=== PATIENT | male | born 1945 | race Caucasian/White ===

== ENCOUNTER 2018-01-17 14:01 | Emergency (ER) | payer OTHER ==
--- OUTSIDE RECORDS SUMMARY | 2018-01-17 14:04 | XMS REPORT | Clinical Summary ---
:1945 Author Organization [facility] Address [address] [place] [address] Care Team Providers Name Role Phone Britney Maloney MD Primary Care Provider Allergies Active Allergy Reactions Severity Noted Date Comments No Known Drug Allergies 02/26/2016 Current Medications Prescription Sig. Disp. Refills Start End Date Status Date allopurinol Take 100 mg by Active (ZYLOPRIM) 100 MG mouth 2 (two) tablet times a day. ALPRAZolam (XANAX) Take 0.5 mg by Active 0.5 MG tablet mouth nightly as needed for anxiety. aspirin (ECOTRIN) Take 81 mg by Active 81 MG enteric mouth daily. coated tablet calcium Take 1 tablet by Active carbonate-vitamin mouth 2 (two) D3 500 mg-200 unit times a day with per tablet meals. esomeprazole Take 40 mg by Active (NexIUM) 40 MG mouth daily before capsule breakfast. montelukast Take 10 mg by Active (SINGULAIR) 10 mg mouth nightly. tablet multivitamin Take 1 tablet by Active (THERAGRAN) tablet mouth daily. omega-3 acid ethyl Take 1 g by mouth Active esters (LOVAZA) 1 2 (two) times a gram capsule day. tamsulosin Take 0.4 mg by Active (FLOMAX) 0.4 mg mouth nightly. capsule,extended release 24hr thiamine 100 MG Take 100 mg by Active tablet mouth daily. ferrous sulfate Take 325 mg by Active 325 (65 FE) MG mouth daily with tablet breakfast. amLODIPine Take 5 mg by mouth Active (NORVASC) 5 MG daily. tablet metolazone Take 1 tablet (2.5 30 tablet 3 11/09/19 Active (ZAROXOLYN) 2.5 MG mg total) by mouth 6 19 tablet daily. Titrate to effect ONETOUCH ULTRA TEST 4 TIMES A DAY 400 strip 2 Active TEST strip test 7 strips blood sugar Patient testing 1 400 strip 3 Active diagnostic strips strips 4 times a 7 strip test day stripsIndications: History of heart transplant, Uncontrolled type 2 diabetes mellitus without complication, with long-term current use of insulin lancets (ONETOUCH Inject 1 Device 400 each 3 Active DELICA LANCETS) 33 into the skin 4 7 gauge (four) times a miscIndications: day. Uncontrolled diabetes mellitus type 2 without complications, unspecified fpc insulin use status predniSONE TAKE 1 & 1/2 45 tablet 11 02/06/20 Active (DELTASONE) 5 mg TABS BY MOUTH ONCE 7 18 tablet A DAY acetaminophen-code Take 1 tablet by 30 tablet 2 Active ine (TYLENOL WITH mouth nightly for 7 CODEINE #3) 300-30 90 days. DVT left mg per tablet leg pain for sleep potassium chloride Take 2 tablets (20 60 tablet 11 07/09/20 Active (K-DUR,KLOR-CON) mEq total) by 7 18 10 MEQ CR tablet mouth daily. gabapentin TAKE 1 CAPSULE 270 capsule 3 Active (NEURONTIN) 300 mg THREE TIMES DAILY 7 capsule NOVOLIN 70/30 100 INJECT 20 UNITS 40 mL 2 Active unit/mL (70-30) SUBCUTANEOUSLY IN 7 injection THE MORNING, AND 24 UNITS AT DINNER isosorbide TAKE 1 TABLET 90 tablet 3 Active mononitrate EVERY DAY 7 (IMDUR) 30 MG 24 hr tablet pravastatin TAKE 1 TABLET (80 90 tablet 3 Active (PRAVACHOL) 80 MG MG TOTAL) BY MOUTH 8 tablet EVERY EVENING. magnesium oxide Take 1 tablet (400 180 tablet 3 10/30/19 Active (MAG-OX) 400 mg mg total) by mouth 8 19 tablet 2 (two) times a day. mycophenolate TAKE 1 TABLET BY 180 tablet 3 11/03/19 Active (CELLCEPT) 500 mg MOUTH TWICE A DAY 8 19 tablet torsemide Take 1 tablet (20 180 tablet 3 11/16/19 Active (DEMADEX) 20 MG mg total) by mouth 8 19 tablet 2 (two) times a day. folic acid Take 1 tablet (1 90 tablet 3 11/16/19 Active (FOLVITE) 1 MG mg total) by mouth 8 19 tablet daily. labetalol Take 1 tablet (100 180 tablet 2 12/07/19 Active (NORMODYNE) 100 MG mg total) by mouth 8 19 tablet 2 (two) times a day. BD INSULIN SYRINGE USE TO INJECT 180 each 6 Active ULT-FINE II 0.5 mL TWICE DAILY 8 31 gauge x 02/09 syringeIndications : Uncontrolled type 2 diabetes mellitus without complication, with long-term current use of insulin tacrolimus Take 1 capsule 60 capsule 11 12/21/19 Active (PROGRAF) 0.5 MG (0.5 mg total) by 8 19 capsule mouth 2 (two) times a day. Z94.1 heart transplant potassium chloride Take 20 mEq by 07/09/20 Discontinued (K-DUR,KLOR-CON) mouth daily. 17 10 MEQ CR tablet predniSONE Take 5 mg by mouth 02/05/20 Discontinued (DELTASONE) 5 MG daily. 17 tablet labetalol Take 1 tablet (300 180 tablet 3 05/12/20 Discontinued (NORMODYNE) 300 MG mg total) by mouth 6 17 tablet 2 (two) times a day. labetalol Take 200 mg by 11/09/19 Discontinued (NORMODYNE) 200 MG mouth 2 (two) 18 tablet times a day. Pt. Takes 500 mg ( 200 mg tab + 300 mg tab) twice a day. labetalol Take 300 mg by 12/07/19 Discontinued (NORMODYNE) 300 MG mouth 2 (two) 18 tablet times a day. Pt. Takes 500 mg ( 200 mg tab + 300 mg tab) twice a day. magnesium oxide Take 400 mg by 10/25/19 Discontinued (MAG-OX) 400 mg mouth 2 (two) 18 tablet times a day. gabapentin Take 300 mg by 01/19/20 Discontinued (NEURONTIN) 300 MG mouth 2 (two) 17 capsule times a day. isosorbide Take 1 tablet (30 30 tablet 11 05/22/20 mononitrate mg total) by mouth 6 17 (IMDUR) 30 MG 24 daily. hr tablet blood sugar Patient testing 1 400 strip 5 01/19/20 Discontinued diagnostic strips strips 4 times a 6 17 strip test day stripsIndications: History of heart transplant, Uncontrolled type 2 diabetes mellitus without complication, with long-term current use of insulin lancets (ONETOUCH Inject 1 Device 400 each 3 01/19/20 Discontinued DELICA LANCETS) 33 into the skin 4 6 17 gauge (four) times a miscIndications: day. Uncontrolled diabetes mellitus type 2 without complications, unspecified steward/stewardess smoke room insulin use status pravastatin Take 1 tablet (20 30 tablet 6 08/11/20 Discontinued (PRAVACHOL) 20 MG mg total) by mouth 7 17 tablet every evening. blood sugar Test 4 times daily 400 strip 3 11/10/19 Discontinued diagnostic strips 7 18 (ONETOUCH VERIO) strip test stripsIndications: Uncontrolled type 2 diabetes mellitus without complication, with long-term current use of insulin pravastatin Take 1 tablet (80 90 tablet 3 09/30/19 Discontinued (PRAVACHOL) 80 MG mg total) by mouth 7 18 tablet every evening. insulin NPH and Per DR. Maloney 20 40 mL 3 09/02/20 Discontinued regular human am / 24 pm 7 17 (HumuLIN 70/30) 100 unit/mL (70-30) injection insulin Twice daily 200 each 6 12/18/19 Discontinued syringe-needle 7 18 U-100 (BD INSULIN SYRINGE ULTRA-FINE) 0.5 mL 31 gauge x 5/16 syringeIndications : Uncontrolled type 2 diabetes mellitus without complication, with long-term current use of insulin mycophenolate Take 1 tablet (500 180 tablet 3 11/01/19 Discontinued (CELLCEPT) 500 mg mg total) by mouth 7 18 tablet 2 (two) times a day. Z94.1 Heart Transplant 10/26/06 tacrolimus Take 1 capsule 60 capsule 11 12/21/19 Discontinued (PROGRAF) 0.5 MG (0.5 mg total) by 7 18 capsule mouth 2 (two) times a day. Z94.1 heart transplant folic acid Take 1 tablet (1 90 tablet 3 11/16/19 Discontinued (FOLVITE) 1 MG mg total) by mouth 7 18 tablet daily. torsemide Take 1 tablet (20 180 tablet 3 11/16/19 Discontinued (DEMADEX) 20 MG mg total) by mouth 7 18 tablet 2 (two) times a day. gabapentin Take 1 capsule 180 capsule 3 07/23/20 Discontinued (NEURONTIN) 300 mg (300 mg total) by 7 17 capsule mouth 3 (three) times a day. traMADol (ULTRAM) Take 1 tablet (50 60 tablet 2 05/31/20 50 mg tablet mg total) by mouth 7 17 every 12 (twelve) hours as needed for moderate pain for up to 90 days. apixaban (ELIQUIS) Take 1 tablet (2.5 60 tablet 2 08/11/20 Discontinued 2.5 mg tablet mg total) by mouth 7 17 2 (two) times a day for 90 days. sucralfate Take 10 mL (1 g 1200 mL 0 08/27/20 (CARAFATE) 100 total) by mouth 4 7 17 mg/mL suspension (four) times a day for 30 days. oseltamivir Take 1 capsule (75 20 capsule 0 11/27/19 (TAMIFLU) 75 MG mg total) by mouth 8 18 capsule 2 (two) times a day for 10 days. azithromycin Take 2 tablets 6 tablet 0 11/21/19 (ZITHROMAX Z-CHARLA) (500 mg) on Day 8 18 250 MG tablet 1, followed by 1 tablet (250 mg) once daily on Days 2 through 5. labetalol Take 1 tablet (200 180 tablet 3 12/07/19 Discontinued (NORMODYNE) 200 MG mg total) by mouth 8 18 tablet 2 (two) times a day. 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 Rapamune intolerance. Failed prednisone wean due to adrenal insufficiency FK 1 mg BID ; MMF 500 mg BID ; Prednisone 5 Failed Rapamune attempt DSA recd Date Type I Type II 11/08/2017 Cw5 3684 DP11 4641 10/12/2016 Cw5 3100 DP11 3154 11/15/2015 Cw5 4887 DP11 2993 Diabetes mellitus 02/26/2016 Overview: Diabetic/hyperlipidemia/osteopenia Followed by Dr. Maloney Gabapentin 300 mg TID for neuropathy Novolog Diabetic neuropathy 02/26/2016 Disorder of heart transplantation 02/26/2016 High Lipase Level in Serum 02/26/2016 Kidney disorder 02/26/2016 Low back pain 02/26/2016 Obstructive sleep apnea syndrome 02/26/2016 Pain of lower extremity 02/26/2016 Abnormal thyroid stimulating hormone (TSH) level 02/26/2016 Chronic kidney disease, stage V 11/14/2013 Overview: Demadex 20 daily Metolazone 2.5 -5 prn Disorder of endocrine system 11/14/2013 History of heart transplant 11/14/2013 Overview: 09/29/2006 Heart Transplant FK 1 mg Q 12; MMF 500 mg Q12hr; Prednisone 5 Does not tolerate Rapamune. Failed prednisone wean. HLD (hyperlipidemia) 11/14/2013 Overview: Diabetic/hyperlipidemia/osteopenia Fish Oil - omega 3 2000 BID Pravastain 80 Obesity, diabetes, and hypertension syndrome 11/14/2013 Adiposity 11/14/2013 Testicular hypofunction 11/14/2013 Uncontrolled type 2 diabetes mellitus 11/14/2013 Candidiasis of mouth 09/02/2012 Esophagitis 09/02/2012 Ulcer of esophagus 09/02/2012 Abdominal pain 03/03/2012 Candidiasis of esophagus 03/03/2012 Gastroesophageal reflux disease 03/03/2012 Encounters Date Type Specialty Care Team Description 01/13/2018 Orders Only Transplant Chase Roman, RN 12/20/2017 Refill Transplant Sabino, Pancho Refill PEREZ Hickey 12/17/2017 Refill Endocrinology Britney Maloney Uncontrolled type 2 MD Hany diabetes mellitus without complication, with long-term current use of insulin 12/17/2017 Refill Cardiology Donald Epstein Med Refill MD Chris 12/06/2017 Documentation Transplant Chase Roman RN 11/28/2017 Refill Cardiology Donald Epstein Med Refill MD Chris 11/23/2017 Documentation Transplant Samuel Barajasth 11/18/2017 Abstract Transplant Chase Roman RN 11/16/2017 Refill Transplant Sabino, Med Refill PEREZ Hickey 11/16/2017 Orders Only Transplant Chase Roman RN 11/12/2017 Refill Cardiology Donald Epstein Med Refill MD Chris 11/09/2017 Hospital Encounter Transplant Donald Epstein History of heart transplant (Primary Dx); MD Chris Chronic kidney disease, stage V; Diabetes mellitus due to underlying condition with chronic kidney disease, without long-term current use of insulin, unspecified CKD stage; Mixed hyperlipidemia; Essential hypertension; Long-term use of immunosuppressant medication; Diabetic autonomic neuropathy associated with type 2 diabetes mellitus; Pain of lower extremity, unspecified laterality 11/08/2017 Hospital Encounter Procedural Cardiology Donald Epstein Heart replaced by MD Chris transplant 11/08/2017 Hospital Encounter Procedural Cardiology Lucian Donald Heart replaced by flora Perez MD Complication of transplanted organ; 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 Hospital Encounter Radiology Donald Epstein Heart replaced by MD Chris transplant 11/08/2017 Hospital Encounter Radiology Lucian Donald Heart replaced by flora Perez MD Complication of transplanted organ; Essential hypertension; Long-term use of immunosuppressant medication; Metabolic syndrome; Hyperlipidemia associated with type 2 diabetes mellitus; Chronic fatigue; Infection; Bone loss 11/08/2017 Hospital Encounter Radiology Lucian Donald Heart replaced by transplant; MD Chris Complication of transplanted organ; Essential hypertension; Long-term use of immunosuppressant medication; Metabolic syndrome; Hyperlipidemia associated with type 2 diabetes mellitus; Chronic fatigue; Infection; Bone loss 11/08/2017 Hospital Encounter Radiology Lucian Donald Heart replaced by transplant; MD Chris Complication of transplanted organ; Essential hypertension; Long-term use of immunosuppressant medication; Metabolic syndrome; Hyperlipidemia associated with type 2 diabetes mellitus; Chronic fatigue; Infection 11/08/2017 Hospital Encounter Transplant Lucian Donald Heart replaced by transplantKuldip Perez MD Complication of transplanted organ; Essential hypertension; Long-term use of immunosuppressant medication; Metabolic syndrome; Hyperlipidemia associated with type 2 diabetes mellitus; Chronic fatigue; Infection; Bone loss; Prostate cancer screening; Cytomegalovirus infection, unspecified cytomegaloviral infection type 11/08/2017 Ancillary Orders Transplant Donald Epstein Heart replaced by transplant; MD Chris Complication of transplanted organ; 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 Orders Only Transplant Chase Roman, Heart replaced by art editor (Primary Dx) 11/08/2017 Ancillary Orders Radiology Donald Epstein Heart replaced by MD Chris transplant 11/04/2017 Refill Transplant Pan, Med Refill Nikkita 11/03/2017 Telephone Transplant Tyree Anetaharry, Med Refill MA 11/01/2017 Refill Cardiology Donald Epstein Refill MD Chris 10/25/2017 Refill Cardiology Donald Epstein Med Refill MD Chris 10/21/2017 Orders Only Transplant Chase Roman, Heart replaced by transplant (Primary Dx); RN Complication of transplanted organ; Cardiac allograft vasculopathy 09/30/2017 Refill Endocrinology Britney Maloney MD 09/23/2017 Orders Only Transplant Chase Roman, Heart replaced by transplant (Primary Dx); RN Complication of transplanted organ; Essential hypertension; Long-term use of immunosuppressant medication; Metabolic syndrome; Hyperlipidemia associated with type 2 diabetes mellitus; Chronic fatigue; Infection; Prostate cancer screening; Cytomegalovirus infection, unspecified cytomegaloviral infection type; Bone loss 09/16/2017 Refill Cardiology Donald Epstein Refminerva Perez MD 09/15/2017 Office Visit Gastroenterology Jaleesa, Epigastric pain ( Primary Dx); Gallito Moses Gastroesophageal reflux disease without esophagitis 09/02/2017 Refill Endocrinology Britney Maloney MD 08/26/2017 Documentation Gastroenterology Gallito Lazcano MD 08/23/2017 Hospital Encounter Gastroenterology Greg Spicer MD 08/23/2017 Anesthesia Event Gastroenterology Mark Madsen MD 08/23/2017 Procedure Pass Gastroenterology 08/23/2017 Surgery Gastroenterology STORMY Spicer with Bx Greg Adames MD 08/13/2017 Telephone Gastroenterology Gallito Lazcano MD 08/11/2017 Documentation Transplant Chase Roman EGD Cardiac Clearance RN 08/11/2017 Documentation Transplant Chase Roman, Error MELINDA 08/10/2017 Telephone Gastroenterology Gallito Lazcano MD 08/05/2017 Emergency Emergency Medicine Ayala, Chest pain, unspecified type (Primary Dx); [facility] Pastor, Chronic kidney disease, stage V 08/05/2017 Hospital Encounter Gastroenterology Greg Spicer MD Trachtenberg, Barry, MD 08/05/2017 Anesthesia Event Gastroenterology Dustin Street MD 08/05/2017 Procedure Pass Gastroenterology 08/02/2017 Orders Only Gastroenterology Gallito Lazcano MD 08/02/2017 Telephone Gastroenterology Antonieta Dumont LVN 08/02/2017 Documentation Transplant Chase Roman RN 08/02/2017 Telephone Transplant Davina Espinosa, Chest Pain MA 07/30/2017 Hospital Encounter Radiology Aaron Desai, Pain of upper abdomen 07/28/2017 Office Visit Gastroenterology Jaleesa, Pain of upper abdomen Gallito Moses (Primary Dx) 07/23/2017 Refill Endocrinology Britney Maloney MD 07/22/2017 Documentation Transplant Chase Roman, GI Referral - RN Gastrology 07/20/2017 Office Visit Endocrinology Britney Maloney Uncontrolled type 2 diabetes mellitus without complication, with long-term current use of insulin ( Primary Dx); MD Hany Mixed hyperlipidemia; Chronic kidney disease, stage V; History of heart transplant; Abnormal thyroid stimulating hormone (TSH) level; Diabetic autonomic neuropathy associated with type 2 diabetes mellitus; Testicular hypofunction; Vitamin D deficiency 07/09/2017 Orders Only Chase Willard RN 07/05/2017 Refill Cardiology Donald Epstein MD 03/03/2017 Documentation Chase Willard RN 03/02/2017 Hospital Encounter Transplant Donald Epstein Heart replaced by transplant (Primary Dx); MD Chris Chronic fatigue; Long-term use of immunosuppressant medication; Essential hypertension; Acute deep vein thrombosis (DVT) of tibial vein of left lower extremity 03/02/2017 Hospital Encounter Transplant Donald Epstein Long-term use of immunosuppressant medication; MD Chris CRF (chronic renal failure), stage 3 (moderate); Essential hypertension; Heart replaced by transplant 03/02/2017 Hospital Encounter Procedural Cardiology Minal, Deep vein thrombosis MD Yash (DVT) of both lower extremities, unspecified chronicity, unspecified vein 03/02/2017 Orders Only Transplant Chase Roman, Heart replaced by transplant (Primary Dx); RN Essential hypertension; CRF (chronic renal failure), stage 3 (moderate); Long-term use of immunosuppressant medication 02/26/2017 Orders Only Transplant Chase Roman, Deep vein thrombosis RN (DVT) of both lower extremities, unspecified chronicity, unspecified vein (Primary Dx) 02/26/2017 Documentation Transplant Chase Roman, RN 02/26/2017 Telephone Transplant Davis, Left leg circulation PEREZ Diaz issues 02/04/2017 Refill Cardiology Donald Epstein Refminerva Perez MD 01/18/2017 Office Visit Endocrinology Britney Maloney Uncontrolled type 2 diabetes mellitus without complication, with long-term current use of insulin ( Primary Dx); MD Hany Mixed hyperlipidemia; Chronic kidney disease, stage V; History of heart transplant; Abnormal thyroid stimulating hormone (TSH) level; Diabetic autonomic neuropathy associated with type 2 diabetes mellitus; Testicular hypofunction 01/18/2017 Documentation Transplant Chase Roman, RN after 01/16/2017 Family History Medical History Relation Name Comments Heart disease Brother Heart disease Father Heart disease Mother Relation Name Status Comments Brother Father Mother Social History Tobacco Use Types Packs/Day Years Used Date Never Smoker Smokeless Tobacco: Former User Alcohol Use Drinks/Week oz/Week Comments Yes occ Sex Assigned at Date Recorded Not on file Last Filed Vital Signs Vital Sign Reading Time Taken Blood Pressure 124/70 11/09/2017 11:29 AM [employer] Pulse 85 11/09/2017 11:29 AM [employer] Temperature 36.5 C (97.7 F) 11/09/2017 11:29 AM [employer] Respiratory Rate 17 11/09/2017 11:29 AM [employer] Oxygen Saturation 96% 11/09/2017 11:29 AM [employer] Inhaled Oxygen Concentration - - Weight 89.9 kg (198 lb 3.2 oz) 11/09/2017 11:29 AM [employer] Height 175.3 cm (5' 9") 11/09/2017 11:29 AM [employer] Body Mass Index 29.27 11/09/2017 11:29 AM [employer] Plan of Treatment Date Type Specialty Care Team Description 04/20/2018 Office Visit Endocrinology Britney Maloney MD [address] [place] [address] [phone] Health Maintenance Due Date Last Done Comments COLONOSCOPY 1993 ZOSTER VACCINE 2003 PNEUMOCOCCAL POLYSACCHARIDE VACCINE 2008 AGE 65 AND OVER PNEUMOCOCCAL-13 2008 INFLUENZA VACCINE 04/27/2018 OPHTHALMOLOGY EXAM 07/06/2018 07/06/2017, 06/15/2016, 06/27/2015 FOOT EXAM 07/20/2018 07/20/2017, 07/20/2017, 10/12/2016, Additional history exists Procedures Procedure Name Priority Date/Time Associated Diagnosis Comments ECHOCARDIOGRAM 2D Routine 11/08/2017 3:44 Heart replaced by Results for this COMPLETE W MMODE PM [employer] transplant procedure are in SPECTRAL COLOR DOPPLER the results (48169) section. CV STRESS TEST NUCLEAR Routine 11/08/2017 12:19 Heart replaced by Results for this CARDIO PM [employer] transplant procedure are in Complication of the results transplanted organ section. Cardiac allograft vasculopathy EGD with Bx 08/23/2017 8:00 Chronic GERD AM [employer] after 01/16/2017 Results Echocardiogram complete w contrast and 3D if needed (11/08/2017 3:44 PM) Specimen Performing Laboratory [facility] [address] [place] [address] Narrative Echocardiography Report [address] [address], [place] [address] Pat.Name:TAQUERIA JENKINS [facility].ID:[id number] .Date: 11/08/2017 Refer.MD:DONALD EPSTEIN MD Exam Time: 3:44:00 PMStudy Type:Routine Echo Height:70inWeight:193lb BSA: 2.06 m2 DOBAge:1945,72Y Sex: MALEBP:179/87 HR:82 bpm Sonogrphr: Nadira Rodriguez RDCS, RVT Pat. Stat.:OutpatientRoom:Treatment 3 Study Status:Final Echo Event ID:[id number] Order ID:[id number] Reason for Study:VAD and Cardiac Transplantation - Monitoring for rejection in a cardiac transplant recipient; 11 years post heart transplant History / Clinical:Arrhythmias, COPD, Heart Transplant Procedures:2D Echo, Colorflow Doppler, Intravenous Optison Contrast Race:C SUMMARY: LV EF is normal. RV systolic function is normal. LV filling pressure is normal. LV respiratory variation is present - unknown etiology. RV respiratory variation is present - unknown etiology. Estimated PA systolic pressure is 51 mmHg, assuming a mean RAP of 10 mmHg. FINDINGS: LV: LV size is normal. LV EF is normal. Overall wall motion is normal.Estimated EF is 60-64%. RV: RV size is normal. RV systolic function is normal. RV wall motionis normal. LA: LA volume is enlarged. RA: RA volume is enlarged. AO: Aortic root diameter is normal. ROSLYN: No pericardial effusion. AV: No structural AV abnormalities noted. MV: No structural MV abnormalities noted. PV: No structural PV abnormalities noted. A trace of pulmonic regurgitation. TV: No structural TV abnormalities noted. Mild tricuspid regurgitation Mascorro: LV relaxation is reduced, appropriate for age. LV filling pressureis normal. LV respiratory variation is present - unknownetiology. RV respiratory variation is present - unknownetiology. Other:Estimated PA systolic pressure is 51 mmHg, assuming a mean RAPof 10 mmHg. MEASUREMENTS: 2D Parasternal Long [place] Ao An2 cmLVPWd0.9 cm LVOT 1.8 cmLA Ds4.8 cm LVIDd4.7 cmIndex 2.3 cm/m Ao Rtd 3 cm Index1.5 cm/m LVIDs3 cm LV Wskr293.4 g(122-174) LV%fs 36.5 % LVM Index 82.2 g/m2 IVSd 1.2 cmRWT0.4 LA Sng Plane LA Area 29.5 cm2(8.8-23.4) LA Vol 89 ml Index43.2 ml/m LA LngAx 7.9 cm Signed 11/09/2017 06:19 PM Meaghan Feliciano M.D. Procedure Note Interface, Radiology Results In - 11/09/2017 6:19 PM [employer] Echocardiography Report [address] [place] [address] Pat.Name: TAQUERIA JENKINS Pat.ID: [id number] .Date: 11/08/2017 Refer.MD: DONALD EPSTEIN MD Exam Time: 3:44:00 PM Study Type:Routine Echo Height: 70in Weight: 193lb BSA: 2.06 m2 Age: 2 1945,72Y Sex: MALE BP: 179/87 HR: 82 bpm Sonogrphr: Nadira Rodriguez RDCS, RVT Pat. Stat.:Outpatient Room: Treatment 3 Study Status:Final Echo Event ID:[id number] Order ID: [id number] Reason for Study:VAD and Cardiac Transplantation - Monitoring for rejection in a cardiac transplant recipient; 11 years post heart transplant History / Clinical:Arrhythmias, COPD, Heart Transplant Procedures:2D Echo, Colorflow Doppler, Intravenous Optison Contrast Race: C SUMMARY: LV EF is normal. RV systolic function is normal. LV filling pressure is normal. LV respiratory variation is present - unknown etiology. RV respiratory variation is present - unknown etiology. Estimated PA systolic pressure is 51 mmHg, assuming a mean RAP of 10 mmHg. FINDINGS: LV: LV size is normal. LV EF is normal. Overall wall motion is normal. Estimated EF is 60-64%. RV: RV size is normal. RV systolic function is normal. RV wall motion is normal. LA: LA volume is enlarged. RA: RA volume is enlarged. AO: Aortic root diameter is normal. ROSLYN: No pericardial effusion. AV: No structural AV abnormalities noted. MV: No structural MV abnormalities noted. PV: No structural PV abnormalities noted. A trace of pulmonic regurgitation. TV: No structural TV abnormalities noted. Mild tricuspid regurgitation Mascorro: LV relaxation is reduced, appropriate for age. LV filling pressure is normal. LV respiratory variation is present - unknown etiology. RV respiratory variation is present - unknown etiology. Other: Estimated PA systolic pressure is 51 mmHg, assuming a mean RAP of 10 mmHg. MEASUREMENTS: 2D Parasternal Long [place] Ao An 2 cm LVPWd 0.9 cm LVOT 1.8 cm LA Ds 4.8 cm LVIDd 4.7 cm Index 2.3 cm/m Ao Rtd 3 cm Index 1.5 cm/m LVIDs 3 cm LV Mass 169.4 g (122-174) LV%fs 36.5 % LVM Index 82.2 g/m2 IVSd 1.2 cm RWT 0.4 LA Sng Plane LA Area 29.5 cm2 (8.8-23.4) LA Vol 89 ml Index 43.2 ml/m LA LngAx 7.9 cm Signed 11/09/2017 06:19 PM Meaghan Feliciano M.D. Cv exercise treadmill stress (no imaging) (11/08/2017 12:19 PM) Component Value Ref Range Resting HR 76 Resting BP 179 Peak MET Achieved 1.0 Protocol Name REGADENO Time in Exercise Phase 00:01:00 Max Systolic BP 181 Max Diastolic BP 86 Max Heart Rate 114 Max Predicted Heart Rate 146 Target HR Formula (220 - Age)*100% Test Indication S/P HEART TRANSPLANT Arrhy During Ex ECG Interp Before EX ECG Interp During Ex Ex Summary Comment Overall HR Response to Exercise Overall BP Response To Exercise Reason for Termination Stress Test Impression -Waveform interpreted in report associated with image study. No interpretation is provided as part of this Stress ECG report.-Electronically Signed By Lola BLANK, Justen Matias ([id number]), science editor Key Scott ([id number]) on 11/08/2017 1:36:13 PM Specimen Performing Laboratory [facility] MUSE [address] [place] [id number] Stress test with myocardial perfusion (11/08/2017 12:19 PM) Specimen Performing Laboratory [facility] [address] [place] [address] Narrative Nuclear Cardiology and Cardiac CT [address] [place] [address] Myocardial Perfusion Imaging Report Stress ECG tracings are available in [employer], [employer] and [employer] All ECG interpretations are included in this report Pat.Name:TAQUERIA JENKINS TPat.ID:[id number] .Date: 11/08/2017 Refer.MD:DONALD EPSTEIN MD Exam Time: 11:16:00 AM Study Type:Myocardial Perfusion Imaging Height:69inWeight:193lb BSA: 2.04 m2 DOBAge:1945,72Y Sex: MALEBP:179/87 HR:74 bpm Nuclear Tech:NOVA StraussMT, ARRT(N), Giselle Jackson, ARRT, NMTCB Pat. Stat.:OutpatientNuclear Event ID:[id number] Order ID:[id number] Reason for Study:Annual Post Heart Transplant Evaluation History / Clinical:Heart Transplant, Congestive heart failure, Coronary artery disease, Diabetes, Family history CAD, Hypertension Procedures:Stress only Race: Risk Factors:Diabetes, Cardiovascular Disease, Hypertension, Family history of cardiovascular disease Clinical Symptoms:Regadenoson Physical Exam:S1, S2 Surgery: Outpatient Medications:Amlodipine, Aspirin, Zaroxyln, Imdur, Demadex, Folic acid, Model 3, Thiamine, Insulin, Labetolol SUMMARY: SCINTIGRAPHIC RESULTS Perfusion Defect Size (% LV) 0 % Total 0 % Ischemia 0 % Scar Left Ventricular Perfusion Results There is normal tracer distribution throughout the myocardium during stress. Gated SPECT Results The post-stress left ventricular ejection fraction is 73 % with normal regional wall motion and left ventricular thickening.Left ventricular end-diastolic volume is 75 ml; end-systolic volume is20 ml. The left ventricle is of normal size at stress.The right ventricle is of normal size with normal wall motion. Conclusion Normal regadenoson Tc-99m tetrofosmin myocardial perfusion study. The left ventricular ejection fraction is normal.Thre is evidence of right ventricular hypertrophy. Comments Patients with a normal stress myocardial perfusion study have a low (< 1%) annual risk of cardiac or nonfatal myocardial infarction. Study Quality/Artifacts The study quality is good. The mild reduction in mid and basal inferior wall counts during stress is probably due to diaphragmatic and other soft tissue attenuation artifacts rather than coronary artery disease. Comparison to Previous Study None available. STRESS: Baseline Vital Signs:Intervention: Regadenoson 0.4mg/5ml IV over 10 seconds followed by radiotracer injection and 5ml saline flush ECG: Normal Sinus Rhythm HR:74 BP:179/87 Stress Test Results: Target HR: 124 Symptoms and Complications: Arrhythmias: None Terminated: As per Regadenoson protocol Symptoms:Palpitations, Shortness of breath Complications: None Conclusions: Normal heart rate response to pharmacological stress, Normal blood pressure response to pharmacological stress Stress ECG Interp: No ischemic ST segment change occurred with stress. Signed 11/08/2017 05:50 PM Justen Davila MD Procedure Note Interface, Radiology Results In - 11/08/2017 5:50 PM [facility] Nuclear Cardiology and Cardiac CT [address] [address] Myocardial Perfusion Imaging Report Stress ECG tracings are available in [employer], [employer] and [employer] All ECG interpretations are included in this report Pat.Name: TAQUERIA JENKINS Pat.ID: [id number] .Date: 11/08/2017 Refer.MD: DONALD EPSTEIN MD Exam Time: 11:16:00 AM Study Type:Myocardial Perfusion Imaging Height: 69in Weight: 193lb BSA: 2.04 m2 Age: 2 1945,72Y Sex: MALE BP: 179/87 HR: 74 bpm Nuclear Tech:Grecia Urias, SWITCHBOARD CLERK, ARRT(N), Giselle Jackson, ARRT, NMTCB Pat. Stat.:Outpatient Nuclear Event ID:[id number] Order ID: [id number] Reason for Study:Annual Post Heart Transplant Evaluation History / Clinical:Heart Transplant, Congestive heart failure, Coronary artery disease, Diabetes, Family history CAD, Hypertension Procedures:Stress only Race: Risk Factors:Diabetes, Cardiovascular Disease, Hypertension, Family history of cardiovascular disease Clinical Symptoms:Regadenoson Physical Exam:S1, S2 Surgery: Outpatient Medications:Amlodipine, Aspirin, Zaroxyln, Imdur, Demadex, Folic acid, Model 3, Thiamine, Insulin, Labetolol SUMMARY: SCINTIGRAPHIC RESULTS Perfusion Defect Size (% LV) 0 % Total 0 % Ischemia 0 % Scar Left Ventricular Perfusion Results There is normal tracer distribution throughout the myocardium during stress. Gated SPECT Results The post-stress left ventricular ejection fraction is 73 % with normal regional wall motion and left ventricular thickening. Left ventricular end-diastolic volume is 75 ml; end-systolic volume is 20 ml. The left ventricle is of normal size at stress. The right ventricle is of normal size with normal wall motion. Conclusion Normal regadenoson Tc-99m tetrofosmin myocardial perfusion study. The left ventricular ejection fraction is normal. Thre is evidence of right ventricular hypertrophy. Comments Patients with a normal stress myocardial perfusion study have a low (< 1%) annual risk of cardiac or nonfatal myocardial infarction. Study Quality/Artifacts The study quality is good. The mild reduction in mid and basal inferior wall counts during stress is probably due to diaphragmatic and other soft tissue attenuation artifacts rather than coronary artery disease. Comparison to Previous Study None available. STRESS: Baseline Vital Signs: Intervention: Regadenoson 0.4mg/5ml IV over 10 seconds followed by radiotracer injection and 5ml saline flush ECG: Normal Sinus Rhythm HR: 74 BP: 179/87 Stress Test Results: Target HR: 124 Symptoms and Complications: Arrhythmias: None Terminated: As per Regadenoson protocol Symptoms: Palpitations, Shortness of breath Complications: None Conclusions: Normal heart rate response to pharmacological stress, Normal blood pressure response to pharmacological stress Stress ECG Interp: No ischemic ST segment change occurred with stress. Signed 11/08/2017 05:50 PM Justen Davila MD XR Chest 2 Vw (11/08/2017 9:58 AM)Only the most recent of2 resultswithin the time period is included. Specimen Performing Laboratory [facility] [address] [place] [address] Narrative Study:XR CHEST 2 VW History: Z94.1 Heart transplant status, T86.90 Unspecified complication of unspecified transplanted organ and tissue, Cough COMPARISON: August 05, 2017 IMPRESSION: 2 views of the chest.There is no focal consolidation, pleural effusion or pneumothorax.Cardiac silhouette is normal.Visualized osseous structures arestable. [id number] Procedure Note Interface, Radiology Results Incoming - 11/08/2017 10:14 AM STORAGE BATTERY TESTER Study:XR CHEST 2 VW History: Z94.1 Heart transplant status, T86.90 Unspecified complication of unspecified transplanted organ and tissue, Cough COMPARISON: August 05, 2017 IMPRESSION: 2 views of the chest. There is no focal consolidation, pleural effusion or pneumothorax. Cardiac silhouette is normal. Visualized osseous structures are stable. [id number] Bone Density Peripheral (11/08/2017 9:58 AM) Specimen Performing Laboratory [facility] [address] [place] [address] Narrative EXAMINATION:BONE DENSITY PERIPHERAL CLINICAL HISTORY:Z94.1 Heart transplant status COMPARISON:10/12/2016 Impression: 1.See accession #IM [id number]. [id number] Procedure Note Hm Interface, Radiology Results Incoming - 11/08/2017 10:29 AM STORAGE BATTERY TESTER EXAMINATION: BONE DENSITY PERIPHERAL CLINICAL HISTORY: Z94.1 Heart transplant status COMPARISON: 10/12/2016 Impression: 1. See accession #[id number]. [id number] Bone Density (11/08/2017 9:56 AM) Specimen Performing Laboratory [facility] [address] [place] [address] Narrative EXAMINATION:BONE DENSITY CLINICAL HISTORY: 72 years Male Z94.1 Heart transplant status, T86.90 Unspecified complication of unspecified transplanted organ and tissue, osteoporosis by previous imiaging COMPARISON:10/12/2016 The results of this study expressed as bone mineral density (BMD) were as follows: AP spine (L1-L4) BMD: 1.653 g/cm2 T-Score: 3.4 Z-Score: 3.6 Percent change: +1.6 Dual Femur (Total Mean): BMD: 1.036 g/cm2 T-Score: -0.4 Z-Score:0.2 Percent change: -2.3 Left Forearm (Radius 33%): BMD: 0.946 g/cm2 T-Score: -0.4 Z-Score: 0.5 Percent change: +1.7 Trabecular Bone Score (TBS): TBS L1-L4: 1.472,(>1.350 normal, 1.200-1.350 partially degraded microarchitecture, <1.200 degraded microarchitecture) The 10 year probability of fracture, adjusted for FRAX: Major Osteoporotic Fracture: 8.4% Hip Fracture:2.7% Femur FRAX: Risk factors: Chronic glucocorticoid 10 year probability of fracture: 1.Major osteoporotic: 10.1% 2.Hip: 3.1% 3.Based on femur left neck BMD Impression: 1.WHO classification normal based on T-scores above. Notes: *The world health organization (WHO) has classified the patient's T-score as follows: At or above (-1) as normal (-1) to (-2.5) as low (osteopenia) At or below (-2.5) as abnormally low (osteoporosis, increased fracture risk) For premenopausal women, men under the age 50 years, and children the WHO classification does not apply. In these individuals please assess bone mineral density with Z scores for each skeletal site examined. Z scores above -2.0: Within expected range for age. Z scores lower than -2.0:Low bone density for age. The TBS is derived from the texture of the DEXA image and has been shown to be related to bone microarchitecture and fracture risk. This data provides information independent of BMD value; is used as a complement to the data obtained from the DEXA analysis and the clinical examination. The TBS can assist the healthcare professional in assessment of fracture risk and in monitoring the effect of treatments on patient over time. [id number]-[id number] Procedure Note Hm Interface, Radiology Results Incoming - 11/08/2017 10:28 AM STORAGE BATTERY TESTER EXAMINATION: BONE DENSITY CLINICAL HISTORY: 72 years Male Z94.1 Heart transplant status, T86.90 Unspecified complication of unspecified transplanted organ and tissue, osteoporosis by previous imiaging COMPARISON: 10/12/2016 The results of this study expressed as bone mineral density (BMD) were as follows: AP spine (L1-L4) BMD: 1.653 g/cm2 T-Score: 3.4 Z-Score: 3.6 Percent change: +1.6 Dual Femur (Total Mean): BMD: 1.036 g/cm2 T-Score: -0.4 Z-Score: 0.2 Percent change: -2.3 Left Forearm (Radius 33%): BMD: 0.946 g/cm2 T-Score: -0.4 Z-Score: 0.5 Percent change: +1.7 Trabecular Bone Score (TBS): TBS L1-L4: 1.472, (>1.350 normal, 1.200-1.350 partially degraded microarchitecture, <1.200 degraded microarchitecture) The 10 year probability of fracture, adjusted for FRAX: Major Osteoporotic Fracture: 8.4% Hip Fracture: 2.7% Femur FRAX: Risk factors: Chronic glucocorticoid 10 year probability of fracture: 1. Major osteoporotic: 10.1% 2. Hip: 3.1% 3. Based on femur left neck BMD Impression: 1. WHO classification normal based on T-scores above. Notes: *The world health organization (WHO) has classified the patient's T-score as follows: At or above (-1) as normal (-1) to (-2.5) as low (osteopenia) At or below (-2.5) as abnormally low (osteoporosis, increased fracture risk) For premenopausal women, men under the age 50 years, and children the WHO classification does not apply. In these individuals please assess bone mineral density with Z scores for each skeletal site examined. Z scores above -2.0: Within expected range for age. Z scores lower than -2.0: Low bone density for age. The TBS is derived from the texture of the DEXA image and has been shown to be related to bone microarchitecture and fracture risk. This data provides information independent of BMD value; is used as a complement to the data obtained from the DEXA analysis and the clinical examination. The TBS can assist the healthcare professional in assessment of fracture risk and in monitoring the effect of treatments on patient over time. [id number] US Abdomen Complete (11/08/2017 9:00 AM) Specimen Performing Laboratory [address] [address] Narrative EXAM: US ABDOMEN COMPLETE CLINICAL DATA:Z94.1 Heart transplant status, T86.90 Unspecified complication of unspecified transplanted organ and tissue, ABDOMINAL PAIN COMPARISON: Abdominal ultrasound dated October 12, 2016 FINDINGS: PANCREAS:The visualized portions of the pancreas are within normal limits. LIVER:The liver demonstrates normal echogenicity without focal mass or intrahepatic biliary ductal dilatation. GALLBLADDER:has been surgically removed. CBD:6.5 mm, within normal limits. MPV:Doppler evaluation of the portal vein demonstrates normal hepatopedal flow. measuring 1.2 cm. SPLEEN: The spleen is homogeneous and not enlarged [id number] x 3.9 x 3.8 cm. RIGHT KIDNEY: There is increased echogenicity of renal cortices. There is no evidence of mass, calculi, or hydronephrosis.The right kidney measures 11.5 x 4.9 x 4.7 cm. There is a simple cyst measuring 12 mm largest diameter. LEFT KIDNEY:There is increased echogenicity of renal cortices. There is no evidence of mass, calculi, or hydronephrosis. The left kidney measures 13.1 x 5.3 x 4.8 cm. AORTA:Atherosclerotic changes. There is moderate dilatation of right common iliac artery measuring 3 cm. IVC:The visualized portions of the inferior vena cava are unremarkable. IMPRESSION: 1.Negative for acute intra-abdominal process. 2. There is a simple cyst seen within the right kidney measuring 12 mm. 3. There is a cyst seen within the right liver lobe measuring 3.5 cm. 4. Increased echogenicity of renal cortices suggestive for chronic medical kidney disease. Please correlate to renal function tests. 5. Atherosclerotic changes of the aorta. 6. Moderate dilatation of right common iliac artery measuring approximately 3 cm. [id number] Procedure Note Hm Interface, Radiology Results Incoming - 11/08/2017 11:48 AM STORAGE BATTERY TESTER EXAM: US ABDOMEN COMPLETE CLINICAL DATA: Z94.1 Heart transplant status, T86.90 Unspecified complication of unspecified transplanted organ and tissue, ABDOMINAL PAIN COMPARISON: Abdominal ultrasound dated October 12, 2016 FINDINGS: PANCREAS: The visualized portions of the pancreas are within normal limits. LIVER: The liver demonstrates normal echogenicity without focal mass or intrahepatic biliary ductal dilatation. GALLBLADDER: has been surgically removed. CBD: 6.5 mm, within normal limits. MPV: Doppler evaluation of the portal vein demonstrates normal hepatopedal flow. measuring 1.2 cm. SPLEEN: The spleen is homogeneous and not enlarged measuring 12.2 x 3.9 x 3.8 cm. RIGHT KIDNEY: There is increased echogenicity of renal cortices. There is no evidence of mass, calculi, or hydronephrosis. The right kidney measures 11.5 x 4.9 x 4.7 cm. There is a simple cyst measuring 12 mm largest diameter. LEFT KIDNEY: There is increased echogenicity of renal cortices. There is no evidence of mass, calculi, or hydronephrosis. The left kidney measures 13.1 x 5.3 x 4.8 cm. AORTA: Atherosclerotic changes. There is moderate dilatation of right common iliac artery measuring 3 cm. IVC: The visualized portions of the inferior vena cava are unremarkable. IMPRESSION: 1. Negative for acute intra-abdominal process. 2. There is a simple cyst seen within the right kidney measuring 12 mm. 3. There is a cyst seen within the right liver lobe measuring 3.5 cm. 4. Increased echogenicity of renal cortices suggestive for chronic medical kidney disease. Please correlate to renal function tests. 5. Atherosclerotic changes of the aorta. 6. Moderate dilatation of right common iliac artery measuring approximately 3 cm. [id number] Urinalysis screen and microscopy, with reflex to culture (11/08/2017 7:07 AM) Component Value Ref Range Specimen site Clean catch Color, UA Straw Appearance, UA Clear Specific gravity, UA 1.013 1.001 - 1.035 pH, UA 7.0 5.0 - 8.5 Protein, UA 2+ (A) Negative Glucose, UA Negative Negative Ketones, UA Negative Negative Bilirubin, UA Negative Negative Blood, UA Negative Negative Nitrite, UA Negative Negative Urobilinogen, UA <2.0 <2.0 Leukocyte esterase, UA Negative Negative WBC, UA <1 0 - 1 /HPF RBC, UA None seen 0 - 1 /HPF Bacteria, UA None seen None seen Yeast, UA None seen Yeast with pseudohyphae, UA None seen Hyaline casts, UA 10 /LPF Specimen Performing Laboratory Urine [facility] DEPARTMENT OF PATHOLOGY AND GENOMIC MEDICINE [address] [place] [address] Microalbumin, urine, random (11/08/2017 7:07 AM) Component Value Ref Range Total volume, urine No volume mL Urine creatinine concentration 96 mg/dL Urine microalbumin concentration 26.1 mg/dL Urine microalbumin/creatinine ratio 272 (H) 0 - 30 mg/g Specimen Performing Laboratory Urine [facility] DEPARTMENT OF PATHOLOGY AND GENOMIC MEDICINE [address] [place] [address] Cytomegalovirus by PCR (11/08/2017 7:07 AM) Component Value Ref Range Cytomegalovirus by PCR Not-Detected Not-Detected IU/mL Cytomegalovirus by PCR See link below for PDF Lab ReportComment: Specimen Performing Laboratory [facility] DEPARTMENT OF PATHOLOGY AND GENOMIC MEDICINE [address] [place] [address] Estimated GFR (11/08/2017 7:07 AM)Only the most recent of3 resultswithin the time period is included. Component Value Ref Range GFR Non Af Amer 33 (A) mL/min/1.73 m2 GFR Af Amer 40 (A) mL/min/1.73 m2 Comment: Chronic kidney disease: <60 mL/min/1.73m2 Kidney failure: <15 mL/min/1.73m2 The estimated GFR is calculated from the IDMS-traceable Modification of Diet in Renal Disease Equation. The accuracy of the calculation is poor when the creatinine is normal. Calculated values >90 mL/min/1.73m2 are not reported. This equation has not been validated in children (<18 years), women, the elderly (>70 years), or ethnic groups other than Caucasians and Americans. Specimen Performing Laboratory Plasma specimen [facility] DEPARTMENT OF PATHOLOGY AND [facility] MEDICINE [address] [place] [address] Donor specific antibody (11/08/2017 7:07 AM) Component Value Ref Range Donor specific antibody See link below for PDF Lab Report Specimen Performing Laboratory [facility] DEPARTMENT OF PATHOLOGY AND [address] [address] FK506 level (11/08/2017 7:07 AM)Only the most recent of2 resultswithin the time period is included. Component Value Ref Range FK506 level 5.9 ng/mL Comment: Therapeutic range 5-20 ng/mL for 12 hour trough. The range varies depending on the organ transplanted, time after transplantation and co-administered immunosuppressant therapies. Please use clinical judgment to interpret test result. Test performed using [employer] chemiluminescent microparticle immunoassay for Tacrolimus on the [employer] i System. Specimen Performing Laboratory Blood [facility] PATHOLOGY [address] [address] Troponin (11/08/2017 7:07 AM)Only the most recent of3 resultswithin the time period is included. Component Value Ref Range Troponin <0.30 0.00 - 0.30 ng/mL Comment: 0.30 - 1.49 ng/mlMay indicate increased risk of acute coronary syndrome. >=1.5 ng/mlConsistent with acute myocardial infarction. The diagnostic value of a single normal or non-diagnostic result is questionable.Serial samples at 2-6 hour intervals are required to rule out acute myocardial injury. Specimen Performing Laboratory Plasma specimen [facility] DEPARTMENT PATHOLOGY AND [address] [address] Hepatitis acute panel (11/08/2017 7:07 AM) Component Value Ref Range Hepatitis A IgM Non-reactive Non-reactive Hepatitis B core IgM Non-reactive Non-reactive Hepatitis B surface Ag Non-reactive Non-reactive Hepatitis C Ab Non-reactive Non-reactive Specimen Performing Laboratory Blood [facility] OF PATHOLOGY AND [facility] MEDICINE [address] [place] [address] Vitamin D 25 hydroxy level (11/08/2017 7:07 AM) Component Value Ref Range Vitamin D, 25-hydroxy 45.3 30.0 - 150.0 ng/mL Comment: This assay reports the sum of 25-hydroxy vitamin D3 and 25-hydroxy vitamin D2. Reference range: 0-17 years: Deficiency: less than 20ng/mL Optimum level: greater than or equal to 20 ng/mL. 18 years and older: Deficiency: less than 20ng/mL Insufficiency: 20-29 ng/mL Optimum Level: 30-80 ng/mL The assay reportable range is 3.4155.9 ng/mL. Levels higher than 150 ng/mL may be associated with toxicity. If toxicity is clinically suspected and the reported result is >155.9 ng/mL,contact lab for alternative methods to obtain a definitivelevel. If separate quantitation of 25-hydroxy vitamin D3 and 25-hydroxy vitamin D2 is needed, please contact lab for alternative methods. Specimen Performing Laboratory Blood [facility] DEPARTMENT OF PATHOLOGY AND GENOMIC MEDICINE [address] [place] [address] HIV 1, 2 antibody (11/08/2017 7:07 AM) Component Value Ref Range HIV 1, 2 antibody Non-reactive Non-reactive Comment: Starting from December 24 2015, 4th generation HIV screening and confirmation assays are in use at [facility] [facility], consistent with the CDC-recommended algorithm. The screening test detects antibodies to HIV-1, HIV-2 and the p24 antigen. Positive screening results will be automatically reflexed to a HIV-1/HIV-2 differentiation assay. Indeterminant HIV-1 results will be further automatically reflexed to a nucleic acid test for detection of acute infection. Western blot will no longer be performed as a confirmation test. For a quick reference guide on the testing algorithm, please refer to: http://stacks.cdc.gov/view/cdc/16685. Specimen Performing Laboratory Blood [facility] DEPARTMENT OF PATHOLOGY AND GENOMIC MEDICINE [address] [place] [address] Prothrombin time with INR (11/08/2017 7:07 AM)Only the most recent of2 resultswithin the time period is included. Component Value Ref Range Prothrombin time 14.4 12.0 - 15.0 sec INR 1.1 Comment: The International Normalized Ratio (INR) is a therapeutic monitoring tool for patients who are stable on oral anticoagulant therapy. An INR of 2.0-3.0 is suggested for deep vein thrombosis/pulmonary embolism. Specimen Performing Laboratory Blood [facility] DEPARTMENT OF PATHOLOGY AND [facility] MEDICINE [address] [place] [address] CBC with platelet and differential (11/08/2017 7:07 AM)Only the most recent of3 resultswithin the time period is included. Component Value Ref Range WBC 5.98 4.50 - 11.00 k/uL RBC 4.31 (L) 4.40 - 6.00 m/uL HGB 13.6 (L) 14.0 - 18.0 g/dL HCT 42.6 41.0 - 51.0 % MCV 98.8 82.0 - 100.0 fL MCH 31.6 27.0 - 34.0 pg MCHC 31.9 31.0 - 37.0 g/dL RDW - SD 46.9 37.0 - 55.0 fL MPV 11.1 8.8 - 13.2 fL Platelet count 137 (L) 150 - 400 k/uL Nucleated RBC 0.00 /100 WBC Neutrophils 64.8 39.0 - 69.0 % Lymphocytes 22.9 (L) 25.0 - 45.0 % Monocytes 10.9 (H) 0.0 - 10.0 % Eosinophils 0.8 0.0 - 5.0 % Basophils 0.3 0.0 - 1.0 % Immature granulocytes 0.3Comment: "Immature granulocytes" 0.0 - 1.0 % (promyelocytes, myelocytes, metamyelocytes) Specimen Performing Laboratory Blood [facility] DEPARTMENT OF PATHOLOGY AND [address] [address] Urine culture (11/08/2017 7:07 AM) Component Value Ref Range Urine culture SEE COMMENTComment: Bacteriuria screen negative. Specimen Performing Laboratory [facility] DEPARTMENT OF PATHOLOGY AND GENOMIC MEDICINE [address] [place] [address] Uric acid level (11/08/2017 7:07 AM) Component Value Ref Range Uric acid 5.1 3.4 - 7.0 mg/dL Specimen Performing Laboratory Plasma specimen [facility] DEPARTMENT OF PATHOLOGY AND GENOMIC MEDICINE [address] [place] [address] T3, free (11/08/2017 7:07 AM) Component Value Ref Range T3, free 3.3 2.4 - 4.2 pg/mL Comment: REFERENCE INTERVAL: Triiodothyronine, Free (Free T3) Access complete set of age- and/or gender-specific reference intervals for this test in the [facility] ([employer]). Performed by [employer], [address] [place] [address] www.[employer], Tommy Mckenzie MD - Lab. Director Specimen Performing Laboratory Serum [facility] [address] [place] [address] T3 (11/08/2017 7:07 AM) Component Value Ref Range T3 128 80 - 200 ng/dL Specimen Performing Laboratory Plasma specimen [facility] DEPARTMENT [facility]Y [facility] [address] [place] [address] Thyroid stimulating hormone (11/08/2017 7:07 AM) Component Value Ref Range TSH 3.37 0.27 - 4.20 uIU/mL Specimen Performing Laboratory Plasma specimen [facility] DEPARTMENT [facility]Y [facility] [address] [place] [address] T4 (11/08/2017 7:07 AM) Component Value Ref Range T4 6.4 4.5 - 11.7 ug/dL Specimen Performing Laboratory Plasma specimen [facility] DEPARTMENT [facility]Y [facility] [address] [place] [address] Testosterone (11/08/2017 7:07 AM) Component Value Ref Range Testosterone 195 193 - 740 ng/dL Specimen Performing Laboratory Plasma specimen [facility] DEPARTMENT OF PATHOLOGY AND [facility] MEDICINE [address] [place] [address] Prostate specific antigen (11/08/2017 7:07 AM) Component Value Ref Range PSA 1.2 0.0 - 4.0 ng/mL Comment: The KEESHA 8000 PSA immunoassay was used. Results obtained with different assay methods or kits should not be used interchangeably and may be different. Specimen Performing Laboratory Plasma specimen [facility] DEPARTMENT PATHOLOGY [facility] GENOMIC MEDICINE [address] [place] [address] Phosphorus level (11/08/2017 7:07 AM)Only the most recent of2 resultswithin the time period is included. Component Value Ref Range Phosphorus 3.2 2.4 - 4.5 mg/dL Specimen Performing Laboratory Plasma specimen [facility] DEPARTMENT OF PATHOLOGY [facility] GENOMIC MEDICINE [address] [place] [address] Parathyroid hormone (11/08/2017 7:07 AM) Component Value Ref Range PTH 99 (H) 15 - 65 pg/mL Specimen Performing Laboratory Blood [facility] DEPARTMENT PATHOLOGY AND [address] [address] B natriuretic peptide (11/08/2017 7:07 AM)Only the most recent of2 resultswithin the time period is included. Component Value Ref Range BNP 82 0 - 100 pg/mL Specimen Performing Laboratory Blood [facility] PATHOLOGY AND [address] [address] Magnesium level (11/08/2017 7:07 AM)Only the most recent of2 resultswithin the time period is included. Component Value Ref Range Magnesium 2.0 1.6 - 2.4 mg/dL Specimen Performing Laboratory Plasma specimen [facility] PATHOLOGY [address] [address] LDH (11/08/2017 7:07 AM)Only the most recent of2 resultswithin the time period is included. Component Value Ref Range LDH 179 87 - 225 U/L Specimen Performing Laboratory Plasma specimen [address] [address] Hemoglobin A1c (11/08/2017 7:07 AM) Component Value Ref Range Hemoglobin A1C 6.4 (H) 4.0 - 5.6 % Comment: HbA1c cutoffs for diagnosing diabetes: 4.0% - 5.6%=normal 5.7% - 6.4%=increased risk for diabetes (prediabetes) >=6.5%=diabetes Goals for glycemic control (ADA 2016) < 7.0%Target for non adults with diabetes. More or less stringent targets may be appropriate for individual patients. <7.5% Target for Children and adolescents with type 1 diabetes. Specimen Performing Laboratory Blood [facility] PATHOLOGY AND [address] [address] Ionized calcium (11/08/2017 7:07 AM) Component Value Ref Range pH 7.38 Ionized calcium 1.24 1.11 - 1.32 mmol/L Specimen Performing Laboratory Plasma specimen [address] [address] Hepatic function panel (11/08/2017 7:07 AM)Only the most recent of2 resultswithin the time period is included. Component Value Ref Range Albumin 3.9 3.5 - 5.0 g/dL Total bilirubin 0.5 0.0 - 1.2 mg/dL Bilirubin direct <0.2 0.0 - 0.3 mg/dL Alkaline phosphatase 60 40 - 129 U/L Protein 8.0 6.3 - 8.3 g/dL Comment: 4.6-7.0 g/dL 1 week 4.4-7.6 g/dL 7 months-1year5.1-7.3 g/dL 1-2 years5.6-7.5 g/dL >3 years6.0-8.0 g/dL 18-150 6.3-8.3 g/dL ALT 10 5 - 50 U/L AST 16 10 - 50 U/L Specimen Performing Laboratory Plasma specimen [facility] DEPARTMENT OF PATHOLOGY AND GENOMIC MEDICINE [address] [place] [address] Lipid panel (11/08/2017 7:07 AM) Component Value Ref Range Cholesterol 180 <200 mg/dL Triglycerides 208 (H) <150 mg/dL HDL cholesterol 47 >40 mg/dL LDL cholesterol 103 (H)Comment: Result obtained by direct <100 mg/dL LDL measurement Lipid panel interpretation SeeBelow Comment: Total Cholesterol (mg/dL) <200 Desirable [phone] >=240High Triglycerides (mg/dL) <150 Normal [id number]-[id number] 200-499High >=500Very high HDL Cholesterol (mg/dL) <40Low (male) <40Low (female) LDL Cholesterol (mg/dL) <100 Optimal 100-129Near or above optimal [id number]-nssa 160-189High >=190Very high Risk Catergories that modify LDL goals. Risk CatergoriesLDL goal (mg/dL) CHD and CHD risk equivalent<100 (10-year risk >20%) Multiple (2+) risk factors <130 (10-year risk=<20%) 0-1 risk factors <160 (<10-year risk) Defining levels of lipids in metabolic syndrome Triglycerides>=150 mg/dL HDL Cholesterol Men<40 mg/dL Women<40 mg/dL Non-HDL cholesterol is a second target for therapy in persons with high triglycerides (>=200 mg/dL) Specimen Performing Laboratory Plasma specimen [facility] DEPARTMENT OF PATHOLOGY AND GENOMIC MEDICINE [address] [place] [address] Basic metabolic panel (11/08/2017 7:07 AM)Only the most recent of2 resultswithin the time period is included. Component Value Ref Range Sodium 143 135 - 148 mEq/L Potassium 4.3 3.5 - 5.0 mEq/L Chloride 97 (L) 98 - 112 mEq/L CO2 33 (H) 24 - 31 mEq/L Anion gap 13 7 - 15 mEq/L Comment: Starting from December , anion gap calculation no longer incorporates potassium. Please note the change. BUN 39 (H) 8 - 23 mg/dL Creatinine 2.0 (H) 0.7 - 1.2 mg/dL Glucose 93 65 - 99 mg/dL Calcium 10.5 (H) 8.8 - 10.2 mg/dL Specimen Performing Laboratory Plasma specimen [facility] DEPARTMENT OF PATHOLOGY AND GENOMIC MEDICINE [address] [place] [address] Surgical pathology request (08/23/2017 10:50 AM) Component Value Ref Range Surgical pathology report See link below for PDF Lab Report Result status This is Final Report to [id number] Specimen Performing Laboratory [facility] DEPARTMENT OF PATHOLOGY AND GENOMIC MEDICINE [address] [place] [address] POC glucose (08/23/2017 7:49 AM)Only the most recent of3 resultswithin the time period is included. Component Value Ref Range POC glucose 104 (H) 65 - 99 mg/dL Comment: [facility] Notified RN TM Notified Meter ID: [id number] Automatic Mold Sander: Kerry Leos Specimen Performing Laboratory [facility] DEPARTMENT OF PATHOLOGY AND GENOMIC MEDICINE [address] [place] [address] ECG ED Preliminary Interpretation - NOT AN ORDER (08/19/2017 1:53 PM) MOSHE Sanabria 08/18/20173:14 PM ECG ED Preliminary Interpretation - Not an Order Performed by: JULIET GARCIAS Authorized by: TIMO AYALAH ECG reviewed by ED Physician in the absence of a supplier diversity director: yes Previous ECG: Previous ECG:Compared to current Similarity:No change Interpretation: Interpretation: normal Rate: ECG rate:73 ECG rate assessment: normal Rhythm: Rhythm: sinus rhythm Ectopy: Ectopy: none QRS: QRS axis:Normal QRS intervals:Normal Conduction: Conduction: normal ST segments: ST segments:Normal T waves: T waves: normal Lipase level (08/05/2017 2:00 PM) Component Value Ref Range Lipase 24 13 - 60 U/L Specimen Performing Laboratory Plasma specimen [facility] DEPARTMENT OF PATHOLOGY AND [address] [address] Amylase level (08/05/2017 2:00 PM) Component Value Ref Range Amylase 23 13 - 53 U/L Specimen Performing Laboratory Plasma specimen [facility] DEPARTMENT OF PATHOLOGY AND [facility] MEDICINE [address] [place] [address] Comprehensive metabolic panel (08/05/2017 2:00 PM) Component Value Ref Range Sodium 146 135 - 148 mEq/L Potassium 4.3 3.5 - 5.0 mEq/L Chloride 101 98 - 112 mEq/L CO2 30 24 - 31 mEq/L Anion gap 15 7 - 15 mEq/L Comment: Starting from December , anion gap calculation no longer incorporates potassium. Please note the change. BUN 38 (H) 8 - 23 mg/dL Creatinine 2.0 (H) 0.7 - 1.2 mg/dL Glucose 112 (H) 65 - 99 mg/dL Calcium 10.0 8.8 - 10.2 mg/dL Protein 7.8 6.3 - 8.3 g/dL Comment: [place] 4.6-7.0 g/dL 1 week 4.4-7.6 g/dL 7 months-1year5.1-7.3 g/dL 1-2 years5.6-7.5 g/dL >3 years6.0-8.0 g/dL 18-150 6.3-8.3 g/dL Albumin 4.1 3.5 - 5.0 g/dL A/G ratio 1.1 0.7 - 3.8 Alkaline phosphatase 92 40 - 129 U/L AST 31 10 - 50 U/L ALT 38 5 - 50 U/L Total bilirubin 0.8 0.0 - 1.2 mg/dL Specimen Performing Laboratory Plasma specimen [facility] DEPARTMENT OF PATHOLOGY AND [address] [address] ECG 12 lead (08/05/2017 11:15 AM) Component Value Ref Range Ventricular rate 73 Atrial rate 73 PA interval 154 QRSD interval 86 QT interval 384 QTC interval 423 P axis 1 34 QRS axis 1 70 T wave axis 81 EKG impression Normal sinus rhythm-Normal ECG-In automated comparison with ECG of 02-MAR-2017 08:40,-No significant change was found- Specimen Performing Laboratory [facility] MUSE [address] [place] [address] CT Abdomen Wo Contrast (07/30/2017 4:45 PM) Specimen Performing Laboratory [facility] [address] [place] [address] Narrative EXAMINATION:CT ABDOMEN WO CONTRAST CLINICAL HISTORY:R10.10 Upper abdominal painunspecified, Exclude presence of bowel loops in the ventral hernia (pt with intermittent epigastric pain and a large ventral hernia) TECHNIQUE:Multiple axial images of the abdomen were obtained without intravenous contrast. Sagittal and coronal computerized reformatted images were also obtained. The lack of intravenous contrast reduces the sensitivity of detecting solid organ disease.CT imaging was performed with iterative reconstruction technique and/or automated exposure control to reduce radiation dose. COMPARISON:11/26/2010 FINDINGS: Abdomen: Heart size is upper limits normal. There is mild left hemidiaphragmatic elevation. Lung bases are unremarkable. Hypodensity in the right hepatic lobe is probably a cyst. It measures 2.5 cm. The patient is status post cholecystectomy. Pancreas, spleen, adrenals, and kidneys are normal in appearance. Atherosclerotic calcifications of the aorta are present. There is an IVC filter. 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 The left common iliac artery is also ectatic to 1.9 cm. Bilateral atherosclerotic changes are present. Suspicious osseous lesion is not seen. No definite ventral hernia is seen. A small right lateral questionable muscular defect is seen without bulging of fat through it or evidence bowel within. Images are not carried through to the pelvis. IMPRESSION: No evidence ventral hernia seen on CT abdomen. Images are not carried through to the pelvis. Very tiny questionable area of muscular defect in the far right lateral abdomen at the level of the upper pelvis without evidence of herniated fat or bowel. [facility]-[id number] Procedure Note Interface, Radiology Results Incoming - 07/30/2017 5:40 PM CDT EXAMINATION: CT ABDOMEN WO CONTRAST CLINICAL HISTORY: R10.10 Upper abdominal pain unspecified, Exclude presence of bowel loops in the ventral hernia (pt with intermittent epigastric pain and a large ventral hernia) TECHNIQUE:Multiple axial images of the abdomen were obtained without intravenous contrast. Sagittal and coronal computerized reformatted images were also obtained. The lack of intravenous contrast reduces the sensitivity of detecting solid organ disease.CT imaging was performed with iterative reconstruction technique and/ or automated exposure control to reduce radiation dose. COMPARISON: 11/26/2010 FINDINGS: Abdomen: Heart size is upper limits normal. There is mild left hemidiaphragmatic elevation. Lung bases are unremarkable. Hypodensity in the right hepatic lobe is probably a cyst. It measures 2.5 cm. The patient is status post cholecystectomy. Pancreas, spleen, adrenals, and kidneys are normal in appearance. Atherosclerotic calcifications of the aorta are present. There is an IVC filter. 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 The left common iliac artery is also ectatic to 1.9 cm. Bilateral atherosclerotic changes are present. Suspicious osseous lesion is not seen. No definite ventral hernia is seen. A small right lateral questionable muscular defect is seen without bulging of fat through it or evidence bowel within. Images are not carried through to the pelvis. IMPRESSION: No evidence ventral hernia seen on CT abdomen. Images are not carried through to the pelvis. Very tiny questionable area of muscular defect in the far right lateral abdomen at the level of the upper pelvis without evidence of herniated fat or bowel. [facility]-[id number] POC glycosylated hemoglobin (Hb A1C) (07/20/2017 9:21 AM)Only the most recent of2 resultswithin the time period is included. Component Value Ref Range POC Hemoglobin A1C 6.0 % Specimen Performing Laboratory Blood Pv duplex venous lower extremity (03/02/2017 9:12 AM) Specimen Performing Laboratory [facility] [address] [place] [address] Narrative Vascular Ultrasound Laboratory Lower Extremity Venous Report [id number]Name:Nathan JENKINS.ID:[id number] .Date: 03/02/2017Refer.MD:YASH MILLER MD Exam Time: 8:07:00 AMStudy Type:LE Venous Height:69inWeight:194lb BSA: 2.04 m2 DOBAge:1945,71Y Sex: MALESonogrphr: Juan Garner RN, RVS Pat. Stat.:OutpatientRoom:[place] TapeVol: PM, CPT - 4: 30073 Echo Event ID:[id number] Order ID:[id number] Reason for Study:Left popliteal fossa pain for 2-3 months. Left hip and calf pain for 1 month. History of heart transplant in 2006 with IVC filter placement for DVT. Race:C SUMMARY: * Normal Reflux Criteria:< 0.5 seconds * Abnormal Reflux Criteria:> or equal to 0.5 seconds DUPLEX SCAN OBSERVATIONS Deep VeinsSuperficial Veins RightLeft RightLeft GSV (prox) Surgically RemovedSurgically Removed CFV Incompetent Incompetent (above knee) Femoral Normal Normal GSV (dist) Normal Normal Profunda Incompetent Normal (below knee) Popliteal Incompetent Normal PT (prox) Normal PartialSSV Normal Normal PT (dist) Normal Normal Peroneal Normal Normal RIGHT:There is normal compressibility with no evidence of echogenic material noted within the lumen of the visualized veins. Colorflow and Doppler signalsdemonstrate venous reflux of the common femoral vein, profunda femoris vein and the popliteal vein. LEFT:A focal segment of a posterior tibial vein in the proximal calf is partially compressible with echogenic material in the lumen. The remaining visualized veins are compressible with no evidence of echogenic material in the lumen. Colorflow and Doppler signalsdemonstrate venous reflux of the common femoral vein. PRELIMINARY FINDINGS 1. Thrombosis of a focal segment of a left posterior tibial vein in the proximal calf. 2. Venous incompetence of the common femoral vein, bilaterally. 3. Venous incompetence of the right profunda femoris vein and the popliteal vein. PHYSICIAN INTERPRETATION Venous examination of the both lower extremities demonstrated a venous thrombosis in the of a focal segment of a left posterior tibial vein.Venousrefkux seen inthe common femoral vein, bilaterally and in the right profunda femoris vein and the popliteal vein. Signed 03/02/2017 11:38 AM Terry Manjarrez MD, RPVI Procedure Note Interface, Radiology Results In - 03/02/2017 11:39 AM CDT Vascular Ultrasound Laboratory Lower Extremity Venous Report [id number] [address] Pat.Name: TAQUERIA JENKINS.ID: [id number] St.Date: 03/02/2017 Refer.MD: YASH MILLER MD Exam Time: 8:07:00 AM Study Type:LE Venous Height: 69in Weight: 194lb BSA: 2.04 m2 Age: 2 1945,71Y Sex: MALE Sonogrphr: Juan Garner RN, RVS Pat. Stat.:Outpatient Room: [facility] Vol: PM, CPT - 4: 55093 Echo Event ID:[id number] Order ID: [id number] Reason for Study:Left popliteal fossa pain for 2-3 months. Left hip and calf pain for 1 month. History of heart transplant in 2006 with IVC filter placement for DVT. Race: C SUMMARY: * Normal Reflux Criteria: < 0.5 seconds * Abnormal Reflux Criteria: > or equal to 0.5 seconds DUPLEX SCAN OBSERVATIONS Deep Veins Superficial Veins Right Left Right Left GSV (prox) Surgically Removed Surgically Removed CFV Incompetent Incompetent (above knee) Femoral Normal Normal GSV (dist) Normal Normal Profunda Incompetent Normal (below knee) Popliteal Incompetent Normal PT (prox) Normal Partial SSV Normal Normal PT (dist) Normal Normal Peroneal Normal Normal RIGHT: There is normal compressibility with no evidence of echogenic material noted within the lumen of the visualized veins. Colorflow and Doppler signals demonstrate venous reflux of the common femoral vein, profunda femoris vein and the popliteal vein. LEFT: A focal segment of a posterior tibial vein in the proximal calf is partially compressible with echogenic material in the lumen. The remaining visualized veins are compressible with no evidence of echogenic material in the lumen. Colorflow and Doppler signals demonstrate venous reflux of the common femoral vein. PRELIMINARY FINDINGS 1. Thrombosis of a focal segment of a left posterior tibial vein in the proximal calf. 2. Venous incompetence of the common femoral vein, bilaterally. 3. Venous incompetence of the right profunda femoris vein and the popliteal vein. PHYSICIAN INTERPRETATION Venous examination of the both lower extremities demonstrated a venous thrombosis in the of a focal segment of a left posterior tibial vein. Venous refkux seen in the common femoral vein, bilaterally and in the right profunda femoris vein and the popliteal vein. Signed 03/02/2017 11:38 AM Terry Manajrrez MD, RPVI after 01/16/2017 Insurance Payer Benefit Plan / Group Subscriber ID Type Phone Address MEDICARE MEDICARE PART A AND B xxxxxxxxxx [place], [place] [id number] MED SUPP xxxxxxxxxx [address] [phone] [place], [place] [phone]
[2018-01-17] MEDS ORDERED: NA CHLORIDE 0.9% 500 ML ONE (14:49)
[2018-01-17] MEDS ORDERED: ONDANSETRON 4 MG/2 ML VIAL ONE (14:49)
[2018-01-17] MEDS ORDERED: AMPICILLIN/SULBACTAM 3GM/VIAL ONE (14:50)
[2018-01-17] MEDS ORDERED: NA CHLORIDE 0.9% 100 ML IV ONE (14:50)
[2018-01-17] MEDS ORDERED: ACETAMINOPHEN 500 MG TAB ONE (14:50)
[2018-01-17 14:58] LABS: Absolute Lymphocytes (CBC) 1.1 K/uL (0.7-4.9); Absolute Monocytes 0.8 K/uL (0.1-1.3); Absolute Neutrophil 9.3 K/uL (1.8-8.0); Basophils % 0.5 % (0-1.3); Eosinophils % 0.1 % (0-4.4); Hematocrit 44.3 % (39.6-49.0); Lymphocytes % 9.9 % (15.3-44.8); MCH 31.7 pg (27.0-35.0); MCV 97.2 fL (80-100); MPV 9.3 fL (7.6-11.3); Monocytes % 7.1 % (3.3-12.3); RBC Red Blood Cell Count 4.56 M/uL (4.33-5.43)
[2018-01-17 15:04] LABS: Protime INR 1.1
[2018-01-17 15:15] LABS: Potassium 4.1 mEq/L (3.6-5.0)
[2018-01-17 15:21] LABS: Albumin 4.5 g/dL (3.2-5.5); Bilirubin Direct 0.2 mg/dL (0-0.2); Bilirubin Total 0.9 mg/dL (0.3-1.2); Magnesium 1.8 mg/dL (1.8-2.5); Uric Acid 5.5 mg/dL (4.8-8.7)
[2018-01-17] MEDS ORDERED: FENTANYL CITR 100 MCG/2 ML ONE (15:44)
--- NOTE | 2018-01-17 15:54 | RAD REPORT ---
EXAM DESCRIPTION: RAD - Chest Single View - 01/17/2018 2:52 pm CLINICAL HISTORY: Cough COMPARISON: July 2017 TECHNIQUE: AP portable chest image was obtained 1445 hours . FINDINGS: No peripheral mass or consolidation identifiable. Trachea is midline. Minimal stranding in the lower left lung field has not changed. Sternotomy wires are in place. Heart and vasculature are normal. No measurable pleural effusion and no pneumothorax. No gross bony abnormality seen. No acute aortic findings suspected. IMPRESSION: No acute cardiopulmonary process. No significant interval change.
--- NOTE | 2018-01-17 15:55 | EDPHYS ---
Physician Documentation [facility] Name: Octavio Bueno Age: 72 yrs Sex: Male : 1945 Arrival Date: 01/17/2018 Time: 14:04 Bed 30 Private MD: out of town, doctor ED Physician Steven Esquivel HPI: 01/17 15:48 This 72 yrs old Male presents to ER via Wheelchair with complaints of Hand rob Pain. 15:48 The patient or guardian reports decreased range of motion, pain, swelling, tenderness. rob The complaints affect the right hand diffusely. Context: The problem was sustained at home. Onset: The symptoms/episode began/occurred 1 day(s) ago. Modifying factors: The symptoms are alleviated by nothing, the symptoms are aggravated by movement, dependent position. Associated signs and symptoms: Pertinent positives: fever. Severity of symptoms: At their worst the symptoms were moderate, in the emergency department the symptoms are unchanged. The patient has not experienced similar symptoms in the past. Historical: - Allergies: 14:11 NKA; iw - Home Meds: 14:11 allopurinol 100 mg Oral tab 1 tab 2 times per day [Active]; alprazolam 0.5 mg Oral tab iw 1 tab daily [Active]; amlodipine 5 mg tab 1 tab once daily [Active]; aspirin 81 mg Oral TbEC 1 tab once daily [Active]; CellCept 500 mg Oral tab 1 tabs 2 times per day [Active]; ferrous sulfate 325 mg (65 mg iron) Oral tab daily [Active]; folic acid 1 mg Oral tab 1 tab once daily [Active]; gabapentin 300 mg Oral cap 1 cap 3 times per day [Active]; isosorbide mononitrate 30 mg Oral Tb24 1 tab once daily [Active]; labetalol 300 mg Oral tab 1 tab 2 times per day [Active]; magnesium oxide 400 mg Oral tab twice a day [Active]; metolazone 2.5 mg Oral tab 1 tab once daily [Active]; Nexium 40 mg Oral cpDR 1 cap once daily [Active]; Novolin 70/30 In[place]let Sub-Q 70-30 unit/mL twice a day [Active]; potassium chloride 10 mEq Oral cpER 1 cap once daily [Active]; pravastatin 40 mg Oral tab 1 tab once daily [Active]; prednisone 5 mg Oral tab once daily [Active]; Prograf 0.5 mg Oral cap every 12 hours [Active]; Singulair 10 mg Oral tab 1 tab once daily [Active]; tamsulosin 0.4 mg Oral cp24 1 cap once daily [Active]; torsemide 20 mg Oral tab 2 tabs once daily [Active]; - PMHx: 14:11 Diabetes - IDDM; Gout; Myocardial infarction; iw - PSHx: 14:11 heart transplant 2006; iw - Immunization history:: Adult Immunizations Last tetanus immunization: < 10 years ago. - Social history:: Smoking status: Patient/guardian denies using tobacco. - Family history:: not pertinent. ROS: 15:48 Constitutional: Negative for fever, chills, and weight loss, Eyes: Negative for injury, rob pain, redness, and discharge, ENT: Negative for injury, pain, and discharge, Neck: Negative for injury, pain, and swelling, Cardiovascular: Negative for chest pain, palpitations, and edema, Respiratory: Negative for shortness of breath, cough, wheezing, and pleuritic chest pain, Abdomen/GI: Negative for abdominal pain, nausea, vomiting, diarrhea, and constipation, Back: Negative for injury and pain, : Negative for injury, bleeding, discharge, and swelling, Neuro: Negative for headache, weakness, numbness, tingling, and seizure, Psych: Negative for depression, anxiety, suicide ideation, homicidal ideation, and hallucinations, Allergy/Immunology: Negative for hives, rash, and allergies, Endocrine: Negative for neck swelling, polydipsia, polyuria, polyphagia, and marked weight changes, Hematologic/Lymphatic: Negative for swollen nodes, abnormal bleeding, and unusual bruising. 15:48 MS/extremity: Positive for decreased range of motion, pain, swelling, tenderness, of the right hand. Exam: 15:48 Head/Face: Normocephalic, atraumatic. Eyes: Pupils equal round and reactive to light, rob extra-ocular motions intact. Lids and lashes normal. Conjunctiva and sclera are non-icteric and not injected. Cornea within normal limits. Periorbital areas with no swelling, redness, or edema. ENT: Nares patent. No nasal discharge, no septal abnormalities noted. Tympanic membranes are normal and external auditory canals are clear. Oropharynx with no redness, swelling, or masses, exudates, or evidence of obstruction, uvula midline. Mucous membranes moist. Neck: Trachea midline, no thyromegaly or masses palpated, and no cervical lymphadenopathy. Supple, full range of motion without nuchal rigidity, or vertebral point tenderness. No Meningismus. Chest/axilla: Normal chest wall appearance and motion. Nontender with no deformity. No lesions are appreciated. Respiratory: Lungs have equal breath sounds bilaterally, clear to auscultation and percussion. No rales, rhonchi or wheezes noted. No increased work of breathing, no retractions or nasal flaring. Abdomen/GI: Soft, non-tender, with normal bowel sounds. No distension or tympany. No guarding or rebound. No evidence of tenderness throughout. Back: No spinal tenderness. No costovertebral tenderness. Full range of motion. Male : Normal genitalia with no discharge or lesions. Skin: Warm, dry with normal turgor. Normal color with no rashes, no lesions, and no evidence of cellulitis. MS/ Extremity: Pulses equal, no cyanosis. Neurovascular intact. Full, normal range of motion. Neuro: Awake and alert, GCS 15, oriented to person, place, time, and situation. Cranial nerves II-XII grossly intact. Motor strength 5/5 in all extremities. Sensory grossly intact. Cerebellar exam normal. Normal gait. Psych: Awake, alert, with orientation to person, place and time. Behavior, mood, and affect are within normal limits. 15:48 Constitutional: The patient appears febrile, in obvious distress, mildly distressed. 15:48 Musculoskeletal/extremity: ROM: full passive range of motion, limited active range of motion, Circulation is intact in all extremities. Sensation intact. Compartment Syndrome exam of affected extremity: is normal. DVT Exam: negative Homans' sign noted on exam, no appreciated bluish discoloration, no increased warmth, pain, swelling, tenderness. Vital Signs: 14:09 BP 136 / 81; Pulse 110; Resp 20 S; Temp 99.5(TE); Pulse Ox 94% on R/A; Weight 86.18 kg; iw Height 5 ft. 9 in. (175.26 cm); Pain 10/10; 14:15 Temp 101.7(O); tl3 16:36 BP 130 / 71; Pulse 107; Resp 20; Temp 103.7(O); Pulse Ox 96% on 3 lpm NC; tl3 18:05 BP 99 / 51; Pulse 97; Resp 18; Temp 102.6(O); Pulse Ox 97% on 3 lpm NC; tl3 18:30 BP 99 / 51; Pulse 98; Resp 18; Pulse Ox 97% on 3 lpm NC; tl3 19:00 BP 112 / 87; Pulse 92; Resp 18; Pulse Ox 97% 3 lpm ; tl3 14:09 Body Mass Index 28.06 (86.18 kg, 175.26 cm) iw MDM: 14:15 Patient medically screened. [facility] 15:48 Data reviewed: vital signs, nurses notes, lab test result(s), EKG, radiologic studies, rob plain films. 01/17 14:17 Order name: Basic Metabolic Panel; Complete Time: 15:46 [facility] 01/17 14:17 Order name: BNP; Complete Time: 15:46 [facility] 01/17 14:17 Order name: CBC with Diff; Complete Time: 15:46 [facility] 01/17 14:17 Order name: Ckmb; Complete Time: 15:46 [facility] 01/17 14:17 Order name: CPK; Complete Time: 15:46 [facility] 01/17 14:17 Order name: LFT's; Complete Time: 15:46 [facility] 01/17 14:17 Order name: Magnesium; Complete Time: 15:46 [facility] 01/17 14:17 Order name: PT-INR; Complete Time: 15:46 [facility] 01/17 14:17 Order name: Ptt, Activated; Complete Time: 15:46 [facility] 01/17 14:17 Order name: Troponin (emerg Dept Use Only); Complete Time: 15:46 [facility] 01/17 14:17 Order name: XRAY Chest (1 view); Complete Time: 16:14 [facility] 01/17 14:17 Order name: Hand Left 3 View XRAY; Complete Time: 16:14 [facility] 01/17 14:17 Order name: Blood Culture Adult (2) 01/17 14:17 Order name: Uric Acid; Complete Time: 15:46 [facility] 01/17 14:17 Order name: EKG; Complete Time: 14:18 [facility] 01/17 14:17 Order name: Cardiac monitoring; Complete Time: 18:04 [facility] 01/17 14:17 Order name: EKG - Nurse/Tech; Complete Time: 18:04 [facility] 01/17 14:17 Order name: IV Saline Lock; Complete Time: 18:05 [facility] 01/17 14:17 Order name: Labs collected and sent; Complete Time: 18:05 [facility] 01/17 14:17 Order name: O2 Per Protocol; Complete Time: 18:05 [facility] 01/17 14:17 Order name: O2 Sat Monitoring; Complete Time: 18:05 [facility] 01/17 14:17 Order name: Urine Dipstick-Ancillary (obtain specimen); Complete Time: 18:05 [facility] Administered Medications: 14:50 Drug: NS 0.9% 500 ml Route: IV; Rate: bolus; Site: right antecubital; Delivery: Primary tl3 tubing; 15:50 Follow up: IV Status: Completed infusion; IV Intake: 500ml tl3 14:50 Drug: Unasyn 3 grams Route: IVPB; Infused Over: 30 mins; Site: right forearm; tl3 15:50 Follow up: IV Status: Completed infusion; IV Intake: 100ml tl3 14:50 Drug: Tylenol 1000 mg Route: PO; tl3 16:27 Follow up: Response: No adverse reaction tl3 15:00 Drug: Zofran 4 mg Route: IVP; Site: right forearm; tl3 19:03 Follow up: Response: No adverse reaction tl3 15:15 Drug: fentaNYL (PF) 25 mcg Route: IVP; Infused Over: 3 mins; Site: right forearm; tl3 15:50 Drug: NS 0.9% 1000 ml Route: IV; Rate: 125 ml/hr; Site: right antecubital; Delivery: tl3 Primary tubing; 19:44 Follow up: IV Status: Completed infusion; IV Intake: 500ml tl3 16:00 Drug: fentaNYL (PF) 25 mcg Route: IVP; Infused Over: 3 mins; Site: right forearm; tl3 16:33 Follow up: Response: No adverse reaction; Pain is decreased tl3 16:52 Drug: vancoMYCIN 1 grams Route: IVPB; Infused Over: 2 hrs; Site: right forearm; tl3 19:02 Follow up: IV Status: Completed infusion; IV Intake: 250ml tl3 19:02 Drug: fentaNYL (PF) 25 mcg Route: IVP; Site: right forearm; tl3 19:25 Follow up: Response: No adverse reaction; Marked relief of symptoms tl3 19:02 Drug: Tylenol 650 mg Route: PO; tl3 19:25 Follow up: Response: No adverse reaction tl3 Disposition: 01/17/18 15:55 Transfer ordered to [facility]. Diagnosis are Cellulitis and acute lymphangitis of other parts of limb - right , dorsum hand, right, Transplanted organ and tissue status, unspecified - cardiac transport, Fever, unspecified, Unspecified kidney failure. - Reason for transfer: Higher level of care. - Accepting physician is to dr glen gregorio [facility]. - Condition is Fair. - Problem is new. - Symptoms have improved. Signatures: Dispatcher [employer] EDSteven Bob MD MD cha Williams, Irene, RN RN Nuvia Self RN RN tl3
--- NOTE | 2018-01-17 15:55 | RAD REPORT ---
EXAM DESCRIPTION: RAD - Hand Left 3 View - 01/17/2018 2:55 pm CLINICAL HISTORY: Blunt force trauma left hand COMPARISON: None. FINDINGS: No fracture, dislocation or periosteal reaction noted. Soft tissue swelling is present ove r the dorsum of the hand. No foreign body in the soft tissues. IMPRESSION: Soft tissue swelling with no fracture confirmed.
--- NOTE | 2018-01-17 15:55 | ER ---
Nurse's Notes [facility] Name: Octavio Bueno Age: 72 yrs Sex: Male : 1945 Arrival Date: 01/17/2018 Time: 14:04 Bed 30 Private MD: out of town, doctor Diagnosis: Cellulitis and acute lymphangitis of other parts of limb-right , dorsum hand, right;Transplanted organ and tissue status, unspecified-cardiac transport;Fever, unspecified;Unspecified kidney failure Presentation: 01/17 14:06 Presenting complaint: Patient states: hit left hand on concrete culvert yesterday, this iw morning pain increased to hand and began to swell up, pt has severe pain to left hand now, 07/06, pt shaking uncontrollably in triage. Transition of care: patient was not received from another setting of care. Onset of symptoms was January 16, 2018. Initial Sepsis Screen: Does the patient meet any 2 criteria? No. Patient's initial sepsis screen is negative. Care prior to arrival: None. 14:06 Method Of Arrival: Wheelchair iw 14:06 Acuity: YAHIR 3 iw 19:46 Initial Sepsis Screen: Does the patient meet any 2 criteria? Temp <36.0*C (96.8*F)) or tl3 > 38.3*C (100.4*F). Does the patient have a suspected source of infection? No. Patient's initial sepsis screen is negative. Historical: - Allergies: 14:11 NKA; iw - Home Meds: 14:11 allopurinol 100 mg Oral tab 1 tab 2 times per day [Active]; alprazolam 0.5 mg Oral tab iw 1 tab daily [Active]; amlodipine 5 mg tab 1 tab once daily [Active]; aspirin 81 mg Oral TbEC 1 tab once daily [Active]; CellCept 500 mg Oral tab 1 tabs 2 times per day [Active]; ferrous sulfate 325 mg (65 mg iron) Oral tab daily [Active]; folic acid 1 mg Oral tab 1 tab once daily [Active]; gabapentin 300 mg Oral cap 1 cap 3 times per day [Active]; isosorbide mononitrate 30 mg Oral Tb24 1 tab once daily [Active]; labetalol 300 mg Oral tab 1 tab 2 times per day [Active]; magnesium oxide 400 mg Oral tab twice a day [Active]; metolazone 2.5 mg Oral tab 1 tab once daily [Active]; Nexium 40 mg Oral cpDR 1 cap once daily [Active]; Novolin 70/30 [place]let Sub-Q 70-30 unit/mL twice a day [Active]; potassium chloride 10 mEq Oral cpER 1 cap once daily [Active]; pravastatin 40 mg Oral tab 1 tab once daily [Active]; prednisone 5 mg Oral tab once daily [Active]; Prograf 0.5 mg Oral cap every 12 hours [Active]; Singulair 10 mg Oral tab 1 tab once daily [Active]; tamsulosin 0.4 mg Oral cp24 1 cap once daily [Active]; torsemide 20 mg Oral tab 2 tabs once daily [Active]; - PMHx: 14:11 Diabetes - IDDM; Gout; Myocardial infarction; iw - PSHx: 14:11 heart transplant 2006; iw - Immunization history:: Adult Immunizations Last tetanus immunization: < 10 years ago. - Social history:: Smoking status: Patient/guardian denies using tobacco. - Family history:: not pertinent. Screenin:15 Abuse screen: Denies threats or abuse. Nutritional screening: No deficits noted. tl3 Tuberculosis screening: No symptoms or risk factors identified. Fall Risk None identified. Assessment: 14:15 General: Appears distressed, uncomfortable, slender, well groomed, well developed, well tl3 nourished, Behavior is cooperative, appropriate for age, restless, pt shaking all over. Pain: Complains of pain in dorsum of left hand Pain currently is 10 out of 10 on a pain scale. Neuro: Level of Consciousness is awake, alert, obeys commands, Oriented to person, place, time, situation, Appropriate for age. Cardiovascular: Heart tones S1 S2 present Capillary refill < 3 seconds in bilateral fingers. Respiratory: Airway is patent Trachea midline Respiratory effort is even, labored, Respiratory pattern is regular, symmetrical, Breath sounds are clear bilaterally. GI: No signs and/or symptoms were reported involving the gastrointestinal system. : No signs and/or symptoms were reported regarding the genitourinary system. EENT: No signs and/or symptoms were reported regarding the EENT system. Derm: Skin is fragile, is thin, pt was trying to work on a culvert at home that had started to collapse, possibly has sewage that runs through it, hit top of left hand, area red, pt complains of pain 10 /10 to hand. Has extensive heart history, had transplant done 11 years ago. Musculoskeletal: No signs and/or symptoms reported regarding the musculoskeletal system. 15:35 General: Appears distressed. tl3 16:38 Reassessment: Patient appears in no apparent distress at this time. No changes from tl3 previously documented assessment. Patient and/or family updated on plan of care and expected duration. Pain level reassessed. Patient is alert, oriented x 3, equal unlabored respirations, skin warm/dry/pink. pt still with fever, at bedside. 18:30 Reassessment: Patient appears in no apparent distress at this time. No changes from tl3 previously documented assessment. Patient and/or family updated on plan of care and expected duration. Pain level reassessed. Patient is alert, oriented x 3, equal unlabored respirations, skin warm/dry/pink. report called to [facility] spoke with Klaudia Nur RN. 19:00 Reassessment: Patient appears in no apparent distress at this time. No changes from tl3 previously documented assessment. Patient and/or family updated on plan of care and expected duration. Pain level reassessed. Patient is alert, oriented x 3, equal unlabored respirations, skin warm/dry/pink. pt states that hand is hurting again, Dr Esquivel notified. Vital Signs: 14:09 BP 136 / 81; Pulse 110; Resp 20 S; Temp 99.5(TE); Pulse Ox 94% on R/A; Weight 86.18 kg; iw Height 5 ft. 9 in. (175.26 cm); Pain 10/10; 14:15 Temp 101.7(O); tl3 16:36 BP 130 / 71; Pulse 107; Resp 20; Temp 103.7(O); Pulse Ox 96% on 3 lpm NC; tl3 18:05 BP 99 / 51; Pulse 97; Resp 18; Temp 102.6(O); Pulse Ox 97% on 3 lpm NC; tl3 18:30 BP 99 / 51; Pulse 98; Resp 18; Pulse Ox 97% on 3 lpm NC; tl3 19:00 BP 112 / 87; Pulse 92; Resp 18; Pulse Ox 97% 3 lpm ; tl3 14:09 Body Mass Index 28.06 (86.18 kg, 175.26 cm) ED Course: 14:04 Patient arrived in ED. mr 14:04 out of town, doctor is Private Physician. mr 14:09 Triage completed. iw 14:09 Arm band placed on. iw 14:15 Steven Esquivel MD is Attending Physician. [facility] 14:15 Nuvia Martin, RN is Primary Nurse. tl3 14:15 Patient has correct armband on for positive identification. Bed in low position. Call tl3 light in reach. Side rails up X2. Adult w/ patient. Pulse ox on. NIBP on. Warm blanket given. 14:15 No provider procedures requiring assistance completed. Inserted saline lock: 20 gauge tl3 in right forearm, using aseptic technique. Blood collected. 14:49 Note: Pt was unable to hold still for . Note: Pt was unable to hold still for XRay as kw1 he was violently shaking and could not control his movements.. 14:50 Initial lab(s) drawn, by me, sent to lab. First set of blood cultures drawn. tl3 14:52 XRAY Chest (1 view) In Process Unspecified. EDMS 14:52 Hand Left 3 View XRAY In Process Unspecified. EDMS 15:52 EKG done, by hospital technician. reviewed by Steven Esquivel MD. at1 16:35 Second set of blood cultures drawn by dc. tl3 16:36 Oxygen administration via nasal cannula \T\ 2L/min Response to oxygen therapy: o2sats tl3 dropped to 88%, NC at 3L/M brought them up to 96%. 19:00 No apparent distress. Resting quietly. Awaiting transportation, Awaiting: to [address] 19:45 Patient transferred, IV remains in place. tl3 Administered Medications: 14:50 Drug: NS 0.9% 500 ml Route: IV; Rate: bolus; Site: right antecubital; Delivery: Primary tl3 tubing; 15:50 Follow up: IV Status: Completed infusion; IV Intake: 500ml tl3 14:50 Drug: Unasyn 3 grams Route: IVPB; Infused Over: 30 mins; Site: right forearm; tl3 15:50 Follow up: IV Status: Completed infusion; IV Intake: 100ml tl3 14:50 Drug: Tylenol 1000 mg Route: PO; tl3 16:27 Follow up: Response: No adverse reaction tl3 15:00 Drug: Zofran 4 mg Route: IVP; Site: right forearm; tl3 19:03 Follow up: Response: No adverse reaction tl3 15:15 Drug: fentaNYL (PF) 25 mcg Route: IVP; Infused Over: 3 mins; Site: right forearm; tl3 15:50 Drug: NS 0.9% 1000 ml Route: IV; Rate: 125 ml/hr; Site: right antecubital; Delivery: tl3 Primary tubing; 19:44 Follow up: IV Status: Completed infusion; IV Intake: 500ml tl3 16:00 Drug: fentaNYL (PF) 25 mcg Route: IVP; Infused Over: 3 mins; Site: right forearm; tl3 16:33 Follow up: Response: No adverse reaction; Pain is decreased tl3 16:52 Drug: vancoMYCIN 1 grams Route: IVPB; Infused Over: 2 hrs; Site: right forearm; tl3 19:02 Follow up: IV Status: Completed infusion; IV Intake: 250ml tl3 19:02 Drug: fentaNYL (PF) 25 mcg Route: IVP; Site: right forearm; tl3 19:25 Follow up: Response: No adverse reaction; Marked relief of symptoms tl3 19:02 Drug: Tylenol 650 mg Route: PO; tl3 19:25 Follow up: Response: No adverse reaction tl3 Intake: 15:50 IV: 100ml; Total: 100ml. tl3 15:50 IV: 500ml; Total: 600ml. tl3 19:02 IV: 250ml; Total: 850ml. tl3 19:44 IV: 500ml; Total: 1350ml. tl3 Outcome: 15:55 ER care complete, transfer ordered by MD. rivas 19:43 Patient left the ED. tl3 19:45 Transferred by ground EMS to [facility], Transfer form completed. tl3 19:45 Condition: stable 19:45 Instructed on the need for transfer. Signatures: Dispatcher [employer] Steven Izquierdo MD MD cha Rivera, Maria mr Williams, Irene, RN RN Mariluz rowe, scratch polisher EKG Tat1 Karla Kruger kw1 Nuvia Martin RN RN tl3
--- NOTE | 2018-01-17 16:33 | EKG ---
Test Date: 2018-01-17 Test Time: 15:45:20 Hose Suspender Cutter: BA MEASUREMENT RESULTS: Intervals: Rate: 113 IA: 142 QRSD: 76 QT: 330 QTc: 452 [place]: P: 28 IA: 142 QRS: 86 T: 79 INTERPRETIVE STATEMENTS: Sinus tachycardia Abnormal ECG Compared to ECG 08/01/2017 14:02:34 Sinus rhythm no longer present Electronically Signed On 01-17-18 16:33:03 CDT by Jeffery Longoria
[2018-01-17] MEDS ORDERED: NA CHLORIDE 0.9% 250 ML ONE (16:46)
[2018-01-17] MEDS ORDERED: VANCOMYCIN 1 GM/VIAL ONE (16:46)
[2018-01-17] MEDS ORDERED: ACETAMINOPHEN 325 MG TABLET ONE (18:53)
[2018-01-17 19:59] VITALS: TEMP 102.6; O2SAT 97
[2018-01-17 20:01] VITALS: BP 112/87
== END 2018-01-17 19:43 | disposition short-term general hospital (02) ==
LOC: ER 14:01
DX: L03.113 Cellulitis of right upper limb (principal); R50.9 Fever, unspecified; N19 Unspecified kidney failure; Z94.1 Heart transplant status; I25.2 Old myocardial infarction; E11.9 Type 2 diabetes mellitus without complications; Z79.82 Long term (current) use of aspirin; Z79.4 Long term (current) use of insulin
CPT/HCPCS: 36415; 71045; 73130; 80048; 80076; 82550; 82553; 83735; 83880; 84484; 84550; 85025; 85610; 85730; 87040 ×2; 87205 ×2; 93005; 96361; 96365; 96366; 96367; 96375; 99285; J0295; J2405; J3010

== ENCOUNTER 2018-02-24 12:08 | Emergency (ER) | payer OTHER ==
--- OUTSIDE RECORDS SUMMARY | 2018-02-24 12:12 | XMS REPORT | Clinical Summary ---
:1945 Author Organization [facility] Address [address] [place] [address] Care Team Providers Name Role Phone Britney [...] times a day with per tablet meals. multivitamin Take 1 tablet by Active (THERAGRAN) tablet mouth daily. omega-3 acid ethyl Take 2 g by mouth Active esters (LOVAZA) 1 2 (two) times a gram capsule day. tamsulosin Take 0.4 mg by Active (FLOMAX) 0.4 mg mouth nightly. capsule,extended release 24hr ferrous sulfate Take 325 mg by Active 325 (65 FE) MG mouth daily with tablet breakfast. amLODIPine Take 5 mg by mouth Active (NORVASC) 5 MG daily. tablet ONETOUCH ULTRA TEST 4 TIMES A DAY [...] diabetes mellitus type 2 without complications, unspecified jail insulin use status potassium chloride Take 2 tablets (20 60 tablet 11 07/09/20 Active (K-DUR,KLOR-CON) mEq total) by 7 18 10 MEQ CR tablet mouth daily. isosorbide TAKE 1 TABLET 90 tablet 3 Active mononitrate EVERY DAY 7 (IMDUR) 30 MG 24 hr tablet magnesium oxide Take 1 tablet (400 180 [...] mL TWICE DAILY 8 31 gauge x 5/16 syringeIndications : Uncontrolled type 2 diabetes mellitus without complication, with long-term current use of insulin tacrolimus Take 1 capsule 60 capsule 11 12/21/19 Active (PROGRAF) 0.5 MG (0.5 mg total) by 8 19 capsule mouth 2 (two) times a day. Z94.1 heart transplant gabapentin Take 1 capsule 90 capsule 0 Active (NEURONTIN) 300 mg (300 mg total) by 8 capsule mouth 3 (three) times a day. insulin 70/30 NPH Inject 20 units 40 mL 2 Active and regular human subcutaneously 8 (NovoLIN 70/30 with breakfast and U-100 Insulin) 100 24 units subq with unit/mL (70-30) evening meal injection pravastatin Take 1 tablet (80 90 tablet 3 Active (PRAVACHOL) 80 MG mg total) by mouth 8 tablet daily. predniSONE Take 1.5 tablets 45 tablet 11 01/23/20 Active (DELTASONE) 5 mg (7.5 mg total) by 8 22 tablet mouth daily. esomeprazole Take 40 mg by 30 capsule 0 Active (NexIUM) 20 MG mouth every 8 capsule morning and 20 mg by mouth every evening metOLazone Take 1 tablet (2.5 30 tablet 0 Active (ZAROXOLYN) 2.5 MG mg total) by mouth 8 tablet as needed (fluid). Titrate to effect montelukast Take 1 tablet (10 30 tablet 0 Active (SINGULAIR) 10 mg mg total) by mouth 8 tablet as needed (allergies). torsemide Take 2 tablets (40 60 tablet 0 Active (DEMADEX) 20 MG mg total) by mouth 8 tablet daily. mycophenolate Take 1 tablet (500 60 tablet 0 02/02/20 Active (CELLCEPT) 500 mg mg total) by mouth 8 19 tablet 2 (two) times a day. Z94.1 heart transplant esomeprazole Take 40 mg by 01/23/20 Discontinued (NexIUM) 40 MG mouth daily before 18 capsule breakfast. montelukast Take 10 mg by 01/23/20 Discontinued (SINGULAIR) 10 mg mouth nightly. 18 tablet potassium chloride Take 20 mEq by 07/09/20 Discontinued (K-DUR,KLOR-CON) mouth daily. 17 10 MEQ CR tablet thiamine 100 MG Take 100 mg by 01/18/20 Discontinued tablet mouth daily. 18 labetalol Take 1 tablet (300 180 tablet [...] 2 (two) 18 tablet times a day. isosorbide Take 1 tablet (30 30 tablet 11 05/22/20 mononitrate mg total) by mouth 6 17 (IMDUR) 30 MG 24 daily. hr tablet metolazone Take 1 tablet (2.5 30 tablet 3 01/23/20 Discontinued (ZAROXOLYN) 2.5 MG mg total) by mouth 6 18 tablet daily. Titrate to effect pravastatin Take 1 tablet (20 30 tablet 6 08/11/20 Discontinued (PRAVACHOL) 20 MG mg total) by mouth 7 17 tablet every evening. blood sugar Test 4 times daily 400 strip 3 11/10/19 Discontinued diagnostic strips 7 18 ([email or web address] VERIO) strip test stripsIndications: Uncontrolled type 2 diabetes mellitus without complication, with long-term current use of insulin pravastatin Take 1 tablet (80 90 tablet 3 09/30/19 Discontinued (PRAVACHOL) 80 MG mg total) by mouth 7 18 tablet every evening. insulin NPH and Per DR. Maloney 20 40 mL 09/02/20 Discontinued regular human am / 24 pm 7 17 (HumuLIN 70/30) 100 unit/mL (70-30) injection insulin Twice daily 200 each 12/18/19 Discontinued syringe-needle 7 18 U-100 (BD [...] 10/26/06 tacrolimus Take 1 capsule 60 capsule 12/21/19 Discontinued (PROGRAF) 0.5 MG (0.5 mg [...] capsule mouth 3 (three) times a day. predniSONE TAKE 1 & 1/2 TABS 45 tablet 11 01/23/20 Discontinued (DELTASONE) 5 mg BY MOUTH ONCE A 7 18 tablet DAY acetaminophen-code Take 1 tablet by 30 tablet 2 01/23/20 Discontinued ine (TYLENOL WITH mouth nightly for 7 18 CODEINE #3) 300-30 90 days. DVT left mg per tablet leg pain for sleep traMADol (ULTRAM) Take 1 tablet (50 60 tablet 2 05/31/20 50 mg tablet mg total) by mouth 7 17 every 12 (twelve) hours as needed for moderate pain for up to 90 days. apixaban (ELIQUIS) Take 1 tablet (2.5 60 tablet 2 08/11/20 Discontinued 2.5 mg tablet mg total) by mouth 7 17 2 (two) times a day for 90 days. gabapentin TAKE 1 CAPSULE 270 capsule 3 01/23/20 Discontinued (NEURONTIN) 300 mg THREE TIMES DAILY 7 18 capsule sucralfate Take 10 mL (1 g 1200 mL 0 08/27/20 (CARAFATE) 100 total) by mouth 4 7 17 mg/mL suspension (four) times a day for 30 days. NOVOLIN 70/30 100 INJECT 20 UNITS 40 mL 2 01/23/20 Discontinued unit/mL (70-30) SUBCUTANEOUSLY IN 7 18 injection THE MORNING, AND 24 UNITS AT DINNER pravastatin TAKE 1 TABLET (80 90 tablet 3 01/23/20 Discontinued (PRAVACHOL) 80 MG MG TOTAL) BY MOUTH 8 18 tablet EVERY EVENING. mycophenolate TAKE 1 TABLET BY 180 tablet 3 01/23/20 Discontinued (CELLCEPT) 500 mg MOUTH TWICE A DAY 8 18 tablet oseltamivir Take 1 capsule (75 20 capsule 0 11/27/19 (TAMIFLU) 75 MG mg total) by mouth 8 18 capsule 2 (two) times a day for 10 days. azithromycin Take 2 tablets 6 tablet 0 11/21/19 (ZITHROMAX Z-CHARLA) (500 mg) on Day 8 18 250 MG tablet 1, followed by 1 tablet (250 mg) once daily on Days 2 through 5. torsemide Take 1 tablet (20 180 tablet 3 01/23/20 Discontinued (DEMADEX) 20 MG mg total) by mouth 8 18 tablet 2 (two) times a day. labetalol Take 1 tablet (200 180 tablet 3 12/07/19 Discontinued (NORMODYNE) 200 MG mg total) by mouth 8 18 tablet 2 (two) times a day. amoxicillin-pot Take 1 tablet (500 14 tablet 0 01/30/20 clavulanate mg total) by mouth 8 18 (AUGMENTIN) 2 (two) times a 500-125 mg per day for 7 days. tablet doxycycline Take 1 capsule 14 capsule 0 01/30/20 (VIBRAMYCIN) 100 (100 mg total) by 8 18 MG capsule mouth 2 (two) times a day with meals for 7 days. mycophenolate Hold until clinic 60 tablet 0 02/02/20 Discontinued (CELLCEPT) 500 mg follow-up 8 18 tablet Active Problems Problem Noted Date Cellulitis 01/17/2018 Chest pain 08/05/2017 Type II or unspecified [...] Date Type I Type II 11/08/2017 Cw5 7064 DP11 4641 10/12/2016 Cw5 3100 DP11 1371 11/15/2015 Cw5 3112 DP11 1583 Diabetes mellitus 02/26/2016 Overview: Diabetic/hyperlipidemia/osteopenia Followed by Dr. Maloney Gabapentin 300 mg TID for neuropathy Novolog 70/30 Diabetic neuropathy 02/26/2016 Disorder of heart transplantation [...] Encounters Date Type Specialty Care Team Description 02/24/2018 Documentation Transplant Chase Roman, RN 02/01/2018 Hospital Encounter Transplant LucianDonald History of heart transplant (Primary Dx); MD Chris Chronic kidney disease, stage V; Diabetes mellitus due to underlying condition with chronic kidney disease, without long-term current use of insulin, unspecified CKD stage; Mixed hyperlipidemia; Essential hypertension; Long-term use of immunosuppressant medication; Heart replaced by transplant; Infection; 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; Therapeutic drug monitoring 02/01/2018 Hospital Encounter Transplant Minal, Heart replaced by transplant; MD Yash Infection; 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; Therapeutic drug monitoring; Metabolic syndrome; CRF (chronic renal failure), stage 3 (moderate); Cytomegalovirus infection, unspecified cytomegaloviral infection type; Essential hypertension; Hyperlipidemia associated with type 2 diabetes mellitus 01/28/2018 Hospital Encounter Transplant LucianDonald jerry Heart replaced by transplant; MD Chris Infection; 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; Therapeutic drug monitoring; Metabolic syndrome; CRF (chronic renal failure), stage 3 (moderate); Cytomegalovirus infection, unspecified cytomegaloviral infection type; Essential hypertension; Hyperlipidemia associated with type 2 diabetes mellitus 01/24/2018 Orders Only Transplant Chase Roman, Heart replaced by transplant (Primary Dx); RN Infection; halfway current use 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; Therapeutic drug monitoring; Metabolic syndrome; CRF (chronic renal failure), stage 3 (moderate); Cytomegalovirus infection, unspecified cytomegaloviral infection type; Essential hypertension; Hyperlipidemia associated with type 2 diabetes mellitus 01/24/2018 Documentation Transplant Jason Miranda, Nursing Inpatient to RN Outpatient HandOff 01/17/2018 Hospital Encounter Transplant Donald Epstein MD 01/22/2018 Gene Muniz MD 01/13/2018 Orders Only Transplant Chase Roman RN 12/20/2017 Refill Transplant Gallo, Med Refill Edelmira, PEREZ 12/17/2017 Refill Endocrinology Britney Maloney Uncontrolled type 2 MD Hany diabetes mellitus without complication, with long-term current use of insulin 12/17/2017 Refill Cardiology Donald Epstein Refill MD Chris 12/06/2017 Documentation Transplant Chase Roman RN 11/28/2017 Refill Cardiology Donald Epstein Refill MD Chris 11/23/2017 Documentation Transplant Karl Ester 11/18/2017 Abstract Transplant Chase Roman RN 11/16/2017 Refill Transplant Gallo, Med Refill [place], [place] 11/16/2017 Orders Only Transplant Chase Roman RN [...] Chris transplant 11/08/2017 Hospital Encounter Procedural Cardiology Donald Epstein Heart replaced by transplant; MD Chris Complication of transplanted organ; 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 Hospital Encounter Radiology LucianDonald jerry Heart replaced by MD Chris transplant 11/08/2017 Hospital Encounter Radiology Donald Epstein Heart replaced by transplant; MD Chris Complication of transplanted organ; Essential hypertension; Long-term use of immunosuppressant medication; Metabolic syndrome; Hyperlipidemia associated with type 2 diabetes mellitus; Chronic fatigue; Infection; Bone loss 11/08/2017 Hospital Encounter Radiology Donald Epstein Heart replaced by transplant; MD Chris Complication of transplanted organ; Essential hypertension; Long-term use of immunosuppressant medication; Metabolic syndrome; Hyperlipidemia associated with type 2 diabetes mellitus; Chronic fatigue; Infection; Bone loss 11/08/2017 Hospital Encounter Radiology Donald Epstein Heart replaced by transplant; MD Chris Complication of transplanted organ; Essential hypertension; Long-term use of immunosuppressant medication; Metabolic syndrome; Hyperlipidemia associated with type 2 diabetes mellitus; Chronic fatigue; Infection 11/08/2017 Hospital Encounter Transplant Donald Epstein Heart replaced by transplantKuldip Perez MD Complication of transplanted organ; Essential hypertension; Long-term use of immunosuppressant medication; Metabolic syndrome; Hyperlipidemia associated with type 2 diabetes mellitus; Chronic fatigue; Infection; Bone loss; Prostate cancer screening; Cytomegalovirus infection, unspecified cytomegaloviral infection type 11/08/2017 Ancillary Orders Transplant LucianDonald jerry Heart replaced by transplant; MD Chris Complication of transplanted organ; 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 Orders Only Transplant Chase Roman, Heart replaced by wool hanker (Primary Dx) 11/08/2017 Ancillary Orders Radiology LucianDonald jerry Heart replaced by MD Chris transplant 11/04/2017 Refill Transplant Pan, Med Refill Nikkita 11/03/2017 Telephone Transplant Dariusz Clements Med Refill PEREZ 11/01/2017 Refill Cardiology Donald Epstein Refminerva Perez MD 10/25/2017 Refill Cardiology Donald Epstein Med Refminerva Perez MD 10/21/2017 Orders Only Transplant Chase Roman, Heart [...] Bone loss 09/16/2017 Refill Cardiology Donald Epstein MD 09/15/2017 Office Visit Gastroenterology Jaleesa, Epigastric [...] RN 08/11/2017 Documentation Transplant Chase Roman, Error RN 08/10/2017 Telephone Gastroenterology Gallito Lazcano MD 08/05/2017 Emergency Emergency Medicine Ayala, Chest pain, unspecified type (Primary Dx); [facility] Pastor, Chronic kidney disease, stage [...] hypofunction; Vitamin D deficiency 07/09/2017 Orders Only Transplant Chase Roman RN 07/05/2017 Refill Cardiology Donald Epsteinill MD hCris 03/03/2017 Documentation Transplant Chase Roman RN 03/02/2017 Hospital Encounter Transplant Donald Epstein [...] vein (Primary Dx) 02/26/2017 Documentation Transplant Chase Roman RN 02/26/2017 Telephone Transplant Davis, Left leg circulation PEREZ Diaz issues after 02/23/2017 Family History Medical History Relation Name Comments [...] Vital Sign Reading Time Taken Blood Pressure 173/81 02/01/2018 9:10 AM CDT Pulse 77 02/01/2018 9:10 AM CDT Temperature 36.4 C (97.5 F) 02/01/2018 9:10 AM CDT Respiratory Rate 16 02/01/2018 9:10 AM CDT Oxygen Saturation 95% 02/01/2018 9:10 AM CDT Inhaled Oxygen Concentration - - Weight 90.2 kg (198 lb 12.8 oz) 02/01/2018 9:10 AM CDT Height 175.3 cm (5' 9") 02/01/2018 9:10 AM CDT Body Mass Index 29.36 02/01/2018 9:10 AM CDT Plan of Treatment Date Type Specialty Care Team Description 04/20/2018 Office Visit Endocrinology Britney Maloney MD [address] [facility] [address] [place] [address] Health Maintenance Due Date Last Done Comments COLON CANCER SCREENING 1993 SHINGRIX VACCINE (#1) 1993 ZOSTER VACCINE 2003 PNEUMOCOCCAL POLYSACCHARIDE VACCINE 2008 AGE 65 AND OVER PNEUMOCOCCAL-13 2008 INFLUENZA VACCINE 04/27/2018 DIABETIC FOOT EXAM 07/20/2018 07/20/2017, 07/20/2017, 10/12/2016, Additional history exists DIABETIC RETINAL EYE EXAM 07/06/2019 07/06/2017, 06/15/2016, 06/27/2015 Procedures Procedure Name Priority Date/Time Associated Diagnosis Comments ECHOCARDIOGRAM 2D STAT 01/18/2018 12:36 Results for this COMPLETE W MMODE PM CDT procedure are in SPECTRAL COLOR DOPPLER the results (46387) section. ECHOCARDIOGRAM 2D Routine 11/08/2017 3:44 Heart replaced by Results for this COMPLETE W MMODE PM [employer]AMP [employer]ADES SUPERVISOR transplant procedure are in SPECTRAL COLOR DOPPLER the results (28999) section. CV STRESS TEST NUCLEAR Routine 11/08/2017 12:19 Heart replaced by Results for this CARDIO PM [employer]AD[employer] SUPERVISOR transplant procedure are in Complication of the results transplanted organ section. 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 Component Value Ref Range Cytomegalovirus by PCR Not-Detected Not-Detected IU/mL Cytomegalovirus by PCR See link below for PDF Lab ReportComment: Specimen Performing Laboratory [facility] DEPARTMENT OF PATHOLOGY AND [facility] [address] [place] [address] Estimated GFR (01/28/2018 10:50 AM)Only the most recent of10 resultswithin the time period is included. Component Value Ref Range GFR Non Af Amer 40 (A) mL/min/1.73 m2 GFR Af Amer 48 (A) mL/min/1.73 m2 Comment: Chronic kidney disease: [...] and Americans. Specimen Performing Laboratory Plasma specimen [facility] DEPARTMENT OF PATHOLOGY AND [facility] [address] [place] [phone] FK506 level (01/28/2018 10:50 AM)Only the most recent of8 resultswithin the time period is included. Component Value Ref Range FK506 level 5.5 ng/mL Comment: Therapeutic range 5-20 ng/mL for 12 hour trough. The range varies depending on the organ transplanted, time after transplantation and co-administered immunosuppressant therapies. Please use clinical judgment to interpret test result. Test performed using [employer] Cover[employer]ch chemiluminescent microparticle immunoassay for Tacrolimus on the [employer] i System. Specimen Performing Laboratory Blood [facility] DEPARTMENT OF PATHOLOGY AND [facility] [address] [place] [phone] Troponin (01/28/2018 10:50 AM)Only the most recent of4 resultswithin the time period is included. Component [...] myocardial injury. Specimen Performing Laboratory Plasma specimen [facility] DEPARTMENT OF PATHOLOGY AND GENOMIC MEDICINE [address] [place] [address] Urinalysis, automated with microscopy (01/28/2018 10:50 AM) Component Value Ref Range Color, UA Straw Appearance, UA Clear Specific gravity, UA 1.014 1.001 - 1.035 pH, UA 6.0 5.0 - 8.5 Protein, UA 2+ (A) Negative Glucose, UA Negative Negative Ketones, UA Negative Negative Bilirubin, UA Negative Negative Blood, UA Negative Negative Nitrite, UA Negative Negative Urobilinogen, UA <2.0 <2.0 Leukocyte esterase, UA Negative Negative WBC, UA <1 0 - 1 /HPF RBC, UA None seen 0 - 5 /HPF Bacteria, UA Few None seen Hyaline casts, UA 14 /LPF Yeast, UA None seen Yeast with pseudohyphae, UA None seen Specimen Performing Laboratory Urine [facility] DEPARTMENT OF PATHOLOGY AND [address] [address] Prothrombin time with INR (01/28/2018 10:50 AM)Only the most recent of4 resultswithin the time period is included. Component Value Ref Range Prothrombin time 15.3 (H) 12.0 - 15.0 sec INR 1.2 Comment: The International Normalized Ratio (INR) is a therapeutic monitoring tool for patients who are stable on oral anticoagulant therapy. An INR of 2.0-3.0 is suggested for deep vein thrombosis/pulmonary embolism. Specimen Performing Laboratory Blood [facility] DEPARTMENT OF PATHOLOGY AND [facility] [address] [place] [phone] CBC with platelet and differential (01/28/2018 10:50 AM)Only the most recent of9 resultswithin the time period is included. Component Value Ref Range WBC 7.86 4.50 - 11.00 k/uL RBC 3.86 (L) 4.40 - 6.00 m/uL HGB 12.6 (L) 14.0 - 18.0 g/dL HCT 37.6 (L) 41.0 - 51.0 % MCV 97.4 82.0 - 100.0 fL MCH 32.6 27.0 - 34.0 pg MCHC 33.5 31.0 - 37.0 g/dL RDW - SD 46.3 37.0 - 55.0 fL MPV 10.1 8.8 - 13.2 fL Platelet count 171 150 - 400 k/uL Nucleated RBC 0.00 /100 WBC Neutrophils 73.6 (H) 39.0 - 69.0 % Lymphocytes 17.2 (L) 25.0 - 45.0 % Monocytes 7.3 0.0 - 10.0 % Eosinophils 0.6 0.0 - 5.0 % Basophils 0.5 0.0 - 1.0 % Immature granulocytes 0.8Comment: "Immature granulocytes" 0.0 - 1.0 % (promyelocytes, myelocytes, metamyelocytes) Specimen Performing Laboratory Blood [facility] DEPARTMENT OF PATHOLOGY AND [facility] [address] [place] [address] B natriuretic peptide (01/28/2018 10:50 AM)Only the most recent of3 resultswithin the time period is included. Component Value Ref Range BNP 149 (H) 0 - 100 pg/mL Specimen Performing Laboratory Blood [facility] [address] [address] Magnesium level (01/28/2018 10:50 AM)Only the most recent of5 resultswithin the time period is included. Component Value Ref Range Magnesium 2.0 1.6 - 2.4 mg/dL Specimen Performing Laboratory Plasma specimen [facility] DEPARTMENT PATHOLOGY [address] [address] LDH (01/28/2018 10:50 AM)Only the most recent of3 resultswithin the time period is included. Component Value Ref Range LDH 187 87 - 225 U/L Specimen Performing Laboratory Plasma specimen [facility] [address] [address] Comprehensive metabolic panel (01/28/2018 10:50 AM)Only the most recent of3 resultswithin the time period is included. Component Value Ref Range Sodium 143 135 - 148 mEq/L Potassium 4.3 3.5 - 5.0 mEq/L Chloride 103 98 - 112 mEq/L CO2 27 24 - 31 mEq/L Anion gap 13 7 - 15 mEq/L Comment: Starting from December , anion gap calculation no longer incorporates potassium. Please note the change. BUN 31 (H) 8 - 23 mg/dL Creatinine 1.7 (H) 0.7 - 1.2 mg/dL Glucose 126 (H) 65 - 99 mg/dL Calcium 9.3 8.8 - 10.2 mg/dL Protein 7.2 6.3 - 8.3 g/dL Comment: [place] 4.6-7.0 g/dL 1 week 4.4-7.6 g/dL 7 months-1year5.1-7.3 g/dL 1-2 years5.6-7.5 g/dL >3 years6.0-8.0 g/dL 18-150 6.3-8.3 g/dL Albumin 3.4 (L) 3.5 - 5.0 g/dL A/G ratio 0.9 0.7 - 3.8 Alkaline phosphatase 68 40 - 129 U/L AST 17 10 - 50 U/L ALT 23 5 - 50 U/L Total bilirubin 0.4 0.0 - 1.2 mg/dL Specimen Performing Laboratory Plasma specimen [facility] DEPARTMENT OF PATHOLOGY AND GENOMIC MEDICINE [address] [place] [address] POC glucose (01/22/2018 8:24 AM)Only the most recent of21 resultswithin the time period is included. Component Value Ref Range POC glucose 186 (H) 65 - 99 mg/dL Comment: [facility] Notified RN Meter ID: [id number] [employer] Instructor: Valentina Bishop Specimen Performing Laboratory [facility] DEPARTMENT OF PATHOLOGY AND [facility] [address] [place] [phone] Basic metabolic panel (01/22/2018 4:00 AM)Only the most recent of7 resultswithin the time period is included. Component Value Ref Range Sodium 140 135 - 148 mEq/L Potassium 4.5 3.5 - 5.0 mEq/L Chloride 100 98 - 112 mEq/L CO2 27 24 - 31 mEq/L Anion gap 13 7 - 15 mEq/L Comment: Starting from December , anion gap calculation no longer incorporates potassium. Please note the change. BUN 29 (H) 8 - 23 mg/dL Creatinine 1.7 (H) 0.7 - 1.2 mg/dL Glucose 117 (H) 65 - 99 mg/dL Calcium 9.5 8.8 - 10.2 mg/dL Specimen Performing Laboratory Plasma specimen [facility] DEPARTMENT OF PATHOLOGY AND GENOMIC MEDICINE [address] [place] [phone] Gastrointestinal panel (01/20/2018 3:50 PM) Component Value Ref Range Gastrointestinal panel Negative for all pathogens tested: Negative for Salmonella Negative for Campylobacter Negative for Diarrheagenic E coli/Shigella Negative for Shiga-like toxin-producing E coli Negative for Plesiomonas shigelloides Negative for Yersinia enterocolitica Negative for Vibrio species Negative for Clostridium difficile (Toxin A/B) Negative for Cryptosporidium Negative for Giardia lamblia Negative for Cyclospora cayeteanensis Negative for Entamoeba histolytica Negative for Adenovirus F 40/41 Negative for Astrovirus Negative for Norovirus GI/GII Negative for Rotavirus A Negative for Sapovirus Negative for Clostridium difficile toxin Negative for E coli 0157 This real-time PCR assay detects the presence of nucleic acids (RNA or DNA) for the gastrointestinal pathogens listed. A result of "Not-detected" does not exclude the possibility of the presence of one or more pathogens at concentrations less than the detectable limits of the assay. Comment: Specimen Information Specimen Source: Stool Specimen Site: Nonpreserved Specimen Performing Laboratory Stool - Nonpreserved [facility] [place] [address] Phosphorus level (01/20/2018 6:00 AM)Only the most recent of3 resultswithin the time period is included. Component Value Ref Range Phosphorus 2.1 (L) 2.4 - 4.5 mg/dL Specimen Performing Laboratory Plasma specimen [facility] [place] [address] Aerobic culture (01/19/2018 5:40 PM) Component Value Ref Range Aerobic culture isolate No growth after 3 days. Comment: Specimen Information Specimen Source: Wound Specimen Site: Hand Specimen Performing Laboratory Wound - Hand [facility] [place] [address] Gram stain (01/19/2018 5:40 PM) Component Value Ref Range Gram stain isolate Few WBC's No organisms seen Comment: Specimen Information Specimen Source: Wound Specimen Site: Hand Specimen Performing Laboratory Wound - Hand [facility] [place] [address] Echocardiogram complete w contrast and 3D if needed (01/18/2018 12:36 PM) Specimen Performing Laboratory [facility] [address] [place] [address] Narrative Echocardiography Report [address] [address] Pat.Name:TAQUERIA JENKINS [facility].ID:[id number] St.Date: 01/18/2018 Refer.MD:GENE MUNIZ M.D. Exam Time: 12:15:00 PM Study Type:Routine Echo Height:70inWeight: 192lb BSA: 2.05 m2 DOBAge:1945,72Y Sex: MALEBP:139/68 HR:85 bpmSonogrphr: Dian Witt [facility] Pat. Stat.:Inpatient Room:D 402 Study Status:Final Echo Event ID:[id number] Order ID:[id number] Reason for Study:Post OHT SOB History / Clinical:Arrhythmias, COPD, Heart Transplant Procedures:2D Echo, Colorflow Doppler Race:C SUMMARY: LV EF is normal. Estimated EF is 60-64%. RV systolic function is normal. LV filling pressure is elevated. Estimated PA systolic pressure is 40 mmHg, assuming a mean RAP of 10 mmHg. FINDINGS: LV: LV size is normal. LV EF is normal. Overall wall motion is normal.Estimated EF is 60-64%. RV: RV size is normal. RV systolic function is normal. LA: Left atrial chamber size: dilated (post-transplant). RA: Right atrial chamber size: dilated (post-transplant). AO: Aortic root diameter is normal. ROSLYN: No pericardial effusion. AV: No structural AV abnormalities noted. MV: No structural MV abnormalities noted. PV: No structural PV abnormalities noted. TV: No structural TV abnormalities noted. Mild tricuspid regurgitation Mascorro: LV relaxation is impaired. LV filling pressure is elevated. Other:Estimated PA systolic pressure is 40 mmHg, assuming a mean RAPof 10 mmHg. MEASUREMENTS: 2D Parasternal Long [place] LVOT 2 cmLA Ds4.3 cm LVIDd4.4 cmIndex 2.1 cm/m Ao An2.1 cm LVIDs2.5 cmAo Rtd 2.8 cm Index1.4 cm/m LV%fs 43.2 % LV Bjdb914.3 g(122-174) IVSd 1.3 cmLVM Index 93.3 g/m2 LVPWd1.1 cmRWT0.5 LA Sng Plane LA Area 22.3 cm2(8.8-23.4) LA Vol68.9 ml Index33.6 ml/m LA LngAx 6.1 cm RA Sng Plane RA Area 21.7 cm2(8.3-19.5) RA Vol53.9 ml Index26.3 ml/m RA LngAx 7.4 cm DOPPLER LVOT For Flow LVOT Area3.1 cm2 LVOT SV 59.8 ml LVOTpkVel 96.4 cm/sHR77.4 bpm LVOTpkPG 3.7 mmHgLVOT CO 4.6 l/min LVOTmnPG 1.9 mmHgLVOT CI 2.3 l/m/m2 LVOT TVI19 cm Signed 01/18/2018 04:51 PM Marlon Rizzo M.D. Procedure Note Interface, Radiology Results In - 01/18/2018 4:51 PM CDT Echocardiography Report [address] [place] [address] Pat.Name: TAQUERIA JENKINS Pat.ID: [id number] .Date: 01/18/2018 Refer.MD: GENE MUNIZ M.D. Exam Time: 12:15:00 PM Study Type:Routine Echo Height: 70in Weight: 192lb BSA: 2.05 m2 Age: 2 1945,72Y Sex: MALE BP: 139/68 HR: 85 bpm Sonogrphr: DMITRIY Enciso Pat. Stat.:Inpatient Room: [facility] Study Status:Final Echo Event ID:[id number] Order ID: [id number] Reason for Study:Post OHT SOB History / Clinical:Arrhythmias, COPD, Heart Transplant Procedures:2D Echo, Colorflow Doppler Race: C SUMMARY: LV EF is normal. Estimated EF is 60-64%. RV systolic function is normal. LV filling pressure is elevated. Estimated PA systolic pressure is 40 mmHg, assuming a mean RAP of 10 mmHg. FINDINGS: LV: LV size is normal. LV EF is normal. Overall wall motion is normal. Estimated EF is 60-64%. RV: RV size is normal. RV systolic function is normal. LA: Left atrial chamber size: dilated (post-transplant). RA: Right atrial chamber size: dilated (post-transplant). AO: Aortic root diameter is normal. ROSLYN: No pericardial effusion. AV: No structural AV abnormalities noted. MV: No structural MV abnormalities noted. PV: No structural PV abnormalities noted. TV: No structural TV abnormalities noted. Mild tricuspid regurgitation Mascorro: LV relaxation is impaired. LV filling pressure is elevated. Other: Estimated PA systolic pressure is 40 mmHg, assuming a mean RAP of 10 mmHg. MEASUREMENTS: 2D Parasternal Long [place] LVOT 2 cm LA Ds 4.3 cm LVIDd 4.4 cm Index 2.1 cm/m Ao An 2.1 cm LVIDs 2.5 cm Ao Rtd 2.8 cm Index 1.4 cm/m LV%fs 43.2 % LV Mass 191.3 g (122-174) IVSd 1.3 cm LVM Index 93.3 g/m2 LVPWd 1.1 cm RWT 0.5 LA Sng Plane LA Area 22.3 cm2 (8.8-23.4) LA Vol 68.9 ml Index 33.6 ml/m LA LngAx 6.1 cm RA Sng Plane RA Area 21.7 cm2 (8.3-19.5) RA Vol 53.9 ml Index 26.3 ml/m RA LngAx 7.4 cm DOPPLER LVOT For Flow LVOT Area 3.1 cm2 LVOT SV 59.8 ml LVOTpkVel 96.4 cm/s HR 77.4 bpm LVOTpkPG 3.7 mmHg LVOT CO 4.6 l/min LVOTmnPG 1.9 mmHg LVOT CI 2.3 l/m/m2 LVOT TVI 19 cm Signed 01/18/2018 04:51 PM Marlon Rizzo M.D. Pv duplex venous upper extremity (01/18/2018 12:00 PM) Specimen Performing Laboratory [facility] [address] Vascular Ultrasound Laboratory Upper Extremity Venous Report [address] [address] Pat.Name:TAQUERIA JENKINS [facility].ID:[id number] .Date: 01/18/2018 Refer.MD:GENE MUNIZ MD Exam Time: 11:32:00 AM Study Type:UE Venous Height:69inWeight: 192lb BSA: 2.03 m2 DOBAge:1945,72Y Sex: MALESonogrphr: Vianey Morgan RVT Pat. Stat.:Inpatient Room:[address] TapeVol: , CPT - 4: 60610 Echo Event ID:[id number] Order ID:[id number] Reason for Study:Left forearm pain and edema.History of cellulitis, abdominal pain CKDand DM. Race:C SUMMARY: DUPLEX SCAN OBSERVATIONS Right Left IJ ____ Normal SubclavianNormal Normal Axillary___ Normal Brachial___ Normal Basilic Normal Cephalic____ Normal RIGHT:There is normal compressibility and no evidence of echogenic material noted within the lumen of the subclavian vein. Colorflow and Doppler signals are normal. LEFT:There is normal compressibility and no evidence of echogenic material noted within the lumen of the visualized veins. Colorflow and Doppler signals are normal. PRELIMINARY FINDINGS 1. No evidence of deep venous thrombosis of the visualized veins. PHYSICIAN INTERPRETATION Venous examination of the left upper extremity and neck and right subclavian demonstrated no evidence of venous thrombosis. Signed 01/18/2018 02:41 PM Willi Olivarez MD Procedure Note Interface, Radiology Results In - 01/18/2018 2:42 PM CDT Vascular Ultrasound Laboratory Upper Extremity Venous Report [address] [place] [address] Pat.Name: TAQUERIA JENKINS [facility].ID: [id number] St.Date: 01/18/2018 Refer.MD: GENE MUNIZ MD Exam Time: 11:32:00 AM Study Type:UE Venous Height: 69in Weight: 192lb BSA: 2.03 m2 Age: 2 1945,72Y Sex: MALE Sonogrphr: Vianey Morgan RVT Pat. Stat.:Inpatient Room: [address] Tape Vol: YM, CPT - 4: 78447 Echo Event ID:[id number] Order ID: [id number] Reason for Study:Left forearm pain and edema. History of cellulitis, abdominal pain CKDand DM. Race: C SUMMARY: DUPLEX SCAN OBSERVATIONS Right Left IJ ____ Normal Subclavian Normal Normal Axillary ___ Normal Brachial ___ Normal Basilic Normal Cephalic ____ Normal RIGHT:There is normal compressibility and no evidence of echogenic material noted within the lumen of the subclavian vein. Colorflow and Doppler signals are normal. LEFT:There is normal compressibility and no evidence of echogenic material noted within the lumen of the visualized veins. Colorflow and Doppler signals are normal. PRELIMINARY FINDINGS 1. No evidence of deep venous thrombosis of the visualized veins. PHYSICIAN INTERPRETATION Venous examination of the left upper extremity and neck and right subclavian demonstrated no evidence of venous thrombosis. Signed 01/18/2018 02:41 PM Willi Olivarez MD Respiratory pathogen panel (01/18/2018 10:15 AM) Component Value Ref Range Respiratory pathogen panel Negative for all pathogens tested: Negative for Adenovirus Negative for Coronavirus HKU1 Negative for Coronavirus NL63 Negative for Coronavirus 229E Negative for Coronavirus OC43 Negative for Human Metapneumovirus Negative for Rhinovirus/Enterovirus Negative for Influenza A Negative for Influenza A/H1 Negative for Influenza A/H3 Negative for Influenza A/H1-2009 Negative for Influenza B Negative for Parainfluenza Virus 1 Negative for Parainfluenza Virus 2 Negative for Parainfluenza Virus 3 Negative for Parainfluenza Virus 4 Negative for Respiratory Syncytial Virus Negative for Bordetella pertussis Negative for Chlamydophila pneumoniae Negative for Mycoplasma pneumoniae This real-time PCR assay detects the presence of nucleic acids (RNA or DNA) for the respiratory pathogens listed. A result of "Not-detected" does not exclude the possibility of the presence of one or more pathogens at concentrations less than the detectable limits of the assay. Comment: Specimen Information Specimen Source: Nares Specimen Site: Right Specimen Performing Laboratory [facility] DEPARTMENT OF PATHOLOGY AND GENOMIC MEDICINE [address] [place] [address] CBC hemogram (01/18/2018 10:15 AM) Component Value Ref Range WBC 17.77 (H) 4.50 - 11.00 k/uL RBC 3.92 (L) 4.40 - 6.00 m/uL HGB 12.6 (L) 14.0 - 18.0 g/dL HCT 39.2 (L) 41.0 - 51.0 % MCV 100.0 82.0 - 100.0 fL MCH 32.1 27.0 - 34.0 pg MCHC 32.1 31.0 - 37.0 g/dL RDW - SD 50.5 37.0 - 55.0 fL MPV 11.1 8.8 - 13.2 fL Platelet count 123 (L) 150 - 400 k/uL Nucleated RBC 0.00 /100 WBC Specimen Performing Laboratory Blood [facility] DEPARTMENT OF PATHOLOGY AND [address] [address] Immunoglobulin G (01/18/2018 10:15 AM) Component Value Ref Range IgG 759 700 - 1,600 mg/dL Specimen Performing Laboratory Plasma specimen [facility] DEPARTMENT OF PATHOLOGY AND [address] [address] Vancomycin level, random (01/18/2018 10:15 AM) Component Value Ref Range Vancomycin, random 6.1 ug/mL Specimen Performing Laboratory Serum [facility] DEPARTMENT OF PATHOLOGY AND [address] [address] [address] Chest Wo Contrast (01/18/2018 9:47 AM) Specimen Performing Laboratory [facility] [address] [place] [address] Narrative EXAMINATION: CT CHEST WO CONTRAST CLINICAL HISTORY: SOB fever TECHNIQUE:Axial images of the chest were obtained without intravenous contrast. The lack of intravenous contrast reduces the sensitivity of the exam and evaluating vasculature. CT imaging was performed with iterative reconstruction technique and/or automated exposure control to reduce radiation dose. COMPARISON:Chest radiograph dated 11/08/2017. Chest CT dated 07/05/2014 FINDINGS: CHEST: 1. Aorta: The thoracic aorta is nonaneurysmal. Postsurgical changes are present from cardiac transplantation. Atherosclerosis of the great vessels. 2. Heart: Mild cardiomegaly. 3. Pericardial Fluid: No pericardial effusion. 4. Mediastinum: No significant adenopathy is seen at the base of the neck. There are no enlarged lymph nodes present in either axilla. No enlarged mediastinal or hilar lymph nodes by CT size criteria. The thoracic esophagus appears grossly unremarkable. 5. Airways: Central airways are patent. There is no evidence of a discrete endobronchial lesion. Mild peripheral airway wall thickening is seen. 6. Lungs: Upper lobe predominant paraseptal emphysema and mild centrilobular emphysema is seen. There are couple of tiny scattered calcified granulomata present. The left hemidiaphragm is elevated and there is associated volume loss in the base of the left upper lobe and base of the left lower lobe. No focal infiltrate is seen to suggest pneumonia. No suspicious lung nodules are present. There is a 3 mm nodule in the periphery of the right upper lobe on series 3, image 69 which is likely postinfectious or inflammatory. 7. Pleural Fluid: No pleural effusions. 8. Bones: Degenerative changes of the osseous structures. No suspicious lesions. 9. Upper Abdomen: No visible free air or fluid is seen in the upper abdomen. Limited assessment of the solid organs in the absence of intravenous contrast. Prior cholecystectomy. There is a cyst measuring up to 3.2 cm in segment 5 of the liver. Atrophy and fatty infiltration of the pancreas. Atherosclerosis of the abdominal aorta. 10. Other Findings: None IMPRESSION: Emphysema and chronic bronchitis without evidence of underlying pneumonia. [facility]-[id number] Procedure Note [facility], Radiology Results Incoming - 01/18/2018 10:17 AM CDT EXAMINATION: CT CHEST WO CONTRAST CLINICAL HISTORY: SOB fever TECHNIQUE: Axial images of the chest were obtained without intravenous contrast. The lack of intravenous contrast reduces the sensitivity of the exam and evaluating vasculature. CT imaging was performed with iterative reconstruction technique and/or automated exposure control to reduce radiation dose. COMPARISON: Chest radiograph dated 11/08/2017. Chest CT dated 07/05/2014 FINDINGS: CHEST: 1. Aorta: The thoracic aorta is nonaneurysmal. Postsurgical changes are present from cardiac transplantation. Atherosclerosis of the great vessels. 2. Heart: Mild cardiomegaly. 3. Pericardial Fluid: No pericardial effusion. 4. Mediastinum: No significant adenopathy is seen at the base of the neck. There are no enlarged lymph nodes present in either axilla. No enlarged mediastinal or hilar lymph nodes by CT size criteria. The thoracic esophagus appears grossly unremarkable. 5. Airways: Central airways are patent. There is no evidence of a discrete endobronchial lesion. Mild peripheral airway wall thickening is seen. 6. Lungs: Upper lobe predominant paraseptal emphysema and mild centrilobular emphysema is seen. There are couple of tiny scattered calcified granulomata present. The left hemidiaphragm is elevated and there is associated volume loss in the base of the left upper lobe and base of the left lower lobe. No focal infiltrate is seen to suggest pneumonia. No suspicious lung nodules are present. There is a 3 mm nodule in the periphery of the right upper lobe on series 3, image 69 which is likely postinfectious or inflammatory. 7. Pleural Fluid: No pleural effusions. 8. Bones: Degenerative changes of the osseous structures. No suspicious lesions. 9. Upper Abdomen: No visible free air or fluid is seen in the upper abdomen. Limited assessment of the solid organs in the absence of intravenous contrast. Prior cholecystectomy. There is a cyst measuring up to 3.2 cm in segment 5 of the liver. Atrophy and fatty infiltration of the pancreas. Atherosclerosis of the abdominal aorta. 10. Other Findings: None IMPRESSION: Emphysema and chronic bronchitis without evidence of underlying pneumonia. [facility]-[id number] CT Upper Extremity Wo Left (01/18/2018 9:47 AM) Specimen Per[facility] [address] [place] [address] Narrative EXAMINATION:CT UPPER EXTREMITY WO LEFT INDICATION:Dislocation. COMPARISON: None available. TECHNIQUE: Helical axial CT images of the left upper extremity were acquired without intravenous contrast. Sagittal and coronal plane reformats were reviewed. Automated dose control and/or iterative reconstruction was used to reduce patient dose. IMPRESSION: 1.No evidence of glenohumeral dislocation. 2.No visible acute fracture of the humerus is seen. Small focus of calcific tendinopathy involving the infraspinatus footprint. The acromion is intact. The coracoid process is intact. There is no evidence of a glenoid fracture. No evidence of a scapular body fracture. 3.Type II acromion process. Moderate acromioclavicular osteoarthrosis. Mild to moderate glenohumeral osteoarthrosis. 4.Other findings: There is no evidence of a subacute left rib fracture. Please see concurrently performed chest CT for additional findings and details. Procedure Note Interface, Radiology Results Incoming - 01/18/2018 10:11 AM CDT EXAMINATION: CT UPPER EXTREMITY WO LEFT INDICATION: Dislocation. COMPARISON: None available. TECHNIQUE: Helical axial CT images of the left upper extremity were acquired without intravenous contrast. Sagittal and coronal plane reformats were reviewed. Automated dose control and/or iterative reconstruction was used to reduce patient dose. IMPRESSION: 1. No evidence of glenohumeral dislocation. 2. No visible acute fracture of the humerus is seen. Small focus of calcific tendinopathy involving the infraspinatus footprint. The acromion is intact. The coracoid process is intact. There is no evidence of a glenoid fracture. No evidence of a scapular body fracture. 3. Type II acromion process. Moderate acromioclavicular osteoarthrosis. Mild to moderate glenohumeral osteoarthrosis. 4. Other findings: There is no evidence of a subacute left rib fracture. Please see concurrently performed chest CT for additional findings and details. Lactic acid level (01/18/2018 2:58 AM)Only the most recent of2 resultswithin the time period is included. Component Value Ref Range Lactic acid 1.8 0.5 - 2.2 mmol/L Specimen Performing Laboratory Blood [facility] DEPARTMENT OF PATHOLOGY AND GENOMIC MEDICINE [address] [place] [address] ECG 12 lead (01/18/2018 2:52 AM)Only the most recent of2 resultswithin the time period is included. Component Value Ref Range Ventricular rate 88 Atrial rate 88 PA interval 146 QRSD interval 84 QT interval 366 QTC interval 442 P axis 1 70 QRS axis 1 57 T wave axis 90 EKG impression Normal sinus rhythm-Possible Inferior infarct , age undetermined-Abnormal ECG-In automated comparison with ECG of 09-NOV-2017 11:44,-No significant change was found- Specimen Performing Laboratory [facility] MUSE [address] [place] [address] Blood culture, aerobic & anaerobic (01/17/2018 11:13 PM)Only the most recent of2 resultswithin the time period is included. Component Value Ref Range Blood culture isolate No growth after 5 days of incubation. Comment: Specimen Information Specimen Source: Blood Specimen Site: Wrist, right Specimen Performing Laboratory Blood - Wrist, right [facility] OF PATHOLOGY AND GENOMIC MEDICINE [address] [place] [address] Hemoglobin A1c (01/17/2018 11:00 PM)Only the most recent of2 resultswithin the time period is included. Component Value Ref Range Hemoglobin A1C 6.3 (H) 4.0 - 5.6 % Comment: HbA1c cutoffs for diagnosing diabetes: 4.0% - 5.6%=normal 5.7% - 6.4%=increased risk for diabetes (prediabetes) >=6.5%=diabetes Goals for glycemic control (ADA 2016) < 7.0%Target for non adults with diabetes. More or less stringent targets may be appropriate for individual patients. <7.5% Target for Children and adolescents with type 1 diabetes. Specimen Performing Laboratory Blood [facility] DEPARTMENT OF PATHOLOGY AND GENOMIC MEDICINE [address] [place] [address] Echocardiogram complete w contrast and 3D if needed (11/08/2017 3:44 PM) Specimen Performing Laboratory [facility] [address] [place] [id number] Narrative Echocardiography Report [address] [facility] [address], [place] [address] Pat.Name:TAQUERIA JENKINS.ID:[id number] .Date: 11/08/2017 Refer.MD:DONALD EPSTEIN MD Exam Time: 3:44:00 PMStudy Type:Routine Echo Height:70inWeight: 193lb BSA: 2.06 m2 DOBAge:1945,72Y Sex: MALEBP:179/87 HR:82 bpm Sonogrphr: Nadira Rodriguez RDCS, RVT Pat. Stat.:OutpatientRoom:Treatment 3 Study Status:Final Echo Event ID:[id number] Order ID:[id number] Reason for Study:VAD and Cardiac Transplantation - [...] RAPof 10 mmHg. MEASUREMENTS: 2D Parasternal Long [place] Ao An2 cmLVPWd0.9 cm LVOT 1.8 cmLA Ds4.8 cm LVIDd4.7 cmIndex 2.3 cm/m Ao Rtd 3 cm Index1.5 cm/m LVIDs3 cm LV Avxf130.4 g(122-174) LV%fs 36.5 % LVM Index 82.2 g/m2 IVSd 1.2 cmRWT0.4 LA Sng Plane LA Area 29.5 cm2(8.8-23.4) LA Vol 89 ml Index43.2 ml/m LA LngAx 7.9 cm Signed 11/09/2017 06:19 PM Meaghan Feliciano M.D. Procedure Note Interface, Radiology Results In - 11/09/2017 6:19 PM [facility] Echocardiography Report [address] [place] [address] Pat.Name: TAQUERIA JENKINS Pat.ID: [id number] .Date: 11/08/2017 Refer.MD: DONALD EPSTEIN MD Exam Time: 3:44:00 PM Study Type:Routine Echo Height: 70in Weight: 193lb BSA: 2.06 m2 Age: 2 1945,72Y Sex: MALE BP: 179/87 HR: 82 bpm Sonogrphr: Nadira Rodriguez RDCS, RVT Pat. Stat.:Outpatient Room: Treatment 3 Study Status:Final Echo Event ID:[id number] Order ID: [id number] Reason for Study:VAD and Cardiac Transplantation - [...] of 10 mmHg. MEASUREMENTS: 2D Parasternal Long [place] Ao An 2 cm LVPWd 0.9 cm [...] report.-Electronically Signed By Lola BLANK, Justen Matias ([id number]), commercial production editor Key Scott ([id number]) on 11/08/2017 1:36:13 PM Specimen Performing Laboratory [facility] MUSE [address] [place] [address] Stress test with myocardial perfusion (11/08/2017 12:19 PM) Specimen Performing Laboratory [facility] [address] [place] [address] Narrative Nuclear Cardiology and Cardiac CT [address] [place] [address] Myocardial Perfusion Imaging Report Stress ECG tracings are available in [employer], [facility] and [employer] All ECG interpretations are included in this report Pat.Name:TAQUERIA JENKINS TPat.ID:[id number] St.Date: 11/08/2017 Refer.MD:DONALD EPSTEIN MD Exam Time: 11:16:00 AM Study Type:Myocardial Perfusion Imaging Height:69inWeight: 193lb BSA: 2.04 m2 DOBAge:1945,72Y Sex: MALEBP:179/87 HR:74 bpm Nuclear Tech:Grecia Urias, [facility], ARRT(N), Giselle Jackson, [facility], [facility] Pat. Stat.:OutpatientNuclear Event ID:[id number] Order ID:[id number] Reason for Study:Annual Post Heart Transplant Evaluation History / Clinical:Heart Transplant, Congestive heart failure, Coronary artery disease, Diabetes, Family history CAD, Hypertension Procedures:Stress only Race: Risk Factors:Diabetes, Cardiovascular Disease, Hypertension, Family history of cardiovascular disease Clinical Symptoms:Regadenoson Physical Exam:S1, S2 Surgery: Outpatient Medications:Amlodipine, Aspirin, Zaroxyln, Imdur, Demadex, Folic acid, [place] 3, Thiamine, Insulin, Labetolol SUMMARY: SCINTIGRAPHIC RESULTS [...] Radiology Results In - 11/08/2017 5:50 PM LAMP SHADES SUPERVISOR Nuclear Cardiology and Cardiac CT [address] [place] [address] Myocardial Perfusion Imaging Report Stress ECG tracings are available in [employer], [facility] and [employer] [facility] All ECG interpretations are included in this report Pat.Name: TAQUERIA JENKINS Pat.ID: [id number] St.Date: 11/08/2017 Refer.MD: DONALD EPSTEIN MD Exam Time: 11:16:00 AM Study Type:Myocardial Perfusion Imaging Height: 69in Weight: 193lb BSA: 2.04 m2 Age: 2 1945,72Y Sex: MALE BP: 179/87 HR: 74 bpm Nuclear Tech:Grecia Urias, CH[employer] WORKER, ARRT(N), LISSETH PérezT, NMTCB Pat. Stat.:Outpatient Nuclear Event ID:[id number] Order ID: [id number] Reason for Study:Annual Post Heart Transplant Evaluation History / Clinical:Heart Transplant, Congestive heart failure, Coronary artery disease, Diabetes, Family history CAD, Hypertension Procedures:Stress only Race: Risk Factors:Diabetes, Cardiovascular Disease, Hypertension, Family history of cardiovascular disease Clinical Symptoms:Regadenoson Physical Exam:S1, S2 Surgery: Outpatient Medications:Amlodipine, Aspirin, Zaroxyln, Imdur, Demadex, Folic acid, [place] 3, Thiamine, Insulin, Labetolol SUMMARY: SCINTIGRAPHIC RESULTS [...] time period is included. Specimen Performing Laboratory [facility] [address] [place] [address] Narrative Study:XR CHEST 2 VW History: Z94.1 Heart transplant status, T86.90 Unspecified complication of unspecified transplanted organ and tissue, Cough COMPARISON: August 05, 2017 IMPRESSION: 2 views of the chest.There is no focal consolidation, pleural effusion or pneumothorax.Cardiac silhouette is normal.Visualized osseous structures arestable. [id number] Procedure Note Interface, Radiology Results Incoming - 11/08/2017 10:14 AM LAMP SHADES SUPERVISOR Study:XR CHEST 2 VW History: Z94.1 Heart transplant status, T86.90 Unspecified complication of unspecified transplanted organ and tissue, Cough COMPARISON: August 05, 2017 IMPRESSION: 2 views of the chest. There is no focal consolidation, pleural effusion or pneumothorax. Cardiac silhouette is normal. Visualized osseous structures are stable. [id number] Bone Density Peripheral (11/08/2017 9:58 AM) Specimen Performing Laboratory [facility] [address] [place] [address] Narrative EXAMINATION:BONE DENSITY PERIPHERAL CLINICAL HISTORY:Z94.1 Heart transplant status COMPARISON:10/12/2016 Impression: 1.See accession #IM [id number]. [id number] Procedure Note Interface, Radiology Results Incoming - 11/08/2017 10:29 AM LAMP SHADES SUPERVISOR EXAMINATION: BONE DENSITY PERIPHERAL CLINICAL HISTORY: Z94.1 Heart transplant status COMPARISON: 10/12/2016 Impression: 1. See accession #IM [id number]. [id number] Bone Density (11/08/2017 9:56 AM) Specimen [facility]forming Laboratory [facility] [address] [place] [address] Narrative EXAMINATION:BONE DENSITY CLINICAL HISTORY: 72 years [...] effect of treatments on patient over time. [facility]-[id number] Procedure Note Hm Interface, Radiology Results Incoming - 11/08/2017 10:28 AM LAMP SHADES SUPERVISOR EXAMINATION: BONE DENSITY CLINICAL HISTORY: 72 years [...] effect of treatments on patient over time. [id number] US Abdomen Complete (11/08/2017 9:00 AM) Specimen Performing Laboratory [address] [address] Narrative EXAM: US ABDOMEN COMPLETE CLINICAL DATA:Z94.1 [...] The spleen is homogeneous and not enlarged eoqxabyjs76.2 x 3.9 x 3.8 cm. RIGHT KIDNEY: [...] common iliac artery measuring approximately 3 cm. [facility] [id number] Procedure Note Interface, Radiology Results Incoming - 11/08/2017 11:48 AM LAMP SHADES SUPERVISOR EXAM: US ABDOMEN COMPLETE CLINICAL DATA: Z94.1 [...] common iliac artery measuring approximately 3 cm. [facility] [id number] Urinalysis screen and microscopy, with reflex to [...] UA 10 /LPF Specimen Performing Laboratory Urine [facility] DEPARTMENT OF PATHOLOGY AND GENOMIC MEDICINE [address] [facility] [place] [address] Microalbumin, urine, random (11/08/2017 7:07 AM) Component Value Ref Range Total volume, urine No volume mL Urine creatinine concentration 96 mg/dL Urine microalbumin concentration 26.1 mg/dL Urine microalbumin/creatinine ratio 272 (H) 0 - 30 mg/g Specimen Performing Laboratory Urine [facility] DEPARTMENT OF PATHOLOGY AND GENOMIC MEDICINE [address] [place] [address] Donor specific antibody (11/08/2017 7:07 AM) Component Value Ref Range Donor specific antibody See link below for PDF Lab Report Specimen Performing Laboratory [facility] DEPARTMENT OF PATHOLOGY AND GENOMIC MEDICINE [address] [place] [address] Hepatitis acute panel (11/08/2017 7:07 AM) Component Value Ref Range Hepatitis A IgM Non-reactive Non-reactive Hepatitis B core IgM Non-reactive Non-reactive Hepatitis B surface Ag Non-reactive Non-reactive Hepatitis C Ab Non-reactive Non-reactive Specimen Performing Laboratory Blood [facility] OF PATHOLOGY AND [address] [address] Vitamin D 25 hydroxy level (11/08/2017 7:07 [...] for alternative methods. Specimen Performing Laboratory Blood [facility] DEPARTMENT OF PATHOLOGY AND GENOMIC MEDICINE [address] [place] [address] HIV 1, 2 antibody (11/08/2017 7:07 AM) Component Value Ref Range HIV 1, 2 antibody Non-reactive Non-reactive Comment: Starting from December 24 2015, 4th generation HIV screening and confirmation assays are in use at [facility], consistent with the CDC-recommended algorithm. [...] on the testing algorithm, please refer to: http://stacks.cdc.gov/view/cdc/72360. Specimen Performing Laboratory Blood [facility] DEPARTMENT OF PATHOLOGY AND [address] [address] Urine culture (11/08/2017 7:07 AM) Component Value Ref Range Urine culture SEE COMMENTComment: Bacteriuria screen negative. Specimen Performing Laboratory [facility] DEPARTMENT OF PATHOLOGY AND [facility] MEDICINE [address] [place] [address] Uric acid level (11/08/2017 7:07 AM) Component Value Ref Range Uric acid 5.1 3.4 - 7.0 mg/dL Specimen Performing Laboratory Plasma specimen [facility] [address] [address] T3, free (11/08/2017 7:07 AM) Component Value Ref Range T3, free 3.3 2.4 - 4.2 pg/mL Comment: REFERENCE INTERVAL: Triiodothyronine, Free (Free T3) Access complete set of age- and/or gender-specific reference intervals for this test in the [facility] Test Directory ([email or web address]). Performed by [facility], [address] [place] [address] [email or web address], Tommy Mckenzie MD - Lab. Director Specimen Performing Laboratory [facility] [address] [place] [address] T3 (11/08/2017 7:07 AM) Component Value Ref Range T3 128 80 - 200 ng/dL Specimen Performing Laboratory Plasma specimen [facility] DEPARTMENT OF PATHOLOGY AND [facility] [address] [place] [address] Thyroid stimulating hormone (11/08/2017 7:07 AM) Component Value Ref Range TSH 3.37 0.27 - 4.20 uIU/mL Specimen Performing Laboratory Plasma specimen [facility] DEPARTMENT PATHOLOGY AND [address] [address] T4 (11/08/2017 7:07 AM) Component Value Ref Range T4 6.4 4.5 - 11.7 ug/dL Specimen Performing Laboratory Plasma specimen [facility] DEPARTMENT OF PATHOLOGY AND [facility] [address] [place] [address] Testosterone (11/08/2017 7:07 AM) Component Value Ref Range Testosterone 195 193 - 740 ng/dL Specimen Performing Laboratory Plasma specimen [facility] DEPARTMENT PATHOLOGY AND [facility] [address] [place] [address] Prostate specific antigen (11/08/2017 7:07 AM) Component Value Ref Range PSA 1.2 0.0 - 4.0 ng/mL Comment: The KEESHA 8000 PSA immunoassay was used. Results obtained with different assay methods or kits should not be used interchangeably and may be different. Specimen Performing Laboratory Plasma specimen [facility] DEPARTMENT OF PATHOLOGY AND [facility] [address] [place] [address] Parathyroid hormone (11/08/2017 7:07 AM) Component Value Ref Range PTH 99 (H) 15 - 65 pg/mL Specimen Performing Laboratory Blood [facility] [address] [address] Ionized calcium (11/08/2017 7:07 AM) Component Value Ref Range pH 7.38 Ionized calcium 1.24 1.11 - 1.32 mmol/L Specimen Performing Laboratory Plasma specimen [facility] [address] [address] Hepatic function panel (11/08/2017 7:07 AM)Only the [...] 50 U/L Specimen Performing Laboratory Plasma specimen [facility] DEPARTMENT OF PATHOLOGY AND [facility] [address] [place] [address] Lipid panel (11/08/2017 7:07 AM) Component Value Ref Range Cholesterol 180 <200 mg/dL Triglycerides 208 (H) <150 mg/dL HDL cholesterol 47 >40 mg/dL LDL cholesterol 103 (H)Comment: Result obtained by direct LDL <100 mg/dL measurement Lipid panel interpretation SeeBelow Comment: Total Cholesterol (mg/dL) <200 Desirable 421-460Scnihvfwqa-ekdh >=240High Triglycerides (mg/dL) <150 Normal 478-426Bxjrahjprp-sfgm 200-499High >=500Very high HDL Cholesterol (mg/dL) <40Low (male) <40Low (female) LDL Cholesterol (mg/dL) <100 Optimal 100-129Near or above optimal [id number]-leho 160-189High >=190Very high Risk Catergories that modify [...] (>=200 mg/dL) Specimen Performing Laboratory Plasma specimen [facility] DEPARTMENT OF PATHOLOGY AND GENOMIC MEDICINE [address] [place] [address] Surgical pathology request (08/23/2017 10:50 AM) Component Value Ref Range Surgical pathology report See link below for PDF Lab Report Result status This is Final Report to [id number] Specimen Performing Laboratory [facility] DEPARTMENT OF PATHOLOGY AND GENOMIC MEDICINE [address] [place] [address] ECG ED Preliminary Interpretation - NOT AN ORDER (08/19/2017 1:53 PM) Narrative MOSHE Finley 08/18/20173:14 PM ECG ED Preliminary Interpretation - Not an Order Performed by: JULIET GARCIAS Authorized by: TIMO AYALAH ECG reviewed by ED Physician in the absence of a supervisor packing: yes Previous ECG: Previous ECG:Compared to current Similarity:No change Interpretation: Interpretation: normal Rate: ECG rate:73 ECG rate assessment: normal Rhythm: Rhythm: sinus rhythm Ectopy: Ectopy: none QRS: QRS axis:Normal QRS intervals:Normal Conduction: Conduction: normal ST segments: ST segments:Normal T waves: T waves: normal Lipase level (08/05/2017 2:00 PM) Component Value Ref Range Lipase 24 13 - 60 U/L Specimen Performing Laboratory Plasma specimen [facility] DEPARTMENT OF PATHOLOGY AND GENOMIC MEDICINE [address] [place] [address] Amylase level (08/05/2017 2:00 PM) Component Value Ref Range Amylase 23 13 - 53 U/L Specimen Performing Laboratory Plasma specimen [facility] DEPARTMENT OF PATHOLOGY AND GENOMIC MEDICINE [address] [place] [address] Abdomen Wo Contrast (07/30/2017 4:45 PM) Specimen Performing Laboratory [facility] [address] [place] [address] Narrative EXAMINATION:CT ABDOMEN WO CONTRAST CLINICAL HISTORY:R10.10 [...] without evidence of herniated fat or bowel. [facility]-[id number] Procedure Note Interface, Radiology Results Incoming - [...] without evidence of herniated fat or bowel. [facility]-[id number] POC glycosylated hemoglobin (Hb A1C) (07/20/2017 9:21 AM) Component Value Ref Range POC Hemoglobin A1C 6.0 % Specimen Performing Laboratory Blood Pv duplex venous lower extremity (03/02/2017 9:12 AM) Specimen Performing Laboratory [facility] [address] [place] [address] Narrative Vascular Ultrasound Laboratory Lower Extremity Venous Report [address]Name:Nathan JENKINS.ID:[id number] .Date: 03/02/2017Refer.MD:YASH MILLER MD Exam Time: 8:07:00 AMStudy Type:LE Venous Height:69inWeight: 194lb BSA: 2.04 m2 DOBAge:1945,71Y Sex: MALESonogrphr: Juan Garner RN, RVS Pat. Stat.:OutpatientRoom:[place] TapeVol: [place], [facility] - 4: [id number] Echo Event ID:[id number] Order ID:[id number] Reason for Study:Left popliteal fossa pain for [...] Vascular Ultrasound Laboratory Lower Extremity Venous Report [address] [address] Pat.Name: TAQUERIA JENKINS Pat.ID: [id number] St.Date: 03/02/2017 Refer.MD: YASH MILLER MD Exam Time: 8:07:00 AM Study Type:LE Venous Height: 69in Weight: 194lb BSA: 2.04 m2 Age: 2 1945,71Y Sex: MALE Sonogrphr: Juan Garner RN, RVS Pat. Stat.:Outpatient Room: [facility] Vol: PM, CPT - 4: 66185 Echo Event ID:[id number] Order ID: [id number] Reason for Study:Left popliteal fossa pain for [...] 03/02/2017 11:38 AM Terry Manjarrez MD, RPVI after 02/23/2017 Insurance Payer Benefit Plan / Group Subscriber ID Type Phone Address MEDICARE MEDICARE PART A AND B xxxxxxxxxx Medicare [place], [place] [employer] x[address]x [address] [phone] [place], [place] [id number]
[2018-02-24] MEDS ORDERED: NA CHLORIDE 0.9% 1,000 ML ONE (12:38)
[2018-02-24] MEDS ORDERED: ACETAMINOPHEN 325 MG TABLET ONE (12:38)
--- NOTE | 2018-02-24 12:58 | RAD REPORT ---
EXAM DESCRIPTION: Bam Single View02/24/2018 12:44 pm CLINICAL HISTORY: fever COMPARISON: December 2017 FINDINGS: The lungs appear clear of acute infiltrate. The heart is normal size. Postsurgical changes involve the chest IMPRESSION: No acute abnormalities displayed
[2018-02-24 13:06] LABS: Absolute Lymphocytes (CBC) 0.7 K/uL (0.7-4.9); Absolute Monocytes 0.8 K/uL (0.1-1.3); Absolute Neutrophil 6.9 K/uL (1.8-8.0); Basophils % 0.4 % (0-1.3); Eosinophils % 0.1 % (0-4.4); Lymphocytes % 8.1 % (15.3-44.8); MCH 31.3 pg (27.0-35.0); MCV 96.9 fL (80-100); MPV 8.8 fL (7.6-11.3); Monocytes % 9.4 % (3.3-12.3); RBC Red Blood Cell Count 4.64 M/uL (4.33-5.43)
[2018-02-24 13:30] LABS: CKMB Creatine Kinase MB 0.9 ng/ml (0.3-4.0); Potassium 3.8 mEq/L (3.6-5.0)
[2018-02-24 13:36] LABS: Bilirubin Direct 0.2 mg/dL (0-0.2); Bilirubin Total 1.2 mg/dL (0.3-1.2); Magnesium 1.6 mg/dL (1.8-2.5); Protein, Total 7.6 g/dL (6.0-8.3); Protime INR 1.18
[2018-02-24] MEDS ORDERED: CEFTRIAXONE/SWI 1gm 1 GM/10 ML SYR ONE (14:45)
[2018-02-24] MEDS ORDERED: MAGNESIUM OXIDE 400 MG TAB ONE (14:45)
[2018-02-24 14:49] LABS: Urine Blood TRACE (NEG); Urine Glucose NEGATIVE (NEG); Urine Protein 2+ (NEG); Urine pH 6.5 (5.0-7.0)
--- NOTE | 2018-02-24 15:10 | ER ---
Nurse's Notes [facility] Name: Octavio Bueno Age: 72 yrs Sex: Male : 1945 Arrival Date: 02/24/2018 Time: 12:11 Bed 7 Private MD: Diagnosis: Chronic kidney disease, stage 3 (moderate);Hypomagnesemia;Dehydration;Urinary tract infection, site not specified Presentation: 02/24 12:22 Presenting complaint: Patient states: Diarrhea and fever for 3 days. Patient is a heart aj transplant patient. Transition of care: patient was not received from another setting of care. Onset of symptoms was February 21, 2018. Care prior to arrival: None. 12:22 Method Of Arrival: Ambulatory aj 12:22 Acuity: YAHIR 2 aj 13:00 Risk Assessment: Do you want to hurt yourself or someone else? Patient reports no sg desire to harm self or others. 15:00 Initial Sepsis Screen: Does the patient meet any 2 criteria? No. Patient's initial sg sepsis screen is negative. Does the patient have a suspected source of infection? No. Patient's initial sepsis screen is negative. Triage Assessment: 12:24 General: Appears in no apparent distress. uncomfortable, ill, Behavior is calm, aj cooperative, appropriate for age. Pain: Denies pain. Neuro: Level of Consciousness is awake, alert, obeys commands, Oriented to person, place, time, situation, Appropriate for age. Respiratory: Airway is patent Respiratory effort is even, unlabored, Respiratory pattern is regular, symmetrical. GI: Reports diarrhea. Derm: Skin is intact, is healthy with good turgor, Skin is pink, warm \\T\\ dry. normal. Historical: - Allergies: 12:24 NKA; aj - Home Meds: 12:24 allopurinol 100 mg Oral tab 1 tab 2 times per day [Active]; alprazolam 0.5 mg Oral tab aj 1 tab daily [Active]; amlodipine 5 mg tab 1 tab once daily [Active]; aspirin 81 mg Oral TbEC 1 tab once daily [Active]; CellCept 500 mg Oral tab 1 tabs 2 times per day [Active]; ferrous sulfate 325 mg (65 mg iron) Oral tab daily [Active]; folic acid 1 mg Oral tab 1 tab once daily [Active]; gabapentin 300 mg Oral cap 1 cap 3 times per day [Active]; isosorbide mononitrate 30 mg Oral Tb24 1 tab once daily [Active]; labetalol 300 mg Oral tab 1 tab 2 times per day [Active]; magnesium oxide 400 mg Oral tab twice a day [Active]; metolazone 2.5 mg Oral tab 1 tab once daily [Active]; Nexium 40 mg Oral cpDR 1 cap once daily [Active]; Novolin 70/30 [place] Sub-Q 70-30 unit/mL twice a day [Active]; potassium chloride 10 mEq Oral cpER 1 cap once daily [Active]; pravastatin 40 mg Oral tab 1 tab once daily [Active]; prednisone 5 mg Oral tab once daily [Active]; Prograf 0.5 mg Oral cap every 12 hours [Active]; Singulair 10 mg Oral tab 1 tab once daily [Active]; tamsulosin 0.4 mg Oral cp24 1 cap once daily [Active]; torsemide 20 mg Oral tab 2 tabs once daily [Active]; - PMHx: 12:24 Diabetes - IDDM; Gout; Myocardial infarction; aj - PSHx: 12:24 heart transplant 2006; aj - Immunization history:: Adult Immunizations up to date. - Social history:: Smoking status: Patient/guardian denies using tobacco. - Family history:: not pertinent. - Ebola Screening: : Patient negative for fever greater than or equal to 101.5 degrees Fahrenheit, and additional compatible Ebola Virus Disease symptoms Patient denies exposure to infectious person Patient denies travel to an Ebola-affected area in the 21 days before illness onset No symptoms or risks identified at this time. - Hospitalizations: : No recent hospitalization is reported. - History obtained from: . Screenin:39 Abuse screen: Denies threats or abuse. Denies injuries from another. Nutritional sg screening: No deficits noted. Tuberculosis screening: No symptoms or risk factors identified. Never had TB. Fall Risk None identified. Assessment: 12:39 Reassessment: xray at bedside. sg 13:01 Reassessment: EKG at bedside. sg 13:01 General: Appears in no apparent distress. comfortable, well groomed, well developed, sg well nourished, Behavior is calm, cooperative, appropriate for age. General: Reports fever for 12-24 hours. Pain: Denies pain. Neuro: No deficits noted. Cardiovascular: Heart tones S1 S2 present Capillary refill is brisk in bilateral fingers Patient's skin is warm and dry. Chest pain is denied. Respiratory: Airway is patent Respiratory effort is even, unlabored, Respiratory pattern is regular, symmetrical. GI: Abdomen is round non-distended, Bowel sounds present X 4 quads. Reports diarrhea. : No signs and/or symptoms were reported regarding the genitourinary system. EENT: No signs and/or symptoms were reported regarding the EENT system. Derm: Skin is pink, warm \\T\\ dry. Musculoskeletal: No signs and/or symptoms reported regarding the musculoskeletal system. 14:14 Reassessment: Patient appears in no apparent distress at this time. Patient and/or sg family updated on plan of care and expected duration. Pain level reassessed. Patient is alert, oriented x 3, equal unlabored respirations, skin warm/dry/pink. pt family reports " hes been napping for the last hour or so" Patient states feeling better. Vital Signs: 12:24 BP 140 / 83; Pulse 103; Resp 25; Temp 99.8; Pulse Ox 94% on R/A; Weight 86.18 kg; aj Height 5 ft. 9 in. (175.26 cm); 14:13 BP 142 / 70; Pulse 95; Resp 18; Temp 100.3; Pulse Ox 93% on R/A; Pain 0/10; sg 12:24 Body Mass Index 28.06 (86.18 kg, 175.26 cm) aj ED Course: 12:11 Patient arrived in ED. rg4 12:22 Triage completed. aj 12:24 Arm band placed on left wrist. Patient placed in an exam room. aj 12:25 Allison Mckeon FNP is PHCP. kav 12:25 Brad Sandoval MD is Attending Physician. kav 12:37 No provider procedures requiring assistance completed. sg 12:38 Edin Kilpatrick, RN is Primary Nurse. sg 12:41 X-ray completed. Portable x-ray completed in exam room. Patient tolerated procedure sw well. 12:42 XRAY Chest (1 view) In Process Unspecified. EDMS 13:00 Patient has correct armband on for positive identification. Bed in low position. Call sg light in reach. Side rails up X2. Pulse ox on. NIBP on. Warm blanket given. Head of bed elevated. 13:05 EKG done, by materials engineering technician. reviewed by Allison PHELPS. at1 15:00 IV discontinued, intact, bleeding controlled, No redness/swelling at site. Pressure sg dressing applied. Administered Medications: 12:38 Drug: Tylenol 650 mg Route: PO; sg 13:30 Follow up: Response: No adverse reaction sg 12:55 Drug: NS 0.9% 1000 ml Route: IV; Rate: 75 ml/hr; Site: right antecubital; sg 14:49 Drug: Magnesium 400 mg Route: PO; sg 15:10 Follow up: Response: No adverse reaction sg 14:49 Drug: Rocephin - (cefTRIAXone) 1 grams Route: IVPB; Infused Over: 30 mins; Site: right sg antecubital; Outcome: 15:09 Discharge ordered by . krystian 15:11 Discharged to home ambulatory, with family. sg 15:11 Condition: good 15:11 Discharge instructions given to patient, Instructed on discharge instructions, follow up and referral plans. medication usage, safety practices, Demonstrated understanding of instructions, follow-up care, medications, Prescriptions given X 2. 15:14 Patient left the ED. sg Addendum: 03/01/2018 08:52 Addendum: Culture Results: Positive blood culture. No further action required. Bacteria i w sensitive to prescribed antibiotic. Signatures: Dispatcher [employer] EDMS Edin Kilpatrick, Mariluz Waller RN, RN Allison Vargas FNP FNP kav Williams, Irene, RN RN iw gonzales, Amanda, counter intelligence technician EKG Tat1 Jonelle Diop Rubi rg4
--- NOTE | 2018-02-24 15:10 | EDPHYS ---
Physician Documentation [facility] Name: Octavio Bueno Age: 72 yrs Sex: Male : 1945 Arrival Date: 02/24/2018 Time: 12:11 Bed 7 Private MD: ED Physician Brad Sandoval HPI: 02/24 14:34 This 72 yrs old Male presents to ER via Ambulatory with complaints of Fever, kav Diarrhea. 14:34 The patient reports fever, with an emergency department temperature of 100.3 degrees kav Fahrenheit. Onset: The symptoms/episode began/occurred acutely, 2 day(s) ago. Modifying factors: there are no obvious modifying factors. Associated signs and symptoms: Pertinent positives: diarrhea, myalgias, Pertinent negatives: chest pain, headache, sinus congestion, sinus drainage, sore throat. Severity of symptoms: At their worst the symptoms were moderate just prior to arrival. The patient has not experienced similar symptoms in the past. 14:35 baseline creatinine is 2.0 on 01/17/18. creatinine today is 1.91. kav Historical: - Allergies: 12:24 NKA; aj - Home Meds: 12:24 allopurinol 100 mg Oral tab 1 tab 2 times per day [Active]; alprazolam 0.5 mg Oral tab aj 1 tab daily [Active]; amlodipine 5 mg tab 1 tab once daily [Active]; aspirin 81 mg Oral TbEC 1 tab once daily [Active]; CellCept 500 mg Oral tab 1 tabs 2 times per day [Active]; ferrous sulfate 325 mg (65 mg iron) Oral tab daily [Active]; folic acid 1 mg Oral tab 1 tab once daily [Active]; gabapentin 300 mg Oral cap 1 cap 3 times per day [Active]; isosorbide mononitrate 30 mg Oral Tb24 1 tab once daily [Active]; labetalol 300 mg Oral tab 1 tab 2 times per day [Active]; magnesium oxide 400 mg Oral tab twice a day [Active]; metolazone 2.5 mg Oral tab 1 tab once daily [Active]; Nexium 40 mg Oral cpDR 1 cap once daily [Active]; Novolin 70/30 [place] Sub-Q 70-30 unit/mL twice a day [Active]; potassium chloride 10 mEq Oral cpER 1 cap once daily [Active]; pravastatin 40 mg Oral tab 1 tab once daily [Active]; prednisone 5 mg Oral tab once daily [Active]; Prograf 0.5 mg Oral cap every 12 hours [Active]; Singulair 10 mg Oral tab 1 tab once daily [Active]; tamsulosin 0.4 mg Oral cp24 1 cap once daily [Active]; torsemide 20 mg Oral tab 2 tabs once daily [Active]; - PMHx: 12:24 Diabetes - IDDM; Gout; Myocardial infarction; aj - PSHx: 12:24 heart transplant 2006; aj - Immunization history:: Adult Immunizations up to date. - Social history:: Smoking status: Patient/guardian denies using tobacco. - Family history:: not pertinent. - Ebola Screening: : Patient negative for fever greater than or equal to 101.5 degrees Fahrenheit, and additional compatible Ebola Virus Disease symptoms Patient denies exposure to infectious person Patient denies travel to an Ebola-affected area in the 21 days before illness onset No symptoms or risks identified at this time. - Hospitalizations: : No recent hospitalization is reported. - History obtained from: . ROS: 14:35 Constitutional: Negative for fever, chills, and weight loss, Eyes: Negative for injury, kav pain, redness, and discharge, ENT: Negative for injury, pain, and discharge, Neck: Negative for injury, pain, and swelling, Cardiovascular: Negative for chest pain, palpitations, and edema, Respiratory: Negative for shortness of breath, cough, wheezing, and pleuritic chest pain, Back: Negative for injury and pain, : Negative for injury, bleeding, discharge, and swelling, Skin: Negative for injury, rash, and discoloration, Neuro: Negative for headache, weakness, numbness, tingling, and seizure, Psych: Negative for depression, anxiety, suicide ideation, homicidal ideation, and hallucinations, Allergy/Immunology: Negative for hives, rash, and allergies, Endocrine: Negative for neck swelling, polydipsia, polyuria, polyphagia, and marked weight changes, Hematologic/Lymphatic: Negative for swollen nodes, abnormal bleeding, and unusual bruising. 14:35 Abdomen/GI: Positive for diarrhea, Negative for nausea and vomiting. 14:35 MS/extremity: Exam: 14:35 Head/Face: Normocephalic, atraumatic. Eyes: Pupils equal round and reactive to light, kav extra-ocular motions intact. Lids and lashes normal. Conjunctiva and sclera are non-icteric and not injected. Cornea within normal limits. Periorbital areas with no swelling, redness, or edema. ENT: Nares patent. No nasal discharge, no septal abnormalities noted. Tympanic membranes are normal and external auditory canals are clear. Oropharynx with no redness, swelling, or masses, exudates, or evidence of obstruction, uvula midline. Mucous membranes moist. Neck: Trachea midline, no thyromegaly or masses palpated, and no cervical lymphadenopathy. Supple, full range of motion without nuchal rigidity, or vertebral point tenderness. No Meningismus. Chest/axilla: Normal chest wall appearance and motion. Nontender with no deformity. No lesions are appreciated. Cardiovascular: Regular rate and rhythm with a normal S1 and S2. No gallops, murmurs, or rubs. Normal PMI, no JVD. No pulse deficits. Respiratory: Lungs have equal breath sounds bilaterally, clear to auscultation and percussion. No rales, rhonchi or wheezes noted. No increased work of breathing, no retractions or nasal flaring. Back: No spinal tenderness. No costovertebral tenderness. Full range of motion. Neuro: Awake and alert, GCS 15, oriented to person, place, time, and situation. Cranial nerves II-XII grossly intact. Motor strength 5/5 in all extremities. Sensory grossly intact. Cerebellar exam normal. Normal gait. Psych: Awake, alert, with orientation to person, place and time. Behavior, mood, and affect are within normal limits. 14:35 Constitutional: The patient appears in no acute distress, alert, awake, comfortable, non-diaphoretic, non-toxic, well developed, well groomed, well nourished, febrile. 14:35 Abdomen/GI: Bowel sounds: normal, in all quadrants, active, all quadrants, Palpation: abdomen is soft and non-tender. 14:35 Skin: Turgor: is poor. Vital Signs: 12:24 BP 140 / 83; Pulse 103; Resp 25; Temp 99.8; Pulse Ox 94% on R/A; Weight 86.18 kg; aj Height 5 ft. 9 in. (175.26 cm); 14:13 BP 142 / 70; Pulse 95; Resp 18; Temp 100.3; Pulse Ox 93% on R/A; Pain 0/10; sg 12:24 Body Mass Index 28.06 (86.18 kg, 175.26 cm) aj MDM: 12:25 Medical screening is not applicable. [facility] 14:35 Data reviewed: vital signs, nurses notes. 02/24 12:28 Order name: Basic Metabolic Panel; Complete Time: 14:14 02/24 14:56 Interpretation: CL 93; GLUC 166; BUN 27; CRE 1.91; GFR 35; CO2 34. 02/24 12:28 Order name: BNP; Complete Time: 14:14 02/24 14:17 Interpretation: BNP 169. 02/24 12:28 Order name: CBC with Diff; Complete Time: 13:11 02/24 13:11 Interpretation: Normal except: PLT 145; WILIAN% 82.0; LYM% 8.1. 02/24 12:28 Order name: Ckmb; Complete Time: 14:14 02/24 14:19 Interpretation: Within normal limits. 02/24 12:28 Order name: CPK; Complete Time: 14:14 02/24 14:20 Interpretation: Within normal limits. 02/24 12:28 Order name: LFT's; Complete Time: 14:14 02/24 14:16 Interpretation: Normal except: GLOB 3.6. 02/24 12:28 Order name: Magnesium; Complete Time: 14:14 02/24 14:16 Interpretation: Abnormal: MG 1.6. 02/24 12:28 Order name: PT-INR; Complete Time: 14:14 02/24 14:18 Interpretation: PT 14.0. 02/24 12:28 Order name: Ptt, Activated; Complete Time: 14:14 02/24 12:28 Order name: Troponin (emerg Dept Use Only); Complete Time: 14:14 02/24 12:28 Order name: Amylase, Serum; Complete Time: 14:14 02/24 12:28 Order name: Creatinine for Radiology; Complete Time: 14:14 02/24 14:18 Interpretation: Normal except: CRE 1.92; GFR 34. 02/24 12:28 Order name: Lipase; Complete Time: 14:14 [facility] 02/24 12:28 Order name: Urine Microscopic Only 02/24 12:28 Order name: XRAY Chest (1 view); Complete Time: 13:11 [facility] 02/24 13:11 Interpretation: No acute disease. 02/24 12:28 Order name: EKG; Complete Time: 12:29 [facility] 02/24 12:28 Order name: Cardiac monitoring; Complete Time: 12:38 [facility] 02/24 12:28 Order name: EKG - Nurse/Tech; Complete Time: 13:01 [facility] 02/24 12:28 Order name: IV Saline Lock; Complete Time: 12:38 [facility] 02/24 12:28 Order name: Labs collected and sent; Complete Time: 12:38 [facility] 02/24 12:28 Order name: O2 Per Protocol; Complete Time: 12:38 [facility] 02/24 12:28 Order name: O2 Sat Monitoring; Complete Time: 12:38 [facility] 02/24 12:28 Order name: Urine Dipstick-Ancillary (obtain specimen); Complete Time: 15:11 [facility] 02/24 12:57 Order name: Lactate; Complete Time: 14:14 02/24 15:03 Interpretation: Within normal limits. [facility] 02/24 12:57 Order name: Blood Culture Adult (2) 02/24 14:42 Order name: Urine Dipstick--Ancillary (enter results); Complete Time: 14:55 02/24 14:55 Interpretation: UBLD TRACE; UPROT 2+; UESTR TRACE. [facility] Administered Medications: 12:38 Drug: Tylenol 650 mg Route: PO; sg 13:30 Follow up: Response: No adverse reaction sg 12:55 Drug: NS 0.9% 1000 ml Route: IV; Rate: 75 ml/hr; Site: right antecubital; sg 14:49 Drug: Magnesium 400 mg Route: PO; sg 15:10 Follow up: Response: No adverse reaction sg 14:49 Drug: Rocephin - (cefTRIAXone) 1 grams Route: IVPB; Infused Over: 30 mins; Site: right sg antecubital; Disposition: 22:10 Co-signature as Attending Physician, Brad Sandoval MD I agree with the assessment and kdr plan of care. Disposition: 02/24/18 15:09 Discharged to Home. Impression: Chronic kidney disease, stage 3 (moderate), Hypomagnesemia, Dehydration, Urinary tract infection, site not specified. - Condition is Stable. - Discharge Instructions: Hypomagnesemia, Gastritis, Adult, [id number], Urinary Tract Infection, [id number], Dehydration, Adult, [id number], Chronic Kidney Disease, Rehydration, Adult. - Prescriptions for Cipro 500 mg Oral Tablet - take 1 tablet by ORAL route every 12 hours for 7 days; 14 tablet. - Medication Reconciliation Form, Thank You Letter, Antibiotic Education, Prescription Opioid Use form. - Follow up: Private Physician; When: 2 - 3 days; Reason: Recheck today's complaints, Continuance of care, Re-evaluation by your physician. - Problem is new. - Symptoms have improved. - Notes: follow-up with nephrology Signatures: Dispatcher [employer] EDMS Edin Kilpatrick RN RN sg Myers, Amanda, RN RN aj Rittger, Kevin, MD MD kdr Vern, Katherine, MATTIE [employer] ENGINEER kav Corrections: (The following items were deleted from the chart) 14:15 14:15 Normal except: CL 93; GLUC 166; BUN 27; CRE 1.91. kav kav 14:16 14:15 BNP 169. kav kav 14:17 14:15 Abnormal: BNP 169. kav kav 14:56 14:15 Normal except: CL 93; GLUC 166; BUN 27; CRE 1.91; GFR 35. kav kav 15:14 15:09 02/24/2018 15:09 Discharged to Home. Impression: Chronic kidney disease, stage 3 sg (moderate); Hypomagnesemia; Dehydration; Urinary tract infection, site not specified. Condition is Stable. Discharge Instructions: Hypomagnesemia, Gastritis, Adult, Kzay-[id number], Urinary Tract Infection, Ymgg-[id number], Dehydration, Adult, [id number]-[id number], Chronic Kidney Disease, Rehydration, Adult. Prescriptions for Cipro 500 mg Oral Tablet - take 1 tablet by ORAL route every 12 hours for 7 days; 14 tablet. and Forms are Medication Reconciliation Form, Thank You Letter, Antibiotic Education, Prescription Opioid Use. Follow up: Private Physician; When: 2 - 3 days; Reason: Recheck today's complaints, Continuance of care, Re-evaluation by your physician. Problem is new. Symptoms have improved. krystian
[2018-02-24 15:19] VITALS: BP 142/70; TEMP 100.3; O2SAT 93
[2018-02-24 15:35] LABS: Urine Bacteria <20 /HPF (NONE SEEN); Urine Culture Reflex Order NOT NEEDED; Urine RBC <5 /HPF (NONE SEEN)
--- NOTE | 2018-02-25 06:53 | EKG ---
Test Date: 2018-02-24 Test Time: 13:02:07 [place]: OMAR MEASUREMENT RESULTS: Intervals: Rate: 99 IA: 140 QRSD: 78 QT: 332 QTc: 426 [place]: P: 73 IA: 140 QRS: 72 T: 75 INTERPRETIVE STATEMENTS: Normal sinus rhythm Normal ECG Compared to ECG 01/17/2018 15:45:20 Sinus tachycardia no longer present Electronically Signed On 02-25-18 06:52:44 CDT by Jeffery Longoria
== END 2018-02-24 15:14 | disposition home or self-care (01) ==
LOC: ER 12:08
DX: N39.0 Urinary tract infection, site not specified (principal); E83.42 Hypomagnesemia; E86.0 Dehydration; K29.70 Gastritis, unspecified, without bleeding; N18.3 Chronic kidney disease, stage 3 (moderate); E11.22 Type 2 diabetes mellitus with diabetic chronic kidney disease; Z79.4 Long term (current) use of insulin; I25.2 Old myocardial infarction; Z94.1 Heart transplant status
CPT/HCPCS: 36415; 71045; 80048; 80076; 82150; 82550; 82553; 82962; 83605; 83690; 83735; 83880; 84484; 85025; 85610; 85730; 87040; 87077; 87186; 87205; 93005; 96374; 99284; J0696; J7030; 80053; 81003; 81015; 96365; 96375; 99285; J1580; J3370

== ENCOUNTER 2018-02-24 20:06 | Emergency (ER) | payer OTHER ==
--- OUTSIDE RECORDS SUMMARY | 2018-02-24 20:09 | XMS REPORT | Clinical Summary ---
:1945 Author Organization [facility] Address [address] [place] [address] Care Team Providers Name Role Phone Britney [...] diabetes mellitus type 2 without complications, unspecified alf insulin use status potassium chloride Take 2 [...] 3 11/10/19 Discontinued diagnostic strips 7 18 ([email or web address] VERIO) strip test stripsIndications: Uncontrolled type 2 [...] Date Type I Type II 11/08/2017 Cw5 2694 DP11 4641 10/12/2016 Cw5 3100 DP11 3976 11/15/2015 Cw5 0478 DP11 7503 Diabetes mellitus 02/26/2016 Overview: Diabetic/hyperlipidemia/osteopenia Followed by [...] immunosuppressant medication; Heart replaced by transplant; 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; 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; Therapeutic drug monitoring 02/01/2018 Hospital Encounter Transplant Minal, Heart replaced by transplant; MD Yash 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; 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; Therapeutic drug monitoring; Metabolic syndrome; CRF (chronic renal failure), stage 3 (moderate); Cytomegalovirus infection, unspecified cytomegaloviral infection type; Essential hypertension; Hyperlipidemia associated with type 2 diabetes mellitus 01/28/2018 Hospital Encounter Transplant LucianDonald jerry Heart replaced by transplant; MD Chris 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; 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; Therapeutic drug monitoring; Metabolic syndrome; CRF (chronic renal failure), stage 3 (moderate); Cytomegalovirus infection, unspecified cytomegaloviral infection type; Essential hypertension; Hyperlipidemia associated with type 2 diabetes mellitus 01/24/2018 Orders Only Transplant Chase Roman, Heart replaced by transplant (Primary Dx); RN Infection; correction current use 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; Therapeutic drug [...] current use of insulin 12/17/2017 Refill Cardiology Doanld Epstein Refill MD Chris 12/06/2017 Documentation Transplant Chase Roman RN 11/28/2017 Refill Cardiology Donald Epstein Refill MD Chris 11/23/2017 Documentation Transplant Karl Ester 11/18/2017 Abstract Transplant Chase Roman RN 11/16/2017 Refill Transplant Gallo, Med Refill [place], [place] 11/16/2017 Orders Only Transplant Chase Roman RN 11/12/2017 Refill Cardiology Donald Epstien Med Refill MD Chris 11/09/2017 Hospital Encounter [...] Only Transplant Chase Roman, 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 ECHOCARDIOGRAM 2D Routine 11/08/2017 3:44 Heart replaced by Results for this COMPLETE W MMODE PM ROAD DESIGN DRAFTSPERSON transplant procedure are in SPECTRAL COLOR DOPPLER the results (43222) section. CV STRESS TEST NUCLEAR Routine 11/08/2017 12:19 Heart replaced by Results for this CARDIO PM ROAD DESIGN DRAFTSPERSON transplant procedure are in Complication of the results transplanted organ section. Cardiac allograft vasculopathy EGD with Bx 08/23/2017 8:[address] DESIGN DRAFTSPERSON after 02/23/2017 Results Cytomegalovirus by PCR (01/28/2018 10:50 AM)Only the most recent of3 resultswithin the time period is included. Component Value Ref Range Cytomegalovirus by PCR Not-Detected Not-Detected IU/mL Cytomegalovirus by PCR See link below for PDF Lab ReportComment: Specimen Performing Laboratory [facility] DEPARTMENT OF PATHOLOGY AND [facility] [address] [place] [address] Estimated GFR (01/28/2018 10:50 AM)Only the most [...] Specimen Performing Laboratory Plasma specimen [facility] DEPARTMENT OF PATHOLOGY AND [facility] [address] [place] [address] FK506 level (01/28/2018 10:50 AM)Only the most recent of8 resultswithin the time period is included. Component Value Ref Range FK506 level 5.5 ng/mL Comment: Therapeutic range 5-20 ng/mL for 12 hour trough. The range varies depending on the organ transplanted, time after transplantation and co-administered immunosuppressant therapies. Please use clinical judgment to interpret test result. Test performed using Carter Treater Helper chemiluminescent microparticle immunoassay for Tacrolimus on the PRODUCT BUILDER i System. Specimen Performing Laboratory Blood [facility] DEPARTMENT OF PATHOLOGY AND [facility] [address] [place] [address] Troponin (01/28/2018 10:50 AM)Only the most recent [...] Specimen Performing Laboratory Plasma specimen [facility] DEPARTMENT OF PATHOLOGY AND GENOMIC MEDICINE [address] [place] [address] Urinalysis, automated with microscopy (01/28/2018 10:50 AM) [...] UA None seen Specimen Performing Laboratory Urine [facility] DEPARTMENT OF PATHOLOGY AND [address] [address] Prothrombin time with INR (01/28/2018 10:50 AM)Only [...] embolism. Specimen Performing Laboratory Blood [facility] DEPARTMENT OF PATHOLOGY AND [facility] [address] [place] [address] CBC with platelet and differential (01/28/2018 10:50 [...] metamyelocytes) Specimen Performing Laboratory Blood [facility] DEPARTMENT OF PATHOLOGY AND [facility] [address] [place] [address] B natriuretic peptide (01/28/2018 10:50 AM)Only the most recent of3 resultswithin the time period is included. Component Value Ref Range BNP 149 (H) 0 - 100 pg/mL Specimen Performing Laboratory Blood [facility] [address] [address] Magnesium level (01/28/2018 10:50 AM)Only the most recent of5 resultswithin the time period is included. Component Value Ref Range Magnesium 2.0 1.6 - 2.4 mg/dL Specimen Performing Laboratory Plasma specimen [facility] DEPARTMENT PATHOLOGY [address] [address] LDH (01/28/2018 10:50 AM)Only the most recent of3 resultswithin the time period is included. Component Value Ref Range LDH 187 87 - 225 U/L Specimen Performing Laboratory Plasma specimen [facility] [address] [address] Comprehensive metabolic panel (01/28/2018 10:50 AM)Only the [...] Protein 7.2 6.3 - 8.3 g/dL Comment: [place] 4.6-7.0 g/dL 1 week 4.4-7.6 g/dL 7 [...] Specimen Performing Laboratory Plasma specimen [facility] DEPARTMENT OF PATHOLOGY AND GENOMIC MEDICINE [address] [place] [address] POC glucose (01/22/2018 8:24 AM)Only the most recent of21 resultswithin the time period is included. Component Value Ref Range POC glucose 186 (H) 65 - 99 mg/dL Comment: [facility] Notified RN Meter ID: [id number] Polygraph Operator: Valentina Bishop Specimen Performing Laboratory [facility] DEPARTMENT OF PATHOLOGY AND [facility] [address] [place] [address] Basic metabolic panel (01/22/2018 4:00 AM)Only the [...] Specimen Performing Laboratory Plasma specimen [facility] DEPARTMENT OF PATHOLOGY AND GENOMIC MEDICINE [address] [place] [address] Gastrointestinal panel (01/20/2018 3:50 PM) Component Value [...] Nonpreserved Specimen Performing Laboratory Stool - Nonpreserved [facility] [place] [address] Phosphorus level (01/20/2018 6:00 AM)Only the most recent of3 resultswithin the time period is included. Component Value Ref Range Phosphorus 2.1 (L) 2.4 - 4.5 mg/dL Specimen Performing Laboratory Plasma specimen [facility] [place] [address] Aerobic culture (01/19/2018 5:40 PM) Component Value Ref Range Aerobic culture isolate No growth after 3 days. Comment: Specimen Information Specimen Source: Wound Specimen Site: Hand Specimen Performing Laboratory Wound - Hand [facility] [place] [address] Gram stain (01/19/2018 5:40 PM) Component Value Ref Range Gram stain isolate Few WBC's No organisms seen Comment: Specimen Information Specimen Source: Wound Specimen Site: Hand Specimen Performing Laboratory Wound - Hand [facility] [place] [address] Echocardiogram complete w contrast and 3D if needed (01/18/2018 12:36 PM) Specimen Performing [facility] [address] [place] [address] Narrative Echocardiography Report [address] [place] [address] Pat.Name:TAQUERIA JENKINS [facility].ID:[id number] St.Date: 01/18/2018 Refer.MD:GENE MUNIZ M.D. Exam Time: 12:15:00 PM Study Type:Routine Echo Height:70inWeight: 192lb BSA: 2.05 m2 DOBAge:1945,72Y Sex: MALEBP:139/68 HR:85 bpmSonogrphr: Dian Witt [facility] Pat. Stat.:Inpatient Room:D 402 Study Status:Final Echo Event ID:[id number] Order ID:[id number] Reason for Study:Post OHT SOB History / [...] RAPof 10 mmHg. MEASUREMENTS: 2D Parasternal Long [place] LVOT 2 cmLA Ds4.3 cm LVIDd4.4 cmIndex 2.1 cm/m Ao An2.1 cm LVIDs2.5 cmAo Rtd 2.8 cm Index1.4 cm/m LV%fs 43.2 % LV Lnfj226.3 g(122-174) IVSd 1.3 cmLVM Index 93.3 g/m2 [...] 01/18/2018 4:51 PM CDT Echocardiography Report [address] [place] [address] Pat.Name: TAQUERIA JENKINS Pat.ID: [id number] .Date: 01/18/2018 Refer.MD: GENE MUNIZ M.D. Exam Time: 12:15:00 PM Study Type:Routine Echo Height: 70in Weight: 192lb BSA: 2.05 m2 Age: 2 1945,72Y Sex: MALE BP: 139/68 HR: 85 bpm Sonogrphr: DMITRIY Enciso Pat. Stat.:Inpatient Room: [facility] Study Status:Final Echo Event ID:[id number] Order ID: [id number] Reason for Study:Post OHT SOB History / [...] of 10 mmHg. MEASUREMENTS: 2D Parasternal Long [place] LVOT 2 cm LA Ds 4.3 cm [...] PM) Specimen Performing Laboratory [facility] [address] Vascular Ultrasound Laboratory Upper Extremity Venous Report [address] [place] [address] Pat.Name:TAQUERIA JENKINS [facility].ID:[id number] .Date: 01/18/2018 Refer.MD:GENE MUNIZ MD Exam Time: 11:32:00 AM Study Type:UE Venous Height:69inWeight: 192lb BSA: 2.03 m2 DOBAge:1945,72Y Sex: MALESonogrphr: Vianey Morgan RVT Pat. Stat.:Inpatient Room:[address] TapeVol: , CPT - 4: [address]207 Echo Event ID:[id number] Order ID:[id number] Reason for Study:Left forearm pain and edema.History [...] Ultrasound Laboratory Upper Extremity Venous Report [address] [place] [address] Pat.Name: TAQUERIA JENKINS [facility].ID: [id number] St.Date: 01/18/2018 Refer.MD: GENE MUNIZ MD Exam Time: 11:32:00 AM Study Type:UE Venous Height: 69in Weight: 192lb BSA: 2.03 m2 Age: 2 1945,72Y Sex: MALE Sonogrphr: Vianey Morgan RVT Pat. Stat.:Inpatient Room: [address] Tape Vol: YM, CPT - 4: 44965 Echo Event ID:[id number] Order ID: [id number] Reason for Study:Left forearm pain and edema. [...] Nares Specimen Site: Right Specimen Performing Laboratory [facility] DEPARTMENT OF PATHOLOGY AND GENOMIC MEDICINE [address] [place] [address] CBC hemogram (01/18/2018 10:15 AM) Component Value [...] 0.00 /100 WBC Specimen Performing Laboratory Blood [facility] DEPARTMENT OF PATHOLOGY AND [address] [address] Immunoglobulin G (01/18/2018 10:15 AM) Component Value Ref Range IgG 759 700 - 1,600 mg/dL Specimen Performing Laboratory Plasma specimen [facility] DEPARTMENT OF PATHOLOGY AND [address] [address] Vancomycin level, random (01/18/2018 10:15 AM) Component Value Ref Range Vancomycin, random 6.1 ug/mL Specimen Performing Laboratory Serum [facility] DEPARTMENT OF PATHOLOGY AND [address] [address] [address] Chest Wo Contrast (01/18/2018 9:47 AM) Specimen Performing Laboratory [facility] [address] [place] [address] Narrative EXAMINATION: CT CHEST WO CONTRAST CLINICAL [...] chronic bronchitis without evidence of underlying pneumonia. [facility]-[id number] Procedure Note [facility], Radiology Results Incoming - 01/18/2018 [...] chronic bronchitis without evidence of underlying pneumonia. [facility]-[id number] CT Upper Extremity Wo Left (01/18/2018 9:47 AM) Specimen [facility] [address] [place] [address] Narrative EXAMINATION:CT UPPER EXTREMITY WO LEFT INDICATION:Dislocation. [...] - 2.2 mmol/L Specimen Performing Laboratory Blood [facility] DEPARTMENT OF PATHOLOGY AND GENOMIC MEDICINE [address] [place] [address] ECG 12 lead (01/18/2018 2:52 AM)Only the most recent of2 resultswithin the time period is included. Component Value Ref Range Ventricular rate [address] interval 146 QRSD interval 84 QT interval 366 QTC interval 442 P axis 1 70 QRS axis 1 57 T wave axis 90 EKG impression Normal sinus rhythm-Possible Inferior infarct , age undetermined-Abnormal ECG-In automated comparison with ECG of 09-NOV-2017 11:44,-No significant change was found- Specimen Performing Laboratory [facility] MUSE [address] [place] [address] Blood culture, aerobic & anaerobic (01/17/2018 11:13 PM)Only the most recent of2 resultswithin the time period is included. Component Value Ref Range Blood culture isolate No growth after 5 days of incubation. Comment: Specimen Information Specimen Source: Blood Specimen Site: Wrist, right Specimen Performing Laboratory Blood - Wrist, right [facility] OF PATHOLOGY AND GENOMIC MEDICINE [address] [place] [address] Hemoglobin A1c (01/17/2018 11:00 PM)Only the most [...] type 1 diabetes. Specimen Performing Laboratory Blood [facility] DEPARTMENT OF PATHOLOGY AND GENOMIC MEDICINE [address] [place] [address] Echocardiogram complete w contrast and 3D if needed (11/08/2017 3:44 PM) Specimen Performing Laboratory [facility] [address] [place] [address] Narrative Echocardiography Report [address] [facility] [address], [place] [address] Pat.Name:TAQUERIA JENKINS.ID:[id number] .Date: 11/08/2017 Refer.MD:DONALD EPSTEIN MD Exam Time: 3:44:00 PMStudy Type:Routine Echo Height:70inWeight: 193lb BSA: 2.06 m2 DOBAge:1945,72Y Sex: MALEBP:179/87 HR:82 bpm Sonogrphr: Nadira Rodriguez RDCS, RVT Pat. Stat.:OutpatientRoom:Treatment 3 Study Status:Final Echo Event ID:[id number] Order ID:[id number] Reason for Study:VAD and Cardiac Transplantation - [...] RAPof 10 mmHg. MEASUREMENTS: 2D Parasternal Long [place] Ao An2 cmLVPWd0.9 cm LVOT 1.8 cmLA Ds4.8 cm LVIDd4.7 cmIndex 2.3 cm/m Ao Rtd 3 cm Index1.5 cm/m LVIDs3 cm LV Pjjy872.4 g(122-174) LV%fs 36.5 % LVM Index 82.2 g/m2 IVSd 1.2 cmRWT0.4 LA Sng Plane LA Area 29.5 cm2(8.8-23.4) LA Vol 89 ml Index43.2 ml/m LA LngAx 7.9 cm Signed 11/09/2017 06:19 PM Meaghan Feliciano M.D. Procedure Note Interface, Radiology Results In - 11/09/2017 6:19 PM [facility] Echocardiography Report [address] [place] [address] Pat.Name: TAQUERIA JENKINS Pat.ID: [id number] .Date: 11/08/2017 Refer.MD: DONALD EPSTEIN MD Exam Time: 3:44:00 PM Study Type:Routine Echo Height: 70in Weight: 193lb BSA: 2.06 m2 Age: 2 1945,72Y Sex: MALE BP: 179/87 HR: 82 bpm Sonogrphr: Nadira Rodriguez RDCS, RVT Pat. Stat.:Outpatient Room: Treatment 3 Study Status:Final Echo Event ID:[id number] Order ID: [id number] Reason for Study:VAD and Cardiac Transplantation - [...] of 10 mmHg. MEASUREMENTS: 2D Parasternal Long [place] Ao An 2 cm LVPWd 0.9 cm [...] report.-Electronically Signed By Lola BLANK, Justen Matias ([id number]), sound editor Key Scott ([id number]) on 11/08/2017 1:36:13 PM Specimen Performing Laboratory [facility] MUSE [address] [place] [address] Stress test with myocardial perfusion (11/08/2017 12:19 PM) Specimen Performing Laboratory [facility] [address] [place] [address] Narrative Nuclear Cardiology and Cardiac CT [address] [place] [address] Myocardial Perfusion Imaging Report Stress ECG tracings are available in [employer], [employer] and [employer] All ECG interpretations are included in this report Pat.Name:TAQUERIA JENKINS TPat.ID:[id number] St.Date: 11/08/2017 Refer.MD:DONALD EPSTEIN MD Exam Time: 11:16:00 AM Study Type:Myocardial Perfusion Imaging Height:69inWeight: 193lb BSA: 2.04 m2 DOBAge:1945,72Y Sex: MALEBP:179/87 HR:74 bpm Nuclear Tech:Grecia Urias, [facility], ARRT(N), Giselle Jackson, [facility], [facility] Pat. Stat.:OutpatientNuclear Event ID:[id number] Order ID:[id number] Reason for Study:Annual Post Heart Transplant Evaluation History / Clinical:Heart Transplant, Congestive heart failure, Coronary artery disease, Diabetes, Family history CAD, Hypertension Procedures:Stress only Race: Risk Factors:Diabetes, Cardiovascular Disease, Hypertension, Family history of cardiovascular disease Clinical Symptoms:Regadenoson Physical Exam:S1, S2 Surgery: Outpatient Medications:Amlodipine, Aspirin, Zaroxyln, Imdur, Demadex, Folic acid, Boynton 3, Thiamine, Insulin, Labetolol SUMMARY: SCINTIGRAPHIC RESULTS [...] Radiology Results In - 11/08/2017 5:[address] DRAFTSPERSON Nuclear Cardiology and Cardiac CT [address] [place] [address] Myocardial Perfusion Imaging Report Stress ECG tracings are available in [employer], [employer] and [employer] All ECG interpretations are included in this report Pat.Name: TAQUERIA JENKINS Pat.ID: [id number] St.Date: 11/08/2017 Refer.MD: DONALD EPSTEIN MD Exam Time: 11:16:00 AM Study Type:Myocardial Perfusion Imaging Height: 69in Weight: 193lb BSA: 2.04 m2 Age: 2 1945,72Y Sex: MALE BP: 179/87 HR: 74 bpm Nuclear Tech:Grecia Urias, PLACEMENT MANAGER, ARRT(N), LISSETH PérezT, NMTCB Pat. Stat.:Outpatient Nuclear Event ID:[id number] Order ID: [id number] Reason for Study:Annual Post Heart Transplant Evaluation History / Clinical:Heart Transplant, Congestive heart failure, Coronary artery disease, Diabetes, Family history CAD, Hypertension Procedures:Stress only Race: Risk Factors:Diabetes, Cardiovascular Disease, Hypertension, Family history of cardiovascular disease Clinical Symptoms:Regadenoson Physical Exam:S1, S2 Surgery: Outpatient Medications:Amlodipine, Aspirin, Zaroxyln, Imdur, Demadex, Folic acid, Boynton 3, Thiamine, Insulin, Labetolol SUMMARY: SCINTIGRAPHIC RESULTS [...] time period is included. Specimen Performing Laboratory [facility] [address] [place] [address] Narrative Study:XR CHEST 2 VW History: Z94.1 Heart transplant status, T86.90 Unspecified complication of unspecified transplanted organ and tissue, Cough COMPARISON: August 05, 2017 IMPRESSION: 2 views of the chest.There is no focal consolidation, pleural effusion or pneumothorax.Cardiac silhouette is normal.Visualized osseous structures arestable. [id number] Procedure Note Interface, Radiology Results Incoming - 11/08/2017 10:[address] DRAFTSPERSON Study:XR CHEST 2 VW History: Z94.1 Heart transplant status, T86.90 Unspecified complication of unspecified transplanted organ and tissue, Cough COMPARISON: August 05, 2017 IMPRESSION: 2 views of the chest. There is no focal consolidation, pleural effusion or pneumothorax. Cardiac silhouette is normal. Visualized osseous structures are stable. [id number] Bone Density Peripheral (11/08/2017 9:58 AM) Specimen Performing Laboratory [facility] [address] [place] [address] Narrative EXAMINATION:BONE DENSITY PERIPHERAL CLINICAL HISTORY:Z94.1 Heart transplant status COMPARISON:10/12/2016 Impression: 1.See accession #IM [id number]. [id number] Procedure Note Interface, Radiology Results Incoming - 11/08/2017 10:[address] DRAFTSPERSON EXAMINATION: BONE DENSITY PERIPHERAL CLINICAL HISTORY: Z94.1 Heart transplant status COMPARISON: 10/12/2016 Impression: 1. See accession #IM [id number]. [id number] Bone Density (11/08/2017 9:56 AM) Specimen Performing Laboratory [facility] [address] [place] [address] Narrative EXAMINATION:BONE DENSITY CLINICAL HISTORY: 72 years [...] effect of treatments on patient over time. [id number] Procedure Note Hm Interface, Radiology Results Incoming - 11/08/2017 10:[address] DRAFTSPERSON EXAMINATION: BONE DENSITY CLINICAL HISTORY: 72 years [...] effect of treatments on patient over time. [id number] US Abdomen Complete (11/08/2017 9:00 AM) Specimen Performing Laboratory [address] [address] Narrative EXAM: US ABDOMEN COMPLETE CLINICAL DATA:Z94.1 [...] The spleen is homogeneous and not enlarged ngbqwdarx62.2 x 3.9 x 3.8 cm. RIGHT KIDNEY: [...] common iliac artery measuring approximately 3 cm. [id number] Procedure Note Interface, Radiology Results Incoming - 11/08/2017 11:[address] DESIGN DRAFTSPERSON EXAM: US ABDOMEN COMPLETE CLINICAL DATA: Z94.1 [...] common iliac artery measuring approximately 3 cm. [id number] Urinalysis screen and microscopy, with reflex to [...] /LPF Specimen Performing Laboratory Urine [facility] DEPARTMENT OF PATHOLOGY AND GENOMIC MEDICINE [address] [facility] [place] [address] Microalbumin, urine, random (11/08/2017 7:07 AM) Component Value Ref Range Total volume, urine No volume mL Urine creatinine concentration 96 mg/dL Urine microalbumin concentration 26.1 mg/dL Urine microalbumin/creatinine ratio 272 (H) 0 - 30 mg/g Specimen Performing Laboratory Urine [facility] DEPARTMENT OF PATHOLOGY AND GENOMIC MEDICINE [address] [place] [address] Donor specific antibody (11/08/2017 7:07 AM) Component Value Ref Range Donor specific antibody See link below for PDF Lab Report Specimen Performing Laboratory [facility] DEPARTMENT OF PATHOLOGY AND GENOMIC MEDICINE [address] [place] [address] Hepatitis acute panel (11/08/2017 7:07 AM) Component Value Ref Range Hepatitis A IgM Non-reactive Non-reactive Hepatitis B core IgM Non-reactive Non-reactive Hepatitis B surface Ag Non-reactive Non-reactive Hepatitis C Ab Non-reactive Non-reactive Specimen Performing Laboratory Blood [facility] OF PATHOLOGY AND [address] [address] Vitamin D 25 hydroxy level (11/08/2017 7:07 [...] methods. Specimen Performing Laboratory Blood [facility] DEPARTMENT OF PATHOLOGY AND GENOMIC MEDICINE [address] [place] [address] HIV 1, 2 antibody (11/08/2017 7:07 AM) Component Value Ref Range HIV 1, 2 antibody Non-reactive Non-reactive Comment: Starting from December 24 2015, 4th generation HIV screening and confirmation assays are in use at [facility], consistent with the CDC-recommended [...] on the testing algorithm, please refer to: http://stacks.cdc.gov/view/cdc/14337. Specimen Performing Laboratory Blood [facility] DEPARTMENT OF PATHOLOGY AND [address] [address] Urine culture (11/08/2017 7:07 AM) Component Value Ref Range Urine culture SEE COMMENTComment: Bacteriuria screen negative. Specimen Performing Laboratory [facility] DEPARTMENT OF PATHOLOGY AND [facility] [address] [place] [address] Uric acid level (11/08/2017 7:07 AM) Component Value Ref Range Uric acid 5.1 3.4 - 7.0 mg/dL Specimen Performing Laboratory Plasma specimen [facility] [address] [address] T3, free (11/08/2017 7:07 AM) Component Value Ref Range T3, free 3.3 2.4 - 4.2 pg/mL Comment: REFERENCE INTERVAL: Triiodothyronine, Free (Free T3) Access complete set of age- and/or gender-specific reference intervals for this test in the [facility] Laboratory Test Directory ([email or web address]). Performed by [employer], [address] [place] [address] [email or web address], Tommy Mckenzie MD - Lab. Director Specimen Performing Laboratory Serum [facility] [address] [place], [place] [id number] T3 (11/08/2017 7:07 AM) Component Value Ref Range T3 128 80 - 200 ng/dL Specimen Performing Laboratory Plasma specimen [facility] DEPARTMENT OF PATHOLOGY AND [facility] [address] [place] [address] Thyroid stimulating hormone (11/08/2017 7:07 AM) Component Value Ref Range TSH 3.37 0.27 - 4.20 uIU/mL Specimen Performing Laboratory Plasma specimen [facility] DEPARTMENT PATHOLOGY AND [address] [address] T4 (11/08/2017 7:07 AM) Component Value Ref Range T4 6.4 4.5 - 11.7 ug/dL Specimen Performing Laboratory Plasma specimen [facility] DEPARTMENT OF PATHOLOGY AND [facility] [address] [place] [address] Testosterone (11/08/2017 7:07 AM) Component Value Ref Range Testosterone 195 193 - 740 ng/dL Specimen Performing Laboratory Plasma specimen [facility] DEPARTMENT PATHOLOGY AND [facility] [address] [place] [address] Prostate specific antigen (11/08/2017 7:07 AM) Component Value Ref Range PSA 1.2 0.0 - 4.0 ng/mL Comment: The KEESHA 8000 PSA immunoassay was used. Results obtained with different assay methods or kits should not be used interchangeably and may be different. Specimen Performing Laboratory Plasma specimen [facility] DEPARTMENT OF PATHOLOGY AND [facility] [address] [place] [address] Parathyroid hormone (11/08/2017 7:07 AM) Component Value Ref Range PTH 99 (H) 15 - 65 pg/mL Specimen Performing Laboratory Blood [facility] PATHOLOGY [address] [address] Ionized calcium (11/08/2017 7:07 AM) Component Value Ref Range pH 7.38 Ionized calcium 1.24 1.11 - 1.32 mmol/L Specimen Performing Laboratory Plasma specimen [facility] PATHOLOGY [address] [address] Hepatic function panel (11/08/2017 7:07 AM)Only the [...] Specimen Performing Laboratory Plasma specimen [facility] DEPARTMENT OF PATHOLOGY AND [facility] [address] [place] [address] Lipid panel (11/08/2017 7:07 AM) Component Value Ref Range Cholesterol 180 <200 mg/dL Triglycerides 208 (H) <150 mg/dL HDL cholesterol 47 >40 mg/dL LDL cholesterol 103 (H)Comment: Result obtained by direct LDL <100 mg/dL measurement Lipid panel interpretation SeeBelow Comment: Total Cholesterol (mg/dL) <200 Desirable 505-697Mzwnbllkfx-jwvk >=240High Triglycerides (mg/dL) <150 Normal [phone]-sjif 200-499High >=500Very high HDL Cholesterol (mg/dL) <40Low (male) <40Low (female) LDL Cholesterol (mg/dL) <100 Optimal 100-129Near or above optimal 548-347Rmlidcrwuw-nalc 160-189High >=190Very high Risk Catergories that modify [...] Specimen Performing Laboratory Plasma specimen [facility] DEPARTMENT OF PATHOLOGY AND GENOMIC MEDICINE [address] [place] [address] Surgical pathology request (08/23/2017 10:50 AM) Component Value Ref Range Surgical pathology report See link below for PDF Lab Report Result status This is Final Report to [id number] Specimen Performing Laboratory [facility] DEPARTMENT OF PATHOLOGY AND GENOMIC MEDICINE [address] [place] [address] ECG ED Preliminary Interpretation - NOT AN ORDER (08/19/2017 1:53 PM) Narrative MOSHE Finley 08/18/20173:14 PM ECG ED Preliminary Interpretation - Not an Order Performed by: JULIET GARCIAS Authorized by: TIMO AYALAH ECG reviewed by ED Physician in the absence of a maintenance fitter: yes Previous ECG: Previous ECG:Compared to current [...] Specimen Performing Laboratory Plasma specimen [facility] DEPARTMENT OF PATHOLOGY AND GENOMIC MEDICINE [address] [place] [address] Amylase level (08/05/2017 2:00 PM) Component Value Ref Range Amylase 23 13 - 53 U/L Specimen Performing Laboratory Plasma specimen [facility] DEPARTMENT OF PATHOLOGY AND GENOMIC MEDICINE [address] [place] [address] Abdomen Wo Contrast (07/30/2017 4:45 PM) Specimen Performing Laboratory [facility] [address] [place] [address] Narrative EXAMINATION:CT ABDOMEN WO CONTRAST CLINICAL HISTORY:R10.10 [...] of herniated fat or bowel. [facility]-[id number] Procedure Note Interface, Radiology Results Incoming - [...] of herniated fat or bowel. [facility]-[id number] POC glycosylated hemoglobin (Hb A1C) (07/20/2017 9:21 AM) Component Value Ref Range POC Hemoglobin A1C 6.0 % Specimen Performing Laboratory Blood Pv duplex venous lower extremity (03/02/2017 9:12 AM) Specimen Performing Laboratory [facility] [address] [place] [address] Narrative Vascular Ultrasound Laboratory Lower Extremity Venous Report [address]Name:Nathan JENKINS.ID:[id number] .Date: 03/02/2017Refer.MD:YASH MILLER MD Exam Time: 8:07:00 AMStudy Type:LE Venous Height:69inWeight: 194lb BSA: 2.04 m2 DOBAge:1945,71Y Sex: MALESonogrphr: Juan Garner RN, RVS Pat. Stat.:OutpatientRoom:[facility] TapeVol: [facility], [facility] - 4: 43166 Echo Event ID:[id number] Order ID:[id number] Reason for Study:Left popliteal fossa pain for [...] Vascular Ultrasound Laboratory Lower Extremity Venous Report [id number] [address] Pat.Name: TAQUERIA JENKINS Pat.ID: [id number] St.Date: 03/02/2017 Refer.MD: YASH MILLER MD Exam Time: 8:07:00 AM Study Type:LE Venous Height: 69in Weight: 194lb BSA: 2.04 m2 Age: 2 1945,71Y Sex: MALE Sonogrphr: Juan Garner RN, RVS Pat. Stat.:Outpatient Room: [facility] Vol: PM, CPT - 4: [id number] Echo Event ID:[id number] Order ID: [id number] Reason for Study:Left popliteal fossa pain for [...] MEDICARE PART A AND B xxxxxxxxxx Medicare [place], [place] [employer] SUPP xxxxxxxxxx [address] [phone] [place], [place] [phone]
--- NOTE | 2018-02-24 21:11 | EDPHYS ---
Physician Documentation [facility] Name: Octavio Bueno Age: 72 yrs Sex: Male : 1945 Arrival Date: 02/24/2018 Time: 20:13 Bed 2 Private MD: ED Physician Pawel Quesada HPI: 02/24 21:43 This 72 yrs old Male presents to ER via Ambulatory with complaints of fever tw4 weakness. 21:43 The patient reports fever, that was measured at 100.8 degrees Fahrenheit. Onset: The tw4 symptoms/episode began/occurred 3 day(s) ago. Modifying factors: there are no obvious modifying factors. Associated signs and symptoms: Pertinent positives: diarrhea, Pertinent negatives: abdominal pain, altered mental status, arthralgias, backache, chest pain, chills, cough, headache, myalgias, runny nose. Severity of symptoms: At their worst the symptoms were moderate in the emergency department the symptoms are unchanged. The patient has been recently seen at the [facility] Emergency Department, today, for similar complaints. Historical: - Allergies: 20:34 NKA; aa1 - Home Meds: 20:34 allopurinol 100 mg Oral tab 1 tab 2 times per day [Active]; alprazolam 0.5 mg Oral tab aa1 1 tab daily [Active]; amlodipine 5 mg tab 1 tab once daily [Active]; aspirin 81 mg Oral TbEC 1 tab once daily [Active]; CellCept 500 mg Oral tab 1 tabs 2 times per day [Active]; ferrous sulfate 325 mg (65 mg iron) Oral tab daily [Active]; folic acid 1 mg Oral tab 1 tab once daily [Active]; gabapentin 300 mg Oral cap 1 cap 3 times per day [Active]; isosorbide mononitrate 30 mg Oral Tb24 1 tab once daily [Active]; labetalol 300 mg Oral tab 1 tab 2 times per day [Active]; magnesium oxide 400 mg Oral tab twice a day [Active]; metolazone 2.5 mg Oral tab 1 tab once daily [Active]; Nexium 40 mg Oral cpDR 1 cap once daily [Active]; Novolin 70/30 Innolet Sub-Q 70-30 unit/mL twice a day [Active]; potassium chloride 10 mEq Oral cpER 1 cap once daily [Active]; pravastatin 40 mg Oral tab 1 tab once daily [Active]; prednisone 5 mg Oral tab once daily [Active]; Prograf 0.5 mg Oral cap every 12 hours [Active]; Singulair 10 mg Oral tab 1 tab once daily [Active]; tamsulosin 0.4 mg Oral cp24 1 cap once daily [Active]; torsemide 20 mg Oral tab 2 tabs once daily [Active]; - PMHx: 20:34 Diabetes - IDDM; Gout; Myocardial infarction; aa1 - PSHx: 20:34 heart transplant 2006; aa1 - Immunization history:: Flu vaccine is not up to date. - Social history:: Smoking status: Patient/guardian denies using tobacco. - Ebola Screening: : Patient denies exposure to infectious person Patient denies travel to an Ebola-affected area in the 21 days before illness onset. ROS: 21:43 Eyes: Negative for injury, pain, redness, and discharge, Cardiovascular: Negative for tw4 chest pain, palpitations, and edema, Respiratory: Negative for shortness of breath, cough, wheezing, and pleuritic chest pain. 21:43 Back: Negative for injury and pain, MS/Extremity: Negative for injury and deformity, Skin: Negative for injury, rash, and discoloration, Psych: Negative for depression, anxiety, suicide ideation, homicidal ideation, and hallucinations. 21:43 Constitutional: Positive for chills, fatigue, fever, malaise, poor PO intake, Negative for body aches. 21:43 Abdomen/GI: Positive for diarrhea, anorexia, Negative for abdominal pain, nausea and vomiting, nausea, vomiting, and diarrhea, nausea, vomiting, abdominal cramps, abdominal distension, dysphagia, hematemesis, black/tarry stool, rectal pain, rectal bleeding. Exam: 21:43 Head/Face: Normocephalic, atraumatic. Chest/axilla: Normal chest wall appearance and tw4 motion. Nontender with no deformity. No lesions are appreciated. Cardiovascular: Regular rate and rhythm with a normal S1 and S2. No gallops, murmurs, or rubs. Normal PMI, no JVD. No pulse deficits. Respiratory: Lungs have equal breath sounds bilaterally, clear to auscultation and percussion. No rales, rhonchi or wheezes noted. No increased work of breathing, no retractions or nasal flaring. Abdomen/GI: Soft, non-tender, with normal bowel sounds. No distension or tympany. No guarding or rebound. No evidence of tenderness throughout. Back: No spinal tenderness. No costovertebral tenderness. Full range of motion. MS/ Extremity: Pulses equal, no cyanosis. Neurovascular intact. Full, normal range of motion. Neuro: Awake and alert, GCS 15, oriented to person, place, time, and situation. Cranial nerves II-XII grossly intact. Motor strength 5/5 in all extremities. Sensory grossly intact. Cerebellar exam normal. Normal gait. 21:43 Constitutional: The patient appears alert, awake, obviously ill. Vital Signs: 20:34 BP 168 / 75; Pulse 107; Resp 18; Temp 98.8; Pulse Ox 99% on R/A; Weight 86.64 kg; aa1 Height 5 ft. 9 in. (175.26 cm); Pain 0/10; 21:52 BP 128 / 71; Pulse 87; Resp 18; Pulse Ox 95% on R/A; Pain 0/10; mg2 20:34 Body Mass Index 28.21 (86.64 kg, 175.26 cm) aa1 MDM: 20:37 Patient medically screened. tw4 21:43 Differential diagnosis: viral Infection, bacterial infection, URI. Data reviewed: vital tw4 signs, nurses notes. Data interpreted: cafeteria monitor: rhythm is normal sinus rhythm, Pulse oximetry: Interpretation: normal. Test interpretation: by ED physician or midlevel provider: plain radiologic studies. Counseling: I had a detailed discussion with the patient and/or guardian regarding: the historical points, exam findings, and any diagnostic results supporting the discharge/admit diagnosis, lab results, radiology results, the need to transfer to another facility. ED course: D/W Dr Faulkner from [facility] will accept for transfer for FUO and workup. Pt started on Vancomycin and Gentamicin. Pt has no new complaints in the ED.. 02/24 20:48 Order name: CBC with Diff tw4 02/24 20:48 Order name: CMP tw4 02/24 20:48 Order name: CBC with Automated Diff EDMS 02/24 21:43 Order name: Manual Differential EDMS Administered Medications: 21:19 Drug: Gentamicin 1 mg/kg Route: IVPB; Infused Over: 30 mins; Site: right antecubital; mg2 21:52 Follow up: Response: No adverse reaction; IV Status: Completed infusion mg2 21:51 Drug: vancoMYCIN 1 grams Route: IVPB; Infused Over: 2 hrs; Site: right antecubital; mg2 Disposition: 02/24/18 21:10 Transfer ordered to [facility]. Diagnosis is Fever of other and unknown origin. - Reason for transfer: Higher level of care. - Accepting physician is Dr Faulkner. - Condition is Stable. - Problem is an ongoing problem. - Symptoms are unchanged. Signatures: Dispatcher [employer] Kaylin Mendoza RN RN aa1 Pawel Quesada MD MD tw4 Cody Soto RN RN mg2 Corrections: (The following items were deleted from the chart) 23:00 21:10 02/24/2018 21:10 Transfer ordered to [facility]. Diagnosis is mg2 Fever of other and unknown origin. Reason for transfer: Higher level of care. Accepting physician is Dr Faulkner. Condition is Stable. Problem is an ongoing problem. Symptoms are unchanged. tw4
--- NOTE | 2018-02-24 21:11 | ER ---
Nurse's Notes [facility] Name: Octavio Bueno Age: 72 yrs Sex: Male : 1945 Arrival Date: 02/24/2018 Time: 20:13 Bed 2 Private MD: Diagnosis: Fever of other and unknown origin Presentation: 02/24 20:24 Presenting complaint: Patient states: he was seen here earlier today for diarrhea and aa1 fever and was discharged with a UTI but reports he has had 2 more episodes of diarrhea since then and is feeling worse. States, "I don't hurt I'm just uncomfortable.". Transition of care: patient was not received from another setting of care. Onset of symptoms was February 24, 2018. Risk Assessment: Do you want to hurt yourself or someone else? Patient reports no desire to harm self or others. Initial Sepsis Screen: Does the patient meet any 2 criteria? HR > 90 bpm. No. Patient's initial sepsis screen is negative. Does the patient have a suspected source of infection? Yes: Dysuria/Frequency/Urgency/UTI. Care prior to arrival: None. 20:24 Method Of Arrival: Ambulatory aa1 20:24 Acuity: YAHIR 3 aa1 Historical: - Allergies: 20:34 NKA; aa1 - Home Meds: 20:34 allopurinol 100 mg Oral tab 1 tab 2 times per day [Active]; alprazolam 0.5 mg Oral tab aa1 1 tab daily [Active]; amlodipine 5 mg tab 1 tab once daily [Active]; aspirin 81 mg Oral TbEC 1 tab once daily [Active]; CellCept 500 mg Oral tab 1 tabs 2 times per day [Active]; ferrous sulfate 325 mg (65 mg iron) Oral tab daily [Active]; folic acid 1 mg Oral tab 1 tab once daily [Active]; gabapentin 300 mg Oral cap 1 cap 3 times per day [Active]; isosorbide mononitrate 30 mg Oral Tb24 1 tab once daily [Active]; labetalol 300 mg Oral tab 1 tab 2 times per day [Active]; magnesium oxide 400 mg Oral tab twice a day [Active]; metolazone 2.5 mg Oral tab 1 tab once daily [Active]; Nexium 40 mg Oral cpDR 1 cap once daily [Active]; Novolin 70/30 Innolet Sub-Q 70-30 unit/mL twice a day [Active]; potassium chloride 10 mEq Oral cpER 1 cap once daily [Active]; pravastatin 40 mg Oral tab 1 tab once daily [Active]; prednisone 5 mg Oral tab once daily [Active]; Prograf 0.5 mg Oral cap every 12 hours [Active]; Singulair 10 mg Oral tab 1 tab once daily [Active]; tamsulosin 0.4 mg Oral cp24 1 cap once daily [Active]; torsemide 20 mg Oral tab 2 tabs once daily [Active]; - PMHx: 20:34 Diabetes - IDDM; Gout; Myocardial infarction; aa1 - PSHx: 20:34 heart transplant 2006; aa1 - Immunization history:: Flu vaccine is not up to date. - Social history:: Smoking status: Patient/guardian denies using tobacco. - Ebola Screening: : Patient denies exposure to infectious person Patient denies travel to an Ebola-affected area in the 21 days before illness onset. Screenin:30 Abuse screen: Denies threats or abuse. Denies injuries from another. Nutritional mg2 screening: No deficits noted. Tuberculosis screening: No symptoms or risk factors identified. Fall Risk. Assessment: 20:36 General: Appears in no apparent distress. comfortable, Behavior is calm, cooperative. mg2 Pain: Denies pain. Neuro: Level of Consciousness is awake, alert, obeys commands, Oriented to person, place, time. Cardiovascular: Capillary refill < 3 seconds Patient's skin is warm and dry. Respiratory: Airway is patent Respiratory effort is even, unlabored. GI: Reports diarrhea. : Reports burning with urination. EENT: No signs and/or symptoms were reported regarding the EENT system. Derm: Skin is intact, Skin is pink, warm \\T\\ dry. normal. Musculoskeletal: No signs and/or symptoms reported regarding the musculoskeletal system. 22:04 Reassessment: report given to nurse Davis of [facility]. mg2 22:16 Reassessment: Patient appears in no apparent distress at this time. Patient and/or mg2 family updated on plan of care and expected duration. Pain level reassessed. Patient is alert, oriented x 3, equal unlabored respirations, skin warm/dry/pink. Vital Signs: 20:34 BP 168 / 75; Pulse 107; Resp 18; Temp 98.8; Pulse Ox 99% on R/A; Weight 86.64 kg; aa1 Height 5 ft. 9 in. (175.26 cm); Pain 0/10; 21:52 BP 128 / 71; Pulse 87; Resp 18; Pulse Ox 95% on R/A; Pain 0/10; mg2 20:34 Body Mass Index 28.21 (86.64 kg, 175.26 cm) aa1 ED Course: 20:13 Patient arrived in ED. rg2 20:13 Pawel Quesada MD is Attending Physician. rg2 20:18 Cody Soto, RN is Primary Nurse. mg2 20:30 Triage completed. aa1 20:30 Patient has correct armband on for positive identification. Placed in gown. Bed in low mg2 position. Call light in reach. Side rails up X 1. Door closed. Warm blanket given. 20:34 Arm band placed on right wrist. Patient placed in an exam room, on a stretcher. aa1 21:18 Initial lab(s) drawn, by me, sent to lab. Inserted saline lock: 20 gauge in right cb2 antecubital area, using aseptic technique. Blood collected. 21:25 No provider procedures requiring assistance completed. mg2 22:59 Patient transferred, IV remains in place. mg2 Administered Medications: 21:19 Drug: Gentamicin 1 mg/kg Route: IVPB; Infused Over: 30 mins; Site: right antecubital; mg2 21:52 Follow up: Response: No adverse reaction; IV Status: Completed infusion mg2 21:51 Drug: vancoMYCIN 1 grams Route: IVPB; Infused Over: 2 hrs; Site: right antecubital; mg2 Outcome: 21:10 ER care complete, transfer ordered by . tw4 22:40 Instructed on the need for transfer, Demonstrated understanding of instructions. mg2 22:40 Transferred by ground EMS to [facility]. mg2 22:40 Condition: stable 23:00 Patient left the ED. mg2 Signatures: Kishore Freeman rg2 Kaylin Guzman RN RN aa1 Saul Kothari cb2 Pawel Quesada MD MD tw4 Cody Soto, MELINDA RN mg2 Corrections: (The following items were deleted from the chart) 23:00 22:58 Transferred by ground EMS to [facility], mg2 mg2 23:00 22:58 Condition: stable mg2 mg2
[2018-02-24] MEDS ORDERED: GENTAMICIN 80 MG/100 ML BAG 80 MG/100 ML BAG IV ONE (21:12)
[2018-02-24] MEDS ORDERED: VANCOMYCIN 1 GM/250 ML BAG ONE (21:12)
[2018-02-24 21:29] LABS: Absolute Lymphocytes (CBC) 0.4 K/uL (0.7-4.9); Absolute Monocytes 0.6 K/uL (0.1-1.3); Absolute Neutrophil 6.1 K/uL (1.8-8.0); Basophils % 0.2 % (0-1.3); Hematocrit 40.7 % (39.6-49.0); Lymphocytes % 5.1 % (15.3-44.8); MCH 32.3 pg (27.0-35.0); MPV 8.6 fL (7.6-11.3); Monocytes % 8.7 % (3.3-12.3); RBC Red Blood Cell Count 4.24 M/uL (4.33-5.43)
[2018-02-24 21:45] LABS: Potassium 3.6 mEq/L (3.6-5.0)
[2018-02-24 21:48] LABS: Albumin 3.7 g/dL (3.2-5.5); Protein, Total 6.9 g/dL (6.0-8.3)
[2018-02-24 22:59] LABS: Blood Morphology Comment NOT SEEN (NOT SEEN); Platelet Estimate ADEQ
[2018-02-24 23:12] VITALS: BP 128/71; TEMP 98.8; O2SAT 95
== END 2018-02-24 23:00 | disposition short-term general hospital (02) ==
LOC: ER 20:06
DX: K59.03 Drug induced constipation (principal); T43.625A Adverse effect of amphetamines, initial encounter; Y92.019 Unspecified place in single-family (private) house as the place of occurrence of the external cause; F17.210 Nicotine dependence, cigarettes, uncomplicated
CPT/HCPCS: 36415; 80053; 85025; 96365; 96375; 99285; J1580; J3370

== ENCOUNTER 2018-04-07 21:36 | Emergency (ER) | payer OTHER ==
--- OUTSIDE RECORDS SUMMARY | 2018-04-07 21:40 | XMS REPORT | Clinical Summary ---
:1945 Author Organization [facility] Address [address] [place] [address] Care Team Providers Name Role Phone Britney [...] by Active carbonate-vitamin mouth 2 (two) D3 600 mg(1,500mg) times a day with -200 unit per meals. tablet multivitamin Take 1 tablet by Active [...] 2 Active TEST strip test 7 strips potassium chloride Take 2 tablets (20 60 [...] mg total) by mouth 8 tablet daily. esomeprazole Take 40 mg by 30 [...] mg total) by mouth 8 tablet daily. ONETOUCH DELICA USE 4 TIMES A DAY 400 each 1 Active LANCETS 33 gauge 8 miscIndications: Uncontrolled diabetes mellitus type 2 without complications, unspecified chcf insulin use status ONETOUCH ULTRA TEST 4 TIMES A DAY 400 strip 2 Active BLUE TEST STRIP 8 strip test stripsIndications: History of heart transplant, Uncontrolled type 2 diabetes mellitus without complication, with long-term current use of insulin predniSONE TAKE 1 AND 09/28 45 tablet 9 12/10/19 Active (DELTASONE) 5 mg TABLET BY MOUTH 8 19 tablet EVERY DAY mupirocin Apply topically 3 Active (BACTROBAN) 2 % (three) times a ointment day. omega Take 2,000 mg by Active 1-wcb-adf-fish oil mouth 2 (two) (FISH OIL) 1,000 times a day. mg (120 mg-180 mg) capsule thiamine 100 MG Take 100 mg by Active tablet mouth daily. predniSONE Take 1.5 tablets 135 tablet 3 03/24/20 Active (DELTASONE) 5 mg (7.5 mg total) by 8 19 tablet mouth daily. Z94.1 Heart Transplant Status Post esomeprazole Take 40 mg by 01/23/20 Discontinued [...] 3 11/10/19 Discontinued diagnostic strips 7 18 (Evolve PartnersUCH VERIO) strip test stripsIndications: Uncontrolled type 2 [...] SYRINGE ULTRA-FINE) 0.5 mL 31 gauge x 16 syringeIndications : Uncontrolled type 2 diabetes mellitus [...] 18 tablet 2 (two) times a day. blood sugar Patient testing 1 400 strip 3 03/02/20 Discontinued diagnostic strips strips 4 times a 7 18 strip test day stripsIndications: History of heart transplant, Uncontrolled type 2 diabetes mellitus without complication, with long-term current use of insulin lancets (ONETOUCH Inject 1 Device 400 each 3 03/02/20 Discontinued DELICA LANCETS) 33 into the skin 4 18 gauge (four) times a miscIndications: day. Uncontrolled diabetes mellitus type 2 without complications, unspecified chcf insulin use status gabapentin Take 1 capsule 180 capsule 3 [...] (CELLCEPT) 500 mg follow-up 8 18 tablet predniSONE Take 1.5 tablets 45 tablet 11 03/24/20 Discontinued (DELTASONE) 5 mg (7.5 mg total) by 8 18 tablet mouth daily. mycophenolate Take 1 tablet (500 60 tablet 0 02/28/20 Discontinued (CELLCEPT) 500 mg mg total) by mouth 8 18 tablet 2 (two) times a day. Z94.1 heart transplant ciprofloxacin HCl Take 1 tablet (500 14 tablet 0 03/06/20 (CIPRO) 500 MG mg total) by mouth 8 18 tablet 2 (two) times a day for 7 days. Active Problems Problem Noted Date Diarrhea 02/25/2018 Cellulitis 01/17/2018 Chest pain 08/05/2017 Type II [...] Encounters Date Type Specialty Care Team Description 03/24/2018 Refill Transplant Pancho Gallo Refill PEREZ Hickey 03/08/2018 Hospital Encounter Transplant Minal, History of heart transplant (Primary Dx); MD Yash Chronic kidney disease, stage V; Diabetes mellitus due to underlying condition with chronic kidney disease, without long-term current use of insulin, unspecified CKD stage; Mixed hyperlipidemia; Essential hypertension; Long-term use of immunosuppressant medication; Heart replaced by transplant; Infection; custodial current use 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; Therapeutic drug monitoring 03/08/2018 Hospital Encounter Transplant Minal, Heart replaced by transplant; MD Yash Infection; custodial current use 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; Therapeutic drug monitoring; Metabolic syndrome; CRF (chronic renal failure), stage 3 (moderate); Cytomegalovirus infection, unspecified cytomegaloviral infection type; Essential hypertension; Hyperlipidemia associated with type 2 diabetes mellitus 03/07/2018 Refill Cardiology Donald Epstein MD 03/02/2018 Refill Endocrinology Britney Maloney Uncontrolled diabetes mellitus type 2 without complications, unspecified chcf insulin use status; MD Hany History of heart transplant; Uncontrolled type 2 diabetes mellitus without complication, with long- term current use of insulin 02/24/2018 Hospital Encounter Transplant Khalida Faulkner - MD 02/27/2018 02/24/2018 Documentation Transplant Chase Roman RN 02/01/2018 Hospital Encounter Transplant Donald Epstein History of heart transplant (Primary Dx); MD Chris Chronic kidney disease, stage V; Diabetes mellitus due to underlying condition with chronic kidney disease, without long-term current use of insulin, unspecified CKD stage; Mixed hyperlipidemia; Essential hypertension; Long-term use of immunosuppressant medication; Heart replaced by transplant; Infection; custodial current use 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; Therapeutic drug monitoring 02/01/2018 Hospital Encounter Transplant Minal, Heart replaced by transplant; MD Yash Infection; custodial current use 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; Therapeutic drug monitoring; Metabolic syndrome; CRF (chronic renal failure), stage 3 (moderate); Cytomegalovirus infection, unspecified cytomegaloviral infection type; Essential hypertension; Hyperlipidemia associated with type 2 diabetes mellitus 01/28/2018 Hospital Encounter Transplant Donald Epstein Heart replaced by transplant; MD Chris 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; 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; Therapeutic drug monitoring; Metabolic syndrome; CRF (chronic renal failure), stage 3 (moderate); Cytomegalovirus infection, unspecified cytomegaloviral infection type; Essential hypertension; Hyperlipidemia associated with type 2 diabetes mellitus 01/24/2018 Orders Only Transplant Chase Roman, Heart replaced by transplant (Primary Dx); RN Infection; custodial current use 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; Therapeutic drug monitoring; Metabolic syndrome; CRF (chronic renal failure), stage 3 (moderate); Cytomegalovirus infection, unspecified cytomegaloviral infection type; Essential hypertension; Hyperlipidemia associated with type 2 diabetes mellitus 01/24/2018 Documentation Transplant Miranda Gomez, Nursing Inpatient to RN Outpatient HandOff 01/17/2018 Hospital Encounter Transplant Donald Epstein MD 01/22/2018 Gene Muniz MD 01/13/2018 Orders Only Transplant Chase Roman RN 12/20/2017 Refill Transplant Gallo, Med Refill [place], [place] 12/17/2017 Refill Endocrinology Britney Maloney Uncontrolled type 2 MD Hany diabetes mellitus without complication, with long-term current use of insulin 12/17/2017 Refill Cardiology Donald Epstein Refill MD Chris 12/06/2017 Documentation Transplant Chase Roman RN 11/28/2017 Refill Cardiology Donald Epstein Refill MD Chris 11/23/2017 Documentation Transplant Ester Barajas 11/18/2017 Abstract Transplant Chase Roman RN 11/16/2017 Refill Transplant Gallo, Med Refill [place], [place] 11/16/2017 Orders Only Transplant Chase Roman RN 11/12/2017 Refill Cardiology Donald Epstein Refill MD Chris 11/09/2017 Hospital Encounter Transplant [...] unspecified laterality 11/08/2017 Hospital Encounter Procedural Cardiology LucianDonald Heart replaced by MD Chris transplant 11/08/2017 Hospital Encounter Procedural Cardiology LucianDonald jerry Heart replaced by transplant; MD [...] Infection; Bone loss 11/08/2017 Hospital Encounter Radiology LucianDonald jerry Heart replaced by transplantKuldip Perez MD Complication of transplanted organ; Essential hypertension; Long-term use of immunosuppressant medication; Metabolic syndrome; Hyperlipidemia associated with type 2 diabetes mellitus; Chronic fatigue; Infection; Bone loss 11/08/2017 Hospital Encounter Radiology LucianDonald Heart replaced by transplant; MD Chris Complication of transplanted organ; Essential hypertension; Long-term use of immunosuppressant medication; Metabolic syndrome; Hyperlipidemia associated with type 2 diabetes mellitus; Chronic fatigue; Infection 11/08/2017 Hospital Encounter Transplant LucianDonald jerry Heart replaced by transplantKuldip Perez MD Complication of transplanted organ; Essential hypertension; Long-term use of immunosuppressant medication; Metabolic syndrome; Hyperlipidemia associated with type 2 diabetes mellitus; Chronic fatigue; Infection; Bone loss; Prostate cancer screening; Cytomegalovirus infection, unspecified cytomegaloviral infection type 11/08/2017 Ancillary Orders Transplant LucianDonald Heart replaced by transplant; MD Chris Complication of transplanted organ; 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 Orders Only Transplant Chase Roman, Heart replaced by documentation nurse (Primary Dx) 11/08/2017 Ancillary Orders Radiology LucianDonald jerry Heart replaced by MD Chris transplant 11/04/2017 Refill Transplant Pan, Med Refill Nikkita 11/03/2017 Telephone Transplant Dariusz Clements, Med Refill [place] 11/01/2017 Refill Cardiology Donald Epstein Refill MD Chris 10/25/2017 Refill Cardiology Donald Epstein Refill MD Chris 10/21/2017 Orders Only Transplant [...] Bone loss 09/16/2017 Refill Cardiology Donald Epstein Refill MD Chris 09/15/2017 Office Visit Gastroenterology Jaleesa, Epigastric pain ( Primary Dx); Gallito Moses Gastroesophageal reflux disease without esophagitis 09/02/2017 Refill Endocrinology Britney Maloney MD 08/26/2017 Documentation Gastroenterology Gallito Lazcano MD 08/23/2017 Hospital Encounter Gastroenterology Greg Spicer MD 08/23/2017 Anesthesia Event Gastroenterology Mark Madsen MD 08/23/2017 Procedure Pass Gastroenterology 08/23/2017 Surgery Gastroenterology STORMY Spicer with Mike Adames MD 08/13/2017 Telephone GastroenterGallito Ly MD 08/11/2017 Documentation Transplant Jessie Chase, EGD Cardiac Clearance RN 08/11/2017 Documentation Transplant Chase Roman, Error RN 08/10/2017 Telephone GastroenterGallito Ly MD 08/05/2017 Emergency Emergency Medicine Ayala, Chest pain, unspecified type (Primary Dx); [facility] [place], Chronic kidney disease, stage V 08/05/2017 Hospital Encounter Gastroenterology Greg Spicer MD [place], Barry, MD 08/05/2017 Anesthesia Event Gastroenterology Dustin Street MD 08/05/2017 Procedure Pass Gastroenterology 08/02/2017 Orders Only Gastroenterology Gallito Lazcano MD 08/02/2017 Telephone Gastroenterology Tim AntonietaMICHELLE dasilva 08/02/2017 Documentation Transplant Chase Roman RN 08/02/2017 [...] Chase Roman RN 07/05/2017 Refill Cardiology Donald Epstein MD after 04/06/2017 Family History Medical History Relation Name Comments [...] Vital Sign Reading Time Taken Blood Pressure 146/73 03/08/2018 10:53 AM CDT Pulse 83 03/08/2018 9:30 AM CDT Temperature 36.9 C (98.4 F) 03/08/2018 9:30 AM CDT Respiratory Rate 18 03/08/2018 9:30 AM CDT Oxygen Saturation 93% 03/08/2018 9:30 AM CDT Inhaled Oxygen Concentration - - Weight 87.5 kg (193 lb) 03/08/2018 9:30 AM CDT Height 175.3 cm (5' 9") 03/08/2018 9:30 AM CDT Body Mass Index 28.5 03/08/2018 9:30 AM CDT Plan of Treatment Date Type Specialty Care Team Description 04/20/2018 Office Visit Endocrinology Britney Maloney MD [address] [place] [address] [phone] Health Maintenance Due Date Last Done Comments COLON CANCER SCREENING 1993 SHINGRIX VACCINE (#1) 1993 ZOSTER VACCINE 2003 PNEUMOCOCCAL POLYSACCHARIDE VACCINE 2008 AGE 65 AND OVER PNEUMOCOCCAL-13 2008 INFLUENZA VACCINE 04/27/2018 DIABETIC FOOT EXAM 07/20/2018 07/20/2017, 07/20/2017, 10/12/2016, Additional history exists DIABETIC RETINAL EYE EXAM 07/06/2019 07/06/2017, 06/15/2016, 06/27/2015 Procedures Procedure Name Priority Date/Time Associated Diagnosis Comments ECG 12-LEAD Routine 03/08/2018 Heart replaced by 9:36 AM CDT transplant Infection custodial current use 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 Therapeutic drug monitoring Metabolic syndrome CRF (chronic renal failure), stage 3 (moderate) Cytomegalovirus infection, unspecified cytomegaloviral infection type Essential hypertension Hyperlipidemia associated with type 2 diabetes mellitus ESTIMATED GFR STAT 03/08/2018 Results for 9:14 AM CDT this procedure are in the results section. 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 Therapeutic drug monitoring Metabolic syndrome CRF (chronic renal failure), stage 3 (moderate) Cytomegalovirus infection, unspecified cytomegaloviral infection type Essential hypertension Hyperlipidemia associated with type 2 diabetes mellitus FK506 LEVEL STAT 03/08/2018 Heart replaced by Results for 9:14 AM CDT transplant this Infection procedure custodial current use are in the of immunosuppressive results drug section. 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 Therapeutic drug monitoring Metabolic syndrome CRF (chronic renal failure), stage 3 (moderate) Cytomegalovirus infection, unspecified cytomegaloviral infection type Essential hypertension Hyperlipidemia associated with type 2 diabetes mellitus B NATRIURETIC PEPTIDE STAT 03/08/2018 Heart replaced by Results for 9:14 AM CDT transplant this Infection procedure custodial current use are in the of immunosuppressive results drug section. 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 Therapeutic drug monitoring Metabolic syndrome CRF (chronic renal failure), stage 3 (moderate) Cytomegalovirus infection, unspecified cytomegaloviral infection type Essential hypertension Hyperlipidemia associated with type 2 diabetes mellitus HC COMPLETE BLD COUNT W/AUTO STAT 03/08/2018 Heart replaced by Results for DIFF 9:14 AM CDT transplant this Infection procedure custodial current use are in the of immunosuppressive results drug section. Therapeutic drug monitoring Metabolic syndrome CRF (chronic renal failure), stage 3 (moderate) Cytomegalovirus infection, unspecified cytomegaloviral infection type Essential hypertension Hyperlipidemia associated with type 2 diabetes mellitus MAGNESIUM LEVEL STAT 03/08/2018 Heart replaced by Results for 9:14 AM CDT transplant this Infection procedure custodial current use are in the of immunosuppressive results drug section. Therapeutic drug monitoring Metabolic syndrome CRF (chronic renal failure), stage 3 (moderate) Cytomegalovirus infection, unspecified cytomegaloviral infection type Essential hypertension Hyperlipidemia associated with type 2 diabetes mellitus COMPREHENSIVE METABOLIC PANEL STAT 03/08/2018 Heart replaced by Results for 9:14 AM CDT transplant this Infection procedure custodial current use are in the of immunosuppressive results drug section. Therapeutic drug monitoring Metabolic syndrome CRF (chronic renal failure), stage 3 (moderate) Cytomegalovirus infection, unspecified cytomegaloviral infection type Essential hypertension Hyperlipidemia associated with type 2 diabetes mellitus POC GLUCOSE Routine 02/27/2018 Results for 7:18 AM CDT this procedure are in the results section. ESTIMATED GFR Routine 02/27/2018 Results for 4:50 AM CDT this procedure are in the results section. FK506 LEVEL Routine 02/27/2018 Results for 4:50 AM CDT this procedure are in the results section. BASIC METABOLIC PANEL Routine 02/27/2018 Results for 4:50 AM CDT this procedure are in the results section. HC COMPLETE BLD COUNT W/AUTO Routine 02/27/2018 Results for DIFF 4:50 AM CDT this procedure are in the results section. POC GLUCOSE Routine 02/26/2018 Results for 9:49 PM CDT this procedure are in the results section. POC GLUCOSE Routine 02/26/2018 Results for 5:34 PM CDT this procedure are in the results section. POC GLUCOSE Routine 02/26/2018 Results for 12:35 PM CDT this procedure are in the results section. POC GLUCOSE Routine 02/26/2018 Results for 7:58 AM CDT this procedure are in the results section. SALMONELLA/SHIGELLA CULTURE Routine 02/26/2018 Results for 7:52 AM CDT this procedure are in the results section. GASTROINTESTINAL PANEL Routine 02/26/2018 Results for 7:52 AM CDT this procedure are in the results section. PHOSPHORUS LEVEL Routine 02/26/2018 Results for 5:20 AM CDT this procedure are in the results section. MAGNESIUM LEVEL Routine 02/26/2018 Results for 5:20 AM CDT this procedure are in the results section. MANUAL DIFFERENTIAL Routine 02/26/2018 Results for 5:20 AM CDT this procedure are in the results section. ESTIMATED GFR Routine 02/26/2018 Results for 5:20 AM CDT this procedure are in the results section. CYTOMEGALOVIRUS BY PCR Routine 02/26/2018 Results for 5:20 AM CDT this procedure are in the results section. FK506 LEVEL Routine 02/26/2018 Results for 5:20 AM CDT this procedure are in the results section. BASIC METABOLIC PANEL Routine 02/26/2018 Results for 5:20 AM CDT this procedure are in the results section. CBC WITH PLATELET AND Routine 02/26/2018 Results for DIFFERENTIAL 5:20 AM CDT this procedure are in the results section. POC GLUCOSE Routine 02/25/2018 Results for 9:15 PM CDT this procedure are in the results section. POC GLUCOSE Routine 02/25/2018 Results for 5:52 PM CDT this procedure are in the results section. ECHOCARDIOGRAM 2D COMPLETE W Routine 02/25/2018 Results for MMODE SPECTRAL COLOR DOPPLER 3:00 PM CDT this ([id number]) procedure are in the results section. POC GLUCOSE Routine 02/25/2018 Results for 12:56 PM CDT this procedure are in the results section. LACTIC ACID LEVEL STAT 02/25/2018 Results for 8:15 AM CDT this procedure are in the results section. POC GLUCOSE Routine 02/25/2018 Results for 7:47 AM CDT this procedure are in the results section. ESTIMATED GFR Routine 02/25/2018 Results for 5:50 AM CDT this procedure are in the results section. BASIC METABOLIC PANEL Routine 02/25/2018 Results for 5:50 AM CDT this procedure are in the results section. HC COMPLETE BLD COUNT W/AUTO Routine 02/25/2018 Results for DIFF 5:50 AM CDT this procedure are in the results section. FK506 LEVEL Routine 02/25/2018 Results for 5:50 AM CDT this procedure are in the results section. ECG 12-LEAD STAT 02/25/2018 Results for 3:50 AM CDT this procedure are in the results section. XR CHEST 1 VW PORTABLE STAT 02/25/2018 Results for 2:35 AM CDT this procedure are in the results section. RESPIRATORY PATHOGEN PANEL Routine 02/25/2018 Results for 2:03 AM CDT this procedure are in the results section. ESTIMATED GFR STAT 02/25/2018 Results for 2:02 AM CDT this procedure are in the results section. MAGNESIUM LEVEL STAT 02/25/2018 Results for 2:02 AM CDT this procedure are in the results section. COMPREHENSIVE METABOLIC PANEL STAT 02/25/2018 Results for 2:02 AM CDT this procedure are in the results section. PARTIAL THROMBOPLASTIN TIME STAT 02/25/2018 Results for (PTT) 2:02 AM CDT this procedure are in the results section. PROTHROMBIN TIME WITH INR STAT 02/25/2018 Results for 2:02 AM CDT this procedure are in the results section. HC COMPLETE BLD COUNT W/AUTO STAT 02/25/2018 Results for DIFF 2:02 AM CDT this procedure are in the results section. URINALYSIS SCREEN AND STAT 02/25/2018 Results for MICROSCOPY, WITH REFLEX TO 2:02 AM CDT this CULTURE procedure are in the results section. BLOOD CULTURE, AEROBIC & Routine 02/25/2018 Results for ANAEROBIC 2:02 AM CDT this procedure are in the results section. BLOOD CULTURE, AEROBIC & Routine 02/25/2018 Results for ANAEROBIC 2:01 AM CDT this procedure are in the results section. URINE CULTURE STAT 02/25/2018 Results for 2:00 AM CDT this procedure are in the results section. POC GLUCOSE Routine 02/24/2018 Results for 11:55 PM CDT this procedure are in the results section. ECG 12-LEAD Routine 02/01/2018 Heart replaced by 9:24 AM CDT transplant Infection custodial current use 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 Therapeutic drug monitoring Metabolic syndrome CRF (chronic renal failure), stage 3 (moderate) Cytomegalovirus infection, unspecified cytomegaloviral infection type Essential hypertension Hyperlipidemia associated with type 2 diabetes mellitus ESTIMATED GFR STAT 01/28/2018 Results for 10:50 AM CDT this procedure are in the results section. URINALYSIS, AUTOMATED WITH STAT 01/28/2018 Heart replaced by Results for MICROSCOPY 10:50 AM CDT transplant this Infection procedure custodial current use are in the of immunosuppressive results drug section. 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 Therapeutic drug monitoring Metabolic syndrome CRF (chronic renal failure), stage 3 (moderate) Cytomegalovirus infection, unspecified cytomegaloviral infection type Essential hypertension Hyperlipidemia associated with type 2 diabetes mellitus TROPONIN STAT 01/28/2018 Heart replaced by Results for 10:50 AM CDT transplant this Infection procedure custodial current use are in the of immunosuppressive results drug section. Therapeutic drug monitoring Metabolic syndrome CRF (chronic renal failure), stage 3 (moderate) Cytomegalovirus infection, unspecified cytomegaloviral infection type Essential hypertension Hyperlipidemia associated with type 2 diabetes mellitus B NATRIURETIC PEPTIDE STAT 01/28/2018 Heart replaced by Results for 10:50 AM CDT transplant this Infection procedure custodial current use are in the of immunosuppressive results drug section. 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 Therapeutic drug monitoring Metabolic syndrome CRF (chronic renal failure), stage 3 (moderate) Cytomegalovirus infection, unspecified cytomegaloviral infection type Essential hypertension Hyperlipidemia associated with type 2 diabetes mellitus CYTOMEGALOVIRUS BY PCR STAT 01/28/2018 Heart replaced by Results for 10:50 AM CDT transplant this Infection procedure custodial current use are in the of immunosuppressive results drug section. Therapeutic drug monitoring Metabolic syndrome CRF (chronic renal failure), stage 3 (moderate) Cytomegalovirus infection, unspecified cytomegaloviral infection type Essential hypertension Hyperlipidemia associated with type 2 diabetes mellitus HC COMPLETE BLD COUNT W/AUTO STAT 01/28/2018 Heart replaced by Results for DIFF 10:50 AM CDT transplant this Infection procedure custodial current use are in the of immunosuppressive results drug section. 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 Therapeutic drug monitoring Metabolic syndrome CRF (chronic renal failure), stage 3 (moderate) Cytomegalovirus infection, unspecified cytomegaloviral infection type Essential hypertension Hyperlipidemia associated with type 2 diabetes mellitus POC GLUCOSE Routine 01/22/2018 Results for 8:24 AM CDT this procedure are in the results section. HC COMPLETE BLD COUNT W/AUTO Routine 01/22/2018 Results for DIFF 5:48 AM CDT this procedure are in the results section. FK506 LEVEL Routine 01/22/2018 Results for 5:48 AM CDT this procedure are in the results section. ESTIMATED GFR Routine 01/22/2018 Results for 4:00 AM CDT this procedure are in the results section. BASIC METABOLIC PANEL Routine 01/22/2018 Results for 4:00 AM CDT this procedure are in the results section. POC GLUCOSE Routine 01/21/2018 Results for 9:40 PM CDT this procedure are in the results section. POC GLUCOSE Routine 01/21/2018 Results for 5:15 PM CDT this procedure are in the results section. POC GLUCOSE Routine 01/21/2018 Results for 12:28 PM CDT this procedure are in the results section. POC GLUCOSE Routine 01/21/2018 Results for 7:18 AM CDT this procedure are in the results section. ESTIMATED GFR Routine 01/21/2018 Results for 5:58 AM CDT this procedure are in the results section. BASIC METABOLIC PANEL Routine 01/21/2018 Results for 5:58 AM CDT this procedure are in the results section. HC COMPLETE BLD COUNT W/AUTO Routine 01/21/2018 Results for DIFF 5:58 AM CDT this procedure are in the results section. FK506 LEVEL Routine 01/21/2018 Results for 5:58 AM CDT this procedure are in the results section. POC GLUCOSE Routine 01/20/2018 Results for 10:59 PM CDT this procedure are in the results section. POC GLUCOSE Routine 01/20/2018 Results for 5:35 PM CDT this procedure are in the results section. GASTROINTESTINAL PANEL Routine 01/20/2018 Results for 3:50 PM CDT this procedure are in the results section. POC GLUCOSE Routine 01/20/2018 Results for 12:19 PM CDT this procedure are in the results section. POC GLUCOSE Routine 01/20/2018 Results for 8:37 AM CDT this procedure are in the results section. ESTIMATED GFR Routine 01/20/2018 Results for 6:00 AM CDT this procedure are in the results section. FK506 LEVEL Routine 01/20/2018 Results for 6:00 AM CDT this procedure are in the results section. PHOSPHORUS LEVEL Routine 01/20/2018 Results for 6:00 AM CDT this procedure are in the results section. MAGNESIUM LEVEL Routine 01/20/2018 Results for 6:00 AM CDT this procedure are in the results section. BASIC METABOLIC PANEL Routine 01/20/2018 Results for 6:00 AM CDT this procedure are in the results section. HC COMPLETE BLD COUNT W/AUTO Routine 01/20/2018 Results for DIFF 6:00 AM CDT this procedure are in the results section. POC GLUCOSE Routine 01/19/2018 Results for 10:32 PM CDT this procedure are in the results section. GRAM STAIN Routine 01/19/2018 Results for 5:40 PM CDT this procedure are in the results section. AEROBIC CULTURE Routine 01/19/2018 Results for 5:40 PM CDT this procedure are in the results section. POC GLUCOSE Routine 01/19/2018 Results for 5:32 PM CDT this procedure are in the results section. POC GLUCOSE Routine 01/19/2018 Results for 1:03 PM CDT this procedure are in the results section. POC GLUCOSE Routine 01/19/2018 Results for 7:25 AM CDT this procedure are in the results section. ESTIMATED GFR Routine 01/19/2018 Results for 5:00 AM CDT this procedure are in the results section. FK506 LEVEL Routine 01/19/2018 Results for 5:00 AM CDT this procedure are in the results section. BASIC METABOLIC PANEL Routine 01/19/2018 Results for 5:00 AM CDT this procedure are in the results section. HC COMPLETE BLD COUNT W/AUTO Routine 01/19/2018 Results for DIFF 5:00 AM CDT this procedure are in the results section. POC GLUCOSE Routine 01/18/2018 Results for 10:52 PM CDT this procedure are in the results section. POC GLUCOSE Routine 01/18/2018 Results for 7:28 PM CDT this procedure are in the results section. POC GLUCOSE Routine 01/18/2018 Results for 1:05 PM CDT this procedure are in the results section. ECHOCARDIOGRAM 2D COMPLETE W STAT 01/18/2018 Results for MMODE SPECTRAL COLOR DOPPLER 12:36 PM CDT this ([id number]) procedure are in the results section. US DUPLEX VENOUS UPPER STAT 01/18/2018 Results for EXTREMITY LEFT 12:00 PM CDT this procedure are in the results section. VANCOMYCIN LEVEL, RANDOM STAT 01/18/2018 Results for 10:15 AM CDT this procedure are in the results section. IMMUNOGLOBULIN G STAT 01/18/2018 Results for 10:15 AM CDT this procedure are in the results section. CYTOMEGALOVIRUS BY PCR Routine 01/18/2018 Results for 10:15 AM CDT this procedure are in the results section. ESTIMATED GFR Routine 01/18/2018 Results for 10:15 AM CDT this procedure are in the results section. BASIC METABOLIC PANEL Routine 01/18/2018 Results for 10:15 AM CDT this procedure are in the results section. CBC HEMOGRAM Routine 01/18/2018 Results for 10:15 AM CDT this procedure are in the results section. RESPIRATORY PATHOGEN PANEL Routine 01/18/2018 Results for 10:15 AM CDT this procedure are in the results section. CT CHEST WO CONTRAST STAT 01/18/2018 Results for 9:47 AM CDT this procedure are in the results section. CT UPPER EXTREMITY WO LEFT STAT 01/18/2018 Results for 9:47 AM CDT this procedure are in the results section. POC GLUCOSE Routine 01/18/2018 Results for 8:59 AM CDT this procedure are in the results section. FK506 LEVEL Routine 01/18/2018 Results for 5:30 AM CDT this procedure are in the results section. LACTIC ACID LEVEL Routine 01/18/2018 Results for 2:58 AM CDT this procedure are in the results section. ECG 12-LEAD Routine 01/18/2018 Results for 2:52 AM CDT this procedure are in the results section. POC GLUCOSE Routine 01/18/2018 Results for 1:15 AM CDT this procedure are in the results section. BLOOD CULTURE, AEROBIC & Routine 01/17/2018 Results for ANAEROBIC 11:13 PM CDT this procedure are in the results section. HEMOGLOBIN A1C Routine 01/17/2018 Results for 11:00 PM CDT this procedure are in the results section. ESTIMATED GFR Routine 01/17/2018 Results for 11:00 PM CDT this procedure are in the results section. LACTIC ACID LEVEL Routine 01/17/2018 Results for 11:00 PM CDT this procedure are in the results section. MAGNESIUM LEVEL Routine 01/17/2018 Results for 11:00 PM CDT this procedure are in the results section. COMPREHENSIVE METABOLIC PANEL Routine 01/17/2018 Results for 11:00 PM CDT this procedure are in the results section. PROTHROMBIN TIME WITH INR Routine 01/17/2018 Results for 11:00 PM CDT this procedure are in the results section. HC COMPLETE BLD COUNT W/AUTO Routine 01/17/2018 Results for DIFF 11:00 PM CDT this procedure are in the results section. BLOOD CULTURE, AEROBIC & Routine 01/17/2018 Results for ANAEROBIC 11:00 PM CDT this procedure are in the results section. POC GLUCOSE Routine 01/17/2018 Results for 8:49 PM CDT this procedure are in the results section. ECG 12-LEAD Routine 11/09/2017 Heart replaced by 11:44 AM [employer] transplant Complication of transplanted organ Essential hypertension Long-term use of immunosuppressant medication Metabolic syndrome Hyperlipidemia associated with type 2 diabetes mellitus Chronic fatigue Infection ECHOCARDIOGRAM 2D COMPLETE W Routine 11/08/2017 Heart replaced by Results for MMODE SPECTRAL COLOR DOPPLER 3:44 PM [employer]AND[employer] PEDDLER transplant this ([id number]) procedure are in the results section. NM MYOCARDIAL PERFUSION STRESS Routine 11/08/2017 Heart replaced by Results for REST 1 DAY 12:19 PM [employer] transplant this Complication of procedure transplanted organ are in the Cardiac allograft results vasculopathy section. CV STRESS TEST NUCLEAR CARDIO Routine 11/08/2017 Heart replaced by Results for 12:19 PM [employer] transplant this Complication of procedure transplanted organ are in the Cardiac allograft results vasculopathy section. XR CHEST 2 VW Routine 11/08/2017 Heart replaced by Results for 9:58 AM [employer] transplant this Complication of procedure transplanted organ are in the Essential results hypertension section. Long-term use of immunosuppressant medication Metabolic syndrome Hyperlipidemia associated with type 2 diabetes mellitus Chronic fatigue Infection Bone loss BONE DENSITY PERIPHERAL Routine 11/08/2017 Heart replaced by Results for 9:58 AM [employer] transplant this procedure are in the results section. BONE DENSITY Routine 11/08/2017 Heart replaced by Results for 9:56 AM [employer] transplant this Complication of procedure transplanted organ are in the Essential results hypertension section. Long-term use of immunosuppressant medication Metabolic syndrome Hyperlipidemia associated with type 2 diabetes mellitus Chronic fatigue Infection Bone loss US ABDOMEN COMPLETE Routine 11/08/2017 Heart replaced by Results for 9:00 AM [employer] transplant this Complication of procedure transplanted organ are in the Essential results hypertension section. Long-term use of immunosuppressant medication Metabolic syndrome Hyperlipidemia associated with type 2 diabetes mellitus Chronic fatigue Infection DONOR SPECIFIC ANTIBODY Routine 11/08/2017 Results for 7:07 AM [employer] this procedure are in the results section. ESTIMATED GFR Routine 11/08/2017 Results for 7:07 AM [employer] this procedure are in the results section. HEPATITIS ACUTE PANEL Routine 11/08/2017 Heart replaced by Results for 7:07 AM [employer] transplant this Complication of procedure transplanted organ are in the Chronic fatigue results Infection section. Cytomegalovirus infection, unspecified cytomegaloviral infection type PROTHROMBIN TIME WITH INR Routine 11/08/2017 Heart replaced by Results for 7:07 AM [employer] transplant this Complication of procedure transplanted organ are in the Essential results hypertension section. Long-term use of immunosuppressant medication Metabolic syndrome Hyperlipidemia associated with type 2 diabetes mellitus Chronic fatigue Infection MICROALBUMIN, URINE, RANDOM Routine 11/08/2017 Heart replaced by Results for 7:07 AM [employer] transplant this Complication of procedure transplanted organ are in the Essential results hypertension section. Long-term use of immunosuppressant medication Metabolic syndrome Hyperlipidemia associated with type 2 diabetes mellitus Chronic fatigue Infection CYTOMEGALOVIRUS BY PCR Routine 11/08/2017 Heart replaced by Results for 7:07 AM [employer] transplant this Complication of procedure transplanted organ are in the Essential results hypertension section. Long-term use of immunosuppressant medication Metabolic syndrome Hyperlipidemia associated with type 2 diabetes mellitus Chronic fatigue Infection Cytomegalovirus infection, unspecified cytomegaloviral infection type HIV 1, 2 ANTIBODY Routine 11/08/2017 Heart replaced by Results for 7:07 AM [employer] transplant this Complication of procedure transplanted organ are in the Essential results hypertension section. Long-term use of immunosuppressant medication Metabolic syndrome Hyperlipidemia associated with type 2 diabetes mellitus Chronic fatigue Infection Cytomegalovirus infection, unspecified cytomegaloviral infection type TESTOSTERONE Routine 11/08/2017 Heart replaced by Results for 7:07 AM [employer] transplant this Complication of procedure transplanted organ are in the Essential results hypertension section. Long-term use of immunosuppressant medication Metabolic syndrome Hyperlipidemia associated with type 2 diabetes mellitus Chronic fatigue Infection PROSTATE SPECIFIC ANTIGEN Routine 11/08/2017 Heart replaced by Results for 7:07 AM [employer] transplant this Complication of procedure transplanted organ are in the Essential results hypertension section. Long-term use of immunosuppressant medication Metabolic syndrome Hyperlipidemia associated with type 2 diabetes mellitus Chronic fatigue Infection Prostate cancer screening VITAMIN D 25 HYDROXY LEVEL Routine 11/08/2017 Heart replaced by Results for 7:07 AM [employer] transplant this Complication of procedure transplanted organ are in the Essential results hypertension section. Long-term use of immunosuppressant medication Metabolic syndrome Hyperlipidemia associated with type 2 diabetes mellitus Chronic fatigue Infection Bone loss TROPONIN Routine 11/08/2017 Heart replaced by Results for 7:07 AM [employer] transplant this Complication of procedure transplanted organ are in the Essential results hypertension section. Long-term use of immunosuppressant medication Metabolic syndrome Hyperlipidemia associated with type 2 diabetes mellitus Chronic fatigue Infection FK506 LEVEL Routine 11/08/2017 Heart replaced by Results for 7:07 AM [employer] transplant this Complication of procedure transplanted organ are in the Essential results hypertension section. Long-term use of immunosuppressant medication Metabolic syndrome Hyperlipidemia associated with type 2 diabetes mellitus Chronic fatigue Infection T3, FREE Routine 11/08/2017 Heart replaced by Results for 7:07 AM [employer] transplant this Complication of procedure transplanted organ are in the Essential results hypertension section. Long-term use of immunosuppressant medication Metabolic syndrome Hyperlipidemia associated with type 2 diabetes mellitus Chronic fatigue Infection B NATRIURETIC PEPTIDE Routine 11/08/2017 Heart replaced by Results for 7:07 AM [employer] transplant this Complication of procedure transplanted organ are in the Essential results hypertension section. Long-term use of immunosuppressant medication Metabolic syndrome Hyperlipidemia associated with type 2 diabetes mellitus Chronic fatigue Infection URINALYSIS SCREEN AND Routine 11/08/2017 Heart replaced by Results for MICROSCOPY, WITH REFLEX TO 7:07 AM [employer] transplant this CULTURE Complication of procedure transplanted organ are in the Essential results hypertension section. Long-term use of immunosuppressant medication Metabolic syndrome Hyperlipidemia associated with type 2 diabetes mellitus Chronic fatigue Infection LDH Routine 11/08/2017 Heart replaced by Results for 7:07 AM [employer] transplant this Complication of procedure transplanted organ are in the Essential results hypertension section. Long-term use of immunosuppressant medication Metabolic syndrome Hyperlipidemia associated with type 2 diabetes mellitus Chronic fatigue Infection URIC ACID LEVEL Routine 11/08/2017 Heart replaced by Results for 7:07 AM [employer] transplant this Complication of procedure transplanted organ are in the Essential results hypertension section. Long-term use of immunosuppressant medication Metabolic syndrome Hyperlipidemia associated with type 2 diabetes mellitus Chronic fatigue Infection Bone loss THYROID STIMULATING HORMONE Routine 11/08/2017 Heart replaced by Results for 7:07 AM [employer] transplant this Complication of procedure transplanted organ are in the Essential results hypertension section. Long-term use of immunosuppressant medication Metabolic syndrome Hyperlipidemia associated with type 2 diabetes mellitus Chronic fatigue Infection Bone loss T4 Routine 11/08/2017 Heart replaced by Results for 7:07 AM [employer] transplant this Complication of procedure transplanted organ are in the Essential results hypertension section. Long-term use of immunosuppressant medication Metabolic syndrome Hyperlipidemia associated with type 2 diabetes mellitus Chronic fatigue Infection T3 Routine 11/08/2017 Heart replaced by Results for 7:07 AM [employer] transplant this Complication of procedure transplanted organ are in the Essential results hypertension section. Long-term use of immunosuppressant medication Metabolic syndrome Hyperlipidemia associated with type 2 diabetes mellitus Chronic fatigue Infection PARATHYROID HORMONE Routine 11/08/2017 Heart replaced by Results for 7:07 AM [employer] transplant this Complication of procedure transplanted organ are in the Essential results hypertension section. Long-term use of immunosuppressant medication Metabolic syndrome Hyperlipidemia associated with type 2 diabetes mellitus Chronic fatigue Infection Bone loss IONIZED CALCIUM Routine 11/08/2017 Heart replaced by Results for 7:07 AM [employer] transplant this Complication of procedure transplanted organ are in the Essential results hypertension section. Long-term use of immunosuppressant medication Metabolic syndrome Hyperlipidemia associated with type 2 diabetes mellitus Chronic fatigue Infection Bone loss HEMOGLOBIN A1C Routine 11/08/2017 Heart replaced by Results for 7:07 AM [employer] transplant this Complication of procedure transplanted organ are in the Essential results hypertension section. Long-term use of immunosuppressant medication Metabolic syndrome Hyperlipidemia associated with type 2 diabetes mellitus Chronic fatigue Infection LIPID PANEL Routine 11/08/2017 Heart replaced by Results for 7:07 AM [employer] transplant this Complication of procedure transplanted organ are in the Essential results hypertension section. Long-term use of immunosuppressant medication Metabolic syndrome Hyperlipidemia associated with type 2 diabetes mellitus Chronic fatigue Infection HEPATIC FUNCTION PANEL Routine 11/08/2017 Heart replaced by Results for 7:07 AM [employer] transplant this Complication of procedure transplanted organ are in the Essential results hypertension section. Long-term use of immunosuppressant medication Metabolic syndrome Hyperlipidemia associated with type 2 diabetes mellitus Chronic fatigue Infection MAGNESIUM LEVEL Routine 11/08/2017 Heart replaced by Results for 7:07 AM [employer] transplant this Complication of procedure transplanted organ are in the Essential results hypertension section. Long-term use of immunosuppressant medication Metabolic syndrome Hyperlipidemia associated with type 2 diabetes mellitus Chronic fatigue Infection Bone loss PHOSPHORUS LEVEL Routine 11/08/2017 Heart replaced by Results for 7:07 AM [employer] transplant this Complication of procedure transplanted organ are in the Essential results hypertension section. Long-term use of immunosuppressant medication Metabolic syndrome Hyperlipidemia associated with type 2 diabetes mellitus Chronic fatigue Infection Bone loss HC COMPLETE BLD COUNT W/AUTO Routine 11/08/2017 Heart replaced by Results for DIFF 7:07 AM [employer] transplant this Complication of procedure transplanted organ are in the Essential results hypertension section. Long-term use of immunosuppressant medication Metabolic syndrome Hyperlipidemia associated with type 2 diabetes mellitus Chronic fatigue Infection Bone loss BASIC METABOLIC PANEL Routine 11/08/2017 Heart replaced by Results for 7:07 AM [employer] transplant this Complication of procedure transplanted organ are in the Essential results hypertension section. Long-term use of immunosuppressant medication Metabolic syndrome Hyperlipidemia associated with type 2 diabetes mellitus Chronic fatigue Infection Bone loss URINE CULTURE Routine 11/08/2017 Results for 7:07 AM [employer] this procedure are in the results section. SURGICAL PATHOLOGY REQUEST Routine 08/23/2017 Results for 10:50 AM [employer] this procedure are in the results section. ESOPHAGOGASTRODUODENOSCOPY 08/23/2017 Chronic GERD (EGD) 8:00 AM [employer] POC GLUCOSE Routine 08/23/2017 Results for 7:49 AM [employer] this procedure are in the results section. ECG ED PRELIMINARY Routine 08/19/2017 Results for INTERPRETATION 1:53 PM [employer] this procedure are in the results section. LIPASE LEVEL STAT 08/05/2017 Results for 2:00 PM [employer] this procedure are in the results section. AMYLASE LEVEL STAT 08/05/2017 Results for 2:00 PM [employer] this procedure are in the results section. ESTIMATED GFR STAT 08/05/2017 Results for 2:00 PM [employer] this procedure are in the results section. HC COMPLETE BLD COUNT W/AUTO STAT 08/05/2017 Results for DIFF 2:00 PM [employer] this procedure are in the results section. TROPONIN STAT 08/05/2017 Results for 2:00 PM [employer] this procedure are in the results section. COMPREHENSIVE METABOLIC PANEL STAT 08/05/2017 Results for 2:00 PM [employer] this procedure are in the results section. XR CHEST 2 VW STAT 08/05/2017 Results for 12:39 PM [employer] this procedure are in the results section. ECG 12-LEAD STAT 08/05/2017 Results for 11:15 AM [employer] this procedure are in the results section. CT ABDOMEN WO CONTRAST Routine 07/30/2017 Pain of upper abdomen Results for 4:45 PM CDT this procedure are in the results section. POC GLYCOSYLATED HEMOGLOBIN Routine 07/20/2017 Uncontrolled type 2 Results for (HGB A1C) 9:21 AM CDT diabetes mellitus this without complication, procedure with long-term are in the current use of results insulin section. POC GLUCOSE Routine 07/20/2017 Uncontrolled type 2 Results for 9:09 AM CDT diabetes mellitus this without complication, procedure with long-term are in the current use of results insulin section. after 04/06/2017 Results Estimated GFR (03/08/2018 9:14 AM)Only the most recent of14 resultswithin the time period is included. GFR Non Af Amer 31 (A) mL/min/1.73 m2 [facility] OF PATHOLOGY AND [facility] MEDICINE GFR Af Amer 38 (A) mL/min/1.73 m2 [facility] DEPARTMENT OF Comment: PATHOLOGY AND GENOMIC Chronic kidney disease: <60 mL/min/1.73m2 MEDICINE Kidney failure: <15 mL/min/1.73m2 The estimated GFR is calculated from the IDMS-traceable Modification of Diet in Renal Disease Equation. The accuracy of the calculation is poor when the creatinine is normal. Calculated values >90 mL/min/1.73m2 are not reported. This equation has not been validated in children (<18 years), women, the elderly (>70 years), or ethnic groups other than Caucasians and Americans. Specimen Plasma specimen Performing Organization Address City/State/Zipcode Phone Number [facility]PART[facility] OF PATHOLOGY AND [address] [place] [address] [email or web address] FK506 level (03/08/2018 9:14 AM)Only the most recent of11 resultswithin the time period is included. FK506 level 7.2 ng/mL [facility] OF PATHOLOGY Comment: AND [facility] MEDICINE Therapeutic range 5-20 ng/mL for 12 hour trough. The range varies depending on the organ transplanted, time after transplantation and co-administered immunosuppressant therapies. Please use clinical judgment to interpret test result. Test performed using [employer] chemiluminescent microparticle immunoassay for Tacrolimus on the [employer] System. Specimen Blood Performing Organization Address City/[facility]/Zipcode Phone Number [facility]PART[facility] OF PATHOLOGY AND [address] [place] [address] Troponin (03/08/2018 9:14 AM)Only the most recent of4 resultswithin the time period is included. Troponin <0.30 0.00 - 0.30 ng/mL [facility] OF PATHOLOGY Comment: AND GENOMIC MEDICINE 0.30 - 1.49 ng/mlMay indicate increased risk of acute coronary syndrome. >=1.5 ng/mlConsistent with acute myocardial infarction. The diagnostic value of a single normal or non-diagnostic result is questionable.Serial samples at 2-6 hour intervals are required to rule out acute myocardial injury. Specimen Plasma specimen Performing Organization Address [facility] Phone Number [facility] DEPARTMENT OF PATHOLOGY AND [address] [place] [address] Urinalysis, automated with microscopy (03/08/2018 9:14 AM)Only the most recent of2 resultswithin the time period is included. Color, UA Straw [facility] DEPARTMENT OF PATHOLOGY AND GENOMIC MEDICINE Appearance, UA Clear [facility] DEPARTMENT OF PATHOLOGY AND GENOMIC MEDICINE Specific gravity, UA 1.010 1.001 - 1.035 [facility] DEPARTMENT OF PATHOLOGY AND GENOMIC MEDICINE pH, UA 6.0 5.0 - 8.5 [facility] DEPARTMENT OF PATHOLOGY AND GENOMIC MEDICINE Protein, UA 1+ (A) Negative [facility] DEPARTMENT OF PATHOLOGY AND GENOMIC MEDICINE Glucose, UA Negative Negative [facility] DEPARTMENT OF PATHOLOGY AND GENOMIC MEDICINE Ketones, UA Negative Negative [facility] DEPARTMENT OF PATHOLOGY AND GENOMIC MEDICINE Bilirubin, UA Negative Negative [facility] DEPARTMENT OF PATHOLOGY AND GENOMIC MEDICINE Blood, UA Negative Negative [facility] DEPARTMENT OF PATHOLOGY AND GENOMIC MEDICINE Nitrite, UA Negative Negative [facility] DEPARTMENT OF PATHOLOGY AND GENOMIC MEDICINE Urobilinogen, UA <2.0 <2.0 [facility] DEPARTMENT OF PATHOLOGY AND GENOMIC MEDICINE Leukocyte esterase, UA Negative Negative [facility] DEPARTMENT OF PATHOLOGY AND GENOMIC MEDICINE Epithelial cells, UA <1 /HPF [facility] DEPARTMENT OF PATHOLOGY AND GENOMIC MEDICINE WBC, UA 1 0 - 1 /HPF [facility] DEPARTMENT OF PATHOLOGY AND GENOMIC MEDICINE RBC, UA <1 0 - 5 /HPF [facility] DEPARTMENT OF PATHOLOGY AND GENOMIC MEDICINE Bacteria, UA Few None seen [facility] DEPARTMENT OF PATHOLOGY AND GENOMIC MEDICINE Hyaline casts, UA 5 /LPF [facility] DEPARTMENT OF PATHOLOGY AND GENOMIC MEDICINE Yeast, UA None seen [facility] DEPARTMENT OF PATHOLOGY AND GENOMIC MEDICINE Yeast with pseudohyphae, UA None seen [facility] DEPARTMENT OF PATHOLOGY AND GENOMIC MEDICINE Specimen Urine Performing Organization Address City/State/[facility] Phone Number [facility] DEPARTMENT OF PATHOLOGY AND [address] [place] [address] GENOMIC MEDICINE CBC with platelet and differential (03/08/2018 9:14 AM)Only the most recent of13 resultswithin the time period is included. WBC 7.36 4.50 - 11.00 k/uL [facility] DEPARTMENT OF PATHOLOGY AND GENOMIC MEDICINE RBC 4.15 (L) 4.40 - 6.00 m/uL [facility] DEPARTMENT OF PATHOLOGY AND GENOMIC MEDICINE HGB 13.3 (L) 14.0 - 18.0 g/dL [facility] DEPARTMENT OF PATHOLOGY AND GENOMIC MEDICINE HCT 41.0 41.0 - 51.0 % [facility] DEPARTMENT OF PATHOLOGY AND GENOMIC MEDICINE MCV 98.8 82.0 - 100.0 fL [facility] DEPARTMENT OF PATHOLOGY AND GENOMIC MEDICINE MCH 32.0 27.0 - 34.0 pg [facility] DEPARTMENT OF PATHOLOGY AND GENOMIC MEDICINE MCHC 32.4 31.0 - 37.0 g/dL [facility] DEPARTMENT OF PATHOLOGY AND GENOMIC MEDICINE RDW - SD 50.3 37.0 - 55.0 fL [facility] DEPARTMENT OF PATHOLOGY AND GENOMIC MEDICINE MPV 10.6 8.8 - 13.2 fL [facility] DEPARTMENT OF PATHOLOGY AND GENOMIC MEDICINE Platelet count 224 150 - 400 k/uL [facility] DEPARTMENT OF PATHOLOGY AND GENOMIC MEDICINE Nucleated RBC 0.00 /100 WBC [facility] DEPARTMENT OF PATHOLOGY AND GENOMIC MEDICINE Neutrophils 66.8 39.0 - 69.0 % [facility] DEPARTMENT OF PATHOLOGY AND GENOMIC MEDICINE Lymphocytes 21.5 (L) 25.0 - 45.0 % [facility] DEPARTMENT OF PATHOLOGY AND GENOMIC MEDICINE Monocytes 10.3 (H) 0.0 - 10.0 % [facility] DEPARTMENT OF PATHOLOGY AND GENOMIC MEDICINE Eosinophils 0.5 0.0 - 5.0 % [facility] DEPARTMENT OF PATHOLOGY AND GENOMIC MEDICINE Basophils 0.5 0.0 - 1.0 % [facility] DEPARTMENT OF PATHOLOGY AND GENOMIC MEDICINE Immature granulocytes 0.4Comment: 0.0 - 1.0 % [facility] DEPARTMENT OF "Immature PATHOLOGY AND GENOMIC granulocytes" MEDICINE (promyelocytes, myelocytes, metamyelocytes) Specimen Blood Performing Organization Address City/State/[facility] Phone Number [facility] DEPARTMENT OF PATHOLOGY AND [address] [place] [address] B natriuretic peptide (03/08/2018 9:14 AM)Only the most recent of3 resultswithin the time period is included. BNP 183 (H) 0 - 100 pg/mL [facility] DEPARTMENT OF PATHOLOGY AND GENOMIC MEDICINE Specimen Blood Performing Organization Address [facility] Phone Number [facility] DEPARTMENT OF PATHOLOGY AND [address] [place] [address] Magnesium level (03/08/2018 9:14 AM)Only the most recent of7 resultswithin the time period is included. Magnesium 2.1 1.6 - 2.4 mg/dL [facility] DEPARTMENT OF PATHOLOGY AND GENOMIC MEDICINE Specimen Plasma specimen Performing Organization Address [facility] Phone Number [facility] DEPARTMENT OF PATHOLOGY AND [address] [place] [address] LDH (03/08/2018 9:14 AM)Only the most recent of3 resultswithin the time period is included. LDH 219 87 - 225 U/L [facility] DEPARTMENT OF PATHOLOGY AND GENOMIC MEDICINE Specimen Plasma specimen Performing Organization Address [facility] Phone Number [facility] DEPARTMENT OF PATHOLOGY AND [address] [place] [address] Comprehensive metabolic panel (03/08/2018 9:14 AM)Only the most recent of5 resultswithin the time period is included. Sodium 144 135 - 148 mEq/L [facility] DEPARTMENT OF PATHOLOGY AND GENOMIC MEDICINE Potassium 3.8 3.5 - 5.0 mEq/L [facility] DEPARTMENT OF PATHOLOGY AND GENOMIC MEDICINE Chloride 97 (L) 98 - 112 mEq/L [facility] DEPARTMENT OF PATHOLOGY AND GENOMIC MEDICINE CO2 32 (H) 24 - 31 mEq/L [facility] DEPARTMENT OF PATHOLOGY AND GENOMIC MEDICINE Anion gap 15@ANIO 7 - 15 mEq/L [facility] DEPARTMENT OF PATHOLOGY AND GENOMIC MEDICINE BUN 41 (H) 8 - 23 mg/dL [facility] DEPARTMENT OF PATHOLOGY AND GENOMIC MEDICINE Creatinine 2.1 (H) 0.7 - 1.2 mg/dL [facility] DEPARTMENT OF PATHOLOGY AND GENOMIC MEDICINE Glucose 119 (H) 65 - 99 mg/dL [facility] DEPARTMENT OF PATHOLOGY AND GENOMIC MEDICINE Calcium 9.8 8.8 - 10.2 mg/dL [facility] DEPARTMENT OF PATHOLOGY AND GENOMIC MEDICINE Protein 7.7 6.3 - 8.3 g/dL [facility] DEPARTMENT OF Comment: PATHOLOGY AND GENOMIC 4.6-7.0 g/dL MEDICINE 1 week 4.4-7.6 g/dL 7 months-1year5.1-7.3 g/dL 1-2 years5.6-7.5 g/dL >3 years6.0-8.0 g/dL 18-150 6.3-8.3 g/dL Albumin 3.7 3.5 - 5.0 g/dL [facility] DEPARTMENT OF PATHOLOGY AND GENOMIC MEDICINE A/G ratio 0.9 0.7 - 3.8 [facility] DEPARTMENT OF PATHOLOGY AND GENOMIC MEDICINE Alkaline phosphatase 78 40 - 129 U/L [facility] DEPARTMENT OF PATHOLOGY AND GENOMIC MEDICINE AST 19 10 - 50 U/L [facility] DEPARTMENT OF PATHOLOGY AND GENOMIC MEDICINE ALT 24 5 - 50 U/L [facility] DEPARTMENT OF PATHOLOGY AND GENOMIC MEDICINE Total bilirubin 0.5 0.0 - 1.2 mg/dL [facility] DEPARTMENT OF PATHOLOGY AND GENOMIC MEDICINE Specimen Plasma specimen Performing Organization Address City/[facility] Phone Number [facility] DEPARTMENT OF PATHOLOGY [address] [address] [facility] POC glucose (02/27/2018 7:18 AM)Only the most recent of31 resultswithin the time period is included. POC glucose 161 (H) 65 - 99 mg/dL [facility] DEPARTMENT OF PATHOLOGY AND Comment: [facility] Notified RN Meter ID: [id number] Building Operator: Elder Alas Performing Organization Address City/[facility] Phone Number [facility] DEPARTMENT OF PATHOLOGY AND [address] [place], [place] [phone] [facility] Basic metabolic panel (02/27/2018 4:50 AM)Only the most recent of9 resultswithin the time period is included. Sodium 136 135 - 148 mEq/L [facility] DEPARTMENT OF PATHOLOGY AND GENOMIC MEDICINE Potassium 4.2 3.5 - 5.0 mEq/L [facility] DEPARTMENT OF PATHOLOGY AND GENOMIC MEDICINE Chloride 99 98 - 112 mEq/L [facility] DEPARTMENT OF PATHOLOGY AND GENOMIC MEDICINE CO2 25 24 - 31 mEq/L [facility] DEPARTMENT OF PATHOLOGY AND GENOMIC MEDICINE Anion gap 12@ANIO 7 - 15 mEq/L [facility] DEPARTMENT OF PATHOLOGY AND GENOMIC MEDICINE BUN 17 8 - 23 mg/dL [facility] DEPARTMENT OF PATHOLOGY AND GENOMIC MEDICINE Creatinine 1.2 0.7 - 1.2 mg/dL [facility] DEPARTMENT OF PATHOLOGY AND GENOMIC MEDICINE Glucose 172 (H) 65 - 99 mg/dL [facility] DEPARTMENT OF PATHOLOGY AND GENOMIC MEDICINE Calcium 9.0 8.8 - 10.2 mg/dL [facility] DEPARTMENT OF PATHOLOGY AND GENOMIC MEDICINE Specimen Plasma specimen Performing Organization Address City/[facility] Phone Number [facility] DEPARTMENT OF PATHOLOGY AND [address] [place] [address] [facility] MEDICINE Salmonella/shigella culture (02/26/2018 7:52 AM) Salmonella/shigella Salmonella give [facility] DEPARTMENT OF culture isolate Serotyping performed by the [facility], [facility] [place] [address] MEDICINE This organism has been reported to the [facility] as required, [address] [place] [address]. The performance characteristics of this assay on this isolate were validated by the Microbiology Laboratory at [facility].This source has not been approved by the U.S. Food and Drug Administration.The results are not intended to be used as the sole means for clinical diagnosis or patient management.The Microbiology Laboratory is authorized under the clinical Laboratory Improvement Amendments of 1988 (CLIA-88) to perform high complexity testing. This organism has been reported to the [facility] as required, [address] [place] [address]. (A) Comment: Specimen Information Specimen Source: Stool Specimen Site: Nonpreserved Specimen Stool - Nonpreserved Organism Antibiotic Method Susceptibility Salmonella give Ampicillin LESIA <=2 mcg/mL: Susceptible Salmonella give Amoxicillin/Clavulanate LESIA <=2/1 mcg/mL: Susceptible Salmonella give Ceftriaxone LESIA <=0.5 mcg/mL: Susceptible Salmonella give Levofloxacin LESIA <=1 mcg/mL: Susceptible Salmonella give Meropenem LESIA <=0.125 mcg/mL: Susceptible Salmonella give Trimethoprim/Sulfamethoxazole LESIA <=0.5/9.5 mcg/mL: Susceptible Salmonella give Tigecycline LESIA 1 mcg/mL: Susceptible Performing Organization Address City/[facility] Phone Number [facility] DEPARTMENT OF PATHOLOGY AND [address] [place] [address] [employer] Gastrointestinal panel (02/26/2018 7:52 AM)Only the most recent of2 resultswithin the time period is included. Gastrointestinal panel Positive for Salmonella species [facility] DEPARTMENT OF PATHOLOGY AND GENOMIC Negative for all other pathogens tested: MEDICINE Negative for Campylobacter Negative for Diarrheagenic E [...] Rotavirus A Negative for Sapovirus Negative for E coli 0157 This real-time PCR assay detects the presence of nucleic acids (RNA or DNA) for the gastrointestinal pathogens listed. A result of "Not-detected" does not exclude the possibility of the presence of one or more pathogens at concentrations less than the detectable limits of the assay. (A) Comment: Specimen Information Specimen Source: Stool Specimen Site: Nonpreserved Specimen Stool - Nonpreserved Performing Organization Address City/[facility] Phone Number [facility] [place] [address] [facility] Cytomegalovirus by PCR (02/26/2018 5:20 AM)Only the most recent of4 resultswithin the time period is included. Cytomegalovirus by PCR Not-Detected Not-Detected IU/mL [facility] DEPARTMENT OF PATHOLOGY AND GENOMIC MEDICINE Cytomegalovirus by PCR See link below for [facility] DEPARTMENT OF [facility] Lab PATHOLOGY AND GENOMIC ReportComment: Case MEDICINE Number: [id number] Performing Organization Address City/State/Zipcode Phone Number [facility] DEPARTMENT OF PATHOLOGY [address] [address] GENOMIC MEDICINE Manual differential (02/26/2018 5:20 AM) Manual differential PERFORMED [facility] DEPARTMENT OF PATHOLOGY AND GENOMIC MEDICINE Neutrophils 82.0 (H) 39.0 - 69.0 % [facility] DEPARTMENT OF PATHOLOGY AND GENOMIC MEDICINE Lymphocytes 12.0 (L) 25.0 - 45.0 % [facility] DEPARTMENT OF PATHOLOGY AND GENOMIC MEDICINE Monocytes 6.0 0.0 - 10.0 % [facility] DEPARTMENT OF PATHOLOGY AND GENOMIC MEDICINE Eosinophils 0.0 0.0 - 5.0 % [facility] DEPARTMENT OF PATHOLOGY AND GENOMIC MEDICINE Basophils 0.0 0.0 - 1.0 % [facility] DEPARTMENT OF PATHOLOGY AND GENOMIC MEDICINE Metamyelocytes 0 % [facility] DEPARTMENT OF PATHOLOGY AND GENOMIC MEDICINE Promyelocytes 0 % [facility] DEPARTMENT OF PATHOLOGY AND GENOMIC MEDICINE Platelet slide review Decreased (A) [facility] DEPARTMENT OF PATHOLOGY AND GENOMIC MEDICINE Anisocytosis Moderate [facility] DEPARTMENT OF PATHOLOGY AND GENOMIC MEDICINE Ovalocytes Moderate [facility] DEPARTMENT OF PATHOLOGY AND GENOMIC MEDICINE Enlarged platelets Moderate (A) [facility] DEPARTMENT OF PATHOLOGY AND GENOMIC MEDICINE Performing Organization Address [facility] Phone Number [facility] DEPARTMENT OF PATHOLOGY AND [address] [place] [address] Phosphorus level (02/26/2018 5:20 AM)Only the most recent of3 resultswithin the time period is included. Phosphorus 2.3 (L) 2.4 - 4.5 mg/dL [facility] DEPARTMENT OF PATHOLOGY AND GENOMIC MEDICINE Specimen Plasma specimen Performing Organization Address [facility] Phone Number [facility] DEPARTMENT OF PATHOLOGY AND [address] [place] [address] Echocardiogram complete w contrast and 3D if needed (02/25/2018 3:00 PM) Narrative [facility]formed At [facility] E[facility] Report [address] [place] [address] Pat.Name:[facility]IA JENKINS [facility][id number] .Date: 02/25/2018Refer.MD:EBENEZER ESPOSITO MD Exam Time: 2:24:00 PMStudy Type:Routine Echo Height:69inWeight: 198lb BSA: 2.06 m2 DOBAge:1945,72Y Sex: MALEBP:132/68 HR:80 bpmSonogrphr: Tevin Ayala RDCS Pat. Stat.:Inpatient Room:[address] Study Status:Final Echo Event ID:[id number] Order ID:[id number] Reason for Study:Fever in post tx patient, assess for possible IE History / Clinical:Arrhythmias, COPD, Heart Transplant Procedures:2D Echo, Colorflow Doppler, Portable, Intravenous Definity Contrast Race:C SUMMARY: LV size is normal. LV EF is normal. Estimated EF is 60-64%. RV systolic function is normal. FINDINGS: LV: LV size is normal. LV EF is normal. Overall wall motion is normal.Estimated EF is 60-64%. RV: RV size is normal. RV systolic function is normal. LA: LA volume is enlarged. RA: RA volume is enlarged. AO: Aortic root diameter is normal. ROSLYN: No pericardial effusion. AV: No structural AV abnormalities noted. MV: No structural MV abnormalities noted. PV: No structural PV abnormalities noted. A trace of pulmonic regurgitation. TV: No structural TV abnormalities noted. Mild tricuspid regurgitation Mascorro: LV filling pressure is normal. Other:Estimated PA systolic pressure is 35 mmHg, assuming a mean RAPof 5 mmHg. MEASUREMENTS: 2D Parasternal [place] Ds4.2 cmLVPWd1.1 cm LVIDd3.9 cmIndex1.9 cm/m Ao Rtd 2.6 cm Index1.3 cm/m LVIDs2 cm LV Wljj301.5 g(122-174) LV%fs 49 % LVM Index 85.7 g/m2 IVSd 1.4 cmRWT0.6 DOPPLER LVOT Stroke Vol LVOT 2 cmLVOT CO6 l/min LVOT TVI23.2 cmLVOT CI2.9 l/m/m2 LVOT Tm273 sxgfRP00 bpm LVOT SV 72.9 ml Signed 02/25/2018 09:29 PM Candido F. Nagueh, M.D. Procedure Note Interface, Radiology Results In - 02/25/2018 9:29 PM CDT Echocardiography Report [address] [address], [place] [address] Pat.Name: TAQUERIA JENKINS.ID: [id number] .Date: 02/25/2018 Refer.MD: EBENEZER ESPOSITO MD Exam Time: 2:24:00 PM Study Type:Routine Echo Height: 69in Weight: 198lb BSA: 2.06 m2 Age: 2 1945,72Y Sex: MALE BP: 132/68 HR: 80 bpm Sonogrphr: Tevin Ayala RDCS Pat. Stat.:Inpatient Room: [address] Study Status:Final Echo Event ID:[id number] Order ID: [id number] Reason for Study:Fever in post tx patient, assess for possible IE History / Clinical:Arrhythmias, COPD, Heart Transplant Procedures:2D Echo, Colorflow Doppler, Portable, Intravenous Definity Contrast Race: C SUMMARY: LV size is normal. LV EF is normal. Estimated EF is 60-64%. RV systolic function is normal. FINDINGS: LV: LV size is normal. LV EF is normal. Overall wall motion is normal. Estimated EF is 60-64%. RV: RV size is normal. RV systolic function is normal. LA: LA volume is enlarged. RA: RA volume is enlarged. AO: Aortic root diameter is normal. ROSLYN: No pericardial effusion. AV: No structural AV abnormalities noted. MV: No structural MV abnormalities noted. PV: No structural PV abnormalities noted. A trace of pulmonic regurgitation. TV: No structural TV abnormalities noted. Mild tricuspid regurgitation Mascorro: LV filling pressure is normal. Other: Estimated PA systolic pressure is 35 mmHg, assuming a mean RAP of 5 mmHg. MEASUREMENTS: 2D Parasternal [place] LA Ds 4.2 cm LVPWd 1.1 cm LVIDd 3.9 cm Index 1.9 cm/m Ao Rtd 2.6 cm Index 1.3 cm/m LVIDs 2 cm LV Mass 176.5 g (122-174) LV%fs 49 % LVM Index 85.7 g/m2 IVSd 1.4 cm RWT 0.6 DOPPLER LVOT Stroke Vol LVOT 2 cm LVOT CO 6 l/min LVOT TVI 23.2 cm LVOT CI 2.9 l/m/m2 LVOT Tm 273 msec HR 82 bpm LVOT SV 72.9 ml Signed 02/25/2018 09:29 PM Candido Raymond M.D. Performing Organization Address [facility] Phone Number [facility] [address] [place] [address] Lactic acid level (02/25/2018 8:15 AM)Only the most recent of3 resultswithin the time period is included. Lactic acid 1.0 0.5 - 2.2 mmol/L [facility] DEPARTMENT OF PATHOLOGY AND GENOMIC MEDICINE Specimen Blood Performing Organization Address [facility] Phone Number [facility] DEPARTMENT OF PATHOLOGY AND [address] [place] [address] [facility] MEDICINE ECG 12 lead (02/25/2018 3:50 AM)Only the most recent of3 resultswithin the time period is included. Ventricular rate 100 [facility] Atrial rate 100 [facility] GA interval 150 [facility] QRSD interval 86 [facility] QT interval 334 [facility] QTC interval 430 [facility] P axis 1 68 [facility] QRS axis 1 79 [facility] T wave axis 79 [facility] EKG impression Normal sinus rhythm-Possible Inferior infarct [facility] MUSE , age undetermined-Poor R wave progression- Performing Organization Address [facility] Phone Number [facility] [address] [place] [address] XR Chest 1 Vw Portable (02/25/2018 2:35 AM) Narrative Performed At Examination:XR CHEST 1 VW PORTABLE RADIANT Clinical History:Cough Comparison: None. Technique: Single frontal view of the chest is obtained. Findings: Cardiomegaly with vascular crowding or congestion are noted. Sternotomy wires are noted. Mild right base atelectasis is seen. No pleural effusion is seen. No pneumothorax is seen. Impression: Cardiomegaly with vascular crowding or congestion and mild right base atelectasis. [facility]-[id number] Procedure Note [facility], Radiology Results Incoming - 02/25/2018 2:40 AM CDT Examination: XR CHEST 1 VW PORTABLE Clinical History: Cough Comparison: None. Technique: Single frontal view of the chest is obtained. Findings: Cardiomegaly with vascular crowding or congestion are noted. Sternotomy wires are noted. Mild right base atelectasis is seen. No pleural effusion is seen. No pneumothorax is seen. Impression: Cardiomegaly with vascular crowding or congestion and mild right base atelectasis. [facility]-[id number] Performing Organization Address [facility] Phone Number [facility] [address] [place] [address] Respiratory pathogen panel (02/25/2018 2:03 AM)Only the most recent of2 resultswithin the time period is included. Respiratory pathogen Negative for all pathogens tested: [facility] DEPARTMENT OF panel Negative for Adenovirus PATHOLOGY AND GENOMIC Negative for Coronavirus HKU1 MEDICINE Negative for Coronavirus NL63 Negative for Coronavirus [...] Specimen Source: Nares Specimen Site: Right Specimen Nares - Right Performing Organization Address City/[facility] Phone Number [facility] DEPARTMENT OF PATHOLOGY AND [address] [place], [place] [phone] [facility] Urinalysis screen and microscopy, with reflex to culture (02/25/2018 2:02 AM) Only the most recent of2 resultswithin the time period is included. Specimen site Clean catch [facility] DEPARTMENT OF PATHOLOGY AND GENOMIC MEDICINE Color, UA Straw [facility] DEPARTMENT OF PATHOLOGY AND GENOMIC MEDICINE Appearance, UA Clear [facility] DEPARTMENT OF PATHOLOGY AND GENOMIC MEDICINE Specific gravity, UA 1.014 1.001 - 1.035 [facility] DEPARTMENT OF PATHOLOGY AND GENOMIC MEDICINE pH, UA 7.0 5.0 - 8.5 [facility] DEPARTMENT OF PATHOLOGY AND GENOMIC MEDICINE Protein, UA 2+ (A) Negative [facility] DEPARTMENT OF PATHOLOGY AND GENOMIC MEDICINE Glucose, UA Negative Negative [facility] DEPARTMENT OF PATHOLOGY AND GENOMIC MEDICINE Ketones, UA Negative Negative [facility] DEPARTMENT OF PATHOLOGY AND GENOMIC MEDICINE Bilirubin, UA Negative Negative [facility] DEPARTMENT OF PATHOLOGY AND GENOMIC MEDICINE Blood, UA Negative Negative [facility] DEPARTMENT OF PATHOLOGY AND GENOMIC MEDICINE Nitrite, UA Negative Negative [facility] DEPARTMENT OF PATHOLOGY AND GENOMIC MEDICINE Urobilinogen, UA <2.0 <2.0 [facility] DEPARTMENT OF PATHOLOGY AND GENOMIC MEDICINE Leukocyte esterase, UA Negative Negative [facility] DEPARTMENT OF PATHOLOGY AND GENOMIC MEDICINE WBC, UA <1 0 - 1 /HPF [facility] DEPARTMENT OF PATHOLOGY AND GENOMIC MEDICINE RBC, UA 1 0 - 5 /HPF [facility] DEPARTMENT OF PATHOLOGY AND GENOMIC MEDICINE Bacteria, UA None seen None seen [facility] DEPARTMENT OF PATHOLOGY AND GENOMIC MEDICINE Yeast, UA None seen [facility] DEPARTMENT OF PATHOLOGY AND GENOMIC MEDICINE Yeast with pseudohyphae, UA None seen [facility] DEPARTMENT OF PATHOLOGY [facility] GENOMIC MEDICINE Specimen Urine Performing Organization Address City/[facility]/Zipcode Phone Number [facility] DEPARTMENT OF PATHOLOGY AND [address] [place] [phone] [facility] Blood culture, aerobic & anaerobic (02/25/2018 2:02 AM)Only the most recent of4 resultswithin the time period is included. Blood culture isolate No growth after 5 days of incubation. [facility] DEPARTMENT OF Comment: PATHOLOGY AND GENOMIC Specimen Information MEDICINE Specimen Source: Blood Specimen Site: Hand, left Specimen Blood - Hand, left Performing Organization Address [facility] Phone Number [facility] DEPARTMENT OF PATHOLOGY AND [address] [place] [address] Partial thromboplastin time, activated (02/25/2018 2:02 AM) PTT 36.0 23.0 - 36.0 sec [facility] DEPARTMENT OF PATHOLOGY Comment: AND [facility] PTT therapeutic range for unfractionated heparin is 61.0-112.0 seconds which corresponds to Anti-Xa 0.3-0.7 U/ml. Specimen Blood Performing Organization Address [facility]/Zipcode Phone Number [facility] DEPARTMENT OF PATHOLOGY AND [address] [place] [address] Prothrombin time with INR (02/25/2018 2:02 AM)Only the most recent of4 resultswithin the time period is included. Prothrombin time 15.5 (H) 12.0 - 15.0 sec [facility] DEPARTMENT OF PATHOLOGY AND GENOMIC MEDICINE INR 1.2 [facility] DEPARTMENT OF Comment: PATHOLOGY AND GENOMIC The International Normalized Ratio (INR) is a therapeutic MEDICINE monitoring tool for patients who are stable on oral anticoagulant therapy. An INR of 2.0-3.0 is suggested for deep vein thrombosis/pulmonary embolism. Specimen Blood Performing Organization Address [facility] Phone Number [facility] DEPARTMENT OF PATHOLOGY AND [address] [place] [phone] [facility] Urine culture (02/25/2018 2:00 AM)Only the most recent of2 resultswithin the time period is included. Urine culture SEE COMMENTComment: Bacteriuria [facility] DEPARTMENT OF PATHOLOGY screen negative. AND GENOMIC MEDICINE Performing Organization Address [facility]/Zipcode Phone Number [facility] DEPARTMENT OF PATHOLOGY AND [address] [place] [phone] GENOMIC MEDICINE Aerobic culture (01/19/2018 5:40 PM) Aerobic culture isolate No growth after 3 days. [facility] DEPARTMENT OF PATHOLOGY Comment: AND [facility] Specimen Information Specimen Source: Wound Specimen Site: Hand Specimen Wound - Hand Performing Organization Address City/[facility]/Zipcode Phone Number [facility] DEPARTMENT OF PATHOLOGY AND [address] [place] [address] [facility] Gram stain (01/19/2018 5:40 PM) Gram stain isolate Few WBC's [facility] DEPARTMENT OF PATHOLOGY AND No organisms seen GENOMIC MEDICINE Comment: Specimen Information Specimen Source: Wound Specimen Site: Hand Specimen Wound - Hand Performing Organization Address City/State/Zipcode Phone Number [facility] DEPARTMENT OF PATHOLOGY AND [address] MEDICINE Echocardiogram complete w contrast and 3D if needed (01/18/2018 12:36 PM) Narrative Performed At [facility] Echocardiography Report [address] [facility], [facility] [address], [place] [address] Pat.Name:TAQUERIA JENKINS TPat.ID:[id number] .Date: 01/18/2018 Refer.MD:GENE MUNIZ M.D. Exam Time: 12:15:00 PM Study Type:Routine Echo Height:70inWeight: 192lb BSA: 2.05 m2 DOBAge:1945,72Y Sex: MALEBP:139/68 HR:85 bpmSonogrphr: DMITRIY Enciso Pat. Stat.:Inpatient Room:[facility] Study Status:Final Echo Event ID:[id number] Order ID:[id number] Reason for Study:Post OHT SOB History / [...] RAPof 10 mmHg. MEASUREMENTS: 2D Parasternal [place] LVOT 2 cmLA Ds4.3 cm LVIDd4.4 cmIndex2.1 cm/m Ao An2.1 cm LVIDs2.5 cmAo Rtd 2.8 cm Index1.4 cm/m LV%fs 43.2 % LV Zlyz235.3 g(122-174) IVSd 1.3 cmLVM Index 93.3 g/m2 LVPWd1.1 cmRWT0.5 LA Sng Plane LA Area 22.3 cm2(8.8-23.4) LA Vol68.9 ml Index33.6 ml/m LA LngAx 6.1 cm RA Sng Plane RA Area 21.7 cm2(8.3-19.5) RA Vol53.9 ml Index26.3 ml/m RA LngAx 7.4 cm DOPPLER LVOT For Flow LVOT Area3.1 cm2 LVOT SV 59.8 ml LVOTpkVel 96.4 cm/sHR77.4 bpm LVOTpkPG 3.7 mmHgLVOT CO4.6 l/min LVOTmnPG 1.9 mmHgLVOT CI2.3 l/m/m2 LVOT TVI19 cm Signed 01/18/2018 04:51 PM Marlon Rizzo M.D. Procedure Note Interface, Radiology Results In - 01/18/2018 4:51 PM CDT Echocardiography Report [address] [address] Pat.Name: TAQUERIA JENKINS Pat.ID: [id number] .Date: 01/18/2018 Refer.MD: GENE MUNIZ M.D. Exam Time: 12:15:00 PM Study Type:Routine Echo Height: 70in Weight: 192lb BSA: 2.05 m2 Age: 2 1945,72Y Sex: MALE BP: 139/68 HR: 85 bpm Sonogrphr: DMITRIY Enciso Pat. Stat.:Inpatient Room: D 402 Study Status:Final Echo Event ID:[id number] Order ID: [id number] Reason for Study:Post OHT SOB History / [...] of 10 mmHg. MEASUREMENTS: 2D Parasternal [place] LVOT 2 cm LA Ds 4.3 cm [...] Signed 01/18/2018 04:51 PM Marlon Rizzo M.D. Performing Organization Address [facility]/State/Zipcode Phone Number [facility] [address] [place] [address] Pv duplex venous upper extremity (01/18/2018 12:00 PM) Narrative Performed At [facility] Vascular Ultrasound Laboratory Upper Extremity Venous Report [address]Name:TAQUERIA JENKINS TPat.ID:[id number] .Date: 01/18/2018 Refer.MD:GENE MUNIZ MD Exam Time: 11:32:00 AM Study Type:UE Venous Height:69inWeight: 192lb BSA: 2.03 m2 DOBAge:1945,72Y Sex: MALESonogrphr: Vianey Morgan RVT Pat. Stat.:Inpatient Room:[address] TapeVol: ZHANNA, CPT - 4: 58863 Echo Event ID:[id number] Order ID:[id number] Reason for Study:Left forearm pain and edema.History [...] Vascular Ultrasound Laboratory Upper Extremity Venous Report [address] [place] [address] Pat.Name: TAQUERIA JENKINS Pat.ID: [id number] .Date: 01/18/2018 Refer.MD: GENE MUNIZ MD Exam Time: 11:32:00 AM Study Type:UE Venous Height: 69in Weight: 192lb BSA: 2.03 m2 Age: 2 1945,72Y Sex: MALE Sonogrphr: Vianey Morgan RVT Pat. Stat.:Inpatient Room: [address] Tape Vol: ZHANNA, CPT - 4: [address] Echo Event ID:[id number] Order ID: [id number] Reason for Study:Left forearm pain and edema. [...] Signed 01/18/2018 02:41 PM Willi Olivarez MD Performing Organization Address [facility]/State/Zipcode Phone Number [facility] [address] [place] [address] CBC hemogram (01/18/2018 10:15 AM) WBC 17.77 (H) 4.50 - 11.00 k/uL [facility] DEPARTMENT OF PATHOLOGY AND GENOMIC MEDICINE RBC 3.92 (L) 4.40 - 6.00 m/uL [facility] DEPARTMENT OF PATHOLOGY AND GENOMIC MEDICINE HGB 12.6 (L) 14.0 - 18.0 g/dL [facility] DEPARTMENT OF PATHOLOGY AND GENOMIC MEDICINE HCT 39.2 (L) 41.0 - 51.0 % [facility] DEPARTMENT OF PATHOLOGY AND GENOMIC MEDICINE MCV 100.0 82.0 - 100.0 fL [facility] DEPARTMENT OF PATHOLOGY AND GENOMIC MEDICINE MCH 32.1 27.0 - 34.0 pg [facility] DEPARTMENT OF PATHOLOGY AND GENOMIC MEDICINE MCHC 32.1 31.0 - 37.0 g/dL [facility] DEPARTMENT OF PATHOLOGY AND GENOMIC MEDICINE RDW - SD 50.5 37.0 - 55.0 fL [facility] DEPARTMENT OF PATHOLOGY AND GENOMIC MEDICINE MPV 11.1 8.8 - 13.2 fL [facility] DEPARTMENT OF PATHOLOGY AND GENOMIC MEDICINE Platelet count 123 (L) 150 - 400 k/uL [facility] DEPARTMENT OF PATHOLOGY AND GENOMIC MEDICINE Nucleated RBC 0.00 /100 WBC [facility] DEPARTMENT OF PATHOLOGY AND GENOMIC MEDICINE Specimen Blood Performing Organization Address City/[facility] Cent[facility]ode Phone Number [facility] DEPARTMENT OF PATHOLOGY AND [address] [place] [address] Immunoglobulin G (01/18/2018 10:15 AM) IgG 759 700 - 1,600 mg/dL [facility] DEPARTMENT OF PATHOLOGY AND GENOMIC MEDICINE Specimen Plasma specimen Performing Organization Address [facility] Phone Number [facility] DEPARTMENT OF PATHOLOGY AND [address] [place] [address] Vancomycin level, random (01/18/2018 10:15 AM) Vancomycin, random 6.1 ug/mL [facility] DEPARTMENT OF PATHOLOGY AND GENOMIC MEDICINE Specimen Serum Performing Organization Address [facility] Phone Number [facility] DEPARTMENT OF PATHOLOGY AND [address] [place] [address] CT Chest Wo Contrast (01/18/2018 9:47 AM) Narrative Performed At EXAMINATION: CT CHEST WO CONTRAST [facility] CLINICAL HISTORY: SOB fever TECHNIQUE:Axial images of [...] chronic bronchitis without evidence of underlying pneumonia. [facility]-[id number] Procedure Note [facility], Radiology Results Incoming - 01/18/2018 10:17 [...] chronic bronchitis without evidence of underlying pneumonia. [facility]-[id number] Performing Organization Address City/State/Zipcode Phone Number [facility] [address] [place] [address] CT Upper Extremity Wo Left (01/18/2018 9:47 AM) Narrative Performed At EXAMINATION:CT UPPER EXTREMITY WO LEFT [facility] INDICATION:Dislocation. COMPARISON: None available. TECHNIQUE: Helical axial [...] chest CT for additional findings and details. Performing Organization Address [facility] Phone Number [facility] [address] [place] [address] Hemoglobin A1c (01/17/2018 11:00 PM)Only the most recent of2 resultswithin the time period is included. Hemoglobin A1C 6.3 (H) 4.0 - 5.6 % [facility] DEPARTMENT OF PATHOLOGY Comment: AND GENOMIC MEDICINE HbA1c cutoffs for diagnosing diabetes: 4.0% - 5.6%=normal 5.7% - 6.4%=increased risk for diabetes (prediabetes) >=6.5%=diabetes Goals for glycemic control (ADA 2016) < 7.0%Target for non adults with diabetes. More or less stringent targets may be appropriate for individual patients. <7.5% Target for Children and adolescents with type 1 diabetes. Specimen Blood Performing Organization Address [facility] Phone Number [facility] DEPARTMENT OF PATHOLOGY AND [address] [phone] [facility] Echocardiogram complete w contrast and 3D if needed (11/08/2017 3:44 PM) Narrative Performed At [facility] Echocardiography Report [address] [place] [address] Pat.Name:TAQUERIA JENKINS TPat.ID:[id number] .Date: 11/08/2017 Refer.MD:DONALD EPSTEIN MD Exam Time: 3:44:00 PMStudy Type:Routine Echo Height:70inWeight: 193lb BSA: 2.06 m2 DOBAge:1945,72Y Sex: MALEBP:179/87 HR:82 bpm Sonogrphr: Nadira Rodriguez RDCS, BRENDON Pat. Stat.:OutpatientRoom:Treatment 3 Study Status:Final Echo Event ID:[id number] Order ID:[id number] Reason for Study:VAD and Cardiac Transplantation - [...] RAPof 10 mmHg. MEASUREMENTS: 2D Parasternal [place] Ao An2 cmLVPWd0.9 cm LVOT 1.8 cmLA Ds4.8 cm LVIDd4.7 cmIndex2.3 cm/m Ao Rtd 3 cm Index1.5 cm/m LVIDs3 cm LV Fixq280.4 g(122-174) LV%fs 36.5 % LVM Index 82.2 g/m2 IVSd 1.2 cmRWT0.4 LA Sng Plane LA Area 29.5 cm2(8.8-23.4) LA Vol89 ml Index43.2 ml/m LA LngAx 7.9 cm Signed 11/09/2017 06:19 PM Meaghan Feliciano M.D. Procedure Note Interface, Radiology Results In - 11/09/2017 6:19 PM [facility] Echocardiography Report [address] [place] [address] Pat.Name: TAQUERIA JENKINS Pat.ID: [id number] St.Date: 11/08/2017 Refer.MD: DONALD EPSTEIN MD Exam Time: 3:44:00 PM Study Type:Routine Echo Height: 70in Weight: 193lb BSA: 2.06 m2 Age: 2 1945,72Y Sex: MALE BP: 179/87 HR: 82 bpm Sonogrphr: Nadira Rodriguez RDCS, RVT Pat. Stat.:Outpatient Room: Treatment 3 Study Status:Final Echo Event ID:[id number] Order ID: [id number] Reason for Study:VAD and Cardiac Transplantation - [...] of 10 mmHg. MEASUREMENTS: 2D Parasternal [place] Ao An 2 cm LVPWd 0.9 cm [...] Signed 11/09/2017 06:19 PM Meaghan Feliciano M.D. Performing Organization Address City/State/Zipcode Phone Number [facility] [address] [place] [address] Cv exercise treadmill stress (no imaging) (11/08/2017 12:19 PM) Resting HR 76 [facility] Resting BP 179 [facility] Peak MET Achieved 1.0 [facility] Protocol Name GERBER [facility] Time in Exercise Phase 00:01:00 [facility] Max Systolic BP 181 H [facility] Max Diastolic BP 86 H [facility]USE Max Heart Rate 114 H [facility] Max Predicted Heart Rate 146 [facility] Target HR Formula (220 - Age)*100% [facility] Test Indication S/P HEART TRANSPLANT [facility]USE Arrhy During Ex H MUSE ECG Interp Before EX [facility] MUSE ECG Interp During Ex H MUSE Ex Summary Comment [facility] Overall HR Response to [facility] Exercise Overall BP Response To [facility] Exercise Reason for Termination [facility] Stress Test Impression -Waveform interpreted in report [facility] associated with image study. No interpretation is provided as part of this Stress ECG report.- Performing Organization Address City/State/Zipcode Phone Number [facility] [address] [place] [address] Stress test with myocardial perfusion (11/08/2017 12:19 PM) Narrative Performed At [facility] Nuclear Cardiology and Cardiac CT [address] [place] [address] Myocardial Perfusion Imaging Report Stress ECG tracings are available in MUSE, EPIC and CV Web All ECG interpretations are included in this report Pat.Name:TAQUERIA JENKINS TPat.ID:[id number] .Date: 11/08/2017 Refer.MD:DONALD EPSTEIN MD Exam Time: 11:16:00 AM Study Type:Myocardial Perfusion Imaging Height:69inWeight: 193lb BSA: 2.04 m2 DOBAge:1945,72Y Sex: MALEBP:179/87 HR:74 bpm Nuclear Tech:CYNDY Strauss, ARRT(N), ANANT Pérez, NMTCB Pat. Stat.:OutpatientNuclear Event ID:[id number] Order ID:[id number] Reason for Study:Annual Post Heart Transplant Evaluation History / Clinical:Heart Transplant, Congestive heart failure, Coronary artery disease, Diabetes, Family history CAD, Hypertension Procedures:Stress only Race: Risk Factors:Diabetes, Cardiovascular Disease, Hypertension, Family history of cardiovascular disease Clinical Symptoms:Regadenoson Physical Exam:S1, S2 Surgery: Outpatient Medications:Amlodipine, Aspirin, Zaroxyln, Imdur, Demadex, Folic acid, Milan 3, Thiamine, Insulin, Labetolol SUMMARY: SCINTIGRAPHIC RESULTS [...] Radiology Results In - 11/08/2017 5:50 PM [facility] Nuclear Cardiology and Cardiac CT [address] [place] [address] Myocardial Perfusion Imaging Report Stress ECG tracings are available in [employer] and [employer] All ECG interpretations are included in this report Pat.Name: TAQUERIA JENKINS Pat.ID: [id number] .Date: 11/08/2017 Refer.MD: DONALD EPSTIEN MD Exam Time: 11:16:00 AM Study Type:Myocardial Perfusion Imaging Height: 69in Weight: 193lb BSA: 2.04 m2 Age: 2 1945,72Y Sex: MALE BP: 179/87 HR: 74 bpm Nuclear Tech:Grecia Urias, TREAD BUILDER, ARRT(N), Giselle Jackson ARRT, NMTCB Pat. Stat.:Outpatient Nuclear Event ID:[id number] Order ID: [id number] Reason for Study:Annual Post Heart Transplant Evaluation History / Clinical:Heart Transplant, Congestive heart failure, Coronary artery disease, Diabetes, Family history CAD, Hypertension Procedures:Stress only Race: Risk Factors:Diabetes, Cardiovascular Disease, Hypertension, Family history of cardiovascular disease Clinical Symptoms:Regadenoson Physical Exam:S1, S2 Surgery: Outpatient Medications:Amlodipine, Aspirin, Zaroxyln, Imdur, Demadex, Folic acid, Milan 3, Thiamine, Insulin, Labetolol SUMMARY: SCINTIGRAPHIC RESULTS [...] Signed 11/08/2017 05:50 PM Justen Davila MD Performing Organization Address City/State/Zipcode Phone Number [facility] [address] [place] [address] XR Chest 2 Vw (11/08/2017 9:58 AM)Only the most recent of2 resultswithin the time period is included. Narrative Performed At Study:XR CHEST 2 VW [facility] History: Z94.1 Heart transplant status, T86.90 Unspecified complication of unspecified transplanted organ and tissue, Cough COMPARISON: August 05, 2017 IMPRESSION: 2 views of the chest.There is no focal consolidation, pleural effusion or pneumothorax.Cardiac silhouette is normal.Visualized osseous structures arestable. [id number] Procedure Note Hm Interface, Radiology Results Incoming - 11/08/2017 10:14 AM [facility] Study:XR CHEST 2 VW History: Z94.1 Heart transplant status, T86.90 Unspecified complication of unspecified transplanted organ and tissue, Cough COMPARISON: August 05, 2017 IMPRESSION: 2 views of the chest. There is no focal consolidation, pleural effusion or pneumothorax. Cardiac silhouette is normal. Visualized osseous structures are stable. [id number] Performing Organization Address [facility] Phone Number [facility] [address] [place] [address] Bone Density Peripheral (11/08/2017 9:58 AM) Narrative Performed At EXAMINATION:BONE DENSITY PERIPHERAL HM [facility] CLINICAL HISTORY:Z94.1 Heart transplant status COMPARISON:10/12/2016 Impression: 1.See accession #IM [id number]. [id number] Procedure Note Hm Interface, Radiology Results Incoming - 11/08/2017 10:29 AM [facility] EXAMINATION: BONE DENSITY PERIPHERAL CLINICAL HISTORY: Z94.1 Heart transplant status COMPARISON: 10/12/2016 Impression: 1. See accession #IM [id number]. [id number] Performing Organization Address [facility] Phone Number [facility] [address] [place] [address] Bone Density (11/08/2017 9:56 AM) Narrative Performed At EXAMINATION:BONE DENSITY HM [facility] CLINICAL HISTORY: 72 years Male Z94.1 Heart [...] effect of treatments on patient over time. [facility]-[id number] Procedure Note Hm Interface, Radiology Results Incoming - 11/08/2017 10:28 AM [facility] EXAMINATION: BONE DENSITY CLINICAL HISTORY: 72 years [...] effect of treatments on patient over time. [id number] Performing Organization Address City/State/Zipcode Phone Number [employer] [address] [place] [address] US Abdomen Complete (11/08/2017 9:00 AM) Narrative Performed At EXAM: [facility]INICAL DATA:Z94.1 Heart transplant status, T86.90 Unspecified [...] The spleen is homogeneous and not enlarged chenroouu36.2 x 3.9 x 3.8 cm. RIGHT KIDNEY: [...] common iliac artery measuring approximately 3 cm. [id number] Procedure Note Hm Interface, Radiology Results Incoming - 11/08/2017 11:48 AM [facility] EXAM: US ABDOMEN COMPLETE CLINICAL DATA: Z94.1 [...] common iliac artery measuring approximately 3 cm. [id number] Performing Organization Address City/[facility] Cent[facility] Phone Number [address] [address] Microalbumin, urine, random (11/08/2017 7:07 AM) Total volume, urine No volume mL [facility] DEPARTMENT OF PATHOLOGY AND GENOMIC MEDICINE Urine creatinine concentration 96 mg/dL [facility] DEPARTMENT OF PATHOLOGY AND GENOMIC MEDICINE Urine microalbumin concentration 26.1 mg/dL [facility] DEPARTMENT OF PATHOLOGY AND GENOMIC MEDICINE Urine microalbumin/creatinine 272 (H) 0 - 30 mg/g [facility] DEPARTMENT OF PATHOLOGY ratio AND GENOMIC MEDICINE Specimen Urine Performing Organization Address [facility] Phone Number [facility] DEPARTMENT OF PATHOLOGY AND [address] [place] [address] [facility] MEDICINE Donor specific antibody (11/08/2017 7:07 AM) [facility] DEPARTMENT OF PATHOLOGY AND GENOMIC MEDICINE Donor specific antibody See link below for PDF [facility] DEPARTMENT OF PATHOLOGY Lab Report AND GENOMIC MEDICINE Performing Organization Address City/[facility] Cent[facility]ode Phone Number [facility] DEPARTMENT OF PATHOLOGY AND [address] [place] [address] [facility] Hepatitis acute panel (11/08/2017 7:07 AM) Hepatitis A IgM Non-reactive Non-reactive [facility] DEPARTMENT OF PATHOLOGY AND GENOMIC MEDICINE Hepatitis B core IgM Non-reactive Non-reactive [facility] DEPARTMENT OF PATHOLOGY AND GENOMIC MEDICINE Hepatitis B surface Ag Non-reactive Non-reactive [facility] DEPARTMENT OF PATHOLOGY AND GENOMIC [facility] Hepatitis C Ab Non-reactive Non-reactive [facility] DEPARTMENT OF PATHOLOGY AND [facility] Specimen Blood Performing Organization Address City/[facility]/Zipcode Phone Number [facility] DEPARTMENT OF PATHOLOGY AND [address] [place] [address] [facility] Vitamin D 25 hydroxy level (11/08/2017 7:07 AM) Vitamin D, 25-hydroxy 45.3 30.0 - 150.0 [facility] DEPARTMENT OF Comment: ng/mL PATHOLOGY AND [facility] This assay reports the sum of 25-hydroxy vitamin D3 and 25-hydroxy vitamin MEDICINE D2. Reference range: 0-17 years: Deficiency: less [...] please contact lab for alternative methods. Specimen Blood Performing Organization Address City/[facility]/Zipcode Phone Number [facility] DEPARTMENT OF PATHOLOGY AND [address] [place] [phone] [facility] HIV 1, 2 antibody (11/08/2017 7:07 AM) HIV 1, 2 antibody Non-reactive Non-reactive [facility] DEPARTMENT OF Comment: PATHOLOGY AND GENOMIC Starting from December 24 2015, 4th generation HIV screening MEDICINE and confirmation assays are in use at [facility] Core Lab, consistent with the CDC-recommended [...] on the testing algorithm, please refer to: http://stacks.cdc.gov/view/cdc/53954. Specimen Blood Performing Organization Address City/State/[facility] Centercode Phone Number [facility] DEPARTMENT OF PATHOLOGY AND [address] [place] [phone] [facility] Uric acid level (11/08/2017 7:07 AM) Uric acid 5.1 3.4 - 7.0 mg/dL [facility] DEPARTMENT OF PATHOLOGY AND GENOMIC MEDICINE Specimen Plasma specimen Performing Organization Address City/[facility] Centercode Phone Number [facility] DEPARTMENT OF PATHOLOGY AND [address] [place] [address] [facility] T3, free (11/08/2017 7:07 AM) T3, free 3.3 2.4 - 4.2 pg/mL [facility] Comment: REFERENCE INTERVAL: Triiodothyronine, Free (Free T3) Access complete set of age- and/or gender-specific reference intervals for this test in the [facility] Test Directory ([email or web address]). Performed by [employer], [address] [place] [address] [email or web address], Tommy Mckenzie MD - Lab. Director Specimen Serum Performing Organization Address [facility] Centercode Phone Number [facility] [address] [place] [address] T3 (11/08/2017 7:07 AM) T3 128 80 - 200 ng/dL [facility] DEPARTMENT OF PATHOLOGY AND [facility] MEDICINE Specimen Plasma specimen Performing Organization Address [facility] Centercode Phone Number [facility] DEPARTMENT OF PATHOLOGY AND [address] [place] [phone] [facility] Thyroid stimulating hormone (11/08/2017 7:07 AM) TSH 3.37 0.27 - 4.20 uIU/mL [facility] DEPARTMENT OF PATHOLOGY AND GENOMIC MEDICINE Specimen Plasma specimen Performing Organization Address City/[facility]/Zipcode Phone Number [facility] DEPARTMENT OF PATHOLOGY AND [address] [place] [phone] [facility] T4 (11/08/2017 7:07 AM) T4 6.4 4.5 - 11.7 ug/dL [facility] DEPARTMENT OF PATHOLOGY AND GENOMIC MEDICINE Specimen Plasma specimen Performing Organization Address City/[facility]/Zipcode Phone Number [facility] DEPARTMENT OF PATHOLOGY AND [address] [place] [address] [facility] Testosterone (11/08/2017 7:07 AM) Testosterone 195 193 - 740 ng/dL [facility] DEPARTMENT OF PATHOLOGY AND GENOMIC MEDICINE Specimen Plasma specimen Performing Organization Address [facility] Centercode Phone Number [facility] DEPARTMENT OF PATHOLOGY AND [address] [place] [address] Prostate specific antigen (11/08/2017 7:07 AM) PSA 1.2 0.0 - 4.0 ng/mL [facility] DEPARTMENT OF PATHOLOGY Comment: AND [facility] The KEESHA 8000 PSA immunoassay was used. Results obtained with different assay methods or kits should not be used interchangeably and may be different. Specimen Plasma specimen Performing Organization Address City/[facility] Centercode Phone Number [facility] DEPARTMENT OF PATHOLOGY AND [address] [place] [address] Parathyroid hormone (11/08/2017 7:07 AM) PTH 99 (H) 15 - 65 pg/mL [facility] OF PATHOLOGY AND GENOMIC [facility] Specimen Blood Performing Organization Address [facility] Phone Number [facility] OF PATHOLOGY AND [address] [place] [address] Ionized calcium (11/08/2017 7:07 AM) pH 7.38 [facility] OF PATHOLOGY AND GENOMIC MEDICINE Ionized calcium 1.24 1.11 - 1.32 mmol/L [facility] OF PATHOLOGY AND GENOMIC MEDICINE Specimen Plasma specimen Performing Organization Address [facility] Phone Number [facility] OF PATHOLOGY AND [address] [place] [address] Hepatic function panel (11/08/2017 7:07 AM) Albumin 3.9 3.5 - 5.0 g/dL [facility] OF PATHOLOGY AND GENOMIC MEDICINE Total bilirubin 0.5 0.0 - 1.2 mg/dL [facility] OF PATHOLOGY AND GENOMIC MEDICINE Bilirubin direct <0.2 0.0 - 0.3 mg/dL [facility] OF PATHOLOGY AND GENOMIC MEDICINE Alkaline phosphatase 60 40 - 129 U/L [facility]MENT OF PATHOLOGY AND GENOMIC MEDICINE Protein 8.0 6.3 - 8.3 g/dL [facility] DE[facility] OF Comment: PATHOLOGY AND GENOMIC [place] 4.6-7.0 g/dL MEDICINE 1 week 4.4-7.6 g/dL 7 months-1year5.1-7.3 g/dL 1-2 years5.6-7.5 g/dL >3 years6.0-8.0 g/dL 18-150 6.3-8.3 g/dL ALT 10 5 - 50 U/L [facility] OF PATHOLOGY AND GENOMIC MEDICINE AST 16 10 - 50 U/L [facility] OF PATHOLOGY AND GENOMIC MEDICINE Specimen Plasma specimen Performing Organization Address [facility] Phone [facility] OF PATHOLOGY AND [address] [place] [phone] GENOMIC MEDICINE Lipid panel (11/08/2017 7:07 AM) Cholesterol 180 <200 mg/dL [facility] OF PATHOLOGY AND GENOMIC MEDICINE Triglycerides 208 (H) <150 mg/dL [facility] OF PATHOLOGY AND GENOMIC MEDICINE HDL cholesterol 47 >40 mg/dL [facility] OF PATHOLOGY AND GENOMIC MEDICINE LDL cholesterol 103 (H)Comment: Result <100 mg/dL [facility] obtained by direct LDL PATHOLOGY AND GENOMIC measurement MEDICINE Lipid panel interpretation SeeBelow [facility] DE[facility] OF Comment: PATHOLOGY AND GENOMIC Total Cholesterol (mg/dL) MEDICINE <200 Desirable [id number]-oyox >=240High Triglycerides (mg/dL) <150 Normal 096-123Meofnujahq-mipi 200-499High >=500Very high HDL Cholesterol (mg/dL) <40Low (male) <40Low (female) LDL Cholesterol (mg/dL) <100 Optimal 100-129Near or above optimal 285-393Adxhcselcs-oymo 160-189High >=190Very high Risk Catergories that modify [...] persons with high triglycerides (>=200 mg/dL) Specimen Plasma specimen Performing Organization Address City/[facility] Phone Number [facility] OF PATHOLOGY AND [address] [place] [phone] [facility] Surgical pathology request (08/23/2017 10:50 AM) [facility] OF PATHOLOGY AND GENOMIC MEDICINE Surgical pathology report See link below for PDF [facility] OF Lab Report PATHOLOGY AND GENOMIC MEDICINE Result status This is Final Report to [facility] OF [id number] PATHOLOGY AND GENOMIC MEDICINE Performing Organization Address [facility] Phone Number [facility] DE[facility]MENT OF PATHOLOGY AND [address] [place] [address] GENOMIC MEDICINE ECG ED Preliminary Interpretation - NOT AN ORDER (08/19/2017 1:53 PM) Narrative Performed At [facility] 08/18/20173:14 PM ECG ED Preliminary Interpretation - Not an Order Performed by: JULIET GARCIAS Authorized by: RAJNITH AYALA ECG reviewed by ED Physician 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 Previous ECG: Previous ECG:Compared to current Similarity:No change Interpretation: Interpretation: normal Rate: ECG rate:73 ECG rate assessment: normal Rhythm: Rhythm: sinus rhythm Ectopy: Ectopy: none QRS: QRS axis:Normal QRS intervals:Normal Conduction: Conduction: normal ST segments: ST segments:Normal T waves: T waves: normal Lipase level (08/05/2017 2:00 PM) Lipase 24 13 - 60 U/L [facility] DEPARTMENT OF PATHOLOGY AND GENOMIC MEDICINE Specimen Plasma specimen Performing Organization Address [facility] Phone Number [facility]MENT OF PATHOLOGY AND [address] [place] [address] Amylase level (08/05/2017 2:00 PM) Amylase 23 13 - 53 U/L [facility] DEPARTMENT OF PATHOLOGY AND GENOMIC MEDICINE Specimen Plasma specimen Performing Organization Address [facility] Phone Number [facility] DEPARTMENT OF PATHOLOGY AND [address] [place] [address] CT Abdomen Wo Contrast (07/30/2017 4:45 PM) Narrative Performed At EXAMINATION:CT ABDOMEN WO CONTRAST RADIANT CLINICAL HISTORY:R10.10 Upper abdominal painunspecified, Exclude presence [...] without evidence of herniated fat or bowel. [facility]-[id number] Procedure Note [facility], Radiology Results Incoming - 07/30/2017 5:40 PM [...] without evidence of herniated fat or bowel. [facility]-[id number] Performing Organization Address City/State/Zipcode Phone Number [facility] [address] [place] [address] POC glycosylated hemoglobin (Hb A1C) (07/20/2017 9:21 AM) POC Hemoglobin A1C 6.0 % Specimen Blood after 04/06/2017 Insurance Payer Benefit Plan / Group Subscriber ID Type Phone Address MEDICARE MEDICARE PART A AND B xxxxxxxxxx Medicare [place], [place] [employer]PP xxxxxxxxxx Commercial [phone] [place] [phone]
[2018-04-07] MEDS ORDERED: FENTANYL CITR 100 MCG/2 ML ONE (21:44)
[2018-04-07] MEDS ORDERED: ONDANSETRON 4 MG/2 ML VIAL ONE (21:44)
[2018-04-07 21:54] LABS: Absolute Lymphocytes (CBC) 1.3 K/uL (0.7-4.9); Absolute Monocytes 0.5 K/uL (0.1-1.3); Absolute Neutrophil 4.3 K/uL (1.8-8.0); Basophils % 0.4 % (0-1.3); Eosinophils % 0.6 % (0-4.4); Lymphocytes % 20.7 % (15.3-44.8); MCH 32.6 pg (27.0-35.0); MCV 97.5 fL (80-100); MPV 9.3 fL (7.6-11.3); Monocytes % 8.1 % (3.3-12.3)
--- NOTE | 2018-04-07 21:57 | EDPHYS ---
Physician Documentation [facility] Name: Octavio Bueno Age: 72 yrs Sex: Male : 1945 Arrival Date: 04/07/2018 Time: 21:37 Bed 3 Private MD: ED Physician Steven Esquivel HPI: 04/07 21:43 This 72 yrs old Male presents to ER via EMS with complaints of Fall Injury. rob 21:43 Details of fall: The patient fell from a height, from a ladder, approximately 6 feet. rob Onset: The symptoms/episode began/occurred just prior to arrival. Associated injuries: The patient sustained injury to the chest, injury to the abdomen. Severity of symptoms: At their worst the symptoms were moderate, in the emergency department the symptoms are unchanged. The patient has not experienced similar symptoms in the past. Historical: - Allergies: 21:54 NKA; tl2 - Home Meds: 21:54 allopurinol 100 mg Oral tab 1 tab 2 times per day [Active]; alprazolam 0.5 mg Oral tab tl2 1 tab daily [Active]; amlodipine 5 mg tab 1 tab once daily [Active]; aspirin 81 mg Oral TbEC 1 tab once daily [Active]; CellCept 500 mg Oral tab 1 tabs 2 times per day [Active]; ferrous sulfate 325 mg (65 mg iron) Oral tab daily [Active]; folic acid 1 mg Oral tab 1 tab once daily [Active]; gabapentin 300 mg Oral cap 1 cap 3 times per day [Active]; isosorbide mononitrate 30 mg Oral Tb24 1 tab once daily [Active]; labetalol 300 mg Oral tab 1 tab 2 times per day [Active]; magnesium oxide 400 mg Oral tab twice a day [Active]; metolazone 2.5 mg Oral tab 1 tab once daily [Active]; Nexium 40 mg Oral cpDR 1 cap once daily [Active]; Novolin 70/30 [place] Sub-Q 70-30 unit/mL twice a day [Active]; potassium chloride 10 mEq Oral cpER 1 cap once daily [Active]; pravastatin 40 mg Oral tab 1 tab once daily [Active]; prednisone 5 mg Oral tab once daily [Active]; Prograf 0.5 mg Oral cap every 12 hours [Active]; Singulair 10 mg Oral tab 1 tab once daily [Active]; tamsulosin 0.4 mg Oral cp24 1 cap once daily [Active]; torsemide 20 mg Oral tab 2 tabs once daily [Active]; - PMHx: 21:54 Diabetes - IDDM; Gout; Myocardial infarction; Hypertension; Hyperlipidemia; tl2 - Immunization history:: Adult Immunizations up to date. - Immunization history: Last tetanus immunization: unknown. - Social history:: Smoking status: unknown. - Ebola Screening: : No symptoms or risks identified at this time. ROS: 21:43 Eyes: Negative for injury, pain, redness, and discharge, ENT: Negative for injury, rob pain, and discharge, Neck: Negative for injury, pain, and swelling, Back: Negative for injury and pain, : Negative for injury, bleeding, discharge, and swelling, MS/Extremity: Negative for injury and deformity, Skin: Negative for injury, rash, and discoloration, Neuro: Negative for headache, weakness, numbness, tingling, and seizure. 21:43 Constitutional: Negative for body aches, chills, fatigue, fever. 21:43 Respiratory: Positive for pleurisy, shortness of breath, at rest. 21:43 Abdomen/GI: Positive for abdominal pain, of the right upper quadrant and right lower quadrant. Exam: 21:43 Head/Face: Normocephalic, atraumatic. Eyes: Pupils equal round and reactive to light, rob extra-ocular motions intact. Lids and lashes normal. Conjunctiva and sclera are non-icteric and not injected. Cornea within normal limits. Periorbital areas with no swelling, redness, or edema. ENT: Nares patent. No nasal discharge, no septal abnormalities noted. Tympanic membranes are normal and external auditory canals are clear. Oropharynx with no redness, swelling, or masses, exudates, or evidence of obstruction, uvula midline. Mucous membranes moist. Neck: Trachea midline, no thyromegaly or masses palpated, and no cervical lymphadenopathy. Supple, full range of motion without nuchal rigidity, or vertebral point tenderness. No Meningismus. Back: No spinal tenderness. No costovertebral tenderness. Full range of motion. MS/ Extremity: Pulses equal, no cyanosis. Neurovascular intact. Full, normal range of motion. Neuro: Awake and alert, GCS 15, oriented to person, place, time, and situation. Cranial nerves II-XII grossly intact. Motor strength 5/5 in all extremities. Sensory grossly intact. Cerebellar exam normal. Normal gait. Psych: Awake, alert, with orientation to person, place and time. Behavior, mood, and affect are within normal limits. 21:43 Chest/axilla: Inspection: no acute changes, Palpation: tenderness, that is moderate, of the anterior aspect of right upper chest, right lateral anterior chest, right lateral posterior chest and right breast. 21:43 Cardiovascular: Rate: tachycardic, Rhythm: regular, Pulses: no pulse deficits are appreciated, Pulses are 4+ in bilateral radial, brachial, femoral, popliteal, posterior tibial and and dorsalis pedis arteries.. Heart sounds: normal, Edema: 1+ edema to level of left midcalf and right midcalf, JVD: is not appreciated. 21:43 Respiratory: mild respiratory distress is noted, Respirations: labored breathing, that is mild, Breath sounds: decreased breath sounds, that are mild, that are moderate, are heard in the right upper lobe, right middle lobe, right posterior upper lobe, right posterior middle lobe and right posterior lower lobe. 21:43 Abdomen/GI: Inspection: distension, Bowel sounds: diminished, Palpation: moderate abdominal tenderness, in the anterior aspect of right lateral abdomen, posterior aspect of right lateral abdomen, right upper quadrant and right lower quadrant. Vital Signs: 21:39 BP 152 / 94; Pulse 90; Resp 24; Pulse Ox 100% on 100% Non-rebreather mask; Weight 77.11 tl2 kg; Height 5 ft. 9 in. (175.26 cm); Pain 10/10; 22:19 BP 136 / 80; Pulse 92; Resp 20; Pulse Ox 100% on Non-rebreather mask; tl2 21:39 Body Mass Index 25.10 (77.11 kg, 175.26 cm) tl2 Debra Coma Score: 21:39 Eye Response: spontaneous(4). Verbal Response: oriented(5). Motor Response: obeys tl2 commands(6). Total: 15. 22:20 Eye Response: spontaneous(4). Verbal Response: oriented(5). Motor Response: obeys tl2 commands(6). Total: 15. Trauma Score (Adult): 21:39 Eye Response: spontaneous(1); Verbal Response: oriented(1); Motor Response: obeys tl2 commands(2); Systolic BP: > 89 mm Hg(4); Respiratory Rate: 10 to 29 per min(4); [place] Score: 15; Trauma Score: 12 22:20 Eye Response: spontaneous(1); Verbal Response: oriented(1); Motor Response: obeys tl2 commands(2); Systolic BP: > 89 mm Hg(4); Respiratory Rate: 10 to 29 per min(4); Debra Score: 15; Trauma Score: 12 MDM: 21:40 Patient medically screened. [facility] 22:15 Data reviewed: vital signs, nurses notes, lab test result(s), EKG, radiologic studies, [facility] CT scan, plain films. 04/07 21:38 Order name: Basic Metabolic Panel; Complete Time: 22:15 [facility] 04/07 21:38 Order name: CBC with Diff; Complete Time: 22:09 [facility] 04/07 21:38 Order name: Ckmb; Complete Time: 22:15 [facility] 04/07 21:38 Order name: CPK; Complete Time: 22:15 [facility] 04/07 21:38 Order name: LFT's; Complete Time: 22:15 [facility] 04/07 21:38 Order name: Magnesium; Complete Time: 22:15 [facility] 04/07 21:38 Order name: NT PRO-BNP; Complete Time: 22:15 [facility] 04/07 21:38 Order name: Troponin (emerg Dept Use Only); Complete Time: 22:15 [facility] 04/07 21:38 Order name: Creatinine for Radiology; Complete Time: 22:09 [facility] 04/07 21:38 Order name: Type And Screen [facility] 04/07 21:58 Order name: Urine Dipstick--Ancillary (enter results) [facility] 04/07 22:24 Order name: ABO/RH no charge; Complete Time: 22:33 EDMS 04/07 21:38 Order name: XRAY Chest (1 view); Complete Time: 22:34 [facility] 04/07 21:38 Order name: EKG; Complete Time: 21:39 [facility] 04/07 21:38 Order name: Cardiac monitoring; Complete Time: 21:57 [facility] 04/07 21:38 Order name: EKG - Nurse/Tech; Complete Time: 21:57 [facility] 04/07 21:38 Order name: IV Saline Lock; Complete Time: 21:57 [facility] 04/07 21:38 Order name: Labs collected and sent; Complete Time: 21:57 [facility] 04/07 21:38 Order name: O2 Per Protocol; Complete Time: 21:57 [facility] 04/07 21:38 Order name: O2 Sat Monitoring; Complete Time: 21:57 [facility] 04/07 21:42 Order name: Pelvis XRAY [facility] 04/07 21:49 Order name: CT Traumagram (Head C Spine CAP wo con); Complete Time: 22:34 [facility] 04/07 22:33 Order name: Pelvis XRAY [facility] 04/07 21:38 Order name: Urine Dipstick-Ancillary (obtain specimen); Complete Time: 21:57 [facility] 04/07 21:42 Order name: Villa: viscus lido; Complete Time: 21:57 [facility] 04/07 22:08 Order name: Cervical Collar; Complete Time: 22:30 [facility] 04/07 22:08 Order name: Back Board; Complete Time: 22:48 [facility] Administered Medications: 21:57 Drug: fentaNYL (PF) 25 mcg Route: IVP; Site: right antecubital; tl2 22:49 Follow up: Response: No adverse reaction; Pain is unchanged, physician notified tl2 21:58 Drug: fentaNYL (PF) 25 mcg Route: IVP; Site: right antecubital; tl2 22:49 Follow up: Response: Pain is unchanged, physician notified tl2 21:58 Drug: Zofran 4 mg Route: IVP; Site: right antecubital; tl2 22:49 Follow up: Response: No adverse reaction tl2 22:13 Drug: fentaNYL (PF) 25 mcg Route: IVP; Infused Over: 2 mins; Site: right antecubital; tl1 22:50 Follow up: Response: No adverse reaction; Pain is unchanged, physician notified tl2 Disposition: 04/07/18 21:56 Transfer ordered to [facility]. Diagnosis are Fall (on) (from) unspecified stairs and steps - 6 foot, Abdominal tenderness, Dyspnea, Multiple fractures of ribs, right side, Type 1 diabetes mellitus. - Reason for transfer: Higher level of care. - Accepting physician is to trauma. - Condition is Fair. - Problem is new. - Symptoms are unchanged. Signatures: Dispatcher [employer] Kishore Carver rg2 Steven Esquivel MD MD cha Lasagna, Tonya, RN RN tl1 Mallika Crespo, RN RN tl2 Corrections: (The following items were deleted from the chart) 21:59 21:39 Head C Spine CAP W Con+CT.RAD.BRZ ordered. [facility] 22:56 21:56 04/07/2018 21:56 Transfer ordered to [facility]. tl2 Diagnosis is Fall (on) (from) unspecified stairs and steps - 6 foot; Abdominal tenderness; Dyspnea; Multiple fractures of ribs, right side; Type 1 diabetes mellitus. Reason for transfer: Higher level of care. Accepting physician is to [facility] trauma. Condition is Fair. Problem is new. Symptoms are unchanged. rob
--- NOTE | 2018-04-07 21:57 | ER ---
Nurse's Notes [facility] Name: Octavio Bueno Age: 72 yrs Sex: Male : 1945 Arrival Date: 04/07/2018 Time: 21:37 Bed 3 Private MD: Diagnosis: Fall (on) (from) unspecified stairs and steps-6 foot;Abdominal tenderness;Dyspnea;Multiple fractures of ribs, right side;Type 1 diabetes mellitus Presentation: 04/07 21:39 Presenting complaint: EMS states: Pt fell 6 ft off of a ladder on his right side. Pt tl2 states he hit his head but denies LOC. Bruising noted on R anterior chest, skin tear on L elbow. Clear breath sounds heard. Pt AOx3. Care prior to arrival: None. Mechanism of Injury: Fall from ladder approximately 6 feet. Trauma event details: Injury occurred in the [facility]. 21:39 Acuity: YAHIR 2 tl2 21:39 Method Of Arrival: EMS: [facility] 21:48 Transition of care: patient was not received from another setting of care. Onset of tl2 symptoms was April 07, 2018 at 21:00. Risk Assessment: Do you want to hurt yourself or someone else? Patient reports no desire to harm self or others. Initial Sepsis Screen: Does the patient meet any 2 criteria?. Initial Sepsis Screen: Does the patient have a suspected source of infection? No. Patient's initial sepsis screen is negative. Triage Assessment: 21:54 General: see general triage assessment. tl2 Trauma Activation: Physician: ED Physician; Name: Alvin; Notified At: 21:37; Arrived At: 21:37 Physician: General Surgeon; Name: ; Notified At: 21:37; Arrived At: Physician: Radiology; Name: Judith Sam Dillon; Notified At: 21:37; Arrived At: Physician: Respiratory; Name: ; Notified At: 21:37; Arrived At: Physician: Lab; Name: ; Notified At: 21:37; Arrived At: Historical: - Allergies: 21:54 NKA; tl2 - Home Meds: 21:54 allopurinol 100 mg Oral tab 1 tab 2 times per day [Active]; alprazolam 0.5 mg Oral tab tl2 1 tab daily [Active]; amlodipine 5 mg tab 1 tab once daily [Active]; aspirin 81 mg Oral TbEC 1 tab once daily [Active]; CellCept 500 mg Oral tab 1 tabs 2 times per day [Active]; ferrous sulfate 325 mg (65 mg iron) Oral tab daily [Active]; folic acid 1 mg Oral tab 1 tab once daily [Active]; gabapentin 300 mg Oral cap 1 cap 3 times per day [Active]; isosorbide mononitrate 30 mg Oral Tb24 1 tab once daily [Active]; labetalol 300 mg Oral tab 1 tab 2 times per day [Active]; magnesium oxide 400 mg Oral tab twice a day [Active]; metolazone 2.5 mg Oral tab 1 tab once daily [Active]; Nexium 40 mg Oral cpDR 1 cap once daily [Active]; Novolin 70/30 [place] Sub-Q 70-30 unit/mL twice a day [Active]; potassium chloride 10 mEq Oral cpER 1 cap once daily [Active]; pravastatin 40 mg Oral tab 1 tab once daily [Active]; prednisone 5 mg Oral tab once daily [Active]; Prograf 0.5 mg Oral cap every 12 hours [Active]; Singulair 10 mg Oral tab 1 tab once daily [Active]; tamsulosin 0.4 mg Oral cp24 1 cap once daily [Active]; torsemide 20 mg Oral tab 2 tabs once daily [Active]; - PMHx: 21:54 Diabetes - IDDM; Gout; Myocardial infarction; Hypertension; Hyperlipidemia; tl2 - Immunization history:: Adult Immunizations up to date. - Immunization history: Last tetanus immunization: unknown. - Social history:: Smoking status: unknown. - Ebola Screening: : No symptoms or risks identified at this time. Screenin:39 Abuse screen: Denies threats or abuse. Nutritional screening: No deficits noted. tl2 Tuberculosis screening: No symptoms or risk factors identified. Fall risk At risk due to injury, prior history of falls. 21:58 Fall Risk Fall in past 12 months (25 points). IV access (20 points). tl2 Primary Survey: 21:39 A: Airway: patent, Oxygen via non-rebreather at 15 liters per minute. Breathing/Chest: tl2 Respiratory pattern: regular, Respiratory effort: shallow, Breath sounds: clear, bilaterally. Chest inspection: symmetrical rise and fall of the chest. Circulation: Heart tones present. Pulses: palpable . Disability Alert. 22:30 Reassessment Airway Airway Patent Breathing/Chest Respiratory pattern Regular tl2 Respiratory effort Spontaneous Shallow Breath sounds Clear Chest inspection Symmetrical Circulation Heart rhythm Sinus rhythm Disability Alert. Secondary Survey: 21:39 HEENT: No deficits noted. Gastrointestinal: Abdomen is soft, distended. : No signs tl2 and/or symptoms were reported regarding the genitourinary system. Musculoskeletal: Circulation, motion, and sensation intact. Range of motion: intact in all extremities. Injury Description: contusion, right lateral anterior chest. Assessment: 21:39 General: Appears distressed, uncomfortable, Behavior is agitated, anxious. Pain: tl2 Complains of pain in right lateral anterior chest Pain does not radiate. Pain currently is 10 out of 10 on a pain scale. Neuro: Level of Consciousness is awake, alert, obeys commands, Oriented to person, place, time. Cardiovascular: Heart tones S1 S2 present Capillary refill < 3 seconds Patient's skin is warm and dry. Respiratory: Airway is patent Respiratory effort is shallow, Respiratory pattern is symmetrical, hyperventilation Breath sounds are clear bilaterally. GI: No signs and/or symptoms were reported involving the gastrointestinal system. : No signs and/or symptoms were reported regarding the genitourinary system. Derm: Bruising that is dark purple, on right lateral anterior chest. Musculoskeletal: Circulation, motion, and sensation intact. Range of motion: intact in all extremities. Vital Signs: 21:39 BP 152 / 94; Pulse 90; Resp 24; Pulse Ox 100% on 100% Non-rebreather mask; Weight 77.11 tl2 kg; Height 5 ft. 9 in. (175.26 cm); Pain 10/10; 22:19 BP 136 / 80; Pulse 92; Resp 20; Pulse Ox 100% on Non-rebreather mask; tl2 21:39 Body Mass Index 25.10 (77.11 kg, 175.26 cm) tl2 Debra Coma Score: 21:39 Eye Response: spontaneous(4). Verbal Response: oriented(5). Motor Response: obeys tl2 commands(6). Total: 15. 22:20 Eye Response: spontaneous(4). Verbal Response: oriented(5). Motor Response: obeys tl2 commands(6). Total: 15. Trauma Score (Adult): 21:39 Eye Response: spontaneous(1); Verbal Response: oriented(1); Motor Response: obeys tl2 commands(2); Systolic BP: > 89 mm Hg(4); Respiratory Rate: 10 to 29 per min(4); Range Score: 15; Trauma Score: 12 22:20 Eye Response: spontaneous(1); Verbal Response: oriented(1); Motor Response: obeys tl2 commands(2); Systolic BP: > 89 mm Hg(4); Respiratory Rate: 10 to 29 per min(4); Range Score: 15; Trauma Score: 12 ED Course: 21:37 Patient arrived in ED. rg2 21:39 Patient has correct armband on for positive identification. Placed in gown. Bed in low tl2 position. Call light in reach. Side rails up X2. Oxygen administration via non-rebreather mask \T\ 15L/min. 21:39 Inserted saline lock: 18 gauge in right antecubital area, using aseptic technique. tl2 Blood collected. Oxygen administration via non-rebreather mask \T\ 15L/min. 21:40 Steven Esquivel MD is Attending Physician. rob 21:42 Triage completed. tl2 21:47 XRAY Chest (1 view) In Process Unspecified. EDMS 21:54 Arm band placed on right wrist. tl2 21:[address] via stretcher. nj 21:58 Villa cath inserted, using sterile technique, 16 Fr., by ED staff, balloon inflated, to tl2 gravity drainage, urine specimen collected. Inserted saline lock: 18 gauge in left forearm, using aseptic technique. 22:09 CT Traumagram (Head C Spine CAP wo con) In Process Unspecified. EDMS 22:20 Thermoregulation: warm blanket given to patient. tl2 22:20 No provider procedures requiring assistance completed. Patient transferred, IV remains tl2 in place. 22:35 Pelvis XRAY In Process Unspecified. EDMS 22:36 Pelvis XRAY In Process Unspecified. EDMS Administered Medications: 21:57 Drug: fentaNYL (PF) 25 mcg Route: IVP; Site: right antecubital; tl2 22:49 Follow up: Response: No adverse reaction; Pain is unchanged, physician notified tl2 21:58 Drug: fentaNYL (PF) 25 mcg Route: IVP; Site: right antecubital; tl2 22:49 Follow up: Response: Pain is unchanged, physician notified tl2 21:58 Drug: Zofran 4 mg Route: IVP; Site: right antecubital; tl2 22:49 Follow up: Response: No adverse reaction tl2 22:13 Drug: fentaNYL (PF) 25 mcg Route: IVP; Infused Over: 2 mins; Site: right antecubital; tl1 22:50 Follow up: Response: No adverse reaction; Pain is unchanged, physician notified tl2 Output: 22:54 Urine: 100ml (Villa); Total: 100ml. tl2 Outcome: 21:56 ER care complete, transfer ordered by . rob 22:20 Transferred by helicopter to [facility], Transfer form completed. tl2 22:20 Condition: stable 22:20 Discharge instructions given to family, Instructed on the need for transfer. 22:54 Patient's length of stay was not longer than 2 hours. tl2 22:56 Patient left the ED. tl2 Signatures: Dispatcher [employer] EDMS Kishore Freeman rg2 Steven Esquivel MD MD cha Lasagna, Tonya RN RN tl1 Mallika Crespo RN RN tl2 Marcello Moreno
[2018-04-07 22:13] LABS: Albumin 3.8 g/dL (3.4-5.0); Bilirubin Direct 0.2 mg/dL (0-0.2); Bilirubin Total 0.7 mg/dL (0.2-1.0); CKMB Creatine Kinase MB 3.7 ng/mL (0.3-3.6); Potassium 4.8 mmol/L (3.5-5.1); Protein, Total 7.5 g/dL (6.4-8.2)
[2018-04-07 22:14] LABS: Magnesium 2.5 mg/dL (1.8-2.4)
--- NOTE | 2018-04-07 22:32 | RAD REPORT ---
EXAM DESCRIPTION: CT - Head C Spine Cap Wo Con - 04/07/2018 10:09 pm CLINICAL HISTORY: Trauma, head and neck injury. Chest, abdomen and pelvis pain. PAIN COMPARISON: Chest Single View dated 04/07/2018; Chest Single View dated 02/24/2018 TECHNIQUE: CT head without contrast. CT cervical spine without contrast with coronal and sagittal reformatted images. CT chest, abdomen and pelvis without contrast with coronal and sagittal reformatted images of the spi ne. All CT scans are performed using dose optimization technique as appropriate and may include automated exposure control or mA/KV adjustment according to patient size. FINDINGS: CT HEAD WITHOUT CONTRAST: No intracranial hemorrhage, hydrocephalus or extra-axial fluid collection. No areas of brain edema o r midline shift. The paranasal sinuses and mastoids are clear. The calvarium is intact. CT CERVICAL SPINE WITHOUT CONTRAST: No fracture or subluxation. The prevertebral soft tissues are normal in thickness. CT CHEST, ABDOMEN, PELVIS WITHOUT CONTRAST: NOTE: Lack of contrast is a significant limitation in the assessment of trauma related findings. Spec ifically, solid organ, vascular and bowel evaluation is significantly limited. Multiple right-sided rib fractures are seen.The right seventh rib demonstrates posterolateral nondisp laced fracture. The right eighth rib demonstrates compound fracture at the costovertebral junction an d right posterolateral aspect of the rib. The right ninth rib also demonstrates compound fracture wit h a posterolateral and costovertebral component. The posterolateral component of this fracture is ove rriding. The right tenth rib demonstrates a similar compound pattern with an overriding posterolatera l component and nondisplaced costovertebral component. The right transverse process of T10 is also fr actured. Right posterolateral eleventh rib nondisplaced fracture with compound component at the costo vertebral junction also seen. Pleural fluid is present on the right with increased density suggesting hemothorax. Airspace opacity in the right lower lobe posteriorly adjacent to the fractures probably represents pulmonary hemorrhag e or pulmonary contusion. No measurable pneumothorax. No evidence of intra-abdominal visceral injury, free fluid or free air is seen within the above detai led limitations. A prominent hepatic cyst is noted. Cholecystectomy clips. IVC filter is in place. Mo derate aortic atherosclerosis. 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 Fat containing bilateral inguinal hernias are seen. IMPRESSION: Multiple right-sided rib fractures are noted, several of which are compound as detailed. Small right-sided hemothorax is seen with probable pulmonary contusion/intraparenchymal pulmonary he morrhage in the right lower lobe.
--- NOTE | 2018-04-07 22:33 | RAD REPORT ---
EXAM DESCRIPTION: RAD - Chest Single View - 04/07/2018 9:47 pm CLINICAL HISTORY: Fall, trauma Chest pain. COMPARISON: Chest Single View dated 02/24/2018; Chest Single View dated 01/17/2018; Chest Single View dated 08/01/2017; Chest Pa And Lat (2 Views) dated 06/12/2017 FINDINGS: Portable technique limits examination quality. Vague opacity is present in the right lower lobe. Mildly elevated left hemidiaphragm is seen. The hea rt is mildly prominent size with sternotomy wires noted. Several right-sided rib fractures are seen p osteriorly.
--- NOTE | 2018-04-07 22:42 | RAD REPORT ---
EXAM DESCRIPTION: RAD - Pelvis - 04/07/2018 10:35 pm CLINICAL HISTORY: Abd pain;Trauma Pelvic pain after fall. COMPARISON: No comparisons FINDINGS: No fracture, dislocation or radiographic evidence of AVN. IMPRESSION: Negative study.
[2018-04-07 23:00] VITALS: O2SAT 100
[2018-04-07 23:01] VITALS: BP 136/80
[2018-04-07 23:26] LABS: Urine Blood 2+ (NEG); Urine Glucose NEGATIVE (NEG); Urine Protein 2+ (NEG); Urine Specific Gravity 1.015 (1.005-1.030)
--- NOTE | 2018-04-09 10:32 | EKG ---
Test Date: 2018-04-07 Test Time: 21:39:19 Business Control Manager: SORAIDA MEASUREMENT RESULTS: Intervals: Rate: 90 WY: 140 QRSD: 76 QT: 360 QTc: 440 [place]: P: 82 WY: 140 QRS: 68 T: 81 INTERPRETIVE STATEMENTS: Normal sinus rhythm Cannot rule out Inferior infarct, age undetermined Abnormal ECG Compared to ECG 02/24/2018 13:02:07 Myocardial infarct finding now present Electronically Signed On 04-09-18 10:27:45 CDT by Goyo Lugo
== END 2018-04-07 22:56 | disposition short-term general hospital (02) ==
LOC: ER 21:36
DX: S22.41XA Multiple fractures of ribs, right side, initial encounter for closed fracture (principal); R06.00 Dyspnea, unspecified; E10.9 Type 1 diabetes mellitus without complications; I10 Essential (primary) hypertension; I25.2 Old myocardial infarction; E78.5 Hyperlipidemia, unspecified; W11.XXXA Fall on and from ladder, initial encounter; Y93.9 Activity, unspecified; Y92.9 Unspecified place or not applicable; Z79.82 Long term (current) use of aspirin; Z79.4 Long term (current) use of insulin
CPT/HCPCS: 51702; 70450; 71045; 71250; 72125; 72170 ×2; 80048; 80076; 81003; 82550; 82553; 83735; 83880; 84484; 85025; 86850; 86900; 86901; 93005; 96374; 96375; 99285; J2405; J3010

== ENCOUNTER 2018-07-26 09:59 | Emergency (ER) | payer OTHER ==
--- OUTSIDE RECORDS SUMMARY | 2018-07-26 10:04 | XMS REPORT | Continuity of Care Document ---
:1945 Author Organization Interface Problems Problem Status Onset Classification Date Comments Source Date Reported MULTIPLE Active [facility] RIGHT SIDED 8 Medical RIB FX Center GO Active [facility] BILLING/ LFLT 8 Medical #[id number] Center MULTIPLE Active [facility] FRACTURES OF Medical RIBS, UNSP Center SIDE, I Medications Medication Details Route Status Patient Ordering Order Source Instructions Provider Date gabapentin 300 MG 300 mg=1 cap, Active [facility] Oral Capsule PO, BID, # 28 2018 Medical cap, 0 Center Refill(s) methocarbamol 500 1,000 mg=2 tab, Active 04/18[facility] [place] mg oral tablet PO, Q8H, X 14 2018 Medical day, # 84 tab, Center 0 Refill(s) Lidocaine 0.05 1 patch, TOP, Active 04/18[facility] MG/MG Transdermal Q24H, # 14 2018 Medical Patch patch, 0 Center Refill(s) Docusate Sodium 100 mg=1 cap, Active 04/18[facility] [place] 100 MG Oral PO, BID, # 28 2018 Medical Capsule [Colace] cap, 0 Center Refill(s) tramadol 50 mg=1 tab, Active 04/18[facility] hydrochloride 50 PO, Q6H, X 7 2018 Medical MG Oral Tablet day, # 28 tab, Center 0 Refill(s) polyethylene 17 gm, PO, BID, Active 04/18[facility] glycol 3350 oral X 14 day, # 12 2018 Medical powder for ea, 0 Refill(s) Center reconstitution Tacrolimus 0.5 mg, 1 cap, No Longer [facility] Route: PO, Drug Active 2018 Medical form: CAP, Center Bedtime, Dosing Weight 87.273, kg, Priority: NOW, Start date: 04/17/18 23:07:00 CDT, Stop date: 05/17/18 20:00:00 CDTNotes: Avoid grapefruit and grapefruit juice. (Same As: Prograf) Methadone 5 mg, 1 tab, No Longer [facility] Route: PO, Drug Active 2018 Medical form: TAB, Q8H, Center Dosing Weight 87.273, kg, Start date: 04/17/18 16:00:00 CDT, Duration: 30 day, Stop date: 05/17/18 8:00:00 CDTNotes: (Same as: Dolophine) Prograf 0.5 mg, 1 cap, No Longer [facility] Route: PO, Drug Active 2017 Medical form: CAP, QAM, Center Start date: 04/17/18 8:00:00 CDT, Duration: 30 day, Stop date: 05/16/18 8:00:00 CDTNotes: (Same As: Prograf) remove patch 1 patch, Route: No Longer [facility] TOP, Q24H, Drug Active 2017 Medical form: ERFILM, Center Start date: 04/17/18 6:00:00 CDT, Duration: 30 day, Stop date: 05/16/18 6:00:00 CDTNotes: Remove patch 12 hours after application each day. Prograf 1 mg, 1 cap, No Longer [facility] Route: PO, Drug Active 2017 Medical form: CAP, QPM, Center Start date: 04/16/18 20:00:00 CDT, Duration: 30 day, Stop date: 05/15/18 20:00:00 CDTNotes: (Same As: Prograf) Lidocaine 0.05 1 patch, Route: No Longer [facility] MG/MG Transdermal TOP, Q24H, Drug Active 2017 Medical Patch form: FILM, Center Start date: 04/16/18 18:00:00 CDT, Duration: 30 day, Stop date: 05/15/18 18:00:00 CDT tramadol 50 mg, 1 tab, No Longer [place] hydrochloride 50 Route: PO, Drug Active 2018 Medical MG Oral Tablet form: TAB, Q6H, Center Dosing Weight 87.273, kg, Start date: 04/16/18 18:00:00 CDT, Duration: 30 day, Stop date: 05/16/18 12:00:00 CDTNotes: Not to exceed 400mg/day. (Same As: Ultram) gabapentin 100 MG 300 mg, 1 cap, No Longer [facility] Oral Capsule Route: PO, Drug Active 2017 Medical form: CAP, BID, Center Dosing Weight 87.273, kg, Start date: 04/16/18 17:00:00 CDT, Duration: 30 day, Stop date: 05/16/18 9:00:00 CDTNotes: (Same as: Neurontin) Fosfomycin 3 gm, 1 pkt, Inactive [place] Route: PO, Drug 2017 Medical form: PDR/REC, Center ONCE, Dosing Weight 87.273, kg, Start date: 04/15/18 12:00:00 CDT, Stop date: 04/15/18 12:00:00 CDT, ABX Indication: Urinary Tract InfectionNotes: (Same as: Monural) mix w/ 90 to 120 ml (3 to 4 ounces) of water and stir to dissolve. Do not use hot water. Take immediately after dissolving in water. Methadone 5 mg, 1 tab, No Longer [facility] Route: PO, Drug Active 2017 Medical form: TAB, Q6H, Center Dosing Weight 87.273, kg, Start date: 04/15/18 12:00:00 CDT, Duration: 30 day, Stop date: 05/15/18 6:00:00 CDTNotes: (Same as: Dolophine) Protonix 40 mg, 1 tab, No Longer [facility] Route: PO, Drug Active 2017 Medical form: ECTAB, Center Before Dinner, Dosing Weight 87.273, kg, Start date: 04/14/18 16:30:00 CDT, Duration: 30 day, Stop date: 05/13/18 16:30:00 CDTNotes: Tablet should not be chewed or crushed. (Same as: Protonix) Methadone 5 mg, 1 tab, No Longer [facility] Route: PO, Drug Active 2017 Medical form: TAB, [place] Q8H-05, Dosing Weight 87.273, kg, Start date: 04/14/18 13:00:00 CDT, Duration: 30 day, Stop date: 05/14/18 5:00:00 CDTNotes: (Same as: Dolophine) Simethicone 80 mg, 1 tab, No Longer [facility] Route: CHEW, Active 2017 Medical Drug form: [place] CHEWTAB, TID, Dosing Weight 87.273, kg, PRN Gas, Start date: 04/13/18 20:35:00 CDT, Duration: 30 day, Stop date: 05/13/18 20:34:00 CDTNotes: (Same as: Mylicon) Isolyte S PH-7.4 500 mL, 125 Inactive [facility] (Bolus) IV ml/hr, Route: 2018 Medical IV, Drug Form: [place] LISA, Dosing Weight 87.273, kg, ONCE, Start date: 04/13/18 10:44:00 CDT, Stop date: 04/13/18 10:44:00 CDTNotes: (Same as: Isolyte S PH7.4) multivitamin 1 tab, PO, No Longer [facility] Daily Active 2017 [facility] Isolyte S PH-7.4 500 mL, 0 Inactive [facility] (Bolus) IV ml/hr, Route: 2018 Medical IV, Drug Form: [place] LISA, Dosing Weight 87.273, kg, ONCE, Start date: 04/13/18 5:06:00 CDT, Stop date: 04/13/18 5:06:00 CDTNotes: (Same as: Isolyte S PH 7.4) magnesium citrate 300 ml, Route: Inactive [facility] 58.2 MG/ML Oral PO, Drug Form: 2018 Medical Solution LIQ, Dosing Center Weight 87.273, kg, ONCE, Start date: 04/12/18 21:31:00 CDT, Stop date: 04/12/18 21:31:00 CDTNotes: (Same as: Citrate of Magnesia) Concentration: 1.745 gm / 30 mL molasses 240 mL, Route: Inactive [facility] [place], Drug Form: 2018 Medical SYRP, Dosing Center Weight 87.273, kg, ONCE, Milk of Molasses Enema, Start date: 04/12/18 17:21:00 CDT, Stop date: 04/12/18 17:21:00 CDTNotes: (Same as:Molasses) Flomax 0.4 mg, 1 cap, No Longer [facility] Route: PO, Drug Active 2017 Medical form: CAP, Center After Dinner, Dosing Weight 87.273, kg, Start date: 04/12/18 17:00:00 CDT, Duration: 30 day, Stop date: 05/11/18 17:00:00 CDTNotes: (Same As: Flomax) "Do Not Crush" Dulcolax Laxative 10 mg, 1 supp, No Longer [facility] Route: [place], Drug Active 2018 Medical form: SUPP, Center Daily, Dosing Weight 87.273, kg, PRN Constipation, Start date: 04/12/18 16:27:00 CDT, Duration: 30 day, Stop date: 05/12/18 16:26:00 CDTNotes: (Same As: Dulcolax, Bisco-Lax) remove patch 2 patch, Route: Inactive [facility] TOP, ONCE, Drug 2017 Medical form: ERFILM, Center Start date: 04/12/18 14:05:00 CDT, Stop date: 04/12/18 14:05:00 CDTNotes: Remove patch 12 hours after application each day. Fosfomycin 3 gm, 1 pkt, Inactive [place] Route: PO, Drug 2017 Medical form: PDR/REC, Center ONCE, Dosing Weight 87.273, kg, Start date: 04/12/18 12:00:00 CDT, Stop date: 04/12/18 12:00:00 CDT, ABX Indication: Urinary Tract InfectionNotes: (Same as: Monural) mix w/ 90 to 120 ml (3 to 4 ounces) of water and stir to dissolve. Do not use hot water. Take immediately after dissolving in water. Lidocaine 2 patch, Route: Inactive [facility] Hydrochloride 0.05 TOP, Daily, 2018 Medical MG/MG Transdermal Drug form: Center Patch [Lidoderm] FILM, Start date: 04/12/18 12:00:00 CDT, Duration: 30 day, Stop date: 05/11/18 12:00:00 CDT, Remove after 12 hoursNotes: Apply only once for up to 12 hours in a 24-hour period (12 hours on and 12 hours off). (Same as: Lidoderm) "Remove old patch before application of new patch" Oxycodone 10 mg, 2 tab, Inactive [facility] Hydrochloride 5 MG Route: PO, Drug 2018 Medical Oral Tablet form: TAB, Q4H, Center Dosing Weight 87.273, kg, PRN Pain Score 7-10, Start date: 04/12/18 10:29:00 CDT, Duration: 30 day, Stop date: 05/12/18 10:28:00 CDTNotes: (Same as: Roxicodone) gabapentin 100 MG 100 mg, 1 cap, No Longer [facility] Oral Capsule Route: PO, Drug Active 2017 Medical form: CAP, Q8H, Center Dosing Weight 87.273, kg, Start date: 04/11/18 16:00:00 CDT, Duration: 30 day, Stop date: 05/11/18 8:00:00 CDTNotes: (Same as: Neurontin) Flomax 0.4 mg, 1 cap, No Longer [facility] Route: PO, Drug Active 2017 Medical form: CAP, Center After Breakfast, Dosing Weight 87.273, kg, Start date: 04/11/18 8:30:00 CDT, Duration: 30 day, Stop date: 05/10/18 8:30:00 CDTNotes: (Same As: Flomax) "Do Not Crush" sennosides, FDC 17.2 mg, 2 tab, No Longer [facility] Route: PO, Drug Active 2017 Medical Form: TAB, Center Dosing Weight 87.273, kg, BID, Start date: 04/10/18 17:00:00 CDT, Duration: 30 day, Stop date: 05/10/18 9:00:00 CDTNotes: (Same as: Senokot) Miralax 17 gm, 1 pkt, No Longer [facility] Route: PO, Drug Active 2017 Medical form: PWDR, Center BID, Dosing Weight 87.273, kg, Start date: 04/10/18 17:00:00 CDT, Duration: 30 day, Stop date: 05/10/18 9:00:00 CDTNotes: Dissolve in 8 oz of water or juice. (Same as: Miralax) Oxycodone 5 mg, 1 tab, No Longer [place] Hydrochloride 5 MG Route: PO, Drug Active 2017 Medical Oral Tablet form: TAB, Q6H, Center Dosing Weight 87.273, kg, Start date: 04/10/18 12:00:00 CDT, Duration: 30 day, Stop date: 05/10/18 6:00:00 CDTNotes: (Same as: Roxicodone) Bupivacaine 20 mL, Route: Inactive [facility] liposome InFILtration(lo 2018 Medical jacquelyn), Drug Center Form: INJ, Dosing Weight 87.273, kg, ONCALL, For Hemorrhoidectom y, Start date: 04/10/18 12:00:00 CDT, Duration: 30 day, Stop date: 05/10/18 11:59:00 CDTNotes: (Same as: Exparel) NOT FOR IV use Postoperative analgesia: Infiltration (local): Dose is based on surgical site and volume required to cover the area (in general, the maximum total dose is 266 mg). Bunionectomy: 7 mL into the tissues surrounding the osteotomy and 1 mL into the subcutaneous tissue of the surgical site (total dose=8 mL [106 mg]) Hemorrhoidectom y: 30 mL (20 mL vial diluted with 10 mL NS) divided and administered as 6 injections of 5 mL each (total dose=30 mL [266 mg]) Dulcolax Laxative 10 mg, 1 supp, Inactive [facility] Route: [place], Drug 2017 Medical form: SUPP, [place] ONCE, Dosing Weight 87.273, kg, Priority: NOW, Start date: 04/10/18 11:54:00 CDT, Stop date: 04/10/18 11:54:00 CDTNotes: (Same As: Dulcolax, Bisco-Lax) Alprazolam 0.5 MG 0.5 mg, 1 tab, No Longer [facility] Oral Tablet Route: PO, Drug Active 2018 Medical [Xanax] form: TAB, TID, Center Dosing Weight 87.273, kg, PRN Anxiety, Start date: 04/10/18 11:37:00 CDT, Duration: 30 day, Stop date: 05/10/18 11:36:00 CDTNotes: With food or milk (Same as: Xanax) Aspirin 81 MG 81 mg, 1 tab, No Longer [facility] Enteric Coated Route: PO, Drug Active 2017 Medical Tablet form: ECTAB, [place] Daily, Dosing Weight 87.273, kg, Start date: 04/10/18 9:00:00 CDT, Duration: 30 day, Stop date: 05/09/18 9:00:00 CDTNotes: Do not crush or chew. (Same As: Ecotrin) sennosides, FDC 17.2 mg, 2 tab, Inactive [place] Route: PO, Drug 2017 Medical Form: TAB, Center Dosing Weight 87.273, kg, Daily, Start date: 04/10/18 9:00:00 CDT, Duration: 30 day, Stop date: 05/09/18 9:00:00 CDTNotes: (Same as: Senokot) Miralax 17 gm, 1 pkt, Inactive [place] Route: PO, Drug 2017 Medical form: PWDR, Center Daily, Dosing Weight 87.273, kg, Start date: 04/10/18 9:00:00 CDT, Duration: 30 day, Stop date: 05/09/18 9:00:00 CDTNotes: Dissolve in 8 oz of water or juice. (Same as: Miralax) Imdur 30 mg, 1 tab, No Longer [place] Route: PO, Drug Active 2017 Medical form: ERTAB, Center QAM, Dosing Weight 87.273, kg, Start date: 04/10/18 9:00:00 CDT, Duration: 30 day, Stop date: 05/09/18 9:00:00 CDTNotes: (Same as:Imdur) "Do Not Crush" Take on empty stomach/ full glass of water. Do not crush torsemide 20 mg, 1 tab, No Longer [place] Route: PO, Drug Active 2017 Medical form: TAB, Center Daily, Dosing Weight 87.273, kg, Start date: 04/10/18 9:00:00 CDT, Duration: 30 day, Stop date: 05/09/18 9:00:00 CDTNotes: (Same As: Demadex) Alprazolam 0.5 MG 0.5 mg, 1 tab, No Longer [place] Oral Tablet Route: PO, Drug Active 2017 Medical [Xanax] form: TAB, Center Bedtime, Dosing Weight 87.273, kg, PRN Sleep, Start date: 04/09/18 22:31:00 CDT, Duration: 30 day, Stop date: 05/09/18 22:30:00 CDTNotes: With food or milk (Same as: Xanax) Pravastatin 80 mg, 4 tab, No Longer [facility] Route: PO, Drug Active 2018 Medical form: TAB, Center Bedtime, Dosing Weight 87.273, kg, Start date: 04/09/18 21:00:00 CDT, Duration: 30 day, Stop date: 05/08/18 21:00:00 CDTNotes: (Same as: Pravachol) Sulfamethoxazole 1 tab, Route: No Longer [place] 800 MG / PO, Drug Form: Active 2018 Medical Trimethoprim 160 TAB, Dosing Center MG Oral Tablet Weight 87.273, [Bactrim] kg, [id number], NOW, Start date: 04/09/18 17:28:00 CDT, Duration: 5 day, Stop date: 04/14/18 5:28:00 CDTNotes: One DS tablet=trimetho prim 160mg + sulfamethoxazol e 800 mg Dose based on trimethoprim component On empty stomach with a glass of water. (Same As: Bactrim DS, Septra DS) Docusate Sodium 100 mg, 1 cap, No Longer [place] 100 MG Oral Route: PO, Drug Active 2017 Medical Capsule [Colace] form: CAP, BID, Center Dosing Weight 87.273, kg, Start date: 04/09/18 17:00:00 CDT, Duration: 30 day, Stop date: 05/09/18 9:00:00 CDTNotes: (Same as: Colace) (Do Not Crush) Oxycodone 10 mg, 2 tab, No Longer [place] Hydrochloride 5 MG Route: PO, Drug Active 2018 Medical Oral Tablet form: TAB, Q4H, Center Dosing Weight 87.273, kg, Start date: 04/09/18 16:00:00 CDT, Duration: 30 day, Stop date: 05/09/18 12:00:00 CDTNotes: (Same as: Roxicodone) Lasix 20 mg, 2 mL, Inactive [facility] Route: IV, Drug 2018 Medical form: INJ, Center ONCE, Start date: 04/09/18 12:05:00 CDT, Stop date: 04/09/18 12:05:00 CDTNotes: (Same as: Lasix) Oxycodone 5 mg, 1 tab, No Longer [facility] Hydrochloride 5 MG Route: PO, Drug Active 2017 Medical Oral Tablet form: TAB, Q4H, Center kg, PRN Pain Score 4-6, Start date: 04/09/18 12:02:00 CDT, Stop date: 05/09/18 12:01:00 CDTNotes: (Same as: Roxicodone) torsemide 20 mg, Route: Inactive [facility] IVPB, ONCE, 2018 Medical Dosing Weight Center 87.273, kg, Priority: NOW, Start date: 04/09/18 12:00:00 CDT, Stop date: 04/09/18 12:00:00 CDT Dulcolax Laxative 10 mg, 1 supp, No Longer [place] Route: [place], Drug Active 2017 Medical form: SUPP, Center Daily, Dosing Weight 87.273, kg, PRN Constipation, Start date: 04/09/18 10:36:00 CDT, Duration: 30 day, Stop date: 05/09/18 10:35:00 CDTNotes: (Same As: Dulcolax, Bisco-Lax) Labetalol 100 mg, 1 tab, No Longer [facility] Route: PO, Drug Active 2017 Medical form: TAB, Center Q12H, Dosing Weight 87.273, kg, Priority: NOW, Start date: 04/09/18 10:29:00 CDT, Duration: 30 day, Stop date: 05/09/18 9:00:00 CDTNotes: With food. (Same as:Trandate, Normodyne) Insulin regular 5 unit, 0.05 No Longer [facility] mL, Route: Active 2018 Medical SUB-Q, Drug Center form: SOLN, TID-Before Meals, Dosing Weight 87.273, kg, PRN Blood Glucose Results, Start date: 04/09/18 10:22:00 CDT, Duration: 30 day, Stop date: 05/09/18 10:21:00 CDTNotes: (Same as: Humulin R) Roll in palms of hands gently; Do not shake vigorously. "single patient use only" (Restricted to patients requiring a dose > 60 units) WASTE: F/P - Black; E - Municipal Trash Bin Stable for 28 days at room temperature Expires in days from D ate Glucagon 1 mg, Route: No Longer [place] IM, Drug form: Active 2018 Medical PDR/INJ, PRN, Center Dosing Weight 87.273, kg, PRN Blood Glucose Results, Start date: 04/09/18 10:22:00 CDT, Duration: 30 day, Stop date: 05/09/18 10:21:00 CDT Dextrose 50% 25 gm, 50 mL, No Longer [place] Syringe Route: IVP, Active 2018 Medical Drug Form: INJ, Center Dosing Weight 87.273, kg, PRN, PRN Blood Glucose Results, Start date: 04/09/18 10:22:00 CDT, Duration: 30 day, Stop date: 05/09/18 10:21:00 CDT Oxycodone 5 mg, 1 tab, Inactive [place] Hydrochloride 5 MG Route: PO, Drug 2018 Medical Oral Tablet form: TAB, Q4H, Center Dosing Weight 87.273, kg, Priority: NOW, Start date: 04/09/18 9:31:00 CDT, Duration: 30 day, Stop date: 05/09/18 8:00:00 CDTNotes: (Same as: Roxicodone) gabapentin 300 MG 300 mg, 1 cap, Inactive [facility] Oral Capsule Route: PO, 2018 Medical ONCE, Dosing Center Weight 87.273, kg, Start date: 04/09/18 8:42:00 CDT, Stop date: 04/09/18 8:42:00 CDT Robaxin 1,000 mg, 2 No Longer [place] tab, Route: PO, Active 2018 Medical Drug form: TAB, Center Q8H, Dosing Weight 87.273, kg, Start date: 04/09/18 8:00:00 CDT, Stop date: 05/09/18 0:00:00 CDTNotes: (Same as:Robaxin) Tramadol 50 mg, 1 tab, Inactive [place] Route: PO, Drug 2018 Medical form: TAB, Q6H, Center Dosing Weight 87.273, kg, Start date: 04/09/18 4:00:00 CDT, Duration: 30 day, Stop date: 05/09/18 0:00:00 CDTNotes: Not to exceed 400mg/day. (Same As: Ultra) Streptococcus 0.5 mL, Route: No Longer [place] pneumoniae IM, Drug Form: Active 2018 Medical serotype 1 INJ, ONCALL, [place] capsular antigen Start date: diphtheria [id number] 04/08/18 protein conjugate 22:20:12 CDT, vaccine / Stop date: Streptococcus 05/08/18 pneumoniae 22:15:12 serotype 14 CDTNotes: Shake capsular antigen well prior to diphtheria [id number] use (Same as: protein conjugate Prevnar 13) vaccine / Streptococcus pneumoniae serotype 18C capsular antigen d remove patch 1 patch, Route: No Longer [place] TOP, Daily, Active 2017 Medical Drug form: [place] ERFILM, Start date: 04/08/18 16:00:00 CDT, Duration: 30 day, Stop date: 05/07/18 16:00:00 CDTNotes: Remove patch 12 hours after application each day. Esomeprazole 20 MG 20 mg=1 cap, No Longer [place] Enteric Coated PO, Daily, 0 2017 Medical Capsule [Nexium] Refill(s) [facility] montelukast 10 MG 10 mg=1 tab, No Longer [place] Oral Tablet PO, PRN, 0 2017 Medical [Singulair] Refill(s) Center Alprazolam 0.5 MG 0.5 mg=1 tab, No Longer [place] Oral Tablet PO, Daily, 0 2017 Medical Refill(s) Center Ferrousal 325 mg 325 mg=1 tab, No Longer [place] oral tablet PO, Daily, 0 2017 Medical Refill(s) Center tamsulosin 0.4 mg 0.4 mg=1 cap, No Longer [place] oral capsule PO, Daily, 0 2017 Medical Refill(s) Center isosorbide 30 mg=1 tab, No Longer [place] mononitrate 30 mg PO, QAM, 0 2017 Medical oral tablet, Refill(s) Center extended release potassium chloride 10 mEq=1 tab, No Longer [place] 10 mEq oral PO, Daily, 0 Active 2017 Medical tablet, extended Refill(s) Center release torsemide 20 mg 20 mg=1 tab, No Longer [place] oral tablet PO, BID, 0 Active 2017 Medical Refill(s) Center gabapentin 300 MG 300 mg=1 cap, No Longer [place] Oral Capsule PO, TID, 0 Active 2017 Medical Refill(s) Center Metolazone 2.5 MG 2.5 mg=1 tab, No Longer [place] Oral Tablet PO, Daily, 0 Active 2017 Medical Refill(s) Center amLODIPine 5 mg 5 mg=1 tab, PO, No Longer [place] oral tablet Daily, 0 Active 2017 Medical Refill(s) Center labetalol 100 mg 100 mg=1 tab, No Longer [place] oral tablet PO, BID, 0 Active 2017 Medical Refill(s) Center pravastatin 80 mg 80 mg=1 tab, No Longer [place] oral tablet PO, Daily, 0 Active 2017 Medical Refill(s) Center allopurinol 100 mg 100 mg=1 tab, No Longer [place] oral tablet PO, BID, 0 Active 2017 Medical Refill(s) Center magnesium oxide 400 mg=1 tab, No Longer [place] 400 mg oral tablet PO, BID, 0 Active 2017 Medical Refill(s) Center Folic Acid 1 MG 1 mg=1 tab, PO, No Longer [place] Oral Tablet Daily, 0 Active 2017 Medical Refill(s) Center Fish Oil 1000 mg 1,000 mg=1 cap, No Longer [facility] oral capsule PO, BID, 0 Active 2017 Medical Refill(s) Center thiamine 100 mg 100 mg=1 tab, No Longer [place] oral tablet PO, Daily, 0 Active 2017 Medical Refill(s) Center multivitamin Daily, 0 No Longer [facility] Refill(s) Active 2018 Medical Center Calcium Carbonate 1 tab, PO, BID, No Longer [place] 1500 MG / 0 Refill(s) Active 2018 Medical Cholecalciferol Center 400 UNT Oral Tablet Aspirin 81 MG 81 mg=1 tab, No Longer [facility] Chewable Tablet CHEW, Daily, 0 Active 2017 Medical Refill(s) Center NovoLIN 70/30 24 unit, SUB-Q, No Longer [facility] QPM, 0 Active 2017 Medical Refill(s) Center NovoLIN 70/30 18 unit, SUB-Q, No Longer [facility] QAM, 0 Active 2017 Medical Refill(s) Center predniSONE 5 mg 5 mg=1 tab, PO, No Longer [facility] oral tablet Daily, 0 Active 2017 Medical Refill(s) Center tacrolimus 0.5 mg 0.5 mg=1 cap, No Longer [facility] oral capsule PO, Q12H, 0 Active 2017 Medical Refill(s) Center Prednisone 5 mg, 1 tab, No Longer [facility] Route: PO, Drug Active 2017 Medical form: TAB, Center Daily, kg, Start date: 04/08/18 9:00:00 CDT, Duration: 30 day, Stop date: 05/07/18 9:00:00 CDTNotes: Take with food. Tacrolimus 0.5 mg, 1 cap, No Longer [facility] Route: PO, Drug Active 2017 Medical form: CAP, Center [id number], kg, Start date: 04/08/18 8:00:00 CDT, Duration: 30 day, Stop date: 05/07/18 20:00:00 CDTNotes: Avoid grapefruit and grapefruit juice. (Same As: Prograf) heparin sodium, 5,000 unit, 1 No Longer [facility] porcine 2500 mL, Route: Active 2018 Medical UNT/ML Injectable SUB-Q, Drug Center Solution form: INJ, Q8H, kg, Start date: 04/08/18 8:00:00 CDT, Duration: 30 day, Stop date: 05/08/18 0:00:00 CDTNotes: porcine heparin acetaminophen 1 gm, 2 tab, No Longer [facility] Route: PO, Drug Active 2017 Medical form: TAB, Q6H, Center kg, Priority: NOW, Start date: 04/08/18 7:23:00 CDT, Duration: 30 day, Stop date: 05/08/18 0:00:00 CDTNotes: Max acetaminophen 4000 mg/day (4 gm/day). (Same as: Tylenol Extra Strength) iodixanol 100 mL, Route: Inactive [facility] IVP, Drug Form: 2018 Medical SOLN, kg, [place] ONCALL, STAT, Start date: 04/08/18 3:59:00 CDT, Duration: 1 doses or times, Dose=2.2ml/kg, Max [id number] -- "To be infused by Radiology Staff ONLY" Lidocaine 2 patch, Route: No Longer [facility] Hydrochloride 0.05 TOP, Q24H, Drug Active 2017 Medical MG/MG Transdermal form: FILM, [place] Patch [Lidoderm] Start date: 04/08/18 2:00:00 CDT, Stop date: 05/07/18 2:00:00 CDTNotes: (Same as: Lidoderm) "Remove old patch before application of new patch" Oxycodone 10 mg, 2 tab, No Longer [facility] Hydrochloride 5 MG Route: PO, Drug Active 2017 Medical Oral Tablet form: TAB, Q4H, [facility], PRN Pain Score 7-10, Start date: 04/08/18 1:48:00 CDT, Duration: 30 day, Stop date: 05/08/18 1:47:00 CDTNotes: (Same as: Roxicodone) Tramadol 50 mg, 1 tab, No Longer [facility] Route: PO, Drug Active 2017 Medical form: TAB, Q8H, [place] kg, PRN Pain Score 4-6, Do NOT use for patients with a past medical history of seizures, Start date: 04/08/18 1:48:00 CDT, Duration: 30 day, Stop date: 05/08/18 1:47:00 CDTNotes: Not to exceed 400mg/day. (Same As: Ultram) gabapentin 300 mg, 1 cap, No Longer [facility] Route: PO, Drug Active 2017 Medical form: CAP, Q8H, [place] kg, Priority: NOW, Start date: 04/08/18 1:46:00 CDT, Stop date: 05/08/18 0:00:00 CDTNotes: (Same as: Neurontin) Acetaminophen 1 gm, 2 tab, Inactive [facility] Route: PO, Drug 2017 Medical form: TAB, Center Q6H-02, kg, Priority: NOW, Start date: 04/08/18 1:46:00 CDT, Duration: 30 day, Stop date: 05/07/18 20:00:00 CDTNotes: Max acetaminophen 4000 mg/day (4 gm/day). (Same as: Tylenol Extra Strength) Fentanyl 100 microgram, No Longer [facility] 2 mL, Route: Active 2018 Medical IVP, Drug form: Center INJ, ONCE, kg, Priority: STAT, Start date: 04/07/18 23:37:00 CDT, Stop date: 04/07/18 23:37:00 CDTNotes: (Same as: Sublimaze) Preservative free. Saline Flush 0.9% 10 mL, Route: No Longer [facility] IVP, Drug Form: Active 2018 Medical INJ, kg, PRN, [place] PRN Line Flush, Start date: 04/07/18 23:37:00 CDT, Duration: 30 day, Stop date: 05/07/18 23:36:00 CDTNotes: (Same as: BD Posiflush) Allergies, Adverse Reactions, Alerts Substance Category Reaction Severity Reaction Status Date Comments Source type Reported Immunizations Immunization Date Given Site Status Last Updated Comments Source Results Order Name Results Value Reference Date Interpretation Comments Source Range CHEM PANEL Creatinine 1.61 mg/dL 0.50 - 04/17 [facility] Lvl 1.40 /2017 [facility] CHEM PANEL eGFR 42 04/17 Result Comment: The eGFR is calculated using the CKD-EPI formula. In most young, healthy individuals the eGFR will be >90 mL/ min/1.73m2. The eGFR declines with age. An eGFR of 60-89 may be normal in [facility] mL/min/1.7 /2017 some populations, particularly the elderly, for whom the CKD-EPI formula has not been extensively validated. Use of the eGFR is not recommended in the following populations: [address] Individuals with unstable creatinine concentrations, including patients and those with serious co-morbid conditions. Patients with extremes in muscle mass or diet. The data above are obtained from the National Kidney Disease Education Program (NKDEP) which additionally recommends that when the eGFR is used in patients with extremes of body mass index for purposes of drug dosing, the eGFR should be multiplied by the estimated BMI. CHEM PANEL BUN 53 mg/dL 04/[address] CHEM PANEL Glucose Lvl 146 mg/dL 70 - 99 04/[address] CHEM PANEL Sodium Lvl 134 meq/L 135 - 145 04/[address] CHEM PANEL Potassium Lvl 4.9 meq/L 3.5 - 5.1 04/[address] CHEM PANEL Chloride Lvl 99 meq/L 95 - 109 04/[address] CHEM PANEL CO2 25 meq/L 04/[address] CHEM PANEL Calcium Lvl 8.6 mg/dL 8.5 - 10.5 04/[address] CHEM PANEL AGAP 14.9 meq/L 10.0 - 04/17 [facility] 20. [facility] CHEM PANEL Glucose Lvl 125 mg/dL 70 - 99 04/[address] CHEM PANEL Creatinine 1.65 mg/dL 0.50 - 04/16 [facility] Lvl 1.40 [facility] CHEM PANEL BUN 51 mg/dL 04/[address] CHEM PANEL Chloride Lvl 100 meq/L 95 - 109 04/[address] CHEM PANEL Sodium Lvl 136 meq/L 135 - 145 04/[address] CHEM PANEL CO2 27 meq/L 04/[address] CHEM PANEL Potassium Lvl 5.2 meq/L 3.5 - 5.1 04/[address] CHEM PANEL eGFR 40 04/16 Result Comment: The eGFR is calculated using the CKD-EPI formula. In most young, healthy individuals the eGFR will be >90 mL/ min/1.73m2. The eGFR declines with age. An eGFR of 60-89 may be normal in [facility] mL/min/1. some populations, particularly the elderly, for whom the CKD-EPI formula has not been extensively validated. Use of the eGFR is not recommended in the following populations: [address] Individuals with unstable creatinine concentrations, including patients and those with serious co-morbid conditions. Patients with extremes in muscle mass or diet. The data above are obtained from the National Kidney Disease Education Program (NKDEP) which additionally recommends that when the eGFR is used in patients with extremes of body mass index for purposes of drug dosing, the eGFR should be multiplied by the estimated BMI. CHEM PANEL AGAP 14.2 meq/L 10.0 - 04/16 [facility] . [facility] CHEM PANEL Calcium Lvl 8.4 mg/dL 8.5 - 10.5 04/[address] CHEM PANEL eGFR 37 04/15 Result Comment: The eGFR is calculated using the CKD-EPI formula. In most young, healthy individuals the eGFR will be >90 mL/ min/1.73m2. The eGFR declines with age. An eGFR of 60-89 may be normal in [facility] mL/min/1.7 some populations, particularly the elderly, for whom the CKD-EPI formula has not been extensively validated. Use of the eGFR is not recommended in the following populations: [address] Individuals with unstable creatinine concentrations, including patients and those with serious co-morbid conditions. Patients with extremes in muscle mass or diet. The data above are obtained from the National Kidney Disease Education Program (NKDEP) which additionally recommends that when the eGFR is used in patients with extremes of body mass index for purposes of drug dosing, the eGFR should be multiplied by the estimated BMI. CHEM PANEL Potassium Lvl 5.6 meq/L 3.5 - 5.1 04/[address] CHEM PANEL Chloride Lvl 99 meq/L 95 - 109 04/[address] CHEM PANEL CO2 29 meq/L 24 - 32 04/[address] CHEM PANEL Calcium Lvl 8.9 mg/dL 8.5 - 10.5 04/[address] CHEM PANEL AGAP 14.6 meq/L 10.0 - 04/15 [facility] . [facility] CHEM PANEL BUN 56 mg/dL 7 - 22 04/[address] CHEM PANEL Glucose Lvl 153 mg/dL 70 - 99 04/[address] CHEM PANEL Sodium Lvl 137 meq/L 135 - 145 04/[address] CHEM PANEL Creatinine 1.77 mg/dL 0.50 - 04/15 [facility] Lvl 1.40 [facility] CHEM PANEL Phosphorus 4.1 mg/dL 2.5 - 4.5 04/[address] CHEM PANEL Magnesium Lvl 2.8 mg/dL 1.8 - 2.4 04/13 [facility] HEMATOLOGY Segs 87.0 % 45.0 - 04/13 [facility] 75.0 /2017 [facility] HEMATOLOGY Segs-Bands # 6.6 K/CMM 1.5 - 8.1 04/[address] HEMATOLOGY Lymphocytes 7.0 % 20.0 - 04/13 [place] 40.0 [facility] HEMATOLOGY Monocytes 6.0 % 2.0 - 12.0 04/[address] HEMATOLOGY Lymphocytes # 0.6 K/CMM 1.0 - 5.5 04/[address] HEMATOLOGY Monocytes # 0.4 K/CMM 0.0 - 0.8 04/[address] HEMATOLOGY MCH 32.6 pg 27.0 - 04/13 [facility] 31.0 [facility] HEMATOLOGY MCHC 33.9 g/dL 32.0 - 04/13 [facility] 36.0 [facility] HEMATOLOGY RDW 15.3 % 11.5 - 04/13 [facility] 14.5 [facility] HEMATOLOGY Platelet 136 K/CMM 133 - 450 04/[address] HEMATOLOGY MPV 9.6 fL 7.4 - 10.4 04/[address] HEMATOLOGY WBC X 10x3 7.6 K/CMM 3.7 - 10.4 04/[address] HEMATOLOGY Hct 31.0 % 42.0 - 04/13 [facility] 54.0 [facility] HEMATOLOGY MCV 96.1 fL 80.0 - 04/13 [facility] 94.0 [facility] HEMATOLOGY RBC X 10x6 3.22 M/CMM 4.70 - 04/13 [facility] 6.10 [facility] HEMATOLOGY Hgb 10.5 g/dL 14.0 - 04/13 [facility] 18.0 [facility] Chest 1view Chest 1view EXAM: XR CHEST 1 VIEW 04/13 - [facility] DX DX [facility] DATE: 04/13/2018 Read by: Debra Bell MD Dictated Date/time: 04/13/18 08:19 Electronically Signed by: Debra Bell MD 04/13/18 08:21 FINAL REPORT INDICATION: Trauma - multiple R rib fxs . Comparison is made with yesterday FINDINGS: Cardiomediastinal silhouette and sternal wires are unchanged. Bilateral pleural effusions are unchanged. Lung volumes are low. Is platelike atelectasis at both lung bases. Otherwise, the lungs are clear IMPRESSION: No significant interval change when compared to prior radiograph. CHEM PANEL Phosphorus 3.6 mg/dL 2.5 - 4.5 04/[address] [place] [address] CHEM PANEL Magnesium Lvl 2.4 mg/dL 1.8 - 2.4 04/12 2017 [facility] HEMATOLOGY Segs 84.1 % 45.0 - 04/12 [place] 75.0 [facility] HEMATOLOGY Lymphocytes # 0.9 K/CMM 1.0 - 5.5 04/12 [facility]2017 [facility] HEMATOLOGY Basophils 0.2 % 0.0 - 1.0 04/12 2017 [facility] HEMATOLOGY Eosinophils 0.4 % 0.0 - 4.0 04/[address] HEMATOLOGY Segs-Bands # 9.2 K/CMM 1.5 - 8.1 04/[address] HEMATOLOGY Monocytes 6.7 % 2.0 - 12.0 04/[address] HEMATOLOGY Lymphocytes 8.6 % 20.0 - 04/12 [place] 40.0 [facility] HEMATOLOGY Monocytes # 0.7 K/CMM 0.0 - 0.8 04/[address] HEMATOLOGY Platelet 116 K/CMM 133 - 450 04/[address] HEMATOLOGY RDW 15.3 % 11.5 - 04/12 [place] 14.5 [facility] HEMATOLOGY MCV 96.8 fL 80.0 - 04/12 [place] 94.0 [facility] HEMATOLOGY MCH 31.8 pg 27.0 - 04/12 [place] 31.0 [facility] HEMATOLOGY Hgb 10.6 g/dL 14.0 - 04/12 [place] 18.0 [facility] HEMATOLOGY RBC 3.32 M/CMM 4.70 - 04/12 [place] 6.10 [facility] HEMATOLOGY MCHC 32.8 g/dL 32.0 - 04/12 [place] 36.0 [facility] HEMATOLOGY Hct 32.2 % 42.0 - 04/12 [place] 54.0 [facility] HEMATOLOGY MPV 9.7 fL 7.4 - 10.4 04/[address] HEMATOLOGY WBC 10.9 K/CMM 3.7 - 10.4 04/[address] Chest 1view Chest 1view EXAM: XR CHEST 1 VIEW 04/12 - [facility] DX DX - [facility] DATE: 04/12/2018 3:00 AM CDT Read by: Morena Quinn MD Dictated Date/time: 04/12/18 08:40 Electronically Signed by: Morena Quinn MD 04/12/18 08:42 FINAL REPORT INDICATION: effusion - effusion COMPARISON: Chest radiograph April 11, 2018 at 1:12 AM. TECHNIQUE: AP chest. FINDINGS: Redemonstration of postsurgical changes. Stable enlarged cardiac mediastinal silhouette. Stable small bilateral pleural effusions. The lung volumes are low. Bilateral basilar opacities are likely subsegmental atelectasis, although superimposed infection cannot be excluded. IMPRESSION: 1. No significant change from prior chest radiograph. HEMATOLOGY Lymphocytes 7.8 % 20.0 - 04/11 [facility] 40.0 [facility] HEMATOLOGY Monocytes 7.6 % 2.0 - 12.0 04/[address] HEMATOLOGY Eosinophils 0.6 % 0.0 - 4.0 04/[address] HEMATOLOGY Segs-Bands # 9.1 K/CMM 1.5 - 8.1 04/[address] HEMATOLOGY Basophils 0.2 % 0.0 - 1.0 04/[address] HEMATOLOGY Lymphocytes # 0.8 K/CMM 1.0 - 5.5 04/[address] HEMATOLOGY Monocytes # 0.8 K/CMM 0.0 - 0.8 04/[address] HEMATOLOGY Eosinophils # 0.1 K/CMM 0.0 - 0.5 04/[address] HEMATOLOGY Segs 83.8 % 45.0 - 04/11 [facility] 75.0 [facility] HEMATOLOGY RBC 3.33 M/CMM 4.70 - 04/11 [facility] 6.10 [facility] HEMATOLOGY WBC 10.8 K/CMM 3.7 - 10.4 04/[address] HEMATOLOGY RDW 15.2 % 11.5 - 04/11 [facility] 14. [facility] HEMATOLOGY Platelet 118 K/CMM 133 - 450 04/11 [facility] HEMATOLOGY MPV 9.6 fL 7.4 - 10.4 04/11 [facility] HEMATOLOGY MCHC 33.5 g/dL 32.0 - 04/11 36.0 [facility] HEMATOLOGY MCH 32.3 pg 27.0 - 04/11 31.0 [facility] HEMATOLOGY Hct 32.1 % 42.0 - 04/11 54.0 [facility] HEMATOLOGY MCV 96.2 fL 80.0 - 04/11 [facility] 94.0 [facility] HEMATOLOGY Hgb 10.8 g/dL 14.0 - 04/11 [facility] 18.0 [facility] Abdomen AP Abdomen AP DX EXAM: XR ABDOMEN 1 VIEW 04/11 [facility] DATE: 04/11/2018 3:00 AM CDT Read by: Edin Rebolledo MD Dictated Date/time: 04/11/18 10:49 Electronically Signed by: Edin Rebolledo MD 04/11/18 10:51 FINAL REPORT INDICATION: dilated bowel - dilated bowel ADDITIONAL INFORMATION: None. COMPARISON: KUB 04/10/2018 at 1055 hours TECHNIQUE: Frontal images of the abdomen=3. FINDINGS: Lines and tubes: Redemonstrated median sternotomy wires, overlying EKG leads. Surgical clips project over the left upper quadrant. Partially seen IVC filter projecting to the right of the lumbar spine. Surgical clips project over the right issue pubic ramus. Lower thorax: Bibasilar atelectasis. Bowel: Persistent moderate gaseous distention of the stomach. Gaseous distention of the nondilated small and large bowel loops. Moderate stool within the transverse colon and splenic flexure. Solid organs: No abnormal mass or organomegaly seen. Calcifications: Vascular calcifications. Bones: Degenerative changes of the thoracolumbar spine. IMPRESSION: 1. Persistent moderate gaseous distention of the stomach. Patient may benefit from NG tube decompression. 2. Nonobstructive bowel gas pattern. Moderate stool. Chest 1view Chest 1view EXAM: XR CHEST 1 VIEW 04/11 [facility] DATE: 04/11/2018 3:00 AM CDT Read by: Joyce Olsen MD Dictated Date/time: 04/11/18 11:54 Electronically Signed by: Joyce Olsen MD 04/11/18 11:55 FINAL REPORT INDICATION: pleural effusion - pleural effusion. FINDINGS: Comparison is made to April 10. Cardiomediastinal silhouette and postoperative changes are unchanged. Small bilateral pleural effusions. Bilateral lower lobe subsegmental atelectasis. IMPRESSION: No significant change. Abdomen AP Abdomen AP DX EXAM: XR ABDOMEN 1 VIEW 04/10 - [facility] DATE: 04/10/2018 7:52 AM CDT Read by: Gauri Ryan MD Dictated Date/time: 04/11/18 09:46 Electronically Signed by: Gauri Ryan MD 04/11/18 09:47 FINAL REPORT INDICATION: dilated bowel - dilated bowel COMPARISON: None. TECHNIQUE: AP view of the abdomen. FINDINGS: The stomach is moderately gas distended. Bowel: No dilated small bowel loops. Moderate volume ascending colonic stool. Solid organs: No organomegaly. No abnormal calcifications found. Bones: Unremarkable. IMPRESSION: Moderately gas-distended stomach. Chest 1view Chest 1view EXAM: XR CHEST 1 VIEW 04/10 - [facility] DATE: 04/10/2018 3:00 AM CDT Read by: Ariel Moreno MD Dictated Date/time: 04/10/18 10:58 Electronically Signed by: Ariel Moreno MD 04/10/18 10:59 FINAL REPORT INDICATION: L pleural effusion - L pleural effusion COMPARISON: 04/09/2018 TECHNIQUE: AP chest IMPRESSION: 1. Prominent lung reticulations again seen bilaterally with patchy airspace opacities suggestive of infectious process or pulmonary edema, findings are stable compared to previous study. 2. Again seen is elevation of the left hemidiaphragm with left basilar atelectatic changes. 3. Small bilateral pleural effusions. 4. Cardiomediastinal silhouette is enlarged, unchanged. Aortic atherosclerotic disease. 5. Osseous structures are stable. DRUG SCREEN U Amph Scr Negative Negative 04/09 [facility] *NA* Center (04/09/18 1:42 PM) DR[facility] SCREEN [facility]04[facility]09[facility]18 1:42 PM[facility] DRUG SCREEN U Phencyc [facility]r Negative Negative [facility] [place] (04/09/18 1:42 PM) DRUG SCREEN U Opiate Scr Positive Negative 04/09 [facility]* [place] (04/09/18 1:42 PM) DRUG SCREEN UDS Note See Note 04/09 [facility] (04/09/18 1:42 PM) [place] DRUG SCREEN U Maureen Scr Negative Negative 04/09 [facility] [place] (04/09/18 1:42 PM) DRUG SCREEN U Cocaine Scr Negative Negative 04/09 [facility] [place] (04/09/18 1:42 PM) DRUG SCREEN U Benzodia Negative Negative 04/09 [facility] [place] (04/09/18 1:42 PM) URINE AND UA <=1.0 0.1 - 1.0 04/09 [facility] Urobilinogen mg/dL [facility] URINE AND UA Sq Epi None Seen 04/09 [facility] URINE AND UA Blood Large Negative 04/09 [facility]* [place] (04/09/18 1:42 PM) URINE AND UA Nitrite Negative Negative 04/09 [facility] (04/09/18 1:42 PM) [place] URINE AND UA Leuk Est Large Negative 04/09 [facility]* [place] (04/09/18 1:42 PM) URINE AND UA WBC null 0 - 5 04/09 [facility] URINE AND UA RBC 125 /HPF 0 - 2 04/09 [facility] [address] [place] [address] URINE AND UA Glucose Negative Negative 04/09 [facility] mg/dL mg/dL /2017 [facility] URINE AND UA Ketones Negative Negative 04/09 [facility] mg/dL mg/dL /2017 [facility] URINE AND UA Bili Negative Negative 04/09 [facility] [place] (04/09/18 1:42 PM) URINE AND UA Bacteria Occasional None Seen 04/09 [facility] STOOL /HPF /HPF /2017 [facility] URINE AND UA Color Yellow Yellow 04/09 [facility]* [place] (04/09/18 1:42 PM) URINE AND UA Turbidity Marked Clear 04/09 [facility] /[address] [place] [address]* Center (04/09/18 1:42 PM) URINE AND UA Spec Grav 1.013 <=1.030 04/[address] URINE AND UA pH 5.5 5.0 - 8.0 04/[address] URINE AND UA Protein 100 mg/dL Negative 04/09 [facility] mg/dL /[address] [place] [address] Chest 1view Chest 1view EXAM: XR CHEST 1 VIEW 04/09 - [facility] Center DATE: 04/09/2018 10:39 AM CDT Read by: Ariel Moreno MD Dictated Date/time: 04/09/18 11:59 Electronically Signed by: Ariel Moreno MD 04/09/18 12:00 FINAL REPORT INDICATION: hypoxia - hypoxia COMPARISON: April 08, 2018 TECHNIQUE: AP chest IMPRESSION: 1. Interval improvement in the previously seen pulmonary edema/infection. 2. Again seen is elevation of the left hemidiaphragm with left basilar atelectatic changes. Gastric distention is noted. 3. Costophrenic sulci are sharp. 4. Cardiomediastinal silhouette is enlarged, unchanged. Aortic atherosclerotic disease. 5. Osseous structures are stable. HEMATOLOGY Basophils 0.2 % 0.0 - 1.0 04/[address] HEMATOLOGY Eosinophils 0.8 % 0.0 - 4.0 04/[address] HEMATOLOGY Eosinophils # 0.1 K/CMM 0.0 - 0.5 04/[address] Chest 1view Chest 1view EXAM: XR CHEST 1 VIEW 04/08 - [facility] This report was dictated by a Apparel Sales Leader/Fellow. I have personally reviewed the images as Center well as the Resident's interpretation and agree with the findings. DATE: 04/08/2018 6:00 AM CDT Read by: Christiano Cervantes MD Resident: Christiano Cervantes MD Dictated Date/time: 04/08/18 06:24 Electronically Signed by: Ervin Rodas 04/08/18 07:19 FINAL REPORT INDICATION: - right rib fractures COMPARISON: CT chest, abdomen, and pelvis on 04/08/2018. [place] SECTION: ER TECHNIQUE: AP chest. FINDINGS: Lines, tubes and hardware: Median sternotomy wires are present. A linear metallic density projects over the left lower chest. Lungs and pleura: Left hemidiaphragm is elevated, unchanged. Right lower lobe airspace opacity is again seen and represents since the pulmonary contusion. Small pneumothorax seen on the CT is not identified on this supine study. Heart and mediastinum: The heart size is enlarged. Vascular calcifications are present at the tortuous descending thoracic aorta. Bones: Multilevel right-sided rib fractures are better depicted on the same day CT. IMPRESSION: 1. Right lower lung pulmonary contusion. 2. Elevated left hemidiaphragm with left basilar subsegmental atelectasis. 3. Multilevel right rib fractures are better depicted on same day CT. 4. Unchanged cardiomegaly. URINE AND UA Hyal Cast 6-10 0 - 2 04/08 [facility]2017 [facility] (04/08/18 12:20 AM) [place] URINE AND UA Coarse 6-10 /LPF None Seen 04/08 [facility] Gran /LPF /[address] [place] [address] URINE AND UA Color Yellow Yellow 04/08 [facility] [address] [place] [address] *NA* [place] (04/08/18 12:20 AM) URINE AND UA Glucose Negative Negative 04/[address] (04/08/18 12:20 AM) [place] URINE AND UA Protein 30 mg/dL Negative 04/08 [facility] mg/dL /[address] [place] [address] URINE AND UA pH 5.5 5.0 - 8.0 04/[address] URINE AND UA Spec Grav 1.025 <=1.030 04/[address] URINE AND UA Turbidity Slight Cloudy Clear 04/[address] (04/08/18 12:20 AM) [place] URINE AND UA Nitrite Negative Negative 04/[address] (04/08/18 12:20 AM) [place] URINE AND UA 0.2 EU/dL 0.1 - 1.0 04/08 [facility] Urobilinogen /[address] [place] [address] URINE AND UA Blood Large Negative 04/[address] *ABN* [place] (04/08/18 12:20 AM) URINE AND UA Bili Negative Negative 04/08 [facility] [address] [place] [address] *NA* [place] (04/08/18 12:20 AM) URINE AND UA Ketones Negative Negative 04/08 [facility] /2017 [facility] *NA* Center (04/08/18 12:20 AM) URINE AND UA Bacteria Few /HPF None Seen 04/08 [facility] STOOL /HPF /2018 [facility] URINE AND UA RBC 21-50 /HPF 0 - 2 04/08 [facility] /[address] [place] [address] URINE AND UA WBC 1-3 04/08 [facility] /[address] [place] [address] URINE AND UA Sq Epi Occasional Few /LPF 04/08 [facility] STOOL /LPF /2018 [facility] URINE AND UA Leuk Est Negative Negative 04/08 [facility] /2018 [facility] (04/08/18 12:20 AM) Center BLOOD BANK Antibody Scrn Negative 04/08 [facility] RESULTS /2017 [facility] (04/07/18 11:50 PM) [place] BLOOD BANK ABO/Rh A POS 04/08 [facility] /[address] [place] [address] CHEM PANEL Lactic Acid 0.8 mMol/L 0.5 - 2.2 04/08 [facility] /[address] [place] [address] CHEM PANEL Total Protein 7.0 g/dL 6.4 - 8.4 04/[address] CHEM PANEL Albumin Lvl 3.7 g/dL 3.5 - 5.0 04/[address] CHEM PANEL ALT 46 unit/L 0 - 65 04/[address] CHEM PANEL AST 60 unit/L 0 - 37 04/[address] CHEM PANEL Alk Phos 65 unit/L 39 - 136 04/[address] CHEM PANEL Bili Total 0.7 mg/dL 0.2 - 1.3 04/[address] CHEM PANEL Bili Indirect 0.6 mg/dL 0.0 - 1.0 04/[address] CHEM PANEL Bili Direct 0.1 mg/dL 0.0 - 0.3 04/[address] CHEM PANEL A/G Ratio 1.1 0.7 - 1.6 04/[address] CHEM PANEL Globulin 3.3 g/dL 2.7 - 4.2 04/[address] HEMATOLOGY PTT 29.3 s 22.9 - 04/08 [place] 35.8 /2017 [facility] HEMATOLOGY INR 1.19 0.85 - 04/08 [facility] 1. [facility] HEMATOLOGY PT 15.2 s 12.0 - 04/08 [facility] 14.7 [facility] HEMATOLOGY Estimated % 1.1 % 0.0 - 7.5 04/08 [facility] Lysis [facility] HEMATOLOGY ACT (TEG) 97 s 86 - 118 04/08 [facility] HEMATOLOGY G-value Rapid 8.1 K d/sc 5.0 - 11.6 04/08 2017 [facility] HEMATOLOGY [place] 0.4 min 04/08 [facility] HEMATOLOGY R-time Rapid 0.5 min 0.4 - 0.7 04/08 [facility] HEMATOLOGY Angle Rapid 76 degrees 64 - 80 04/08 [facility] HEMATOLOGY Max Amplitude 62 mm 52 - 71 04/08 [facility] HEMATOLOGY K-time Rapid 1.2 min 0.6 - 2.3 04/08 [facility]2017 [facility] Spine Spine EXAM: CT CERVICAL SPINE WITHOUT CONTRAST 04/08 - [facility] cervical wo cervical - Medical contrast CT contrast CT This report was dictated by a Apparel Sales Leader/Fellow. I have personally reviewed the images as Center (ER) (ER) well as the Resident's interpretation and agree with the findings. DATE: 04/08/2018 2:38 AM CDT Read by: Christiano Cervantes MD Resident: Christiano Cervantes MD Dictated Date/time: 04/08/18 03:59 Electronically Signed by: Ervin Rodas 04/08/18 04:59 FINAL REPORT INDICATION: - s/p fall COMPARISON: CT head on 04/08/2018 TECHNIQUE: Volumetric CT of the cervical spine is acquired without contrast. Axial, coronal and sagittal images are provided. IV contrast: None. [place] SECTION: ER FINDINGS: The spine is imaged from the skull base to the level of C7-T1. No acute fracture or malalignment is identified. Multilevel degenerative changes are noted. Calcific atherosclerosis noted. IMPRESSION: No acute fracture or malalignment of the cervical spine. Chest/Abdom Chest/Abdomen EXAM: CT CHEST WITH CONTRAST 04/08 - [facility] en/Pelvis w /Pelvis w IV /2017 - Medical IV contrast contrast CT EXAM: CT ABDOMEN AND PELVIS WITH CONTRAST This report was dictated by a Apparel Sales Leader/Fellow. I have personally reviewed the images as Center CT well as the Resident's interpretation and agree with the findings. Read by: Christiano Cervantes MD Resident: Christiano Cervantes MD Dictated Date/time: 04/08/18 04:04 DATE: 04/08/2018 2:38 AM CDT Electronically Signed by: Ervin Rodas 04/08/18 04:47 FINAL REPORT INDICATION: - s/p fall COMPARISON: Chest radiograph and pelvic radiographs on 04/07/2018. TECHNIQUE: Volumetric CT of the chest, abdomen and pelvis is acquired following intravenous administration of contrast. Axial, coronal and sagittal images are provided. Oral contrast: None. DLP: 3495 mGy-cm UT SECTION: ER FINDINGS: Chest: No mediastinal hematoma or thoracic aortic injury. The heart is mildly enlarged. Postoperative appearance associated with CABG. There is mild ectasia of the ascending thoracic aorta. Severe atherosclero sis of the aortic arch, including at the origin of the great vessels. Small right pneumothorax, predominantly located in the lower anterior pleural space. Small volume right pleural fluid is present. There is dependent subsegmental atelectasis. In the right lung base ther e is a dense opacity, likely representing a contusion with probable small lacerations. Paraseptal emphysematous changes are noted in the upper lobes. Abdomen: No acute traumatic abnormality is seen in the liver, pancreas, spleen, adrenal glands, both kidneys, and bowel. There is a 2.9 x 3.2 cm hypodensity near the hepatic hilum with attenuation of about 36 Hounsfield units. There is mild intrahepatic biliary ductal dilation, predominantly in the right hepatic lobe. The common bile duct is within normal limits for a postcholecystectomy patient. Mild nonspecific fat stranding is seen in the right suprarenal region. The pancreas is atrophic with fatty replacement. The kidneys are atrophic. Small subcentimeter hypodensities in both kidneys are not fully characterized on this exam. Urinary bladder is decompressed with a Villa catheter in place. No acute vascular injury. 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 Severe atherosclerosis of the aorta and its main branches. An infrarenal IVC filter is visualized. Spine/ Bones: * Mildly displaced right posterior 6th-9th rib fractures. Nondisplaced right posterior 10th rib fracture, posteromedial right seventh and eighth rib fractures, and anterior right 3-5 rib fractures. * Minimally displaced fracture of the right T9 transverse process. Possible right T10 transverse process fracture. * No acute fracture or malalignment in the lumbar spine and bony pelvis. Soft tissues: Soft tissue contusion and subcutaneous emphysema and the right lower lateral flank. Mild left hip soft tissue contusion. Moderate bilateral fat-containing inguinal hernias. IMPRESSION: 1. Right lower lobe pulmonary contusion with probable small lacerations. 2. Small right anterior pneumothorax and small right hemothorax. 3. Mildly displaced right posterior 6th-9th rib fractures. Nondisplaced right posterior 10th rib fracture, posteromedial right seventh and eighth rib fractures, and anterior right 3-5 rib fractures. 4. Right T9 transverse process minimally displaced fracture. Possible right T10 transverse process fracture. 5. Soft tissue contusion and subcutaneous emphysema in the right lower lateral flank. Mild soft tissue contusion in the left hip. 6. Hepatic hilar 3.1 cm mildly hyperattenuating cystic lesion could represent a complex cyst. Mild bilobar intrahepatic biliary dilation, which could at least be partly related to postcholecystectomy status. MRI/MRCP would better evaluate. 7. 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 Ectasia of the ascending aorta. 8. Severe calcific atherosclerosis. 9. Cardiomegaly. Brain wo Brain wo EXAM: CT BRAIN WITHOUT CONTRAST 04/[address] [facility] [address] CT contrast CT /2018 - [facility] This report was dictated by a Apparel Sales Leader/Fellow. I have personally reviewed the images as Center well as the Resident's interpretation and agree with the findings. DATE: 04/08/2018 2:38 AM CDT Read by: Christiano Cervantes MD Resident: Christiano Cervanets MD Dictated Date/time: 04/08/18 03:56 Electronically Signed by: Leslie Serra MD 04/08/18 09:47 FINAL REPORT INDICATION: - s/p fall COMPARISON: None. TECHNIQUE: Axial noncontrast CT images of the brain were obtained. 5 mm axial, sagittal, and coronal coronal reformats were reviewed. IV contrast: None. DLP: 1026.8 mGy-cm FINDINGS: There is no intracranial hemorrhage or extra-axial collection. Encephalomalacia and gliosis from remote prior infarctions resides within the left occipital lobe, the left frontal lobe middle frontal gyrus, and the left superior parietal lobule. Hypoattenuation within the lingual gyrus of the right occipital lobe ( series 2 image 10) projects within a region that has diffuse streak artifact on the sagittal imaging (series 7 image 16) and thus is favored to represent artifact. No mass or mass effect. Mild ex vacuo ventricular dilatation from mild central volume loss. The density of the larger intracranial sinuses is normal. The skull base and calvarium are normal. The paranasal sinuses and mastoid air cells are predominantly clear. IMPRESSION: 1. No intracranial hemorrhage. 2. 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 The final report agrees with the preliminary report by the overnight resident. Chest 1view Chest 1view EXAM: XR CHEST 1 VIEW 04/07 - [facility] DX DX /2018 - [facility] This report was dictated by a Apparel Sales Leader/Fellow. I have personally reviewed the images as Center well as the Resident's interpretation and agree with the findings. DATE: 04/07/2018 11:36 PM CDT Read by: Christiano Cervantes MD Resident: Christiano Cervantes MD Dictated Date/time: 04/08/18 01:06 Electronically Signed by: Ervin Rodas 04/08/18 02:53 FINAL REPORT INDICATION: - right rib fractures COMPARISON: Chest x-ray in 04/07/2018 [place] SECTION: ER TECHNIQUE: AP chest. FINDINGS: Lines, tubes and hardware: Median sternotomy wires are present. A linear metallic fragment projects over the left lower thorax. Lungs and pleura: Left basilar opacity noted with blunting of the left costophrenic sulcus. Airspace opacity in the right lower lung could represent a pulmonary contusion. No pneumothorax is identified within the limits of the semiupright study. Heart and mediastinum: The heart size is enlarged. Aortic arch calcifications noted. Bones: Right posterior sixth-ninth rib fractures. IMPRESSION: 1. Right lower lung airspace opacity could represent pulmonary contusion. 2. Right posterior sixth-ninth rib fractures. 3. Blunting of the left costophrenic sulcus may be related to pleural fluid/thickening. 4. Subsegmental atelectasis and/or scarring in the left lung base. 5. Mild cardiomegaly. Vital Signs Vital Sign Value Date Comments Source Respitory Rate 16 04/18/2018 [facility] Heart Rate 80 04/18/2018 [facility] Systolic (mm Hg) 143 04/18/2018 [facility] Diastolic (mm Hg) 75 04/18/2018 [facility] Temperature Oral (F) 97.5 F 04/18/2018 [facility] Heart Rate 76 04/18/2018 [facility] Respitory Rate 16 04/18/2018 [facility] Temperature Oral (F) 97.8 F 04/18/2018 [facility] Systolic (mm Hg) 130 04/18/2018 [facility] Diastolic (mm Hg) 73 04/18/2018 [facility] Systolic (mm Hg) 142 04/18/2018 [facility] Diastolic (mm Hg) 86 04/18/2018 [facility] Temperature Oral (F) 97.5 F 04/18/2018 [facility] Heart Rate 78 04/18/2018 [facility] Respitory Rate 16 04/18/2018 [facility] Weight 87.273 04/09/2018 [facility] BMI Calculated 28.41 04/09/2018 [facility] Height 175.26 cm 04/09/2018 [facility] Encounters Location Location Encounter Encounter Reason Attending ADM DC Status Source Details Type Number For Provider Date Date [facility] [id number] Viri 04/08 04/19 [facility] Procedures Procedure Code Date Perfomer Comments Source
[2018-07-26] MEDS ORDERED: NITROFURAN MACRO 100 MG CAP PO ONE (11:08)
[2018-07-26] MEDS ORDERED: CEFTRIAXONE/SWI 1gm 1 GM/10 ML SYR ONE (11:08)
[2018-07-26 11:30] LABS: Absolute Lymphocytes (CBC) 1.1 K/uL (0.7-4.9); Absolute Monocytes 0.6 K/uL (0.1-1.3); Absolute Neutrophil 5.5 K/uL (1.8-8.0); Basophils % 0.2 % (0-1.3); Eosinophils % 0.5 % (0-4.4); Hematocrit 42.5 % (39.6-49.0); Lymphocytes % 15.1 % (15.3-44.8); MCH 31.8 pg (27.0-35.0); MCV 96.4 fL (80-100); MPV 8.8 fL (7.6-11.3); Monocytes % 8.2 % (3.3-12.3); RBC Red Blood Cell Count 4.41 M/uL (4.33-5.43)
[2018-07-26 11:44] LABS: Albumin 3.8 g/dL (3.4-5.0); Bilirubin Total 0.6 mg/dL (0.2-1.0); Potassium 4.1 mmol/L (3.5-5.1); Protein, Total 7.6 g/dL (6.4-8.2)
[2018-07-26 12:04] LABS: Urine Blood NEGATIVE (NEG); Urine Glucose NEGATIVE (NEG); Urine Protein 1+ (NEG); Urine pH 5.5 (5.0-7.0)
--- NOTE | 2018-07-26 12:41 | ER ---
Nurse's Notes [facility] Name: Octavio Bueno Age: 72 yrs Sex: Male : 1945 Arrival Date: 07/26/2018 Time: 10:01 Bed 16 Private MD: Diagnosis: Dysuria;Unspecified kidney failure Presentation: 07/26 10:06 Presenting complaint: Patient states: Dr. Mancia want's me to have IV Antibiotics for a jl7 UTI, positive urine culture for E.Coli. Transition of care: patient was not received from another setting of care. Onset of symptoms was July 26, 2018. Risk Assessment: Do you want to hurt yourself or someone else? Patient reports no desire to harm self or others. Initial Sepsis Screen: Does the patient meet any 2 criteria? No. Patient's initial sepsis screen is negative. Does the patient have a suspected source of infection? No. Patient's initial sepsis screen is negative. Care prior to arrival: None. 10:06 Method Of Arrival: Ambulatory jl7 10:06 Acuity: YAHIR 3 jl7 Historical: - Allergies: 10:13 NKA; jl7 - Home Meds: 10:13 allopurinol 100 mg Oral tab 1 tab 2 times per day [Active]; alprazolam 0.5 mg Oral tab jl7 1 tab daily [Active]; amlodipine 5 mg tab 1 tab once daily [Active]; aspirin 81 mg Oral TbEC 1 tab once daily [Active]; ferrous sulfate 325 mg (65 mg iron) Oral tab daily [Active]; folic acid 1 mg Oral tab 1 tab once daily [Active]; gabapentin 300 mg Oral cap 1 cap 3 times per day [Active]; isosorbide mononitrate 30 mg Oral Tb24 1 tab once daily [Active]; magnesium oxide 400 mg Oral tab twice a day [Active]; labetalol 300 mg Oral tab 1 tab 2 times per day [Active]; metolazone 2.5 mg Oral tab 1 tab once daily [Active]; Nexium 40 mg Oral cpDR 1 cap once daily [Active]; Novolin 70/30 Innolet Sub-Q 70-30 unit/mL twice a day [Active]; potassium chloride 10 mEq Oral TbER 1 cap once daily [Active]; pravastatin 40 mg Oral tab 1 tab once daily [Active]; prednisone 5 mg Oral tab once daily [Active]; Prograf 0.5 mg Oral cap every 12 hours [Active]; Singulair 10 mg Oral tab 1 tab once daily [Active]; tamsulosin 0.4 mg Oral cp24 1 cap once daily [Active]; torsemide 20 mg Oral tab 2 tabs once daily [Active]; - PMHx: 10:13 Diabetes - IDDM; Gout; Hyperlipidemia; Hypertension; Myocardial infarction; jl7 - PSHx: 10:13 Heart transplant 2006; Cholecystectomy; Hernia repair; Cataract surgery; jl7 - Immunization history:: Adult Immunizations not up to date. - Social history:: Smoking status: Patient/guardian denies using tobacco. - Ebola Screening: : No symptoms or risks identified at this time. Screenin:16 Abuse screen: Denies threats or abuse. Denies injuries from another. Nutritional ss screening: No deficits noted. Tuberculosis screening: Never had TB. Fall Risk Fall in past 12 months (25 points). Secondary diagnosis (15 points) tremors. IV access (20 points). Ambulatory Aid- None/Bed Rest/Nurse Assist (0 pts). Gait- Normal/Bed Rest/Wheelchair (0 pts) Mental Status- Oriented to own ability (0 pts). Assessment: 11:16 General: Appears in no apparent distress. comfortable, Behavior is calm, cooperative, ss Denies fever, feeling ill, fatigue, chills. Pain: Denies pain. Neuro: Level of Consciousness is awake, alert, obeys commands, Oriented to person, place, time, situation. Cardiovascular: Capillary refill < 3 seconds is brisk in bilateral fingers. Respiratory: Airway is patent Respiratory effort is even, unlabored, Respiratory pattern is regular, symmetrical. GI: Patient currently denies abdominal pain, diarrhea, nausea, vomiting. : Reports episodic irritation with urination that began a few days ago. Pt was sent by PCP for IV antibiotics for positive urine culture. EENT: Nares are clear. Derm: Skin is intact, is healthy with good turgor, Skin is dry, Skin is pink, warm \T\ dry. normal. Musculoskeletal: Circulation, motion, and sensation intact. Range of motion: intact in all extremities, Swelling absent. 12:05 Reassessment: Patient appears in no apparent distress at this time. Patient and/or hb family updated on plan of care and expected duration. Pain level reassessed. Patient is alert, oriented x 3, equal unlabored respirations, skin warm/dry/pink. 13:10 Reassessment: Patient appears in no apparent distress at this time. Patient and/or tw2 family updated on plan of care and expected duration. Pain level reassessed. Patient is alert, oriented x 3, equal unlabored respirations, skin warm/dry/pink. Vital Signs: 10:13 BP 134 / 90; Pulse 79; Resp 16 S; Temp 98(O); Pulse Ox 97% on R/A; Weight 83.46 kg (R); jl7 Height 5 ft. 9 in. (175.26 cm) (R); Pain 0/10; 13:09 BP 144 / 90; Pulse 75; Resp 17; Pulse Ox 100% on R/A; Pain 0/10; tw2 10:13 Body Mass Index 27.17 (83.46 kg, 175.26 cm) jl7 ED Course: 10:01 Patient arrived in ED. as 10:10 Triage completed. jl7 10:13 Arm band placed on right wrist. Patient placed in an exam room, on a stretcher. jl7 10:18 Steven Esquivel MD is Attending Physician. [facility] 11:15 No provider procedures requiring assistance completed. Inserted saline lock: 22 gauge ss in left antecubital area, using aseptic technique. Blood collected. Patient maintains SpO2 saturation greater than 95% on room air. 11:16 Patient has correct armband on for positive identification. Bed in low position. Call ss light in reach. Side rails up X 1. 12:27 Elvira iHckey, RN is Primary Nurse. tw2 13:10 IV discontinued, intact, bleeding controlled, No redness/swelling at site. Pressure tw2 dressing applied. Administered Medications: 11:10 Drug: Macrobid 100 mg Route: PO; ss 12:00 Follow up: Response: No adverse reaction tw2 11:13 Not Given (changed per pharmacy protocol): Rocephin - (cefTRIAXone) 1 grams IVPB once ss over 30 mins; (mix in 50 mL NS) 11:14 Drug: Rocephin 1 grams Route: IV; Rate: calculated rate; Site: left antecubital; ss 11:20 Follow up: Response: No adverse reaction; IV Status: Completed infusion tw2 Outcome: 12:40 Discharge ordered by . rob 13:10 Discharged to home ambulatory, with significant other. tw2 13:10 Condition: stable 13:10 Discharge instructions given to patient, significant other, Instructed on discharge instructions, follow up and referral plans. medication usage, Demonstrated understanding of instructions, follow-up care, medications, Prescriptions given X 1. 13:11 Patient left the ED. tw2 Signatures: Steven Esquivel MD MD cha Martinez, Amelia as Smirch, Shelby, MELINDA RN ss Gaby Del Castillo RN RN Elvira Hickey RN RN tw2 Ismael Hicks RN RN jl7
--- NOTE | 2018-07-26 12:42 | EDPHYS ---
Physician Documentation [facility] Name: Octavio Bueno Age: 72 yrs Sex: Male : 1945 Arrival Date: 07/26/2018 Time: 10:01 Bed 16 Private MD: Steven Young HPI: 07/26 10:55 This 72 yrs old Male presents to ER via Ambulatory with complaints of rob Abnormal Lab Results. 10:55 The patient presents with urinary symptoms, dysuria. Onset: The symptoms/episode rob began/occurred 3 day(s) ago. Modifying factors: The symptoms are alleviated by nothing. Severity of symptoms: At their worst the symptoms were mild, in the emergency department the symptoms are unchanged. The patient has not experienced similar symptoms in the past. Historical: - Allergies: 10:13 NKA; jl7 - Home Meds: :13 allopurinol 100 mg Oral tab 1 tab 2 times per day [Active]; alprazolam 0.5 mg Oral tab jl7 1 tab daily [Active]; amlodipine 5 mg tab 1 tab once daily [Active]; aspirin 81 mg Oral TbEC 1 tab once daily [Active]; ferrous sulfate 325 mg (65 mg iron) Oral tab daily [Active]; folic acid 1 mg Oral tab 1 tab once daily [Active]; gabapentin 300 mg Oral cap 1 cap 3 times per day [Active]; isosorbide mononitrate 30 mg Oral Tb24 1 tab once daily [Active]; magnesium oxide 400 mg Oral tab twice a day [Active]; labetalol 300 mg Oral tab 1 tab 2 times per day [Active]; metolazone 2.5 mg Oral tab 1 tab once daily [Active]; Nexium 40 mg Oral cpDR 1 cap once daily [Active]; Novolin 70/30 Innolet Sub-Q 70-30 unit/mL twice a day [Active]; potassium chloride 10 mEq Oral TbER 1 cap once daily [Active]; pravastatin 40 mg Oral tab 1 tab once daily [Active]; prednisone 5 mg Oral tab once daily [Active]; Prograf 0.5 mg Oral cap every 12 hours [Active]; Singulair 10 mg Oral tab 1 tab once daily [Active]; tamsulosin 0.4 mg Oral cp24 1 cap once daily [Active]; torsemide 20 mg Oral tab 2 tabs once daily [Active]; - PMHx: 10:13 Diabetes - IDDM; Gout; Hyperlipidemia; Hypertension; Myocardial infarction; jl7 - PSHx: 10:13 Heart transplant 2006; Cholecystectomy; Hernia repair; Cataract surgery; jl7 - Immunization history:: Adult Immunizations not up to date. - Social history:: Smoking status: Patient/guardian denies using tobacco. - Ebola Screening: : No symptoms or risks identified at this time. ROS: 10:56 Constitutional: Negative for fever, chills, and weight loss, Eyes: Negative for injury, rob pain, redness, and discharge, ENT: Negative for injury, pain, and discharge, Neck: Negative for injury, pain, and swelling, Cardiovascular: Negative for chest pain, palpitations, and edema, Respiratory: Negative for shortness of breath, cough, wheezing, and pleuritic chest pain, Abdomen/GI: Negative for abdominal pain, nausea, vomiting, diarrhea, and constipation, Back: Negative for injury and pain, : Negative for injury, bleeding, discharge, and swelling, MS/Extremity: Negative for injury and deformity, Skin: Negative for injury, rash, and discoloration, Neuro: Negative for headache, weakness, numbness, tingling, and seizure, Psych: Negative for depression, anxiety, suicide ideation, homicidal ideation, and hallucinations, Allergy/Immunology: Negative for hives, rash, and allergies, Endocrine: Negative for neck swelling, polydipsia, polyuria, polyphagia, and marked weight changes, Hematologic/Lymphatic: Negative for swollen nodes, abnormal bleeding, and unusual bruising. Exam: 10:56 Constitutional: This is a well developed, well nourished patient who is awake, alert, rob and in no acute distress. Head/Face: Normocephalic, atraumatic. Eyes: Pupils equal round and reactive to light, extra-ocular motions intact. Lids and lashes normal. Conjunctiva and sclera are non-icteric and not injected. Cornea within normal limits. Periorbital areas with no swelling, redness, or edema. ENT: Nares patent. No nasal discharge, no septal abnormalities noted. Tympanic membranes are normal and external auditory canals are clear. Oropharynx with no redness, swelling, or masses, exudates, or evidence of obstruction, uvula midline. Mucous membranes moist. Neck: Trachea midline, no thyromegaly or masses palpated, and no cervical lymphadenopathy. Supple, full range of motion without nuchal rigidity, or vertebral point tenderness. No Meningismus. Chest/axilla: Normal chest wall appearance and motion. Nontender with no deformity. No lesions are appreciated. Cardiovascular: Regular rate and rhythm with a normal S1 and S2. No gallops, murmurs, or rubs. Normal PMI, no JVD. No pulse deficits. Respiratory: Lungs have equal breath sounds bilaterally, clear to auscultation and percussion. No rales, rhonchi or wheezes noted. No increased work of breathing, no retractions or nasal flaring. Abdomen/GI: Soft, non-tender, with normal bowel sounds. No distension or tympany. No guarding or rebound. No evidence of tenderness throughout. Back: No spinal tenderness. No costovertebral tenderness. Full range of motion. Male : Normal genitalia with no discharge or lesions. Skin: Warm, dry with normal turgor. Normal color with no rashes, no lesions, and no evidence of cellulitis. MS/ Extremity: Pulses equal, no cyanosis. Neurovascular intact. Full, normal range of motion. Neuro: Awake and alert, GCS 15, oriented to person, place, time, and situation. Cranial nerves II-XII grossly intact. Motor strength 5/5 in all extremities. Sensory grossly intact. Cerebellar exam normal. Normal gait. Psych: Awake, alert, with orientation to person, place and time. Behavior, mood, and affect are within normal limits. Vital Signs: 10:13 BP 134 / 90; Pulse 79; Resp 16 S; Temp 98(O); Pulse Ox 97% on R/A; Weight 83.46 kg (R); 7 Height 5 ft. 9 in. (175.26 cm) (R); Pain 0/10; 13:09 BP 144 / 90; Pulse 75; Resp 17; Pulse Ox 100% on R/A; Pain 0/10; tw2 10:13 Body Mass Index 27.17 (83.46 kg, 175.26 cm) 7 MDM: 10:18 Patient medically screened. [facility] 10:57 Data reviewed: vital signs, nurses notes, lab test result(s). [facility] 07/26 10:53 Order name: CBC with Diff; Complete Time: 12:39 [facility] 07/26 10:53 Order name: Comprehensive Metabolic Panel; Complete Time: 12:39 rob 07/26 10:53 Order name: Urine Culture [facility] 07/26 11:59 Order name: Urine Dipstick--Ancillary (enter results); Complete Time: 12:39 bd 07/26 10:53 Order name: Urine Dipstick-Ancillary (obtain specimen); Complete Time: 11:13 rob 07/26 10:53 Order name: IV Saline Lock; Complete Time: 11:14 [facility] Administered Medications: 11:10 Drug: Macrobid 100 mg Route: PO; ss 12:00 Follow up: Response: No adverse reaction tw2 11:13 Not Given (changed per pharmacy protocol): Rocephin - (cefTRIAXone) 1 grams IVPB once ss over 30 mins; (mix in 50 mL NS) 11:14 Drug: Rocephin 1 grams Route: IV; Rate: calculated rate; Site: left antecubital; ss 11:20 Follow up: Response: No adverse reaction; IV Status: Completed infusion tw2 Disposition: 07/26/18 12:40 Discharged to Home. Impression: Dysuria, Unspecified kidney failure. - Condition is Stable. - Discharge Instructions: Dysuria, Urinary Tract Infection, Adult, Urinary Tract Infection, Adult, [id number], Chronic Kidney Disease, Adult, Prta-[id number]. - Prescriptions for Macrobid 100 mg Oral Capsule - take 1 capsule by ORAL route every 12 hours for 7 days; 14 capsule. - Medication Reconciliation Form, Thank You Letter, Antibiotic Education, Prescription Opioid Use form. - Follow up: Private Physician; When: 2 - 3 days; Reason: Recheck today's complaints, Continuance of care, Re-evaluation by your physician. - Problem is new. - Symptoms have improved. Signatures: Dispatcher [employer] EDMO Steven Esquivel MD MD cha Smirch, Shelby, RN RN ss Elvira Hickey RN RN tw2 Ismael Hicks RN RN jl7 Corrections: (The following items were deleted from the chart) 13:11 12:40 07/26/2018 12:40 Discharged to Home. Impression: Dysuria; Unspecified kidney tw2 failure. Condition is Stable. Discharge Instructions: Dysuria. Prescriptions for Macrobid 100 mg Oral Capsule - take 1 capsule by ORAL route every 12 hours for 7 days; 14 capsule. and Forms are Medication Reconciliation Form, Thank You Letter, Antibiotic Education, Prescription Opioid Use. Follow up: Private Physician; When: 2 - 3 days; Reason: Recheck today's complaints, Continuance of care, Re-evaluation by your physician. Problem is new. Symptoms have improved. rob
[2018-07-26 13:15] VITALS: TEMP 98
[2018-07-26 13:16] VITALS: BP 144/90; O2SAT 100
== END 2018-07-26 13:11 | disposition home or self-care (01) ==
LOC: ER 09:59
DX: N19 Unspecified kidney failure (principal); E11.9 Type 2 diabetes mellitus without complications; E78.5 Hyperlipidemia, unspecified; I10 Essential (primary) hypertension; I25.2 Old myocardial infarction
CPT/HCPCS: 36415; 80053; 81003; 85025; 87088; 96374; 99284; J0696; 87086

== ENCOUNTER 2018-12-26 17:44 | Inpatient (IN) | payer OTHER ==
--- OUTSIDE RECORDS SUMMARY | 2018-12-26 17:52 | XMS REPORT | Clinical Summary ---
:1945 Author Organization [facility] Address [address] [place] [address] Care Team Providers Name Role Phone Britney Maloney MD Primary Care Provider Allergies Active Allergy Reactions Severity Noted Date Comments No Known Drug Allergies 02/26/2016 Medications Medication Sig Dispensed Refills Start End Date Status Date allopurinol Take 100 mg by 0 Active (ZYLOPRIM) 100 MG mouth 2 (two) tablet times a day. ALPRAZolam Take 0.5 mg by 0 Active (XANAX) 0.5 MG mouth nightly as tablet needed for anxiety. aspirin (ECOTRIN) Take 81 mg by 0 Active 81 MG enteric mouth daily. coated tablet calcium Take 1 tablet by 0 Active carbonate-vitamin mouth 2 (two) D3 600 times a day with mg(1,500mg) -200 meals. unit per tablet multivitamin Take 1 tablet by 0 Active (THERAGRAN) mouth daily. tablet omega-3 acid Take 2 g by mouth 0 Active ethyl esters 2 (two) times a (LOVAZA) 1 gram day. capsule tamsulosin Take 0.4 mg by 0 Active (FLOMAX) 0.4 mg mouth nightly. capsule,extended release 24hr ferrous sulfate Take 325 mg by 0 Active 325 (65 FE) MG mouth daily with tablet breakfast. amLODIPine Take 5 mg by mouth 0 Active (NORVASC) 5 MG daily. tablet magnesium oxide Take 1 tablet (400 180 tablet 3 11/20/19 Active (MAG-OX) 400 mg mg total) by mouth 8 20 tablet 2 (two) times a day. BD INSULIN USE TO INJECT 180 each 6 Active SYRINGE ULT-FINE TWICE DAILY 8 II 0.5 mL 31 gauge x 16 syringeIndication s: Uncontrolled type 2 diabetes mellitus without complication, with long-term current use of insulin (HCC) tacrolimus Take 1 capsule 60 capsule 11 Active (PROGRAF) 0.5 MG (0.5 mg total) by 8 capsule mouth 2 (two) times a day. Z94.1 heart transplant esomeprazole Take 40 mg by 30 capsule 0 Active (NexIUM) 20 MG mouth every 8 capsule morning and 20 mg by mouth every evening metOLazone Take 1 tablet (2.5 30 tablet 0 Active (ZAROXOLYN) 2.5 mg total) by mouth 8 MG tablet as needed (fluid). Titrate to effect montelukast Take 1 tablet (10 30 tablet 0 Active (SINGULAIR) 10 mg mg total) by mouth 8 tablet as needed (allergies). omega Take 2,000 mg by 0 Active [id number] mouth 2 (two) oil (FISH OIL) times a day. 1,000 mg (120 mg-180 mg) capsule thiamine 100 MG Take 100 mg by 0 Active tablet mouth daily. predniSONE Take 1.5 tablets 135 tablet 3 03/24/20 Active (DELTASONE) 5 mg (7.5 mg total) by 8 19 tablet mouth daily. Z94.1 Heart Transplant Status Post labetalol Take 1 tablet (100 60 tablet 11 09/08/20 Active (NORMODYNE) 100 mg total) by mouth 8 19 MG tablet 2 (two) times a day. gabapentin TAKE 1 CAPSULE 270 capsule 3 Active (NEURONTIN) 300 THREE TIMES DAILY 8 mg capsule potassium Take 2 tablets (20 180 tablet 3 10/06/19 Active chloride mEq total) by 9 20 (K-DUR,KLOR-CON) mouth daily. 10 MEQ CR tablet isosorbide Take 1 tablet (30 90 tablet 3 10/17/19 Active mononitrate mg total) by mouth 9 20 (IMDUR) 30 MG 24 daily. hr tablet insulin 70/30 NPH Inject 12 Units 0 Active and regular human under the skin (HumuLIN 70/30) daily before 100 unit/mL breakfast. (70-30) injection predniSONE Take 5 mg by mouth 0 Active (DELTASONE) 5 mg daily. tablet finasteride Take 5 mg by mouth 0 Active (PROSCAR) 5 mg nightly. tablet torsemide Take 2 tablets (40 180 tablet 3 11/24/19 Active (DEMADEX) 20 MG mg total) by mouth 9 20 tablet daily. folic acid Take 1 tablet (1 90 tablet 3 11/24/19 Active (FOLVITE) 1 MG mg total) by mouth 9 20 tablet daily. pravastatin Take 1 tablet (80 90 tablet 3 Active (PRAVACHOL) 80 MG mg total) by mouth 9 tablet daily. insulin 70/30 NPH Inject 20 Units 30 mL 3 Active and regular human under the skin 9 (HumuLIN 70/30) daily before 100 unit/mL dinner. Inject 12 (70-30) injection units am, inject 20 units in the pm ONETOUCH VERIO Test 3 times daily 300 strip 3 Active strip test strips 9 esomeprazole Take 40 mg by 0 01/23/20 Discontinued (NexIUM) 40 MG mouth daily before 18 capsule breakfast. montelukast Take 10 mg by 0 01/23/20 Discontinued (SINGULAIR) 10 mg mouth nightly. 18 tablet thiamine 100 MG Take 100 mg by 0 01/18/20 Discontinued tablet mouth daily. 18 metolazone Take 1 tablet (2.5 30 tablet 3 01/23/20 Discontinued (ZAROXOLYN) 2.5 mg total) by mouth 6 18 MG tablet daily. Titrate to effect ONETOUCH ULTRA TEST 4 TIMES A DAY 400 strip 2 07/18/20 Discontinued TEST strip test 7 18 strips blood sugar Patient testing 1 400 strip 3 03/02/20 Discontinued diagnostic strips strips 4 times a 7 18 strip test day stripsIndications : History of heart transplant (HCC), Uncontrolled type 2 diabetes mellitus without complication, with long-term current use of insulin (HCC) lancets (KiwilogicTOUCH Inject 1 Device 400 each 3 03/02/20 Discontinued DELICA LANCETS) into the skin 4 7 18 33 gauge (four) times a miscIndications: day. Uncontrolled diabetes mellitus type 2 without complications, unspecified residential insulin use status predniSONE TAKE 1 & 1/2 TABS 45 tablet 11 01/23/20 Discontinued (DELTASONE) 5 mg BY MOUTH ONCE A 7 18 tablet DAY acetaminophen-cod Take 1 tablet by 30 tablet 2 01/23/20 Discontinued eine (TYLENOL mouth nightly for 7 18 WITH CODEINE #3) 90 days. DVT left 300-30 mg per leg pain for sleep tablet potassium Take 2 tablets (20 60 tablet 11 10/06/19 Discontinued chloride mEq total) by 7 19 (K-DUR,KLOR-CON) mouth daily. 10 MEQ CR tablet gabapentin TAKE 1 CAPSULE 270 capsule 3 01/23/20 Discontinued (NEURONTIN) 300 THREE TIMES DAILY 7 18 mg capsule NOVOLIN 70/30 100 INJECT 20 UNITS 40 mL 2 01/23/20 Discontinued unit/mL (70-30) SUBCUTANEOUSLY IN 7 18 injection THE MORNING, AND 24 UNITS AT DINNER isosorbide TAKE 1 TABLET 90 tablet 3 10/17/19 Discontinued mononitrate EVERY DAY 7 19 (IMDUR) 30 MG 24 hr tablet pravastatin TAKE 1 TABLET (80 90 tablet 3 01/23/20 Discontinued (PRAVACHOL) 80 MG MG TOTAL) BY MOUTH 8 18 tablet EVERY EVENING. mycophenolate TAKE 1 TABLET BY 180 tablet 3 01/23/20 Discontinued (CELLCEPT) 500 mg MOUTH TWICE A DAY 8 18 tablet torsemide Take 1 tablet (20 180 tablet 3 01/23/20 Discontinued (DEMADEX) 20 MG mg total) by mouth 8 18 tablet 2 (two) times a day. folic acid Take 1 tablet (1 90 tablet 3 11/24/19 Discontinued (FOLVITE) 1 MG mg total) by mouth 8 19 tablet daily. labetalol Take 1 tablet (100 180 tablet 2 09/08/20 Discontinued (NORMODYNE) 100 mg total) by mouth 8 18 MG tablet 2 (two) times a day. amoxicillin-pot [...] a day with meals for 7 days. gabapentin Take 1 capsule 90 capsule 0 06/22/20 Discontinued (NEURONTIN) 300 (300 mg total) by 8 18 mg capsule mouth 3 (three) times a day. mycophenolate Hold until clinic 60 tablet 0 02/02/20 Discontinued (CELLCEPT) 500 mg follow-up 8 18 tablet insulin 70/30 NPH Inject 20 units 40 mL 2 08/01/20 Discontinued and regular human subcutaneously 8 18 (NovoLIN 70/30 with breakfast and U-100 Insulin) 24 units subq with 100 unit/mL evening meal (70-30) injection pravastatin Take 1 tablet (80 90 tablet 3 12/08/19 Discontinued (PRAVACHOL) 80 MG mg total) by mouth 8 19 tablet daily. predniSONE Take 1.5 tablets 45 tablet 11 03/24/20 Discontinued (DELTASONE) 5 mg (7.5 mg total) by 8 18 tablet mouth daily. torsemide Take 2 tablets (40 60 tablet 0 11/24/19 Discontinued (DEMADEX) 20 MG mg total) by mouth 8 19 tablet daily. mycophenolate Take 1 tablet (500 60 tablet 0 02/28/20 Discontinued (CELLCEPT) 500 mg mg total) by mouth 8 18 tablet 2 (two) times a day. Z94.1 heart transplant ciprofloxacin HCl Take 1 tablet (500 14 tablet 0 03/06/20 (CIPRO) 500 MG mg total) by mouth 8 18 tablet 2 (two) times a day for 7 days. 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 traMADol (ULTRAM) Take 1 tablet (50 36 tablet 1 06/02/20 50 mg tablet mg total) by mouth 8 18 every 6 (six) hours as needed for moderate pain for up to 30 days. acetaminophen-cod Take 1 tablet by 24 tablet 1 06/02/20 eine (TYLENOL mouth every 4 8 18 WITH CODEINE #3) (four) hours as 300-30 mg per needed for tablet moderate pain (severe pain) for up to 30 days. ONETOUCH VERIO TEST 4 TIMES DAILY 400 strip 3 07/18/20 Discontinued strip test 8 18 stripsIndications : Diabetes mellitus due to underlying condition with chronic kidney disease, without long-term current use of insulin, unspecified CKD stage ([facility]) gabapentin Take 1 capsule 270 capsule 3 09/22/20 Discontinued (NEURONTIN) 300 (300 mg total) by 8 18 mg capsule mouth 3 (three) times a day. ONETOUCH VERIO TEST 4 TIMES DAILY 400 strip 5 11/17/19 Discontinued strip test 8 19 stripsIndications : Diabetes mellitus due to underlying condition with chronic kidney disease, without long-term current use of insulin, unspecified CKD stage ([facility]) NOVOLIN 70/30 INJECT 20 UNITS 40 mL 2 11/17/19 Discontinued U-100 INSULIN 100 SUBCUTANEOUSLY IN 8 19 unit/mL (70-30) THE MORNING, AND injection 24 UNITS AT DINNER insulin 70/30 NPH Inject 20 Units 0 12/08/19 Discontinued and regular human under the skin 19 (HumuLIN 70/30) daily before 100 unit/mL dinner. 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 Failed prednisone wean due to adrenal insufficiency FK 1 mg BID ; MMF 500 mg BID ; Prednisone 5 Failed Rapamune attempt twice DSA recd Date Type I Type II [...] -5 prn Disorder of endocrine system 11/14/2013 Heart transplanted 11/14/2013 Overview: 09/29/2006 Heart Transplant FK 1 mg Q 12; Prednisone 5 Does not tolerate Rapamune. Failed [...] Encounters Date Type Specialty Care Team Description 12/07/2018 Office Visit Endocrinology Haider, Diabetes mellitus due to underlying condition with chronic kidney disease, without long-term current use of insulin, unspecified CKD stage ([facility]) (Primary Dx); Britney Mixed hyperlipidemia; MD Hany Chronic kidney disease, stage V ([facility]); History of heart transplant ([facility]); Subclinical hypothyroidism; Diabetic autonomic neuropathy associated with type 2 diabetes mellitus ([facility]); Vitamin D deficiency 12/05/2018 Telephone Transplant Sarmad, Nuerology Referral Lois, PEREZ 11/25/2018 Telephone Endocrinology Thu Dolan MA 11/24/2018 Refill Transplant Sabino, Med Refill PEREZ Hickey 11/24/2018 Telephone Transplant Donell, Med Refill Usha Phan MA 11/21/2018 Hospital Encounter Transplant Tyesha Ferguson Heart transplanted ( [facility]) (Primary Dx); Jigar BRYAN, Chronic kidney disease, stage V ([facility]); Diabetes mellitus due to underlying condition with chronic kidney disease, without long-term current use of insulin, unspecified CKD stage ([facility]); Essential hypertension; Mixed hyperlipidemia; Long-term use of immunosuppressant medication; Diabetic autonomic neuropathy associated with type 2 diabetes mellitus ([facility]); Heart replaced by transplant ([facility]) 11/21/2018 Office Visit Infectious Diseases Geremias Waite Acute cystitis mikel Irene MD hematuria (Primary Dx) 11/19/2018 Refill Cardiology Donald Epstein MD 11/17/2018 Surgery Procedural Kati, Left heart cath w lv Cardiology MD Trevon gram cors [[id number] (CPT)] 11/17/2018 Hospital Encounter Procedural Bhimaraj, Heart replaced by transplant ([facility]); Cardiology MD Yash Cardiac allograft vasculopathy ([facility]) 11/17/2018 Hospital Encounter Procedural Bhimaraj, Heart replaced by Cardiology MD Yash transplant ([facility]) 11/17/2018 Hospital Encounter Radiology Bhimaraj, Heart replaced by transplant ([facility]); MD Yash Cardiac allograft vasculopathy ([facility]); Therapeutic drug monitoring; Long-term use of immunosuppressant medication; CRF (chronic renal failure), stage 3 (moderate) ([facility]); Infection; Cytomegalovirus infection, unspecified cytomegaloviral infection type ( HCC); Chronic fatigue; Cough on exercise; SOB (shortness of breath); Pain of upper abdomen; Osteopenia of lumbar spine; Cancer screening; Screening PSA (prostate specific antigen); Hyperlipidemia associated with type 2 diabetes mellitus (HCC); Urinary tract infection without hematuria, site unspecified 11/17/2018 Hospital Encounter Radiology [facility], Heart replaced by transplant ([facility]); MD Yash Cardiac allograft vasculopathy ([facility]); Therapeutic drug monitoring; Long-term use of immunosuppressant medication; CRF (chronic renal failure), stage 3 (moderate) ([facility]); Infection; Cytomegalovirus infection, unspecified cytomegaloviral infection type ( [facility]); Chronic fatigue; Cough on exercise; SOB (shortness of breath); Pain of upper abdomen; Osteopenia of lumbar spine; Cancer screening; Screening PSA (prostate specific antigen); Hyperlipidemia associated with type 2 diabetes mellitus (HCC); Urinary tract infection without hematuria, site unspecified 11/17/2018 Hospital Encounter [facility] replaced by transplant ([facility]); MD Yash Cardiac allograft vasculopathy ([facility]); Therapeutic drug monitoring; Long-term use of immunosuppressant medication; CRF (chronic renal failure), stage 3 (moderate) ([facility]); Infection; Cytomegalovirus infection, unspecified cytomegaloviral infection type ( [facility]); Chronic fatigue; Cough on exercise; SOB (shortness of breath); Pain of upper abdomen; Osteopenia of lumbar spine; Cancer screening; Screening PSA (prostate specific antigen); Hyperlipidemia associated with type 2 diabetes mellitus (HCC); Urinary tract infection without hematuria, site unspecified 11/17/2018 [facility] ([facility]); MD Yash Cardiac allograft vasculopathy ([facility]); Therapeutic drug monitoring; Long-term use of immunosuppressant medication; CRF (chronic renal failure), stage 3 (moderate) ([facility]); Infection; Cytomegalovirus infection, unspecified cytomegaloviral infection type ( [facility]); Chronic fatigue; Cough on exercise; SOB (shortness of breath); Pain of upper abdomen; Osteopenia of lumbar spine; Cancer screening; Screening PSA (prostate specific antigen); Hyperlipidemia associated with type 2 diabetes mellitus ([facility]); Urinary tract infection without hematuria, site unspecified 11/17/2018 Hospital Encounter Transplant Physician, Heart replaced by transplant ([facility]); MD Malcolm Cardiac allograft vasculopathy ([facility]); Therapeutic drug monitoring; Long-term use of immunosuppressant medication; CRF (chronic renal failure), stage 3 (moderate) ([facility]); Infection; Cytomegalovirus infection, unspecified cytomegaloviral infection type ( [facility]); Chronic fatigue; Cough on exercise; SOB (shortness of breath); Pain of upper abdomen; Osteopenia of lumbar spine; Cancer screening; Screening PSA (prostate specific antigen); Hyperlipidemia associated with type 2 diabetes mellitus ([facility]); Urinary tract infection without hematuria, site unspecified 11/10/2018 Refill Cardiology Donald Epstein MD 11/01/2018 Orders Only Infectious Diseases ProviderJennifer MD 10/31/2018 Orders Only Transplant Jessie, Essential hypertension (Primary Dx); MELINDA Stone Heart replaced by transplant ([facility]) 10/31/2018 Telephone Transplant Sabino [facility] / Annual # 12 PEREZ Hickey / 11-17-18 10/31/2018 Orders Only Transplant Jessie, 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 ([facility]) (Primary Dx) 10/27/2018 Documentation Transplant [facility], 11/17/18 ; cath ord sum: MELINDA Stone lft cath 10/17/2018 Refill Transplant Sabino, Med Refill PEREZ Hickey 10/13/2018 Refill Cardiology Donald Epstien MD 10/06/2018 Refill Transplant Sabino, Med Refill PEREZ Hickey 09/23/2018 Refill Endocrinology Thu Dolan MA 09/22/2018 Refill Endocrinology Britney Maloney MD 09/22/2018 Refill Cardiology Donald Epstein MD 09/15/2018 Documentation Transplant Chase Roman RN 09/08/2018 Refill Transplant Sabino, Med Refill PEREZ Hickey 09/01/2018 Refill Endocrinology Britney Maloney MD 08/26/2018 Refill Cardiology Pancho Fontaine MD 08/01/2018 Refill Endocrinology Britney Maloney MD 07/18/2018 Orders Only Endocrinology Haider, Diabetes mellitus due Britney to underlying condition MD Hany with chronic kidney disease, without long-term current use of insulin, unspecified CKD stage ([facility]) 06/22/2018 Refill Endocrinology Thu Dolan MA 06/20/2018 Office Visit Endocrinology Haider, Diabetes mellitus due to underlying condition with chronic kidney disease, without long-term current use of insulin, unspecified CKD stage (Primary Dx); Britney Mixed hyperlipidemia; MD Hany Chronic kidney disease, stage V; History of heart transplant; Subclinical hypothyroidism; Diabetic autonomic neuropathy associated with type 2 diabetes mellitus; Vitamin D deficiency 05/26/2018 Documentation Transplant Chase Roman RN 05/03/2018 [facility], [facility] of [facility] (Primary Dx); MD Yash Chronic kidney disease, stage V; Diabetes mellitus due to underlying condition with chronic kidney disease, without long-term current use of insulin, unspecified CKD stage; Essential hypertension; Mixed hyperlipidemia; Long-term use of immunosuppressant medication; Closed fracture of multiple ribs of right side, initial encounter; Heart replaced by transplant; Infection; 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; Therapeutic drug monitoring; Metabolic syndrome; CRF (chronic renal failure), stage 3 (moderate); Cytomegalovirus infection, unspecified cytomegaloviral infection type; Hyperlipidemia associated with type 2 diabetes mellitus 05/03/2018 [facility], [facility]; MD Yash Infection; 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; Therapeutic drug monitoring; Metabolic syndrome; CRF (chronic renal failure), stage 3 (moderate); Cytomegalovirus infection, unspecified cytomegaloviral infection type; Essential hypertension; Hyperlipidemia associated with type 2 diabetes mellitus 04/29/2018 Hospital Encounter Procedural Jeanine Bernal, History of heart transplant; Cardiology Fall with injury, subsequent encounter; Pain of right lower extremity 04/29/2018 Hospital Encounter Radiology Jeanine Bernal, History of heart transplant; Fall with injury, subsequent encounter; SOB (shortness of breath) 04/29/2018 Hospital Encounter Radiology Jeanine Bernal, History of heart transplant; Fall with injury, subsequent encounter; Pain of right lower extremity 04/29/2018 Hospital Encounter Radiology Jeanine Bernal, History of heart transplant; Fall with injury, subsequent encounter; Pain of right lower extremity 04/29/2018 Hospital Encounter Radiology Jeanine Bernal, History of heart transplant; Fall with injury, subsequent encounter; Pain of right lower extremity 04/29/2018 [facility] MD Yash Chronic kidney disease, stage V; Diabetes mellitus due to underlying condition with chronic kidney disease, without long-term current use of insulin, unspecified CKD stage; Essential hypertension; Mixed hyperlipidemia; Long-term use of immunosuppressant medication; Diabetic autonomic neuropathy associated with type 2 diabetes mellitus; Fall with injury, subsequent encounter; SOB (shortness of breath); Pain of right lower extremity 04/08/2018 Documentation Transplant Alcon Sutton RN 04/08/2018 Telephone Transplant Sarmad, Joey Coordinator PEREZ Abreu 03/24/2018 Refill Transplant Pancho Gallo Refill PEREZ Hickey 03/08/2018 Hospital Encounter Transplant [place], History of heart transplant (Primary Dx); MD Yash Chronic kidney disease, stage V; Diabetes mellitus due to underlying condition with chronic kidney disease, without long-term current use of insulin, unspecified CKD stage; Mixed hyperlipidemia; Essential hypertension; Long-term use of immunosuppressant medication; Heart replaced by transplant; Infection; 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; Therapeutic drug monitoring; Metabolic syndrome; CRF (chronic renal failure), stage 3 (moderate); Cytomegalovirus infection, unspecified cytomegaloviral infection type; Hyperlipidemia associated with type 2 diabetes mellitus 03/08/2018 Hospital Encounter Transplant [place], Heart replaced by transplant; MD Yash Infection; 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; Therapeutic drug monitoring; Metabolic syndrome; CRF (chronic renal failure), stage 3 (moderate); Cytomegalovirus infection, unspecified cytomegaloviral infection type; Essential hypertension; Hyperlipidemia associated with type 2 diabetes mellitus 03/07/2018 Refill Cardiology Donald Epstein Refminerva Perez MD 03/02/2018 Refill Endocrinology Radha, Uncontrolled diabetes mellitus type 2 without complications, 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; Britney History of heart transplant; MD Hany Uncontrolled type 2 diabetes mellitus without complication, with long-term current use of insulin 02/24/2018 Hospital Encounter Transplant Anel Faulkner MD 02/27/2018 02/24/2018 Documentation Transplant Chase Roman, MELINDA 02/01/2018 Hospital Encounter Transplant Donald Epstein History of heart transplant (Primary Dx); MD Chris Chronic kidney disease, stage V; Diabetes mellitus due to underlying condition with chronic kidney disease, without long-term current use of insulin, unspecified CKD stage; Mixed hyperlipidemia; Essential hypertension; Long-term use of immunosuppressant medication; Heart replaced by transplant; Infection; 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; Therapeutic drug monitoring; Metabolic syndrome; CRF (chronic renal failure), stage 3 (moderate); Cytomegalovirus infection, unspecified cytomegaloviral infection type; Hyperlipidemia associated with type 2 diabetes mellitus; Cellulitis of left upper extremity 02/01/2018 Hospital Encounter Transplant Miriamcelia, Heart replaced by transplant; MD Yash Infection; 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; Therapeutic drug monitoring; Metabolic syndrome; CRF (chronic renal failure), stage 3 (moderate); Cytomegalovirus infection, unspecified cytomegaloviral infection type; Essential hypertension; Hyperlipidemia associated with type 2 diabetes mellitus 01/28/2018 Hospital Encounter Transplant Donald Epstein Heart replaced by transplant; MD Chris Infection; 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; Therapeutic drug monitoring; Metabolic syndrome; CRF (chronic renal failure), stage 3 (moderate); Cytomegalovirus infection, unspecified cytomegaloviral infection type; Essential hypertension; Hyperlipidemia associated with type 2 diabetes mellitus 01/24/2018 Orders Only Transplant Jessie, Heart replaced by transplant ( Primary Dx); MELINDA Stone Infection; [facility] current use 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; Therapeutic drug monitoring; Metabolic syndrome; CRF (chronic renal failure), stage 3 (moderate); Cytomegalovirus infection, unspecified cytomegaloviral infection type; Essential hypertension; Hyperlipidemia associated with type 2 diabetes mellitus 01/24/2018 Documentation Transplant [facility], Nursing Inpatient to MELINDA Jean Outpatient HandOff 01/17/2018 Hospital Encounter Transplant Donald Epstein MD 01/22/2018 Gene Mnuiz MD 01/13/2018 Orders Only Transplant Chase Roman RN after 12/25/2017 Family History Medical History Relation Name Comments Heart disease Brother Heart disease Father Heart disease Mother Relation Name Status Comments Brother Father Mother Social History Tobacco Use Types Packs/Day Years Used Date Never Smoker Smokeless Tobacco: Former User Alcohol Use Drinks/Week oz/Week Comments Yes occ Sex Assigned at Date Recorded Not on file Job Start Date Occupation Industry Not on file Not on file Not on file Travel History Travel Start Travel End No recent travel history available. Last Filed Vital Signs Vital Sign Reading Time Taken Blood Pressure 142/73 12/07/2018 10:47 AM CDT Pulse 79 12/07/2018 10:47 AM CDT Temperature 36.5 C (97.7 F) 12/07/2018 10:47 AM CDT Respiratory Rate 16 11/21/2018 12:20 PM [employer] Oxygen Saturation 97% 12/07/2018 10:47 AM CDT Inhaled Oxygen Concentration - - Weight 87.5 kg (193 lb) 12/07/2018 10:47 AM CDT Height 179.8 cm (5' 10.8") 12/07/2018 10:47 AM CDT Body Mass Index 27.07 12/07/2018 10:47 AM CDT Plan of Treatment Date Type Specialty Care Team Description 06/13/2019 Office Visit Endocrinology Britney Maloney MD [address] [place] [address] Health Maintenance Due Date Last Done Comments COLON CANCER SCREENING 1993 SHINGLES VACCINES (#1) 1993 65+ PNEUMOCOCCAL VACCINE (1 of 2 - 2008 PCV13) PNEUMOCOCCAL POLYSACCHARIDE VACCINE 2008 AGE 65 AND OVER INFLUENZA VACCINE 04/27/2019 DIABETIC FOOT EXAM 12/08/2019 12/07/2018, 12/07/2018, 06/20/2018, Additional history exists DIABETIC RETINAL EYE EXAM 06/13/2020 06/13/2018, 07/06/2017, 06/15/2016, Additional history exists Procedures Procedure Name Priority Date/Time Associated Diagnosis Comments POC GLUCOSE Routine 12/07/2018 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 of insulin, unspecified CKD stage ([facility]) ECG 12-LEAD Routine 11/21/2018 Essential hypertension 12:52 PM [employer] Heart replaced by transplant ([facility]) POC GLUCOSE Routine 11/17/2018 Results for 12:28 PM [employer] this procedure are in the results section. 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 POC GLUCOSE Routine 11/17/2018 Results for 11:06 AM [employer] REPAIR[employer] this procedure are in the results section. ECHOCARDIOGRAM 2D Routine 11/17/2018 Heart replaced by Results for COMPLETE W MMODE 11:00 AM [employer] REPAIR[employer] transplant ([facility]) this procedure SPECTRAL COLOR DOPPLER are in the (89331) results section. 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 monitoring Long-term use of immunosuppressant medication CRF (chronic renal failure), stage 3 (moderate) (HCC) Infection Cytomegalovirus infection, unspecified cytomegaloviral infection type (HCC) Chronic fatigue Cough on exercise SOB (shortness of breath) Pain of upper abdomen Osteopenia of lumbar spine Cancer screening Screening PSA (prostate specific antigen) Hyperlipidemia associated with type 2 diabetes mellitus (HCC) Urinary tract infection without hematuria, site unspecified BONE DENSITY PERIPHERAL Routine 11/17/2018 Heart replaced by Results for 9:42 AM [employer] RE[employer] transplant ([facility]) this procedure 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 monitoring Long-term use of immunosuppressant medication CRF (chronic renal failure), stage 3 (moderate) (HCC) Infection Cytomegalovirus infection, unspecified cytomegaloviral infection type (HCC) Chronic fatigue Cough on exercise SOB (shortness of breath) Pain of upper abdomen Osteopenia of lumbar spine Cancer screening Screening PSA (prostate specific antigen) Hyperlipidemia associated with type 2 diabetes mellitus (HCC) Urinary tract infection without hematuria, site unspecified BONE DENSITY Routine 11/17/2018 Heart replaced by Results for 9:42 AM [employer] REPAIR[employer] transplant ([facility]) this procedure 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 monitoring Long-term use of immunosuppressant medication CRF (chronic renal failure), stage 3 (moderate) (HCC) Infection Cytomegalovirus infection, unspecified cytomegaloviral infection type (HCC) Chronic fatigue Cough on exercise SOB (shortness of breath) Pain of upper abdomen Osteopenia of lumbar spine Cancer screening Screening PSA (prostate specific antigen) Hyperlipidemia associated with type 2 diabetes mellitus (HCC) Urinary tract infection without hematuria, site unspecified XR CHEST 2 VW Routine 11/17/2018 Heart replaced by Results for 9:12 AM [employer] REPAIR[employer] transplant ([facility]) this procedure 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 monitoring Long-term use of immunosuppressant medication CRF (chronic renal failure), stage 3 (moderate) (HCC) Infection Cytomegalovirus infection, unspecified cytomegaloviral infection type (HCC) Chronic fatigue Cough on exercise SOB (shortness of breath) Pain of upper abdomen Osteopenia of lumbar spine Cancer screening Screening PSA (prostate specific antigen) Hyperlipidemia associated with type 2 diabetes mellitus (HCC) Urinary tract infection without hematuria, site unspecified GRAM STAIN Routine 11/17/2018 Results for 8:32 AM [employer]OT[employer] REPAIRER this procedure are in the results section. URINE CULTURE Routine 11/17/2018 Results for 8:32 AM DYNAMOTOR REPAIRER this procedure are in the results section. DONOR SPECIFIC ANTIBODY Routine 11/17/2018 Results for 6:20 AM D[employer]OT[employer] REPAIRER this procedure are in the results section. ESTIMATED GFR Routine 11/17/2018 Results for 6:20 AM DY[employer]OT[employer] REPAIRER this procedure are in the results section. 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 monitoring Long-term use of immunosuppressant medication CRF (chronic renal failure), stage 3 (moderate) (HCC) Infection Cytomegalovirus infection, unspecified cytomegaloviral infection type (HCC) Chronic fatigue Cough on exercise SOB (shortness of breath) Pain of upper abdomen Osteopenia of lumbar spine Cancer screening Screening PSA (prostate specific antigen) Hyperlipidemia associated with type 2 diabetes mellitus (HCC) Urinary tract infection without hematuria, site unspecified PROSTATE SPECIFIC Routine 11/17/2018 Heart replaced by Results for ANTIGEN 6:20 AM [employer] REPAIRER transplant (HCC) this procedure 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 monitoring Long-term use of immunosuppressant medication CRF (chronic renal failure), stage 3 (moderate) (HCC) Infection Cytomegalovirus infection, unspecified cytomegaloviral infection type (HCC) Chronic fatigue Cough on exercise SOB (shortness of breath) Pain of upper abdomen Osteopenia of lumbar spine Cancer screening Screening PSA (prostate specific antigen) Hyperlipidemia associated with type 2 diabetes mellitus (HCC) Urinary tract infection without hematuria, site unspecified VITAMIN D 25 HYDROXY Routine 11/17/2018 Heart replaced by Results for LEVEL 6:20 AM [employer] REPAIRER transplant (HCC) this procedure 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 monitoring Long-term use of immunosuppressant medication CRF (chronic renal failure), stage 3 (moderate) (HCC) Infection Cytomegalovirus infection, unspecified cytomegaloviral infection type (HCC) Chronic fatigue Cough on exercise SOB (shortness of breath) Pain of upper abdomen Osteopenia of lumbar spine Cancer screening Screening PSA (prostate specific antigen) Hyperlipidemia associated with type 2 diabetes mellitus (HCC) Urinary tract infection without hematuria, site unspecified TROPONIN Routine 11/17/2018 Heart replaced by Results for 6:20 AM [employer] REPAIRER transplant (HCC) this procedure 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 monitoring Long-term use of immunosuppressant medication CRF (chronic renal failure), stage 3 (moderate) (HCC) Infection Cytomegalovirus infection, unspecified cytomegaloviral infection type (HCC) Chronic fatigue Cough on exercise SOB (shortness of breath) Pain of upper abdomen Osteopenia of lumbar spine Cancer screening Screening PSA (prostate specific antigen) Hyperlipidemia associated with type 2 diabetes mellitus (HCC) Urinary tract infection without hematuria, site unspecified [id number] TACROLIMUS LEVEL, Routine 11/17/2018 Heart replaced by Results for RANDOM 6:20 AM [employer] REPAIRER transplant ([facility]) this procedure 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 monitoring Long-term use of immunosuppressant medication CRF (chronic renal failure), stage 3 (moderate) (HCC) Infection Cytomegalovirus infection, unspecified cytomegaloviral infection type (HCC) Chronic fatigue Cough on exercise SOB (shortness of breath) Pain of upper abdomen Osteopenia of lumbar spine Cancer screening Screening PSA (prostate specific antigen) Hyperlipidemia associated with type 2 diabetes mellitus (HCC) Urinary tract infection without hematuria, site unspecified B NATRIURETIC PEPTIDE Routine 11/17/2018 Heart replaced by Results for 6:20 AM DYNAMOT[employer] REPAIRER transplant ([facility]) this procedure 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 monitoring Long-term use of immunosuppressant medication CRF (chronic renal failure), stage 3 (moderate) (HCC) Infection Cytomegalovirus infection, unspecified cytomegaloviral infection type (HCC) Chronic fatigue Cough on exercise SOB (shortness of breath) Pain of upper abdomen Osteopenia of lumbar spine Cancer screening Screening PSA (prostate specific antigen) Hyperlipidemia associated with type 2 diabetes mellitus (HCC) Urinary tract infection without hematuria, site unspecified URINALYSIS SCREEN AND Routine 11/17/2018 Heart replaced by Results for MICROSCOPY, WITH REFLEX 6:20 AM [employer] REPAIRER transplant ([facility]) this procedure TO CULTURE 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 monitoring Long-term use of immunosuppressant medication CRF (chronic renal failure), stage 3 (moderate) (HCC) Infection Cytomegalovirus infection, unspecified cytomegaloviral infection type (HCC) Chronic fatigue Cough on exercise SOB (shortness of breath) Pain of upper abdomen Osteopenia of lumbar spine Cancer screening Screening PSA (prostate specific antigen) Hyperlipidemia associated with type 2 diabetes mellitus (HCC) Urinary tract infection without hematuria, site unspecified LDH Routine 11/17/2018 Heart replaced by Results for 6:20 AM DYNAMOT[employer] REPAIRER transplant ([facility]) this procedure 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 monitoring Long-term use of immunosuppressant medication CRF (chronic renal failure), stage 3 (moderate) (HCC) Infection Cytomegalovirus infection, unspecified cytomegaloviral infection type (HCC) Chronic fatigue Cough on exercise SOB (shortness of breath) Pain of upper abdomen Osteopenia of lumbar spine Cancer screening Screening PSA (prostate specific antigen) Hyperlipidemia associated with type 2 diabetes mellitus (HCC) Urinary tract infection without hematuria, site unspecified URIC ACID LEVEL Routine 11/17/2018 Heart replaced by Results for 6:20 AM DYNAMOT[employer] REPAIRER transplant ([facility]) this procedure 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 monitoring Long-term use of immunosuppressant medication CRF (chronic renal failure), stage 3 (moderate) (HCC) Infection Cytomegalovirus infection, unspecified cytomegaloviral infection type (HCC) Chronic fatigue Cough on exercise SOB (shortness of breath) Pain of upper abdomen Osteopenia of lumbar spine Cancer screening Screening PSA (prostate specific antigen) Hyperlipidemia associated with type 2 diabetes mellitus (HCC) Urinary tract infection without hematuria, site unspecified THYROID STIMULATING Routine 11/17/2018 Heart replaced by Results for HORMONE 6:20 AM DY[employer]OT[employer] REPAIRER transplant ([facility]) this procedure 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 monitoring Long-term use of immunosuppressant medication CRF (chronic renal failure), stage 3 (moderate) (HCC) Infection Cytomegalovirus infection, unspecified cytomegaloviral infection type (HCC) Chronic fatigue Cough on exercise SOB (shortness of breath) Pain of upper abdomen Osteopenia of lumbar spine Cancer screening Screening PSA (prostate specific antigen) Hyperlipidemia associated with type 2 diabetes mellitus (HCC) Urinary tract infection without hematuria, site unspecified T4 Routine 11/17/2018 Heart replaced by Results for 6:20 AM DYNAMOT[employer] REPAIRER transplant ([facility]) this procedure 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 monitoring Long-term use of immunosuppressant medication CRF (chronic renal failure), stage 3 (moderate) (HCC) Infection Cytomegalovirus infection, unspecified cytomegaloviral infection type (HCC) Chronic fatigue Cough on exercise SOB (shortness of breath) Pain of upper abdomen Osteopenia of lumbar spine Cancer screening Screening PSA (prostate specific antigen) Hyperlipidemia associated with type 2 diabetes mellitus (HCC) Urinary tract infection without hematuria, site unspecified T3 Routine 11/17/2018 Heart replaced by Results for 6:20 AM DYNAMOT[employer] REPAIRER transplant ([facility]) this procedure 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 monitoring Long-term use of immunosuppressant medication CRF (chronic renal failure), stage 3 (moderate) (HCC) Infection Cytomegalovirus infection, unspecified cytomegaloviral infection type (HCC) Chronic fatigue Cough on exercise SOB (shortness of breath) Pain of upper abdomen Osteopenia of lumbar spine Cancer screening Screening PSA (prostate specific antigen) Hyperlipidemia associated with type 2 diabetes mellitus (HCC) Urinary tract infection without hematuria, site unspecified PARATHYROID HORMONE Routine 11/17/2018 Heart replaced by Results for 6:20 AM DYNAMOT[employer] REPAIRER transplant ([facility]) this procedure 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 monitoring Long-term use of immunosuppressant medication CRF (chronic renal failure), stage 3 (moderate) (HCC) Infection Cytomegalovirus infection, unspecified cytomegaloviral infection type (HCC) Chronic fatigue Cough on exercise SOB (shortness of breath) Pain of upper abdomen Osteopenia of lumbar spine Cancer screening Screening PSA (prostate specific antigen) Hyperlipidemia associated with type 2 diabetes mellitus (HCC) Urinary tract infection without hematuria, site unspecified IONIZED CALCIUM Routine 11/17/2018 Heart replaced by Results for 6:20 AM DYNAMOT[employer] REPAIRER transplant ([facility]) this procedure 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 monitoring Long-term use of immunosuppressant medication CRF (chronic renal failure), stage 3 (moderate) (HCC) Infection Cytomegalovirus infection, unspecified cytomegaloviral infection type (HCC) Chronic fatigue Cough on exercise SOB (shortness of breath) Pain of upper abdomen Osteopenia of lumbar spine Cancer screening Screening PSA (prostate specific antigen) Hyperlipidemia associated with type 2 diabetes mellitus (HCC) Urinary tract infection without hematuria, site unspecified HEMOGLOBIN A1C Routine 11/17/2018 Heart replaced by Results for 6:20 AM DYNAMOT[employer] REPAIRER transplant ([facility]) this procedure 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 monitoring Long-term use of immunosuppressant medication CRF (chronic renal failure), stage 3 (moderate) (HCC) Infection Cytomegalovirus infection, unspecified cytomegaloviral infection type (HCC) Chronic fatigue Cough on exercise SOB (shortness of breath) Pain of upper abdomen Osteopenia of lumbar spine Cancer screening Screening PSA (prostate specific antigen) Hyperlipidemia associated with type 2 diabetes mellitus (HCC) Urinary tract infection without hematuria, site unspecified LIPID PANEL Routine 11/17/2018 Heart replaced by Results for 6:20 AM DY[employer]OT[employer] REPAIRER transplant ([facility]) this procedure 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 monitoring Long-term use of immunosuppressant medication CRF (chronic renal failure), stage 3 (moderate) (HCC) Infection Cytomegalovirus infection, unspecified cytomegaloviral infection type (HCC) Chronic fatigue Cough on exercise SOB (shortness of breath) Pain of upper abdomen Osteopenia of lumbar spine Cancer screening Screening PSA (prostate specific antigen) Hyperlipidemia associated with type 2 diabetes mellitus (HCC) Urinary tract infection without hematuria, site unspecified HEPATIC FUNCTION PANEL Routine 11/17/2018 Heart replaced by Results for 6:20 AM DYNAMOT[employer] REPAIRER transplant ([facility]) this procedure 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 monitoring Long-term use of immunosuppressant medication CRF (chronic renal failure), stage 3 (moderate) (HCC) Infection Cytomegalovirus infection, unspecified cytomegaloviral infection type (HCC) Chronic fatigue Cough on exercise SOB (shortness of breath) Pain of upper abdomen Osteopenia of lumbar spine Cancer screening Screening PSA (prostate specific antigen) Hyperlipidemia associated with type 2 diabetes mellitus (HCC) Urinary tract infection without hematuria, site unspecified MAGNESIUM LEVEL Routine 11/17/2018 Heart replaced by Results for 6:20 AM DYNAMOTOR REPAIRER transplant ([facility]) this procedure 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 monitoring Long-term use of immunosuppressant medication CRF (chronic renal failure), stage 3 (moderate) (HCC) Infection Cytomegalovirus infection, unspecified cytomegaloviral infection type (HCC) Chronic fatigue Cough on exercise SOB (shortness of breath) Pain of upper abdomen Osteopenia of lumbar spine Cancer screening Screening PSA (prostate specific antigen) Hyperlipidemia associated with type 2 diabetes mellitus (HCC) Urinary tract infection without hematuria, site unspecified PHOSPHORUS LEVEL Routine 11/17/2018 Heart replaced by Results for 6:20 AM DYNAMOTOR REPAIRER transplant ([facility]) this procedure 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 monitoring Long-term use of immunosuppressant medication CRF (chronic renal failure), stage 3 (moderate) (HCC) Infection Cytomegalovirus infection, unspecified cytomegaloviral infection type (HCC) Chronic fatigue Cough on exercise SOB (shortness of breath) Pain of upper abdomen Osteopenia of lumbar spine Cancer screening Screening PSA (prostate specific antigen) Hyperlipidemia associated with type 2 diabetes mellitus (HCC) Urinary tract infection without hematuria, site unspecified HC COMPLETE BLD COUNT Routine 11/17/2018 Heart replaced by Results for W/AUTO DIFF 6:20 AM DYNAMOTOR REPAIRER transplant ([facility]) this procedure 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 monitoring Long-term use of immunosuppressant medication CRF (chronic renal failure), stage 3 (moderate) (HCC) Infection Cytomegalovirus infection, unspecified cytomegaloviral infection type (HCC) Chronic fatigue Cough on exercise SOB (shortness of breath) Pain of upper abdomen Osteopenia of lumbar spine Cancer screening Screening PSA (prostate specific antigen) Hyperlipidemia associated with type 2 diabetes mellitus (HCC) Urinary tract infection without hematuria, site unspecified BASIC METABOLIC PANEL Routine 11/17/2018 Heart replaced by Results for 6:20 AM DYNAMOTOR REPAIRER transplant ([facility]) this procedure 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 monitoring Long-term use of immunosuppressant medication CRF (chronic renal failure), stage 3 (moderate) (HCC) Infection Cytomegalovirus infection, unspecified cytomegaloviral infection type (HCC) Chronic fatigue Cough on exercise SOB (shortness of breath) Pain of upper abdomen Osteopenia of lumbar spine Cancer screening Screening PSA (prostate specific antigen) Hyperlipidemia associated with type 2 diabetes mellitus (HCC) Urinary tract infection without hematuria, site unspecified URINALYSIS, COMPLETE, Routine 10/27/2018 WITH REFLEX TO CULTURE URINALYSIS, COMPLETE, Routine 10/03/2018 WITH REFLEX TO CULTURE CBC WITH PLATELET AND Routine 10/03/2018 DIFFERENTIAL URINE Routine 10/03/2018 PROTEIN/CREATININE RATIO, RANDOM URIC ACID LEVEL Routine 10/03/2018 COMPREHENSIVE METABOLIC Routine 10/03/2018 PANEL POC GLYCOSYLATED Routine 06/20/2018 Diabetes mellitus due Results for HEMOGLOBIN (HGB A1C) 11:53 AM CDT to underlying condition this procedure with chronic kidney are in the disease, without results long-term current use section. 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 of insulin, unspecified CKD stage COMPREHENSIVE METABOLIC Routine 06/18/2018 Uncontrolled type 2 Results for PANEL 9:32 AM CDT diabetes mellitus this procedure without complication, are in the with long-term current results use of insulin section. CBC WITH PLATELET AND Routine 06/18/2018 Uncontrolled type 2 Results for DIFFERENTIAL 9:32 AM CDT diabetes mellitus this procedure without complication, are in the with long-term current results use of insulin section. ZZESTIMATED GFR STAT 05/03/2018 Results for 7:50 AM CDT this procedure are in the results section. FK506 TACROLIMUS LEVEL, STAT 05/03/2018 Heart replaced by Results for RANDOM 7:50 AM CDT transplant this procedure Infection are in the [facility] current use results of immunosuppressive section. drug Therapeutic drug monitoring Metabolic syndrome CRF (chronic renal failure), stage 3 (moderate) Cytomegalovirus infection, unspecified cytomegaloviral infection type Essential hypertension Hyperlipidemia associated with type 2 diabetes mellitus PROTHROMBIN TIME WITH STAT 05/03/2018 Heart replaced by Results for INR 7:50 AM CDT transplant this procedure Infection are in the 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 use results of immunosuppressive section. drug Therapeutic drug monitoring Metabolic syndrome CRF (chronic renal failure), stage 3 (moderate) Cytomegalovirus infection, unspecified cytomegaloviral infection type Essential hypertension Hyperlipidemia associated with type 2 diabetes mellitus TROPONIN STAT 05/03/2018 Heart replaced by Results for 7:50 AM CDT transplant this procedure Infection are in the [facility] current use results of immunosuppressive section. drug Therapeutic drug monitoring Metabolic syndrome CRF (chronic renal failure), stage 3 (moderate) Cytomegalovirus infection, unspecified cytomegaloviral infection type Essential hypertension Hyperlipidemia associated with type 2 diabetes mellitus B NATRIURETIC PEPTIDE STAT 05/03/2018 Heart replaced by Results for 7:50 AM CDT transplant this procedure Infection are in the 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 use results of immunosuppressive section. 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 drug Therapeutic drug monitoring Metabolic syndrome CRF (chronic renal failure), stage 3 (moderate) Cytomegalovirus infection, unspecified cytomegaloviral infection type Essential hypertension Hyperlipidemia associated with type 2 diabetes mellitus CYTOMEGALOVIRUS BY PCR STAT 05/03/2018 Heart replaced by Results for 7:50 AM CDT transplant this procedure Infection are in the [facility] current use results of immunosuppressive section. drug Therapeutic drug monitoring Metabolic syndrome CRF (chronic renal failure), stage 3 (moderate) Cytomegalovirus infection, unspecified cytomegaloviral infection type Essential hypertension Hyperlipidemia associated with type 2 diabetes mellitus HC COMPLETE BLD COUNT STAT 05/03/2018 Heart replaced by Results for W/AUTO DIFF 7:50 AM CDT transplant this procedure Infection are in the [facility] current use results of immunosuppressive section. 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 drug Therapeutic drug monitoring Metabolic syndrome CRF (chronic renal failure), stage 3 (moderate) Cytomegalovirus infection, unspecified cytomegaloviral infection type Essential hypertension Hyperlipidemia associated with type 2 diabetes mellitus US DUPLEX VENOUS LOWER Routine 04/29/2018 History of heart Results for EXTREMITY RIGHT 1:45 PM CDT transplant this procedure Fall with injury, are in the subsequent encounter results Pain of right lower section. extremity XR CHEST 2 VW Routine 04/29/2018 History of heart Results for 1:17 PM CDT transplant this procedure Fall with injury, are in the subsequent encounter results SOB (shortness of section. breath) XR FOOT 3+ VW RIGHT Routine 04/29/2018 History of heart Results for 1:13 PM CDT transplant this procedure Fall with injury, are in the subsequent encounter results Pain of right lower section. extremity XR TIBIA FIBULA 2 VW Routine 04/29/2018 History of heart Results for RIGHT 1:12 PM CDT transplant this procedure Fall with injury, are in the subsequent encounter results Pain of right lower section. extremity XR ANKLE 3+ VW RIGHT Routine 04/29/2018 History of heart Results for 1:12 PM CDT transplant this procedure Fall with injury, are in the subsequent encounter results Pain of right lower section. extremity ZZESTIMATED GFR STAT 03/08/2018 Results for 9:14 AM CDT this procedure are in the results section. URINALYSIS, AUTOMATED STAT 03/08/2018 Heart replaced by Results for WITH MICROSCOPY 9:14 AM CDT transplant this procedure Infection are in the [facility] current use results of immunosuppressive section. drug Therapeutic drug monitoring Metabolic syndrome CRF (chronic renal failure), stage 3 (moderate) Cytomegalovirus infection, unspecified cytomegaloviral infection type Essential hypertension Hyperlipidemia associated with type 2 diabetes mellitus FK506 TACROLIMUS LEVEL, STAT 03/08/2018 Heart replaced by Results for RANDOM 9:14 AM CDT transplant this procedure Infection are in the [facility] current use results of immunosuppressive section. drug Therapeutic drug monitoring Metabolic syndrome CRF (chronic renal failure), stage 3 (moderate) Cytomegalovirus infection, unspecified cytomegaloviral infection type Essential hypertension Hyperlipidemia associated with type 2 diabetes mellitus TROPONIN STAT 03/08/2018 Heart replaced by Results for 9:14 AM CDT transplant this procedure Infection are in the [facility] current use results of immunosuppressive section. 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 drug Therapeutic drug monitoring Metabolic syndrome CRF (chronic renal failure), stage 3 (moderate) Cytomegalovirus infection, unspecified cytomegaloviral infection type Essential hypertension Hyperlipidemia associated with type 2 diabetes mellitus COMPREHENSIVE METABOLIC STAT 03/08/2018 Heart replaced by Results for PANEL 9:14 AM CDT transplant this procedure Infection are in the [facility] current use results of immunosuppressive section. drug Therapeutic drug monitoring Metabolic syndrome CRF (chronic renal failure), stage 3 (moderate) Cytomegalovirus infection, unspecified cytomegaloviral infection type Essential hypertension Hyperlipidemia associated with type 2 diabetes mellitus POC GLUCOSE Routine 02/27/2018 Results for 7:18 AM CDT this procedure are in the results section. ZZESTIMATED GFR Routine 02/27/2018 Results for 4:50 AM CDT this procedure are in the results section. FK506 TACROLIMUS LEVEL, Routine 02/27/2018 Results for RANDOM 4:50 AM CDT this procedure are in the results section. BASIC METABOLIC PANEL Routine 02/27/2018 Results for 4:50 AM CDT this procedure are in the results section. HC COMPLETE BLD COUNT Routine 02/27/2018 Results for W/AUTO DIFF 4:50 AM CDT this procedure are [...] procedure are in the results section. SALMONELLA/SHIGELLA Routine 02/26/2018 Results for CULTURE 7:52 AM CDT this procedure are in [...] this procedure are in the results section. ZZESTIMATED GFR Routine 02/26/2018 Results for 5:20 AM CDT this procedure are in the results section. CYTOMEGALOVIRUS BY PCR Routine 02/26/2018 Results for 5:20 AM CDT this procedure are in the results section. FK506 TACROLIMUS LEVEL, Routine 02/26/2018 Results for RANDOM 5:20 AM CDT this procedure are in [...] are in the results section. ECHOCARDIOGRAM 2D Routine 02/25/2018 Results for COMPLETE W MMODE 3:00 PM CDT this procedure SPECTRAL COLOR DOPPLER are in the (43352) results section. POC GLUCOSE Routine 02/25/2018 Results for 12:56 PM CDT this procedure are in the results section. LACTIC ACID LEVEL STAT 02/25/2018 Results for 8:15 AM CDT this procedure are in the results section. POC GLUCOSE Routine 02/25/2018 Results for 7:47 AM CDT this procedure are in the results section. ZZESTIMATED GFR Routine 02/25/2018 Results for 5:50 AM CDT this procedure are in the results section. BASIC METABOLIC PANEL Routine 02/25/2018 Results for 5:50 AM CDT this procedure are in the results section. HC COMPLETE BLD COUNT Routine 02/25/2018 Results for W/AUTO DIFF 5:50 AM CDT this procedure are in the results section. FK506 TACROLIMUS LEVEL, Routine 02/25/2018 Results for RANDOM 5:50 AM CDT this procedure are in the results section. ECG 12-LEAD STAT 02/25/2018 Results for 3:50 AM CDT this procedure are in the results section. XR CHEST 1 VW PORTABLE STAT 02/25/2018 Results for 2:35 AM CDT this procedure are in the results section. RESPIRATORY PATHOGEN Routine 02/25/2018 Results for PANEL 2:03 AM CDT this procedure are in the results section. ZZESTIMATED GFR STAT 02/25/2018 Results for 2:02 AM CDT this procedure are in the results section. MAGNESIUM LEVEL STAT 02/25/2018 Results for 2:02 AM CDT this procedure are in the results section. COMPREHENSIVE METABOLIC STAT 02/25/2018 Results for PANEL 2:02 AM CDT this procedure are in the results section. PARTIAL THROMBOPLASTIN STAT 02/25/2018 Results for TIME (PTT) 2:02 AM CDT this procedure are in the results section. PROTHROMBIN TIME WITH STAT 02/25/2018 Results for INR 2:02 AM CDT this procedure are in the results section. HC COMPLETE BLD COUNT STAT 02/25/2018 Results for W/AUTO DIFF 2:02 AM CDT this procedure are in the results section. URINALYSIS SCREEN AND STAT 02/25/2018 Results for MICROSCOPY, WITH REFLEX 2:02 AM CDT this procedure TO CULTURE are in the results section. BLOOD CULTURE, AEROBIC Routine 02/25/2018 Results for & ANAEROBIC 2:02 AM CDT this procedure are in the results section. BLOOD CULTURE, AEROBIC Routine 02/25/2018 Results for & ANAEROBIC 2:01 AM CDT this procedure are in the results section. URINE CULTURE STAT 02/25/2018 Results for 2:00 AM CDT this procedure are in the results section. POC GLUCOSE Routine 02/24/2018 Results for 11:55 PM CDT this procedure are in the results section. ZZESTIMATED GFR STAT 01/28/2018 Results for 10:50 AM CDT this procedure are in the results section. URINALYSIS, AUTOMATED STAT 01/28/2018 Heart replaced by Results for WITH MICROSCOPY 10:50 AM CDT transplant this procedure Infection are in the [facility] current use results of immunosuppressive section. 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 drug Therapeutic drug monitoring Metabolic syndrome CRF (chronic renal failure), stage 3 (moderate) Cytomegalovirus infection, unspecified cytomegaloviral infection type Essential hypertension Hyperlipidemia associated with type 2 diabetes mellitus B NATRIURETIC PEPTIDE STAT 01/28/2018 Heart replaced by Results for 10:50 AM CDT transplant this procedure Infection are in the [facility] current use results of immunosuppressive section. 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 drug Therapeutic drug monitoring Metabolic syndrome CRF (chronic renal failure), stage 3 (moderate) Cytomegalovirus infection, unspecified cytomegaloviral infection type Essential hypertension Hyperlipidemia associated with type 2 diabetes mellitus CYTOMEGALOVIRUS BY PCR STAT 01/28/2018 Heart replaced by Results for 10:50 AM CDT transplant this procedure Infection are in the [facility] current use results of immunosuppressive section. drug Therapeutic drug monitoring Metabolic syndrome CRF (chronic renal failure), stage 3 (moderate) Cytomegalovirus infection, unspecified cytomegaloviral infection type Essential hypertension Hyperlipidemia associated with type 2 diabetes mellitus HC COMPLETE BLD COUNT STAT 01/28/2018 Heart replaced by Results for W/AUTO DIFF 10:50 AM CDT transplant this procedure Infection are in the [facility] current use results of immunosuppressive section. 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 drug Therapeutic drug monitoring Metabolic syndrome CRF (chronic renal failure), stage 3 (moderate) Cytomegalovirus infection, unspecified cytomegaloviral infection type Essential hypertension Hyperlipidemia associated with type 2 diabetes mellitus COMPREHENSIVE METABOLIC STAT 01/28/2018 Heart replaced by Results for PANEL 10:50 AM CDT transplant this procedure Infection are in the [facility] current use results of immunosuppressive section. drug Therapeutic drug monitoring Metabolic syndrome CRF (chronic renal failure), stage 3 (moderate) Cytomegalovirus infection, unspecified cytomegaloviral infection type Essential hypertension Hyperlipidemia associated with type 2 diabetes mellitus POC GLUCOSE Routine 01/22/2018 Results for 8:24 AM CDT this procedure are in the results section. HC COMPLETE BLD COUNT Routine 01/22/2018 Results for W/AUTO DIFF 5:48 AM CDT this procedure are in the results section. FK506 TACROLIMUS LEVEL, Routine 01/22/2018 Results for RANDOM 5:48 AM CDT this procedure are in the results section. ZZESTIMATED GFR Routine 01/22/2018 Results for 4:00 AM [...] this procedure are in the results section. ZZESTIMATED GFR Routine 01/21/2018 Results for 5:58 AM CDT this procedure are in the results section. BASIC METABOLIC PANEL Routine 01/21/2018 Results for 5:58 AM CDT this procedure are in the results section. HC COMPLETE BLD COUNT Routine 01/21/2018 Results for W/AUTO DIFF 5:58 AM CDT this procedure are in the results section. FK506 TACROLIMUS LEVEL, Routine 01/21/2018 Results for RANDOM 5:58 AM CDT this procedure are in [...] this procedure are in the results section. ZZESTIMATED GFR Routine 01/20/2018 Results for 6:00 AM CDT this procedure are in the results section. FK506 TACROLIMUS LEVEL, Routine 01/20/2018 Results for RANDOM 6:00 AM CDT this procedure are in the results section. PHOSPHORUS LEVEL Routine 01/20/2018 Results for 6:00 AM CDT this procedure are in the results section. MAGNESIUM LEVEL Routine 01/20/2018 Results for 6:00 AM CDT this procedure are in the results section. BASIC METABOLIC PANEL Routine 01/20/2018 Results for 6:00 AM CDT this procedure are in the results section. HC COMPLETE BLD COUNT Routine 01/20/2018 Results for W/AUTO DIFF 6:00 AM CDT this procedure are [...] this procedure are in the results section. ZZESTIMATED GFR Routine 01/19/2018 Results for 5:00 AM CDT this procedure are in the results section. FK506 TACROLIMUS LEVEL, Routine 01/19/2018 Results for RANDOM 5:00 AM CDT this procedure are in the results section. BASIC METABOLIC PANEL Routine 01/19/2018 Results for 5:00 AM CDT this procedure are in the results section. HC COMPLETE BLD COUNT Routine 01/19/2018 Results for W/AUTO DIFF 5:00 AM CDT this procedure are in the results section. POC GLUCOSE Routine 01/18/2018 Results for 10:52 PM CDT this procedure are in the results section. POC GLUCOSE Routine 01/18/2018 Results for 7:28 PM CDT this procedure are in the results section. POC GLUCOSE Routine 01/18/2018 Results for 1:05 PM CDT this procedure are in the results section. ECHOCARDIOGRAM 2D STAT 01/18/2018 Results for COMPLETE W MMODE 12:36 PM CDT this procedure SPECTRAL COLOR DOPPLER are in the (84885) results section. US DUPLEX VENOUS UPPER STAT 01/18/2018 Results for EXTREMITY LEFT 12:00 PM CDT this procedure are in the results section. VANCOMYCIN LEVEL, STAT 01/18/2018 Results for RANDOM 10:15 AM CDT this procedure are in the results section. IMMUNOGLOBULIN G STAT 01/18/2018 Results for 10:15 AM CDT this procedure are in the results section. CYTOMEGALOVIRUS BY PCR Routine 01/18/2018 Results for 10:15 AM CDT this procedure are in the results section. ZZESTIMATED GFR Routine 01/18/2018 Results for 10:15 AM CDT this procedure are in the results section. BASIC METABOLIC PANEL Routine 01/18/2018 Results for 10:15 AM CDT this procedure are in the results section. CBC HEMOGRAM Routine 01/18/2018 Results for 10:15 AM CDT this procedure are in the results section. RESPIRATORY PATHOGEN Routine 01/18/2018 Results for PANEL 10:15 AM CDT this procedure are in the results section. CT CHEST WO CONTRAST STAT 01/18/2018 Results for 9:47 AM CDT this procedure are in the results section. CT UPPER EXTREMITY WO STAT 01/18/2018 Results for LEFT 9:47 AM CDT this procedure are in the results section. POC GLUCOSE Routine 01/18/2018 Results for 8:59 AM CDT this procedure are in the results section. FK506 TACROLIMUS LEVEL, Routine 01/18/2018 Results for RANDOM 5:30 AM CDT this procedure are in the results section. LACTIC ACID LEVEL Routine 01/18/2018 Results for 2:58 AM CDT this procedure are in the results section. ECG 12-LEAD Routine 01/18/2018 Results for 2:52 AM CDT this procedure are in the results section. POC GLUCOSE Routine 01/18/2018 Results for 1:15 AM CDT this procedure are in the results section. BLOOD CULTURE, AEROBIC Routine 01/17/2018 Results for & ANAEROBIC 11:13 PM CDT this procedure are in the results section. HEMOGLOBIN A1C Routine 01/17/2018 Results for 11:00 PM CDT this procedure are in the results section. ZZESTIMATED GFR Routine 01/17/2018 Results for 11:00 PM CDT this procedure are in the results section. LACTIC ACID LEVEL Routine 01/17/2018 Results for 11:00 PM CDT this procedure are in the results section. MAGNESIUM LEVEL Routine 01/17/2018 Results for 11:00 PM CDT this procedure are in the results section. COMPREHENSIVE METABOLIC Routine 01/17/2018 Results for PANEL 11:00 PM CDT this procedure are in the results section. PROTHROMBIN TIME WITH Routine 01/17/2018 Results for INR 11:00 PM CDT this procedure are in the results section. HC COMPLETE BLD COUNT Routine 01/17/2018 Results for W/AUTO DIFF 11:00 PM CDT this procedure are in the results section. BLOOD CULTURE, AEROBIC Routine 01/17/2018 Results for & ANAEROBIC 11:00 PM CDT this procedure are in the results section. POC GLUCOSE Routine 01/17/2018 Results for 8:49 PM CDT this procedure are in the results section. after 12/25/2017 Results POC glucose (12/07/2018 10:50 AM CDT)Only the most recent of33 resultswithin the time period is included. 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 procedure (11/17/2018 12:05 PM DYNAMOTOR REPAIRER) Narrative Performed At Mild allograft vasculopathy idio Performing Organization Address City/State/Zipcode Phone Number [facility] [address] [place] [address] Echocardiogram complete w contrast and 3D if needed (11/17/2018 11:00 AM DYNAMOTOR REPAIRER) Narrative Performed At [facility] Report [address] [place] [address] Pat.Name:TAQUERIA JENKINS TPat.ID:[id number] .Date: 11/17/2018 Refer.MD:YASH FONTAINE MD Exam Time: 9:53:00 AMStudy Type:Routine Echo Height:69inWeight: 188lb BSA: 2.01 m2 DOBAge:1945,73Y Sex: MALEBP:153/79 HR:88 bpm Sonogrphr: Nadira Rodriguez RDCS, RVT Pat. Stat.:OutpatientRoom:[facility] Study Status:Final Echo Event ID:[id number] Order ID:[id number] Reason for Study:VAD and Cardiac Transplantation - Monitoring for rejection in a cardiac transplant recipient History / Clinical:Arrhythmias, COPD, Heart Transplant Procedures:2D Echo, Colorflow Doppler, Strain Race:C FINDINGS: LV: LV size is normal. LV [...] noted. TV: No structural TV abnormalities noted. Moderate tricuspid regurgitation Mascorro: LV relaxation is impaired. Other:Estimated PA systolic pressure is 59-64mmHg, assuming a mean RAPof 5-10 mmHg. MEASUREMENTS: 2D Parasternal Long [place] LVOT 1.9 cmLA Ds5.3 cm LVIDd4 cmIndex2 cm/m Ao An1.9 cm LVIDs2.8 cmAo Rtd 2.9 cm Index1.4 cm/m LV%fs 30.2 % LV Bgtq402.8 g(122-174) IVSd 1.1 cmLVM Index 72.5 g/m2 LVPWd1.1 cmRWT0.6 [address] S[address] Plane LA Area 30.6 cm2(8.8-23.4) LA Vol94.6 ml Index47.1 ml/m LA LngAx 8.2 cm DOPPLER LVOT Stroke Vol LVOT 1.9 cmLVOT CO5.1 l/min LVOT TVI22 cmLVOT CI2.5 l/m/m2 LVOT [id number] bpm LVOT SV 62.3 ml Signed 11/18/2018 01:32 PM Sunil Desai M.D. Procedure Note Interface, Radiology Results In - 11/18/2018 1:32 PM [facility] Echocardiography Report [address] [place] [address] Pat.Name: TAQUERIA EJNKINS Pat.ID: [id number] .Date: 11/17/2018 Refer.MD: YASH FONTAINE MD Exam Time: 9:53:00 AM Study Type:Routine Echo Height: 69in Weight: 188lb BSA: 2.01 m2 Age: 2 1945,73Y Sex: MALE BP: 153/79 HR: 88 bpm Sonogrphr: Nadira Rodriguez RDCS, RVT Pat. Stat.:Outpatient Room: OPC 26 Study Status:Final Echo Event ID:[id number] Order ID: [id number] Reason for Study:VAD and Cardiac Transplantation - Monitoring for rejection in a cardiac transplant recipient History / Clinical:Arrhythmias, COPD, Heart Transplant Procedures:2D Echo, Colorflow Doppler, Strain Race: C FINDINGS: LV: LV size is normal. LV [...] noted. TV: No structural TV abnormalities noted. Moderate tricuspid regurgitation Mascorro: LV relaxation is impaired. Other: Estimated PA systolic pressure is 59-64mmHg, assuming a mean RAP of 5-10 mmHg. MEASUREMENTS: 2D Parasternal Long [place] LVOT 1.9 cm LA Ds 5.3 cm LVIDd 4 cm Index 2 cm/m Ao An 1.9 cm LVIDs 2.8 cm Ao Rtd 2.9 cm Index 1.4 cm/m LV%fs 30.2 % LV Mass 145.8 g (122-174) IVSd 1.1 cm LVM Index 72.5 g/m2 LVPWd 1.1 cm RWT 0.6 LA Sng Plane LA Area 30.6 cm2 (8.8-23.4) LA Vol 94.6 ml Index 47.1 ml/m LA LngAx 8.2 cm DOPPLER LVOT Stroke Vol LVOT 1.9 cm LVOT CO 5.1 l/min LVOT TVI 22 cm LVOT CI 2.5 l/m/m2 LVOT Tm 318 msec HR 82 bpm LVOT SV 62.3 ml Signed 11/18/2018 01:32 PM Sunil Desai M.D. 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 COMPARISON: NONE. IMPRESSION: 1.Hepatic echogenicity is normal. The liver is normal size. 3.2 cm simple appearing cyst in the liver. There is no evidence of intrahepatic biliary ductal dilation The common bile duct has normal caliber. The portal vein is patent with normal hepatopetal flow. 2.Cholecystectomy. 3.Limited views of the pancreas are unremarkable. 4.The kidneys are normal size. The kidneys have increased echogenicity, suggestive of medical renal disease. Vascular flow is unremarkable. There is no evidence of hydronephrosis, perinephric fluid, or calculus. Few simple appearing cysts in the right kidney measure up to 1.4 cm. 5.The spleen has normal echogenicity. The spleen is normal size. 6.No evidence of ascites. 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 Atherosclerotic calcifications in the abdominal aorta. Visualized IVC is unremarkable. 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 COMPARISON: NONE. IMPRESSION: 1. Hepatic echogenicity is normal. The liver is normal size. 3.2 cm simple appearing cyst in the liver. There is no evidence of intrahepatic biliary ductal dilation The common bile duct has normal caliber. The portal vein is patent with normal hepatopetal flow. 2. Cholecystectomy. 3. Limited views of the pancreas are unremarkable. 4. The kidneys are normal size. The kidneys have increased echogenicity, suggestive of medical renal disease. Vascular flow is unremarkable. There is no evidence of hydronephrosis, perinephric fluid, or calculus. Few simple appearing cysts in the right kidney measure up to 1.4 cm. 5. The spleen has normal echogenicity. The spleen is normal size. 6. No evidence of ascites. 7. 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 Atherosclerotic calcifications in the abdominal aorta. Visualized IVC is unremarkable. 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 See accession #[id number] [id number] Performing Organization Address [facility] Cent[facility]oco Phone Number 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, Osteopenia COMPARISON:11/08/2017 The results of this study expressed as bone mineral density (BMD) were as follows: AP spine (L1-L4) BMD: 1.624 g/cm2 T-Score: 3.4 Z-Score: 3.7 Percent change: -1.8 Dual Femur (Total Mean): BMD: 1.036 g/cm2 T-Score: -0.5 Z-Score:0.2 Percent change: +0.0 Left femoral neck: BMD: 0.866 g/cm2 T-Score: -1.6 Z score: -0.4 Right femoral neck: BMD: 0.965 g/cm2 T-Score: -0.8 Z score: 0.4 Left Forearm (Radius 33%): BMD: 0.931 g/cm2 T-Score: -0.6 Z-Score: 0.4 Percent change: -1.6 Trabecular Bone Score (TBS): TBS L1-L4: 1.287,(>1.350 normal, 1.200-1.350 partially degraded microarchitecture, <1.200 degraded microarchitecture) Femur FRAX: Risk factors: Chronic glucocorticoids 10 year probability of fracture: 1.Major osteoporotic: 10.3% 2.Hip: 3.3% 3.Based on femur left neck BMD Impression: 1.WHO classification consistent with osteopenia Notes: *The world health organization (WHO) has [...] effect of treatments on patient over time. 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, Osteopenia COMPARISON: 11/08/2017 The results of this study expressed as bone mineral density (BMD) were as follows: AP spine (L1-L4) BMD: 1.624 g/cm2 T-Score: 3.4 Z-Score: 3.7 Percent change: -1.8 Dual Femur (Total Mean): BMD: 1.036 g/cm2 T-Score: -0.5 Z-Score: 0.2 Percent change: +0.0 Left femoral neck: BMD: 0.866 g/cm2 T-Score: -1.6 Z score: -0.4 Right femoral neck: BMD: 0.965 g/cm2 T-Score: -0.8 Z score: 0.4 Left Forearm (Radius 33%): BMD: 0.931 g/cm2 T-Score: -0.6 Z-Score: 0.4 Percent change: -1.6 Trabecular Bone Score (TBS): TBS L1-L4: 1.287, (>1.350 normal, 1.200-1.350 partially degraded microarchitecture, <1.200 degraded microarchitecture) Femur FRAX: Risk factors: Chronic glucocorticoids 10 year probability of fracture: 1. Major osteoporotic: 10.3% 2. Hip: 3.3% 3. Based on femur left neck BMD Impression: 1. WHO classification consistent with osteopenia Notes: *The world health organization (WHO) has [...] effect of treatments on patient over time. [facility]-[id number] [facility] Organization Address City/State/Zipcode Phone Number [facility] [address] [place] [address] XR Chest 2 Vw (11/17/2018 9:12 AM DYNAMOTOR REPAIRER)Only the most recent of2 resultswithin the time period is included. 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 Findings: Lungs and pleural surfaces are clear. Cardiomediastinal silhouette and pulmonary vascularity are within normal limits. There are multiple old right posterior rib fracture deformities. Stable mild left hemidiaphragm elevation. Median sternotomy wires and small portal near the cardiac apex are again noted. Impression: No active cardiopulmonary disease identified. 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 Findings: Lungs and pleural surfaces are clear. Cardiomediastinal silhouette and pulmonary vascularity are within normal limits. There are multiple old right posterior rib fracture deformities. Stable mild left hemidiaphragm elevation. Median sternotomy wires and small portal near the cardiac apex are again noted. Impression: No active cardiopulmonary disease identified. [facility]-[id number] Performing Organization Address City/[facility]/Zipcode Phone Number [facility] [address] [place] [address] Gram stain (11/17/2018 8:32 AM DYNAMOTOR REPAIRER)Only the most recent of2 resultswithin the time period is included. Gram stain result Rare WBC's [facility] Rare Gram negative rods Comment: Specimen Information Specimen Source: Urine Specimen Site: Clean catch Specimen Urine Performing Organization Address City/State/Zipcode Phone Number [facility] DEPARTMENT OF PATHOLOGY AND [address] [place] [address] [facility] [place] [id number] [place] [address] Urine culture (11/17/2018 8:32 AM DYNAMOTOR REPAIRER)Only the most recent of2 resultswithin the time period is included. Urine culture isolate Escherichia coli [facility] 10-5 cfu/ml (A) Comment: Specimen Information Specimen Source: Urine Specimen Site: Clean catch Specimen Urine Organism Antibiotic Method Susceptibility Escherichia coli Ampicillin LESIA >16 mcg/mL: Resistant Escherichia coli Amoxicillin/Clavulanate LESIA 16/8 mcg/mL: Resistant Escherichia coli Amikacin LESIA <=4 mcg/mL: Susceptible Escherichia coli Aztreonam LESIA <=1 mcg/mL: Susceptible Escherichia coli Ceftazidime LESIA <=0.5 mcg/mL: Susceptible Escherichia coli Ciprofloxacin LESIA >2 mcg/mL: Resistant Escherichia coli Ceftriaxone LESIA <=0.5 mcg/mL: Susceptible Escherichia coli Cefuroxime Sodium LESIA 16 mcg/mL: Resistant Escherichia coli Cefazolin LESIA 16 mcg/mL: Resistant Escherichia coli Cefepime LESIA 1 mcg/mL: Susceptible Escherichia coli Nitrofurantoin LESIA <=16 mcg/mL: Susceptible Escherichia coli Cefoxitin LESIA 16 mcg/mL: Resistant Escherichia coli Gentamicin LESIA >8 mcg/mL: Resistant Escherichia coli Imipenem LESIA <=0.25 mcg/mL: Susceptible Escherichia coli Levofloxacin LESIA >4 mcg/mL: Resistant Escherichia coli Meropenem LESIA <=0.125 mcg/mL: Susceptible Escherichia coli Tobramycin LESIA >8 mcg/mL: Resistant Escherichia coli Ampicillin/Sulbactam LESIA >16/8 mcg/mL: Resistant Escherichia coli Trimethoprim/Sulfamethoxazole LESIA >2/38 mcg/mL: Resistant Escherichia coli Tetracycline LESIA >8 mcg/mL: Resistant Escherichia coli Piperacillin/Tazobactam LESIA 32/4 mcg/mL: Resistant Escherichia coli Ertapenem LESIA <=0.125 mcg/mL: Susceptible Escherichia coli Tigecycline LESIA <=0.5 mcg/mL: Susceptible Performing Organization Address City/State/Zipcode Phone Number [facility] DEPARTMENT OF PATHOLOGY AND [address] [place] [address] [facility]IC[facility] [address] [address] Urinalysis screen and microscopy, with reflex to culture (11/17/2018 6:20 AM DYNAMOTOR REPAIRER)Only the most recent of2 resultswithin the time period is included. Specimen site Clean catch [facility] Color, UA Straw [facility] Appearance, UA Clear [facility] Specific gravity, UA 1.011 1.001 - 1.035 [facility] pH, UA 8.0 5.0 - 8.5 [facility] Protein, UA 2+ (A) Negative [facility] Glucose, UA Negative Negative [facility] Ketones, UA Negative Negative [facility] Bilirubin, UA Negative Negative [facility] Blood, UA Negative Negative [facility] Nitrite, UA Negative Negative [facility] Urobilinogen, UA <2.0 <2.0 [facility] Leukocyte esterase, UA Negative Negative [facility] WBC, UA 5 (H) 0 - 1 /HPF [facility] RBC, UA 1 0 - 5 /HPF [facility] Bacteria, UA None seen None seen [facility] Yeast, UA None seen [facility] Yeast with pseudohyphae, UA None seen [facility] Hyaline casts, UA 1 /LPF [facility] Specimen Urine Performing Organization Address City/[facility] Centercode Phone Number [facility] DEPARTMENT OF PATHOLOGY AND [address] [place] [phone] [place] [phone] Estimated GFR (11/17/2018 6:20 AM DYNAMOTOR REPAIRER) Estimated GFR 34 (A) mL/min/1.73 m2 [facility] Comment: HOSPITAL CatergoryUnitsInterpretation G1 >=90 Normal or high G2 60-89Mildly decreased [id number] to moderately decreased E3o77-93Dvfobcoale to severely decreased G4 15-29Severely decreased G5 <15Kidney failure The eGFR was calculated using the Chronic Kidney Disease Epidemiology Collaboration (CKD-EPI) equation. Interpretation is based on recommendations of the National Kidney Foundation-Kidney Disease Outcomes Quality Initiative (NKF-KDOQI) published in 2014. Specimen Plasma specimen Performing Organization Address City/State/Zipcode Phone Number [facility] DEPARTMENT OF PATHOLOGY AND [address] [place] [phone] [place] [phone] Donor specific antibody (11/17/2018 6:20 AM DYNAMOTOR REPAIRER) [facility] Donor specific antibody See link below for PDF [facility] Lab Report Specimen Blood Performing Organization Address City/[facility]/Zipcode Phone Number [facility] DEPARTMENT OF PATHOLOGY AND [address] [address] Tacrolimus level, random (11/17/2018 6:20 AM DYNAMOTOR REPAIRER)Only the most recent of12 resultswithin the time period is included. FK506 level 5.8 ng/mL [facility] Comment: Therapeutic range 5-20 ng/mL for 12 hour trough. The range varies depending on the organ transplanted, time after transplantation and co-administered immunosuppressant therapies. Please use clinical judgment to interpret test result. Test performed using Carter Pin Feather Machine Operator chemiluminescent microparticle immunoassay for Tacrolimus on the MANAGEMENT ARCHITECT i System. Specimen Blood Performing Organization Address City/State/[facility] Centercode Phone Number [facility] DEPARTMENT OF PATHOLOGY AND [address] [place] [address] Troponin (11/17/2018 6:20 AM DYNAMOTOR REPAIRER)Only the most recent of4 resultswithin the time period is included. Troponin <0.30 0.00 - 0.30 ng/mL [facility] Comment: 0.30 - 1.49 ng/mlMay indicate increased risk of acute coronary syndrome. >=1.5 ng/mlConsistent with acute myocardial infarction. The diagnostic value of a single normal or non-diagnostic result is questionable.Serial samples at 2-6 hour intervals are required to rule out acute myocardial injury. Specimen Plasma specimen Performing Organization Address City/[facility] Centercode Phone Number [facility] DEPARTMENT OF PATHOLOGY AND [address] [place] [address] Vitamin D 25 hydroxy level (11/17/2018 6:20 AM DYNAMOTOR REPAIRER) Vitamin D, 25-hydroxy 38.9 30.0 - 150.0 [facility] Comment: ng/mL HOSPITAL This assay reports the sum of [...] alternative methods. Specimen Blood Performing Organization Address City/State/Zipcode Phone Number [facility] DEPARTMENT OF PATHOLOGY AND [address] [place], [place] [phone] [place] [address] Prothrombin time with INR (11/17/2018 6:20 AM DYNAMOTOR REPAIRER)Only the most recent of5 resultswithin the time period is included. Prothrombin time 14.3 11.5 - 14.5 sec [facility] INR 1.1 [facility] Comment: HOSPITAL The International Normalized Ratio (INR) is a therapeutic monitoring tool for patients who are stable on oral anticoagulant therapy. An INR of 2.0-3.0 is suggested for deep vein thrombosis/pulmonary embolism. Specimen Blood Performing Organization Address City/State/Zipcode Phone Number [facility] DEPARTMENT OF PATHOLOGY AND [address] [address] CBC with platelet and differential (11/17/2018 6:20 AM DYNAMOTOR REPAIRER)Only the most recent of15 resultswithin the time period is included. WBC 6.24 4.50 - 11.00 k/uL [facility] RBC 4.11 (L) 4.40 - 6.00 m/uL [facility] HGB 13.5 (L) 14.0 - 18.0 g/dL [facility] HCT 43.1 41.0 - 51.0 % [facility] MCV 104.9 (H) 82.0 - 100.0 fL [facility] MCH 32.8 27.0 - 34.0 pg [facility] MCHC 31.3 31.0 - 37.0 g/dL [facility] RDW - SD 52.8 37.0 - 55.0 fL [facility] MPV 10.7 8.8 - 13.2 fL [facility] Platelet count 143 (L) 150 - 400 k/uL [facility] Nucleated RBC 0.00 /100 WBC [facility] Neutrophils 64.6 39.0 - 69.0 % [facility] Lymphocytes 22.3 (L) 25.0 - 45.0 % [facility] Monocytes 11.5 (H) 0.0 - 10.0 % [facility] Eosinophils 1.0 0.0 - 5.0 % [facility] Basophils 0.3 0.0 - 1.0 % [facility] Immature granulocytes 0.3Comment: "Immature 0.0 - 1.0 % [facility] granulocytes" HOSPITAL (promyelocytes, myelocytes, metamyelocytes) Specimen Blood Performing Organization Address City/[facility] Centercode Phone Number [facility] DEPARTMENT OF PATHOLOGY AND [address] [place] [phone] [place] [address] Uric acid level (11/17/2018 6:20 AM DYNAMOTOR REPAIRER)Only the most recent of2 resultswithin the time period is included. Uric acid 3.7 3.4 - 7.0 mg/dL [facility] Specimen Plasma specimen Performing Organization Address City/[facility] Phone Number [facility] DEPARTMENT OF PATHOLOGY AND [address] [place] [phone] [address] T3 (11/17/2018 6:20 AM DYNAMOTOR REPAIRER) T3 131 80 - 200 ng/dL [facility] Specimen Plasma specimen Performing Organization Address [facility] Phone Number [facility] DEPARTMENT OF PATHOLOGY AND [address] [place] [address] [address] Thyroid stimulating hormone (11/17/2018 6:20 AM DYNAMOTOR REPAIRER) TSH 2.97 0.27 - 4.20 uIU/mL [facility] Specimen Plasma specimen Performing Organization Address City/[facility] Centercode Phone Number [facility] DEPARTMENT OF PATHOLOGY AND [address] [place] [address] [address] T4 (11/17/2018 6:20 AM DYNAMOTOR REPAIRER) T4 6.7 4.5 - 11.7 ug/dL [facility] Specimen Plasma specimen Performing Organization Address City/[facility] Centercode Phone Number [facility] DEPARTMENT OF PATHOLOGY AND [address] [place] [address] Prostate specific antigen (11/17/2018 6:20 AM DYNAMOTOR REPAIRER) PSA 0.8 0.0 - 4.0 ng/mL [facility] Comment: The KEESHA 8000 PSA immunoassay was used. Results obtained with different assay methods or kits should not be used interchangeably and may be different. Specimen Plasma specimen Performing Organization Address City/[facility] Centercode Phone Number [facility] DEPARTMENT OF PATHOLOGY AND [address] [place] [address] Phosphorus level (11/17/2018 6:20 AM DYNAMOTOR REPAIRER)Only the most recent of3 resultswithin the time period is included. Phosphorus 2.9 2.4 - 4.5 mg/dL [facility] Specimen Plasma specimen Performing Organization Address [facility] Phone Number [facility] DEPARTMENT OF PATHOLOGY AND [address] [place], [place] [phone] Parathyroid hormone (11/17/2018 6:20 AM DYNAMOTOR REPAIRER) PTH 137 (H) 15 - 65 pg/mL [facility] Specimen Blood Performing Organization Address [facility] Phone Number [facility] DEPARTMENT OF PATHOLOGY AND [address] [place] [address] B natriuretic peptide (11/17/2018 6:20 AM DYNAMOTOR REPAIRER)Only the most recent of4 resultswithin the time period is included. BNP 155 (H) 0 - 100 pg/mL [facility] Specimen Blood Performing Organization Address [facility] Phone Number [facility] DEPARTMENT OF PATHOLOGY AND [address] [place], [place] [phone] Magnesium level (11/17/2018 6:20 AM DYNAMOTOR REPAIRER)Only the most recent of8 resultswithin the time period is included. Magnesium 2.3 1.6 - 2.4 mg/dL [facility] Specimen Plasma specimen Performing Organization Address [facility] Centercode Phone Number [facility] DEPARTMENT OF PATHOLOGY AND [address] [place] [phone] [address] LDH (11/17/2018 6:20 AM DYNAMOTOR REPAIRER)Only the most recent of4 resultswithin the time period is included. LDH 210 87 - 225 U/L [facility] Specimen Plasma specimen Performing Organization Address City/[facility] Centercode Phone Number [facility] DEPARTMENT OF PATHOLOGY AND [address] [place] [phone] [place] [address] Hemoglobin A1c (11/17/2018 6:20 AM DYNAMOTOR REPAIRER)Only the most recent of2 resultswithin the time period is included. Hemoglobin A1C 6.6 (H) 4.0 - 5.6 % [facility] Comment: HbA1c cutoffs for diagnosing diabetes: 4.0% - 5.6%=normal 5.7% - 6.4%=increased risk for diabetes (prediabetes) >=6.5%=diabetes Goals for glycemic control (ADA 2016) < 7.0%Target for non adults with diabetes. More or less stringent targets may be appropriate for individual patients. <7.5% Target for Children and adolescents with type 1 diabetes. Specimen Blood Performing Organization Address [facility] Cent[facility]ode Phone Number [facility] DEPARTMENT OF PATHOLOGY AND [address] [place] [address] Ionized calcium (11/17/2018 6:20 AM DYNAMOTOR REPAIRER) pH 7.38 [facility] Ionized calcium 1.18 1.11 - 1.32 mmol/L [facility] Specimen Plasma specimen Performing Organization Address City/State/Zipcode Phone Number [facility] DEPARTMENT OF PATHOLOGY AND [address] [place] [phone] [place] [address] Hepatic function panel (11/17/2018 6:20 AM DYNAMOTOR REPAIRER) Albumin 3.9 3.5 - 5.0 g/dL [facility] Total bilirubin 0.4 0.0 - 1.2 mg/dL [facility] Bilirubin direct <0.2 0.0 - 0.3 mg/dL [facility] Alkaline phosphatase 80 40 - 129 U/L [facility] Protein 7.5 6.3 - 8.3 g/dL [facility] Comment: [place] 4.6-7.0 g/dL 1 week 4.4-7.6 g/dL 7 months-1year5.1-7.3 g/dL 1-2 years5.6-7.5 g/dL >3 years6.0-8.0 g/dL 18-150 6.3-8.3 g/dL ALT 34 5 - 50 U/L [facility] AST 27 10 - 50 U/L [facility] Specimen Plasma specimen Performing Organization Address City/State/Zipcode Phone Number [facility] DEPARTMENT OF PATHOLOGY AND [address] [place] [address] GENOMIC MEDICINE [facility] [address] [place] [address] Lipid panel (11/17/2018 6:20 AM DYNAMOTOR REPAIRER) Cholesterol 141 <200 mg/dL [facility] Triglycerides 151 (H) <150 mg/dL [facility] HDL cholesterol 54 >40 mg/dL [facility] LDL cholesterol 76Comment: Result obtained <100 mg/dL [facility] by direct LDL measurement [facility] Lipid panel interpretation SeeBelow [facility] Comment: HOSPITAL Total Cholesterol (mg/dL) <200 Desirable 350-842Rycakbcvei-tegv >=240High Triglycerides (mg/dL) <150 Normal [phone]-pjja 200-499High >=500Very high HDL Cholesterol (mg/dL) <40Low (male) <40Low (female) LDL Cholesterol (mg/dL) <100 Optimal 100-129Near or above optimal [phone]-hhpw 160-189High >=190Very high Risk Catergories that modify [...] mg/dL) Specimen Plasma specimen Performing Organization Address City/[facility] Centercode Phone Number [facility] DEPARTMENT OF PATHOLOGY AND [address] [place] [phone] [place] [address] Basic metabolic panel (11/17/2018 6:20 AM DYNAMOTOR REPAIRER)Only the most recent of9 resultswithin the time period is included. Sodium 148 135 - 148 mEq/L [facility] Potassium 4.7 3.5 - 5.0 mEq/L [facility] Chloride 104 98 - 112 mEq/L [facility] CO2 32 (H) 24 - 31 mEq/L [facility] Anion gap 12@ANIO 7 - 15 mEq/L [facility] BUN 37 (H) 8 - 23 mg/dL [facility] Creatinine 1.87 (H) 0.70 - 1.20 mg/dL [facility] Glucose 92 65 - 99 mg/dL [facility] Calcium 9.6 8.8 - 10.2 mg/dL [facility] Specimen Plasma specimen Performing Organization Address City/[facility] Centercode Phone Number [facility] DEPARTMENT OF PATHOLOGY AND [address] [place] [phone] [place] [address] URINALYSIS, COMPLETE, WITH REFLEX TO CULTURE (10/27/2018)Only the most recent of2 resultswithin the time period is included. Narrative Performed At Urine protein/creatinine ratio, random (10/03/2018) Specimen Urine Narrative Performed At Comprehensive metabolic panel (10/03/2018)Only the most recent of7 resultswithin the time period is included. Specimen Blood Narrative Performed At POC glycosylated hemoglobin (Hb A1C) (06/20/2018 11:53 AM CDT) POC Hemoglobin A1C 6.0 % Specimen Blood Cytomegalovirus by PCR (05/03/2018 7:50 AM CDT)Only the most recent of4 resultswithin the time period is included. Cytomegalovirus by PCR Not-Detected Not-Detected IU/mL [facility] DEPARTMENT OF PATHOLOGY AND GENOMIC MEDICINE Cytomegalovirus by PCR See link below for [facility] DEPARTMENT OF PDF Lab PATHOLOGY AND GENOMIC ReportComment: Case MEDICINE Number: [id number] Performing Organization Address [facility] Centercoco Phone Number [facility] DEPARTMENT OF PATHOLOGY AND [address] [place] [address] GENOMIC MEDICINE Estimated GFR (05/03/2018 7:50 AM CDT)Only the most recent of13 resultswithin the time period is included. GFR Non Af Amer 42 (A) mL/min/1.73 m2 [facility] DEPARTMENT OF PATHOLOGY AND GENOMIC MEDICINE GFR Af Amer 51 (A) mL/min/1.73 m2 [facility] DEPARTMENT OF Comment: PATHOLOGY AND GENOMIC Chronic [...] Americans. Specimen Plasma specimen Performing Organization Address [facility] Centercode Phone Number [facility] DEPARTMENT OF PATHOLOGY AND [address] [place] [address] Pv duplex venous lower extremity (04/29/2018 1:45 PM CDT) Narrative Performed At [facility] Vascular Ultrasound Laboratory Lower Extremity Venous Report [address] [place] [address] Pat.Name:[facility]ERIA JENKINS [facility]t.[facility][id number] .Date: 04/29/2018Refer.MD:JEANINE BERNAL MD Exam Time: 1:27:00 PMStudy Type:LE Venous Height:69inDOBAge:4,72Y Sex: MALESonogrphr: Tawnya Clifford RVT Pat. Stat.:OutpatientTapeVol: [place], CPT - 4: 54983 Echo Event ID:[id number] Order ID:[id number] Reason for Study:Right leg swelling and pain status post fall about 3 weeks ago. Procedures:Colorflow, Grayscale/2D, Pulsed wave Doppler Race:C SUMMARY: DUPLEX SCAN OBSERVATIONS Deep VeinsSuperficial Veins RightLeft RightLeft EIV GSV (prox) Small CFV Normal Normal (above knee) Femoral NormalGSV (dist) Normal Profunda Normal(below knee) Popliteal Normal PT (prox) Normal SSV Normal PT (dist) Normal Peroneal Normal RIGHT:There is normal compressibility with no evidence of echogenic material noted within the lumen of the visualized veins. Colorflow and Doppler signals are normal. LEFT: There is normal compressibility with no evidence of echogenic material noted within the lumen of the common femoral vein. Colorflow and Doppler signals are normal. PRELIMINARY FINDINGS 1. No evidence of venous thrombosis of the visualized veins in the right lower extremity. PHYSICIAN INTERPRETATION Venous examination of the right lower extremity and leftgroin demonstrated no evidence of venous thrombosis in the visualized veins. Normal compressibility and augmentation of all veins visualized. Signed 04/29/2018 03:23 PM Terry Manjarrez MD, RPVI Procedure Note Interface, Radiology Results In - 04/29/2018 3:24 PM CDT Vascular Ultrasound Laboratory Lower Extremity Venous Report [address] [place] [address] Pat.Name: TAQUERIA JENKINS Pat.ID: [id number] .Date: 04/29/2018 Refer.MD: JEANINE BERNAL MD Exam Time: 1:27:00 PM Study Type:LE Venous Height: 69in Age: 2 1945,72Y Sex: MALE Sonogrphr: Tawnya Clifford RVT Pat. Stat.:Outpatient Tape Vol: [place], CPT - 4: 22015 Echo Event ID:[id number] Order ID: [id number] Reason for Study:Right leg swelling and pain status post fall about 3 weeks ago. Procedures:Colorflow, Grayscale/2D, Pulsed wave Doppler Race: C SUMMARY: DUPLEX SCAN OBSERVATIONS Deep Veins Superficial Veins Right Left Right Left EIV GSV (prox) Small CFV Normal Normal (above knee) Femoral Normal GSV (dist) Normal Profunda Normal (below knee) Popliteal Normal PT (prox) Normal SSV Normal PT (dist) Normal Peroneal Normal RIGHT: There is normal compressibility with no evidence of echogenic material noted within the lumen of the visualized veins. Colorflow and Doppler signals are normal. LEFT: There is normal compressibility with no evidence of echogenic material noted within the lumen of the common femoral vein. Colorflow and Doppler signals are normal. PRELIMINARY FINDINGS 1. No evidence of venous thrombosis of the visualized veins in the right lower extremity. PHYSICIAN INTERPRETATION Venous examination of the right lower extremity and left groin demonstrated no evidence of venous thrombosis in the visualized veins. Normal compressibility and augmentation of all veins visualized. Signed 04/29/2018 03:23 PM Terry Manjarrez MD, RPVI Performing Organization Address City/State/Zipcode Phone Number [facility] [address] [place] [address] XR Foot 3+ Vw Right (04/29/2018 1:13 PM CDT) Narrative Performed At EXAMINATION:XR FOOT 3VW RIGHT [facility] CLINICAL HISTORY:Z94.1 Heart transplant status, W19.XXXD Unspecified fallsubsequent encounter, Foot traumaplantar plate injury suspectedinitial exam, post fall from ladder COMPARISON:None. IMPRESSION: There is deformity of the fifth metatarsal as a result of healed previous fracture. There is slight persistent medial displacement of the distal metatarsal causing persistent deformity of this healed bone. Vascular calcifications are seen. No focal osseous lesion is identified. [facility]-[id number] Procedure Note Interface, Radiology Results Incoming - 04/29/2018 2:11 PM CDT EXAMINATION: XR FOOT 3 VW RIGHT CLINICAL HISTORY: Z94.1 Heart transplant status, W19.XXXD Unspecified fall subsequent encounter, Foot trauma plantar plate injury suspected initial exam , post fall from ladder COMPARISON: None. IMPRESSION: There is deformity of the fifth metatarsal as a result of healed previous fracture. There is slight persistent medial displacement of the distal metatarsal causing persistent deformity of this healed bone. Vascular calcifications are seen. No focal osseous lesion is identified. [facility]-[id number] Performing Organization Address [facility] Centercoco Phone Number [facility] [address] [place] [address] XR Tibia Fibula 2 Vw Right (04/29/2018 1:12 PM CDT) Narrative Performed At EXAMINATION:XR TIBIA FIBULA 2 VW RIGHT [facility] CLINICAL HISTORY:Z94.1 Heart transplant status, W19.XXXD Unspecified fallsubsequent encounter, Fracturetib fib, Post fall several week ago . Multiple rib fx. COMPARISON:None. IMPRESSION: Soft tissue clips are noted posterior medial to the knee. There is no evidence of fracture or destructive lesion. There are no soft tissue changes such as gas to suggest infection. Procedure Note Interface, Radiology Results Incoming - 04/29/2018 2:00 PM CDT EXAMINATION: XR TIBIA FIBULA 2 VW RIGHT CLINICAL HISTORY: Z94.1 Heart transplant status, W19.XXXD Unspecified fall subsequent encounter, Fracture tib fib, Post fall several week ago . Multiple rib fx. COMPARISON: None. IMPRESSION: Soft tissue clips are noted posterior medial to the knee. There is no evidence of fracture or destructive lesion. There are no soft tissue changes such as gas to suggest infection. Performing Organization Address [facility]ercoco Phone Number [facility] [address] [place] [address] XR Ankle 3+ Vw Right (04/29/2018 1:12 PM CDT) Narrative Performed At EXAMINATION:XR ANKLE 3VW RIGHT [facility] CLINICAL HISTORY:Z94.1 Heart transplant status, W19.XXXD Unspecified fallsubsequent encounter, Fractureankle, post fall COMPARISON:None. IMPRESSION: 1.The bones are osteopenic. Degenerative changes are seen along the medial malleolus with osteophytosis present. Soft tissue swelling about the medial malleolus is present. Vascular calcifications are seen. Slight lucency in the medial malleolus is seen for which acute fracture cannot be entirely excluded. [facility]-[id number] Procedure Note Interface, Radiology Results Incoming - 04/29/2018 1:35 PM CDT EXAMINATION: XR ANKLE 3 VW RIGHT CLINICAL HISTORY: Z94.1 Heart transplant status, W19.XXXD Unspecified fall subsequent encounter, Fracture ankle, post fall COMPARISON: None. IMPRESSION: 1. The bones are osteopenic. Degenerative changes are seen along the medial malleolus with osteophytosis present. Soft tissue swelling about the medial malleolus is present. Vascular calcifications are seen. Slight lucency in the medial malleolus is seen for which acute fracture cannot be entirely excluded. [facility]-[id number] Performing Organization Address [facility] Centercode Phone Number [facility] [address] [place] [address] Urinalysis, automated with microscopy (03/08/2018 9:14 AM CDT)Only the most recent of2 resultswithin the time period is included. Color, UA Straw [facility] DEPARTMENT OF PATHOLOGY AND GENOMIC MEDICINE Appearance, UA Clear [facility] DEPARTMENT OF PATHOLOGY AND GENOMIC MEDICINE Specific gravity, UA 1.010 1.001 - 1.035 [facility] DEPARTMENT OF PATHOLOGY AND GENOMIC MEDICINE pH, UA 6.0 5.0 - 8.5 [facility] DEPARTMENT OF PATHOLOGY AND GENOMIC MEDICINE Protein, UA 1+ (A) Negative [facility] DEPARTMENT OF PATHOLOGY AND GENOMIC MEDICINE Glucose, UA Negative Negative [facility] DEPARTMENT OF PATHOLOGY AND GENOMIC MEDICINE Ketones, UA Negative Negative [facility] DEPARTMENT OF PATHOLOGY AND GENOMIC MEDICINE Bilirubin, UA Negative Negative [facility] DEPARTMENT OF PATHOLOGY AND GENOMIC MEDICINE Blood, UA Negative Negative [facility] DEPARTMENT OF PATHOLOGY AND GENOMIC MEDICINE Nitrite, UA Negative Negative [facility] DEPARTMENT OF PATHOLOGY AND GENOMIC MEDICINE Urobilinogen, UA <2.0 <2.0 [facility] DEPARTMENT OF PATHOLOGY AND GENOMIC MEDICINE Leukocyte esterase, UA Negative Negative [facility] DEPARTMENT OF PATHOLOGY AND GENOMIC MEDICINE Epithelial cells, UA <1 /HPF [facility] DEPARTMENT OF PATHOLOGY AND GENOMIC MEDICINE WBC, UA 1 0 - 1 /HPF [facility] DEPARTMENT OF PATHOLOGY AND GENOMIC MEDICINE RBC, UA <1 0 - 5 /HPF [facility] DEPARTMENT OF PATHOLOGY AND GENOMIC MEDICINE Bacteria, UA Few None seen [facility] DEPARTMENT OF PATHOLOGY AND GENOMIC MEDICINE Hyaline casts, UA 5 /LPF [facility] DEPARTMENT OF PATHOLOGY AND GENOMIC MEDICINE Yeast, UA None seen [facility] DEPARTMENT OF PATHOLOGY AND GENOMIC MEDICINE Yeast with pseudohyphae, UA None seen [facility] DEPARTMENT OF PATHOLOGY AND GENOMIC MEDICINE Specimen Urine Performing Organization Address City/[facility]/Zipcode Phone Number [facility] DEPARTMENT OF PATHOLOGY AND [address] [place] [address] Ztory MEDICINE Salmonella/shigella culture (02/26/2018 7:52 AM CDT) Salmonella/shigella Salmonella give [facility] DEPARTMENT OF culture isolate Serotyping performed by the [facility], [address] [place] [address] MEDICINE This organism has been reported to the [facility] as required, [address] [facility], [place] [address]. The performance characteristics of this assay on this isolate were validated by the Microbiology Laboratory at [facility].This source has not been approved by the U.S. Food and Drug Administration.The results are not intended to be used as the sole means for clinical diagnosis or patient management.The Microbiology Laboratory is authorized under the clinical Laboratory Improvement Amendments of 1988 (CLIA-88) to perform high complexity testing. This organism has been reported to the [facility] as required, [address] [facility], [place] [address]. (A) Comment: Specimen Information Specimen Source: Stool [...] LESIA 1 mcg/mL: Susceptible Performing Organization Address City/State/[facility]oco Phone Number [facility] DEPARTMENT OF PATHOLOGY AND [address] [place] [address] GENOMIC MEDICINE Gastrointestinal panel (02/26/2018 7:52 AM CDT)Only the most recent of2 resultswithin the time period is included. Gastrointestinal panel Positive for Salmonella species [facility] DEPARTMENT OF PATHOLOGY AND GENOMIC Negative for [...] Specimen Stool - Nonpreserved Performing Organization Address [facility]ercoco Phone Number [facility] DEPARTMENT OF PATHOLOGY AND [address] [place] [address] MEDICINE Manual differential (02/26/2018 5:20 AM CDT) Manual differential PERFORMED [facility] DEPARTMENT OF PATHOLOGY AND GENOMIC MEDICINE Neutrophils 82.0 (H) 39.0 - 69.0 % [facility] DEPARTMENT OF PATHOLOGY AND GENOMIC MEDICINE Lymphocytes 12.0 (L) 25.0 - 45.0 % [facility] DEPARTMENT OF PATHOLOGY AND GENOMIC MEDICINE Monocytes 6.0 0.0 - 10.0 % [facility] DEPARTMENT OF PATHOLOGY AND GENOMIC MEDICINE Eosinophils 0.0 0.0 - 5.0 % [facility] DEPARTMENT OF PATHOLOGY AND GENOMIC MEDICINE Basophils 0.0 0.0 - 1.0 % [facility] DEPARTMENT OF PATHOLOGY AND GENOMIC MEDICINE Metamyelocytes 0 % [facility] DEPARTMENT OF PATHOLOGY AND GENOMIC MEDICINE Promyelocytes 0 % [facility] DEPARTMENT OF PATHOLOGY AND GENOMIC MEDICINE Platelet slide review Decreased (A) [facility] DEPARTMENT OF PATHOLOGY AND GENOMIC MEDICINE Anisocytosis Moderate [facility] DEPARTMENT OF PATHOLOGY AND GENOMIC MEDICINE Ovalocytes Moderate [facility] DEPARTMENT OF PATHOLOGY AND GENOMIC MEDICINE Enlarged platelets Moderate (A) [facility] DEPARTMENT OF PATHOLOGY AND GENOMIC MEDICINE Performing Organization Address City/[facility]ercoco Phone Number [facility] DEPARTMENT OF PATHOLOGY AND [address] [place] [address] MEDICINE Echocardiogram complete w contrast and 3D if needed (02/25/2018 3:00 PM CDT) Narrative Performed At [facility] Echocardiography Report [address] [place] [address].Name:[facility] JENKINS [facility] Hospitalt.ID:[id number] St.Date: 02/25/2018Refer.MD:EBENEZER ESPOSITO MD Exam Time: 2:24:00 PMStudy Type:Routine Echo Height:69inWeight: 198lb BSA: 2.06 m2 DOBAge:1945,72Y Sex: MALEBP:132/68 HR:80 bpmSonogrphr: Tevin Clifford RDCS Pat. Stat.:Inpatient Room:[address] Study Status:Final Echo Event ID:[id number] Order ID:[id number] Reason for Study:Fever in post tx patient, [...] RAPof 5 mmHg. MEASUREMENTS: 2D Parasternal [place] Ds4.2 cmLVPWd1.1 cm LVIDd3.9 cmIndex1.9 cm/m Ao Rtd 2.6 cm Index1.3 cm/m LVIDs2 cm LV Nfsx075.5 g(122-174) LV%fs 49 % LVM Index 85.7 g/m2 IVSd 1.4 cmRWT0.6 DOPPLER LVOT Stroke Vol LVOT 2 cmLVOT CO6 l/min LVOT TVI23.2 cmLVOT CI2.9 l/m/m2 LVOT Tm273 ggzeWE35 bpm LVOT SV 72.9 ml Signed 02/25/2018 09:29 PM Candido Raymond M.D. Procedure Note Interface, Radiology Results In - 02/25/2018 9:29 PM CDT Echocardiography Report [address] [place] [address] Pat.Name: TAQUERIA JENKINS Pat.ID: [id number] .Date: 02/25/2018 Refer.MD: EBENEZER ESPOSITO MD Exam Time: 2:24:00 PM Study Type:Routine Echo Height: 69in Weight: 198lb BSA: 2.06 m2 Age: 2 1945,72Y Sex: MALE BP: 132/68 HR: 80 bpm Sonogrphr: Tevin Clifford RDCS Pat. Stat.:Inpatient Room: [address] Study Status:Final Echo Event ID:[id number] Order ID: [id number] Reason for Study:Fever in post tx patient, [...] of 5 mmHg. MEASUREMENTS: 2D Parasternal [place] Ds 4.2 cm LVPWd 1.1 cm [...] PM Candido Raymond M.D. Performing Organization Address City/State/Zipcode Phone Number [facility] [address] [place] [address] Lactic acid level (02/25/2018 8:15 AM CDT)Only the most recent of3 resultswithin the time period is included. Lactic acid 1.0 0.5 - 2.2 mmol/L [facility] DEPARTMENT OF PATHOLOGY AND GENOMIC MEDICINE Specimen Blood Performing Organization Address [facility]ercoco Phone Number [facility] DEPARTMENT OF PATHOLOGY AND [address] [place] [address] GENOMIC MEDICINE ECG 12 lead (02/25/2018 3:50 AM CDT)Only the most recent of2 resultswithin the time period is included. Ventricular rate 100 [facility] Atrial rate 100 [facility] ND interval 150 [facility] QRSD interval 86 [facility] QT interval 334 [facility] QTC interval 430 [facility] P axis 1 68 [facility] QRS axis 1 79 [facility]USE T wave axis 79 [facility] MUSE EKG impression Normal sinus rhythm-Possible Inferior infarct [facility] MUSE , age undetermined-Poor R wave progression- Performing Organization Address [facility] Phone Number [facility] MUSE [address] [place] [address] XR Chest 1 Vw Portable (02/25/2018 2:35 AM CDT) Narrative Performed At Examination:XR CHEST 1 VW PORTABLE [facility] Clinical History:Cough Comparison: None. Technique: Single frontal view of the chest is obtained. Findings: Cardiomegaly with vascular crowding or congestion are noted. Sternotomy wires are noted. Mild right base atelectasis is seen. No pleural effusion is seen. No pneumothorax is seen. Impression: Cardiomegaly with vascular crowding or congestion and mild right base atelectasis. [facility]-[id number] Procedure Note Interface, Radiology Results Incoming - 02/25/2018 2:40 AM [...] or congestion and mild right base atelectasis. [facility]-[id number] Performing Organization Address [facility] Centercode Phone Number [facility] [address] [place] [address] Respiratory pathogen panel (02/25/2018 2:03 AM CDT)Only the most recent of2 resultswithin the time period is included. Respiratory pathogen Negative for all pathogens tested: [facility] DEPARTMENT OF panel Negative for Adenovirus PATHOLOGY [...] Specimen Nares - Right Performing Organization Address [facility] Phone Number [facility] DEPARTMENT OF PATHOLOGY AND [address] [place] [address] [employer] Blood culture, aerobic & anaerobic (02/25/2018 2:02 AM CDT)Only the most recent of4 resultswithin the time period is included. Blood culture isolate No growth after 5 days of incubation. [facility] DEPARTMENT OF Comment: PATHOLOGY AND GENOMIC Specimen Information MEDICINE Specimen Source: Blood Specimen Site: Hand, left Specimen Blood - Hand, left Performing Organization Address [facility] Phone Number [facility] DEPARTMENT OF PATHOLOGY AND [address] [place] [address] [employer] [facility] Partial thromboplastin time, activated (02/25/2018 2:02 AM CDT) PTT 36.0 23.0 - 36.0 sec [facility] DEPARTMENT OF PATHOLOGY Comment: AND Ztory MEDICINE PTT therapeutic range for unfractionated heparin is 61.0-112.0 seconds which corresponds to Anti-Xa 0.3-0.7 U/ml. Specimen Blood Performing Organization Address [facility] Phone Number [facility] DEPARTMENT OF PATHOLOGY AND [address] [place] [address] Ztory [facility] Aerobic culture (01/19/2018 5:40 PM CDT) Aerobic culture isolate No growth after 3 days. [facility] DEPARTMENT OF PATHOLOGY Comment: AND GENOMIC MEDICINE Specimen Information Specimen Source: Wound Specimen Site: Hand Specimen Wound - Hand Performing Organization Address City/State/Zipcode Phone Number [facility] DEPARTMENT OF PATHOLOGY AND [address] [place] [address] GENOMIC MEDICINE Echocardiogram complete w contrast and 3D if needed (01/18/2018 12:36 PM CDT) Narrative Performed At [facility] Echocardiography Report [address] [facility], [facility] [address], [place] [address] Pat.Name:TAQUERIA JENKINS TPat.ID:[id number] .Date: 01/18/2018 Refer.MD:GENE MUNIZ M.D. Exam Time: 12:15:00 PM Study Type:Routine Echo Height:70inWeight: 192lb BSA: 2.05 m2 DOBAge:1945,72Y Sex: MALEBP:139/68 HR:85 bpmSonogrphr: DMITRIY Enciso Pat. Stat.:Inpatient Room:[facility] Study Status:Final Echo Event ID:[id number] Order ID:[id number] Reason for Study:Post OHT SOB History / [...] RAPof 10 mmHg. MEASUREMENTS: 2D Parasternal Long [place] LVOT 2 cmLA Ds4.3 cm LVIDd4.4 cmIndex2.1 cm/m Ao An2.1 cm LVIDs2.5 cmAo Rtd 2.8 cm Index1.4 cm/m LV%fs 43.2 % LV Cwnd270.3 g(122-174) IVSd 1.3 cmLVM Index 93.3 g/m2 [...] - 01/18/2018 4:51 PM CDT Echocardiography Report [address] [address] Pat.Name: TAQUERIA JENKINS Pat.ID: [id number] .Date: 01/18/2018 Refer.MD: GENE MUNIZ M.D. Exam Time: 12:15:00 PM Study Type:Routine Echo Height: 70in Weight: 192lb BSA: 2.05 m2 Age: 2 1945,72Y Sex: MALE BP: 139/68 HR: 85 bpm Sonogrphr: DMITRIY Enciso Pat. Stat.:Inpatient Room: D 402 Study Status:Final Echo Event ID:[id number] Order ID: [id number] Reason for Study:Post OHT SOB History / [...] of 10 mmHg. MEASUREMENTS: 2D Parasternal Long [place] LVOT 2 cm LA Ds 4.3 cm [...] PM Marlon Rizzo M.D. Performing Organization Address [facility]/State/Zipcode Phone Number [facility] [address] [place] [address] Pv duplex venous upper extremity (01/18/2018 12:00 PM CDT) Narrative Performed At [facility] Vascular Ultrasound Laboratory Upper Extremity Venous Report [address]Name:TAQUERIA JENKINS TPat.ID:[id number] .Date: 01/18/2018 Refer.MD:GENE MUNIZ MD Exam Time: 11:32:00 AM Study Type:UE Venous Height:69inWeight: 192lb BSA: 2.03 m2 DOBAge:1945,72Y Sex: MALESonogrphr: Vianey Morgan RVT Pat. Stat.:Inpatient Room:[address] TapeVol: ZHANNA, CPT - 4: [address] Echo Event ID:[id number] Order ID:[id number] Reason for Study:Left forearm pain and edema.History [...] Vascular Ultrasound Laboratory Upper Extremity Venous Report [address] [place] [address] Pat.Name: TAQUERIA JENKINS Pat.ID: [id number] .Date: 01/18/2018 Refer.MD: GENE MUNIZ MD Exam Time: 11:32:00 AM Study Type:UE Venous Height: 69in Weight: 192lb BSA: 2.03 m2 Age: 2 1945,72Y Sex: MALE Sonogrphr: Vianey Morgan RVT Pat. Stat.:Inpatient Room: [address] Tape Vol: ZHANNA, CPT - 4: [address]004 Echo Event ID:[id number] Order ID: [id number] Reason for Study:Left forearm pain and edema. [...] PM Willi Olivarez MD Performing Organization Address City/State/Zipcode Phone Number [facility] [address] [place] [address] CBC hemogram (01/18/2018 10:15 AM CDT) WBC 17.77 (H) 4.50 - 11.00 k/uL [facility] DEPARTMENT OF PATHOLOGY AND GENOMIC MEDICINE RBC 3.92 (L) 4.40 - 6.00 m/uL [facility] DEPARTMENT OF PATHOLOGY AND GENOMIC MEDICINE HGB 12.6 (L) 14.0 - 18.0 g/dL [facility] DEPARTMENT OF PATHOLOGY AND GENOMIC MEDICINE HCT 39.2 (L) 41.0 - 51.0 % [facility] DEPARTMENT OF PATHOLOGY AND GENOMIC MEDICINE MCV 100.0 82.0 - 100.0 fL [facility] DEPARTMENT OF PATHOLOGY AND GENOMIC MEDICINE MCH 32.1 27.0 - 34.0 pg [facility] DEPARTMENT OF PATHOLOGY AND GENOMIC MEDICINE MCHC 32.1 31.0 - 37.0 g/dL [facility] DEPARTMENT OF PATHOLOGY AND GENOMIC MEDICINE RDW - SD 50.5 37.0 - 55.0 fL [facility] DEPARTMENT OF PATHOLOGY AND GENOMIC MEDICINE MPV 11.1 8.8 - 13.2 fL [facility] DEPARTMENT OF PATHOLOGY AND Ztory MEDICINE Platelet count 123 (L) 150 - 400 k/uL [facility] DEPARTMENT OF PATHOLOGY AND GENOMIC MEDICINE Nucleated RBC 0.00 /100 WBC [facility] DEPARTMENT OF PATHOLOGY AND GENOMIC MEDICINE Specimen Blood Performing Organization Address [facility] Phone Number [facility] DEPARTMENT OF PATHOLOGY AND [address] [place] [address] Immunoglobulin G (01/18/2018 10:15 AM CDT) IgG 759 700 - 1,600 mg/dL [facility] DEPARTMENT OF PATHOLOGY AND GENOMIC MEDICINE Specimen Plasma specimen Performing Organization Address [facility] Phone Number [facility] DEPARTMENT OF PATHOLOGY AND [address] [place] [address] Vancomycin level, random (01/18/2018 10:15 AM CDT) Vancomycin, random 6.1 ug/mL [facility] DEPARTMENT OF PATHOLOGY AND GENOMIC MEDICINE Specimen Serum Performing Organization Address [facility] Phone Number [facility] DEPARTMENT OF PATHOLOGY AND [address] [place] [address] CT Chest Wo Contrast (01/18/2018 9:47 AM CDT) Narrative Performed At EXAMINATION: CT CHEST WO [...] chronic bronchitis without evidence of underlying pneumonia. [facility]-[id number] Procedure Note [facility], Radiology Results Incoming - [...] chronic bronchitis without evidence of underlying pneumonia. [facility]-[id number] Performing Organization Address City/State/Zipcode Phone Number [facility] [address] [place] [address] CT Upper Extremity Wo Left (01/18/2018 9:47 AM CDT) Narrative Performed At EXAMINATION:CT UPPER EXTREMITY WO LEFT [facility] INDICATION:Dislocation. COMPARISON: None available. TECHNIQUE: Helical axial [...] additional findings and details. Performing Organization Address City/State/Zipcode Phone Number [facility] [address] [place] [address] after 12/25/2017 Insurance Payer Benefit Plan / Group Subscriber ID Type Phone Address MEDICARE MEDICARE PART A AND B xxxxxxxxxxx Medicare [place], [place] Plug.dj MED SUPP xxxxxxxxxx Commercial Advance Directives Patient has advance care planning documents on file. For more information, please contact:David Ramirez[address] [place] [address]
--- OUTSIDE RECORDS SUMMARY | 2018-12-26 17:53 | XMS REPORT | Clinical Summary ---
:1945 Author Organization [facility] Address [address] [place] [address] Care Team Providers Name Role Phone Agent, Berenice Bautista Primary Care Provider Allergies Active Allergy Reactions Severity Noted Date Comments Adhesive Tape Other (See Comments) Low 09/14/2018 TEARS SKIN. OK WITH PAPER Medications Medication Sig Dispensed Refills Start Date End Date Status tacrolimus Take 0.5 mg by mouth 0 Active (PROGRAF) 0.5 MG 2 (two) times daily. capsule predniSONE Take 5 mg by mouth 0 Active (DELTASONE) 5 MG daily. tablet amLODIPine Take 5 mg by mouth 0 Active (NORVASC) 5 MG daily. tablet torsemide (DEMADEX) Take 40 mg by mouth 0 Active 20 MG tablet daily. folic acid Take 1 mg by mouth 0 Active (FOLVITE) 1 MG daily. tablet MULTIVITAMIN ORAL Take by mouth. 0 Active aspirin 81 MG EC Take 81 mg by mouth 0 Active tablet daily. labetalol Take 100 mg by mouth 0 Active (NORMODYNE) 100 MG 2 (two) times daily. tablet esomeprazole Take 20 mg by mouth 2 0 Active (NEXIUM) 20 MG (two) times daily. capsule potassium chloride Take 10 mEq by mouth 0 Active SA (K-DUR,KLOR-CON) daily. 10 MEQ tablet allopurinol Take 100 mg by mouth 0 Active (ZYLOPRIM) 100 MG 2 (two) times daily. tablet ALPRAZolam (XANAX) Take 0.5 mg by mouth 0 Active 0.5 MG tablet every night as needed for Anxiety. ferrous sulfate 325 Take 325 mg by mouth 0 Active (65 FE) MG tablet daily with breakfast. gabapentin Take 300 mg by mouth 0 Active (NEURONTIN) 300 MG 3 (three) times capsule daily. isosorbide Take 30 mg by mouth 0 Active dinitrate (ISORDIL) daily. 30 MG tablet magnesium oxide Take 400 mg by mouth 0 Active (MAG-OX) 400 mg 2 (two) times daily. (241.3 mg magnesium) tablet metOLazone Take 2.5 mg by mouth 0 Active (ZAROXOLYN) 2.5 MG as needed. tablet pravastatin Take 80 mg by mouth 0 Active (PRAVACHOL) 80 MG nightly. tablet montelukast Take 10 mg by mouth 0 Active (SINGULAIR) 10 mg as needed. tablet tamsulosin (FLOMAX) Take 0.4 mg by mouth 0 Active 0.4 mg Cap 24 hr daily. capsule insulin aspart Inject subcutaneously 0 Active protamine-insulin 2 (two) times daily aspart (NOVOLOG MIX with breakfast and 70/30) 100 unit/mL dinner. (70-30) injection traMADol (ULTRAM) Take 50 mg by mouth 0 Active 50 mg tablet every 6 (six) hours as needed for Pain. HYDROcodone-acetami Take 1 tablet by 0 Active nophen (NORCO mouth every 6 (six) 5-325) 5-325 mg per hours as needed for tablet Pain. finasteride Take 5 mg by mouth 0 Active (PROSCAR) 5 mg daily. tablet fesoterodine Take by mouth daily. 0 Active (TOVIAZ) 4 mg 24 hr tablet Active Problems No known active problems Encounters Date Type Specialty Care Team Description 10/21/2018 Surgery Shakir Taylor, ABLATION,RADIOFREQU ENCY CERVICAL FACET 10/21/2018 Anesthesia Event Cristóbal Fierro MD 10/21/2018 Hospital Encounter Shakir Taylor MD 10/17/2018 Hospital Encounter Pre-Admission Shakir Taylor Testing MD Resource, Oqmt Preadmit Phone 09/16/2018 Surgery Shakir Taylor, NERVE BLOCK,CERVICAL FACET 09/16/2018 Anesthesia Event Ester Butterfield NP 09/16/2018 Hospital Encounter Shakir Taylor MD 09/15/2018 Hospital Encounter Pre-Admission Resource, Oqmt Testing Preadmit Phone after 12/25/2017 Social History Tobacco Use Types Packs/Day Years Used Date Former Smoker Quit: 1987 Smokeless Tobacco: Never Used Alcohol Use Drinks/Week oz/Week Comments Yes "VERY SELDOM" Sex Assigned at Date Recorded Not on file Job Start Date Occupation Industry Not on file Not on file Not on file Travel History Travel Start Travel End No recent travel history available. Last Filed Vital Signs Vital Sign Reading Time Taken Blood Pressure 128/74 10/21/2018 2:10 PM [employer] TECHNICIAN Pulse 75 10/21/2018 2:10 PM [employer] ENGINEERING TECHNICIAN Temperature 37 C (98.6 F) 10/21/2018 2:10 PM [employer] ENGINEERING TECHNICIAN Respiratory Rate 18 10/21/2018 2:10 PM [employer] ENGINEERING TECHNICIAN Oxygen Saturation 95% 10/21/2018 2:10 PM [employer] ENGINEERING TECHNICIAN Inhaled Oxygen Concentration - - Weight 87.8 kg (193 lb 9.6 oz) 10/21/2018 11:00 AM [employer]AGE ENGINEERING TECHNICIAN Height 175.3 cm (5' 9") 10/21/2018 11:00 AM [employer]AGE ENGINEERING TECHNICIAN Body Mass Index 28.59 10/21/2018 11:00 AM [employer] ENGINEERING TECHNICIAN Plan of Treatment Not on file Procedures Procedure Name Priority Date/Time Associated Diagnosis Comments POCT-GLUCOSE METER Routine 10/21/2018 1:58 Results for this PM [employer] TECHNICIAN procedure are in the results section. FL RED LEAD BURNER IN OR Routine 10/21/2018 1:53 Results for this 30 MINUTE PM [employer] ENGINE[employer]ING TECHNICIAN procedure are in INCREMENTS the results section. ABLATION,RADIOFREQU 10/21/2018 1:30 Spondylosis of ENCY CERVICAL FACET PM [employer] ENGINE[employer] TECHNICIAN cervical region without myelopathy or radiculopathy Case Notes 30 MINS Special Needs (C-ARM) PROCEDURE W/ C-ARM 10/21/2018 1:30 PM SAL[employer]AGE ENGINEERING TECHNICIAN Spondylosis of cervical region without myelopathy or radiculopathy Case Notes 30 MINS Special Needs (C-ARM) POCT-GLUCOSE METER Routine 10/21/2018 12:18 Results for this PM [employer]AGE ENGINEERING TECHNICIAN procedure are in the results section. FL RED LEAD BURNER IN OR 30 Routine 09/16/2018 12:51 Results for this MINUTE INCREMENTS PM [employer]AGE ENGINEERING TECHNICIAN procedure are in the results section. NERVE BLOCK,CERVICAL 09/16/2018 12:46 Spondylosis of FACET PM [employer] ENGINEERING TECHNICIAN cervical region without myelopathy or radiculopathy Case Notes 30 MINS PER FAXOKAYED BY NEENA/JOSE 08/25 @ 12:14 Special Needs (C-ARM/TECH) PROCEDURE W/ C-ARM 09/16/2018 12:46 PM [employer]AGE ENGINEERING TECHNICIAN Spondylosis of cervical region without myelopathy or radiculopathy Case Notes 30 MINS PER FAXOKAYED BY NEENA/JOSE 08/25 @ 12:14 Special Needs (C-ARM/TECH) POCT-GLUCOSE METER Routine 09/16/2018 12:13 PM SALVAGE ENGINEERING TECHNICIAN after 12/25/2017 Results POC-Glucose meter (10/21/2018 1:58 PM SALVAGE ENGINEERING TECHNICIAN)Only the most recent of3 resultswithin the time period is included. POC-Glucose Meter 160 (H)Comment: TESTED AT 70 - 110 mg/dL [facility] [address] [facility] [address] Specimen Blood Performing Organization Address City/State/Zipcode Phone Number [address] [address] CENTER FL radial drill press operator for plastic in or 30 minute increments (10/21/2018 1:53 PM SALVAGE ENGINEERING TECHNICIAN)Only the most recent of2 resultswithin the time period is included. Narrative Performed At FINAL REPORT RIS Fluoroscopy 3 views intraoperative 10/21/2018 1:28 PM CLINICAL HISTORY: Instrument localization COMPARISON: None available IMPRESSION: Please correlate imaging report findings with the procedure note prepared by Dr. Taylor, as an intra-procedure imaging consultation was not requested. Reported fluoroscopy time: 44.5 seconds. Signed: Alexi Castillo MD Report Verified Date/Time:10/21/2018 14:21:41 Reading Location: [facility] Radiology Reading Room Procedure Note Interface, External Ris In - 10/21/2018 2:23 PM SALVAGE ENGINEERING TECHNICIAN FINAL REPORT Fluoroscopy 3 views intraoperative 10/21/2018 1:28 PM CLINICAL HISTORY: Instrument localization COMPARISON: None available IMPRESSION: Please correlate imaging report findings with the procedure note prepared by Dr. Taylor, as an intra-procedure imaging consultation was not requested. Reported fluoroscopy time: 44.5 seconds. Signed: Alexi Castillo MD Report Verified Date/Time: 10/21/2018 14:21:41 Reading Location: [facility] Radiology Reading Room Performing Organization Address City/State/Zipcode Phone Number [facility] after 12/25/2017 Insurance Payer Benefit Plan / Group Subscriber ID Type Phone Address MEDICARE MEDICARE A B xxxxxxxxxxx Medicare MCR GENERIC MEDICARE xxxxxxxxxx [employer] SUPPLEMENT/INDIVIDUAL SUPPLEMENT GEORGE LÓPEZ (Home) [place] [address]
--- OUTSIDE RECORDS SUMMARY | 2018-12-26 17:55 | XMS REPORT | Continuity of Care Document ---
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 [facility] 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 stage 4 chronic kidney disease, or unspecified chronic kidney disease Chronic kidney 11/05/2018 [facility] disease, stage 4 Medical Center Contusion of lung, 11/05/2018 [facility] unilateral, initial Medical encounter Center Acidosis 11/05/2018 [facility] Unspecified 11/05/2018 [facility] fracture of T9-T10 Medical vertebra, initial Center encounter for closed fracture Acute kidney 11/05/2018 [facility] failure, Medical unspecified Center Acute 11/05/2018 [facility] posthemorrhagic Medical anemia Center Heart transplant 11/05/2018 [facility] status [facility] Urinary tract 11/05/2018 [facility] infection, site not Medical specified Center Atelectasis 11/05/2018 [facility] Fall on and from 11/05/2018 [facility] ladder, initial Medical encounter Center Type 2 diabetes 11/05/2018 [facility] mellitus with Medical diabetic chronic Center kidney disease Abrasion of left 11/05/2018 [facility] upper arm, initial Medical encounter Center Hyperlipidemia, 11/05/2018 [facility] unspecified Medical Center Traumatic 11/05/2018 [facility] subcutaneous Medical emphysema, initial Center encounter Acute pain due to 11/05/2018 [facility] trauma [facility]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 Medical [place] Gastro-esophageal 11/05/2018 [facility] reflux disease Medical without esophagitis Center Hyperkalemia 11/05/2018 [facility] Diarrhea, 11/05/2018 [facility] unspecified Medical Center Contusion of 11/05/2018 [facility] abdominal wall, Medical initial encounter Center MULTIPLE FRACTURES Active [facility] OF RIBS, UNSP SIDE, Medical I Center Medications Medication Details Route Status Patient Ordering Order Source Instructions Provider Date gabapentin 300 MG 300 mg=1 cap, Active [place] Oral Capsule PO, BID, # 28 2018 Medical cap, 0 Center Refill(s) methocarbamol 500 1,000 mg=2 tab, No Longer [place] mg oral tablet PO, Q8H, X 14 Active 2018 Medical day, # 84 tab, Center 0 Refill(s) Lidocaine 0.05 1 patch, TOP, Active [facility] MG/MG Transdermal Q24H, # 14 2018 Medical Patch patch, 0 Center Refill(s) Docusate Sodium 100 mg=1 cap, Active [place] 100 MG Oral PO, BID, # 28 2018 Medical Capsule [Colace] cap, 0 Center Refill(s) tramadol 50 mg=1 tab, No Longer [facility] hydrochloride 50 PO, Q6H, X 7 Active 2018 Medical MG Oral Tablet day, # 28 tab, Center 0 Refill(s) polyethylene 17 gm, PO, BID, No Longer [facility] glycol 3350 oral X 14 day, # 12 Active 2018 Medical powder for ea, 0 Refill(s) Center reconstitution Tacrolimus 0.5 mg, 1 cap, No Longer [facility] Route: PO, Drug Active 2017 Medical form: CAP, Center Bedtime, Dosing Weight 87.273, kg, Priority: NOW, Start date: 04/17/18 23:07:00 CDT, Stop date: 05/17/18 20:00:00 CDTNotes: Avoid grapefruit and grapefruit juice. (Same As: Prograf) Methadone 5 mg, 1 tab, No Longer [facility] Route: PO, Drug Active 2017 Medical form: TAB, Q8H, Center Dosing Weight 87.273, kg, Start date: 04/17/18 16:00:00 CDT, Duration: 30 day, Stop date: 05/17/18 8:00:00 CDTNotes: (Same as: Dolophine) Prograf 0.5 mg, 1 cap, No Longer [place] Route: PO, Drug Active 2017 Medical form: CAP, QAM, Center Start date: 04/17/18 8:00:00 CDT, Duration: 30 day, Stop date: 05/16/18 8:00:00 CDTNotes: (Same As: Prograf) remove patch 1 patch, Route: No Longer [place] TOP, Q24H, Drug Active 2017 Medical form: ERFILM, Center Start date: 04/17/18 6:00:00 CDT, Duration: 30 day, Stop date: 05/16/18 6:00:00 CDTNotes: Remove patch 12 hours after application each day. Prograf 1 mg, 1 cap, No Longer [place] Route: PO, Drug Active 2017 Medical form: CAP, QPM, Center Start date: 04/16/18 20:00:00 CDT, Duration: 30 day, Stop date: 05/15/18 20:00:00 CDTNotes: (Same As: Prograf) Lidocaine 0.05 1 patch, Route: No Longer [place] MG/MG Transdermal TOP, Q24H, Drug Active 2017 [...] MG 300 mg, 1 cap, No Longer [place] Oral Capsule Route: PO, Drug Active 2017 Medical form: CAP, BID, Center Dosing Weight 87.273, kg, Start date: 04/16/18 17:00:00 CDT, Duration: 30 day, Stop date: 05/16/18 9:00:00 CDTNotes: (Same as: Neurontin) Fosfomycin 3 gm, 1 pkt, Inactive [place] Route: PO, Drug 2017 Medical form: PDR/REC, [...] Methadone 5 mg, 1 tab, No Longer [place] Route: PO, Drug Active 2017 Medical form: TAB, Q6H, Center Dosing Weight 87.273, kg, Start date: 04/15/18 12:00:00 CDT, Duration: 30 day, Stop date: 05/15/18 6:00:00 CDTNotes: (Same as: Dolophine) Protonix 40 mg, 1 tab, No Longer [place] Route: PO, Drug Active 2017 Medical form: ECTAB, [place] Before Dinner, Dosing Weight 87.273, kg, Start date: 04/14/18 16:30:00 CDT, Duration: 30 day, Stop date: 05/13/18 16:30:00 CDTNotes: Tablet should not be chewed or crushed. (Same as: Protonix) Methadone 5 mg, 1 tab, No Longer [place] Route: PO, Drug Active 2017 Medical form: TAB, [place] Q8H-05, Dosing Weight 87.273, kg, Start date: 04/14/18 13:00:00 CDT, Duration: 30 day, Stop date: 05/14/18 5:00:00 CDTNotes: (Same as: Dolophine) Simethicone 80 mg, 1 tab, No Longer [place] Route: CHEW, Active 2017 Medical Drug form: [place] CHEWTAB, TID, Dosing Weight 87.273, kg, PRN Gas, Start date: 04/13/18 20:35:00 CDT, Duration: 30 day, Stop date: 05/13/18 20:34:00 CDTNotes: (Same as: Mylicon) Isolyte S PH-7.4 500 mL, 125 Inactive [place] (Bolus) IV ml/hr, Route: 2018 Medical IV, Drug Form: [place] TITO, Dosing Weight 87.273, kg, ONCE, Start date: 04/13/18 10:44:00 CDT, Stop date: 04/13/18 10:44:00 CDTNotes: (Same as: Isolyte S PH7.4) multivitamin 1 tab, PO, No Longer [place] Daily Active 2017 [facility] Isolyte S PH-7.4 500 mL, 0 Inactive [facility] (Bolus) IV ml/hr, Route: 2017 Medical IV, Drug Form: [place] TITO, Dosing Weight 87.273, kg, ONCE, Start date: 04/13/18 5:06:00 CDT, Stop date: 04/13/18 5:06:00 CDTNotes: (Same as: Isolyte S PH 7.4) magnesium citrate 300 ml, Route: Inactive [place] 58.2 MG/ML Oral PO, Drug Form: 2017 Medical Solution LIQ, Dosing Center Weight 87.273, kg, ONCE, Start date: 04/12/18 21:31:00 CDT, Stop date: 04/12/18 21:31:00 CDTNotes: (Same as: Citrate of Magnesia) Concentration: 1.745 gm / 30 mL molasses 240 mL, Route: Inactive [place] MN, Drug Form: 2017 Medical SYRP, Dosing Center Weight 87.273, kg, ONCE, Milk of Molasses Enema, Start date: 04/12/18 17:21:00 CDT, Stop date: 04/12/18 17:21:00 CDTNotes: (Same as:Molasses) Flomax 0.4 mg, 1 cap, No Longer [place] Route: PO, Drug Active 2017 Medical form: CAP, Center After Dinner, Dosing Weight 87.273, kg, Start date: 04/12/18 17:00:00 CDT, Duration: 30 day, Stop date: 05/11/18 17:00:00 CDTNotes: (Same As: Flomax) "Do Not Crush" Dulcolax Laxative 10 mg, 1 supp, No Longer [place] Route: MN, Drug Active 2018 Medical form: SUPP, Center Daily, Dosing Weight 87.273, kg, PRN Constipation, Start date: 04/12/18 16:27:00 CDT, Duration: 30 day, Stop date: 05/12/18 16:26:00 CDTNotes: (Same As: Dulcolax, Bisco-Lax) remove patch 2 patch, Route: Inactive [place] TOP, ONCE, Drug 2018 Medical form: ERFILM, Center Start date: 04/12/18 [...] MG 100 mg, 1 cap, No Longer [place] Oral Capsule Route: PO, Drug Active 2017 [...] (Same As: Flomax) "Do Not Crush" sennosides, LONG-TERM 17.2 mg, 2 tab, No Longer [place] [...] as: Roxicodone) Bupivacaine 20 mL, Route: Inactive [place] liposome InFILtration(lo 2018 Medical jacquelyn), Drug Center [...] Dulcolax Laxative 10 mg, 1 supp, Inactive [facility] Route: MN, Drug 2017 Medical form: SUPP, [place] ONCE, Dosing Weight 87.273, kg, Priority: NOW, Start date: 04/10/18 11:54:00 CDT, Stop date: 04/10/18 11:54:00 CDTNotes: (Same As: Dulcolax, Bisco-Lax) Alprazolam 0.5 MG 0.5 mg, 1 tab, No Longer [facility] Oral Tablet Route: PO, Drug Active 2018 Medical [Xanax] form: TAB, TID, Center Dosing Weight 87.273, kg, PRN Anxiety, Start date: 04/10/18 11:37:00 CDT, Duration: 30 day, Stop date: 05/10/18 11:36:00 CDTNotes: With food or milk (Same as: Xanax) Aspirin 81 MG 81 mg, 1 tab, No Longer [facility] Enteric Coated Route: PO, Drug Active 2018 Medical Tablet form: ECTAB, Center Daily, Dosing Weight 87.273, kg, Start date: 04/10/18 9:00:00 CDT, Duration: 30 day, Stop date: 05/09/18 9:00:00 CDTNotes: Do not crush or chew. (Same As: Ecotrin) sennosides, LONG-TERM 17.2 mg, 2 tab, Inactive [place] Route: PO, Drug 2017 Medical Form: TAB, Center Dosing Weight 87.273, kg, Daily, Start date: 04/10/18 9:00:00 CDT, Duration: 30 day, Stop date: 05/09/18 9:00:00 CDTNotes: (Same as: Senokot) Miralax 17 gm, 1 pkt, Inactive [place] Route: PO, Drug 2017 Medical form: PWDR, Center Daily, Dosing Weight 87.273, kg, Start date: 04/10/18 9:00:00 CDT, Duration: 30 day, Stop date: 05/09/18 9:00:00 CDTNotes: Dissolve in 8 oz of water or juice. (Same as: Miralax) Imdur 30 mg, 1 tab, No Longer [place] Route: PO, Drug Active 2017 Medical form: ERTAB, [place] QAM, Dosing Weight 87.273, kg, Start date: 04/10/18 9:00:00 CDT, Duration: 30 day, Stop date: 05/09/18 9:00:00 CDTNotes: (Same as:Imdur) "Do Not Crush" Take on empty stomach/ full glass of water. Do not crush torsemide 20 mg, 1 tab, No Longer [place] Route: PO, Drug Active 2017 Medical form: TAB, Center Daily, Dosing Weight 87.273, kg, Start date: 04/10/18 9:00:00 CDT, Duration: 30 day, Stop date: 05/09/18 9:00:00 CDTNotes: (Same As: Demadex) Alprazolam 0.5 MG 0.5 mg, 1 tab, No Longer [place] Oral Tablet Route: PO, Drug Active 2017 Medical [Xanax] form: TAB, Center Bedtime, Dosing Weight 87.273, kg, PRN Sleep, Start date: 04/09/18 22:31:00 CDT, Duration: 30 day, Stop date: 05/09/18 22:30:00 CDTNotes: With food or milk (Same as: Xanax) Pravastatin 80 mg, 4 tab, No Longer [place] Route: PO, Drug Active 2018 Medical form: TAB, Center Bedtime, Dosing Weight 87.273, kg, Start date: 04/09/18 21:00:00 CDT, Duration: 30 day, Stop date: 05/08/18 21:00:00 CDTNotes: (Same as: Pravachol) Sulfamethoxazole 1 tab, Route: No Longer [place] 800 MG / PO, Drug Form: Active 2018 Medical Trimethoprim 160 TAB, Dosing Center MG Oral Tablet Weight 87.273, [Bactrim] kg, [id number], NOW, Start date: 04/09/18 17:28:00 CDT, Duration: [...] Roxicodone) Lasix 20 mg, 2 mL, Inactive [place] Route: IV, Drug 2018 Medical form: INJ, Center ONCE, Start date: 04/09/18 12:05:00 CDT, Stop date: 04/09/18 12:05:00 CDTNotes: (Same as: Lasix) Oxycodone 5 mg, 1 tab, No Longer [place] Hydrochloride 5 MG Route: PO, Drug Active [...] Laxative 10 mg, 1 supp, No Longer [place] Route: MN, Drug Active 2017 Medical form: SUPP, Center Daily, Dosing Weight 87.273, kg, PRN Constipation, Start date: 04/09/18 10:36:00 CDT, Duration: 30 day, Stop date: 05/09/18 10:35:00 CDTNotes: (Same As: Dulcolax, Bisco-Lax) Labetalol 100 mg, 1 tab, No Longer [place] Route: PO, Drug Active 2017 Medical form: [...] ate Glucagon 1 mg, Route: No Longer [place] IM, Drug form: Active 2018 Medical PDR/INJ, PRN, Center Dosing Weight 87.273, kg, PRN Blood Glucose Results, Start date: 04/09/18 10:22:00 CDT, Duration: 30 day, Stop date: 05/09/18 10:21:00 CDT Dextrose 50% 25 gm, 50 mL, No Longer [place] Syringe Route: IVP, Active 2018 Medical Drug [...] 300 MG 300 mg, 1 cap, Inactive [place] Oral Capsule Route: PO, 2018 Medical ONCE, Dosing Center Weight 87.273, kg, Start date: 04/09/18 8:42:00 CDT, Stop date: 04/09/18 8:42:00 CDT Robaxin 1,000 mg, 2 No Longer [facility] tab, Route: PO, Active 2018 Medical Drug form: TAB, Center Q8H, Dosing Weight 87.273, kg, Start date: 04/09/18 8:00:00 CDT, Stop date: 05/09/18 0:00:00 CDTNotes: (Same as:Robaxin) Tramadol 50 mg, 1 tab, Inactive [facility] Route: PO, Drug 2018 Medical form: TAB, Q6H, Center Dosing Weight 87.273, kg, Start date: 04/09/18 4:00:00 CDT, Duration: 30 day, Stop date: 05/09/18 0:00:00 CDTNotes: Not to exceed 400mg/day. (Same As: Ultra) Streptococcus 0.5 mL, Route: No Longer [place] pneumoniae IM, Drug Form: Active 2018 Medical serotype 1 INJ, ONCALL, [place] capsular antigen Start date: diphtheria [id number] 04/08/18 protein conjugate 22:20:12 CDT, vaccine / Stop date: Streptococcus 05/08/18 pneumoniae 22:15:12 serotype 14 CDTNotes: Shake capsular antigen well prior to diphtheria [id number] use (Same as: protein conjugate Prevnar 13) vaccine / Streptococcus pneumoniae serotype 18C capsular antigen d remove patch 1 patch, Route: No Longer [place] TOP, Daily, Active 2017 Medical Drug form: [place] ERFILM, Start date: 04/08/18 16:00:00 CDT, Duration: 30 day, Stop date: 05/07/18 16:00:00 CDTNotes: Remove patch 12 hours after application each day. Esomeprazole 20 MG 20 mg=1 cap, No Longer [place] Enteric Coated PO, Daily, 0 2017 Medical Capsule [Nexium] Refill(s) Center montelukast 10 MG 10 mg=1 tab, No Longer [place] Oral Tablet PO, PRN, 0 2017 Medical [Singulair] Refill(s) Center Alprazolam 0.5 MG 0.5 mg=1 tab, No Longer [place] Oral Tablet PO, Daily, 0 2017 Medical Refill(s) Center Ferrousal 325 mg 325 mg=1 tab, No Longer [place] oral tablet PO, Daily, 0 2017 Medical Refill(s) Center tamsulosin 0.4 mg 0.4 mg=1 cap, No Longer [place] oral capsule PO, Daily, 0 2017 Medical Refill(s) Center isosorbide 30 mg=1 tab, No Longer [place] mononitrate 30 mg PO, QAM, 0 2017 Medical oral tablet, Refill(s) Center extended release potassium chloride 10 mEq=1 tab, No Longer [place] 10 mEq oral PO, Daily, 0 Active 2017 Medical tablet, extended Refill(s) Center release torsemide 20 mg 20 mg=1 tab, No Longer [facility] oral tablet PO, BID, 0 Active 2017 Medical Refill(s) Center gabapentin 300 MG 300 mg=1 cap, No Longer [facility] Oral Capsule PO, TID, 0 Active 2017 Medical Refill(s) Center Metolazone 2.5 MG 2.5 mg=1 tab, No Longer [facility] Oral Tablet PO, Daily, 0 Active 2017 Medical Refill(s) Center amLODIPine 5 mg 5 mg=1 tab, PO, No Longer [facility] oral tablet Daily, 0 Active 2017 Medical Refill(s) Center labetalol 100 mg 100 mg=1 tab, No Longer [facility] oral tablet PO, BID, 0 Active 2017 Medical Refill(s) Center pravastatin 80 mg 80 mg=1 tab, No Longer [facility] oral tablet PO, Daily, 0 Active 2017 Medical Refill(s) Center allopurinol 100 mg 100 mg=1 tab, No Longer [facility] oral tablet PO, BID, 0 Active 2017 Medical Refill(s) Center magnesium oxide 400 mg=1 tab, No Longer [facility] 400 mg oral tablet PO, BID, 0 Active 2017 Medical Refill(s) Center Folic Acid 1 MG 1 mg=1 tab, PO, No Longer [facility] Oral Tablet Daily, 0 Active 2017 Medical Refill(s) Center Fish Oil 1000 mg 1,000 mg=1 cap, No Longer [facility] oral capsule PO, BID, 0 Active 2017 Medical Refill(s) Center thiamine 100 mg 100 mg=1 tab, No Longer [facility] oral tablet PO, Daily, 0 Active 2017 Medical Refill(s) Center multivitamin Daily, 0 No Longer [facility] Refill(s) Active 2018 Medical Center Calcium Carbonate 1 tab, PO, BID, No Longer [facility] 1500 MG / 0 Refill(s) Active 2018 Medical Cholecalciferol Center 400 UNT Oral Tablet Aspirin 81 MG 81 mg=1 tab, No Longer [facility] Chewable Tablet CHEW, Daily, 0 Active 2017 Medical Refill(s) Center NovoLIN 70/30 24 unit, SUB-Q, No Longer [place] QPM, 0 Active 2017 Medical Refill(s) Center NovoLIN 70/30 18 unit, SUB-Q, No Longer [place] QAM, 0 Active 2017 Medical Refill(s) Center predniSONE 5 mg 5 mg=1 tab, PO, No Longer [place] oral tablet Daily, 0 Active 2017 Medical Refill(s) Center tacrolimus 0.5 mg 0.5 mg=1 cap, No Longer [facility] oral capsule PO, Q12H, 0 Active 2017 Medical Refill(s) Center Prednisone 5 mg, 1 tab, No Longer [place] Route: PO, Drug Active 2017 Medical form: TAB, Center Daily, kg, Start date: 04/08/18 9:00:00 CDT, Duration: 30 day, Stop date: 05/07/18 9:00:00 CDTNotes: Take with food. Tacrolimus 0.5 mg, 1 cap, No Longer [facility] Route: PO, Drug Active 2017 Medical form: CAP, Center G65A-31, kg, Start date: 04/08/18 8:00:00 CDT, Duration: 30 day, Stop date: 05/07/18 20:00:00 CDTNotes: Avoid grapefruit and grapefruit juice. (Same As: Prograf) heparin sodium, 5,000 unit, 1 No Longer [place] porcine 2500 mL, Route: Active 2017 Medical UNT/ML Injectable SUB-Q, Drug Center Solution form: INJ, Q8H, kg, Start date: 04/08/18 8:00:00 CDT, Duration: 30 day, Stop date: 05/08/18 0:00:00 CDTNotes: porcine heparin acetaminophen 1 gm, 2 tab, No Longer [facility] Route: PO, Drug Active 2017 Medical form: TAB, Q6H, Center kg, Priority: NOW, Start date: 04/08/18 7:23:00 CDT, Duration: 30 day, Stop date: 05/08/18 0:00:00 CDTNotes: Max acetaminophen 4000 mg/day (4 gm/day). (Same as: Tylenol Extra Strength) iodixanol 100 mL, Route: Inactive [place] IVP, Drug Form: 2018 Medical SOLN, kg, Center ONCALL, STAT, Start date: 04/08/18 3:59:00 CDT, Duration: 1 doses or times, Dose=2.2ml/kg, Max [id number] -- "To be infused by Radiology Staff ONLY" Lidocaine 2 patch, Route: No Longer [place] Hydrochloride 0.05 TOP, Q24H, Drug Active 2017 Medical MG/MG Transdermal form: FILM, Center Patch [Lidoderm] Start date: 04/08/18 2:00:00 CDT, Stop date: 05/07/18 2:00:00 CDTNotes: (Same as: Lidoderm) "Remove old patch before application of new patch" Oxycodone 10 mg, 2 tab, No Longer [place] Hydrochloride 5 MG Route: PO, Drug Active 2017 Medical Oral Tablet form: TAB, Q4H, Center kg, PRN Pain Score 7-10, Start date: 04/08/18 1:48:00 CDT, Duration: 30 day, Stop date: 05/08/18 1:47:00 CDTNotes: (Same as: Roxicodone) Tramadol 50 mg, 1 tab, No Longer [place] Route: PO, Drug Active 2017 Medical form: TAB, Q8H, Center kg, PRN Pain Score 4-6, Do NOT use for patients with a past medical history of seizures, Start date: 04/08/18 1:48:00 CDT, Duration: 30 day, Stop date: 05/08/18 1:47:00 CDTNotes: Not to exceed 400mg/day. (Same As: Ultram) gabapentin 300 mg, 1 cap, No Longer [place] Route: PO, Drug Active 2017 Medical form: CAP, Q8H, Center kg, Priority: NOW, Start date: 04/08/18 1:46:00 CDT, Stop date: 05/08/18 0:00:00 CDTNotes: (Same as: Neurontin) Acetaminophen 1 gm, 2 tab, Inactive [place] Route: PO, Drug 2017 Medical form: TAB, Center Q6H-02, kg, Priority: NOW, Start date: 04/08/18 1:46:00 CDT, Duration: 30 day, Stop date: 05/07/18 20:00:00 CDTNotes: Max acetaminophen 4000 mg/day (4 gm/day). (Same as: Tylenol Extra Strength) Fentanyl 100 microgram, No Longer [facility] 2 mL, Route: Active 2017 Medical IVP, Drug form: Center INJ, ONCE, kg, Priority: STAT, Start date: 04/07/18 23:37:00 CDT, Stop date: 04/07/18 23:37:00 CDTNotes: (Same as: Sublimaze) Preservative free. Saline Flush 0.9% 10 mL, Route: No Longer [facility] IVP, Drug Form: Active 2017 Medical INJ, kg, PRN, [place] PRN Line Flush, Start date: 04/07/18 23:37:00 CDT, Duration: 30 day, Stop date: 05/07/18 23:36:00 CDTNotes: (Same as: BD Posiflush) Allergies, Adverse Reactions, Alerts Substance Category Reaction Severity Reaction Status Date Comments Source type Reported Immunizations Immunization Date Given Site Status Last Updated Comments Source Results Order Name Results Value Reference Date Interpretation Comments Source Range TOXICOLOGY Tacrolimus 3.3 ng/mL 5.0 - 15.0 04/18 [facility] /2017 [facility] CHEM PANEL Creatinine 1.61 mg/dL 0.50 - 04/17 [facility] [place] 1.40 [facility] CHEM PANEL eGFR 42 04/17 Result Comment: The eGFR is calculated using the CKD-EPI formula. In most young, healthy individuals the eGFR will be >90 mL/ min/1.73m2. The eGFR declines with age. An eGFR of 60-89 may be normal in [facility] mL/min/1.7 some populations, particularly the elderly, for whom the CKD-EPI formula has not been extensively validated. Use of the eGFR is not recommended in the following populations: [address] Individuals with unstable creatinine concentrations, including [...] BMI. CHEM PANEL BUN 53 mg/dL 04/17 [facility] /[address] [place] [address] CHEM PANEL Glucose Lvl 146 mg/dL 70 - 99 04/[address] CHEM PANEL Sodium Lvl 134 meq/L 135 - 145 04/[address] CHEM PANEL Potassium Lvl 4.9 meq/L 3.5 - 5.1 04/[address] CHEM PANEL Chloride Lvl 99 meq/L 95 - 109 04/[address] CHEM PANEL CO2 25 meq/L 04/[address] CHEM PANEL Calcium Lvl 8.6 mg/dL 8.5 - 10.5 04/[address] CHEM PANEL AGAP 14.9 meq/L 10.0 - 04/17 .0 [facility] TOXICOLOGY Tacrolimus null 5.0 - 15.0 04/16 [facility] CHEM PANEL Glucose Lvl 125 mg/dL 70 - 99 04/[address] CHEM PANEL Creatinine 1.65 mg/dL 0.50 - 04/16 [facility] 1. [facility] CHEM PANEL BUN 51 mg/dL 04/[address] CHEM PANEL Chloride Lvl 100 meq/L 95 - 109 04/[address] CHEM PANEL Sodium Lvl 136 meq/L 135 - 145 04/[address] CHEM PANEL CO2 27 meq/L 04/[address] CHEM PANEL Potassium Lvl 5.2 meq/L 3.5 - 5.1 04/[address] CHEM PANEL eGFR 40 04/16 Result Comment: The eGFR is calculated using the CKD-EPI formula. In most young, healthy individuals the eGFR will be >90 mL/ min/1.73m2. The eGFR declines with age. An eGFR of 60-89 may be normal in [facility] mL/min/1. some populations, particularly the elderly, for whom the CKD-EPI formula has not been extensively validated. Use of the eGFR is not recommended in the following populations: [address] Individuals with unstable creatinine concentrations, including [...] PANEL AGAP 14.2 meq/L 10.0 - 04/16 [facility] CHEM PANEL Calcium Lvl 8.4 mg/dL 8.5 - 10.5 04/[address] CHEM PANEL eGFR 37 04/15 Result Comment: The eGFR is calculated using the CKD-EPI formula. In most young, healthy individuals the eGFR will be >90 mL/ min/1.73m2. The eGFR declines with age. An eGFR of 60-89 may be normal in [facility] mL/min/1. some populations, particularly the elderly, for whom the CKD-EPI formula has not been extensively validated. Use of the eGFR is not recommended in the following populations: [address] Individuals with unstable creatinine concentrations, including [...] Lvl 5.6 meq/L 3.5 - 5.1 04/[address] CHEM PANEL Chloride Lvl 99 meq/L 95 - 109 04/15 [address] [address] CHEM PANEL CO2 29 meq/L 24 - 32 04/[address] CHEM PANEL Calcium Lvl 8.9 mg/dL 8.5 - 10.5 04/[address] CHEM PANEL AGAP 14.6 meq/L 10.0 - 04/15 [facility] CHEM PANEL BUN 56 mg/dL 7 - 22 04/[address] CHEM PANEL Glucose Lvl 153 mg/dL 70 - 99 04/[address] CHEM PANEL Sodium Lvl 137 meq/L 135 - 145 04/[address] CHEM PANEL Creatinine 1.77 mg/dL 0.50 - 04/15 [facility] Lvl 1.40 [facility] CHEM PANEL Phosphorus 4.1 mg/dL 2.5 - 4.5 04/[address] CHEM PANEL Magnesium Lvl 2.8 mg/dL 1.8 - 2.4 04/13 [facility] HEMATOLOGY Segs 87.0 % 45.0 - 04/13 [place] 75.0 /2017 [facility] HEMATOLOGY Neutrophils # 6.6 K/CMM 1.5 - 8.1 04/[address] HEMATOLOGY Lymphocytes 7.0 % 20.0 - 04/13 [place] 40.0 [facility] HEMATOLOGY Monocytes 6.0 % 2.0 - 12.0 04/[address] HEMATOLOGY Lymphocytes # 0.6 K/CMM 1.0 - 5.5 04/[address] [place] [address] HEMATOLOGY Monocytes # 0.4 K/CMM 0.0 - 0.8 04/[address] HEMATOLOGY MCH 32.6 pg 27.0 - 04/13 [facility] 31.0 [facility] HEMATOLOGY MCHC 33.9 g/dL 32.0 - 04/13 [facility] 36.0 [facility] HEMATOLOGY RDW 15.3 % 11.5 - 04/13 [facility] 14.5 [facility] HEMATOLOGY Platelet 136 K/CMM 133 - 450 04/[address] HEMATOLOGY MPV 9.6 fL 7.4 - 10.4 04/[address] HEMATOLOGY WBC X 10x3 7.6 K/CMM 3.7 - 10.4 04/[address] HEMATOLOGY Hct 31.0 % 42.0 - 04/13 [facility] 54.0 [facility] HEMATOLOGY MCV 96.1 fL 80.0 - 04/13 [facility] 94.0 [facility] HEMATOLOGY RBC X 10x6 3.22 M/CMM 4.70 - 04/13 [facility] 6.10 [facility] HEMATOLOGY Hgb 10.5 g/dL 14.0 - 04/13 [facility] 18.0 [facility] Chest 1view Chest 1view EXAM: XR CHEST 1 VIEW 04/13 - [facility] DX DX [facility] DATE: 04/13/2018 Read by: Debra Bell MD [...] Phosphorus 3.6 mg/dL 2.5 - 4.5 04/[address] [place] [address] CHEM PANEL Magnesium Lvl 2.4 mg/dL 1.8 - 2.4 04/[address] HEMATOLOGY Segs 84.1 % 45.0 - 04/12 [place] 75.0 [facility] HEMATOLOGY Lymphocytes # 0.9 K/CMM 1.0 - 5.5 04/[address] HEMATOLOGY Basophils 0.2 % 0.0 - 1.0 04/[address] HEMATOLOGY Eosinophils 0.4 % 0.0 - 4.0 04/[address] HEMATOLOGY Neutrophils # 9.2 K/CMM 1.5 - 8.1 04/[address] HEMATOLOGY Monocytes 6.7 % 2.0 - 12.0 04/[address] HEMATOLOGY Lymphocytes 8.6 % 20.0 - 04/12 [place] 40.0 [facility] HEMATOLOGY Monocytes # 0.7 K/CMM 0.0 - 0.8 04/[address] HEMATOLOGY Platelet 116 K/CMM 133 - 450 04/[address] HEMATOLOGY RDW 15.3 % 11.5 - 04/12 [place] 14.5 [facility] HEMATOLOGY MCV 96.8 fL 80.0 - 04/12 [place] 94.0 [facility] HEMATOLOGY MCH 31.8 pg 27.0 - 04/12 [place] 31.0 [facility] HEMATOLOGY Hgb 10.6 g/dL 14.0 - 04/12 [place] 18.0 [facility] HEMATOLOGY RBC 3.32 M/CMM 4.70 - 04/12 [place] 6.10 [facility] HEMATOLOGY MCHC 32.8 g/dL 32.0 - 04/12 [place] 36.0 [facility] HEMATOLOGY Hct 32.2 % 42.0 - 04/12 [place] 54.0 [facility] HEMATOLOGY MPV 9.7 fL 7.4 - 10.4 04/[address] HEMATOLOGY WBC 10.9 K/CMM 3.7 - 10.4 04/[address] Chest 1view Chest 1view EXAM: XR CHEST 1 VIEW 04/12 - [facility] DX DX - [facility] DATE: 04/12/2018 3:00 AM CDT [...] No significant change from prior chest radiograph. TOXICOLOGY Tacrolimus 4.3 ng/mL 5.0 - 15.0 04/11 [facility] Lvl [facility] HEMATOLOGY Lymphocytes 7.8 % 20.0 - 04/11 [facility] 40.0 [facility] HEMATOLOGY Monocytes 7.6 % 2.0 - 12.0 04/[address] HEMATOLOGY Eosinophils 0.6 % 0.0 - 4.0 04/[address] HEMATOLOGY Neutrophils # 9.1 K/CMM 1.5 - 8.1 04/[address] HEMATOLOGY Basophils 0.2 % 0.0 - 1.0 04/[address] HEMATOLOGY Lymphocytes # 0.8 K/CMM 1.0 - 5.5 04/[address] HEMATOLOGY Monocytes # 0.8 K/CMM 0.0 - 0.8 04/[address] HEMATOLOGY Eosinophils # 0.1 K/CMM 0.0 - 0.5 04/[address] HEMATOLOGY Segs 83.8 % 45.0 - 04/11 [facility] 75.0 [facility] HEMATOLOGY RBC 3.33 M/CMM 4.70 - 04/11 [place] 6.10 [facility] HEMATOLOGY WBC 10.8 K/CMM 3.7 - 10.4 04/[address] HEMATOLOGY RDW 15.2 % 11.5 - 04/11 [place] 14.5 [facility] HEMATOLOGY Platelet 118 K/CMM 133 - 450 04/11 [facility] HEMATOLOGY MPV 9.6 fL 7.4 - 10.4 04/11 [facility] HEMATOLOGY MCHC 33.5 g/dL 32.0 - 04/11 36.0 /2017 [facility] HEMATOLOGY MCH 32.3 pg 27.0 - 04/11 31.0 [facility] HEMATOLOGY Hct 32.1 % 42.0 - 04/11 [place] 54.0 /2017 [facility] HEMATOLOGY MCV 96.2 fL 80.0 - 04/11 [facility] 94.0 /2017 [facility] HEMATOLOGY Hgb 10.8 g/dL 14.0 - 04/11 [facility] 18.0 [facility] Abdomen AP Abdomen AP DX EXAM: XR ABDOMEN 1 VIEW 04/11 [facility] DATE: 04/11/2018 3:00 AM CDT Read by: [...] 1view EXAM: XR CHEST 1 VIEW 04/11 - [facility] [address] [place] [address] DATE: 04/11/2018 3:00 AM CDT Read by: [...] EXAM: XR ABDOMEN 1 VIEW 04/10 - [facility] /2017 [facility] DATE: 04/10/2018 7:52 AM CDT Read by: [...] EXAM: XR CHEST 1 VIEW 04/10 - [facility] DATE: 04/10/2018 3:00 AM CDT [...] atherosclerotic disease. 5. Osseous structures are stable. 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 Multi [facility] Resistant [facility]ism Center LESIA . Corrected Report Is: >100,000 CFU/mL Escherichia coli . Upon Supplemental Testing, This Organism Was Not Found To Produce An Extended Spectrum Beta Lactamase (ESBL). Phone Report Made To: Ivania Guzman at [facility] 8JNP At: 04/13/2018 08:13 Called By: HP Read Back Ok GENTAMICIN: Escherichia Escherichi 04/09 [facility] SUSC:PT:ISO coli a coli /2017 Medical LATE:ORDQN: Center LESIA DRUG SCREEN U Amph Scr Negative Negative 04/09 [facility] *NA* [place] (04/09/18 1:42 PM) DRUG SCREEN U Cannab [facility] [place] [facility]04/09/18 1:42 PM) DRUG SCREEN U Negative Negative 04/09 [facility] Phencyclidine /2017 [facility] *NA* [place] (04/09/18 1:42 PM) DRUG SCREEN U Opiate Scr Positive Negative [facility] [place] (04/09/18 1:42 PM) DRUG SCREEN UDS Note See Note 04/09 [facility] (04/09/18 1:42 PM) [place] DRUG SCREEN U Maureen Scr Negative Negative 04/09 [facility] *NA* [place] (04/09/18 1:42 PM) DRUG SCREEN U Cocaine Scr Negative Negative [facility] [place] (04/09/18 1:42 PM) DRUG SCREEN U Benzodiaz Negative Negative 04/09 [facility] [place] (04/09/18 1:42 PM) URINE AND UA <=1.0 0.1 - 1.0 04/09 [facility] Urobilinogen mg/dL /2017 [facility] URINE AND UA Sq Epi None Seen 04/09 [facility] STOOL [facility] URINE AND UA Blood Large Negative 04/09 [facility] [place] (04/09/18 1:42 PM) URINE AND UA Nitrite Negative Negative 04/09 [facility] (04/09/18 1:42 PM) [place] URINE AND UA Leuk Est Large Negative 04/09 [facility] *ABN* [place] (04/09/18 1:42 PM) URINE AND UA WBC null 0 - 5 04/[address] URINE AND UA RBC 125 /HPF 0 - 2 04/[address] URINE AND UA Glucose Negative Negative 04/09 [facility] mg/dL mg/dL [address] [place] [address] URINE AND UA Ketones Negative Negative 04/09 [facility] mg/dL mg/dL [address] [place] [address] URINE AND UA Bili Negative Negative 04/[address] *NA* Center (04/09/18 1:42 PM) URINE AND UA Bacteria Occasional None Seen 04/09 [facility] STOOL /HPF /HPF /2017 [facility] URINE AND UA Color Yellow Yellow 04/09 [address] [place] (04/09/18 1:42 PM) URINE AND UA Turbidity Marked Clear 04/09 [facility] [address] [place], [place] [address]ABN* [place] (04/09/18 1:42 PM) URINE AND UA Spec Grav 1.013 <=1.030 04/[address] URINE AND UA pH 5.5 5.0 - 8.0 04/[address] URINE AND UA Protein 100 mg/dL Negative 04/09 [facility] mg/dL /[address] [place] [address] Chest 1view Chest 1view EXAM: XR CHEST 1 VIEW 04/09 - [facility] DX DX - [facility] DATE: 04/09/2018 10:39 AM CDT Read [...] Basophils 0.2 % 0.0 - 1.0 04/[address] HEMATOLOGY Eosinophils 0.8 % 0.0 - 4.0 04/[address] HEMATOLOGY Eosinophils # 0.1 K/CMM 0.0 - 0.5 04/[address] Chest 1view Chest 1view EXAM: XR CHEST 1 VIEW 04/08 - [facility] DX DX - [facility] This report was dictated by a Television And Radio Repairer/Fellow. I have personally reviewed the images as [...] Hyal Cast 6-10 0 - 2 04/08 [facility] /2017 [facility] (04/08/18 12:20 AM) [place] URINE AND UA Coarse 6-10 /LPF None Seen 04/08 [facility] STOOL Gran /LPF /[address] [place] [address] URINE AND UA Color Yellow Yellow 04/08 [facility]2017 [facility] *NA* [place] (04/08/18 12:20 AM) URINE AND UA Glucose Negative Negative 04/08 [facility] /2017 [facility] (04/08/18 12:20 AM) [place] URINE AND UA Protein 30 mg/dL Negative 04/08 [facility] STOOL mg/dL /2017 [facility] URINE AND UA pH 5.5 5.0 - 8.0 04/08 [facility] STOOL /2018 [facility] URINE AND UA Spec Grav 1.025 <=1.030 04/08 [facility] STOOL /2018 [facility] URINE AND UA Turbidity Slight Cloudy Clear 04/08 [facility] STOOL /2017 [facility] (04/08/18 12:20 AM) Center URINE AND UA Nitrite Negative Negative 04/08 [facility] /2017 [facility] (04/08/18 12:20 AM) [place] URINE AND UA 0.2 EU/dL 0.1 - 1.0 04/08 [facility] Urobilinogen /2017 [facility] URINE AND UA Blood Large Negative 04/08 [facility] /2017 [facility] *ABN* Center (04/08/18 12:20 AM) URINE AND UA Bili Negative Negative 04/08 [facility] *NA* [place] (04/08/18 12:20 AM) URINE AND UA Ketones Negative Negative 04/08 [facility] [place] (04/08/18 12:20 AM) URINE AND UA Bacteria Few /HPF None Seen 04/08 [facility] /[facility] /2018 [facility] URINE AND UA RBC 21-50 /HPF 0 - 2 04/08 [facility] /2018 [facility] URINE AND UA WBC 1-3 04/08 [facility] /[address] [place] [address] URINE AND UA Sq Epi Occasional Few /LPF 04/08 [facility] STOOL /LPF /[address] [place] [address] URINE AND UA Leuk Est Negative Negative 04/08 [facility] /2017 [facility] (04/08/18 12:20 AM) Center BLOOD BANK Antibody Scrn Negative 04/08 [facility] RESULTS /2017 [facility] (04/07/18 11:50 PM) Center BLOOD BANK ABO/Rh A POS 04/08 [facility] RESULTS /2017 [facility] CHEM PANEL Lactic Acid 0.8 mMol/L 0.5 - 2.2 04/08 [facility] Lvl /2017 [facility] CHEM PANEL Total Protein 7.0 g/dL 6.4 - 8.4 04/[address] CHEM PANEL Albumin Lvl 3.7 g/dL 3.5 - 5.0 04/[address] CHEM PANEL ALT 46 unit/L 0 - 65 04/[address] CHEM PANEL AST 60 unit/L 0 - 37 04/[address] CHEM PANEL Alk Phos 65 unit/L 39 - 136 04/[address] CHEM PANEL Bili Total 0.7 mg/dL 0.2 - 1.3 04/[address] CHEM PANEL Bili Indirect 0.6 mg/dL 0.0 - 1.0 04/[address] CHEM PANEL Bili Direct 0.1 mg/dL 0.0 - 0.3 04/[address] CHEM PANEL A/G Ratio 1.1 0.7 - 1.6 04/[address] CHEM PANEL Globulin 3.3 g/dL 2.7 - 4.2 04/[address] HEMATOLOGY PTT 29.3 s 22.9 - 04/08 [facility] 35.8 [facility] HEMATOLOGY INR 1.19 0.85 - 04/08 [facility] 1.17 [facility] HEMATOLOGY PT 15.2 s 12.0 - 04/08 [facility] 14.7 [facility] HEMATOLOGY Estimated % 1.1 % 0.0 - 7.5 04/08 [facility] Lysis [facility] HEMATOLOGY ACT (TEG) 97 s 86 - 118 04/[address] HEMATOLOGY G-value Rapid 8.1 K d/sc 5.0 - 11.6 04/[address] HEMATOLOGY [place] 0.4 min 04/[address] HEMATOLOGY R-time Rapid 0.5 min 0.4 - 0.7 04/[address] HEMATOLOGY Angle Rapid 76 degrees 64 - 80 04/[address] HEMATOLOGY Max Amplitude 62 mm 52 - 71 04/[address] HEMATOLOGY K-time Rapid 1.2 min 0.6 - 2.3 04/[address] TOXICOLOGY Etoh (%) null 04/[address] TOXICOLOGY Ethanol Lvl null 04/[address] Spine Spine EXAM: CT CERVICAL SPINE WITHOUT CONTRAST 04/08 - [facility] cervical wo cervical - Medical contrast CT contrast CT This report was dictated by a Television And Radio Repairer/Fellow. I have personally reviewed the images as [...] fracture or malalignment of the cervical spine. Brain wo Brain wo EXAM: CT BRAIN WITHOUT CONTRAST 04/08 [facility] contrast CT contrast CT /2017 - [facility] This report was dictated by a Television And Radio Repairer/Fellow. I have personally reviewed the images as Center well as the Resident's interpretation and agree with the findings. DATE: 04/08/2018 2:38 AM CDT Read by: Christiano Cervantes MD Resident: Christiano Cervantes MD Dictated Date/time: 04/08/18 03:56 Electronically Signed [...] the preliminary report by the overnight resident. Chest/Abdom Chest/Abdomen EXAM: CT CHEST WITH CONTRAST 04/08 - [facility] en/Pelvis w /Pelvis w IV /2017 - Medical IV contrast contrast CT EXAM: CT ABDOMEN AND PELVIS WITH CONTRAST This report was dictated by a Television And Radio Repairer/Fellow. I have personally reviewed the images as [...] aorta. 8. Severe calcific atherosclerosis. 9. Cardiomegaly. Chest 1view Chest 1view EXAM: XR CHEST 1 VIEW 04/07 - [facility] DX DX /2018 - Medical This report was dictated by a Television And Radio Repairer/Fellow. I have personally reviewed the images as [...] Date Comments Source Respitory Rate 16 04/18/2018 [facility] Heart Rate 80 04/18/2018 [facility] Systolic (mm Hg) 143 04/18/2018 [facility] Diastolic (mm Hg) 75 04/18/2018 [facility] Temperature Oral (F) 97.5 F 04/18/2018 [facility] Heart Rate 76 04/18/2018 [facility] Respitory Rate 16 04/18/2018 [facility] Temperature Oral (F) 97.8 F 04/18/2018 [facility] Systolic (mm Hg) 130 04/18/2018 [facility] Diastolic (mm Hg) 73 04/18/2018 [facility] Systolic (mm Hg) 142 04/18/2018 [facility] Diastolic (mm Hg) 86 04/18/2018 [facility] Temperature Oral (F) 97.5 F 04/18/2018 [facility] Heart Rate 78 04/18/2018 [facility] Respitory Rate 16 04/18/2018 [facility] Weight 87.273 04/09/2018 [facility] BMI Calculated 28.41 04/09/2018 [facility] Height 175.26 cm 04/09/2018 [facility] Encounters Location Location Encounter Encounter Reason Attending ADM DC Status Source Details Type Number For Provider Date Date Visit [facility]patient [id number] [facility] 04/19 JAIDEN Lo /2017 [facility] Procedures Procedure Code Date Perfomer Comments Source
--- OUTSIDE RECORDS SUMMARY | 2018-12-26 17:57 | XMS REPORT ---
:1945 [facility] Address [address] [place] [address] [address] [place] [address] Care Team Providers Name Role Phone AICHA TAYLORGLEN GASCA Unavailable Unavailable Problems This patient has no known problems. Allergies, Adverse Reactions, Alerts This patient has no known allergies or adverse reactions. Medications This patient has no known medications. Results Test Description Test Time Test Comments Text Results Atomic Results Result Comments [place] [employer] IN 2018-10-21 Reason for FINAL REPORT PATIENT OR/30 MINUTE 14:21:00 exam:->bilateral ID: [id number] INCREMENTS C3,C4,C5 medical branch Fluoroscopy 3 views raiofrequency ablation intraoperative 10/21/2018 1:28 PM CLINICAL HISTORY: Instrument localization COMPARISON: None available IMPRESSION: Please correlate imaging report findings with the procedure note prepared by Dr. Taylor, as an intra-procedure imaging consultation was not requested. Reported fluoroscopy time: 44.5 seconds. Signed: Alexi Castillo Verified Date/Time: 10/21/2018 14:21:41 Reading Location: [facility] Radiology Reading Room -GLUCOSE METER 2018-10-21 14:02:00 Test Item Value Reference Range Comments POC-GLUCOSE METER (BEAKER) (test 160 mg/dL 70-[address] [facility] [address] [facility] smcy=[id number]) [facility] [id number] POCT-GLUCOSE [id number] 12:28:00 Test Item Value Reference Range Comments POC-GLUCOSE METER (BEAKER) 158 mg/dL 70-110 TESTED AT [place] [id number] [facility] (test pqiw=1980) [facility] [address] [place], SUPER[employer] IN OR/30 MINUTE [id number] 13:42:00Reason for exam:-> bilateral C3-C5 Medial Branch BlockFINAL REPORT Fluoroscopy 4 views intraoperative 09/16/2018 1:37 PM CLINICAL HISTORY: Instrument localization COMPARISON: None available IMPRESSION: Please correlate imaging report findings with the procedure note prepared by Dr. Taylor, as an intra-procedure imaging consultation was not requested. Reported fluoroscopy time: 35.8 seconds. Signed: Alexi Castillo Verified Date/Time: 2017 13:42:50 Reading Location: [facility] Radiology Reading Room POCT- GLUCOSE [id number] 12:18:00 Test Item Value Reference Range Comments POC-GLUCOSE METER (JESSENIA) 154 mg/dL 70-110 TESTED AT [address] (test [id number]=[id number]) [facility] [id number]
[2018-12-26 19:17] LABS: Absolute Lymphocytes (CBC) 0.9 K/uL (0.7-4.9); Absolute Neutrophil 7.1 K/uL (1.8-8.0); Basophils % 0.3 % (0-1.3); Eosinophils % 1.3 % (0-4.4); Hematocrit 35.8 % (39.6-49.0); Lymphocytes % 9.7 % (15.3-44.8); MPV 9.8 fL (7.6-11.3); Monocytes % 10.7 % (3.3-12.3); RBC Red Blood Cell Count 3.65 M/uL (4.33-5.43)
--- NOTE | 2018-12-26 19:19 | ER ---
Nurse's Notes [facility] Name: Octavio Bueno Age: 73 yrs Sex: Male : 1945 Arrival Date: 12/26/2018 Time: 17:48 Bed 16 Private MD: Diagnosis: Hypoxemia;Pneumonia due to other specified bacteria-RIGHT UPPER LOBE;Transplanted organ and tissue status, unspecified-CARDIAC/2012;Type 1 diabetes mellitus;Influenza due to certain identified influenza viruses-Flu B;Urinary tract infection, site not specified;Unspecified kidney failure Presentation: 12/26 17:48 Transition of care: patient was not received from another setting of care. sv 17:48 Method Of Arrival: Wheelchair sv 17:53 Presenting complaint: Patient states: SOB, fever, cough since . Was seen by PCP sv and given Tamiflu but has gotten worse over the weekend. Onset of symptoms was December 22, 2018. Care prior to arrival: None. 17:53 Acuity: YAHIR 2 sv Historical: - Allergies: 17:49 NKA; sv - PMHx: 17:49 Diabetes - IDDM; Gout; Hyperlipidemia; Hypertension; Myocardial infarction; sv - PSHx: 17:49 Heart transplant 2006; Cholecystectomy; Hernia repair; Cataract surgery; sv - Family history:: not pertinent. Screenin:00 Abuse screen: Denies threats or abuse. Denies injuries from another. Nutritional bp screening: No deficits noted. Tuberculosis screening: No symptoms or risk factors identified. Fall Risk None identified. Assessment: 18:00 General: Appears in no apparent distress. comfortable, ill, Behavior is cooperative, bp appropriate for age, listless. Pain: Denies pain. Neuro: Level of Consciousness is awake, alert, obeys commands, Oriented to person, place, time, situation, Appropriate for age. Cardiovascular: Rhythm is sinus tachycardia. Respiratory: Reports cough that is Airway is patent Respiratory effort is even, unlabored. GI: No signs and/or symptoms were reported involving the gastrointestinal system. : No signs and/or symptoms were reported regarding the genitourinary system. EENT: No deficits noted. Derm: No deficits noted. Musculoskeletal: Circulation, motion, and sensation intact. Range of motion: intact in all extremities. 19:10 Reassessment: Patient appears in no apparent distress at this time. Patient and/or aa1 family updated on plan of care and expected duration. Pain level reassessed. Patient is alert, oriented x 3, equal unlabored respirations, skin warm/dry/pink. Awaiting lab \T\ x-ray results. 20:15 Reassessment: Patient appears in no apparent distress at this time. Patient and/or aa1 family updated on plan of care and expected duration. Pain level reassessed. Patient is alert, oriented x 3, equal unlabored respirations, skin warm/dry/pink. Pt to be admitted; awaiting bed assignment. 21:40 Reassessment: Patient appears in no apparent distress at this time. Patient and/or aa1 family updated on plan of care and expected duration. Pain level reassessed. Patient is alert, oriented x 3, equal unlabored respirations, skin warm/dry/pink. Attempted to call report to 4th floor but nurse did not answer; will call back. 21:54 Reassessment: Report given to Fransico on 4th floor. aa1 Vital Signs: 17:54 Pulse 107; Resp 24; Temp 102.2; Pulse Ox 91% on R/A; Weight 85.28 kg; Height 5 ft. 9 sv in. (175.26 cm); 20:10 BP 134 / 69; Pulse 101; Resp 22; Temp 100.8; Pulse Ox 97% on 2 lpm NC; aa1 21:44 BP 123 / 62; Pulse 81; Resp 18; Temp 98.6; Pulse Ox 98% on 2 lpm NC; Pain 2/10; aa1 22:11 BP 116 / 65; Pulse 82; Resp 20; Pulse Ox 98% on 2 lpm NC; Pain 2/10; aa1 17:54 Body Mass Index 27.76 (85.28 kg, 175.26 cm) sv 17:54 Placed on O 2\T\ 2L per NC. sv ED Course: 17:48 Patient arrived in ED. sv 17:49 Arm band placed on. sv 17:54 Triage completed. sv 18:00 Steven Esquivel MD is Attending Physician. rob 18:00 Patient has correct armband on for positive identification. Bed in low position. Call bp light in reach. Side rails up X2. Adult w/ patient. 18:06 Suman Coko, MELINDA is Primary Nurse. bp 18:56 Initial lab(s) drawn, by me, sent to lab. First set of blood cultures drawn by me. 3 Inserted saline lock: 20 gauge in left forearm, using aseptic technique. Blood collected. 18:56 Flu and/or RSV swab sent to lab. dh3 19:11 Second set of blood cultures drawn by nd. 3 19:15 Catracho Swann MD is Hospitalizing Provider. [facility] 19:16 XRAY Chest (1 view) In Process Unspecified. EDMS 19:16 X-ray completed. Portable x-ray completed in exam room. Patient tolerated procedure az well. 21:41 No provider procedures requiring assistance completed. Patient admitted, IV remains in aa1 place. Administered Medications: 19:10 Drug: NS 0.9% 1000 ml Route: IV; Rate: 125 ml/hr; Site: left forearm; aa1 21:42 Follow up: IV Status: Infusion continued upon admission aa1 19:10 Drug: Xopenex 2.5 mg Route: Inhalation; aa1 19:10 Drug: AtroVENT Aerosol 0.5 mg Route: Inhalation; aa1 19:10 Drug: Tylenol 650 mg Route: PO; aa1 20:10 Follow up: Response: Temperature is decreased aa1 19:11 Drug: NS 0.9% 500 ml Route: IV; Rate: bolus; Site: left forearm; aa1 20:00 Follow up: IV Status: Completed infusion; IV Intake: 500ml aa1 19:11 Drug: Rocephin 2 grams Route: IV; Rate: calculated rate; Site: left forearm; aa1 19:16 Follow up: IV Status: Completed infusion aa1 19:15 Drug: Zithromax 500 mg Route: IVPB; Infused Over: 1 hrs; Site: left forearm; aa1 20:15 Follow up: IV Status: Completed infusion aa1 19:55 CANCELLED (Duplicate Order): Rocephin - (cefTRIAXone) 1 grams IVPB once over 30 mins; aa1 (mix in 50 mL NS) 19:55 CANCELLED (Duplicate Order): Rocephin - (cefTRIAXone) 1 grams IVPB once over 30 mins; aa1 (mix in 50 mL NS) 20:22 Drug: Tamiflu 75 mg Route: PO; aa1 21:42 Follow up: Response: No adverse reaction aa1 Intake: 20:00 IV: 500ml; Total: 500ml. aa1 Outcome: 19:18 Decision to Hospitalize by Provider. rob 22:14 Admitted to Med/surg accompanied by tech, family with patient, via wheelchair, room aa1 408, with oxygen, with chart, Report called to MELINDA Bateman 22:14 Condition: stable 22:14 Discharge instructions given to patient, significant other, Instructed on the need for admit, Demonstrated understanding of instructions. 22:15 Patient left the ED. aa1 Signatures: Dispatcher [employer] EDRebecca Pacheco RN RN Kaylin Rodriguez RN RN aa1 Steven Esquivel MD MD cha Herrera, Deanna [facility] Suman Cook RN RN Beth Boswell
--- NOTE | 2018-12-26 19:19 | EDPHYS ---
Physician Documentation [facility] Name: Octavio Bueno Age: 73 yrs Sex: Male : 1945 Arrival Date: 12/26/2018 Time: 17:48 Bed 16 Private MD: ED Physician Steven Esquivel HPI: 12/26 18:24 This 73 yrs old Male presents to ER via Wheelchair with complaints of Fever, rob Cough, Low O2. 18:24 The patient reports fever, that was measured at 102 degrees Fahrenheit. Onset: The rob symptoms/episode began/occurred 5 day(s) ago. Modifying factors: there are no obvious modifying factors. Associated signs and symptoms: Pertinent positives: chills, decreased appetite, runny nose. Severity of symptoms: At their worst the symptoms were moderate. Historical: - Allergies: 17:49 NKA; sv - PMHx: 17:49 Diabetes - IDDM; Gout; Hyperlipidemia; Hypertension; Myocardial infarction; sv - PSHx: 17:49 Heart transplant 2006; Cholecystectomy; Hernia repair; Cataract surgery; sv - Family history:: not pertinent. ROS: 18:24 Eyes: Negative for injury, pain, redness, and discharge, ENT: Negative for injury, rob pain, and discharge, Neck: Negative for injury, pain, and swelling, Cardiovascular: Negative for chest pain, palpitations, and edema, Abdomen/GI: Negative for abdominal pain, nausea, vomiting, diarrhea, and constipation, Back: Negative for injury and pain, : Negative for injury, bleeding, discharge, and swelling, MS/Extremity: Negative for injury and deformity, Skin: Negative for injury, rash, and discoloration, Neuro: Negative for headache, weakness, numbness, tingling, and seizure, Psych: Negative for depression, anxiety, suicide ideation, homicidal ideation, and hallucinations, Allergy/Immunology: Negative for hives, rash, and allergies, Endocrine: Negative for neck swelling, polydipsia, polyuria, polyphagia, and marked weight changes, Hematologic/Lymphatic: Negative for swollen nodes, abnormal bleeding, and unusual bruising. 18:24 Respiratory: Positive for cough, shortness of breath, at rest. Exam: 18:24 Head/Face: Normocephalic, atraumatic. Eyes: Pupils equal round and reactive to light, rob extra-ocular motions intact. Lids and lashes normal. Conjunctiva and sclera are non-icteric and not injected. Cornea within normal limits. Periorbital areas with no swelling, redness, or edema. ENT: Nares patent. No nasal discharge, no septal abnormalities noted. Tympanic membranes are normal and external auditory canals are clear. Oropharynx with no redness, swelling, or masses, exudates, or evidence of obstruction, uvula midline. Mucous membranes moist. Neck: Trachea midline, no thyromegaly or masses palpated, and no cervical lymphadenopathy. Supple, full range of motion without nuchal rigidity, or vertebral point tenderness. No Meningismus. Chest/axilla: Normal chest wall appearance and motion. Nontender with no deformity. No lesions are appreciated. Cardiovascular: Regular rate and rhythm with a normal S1 and S2. No gallops, murmurs, or rubs. Normal PMI, no JVD. No pulse deficits. Abdomen/GI: Soft, non-tender, with normal bowel sounds. No distension or tympany. No guarding or rebound. No evidence of tenderness throughout. Back: No spinal tenderness. No costovertebral tenderness. Full range of motion. Male : Normal genitalia with no discharge or lesions. Skin: Warm, dry with normal turgor. Normal color with no rashes, no lesions, and no evidence of cellulitis. MS/ Extremity: Pulses equal, no cyanosis. Neurovascular intact. Full, normal range of motion. Neuro: Awake and alert, GCS 15, oriented to person, place, time, and situation. Cranial nerves II-XII grossly intact. Motor strength 5/5 in all extremities. Sensory grossly intact. Cerebellar exam normal. Normal gait. Psych: Awake, alert, with orientation to person, place and time. Behavior, mood, and affect are within normal limits. 18:24 Constitutional: The patient appears febrile. 18:24 Respiratory: the patient does not display signs of respiratory distress, Respirations: normal, Breath sounds: rhonchi, that are mild, are scattered. Vital Signs: 17:54 Pulse 107; Resp 24; Temp 102.2; Pulse Ox 91% on R/A; Weight 85.28 kg; Height 5 ft. 9 sv in. (175.26 cm); 20:10 BP 134 / 69; Pulse 101; Resp 22; Temp 100.8; Pulse Ox 97% on 2 lpm NC; aa1 21:44 BP 123 / 62; Pulse 81; Resp 18; Temp 98.6; Pulse Ox 98% on 2 lpm NC; Pain 2/10; aa1 22:11 BP 116 / 65; Pulse 82; Resp 20; Pulse Ox 98% on 2 lpm NC; Pain 2/10; aa1 17:54 Body Mass Index 27.76 (85.28 kg, 175.26 cm) sv 17:54 Placed on O 2\T\ 2L per NC. sv MDM: 18:00 Patient medically screened. rob 18:28 Data reviewed: vital signs, nurses notes, lab test result(s), EKG, radiologic studies, rob plain films. 12/26 18:22 Order name: Basic Metabolic Panel; Complete Time: 19:49 [facility] 12/26 18:22 Order name: CBC with Diff; Complete Time: 19:33 [facility] 12/26 18:22 Order name: LFT's; Complete Time: 19:49 [facility] 12/26 18:22 Order name: Magnesium; Complete Time: 19:49 [facility] 12/26 18:22 Order name: NT PRO-BNP; Complete Time: 19:49 [facility] 12/26 18:22 Order name: PT-INR; Complete Time: 19:33 [facility] 12/26 18:22 Order name: Troponin (emerg Dept Use Only); Complete Time: 19:49 [facility] 12/26 18:22 Order name: XRAY Chest (1 view); Complete Time: 19:33 [facility] 12/26 18:22 Order name: Influenza Screen (a \T\ B); Complete Time: 19:33 [facility] 12/26 18:22 Order name: Blood Culture Adult (2) [facility] 12/26 18:22 Order name: Procalcitonin [facility] 12/26 18:22 Order name: Lactate; Complete Time: 19:33 [facility] 12/26 18:22 Order name: Urine Culture [facility] 12/26 19:38 Order name: Urine Dipstick--Ancillary (enter results) [facility] 12/26 18:22 Order name: EKG; Complete Time: 18:24 [facility] 12/26 18:22 Order name: Cardiac monitoring; Complete Time: 19:06 [facility] 12/26 18:22 Order name: EKG - Nurse/Tech; Complete Time: 19:05 [facility] 12/26 18:22 Order name: IV Saline Lock; Complete Time: 19:05 [facility] 12/26 18:22 Order name: Labs collected and sent; Complete Time: 19:05 [facility] 12/26 19:50 Order name: INCENTIVE SPIROMETRY [facility] 12/26 18:22 Order name: O2 Per Protocol; Complete Time: 19:05 [facility] 12/26 18:22 Order name: O2 Sat Monitoring; Complete Time: 19:05 [facility] 12/26 18:22 Order name: Urine Dipstick-Ancillary (obtain specimen); Complete Time: 19:51 [facility] Administered Medications: 19:10 Drug: NS 0.9% 1000 ml Route: IV; Rate: 125 ml/hr; Site: left forearm; aa1 21:42 Follow up: IV Status: Infusion continued upon admission aa1 19:10 Drug: Xopenex 2.5 mg Route: Inhalation; aa1 19:10 Drug: AtroVENT Aerosol 0.5 mg Route: Inhalation; aa1 19:10 Drug: Tylenol 650 mg Route: PO; aa1 20:10 Follow up: Response: Temperature is decreased aa1 19:11 Drug: NS 0.9% 500 ml Route: IV; Rate: bolus; Site: left forearm; aa1 20:00 Follow up: IV Status: Completed infusion; IV Intake: 500ml aa1 19:11 Drug: Rocephin 2 grams Route: IV; Rate: calculated rate; Site: left forearm; aa1 19:16 Follow up: IV Status: Completed infusion aa1 19:15 Drug: Zithromax 500 mg Route: IVPB; Infused Over: 1 hrs; Site: left forearm; aa1 20:15 Follow up: IV Status: Completed infusion aa1 19:55 CANCELLED (Duplicate Order): Rocephin - (cefTRIAXone) 1 grams IVPB once over 30 mins; aa1 (mix in 50 mL NS) 19:55 CANCELLED (Duplicate Order): Rocephin - (cefTRIAXone) 1 grams IVPB once over 30 mins; aa1 (mix in 50 mL NS) 20:22 Drug: Tamiflu 75 mg Route: PO; aa1 21:42 Follow up: Response: No adverse reaction aa1 Disposition: 12/26/18 19:18 Hospitalization ordered by Catracho Swann for Inpatient Admission. Preliminary diagnosis are Hypoxemia, Pneumonia due to other specified bacteria - RIGHT UPPER LOBE, Transplanted organ and tissue status, unspecified - CARDIAC/2012, Type 1 diabetes mellitus, Influenza due to certain identified influenza viruses - Flu B, Urinary tract infection, site not specified, Unspecified kidney failure. - Bed requested for Telemetry/MedSurg (Inpatient). - Status is Inpatient Admission. aa1 - Condition is Fair. - Problem is new. - Symptoms have improved. UTI on Admission? Yes Signatures: Dispatcher [employer] Rebecca Tay RN RN Delilah Hines RN RN Kaylin Rodriguez RN RN aa1 Steven Esquivel MD MD [facility] Corrections: (The following items were deleted from the chart) 19:35 19:18 Hospitalization Ordered by Catracho Swann MD for Inpatient Admission. Preliminary [facility] diagnosis is Hypoxemia; Pneumonia due to other specified bacteria - RIGHT UPPER LOBE; Transplanted organ and tissue status, unspecified - CARDIAC/2011; Type 1 diabetes mellitus. Bed requested for Telemetry/MedSurg (Inpatient). Status is Inpatient Admission. Condition is Fair. Problem is new. Symptoms have improved. UTI on Admission? No. [facility] 19:36 19:35 12/26/2018 19:18 Hospitalization Ordered by Catracho Swann MD for Inpatient rob Admission. Preliminary diagnosis is Hypoxemia; Pneumonia due to other specified bacteria - RIGHT UPPER LOBE; Transplanted organ and tissue status, unspecified - CARDIAC/2011; Type 1 diabetes mellitus; Influenza due to certain identified influenza viruses - Flu B. Bed requested for Telemetry/MedSurg (Inpatient). Status is Inpatient Admission. Condition is Fair. Problem is new. Symptoms have improved. UTI on Admission? No. [facility] 19:50 19:36 12/26/2018 19:18 Hospitalization Ordered by Catracho Swann MD for Inpatient rob Admission. Preliminary diagnosis is Hypoxemia; Pneumonia due to other specified bacteria - RIGHT UPPER LOBE; Transplanted organ and tissue status, unspecified - CARDIAC/2011; Type 1 diabetes mellitus; Influenza due to certain identified influenza viruses - Flu B; Urinary tract infection, site not specified. Bed requested for Telemetry/MedSurg (Inpatient). Status is Inpatient Admission. Condition is Fair. Problem is new. Symptoms have improved. UTI on Admission? Yes. [facility] 19:55 18:22 Rocephin - (cefTRIAXone) 1 grams IVPB once over 30 mins; (mix in 50 mL NS) aa1 ordered. [facility] 19:55 19:01 Rocephin - (cefTRIAXone) 1 grams IVPB once over 30 mins; (mix in 50 mL NS) aa1 ordered. [facility] 21:19 19:50 12/26/2018 19:18 Hospitalization Ordered by Catracho Swann MD for Inpatient Admission. Preliminary diagnosis is Hypoxemia; Pneumonia due to other specified bacteria - RIGHT UPPER LOBE; Transplanted organ and tissue status, unspecified - CARDIAC/2011; Type 1 diabetes mellitus; Influenza due to certain identified influenza viruses - Flu B; Urinary tract infection, site not specified; Unspecified kidney failure. Bed requested for Telemetry/MedSurg (Inpatient). Status is Inpatient Admission. Condition is Fair. Problem is new. Symptoms have improved. UTI on Admission? Yes. [facility] 22:15 21:19 12/26/2018 19:18 Hospitalization Ordered by Catracho Swann MD for Inpatient aa1 Admission. Preliminary diagnosis is Hypoxemia; Pneumonia due to other specified bacteria - RIGHT UPPER LOBE; Transplanted organ and tissue status, unspecified - CARDIAC/2011; Type 1 diabetes mellitus; Influenza due to certain identified influenza viruses - Flu B; Urinary tract infection, site not specified; Unspecified kidney failure. Bed requested for Telemetry/MedSurg (Inpatient). Status is Inpatient Admission. Condition is Fair. Problem is new. Symptoms have improved. UTI on Admission? Yes.
--- NOTE | 2018-12-26 19:20 | RAD REPORT ---
EXAM DESCRIPTION: RAD - Chest Single View - 12/26/2018 7:16 pm CLINICAL HISTORY: Cough;Congestion Chest pain. COMPARISON: Chest Single View dated 04/07/2018; Chest Single View dated 02/24/2018; Chest Single View dated 01/17/2018; Chest Single View dated 08/01/2017 FINDINGS: Portable technique limits examination quality. Moderate airspace consolidation is present in the right mid lung compatible with pneumonia. The heart is mildly enlarged in size with sternotomy wires present. No displaced fractures. IMPRESSION: Right mid lung pneumonia.
[2018-12-26] MEDS ORDERED: NA CHLORIDE 0.9% 1,000 ML ONE (19:22)
[2018-12-26] MEDS ORDERED: IPRATROPIUM BROM 0.5MG/2.5ML ONE (19:22)
[2018-12-26] MEDS ORDERED: NA CHLORIDE 0.9% 250 ML ONE (19:22)
[2018-12-26] MEDS ORDERED: LEVALBUTEROL 1.25 MG/3 ML NEB ONE (19:22)
[2018-12-26] MEDS ORDERED: NA CHLORIDE 0.9% 500 ML ONE (19:22)
[2018-12-26] MEDS ORDERED: ACETAMINOPHEN 325 MG TABLET ONE (19:22)
[2018-12-26] MEDS ORDERED: AZITHROMYCIN 500 MG INJ IVPB ONE (19:22)
[2018-12-26 19:23] LABS: Protime INR 1.26
[2018-12-26] MEDS ORDERED: CEFTRIAXONE/SWI 1gm 2 GM/20 ML SYR ONE (19:23)
[2018-12-26 19:42] LABS: ALT/SGPT 19 U/L (12-78); AST/SGOT 23 U/L (15-37); Albumin 2.9 g/dL (3.4-5.0); Alkaline Phosphatase 83 U/L (45-117); BUN Blood Urea Nitrogen 43 mg/dL (7-18); Bicarbonate 32 mmol/L (21-32); Bilirubin Direct 0.3 mg/dL (0-0.2); Bilirubin Total 0.7 mg/dL (0.2-1.0); Glucose Level 222 mg/dL (74-106); Magnesium 2.3 mg/dL (1.8-2.4); NT PRO-BNP 1347 pg/mL (<450); Potassium 4.3 mmol/L (3.5-5.1); Protein, Total 7.1 g/dL (6.4-8.2); Sodium Level 137 mmol/L (136-145); Troponin (Emerg Dept Use Only) < 0.02 ng/mL (0.0-0.045)
[2018-12-26] MEDS ORDERED: OSELTAMIVIR 75 MG CAP PO ONE (19:55)
[2018-12-26 20:17] LABS: Urine Blood 1+ (NEG); Urine Glucose NEGATIVE (NEG); Urine Protein 2+ (NEG)
[2018-12-26] MEDS ORDERED: OSELTAMIVIR 75 MG CAP ONE (20:26)
--- NOTE | 2018-12-26 21:36 | P.HP ---
Certification for Inpatient Patient admitted to: Inpatient With expected LOS: >2 Midnights Practitioner: I am a practitioner with admitting privileges, knowledge of patient current condition, hospital course, and medical plan of care. Services: Services provided to patient in accordance with Admission requirements found in Title 42 Section 412.3 of the Code of Federal Regulations Patient History Date of Service: 12/26/18 Reason for admission: influenza pneumonia History of Present Illness: Mr Bueno is a 73 years old male with history of IDDM, HTN, dyslipidemia, heart transplant in 2006 followed up at [facility] in [place], who start about 5 days ago with progressive SOB and dry cough. He then developed fever and went to see his PCP. He was prescribed Tamiflu due to Flu like symptom , however, his symptoms got worse and was still spiking fever, for that reason he came to ED for further evaluation. At arrival he was febrile, 102.2 F, O2 sat 91% on RA, tachycardic, BP 116/80. WBC 9.1K, Lactate and procalcitonin within normal limits. CXR remarkable for a consolidation at mid right lung. Influenza screening positive. Allergies No Known Drug Allergies Allergy (Verified 05/01/15 22:32) Unknown NKA Allergy (Uncoded 02/24/18 15:18) Unknown No Known Allergies Allergy (Uncoded 08/01/17 14:49) Unknown Home medications list reviewed: Yes Home Medications: ALPRAZolam [Xanax*] 0.25 mg PO BEDTIME 05/01/15 Allopurinol 100 mg PO DAILY 05/01/15 Aspirin [Aspirin EC 81 MG] 81 mg PO 30 MIN BEFORE HS 05/01/15 Calcium Carb/Vitamin D3/Vit K1 [Calcium + D Soft Chewable Tab] 1 each PO BID 02/08 Docosahexanoic AC/Epa [Fish Oil 1,000 MG*] 1,000 mg PO BID 05/01/15 Esomeprazole Mag Trihydrate [Nexium] 20 mg PO DAILY 05/01/15 Esomeprazole Mag Trihydrate [Nexium] 40 mg PO 30 MIN BEFORE HS 05/01/15 Folic Acid 1 mg PO DAILY 05/01/15 Gabapentin Enacarbil [Horizant] 300 mg PO BID 05/01/15 Insulin 70/30 NPH/Reg Human [Novolin 70/30*] 32 unit SQ BID 05/01/15 Isosorbide Dinitrate 30 mg PO DAILY 05/01/15 Labetalol HCl [Trandate] 300 mg PO BID 05/01/15 Magnesium Oxide [Mag 0X*] 400 mg PO DAILY 05/01/15 Multivitamin [Multivitamins] 1 each PO DAILY 05/01/15 Mycophenolate Mofetil [Cellcept] 500 mg PO BID 05/01/15 Potassium Chloride [Micro-K] 10 meq PO DAILY 05/01/15 Pravastatin [Pravachol*] 80 mg PO 30 MIN BEFORE HS 05/01/15 Prednisolone [Millipred] 5 mg PO DAILY 05/01/15 Tacrolimus [Prograf] 0.5 mg PO BID 05/01/15 Tamsulosin [Flomax*] 0.4 mg PO 30 MIN BEFORE HS 05/01/15 Thiamine HCl 100 mg PO DAILY 05/01/15 Torsemide [Demadex*] 20 mg PO DAILY 05/01/15 - Past Medical/Surgical History Diabetic: Yes -: Urinary retention -: High cholesteral -: IDDM -: Gout -: GERD -: Neuropathy -: HTN -: Seasonal Allergies -: Heart transplant -: Sqamous carcinoma removal -: Angelika -: Cataracts -: Hernia repair - Family History Family History: Reviewed- Non-Contributory - Social History Alcohol use: Yes CD- Drugs: No Caffeine use: Yes Place of Residence: Home Review of Systems 10-point ROS is otherwise unremarkable Physical Examination - Physical Exam General: Alert, Mild distress (due to fever.) HEENT: Atraumatic, PERRLA, Mucous membr. moist/pink, EOMI, Sclerae nonicteric Neck: Supple, 2+ carotid pulse no bruit, No LAD, Without JVD or thyroid abnormality Respiratory: Normal air movement, Crackles/rales (right base crackles) Cardiovascular: Regular rate/rhythm, Normal S1 S2 Gastrointestinal: Normal bowel sounds, No tenderness Musculoskeletal: No tenderness Integumentary: No rashes Neurological: Normal speech, Normal strength at 5/5 x4 extr, Normal tone, Normal affect Lymphatics: No axilla or inguinal lymphadenopathy - Studies Laboratory Data (last 24 hrs) 12/26/18 18:56: PT 14.7 H, INR 1.26 12/26/18 18:56: WBC 9.1, Hgb 11.9 L, Hct 35.8 L, Plt Count 164 12/26/18 18:56: Sodium 137, Potassium 4.3, BUN 43 H, Creatinine 2.21 H, Glucose 222 H, Magnesium 2.3, Total Bilirubin 0.7, AST 23, ALT 19, Alkaline Phosphatase 83 Microbiology Data (last 24 hrs): 12/26/18 18:56 Nasopharnyx Influenza Type A Antigen Screen - Final 12/26/18 18:56 Nasopharnyx Influenza Type B Antigen Screen - Final Assessment and Plan - Problems (Diagnosis) (1) Influenza, pneumonia Current Visit: Yes Status: Acute (2) Hx of heart transplant Current Visit: Yes Status: Acute (3) Diabetes mellitus Current Visit: Yes Status: Acute Qualifiers: Diabetes mellitus type: type 2 Diabetes mellitus shelter insulin use: with humanities instructor use Diabetes mellitus complication status: with unspecified complications Qualified Code(s): E11.8 - Type 2 diabetes mellitus with unspecified complications; Z79.4 - [facility] (current) use of insulin (4) HTN (hypertension) Current Visit: Yes Status: Acute Qualifiers: Hypertension type: essential hypertension Qualified Code(s): I10 - Essential (primary) hypertension (5) CKD (chronic kidney disease), stage III Onset Date: 05/02/15 Current Visit: No Status: Acute - Plan The patient will be admitted to the hospital due to Influenza pneumonia. Will order Tamiflu, empiric antibiotic treatmet, IV fluids, DVT prophylaxis SQ heparin. Attempt to transfer the patient to [facility] was made from ER , however, due to unavailability of bed, the transfer is on hold. The transplant team is aware that the patient is here, and they will check in AM the status of the patient in order to expedite his transfer. - Advance Directives Does patient have a Living Will: No Does patient have a Durable POA for Healthcare: No - Code Status/Comfort Care Code Status Assessed: Yes Code Status: Full Code
[2018-12-26] MEDS ORDERED: ONDANSETRON 4 MG/2 ML VIAL IV PRN (23:16)
[2018-12-26] MEDS ORDERED: IPRATROPIUM BROM 0.5MG/2.5ML NEB PRN (23:16)
[2018-12-26] MEDS ORDERED: ALBUTEROL 2.5 MG/3 ML NEB SOL NEB PRN (23:16)
[2018-12-26] MEDS ORDERED: NA CHLORIDE 0.9% 1,000 ML IV SCH (23:16)
[2018-12-27 00:39] VITALS: BMI 28.1
[2018-12-27] MEDS: ACETAMINOPHEN 500 MG TAB PO PRN ×2 (02:20→10:03)
[2018-12-27 06:11] LABS: Potassium 3.8 mmol/L (3.5-5.1)
[2018-12-27 06:16] LABS: Absolute Lymphocytes (CBC) 0.8 K/uL (0.7-4.9); Absolute Neutrophil 6.1 K/uL (1.8-8.0); Basophils % 0.2 % (0-1.3); Eosinophils % 1.4 % (0-4.4); Hematocrit 35.6 % (39.6-49.0); Lymphocytes % 10.2 % (15.3-44.8); MPV 9.8 fL (7.6-11.3); Monocytes % 12.2 % (3.3-12.3); RBC Red Blood Cell Count 3.55 M/uL (4.33-5.43)
[2018-12-27] MEDS ORDERED: POTASSIUM CL SA 10 MEQ TAB PO ONE (07:26)
[2018-12-27] MEDS: INSULIN -REGULAR HUMAN 50 UNIT/0.5 ML ML SQ SCH ×4 (07:30→21:00)
--- NOTE | 2018-12-27 08:23 | P.CNS ---
Date of Consult: 12/27/18 Chief Complaint: influenza pneumonia History of Present Illness: Patient is 73 years of age admitted with a 5 day history of progressive short developed some was prescribed Tamiflu became worse and appeared in the emergency room patient was febrile and was found to have a right lung pneumonia Very poor historian is slightly confused Is a heart transplant Allergies No Known Drug Allergies Allergy (Verified 05/01/15 22:32) Unknown NKA Allergy (Uncoded 02/24/18 15:18) Unknown No Known Allergies Allergy (Uncoded 08/01/17 14:49) Unknown Home Medications: ALPRAZolam [Xanax*] 0.25 mg PO BEDTIME 05/01/15 Allopurinol 100 mg PO DAILY 05/01/15 Aspirin [Aspirin EC 81 MG] 81 mg PO 30 MIN BEFORE HS 05/01/15 Calcium Carb/Vitamin D3/Vit K1 [Calcium + D Soft Chewable Tab] 1 each PO BID 02/08 Docosahexanoic AC/Epa [Fish Oil 1,000 MG*] 1,000 mg PO BID 05/01/15 Esomeprazole Mag Trihydrate [Nexium] 20 mg PO DAILY 05/01/15 Esomeprazole Mag Trihydrate [Nexium] 40 mg PO 30 MIN BEFORE HS 05/01/15 Folic Acid 1 mg PO DAILY 05/01/15 Gabapentin Enacarbil [Horizant] 300 mg PO BID 05/01/15 Insulin 70/30 NPH/Reg Human [Novolin 70/30*] 32 unit SQ BID 05/01/15 Isosorbide Dinitrate 30 mg PO DAILY 05/01/15 Labetalol HCl [Trandate] 300 mg PO BID 05/01/15 Magnesium Oxide [Mag 0X*] 400 mg PO DAILY 05/01/15 Multivitamin [Multivitamins] 1 each PO DAILY 05/01/15 Mycophenolate Mofetil [Cellcept] 500 mg PO BID 05/01/15 Potassium Chloride [Micro-K] 10 meq PO DAILY 05/01/15 Pravastatin [Pravachol*] 80 mg PO 30 MIN BEFORE HS 05/01/15 Prednisolone [Millipred] 5 mg PO DAILY 05/01/15 Tacrolimus [Prograf] 0.5 mg PO BID 05/01/15 Tamsulosin [Flomax*] 0.4 mg PO 30 MIN BEFORE HS 05/01/15 Thiamine HCl 100 mg PO DAILY 05/01/15 Torsemide [Demadex*] 20 mg PO DAILY 05/01/15 - Past Medical/Surgical History Diabetic: Yes -: Urinary retention -: High cholesteral -: IDDM -: Gout -: GERD -: Neuropathy -: HTN -: Seasonal Allergies -: Heart transplant -: Sqamous carcinoma removal -: Angelika -: Cataracts -: Hernia repair - Social History Smoking Status: Former smoker Alcohol use: Yes CD- Drugs: No Caffeine use: Yes Place of Residence: Home Review of Systems General: Weakness Respiratory: Cough, Shortness of Breath Physical Examination Temp Pulse Resp BP Pulse Ox 99.7 F 64 20 129/64 92 12/27/18 04:00 12/27/18 04:00 12/27/18 04:00 12/27/18 04:00 12/27/18 04:00 General: Alert, Oriented x3 HEENT: Atraumatic Neck: Supple Respiratory: Clear to auscultation bilaterally Cardiovascular: No edema, Regular rate/rhythm Gastrointestinal: Normal bowel sounds, Soft and benign Musculoskeletal: No clubbing, No swelling Integumentary: No rashes, No breakdown Laboratory Data (last 24 hrs) 12/26/18 18:56: PT 14.7 H, INR 1.26 12/26/18 18:56: WBC 9.1, Hgb 11.9 L, Hct 35.8 L, Plt Count 164 12/26/18 18:56: Sodium 137, Potassium 4.3, BUN 43 H, Creatinine 2.21 H, Glucose 222 H, Magnesium 2.3, Total Bilirubin 0.7, AST 23, ALT 19, Alkaline Phosphatase 83 - Problems (1) Pneumonia Current Visit: Yes Status: Acute Plan: Patient is 73 years of age admitted with right lung pneumonia normal white count chronic renal failure patient had fever on admission vital signs stable monitor pulse ox possible discharge tomorrow on a p.o. antibiotics Dc IV fluids Qualifiers: Pneumonia type: due to unspecified organism
[2018-12-27] MEDS: HEPARIN 5000 UNIT/ML 1 ML VIAL SQ SCH ×2 (08:54→22:16)
[2018-12-27] MEDS ORDERED: CEFTRIAXONE 1 GM/NS 50 ML 1 GM/50 ML BAG IV SCH (09:00)
[2018-12-27] MEDS ORDERED: OSELTAMIVIR 75 MG CAP PO SCH (09:00)
[2018-12-27] MEDS ORDERED: AZITHROMYCIN IV 500 MG in NA CHLORIDE 0.9% 250 ML IVPB SCH ×2 (09:00→17:00)
[2018-12-27] MEDS: DOXYCYCLINE 100 MG CAP PO SCH ×2 (09:06→22:16)
[2018-12-27] MEDS: CEFUROXIME 250 MG TAB PO SCH ×2 (10:03→22:16)
[2018-12-27 11:19] LABS: Potassium 4.4 mmol/L (3.5-5.1)
[2018-12-27] MEDS: CODEINE 30MG/APAP 300MG TAB PO PRN ×2 (12:50→19:41)
[2018-12-27] MEDS ORDERED: GLUCAGON 1 MG/VIAL IM PRN (14:48)
[2018-12-27] MEDS ORDERED: D50W 25 GM/50 ML SYRINGE IV PRN (14:48)
[2018-12-27] MEDS ORDERED: TRAMADOL 37.5mg/APAP 325mg PER TAB PO PRN (16:39)
--- NOTE | 2018-12-27 16:46 | P.PN ---
Subjective Date of Service: 12/27/18 Chief Complaint: influenza pneumonia pt seen and examined pt denied cough or sob ,was complaining of neck pain labs reviewed Review of Systems 10-point ROS is otherwise unremarkable Physical Examination - Vital Signs Temperature: 98.5 F Blood Pressure: 131/65 Pulse: 95 Respirations: 16 Pulse Ox (%): 88 - Physical Exam General: Alert, Oriented x3 HEENT: Atraumatic, Normocephalic, PERRLA Neck: JVD not distended Respiratory: Clear to auscultation bilaterally, Normal air movement Cardiovascular: Regular rate/rhythm, Normal S1 S2 Gastrointestinal: Normal bowel sounds, Soft and benign, Non-distended Musculoskeletal: No clubbing, No swelling, No erythema Integumentary: No rashes Neurological: Normal speech - Studies Laboratory Data (last 24 hrs) 12/26/18 18:56: PT 14.7 H, INR 1.26 12/26/18 18:56: WBC 9.1, Hgb 11.9 L, Hct 35.8 L, Plt Count 164 12/26/18 18:56: Sodium 137, Potassium 4.3, BUN 43 H, Creatinine 2.21 H, Glucose 222 H, Magnesium 2.3, Total Bilirubin 0.7, AST 23, ALT 19, Alkaline Phosphatase 83 Microbiology Data (last 24 hrs): 12/26/18 18:56 Nasopharnyx Influenza Type A Antigen Screen - Final 12/26/18 18:56 Nasopharnyx Influenza Type B Antigen Screen - Final Assessment And Plan - Current Problems (Diagnosis) (1) Diabetes mellitus Current Visit: Yes Status: Acute Qualifiers: Diabetes mellitus type: type 2 Diabetes mellitus 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 insulin use: with usp use Diabetes mellitus complication status: with unspecified complications Qualified Code(s): E11.8 - Type 2 diabetes mellitus with unspecified complications; Z79.4 - moth exterminator (current) use of insulin (2) HTN (hypertension) Current Visit: No Status: Chronic Qualifiers: Hypertension type: essential hypertension Qualified Code(s): I10 - Essential (primary) hypertension (3) Hx of heart transplant Current Visit: No Status: Chronic (4) Influenza, pneumonia Current Visit: Yes Status: Acute (5) Pneumonia Current Visit: Yes Status: Acute Qualifiers: Pneumonia type: due to unspecified organism (6) CKD (chronic kidney disease), stage III Onset Date: 05/02/15 Current Visit: No Status: Chronic - Plan influenzaa PNA (CXR showed right mid lung consolidation) continue tamiflu continue IV abx nebulizers tylenol for fevers pulmonary consulted continue other home meds for other medical problems dvt ppx Discharge Plan: Home Plan to discharge in: 24 Hours
[2018-12-27] MEDS ORDERED: CEFTRIAXONE/SWI 1gm 1 GM/10 ML SYR IV SCH (18:00)
[2018-12-27] MEDS: OSELTAMIVIR PHOSPHATE 30 MG/5 ML SUSPENSION UD PO SCH (22:16)
[2018-12-28] MEDS: ACETAMINOPHEN 500 MG TAB PO PRN (02:32)
[2018-12-28] MEDS: GABAPENTIN 300 MG CAP PO SCH ×4 (02:32→22:15)
[2018-12-28] MEDS: INSULIN -REGULAR HUMAN 50 UNIT/0.5 ML ML SQ SCH ×4 (07:30→21:00)
[2018-12-28] MEDS ORDERED: BENZONATATE 100 MG CAP PO PRN (08:55)
[2018-12-28] MEDS: TACROLIMUS 0.5 MG PO SCH ×2 (09:00→21:00)
[2018-12-28] MEDS: PREDNISOLONE 5 MG PO SCH (09:00)
[2018-12-28] MEDS ORDERED: Meropenem 500 MG VIAL IV SCH (09:00)
[2018-12-28] MEDS: TROSPIUM CHLORIDE PO SCH (09:00)
[2018-12-28] MEDS: FERROUS SULFATE 325 MG TAB PO SCH (09:48)
[2018-12-28] MEDS: DOXYCYCLINE 100 MG CAP PO SCH ×2 (09:48→22:14)
[2018-12-28] MEDS: AMLODIPINE 5 MG TAB PO SCH (09:48)
[2018-12-28] MEDS: LABETALOL HCL 100 MG TAB PO SCH ×2 (09:48→22:14)
[2018-12-28] MEDS: DOCOSAHEXANOIC AC/EPA 1000 MG PO SCH ×2 (09:48→22:15)
[2018-12-28] MEDS: THIAMINE HCL 100 MG TABLET PO SCH (09:48)
[2018-12-28] MEDS: FINASTERIDE 5 MG TAB PO SCH (09:49)
[2018-12-28] MEDS: FOLIC ACID 1 MG TABLET PO SCH (09:49)
[2018-12-28] MEDS: ALLOPURINOL 100 MG TAB PO SCH ×2 (09:49→22:14)
[2018-12-28] MEDS: OSELTAMIVIR PHOSPHATE 30 MG/5 ML SUSPENSION UD PO SCH ×2 (09:49→22:13)
[2018-12-28] MEDS: Meropenem 500 MG in NA CHLORIDE 0.9% 100 ML IV SCH ×2 (09:50→16:30)
[2018-12-28] MEDS: GUAIFENESIN 600 MG SA TAB PO SCH ×2 (09:50→22:14)
[2018-12-28] MEDS: DOCUSATE NA 100 MG CAP PO SCH ×2 (09:50→22:15)
[2018-12-28 09:56] LABS: Absolute Lymphocytes (CBC) 0.9 K/uL (0.7-4.9); Absolute Neutrophil 5.9 K/uL (1.8-8.0); Basophils % 0.2 % (0-1.3); Eosinophils % 1.3 % (0-4.4); Hematocrit 35.7 % (39.6-49.0); Lymphocytes % 11.2 % (15.3-44.8); MPV 9.2 fL (7.6-11.3); Monocytes % 12.8 % (3.3-12.3); RBC Red Blood Cell Count 3.65 M/uL (4.33-5.43)
[2018-12-28] MEDS: HEPARIN 5000 UNIT/ML 1 ML VIAL SQ SCH ×2 (09:57→22:15)
[2018-12-28] MEDS: CALCIUM CARB 500MG/VIT D 200 IU TAB PO SCH ×2 (10:04→22:15)
[2018-12-28] MEDS: ISOSORBIDE MONO SR 30 MG TAB PO SCH (10:04)
[2018-12-28 10:14] LABS: Magnesium 2.4 mg/dL (1.8-2.4); Potassium 4.3 mmol/L (3.5-5.1)
--- NOTE | 2018-12-28 10:15 | RAD REPORT ---
EXAM DESCRIPTION: RAD - Chest Pa And Lat (2 Views) - 12/28/2018 9:30 am CLINICAL HISTORY: follow up pneumonia Chest pain. COMPARISON: Chest Single View dated 12/26/2018; Chest Single View dated 04/07/2018; Chest Single View d ated 02/24/2018; Chest Single View dated 01/17/2018 FINDINGS: Right mid lung airspace opacity is again noted appearing mildly improved since the compara tive study. Small opacity is present in the left lung base laterally, probably an area of atelectasis . The heart is normal in size. Sternotomy wires present. IMPRESSION: Mild improvement in right mid lung pneumonia since comparative study.
[2018-12-28] MEDS: CODEINE 30MG/APAP 300MG TAB PO PRN (10:26)
--- NOTE | 2018-12-28 11:13 | RAD REPORT ---
EXAM DESCRIPTION: CT - Thorax Wo Con CLINICAL HISTORY: Chest pain Possible right middle lobe pneumonia COMPARISON: No comparisons FINDINGS: Moderate airspace opacification is seen in the posterior right upper lobe the extending to involve the anterior aspect of the right upper lobe compatible with pneumonia. A small right pleural effusion is seen. Minimal linear atelectasis suspected the left lung base. Motion degradation is pre sent however no hilar obstructing lesion is seen. No pericardial fluid or left pleural effusion. No p neumothorax. No axillary, mediastinal or hilar adenopathy. No acute fracture seen. Sternotomy wires are present. Cyst is present in the liver. All CT scans are performed using dose optimization technique as appropriate and may include automated exposure control or mA/KV adjustment according to patient size. IMPRESSION: Moderate right upper lobe pneumonia is seen with a small right pleural effusion.
--- NOTE | 2018-12-28 12:33 | P.PN ---
Subjective Date of Service: 12/28/18 Chief Complaint: influenza pneumonia Patient's condition is stable as per was sleeping this morning little disoriented Review of Systems is unable to be obtained Physical Examination - Vital Signs Temperature: 98.4 F Blood Pressure: 132/63 Pulse: 81 Respirations: 18 Pulse Ox (%): 93 - Physical Exam General: Confused Neck: Supple Respiratory: Clear to auscultation bilaterally Cardiovascular: No edema, Normal pulses - Studies Microbiology Data (last 24 hrs): 12/26/18 19:25 Clean Catch Urine [place] Count - Final >100,000 CFU/ML. 12/26/18 19:25 Clean Catch Urine - Final Escherichia Coli Assessment & Plan - Problems (Diagnosis) (1) Pneumonia Current Visit: Yes Status: Acute Plan: Patient appears to have a right mid-zone pneumonia I have ordered a CT scan of the chest which shows a right mid lobe pneumonia small pleural effusion patient Qualifiers: Pneumonia type: due to unspecified organism (2) Cystitis Current Visit: Yes Status: Acute Plan: Patient has ESBL in the urine I have started him on meropenem poly need PIC line. Sputum cultures pending labs reviewed his chronic renal insufficiency
--- NOTE | 2018-12-28 17:41 | P.PN ---
Subjective Date of Service: 12/28/18 Chief Complaint: influenza pneumonia Subjective: Other (Still with cough and congestion) Physical Examination - Vital Signs Temperature: 98.4 F Blood Pressure: 132/63 Pulse: 81 Respirations: 18 Pulse Ox (%): 93 - Physical Exam General: Alert, In no apparent distress, Oriented x3, Cooperative HEENT: Atraumatic Neck: Supple Respiratory: Crackles/rales, Expiratory wheezes, Inspiratory wheezes Cardiovascular: Normal pulses, Regular rate/rhythm Gastrointestinal: Normal bowel sounds, Soft and benign, Non-distended Neurological: Normal speech, Normal strength at 5/5 x4 extr, Normal tone, Normal affect - Studies Microbiology Data (last 24 hrs): 12/26/18 19:25 Clean Catch Urine [place] Count - Final >100,000 CFU/ML. 12/26/18 19:25 Clean Catch Urine - Final Escherichia Coli Medications List Reviewed: Yes Assessment & Plan Discharge Plan: Other (Skilled placement) Plan to discharge in: Greater than 2 days Physician Review Additional Text: Impression: Right upper lobe pneumonia with small pleural effusion complicated with influenza B UTI, urine culture positive for E coli Hypertension CAD BPH Acute on chronic renal disease, stage III Plan: Continue antibiotic therapy and treatment for influenza B. Case discussed with pulmonology. Will consult infectious disease for further recommendation. So far were urine culture positive for E coli. We need to verify if this is ESBL. If so patient oral likely require IV antibiotic therapy-meropenem for 7 days. Continue with blood pressure medication. Restart home medication for CAD and BPH. Renal function stable. Continue monitor closely. Case discussed at length with patient and . If the patient requires IV antibiotic therapy- meropenem then the patient will require a PICC line. Await results to finalized tomorrow. If negative for ESBL medication can be likely switched over to oral medication. Medications reviewed and restarted. Will monitor lab closely. Will maintain sats above 90%. Will have physical therapy and occupational therapy assess as the patient will likely require skilled placement. Will reassess tomorrow. Time Spent Managing Pts Care (In Minutes): 55
--- NOTE | 2018-12-28 17:58 | CON ---
History Of Present Illness: This is a 73-year-old male. I was consulted for multiple infections. T he patient has a past history of insulin-dependent diabetes mellitus, hypertension, dyslipidemia, hea rt transplant about 12 years ago at [facility]. The patient is coming in with 5 days of worsening shortness of breath and dry cough, also had fevers. He was seen by primary care doctor and was given Tamiflu for flu-like symptoms. The patient came to the emergency room with fever spik e of 102.2 and decreasing oxygen saturations. The patient is feeling better today. Denies any other problems. Awaiting transfer to [facility]. Past Medical History: As per HPI. Social History: Nonsmoker nondrinker. Family History: Noncontributory. Medication: Doxycycline, meropenem. Review of Systems: A 10-point review was performed. Physical Examination: General: This is a 73-year-old male, lying in bed, not in any acute cardiopulmonary distress. Vital Signs: Temperature 98.4, pulse 81, respirations 18, blood pressure 132/63. HEENT: Unremarkable. Neck: Supple. Lungs: Basal crackles. Heart: S1, S2. Regular. Abdomen: Soft, nontender. Bowel sounds present. Extremities: No edema. Laboratory Data: Shows WBC 7.9, hemoglobin 12, platelets are 189. Chemistry shows sodium 141, potas sium 4.3, chloride 104, bicarb 32, BUN 27, and creatinine 1.5, glucose is 155. Micro data: E. coli in the urine. Blood cultures negative for [address] chest showing moderate right upper lobe pneu monia and small right pleural effusion. Assessment: Right lower lobe pneumonia in a 73-year-old male with history of heart transplant, curre ntly being treated with doxycycline and meropenem. The patient is feeling slightly better, but appet ite has decreased. As per family, the patient is not eating much. Urine is also growing Escherichia coli only sensitive to nitrofurantoin, cefazolin, Zosyn, meropenem, and amikacin. Plan: Right lobe pneumonia with urinary tract infection with E. coli in a 73-year-old male with hear t transplant and multiple medical conditions, and a recent fall with multiple fracture of ribs on the right side. Continue antibiotic and supportive care. I agree with transferring the patient to the [facility] for further management. Antibiotic course should be about 2 weeks. SANTOS/FCO Voice ID: [id number] Report ID: [id number]
[2018-12-28] MEDS: [UNRECOGNIZED DRUG - OTHER] PO SCH (21:00)
[2018-12-28] MEDS ORDERED: ALPRAZOLAM 0.25 MG TABLET PO SCH (21:00)
[2018-12-28] MEDS: TAMSULOSIN 0.4 MG SR CAP PO SCH (22:14)
[2018-12-28] MEDS: ASPIRIN EC 81 MG TAB PO SCH (22:15)
[2018-12-29] MEDS: Meropenem 500 MG in NA CHLORIDE 0.9% 100 ML IV SCH ×2 (01:07→09:00)
[2018-12-29 06:30] LABS: Absolute Monocytes 0.8 K/uL (0.1-1.3); Absolute Neutrophil 5.7 K/uL (1.8-8.0); Basophils % 0.5 % (0-1.3); Lymphocytes % 13.4 % (15.3-44.8); MPV 9.2 fL (7.6-11.3); Monocytes % 10.9 % (3.3-12.3); RBC Red Blood Cell Count 3.27 M/uL (4.33-5.43)
[2018-12-29 06:43] LABS: Magnesium 2.4 mg/dL (1.8-2.4); Potassium 4.3 mmol/L (3.5-5.1)
[2018-12-29] MEDS: INSULIN -REGULAR HUMAN 50 UNIT/0.5 ML ML SQ SCH ×4 (07:30→21:00)
[2018-12-29] MEDS ORDERED: ALPRAZOLAM 0.5 MG TABLET PO PRN (08:06)
[2018-12-29] MEDS: TACROLIMUS 0.5 MG PO SCH ×2 (09:00→21:00)
[2018-12-29] MEDS: TROSPIUM CHLORIDE PO SCH (09:00)
[2018-12-29] MEDS: PREDNISOLONE 5 MG PO SCH (09:00)
[2018-12-29] MEDS: DOCOSAHEXANOIC AC/EPA 1000 MG PO SCH ×2 (09:08→22:04)
[2018-12-29] MEDS: DOXYCYCLINE 100 MG CAP PO SCH ×2 (09:08→22:09)
[2018-12-29] MEDS: CALCIUM CARB 500MG/VIT D 200 IU TAB PO SCH ×2 (09:08→22:11)
[2018-12-29] MEDS: FERROUS SULFATE 325 MG TAB PO SCH (09:09)
[2018-12-29] MEDS: LABETALOL HCL 100 MG TAB PO SCH ×2 (09:09→22:09)
[2018-12-29] MEDS: THIAMINE HCL 100 MG TABLET PO SCH (09:09)
[2018-12-29] MEDS: DOCUSATE NA 100 MG CAP PO SCH ×2 (09:09→22:07)
[2018-12-29] MEDS: ISOSORBIDE MONO SR 30 MG TAB PO SCH (09:10)
[2018-12-29] MEDS: GUAIFENESIN 600 MG SA TAB PO SCH ×2 (09:10→22:08)
[2018-12-29] MEDS: ALLOPURINOL 100 MG TAB PO SCH ×2 (09:10→22:08)
[2018-12-29] MEDS: FOLIC ACID 1 MG TABLET PO SCH (09:10)
[2018-12-29] MEDS: GABAPENTIN 300 MG CAP PO SCH ×3 (09:11→22:08)
[2018-12-29] MEDS: AMLODIPINE 5 MG TAB PO SCH (09:11)
[2018-12-29] MEDS: HEPARIN 5000 UNIT/ML 1 ML VIAL SQ SCH ×2 (09:21→22:18)
[2018-12-29] MEDS ORDERED: POTASSIUM CL SA 10 MEQ TAB PO ONE (09:25)
[2018-12-29] MEDS: FINASTERIDE 5 MG TAB PO SCH (10:15)
--- NOTE | 2018-12-29 13:07 | P.PN ---
Subjective Date of Service: 12/29/18 Primary Care Provider: unknown Chief Complaint: influenza pneumonia Subjective: Improving (He is doing better today.) Physical Examination - Vital Signs Temperature: 99.2 F Blood Pressure: 120/63 Pulse: 80 Respirations: 20 Pulse Ox (%): 95 - Physical Exam General: Alert, In no apparent distress, Oriented x3, Cooperative HEENT: Atraumatic Neck: Supple Respiratory: Clear to auscultation bilaterally, Normal air movement Cardiovascular: Normal pulses, Regular rate/rhythm Gastrointestinal: Normal bowel sounds, Soft and benign, Non-distended, No masses , No rebound, No guarding Musculoskeletal: No erythema, No tenderness, No warmth Integumentary: No tenderness/swelling, No erythema, No warmth, No cyanosis Neurological: Normal speech, Normal strength at 5/5 x4 extr, Normal tone - Studies Medications List Reviewed: Yes Assessment & Plan Discharge Plan: Home Plan to discharge in: 24 Hours Physician Review Additional Text: Impression: Right upper lobe pneumonia with small pleural effusion complicated with influenza B UTI, urine culture positive for E coli Hypertension CAD History of heart transplant on immunosuppressive therapy and chronic steroids BPH Acute on chronic renal disease, stage III Anemia of chronic disease Plan: Right upper lobe pneumonia with small pleural effusion complicated with influenza B: Spoke with pulmonology today. Patient will continue with antibiotics-doxycycline and Ceftin. Patient has finished course of influenza medication-Tamiflu. Continue monitor closely. Patient is doing extremely well. Anticipate discharge in the next 24 hr. Will wean off oxygen. Will maintain sats above 90%. Continue with DVT prophylaxis. Possible discharge later today if significantly improved. UTI, urine culture positive for E coli: Urine culture reviewed. E coli identified. No ESBL. Will switch antibiotic to Macrobid. Discontinue IV meropenem. Hypertension: Continue medication. Overall stable. CAD: Continue medication. History of heart transplant on immunosuppressive therapy and chronic steroids: Continue medication. BPH: Continue medication. Acute on chronic renal disease, stage III: This has improved. Will continue monitor closely. Anemia of chronic disease: Continue to monitor closely. Overall stable. Continue with medication. Time Spent Managing Pts Care (In Minutes): 55
[2018-12-29] MEDS ORDERED: CETIRIZINE HCL 5 MG TABLET PO PRN (14:16)
[2018-12-29] MEDS: FLUTICASONE 50MCG NASAL SPRAY NAS SCH (15:44)
[2018-12-29] MEDS: [UNRECOGNIZED DRUG - OTHER] PO SCH (21:00)
[2018-12-29] MEDS: NITROFURAN MACRO 50 MG CAP PO SCH (21:00)
[2018-12-29] MEDS: TAMSULOSIN 0.4 MG SR CAP PO SCH (22:00)
[2018-12-29] MEDS: CEFUROXIME 250 MG TAB PO SCH (22:06)
[2018-12-29] MEDS: ASPIRIN EC 81 MG TAB PO SCH (22:07)
[2018-12-29] MEDS: ACETAMINOPHEN 500 MG TAB PO PRN (22:17)
[2018-12-30] MEDS: ACETAMINOPHEN 500 MG TAB PO PRN (04:43)
[2018-12-30 06:01] LABS: Absolute Monocytes 0.9 K/uL (0.1-1.3); Absolute Neutrophil 4.9 K/uL (1.8-8.0); Basophils % 0.5 % (0-1.3); Eosinophils % 1.9 % (0-4.4); Hematocrit 31.4 % (39.6-49.0); Lymphocytes % 14.4 % (15.3-44.8); MPV 9.3 fL (7.6-11.3); Monocytes % 12.8 % (3.3-12.3); RBC Red Blood Cell Count 3.23 M/uL (4.33-5.43)
[2018-12-30 06:04] LABS: Magnesium 2.5 mg/dL (1.8-2.4); Potassium 4.3 mmol/L (3.5-5.1)
[2018-12-30] MEDS: INSULIN -REGULAR HUMAN 50 UNIT/0.5 ML ML SQ SCH ×2 (07:30→11:30)
[2018-12-30] MEDS: FINASTERIDE 5 MG TAB PO SCH (08:46)
[2018-12-30] MEDS: FOLIC ACID 1 MG TABLET PO SCH (08:47)
[2018-12-30] MEDS: DOXYCYCLINE 100 MG CAP PO SCH (08:47)
[2018-12-30] MEDS: LABETALOL HCL 100 MG TAB PO SCH (08:49)
[2018-12-30] MEDS: AMLODIPINE 5 MG TAB PO SCH (08:50)
[2018-12-30] MEDS: THIAMINE HCL 100 MG TABLET PO SCH (08:51)
[2018-12-30] MEDS: ISOSORBIDE MONO SR 30 MG TAB PO SCH (08:51)
[2018-12-30] MEDS: FERROUS SULFATE 325 MG TAB PO SCH (08:51)
[2018-12-30] MEDS: CALCIUM CARB 500MG/VIT D 200 IU TAB PO SCH (08:51)
[2018-12-30] MEDS: DOCOSAHEXANOIC AC/EPA 1000 MG PO SCH (08:51)
[2018-12-30] MEDS: CEFUROXIME 250 MG TAB PO SCH (08:51)
[2018-12-30] MEDS: GUAIFENESIN 600 MG SA TAB PO SCH (08:51)
[2018-12-30] MEDS: DOCUSATE NA 100 MG CAP PO SCH (08:51)
[2018-12-30] MEDS: TACROLIMUS 0.5 MG PO SCH (09:00)
[2018-12-30] MEDS: TROSPIUM CHLORIDE PO SCH (09:00)
[2018-12-30] MEDS: NITROFURAN MACRO 50 MG CAP PO SCH (09:00)
[2018-12-30] MEDS: PREDNISOLONE 5 MG PO SCH (09:00)
[2018-12-30] MEDS: HEPARIN 5000 UNIT/ML 1 ML VIAL SQ SCH (09:03)
[2018-12-30] MEDS: GABAPENTIN 300 MG CAP PO SCH (09:13)
[2018-12-30] MEDS: ALLOPURINOL 100 MG TAB PO SCH (09:13)
[2018-12-30] MEDS: FLUTICASONE 50MCG NASAL SPRAY NAS SCH (09:14)
[2018-12-30 11:11] VITALS: O2SAT 90
--- NOTE | 2018-12-30 11:19 | P.DS ---
Admission Date: 12/26/18 Discharge Date: 12/30/18 Primary Care Provider: unknown Reason for Admission: influenza pneumonia Consultations: Pulmonary-Dr. Palma Procedures: CT scan: FINDINGS: Moderate airspace opacification is seen in the posterior right upper lobe the extending to involve the anterior aspect of the right upper lobe compatible with pneumonia. A small right pleural effusion is seen. Minimal linear atelectasis suspected the left lung base. Motion degradation is present however no hilar obstructing lesion is seen. No pericardial fluid or left pleural effusion. No pneumothorax. No axillary, mediastinal or hilar adenopathy. No acute fracture seen. Sternotomy wires are present. Cyst is present in the liver. All CT scans are performed using dose optimization technique as appropriate and may include automated exposure control or mA/KV adjustment according to patient size. IMPRESSION: Moderate right upper lobe pneumonia is seen with a small right pleural effusion. 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 Patient was positive recently for influenza. He had been given medication for this. In the ER patient found to have pneumonia. Patient was admitted for treatment. Hospital Course: Patient presented with shortness of breath secondary to right upper lobe pneumonia. Patient was admitted for further treatment. Patient had been recently treated for influenza B. Patient finished course of Tamiflu. Patient seen and evaluated by pulmonology. Patient continue with antibiotic therapy. CT scan revealed right upper lobe with small pleural effusion. Patient was transitioned from IV antibiotic therapy to oral. At discharge oxygen saturations within normal range. No significant cough or congestion noted. At discharge he will continue with doxycycline 100 mg 1 pill twice daily and Ceftin 500 mg 1 pill twice daily for 5 more days. Patient will also be given Tessalon Perles 100 mg 1 pill 3 times a day as needed for cough. Recommend to follow up with pulmonology in 1-2 weeks. Recommend to recheck chest x-ray in 2- 4 weeks to monitor resolution. Patient also found to have a UTI. Urine culture positive for E coli. Patient with history of UTIs in the past. He is seen by urology as an outpatient. At discharge patient will continue with Macrobid 50 mg 1 pill twice daily for 5 days. Recommend to recheck urine culture after that time to monitor resolution. Patient has follow up with his urologist in the next 1-2 weeks. Patient has hypertension. Patient will continue with his medications-Norvasc 5 mg daily and labetalol 100 mg 1 pill twice daily. Recommend to maintain blood pressures less 150/80. Further adjustment can be done by his PCP. Patient has CAD. Patient will continue with medication-aspirin 81 mg daily, magnesium 400 mg twice daily, and Imdur 30 mg daily. Patient with history of heart transplant in the past. Patient on immunosuppressive therapy and chronic steroids. At discharge he will continue with his current medications-prednisolone 5 mg daily, folic acid 1 mg daily, and Prograf 0.5 mg 1 pill twice daily and follow up with the transplant team. Patient with BPH with urinary incontinence. Patient will continue with his medications-Flomax 0.4 mg daily, Proscar 5 mg daily, and Sanctura 20 mg daily. Patient has follow up with urology soon. Patient with acute on chronic renal disease, stage III. This improved with treatment. Recommend no further use of nonsteroidal anti-inflammatories. Future medications may need to be renally dosed. Patient on diuretic therapy. This should be monitored closely as medications may need to be adjusted. Recommend to follow up with nephrology as an outpatient to further monitor. Recommend to recheck lab-BMP in 1-2 weeks to monitor stability. Patient with anemia of chronic disease. This has remained stable. Patient may continue with his iron supplementation. Recommend to recheck lab-CBC in 1-2 weeks to monitor his progress. Patient with diabetes mellitus type 2. Patient insulin-dependent. Patient may continue with insulin 70/30 12 units subcu twice daily. Recommend to maintain blood sugars less 140 fasting and less than 200 after meals. Further adjustment can be done by his PCP. Patient with GERD. Patient continue with his medication-Nexium. Patient with hyperlipidemia. Patient will continue with pravastatin 80 mg daily. Patient likely with underlying chronic CHF. This has remained stable. Patient will continue with his diuretic therapy including torsemide 40 mg daily. Patient also takes metalazone as needed. Diuretic therapy should be monitored closely due to his chronic renal disease. Medications may need to be adjusted in the future. This can be further addressed by his nanotechnology engineering technologist or PCP. Patient also takes potassium supplementation. Vital Signs/Physical Exam: Temp Pulse Resp BP Pulse Ox 97.8 F 110 H 20 129/67 90 L 12/30/18 08:00 12/30/18 08:50 12/30/18 08:00 12/30/18 08:50 12/30/18 08:00 General: Alert, In no apparent distress, Oriented x3, Cooperative HEENT: Atraumatic, Mucous membr. moist/pink Neck: Supple Respiratory: Clear to auscultation bilaterally, Normal air movement Cardiovascular: Normal pulses, Regular rate/rhythm Gastrointestinal: Normal bowel sounds, Soft and benign, Non-distended, No tenderness, No masses, No rebound, No guarding Musculoskeletal: No erythema, No tenderness, No warmth Integumentary: No tenderness/swelling, No erythema, No warmth, No cyanosis Neurological: Normal speech, Normal strength at 5/5 x4 extr, Normal tone, Normal affect Lymphatics: No axilla or inguinal lymphadenopathy Laboratory Data at Discharge: WBC 6.9 K/uL (4.3-10.9) 12/30/18 05:20 Hgb 10.5 g/dL (13.6-17.9) L 12/30/18 05:20 Hct 31.4 % (39.6-49.0) L 12/30/18 05:20 Plt Count 208 K/uL (152-406) 12/30/18 05:20 PT 14.7 SECONDS (9.5-12.5) H 12/26/18 18:56 INR 1.26 12/26/18 18:56 Sodium 140 mmol/L (136-145) 12/30/18 05:20 Potassium 4.3 mmol/L (3.5-5.1) 12/30/18 05:20 BUN 28 mg/dL (7-18) H 12/30/18 05:20 Creatinine 1.36 mg/dL (0.55-1.3) H 12/30/18 05:20 Glucose 94 mg/dL (74-106) 12/30/18 05:20 Magnesium 2.5 mg/dL (1.8-2.4) H 12/30/18 05:20 Total Bilirubin 0.7 mg/dL (0.2-1.0) 12/26/18 18:56 AST 23 U/L (15-37) 12/26/18 18:56 ALT 19 U/L (12-78) 12/26/18 18:56 Alkaline Phosphatase 83 U/L (45-117) 12/26/18 18:56 Home Medications: ALPRAZolam [Xanax*] 0.5 mg PO BEDTIME 05/01/15 Allopurinol 100 mg PO BID 05/01/15 Aspirin [Aspirin EC 81 MG] 81 mg PO 30 MIN BEFORE HS 05/01/15 Calcium Carb/Vitamin D3/Vit K1 [Calcium + D Soft Chewable Tab] 600 mg PO BID 02/08 Docosahexanoic AC/Epa [Fish Oil 1,000 MG*] 1,000 mg PO BID 05/01/15 Esomeprazole Mag Trihydrate [Nexium] 20 mg PO BEDTIME 05/01/15 Esomeprazole Mag Trihydrate [Nexium] 40 mg PO QPRCO2HB 05/01/15 Folic Acid 1 mg PO DAILY 05/01/15 Gabapentin Enacarbil [Horizant] 300 mg PO TID 05/01/15 Insulin 70/30 NPH/Reg Human [Novolin 70/30*] 12 unit SQ BID 05/01/15 Magnesium Oxide [Mag 0X*] 400 mg PO BID 05/01/15 Potassium Chloride [Micro-K] 10 meq PO DAILY 05/01/15 Pravastatin [Pravachol*] 80 mg PO 30 MIN BEFORE HS 05/01/15 Prednisolone [Millipred] 5 mg PO DAILY 05/01/15 Tacrolimus [Prograf] 0.5 mg PO BID 05/01/15 Tamsulosin [Flomax*] 0.4 mg PO 30 MIN BEFORE HS 05/01/15 Thiamine HCl 100 mg PO DAILY 05/01/15 Torsemide [Demadex*] 40 mg PO DAILY 05/01/15 Amlodipine [Norvasc*] 1 tab PO DAILY 12/27/18 Cranberry Conc/C/Bacill Coag [Cranberry Tablet] 4,200 mg PO BEDTIME 12/27/18 Docusate Sodium 1 cap PO BID 12/27/18 Ferrous Sulfate [Ferrous Sulfate*] 1 tab PO DAILY 12/27/18 Finasteride [Proscar*] 1 tab PO DAILY 12/27/18 Isosorbide Mononitrate [Isosorbide Mononitrate ER] 1 tab PO DAILY 12/27/18 Labetalol HCl [Trandate*] 100 mg PO BID 12/27/18 Trospium Chloride [Sanctura] 1 tab PO DAILY 12/27/18 metOLazone [Metolazone] 2.5 mg PO PRN PRN 12/27/18 Benzonatate [Tessalon Perle*] 100 mg PO Q6H PRN #30 cap 12/30/18 Cefuroxime [Ceftin*] 500 mg PO BID #20 tab 12/30/18 Doxycycline Hyclate 100 mg PO BID #10 tablet 12/30/18 Nitrofuran Macro [Macrodantin*] 50 mg PO BID #10 cap 12/30/18 New Medications: Benzonatate [Tessalon Perle*] 100 mg PO Q6H PRN #30 cap PRN Reason: Cough Cefuroxime [Ceftin*] 500 mg PO BID #20 tab Doxycycline Hyclate 100 mg PO BID #10 tablet Nitrofuran Macro [Macrodantin*] 50 mg PO BID #10 cap Patient Discharge Instructions: 1. Patient will follow up his PCP in 1 week to follow up this hospitalization. 2. Patient presented with shortness of breath secondary to right upper lobe pneumonia. Patient was admitted for further treatment. Patient had been recently treated for influenza B. Patient finished course of Tamiflu. Patient seen and evaluated by pulmonology. Patient continue with antibiotic therapy. CT scan revealed right upper lobe with small pleural effusion. Patient was transitioned from IV antibiotic therapy to oral. At discharge oxygen saturations within normal range. No significant cough or congestion noted. At discharge he will continue with doxycycline 100 mg 1 pill twice daily and Ceftin 500 mg 1 pill twice daily for 5 more days. Patient will also be given Tessalon Perles 100 mg 1 pill 3 times a day as needed for cough. Recommend to follow up with pulmonology in 1-2 weeks. Recommend to recheck chest x-ray in 2-4 weeks to monitor resolution. 3. Patient also found to have a UTI. Urine culture positive for E coli. Patient with history of UTIs in the past. He is seen by urology as an outpatient. At discharge patient will continue with Macrobid 50 mg 1 pill twice daily for 5 days. Recommend to recheck urine culture after that time to monitor resolution. Patient has follow up with his urologist in the next 1-2 weeks. 4. Patient has hypertension. Patient will continue with his medications-Norvasc 5 mg daily and labetalol 100 mg 1 pill twice daily. Recommend to maintain blood pressures less 150/80. Further adjustment can be done by his PCP. 5. Patient has CAD. Patient will continue with medication-aspirin 81 mg daily, magnesium 400 mg twice daily, and Imdur 30 mg daily. 6. Patient with history of heart transplant in the past. Patient on immunosuppressive therapy and chronic steroids. At discharge he will continue with his current medications- prednisolone 5 mg daily, folic acid 1 mg daily, and Prograf 0.5 mg 1 pill twice daily and follow up with the transplant team. 7. Patient with BPH with urinary incontinence. Patient will continue with his medications-Flomax 0.4 mg daily, Proscar 5 mg daily, and Sanctura 20 mg daily. Patient has follow up with urology soon. 8. Patient with acute on chronic renal disease, stage III. This improved with treatment. Recommend no further use of nonsteroidal anti- inflammatories. Future medications may need to be renally dosed. Patient on diuretic therapy. This should be monitored closely as medications may need to be adjusted. Recommend to follow up with nephrology as an outpatient to further monitor. Recommend to recheck lab-BMP in 1-2 weeks to monitor stability. 9. Patient with anemia of chronic disease. This has remained stable. Patient may continue with his iron supplementation. Recommend to recheck lab-CBC in 1-2 weeks to monitor his progress. 10. Patient with diabetes mellitus type 2. Patient insulin-dependent. Patient may continue with insulin 70/30 12 units subcu twice daily. Recommend to maintain blood sugars less 140 fasting and less than 200 after meals. Further adjustment can be done by his PCP. 11. Patient with GERD. Patient continue with his medication- Nexium. 12. Patient with hyperlipidemia. Patient will continue with pravastatin 80 mg daily. 13. Patient likely with underlying chronic CHF. This has remained stable. Patient will continue with his diuretic therapy including torsemide 40 mg daily. Patient also takes metalazone as needed. Diuretic therapy should be monitored closely due to his chronic renal disease. Medications may need to be adjusted in the future. This can be further addressed by his nanotechnology engineering technologist or PCP. Patient also takes potassium supplementation. Diet: ADA Activity: Fall precautions Time spent managing pt's care (in minutes): 55
[2018-12-30 12:15] VITALS: BP 133/60; TEMP 99
== END 2018-12-30 12:03 | disposition home or self-care (01) | DRG 194 ==
LOC: ER 17:44 → ERHOLD 21:21 → 4TH 21:55
PROVIDERS: ADMIT Internal Medicine; ATTEND Internal Medicine
DX: J11.00 Influenza due to unidentified influenza virus with unspecified type of pneumonia (principal); Z94.1 Heart transplant status; N30.00 Acute cystitis without hematuria; I13.0 Hypertensive heart and chronic kidney disease with heart failure and stage 1 through stage 4 chronic kidney disease, or unspecified chronic kidney disease; I50.32 Chronic diastolic (congestive) heart failure; N17.9 Acute kidney failure, unspecified; M10.9 Gout, unspecified; K21.9 Gastro-esophageal reflux disease without esophagitis; E78.5 Hyperlipidemia, unspecified; B96.20 Unspecified Escherichia coli [E. coli] as the cause of diseases classified elsewhere; I25.10 Atherosclerotic heart disease of native coronary artery without angina pectoris; D63.1 Anemia in chronic kidney disease; N40.1 Benign prostatic hyperplasia with lower urinary tract symptoms; N39.498 Other specified urinary incontinence; Z79.4 Long term (current) use of insulin; Z79.82 Long term (current) use of aspirin; Z79.52 Long term (current) use of systemic steroids; E11.22 Type 2 diabetes mellitus with diabetic chronic kidney disease; N18.3 Chronic kidney disease, stage 3 (moderate)
CPT/HCPCS: 36415; 71045; 71046; 71250; 80048; 80076; 81003; 82962; 83605; 83735; 83880; 84145; 84484; 85025; 85610; 87040; 87077; 87086; 87088; 87186; 87804; 94640; 94760; 96361; 96365; 96375; 99285; G9035; J0456; J0696; J1644; J2405; J7030

== ENCOUNTER 2020-07-10 09:38 | Emergency (ER) | payer OTHER ==
--- OUTSIDE RECORDS SUMMARY | 2020-07-10 09:52 | XMS REPORT | Clinical Summary ---
:1945 Author Organization [facility] Address [address] [place] [address] Care Team Providers Name Role Phone Lily Mancia Primary Care Provider Allergies Active Allergy Reactions [...] tablet Active Problems No known active problems Social History Tobacco Use Types Packs/Day Years Used Date Former Smoker Quit: 1987 Smokeless Tobacco: Never Used Alcohol Use Drinks/Week oz/Week Comments Yes "VERY SELDOM" Sex Assigned at Date Recorded Not on file Last Filed Vital Signs Not on file Plan of Treatment Not on file Results Not on fileafter 07/10/2019 Insurance Payer Benefit Plan / Subscriber ID Effective Dates Phone Addre ss Type Group MEDICARE MEDICARE A B [id number] 1997-Present Medicare [facility] GENERIC MEDICARE [id number] 2008-Present [employer] SUPPLEMENT/JADEN SUPPLEMENT VIDUAL
--- OUTSIDE RECORDS SUMMARY | 2020-07-10 09:52 | XMS REPORT | Clinical Summary ---
:1945 Author Organization [facility] Address [address] [place] [address] Care Team Providers Name Role Phone Hany Maloney MD Primary Care Provider Allergies Active Allergy Reactions Severity Noted Date Comments Sirolimus Anaphylaxis, Swelling High 08/06/2016 Medications Medication Sig Dispensed Refills Start Date End Date Status allopurinol (ZYLOPRIM) Take 100 mg by 0 Active 100 MG tablet mouth 2 (two) times a day. ALPRAZolam (XANAX) 0.5 Take 0.5 mg by 0 Active MG tablet mouth nightly as needed for anxiety. aspirin (ECOTRIN) 81 Take 81 mg by 0 Active MG enteric coated mouth daily. tablet calcium Take 1 tablet by 0 Act tricia carbonate-vitamin D3 mouth 2 (two) 600 mg(1,500mg) -200 times a day with unit per tablet meals. tamsulosin (FLOMAX) Take 0.4 mg by 0 Active 0.4 mg mouth nightly. capsule,extended release 24hr ferrous sulfate 325 Take 325 mg by 0 Active (65 FE) MG tablet mouth daily with breakfast. amLODIPine (NORVASC) 5 Take 5 mg by 0 Active MG tablet mouth daily. esomeprazole (NexIUM) Take 40 mg by 30 capsule 0 01/22/2018 Active 20 MG capsule mouth every morning and 20 mg by mouth every evening montelukast Take 1 tablet (10 30 tablet 0 01/22/2018 Active (SINGULAIR) 10 mg mg total) by tablet mouth as needed (allergies). Additional Information Patient taking differently: 10 mg oral daily PRN, allergies, Informant: Spouse/Significant Other, Reported on 02/08/2020 omega 7-[id number]-fish oil Take 2,000 mg by 0 Active (FISH OIL) 1,000 mg (120 mouth 2 (two) times mg-180 mg) capsule a day. thiamine 100 MG tablet Take 100 mg by mouth 0 Active daily. labetalol (NORMODYNE) Take 1 tablet (100 60 tablet 11 8 Active 100 MG tablet mg total) by mouth 2 1 (two) times a day. finasteride (PROSCAR) 5 Take 5 mg by mouth 0 Active mg tablet nightly. traMADol (ULTRAM) 50 mg Take 50 mg by mouth 1 2018 Active tablet as needed. magnesium oxide (MAG-OX) TAKE 1 TABLET (400 180 tablet 3 09/11 Active 400 mg (241.3 mg MG TOTAL) BY MOUTH 2 0 magnesium) tablet (TWO) TIMES A DAY. isosorbide mononitrate TAKE 1 TABLET BY 90 tablet 3 10/11/2019 Active (IMDUR) 30 MG 24 hr MOUTH EVERY DAY tablet torsemide (DEMADEX) 20 TAKE 2 TABLETS BY 180 tablet 3 10/11/19 20 Active MG tablet MOUTH EVERY DAY tacrolimus (PROGRAF) 0.5 Take 1 capsule (0.5 180 capsule 3 Active MG capsule mg total) by mouth 2 1 (two) times a day. Z94.1 heart transplant gabapentin (NEURONTIN) TAKE 1 CAPSULE THREE 270 capsule 3 09/27 Active 300 mg capsule TIMES DAILY Additional Information Patient taking differently: 300 mg oral 3 times daily, TAKE 1 CAPSULE THREE TIMES DAILY, Informant: Spouse/Significant Other, Reported on 02/08/2020 pravastatin (PRAVACHOL) TAKE 1 TABLET BY 90 tablet 3 0 Active 80 MG tablet MOUTH EVERY DAY potassium chloride TAKE 2 TABLETS BY 180 tablet 3 12/27/2019 Active (K-DUR) 10 MEQ CR tablet MOUTH EVERY DAY metOLazone (Zaroxolyn) Take 1 tablet (2.5 36 tablet 3 01/19/20 20 01/18/2021 Active 2.5 MG tablet mg total) by mouth 3 (three) times a week. Titrate to effect using 2-3 tablets per week as needed. Additional Information Patient taking differently: 2.5 mg oral PRN, Titrate to effect using 2-3 tablets per week as needed., Informant: Spouse/Significant Other, Reported on 02/08/2020 NovoLIN 70/30 U-100 Insulin INJECT UNDER THE SKIN 12 30 mL 3 02/12/2020 Active 100 unit/mL (70-30) injection UNITS EVERY MORNING AND 20 UNITS EVERY EVENING HYDROcodone-acetaminophen Take 1 tablet by mouth every 0 Active (NORCO) 5-325 mg per 6 (six) hours as needed for tabletIndications: acute pain moderate pain .acute pain. insulin ASPART protamine and 12 units in the morning 20 21 mL 5 02/15/2020 Active insulin ASPART (NovoLOG units at night 70/30) 100 unit/mL (70-30) insulin pen Additional Information Patient taking differently: 8 units in the morning 20 units at night, Reported on 02/23/2020 baclofen (LIORESAL) 10 Take 1 tablet 270 tablet 0 02/27/2020 Active MG tabletIndications: (10 mg total) Musculoskeletal neck by mouth 3 pain (three) times a day as needed for muscle spasms. blood sugar diagnostic DX E11.65 300 strip 3 03/04/2020 Active strips (glucose blood) Patient is strip test strips testing TID. Please match to machine. lancets 33 gauge misc DX E11.65 300 each 5 03/06/2020 Active Patient is testing TID. One Touch Verio folic acid (FOLVITE) 1 TAKE 1 TABLET 90 tablet 3 03/12/2020 Active MG tablet BY MOUTH EVERY DAY insulin syringe-needle USE TO INJECT 100 each 6 03/25/2020 Active U-100 (BD Insulin TWICE DAILY Syringe Ultra-Fine) 0.5 mL 31 gauge x 5/16" syringeIndications: Uncontrolled type 2 diabetes mellitus without complication, with long-term current use of insulin sertraline (ZOLOFT) 50 Take 1 tablet 90 tablet 1 04/18/2020 Active MG tabletIndications: (50 mg total) Depression, unspecified by mouth daily. depression type predniSONE (DELTASONE) TAKE 1 AND /2 135 tablet 3 05/17/202005/17 Active 5 mg tablet TABLETS DAILY /2020 BY MOUTH sodium,potassium,mag USE DIRECTED 354 mL 0 05/19/2020 Active sulfates (Suprep Bowel Prep Kit) 17.5-3.13-1.6 gram recon soln cephalexin (Keflex) 500 Take 1 capsule 10 capsule 0 07/09/202007/14 Active MG capsule (500 mg total) /2019 by mouth 2 (two) times a day for 5 days. Rt lower leg laceration multivitamin Take 1 tablet 0 12/05 Dis continued (THERAGRAN) tablet by mouth daily. (Patient Reported) metOLazone (ZAROXOLYN) Take 1 tablet 30 tablet 0 01/22/2018 Discontinued 2.5 MG tablet (2.5 mg total) ( Reorder) by mouth as needed (fluid). Titrate to effect gabapentin (NEURONTIN) TAKE 1 CAPSULE 270 capsule 3 09/23/201810/13 Discontinued 300 mg capsule THREE TIMES /2019 (Re order) DAILY potassium chloride Take 2 tablets 180 tablet 3 10/06/2018 1 Discontinued (K-DUR,KLOR-CON) 10 MEQ (20 mEq total) / 2019 CR tablet by mouth daily. isosorbide mononitrate Take 1 tablet 90 tablet 3 10/17/2018 Discontinued (IMDUR) 30 MG 24 hr (30 mg total) /2019 tablet by mouth daily. torsemide (DEMADEX) 20 Take 2 tablets 180 tablet 3 11/24/201810/11 Discontinued MG tablet (40 mg total) /2019 by mouth daily. pravastatin (PRAVACHOL) Take 1 tablet 90 tablet 3 12/07/2018 0 11/13 Discontinued 80 MG tablet (80 mg total) /2019 by mouth daily. tacrolimus (PROGRAF) Take 1 capsule 60 capsule 11 01/09/2019 Discontinued 0.5 MG capsule (0.5 mg total) (Reorder) by mouth 2 (two) times a day. Z94.1 heart transplant insulin syringe-needle USE TO INJECT 180 each 6 02/03/2019 0 03/25 Discontinued U-100 (BD INSULIN TWICE DAILY /2019 SYRINGE ULT-FINE II) 0.5 mL 31 gauge x 5/16" syringeIndications: Uncontrolled type 2 diabetes mellitus without complication, with long-term current use of insulin magnesium oxide Take 1 tablet 60 tablet 11 02/06/201912/05 Discontinued (MAG-OX) 400 mg (241.3 (400 mg total) /2 020 (Patient mg magnesium) tablet by mouth 2 Reported) (two) times a day. folic acid (FOLVITE) 1 TAKE 1 TABLET 90 tablet 3 02/17/2019 Discontinued MG tablet BY MOUTH EVERY DAY docusate sodium 100 mg Twice a day 0 04/18/201810/28 1 Discontinued capsule insulin ASPART Inject under 0 02/14 Di scontinued protamine and insulin the skin (Reorder) ASPART (NovoLOG 70/30) (two) times a 100 unit/mL (70-30) day. 8 units in insulin pen the morning 16 units at night trospium (SANCTURA) 20 Take 20 mg by 3 03/10/2019 Discontinued mg tablet mouth 2 (two) (Thera py times a day. complet ed) sertraline (ZOLOFT) 50 Take 1 tablet 90 tablet 0 05/04/2019 Discontinued MG tabletIndications: (50 mg total) / 9 (Reorder) Depression, unspecified by mouth daily. depression type predniSONE (DELTASONE) Take 1.5 135 tablet 3 05/08/201905/17 Discontinued 5 mg tablet tablets (7.5 mg /2019 total) by mouth daily. Z94.1 Heart Txp S/P ONETOUCH DELICA LANCETS DX E11.65 Test 300 each 5 05/22/201902/06 Discontinued 33 gauge misc glucose 3 times (Discontinued by daily another clinician) ONETOUCH VERIO strip 3 (three) times 3 04/20/2019 Discontinued test strips a day. Testing TID DX: E11.65 sertraline (ZOLOFT) 50 Take 1 tablet 90 tablet 2 07/24/2019 Discontinued MG tabletIndications: (50 mg total) / 0 (Reorder) Depression, unspecified by mouth daily. depression type ONETOUCH DELICA LANCETS TEST 4 TIMES A 400 each 1 09/06/201912/05 Discontinued 33 gauge DAY (Patient miscIndications: Rep orted) Uncontrolled diabetes mellitus type 2 without complications labetalol (NORMODYNE) TAKE 1 TABLET 180 tablet 2 09/11/2019 Discontinued 100 MG tablet BY MOUTH TWICE /2019 A DAY docusate sodium 100 mg Take 100 mg by 60 tablet 1 11/07/2019 0 02/07 Discontinued capsule mouth 2 (two) (Disco ntinued by times a day as anoth er needed for clinician ) constipation. Twice a day sodium,potassium,mag Use as directed 354 mL 0 12/06/2019 Discontinued sulfates (SUPREP BOWEL by physician / 0 (Reorder) PREP KIT) 17.5-3.13-1.6 gram recon soln OneTouch Verio strip TEST 3 TIMES 300 strip 3 01/08/202002/06 Discontinued test stripsIndications: DAILY (Discontinued by Type 2 diabetes anot her mellitus without cli nician) complication, without long-term current use of insulin ([facility]) baclofen (LIORESAL) 10 Take 1 tablet 90 tablet 5 02/26/2020 Discontinued MG tabletIndications: (10 mg total) 0 (Reorder) Musculoskeletal neck by mouth 3 pain (three) times a day as needed for muscle spasms. nubrklfjgK-caryvodfou-w Take 1 capsule 90 capsule 0 05/30/202006/05 Discontinued af-cod [id number] mg by mouth (Reorder) capsuleIndications: (three) times a chronic pain day as needed (Headache) for up to 30 days .chronic pain. dahwtveirB-rwsjrzjhbc-j Take 1 capsule 90 capsule 0 06/05/202007/05 af-cod [id number] mg by mouth capsuleIndications: (three) times a chronic pain day as needed (Headache) for up to 30 days .chronic pain. Active Problems Problem Noted Date Osteopenia of multiple sites 05/07/2020 Vitamin D deficiency 05/07/2020 Headaches due to old head injury 04/10/2019 Overview: Followed by Neurology Post 2017 fall with concussion and subse quent memory losses. 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 Overview: Added automatically from request for abilio zavala [id number] Subclinical hypothyroidism 06/20/2018 Closed fracture of multiple ribs of right side 018 Overview: Multiple Rib Fx from fall from ladder hosp 5 plus days at local hospital Diarrhea 02/25/2018 Cellulitis 01/17/2018 Chest pain 08/05/2017 Type II or unspecified type diabetes mellitus without mention of 05/12/2016 complication, uncontrolled 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 Failed prednisone wean. Visit Date biopsy C4D Treatment Echo CMV Level Annual Year 12 11/21/18 [facility] clear BNP 155 , SCr 1.87, GFR 34, Chol 141,osteopenia, clear coronaries on cath 60-64 neg 6.6 Clinic 01/09/19 Post local HOSP (5 days ) Influenza & pneumonia [id number]; SCr 1.89 3.8 Clinic 02/06/19 C/O memory loss SCr 2. 03 4.4 Clinic 03/28/19 AlloMap BX waved 36 C/O Chest pain-possible pinc hed nerve or muscle strain suspected per assessment. BNP 250,Trop <0.006, Scr 2.09, Neuro fol lowup; if cont .. 65-69 neg 6.7 Annual Y-13 11/08/19 PET 35% LM No iscemia BNP 184, SCr 1.8/GFR 3 6 , HA1c 7.1, Chol 147 Cath canceled- >PET; Dex Ostepeia, Renal 7 liver cyst; follow up with Chrissy Maloney Ho, & dermatology EF 70% Pos Cw5 neg 4.7 12/27/19 Patient treated as out pt. Fo r fluid over-load. Zaroxolyn 5mg x2 days and pt doing better GI Notes 02/08/20 EGD & Bruin Performed; multiple polyps but no carcinoma Delayed stomach emptying noted. Addition al testing for gastroparesis ordered. 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 Uncontrolled type 2 diabetes mellitus 11/14/2013 Candidiasis of mouth 09/02/2012 Esophagitis 09/02/2012 Ulcer of esophagus 09/02/2012 Abdominal pain 03/03/2012 Candidiasis of esophagus 03/03/2012 Gastroesophageal reflux disease 03/03/2012 Encounters Date Type Specialty Care Team Description Office Visit Transplant Minal, Heart transplan karla ([facility]) (Primary Dx); 0 MD Yash Chronic kidney disease, stage V ([facility]); Khalida Faulkner, Essential hyp ertension; Long-term use o f immunosuppressant medication; Mixed hyperlipi demia; Diabetes mellit us due to underlying condition with stage 3a chronic kidney disease, unspecified whether custodial insulin use ([facility]); Pain of lower e xtremity, unspecified laterality; Headaches due t o old head injury; Diabetes mellit us due to underlying condition with diabetic nephropathy, with long-term current use of insulin ([facility]); Complication of heart transplant, unspecified complication ([facility]); Transplant reje ction; Therapeutic renata g monitoring; Chronic fatigue ; Osteopenia dete rmined by x-ray; Metabolic syndr ome; Enlarged prosta te; Cytomegalovirus infection, unspecified cytomegaloviral infection type ([facility]); 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; CRF (chronic re nal failure), stage 3 (moderate); Infection; Hyperlipidemia associated with type 2 diabetes mellitus ([facility]); Hyperthyroidism Travel [facility], Chronic nonintr actable 0 MELINDA Joseph headache, unspe cified headache type Orders Only Neurology [facility], Chronic nonintr actable 0 Caseyammad headache, unspe cified MD Jeniffer headache type ( Primary Dx) Refill Neurology Harpreet, 0 MELINDA Joseph Travel 0 Orders Only [facility], Acute nonintrac table 0 MELINDA Joseph headache, unspe cified headache type ( Primary Dx) Telephone Neurology Harpreet, 0 MELINDA Joseph Refill Gastroenterology Jem Mcnair 0 MD Niles Documentation Transplant Chase Roman, 0 RN Travel 0 Refill Cardiology Bhimaraj, Med Refill 0 MD Yash Telephone Endocrinology Kerrie Bosch, 0 RT Brigid Telemedicine Endocrinology Britney Maloeny Uncontrolled type 2 diabetes mellitus with hyperglycemia (HCC) (Primary Dx); 0 MD Hayn Mixed hyperlipi demia; Chronic kidney disease, stage V ([facility]); Disorder of hea rt transplantation ([facility]); Subclinical hyp othyroidism; Diabetic monone uropathy associated with diabetes mellitus due to underlying condition ([facility]); Osteopenia of m ultiple sites; Vitamin D defic iency Orders Only Endocrinology Britney Maloney 0 MD Hany [facility], Depression, 0 MELINDA Joseph unspecified dep ression type Refill Endocrinology Britney Maloney Uncontrolled type 2 0 MD Hany diabetes mellit us without complic ation, with long-term current use of insulin (HCC) Refill Cardiology Bhimaraj, Med Refill 0 MD Yash Orders Only Endocrinology Whaley, 0 PEREZ Leary Orders Only Endocrinology Whaley, 0 PEREZ Leary Telephone Gastroenterology Urbano, 0 PEREZ Shafer Telephone Gastroenterology Jem Mcnair 0 MD [facility] Encounter Radiology Nayan Early sat iety 0 Greg Adames MD Travel 0 Refill Neurology Harpreet, Musculoskeletal neck 0 MELINDA Joseph pain Telephone Consult Neurology Nakawaloyd, Musculoske letal neck pain (Primary Dx); 0 Bob Bilateral occip ital neuralgia; MD Jeniffer 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); Cerebral amyloi d angiopathy (CODE); History of isch emic left MCA stroke; Mixed anxiety a nd depressive disorder; Tremor of both hands Hospital Encounter Radiology Sixto Spicer sat iety 0 Greg Adames MD Orders Only Gastroenterology Jem Mcnair Early sa tiety (Primary 0 MD Niles Dx) Travel 0 Documentation Transplant Chsae Roman, 0 RN Orders Only Endocrinology Whaley, 0 PEREZ Leary Travel 0 Telephone Gastroenterology Jem Mcnair sa tiety (Primary 0 MD Niles Dx) Surgery Gastroenterology Nayan, EGD with bi opsy 0 Greg Adames MD Anesthesia Event Gastroenterology Dhother, 0 MD Leeanne Roberts Teri, NP Hospital Encounter Gastroenterology Nayan, 0 Greg Adames MD Orders Only Endocrinology Navi, [address] Travel 0 Refill Endocrinology Charles Maloneyana 0 MD Hany Orders Only Gastroenterology Clement, 0 PEREZ Shafer Travel 0 Telephone Gastroenterology Jem Mcnair 0 MD Niles Orders Only Transplant Chase Roman, 0 RN Refill Endocrinology Britney Maloney Type 2 diabe adamaris 0 MD Hany mellitus withou t complication, w ithout long-term curre nt use of insulin ([facility] ) Telephone Transplant Davina Espinosa MA Critical Lab Results 0 Telephone Transplant Brown, Urgent Results 0 Blaire Alas MA Orders Only Cardiology [facility], 0 MD Yash Documentation Transplant Erickrhonda Chase, 0 RN Refill Transplant [facility], Med Refill 0 MD Yash Telephone Gastroenterology Jem Mcnair 0 MD [place] Office Visit Gastroenterology Jem Mcnair Melena ( Primary Dx); 0 MD Niles Adenomatous bob yp of descending colon; Gastropathy Orders Only Gastroenterology [place]ano, 0 PEREZ Shafer Travel 0 Telephone Gastroenterology [place], 0 PEREZ Contreras Refill Endocrinology Britney Maloney 0 MD Hany Office Visit Neurology Raúl, Bilateral occip ital neuralgia (Primary Dx); 0 Bob Musculoskeletal neck pain; MD Jeniffer 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, 0 MELINDA Joseph Office Visit Transplant Bhimaraj, Heart transplan karla (HCC) (Primary Dx); 0 MD Yash Chronic kidney disease, stage V ([facility]); Xavi, Diabetes melli tus due to underlying condition with diabetic nephropathy, with long-term current use of insulin ([facility]); MD Elias Mixed hyperlipi demia; Long-term use o f immunosuppressant medication; Pain of lower e xtremity, unspecified laterality; Headaches due t o old head injury; Essential hyper tension; Complication of heart transplant, unspecified complication ([facility]); Transplant reje ction; Therapeutic renata g monitoring; Chronic obstruc tive pulmonary disease, unspecified COPD type (HCC); Chronic fatigue ; Osteopenia dete rmined by x-ray; Metabolic syndr ome; Enlarged prosta te; Prostate cancer screening; Cytomegalovirus infection, unspecified cytomegaloviral infection type (HCC); Chest pain, uns pecified type; Subclinical hyp othyroidism; History of rece nt pneumonia Hospital Encounter Radiology Khalida Faulkner Heart t ransplanted (HCC); 0 MD Chronic kidney disease, stage V (HCC); Essential hyper tension; Mixed hyperlipi demia; Long-term use o f immunosuppressant medication; Complication of heart transplant, unspecified complication (HCC); Transplant reje ction; Therapeutic renata g monitoring; Chronic obstruc tive pulmonary disease, unspecified COPD type (HCC); Chronic fatigue ; Osteopenia dete rmined by x-ray; Metabolic syndr ome; Enlarged prosta te; Prostate cancer screening; Cytomegalovirus infection, unspecified cytomegaloviral infection type (HCC); Chest pain, uns pecified type; Subclinical hyp othyroidism; History of rece nt pneumonia Hospital Encounter Radiology Khalida Fualkner Heart t ransplanted (HCC); 0 MD Chronic kidney disease, stage V (HCC); Essential hyper tension; Mixed hyperlipi demia; Long-term use o f immunosuppressant medication; Complication of heart transplant, unspecified complication (HCC); Transplant reje ction; Therapeutic renata g monitoring; Chronic obstruc tive pulmonary disease, unspecified COPD type (HCC); Chronic fatigue ; Osteopenia dete rmined by x-ray; Metabolic syndr ome; Enlarged prosta te; Prostate cancer screening; Cytomegalovirus infection, unspecified cytomegaloviral infection type (HCC); Chest pain, uns pecified type; Subclinical hyp othyroidism; History of rece nt pneumonia Hospital Encounter Procedural Cardiology Khalida Faulkner , Heart transplanted (HCC); 0 MD Chronic kidney disease, stage V (HCC); Essential hyper tension; Mixed hyperlipi demia; Long-term use o f immunosuppressant medication; Complication of heart transplant, unspecified complication (HCC); Transplant reje ction; Therapeutic renata g monitoring; Chronic obstruc tive pulmonary disease, unspecified COPD type (HCC); Chronic fatigue ; Osteopenia dete rmined by x-ray; Metabolic syndr ome; Enlarged prosta te; Prostate cancer screening; Cytomegalovirus infection, unspecified cytomegaloviral infection type (HCC); Chest pain, uns pecified type; Subclinical hyp othyroidism; History of rece nt pneumonia Hospital Encounter Procedural Cardiology Khalida Faulkner Heart transplanted (HCC); 0 MD Chronic kidney disease, stage V (HCC); Essential hyper tension; Mixed hyperlipi demia; Long-term use o f immunosuppressant medication; Complication of heart transplant, unspecified complication (HCC); Transplant reje ction; Therapeutic renata g monitoring; Chronic obstruc tive pulmonary disease, unspecified COPD type (HCC); Chronic fatigue ; Osteopenia dete rmined by x-ray; Metabolic syndr ome; Enlarged prosta te; Prostate cancer screening; Cytomegalovirus infection, unspecified cytomegaloviral infection type (HCC); Chest pain, uns pecified type; Subclinical hyp othyroidism; History of rece nt pneumonia Hospital Encounter Radiology Khalida Faulkner Heart t ransplanted ([facility]); 0 MD Chronic kidney disease, stage V (HCC); Essential hyper tension; Mixed hyperlipi demia; Long-term use o f immunosuppressant medication; Complication of heart transplant, unspecified complication (HCC); Transplant reje ction; Therapeutic renata g monitoring; Chronic obstruc tive pulmonary disease, unspecified COPD type (HCC); Chronic fatigue ; Osteopenia dete rmined by x-ray; Metabolic syndr ome; Enlarged prosta te; Prostate cancer screening; Cytomegalovirus infection, unspecified cytomegaloviral infection type (HCC); Chest pain, uns pecified type; Subclinical hyp othyroidism; History of rece nt pneumonia Hospital Encounter Radiology Khalida Faulkner Heart t ransplanted (HCC); 0 MD Chronic kidney disease, stage V (HCC); Essential hyper tension; Mixed hyperlipi demia; Long-term use o f immunosuppressant medication; Complication of heart transplant, unspecified complication (HCC); Transplant reje ction; Therapeutic renata g monitoring; Chronic obstruc tive pulmonary disease, unspecified COPD type (HCC); Chronic fatigue ; Osteopenia dete rmined by x-ray; Metabolic syndr ome; Enlarged prosta te; Prostate cancer screening; Cytomegalovirus infection, unspecified cytomegaloviral infection type (HCC); Chest pain, uns pecified type; Subclinical hyp othyroidism; History of rece nt pneumonia Refill Endocrinology Kelsi, 0 Thu, [place] Refill Transplant Gallo, Med Refill 0 Edelmira, PEREZ Documentation Transplant Chase Roman, 0 RN Refill Transplant Bhimaraj, Med Refill 0 MD Yash Refill Transplant Bhimaraj, Med Refill 0 MD Yash Refill Cardiology Donald Epstein Med Refill 9 D.MD Refill Endocrinology Britney Maloney Uncontrolled diabetes 9 MD Hany mellitus type 2 without complic ations (HCC) Refill Transplant Bhimaraj, Med Refill 9 MD Yash Office Visit Neurology Raúl, Bilateral occip ital neuralgia (Primary Dx); Ariana Rojas Musculoskeletal neck pain; MD Jeniffer 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); Cerebral amyloi d angiopathy (CODE); History of isch emic left MCA stroke; Depression, uns pecified depression type; Anxiety; HAZEL (obstructiv e sleep apnea) Telephone Neurology Pablo, Ariana Swift MD Office Visit Neurology Pablo, 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) (Primary Dx); Ariana Rojas Cerebral amyloi d angiopathy (CODE); MD Jeniffer History of isch emic left MCA stroke; Depression, uns pecified depression type; Anxiety; HAZEL (obstructiv e sleep apnea); Multifactorial gait disorder; Diabetic polyne uropathy associated with type 2 diabetes mellitus (HCC); Physical decond itioning; Bilateral occip ital neuralgia; Musculoskeletal neck pain after 07/10/2019 Surgical History Surgery Date Site/Laterality Comments HEART TRANSPLANT 09/27/2006 - 10/27/2006 CHOLECYSTECTOMY 09/27/2012 - 09/26/2013 ESOPHAGOGASTRODUODENOSCOPY (EGD) 08/23/2017 N/A Procedure: EGD with Bx; Surgeon: Tang Spicer MD; Location: [facility]; Serv ice: Gastroenterology ; Laterality: N/A; CARDIAC CATHETERIZATION 11/17/2018 N/A Procedur e: Left heart cath w lv gram cors; Surgeon: Trevon Parikh MD; Location: [facility] Professor 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 Invasive Location; Service: Cardiology; Laterality: N/A; Year 12 Annual Left heart cath and poss ible PCI CORONARY ARTERY BYPASS GRAFT 1979, 1987 ABDOMINAL HERNIA REPAIR x 3 CATARACT EXTRACTION, BILATERAL COLONOSCOPY UPPER GASTROINTESTINAL ENDOSCOPY ESOPHAGOGASTRODUODENOSCOPY (EGD) 02/08/2020 N/A Procedure: EGD with biopsy ; Surgeo n: Greg Spicer MD; Location: [facility]; Serv ice: Gastroenterology ; Laterality: N/A; COLONOSCOPY 02/08/2020 N/A Procedure: COLONOSCOPY with polypectomy; Surgeon: Greg Spicer MD; Location: [facility]; Serv ice: Gastroenterology ; Laterality: N/A; Medical History Medical History Date Comments Hypertension HAZEL (obstructive sleep apnea) COPD (chronic obstructive pulmonary disease) 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 Type 2 diabetes mellitus Diabetic neuropathy Diabetic nephropathy (CKD stage 4) Ischemic cardiomyopathy status post heart transplant on 10/26 BPH (benign prostatic hyperplasia) Hyperlipidemia Ischemic stroke during heart transplantation 09/2006 Iron deficiency anemia TIA (transient ischemic attack) DVT (deep venous thrombosis) left leg Family History Medical History Relation Name Comments Heart disease Brother Heart disease Brother No Known Problems Brother 72 Hypertension Daughter 48 Colon cancer Daughter metastatic 42 Heart attack Father Heart disease Father 50 Diabetes Mother Heart disease Mother 62 Hypertension Sister 64 No Known Problems Son 37 Relation Name Status Comments Brother Brother Brother Alive Daughter Alive Daughter Alive Father Mother Sister Alive Son Alive Social History Tobacco Use Types Packs/Day Years Used Date Former Smoker 1 25 Quit: 1987 Smokeless Tobacco: Never Used Comments: used to smoke 1 ppd not since 1987 Alcohol Use Drinks/Week oz/Week Comments Yes 1 Standard drinks or equivalent 1.0 Alcohol Habits Answer Date Recorded How often do you have a drink containing alcohol? Not asked How many drinks containing alcohol do you have on a typical 1 or 2 04/11/2019 day when you are drinking? How often do you have six or more drinks on one occasion? No t asked Sex Assigned at Date Recorded Male 07/16/2019 10:46 AM CDT COVID-19 Exposure Response Date Recorded In the last month, have you been in contact with No / Unsure 07/09/2020 7:30 AM CDT someone who was confirmed or suspected to have Coronavirus / COVID-19? Last Filed Vital Signs Vital Sign Reading Time Taken Comments Blood Pressure 148/67 07/09/2020 7:55 Pt stated bp me ds AM CDT were taking Pulse 78 07/09/2020 7:55 AM CDT Temperature 36.4 C (97.6 F) 07/09/2020 7:55 AM CDT Respiratory Rate 17 07/09/2020 7:55 AM CDT Oxygen Saturation 97% 07/09/2020 7:55 AM CDT Inhaled Oxygen - - Concentration Weight 87.2 kg (192 lb 4.8 07/09/2020 7:55 oz) AM CDT Height 175.3 cm (5' 9") 07/09/2020 7:55 AM CDT Body Mass Index 28.4 07/09/2020 7:55 AM CDT Plan of Treatment Date Type Specialty Care Team Description 08/07/2020 Office Visit Neurology [facility], Porsha Swift MD [address] [place], [place] [address] [phone] Health Maintenance Due Date Last Done Comments COLONOSCOPY SCREENING 1993 SHINGLES VACCINES (#1) 1993 65+ PNEUMOCOCCAL VACCINE (1 of 1 - 2008 PPSV23) DIABETIC FOOT EXAM 12/08/2019 12/07/2018, 06/20/2018, 07/20/2017, Additional history exists INFLUENZA VACCINE 04/27/2020 DIABETIC RETINAL EYE EXAM 06/26/2021 06/26/2019, 06/13/2018 , 07/06/2017, Additional history exists Procedures Procedure Name Priority Date/Time Associated Diagnosis Comme nts ECG 12-LEAD Routine 07/09/2020 10:05 Heart transplanted AM CDT (HCC) Chronic kidney disease, stage V (HCC) Diabetes mellitus due to underlying condition with diabetic nephropathy, with long-term current use of insulin (HCC) Mixed hyperlipid emia Long-term use of immunosuppressant medication Essential hypert ension Complication of heart transplant, unspecified complication (HC C) Transplant rejec tion Therapeutic drug monitoring Chronic fatigue Osteopenia determined by x-ray Metabolic syndro me Enlarged prostat e Cytomegalovirus infection, 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 PROTEIN, URINE, RANDOM STAT 07/09/2020 8:09 Heart transpla nted Results for AM CDT ([facility]) this procedure Chronic kidney disease, are in the stage V (HCC) 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 CT HEAD WO CONTRAST Routine 05/30/2020 4:36 Acute nonintracta ble Results for PM CDT headache, unspecified this p rocedure headache type are in the results section. TROPONIN Routine 05/13/2020 11:11 Results for AM CDT this procedure are in the results section. ESTIMATED GFR STAT 05/13/2020 11:11 Results fo r AM CDT this procedure are in the results section. CREATININE LEVEL, STAT 05/13/2020 11:11 Heart transplanted Results for URINE, RANDOM AM CDT ([facility]) this procedure Chronic kidney disease, are in the stage V ([facility]) 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, with long-term current use of insulin (HCC) Mixed hyperlipid emia Long-term use of immunosuppressant medication Essential hypert ension Complication of heart transplant, unspecified complication (HC C) Transplant rejec tion Therapeutic drug monitoring Chronic fatigue Osteopenia determined by x-ray Metabolic syndro me Enlarged prostat e Cytomegalovirus infection, unspecified cytomegaloviral infection type ( HCC) Immunodeficiency due to termite inspector drug t herapy CRF (chronic renal failure), stage 3 (moderate) (HCC) Infection Hyperlipidemia associated with type 2 diabetes mellitu s (HCC) Hyperthyroidism THYROID STIMULATING STAT 05/13/2020 11:11 Heart transplante d Results for HORMONE AM CDT (HCC) this procedure Chronic kidney disease, are in the stage V (HCC) 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, with long-term current use of insulin (HCC) Mixed hyperlipid emia Long-term use of immunosuppressant medication Essential hypert ension Complication of heart transplant, unspecified complication (HC C) Transplant rejec tion Therapeutic drug monitoring Chronic fatigue Osteopenia determined by x-ray Metabolic syndro me Enlarged prostat e Cytomegalovirus infection, unspecified cytomegaloviral infection type ( HCC) Immunodeficiency due to custodial drug t herapy CRF (chronic renal failure), stage 3 (moderate) (HCC) Infection Hyperlipidemia associated with type 2 diabetes mellitu s (HCC) Hyperthyroidism CYTOMEGALOVIRUS BY PCR STAT 05/13/2020 11:11 Heart transpla nted Results for AM CDT ([facility]) this procedure Chronic kidney disease, are in the stage V (HCC) 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 PLATELET ESTIMATION Routine 05/02/2020 8:14 Resu lts for (NOT ORDERABLE) AM CDT this procedu re are in the results section. HEMOGLOBIN A1C Routine 05/02/2020 8:14 Results f or AM CDT this procedure are in the results section. THYROID STIMULATING Routine 05/02/2020 8:14 Resu lts for HORMONE AM CDT this procedure are in the results section. T4, FREE Routine 05/02/2020 8:14 Results for AM CDT this procedure are in the results section. ABN TEST REFUSAL Routine 05/02/2020 8:14 Results for AM CDT this procedure are in the results section. CBC WITH PLATELET AND Routine 05/02/2020 8:14 Re sults for DIFFERENTIAL AM CDT this procedure are in the results section. FRUCTOSAMINE Routine 05/02/2020 8:14 Results for AM CDT this procedure are in the results section. COMPREHENSIVE Routine 05/02/2020 8:14 Results fo r METABOLIC PANEL AM CDT this procedu re are in the results section. MICROALBUMIN / Routine 05/02/2020 8:14 Results f or CREATININE URINE RATIO AM CDT this procedure are in the results section. LIPID PANEL Routine 05/02/2020 8:14 Results for AM CDT this procedure are in the results section. NM GASTRIC EMPTYING Routine 02/28/2020 2:51 Early satiety Res ults for PM CDT this procedure are in the results section. NM GASTRIC EMPTYING Routine 02/21/2020 11:48 Early satiety Res ults for AM CDT this procedure are in the results section. SURGICAL PATHOLOGY Routine 02/08/2020 12:07 Resul ts for REQUEST PM CDT this procedure are in the results section. SURGICAL PATHOLOGY Routine 02/08/2020 12:07 Resul ts for REQUEST PM CDT this procedure are in the results section. POC GLUCOSE Routine 02/08/2020 11:35 Results for AM CDT this procedure are in the results section. 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 FK506 TACROLIMUS Routine 12/29/2019 8:49 Results for LEVEL, RANDOM AM CDT this procedure are in the results section. PLATELET ESTIMATION Routine 12/29/2019 8:49 Resu lts for (NOT ORDERABLE) AM CDT this procedu re are in the results section. CBC WITH PLATELET AND Routine 12/29/2019 8:49 Re sults for DIFFERENTIAL AM CDT this procedure are in the results section. COMPREHENSIVE Routine 12/29/2019 8:49 Results fo r METABOLIC PANEL AM CDT this procedu re are in the results section. MAGNESIUM LEVEL Routine 12/29/2019 8:49 Results for AM CDT this procedure are in the results section. ECG 12-LEAD Routine 11/07/2019 10:45 Heart transplanted Resul ts for AM 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 Mixed hyperlipid emia Long-term use of immunosuppressant medication Complication of heart transplant, unspecified complication (HC C) Transplant rejec tion Therapeutic drug monitoring Chronic obstructive pulmonary disease, unspecified COPD type (HCC) Chronic fatigue Osteopenia determined by x-ray Metabolic syndro me Enlarged prostat e Prostate cancer screening Cytomegalovirus infection, unspecified cytomegaloviral infection type ( HCC) Chest pain, unspecified type Subclinical hypothyroidism History of recent pneumonia BONE DENSITY Routine 11/07/2019 10:18 Heart transplanted Resul ts for AM 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 Mixed hyperlipid emia Long-term use of immunosuppressant medication Complication of heart transplant, unspecified complication (HC C) Transplant rejec tion Therapeutic drug monitoring Chronic obstructive pulmonary disease, unspecified COPD type (HCC) Chronic fatigue Osteopenia determined by x-ray Metabolic syndro me Enlarged prostat e Prostate cancer screening Cytomegalovirus infection, unspecified cytomegaloviral infection type ( HCC) Chest pain, unspecified type Subclinical hypothyroidism History of recent pneumonia BONE DENSITY Routine 11/07/2019 10:17 Heart transplanted Resul ts for PERIPHERAL AM 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 Mixed hyperlipid emia Long-term use of immunosuppressant medication Complication of heart transplant, unspecified complication (HC C) Transplant rejec tion Therapeutic drug monitoring Chronic obstructive pulmonary disease, unspecified COPD type (HCC) Chronic fatigue Osteopenia determined by x-ray Metabolic syndro me Enlarged prostat e Prostate cancer screening Cytomegalovirus infection, unspecified cytomegaloviral infection type ( HCC) Chest pain, unspecified type Subclinical hypothyroidism History of recent pneumonia TTE COMPLETE, WO Routine 11/02/2019 1:26 Heart transplanted R esults for CONTRAST, W DOPPLER PM RESIDENTIAL REMODELING SUBCONTRACTOR ([facility]) this procedure ([id number]) Chronic kidney disease, are in the stage V (HCC) results Essential hypert ension section. Mixed hyperlipid emia Long-term use of immunosuppressant medication Complication of heart transplant, unspecified complication (HC C) Transplant rejec tion Therapeutic drug monitoring Chronic obstructive pulmonary disease, unspecified COPD type (HCC) Chronic fatigue Osteopenia determined by x-ray Metabolic syndro me Enlarged prostat e Prostate cancer screening Cytomegalovirus infection, unspecified cytomegaloviral infection type ( HCC) Chest pain, unspecified type Subclinical hypothyroidism History of recent pneumonia CARDIAC PET MYOCARDIAL Routine 11/02/2019 12:33 Heart transpla nted PERFUSION IMAGING PM RESIDENTIAL REMODELING SUBCONTRACTOR ([facility]) Chronic kidney disease, stage V (HCC) Essential hypert ension Mixed hyperlipid emia Long-term use of immunosuppressant medication Complication of heart transplant, unspecified complication (HC C) Transplant rejec tion Therapeutic drug monitoring Chronic obstructive pulmonary disease, unspecified COPD type (HCC) Chronic fatigue Osteopenia determined by x-ray Metabolic syndro me Enlarged prostat e Prostate cancer screening Cytomegalovirus infection, unspecified cytomegaloviral infection type ( HCC) Chest pain, unspecified type Subclinical hypothyroidism History of recent pneumonia CV CARDIAC PET STRESS Routine 11/02/2019 12:33 Heart transplan karla Results for TEST PM RESIDENTIAL REMODELING SUBCONTRACTOR ([facility]) this procedure Chronic kidney disease, are in the stage V (HCC) results Essential hypert ension section. Mixed hyperlipid emia Long-term use of immunosuppressant medication Complication of heart transplant, unspecified complication (HC C) Transplant rejec tion Therapeutic drug monitoring Chronic obstructive pulmonary disease, unspecified COPD type (HCC) Chronic fatigue Osteopenia determined by x-ray Metabolic syndro me Enlarged prostat e Prostate cancer screening Cytomegalovirus infection, unspecified cytomegaloviral infection type ( HCC) Chest pain, unspecified type Subclinical hypothyroidism History of recent pneumonia US ABDOMEN COMPLETE Routine 11/02/2019 10:00 Heart transplante d Results for AM RESIDENTIAL REMODELING SUBCONTRACTOR ([facility]) this procedure Chronic kidney disease, are in the stage V (HCC) results Essential hypert ension section. Mixed hyperlipid emia Long-term use of immunosuppressant medication Complication of heart transplant, unspecified complication (HC C) Transplant rejec tion Therapeutic drug monitoring Chronic obstructive pulmonary disease, unspecified COPD type (HCC) Chronic fatigue Osteopenia determined by x-ray Metabolic syndro me Enlarged prostat e Prostate cancer screening Cytomegalovirus infection, unspecified cytomegaloviral infection type ( HCC) Chest pain, unspecified type Subclinical hypothyroidism History of recent pneumonia XR CHEST 2 VW Routine 11/02/2019 8:05 Heart transplanted Resu lts for AM 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 Mixed hyperlipid emia Long-term use of immunosuppressant medication Complication of heart transplant, unspecified complication (HC C) Transplant rejec tion Therapeutic drug monitoring Chronic obstructive pulmonary disease, unspecified COPD type (HCC) Chronic fatigue Osteopenia determined by x-ray Metabolic syndro me Enlarged prostat e Prostate cancer screening Cytomegalovirus infection, unspecified cytomegaloviral infection type ( HCC) Chest pain, unspecified type Subclinical hypothyroidism History of recent pneumonia DONOR SPECIFIC Routine 11/02/2019 7:00 Results f or ANTIBODY AM RESIDENTIAL REMODELING SUBCONTRACTOR this procedure are in the results section. ESTIMATED GFR Routine 11/02/2019 7:00 Results fo r AM RESIDENTIAL REMODELING SUBCONTRACTOR this procedure are in the results section. IGAM Routine 11/02/2019 7:00 Heart transplanted Resul ts for AM 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 Mixed hyperlipid emia Long-term use of immunosuppressant medication Complication of heart transplant, unspecified complication (HC C) Transplant rejec tion Therapeutic drug monitoring Chronic obstructive pulmonary disease, unspecified COPD type (HCC) Chronic fatigue Osteopenia determined by x-ray Metabolic syndro me Enlarged prostat e Prostate cancer screening Cytomegalovirus infection, unspecified cytomegaloviral infection type ( HCC) Chest pain, unspecified type Subclinical hypothyroidism History of recent pneumonia CYTOMEGALOVIRUS BY PCR Routine 11/02/2019 7:00 Heart transpla nted Results for AM 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 Mixed hyperlipid emia Long-term use of immunosuppressant medication Complication of heart transplant, unspecified complication (HC C) Transplant rejec tion Therapeutic drug monitoring Chronic obstructive pulmonary disease, unspecified COPD type (HCC) Chronic fatigue Osteopenia determined by x-ray Metabolic syndro me Enlarged prostat e Prostate cancer screening Cytomegalovirus infection, unspecified cytomegaloviral infection type ( HCC) Chest pain, unspecified type Subclinical hypothyroidism History of recent pneumonia TESTOSTERONE Routine 11/02/2019 7:00 Heart transplanted Resul ts for AM 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 Mixed hyperlipid emia Long-term use of immunosuppressant medication Complication of heart transplant, unspecified complication (HC C) Transplant rejec tion Therapeutic drug monitoring Chronic obstructive pulmonary disease, unspecified COPD type (HCC) Chronic fatigue Osteopenia determined by x-ray Metabolic syndro me Enlarged prostat e Prostate cancer screening Cytomegalovirus infection, unspecified cytomegaloviral infection type ( HCC) Chest pain, unspecified type Subclinical hypothyroidism History of recent pneumonia PROSTATE SPECIFIC Routine 11/02/2019 7:00 Heart transplanted Results for ANTIGEN AM 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 Mixed hyperlipid emia Long-term use of immunosuppressant medication Complication of heart transplant, unspecified complication (HC C) Transplant rejec tion Therapeutic drug monitoring Chronic obstructive pulmonary disease, unspecified COPD type (HCC) Chronic fatigue Osteopenia determined by x-ray Metabolic syndro me Enlarged prostat e Prostate cancer screening Cytomegalovirus infection, unspecified cytomegaloviral infection type ( HCC) Chest pain, unspecified type Subclinical hypothyroidism History of recent pneumonia TROPONIN Routine 11/02/2019 7:00 Heart transplanted Resul ts for AM 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 Mixed hyperlipid emia Long-term use of immunosuppressant medication Complication of heart transplant, unspecified complication (HC C) Transplant rejec tion Therapeutic drug monitoring Chronic obstructive pulmonary disease, unspecified COPD type (HCC) Chronic fatigue Osteopenia determined by x-ray Metabolic syndro me Enlarged prostat e Prostate cancer screening Cytomegalovirus infection, unspecified cytomegaloviral infection type ( HCC) Chest pain, unspecified type Subclinical hypothyroidism History of recent pneumonia FK506 TACROLIMUS Routine 11/02/2019 7:00 Heart transplanted R esults for LEVEL, RANDOM AM 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 Mixed hyperlipid emia Long-term use of immunosuppressant medication Complication of heart transplant, unspecified complication (HC C) Transplant rejec tion Therapeutic drug monitoring Chronic obstructive pulmonary disease, unspecified COPD type (HCC) Chronic fatigue Osteopenia determined by x-ray Metabolic syndro me Enlarged prostat e Prostate cancer screening Cytomegalovirus infection, unspecified cytomegaloviral infection type ( HCC) Chest pain, unspecified type Subclinical hypothyroidism History of recent pneumonia B NATRIURETIC PEPTIDE Routine 11/02/2019 7:00 Heart transplan karla Results for AM 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 Mixed hyperlipid emia Long-term use of immunosuppressant medication Complication of heart transplant, unspecified complication (HC C) Transplant rejec tion Therapeutic drug monitoring Chronic obstructive pulmonary disease, unspecified COPD type (HCC) Chronic fatigue Osteopenia determined by x-ray Metabolic syndro me Enlarged prostat e Prostate cancer screening Cytomegalovirus infection, unspecified cytomegaloviral infection type ( HCC) Chest pain, unspecified type Subclinical hypothyroidism History of recent pneumonia URINALYSIS SCREEN AND Routine 11/02/2019 7:00 Heart transplan karla Results for MICROSCOPY, WITH AM RESIDENTIAL REMODELING SUBCONTRACTOR (HCC) this procedure REFLEX TO CULTURE Chronic kidney disease, are in the stage V (HCC) results Essential hypert ension section. Mixed hyperlipid emia Long-term use of immunosuppressant medication Complication of heart transplant, unspecified complication (HC C) Transplant rejec tion Therapeutic drug monitoring Chronic obstructive pulmonary disease, unspecified COPD type (HCC) Chronic fatigue Osteopenia determined by x-ray Metabolic syndro me Enlarged prostat e Prostate cancer screening Cytomegalovirus infection, unspecified cytomegaloviral infection type ( HCC) Chest pain, unspecified type Subclinical hypothyroidism History of recent pneumonia LDH Routine 11/02/2019 7:00 Heart transplanted Resul ts for AM 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 Mixed hyperlipid emia Long-term use of immunosuppressant medication Complication of heart transplant, unspecified complication (HC C) Transplant rejec tion Therapeutic drug monitoring Chronic obstructive pulmonary disease, unspecified COPD type (HCC) Chronic fatigue Osteopenia determined by x-ray Metabolic syndro me Enlarged prostat e Prostate cancer screening Cytomegalovirus infection, unspecified cytomegaloviral infection type ( HCC) Chest pain, unspecified type Subclinical hypothyroidism History of recent pneumonia URIC ACID LEVEL Routine 11/02/2019 7:00 Heart transplanted Re sults for AM 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 Mixed hyperlipid emia Long-term use of immunosuppressant medication Complication of heart transplant, unspecified complication (HC C) Transplant rejec tion Therapeutic drug monitoring Chronic obstructive pulmonary disease, unspecified COPD type (HCC) Chronic fatigue Osteopenia determined by x-ray Metabolic syndro me Enlarged prostat e Prostate cancer screening Cytomegalovirus infection, unspecified cytomegaloviral infection type ( HCC) Chest pain, unspecified type Subclinical hypothyroidism History of recent pneumonia THYROID STIMULATING Routine 11/02/2019 7:00 Heart transplante d Results for HORMONE AM 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 Mixed hyperlipid emia Long-term use of immunosuppressant medication Complication of heart transplant, unspecified complication (HC C) Transplant rejec tion Therapeutic drug monitoring Chronic obstructive pulmonary disease, unspecified COPD type (HCC) Chronic fatigue Osteopenia determined by x-ray Metabolic syndro me Enlarged prostat e Prostate cancer screening Cytomegalovirus infection, unspecified cytomegaloviral infection type ( HCC) Chest pain, unspecified type Subclinical hypothyroidism History of recent pneumonia T4 Routine 11/02/2019 7:00 Heart transplanted Resul ts for AM 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 Mixed hyperlipid emia Long-term use of immunosuppressant medication Complication of heart transplant, unspecified complication (HC C) Transplant rejec tion Therapeutic drug monitoring Chronic obstructive pulmonary disease, unspecified COPD type (HCC) Chronic fatigue Osteopenia determined by x-ray Metabolic syndro me Enlarged prostat e Prostate cancer screening Cytomegalovirus infection, unspecified cytomegaloviral infection type ( HCC) Chest pain, unspecified type Subclinical hypothyroidism History of recent pneumonia T3 Routine 11/02/2019 7:00 Heart transplanted Resul ts for AM 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 Mixed hyperlipid emia Long-term use of immunosuppressant medication Complication of heart transplant, unspecified complication (HC C) Transplant rejec tion Therapeutic drug monitoring Chronic obstructive pulmonary disease, unspecified COPD type (HCC) Chronic fatigue Osteopenia determined by x-ray Metabolic syndro me Enlarged prostat e Prostate cancer screening Cytomegalovirus infection, unspecified cytomegaloviral infection type ( HCC) Chest pain, unspecified type Subclinical hypothyroidism History of recent pneumonia PARATHYROID HORMONE Routine 11/02/2019 7:00 Heart transplante d Results for AM 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 Mixed hyperlipid emia Long-term use of immunosuppressant medication Complication of heart transplant, unspecified complication (HC C) Transplant rejec tion Therapeutic drug monitoring Chronic obstructive pulmonary disease, unspecified COPD type (HCC) Chronic fatigue Osteopenia determined by x-ray Metabolic syndro me Enlarged prostat e Prostate cancer screening Cytomegalovirus infection, unspecified cytomegaloviral infection type ( HCC) Chest pain, unspecified type Subclinical hypothyroidism History of recent pneumonia IONIZED CALCIUM Routine 11/02/2019 7:00 Heart transplanted Re sults for AM 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 Mixed hyperlipid emia Long-term use of immunosuppressant medication Complication of heart transplant, unspecified complication (HC C) Transplant rejec tion Therapeutic drug monitoring Chronic obstructive pulmonary disease, unspecified COPD type (HCC) Chronic fatigue Osteopenia determined by x-ray Metabolic syndro me Enlarged prostat e Prostate cancer screening Cytomegalovirus infection, unspecified cytomegaloviral infection type ( HCC) Chest pain, unspecified type Subclinical hypothyroidism History of recent pneumonia HEMOGLOBIN A1C Routine 11/02/2019 7:00 Heart transplanted Res ults for AM 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 Mixed hyperlipid emia Long-term use of immunosuppressant medication Complication of heart transplant, unspecified complication (HC C) Transplant rejec tion Therapeutic drug monitoring Chronic obstructive pulmonary disease, unspecified COPD type (HCC) Chronic fatigue Osteopenia determined by x-ray Metabolic syndro me Enlarged prostat e Prostate cancer screening Cytomegalovirus infection, unspecified cytomegaloviral infection type ( HCC) Chest pain, unspecified type Subclinical hypothyroidism History of recent pneumonia LIPID PANEL Routine 11/02/2019 7:00 Heart transplanted Resul ts for AM 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 Mixed hyperlipid emia Long-term use of immunosuppressant medication Complication of heart transplant, unspecified complication (HC C) Transplant rejec tion Therapeutic drug monitoring Chronic obstructive pulmonary disease, unspecified COPD type (HCC) Chronic fatigue Osteopenia determined by x-ray Metabolic syndro me Enlarged prostat e Prostate cancer screening Cytomegalovirus infection, unspecified cytomegaloviral infection type ( HCC) Chest pain, unspecified type Subclinical hypothyroidism History of recent pneumonia HEPATIC FUNCTION PANEL Routine 11/02/2019 7:00 Heart transpla nted Results for AM 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 Mixed hyperlipid emia Long-term use of immunosuppressant medication Complication of heart transplant, unspecified complication (HC C) Transplant rejec tion Therapeutic drug monitoring Chronic obstructive pulmonary disease, unspecified COPD type (HCC) Chronic fatigue Osteopenia determined by x-ray Metabolic syndro me Enlarged prostat e Prostate cancer screening Cytomegalovirus infection, unspecified cytomegaloviral infection type ( HCC) Chest pain, unspecified type Subclinical hypothyroidism History of recent pneumonia MAGNESIUM LEVEL Routine 11/02/2019 7:00 Heart transplanted Re sults for AM 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 Mixed hyperlipid emia Long-term use of immunosuppressant medication Complication of heart transplant, unspecified complication (HC C) Transplant rejec tion Therapeutic drug monitoring Chronic obstructive pulmonary disease, unspecified COPD type (HCC) Chronic fatigue Osteopenia determined by x-ray Metabolic syndro me Enlarged prostat e Prostate cancer screening Cytomegalovirus infection, unspecified cytomegaloviral infection type ( HCC) Chest pain, unspecified type Subclinical hypothyroidism History of recent pneumonia PHOSPHORUS LEVEL Routine 11/02/2019 7:00 Heart transplanted R esults for AM 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 Mixed hyperlipid emia Long-term use of immunosuppressant medication Complication of heart transplant, unspecified complication (HC C) Transplant rejec tion Therapeutic drug monitoring Chronic obstructive pulmonary disease, unspecified COPD type (HCC) Chronic fatigue Osteopenia determined by x-ray Metabolic syndro me Enlarged prostat e Prostate cancer screening Cytomegalovirus infection, unspecified cytomegaloviral infection type ( HCC) Chest pain, unspecified type Subclinical hypothyroidism History of recent pneumonia HC COMPLETE BLD COUNT Routine 11/02/2019 7:00 Heart transplan karla Results for W/AUTO DIFF AM 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 Mixed hyperlipid emia Long-term use of immunosuppressant medication Complication of heart transplant, unspecified complication (HC C) Transplant rejec tion Therapeutic drug monitoring Chronic obstructive pulmonary disease, unspecified COPD type (HCC) Chronic fatigue Osteopenia determined by x-ray Metabolic syndro me Enlarged prostat e Prostate cancer screening Cytomegalovirus infection, unspecified cytomegaloviral infection type ( HCC) Chest pain, unspecified type Subclinical hypothyroidism History of recent pneumonia BASIC METABOLIC PANEL Routine 11/02/2019 7:00 Heart transplan karla Results for AM 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 Mixed hyperlipid emia Long-term use of immunosuppressant medication Complication of heart transplant, unspecified complication (HC C) Transplant rejec tion Therapeutic drug monitoring Chronic obstructive pulmonary disease, unspecified COPD type (HCC) Chronic fatigue Osteopenia determined by x-ray Metabolic syndro me Enlarged prostat e Prostate cancer screening Cytomegalovirus infection, unspecified cytomegaloviral infection type ( HCC) Chest pain, unspecified type Subclinical hypothyroidism History of recent pneumonia URINE CULTURE Routine 11/02/2019 7:00 Results fo r AM RESIDENTIAL REMODELING SUBCONTRACTOR this procedure are in the results section. after 07/10/2019 Results Urinalysis screen and microscopy, with reflex to culture (07/09/2020 8:09 AM CDT)Only the most recent of3 resultswithin the time period is included. Specimen site Clean catch [facility] Color, UA Straw [facility] Appearance, UA Clear [facility] Specific gravity, UA 1.015 1.001 - 1.035 [facility] pH, UA 7.0 5.0 - 8.5 [facility] Protein, UA 2+ (A) Negative [facility] Glucose, UA Negative Negative [facility] Ketones, UA Negative Negative [facility] Bilirubin, UA Negative Negative [facility] Blood, UA Negative Negative [facility] Nitrite, UA Negative Negative [facility] Urobilinogen, UA <2.0 <2.0 [facility] Leukocyte esterase, Negative Negative [facility] Epithelial cells, UA 1 /HPF [facility] WBC, UA <1 0 - 1 /HPF [facility] RBC, UA 1 0 - 5 /HPF [facility] Bacteria, UA None seen None seen [facility] Yeast, UA None seen [facility] Yeast with None seen [facility] pseudohyphae, [facility] Hyaline casts, UA 1 /LPF [facility] Specimen Urine Performing Organization Address City/State/ZIP Code Phon e Number [facility] DEPARTMENT OF PATHOLOGY AND [address] [place], [place] [address] [facility]INE [address] [address] Estimated GFR (07/09/2020 8:09 AM CDT)Only the most recent of3 resultswithin the time period is included. Estimated GFR 36 (A) mL/min/1.73 [facility] Comment: HOSPITAL Catergory Units Interpretation G1 >=90 Normal or high G2 60-89 Mildly decreased G3a 45-59 Mildly to moderately decreas ed G3b 30-44 Moderately to severely decre ased G4 15-29 Severely decreased G5 <15 Kidney failure The eGFR was calculated using the Chronic Kidney Disea se Epidemiology Collaboration (CKD-EPI) equation. Interpretation is based on recommendations of the National Kidney Foundation-Kidney Disease Outcomes Pool lity Initiative (NKF-KDOQI) published in 2014. Specimen Performing Organization Address [facility] Phon e Number [facility] DEPARTMENT OF PATHOLOGY AND [address] [place] [phone] IGAM (07/09/2020 8:09 AM CDT)Only the most recent of3 resultswithin the time period is included. Pathologist Sig nature IgG 882 700 - 1,600 mg/dL [facility] KIM IgA 110 70 - 400 mg/dL [facility] IgM 191 33 - 255 mg/dL [facility] Specimen Blood Performing Organization Address [facility] Phon e Number [facility] DEPARTMENT OF PATHOLOGY AND [address] [place] [id number] Tacrolimus level, random (07/09/2020 8:09 AM CDT)Only the most recent of4 resultswithin the time period is included. FK506 level <2.0 ng/mL [facility] Comment: HOSPITAL Therapeutic range 5-20 ng/mL for 12 hour trough. The r renu varies depending on the organ transplanted, time after transplantation and co-administered immunosuppressant therapies. Please use clinical judgment to interpret test result. Test performed using Carter Model Technician chemiluminescent microparticle immunoassay for Tacrolimus on the Signifyd i System. Specimen Blood Performing Organization Address City/[facility]/ZIP [facility] Phon e Number [facility] DEPARTMENT OF PATHOLOGY AND [address] [place], [place] [id number] [place] [address] Troponin (07/09/2020 8:09 AM CDT)Only the most recent of3 resultswithin the time period is included. Troponin <0.006 0.000 - 0.040 [facility] Comment: ng/mL HOSPITAL In patients suspected of having a myocardial infarctio n, along with all other appropriate clinical measures and actions includ ing ECG and other diagnostics as appropriate, measure Ultra TnI at 0 hrs and at 3 hrs. Myocardial infarction VERY LIKELY The 0 hr TnI level is > 0.10 ng/mL Myocardial infarction LIKELY The 0 hr TnI level is > 0.04 ng/mL and 3 hr level is i ncreased or decreased by at least 0.020 ng/mL Myocardial infarction VERY UNLIKELY Both the 0 hr and 3 hr TnI levels <= 0.04 ng/mL(within normal limits) OR 0 hr is > 0.04 ng/mL and 3 hr is increased OR decreased by less than 0.020 ng/mL Specimen Blood Performing Organization Address City/State/[facility] Phon e Number [facility] DEPARTMENT OF PATHOLOGY AND [address] [place] [address] [phone] [address] Protein, urine, random (07/09/2020 8:09 AM CDT)Only the most recent of2 results within the time period is included. Pathologist Sig nature Protein, urine random 54 mg/dL [facility] Specimen Urine Performing Organization Address City/[facility] Phon e Number [facility] DEPARTMENT OF PATHOLOGY AND [address] [place], [place] [phone] 0 [facility] [address] [place] [address] Prothrombin time with INR (07/09/2020 8:09 AM CDT)Only the most recent of2 resultswithin the time period is included. [facility] Prothrombin time 15.0 (H) 11.5 - 14.5 [facility] INR 1.2 [facility] Comment: [facility] International Normalized Ratio (INR) is a [facility] HOSPITAL monitoring tool for patients who are stable on oral anticoagulant therapy. An INR of 2.0-3.0 is suggested for deep vein thrombosis/pulmonary embolism. Specimen Blood Performing Organization Address City/State/ZIP Code Phon e Number [facility] DEPARTMENT OF PATHOLOGY AND [address] [place] [phone] 0 [facility] [address] [place] [address] CBC with platelet and differential (07/09/2020 8:09 AM CDT)Only the most recent of5 resultswithin the time period is included. [facility] WBC 5.31 4.50 - 11.00 [facility] k/uL [facility] RBC 3.89 (L) 4.40 - 6.00 [facility] HGB 12.3 (L) 14.0 - 18.0 [facility] g/dL [facility] HCT 38.8 (L) 41.0 - 51.0 % [facility] MCV 99.7 82.0 - 100.0 [facility] MCH 31.6 27.0 - 34.0 pg [facility] MCHC 31.7 31.0 - 37.0 [facility] RDW - SD 52.3 37.0 - 55.0 fL [facility] MPV 10.9 8.8 - 13.2 [facility] Platelet count 138 (L) 150 - 400 k/uL [facility] Nucleated RBC 0.00 /100 WBC [facility] Neutrophils 61.2 39.0 - 69.0 % [facility] Lymphocytes 25.0 25.0 - 45.0 % [facility] Monocytes 11.7 (H) 0.0 - 10.0 % [facility] Eosinophils 1.3 0.0 - 5.0 % [facility] Basophils 0.4 0.0 - 1.0 % [facility] Immature granulocytes 0.4Comment: 0.0 - 1.0 % [facility] "Immature HOSPITAL granulocytes" (promyelocytes , myelocytes, metamyelocytes ) Specimen Blood Performing Organization Address City/[facility] Phon e Number [facility] DEPARTMENT OF PATHOLOGY AND [address] [place] [address] [phone] [address] Urine culture (07/09/2020 8:09 AM CDT)Only the most recent of3 resultswithin the time period is included. Pathologist Sig nature Urine culture SEE COMMENTComment: [facility] Bacteriuria screen HOSPITAL negative. Specimen Performing Organization Address [facility] Phon e Number [facility] DEPARTMENT OF PATHOLOGY AND [address] [place] [phone] Uric acid level (07/09/2020 8:09 AM CDT)Only the most recent of3 resultswithin the time period is included. Pathologist Sig nature Uric acid 5.7 3.4 - 7.0 mg/dL [facility] Specimen Blood Performing Organization Address [facility] Phon e Number [facility] DEPARTMENT OF PATHOLOGY AND [address] [place] [phone] B natriuretic peptide (07/09/2020 8:09 AM CDT)Only the most recent of3 results within the time period is included. Pathologist Sig nature BNP 206 (H) 0 - 100 pg/mL [facility] Specimen Blood Performing Organization Address City/[facility] Phon e Number [facility] DEPARTMENT OF PATHOLOGY AND [address] [place] [address] [phone] [address] Magnesium level (07/09/2020 8:09 AM CDT)Only the most recent of4 resultswithin the time period is included. Pathologist Sig nature Magnesium 2.0 1.6 - 2.4 mg/dL [facility] Specimen Blood Performing Organization Address City/[facility] Phon e Number [facility] DEPARTMENT OF PATHOLOGY AND [address] [place] [phone] [facility] [address] [place] [address] LDH (07/09/2020 8:09 AM CDT)Only the most recent of2 resultswithin the time period is included. Pathologist Sig nature LDH 195 87 - 225 U/L [facility] Specimen Blood Performing Organization Address [facility] Phon e Number [facility] DEPARTMENT OF PATHOLOGY AND [address] [place] [phone] [facility] [address] [place] [address] Lipid panel (07/09/2020 8:09 AM CDT)Only the most recent of4 resultswithin the time period is included. Cholesterol 154 <200 mg/dL [facility] Triglycerides 87 <150 mg/dL [facility] HDL cholesterol 49 >40 mg/dL [facility] LDL cholesterol 100 (H)Comment: <100 mg/dL [facility] Result obtained by [facility] measurement Lipid panel [facility] interpretation Comment: [facility] Total Cholesterol (mg/dL) HOSPIT AL <200 Desirable 200-239 Borderline-high >=240 High Triglycerides (mg/dL) <150 Normal 150-199 Borderline-high 200-499 High >=500 Very high HDL Cholesterol (mg/dL) <40 Low (male) <40 Low (female) LDL Cholesterol (mg/dL) <100 Optimal 100-129 Near or above optimal 130-159 Borderline-high 160-189 High >=190 Very high Risk Catergories that modify LDL goals. Risk Catergories LDL goal (mg/d L) CHD and CHD risk equivalent <100 (10-year risk >20%) Multiple (2+) risk factors <130 (10-year risk =<20%) 0-1 risk factors <160 (<10-year risk) Defining levels of lipids in metabolic syndrome Triglycerides >=150 mg/dL HDL Cholesterol Men <40 mg /dL Women <40 mg/ dL Non-HDL cholesterol is a second target for therapy in persons with high triglycerides (>=200 mg/dL) Specimen Blood Performing Organization Address [facility] Phon e Number [facility] DEPARTMENT OF PATHOLOGY AND [address] [place] [phone] [facility] [address] [place] [address] Comprehensive metabolic panel (07/09/2020 8:09 AM CDT)Only the most recent of4 resultswithin the time period is included. Sodium 146 135 - 148 [facility] mEq/L [facility] Potassium 4.5 3.5 - 5.0 [facility] mEq/L [facility] Chloride 102 98 - 112 [facility] mEq/L [facility] CO2 29 24 - 31 mEq/L [facility] Anion gap 15@ANIO 7 - 15 mEq/L [facility] BUN 30 (H) 8 - 23 mg/dL [facility] Creatinine 1.78 (H) 0.70 - 1.20 [facility] mg/dL [facility] Glucose 132 (H) 65 - 99 mg/dL [facility] Calcium 9.8 8.8 - 10.2 [facility] mg/dL [facility] Protein 6.9 6.3 - 8.3 [facility] Comment: g/dL HOSPITAL - 4.6-7.0 g/dL 1 week 4.4-7.6 g/dL 7 months-1year 5.1-7.3 g/dL 1-2 years 5.6-7.5 g/dL >3 years 6.0-8.0 g/dL 18-150 6.3-8.3 g/dL Albumin 3.4 (L) 3.5 - 5.0 [facility] g/dL [facility] A/G ratio 1.0 0.7 - 3.8 [facility] Alkaline phosphatase 66 40 - 129 U/L [facility] AST 21 10 - 50 U/L [facility] ALT 17 5 - 50 U/L [facility] Total bilirubin 0.3 0.0 - 1.2 [facility] mg/dL HOSPITAL Specimen Blood Performing Organization Address City/State/ZIP Code Phon e Number [facility] DEPARTMENT OF PATHOLOGY AND [address] [place], [place] [address] GENOMIC MEDICINE [address] [address] [address] Head Wo Contrast (05/30/2020 4:36 PM CDT) Specimen Narrative Performed At EXAMINATION: CT HEAD WO CONTRAST [facility] CLINICAL HISTORY: R51 Headache, Headac he status post fall COMPARISON: Head CT January 16, 2019. TECHNIQUE: Noncontrast head CT performed using radiati on dose reduction techniques. Technical factors are evaluated and adju sted to ensure appropriate moderation of exposure. Automated dose m anagement technology is applied to adjust radiatio n exposure while achieving a diagnostic quality vitaliy ge. FINDINGS: No evidence of acute intracranial hemorrhage, mass, ma ss effect, midline shift, or acute infarct. Chronic focus of encephalomalacia within the left fron kim perirolandic region, left parietal lobe, and left occipital lobe ab out the temporal occipital gyrus.. Global cortical involutional changes are present. Vent ricles and sulci are normal in appearance for patient's age. Bilateral periventricular and supraventricular white matter hypodensities that a re nonspecific however likely related to microvascular ischemia. Basal cisterns are clear. Calv arium is intact. Orbits are normal in appearance. No significant parana minerva sinus mucosal thickening. Mastoid air cells are clear. IMPRESSION: 1. No CT evidence of acute intracranial abnormality. 2. Mildly advanced global cortical involutional and wh ite matter microvascular ischemic changes. 3. 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 [id number] Procedure Note Hm Interface, Radiology Results Incoming - 05/30/2020 4:46 PM CDT EXAMINATION: CT HEAD WO CONTRAST CLINICAL HISTORY: R51 Headache, Headach e status post fall COMPARISON: Head CT January 16, 2019. TECHNIQUE: Noncontrast head CT performed using radiation dose reduction techniques. Technical factors are evaluated and adjusted to ensure appropriate moderation of exposure. Automated dose management technology is applied to adjust radiation exposure while achieving a diagnostic quality vitaliy ge. FINDINGS: No evidence of acute intracranial hemorr manuel, mass, mass effect, midline shift, or acute infarct. Chronic focus of encephalomalacia within the left frontal perirolandic region, left parietal lobe, and left occipital lobe about the temporal occipital gyrus.. Global cortical involutional changes are present. Ventricles and sulci are normal in appearance for patient's age. Bilateral periventricular and supraventricular white matter hypodensities that are nonspecific however likely related to microvascular ischemia. Basal cisterns are clear. Calv arium is intact. Orbits are normal in appearance. No sign ificant paranasal sinus mucosal thickening. Mastoid air cells are clear. IMPRESSION: 1. No CT evidence of acute intracranial abnormality. 2. Mildly advanced global cortical invol utional and white matter microvascular ischemic changes. 3. 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 [id number] Performing Organization Address City/[facility] Phon e Number [facility] [address] [place] [phone] Cytomegalovirus by PCR (05/13/2020 11:11 AM CDT)Only the most recent of2 results within the time period is included. Cytomegalovirus by PCR Not-Detected Not-Detected [facility] IU/mL HOSPITAL Cytomegalovirus by PCR See link [facility] below for [facility] Lab ReportComment : Specimen Performing Organization Address [facility] Phon e Number [facility] DEPARTMENT OF PATHOLOGY AND [address] [place] [address] Creatinine level, urine, random (05/13/2020 11:11 AM CDT) Pathologist Sig [facility] Creatinine, urine, 61 mg/dL [facility] Specimen Urine Performing Organization Address [facility] Phon e Number [facility] DEPARTMENT OF PATHOLOGY AND [address] [place] [address] Thyroid stimulating hormone (05/13/2020 11:11 AM CDT)Only the most recent of3 resultswithin the time period is included. Pathologist Sig [facility] TSH 3.15 0.27 - 4.20 uIU/mL [facility] Specimen Blood Performing Organization Address [facility] Phon e Number [facility] DEPARTMENT OF PATHOLOGY AND [address] [place] [address] [address] Parathyroid hormone (05/13/2020 11:11 AM CDT)Only the most recent of2 results within the time period is included. Pathologist Sig nature PTH 124 (H) 15 - 65 pg/mL [facility] Specimen Blood Performing Organization Address [facility] Phon e Number [facility] DEPARTMENT OF PATHOLOGY AND [address] [place], [place] [address] [address] [place] [phone] Platelet estimation (05/02/2020 8:14 AM CDT)Only the most recent of2 results within the time period is included. Pathologist Sig nature Platelet estimate DECREASED (A) [facility] [place] Specimen Narrative Performed At FASTING:YES NADYA PATIENT REFUSED SOME TESTING; PATIENT EN COURAGED TO RETURN. FASTING: YES Resulting Agency Comment Performing Organization Information: Site ID: CHIOMA Name: [employer] [facility] Address: [address] [place] [phone] Director: Matthew Aguirre Performing Organization Address [facility] Phon e Number NADYA [facility] [place] [address] [place] [address] ABN TEST REFUSAL (05/02/2020 8:14 AM CDT) [facility] Comment: [place] Be advised that your patient has indicated on the advance beneficiary notice their decision not to receive the following laboratory tests. As a result, the tests will not be performed. ABN test refused [phone] NADYA TEJEDA [place] Specimen Narrative Performed At FASTING:YES NADYA PATIENT REFUSED SOME TESTING; PATIENT EN COURAGED TO RETURN. FASTING: YES Resulting Agency Comment Performing Organization Information: Site ID: CHIOMA Name: [employer] [facility] Address: [address] [place] [phone] Director: Matthew Aguirre Performing Organization Address [facility] Phon e Number NADYA [place] [address] Microalbumin / creatinine urine ratio (05/02/2020 8:14 AM CDT) Creatinine, 82 20 - 320 [facility] urine, random mg/dL [place] Microalbumin, 22.1 See Note: [facility] urine Comment: mg/dL [place] Reference Range: Reference Range Not established Microalbumin/cre 270 (H) <30 mcg/mg [facility] atinine ratio Comment: creat HERNANDEZ The ADA defines abnormalities in albumin excretion as follows: Category Result (mcg/mg creatinine) Normal <30 Microalbuminuria 30-299 Clinical albuminuria > OR = 300 The ADA recommends that at least two of three specimens collected within a 3-6 month period be abnormal before considering a patient to be within a diagnostic category. Specimen Narrative Performed At FASTING:YES NADYA PATIENT REFUSED SOME TESTING; PATIENT EN COURAGED TO RETURN. FASTING: YES Resulting Agency Comment Performing Organization Information: Site ID: CHIOMA Name: [facility] Address: [address] [place] [phone] Director: Matthew Aguirre Performing Organization Address [facility] Phon e Number [facility] [place] [address] Fructosamine (05/02/2020 8:14 AM CDT) Pathologist Sig nature Fructosamine 290 (H) 205 - 285 umol/L [facility] Specimen Narrative Performed At FASTING:YES [facility] PATIENT REFUSED SOME TESTING; PATIENT EN COURAGED TO RETURN. FASTING: YES Resulting Agency Comment Performing Organization Information: Site ID: EZ Name: [facility], Address: [address] [place] [phone] Director: Vianey Barnard MD,PhD,MB A Performing Organization Address [facility] Phon e Number [facility] [address] [place] [address] [facility] [address] T4, free (05/02/2020 8:14 AM CDT) Pathologist Sig nature T4, free 0.9 0.8 - 1.8 ng/dL [facility] [place] Specimen Narrative Performed At FASTING:YES [facility] PATIENT REFUSED SOME TESTING; PATIENT EN COURAGED TO RETURN. FASTING: YES Resulting Agency Comment Performing Organization Information: Site ID: RGA Name: [employer] [facility] Address: [address] [place] [phone] Director: Matthew Aguirre Performing Organization Address [facility] Phon e Number [facility] [place] [address] Hemoglobin A1c (05/02/2020 8:14 AM CDT)Only the most recent of2 resultswithin the time period is included. Hemoglobin A1C 7.3 (H) <5.7 % of [facility] Comment: total Hgb [place] For someone without known diabetes, a hemoglobin A1c value of 6.5% or greater indicates that they may have diabetes and this should be confirmed with a follow-up test. For someone with known diabetes, a value <7% indicates that their diabetes is well controlled and a value greater than or equal to 7% indicates suboptimal control. A1c targets should be individualized based on duration of diabetes, age, comorbid conditions, and other considerations. Currently, no consensus exists regarding use of hemoglobin A1c for diagnosis of diabetes for children. Specimen Narrative Performed At FASTING:YES [facility] PATIENT REFUSED SOME TESTING; PATIENT EN COURAGED TO RETURN. FASTING: YES Resulting Agency Comment Performing Organization Information: Site ID: RGA Name: [facility] Address: [address] [place] [phone] Director: Matthew Aguirre Performing Organization Address City/State/ZIP Code Phon e Number [facility] [place] [address] [place] [address] [place] Gastric Emptying (02/28/2020 2:51 PM CDT)Only the most recent of2 results within the time period is included. Specimen Narrative Performed At PROCEDURE: NM GASTRIC EMPTYING [facility] INDICATION: R68.81 Early satiety, Please perform 4 quin r study only-do not perform 90 mins study. Comparison: Very recent gastric emptying study of 02/21/2020 TECHNIQUE: 1 millicurie of [id number] colloid were mixed with an egg and cooked. The egg was fed to the patient and dynamic imaging of the abdomen in the anterior and posterior projections was performed for 90 minutes. Quantification of gastric emptying was performed using the geometric mean of the anterior and posterior projections. FINDINGS: The half-time of emptying is calculated to b e 106 minutes. Normal is <100 minutes. 4 hour delayed imaging: Gastric retent ion = <5% (normal is <10%) IMPRESSION: No definite evidence of gastroparesis today. The 4-quin r delayed images are clearly normal and these are generally considered more accurate than early imaging in the diagnosis of gastroparesis, altho ugh this is unproven. [id number] Dictated and approved by radiology resid ent/fellow: Dez Tena M.D. I, Mandeep Hemphill, personally reviewed the images and r esident's/fellow's findings and agree with the final report. Procedure Note [facility], Radiology Results Incoming - 02/28/2020 4:15 PM CDT PROCEDURE: NM GASTRIC EMPTYING INDICATION: R68.81 Early satiety, Please perform 4 hour study only-do not perform 90 mins study. Comparison: Very recent gastric emptying study of 02/21/2020 TECHNIQUE: 1 millicurie of [id number] colloid were mixed with an egg and cooked. The egg was fed to the patient and dynamic imaging of the abdomen in the anterior and posterior projections was performed for 90 minutes. Quantification of gastric emptying was performed using the geometr ic mean of the anterior and posterior projections. FINDINGS: The half-time of emptying is c alculated to be 106 minutes. Normal is <100 minutes. 4 hour delayed imaging: Gastric retenti on = <5% (normal is <10%) IMPRESSION: No definite evidence of gastroparesis to day. The 4-hour delayed images are clearly normal and these are generally considered more accurate than early imaging in the diagnosis of gastroparesis, although this is unproven. [id number] Dictated and approved by radiology resid ent/fellow: Dez Tena M.D. I, Mandeep Hemphill, personally reviewed [facility] images and resident's/fellow's findings and agree with the final report. Performing Organization Address [facility] Phon e Number [facility] [address] [place] [address] Surgical pathology request (02/08/2020 12:07 PM CDT)Only the most recent of2 resultswithin the time period is included. [facility] DEPARTMENT OF PATHOLOGY AND GENOMIC MEDICINE Surgical pathology See link below for [facility] DEPARTMENT O F report PDF Lab Report PATHOLOGY AND GENOMIC MEDICINE Result status This is Supplemental [facility] DEPARTMENT OF Report for PATHOLOGY AND [id number] GENOMIC MEDICINE Specimen Performing Organization Address City/[facility] Phon e Number [facility] DEPARTMENT OF PATHOLOGY AND [address] [place] [phone] GENOMIC MEDICINE POC glucose (02/08/2020 11:35 AM CDT)Only the most recent of2 resultswithin the time period is included. 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 Gear Name: Waldemar Willingham Zev Device ID: [id number] Chartable: [facility] Notified RN Specimen Blood Performing Organization Address City/[facility]/ZIP Code Phon e Number [facility] DEPARTMENT OF PATHOLOGY AND [address] [place] [phone] GENOMIC MEDICINE [facility] [address] [place] [address] ECG 12 lead (11/07/2019 10:45 AM RESIDENTIAL REMODELING SUBCONTRACTOR) Pathologist Sig nature Ventricular rate 76 [facility] Atrial rate 76 [facility] [place] interval 152 [facility] QRSD interval 86 [facility] QT interval 394 [facility] QTC interval 443 [facility] P axis 1 73 [facility] QRS axis 1 58 [facility] T wave axis 82 [facility] EKG impression Normal sinus [facility] M[facility] rhythm- Specimen Narrative Performed At This result has an attachment that is no t available. Performing Organization Address City/State/ZIP Code Phon e Number [facility] M[facility] [address] [place] [address] Bone Density (11/07/2019 10:18 AM RESIDENTIAL REMODELING SUBCONTRACTOR) Specimen Narrative Performed At EXAMINATION: BONE DENSITY, BONE DENSIT Y PERIPHERAL [facility] CLINICAL HISTORY: Z94.1 Heart transplant status, N18 .5 Chronic kidney disease stage 5, osteopenia, HX of osteopenia by pre vious annual X-rays COMPARISON: 11/17/2018. The results of this study expressed as bone mineral de nsity (BMD) were as follows: AP spine (L1-L4) BMD: 1.652 g/cm2 T-Score: 3.6 Z score:4.0 Change compared to prior exam: 1.7% Dual Femur (Total Mean): BMD: 1.060 g/cm2 T-Score: -0.3 Z score:0.5 Change compared to prior exam: 2.3% Left femoral neck: BMD: 0.902 g/cm2 T-Score: -1.3 Z score:0.0 Right femoral neck: BMD: 0.970 g/cm2 T-Score: -0.8 Z score:0.5 Forearm (Radius 33%): BMD: 0.916 g/cm2 T-Score: -0.7 Z score: 0.3 Change compared to prior exam: -1.6% Dual femur FRAX: Risk factors: Chronic glucocorticoid use 10 year probability of fracture: 1. Major osteoporotic: 9.5% 2. Hip:3.0% 3. Based on dual femur left neck BMD Trabecular Bone Score (TBS): TBS L1-L4: 1.320, (>1.350 normal, 1.200-1.350 partia lly degraded microarchitecture, <1.200 degraded micro architecture) The 10 year probability of fracture, adj usted for FRAX: Major Osteoporotic Fracture: 9.4% Hip Fracture: 3.1% Impression: Bone mineral density values as above. [id number] A copy of this scans including a report detailing thes e results will follow. Note: The world health organization (WHO) has classifi ed the patient's T-score as follows: Above (-1) as normal (-1) to (-2.5) as low (osteopenia) Below (-2.5) as abnormally low (osteopor osis, increased fracture risk) Procedure Note Hm Interface, Radiology Results Incoming - 11/07/2019 10:25 AM RESIDENTIAL REMODELING SUBCONTRACTOR EXAMINATION: BONE DENSITY, BONE DENSITY PERIPHERAL CLINICAL HISTORY: Z94.1 Heart transplan t status, N18.5 Chronic kidney disease stage 5, osteopenia, HX of osteopenia by previous annual X-rays COMPARISON: 11/17/2018. The results of this study expressed as b one mineral density (BMD) were as follows: AP spine (L1-L4) BMD: 1.652 g/cm2 T-Score: 3.6 Z score:4.0 Change compared to prior exam: 1.7% Dual Femur (Total Mean): BMD: 1.060 g/cm2 T-Score: -0.3 Z score:0.5 Change compared to prior exam: 2.3% Left femoral neck: BMD: 0.902 g/cm2 T-Score: -1.3 Z score:0.0 Right femoral neck: BMD: 0.970 g/cm2 T-Score: -0.8 Z score:0.5 Forearm (Radius 33%): BMD: 0.916 g/cm2 T-Score: -0.7 Z score: 0.3 Change compared to prior exam: -1.6% Dual femur FRAX: Risk factors: Chronic glucocorticoid use 10 year probability of fracture: 1. Major osteoporotic: 9.5% 2. Hip:3.0% 3. Based on dual femur left neck BMD Trabecular Bone Score (TBS): TBS L1-L4: 1.320, (>1.350 normal, 1.200 -1.350 partially degraded microarchitecture, <1.200 degraded microarchitecture) The 10 year probability of fracture, adj usted for FRAX: Major Osteoporotic Fracture: 9.4% Hip Fracture: 3.1% Impression: Bone mineral density values as above. [id number] A copy of this scans including a report detailing these results will follow. Note: The world health organization (WHO ) has classified the patient's T-score as follows: Above (-1) as normal (-1) to (-2.5) as low (osteopenia) Below (-2.5) as abnormally low (osteopor osis, increased fracture risk) Performing Organization Address City/State/ZIP Code Phon e Number [facility] [address] [place] [address] Bone Density Peripheral (11/07/2019 10:17 AM RESIDENTIAL REMODELING SUBCONTRACTOR) Specimen Narrative Performed At EXAMINATION: BONE DENSITY, BONE DENSIT Y PERIPHERAL [facility] CLINICAL HISTORY: Z94.1 Heart transplant status, N18 .5 Chronic kidney disease stage 5, osteopenia, HX of osteopenia by pre vious annual X-rays COMPARISON: 11/17/2018. The results of this study expressed as bone mineral de nsity (BMD) were as follows: AP spine (L1-L4) BMD: 1.652 g/cm2 T-Score: 3.6 Z score:4.0 Change compared to prior exam: 1.7% Dual Femur (Total Mean): BMD: 1.060 g/cm2 T-Score: -0.3 Z score:0.5 Change compared to prior exam: 2.3% Left femoral neck: BMD: 0.902 g/cm2 T-Score: -1.3 Z score:0.0 Right femoral neck: BMD: 0.970 g/cm2 T-Score: -0.8 Z score:0.5 Forearm (Radius 33%): BMD: 0.916 g/cm2 T-Score: -0.7 Z score: 0.3 Change compared to prior exam: -1.6% Dual femur FRAX: Risk factors: Chronic glucocorticoid use 10 year probability of fracture: 1. Major osteoporotic: 9.5% 2. Hip:3.0% 3. Based on dual femur left neck BMD Trabecular Bone Score (TBS): TBS L1-L4: 1.320, (>1.350 normal, 1.200-1.350 partia lly degraded microarchitecture, <1.200 degraded micro architecture) The 10 year probability of fracture, adj usted for FRAX: Major Osteoporotic Fracture: 9.4% Hip Fracture: 3.1% Impression: Bone mineral density values as above. [id number] A copy of this scans including a report detailing thes e results will follow. Note: The world health organization (WHO) has classifi ed the patient's T-score as follows: Above (-1) as normal (-1) to (-2.5) as low (osteopenia) Below (-2.5) as abnormally low (osteopor osis, increased fracture risk) Procedure Note Hm Interface, Radiology Results Incoming - 11/07/2019 10:25 AM RESIDENTIAL REMODELING SUBCONTRACTOR EXAMINATION: BONE DENSITY, BONE DENSITY PERIPHERAL CLINICAL HISTORY: Z94.1 Heart transplan t status, N18.5 Chronic kidney disease stage 5, osteopenia, HX of osteopenia by previous annual X-rays COMPARISON: 11/17/2018. The results of this study expressed as b one mineral density (BMD) were as follows: AP spine (L1-L4) BMD: 1.652 g/cm2 T-Score: 3.6 Z score:4.0 Change compared to prior exam: 1.7% Dual Femur (Total Mean): BMD: 1.060 g/cm2 T-Score: -0.3 Z score:0.5 Change compared to prior exam: 2.3% Left femoral neck: BMD: 0.902 g/cm2 T-Score: -1.3 Z score:0.0 Right femoral neck: BMD: 0.970 g/cm2 T-Score: -0.8 Z score:0.5 Forearm (Radius 33%): BMD: 0.916 g/cm2 T-Score: -0.7 Z score: 0.3 Change compared to prior exam: -1.6% Dual femur FRAX: Risk factors: Chronic glucocorticoid use 10 year probability of fracture: 1. Major osteoporotic: 9.5% 2. Hip:3.0% 3. Based on dual femur left neck BMD Trabecular Bone Score (TBS): TBS L1-L4: 1.320, (>1.350 normal, 1.200 -1.350 partially degraded microarchitecture, <1.200 degraded microarchitecture) The 10 year probability of fracture, adj usted for FRAX: Major Osteoporotic Fracture: 9.4% Hip Fracture: 3.1% Impression: Bone mineral density values as above. [id number] A copy of this scans including a report detailing these results will follow. Note: The world health organization (WHO ) has classified the patient's T-score as follows: Above (-1) as normal (-1) to (-2.5) as low (osteopenia) Below (-2.5) as abnormally low (osteopor osis, increased fracture risk) Performing Organization Address City/State/ZIP Code Phon e Number [facility] [address] [place] [address] Echocardiogram complete w contrast and 3D if needed (11/02/2019 1:26 PM RESIDENTIAL REMODELING SUBCONTRACTOR) Specimen Narrative Performed At This result has an attachment that is no t available. [facility] [address] [place] [address] Pat.Name: OCTAVIO JENKINS Charlene Sharp at.ID: [id number] .Date: 11/02/2019 Refer.MD: EBENEZER ESPOSITO MD Exam Time: 12:53:00 PM Study Type:Routine Echo Height: 69in Weight: 185lb BSA: 2 m2 Age: 2 1945,74Y Sex: MALE BP: 163/77 HR: 87 bpm Sonogrphr: CHRISTOPHER Thakkar, RDCS; Los Summers MD Pat. Stat.:Outpatient Room: [address] Study Status:Final Echo Event ID:[id number] Order ID: [id number] Reason for Study:Cardiac transplant, monitoring for re jection; 12 years post heart transplant screen for rejection History / Clinical:Arrhythmias, COPD, Heart Transplant Procedures: 2D Echo, Colorflow Doppler Race: C FINDINGS: LV: LV size is normal. LV EF is hyperdynamic. Overall wall motion is hyperdynamic. Estimated EF is >70%. RV: RV size is normal. RV systolic function i s normal. LA: LA volume is enlarged. RA: RA volume is severely enlarged. AO: Aortic root diameter is normal. ROSLYN: No pericardial effusion. AV: Trileaflet aortic valve. MV: No structural MV abnormalities noted. PV: No structural PV abnormalities noted. A t race of pulmonic regurgitation. TV: No structural TV abnormalities noted. Mod erate tricuspid regurgitation Mascorro: Normal diastolic function and LV filling p ressures. Other: Estimated PA systolic pressure is 51 mmHg, assuming a mean RAP of 10 mmHg. MEASUREMENTS: 2D Parasternal [place] Ao An 1.9 cm LVPWd 0.9 cm Ao Rtd 3.3 cm Index 1.7 cm/m2 LA Ds 5.1 cm IVSd 1.5 cm RWT 0.42 LVIDd 4.3 cm Index 2.1 cm/m2 LV Mass 183 g (122-174) LVIDs 2.6 cm LVM In dex 92 g/m LV%fs 39 % LVOT 1.9 cm LA Sng Plane LA Area 30 cm (8.8-23.4) LA Vol 100 ml Index 50 ml/m2 LA LngAx 7.3 cm RA Sng Plane RA Vol 135 ml Index 68 ml/m2 RA LngAx 8.6 cm RA Area 37 cm (8.3-19.5) LVOT LVOT Area 2.8 cm DOPPLE R LVOT Stroke Vol LVOT TVI 23 cm HR 79 bpm LVOT LVOT SV 65 ml LVOT CO 5.1 l/min SVi 32 ml/m LVOT CI 2.6 l/m/m Signed 11/03/2019 12:14 PM Sunil Desai M.D. Procedure Note Interface, Radiology Results In - 2019 12:14 PM RESIDENTIAL REMODELING SUBCONTRACTOR Echocardiography Report [id number] [facility], [place] [address] , [place] [address] Pat.Name: OCTAVIO JENKINS Pat.I D: [id number] .Date: 11/02/2019 Refer .MD: EBENEZER ESPOSITO MD Exam Time: 12:53:00 PM Study Type:Routine Echo Height: 69in Weigh t: 185lb BSA: 2 m2 Age: 2 1945,74Y Sex: MALE BP: 163/77 HR: 87 bpm Sonogrphr: CHRISTOPHER Thakkar, RDCS; Los Summers MD Pat. Stat.:Outpatient Room: [facility] Study Status:Final Echo Event ID:[id number] Order ID: [id number] Reason for Study:Cardiac transplant, mon itoring for rejection; 12 years post heart transplant screen for r ejection History / Clinical:Arrhythmias, COPD, He art Transplant Procedures: 2D Echo, Colorflow Doppler Race: C FINDINGS: LV: LV size is normal. LV EF is hy perdynamic. Overall wall motion is hyperdynamic. Estim ated EF is >70%. RV: RV size is normal. RV systolic function is normal. LA: LA volume is enlarged. RA: RA volume is severely enlarged . AO: Aortic root diameter is normal . ROSLYN: No pericardial effusion. AV: Trileaflet aortic valve. MV: No structural MV abnormalities noted. PV: No structural PV abnormalities noted. A trace of pulmonic regurgitation. TV: No structural TV abnormalities noted. Moderate tricuspid regurgitation Mascorro: Normal diastolic function and LV filling pressures. Other: Estimated PA systolic pressure is 51 mmHg, assuming a mean RAP of 10 mmHg. MEASUREMENTS: 2D Parasternal [place] Ao An 1.9 cm LVPW d 0.9 cm Ao Rtd 3.3 cm Inde x 1.7 cm/m2 LA Ds 5.1 cm IVSd 1.5 cm RWT 0.42 LVIDd 4.3 cm Inde x 2.1 cm/m2 LV Mass 183 g (122-174) LVIDs 2.6 cm LVM Index 92 g/m LV%fs 39 % LVOT 1.9 cm LA Sng Plane LA Area 30 cm (8.8-23.4) L A Vol 100 ml Index 50 ml/m2 LA LngAx 7.3 cm RA Sng Plane RA Vol 135 ml Inde x 68 ml/m2 RA LngAx 8.6 cm RA Area 37 cm (8.3-19.5) LVOT LVOT Area 2.8 cm DOPPLER LVOT Stroke Vol LVOT TVI 23 cm HR 79 bpm LVOT LVOT SV 65 ml LVOT CO 5.1 l/min SVi 32 ml/m LVO T CI 2.6 l/m/m Signed 11/03/2019 12:14 PM Sunil Desai M.D. Performing Organization Address City/[facility] Code Phon e Number [facility] [address] [place] [address] CV Cardiac PET Myocardial Perfusion Imaging (11/02/2019 12:33 PM RESIDENTIAL REMODELING SUBCONTRACTOR) Specimen Narrative Performed At This result has an attachment that is no t available. Performing Organization Address [facility] Phon e Number [facility] [address] [place] [address] Cv stress test (11/02/2019 12:33 PM RESIDENTIAL REMODELING SUBCONTRACTOR) Resting HR 79 [facility] Peak MET Achieved 1.0 [facility] Protocol Name Dayana [facility] Time in Exercise 00:01:00 [facility] Phase Max Systolic BP 155 H MUSE Max Diastolic BP 64 [facility] Max Heart Rate 85 H MUSE Max Predicted Heart 144 [facility] Rate Target HR Formula (220 - Age)*100% [facility] Test Indication S/P Heart Transplant [facility] Reason for Protocol Complete [facility] Termination Stress Test Waveform interpreted in [facility] Impression report associated with image study. No interpretation is provided as part of this Stress ECG report.-Electronically Signed By Willard Justice MD ([id number]), proposal editor Allison Prasad ([id number]) on 11/02/2019 12:12:47 PM Target HR 144.00 bpm [facility] Specimen Narrative Performed At This result has an attachment that is no t available. Performing Organization Address City/State/ZIP Code Phon e Number [facility] MUSE [address] [place] [address] US Abdomen Complete (11/02/2019 10:00 AM RESIDENTIAL REMODELING SUBCONTRACTOR) Specimen Narrative Performed At EXAM: US ABDOMEN COMPLETE RADIANT CLINICAL DATA: Z94.1 Heart transplant status, N18.5 Chronic kidney disease stage 5, Abd pain unspecified, [address] transplant- routine screening for complications ma ss Ca renal impairment COMPARISON: 11/17/2018 FINDINGS: LIVER: The liver demonstrates normal echogenicity wi thout focal mass or intrahepatic biliary ductal dilatation. There is a 3.6 cm right hepatic cyst. MPV: Doppler evaluation of the portal vein demonstra adamaris normal hepatopedal flow.. The portal vein heather sures 1.1 cm in diameter. GALLBLADDER: The gallbladder has been surgically removed. CBD: 5 mm, within normal limits. PANCREAS: The visualized portions of the pancreas ar e within normal limits. SPLEEN: The spleen is homogeneous and not enlarged m easuring 12.0 x 5.2 x 5.2 cm. RIGHT KIDNEY: The right kidney demonstrates increase d echogenicity. It is normal in size. There is no evidence of mass, calcu li, or hydronephrosis. The right kidney measures 11.6 x 6.0 x 5.8 cm. There are 2 simple renal cysts measuring up to 1.7 cm. LEFT KIDNEY: The left kidney demonstrates increased echogenicity. It is normal in size. There is no evidence of mass, calcu li, or hydronephrosis. The left kidney measures 13.0 x 6.0 x 5.2 cm. There is a 1.0 cm simple cyst. AORTA: The visualized upper abdominal aorta demonstr ates no evidence of ectasia or aneurysm. The aorta is atherosclerotic. There is a right common iliac artery aneurysm that measur es 3.0 cm, stable since 2017. IVC: An infrarenal IVC filter is prese nt. ASCITES: No abnormal abdominal fluid collections are v isualized. There is no evidence of ascites. PLEURAL EFFUSION: There are no pleural effusions. IMPRESSION: 3.6 cm right hepatic cyst. Echogenic kidneys compatible with medical renal diseas e. Bilateral simple renal cysts. 3.0 cm right common iliac artery aneurys m, stable since 2017. Infrarenal IVC filter. [id number] Dictated and approved by radiology resid ent/fellow: Magi Cardenas M.D. I, Chase Dooley MD, personally reviewed the images an d resident's/fellow's findings and agree with the final report. Procedure Note [facility], Radiology Results Incoming - 11/02/2019 3:08 PM RESIDENTIAL REMODELING SUBCONTRACTOR EXAM: US ABDOMEN COMPLETE CLINICAL DATA: Z94.1 Heart transplant s tatus, N18.5 Chronic kidney disease stage 5, Abd pain unspecified, 12 years post transplant- routine screening for complications mass Ca renal impairment COMPARISON: 11/17/2018 FINDINGS: LIVER: The liver demonstrates normal ec hogenicity without focal mass or intrahepatic biliary ductal dilatation. There is a 3.6 cm right hepatic cyst. MPV: Doppler evaluation of the portal v ein demonstrates normal hepatopedal flow.. The portal vein measures 1.1 cm in diameter. GALLBLADDER: The gallbladder has been s urgically removed. CBD: 5 mm, within normal limits. PANCREAS: The visualized portions of th e pancreas are within normal limits. SPLEEN: The spleen is homogeneous and n ot enlarged measuring 12.0 x 5.2 x 5.2 cm. RIGHT KIDNEY: The right kidney demonstr ates increased echogenicity. It is normal in size. There is no evidence of mass, calculi, or hydronephrosis. The right kidney measures 11.6 x 6.0 x 5.8 cm. There are 2 simple renal cysts measuring up to 1.7 cm. LEFT KIDNEY: The left kidney demonstrat es increased echogenicity. It is normal in size. There is no evidence of mass, calculi, or hydronephrosis. The left kidney measures 13.0 x 6.0 x 5.2 cm. There is a 1.0 cm simple cyst. AORTA: The visualized upper abdominal a ojrge demonstrates no evidence of ectasia or aneurysm. The aorta is atherosclerotic. 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 IVC: An infrarenal IVC filter is presen t. ASCITES: No abnormal abdominal fluid col lections are visualized. There is no evidence of ascites. PLEURAL EFFUSION: There are no pleural effusions. IMPRESSION: 3.6 cm right hepatic cyst. Echogenic kidneys compatible with medica l renal disease. Bilateral simple renal cysts. 3.0 cm right common iliac artery aneurys m, stable since 2017. Infrarenal IVC filter. [id number] Dictated and approved by radiology resid ent/fellow: Magi Cardenas M.D. I, Chase Dooley MD, personally reviewed the images and resident's/fellow's findings and agree with the final report. Performing Organization Address [facility]/ZIP Code Phon e Number [facility] [address] [place] [address] XR Chest 2 Vw (11/02/2019 8:05 AM RESIDENTIAL REMODELING SUBCONTRACTOR) Specimen Narrative Performed At EXAMINATION: XR CHEST 2 VW RADIANT CLINICAL HISTORY: 74 years Male Z94.1 Heart transpla nt status, N18.5 Chronic kidney disease stage 5, Routine CXR outpatie nt unstable chronic cardiopulmonary disease suspected, Post heart transplant 12 years- Annual screening for CA myopath y etc. COMPARISON: January 09, 2019 IMPRESSION: Cardiomediastinal silhouette is unchange d. Scarring in the left lower lobe Age related changes in the osseous structures. The pat ient has undergone median sternotomy, old healed right rib fractures. 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 COMPARISON: January 09, 2019 IMPRESSION: Cardiomediastinal silhouette is unchange d. Scarring in the left lower lobe Age related changes in the osseous struc tures. The patient has undergone median sternotomy, old healed right rib fractures. A metallic lead projects over the cardiac silhouette [id number] Performing Organization Address [facility]/ZIP Code [facility] Number [facility] [address] [place] [address] Donor specific antibody (11/02/2019 7:00 AM RESIDENTIAL REMODELING SUBCONTRACTOR) DSA serum ID [id number] [facility] DSA serum collection 11/02/2019 07:00 [facility] D&T [facility] DSA class I antibody Cw5 [facility] [place] [place] DSA antibody I Cannot rule out [facility] Cw5 as DSA HOSPITAL DSA cPRA class I 16 [facility] DSA class II Negative [facility] antibody [facility] DSA antibody II None [facility] DSA cPRA class II 0 [facility] Donor specific See link below [facility] antibody for PDF Lab HOSPITAL Report Specimen Blood Performing Organization Address City/[facility] Phon e Number [facility] DEPARTMENT OF PATHOLOGY AND [address] [place] [address] [address] [facility] T3 (11/02/2019 7:00 AM RESIDENTIAL REMODELING SUBCONTRACTOR) Pathologist Sig nature T3 115 80 - 200 ng/dL [facility] Specimen Plasma specimen Performing Organization Address [facility] Phon e Number [facility] DEPARTMENT OF PATHOLOGY AND [address] [place] [address] [phone] [address] T4 (11/02/2019 7:00 AM RESIDENTIAL REMODELING SUBCONTRACTOR) Pathologist Sig nature T4 6.4 4.5 - 11.7 ug/dL [facility] Specimen Plasma specimen Performing Organization Address [facility] Phon e Number [facility] DEPARTMENT OF PATHOLOGY AND [address] [place] [address] [address] Testosterone (11/02/2019 7:00 AM RESIDENTIAL REMODELING SUBCONTRACTOR) Pathologist Sig nature Testosterone 155 (L) 193 - 740 ng/dL [facility] L Specimen Plasma specimen Performing Organization Address [facility] Phon e Number [facility] DEPARTMENT OF PATHOLOGY AND [address] [place] [address] [phone] [address] Prostate specific antigen (11/02/2019 7:00 AM RESIDENTIAL REMODELING SUBCONTRACTOR) PSA 0.2 0.0 - 4.0 [facility] Comment: ng/mL HOSPITAL The KEESHA 8000 PSA immunoassay was used. Results obtained with different assay methods or kits should not be used interchangeably and may be differen t. Specimen Plasma specimen Performing Organization Address [facility] Phon e Number [facility] DEPARTMENT OF PATHOLOGY AND [address] [place] [address] [phone] [address] Phosphorus level (11/02/2019 7:00 AM RESIDENTIAL REMODELING SUBCONTRACTOR) Pathologist Sig nature Phosphorus 3.5 2.4 - 4.5 mg/dL [facility] L Specimen Plasma specimen Performing Organization Address City/[facility] Phon e Number [facility] DEPARTMENT OF PATHOLOGY AND [address] [place] [address] [phone] [address] Ionized calcium (11/02/2019 7:00 AM RESIDENTIAL REMODELING SUBCONTRACTOR) Pathologist Sig nature pH 7.36 [facility] Ionized calcium 1.18 1.11 - 1.32 mmol/L [facility] Specimen Plasma specimen Performing Organization Address [facility] Phon e Number [facility] DEPARTMENT OF PATHOLOGY AND [address] [place] [address] [phone] [address] Hepatic function panel (11/02/2019 7:00 AM RESIDENTIAL REMODELING SUBCONTRACTOR) Albumin 3.8 3.5 - 5.0 g/dL [facility] Total bilirubin 0.4 0.0 - 1.2 [facility] mg/dL [facility] Bilirubin direct <0.2 0.0 - 0.3 [facility] mg/dL [facility] Alkaline phosphatase 72 40 - 129 U/L [facility] Protein 7.3 6.3 - 8.3 g/dL [facility] Comment: HOSPITAL Iitwbsz6538.6-7.0 g/dL 1 tfdx1107.4-7.6 g/dL 7 months-9tjwz435.1-7.3 g/dL 1-2 gdwbu319.6-7.5 g/dL >3 .0-8.0 g/dL 18-6755872.3-8.3 g/dL ALT 33 5 - 50 U/L [facility] AST 30 10 - 50 U/L [facility] Specimen Plasma specimen Performing Organization Address [facility] Phon e Number [facility] DEPARTMENT OF PATHOLOGY AND [address] [place] [address] [phone] [address] Basic metabolic panel (11/02/2019 7:00 AM RESIDENTIAL REMODELING SUBCONTRACTOR) Pathologist Sig nature Sodium 148 135 - 148 mEq/L [facility] Potassium 4.0 3.5 - 5.0 mEq/L [facility] Chloride 103 98 - 112 mEq/L [facility] CO2 32 (H) 24 - 31 mEq/L [facility] Anion gap 13@ANIO 7 - 15 mEq/L [facility] BUN 25 (H) 8 - 23 mg/dL [facility] Creatinine 1.80 (H) 0.70 - 1.20 mg/dL [facility] Glucose 112 (H) 65 - 99 mg/dL [facility] Calcium 9.7 8.8 - 10.2 mg/dL [facility] Specimen Plasma specimen Performing Organization Address City/State/ZIP Code Phon e Number [facility] DEPARTMENT OF PATHOLOGY AND [address] [place] [phone] [facility] [address] [address] after 07/10/2019 Insurance Payer Benefit Plan / Subscriber ID Effective Phone Address T ype Group Dates MEDICARE MEDICARE PART [id number] 1997-[place], [place] Medicare A AND B nt SECURE SECURE [id number] 2008-[facility] Comm ercial [facility] MED nt SUPP Advance Directives For more information, please contact: [phone] Type Date Recorded Patient Director Of Public Health Explanati on Advance Directives, Living Will 11/01/2008 9:14 AM and Medical Power of Culinary Art Teacher
--- OUTSIDE RECORDS SUMMARY | 2020-07-10 09:55 | XMS REPORT | Continuity of Care Document ---
:1945 Author Organization [facility] Care Team Providers Name Role Phone [facility] Unavailable Un available Problems Problem Status Onset Classification Date Comments Sourc e Date Reported Traumatic 04/29/20 11/05/2018 [facility] hemopneumothorax, 18 [place] initial encounter Ce nter MULTIPLE RIGHT [place] SID[place] RIB FX [address] [place] [address] Center GO BILLING/ Active 04/07/20 [facility] LFLT #[id number] 18 [facility] Multiple fractures 11/05/2018 [facility] of ribs, right Medic al side, initial Center encounter for closed fracture Hypertensive heart 11/05/2018 [facility] and chronic kidney edical disease with heart C enter failure and stage 1 through stage 4 chronic kidney disease, or unspecified chronic kidney disease Chronic kidney 11/05/2018 [facility] [place] disease, stage 4 Med ical (severe) Center Contusion of lung, 11/05/2018 [facility] unilateral, initial Medical encounter Center Acidosis 11/05/2018 [facility] Center Unspecified 11/05/2018 [facility] fracture of T9-T10 edical vertebra, initial Ce nter encounter for closed fracture Acute kidney 11/05/2018 [facility] as failure, Medical unspecified Center Acute 11/05/2018 [facility] posthemorrhagic [facility] anemia Center Heart transplant 11/05/2018 [facility] status Medical Center Urinary tract 11/05/2018 [place] infection, site not Medical specified Center Atelectasis 11/05/2018 [facility] Medical Center Fall on and from 11/05/2018 [facility] ladder, initial [facility] encounter Center Type 2 diabetes 11/05/2018 [facility] mellitus with Medica l diabetic chronic Raul ter kidney disease Abrasion of left 11/05/2018 [facility] upper arm, initial edical encounter Center Hyperlipidemia, 11/05/2018 [facility] unspecified Medical Center Traumatic 11/05/2018 [facility] subcutaneous Medical emphysema, initial C enter encounter Acute pain due to 11/05/2018 [facility] trauma Medical Center USP (current) 11/05/2018 [facility] use of insulin Medic al Center Hypoxemia 11/05/2018 [facility] Medical [place] Unspecified [place] Escherichia coli Med ical [E. 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 [facility] Gastro-esophageal 11/05/2018 [facility] reflux disease Medic al without esophagitis Center Hyperkalemia 11/05/2018 [place] [facility] Center Diarrhea, 11/05/2018 [facility] unspecified [facility] Center Contusion of 11/05/2018 [place] abdominal wall, Medi jacquelyn initial encounter Ce nter MULTIPLE FRACTURES Active [facility] OF RIBS, UNSP SIDE, Medical I Center Medications Medication Details Route Status Patient Ordering Order Source Instructions Provider Date gabapentin 300 MG 300 mg = 1 cap, Active [place] Oral Capsule PO, BID, # 28 2018 Medic al cap, 0 Refill(s) [place] methocarbamol 500 1,000 mg = 2 tab, No Longer [place] mg oral tablet PO, Q8H, X 14 Active 2018 Med ical day, # 84 tab, 0 Center Refill(s) Lidocaine 0.05 1 patch, TOP, Active [place] MG/MG Transdermal Q24H, # 14 patch, 2018 Medical Patch 0 Refill(s) [place] Docusate Sodium 100 mg = 1 cap, Active [place] 100 MG Oral PO, BID, # 28 2018 Medica l Capsule [Colace] cap, 0 Refill(s) [place] tramadol 50 mg = 1 tab, No Longer [place] hydrochloride 50 PO, Q6H, X 7 day, Active 2018 Medical MG Oral Tablet # 28 tab, 0 Cente r Refill(s) polyethylene 17 gm, PO, BID, X No Longer [facility] glycol 3350 oral 14 day, # 12 ea, Active 2018 Medical powder for 0 Refill(s) Center reconstitution Tacrolimus Notes: Avoid No Longer [place] grapefruit and Active 2018 Medical grapefruit juice. Center (Same As: Prograf) Methadone Notes: (Same as: No Longer [facility] Dolophine) Active 2018 [facility] Center Prograf Notes: (Same As: [place] Prograf) Active [address] [place] [address] remove patch Notes: Remove No Longer [place] patch 12 hours Active [facility] Medical after application Center each day. Prograf Notes: (Same As: [place] Prograf[place] [address] Lidocaine 0.05 1 patch, Route: No Longer [place] MG/MG Transdermal TOP, Q24H, Drug Active [facility] Medical Patch form: FILM, Start Center date: 04/16/18 18:00:00 CDT, Duration: 30 day, Stop date: 05/15/18 18:00:00 CDT tramadol Notes: Not to [place] hydrochloride 50 exceed 400mg/day. Active [facility] Medical MG Oral Tablet (Same As: Ultram) Center gabapentin 100 MG Notes: (Same as: No Longer [facility] Oral Capsule Neurontin) Active [address] [place] [address] Fosfomycin Notes: (Same as: Inactive [facility] Monural) mix w/ 2017 Medical 90 to 120 ml (3 Center to 4 ounces) of water and stir to dissolve. Do not use hot water. Take immediately after dissolving in water. Methadone Notes: (Same as: No Longer [facility] Dolophine) Active [address] [place] [address] Protonix Notes: Tablet [place] should not be Active [address] [place] [address] chewed or Center crushed. (Same as: Protonix) Methadone Notes: (Same as: No Longer [facility] Dolophine) Active [address] [place] [address] Simethicone Notes: (Same as: No Longer [facility] Mylicon) Active [address] [place] [address] Isolyte S PH-7.4 Notes: (Same as: Inactive 04/13 [facility] (Bolus) IV Isolyte S PH7.4) 2018 [facility] jacquelyn [place] multivitamin 1 tab, PO, Daily No Longer [facility] Active [address] [place] [address] Isolyte S PH-7.4 Notes: (Same as: Inactive 04/13 [facility] (Bolus) IV Isolyte S PH 7.4) [facility] Med ical [place] magnesium citrate Notes: (Same as: Inactive 03/27 [facility] 58.2 MG/ML Oral Citrate of 2018 Medic al Solution Magnesia) Center Concentration: 1.745 gm / 30 mL molasses Notes: (Same Inactive [facility] as:Molasses) 2018 Medical Center Flomax Notes: (Same As: No Longer [facility] [place] Flomax) "Do Not Active 2018 Medical Crush" [place] Dulcolax Laxative Notes: (Same As: No Longer [facility] Dulcolax, Active 2018 [facility] Bisco-Lax) Center remove patch Notes: Remove Inactive [place] patch 12 hours 2018 Medical after application Center each day. Fosfomycin Notes: (Same as: Inactive [facility] Monural) mix 2017 Medical 90 to 120 ml (3 Center to 4 ounces) of water and stir to dissolve. Do not use hot water. Take immediately after dissolving in water. Lidocaine Notes: Apply only Inactive [place] Hydrochloride once for up to 2017 Medical 0.05 MG/MG hours in a Center Transdermal Patch 24-hour period [Lidoderm] (12 hours on and 12 hours off). (Same as: Lidoderm) "Remove old patch before application of new patch" Oxycodone Notes: (Same as: Inactive [facility] [place] Hydrochloride 5 Roxicodone) 2018 Medi [place]ac[place] MG Oral Tablet Center gabapentin 100 MG Notes: (Same as: No Longer [facility] Oral Capsule Neurontin) Active 2018 [facility] Center Flomax Notes: (Same As: No Longer [facility] [place] Flomax) "Do Not Active 2018 Medical Crush" [place] sennosides, SNF Notes: (Same as: No Longer 04/10 [facility] Senokot) Active 2018 Medical Center Miralax Notes: Dissolve No Longer [facility] as in 8 oz of water Active 2018 Medical or juice. (Same Center as: Miralax) Oxycodone Notes: (Same as: No Longer [facility] Hydrochloride 5 Roxicodone) Active 2018 Medi [place]acqu[place] MG Oral Tablet Center Bupivacaine Notes: (Same as: Inactive [facility] liposome Exparel) NOT 2018 Medic al FOR IV use Center Postoperative analgesia: Infiltration (local): Dose is based on surgical site and volume required to cover the area (in general, the maximum total dose is 266 mg). Bunionectomy: 7 mL into the tissues surrounding the osteotomy and 1 mL into the subcutaneous tissue of the surgical site (total dose = 8 mL [106 mg]) Hemorrhoidectomy: 30 mL (20 mL vial diluted with 10 mL NS) divided and administered as 6 injections of 5 mL each (total dose = 30 mL [266 mg]) Dulcolax Laxative Notes: (Same As: Inactive 03/27 [facility] Dulcolax, 2018 [facility] Bisco-Lax) [place] Alprazolam 0.5 MG Notes: With food No Longer [facility] Oral Tablet or milk (Same as: Active 2018 [place] dical [Xanax] Xanax) [place] Aspirin 81 MG Notes: Do not No Longer [facility] Enteric Coated crush or chew. Active 2018 [place] dical Tablet (Same As: [place] Ecotrin) sennosides, SNF Notes: (Same as: Inactive [place] Senokot) 2018 [facility] Miralax Notes: Dissolve [place] in 8 oz of water 2018 Medical or juice. (Same Center as: Miralax) Imdur Notes: (Same No Longer [facility] as:Imdur) "Do Not Active 2018 Medica l Crush" Take on Center empty stomach/ full glass of water. Do not crush torsemide Notes: (Same As: No Longer [facility] Demadex) Active [address] [place] [address] Alprazolam 0.5 MG Notes: With food No Longer [facility] Oral Tablet or milk (Same as: Active 2018 [place] dical [Xanax] Xanax) [place] Pravastatin Notes: (Same as: No Longer [facility] Pravachol) Active 2018 [facility] Sulfamethoxazole Notes: One DS No Longer [facility] 800 MG / tablet = Active 2018 Medical Trimethoprim 160 trimethoprim Ce nter MG Oral Tablet 160mg + [Bactrim] sulfamethoxazole 800 mg Dose based on trimethoprim component On empty stomach with a glass of water. (Same As: Bactrim DS, Septra DS) Docusate Sodium Notes: (Same as: No Longer 04/09 [facility] 100 MG Oral Colace) (Do Not Active 2018 [facility] jacquelyn Capsule [Colace] Crush) [place] Oxycodone Notes: (Same as: No Longer [place] Hydrochloride 5 Roxicodone) Active 2018 Medi [place]acquelyn MG Oral Tablet Center Lasix Notes: (Same as: Inactive [place] Lasix) 2018 [facility] Oxycodone Notes: (Same as: No Longer [place] Hydrochloride 5 Roxicodone) Active 2018 Medi [place]acquelyn MG Oral Tablet Center torsemide 20 mg, Route: [place] IVPB, ONCE, 2018 Medical Dosing Weight Center 87.273, kg, Priority: NOW, Start date: 04/09/18 12:00:00 CDT, Stop date: 04/09/18 12:00:00 CDT Dulcolax Laxative Notes: (Same As: No Longer [place] Dulcolax, Active 2017 [facility] Bisco-Lax) Center Labetalol Notes: With food. No Longer [place] (Same Active 2018 Medical as:Trandate, Center Normodyne) Insulin regular 60 units) No Longer [place] WASTE: F/P - Active 2018 Medical Black; E - Center Municipal Trash Bin Stable for 28 days at room temperature Expires in days from Dat e Glucagon 1 mg, Route: IM, No Longer [place] Drug form: Active 2018 Medical PDR/INJ, PRN, Center Dosing Weight 87.273, kg, PRN Blood Glucose Results, Start date: 04/09/18 10:22:00 CDT, Duration: 30 day, Stop date: 05/09/18 10:21:00 CDT Dextrose 50% 25 gm, 50 mL, No Longer [place] Syringe Route: IVP, Drug Active 2017 Medical Form: INJ, Dosing Center Weight 87.273, kg, PRN, PRN Blood Glucose Results, Start date: 04/09/18 10:22:00 CDT, Duration: 30 day, Stop date: 05/09/18 10:21:00 CDT Oxycodone Notes: (Same as: Inactive [place] Hydrochloride 5 Roxicodone) 2018 Medi [place]acquelyn MG Oral Tablet Center gabapentin 300 MG 300 mg, 1 cap, Inactive [place] Oral Capsule Route: PO, ONCE, 2018 Ny dical Dosing Weight Center 87.273, kg, Start date: 04/09/18 8:42:00 CDT, Stop date: 04/09/18 8:42:00 CDT Robaxin Notes: (Same No Longer [place] as:Robaxin) Active 2018 Medical Center Tramadol Notes: Not to Inactive [place] exceed 400mg/day. 2018 Medica l (Same As: Ultram) Center Streptococcus Notes: Shake well No Longer [place] pneumoniae prior to use Active 2018 Medical serotype 1 (Same as: Prevnar Raul ter capsular antigen 13) diphtheria [id number] protein conjugate vaccine / Streptococcus pneumoniae serotype 14 capsular antigen diphtheria [id number] protein conjugate vaccine / Streptococcus pneumoniae serotype 18C capsular antigen d remove patch Notes: Remove No Longer [place] patch 12 hours Active 2017 Medical after application Center each day. Esomeprazole 20 20 mg = 1 cap, No Longer [place] MG Enteric Coated PO, Daily, 0 Active 2017 edical Capsule [Nexium] Refill(s) Cente r montelukast 10 MG 10 mg = 1 tab, No Longer 04/08 [place] Oral Tablet PO, PRN, 0 Active 2017 Medical [Singulair] Refill(s) Center Alprazolam 0.5 MG 0.5 mg = 1 tab, No Longer 03/27 [facility] Oral Tablet PO, Daily, 0 Active 2017 Medical Refill(s) Center Ferrousal 325 mg 325 mg = 1 tab, No Longer 04/08 [place] oral tablet PO, Daily, 0 Active 2017 Medical Refill(s) Center tamsulosin 0.4 mg 0.4 mg = 1 cap, No Longer 03/27 [facility] oral capsule PO, Daily, 0 Active 2017 Medica l Refill(s) Center isosorbide 30 mg = 1 tab, [place] Long[place] mononitrate 30 mg PO, QAM, 0 Active 2017 Med ical oral tablet, Refill(s) Center extended release potassium 10 mEq = 1 tab, [place] Longer [place] chloride 10 mEq PO, Daily, 0 Active 2017 Med ical oral tablet, Refill(s) Center extended release torsemide 20 mg 20 mg = 1 tab, No Longer [place] oral tablet PO, BID, 0 Active 2017 Medical Refill(s) Center gabapentin 300 MG 300 mg = 1 cap, No Longer 03/27 [facility] Oral Capsule PO, TID, 0 Active 2017 Medical Refill(s) Center Metolazone 2.5 MG 2.5 mg = 1 tab, No Longer 03/27 [facility] Oral Tablet PO, Daily, 0 Active 2017 Medical Refill(s) Center amLODIPine 5 mg 5 mg = 1 tab, PO, No Longer 03/27 [facility] oral tablet Daily, 0 Active 2017 Medical Refill(s) Center labetalol 100 mg 100 mg = 1 tab, No Longer 04/08 [facility] oral tablet PO, BID, 0 Active 2017 Medical Refill(s) Center pravastatin 80 mg 80 mg = 1 tab, No Longer 04/08 [facility] oral tablet PO, Daily, 0 Active 2017 Medical Refill(s) Center allopurinol 100 100 mg = 1 tab, No Longer [place] mg oral tablet PO, BID, 0 Active 2018 Medica l Refill(s) Center magnesium oxide 400 mg = 1 tab, No Longer [place] 400 mg oral PO, BID, 0 Active 2017 Medical tablet Refill(s) Center Folic Acid 1 MG 1 mg = 1 tab, PO, No Longer 03/27 [facility] Oral Tablet Daily, 0 Active 2017 Medical Refill(s) Center Fish Oil 1000 mg 1,000 mg = 1 cap, No Longer [facility] oral capsule PO, BID, 0 Active 2017 Medical Refill(s) Center thiamine 100 mg 100 mg = 1 tab, No Longer [facility] oral tablet PO, Daily, 0 Active 2017 Medical Refill(s) Center multivitamin Daily, 0 No Longer [facility] Refill(s) Active 2018 Medical [place] Calcium Carbonate 1 tab, PO, BID, 0 No Longer [facility] 1500 MG / Refill(s) Active 2018 [facility] Cholecalciferol [place] 400 UNT Oral Tablet Aspirin 81 MG 81 mg = 1 tab, No Longer H [place] Chewable Tablet CHEW, Daily, 0 Active 2017 edical Refill(s) Center NovoLIN 70/30 24 unit, SUB-Q, No Longer [facility] QPM, 0 Refill(s) Active 2018 Medical Center NovoLIN 70/30 18 unit, SUB-Q, No Longer [place] QAM, 0 Refill(s) Active 2018 Medical [place] predniSONE 5 mg 5 mg = 1 tab, PO, No Longer 03/27 [facility] oral tablet Daily, 0 Active 2018 Medical Refill(s) Center tacrolimus 0.5 mg 0.5 mg = 1 cap, No Longer 03/27 [facility] oral capsule PO, Q12H, 0 Active 2017 Medical Refill(s) Center Prednisone Notes: Take with No Longer [facility] food. Active 2018 Medical [place] Tacrolimus Notes: Avoid No Longer [place] grapefruit and Active 2018 Medical grapefruit juice. Center (Same As: Prograf) heparin sodium, Notes: porcine No Longer [facility] porcine 2500 heparin Active 2018 Medical UNT/ML Injectable Center Solution acetaminophen Notes: [place] acetaminophen Active 2018 Medical 4000 mg/day (4 Center gm/day). (Same as: Tylenol Extra Strength) iodixanol 100 mL, Route: Inactive [place] IVP, Drug Form: 2018 Medical SOLN, kg, ONCALL, Center STAT, Start date: 04/08/18 3:59:00 CDT, Duration: 1 doses or times, Dose = 2.2ml/kg, Max dose = 100ml -- "To be infused by Radiology Staff ONLY" Lidocaine Notes: (Same as: No Longer [place] Hydrochloride Lidoderm) "Remove Active 2018 Medical 0.05 MG/MG old patch before Cent er Transdermal Patch application of [Lidoderm] new patch" Oxycodone Notes: (Same as: No Longer [place] Hydrochloride 5 Roxicodone) Active 2018 [place]i [place] MG Oral Tablet Center Tramadol Notes: Not to [place] exceed 400mg/day. Active 2018 Medica l (Same As: Ultram) Center gabapentin Notes: (Same as: No Longer [place] Neurontin) Active 2018 [facility] Acetaminophen Notes: Max Inactive [place] acetaminophen 2018 Medical 4000 mg/day (4 Center gm/day). (Same as: Tylenol Extra Strength) Fentanyl Notes: (Same as: [place] Long[place] Sublimaze) Active 2018 Medical Preservative Center free. Saline Flush 0.9% Notes: (Same as: No Longer [facility] BD Posiflush) Active [address] [place] [address] Allergies, Adverse Reactions, Alerts No Known Medication Allergies Immunizations No Data Provided for This Section Results Order Name Results Value Reference Date Interpretation Comments Mckenna rce Range TOXICOLOGY Tacrolimus 3.3 5.0 - 15.0 04/18 [facility] s Lvl /2017 [facility] CHEM PANEL Creatinine 1.61 0.50 - 04/17 [facility] Lvl 1.40 [facility] CHEM PANEL eGFR 42 04/17 Result Comment: The [facility] eGFR is Center calculated using the CKD-EPI formula. In most young, healthy individuals the eGFR will be >90 mL/min/1.73m2 . The eGFR declines with age. An eGFR of 60-89 may be normal in some populations, particularly the elderly, for whom the CKD-EPI formula has not been extensively validated. Use of the eGFR is not recommended in the following populations:< br/>
Yohana viduals with unstable creatinine concentration s, including patients and those with serious co-morbid conditions.<b r/>
Patie nts with extremes in muscle mass or diet.

The data above are obtained from the National Kidney Disease Education Program (NKDEP) which additionally recommends that when the eGFR is used in patients with extremes of body mass index for purposes of drug dosing, the eGFR should be multiplied by the estimated BMI. CHEM PANEL BUN 53 7 - 22 04/17 [facility] CHEM PANEL Glucose Lvl 146 70 - 99 04/17 [facility] CHEM PANEL Sodium Lvl 134 135 - 145 04/[address] CHEM PANEL Potassium Lvl 4.9 3.5 - 5.1 04/17 [place] [facility] CHEM PANEL Chloride Lvl 99 95 - 109 04/17 [facility] s [facility] CHEM PANEL CO2 25 24 - 32 04/17 [facility]2017 [facility] CHEM PANEL Calcium Lvl 8.6 8.5 - 10.5 04/17 [facility] CHEM PANEL AGAP 14.9 10.0 - 04/17 [place] 20.0 [facility] TOXICOLOGY Tacrolimus <2.0 5.0 - 15.0 04/16 [facility] [place] L[place] [facility] CHEM PANEL Glucose Lvl 125 70 - 99 04/16 [facility] CHEM PANEL Creatinine 1.65 0.50 - 04/16 [facility] Lvl 1.40 [facility] CHEM PANEL BUN 51 7 - 22 04/16 [facility] CHEM PANEL Chloride Lvl 100 95 - 109 04/16 s [facility] CHEM PANEL Sodium Lvl 136 135 - 145 04/16 [facility] CHEM PANEL CO2 27 24 - 32 04/16 [facility] CHEM PANEL Potassium Lvl 5.2 3.5 - 5.1 04/16 [place] [facility] CHEM PANEL eGFR 40 04/16 Result Comment: The Medical eGFR is Center calculated using the CKD-EPI formula. In most young, healthy individuals the eGFR will be >90 mL/min/1.73m2 . The eGFR declines with age. An eGFR of 60-89 may be normal in some populations, particularly the elderly, for whom the CKD-EPI formula has not been extensively validated. Use of the eGFR is not recommended in the following populations:< br/>
Yohana viduals with unstable creatinine concentration s, including patients and those with serious co-morbid conditions.<b r/>
Patie nts with extremes in muscle mass or diet.

The data above are obtained from the National Kidney Disease Education Program (NKDEP) which additionally recommends that when the eGFR is used in patients with extremes of body mass index for purposes of drug dosing, the eGFR should be multiplied by the estimated BMI. CHEM PANEL AGAP 14.2 10.0 - 04/16 20.0 [facility] CHEM PANEL Calcium Lvl 8.4 8.5 - 10.5 04/16 [facility] CHEM PANEL eGFR 37 04/15 Result Comment: The Medical eGFR is Center calculated using the CKD-EPI formula. In most young, healthy individuals the eGFR will be >90 mL/min/1.73m2 . The eGFR declines with age. An eGFR of 60-89 may be normal in some populations, particularly the elderly, for whom the CKD-EPI formula has not been extensively validated. Use of the eGFR is not recommended in the following populations:< br/>
Yohana viduals with unstable creatinine concentration s, including patients and those with serious co-morbid conditions.<b r/>
Patie nts with extremes in muscle mass or diet.

The data above are obtained from the National Kidney Disease Education Program (NKDEP) which additionally recommends that when the eGFR is used in patients with extremes of body mass index for purposes of drug dosing, the eGFR should be multiplied by the estimated BMI. CHEM PANEL Potassium Lvl 5.6 3.5 - 5.1 04/15 [facility] CHEM PANEL Chloride Lvl 99 95 - 109 04/15 [facility] CHEM PANEL CO2 29 24 - 32 04/15 [facility]2017 [facility] CHEM PANEL Calcium Lvl 8.9 8.5 - 10.5 04/15 [facility] CHEM PANEL AGAP 14.6 10.0 - 04/15 [facility] 20.0 [facility] CHEM PANEL BUN 56 7 - 22 04/15 [facility]2017 [facility] CHEM PANEL Glucose Lvl 153 70 - 99 04/[address] CHEM PANEL Sodium Lvl 137 135 - 145 04/[address] CHEM PANEL Creatinine 1.77 0.50 - 04/15 [facility] Lvl 1.40 [facility] CHEM PANEL Phosphorus 4.1 2.5 - 4.5 04/[address] CHEM PANEL Magnesium Lvl 2.8 1.8 - 2.4 04/13 [facility] HEMATOLOGY Segs 87.0 45.0 - 04/13 [facility] 75.0 [facility] HEMATOLOGY Neutrophils # 6.6 1.5 - 8.1 04/13 [facility] HEMATOLOGY Lymphocytes 7.0 20.0 - 04/13 [facility] 40.0 [facility] HEMATOLOGY Monocytes 6.0 2.0 - 12.0 04/[address] HEMATOLOGY Lymphocytes # 0.6 1.0 - 5.5 04/13 [facility] HEMATOLOGY Monocytes # 0.4 0.0 - 0.8 04/13 [facility] HEMATOLOGY MCH 32.6 27.0 - 04/13 [facility] 31.0 [facility] HEMATOLOGY MCHC 33.9 32.0 - 04/13 [place] 36.0 [facility] HEMATOLOGY RDW 15.3 11.5 - 04/13 14. [facility] HEMATOLOGY Platelet 136 133 - 450 04/13 [facility] HEMATOLOGY MPV 9.6 7.4 - 10.4 04/13 [facility] HEMATOLOGY WBC X 10x3 7.6 3.7 - 10.4 04/13 [facility] HEMATOLOGY Hct 31.0 42.0 - 04/13 [place] 54.0 [facility] HEMATOLOGY MCV 96.1 80.0 - 04/13 [place] 94.0 [facility] HEMATOLOGY RBC X 10x6 3.22 4.70 - 04/13 [place] 6.10 [facility] HEMATOLOGY Hgb 10.5 14.0 - 04/13 [place] 18.0 [facility] CHEM PANEL Phosphorus 3.6 2.5 - 4.5 04/12 [facility] CHEM PANEL Magnesium Lvl 2.4 1.8 - 2.4 04/12 [facility] HEMATOLOGY Segs 84.1 45.0 - 04/12 [place] 75.0 [facility] HEMATOLOGY Lymphocytes # 0.9 1.0 - 5.5 04/12 [facility] HEMATOLOGY Basophils 0.2 0.0 - 1.0 04/12 [facility] HEMATOLOGY Eosinophils 0.4 0.0 - 4.0 04/12 [facility] HEMATOLOGY Neutrophils # 9.2 1.5 - 8.1 04/12 [facility] HEMATOLOGY Monocytes 6.7 2.0 - 12.0 04/12 [facility] HEMATOLOGY Lymphocytes 8.6 20.0 - 04/12 [place] 40.0 [facility] HEMATOLOGY Monocytes # 0.7 0.0 - 0.8 04/12 [facility] HEMATOLOGY Platelet 116 133 - 450 04/12 [facility] HEMATOLOGY RDW 15.3 11.5 - 04/12 14.5 [facility] HEMATOLOGY MCV 96.8 80.0 - 04/12 94.0 [facility] HEMATOLOGY MCH 31.8 27.0 - 04/12 [place] 31.0 [facility] HEMATOLOGY Hgb 10.6 14.0 - 04/12 [place] 18.0 [facility] HEMATOLOGY RBC 3.32 4.70 - 04/12 6.10 [facility] HEMATOLOGY MCHC 32.8 32.0 - 04/12 [place] 36.0 [facility] HEMATOLOGY Hct 32.2 42.0 - 04/12 [place] 54.0 [facility] HEMATOLOGY MPV 9.7 7.4 - 10.4 04/12 [facility] HEMATOLOGY WBC 10.9 3.7 - 10.4 04/12 [facility] TOXICOLOGY Tacrolimus 4.3 5.0 - 15.0 04/11 s Lvl [facility] HEMATOLOGY Lymphocytes 7.8 20.0 - 04/11 [place] 40.0 [facility] HEMATOLOGY Monocytes 7.6 2.0 - 12.0 04/11 [facility] HEMATOLOGY Eosinophils 0.6 0.0 - 4.0 04/11 [facility] HEMATOLOGY Neutrophils # 9.1 1.5 - 8.1 04[place]11 [place] [facility] HEMATOLOGY Basophils 0.2 0.0 - 1.0 04/11 [facility] HEMATOLOGY Lymphocytes # 0.8 1.0 - 5.5 04/11 [facility] [place] [facility] HEMATOLOGY Monocytes # 0.8 0.0 - 0.8 04[place] [facility] HEMATOLOGY Eosinophils # 0.1 0.0 - 0.5 04/11 [facility] [place] [facility] HEMATOLOGY Segs 83.8 45.0 - 04/11 [place] 75.0 [facility] HEMATOLOGY RBC 3.33 4.70 - 04/11 [place] 6.10 [facility] HEMATOLOGY WBC 10.8 3.7 - 10.4 04/11 [facility] HEMATOLOGY RDW 15.2 11.5 - 04/11 [place] 14.5 [facility] HEMATOLOGY Platelet 118 133 - 450 04/11 [facility] HEMATOLOGY MPV 9.6 7.4 - 10.4 04/11 [facility] HEMATOLOGY MCHC 33.5 32.0 - 04/11 [place] 36.0 [facility] HEMATOLOGY MCH 32.3 27.0 - 04/11 [place] 31.0 /2017 [facility] HEMATOLOGY Hct 32.1 42.0 - 04/11 [facility] 54.0 /2017 [facility] HEMATOLOGY MCV 96.2 80.0 - 04/11 [facility] 94.0 /2017 [facility] HEMATOLOGY Hgb 10.8 14.0 - 04/11 [facility] 18.0 /2017 [facility] GENTAMICIN: Culture: This Report Contains A Correction [facility] SUSC:PT:ISO Urine Disregard Previous R eport Of: >100,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 Center LESIA Corrected Report Is: >100,000 CFU/mL Esch erichia coli . Upon Supplemental Testing, This Organism Was Not Found To Produce An Extended Spectrum Beta Lactamase (ESBL). Phone Report Made To: Ivania Guzman at [facility] 8JNP At: 04/13/2018 08:13 Called By: HP Read Back Ok GENTAMICIN: Escherichia [place] 04[place] SUSC:PT:ISO coli a coli /2017 [facility] LATE:ORDQN: Center LESIA DRUG SCREEN U Amph Scr Negative Negative 04[place] *NA* /2017 [facility] (04/09/18 1:42 PM) Center DRUG SCREEN U Cannab Scr Negative Negative [place]/09 [place] *NA* /2017 [facility] (04/09/18 1:42 PM) Center DRUG SCREEN U Negative Negative 04/09 [facility] Phencyclidine *NA* /2017 Medical Scr (04/09/18 1:42 PM) Center DRUG SCREEN U Opiate Scr Positive Negative 04[place] *ABN* Medical (04/09/18 1:42 PM) Center DRUG SCREEN UDS Note See Note 04/09 [facility] (04/09/18 1:42 PM) /2017 [facility] l Center DRUG SCREEN U Maureen Scr Negative Negative [place] *NA* [facility] (04/09/18 1:42 PM) Center DRUG SCREEN U Cocaine Scr Negative Negative 04/09 [place] *NA* Medical (04/09/18 1:42 PM) Center DRUG SCREEN U Benzodiaz Negative Negative 04/09 [place] *NA* Medical (04/09/18 1:42 PM) Center URINE AND UA <=1.0 0.1 - 1.0 04/09 [facility] [facility] Urobilinogen mg/dL /2017 [facility] URINE AND UA Sq Epi None Seen 04/09 [facility] [facility] /2017 [facility] URINE AND UA Blood Large Negative 04/09 [facility] [facility] *ABN* /2017 [facility] (04/09/18 1:42 PM) [place] URINE AND UA Nitrite Negative Negative 04/09 [facility] [facility] (04/09/18 1:42 PM) /2017 [facility] [place] URINE AND UA Leuk Est Large Negative 04/09 [facility] [facility] *ABN* /2017 [facility] (04/09/18 1:42 PM) [place] URINE AND UA WBC >182 0 - 5 04/09 [facility] [facility] /2017 [facility] URINE AND UA RBC 125 0 - 2 04/09 [facility] [facility] /2017 [facility] URINE AND UA Glucose Negative Negative 04/09 [facility] [facility] mg/dL mg/dL /2017 [facility] URINE AND UA Ketones Negative Negative 04/09 [facility] [facility] mg/dL mg/dL /2017 [facility] URINE AND UA Bili Negative Negative 04/09 [facility] [facility] *NA* /2017 [facility] (04/09/18 1:42 PM) [place] URINE AND UA Bacteria Occasional None Seen 04/09 [facility] [place] STOOL /HPF /HPF /2017 [facility] URINE AND UA Color Yellow Yellow 04/09 [facility] [facility] *NA* /2017 [facility] (04/09/18 1:42 PM) [place] URINE AND UA Turbidity Marked Clear 04/09 [facility] [facility] *ABN* /2017 [facility] (04/09/18 1:42 PM) [place] URINE AND UA Spec Grav 1.013 <=1.030 04/09 [facility] [facility] /[address] [place] [address] URINE AND UA pH 5.5 5.0 - 8.0 04/09 [facility] [facility] /[address] [place] [address] URINE AND UA Protein 100 mg/dL Negative 04/09 [facility] [facility] mg/dL /[address] [place] [address] HEMATOLOGY Basophils 0.2 0.0 - 1.0 04/[address] HEMATOLOGY Eosinophils 0.8 0.0 - 4.0 04/09 [place] /[address] [place] [address] HEMATOLOGY Eosinophils # 0.1 0.0 - 0.5 04/09 [place] /[address] [place] [address] URINE AND UA Hyal Cast 6-10 0 - 2 04/08 [facility] [facility] (04/08/18 12:20 AM) /2017 [facility] URINE AND UA Coarse 6-10 /LPF None Seen 04/08 [facility] STOOL Gran /LPF /2017 [facility] URINE AND UA Color Yellow Yellow 04/08 [facility] STOOL *NA* /2017 Medical (04/08/18 12:20 AM) Cente r URINE AND UA Glucose Negative Negative 04/08 [facility] [facility] (04/08/18 12:20 AM) [facility] URINE AND UA Protein 30 mg/dL Negative 04/08 [facility] STOOL mg/dL /2017 [facility] URINE AND UA pH 5.5 5.0 - 8.0 04/08 [facility] STOOL /2017 [facility] URINE AND UA Spec Grav 1.025 <=1.030 04/08 [facility] [facility] URINE AND UA Turbidity Slight Cloudy Clear 04/08 [facility] [facility] (04/08/18 12:20 AM) [facility] URINE AND UA Nitrite Negative Negative 04/08 [facility] [facility] (04/08/18 12:20 AM) [facility] URINE AND UA 0.2 0.1 - 1.0 04/08 [facility] [facility] Urobilinogen /2017 [facility] URINE AND UA Blood Large Negative 04/08 [facility] STOOL *ABN* /2017 Medical (04/08/18 12:20 AM) Cente r URINE AND UA Bili Negative Negative 04/08 [facility] [facility] *NA* /2017 Medical (04/08/18 12:20 AM) Cente r URINE AND UA Ketones Negative Negative 04/08 [facility] [facility] *NA* /2017 Medical (04/08/18 12:20 AM) Cente r URINE AND UA Bacteria Few /HPF None [place]en 04[place] ST[place]OL /HPF /2017 [facility] URINE AND UA RBC 21-50 /HPF 0 - 2 04/08 [facility] STOOL /2017 [facility] URINE AND UA WBC 1-3 04/08 [facility] STOOL /2017 [facility] URINE AND UA Sq Epi Occasional Few /LPF 04/08 [facility] STOOL /LPF /2017 [facility] URINE AND UA Leuk Est Negative Negative 04/08 [facility] [facility] (04/08/18 12:20 AM) /[address] [facility] BLOOD BANK Antibody Scrn Negative 04/08 [facility] as RESULTS (04/07/18 11:50 PM) [facility] BLOOD BANK ABO/Rh A POS 04/08 [facility] RESULTS /2017 [facility] CHEM PANEL Lactic Acid 0.8 0.5 - 2.2 04/08 [place] [facility] CHEM PANEL Total Protein 7.0 6.4 - 8.4 04/08 [place] [facility] CHEM PANEL Albumin Lvl 3.7 3.5 - 5.0 04/08 [place] [facility] CHEM PANEL ALT 46 0 - 65 04/08 2017 [facility] CHEM PANEL AST 60 0 - 37 04/08 [facility] CHEM PANEL Alk Phos 65 39 - 136 04/08 [facility] CHEM PANEL Bili Total 0.7 0.2 - 1.3 04/08 [facility] CHEM PANEL Bili Indirect 0.6 0.0 - 1.0 04/08 [place] [facility] CHEM PANEL Bili Direct 0.1 0.0 - 0.3 04/08 [place] [facility] CHEM PANEL A/G Ratio 1.1 0.7 - 1.6 04/08 [facility] CHEM PANEL Globulin 3.3 2.7 - 4.2 04/08 [facility] HEMATOLOGY PTT 29.3 22.9 - 04/08 [place] 35.8 [facility] HEMATOLOGY INR 1.19 0.85 - 04/08 [place] 1.17 [facility] HEMATOLOGY PT 15.2 12.0 - 04/08 [facility] 14.7 [facility] HEMATOLOGY Estimated % 1.1 0.0 - 7.5 04/08 [place] [facility] HEMATOLOGY ACT (TEG) 97 86 - 118 04/08 [facility] HEMATOLOGY G-value Rapid 8.1 5.0 - 11.6 04/08 [place] [facility] HEMATOLOGY [place] 0.4 04/08 [facility] Rapid [facility] HEMATOLOGY R-time Rapid 0.5 0.4 - 0.7 04/08 [place] [facility] HEMATOLOGY Angle Rapid 76 64 - 80 04/08 [facility] HEMATOLOGY Max Amplitude 62 52 - 71 04/08 [place] [facility] HEMATOLOGY K-time Rapid 1.2 0.6 - 2.3 04/08 [place] [facility] TOXICOLOGY Etoh (%) <0.003 04/08 [facility] /[address] [place] [address] TOXICOLOGY Ethanol Lvl <3 07/[address] Pathology Reports No Data Provided for This Section Diagnostic Reports Report Value Date Source Chest 1view DX EXAM: XR CHEST 1 VIEW 04/13/2018 [facility] [place] edical DATE: 04/13/2018 Center INDICATION: Trauma - multiple R rib fxs . Sachin rison is made with yesterday FINDINGS: Cardiomediastinal silhouette and sternal wires are unchanged. Bilateral pleural effusions are unchanged. Lung volumes are low. Is platelike atelectasis at both lung bases. Otherwise, the lungs are clear IMPRESSION: No significant interval change when compared to prior radiograph. Chest 1view DX EXAM: XR CHEST 1 VIEW 04/12/2018 [facility] [place] edical DATE: 04/12/2018 3:00 AM CDT Cent er INDICATION: effusion - effusion COMPARISON: Chest radiograph April 11, 2018 at 1: 12 AM. TECHNIQUE: AP chest. FINDINGS: Redemonstration of postsurgical changes. Stable enlarged cardiac mediastinal silhouette. Stable small bilateral pleur al effusions. The lung volumes are low. Bilateral basilar opacities are likely subsegmental atelectasis, although superimposed infection cannot be excluded. IMPRESSION: 1. No significant change from prior chest radio graph. Abdomen AP DX EXAM: XR ABDOMEN 1 VIEW 04/11/2018 [facility] DATE: 04/11/2018 3:00 AM CDT Cent er INDICATION: dilated bowel - dilated bowel ADDITIONAL INFORMATION: None. COMPARISON: KUB 04/10/2018 at 1055 hours TECHNIQUE: Frontal images of the abdomen = 3. FINDINGS: Lines and tubes: Redemonstrated median sternotom y wires, overlying EKG leads. Surgical clips project over the left upper quadr ant. Partially seen IVC filter projecting to the righ t of the lumbar spine. Surgical clips project over the right issue pubi c ramus. Lower thorax: Bibasilar atelectasis. Bowel: Persistent moderate g aseous distention of the stomach. Gaseous distention of the nondilated small and large bowel loops. Moderate stool within the transverse colon and splenic flexure. Solid organs: No abnormal mass or organomegaly s een. Calcifications: Vascular calcifications. Bones: Degenerative changes of the thoracolumbar spine. IMPRESSION: 1. Persistent moderate gase ous distention of the stomach. Patient may benefit from NG tube decompression. 2. Nonobstructive bowel gas pattern. Moderate s tool. Chest 1view DX EXAM: XR CHEST 1 VIEW 04/11/2018 [facility] [place] edical DATE: 04/11/2018 3:00 AM CDT [facility] er INDICATION: pleural effusion - pleural effusion. FINDINGS: Comparison is made to April 10. Cardiomediastinal silhouette and postoperative changes are unchanged. Small bilateral pleural effusions. Bilateral lower lobe subsegmental atelectasis. IMPRESSION: No significant change. Abdomen AP DX EXAM: XR ABDOMEN 1 VIEW 04/10/2018 [facility] DATE: 04/10/2018 7:52 AM CDT [facility] er INDICATION: dilated bowel - dilated bowel COMPARISON: None. TECHNIQUE: AP view of the abdomen. FINDINGS: The stomach is moderately gas distended. Bowel: No dilated small bowel loops. Moderate vo lume ascending colonic stool. Solid organs: No organomegaly. No abnormal jacquelyn cifications found. Bones: Unremarkable. IMPRESSION: Moderately gas-distended stomach. Chest 1view DX EXAM: XR CHEST 1 VIEW 04/10/2018 [facility] [place] edical DATE: 04/10/2018 3:00 AM T [facility] er INDICATION: L pleural effusion - L pleural effus ion COMPARISON: 04/09/2018 TECHNIQUE: AP chest IMPRESSION: 1. Prominent lung reticulat ions again seen bilaterally with patchy airspace opacities suggestive of infectious process or pulmonary edema, findings are stable compared to previous study. 2. Again seen is elevation of the left hemidiaphragm with left basilar atelectatic changes. 3. Small bilateral pleural effusions. 4. Cardiomediastinal silhou ette is enlarged, unchanged. Aortic atherosclerotic disease. 5. Osseous structures are stable. Chest 1view DX EXAM: XR CHEST 1 VIEW 04/09/2018 [facility] [place] edical DATE: 04/09/2018 10:39 AM CDT [facility] ter INDICATION: hypoxia - hypoxia COMPARISON: April 08, 2018 TECHNIQUE: AP chest IMPRESSION: 1. Interval improvement in the previously seen pulmonary edema/infection. 2. Again seen is elevation of the left hemidiaphragm with left basilar atelectatic changes. Gastric distention is noted. 3. Costophrenic sulci are sharp. 4. Cardiomediastinal silhou ette is enlarged, unchanged. Aortic atherosclerotic disease. 5. Osseous structures are stable. Chest 1view DX EXAM: XR CHEST 1 VIEW 04/08/2018 [facility] [place] edical DATE: 04/08/2018 6:00 AM CDT Cent er INDICATION: - right rib fractures COMPARISON: CT chest, abdomen, and pelvis on 03/27. [place] SECTION: ER TECHNIQUE: AP chest. FINDINGS: Lines, tubes and hardware: M edian sternotomy wires are present. A linear metallic density projects over the left lower chest. Lungs and pleura: Left hemid iaphragm is elevated, unchanged. Right lower lobe airspace opacity is again seen and represents since the pulmonary contusion. Small pneumothorax seen on the CT is not identified on this supine study. Heart and mediastinum: The h eart size is enlarged. Vascular calcifications are present at the tortuous descending thoracic aorta. Bones: Multilevel right-side d rib fractures are better depicted on the same day CT. IMPRESSION: 1. Right lower lung pulmonary contusion. 2. Elevated left hemidiaphragm with left basila r subsegmental atelectasis. 3. Multilevel right rib fractures are better de picted on same day CT. 4. Unchanged cardiomegaly. Chest/Abdomen/Pelvis EXAM: CT CHEST WITH CONTRAST 04/08/2018 [facility] IV contrast CT EXAM: CT ABDOMEN AND PELVIS WITH CONTRAST Center DATE: 04/08/2018 2:38 AM CDT INDICATION: - s/p fall COMPARISON: Chest radiograph and pelvic radiogra phs on 04/07/2018. TECHNIQUE: Volumetric CT of the chest, abdomen and pelvis is acquired following intravenous administration of contrast. Axial, coronal and sagittal images are provided. Oral contrast: None. DLP: 3495 mGy-cm [place] SECTION: ER FINDINGS: Chest: No mediastinal hematoma or t horacic aortic injury. The heart is mildly enlarged. Postoperative appearance associated with CABG. There is mild ectasia of the ascending thoracic aorta. Severe atherosclero sis of the aortic arch, including at the origin of the great vessels. Small right pneumothorax, pr edominantly located in the lower anterior pleural space. Small volume right pleural fluid is present. There is dependent subsegmental atelectasis. In the right lung base ther e is a dense opacity, likely representing a contusion with probable small lacerations. Paraseptal emphysematous changes are noted in the upper lobes. Abdomen: No acute traumatic abnormali ty is seen in the liver, pancreas, spleen, adrenal glands, both kidneys, and bowel. There is a 2.9 x 3.2 cm hypo density near the hepatic hilum with attenuation of about 36 Hounsfield units. There is mild intrahepatic biliary ductal dilation, predominantly in the right hepatic lobe. The common bile duct is within normal limits for a postcholecystectomy patient. Mild nonspecific fat strandi ng is seen in the right suprarenal region. The pancreas is atrophic with fatty replacement. The kidneys are atrophic. Small subcentimeter hypodensities in both kidneys are not fully characterized on this exam. Urinary bladder is decompressed with a [place] cat heter in place. No acute vascular injury. Th ere is aneurysmal dilation of the proximal right common iliac artery up to 2.9 cm. Severe atherosclerosis of the aorta and its main branches. An infrarenal IVC filter is visualized. Spine/ Bones: * Mildly displaced right po sterior 6th-9th rib fractures. Nondisplaced right posterior 10th rib fracture, posteromedial right seventh and eighth rib fractures, and anterior right 3-5 rib fractures. * Minimally displaced fract ure of the right T9 transverse process. Possible right T10 transverse process fracture. * No acute fracture or malalignment in the lumb ar spine and bony pelvis. Soft tissues: Soft tissue co ntusion and subcutaneous emphysema and the right lower lateral flank. Mild left hip soft tissue contusion. Moderate bilateral fat-containing inguinal hernias. IMPRESSION: 1. Right lower lobe pulmonary contusion with pr obable small lacerations. 2. Small right anterior pneumothorax and small right hemothorax. 3. Mildly displaced right p osterior 6th-9th rib fractures. Nondisplaced right posterior 10th rib fracture, posteromedial right seventh and eighth rib fractures, and anterior right 3-5 rib fractures. 4. Right T9 transverse proc ess minimally displaced fracture. Possible right T10 transverse process fracture. 5. Soft tissue contusion an d subcutaneous emphysema in the right lower lateral flank. Mild soft tissue contusion in the left hip. 6. Hepatic hilar 3.1 cm mil dly hyperattenuating cystic lesion could represent a complex cyst. Mild bilobar intrahepatic biliary dilation, which could at least be partly related to postcholecystectomy status. MRI/MRCP would better evaluate. 7. 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 Ectasia of the ascending aorta. 8. Severe calcific atherosclerosis. 9. Cardiomegaly. Spine cervical wo EXAM: CT CERVICAL SPINE WITHOUT CONTRAST 04/08 [facility] contrast CT (ER) DATE: 04/08/2018 2:[address] INDICATION: - s/p fall COMPARISON: CT head on 04/08/2018 TECHNIQUE: Volumetric CT of the cervical spine is acquired without contrast. Axial, coronal and sagittal images are provided. IV contrast: None. [place] SECTION: ER FINDINGS: The spine is imaged from the skull bas e to the level of C7-T1. No acute fracture or malalig nment is identified. Multilevel degenerative changes are noted. Calcific atherosclerosis noted. IMPRESSION: No acute fracture or malalignment o f the cervical spine. Brain wo contrast CT EXAM: CT BRAIN WITHOUT CONTRAST 04/08/2018 [facility] DATE: 04/08/2018 2:38 AM CDT Cent er INDICATION: - s/p fall COMPARISON: None. TECHNIQUE: Axial noncontrast CT images of the brain were obtained. 5 mm axial, sagittal, and coronal coronal reformats were reviewed. IV contrast: None. DLP: 1026.8 mGy-cm FINDINGS: There is no intracranial hemorrhage or extra-axi al collection. Encephalomalacia and gliosis from remote prior infarctions resides within the left occipital lobe, the left frontal lobe middle frontal gyrus, and the left superior parietal lobule. Hypoattenuation within the l ingual gyrus of the right occipital lobe (series 2 image 10) projects within a region that has diffuse streak artifact on the sagittal imaging (series 7 image 16) and thus is favored to represent artifact. No mass or mass effect. Mild ex vacuo ventricular dilatation from mild c entral volume loss. The density of the larger intracranial sinuses i s normal. The skull base and calvarium are normal. The paranasal sinuses and mastoid air cells are predominantly clear. IMPRESSION: 1. No intracranial hemorrhage. 2. 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 The final report agrees with the prelimi nary report by the overnight resident. Chest 1view DX EXAM: XR CHEST 1 VIEW 04[facility]07/2018 [facility] DATE: 04/07/2018 11:[address] INDICATION: - right rib fractures COMPARISON: Chest x-ray in 04/07/2018 [place] SECTION: ER TECHNIQUE: AP chest. FINDINGS: Lines, tubes and hardware: M edian sternotomy wires are present. A linear metallic fragment projects over the left lower thorax. Lungs and pleura: Left basil ar opacity noted with blunting of the left costophrenic sulcus. Airspace opacity in the right lower lung could represent a pulmonary contusion. No pneumothorax is identified within the limits of the semiupright study. Heart and mediastinum: The h eart size is enlarged. Aortic arch calcifications noted. Bones: Right posterior sixth-ninth rib fractures . IMPRESSION: 1. Right lower lung airspace opacity could repr esent pulmonary contusion. 2. Right posterior sixth-ninth rib fractures. 3. Blunting of the left cos tophrenic sulcus may be related to pleural fluid/thickening. 4. Subsegmental atelectasis and/or scarring in the left lung base. 5. Mild cardiomegaly. Consultation Notes No Data Provided for This Section Discharge Summaries No Data Provided for This Section History and Physicals No Data Provided for This Section Vital Signs Vital Sign Value Date Comments Source Respitory Rate 16 04/18/2018 [facility] Heart Rate 80 04/18/2018 [facility] Systolic (mm Hg) 143 04/18/2018 [facility] Diastolic (mm Hg) 75 04/18/2018 [facility] Temperature Oral (F) 97.5 F 04/18/2018 [facility] Heart Rate 76 04/18/2018 [facility] Respitory Rate 16 04/18/2018 [facility] Temperature Oral (F) 97.8 F 04/18/2018 [facility] Systolic (mm Hg) 130 04/18/2018 [facility] Diastolic (mm Hg) 73 04/18/2018 [facility] Systolic (mm Hg) 142 04/18/2018 [facility] Diastolic (mm Hg) 86 04/18/2018 [facility] Temperature Oral (F) 97.5 F 04/18/2018 [facility] Heart Rate 78 04/18/2018 [facility] Respitory Rate 16 04/18/2018 [facility] Weight 87.273 04/09/2018 [facility] BMI Calculated 28.41 04/09/2018 [facility] Height 175.26 cm 04/09/2018 [facility] Encounters Location Location Encounter Encounter Reason Attending ADM DC Stat us Source Details Type Number For Provider Date Date Visit [facility] [id number] [place] 04/08 04/19 [facility] Procedures No Data Provided for This Section Assessment and Plan Assessment and Plan Date Source Extracted from:Title: Trauma Progress Note 04/19/2018 [facility] Author: Familia Clark MD Date: 04/17/18 [facility] [place] [facility] IMU/Floor Progress Note: Today's Date: 04/17/2018 08:46 Chief Complaint: "I want to go home" Overnight Events: No acute events overnight Physical Examination/Findings: Vital Signs: Vitals Tmp(F) Pulse BP RR SpO2 FIO2 04/17 04:42 98 77 115/67 18 92 --- 04/17 00:11 97.9 73 129/74 18 91 --- 04/16 20:56 ---- --- ----- -- 93 21% 04/16 20:07 97.5 95 148/81 18 94 --- 04/16 16:23 98.2 85 129/69 20 90 --- 24 Hr Tmax: 98.2F (36.78c) at 04/16 16:2 3 Vital Signs are the last 5 in the past 48 hours. Constitutional/Neuro/Psych: GCS: Eye: 4 Verbal: 5 Motor: 6 Total: 15 Alert and oriented x 4 Cranial nerve exam grossly intact No obvious motor or sensory deficits Improved pain with methadone HEENT: Normocephalic, atraumatic Cardiovascular: Hemodynamically stable Pulmonary: Unlabored breathing GI/Nutrition: No nausea or vomiting, patient has had a bowel movement Abdomen soft, non-distended, non-tender to palpation Type of Diet: Diet Heart Healthy -- 04/08/18 9:58:00 CDT Oral Supplements -- 04/10/18 9:04:00 CDT , LoCarb HiPro (Boost Glucose), 2 cans/units per 24 hours, Chocolate IVF: NA 24 Hour Urine Output: 520 mL Input/Output Record In Out Bal 04/16 24hr Tot 2445 520 1925 04/15 24hr Tot 7013 200 2257 Lines, Tubes, and Drains: 04/10/2018 02:00 Peripheral Lines: Forea rm Left 20 gauge Over the needle catheter 04/09/2018 05:30 Peripheral Lines: Antec ubital Left 18 gauge Over the needle catheter [place] necessary for: NA Infectious Disease/Hematology: Afebrile Central venous access: NA DVT prophylaxis: heparin Endocrine: Glucose range: within normal limits 24 Hour Insulin requirements: on insulin Musculoskeletal/Skin: Activity: unrestricted Weightbearing status: WBAT Skin/wound examination: unremarkable Extremity examination: no signs of erythema or edema Disposition: TBD-likey home with /HH PT/OT Plan: Following CM Plan: Following SW Plan: Following Labs (Last four charted values) WBC 7.6 (APR 13) H 10.9 (APR 12) H 10.8 (APR 11) 8.2 (APR 09) Hgb L 10.5 (MAR 27) L 10.6 (APR 12) L 10.8 (APR 11) L 12.3 (APR 09) Hct L 31.0 (MAR 27) L 32.2 (APR 12) L 32.1 (APR 11) L 37.3 (APR 09) Plt 136 (APR 13) L 116 (APR 12) L 118 (APR 11) L 114 (APR 09) Na L 134 (APR 17 ) 136 (APR 16) 137 (APR 15) 139 (APR 14) K 4.9 (APR 17) H 5.2 (APR 16) H 5.6 (APR 15) H 5.3 (APR 14) CO2 25 (APR 17) 27 (APR 16) 29 (APR 15) 31 (APR 14) Cl 99 (APR 17) 100 (APR 16) 99 (APR 15) 98 (APR 14) Cr H 1.61 (MAR 28 2) H 1.65 (APR 16) H 1.77 (APR 15) H 2.03 (APR 14) BUN H 53 (APR 17) H 51 (APR 16) H 56 (APR 15) H 57 (APR 14) Glucose Random H 146 (APR 17 ) H 125 (APR 16) H 153 (APR 15) H 159 (APR 14) Mg H 2.8 (APR 13) 2.4 (APR 12) Phos 4.1 (APR 13) 3.6 (APR 12) Ca 8.6 (APR 17) L 8.4 (APR 16) 8.9 (APR 15) 9.1 (APR 14) PT H 15.2 (APR 07) INR H 1.19 (APR 07) PTT 29.3 (APR 07) Scheduled Meds (20): 04/08/18 acetaminophen 1 gm PO Q6H 04/10/18 aspirin (aspirin 81 mg tablet, enteric coated) 81 m g PO Daily 04/09/18 docusate (Colace 100 mg oral capsule) 100 mg PO BID 04/16/18 gabapentin (gabapentin 300 mg oral capsule) 300 mg PO BID 04/08/18 heparin (heparin 5000 units/mL injectable solution) 5,000 unit SUB-Q Q8H 04/10/18 isosorbide mononitrate (Imdur) 30 mg PO QAM 04/09/18 labetalol 100 mg PO Q12H 04/16/18 lidocaine topical (lidocaine topical patch (5 % film)) 1 patch TOP Q24H 04/15/18 methadone 5 mg PO Q6H 04/09/18 methocarbamol (Robaxin) 1,000 mg PO Q8H 04/14/18 pantoprazole (Protonix) 40 mg PO Before Dinner 04/10/18 polyethylene glycol 3350 (MiraLax) 17 gm PO BID 04/09/18 pravastatin 80 mg PO Bedtime 04/08/18 predniSONE 5 mg PO Daily 04/17/18 remove patch 1 patch TOP Q24H 04/17/18 tacrolimus (Prograf) 0.5 mg PO QAM 04/16/18 tacrolimus (Prograf) 1 mg PO QPM 04/12/18 tamsulosin (Flomax) 0.4 mg PO After Dinner 04/10/18 torsemide 20 mg PO Daily 04/16/18 tramadol (tramadol 50 mg oral tablet) 50 mg PO Q6H PRN Meds (16): 04/09/18 ALPRAZOLam (Xanax 0.5 mg oral tablet) 0.5 mg PO Bed time 04/09/18 Dextrose 50% in Water IV (Dextrose 50% Syringe) 12. 5 gm IVP PRN 04/09/18 Dextrose 50% in Water IV (Dextrose 50% Syringe) 25 gm IVP PRN 04/09/18 Insulin regular 1 unit SUB-Q TID-Before Meals 04/09/18 Insulin regular 2 unit SUB-Q TID-Before Meals 04/09/18 Insulin regular 3 unit SUB-Q TID-Before Meals 04/09/18 Insulin regular 4 unit SUB-Q TID-Before Meals 04/09/18 Insulin regular 5 unit SUB-Q TID-Before Meals 04/09/18 Insulin regular 1 unit SUB-Q Bedtime 04/09/18 Insulin regular 2 unit SUB-Q Bedtime 04/09/18 Insulin regular 3 unit SUB-Q Bedtime 04/09/18 Insulin regular 4 unit SUB-Q Bedtime 04/09/18 glucagon 1 mg IM PRN 04/09/18 oxyCODONE (oxyCODONE 5 mg immediate release) 5 mg P O Q4H 04/13/18 simethicone 80 mg CHEW TID 04/07/18 sodium chloride (Saline Flush 0.9%) 10 mL IVP PRN Assessment and Plan: 72 year old M status post Fall. Injuries and plan as follows : Traumatic Injuries: Consults/Plan: 1. Right 3-10 rib fx (6-9 displaced) 1. VEP/IS. MMP, wean O2 as tolerated 2. Right small anterior PTX 2. CXR stable. VEP/IS 3. Right pulmoary contusion 3. VEP/IS 4. Right T9-T10 TP fx 4. NTD 5. Right flank SQ emphysema and ecchymos is. 5. VEP/IS, CXR 6. Left pleural effusion, moderate 6. VEP/IS. will continue home diuretic Tertiary findings for outpatient follow-up: 7. Hepatic hilar 3.1 cm mildly hyperatt enuating cystic lesion could represent a complex cyst. Mild bilobar intrahepatic biliary dilation, which could at least be partly related to postcholecystectomy status. MRI/MRCP would better evaluate. 8. 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 Ectasia of the ascending aorta. 9. Severe calcific atherosclerosis. 10. Cardiomegaly. Additionally, - acute trauma pain: improved; APMS- R s erratus block x2; continue robaxin, renal dose gabapentin, increasing to 300 mg BID (04/16); methadone; adding tramadol 50 mg q6h and lidocaine patch (04/16) - hx heart transplant (2006), CAD, CHF, DM, CKD IV, HTN, HLD: home meds resumed: ASA, statin, labetalol, imdur, torsemide, prograf, prednisone. will introduce other meds when applicable. placed on ISS given minimal oral intake. if FSBS incre ase, will start home insulin. Prograf level 4.3 today (level goal is 4-6, two years post transplant). pharm monitoring, rechecking prograf levels (04/18). - acute on chronic kidney disease, stage IV: baseline 1.8. avoid nephrotoxic meds. Creat decreased to 2.03 after gentle IV hydration 04/13. Today, Cr 1.65 (04/16). - E. coli complicated UTI - resolved - f osfomicin due to especiation, last dose 04/15 - decreased functional mobility: daily P T-ambulation is dependent on pain control - acute hypoxia: wean O2 for sats > 92%, VEP/IS-improving - Nocturnal polyuria: PVR 139, continue flomax - Hyperkalemia: 4.9 today (04/17), AM BMP - Diarrhea: d/c laxatives, improving Plan: wean methadone to 5 mg q8h 04/17. Patient will be able to be d/michelle to home with when pain is controlled. Follow UP: 1. PCP: 1 week for f/u on tertiary findings. Familia Clark MD General Surgery PGY-1 [id number] Addendum by Rudy Mariscal MD on 04/18/2018 12:42 ATTENDING ATTESTATION: I HAVE SEEN AND EXAMINED THE PATIENT WITH ON 04/17/18 . I HAVE REVIEWED THE PATIENT'S FILMS, LABORATORY VALUES, AND VITAL SIGN TRENDS. I AGREE WITH THE ABOVE ASSESSMENT AND PLAN. Extracted from:Title: APMS Consult Note Author: Rebecca Taylor DO Date: 04/10/18 Patient: TAQUERIA JENKINS Age: 72 years Sex: Male : 1945 Associated Diagnoses: None Author: Rebecca Taylor DO Basic Information Referral source Reason for consultation: Complex Acute Pain Chief Complaint Acute pain in ribs History of Present Illness 72 year old male with PMH of CAD, CHF, D M, CKD IV, HTN presents s/p fall from a ladder about 8 feet. He sustained multiple right sided rib fractures, and small right pneumothorax, and multiple TP fract ures. APMS is consulted for management of rib pain. Histories Past Medical History: No active or resolved past medical histo ry items have been selected or recorded. Family History: No family history items have been selected or recorded. Procedure history: No active procedure history items have been selected or yeyo rded. Social History Social and Psychosocial Habits Tobacco 04/07/2018 Use: Never smoker Exposure to Tobacco Smoke None Cigarette Smoking Last 365 Days No Reg Smoking Cessation Counseling No . Health Status Allergies: Allergic Reactions (Selected) Severity Not Documented NKDA- No reactions were documented., Allergies (1) Active Reaction NKDA None Documented Current medications: (Selected) Inpatient Medications Ordered Bactrim DS 800 mg- 160 mg oral tablet: 1 tab, PO, [id number] Colace 100 mg oral capsule: 100 mg, 1 cap, PO, BID Dextrose 50% Syringe: 12.5 gm, 25 mL, IVP, PRN, PRN: Blood G lucose Results Dextrose 50% Syringe: 25 gm, 50 mL, IVP, PRN, PRN: Blood Glu cose Results Dulcolax Laxative: 10 mg, 1 supp, HI, Daily, PRN: Constipati on Imdur: 30 mg, 1 tab, PO, QAM Insulin regular: 1 unit, 0.01 mL, SUB-Q, Bedtime, PRN: Blood Glucose Results Insulin regular: 1 unit, 0.01 mL, SUB-Q, TID-Before Meals, PRN: Blood Glucose Results Insulin regular: 2 unit, 0.02 mL, SUB-Q, Bedtime, PRN: Blood Glucose Results Insulin regular: 2 unit, 0.02 mL, SUB-Q, TID-Before Meals, PRN: Blood Glucose Results Insulin regular: 3 unit, 0.03 mL, SUB-Q, Bedtime, PRN: Blood Glucose Results Insulin regular: 3 unit, 0.03 mL, SUB-Q, TID-Before Meals, PRN: Blood Glucose Results Insulin regular: 4 unit, 0.04 mL, SUB-Q, Bedtime, PRN: Blood Glucose Results Insulin regular: 4 unit, 0.04 mL, SUB-Q, TID-Before Meals, PRN: Blood Glucose Results Insulin regular: 5 unit, 0.05 mL, SUB-Q, TID-Before Meals, PRN: Blood Glucose Results MiraLax: 17 gm, 1 pkt, PO, BID Robaxin: 500 mg, 1 tab, PO, Q8H Saline Flush 0.9%: 10 mL, IVP, PRN, PRN: Line Flush Xanax 0.5 mg oral tablet: 0.5 mg, 1 tab, PO, Bedtime, PRN: S leep Xanax 0.5 mg oral tablet: 0.5 mg, 1 tab, PO, TID, PRN: Anxie ty acetaminophen: 1 gm, 2 tab, PO, Q6H-02 aspirin 81 mg tablet, enteric coated: 81 mg, 1 tab, PO, Sima y gabapentin: 300 mg, 1 cap, PO, Q8H glucagon: 1 mg, IM, PRN, PRN: Blood Glucose Results heparin 5000 units/mL injectable solution: 5,000 unit, 1 mL, SUB-Q, Q8H labetalol: 100 mg, 1 tab, PO, Q12H oxyCODONE 5 mg immediate release: 5 mg, 1 tab, PO, Q4H, PRN: Pain Score 7-10 oxyCODONE 5 mg oral tablet: 5 mg, 1 tab, PO, Q6H pneumococcal 13-valent vaccine: 0.5 mL, IM, ONCALL pravastatin: 80 mg, 4 tab, PO, Bedtime predniSONE: 5 mg, 1 tab, PO, Daily senna: 17.2 mg, 2 tab, PO, BID tacrolimus: 0.5 mg, 1 cap, PO, [id number] torsemide: 20 mg, 1 tab, PO, Daily Documented Medications Suspended ALPRAZOLam 0.5 mg oral tablet: 0.5 mg, 1 tab, PO, Daily, 0 R efill(s) Ferrousal 325 mg oral tablet: 325 mg, 1 tab, PO, Daily, 0 Re fill(s) Fish Oil 1000 mg oral capsule: 1,000 mg, 1 cap, PO, BID, 0 R efill(s) NexIUM 20 mg oral delayed release capsule: 20 mg, 1 ca p, PO, Daily, 0 Refill(s) NovoLIN 70/30: 18 unit, SUB-Q, QAM, 0 Refill(s) NovoLIN 70/30: 24 unit, SUB-Q, QPM, 0 Refill(s) Singulair 10 mg oral tablet: 10 mg, 1 tab, PO, PRN, 0 Refill (s) allopurinol 100 mg oral tablet: 100 mg, 1 tab, PO, BID, 0 Re fill(s) amLODIPine 5 mg oral tablet: 5 mg, 1 tab, PO, Daily, 0 Refil l(s) aspirin 81 mg tablet, chewable: 81 mg, 1 tab, CHEW, Daily, 0 Refill(s) calcium-vitamin D 600 mg-400 intl units oral tablet: 1 tab, PO, BID, 0 Refill(s) folic acid 1 mg oral tablet: 1 mg, 1 tab, PO, Daily, 0 Refil l(s) gabapentin 300 mg oral capsule: 300 mg, 1 cap, PO, TID, 0 Re fill(s) isosorbide mononitrate 30 mg oral tablet , extended release: 30 mg, 1 tab, PO, QAM, 0 Refill(s) labetalol 100 mg oral tablet: 100 mg, 1 tab, PO, BID, 0 Refi ll(s) magnesium oxide 400 mg oral tablet: 400 mg, 1 tab, PO, BID, 0 Refill(s) metolazone 2.5 mg oral tablet: 2.5 mg, 1 tab, PO, Daily, 0 R efill(s) multivitamin: Daily, 0 Refill(s) potassium chloride 10 mEq oral tablet, e xtended release: 10 mEq, 1 tab, PO, Daily, 0 Refill(s) pravastatin 80 mg oral tablet: 80 mg, 1 tab, PO, Daily, 0 Re fill(s) predniSONE 5 mg oral tablet: 5 mg, 1 tab, PO, Daily, 0 Refil l(s) tacrolimus 0.5 mg oral capsule: 0.5 mg, 1 cap, PO, Q12H, 0 R efill(s) tamsulosin 0.4 mg oral capsule: 0.4 mg, 1 cap, PO, Daily, 0 Refill(s) thiamine 100 mg oral tablet: 100 mg, 1 tab, PO, Daily, 0 Ref ill(s) torsemide 20 mg oral tablet: 20 mg, 1 tab, PO, BID, 0 Refill (s), Medications (34) Active Scheduled: (17) acetaminophen 500 mg TAB 1 gm 2 tab, PO, Q6H-02 aspirin 81 mg ECT 81 mg 1 tab, PO, Daily docusate sodium 100 mg CAP 100 mg 1 cap, PO, BID gabapentin 300 mg CAP 300 mg 1 cap, PO, Q8H heparin 5000 unit/1 ml INJ VL 5,000 unit 1 mL, SUB-Q, Q8H isosorbide mononitrate 30 mg ERT 30 mg 1 tab, PO, QAM labetalol hcl 100 mg TAB 100 mg 1 tab, PO, Q12H methocarbamol 500 mg TAB 500 mg 1 tab, PO, Q8H oxyCODONE IR 5 mg TAB 5 mg 1 tab, PO, Q6H pneumococcal 13-valent conjugate vaccine SUSP 0.5 mL, IM, O NCALL polyethylene glycol 17 gm packet 17 gm 1 pkt, PO, BID pravastatin 20 mg TAB 80 mg 4 tab, PO, Bedtime predniSONE 5 mg TAB 5 mg 1 tab, PO, Daily senna 8.6 mg TAB 17.2 mg 2 tab, PO, BID tacrolimus 0.5 mg CAP 0.5 mg 1 cap, PO, [id number] torsemide 20 mg TAB 20 mg 1 tab, PO, Daily trimethoprim-sulfamethoxazole DS TAB 160-800mg 1 tab, PO, A BXQ12H Continuous: (0) PRN: (17) ALPRAZolam 0.5 mg TAB 0.5 mg 1 tab, PO, Bedtime ALPRAZolam 0.5 mg TAB 0.5 mg 1 tab, PO, TID bisacodyl 10 mg rect SUPP 10 mg 1 supp, HI, Daily Dextrose 50% 50 ml INJ syringe 12.5 gm 25 mL, IVP, PRN Dextrose 50% 50 ml INJ syringe 25 gm 50 mL, IVP, PRN glucagon recombinant 1 mg PDR 1 mg, IM, PRN insulin reg human rec 100 unit/ml INJ 3 ml Vial 1 unit 0.01 mL, SUB-Q, TID- Before Meals insulin reg human rec 100 unit/ml INJ 3 ml Vial 2 unit 0.02 mL, SUB-Q, TID- Before Meals insulin reg human rec 100 unit/ml INJ 3 ml Vial 3 unit 0.03 mL, SUB-Q, TID- Before Meals insulin reg human rec 100 unit/ml INJ 3 ml Vial 4 unit 0.04 mL, SUB-Q, TID- Before Meals insulin reg human rec 100 unit/ml INJ 3 ml Vial 5 unit 0.05 mL, SUB-Q, TID- Before Meals insulin reg human rec 100 unit/ml INJ 3 ml Vial 1 uni t 0.01 mL, SUB-Q, Bedtime insulin reg human rec 100 unit/ml INJ 3 ml Vial 2 uni t 0.02 mL, SUB-Q, Bedtime insulin reg human rec 100 unit/ml INJ 3 ml Vial 3 uni t 0.03 mL, SUB-Q, Bedtime insulin reg human rec 100 unit/ml INJ 3 ml Vial 4 uni t 0.04 mL, SUB-Q, Bedtime oxyCODONE IR 5 mg TAB 5 mg 1 tab, PO, Q4H sodium chloride 0.9% 10 ml flush syr BD 10 mL, IVP, PRN Problem list: No qualifying data available Review of Systems Constitutional: No fever, No chills. Cardiovascular: Chest pain: right sided. Ear/Nose/Mouth/Throat: Negative. Respiratory: No shortness of breath, No cough. Gastrointestinal: No nausea, No vomiting. Genitourinary: No dysuria, No hematuria. Musculoskeletal: Negative. Neurologic: Alert and oriented X4. Psychiatric: No anxiety, No depression. Endocrine: Negative. Hematology/Lymphatics: Negative. Physical Examination VS/Measurements Vital Signs (last 24 hrs) Last Charted _ Temp Oral 98.1 DegF (APR 10 16:00) Heart Rate Apical 89 bpm (APR 10 18:) Resp Rate 14 BRMIN (APR 10:) SBP 130 mmHg (APR 10:) DBP 69 mmHg (APR 10:) SpO2 97 % (APR 10:) General: Alert and oriented. Eye: Pupils are equal, round and reactive to light. Neck: Supple, Non-tender. Respiratory: decresed breath sounds on the right. Cardiovascular: Normal rate. Gastrointestinal: Soft, Non-tender. Genitourinary: No costovertebral angle tenderness. Integumentary: Warm, Dry. Neurologic: Alert, Oriented. Review / Management Results review: Labs (Last four charted values) WBC 8.2 (APR 09) H 12.2 (APR 07 ) Hgb L 12.3 (APR 09) L 12.2 (APR 07) Hct L 37.3 (APR 09) L 36.9 (APR 07) Plt L 114 (APR 09) 150 (APR 07) Na 142 (APR 10) 144 (APR 09) 144 (APR 07) K 4.5 (APR 10) 4.6 (APR 09) 4.8 (APR 07) CO2 31 (APR 10) 31 (APR 09) 32 (APR 07) Cl 103 (APR 10) 104 (APR 09) 107 (APR 07) Cr 1.40 (APR 10) H 1.51 (APR 09) H 2.22 (APR 07) BUN 21 (APR 10) H 23 (APR 09) H 33 (APR 07) Glucose Random H 115 (APR 10 ) H 141 (APR 09) H 120 (APR 07) Ca L 8.2 (APR 10) 8.9 (J 14) 8.9 (APR 07) PT H 15.2 (APR 07) INR H 1.19 (APR 07) PTT 29.3 (APR 07) . Chest x-ray results ECG interpretation Impression and Plan Diagnosis Rib pain on right side ([id number] R07.81, Working, Medical). Course: Worsening. Orders Diagnosis Rib pain on right side ([id number] R07.81, Working, Medical). Course: Worsening. Education and Follow-up: Counseled : Regarding treatment, Regarding medications. 72 year old male with PMH of CAD, CHF, D M, CKD IV, HTN presents s/p fall from a ladder about 8 feet. He sustained multiple right sided rib fractures, and small right pneumothorax, and multiple TP fract ures. APMS is consulted for management of rib pain. -Right serratus block with exparel performed on -APMS will continue to follow. Call [phone] with questions Addendum by Jackelyn Barajas MD on 04/15/2018 15:27 Teaching Addendum: I saw and personally examined the patien t and discussed the plan of care with the resident. I was physically present for the johns portions of the procedure. Extracted from:Title: Trauma Surgery History and Physical Author: Abbie Estrada MD Date: 04/08/18 [facility] Trauma Surgery History and Pysical Date of Admission:04/07/2018 Admitting Trauma Surgeon: Dr. Lo Time of Initial Patient Assessment: 0203 Chief Complaint: "I fell off a ladder" History of Present Illness: 72 year old male who presents as a traum a consult s/p fall. Patient states he was cutting a board on a ladder and fell 6-8 feet. -LOC. On initial evaluation, primary survey is intact, GCS 15. VS BP 13 4/70, HR 93, RR 26, SpO2 94%. Secondary survey revealed abrasions to left upper extremity, bilateral upper extremity ecchymosis and back ecchymosis. Labs were significant WBC 12.2, Cr 2.2, lactic acid 0.8, TEG normal. Past Medical History: 1. CAD 2. CHF 3. DM 4. CKD IV 5. HTN 6. HLD Past Surgical History: 1. OHT 2006 2. CAD 3. Cholecystectomy 4. Cataracts Home Medications: 1. Tacrolimus 0.5mg BID 2. Prednisone 5mg daily 3. Novolin 70/30m 18/24units BID 4. ASA 81 daily 5. Allopurinol 6. Prevastatin 7. Nexium 8. Labetalol 9. Amlodipine 10. Gabapentin 11. Torsemide 12. Metolazone 13. Isosorbide 14. Tamsulosin 15. Folic acidd 16. Mag-Oxide 17. Calcium/Vitamin D 18. Thiamine 19. Fish oil 20. Potassium Allergies: NKDA Social History: Alcohol Denies Tobacco Denies Drug use Denies Family History: Non contributory Review of Systems: Constitutional: Negative for fevers, chils, weight loss Eyes: Negative for change in vision, blurry vision, double v ision Ears/Nose/Throat: Negative for changes in hearing CV: Negative for chest pain, palpitations, lower extremity e letty Resp: Positive for shortness of breath. Negative for cough, hemoptysis GI: Negative for abdominal pain, nausea, vomiting, diarrhea, constipation, blood in stool : Negative for hematuria, dysuria MSK: Right chest wall and back pain Skin: Negative for rashes, lesions, itching Neuro: Negative for headache, numbness, tingling, weakness Physical Examination Vitals Tmp(F) Pulse BP RR SpO2 FIO2 04/08 00:02 ---- 92 139/65 20 99 --- 04/07 23:45 ---- 93 138/71 20 99 --- 04/07 23:34 ---- 92 148/67 20 99 --- 04/07 23:19 ---- 92 133/79 22 99 --- 04/07 23:10 97.6 94 128/75 18 95 --- 24 Hr Tmax: 97.6F (36.44c) at 04/07 23:1 0 Vital Signs are the last 5 in the past 48 hours. Neuro: Awake, alert and oriented x3, GCS 15 Head: No abrasions, laceration, hematoma or deformity Eyes: Pupils 3mm, PERRLA, EOM intact TMs: No blood in external auditory canal, periauricular ecch ymosis Nose/throat: No abrasions, lacerations Neck: Soft, trachea midline. No abrasions, lacerations Chest: No abrasions, lacerations or crepitus. Equal chest ri se. IS 500ml Abdomen: Soft, non tender, non distended. Pelvis: Stable, non tender Genital: Normal external genitalia Back: No stepoffs or point tenderness. Back ecchymosis Extremities: LUE abrasions, BUE ecchymosis Vascular: 2+ radial, femoral, DP/PT bilaterally 24hr Labs 04/08 0427 Temp Phil 37.0 pH Phil 7.34 pCO2 Phil 60 H pO2 Phil 50 H HCO3 Phil 32 H BE Phil 5 H O2 Sat Phil 82.5 H 04/08 0020 UA Color Yellow UA Turbidity Slight Cloudy UA Spec Grav 1.025 UA pH 5.5 UA Protein 30 UA Glucose Negative UA Ketones Negative UA Bili Negative UA Blood Large UA Urobilinogen 0.2 UA Nitrite Negative UA Leuk Est Negative UA RBC 21-50 UA WBC 1-3 UA Bacteria Few UA Sq Epi Occasional UA Coarse Gran 6-10 UA Hyal Cast 6-10 04/07 2350 ABO/Rh A POS Antibody Scrn Negative 04/07 2341 Temp Phil 37.0 pH Phil 7.25 L pCO2 Phil 78 H pO2 Phil 37 HCO3 Phil 34 H BE Phil 4 H O2 Sat Phil 60.1 Glucose Lvl 120 H BUN 33 H Creatinine Lvl 2.22 H Sodium Lvl 144 Potassium Lvl 4.8 Chloride Lvl 107 CO2 32 AGAP 9.8 L Calcium Lvl 8.9 eGFR 28 Lactic Acid Lvl 0.8 Total Protein 7.0 Albumin Lvl 3.7 Bili Total 0.7 Bili Direct 0.1 Bili Indirect 0.6 Alk Phos 65 AST 60 H ALT 46 Globulin 3.3 A/G Ratio 1.1 Ethanol Lvl <3 Etoh (%) <.003 WBC 12.2 H RBC 3.79 L Hgb 12.2 L Hct 36.9 L MCV 97.2 H MCH 32.2 H MCHC 33.1 RDW 15.0 H Platelet 150 MPV 9.4 Segs 80.4 H Monocytes 7.8 Lymphocytes 11.3 L Eosinophils 0.2 Basophils 0.3 Segs-Bands # 9.8 H Lymphocytes # 1.4 Monocytes # 0.9 H PTT 29.3 PT 15.2 H INR 1.19 H ACT (TEG) Rapid 97 [place] Rapid 0.4 R-time Rapid 0.5 K-time Rapid 1.2 Angle Rapid 76 Max Amplitude Rapid 62 G-value Rapid 8.1 Estimated % Lysis Rapi 1.1 Radiology: Imaging Studies (last 36 hours) Chest/Abdomen/Pelvis w IV contrast CT 04/08/2018 04:04 Impression: 1. Right lower lobe pulmonary contusion with probable small lacerations. 2. Small right anterior pneumothorax and small right hemoth orax. 3. Mildly displaced right posterior 6th -9th rib fractures. Nondisplaced right posterior 10th rib fracture, posteromedial right seventh and eighth rib fractures, and anterior right 3-5 rib fractures. 4. Right T9 transverse process minimall y displaced fracture. Possible right T10 transverse process fracture. 5. Soft tissue contusion and subcutaneo us emphysema in the right lower lateral flank. Mild soft tissue contusion in the left hip. 6. Hepatic hilar 3.1 cm mildly hyperatt enuating cystic lesion could represent a complex cyst. Mild bilobar intrahepatic biliary dilation, which could at least be partly related to postcholecystectomy status. MRI/MRCP would better evaluate. 7. 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 Ectasia of the ascending aorta. 8. Severe calcific atherosclerosis. 9. Cardiomegaly. Spine cervical wo contrast CT (ER) 04/08/2018 03:59 Impression: No acute fracture or malalignment of the cervical spine. Chest 1view DX 04/08/2018 01:06 Impression: 1. Right lower lung airspace opacity could represent pulmon sonja contusion. 2. Right posterior sixth-ninth rib fractures. 3. Blunting of the left costophrenic nguyen lcus may be related to pleural fluid/thickening. 4. Subsegmental atelectasis and/or scarring in the left vignesh g base. 5. Mild cardiomegaly. Assessment and Plan: 72 year old male who presents as a traum a consult s/p fall. Patient states he was cutting a board on a ladder and fell 6-8 feet. -LOC. On initial evaluation, primary survey is intact, GCS 15. VS BP 13 4/70, HR 93, RR 26, SpO2 94%. Secondary survey revealed abrasions to left upper extremity, bilateral upper extremity ecchymosis and back ecchymosis. Labs were significant WBC 12.2, Cr 2.2, lactic acid 0.8, TEG normal. Injuries and plan as follows: Injuries: 1. Right 3-10 rib fx 2. Right PTX 3. Right pulmoary contusion 4. Right T9-T10 TP fx 5. Right fland SQ emphysema Consults/Plan: 1-3. f/u AM CXR. IS, VEP, MMPC 4. MMPC 5. Continue to monitor. AM CXR Additionally, - Admit to SIMU - h/o OHT, resumed immunosuppresion (Prednisone and Prograf) - AM CXR - AM Tertiary - Randomized to MAST 2 Abbie Estrada MD MSO [id number] TRAUMA ATTENDING ATTESTATION: I saw and examined the patient with Dr Felipe clayton, reviewed all available labs and imaging, and agree with the assessment and plan as written above, with the following additions/comments: Acute traumatic pain - will initiate MMP and evaluate for resolution, adjusting medications as indicated Multiple acute traumatic rib fractures - MMP and VEP Right pulmonary contusion - VEP, monitor IS - 200 in Trauma [place] Resume home medications Viri Lo MD [id number] DOS: 04/08/18 Plan of Care No Data Provided for This Section Social History Social History Date Source Social History TypeResponse 04/08/2018 [facility] Smoking Status Never smoker; Exposure to Tobacco Smoke None; Cigarette Smoking Last 365 Days No; Reg Smoking Cessation Counseling No entered on: 04/07/18 Family History No Data Provided for This Section Advance Directives No Data Provided for This Section Functional Status No Data Provided for This Section
--- OUTSIDE RECORDS SUMMARY | 2020-07-10 09:59 | XMS REPORT | Continuity of Care Document ---
:1945 Author Organization [facility] t Address [address] [place] [address] Care Team Providers Name Role Phone Blanche, Lily Primary Care Physician Minal BLANK Attending Clinician Kaushik BLANK Attending Clinician Matthieu LAWRENCE Attending Clinician Unavailable PABLO Attending Clinician Unavailable Niles Mcnair MD Attending Clinician Jessie LAWRENCE Attending Clinician Unavailable Kerrie BLANKENSHIP Attending Clinician Unavailable Hany Maloney MD Attending Clinician Judd TODD Attending Clinician Unavailable Urbano TODD Attending Clinician Unavailable Zacarias Spicer MD Attending Clinician Aquiles Hernandez MD Attending Clinician Leeanne HUNTER Attending Clinician Navi TODD Attending Clinician Unavailable Francisca TODD Attending Clinician Unavailable Bishop Yeboah MA Attending Clinician Unavailable Urbano TODD Attending Clinician Unavailable Xavi BLANK Attending Clinician Kelsi TODD Attending Clinician Unavailable Sabino TODD Attending Clinician Unavailable Chris Epstein MD Attending Clinician ELO TAYLOR Attending Clinician Unavailable Leti Lo Attending Clinician NAYAN Admitting Clinician Unavailable ELO TAYLOR Admitting Clinician Unavailable Leti Lo Admitting Clinician Payers Payer Name Policy Type Policy Effective Date Expiration Date Sour ce Number MEDICAREMEDICARE PART [id number] 1997 Dajuan winter A AND 00:00:00 Evangelical [place]cvrnsEX912[place] HORIZONSSECURE [id number] 2008 [place] HORIZONS MED 00:00:00 Evangelical [id number]-PresentCommercial Problems Condition Condition Condition Status Onset Resolution Last Treating Co mments Source Name Details Category Date Date Treatment Clinician Date Osteopenia Osteopenia Disease Active [place] of of 8 Methodi multiple multiple 00:00: st sites sites 00 Vitamin D Vitamin D Disease Active [place] deficiency deficiency 05-07 Me thodi 00:00: st 00 Headaches Headaches Disease Active Overview: [place] due to old due to old 04-10 Followed Methodi head head 00:00: by st injury injury 00 Neurology Post 2017 fall with concussio n and subsequen t memory losses. 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 10-27 Added Meth susan vasculopat vasculopat 00:00: automatic st hy hy 00 ally from request for surgery [id number] Subclinica Subclinica Disease Active H librado l l 9 Methodi hypothyroi hypothyroi 00:00: st dism dism 00 Closed Closed Disease Active Overview: Masha n fracture fracture 8-06 Multiple Meth susan of of 00:00: Rib Fx st multiple multiple 00 from fall ribs of ribs of from right side right side ladderhos p 5 plus days at local hospital MULTIPLE Diagnosis Active 2018-04-27 Bishop granado RIGHT 04-07 22:11:00 l SIDED RIB MULTIPLE 00:00: Her aguirre FX RIGHT 00 SIDED RIB FX Active 8 [facility] GO Diagnosis Active 2018-04-07 Billie BILLING/ 04-07 23:03:00 l LFLT #3435 00:00: Brent STILES 00 BILLING/ LFLT #3435 Active 04/07/2018 [facility] Diarrhea Diarrhea Disease Active [place] 02-25 Methodi 00:00: st 00 Cellulitis Cellulitis Disease Active [place] - Methodi 00:00: st 00 Chest pain Chest pain Disease Active 2016-09 [place] 10-05 Methodi 00:00: st 00 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 [place] unspecifie unspecifie 8-16 Me thodi d type d type 00:00: st diabetes diabetes 00 mellitus mellitus without without mention of mention of complicati complicati on, on, uncontroll uncontroll ed ed Malignant Malignant Disease Active Jagu[place] bedolla hypertensi hypertensi 8-16 Me thodi ve heart ve heart 00:00: st and kidney and kidney 00 disease disease 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 Rapamune intoleran ce. 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 FK 1 mg BID ; MMF 500 mg BID ; Prednison e 5Failed Rapamune attempt twiceDSA recdDate Type I Type II 11/08/2017 Cw5 3684 DP11 4641 10/12/2016 Cw5 3100 DP11 3154 11/15/2015 Cw5 4887 DP11 2993 Diabetes Diabetes Disease Active Overview: Dajuan winter mellitus mellitus 02-25 Diabetic/ Met hodi 00:00: hyperlipi st demia/ost eopenia Followed by Dr. Mas pentin 300 mg TID for neuropath yNovolog 70/30 Diabetic Diabetic Disease Active [place] neuropathy neuropathy 02-25 Me thodi 00:00: st 00 Disorder Disorder Disease Active [place] of heart of heart 02-25 Method i transplant transplant 00:00: st ation ation 00 High High Disease Active [place] Lipase Lipase 02-25 Methodi Level in Level in 00:00: st Serum Serum 00 Kidney Kidney Disease Active Hernandez disorder disorder 02-25 Method i 00:00: st 00 Low back Low back Disease Active [place] pain pain 02-25 Methodi 00:00: st 00 Obstructiv Obstructiv Disease Active [place] e sleep e sleep 02-25 Methodi apnea apnea 00:00: st syndrome syndrome 00 Pain of Pain of Disease Active Overview: [place] lower lower 02-25 Chronic Methodi extremity extremity 00:00: in st natureNeu ropathic and associate d with chronic back & hip & siatica Abnormal Abnormal Disease Active [place] thyroid thyroid 02-25 Methodi stimulatin stimulatin 00:00: st g hormone g hormone 00 (TSH) (TSH) level level Chronic Chronic Disease Active Overview: [place] kidney kidney 11-14 Demadex Methodi disease, disease, 00:00: 20 st stage V stage V 00 dailyMeto lazone 2.5 -5 prn Disorder Disorder Disease Active [place] of of 11-14 Methodi endocrine endocrine 00:00: st system system 00 Heart Heart Disease Active Overview: Masha n transplant transplant 11-14 Formattin Methodi ed ed 00:00: g of this note might be different from the original. 09/29/2006 Heart Transplan tFK 1 mg Q 12; Prednison e 5Does not tolerate Rapamune. Failed prednison e wean.Visi t Date biopsy C4D Treatment Echo CMV Level Annual Year 11/21/18 LHC clear BNP 155, SCr 1.87, GFR 34, Chol 141,osteo penia, clear coronarie s on cath 60-64 neg 6.6 Clinic 01/09/19 Post local HOSP (5 days) Influenza & pneumonia [id number]; SCr 1.89 3.8 Clinic 02/06/19 C/O memory loss SCr 2.03 4.4 Clinic 03/28/19 AlloMapBX waved 36 C/O Chest pain-poss ible pinched nerve or muscle strain suspected per assessmen t.BNP 250,Trop <0.006, Scr 2.09, Neuro followup; if cont .. 65-69 neg 6.7 Annual Y-13 11/08/19 PET35% LM No iscemia BNP 184, SCr 1.8/GFR 36 , HA1c 7.1, Chol 147 Cath canceled- >PET; Dex Ostepeia, Renal 7 liver cyst; follow up with Chrissy Maloney Ho, & man gy EF 70%Pos Cw5 neg 4.7 12/27/19 Patient treated as out pt. For fluid over-load . Zaroxolyn 5mg x2 days and pt doing better GI Notes 02/08/20 EGD & [place] Performed ; multiple polyps but no carcinoma Delayed stomach emptying noted. Additiona l testing for gastropar esis ordered. 05/20/20 Clinic HLD HLD Disease Active Overview: [place] (hyperlipi (hyperlipi 2-18 Diabetic/ Methodi demia) demia) 00:00: hyperlipi st 00 demia/ost eopeniaFi sh Oil - omega 3 1999 BIDPravas tain 80 Obesity, Obesity, Disease Active [place] diabetes, diabetes, 2-18 Meth suasn and and 00:00: st hypertensi hypertensi 00 on on syndrome syndrome Adiposity Adiposity Disease Active [place] 2-18 Methodi 00:00: st 00 Testicular Testicular Disease [facility] hyp[facility]unct[facility] hypofuncti 2-18 Me thodi on on 00:00: st 00 Uncontroll Uncontroll Disease Active [facility] ed type 2 ed type 2 2-18 Meth susan diabetes diabetes 00:00: st mellitus mellitus 00 Candidiasi Candidiasi Disease Active 2011-09 H librado s of mouth s of mouth 2-07 Me thodi 00:00: st 00 Esophagiti Esophagiti Disease Active 2011-09 [place] s s 2-07 Methodi 00:00: st 00 Ulcer of Ulcer of Disease Active 2011-09 [place] esophagus esophagus 11-03 Meth susan 00:00: st 00 Abdominal Abdominal Disease Active [place] pain pain 03-03 Methodi 00:00: st Candidiasi Candidiasi Disease Active [place] s of s of 03-03 Methodi esophagus esophagus 00:00: st Gastroesop Gastroesop Disease Active [place] hageal hageal 03-03 Methodi reflux reflux 00:00: st disease disease 00 Multiple Problem 2018-11-05 Mem oria fractures 13:12:34 l of ribs, Multiple Herm kris right fractures side, of ribs, initial right encounter side, for closed initial fracture encounter for closed fracture 11/05/2018 [facility] Hypertensi Problem 2018-11-05 M emoria ve heart 13:12:34 l and [place] chronic Hypertensi kidney ve heart disease and with heart chronic failure kidney and stage disease 1 through with heart stage 4 failure chronic and stage kidney 1 through disease, stage 4 or chronic unspecifie kidney d chronic disease, kidney or disease unspecifie d chronic kidney disease 11/05/2018 [facility] Chronic Problem 2018-11-05 Shine sarah kidney 13:12:34 l disease, Chronic Mallorie nn stage 4 kidney (severe) disease, stage 4 (severe) 11/05/2018 [facility] Contusion Problem 2018-11-05 Me moria of lung, 13:12:34 l unilateral Brent n , initial Contusion encounter of lung, unilateral , initial encounter 11/05/2018 [facility] Acidosis Problem 2018-11-05 Mem oria 13:12:34 l Acidosis Brent n 11/05/2018 [facility] Unspecifie Problem 2018-11-05 M emoria d fracture 13:12:34 l of T9-T10 Sae vertebra, Unspecifie initial d fracture encounter of T9-T10 for closed vertebra, fracture initial encounter for closed fracture 11/05/2018 [facility] Acute Problem 2018-11-05 Memor ia kidney 13:12:34 l failure, Acute Sae unspecifie kidney d failure, unspecifie d 11/05/2018 [facility] Acute Problem 2018-11-05 Memor ia posthemorr 13:12:34 l hagic Acute [place] anemia posthemorr hagic anemia 11/05/2018 [facility] Heart Problem 2018-11-05 Memor ia transplant 13:12:34 l status Heart Sae transplant status 11/05/2018 [facility] Urinary Problem 2018-11-05 Shine sarah tract 13:12:34 l infection, Urinary Her aguirre site not tract specified infection, site not specified 11/05/2018 [facility] Atelectasi Problem 2018-11-05 M emoria s 13:12:34 l Sae Atelectasi s 11/05/2018 [facility] Fall on Problem 2018-11-05 Shine sarah and from 13:12:34 l ladder, Fall on Brent n initial and from encounter ladder, initial encounter 11/05/2018 [facility] 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 11/05/2018 [facility] Abrasion Problem 2018-11-05 Mem oria of left 13:12:34 l upper arm, Abrasion He rmann initial of left encounter upper arm, initial encounter 11/05/2018 [facility] Hyperlipid Problem 2018-11-05 M emoria emia, 13:12:34 l unspecifie Brent n d Hyperlipid emia, unspecifie d 11/05/2018 [facility] Traumatic Problem 2018-11-05 Me moria subcutaneo 13:12:34 l us Sae emphysema, Traumatic initial subcutaneo encounter us emphysema, initial encounter 11/05/2018 [facility] Acute pain Problem 2018-11-05 M emoria due to 13:12:34 l trauma Acute Sae pain due to trauma 11/05/2018 [facility] group home Problem 2018-11-05 Me moria (current) 13:12:34 l use of Long Sae insulin term (current) use of insulin 11/05/2018 [facility] Hypoxemia Problem 2018-11-05 Me moria 13:12:34 l [place] Hypoxemia 11/05/2018 [facility] Unspecifie Problem 2018-11-05 M emoria d 13:12:34 l [place] Brent n a coli [E. Unspecifie coli] as d the cause [place] of a coli [E. 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 11/05/2018 [facility] Gastro-eso Problem 2018-11-05 M emoria phageal 13:12:34 l reflux [place] disease Gastro-eso without phageal esophagiti reflux s disease without esophagiti s 11/05/2018 [facility] Hyperkalem Problem 2018-11-05 M emoria ia 13:12:34 l [place] Hyperkalem ia 11/05/2018 [facility] Diarrhea, Problem 2018-11-05 Me moria unspecifie 13:12:34 l d Sae Diarrhea, unspecifie d 11/05/2018 [facility] Contusion Problem 2018-11-05 Or moria of 13:12:34 l abdominal [place] wall, Contusion initial of encounter abdominal wall, initial encounter 11/05/2018 [facility] MULTIPLE Diagnosis Active 2018-04-27 M emoria FRACTURES 22:11:00 l OF RIBS, MULTIPLE Herm kris UNSP SIDE, FRACTURES I OF RIBS, UNSP SIDE, I Active [facility] Traumatic Problem 2018-0 2018-11-05 2018-11-05 Memoria hemopneumo 8-03 13:12:34 13:12:34 l thorax, 03:07: [place] initial Traumatic 22 encounter hemopneumo thorax, initial encounter 04/29/2018 11/05/2018 [facility] Allergies, Adverse Reactions, Alerts Allergy Allergy Status Severity Reaction(s) Onset Inactive Treating Comm ents Source Name Type Date Date Clinician Adhesive Drug Active Other (See 2017-[address] [facility] Allergy Comments) 2-19 SKIN. [place] Luke s - 00:00: WITH Medical 00 P[facility] Brunilda Felix Active Anaphylaxis, 2015- [place] s ty to Swelling 1-10 Methodi adverse 00:00: st reaction 00 s to drug Family History Family Member Diagnosis Comments Start Date Stop Date Source Natural brother Heart disease [place] Natural brother No Known Problems [place] Natural daughter Hypertension [place] Natural daughter Colon cancer [place] Natural father Heart attack [place] [facility] Natural father Heart disease [place] [facility] Natural mother Diabetes [place] Me thodist Natural mother Heart disease [place] [facility] Natural sister Hypertension [place] [facility] Natural son No Known Problems [place] Social History Social Habit Start Date Stop Date Quantity Comments Source History of tobacco Current smoker [place] [facility] use History [facility] B[facility] ethodist Exposure to Not sure [place] Metho dist SARS-CoV-2 (event) Cigarettes smoked 2020-02-26 2020-02-26 [place] Evangelical current (pack per 00:00:00 00:00:00 day) - Reported Cigarette 2020-02-26 2020-02-26 Hernandez Method ist pack-years 00:00:00 00:00:00 Tobacco use and 2020-02-26 2020-02-26 Never used [facility] ethodist exposure 00:00:00 00:00:00 Alcohol intake 2020-02-26 2020-02-26 Current drinker [place] [facility]ical 00:00:00 00:00:00 of alcohol (finding) History SDOH 2019-04-11 2019-04-11 1 [place] Meth odist Alcohol Std Drinks 00:00:00 00:00:00 Tobacco Comment 2019-04-10 2019-04-10 used to smoke 1 [place] [facility] 00:00:00 00:00:00 ppd not since 1987 Alcohol Comment 2018-09-15 2018-09-15 "VERY SELDOM" [facility] 00[facility] Smoking Status Start Date Stop Date Source Former smoker 2020-02-26 00:00:00 2020-02-26 00:00:00 [place] Evangelical Social History [facility] Medications Ordered Filled Start Stop Current Ordering Indication Dosage Frequency Signature Comments Components Source Medication Medication Date Date Medication? Clinician (SIG) Name Name cephalexin 2019-09 2020- Yes 500mg Q.5D Take 1 [place] (Keflex) 0-13 10-18 capsule Methodi 500 MG 00:00: 23:59 ([address] capsule 00 :00 total) by mouth 2 (two) times a day for 5 days. Rt lower leg laceration HYDROcodone 2019-09 Yes acute pain 1{tbl} Q6H Take 1 Hernandez -acetaminop 0-12 tablet by Met autumn hen (NORCO) 14:50: mouth st 5-325 mg 53 every 6 per tablet (six) hours as needed for moderate pain .acute pain. allopurinol 2019-09 Yes 100mg Q.5D Take 100 [place] (ZYLOPRIM) 0-12 mg by Methodi 100 MG 14:50: mouth 2 st tablet 52 (two) times a day. ALPRAZolam 2019-09 Yes .5mg QD Take 0.5 [place] (XANAX) 0.5 0-12 mg by Methodi MG tablet 14:50: mouth st 52 nightly as needed for anxiety. aspirin 2019-09 Yes 81mg QD Take 81 mg [place] (ECOTRIN) 0-12 by mouth Method i 81 MG 14:50: daily. st enteric 52 coated tablet calcium 2019-09 Yes 1{tbl} Q.5D Take 1 [place] carbonate-v 0-12 tablet by Met autumn itamin D3 14:50: mouth 2 st 600 52 (two) mg(1,500mg) times a -200 unit day with per tablet meals. tamsulosin 2019-09 Yes .4mg QD Take 0.4 [place] (FLOMAX) 0-12 mg by Methodi 0.4 mg 14:50: mouth st capsule,ext 52 nightly. ended release 24hr ferrous 2019-09 Yes 325mg QD Take 325 [place] sulfate 325 0-12 mg by Methodi (65 FE) MG 14:50: mouth st tablet 52 daily with breakfast. amLODIPine 2019-09 Yes 5mg QD Take 5 mg [place] (NORVASC) 5 0-12 by mouth Meth susan MG tablet 14:50: daily. st 52 omega 2019-09 Yes 2000mg Q.5D Take 2,000 [place] 3-dha-epa-f 0-12 mg by Methodi juancarlos oil 14:50: mouth 2 st (FISH OIL) 52 (two) 1,000 mg times a (120 mg-180 day. mg) capsule thiamine 2019-09 Yes 100mg QD Take 100 [place] 100 MG 0-12 mg by Methodi tablet 14:50: mouth st 52 daily. finasteride 2019-09 Yes 5mg QD Take 5 mg [place] (PROSCAR) 5 0-12 by mouth Meth susan mg tablet 14:50: nightly. st 52 butalbitaL- 0 2020- No chronic 1{capsu Q.80046130 Take 1 [place] acetaminop- 06-05 10-09 pain le} [id number] capsule by Methodi caf-cod 00:00: 23:[address] 50-300-40-3 00 :00 (three) 0 mg times a capsule day as needed (Headache) for up to 30 days .chronic pain. butalbitaL- 2020- No chronic 1{capsu Q.20473562 Take 1 [place] acetaminop- 9-03 09-09 pain le} [id number] capsule by Methodi caf-cod 00:00: 00:[address] 50-300-40-3 00 :00 (three) 0 mg times a capsule day as needed (Headache) for up to 30 days .chronic pain. sodium,pota Yes USE [place] ssium,mag 05-19 DIRECTED Method i sulfates 00:00: st (Suprep 00 Bowel Prep Kit) 17.5-3.13-1 .6 gram recon soln predniSONE 2020- Yes TAKE 1 AND [place] (DELTASONE) 05-17 08- 1/2 Methodi 5 mg tablet 00:00: 23:[address] 00 :00 DAILY BY MOUTH sertraline 2020- Yes Depression, 50mg QD Take 1 [place] (ZOLOFT) 50 04-18 07-23 unspecified tablet (50 Methodi MG tablet 00:00: 23:59 depression mg total) st 00 :00 type by mouth daily. insulin Yes Uncontrolle USE TO H ougraeme syringe-nee 6-29 d type 2 INJECT Me thodi dle U-100 00:00: diabetes TWICE st (BD Insulin 00 mellitus DAILY Syringe without Ultra-Fine) complicatio 0.5 mL 31 n, with gauge x long-term 02/09" current use syringe of insulin folic acid 2020- No TAKE 1 [place] (FOLVITE) 1 6-16 06-16 TABLET BY Me thodi MG tablet 00:00: 23:[address] 00 :00 EVERY DAY lancets 33 2020-0 Yes DX E11.65 [place] gauge misc 6-10 Patient is Met hodi 00:00: testing st 00 TID. One Touch Verio blood sugar 2020-0 Yes DX E11.65 [place] diagnostic 6-08 Patient is Met hodi strips 00:00: testing st (glucose 00 TID. blood) Please strip test match to strips machine. baclofen 2020-0 Yes Musculoskel 10mg Q.52568640 Take 1 [place] (LIORESAL) 6-02 etal neck [id number] tablet (10 Methodi 10 MG 00:00: pain 3D mg total) st tablet 00 by mouth 3 (three) times a day as needed for muscle spasms. baclofen 2020-0 2020- No Musculoskel 10mg Q.17484917 Take 1 [place] (LIORESAL) 6 06-02 etal neck [id number] tablet (10 Methodi 10 MG 00:00: 00:00 pain 3D mg total) st tablet 00 :00 by mouth 3 (three) times a day as needed for muscle spasms. insulin 2019- 2020- No Q.5D Inject [place] ASPART 5-21 05-21 under the Methodi protamine 12:23: 00:[address] and insulin 04 :00 (two) ASPART times a (NovoLOG day. 8 70/30) 100 units in unit/mL the (70-30) morning 16 insulin pen units at night insulin 2019-0 Yes 12 units [facility] ASPART 5-21 in the Methodi protamine 00:00: morning 20 st and insulin 00 units at ASPART night (NovoLOG 70/30) 100 unit/mL (70-30) insulin pen NovoLIN 2019- Yes INJECT Hernandez 70/30 U-100 5-18 UNDER THE Met hodi Insulin 100 00:00: SKIN 12 st unit/mL 00 UNITS (70-30) EVERY injection MORNING AND 20 UNITS EVERY EVENING metOLazone 2019-2020- No 2.5mg Q.70857515 Take 1 [place] (Zaroxolyn) 4-24 04-24 [id number] tablet Methodi 2.5 MG 00:00: 23:59 3W (2.[address] tablet 00 :00 total) by mouth 3 (three) times a week. Titrate to effect using 2-3 tablets per week as needed. OneTouch 2020-0 2020- No Type 2 TEST 3 [place] Verio strip 4-13 05-13 diabetes TIMES Me thodi test strips 00:00: 00:[address] 00 :00 without complicatio n, without long-term current use of insulin (HCC) potassium Yes TAKE 2 [place] chloride 4-01 TABLETS BY Metho di (K-DUR) 10 00:00: MOUTH st MEQ CR 00 EVERY DAY tablet multivitami 2019- No 1{tbl} QD Take 1 [place] n 3-11 03-11 tablet by Methodi (THERAGRAN) 14:04: 00:[address] tablet 31 :00 daily. sodium,pota 2019- No Use as [place] ston ssium,mag 305-19 directed Metho di sulfates 00:00: 18:[address] (SUPREP 00 :30 physician BOWEL PREP KIT) 17.5-3.13-1 .6 gram recon soln pravastatin Yes TAKE 1 [place] (PRAVACHOL) 2-17 TABLET BY Met hodi 80 MG 00:00: MOUTH st tablet 00 EVERY DAY docusate 2019- No 100mg Q.5D Take 100 [place] sodium 100 2-11 05-14 mg by Methodi mg capsule 00:00: 00:[address] 00 :00 (two) times a day as needed for constipati on. Twice a day gabapentin Yes TAKE 1 [place] (NEURONTIN) 1-17 CAPSULE Metho di 300 mg 00:00: THREE st capsule 00 TIMES DAILY isosorbide Yes TAKE 1 [place] mononitrate 1-15 TABLET BY Met hodi (IMDUR) 30 00:00: MOUTH st MG 24 hr 00 EVERY DAY tablet torsemide Yes TAKE 2 [place] (DEMADEX) 1-15 TABLETS BY Meth susan 20 MG 00:00: MOUTH st tablet 00 EVERY DAY tacrolimus 2020- No .5mg Q.5D Take 1 [place] (PROGRAF) 1-15 01-14 capsule Method i 0.5 MG 00:00: 23:59 (0.[address] capsule 00 :00 total) by mouth 2 (two) times a day. Z94.1 heart transplant magnesium 2018-09- No 400mg Q.5D TAKE 1 [place] oxide 216 12-15 TABLET Methodi (MAG-OX) 00:00: 23:59 ([address] 400 mg 00 :00 TOTAL) BY (241.3 mg MOUTH 2 magnesium) (TWO) tablet TIMES A DAY. labetalol 2018-09- TAKE 1 [place] (NORMODYNE) 16 -14 TABLET BY Me thodi 100 MG 00:00: 00:[address] tablet 00 :00 TWICE A DAY ONETOUCH 2018-09- No Uncontrolle TEST 4 Hernandez DELICA 2-11 03-11 d diabetes TIMES A Met hodi LANCETS 33 00:00: 00:[address] gauge misc 00 :00 type 2 without complicatio ns sertraline 2018-09- No Depression, 50mg QD Take 1 [place] (ZOLOFT) 50 0 07-23 unspecified tablet (50 Methodi MG tablet 00:00: 00:00 depression mg total) st 00 :00 type by mouth daily. ONETOUCH 2019- No DX E11.65 Jaguar PALMER 05-22 05-13 Test Methodi LANCETS 33 00:00: 00:00 glucose 3 s t gauge misc 00 :00 times daily predniSONE 2019- No 7.5mg QD Take 1.5 [place] (DELTASONE) 05-08 08-21 tablets Meth susan 5 mg tablet 00:00: 00:00 (7.[address] 00 :00 total) by mouth daily. Z94.1 Heart Txp S/P sertraline Depression, 50mg QD Take 1 [place] (ZOLOFT) 50 05-04- unspecified tablet (50 Methodi MG tablet 00:00: 00:00 depression mg total) st 00 :00 type by mouth daily. ONETOUCH 2019- No Q.89859244 3 (three) Hernandez VERIO strip 04-20 [id number] times a Methodi test strips 00:00: 00:00 [address]D [address] 00 :00 Testing TID DX: E11.65 trospium 2018-2018- No 20mg Q.5D Take 20 mg [facility] maggy (SANCTURA) 03-10- by mouth 2 Me thodi 20 mg 00:00: 00:00 (two) st tablet 00 :00 times a day. folic acid 2019- No TAKE 1 [place] (FOLVITE) 1 -24 06-16 TABLET BY Me thodi MG tablet 00:00: 00:[address] 00 :00 EVERY DAY magnesium 2019- No 400mg Q.5D Take 1 [place] oxide 5-13 03-11 tablet [facility] (MAG-OX) 00:00: 00:00 ([address] 400 mg 00 :00 total) by (241.3 mg mouth 2 magnesium) (two) tablet times a day. insulin 2019- No Uncontrolle USE TO [place] syringe-nee 5 06-29 d type 2 INJECT M ethodi dle U-100 00:00: 00:[address] (BD INSULIN 00 :00 mellitus DAILY SYRINGE without ULT-FINE complicatio II) 0.5 mL n, with 31 gauge x long-term 02/09" current use syringe of insulin traMADol Yes 50mg Take 50 mg [facility] (ULTRAM) 50 4-17 by mouth Meth susan mg tablet 00:00: as needed. st 00 tacrolimus 2020- No .5mg Q.5D Take 1 [place] (PROGRAF) 4-15 -15 capsule Method i 0.5 MG 00:00: 00:00 (0.[address] capsule 00 :00 total) by mouth 2 (two) times a day. Z94.1 heart transplant pravastatin 2019- No 80mg QD Take 1 [facility] (PRAVACHOL) 3-13 02-17 tablet (80 M ethodi 80 MG 00:00: 00:00 mg total) st tablet 00 :00 by mouth daily. torsemide 2019- No 40mg QD Take 2 [place] (DEMADEX) 2-28 01-15 tablets Method i 20 MG 00:00: 00:00 ([address] tablet 00 :00 total) by mouth daily. tacrolimus 2018- Yes .5mg Q.5D Take 0.[address] [facility] (PROGRAF) 1-25 mg by [facility] - 0.5 MG 14:56: mouth 2 Medical capsule 08 (two) Center times daily. predniSONE Yes 5mg QD Take [address] [facility] [address] [facility] (DELTASONE) 1-25 by mouth Luke [facility] - 5 MG tablet 14:56: daily. Medi jacquelyn 08 [place] torsemide 2019-0 Yes 40mg QD Take [address] [facility] [address] [facility] (DEMADEX) 1-25 by mouth [facility] - 20 MG 14:56: daily. Medical tablet 08 [place] MULTIVITAMI 0 Yes Take by [facility] N ORAL 1-25 mouth. [facility] - 14:56: Medical 08 [place] labetalol 20190 Yes 100mg Q.5D Take [address] [facility] (NORMODYNE) 1-25 mg by [facility] - 100 MG 14:56: mouth 2 Medical tablet 08 (two) Center times daily. potassium 2019 Yes 10meq QD Take [address] [facility] chloride SA 1-25 mEq by [facility] - (K-DUR,KLOR 14:56: mouth Medic al -CON) 10 08 daily. [place] MEQ tablet magnesium Yes 400mg Q.5D Take [address] [facility] oxide 1-25 mg by [facility] - (MAG-OX) 14:56: mouth 2 Medica l 400 mg 08 (two) Center (241.3 mg times magnesium) daily. tablet metOLazone Yes 2.5mg Take 2.[address] (ZAROXOLYN) 1-25 mg by [facility] - 2.5 MG 14:56: mouth as Medical tablet 08 needed. [place] pravastatin Yes 80mg QD Take [address] [facility] (PRAVACHOL) 1-25 by mouth Luke [facility] - 80 MG 14:56: nightly. Medical tablet 08 [place] montelukast Yes 10mg Take [address] [facility] (SINGULAIR) 1-25 by mouth Luke [facility] - 10 mg 14:56: as needed. Medica l tablet 08 [place] tamsulosin Yes .4mg QD Take 0.[address] [facility] (FLOMAX) 1-25 mg by [facility] - 0.4 mg Cap 14:56: mouth Medica l 24 hr 08 daily. [place] capsule traMADol 0 Yes 50mg Take [address] [facility] (ULTRAM) 50 1-25 by mouth Luke s - mg tablet 14:56: every 6 Medic al 08 (six) Center hours as needed for Pain. fesoterodin 20190 Yes QD Take by [facility] (TOVIAZ) 1-25 mouth [facility] - 4 mg 24 hr 14:56: daily. Medic al tablet 08 Center amLODIPine 20190 Yes 5mg QD Take [address] [facility] [address] [facility] (NORVASC) 5 1-25 by mouth Luke s - MG tablet 14:56: daily. Medica l Center folic acid 2018-0 Yes 1mg QD Take [address] [facility] [address] [facility] (FOLVITE) 1 1-25 by mouth Luke s - MG tablet 14:56: daily. Medica l [address] [place] [address] aspirin 81 2019-0 Yes 81mg QD Take [address] MG EC 1-25 by mouth [facility] - tablet 14:56: daily. Medical 07 Center esomeprazol 0 Yes 20mg Q.5D Take [address] (NEXIUM) 1-25 by mouth 2 [place] - 20 MG 14:56: (two) Medical capsule 07 times Center daily. allopurinol 0 Yes 100mg Q.5D Take [address] (ZYLOPRIM) 1-25 mg by [facility] - 100 MG 14:56: mouth 2 Medical tablet 07 (two) Center times daily. ALPRAZolam Yes .5mg Take 0.[address] [facility] (XANAX) 0.5 1-25 mg by [facility] - MG tablet 14:56: mouth Medical 07 every Center night as needed for Anxiety. ferrous 20190 Yes 325mg Take 325 [facility] sulfate 325 1-25 mg by [facility] - (65 FE) MG 14:56: mouth Medica l tablet 07 daily with Center breakfast. gabapentin 0 Yes 300mg [id number] Take [address] [address] (NEURONTIN) 1-25 [id number] mg by L ukes - 300 MG 14:56: 3D mouth 3 Medical capsule 07 (three) Center times daily. isosorbide 2019 Yes 30mg QD Take [address] dinitrate 1-25 by mouth [facility] - (ISORDIL) 14:56: daily. Medica l 30 MG 07 Center tablet insulin [address] [facility] aspart 1-25 subcutaneo [facility] - protamine-i 14:56: usly 2 Medi jacquelyn nsulin 07 (two) Center aspart times (NOVOLOG daily with MIX 70/30) breakfast 100 unit/mL and (70-30) dinner. injection HYDROcodone 2019-0 Yes 1{tbl} Take [address] -acetaminop 1-25 tablet by [place] (NORCO 14:56: mouth Medica l 5-325) 07 every 6 Center 5-325 mg (six) per tablet hours as needed for Pain. finasteride Yes 5mg QD Take [address] (PROSCAR) 5 1-25 by mouth Luke s - mg tablet 14:56: daily. Medica l 07 Center isosorbide 2019- No 30mg QD Take 1 [place] mononitrate 10-17-15 tablet (30 M ethodi (IMDUR) 30 00:00: 00:00 mg total) s t MG 24 hr 00 :00 by mouth tablet daily. potassium 2019- No 20meq QD Take 2 [place] chloride 10-06- tablets [facility] (K-DUR,KLOR 00:00: 00:00 ([address] -CON) 10 00 :00 total) by MEQ CR mouth tablet daily. gabapentin 2017-09- No TAKE 1 [place] (NEURONTIN) 11-2417 CAPSULE Meth ussan 300 mg 00:00: 00:[address] capsule 00 :00 TIMES DAILY labetalol 2017-09- No 100mg Q.5D Take 1 [place] (NORMODYNE) 11-09 02-10 tablet Metho di 100 MG 00:00: 23:59 ([address] tablet 00 :00 total) by mouth 2 (two) times a day. gabapentin Yes 300 mg = 1 M emoria 300 MG Oral 7-23 cap, PO, l Capsule 22:48: BID, # 28 Mallorie nn 00 cap, 0 Refill(s) methocarbam No 1,000 mg = Memoria ol 500 mg 7-23 2 tab, PO, l oral tablet 22:44: Q8H, X 14 H ermann 00 day, # 84 tab, 0 Refill(s) Lidocaine Yes 1 patch, Shine sarah 0.05 MG/MG 7-23 TOP, Q24H, l Transdermal 22:44: # 14 Brent n Patch 00 patch, 0 Refill(s) Docusate Yes 100 mg = 1 Mem oria Sodium 100 7-23 cap, PO, l MG Oral 22:44: BID, # 28 Mallorie nn Capsule 00 cap, 0 [Colace] Refill(s) tramadol No 50 mg = 1 Shine sarah hydrochlori 04-18 tab, PO, l de 50 MG 22:44: Q6H, X 7 Mallorie nn Oral Tablet 00 day, # 28 tab, 0 Refill(s) polyethylen No 17 gm, PO, Memoria e glycol 04-18 BID, X 14 l 3350 oral 22:44: day, # 12 Her aguirre powder for 00 ea, 0 reconstitut Refill(s) ion Tacrolimus No Notes: Memor ia 04-18 Avoid l 04:07: grapefruit Sae and grapefruit juice. (Same As: Prograf) docusate 2019- No Twice a [place] sodium 100 04-18 02-11 day [facility] mg capsule 00:00: 00:00 st 00 :00 Methadone No Notes: Memori a 04-17 (Same as: l 21:00: Dolophine) [place] Prograf No Notes: Memoria - (Same As: l 13:00: Prograf) [place] remove No Notes: Memoria patch 04-17 Remove l 11:00: patch 12 Sae 00 hours after applicatio n each day. Prograf No Notes: Memoria - (Same As: l 01:00: Prograf) Sae Lidocaine No 1 patch, Shine sarah 0.05 MG/MG 04-16 Route: l Transdermal 23:00: TOP, Q24H, [place] Patch 00 Drug form: FILM, Start date: 04/16/18 18:00:00 CDT, Duration: 30 day, Stop date: 05/15/18 18:00:00 CDT tramadol No Notes: Not Mem oria hydrochlori 04-16 to exceed l de 50 MG 23:00: 400mg/day. Her aguirre Oral Tablet 00 (Same As: Ultram) gabapentin No Notes: Memor ia 100 MG Oral 04-16 (Same as: l Capsule 22:00: Neurontin) Herm kris Fosfomycin No Notes: Memor ia 7-20 (Same as: l 17:00: Monural) [place] mix w/ 90 to 120 ml (3 to 4 ounces) of water and stir to dissolve. Do not use hot water. Take immediatel y after dissolving in water. Methadone No Notes: Memori a 7-20 (Same as: l 17:00: Dolophine) Sae 00 Protonix No Notes: Memoria 7-19 Tablet l 21:30: should not be chewed or crushed. (Same as: Protonix) Methadone No Notes: Memori a 7-19 (Same as: l 18:00: Dolophine) Simethicone No Notes: Shine sarah 7-19 (Same as: l 01:35: Mylicon) Isolyte S No Notes: Memori a PH-7.4 7-18 (Same as: l (Bolus) IV 15:44: Isolyte S He rmann 00 PH7.4) multivitami No 1 tab, PO, Memoria n 7-18 Daily l 14:26: Sae 00 Isolyte S No Notes: Memori a PH-7.4 -18 (Same as: l (Bolus) IV 10:06: Isolyte S He rmann 00 PH 7.4) magnesium No Notes: Memori a citrate 18 (Same as: l 58.2 MG/ML 02:31: Citrate of H ermann Oral Magnesia) Solution Concentrat ion: 1.745 gm / 30 mL molasses No Notes: Memoria 7-17 (Same l 22:21: as:Molasse [place] 00 s) Flomax No Notes: Memoria 7-17 (Same As: l 22:00: Flomax) "Do Not Crush" Dulcolax No Notes: Memoria Laxative 7-17 (Same As: l 21:27: Dulcolax, Sae 00 Bisco-Lax) remove No Notes: Memoria patch 7-17 Remove l 19:05: patch 12 [place] 00 hours after applicatio n each day. Fosfomycin No Notes: Memor ia 7-17 (Same as: l 17:00: Monural) mix w/ 90 to 120 ml (3 to 4 ounces) of water and stir to dissolve. Do not use hot water. Take immediatel y after dissolving in water. Lidocaine No Notes: Memori a Hydrochlori 7-17 Apply only l de 0.05 17:00: once for Brent n MG/MG 00 up to 12 Transdermal hours in a Patch 24-hour [Lidoderm] period (12 hours on and 12 hours off). (Same as: Lidoderm) "Remove old patch before applicatio n of new patch" Oxycodone No Notes: Memori a Hydrochlori 7-17 (Same as: l de 5 MG 15:29: Roxicodone Herm kris Oral Tablet 00 ) gabapentin No Notes: Memor ia 100 MG Oral 7-16 (Same as: l Capsule 21:00: Neurontin) Flomax No Notes: Memoria 7-16 (Same As: l 13:30: Flomax) "Do Not Crush" sennosides, No Notes: Shine sarah [facility] 7-15 (Same as: l 22:00: Senokot) Miralax No Notes: Memoria 7-15 Dissolve l 22:00: in 8 oz of water or juice. (Same as: Miralax) Oxycodone No Notes: Memori a Hydrochlori 7-15 (Same as: l de 5 MG 17:00: Roxicodone Herm kris Oral Tablet 00 ) Bupivacaine No Notes: Shine sarah liposome 7-15 (Same as: l 17:00: Exparel) NOT FOR IV use Postoperat tricia analgesia: Infiltrati on (local): Dose is based on surgical site and volume required to cover the area (in general, the maximum total dose is 266 mg). Bunionecto my: 7 mL into the tissues surroundin g the osteotomy and 1 mL into the subcutaneo us tissue of the surgical site (total dose = 8 mL [106 mg]) Hemorrhoid ectomy: 30 mL (20 mL vial diluted with 10 mL NS) divided and administer ed as 6 injections of 5 mL each (total dose = 30 mL [266 mg]) Dulcolax No Notes: Memoria Laxative 7-15 (Same As: l 16:54: Dulcolax, [place] 00 Bisco-Lax) Alprazolam No Notes: Memor ia 0.5 MG Oral 7-15 With food l Tablet 16:37: or milk [place] [Xanax] 00 (Same as: Xanax) Aspirin 81 No Notes: Do Me moria MG Enteric 7-15 not crush l Coated 14:00: or chew. [place] Tablet 00 (Same As: Ecotrin) sennosides, No Notes: Shine sarah [facility] 7-15 (Same as: l 14:00: Senokot) [place] 00 Miralax No Notes: Memoria 7-15 Dissolve l 14:00: in 8 oz of [place] 00 water or juice. (Same as: Miralax) Imdur No Notes: Memoria 7-15 (Same l 14:00: as:Imdur) [place] 00 "Do Not Crush" Take on empty stomach/ full glass of water. Do not crush torsemide No Notes: Memori a 7-15 (Same As: l 14:00: Demadex) [place] Alprazolam No Notes: Memor ia 0.5 MG Oral 7-15 With food l Tablet 03:31: or milk [place] [Xanax] 00 (Same as: Xanax) Pravastatin No Notes: Shine sarah 7-15 (Same as: l 02:00: Pravachol) Sae 00 Sulfamethox No Notes: One Memoria azole 800 7-14 DS tablet l MG / 22:28: = Sae Trimethopri 00 trimethopr m 160 MG im 160mg + Oral Tablet sulfametho [Bactrim] xazole 800 mg Dose based on trimethopr im component On empty stomach with a glass of water. (Same As: Bactrim DS, Septra DS) Docusate No Notes: Memoria Sodium 100 7-14 (Same as: l MG Oral 22:00: Colace) Sae Capsule 00 (Do Not [Colace] Crush) Oxycodone No Notes: Memori a Hydrochlori 7-14 (Same as: l de 5 MG 21:00: Roxicodone Herm kris Oral Tablet 00 ) Lasix No Notes: Memoria 7-14 (Same as: l 17:05: Lasix) Sae 00 Oxycodone No Notes: Memori a Hydrochlori 7-14 (Same as: l de 5 MG 17:02: Roxicodone Herm kris Oral Tablet 00 ) torsemide No 20 mg, Memori a 7-14 Route: l 17:00: IVPB, [place] ONCE, Dosing Weight 87.273, kg, Priority: NOW, Start date: 04/09/18 12:00:00 CDT, Stop date: 04/09/18 12:00:00 CDT Dulcolax No Notes: Memoria Laxative 7-14 (Same As: l 15:36: Dulcolax, Sae Bisco-Lax) Labetalol No Notes: Memori a 7-14 With food. l 15:29: (Same as:Trandat e, Normodyne) Insulin No 60 Memoria regular 7-14 units) l 15:22: WASTE: F/P Sae 00 - Black; E - Municipal Trash Bin Stable for 28 days at room temperatur e Expires in days from ____Date Glucagon 2018-0 No 1 mg, Memoria 7-14 Route: IM, l 15:22: Drug form: PDR/INJ, PRN, Dosing Weight 87.273, kg, PRN Blood Glucose Results, Start date: 04/09/18 10:22:00 CDT, Duration: 30 day, Stop date: 05/09/18 10:21:00 CDT Dextrose No 25 gm, 50 Shine sarah 50% Syringe 7-14 mL, Route: l 15:22: IVP, Drug Form: INJ, Dosing Weight 87.273, kg, PRN, PRN Blood Glucose Results, Start date: 04/09/18 10:22:00 CDT, Duration: 30 day, Stop date: 05/09/18 10:21:00 CDT Oxycodone No Notes: Memori a Hydrochlori -14 (Same as: l de 5 MG 14:31: Roxicodone Herm kris Oral Tablet 00 ) gabapentin No 300 mg, 1 Me moria 300 MG Oral 7-14 cap, l Capsule 13:42: Route: PO, Herm kris 00 ONCE, Dosing Weight 87.273, kg, Start date: 04/09/18 8:42:00 CDT, Stop date: 04/09/18 8:42:00 CDT Robaxin No Notes: Memoria 7-14 (Same l 13:00: as:Robaxin Sae 00 ) Tramadol No Notes: Not Mem oria -14 to exceed l 09:00: 400mg/day. [place] 00 (Same As: Ultram) Streptococc No Notes: Shine sarah us -14 Shake well l pneumoniae 03:20: prior to Her aguirre serotype 1 12 use (Same capsular as: antigen Prevnar diphtheria 13) [id number] protein conjugate vaccine / Streptococc us pneumoniae serotype 14 capsular antigen diphtheria [id number] protein conjugate vaccine / Streptococc us pneumoniae serotype 18C capsular antigen d remove No Notes: Memoria patch 7-13 Remove l 21:00: patch 12 [place] 00 hours after applicatio n each day. Esomeprazol No 20 mg = 1 M emoria e 20 MG 7-13 cap, PO, l Enteric 17:54: Daily, 0 Brent n Coated 00 Refill(s) Capsule [Nexium] montelukast No 10 mg = 1 M emoria 10 MG Oral 7-13 tab, PO, l Tablet 17:51: PRN, 0 Sae [Singulair] 00 Refill(s) Alprazolam No 0.5 mg = 1 M emoria 0.5 MG Oral 7-13 tab, PO, l Tablet 17:51: Daily, 0 [place] 00 Refill(s) Ferrousal No 325 mg = 1 Me moria 325 mg oral 7-13 tab, PO, l tablet 17:51: Daily, 0 [place] 00 Refill(s) tamsulosin No 0.4 mg = 1 M emoria 0.4 mg oral 7-13 cap, PO, l capsule 17:49: Daily, 0 Brent n 00 Refill(s) isosorbide No 30 mg = 1 Me moria mononitrate 7-13 tab, PO, l 30 mg oral 17:49: QAM, 0 Mallorie nn tablet, 00 Refill(s) extended release potassium No 10 mEq = 1 Me moria chloride 10 7-13 tab, PO, l mEq oral 17:48: Daily, 0 Mallorie nn tablet, 00 Refill(s) extended release torsemide No 20 mg = 1 Mem oria 20 mg oral 7-13 tab, PO, l tablet 17:45: BID, 0 [place] 00 Refill(s) gabapentin No 300 mg = 1 M emoria 300 MG Oral 7-13 cap, PO, l Capsule 17:45: TID, 0 [place] 00 Refill(s) Metolazone No 2.5 mg = 1 M emoria 2.5 MG Oral 7-13 tab, PO, l Tablet 17:45: Daily, 0 Sae 00 Refill(s) amLODIPine No 5 mg = 1 Mem oria 5 mg oral 7-13 tab, PO, l tablet 17:44: Daily, 0 Sae 00 Refill(s) labetalol No 100 mg = 1 Me moria 100 mg oral 7-13 tab, PO, l tablet 17:44: BID, 0 [place] 00 Refill(s) pravastatin No 80 mg = 1 M emoria 80 mg oral 7-13 tab, PO, l tablet 17:19: Daily, 0 Sae 00 Refill(s) allopurinol No 100 mg = 1 Memoria 100 mg oral 7-13 tab, PO, l tablet 17:19: BID, 0 Sae 00 Refill(s) magnesium No 400 mg = 1 Me moria oxide 400 7-13 tab, PO, l mg oral 17:18: BID, 0 Sae tablet 00 Refill(s) Folic Acid No 1 mg = 1 Mem oria 1 MG Oral 7-13 tab, PO, l Tablet 17:17: Daily, 0 Sae 00 Refill(s) Fish Oil No 1,000 mg = Mem oria 1000 mg 7-13 1 cap, PO, l oral 17:14: BID, 0 [place] capsule 00 Refill(s) thiamine No 100 mg = 1 Mem oria 100 mg oral 7-13 tab, PO, l tablet 17:13: Daily, 0 [place] 00 Refill(s) multivitami No Daily, 0 Me moria n 7-13 Refill(s) l 17:13: Sae 00 Calcium No 1 tab, PO, Shine sarah Carbonate 7-13 BID, 0 l 1500 MG / 17:13: Refill(s) Her aguirre Cholecalcif 00 kang 400 UNT Oral Tablet Aspirin 81 No 81 mg = 1 Me moria MG Chewable 7-13 tab, CHEW, l Tablet 17:12: Daily, 0 Sae 00 Refill(s) NovoLIN No 24 unit, Memori a 70/30 7-13 SUB-Q, l 17:11: QPM, 0 Sae 00 Refill(s) NovoLIN No 18 unit, Memori a 70/30 7-13 SUB-Q, l 17:09: QAM, 0 Sae 00 Refill(s) predniSONE No 5 mg = 1 Mem oria 5 mg oral 7-13 tab, PO, l tablet 17:09: Daily, 0 Sae 00 Refill(s) tacrolimus No 0.5 mg = 1 M emoria 0.5 mg oral 713 cap, PO, l capsule 17:09: Q12H, 0 [place] 00 Refill(s) Prednisone No Notes: Memor ia 04-08 Take with l 14:00: food. Sae 00 Tacrolimus No Notes: Memor ia - Avoid l 13:00: grapefruit [place] 00 and grapefruit juice. (Same As: Prograf) heparin No Notes: Memoria sodium, 04-08 porcine l porcine 13:00: heparin [place] 2500 UNT/ML 00 Injectable Solution acetaminoph No Notes: Max Memoria en 04-08 acetaminop l 12:23: hen 4000 Sae 00 mg/day (4 gm/day). (Same as: Tylenol Extra Strength) iodixanol No 100 mL, Memor ia 04-08 Route: l 08:59: IVP, Drug Sae Form: SOLN, kg, ONCALL, STAT, Start date: 04/08/18 3:59:00 CDT, Duration: 1 doses or times, Dose = 2.2ml/kg, Max dose = 100ml -- "To be infused by Radiology Staff ONLY" Lidocaine No Notes: Memori a Hydrochlori 04-08 (Same as: l de 0.05 07:00: Lidoderm) Mallorie nn MG/MG 00 "Remove Transdermal old patch Patch before [Lidoderm] applicatio n of new patch" Oxycodone No Notes: Memori a Hydrochlori 04-08 (Same as: l de 5 MG 06:48: Roxicodone Herm kris Oral Tablet ) Tramadol No Notes: Not Mem oria 04-08 to exceed l 06:48: 400mg/day. Sae (Same As: Ultram) gabapentin No Notes: Memor ia 04-08 (Same as: l 06:46: Neurontin) [place] 00 Acetaminoph No Notes: Max Memoria en 04-08 acetaminop l 06:46: hen 4000 [place] 00 mg/day (4 gm/day). (Same as: Tylenol Extra Strength) Fentanyl No Notes: Memoria 04-08 (Same as: l 04:37: Sublimaze) Preservat tricia free. Saline No Notes: Memoria Flush 0.9% 04-08 (Same as: l 04:37: BD Sae Posiflush) esomeprazol Yes Take 40 mg Hernandez e (NexIUM) 01-22 by mouth Metho di 20 MG 00:00: every st capsule 00 morning and 20 mg by mouth every evening montelukast Yes 10mg Take 1 [place] (SINGULAIR) 01-22 tablet (10 Me thodi 10 mg 00:00: mg total) st tablet 00 by mouth as needed (allergies ). metOLazone 2020- No 2.5mg Take [address] [facility] (ZAROXOLYN) 01-22 04-24 tablet Metho di 2.5 MG 00:00: 00:00 (2.[address] tablet 00 :00 total) by mouth as needed (fluid). Titrate to effect Vital Signs Vital Name Observation Time Observation Value Comments Source Systolic blood 2020-07-09 148 mm[Hg] Pt stated bp [place] pressure 07:55:00 meds were [facility] taking Diastolic blood 2020-07-09 67 mm[Hg] Pt stated bp [place] pressure 07:55:00 meds were [facility] taking Heart rate 2020-07-09 78 /min [place] 07:55:00 [facility] Body temperature 2020-07-09 36.44 Genevieve [place] 07:55:00 [facility] Respiratory rate 2020-07-09 17 /min [place] 07:55:00 [facility] Body height 2020-07-09 175.3 cm [place] 07:55:00 [facility] Body weight 2020-07-09 87.227 kg [place] 07:55:00 [facility] BMI 2020-07-09 28.40 kg/m2 [place] 07:55:00 [facility] Oxygen saturation 2020-07-09 97 /min [place] in Arterial blood 07:55:00 [facility] by Pulse oximetry Respitory Rate 2018-04-18 [facility] kris 23:44:00 Heart [facility] Systolic (mm Hg) 2018-04-18 [facility] rmann 23:44:00 Diastolic (mm Hg) 2018-04-18 [facility] ermann 23:44:00 Temperature Oral 2018-04-18 97.5 F [facility] rmann (F) 23:44:00 Heart Rate 2018-04-18 Bob Chuan n 17:46:00 Respitory Rate 2018-04-18 [facility] 17:46:00 Temperature Oral 2018-04-18 97.8 F [facility] rmann (F) 17:46:00 Systolic (mm Hg) 2018-04-18 [facility] rmann 17:46:00 Diastolic (mm Hg) 2018-04-18 [facility] ermann 17:46:00 Systolic (mm Hg) 2018-04-18 [facility] rmann 14:34:00 Diastolic (mm Hg) 2018-04-18 [facility] ermann 14:34:00 Temperature Oral 2018-04-18 97.5 F [facility] rmann (F) 14:34:00 Heart Rate 2018[facility]04[facility] 14:[facility]00 Respitory Rate 2018-04-18 [facility] Herm kris 14:34:00 Weight 2018-04-09 Bob Kennedy n 02:59:00 BMI Calculated 2018-04-09 Bob Chu kris 02:59:00 Height 2018-04-09 175.26 cm Bob Kennedy n 02:59:00 Procedures Procedure Date / Time Performing Source Performed Clinician ECG 12-LEAD 2020-07-09 [facility] 10:05:21 [facility] URINE CULTURE 2020-07-09 [facility] 08:09:00 [facility] COMPREHENSIVE METABOLIC PANEL 2020-07-09 [facility] 08:09:00 [facility] MAGNESIUM LEVEL 2020-07-09 [facility] 08:09:00 [facility] HC COMPLETE BLD COUNT W/AUTO DIFF 2020-07-09 [facility] 08:09:00 [facility] LDH 2020-07-09 [facility] 08:09:00 [facility] B NATRIURETIC PEPTIDE 2020-07-09 [facility] 08:09:00 [facility] TROPONIN 2020-07-09 [facility] 08:09:00 [facility] PROTHROMBIN [facility] [id number] TACROLIMUS LEVEL, RANDOM 2020-07-09 [facility] 08:09:00 [facility] LIPID PANEL 2020-07-09 [facility] 08:09:00 [facility] URIC ACID LEVEL 2020-07-09 [facility] 08:09:00 [facility] URINALYSIS SCREEN AND MICROSCOPY, 2020-07-09 [facility] WITH REFLEX TO CULTURE 08:09:00 [facility] IGAM 2020-07-09 [facility] 08:09:00 [facility] PROTEIN, URINE, RANDOM 2020-07-09 [facility] 08:09:00 [facility] ESTIMATED GFR 2020-07-09 [facility] 08:09:[address] HEAD WO CONTRAST 2020-05-30 [facility] [place] 16:36:36 Obadah [facility] URINE CULTURE 2020-05-13 [facility] 11:11:00 [facility] COMPREHENSIVE METABOLIC PANEL 2020-05-13 [facility] 11:11:00 [facility] MAGNESIUM LEVEL 2020-05-13 [facility] 11:11:00 [facility] HC COMPLETE BLD COUNT W/AUTO DIFF 2020-05-13 [facility] 11:11:00 [facility] CYTOMEGALOVIRUS BY PCR 2020-05-13 [facility] 11:11:00 [facility] B NATRIURETIC PEPTIDE 2020-05-13 [facility] 11:11:00 [facility] PROTHROMBIN TIME WITH INR 2020-05[facility]13 [facility] FK506 TACROLIMUS LEVEL, RANDOM [facility] LIPID PANEL 2020-05-13 [facility] 11:11:00 [facility] THYROID STIMULATING HORMONE 2020-05-13 [facility] 11:11:00 [facility] PARATHYROID HORMONE 2020-05-13 [facility] 11:11:00 [facility] URIC ACID LEVEL 2020-05-13 [facility] 11:11:00 [facility] URINALYSIS SCREEN AND MICROSCOPY, 2020-05-13 [facility] WITH REFLEX TO CULTURE 11:11:00 [facility] IGAM 2020-05-13 [facility] 11:11:00 [facility] PROTEIN, URINE, RANDOM 2020-05-13 [facility] 11:11:00 [facility] CREATININE LEVEL, URINE, RANDOM 2020-05-13 [facility] 11:11:00 [facility] ESTIMATED GFR 2020-05-13 [facility] 11:11:00 [facility] TROPONIN 2020-05-13 Yash Fontaine [place] 11:11:00 [facility] LIPID PANEL 2020-05-02 , [facility] 08:14:00 [facility] MICROALBUMIN / CREATININE URINE 2020-05-02 , [facility] RATIO 08:14:00 [facility] COMPREHENSIVE METABOLIC PANEL 2020-05-02 [facility] [place] 08:14:00 [facility] FRUCTOSAMINE 2020-05-02 , [facility] 08:14:00 [facility] CBC WITH PLATELET AND DIFFERENTIAL 2020-05-02 [facility] [place] 08:14:00 [facility] ABN TEST REFUSAL 2020-05-02 [facility] 08:14:00 [facility] T4, FREE 2020-05-02 , [facility] 08:14:00 [facility] THYROID STIMULATING HORMONE 2020-05-02 [facility] ton 08:14:00 [facility] HEMOGLOBIN A1C 2020-05-02 , [facility] 08:14:00 [facility] PLATELET ESTIMATION (NOT 2020-05-02 [facility] ORDERABLE) 08:14:00 [facility] NM GASTRIC EMPTYING 2020-02-28 [facility] 14:51:48 Imran [facility] NM GASTRIC EMPTYING 2020-02-21 [facility] 11:48:38 [facility]ran [facility] SURGICAL PATHOLOGY REQUEST 2020-02-08 [facility] 12:07:00 O. [facility] POC GLUCOSE 2020-02-08 [facility] 11:35:00 [facility]. [facility] ESOPHAGOGASTRODUODENOSCOPY (EGD) 2020-02-08 [facility] 09:57:00 O. [facility] COLONOSCOPY 2020-02-08 [facility] 09:57:00 [facility]. [facility] POC GLUCOSE 2020-02-08 [facility] 09:13:00 [facility]. [facility] MAGNESIUM LEVEL 2019-12-29 [facility] 08:49:00 [facility] COMPREHENSIVE METABOLIC PANEL 2019-12-29 [facility] 08:49:00 [facility] CBC WITH PLATELET AND DIFFERENTIAL 2019-12-29 [facility] 08:49:00 [facility] PLATELET ESTIMATION (NOT 2019-12-29 [facility]) 08:49:00 [facility] FK506 TACROLIMUS LEVEL, RANDOM 2019-12-29 [facility] 08:49:00 [facility] ECG 12-LEAD 2019-11-07 [facility] 10:45:46 [facility] BONE DENSITY 2019-11-07 [facility] 10:18:33 [facility] BONE DENSITY PERIPHERAL 2019-11-07 [facility] 10:17:39 [facility] TTE COMPLETE, WO CONTRAST, W 2019-11-02 [facility] D[facility] ([id number]) 13:26:49 [facility] CV CARDIAC PET STRESS TEST 2019-11-02 [facility] on 12:33:10 [facility] CARDIAC PET MYOCARDIAL PERFUSION 2019-11-02 [facility] IMAGING 12:33:10 [facility] US ABDOMEN COMPLETE 2019-11-02 [facility] 10:00:00 [facility] XR CHEST 2 VW 2019-11-02 [facility] 08:05:56 [facility] URINE CULTURE 2019-11-02 [facility] 07:00:00 [facility] BASIC METABOLIC PANEL 2019-11-02 [facility] 07:00:00 [facility] HC COMPLETE BLD COUNT W/AUTO DIFF 2019-11-02 [facility] 07:00:00 [facility] PHOSPHORUS LEVEL 2019-11-02 [facility] 07:00:00 [facility] MAGNESIUM LEVEL 2019-11-02 [facility] 07:00:00 [facility] HEPATIC FUNCTION PANEL 2019-11-02 [facility] 07:00:00 [facility] LIPID PANEL 2019-11-02 [facility] 07:00:00 [facility] HEMOGLOBIN A1C 2019-11-02 [facility] 07:00:00 [facility] IONIZED CALCIUM 2019-11-02 [facility] 07:00:00 [facility] PARATHYROID HORMONE 2019-11-02 [facility] 07:00:00 [facility] T3 2019-11-02 [facility] 07:00:00 [facility] T4 2019-11-02 [facility] 07:00:00 [facility] THYROID STIMULATING HORMONE 2019-11-02 [facility] ton 07:00:00 Evangelical URIC ACID LEVEL 2019-11-02 [facility] 07:00:00 Evangelical LDH 2019-11-02 [facility] 07:00:00 [facility] URINALYSIS SCREEN AND MICROSCOPY, 2019-11-02 [facility] WITH REFLEX TO CULTURE 07:00:00 [facility] B NATRIURETIC PEPTIDE 2019-11-02 [facility] 07:00:00 Evangelical FK506 TACROLIMUS LEVEL, RANDOM 2019-11-02 [facility] 07:00:00 [facility] TROPONIN 2019-11-02 [facility] 07:00:00 [facility] PROSTATE SPECIFIC ANTIGEN 2019-11-02 [facility] 07:00:00 [facility] TESTOSTERONE 2019-11-02 [facility] 07:00:00 [facility] CYTOMEGALOVIRUS BY PCR 2019-11-02 [facility] 07:00:00 Evangelical IGAM 2019-11-02 [facility] 07:00:00 [facility] ESTIMATED GFR 2019-11-02 [facility] 07:00:00 [facility] DONOR SPECIFIC ANTIBODY 2019-11-02 [facility] 07:00:00 Evangel[facility] Plan of Care Planned Activity Planned Date Details Comments Source Future Scheduled 2021-06-26 DIABETIC RETINAL EYE [place] [facility] Test 00:00:00 EXAM [code = DIABETIC RETINAL EYE EXAM] Future Scheduled 2020-04-27 INFLUENZA VACCINE [place] [facility] Test 00:00:00 [code = INFLUENZA VACCINE] Future Scheduled 2019-12-08 DIABETIC FOOT EXAM [place] [facility] Test 00:00:00 [code = DIABETIC FOOT EXAM] Future Scheduled 2008 65+ PNEUMOCOCCAL [place] [facility] Test 00:00:00 VACCINE (1 of 1 - PPSV23) [code = 65+ PNEUMOCOCCAL VACCINE (1 of 1 - PPSV23)] Future Scheduled 1993 COLONOSCOPY SCREENING [facility] Test 00:00:00 [code = COLONOSCOPY SCREENING] Future Scheduled 1993 SHINGLES VACCINES (#1) [facility] Test 00:00:00 [code = SHINGLES VACCINES (#1)] Encounters Start End Encounter Admission Attending Care Care Encounter Source Date/Time Date/Time Type Type Clinicians Facility Department ID 2020-07-09 2020-07-09 Outpatient [facility] [id number] [place] 00:00:00 00:00:00 YASH [address] 2020-07-09 2020-07-09 Outpatient [facility] [id number] [place] 00:00:00 00:00:00 YASH [address] 2020-05-30 2020-05-30 Outpatient [facility] [id number] [place] 00:00:00 00:00:00 MOHAMMAD [address] 2020-05-13 2020-05-13 Outpatient BHIMARAJ, [facility] [id number] [place] 00:00:00 00:00:00 YASH [address] 2020-05-07 2020-05-07 Outpatient SADHU, [facility] [id number] [place] 00:00:00 00:00:00 SANTI [address] 2020-02-28 2020-02-28 Outpatient NAYAN, [facility] [id number] [place] 00:00:00 00:00:00 GREG [address] 2020-02-26 2020-02-26 Outpatient NAKAWAH, [facility] [id number] [place] 00:00:00 00:00:00 MOHAMMAD [address] 2020-02-21 2020-02-21 Outpatient NAYAN, [facility] [id number] [place] 00:00:00 00:00:00 GREG [address] 2020-02-08 2020-02-08 Outpatient NAYAN, [facility] [id number] [place] 00:00:00 00:00:00 GREG [address] 2019-12-06 2019-12-06 Outpatient AHMAD, [facility] [id number] 969 [place] 00:00:00 00:00:00 PARISH [address] 2019-11-07 2019-11-07 Outpatient KAUSHIK, [facility] [id number] [place] 00:00:00 00:00:00 ASHRITH [address] 2019-11-07 2019-11-07 Outpatient AKUSHIK, [facility] [id number] [place] 00:00:00 00:00:00 ASHRITH [address] 2019-11-02 2019-11-02 Outpatient KAUSHIK, [facility] [id number] [place] 00:00:00 00:00:00 ASHRITH [address] 2019-11-02 2019-11-02 Outpatient KAUSHIK, [facility] [id number] [place] 00:00:00 00:00:00 ASHRITH [address] 2019-11-02 2019-11-02 Outpatient KAUSHIK, [facility] [id number] 827 [place] 00:00:00 00:00:00 ASHRITH [address] 2019-11-02 2019-11-02 Outpatient KAUSHIK, [facility] [id number] [place] 00:00:00 00:00:00 ASHRITH [address] 2018-04-07 2018-04-18 Outpatient Wally [facility] [id number] 23:09:00 19:45:00 Virihimanshu Landeros 2018-04-07 2018-04-18 Outpatient Wally [facility] [id number] 23:09:00 19:45:00 Viri 67 Leti Results Test Description Test Time Test Comments Results Result Comments Source Hemoglobin A1c 2020-05-04 21:42:00 Test Item Value Reference Range Interpretation Comme nts Hemoglobin A1C (test 7.3 <5.7 % of H For noel eone without code = 4548-4) total Hgb known diabete s, a hemoglobin A1cv alue of 6.5% or greater indicates that they may have diabetes a nd this should be confi rmed with a follow-up adamaris t. For someone with kn own diabetes, a aashish ue <7% indicates that their diabetes is wel l controlled and a value greater than or equal to 7% indicates nguyen boptimal control. A1c ta rgets should be indiv idualized based on durati on of diabetes, age, comorbid conditions, and other considerations. Currently, no c onsensus exists regardin g use ofhemoglobin A1 c for diagnosis of di abetes for children. HOWARD (test code = HOWARD) FASTING:YESPATIENT REFUSED SOME TESTING; PATIENT ENCOURAGED TO RETURN.FASTING: YES RAC (test code = RAC) Performing Organization Information: Site ID: RGA Name: [facility] Address: [address] [place] [phone] Director: Matthew Aguirre Lab Interpretation (test Abnormal code = 90474-7) demetria Pierce2020-08-08 21:42:00 Test Item Value Reference Range Interpretation Comments T4, free (test code 0.9 ng/dL 0.8-1.8 = 3024-7) HOWARD (test code = FASTING:YESPATIENT REFUSED HOWARD) SOME TESTING; PATIENT ENCOURAGED TO RETURN.FASTING: YES RAC (test code = Performing Organization RAC) Information: Site ID: RGA Name: [facility] Address: [address] [place] [phone] Director: Matthew Aguirre [place] RrvumdbfdHwfoakhuwhyb0516-20-49 21:42:00 Test Item Value Reference Range Interpretation Comments Fructosamine (test code 290 umol/L 205-285 H = 07444-6) HOWARD (test code = HOWARD) FASTING:YESPATIENT REFUSED SOME TESTING; PATIENT ENCOURAGED TO RETURN.FASTING: YES RAC (test code = RAC) Performing Organization Information: Site ID: EZ Name: [facility], Address: [address] [place] [phone] Director: Vianey Barnard MD,PhD,LACIE Lab Interpretation (test Abnormal code = 26586-9) [place] [facility] / creatinine urine [id number] 21:42:00 Test Item Value Reference Interpretation Comments Range Creatinine, urine, 82 mg/dL 20-320 random (test code = 2161-8) Microalbumin, urine 22.1 mg/dL See Note: Referenc e (test code = Range:Reference 21918-6) RangeNot establ ished Microalbumin/creati 270 <30 mcg/mg H The ADA defines nine ratio (test creat abnormaliti es in code = 9318-7) albuminexcret ion as follows: Catego ry Result (mc g/mg creatinine) Nor mal <30Microalbumin uria 30-299 Clinical albumi anthony > OR = 300 Th e ADA recommends that at least two of threespecimens collected withi n a 3-6 month perio d beabnormal befo re considering a patient to bewi thin a diagnostic category. HOWARD (test code = FASTING:YESPATIEN HOWARD) T REFUSED SOME TESTING; PATIENT ENCOURAGED TO RETURN.FASTING: YES RAC (test code = Performing RAC) Organization Information: Site ID: ARJUNA Name: [facility] Address: [address] [place] [phone] Director: Matthew Aguirre Lab Interpretation Abnormal (test code = 37053-3) [place] MethodistABN TEST [id number] 21:42:00 Test Item Value Reference Range Interpretation Comments ABN test 88917 Be advised cinthia t refused (test your patient h as code = 8251-1) indicated ont he advance benefic iary notice their decisionnot to receive the following laboratory test s.As a result, the t ests will not be performed. HOWARD (test code FASTING:YESPATIENT = HOWARD) REFUSED SOME TESTING; PATIENT ENCOURAGED TO RETURN.FASTING: YES RAC (test code Performing = RAC) Organization Information: Site ID: [facility] Name: [facility] Address: [address] [place] [phone] Director: Matthew Aguirre [place] MethodistPlatelet [id number] 21:42:00 Test Item Value Reference Range Interpretation Comments Platelet estimate (test DECREASED ADEQUATE A code = 9317-9) HOWARD (test code = HOWARD) FASTING:YESPATIENT REFUSED SOME TESTING; PATIENT ENCOURAGED TO RETURN.FASTING: YES RAC (test code = RAC) Performing Organization Information: Site ID: [facility] Name: [facility] Address: [address] [place] [phone] Director: Matthew Aguirre Lab Interpretation (test Abnormal code = 86917-8) [facility] Gastric [id number] 16:12:11Hm Interface, Radiology Results Incoming - 02/28/2020 4:15 PM CDTPROCEDURE: [place] GASTRIC EMPTYINGINDI CATION: R68.81 Early satiety, Please perform 4 hour study only-do not perform 90 mins study.Comparison: Very recent gastric emptying study of 02/21/2020 TECHNIQUE: 1 millicurie of Bv-63j-ykkcmf colloid were mixed with an egg and cooked. The egg was fed to the patient and dynamic imaging of the abdomen in the anterior and posterior projections was performed for 90 minutes. Quantification of gastric emptying was performed using the geometric mean of the anterior and posterior projections. FINDINGS: The half-time of emptying is calculated to be 106 minutes. Normal is <100 minutes. 4 hour delayed imaging: Gastric retention = <5% (normal is <10%) IMPRESSION: No definite evidence of gastroparesis today. The 4-hour delayed images are clearly normal and these are generally considered more accurate than early imaging in the diagnosis of gastroparesis, although this is unproven.[facility]-[id number] and approved by president educational institution/fellow: Dez Tena M.D.I, Mandeep Hemphill, personally reviewed the images and resident's/fellow's findings and agree with the final report.[facility] [id number] 15:03:10 Test Item Value Reference Range Interpretation Comments Case number (test [id number] code = 6193422) Surgical pathology See link below for PDF report (test code = Lab Report 2255) Result status (test This is Supplemental code = 8247696) Report for [id number] [facility] nbkvews9067-77-39 11:36:57 Test Item Value Reference Range Interpretation Comments POC glucose (test code = 121 mg/dL 65-99 H Ope rator Name: 29083-2) Waldemar Willingham RDevice ID: [id number] able : [facility] Notified rail loader Interpretation (test Abnormal code = 02745-0) [facility] 12 [id number] 09:10:26 Test Item Value Reference Range Interpretation Comments Ventricular rate (test 76 code = 253) Atrial rate (test code = 76 255) NE interval (test code = 152 266) QRSD interval (test code 86 = 260) QT interval (test code = 394 264) QTC interval (test code = 443 265) P axis 1 (test code = 73 267) QRS axis 1 (test code = 58 268) T wave axis (test code = 82 270) EKG impression (test code Normal sinus = 273) rhythm-Electronicall y Signed By Aquilino Garcia MD ([id number]) on 11/08/2019 9:10:22 AM [facility] [id number] 10:22:45Hm Interface, Radiology Results Incoming - 11/07/2019 10:25 AM CSTEXAMINATION: BONE DENSITY, BONE DENSITY PERIPHERALCLINICAL HISTORY: Z94.1 Heart transplant status, N18.5 Chronic kidney disease stage 5, osteopenia, HX of osteopenia by previous annual X- raysCOMPARISON: 11/17/2018.The results of thisstudy expressed as bone mineral density (BMD) were as follows:AP spine (L1-L4)BMD: 1.652 g/in7W-Zhyse: 3.6Z score:4.0Change compared to prior exam: 1.7% Dual Femur (Total Mean):BMD: 1.060 g/ef3L-Pjlnq:-0.3Z score:0.5Change compared to prior exam: 2.3%Left femoral neck:BMD: 0.902 g/vv0S-Sskbk: -1.3Z score:0.0Right femoral neck:BMD: 0.970 g/up9R-Zzbzk: -0.8Z score:0.5Forearm (Radius 33%):BMD: 0.916 g/xr5C-Ongcg: -0.7Z score: 0.3Change compared to prior exam: -1.6%Dual femur FRAX:Risk factors: Chronicglucocorticoid use10 year probability of fracture:1. Major osteoporotic: 9.5%2. Hip:3.0%3. Based on dual femur left neck BMDTrabecular Bone Score (TBS):TBS L1-L4: 1.320, (>1.350 normal, 1.200-1.350 partially degraded microarchitecture, <1.200 degraded microarchitecture)The 10 year probability of fracture, adjusted for FRAX:Major Osteoporotic Fracture: 9.4%Hip Fracture: 3.1%Impression: Bone mineral density values as above.[id number] copy of this scans including a report detailing these results will follow.Note: The world health organization (WHO) has classified the patient's T-scoreas follows:Above (-1) as normal(-1) to (-2.5) as low (osteopenia)Below (-2.5) as abnormally low (osteoporosis, increased fracture risk)[place] MethodistBone Density Qkqdaskmuq5923-59-25 10:22:45Hm Interface, Radiology Results 11/07/2019 10:25 AM CSTEXAMINATION: BONE DENSITY, BONE DENSITY PERIPHERALCLINICAL HISTORY: Z94.1 Heart transplant status, N18.5 Chronic kidney disease stage 5, osteopenia, HX of osteopenia by previous annual X- raysCOMPARISON: 11/17/2018.The results of thisstudy expressed as bone mineral density (BMD) were as follows:AP spine (L1-L4)BMD: 1.652 g/yb4U-Rjiam: 3.6Z score:4.0Change compared to prior exam: 1.7% Dual Femur (Total Mean):BMD: 1.060 g/yc8H-Kwqzq:-0.3Z score:0.5Change compared to prior exam: 2.3%Left femoral neck:BMD: 0.902 g/js4G-Bgooc: -1.3Z score:0.0Right femoral neck:BMD: 0.970 g/lm6M-Acnad: -0.8Z score:0.5Forearm (Radius 33%):BMD: 0.916 g/ic7Q-Ffgrd: -0.7Z score: 0.3Change compared to prior exam: -1.6%Dual femur FRAX:Risk factors: Chronicglucocorticoid use10 year probability of fracture:1. Major osteoporotic: 9.5%2. Hip:3.0%3. Based on dual femur left neck BMDTrabecular Bone Score (TBS):TBS L1-L4: 1.320, (>1.350 normal, 1.200-1.350 partially degraded microarchitecture, <1.200 degraded microarchitecture)The 10 year probability of fracture, adjusted for FRAX:Major Osteoporotic Fracture: 9.4%Hip Fracture: 3.1%Impression: Bone mineral density values as above.[id number] copy of this scans including a report detailing these results will follow.Note: The world health organization (WHO) has classified the patient's T-scoreas follows:Above (-1) as normal(-1) to (-2.5) as low (osteopenia)Below (-2.5) as abnormally low (osteoporosis, increased fracture risk)[facility] Echocardiogram complete w contrast and 3D if [id number] 12:14:00Interface, Radiology Results In - 11/03/2019 12:[address] [facility] Echocardiography Report [address] [address], [place], [place] [address].Name: TAQUERIA JENKINS Iveth.ID: [id number].Date: 11/02/2019 Refer.MD: KAUSHIK ESPOSITO MD Exam Time: 12:53:00 PM Study Type:Routine Echo Height: 69in Weight: 185lb BSA: 2 m2 Age: 2 1945,74Y Sex: MALE BP: 163/77 HR: 87 bpm Sonogrphr: Sadaf Jackson, BS, RDCS; Yana Coates. Stat.:Outpatient Room: [facility] Study Status:Final Echo Event ID:[id number] Order ID: [id number] Reason for Study:Cardiac transplant, monitoring for rejection; 12years post heart transplant screen for rejection History / Clinical:Arrhythmias, COPD, Heart TransplantProcedures: 2D Echo, Colorflow DopplerRace: C FINDINGS: LV: LV size is normal. LV EF is hyperdynamic. Overall wall motion is hyperdynamic. Estimated EF is >70%.RV: RV size is normal. RV systolic function is normal.LA: LA volume is enlarged.RA: RA volume is severely enlarged.AO: Aortic rootdiameter is normal.ROSLYN: No pericardial effusion.AV: Trileaflet aortic valve.MV: No structural MV abnormalities noted.PV: No structural PV abnormalities noted. A trace of pulmonic regurgitation. TV: No structural TV abnormalities noted. Moderate tricuspid regurgitation Mascorro: Normal diastolic function and LV filling pressures.Other: Estimated PA systolic pressure is 51 mmHg, assuming a mean RAP of 10 mmHg. --MEASUREMENTS: 2DParasternal Long [place] Ao An 1.9 cm LVPWd 0.9 cm Ao Rtd 3.3 cm Index 1.7 cm/m2 LA Ds 5.1 cm IVSd 1.5 cm RWT 0.42 LVIDd 4.3 cm Index 2.1 cm/m2 LV Mass 183 g (122-174) LVIDs 2.6 cm LVM Index 92 g/m2 LV%fs 39 % LVOT 1.9 cm LA Sng Plane LA Area 30 cm2 (8.8-23.4) LA Vol 100 ml Index 50 ml/m2 LA LngAx 7.3 cm RA Sng Plane RA Vol 135 ml Index 68 ml/m2 RA LngAx 8.6 cm RA Area 37 cm2 (8.3-19.5)LVOT LVOT Area 2.8 cm2 DOPPLERLVOT Stroke Vol LVOT TVI 23 cm HR 79 bpm LVOT LVOT SV 65 ml LVOT CO 5.1 l/min SVi 32 ml/m2 LVOT CI 2.6 l/m/m2 Signed 11/03/2019 12:14 PMSunil Desai M.D.[place] Methodist[facility] Abdomen [id number] 15:05:12Hm Interface, Radiology Results - 11/02/2019 3:08 PM CSTEXAM: US ABDOMEN COMPLETECLINICAL DATA: Z94.1 Heart transplant status, N18.5 Chronic kidney disease stage 5, Abd pain unspecified, 12 years post transplant- routine screening for complications mass Ca renal impairmentCOMPARISON: FINDINGS:LIVER: The liver demonstrates normal echogenicity without focal mass or intrahepatic biliary ductal dilatation. There is a 3.6 cm right hepatic cyst.MPV: Doppler evaluation of the portal vein demonstrates normal hepatopedal flow.. The portal vein measures 1.1 cm in diameter.GALLBLADDER: The gallbladder has been surgically removed.CBD: 5 mm, within normal limits.PANCREAS: The visualized portions of the pancreas are within normal limits.SPLEEN: The spleen is homogeneous and not enlarged measuring 12.0 x 5.2 x 5.2 cm.RIGHT KIDNEY: The right kidney demonstrates increased echogenicity. It is normal in size. There is no evidence of mass, calculi, or hydronephrosis. The right kidney measures 11.6 x 6.0 x 5.8 cm. There are 2 simple renal cysts measuring up to 1.7 cm.LEFT KIDNEY: The left kidney demonstrates increased echogenicity. It is normal in size. There is no evidence of mass, calculi, or hydronephrosis. The left kidney measures 13.0 x 6.0 x 5.2 cm. There is a 1.0 cm simplecyst.AORTA: The visualized upper abdominal aorta demonstrates no evidence of ectasia or aneurysm. The aorta is atherosclerotic. 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 IVC: An infrarenal IVC filter is present.ASCITES: No abnormal abdominal fluid collecti ons are visualized. There is no evidence of ascites.PLEURAL EFFUSION: There are no pleural effusions.IMPRESSION:3.6 cm right hepatic cyst.Echogenic kidneys compatible with medical renal disease. 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, stable since 2017.Infrarenal IVC filter.[facility]- [id number] and approved by president educational institution/fellow: Magi Cardenas M.D.I, Chase Dooley MD, personally reviewed the images and resident's/fellow's findings and agree with the final report.David TripathiistCv stress test 2019-11-02 12:12:54 Test Item Value Reference Range Interpretation Comments Resting HR (test code 79 = 7983733770) Peak MET Achieved 1.0 (test code = 9958387895) Protocol Name (test Lexiscan code = 0228980747) Time in Exercise 00:01:00 Phase (test code = 5906756107) Max Systolic BP (test 155 code = 8379770778) Max Diastolic BP 64 (test code = 6547929457) Max Heart Rate (test 85 code = 1417260278) Max Predicted Heart 144 Rate (test code = 0941640208) Target HR Formula (220 - Age)*100% (test code = 9684517169) Test Indication (test S/P Heart Transplant code = 4416252004) Reason for Protocol Complete Termination (test code = 7623498247) Stress Test Waveform interpreted in Impression (test code report associated with = 6363212821) image study. No interpretation is provided as part of this Stress ECG report.-Electronically Signed By Willard Justice MD ([id number]), makeup editor Allison Prasad ([id number]) on 11/02/2019 12:12:47 PM Target HR (test code 144.00 bpm = 5803830758) [facility] Chest 2 [id number] 08:11:11Hm Interface, Radiology Results 11/02/2019 8:14 AM CSTEXAMINATION: XR CHEST 2 VWCLINICAL HISTORY: 74 years Male Z94.1 Heart transplant status, N18.5 Chronic kidney disease stage 5, Routine CXR outpatient unstable chronic cardiopulmonary disease suspected, Post heart transplant 12 years- Annual screening for CA myopathy etc.COMPARISON: January 09, 2019IMPRESSION:Cardiomediastinal silhouette is unchanged. Scarring in the left lower lobe Age related changes in the osseous structures. The patient has undergone median sternotomy, old healed right rib fractures. A metallic lead projects over the cardiac silhouette [id number] [facility] TECHNOLOGY APPLICATIONS CONSULTANT IN OR/30 MINUTE [id number] 14:21:00 Reason for exam:->bilateral C3,C4,C5 medical branch raiofrequency ablation FINAL REPORT Fluoroscopy 3 views intraoperative 10/21/2018 1:28 PM CLINICAL HISTORY: Instrument localization COMPARISON: None available IMPRESSION: Please correlate imaging reportfindings with the procedure note prepared by Dr. Taylor, as an intra-procedure imaging consultation was not requested. Reported fluoroscopy time: 44.5 seconds. Signed: Munir Grady Verified Date/Time: 10/21/2018 14:21:41 Reading Location: [facility] Radiology Reading Room POCT-GLUCOSE [id number] 14:02:00 Test Item Value Reference Range Interpretation Comments POC-GLUCOSE METER 160 mg/dL 70-110 H TESTED AT [address]) (test code = [facility] 1538) [address] POCT-GLUCOSE [id number] 12:28:00 Test Item Value Reference Range Interpretation Comments POC-GLUCOSE METER 158 mg/dL 70-110 H TESTED AT [place] [address] ([facility]) (test code = [facility] 1538) [address] [place], TECHNOLOGY APPLICATIONS CONSULTANT IN OR/30 MINUTE [id number] 13:42:00Reason for exam:- >bilateral C3-C5 Medial Branch BlockFINAL REPORT Fluoroscopy 4 views intraoperative 09/16/2018 1:37 PM CLINICAL HISTORY: Instrument localization COMPARISON: None available IMPRESSION: Please correlate imaging report findings with the procedure note prepared by Dr. Taylor, as an intra-procedure imaging consultation was not requested. Reported fluoroscopy time: 35.8 seconds. Signed: Munir Grady Verified Date/Time: 09/16/2018 13:42:50 Reading Location: [facility] Radiology Reading Room POCT- GLUCOSE [id number] 12:18:00 Test Item Value Reference Range Interpretation Comments POC-GLUCOSE METER 154 mg/dL 70-110 H TESTED AT [place] [address] ([facility]) (test code = [facility] [place] 1538) [address] RZTDJUUJXC3768-70-47 10:58:003.3[facility] [id number] 05:30:00 1.61[facility]ann[facility] ZOEQI8807-44-84 05:30:0042[facility]annCHE[facility] PANEL 2018-04-17 05:30:0053[facility]ann[facility] UCUAJ5967-67-17 05:30:26472Soarqwin HermannCHEM OCYPW8505-00-77 05:30:66104Gczvrraz HermannCHEM PDJME0693-25-25 05:30:004.9[facility]annCHE[facility] EGZHC6465-97-97 05:30:0099[facility]annCHE[facility] UHEQO7251-50-06 05:30:0025[facility]annCHE[facility] KOKMW4538-35-15 05:30:008.6 [facility] JLFHN7988-45-27 05:30:0014.9[facility] HermannTOXICOLOGY 2018-04-16 13:46:00<2.0[facility]annCHEM IFKYV5183-41-04 05:38:64809 [facility] AIRVB0746-40-30 05:38:001.65[facility]annCHEM PANEL 2018-04-16 05:38:0051[facility]annCHE[facility] SYLEX5778-28-62 05:38:40075Nzcawnip HermannCHEM MZYWW6217-88-28 05:38:24627Eetcutmk HermannCHEM YZMPV7232-35-23 05:38:0027[facility]annCHE[facility] YBMRQ0553-64-38 05:38:005.2[facility]annCHE[facility] VFZQC5444-97-23 05:38:0040[facility]annCHE[facility] AYDQH3651-95-88 05:38:0014.2 [facility] NRWPY6699-69-66 05:38:008.4[facility]annCHEM PANEL 2018-04-15 05:13:0037[facility]annCHE[facility] YMLDV0966-88-55 05:13:005.6[facility]annCHE[facility] GZXGW8266-69-35 05:13:0099[facility]annCHE[facility] TVDGU9491-75-88 05:13:0029[facility]annCHE[facility] CMSWT3000-82-02 05:13:008.9[facility]ann[facility] PZJIW9158-14-90 05:13:0014.6[facility]annCHE[facility] GGNJH9625-68-19 05:13:0056 [facility] GXIGU2927-97-62 05:13:64497Oxkcembk HermannCHEM PANEL 2018-04-15 05:13:60988Wseovwum HermannCHEM MWHGL2557-28-08 05:13:001.77[facility]annCHE[facility] TIQZZ1615-49-27 05:43:004.1[facility]annCHE[facility] NUVIS2453-19-04 05:43:002.8[facility] UwfntthSLJMPOPBKZ3352-77-85 05:43:0087.0[facility] GPLRWRDQBB0123-59-91 05:43:006.6[facility] XwacvhgUNMHIKYYQR9336-45-17 05:43:007.0 [facility] QarajnwNTOVLGSIIK5138-19-06 05:43:006.0[facility] HermannHEMATOLOGY 2018-04-13 05:43:000.6[facility] FysuxjvHKWNUTAKKH6238-61-67 05:43:000.4[facility] RknubcaLLODGZHEGI3708-60-41 05:43:00 Test Item Value Reference Range Interpretation Comments MCH (test code = MCH) 32.6 pg 27.0-31.0 [facility] TrjtvusZRFMJOJPZL8632-14-63 05:43:0033.9[facility] HermannHEMATOLOGY 2018-04-13 05:43:0015.3[facility] LwqiyqtTKQJPXTDVH4588-26-90 05:43:88028[place] WmpdqofUSFDLEXPCL4443-82-06 05:43:009.6[facility] QcleocrUOYXFFOECX9524-01-59 05:43:007.6[facility] HzypnwhXIXOZROGXF5245-92-03 05:43:0031.0[facility] NOHIDBHLQN3259-07-17 05:43:0096.1[facility] BufagwtTFFWDTUYUS9639-24-20 05:43:00 3.22[facility] EoqxryeCJQSROFCVS3762-28-02 05:43:0010.5[facility]annCHEM PANEL 2018-04-12 05:57:003.6[facility]annCHE[facility] TKNSI5003-48-31 05:57:002.4[facility] FshwwtsEWOOQHRNQX3632-46-44 05:57:0084.1[facility] NtaxjjqANIRFFXMBU0123-38-39 05:57:000.9[facility] MxjjznsUKOCFDLYBM5035-10-42 05:57:000.2[facility] Sae VZCEZULKVM2923-78-19 05:57:000.4[facility] XtfymcfXRWJAOJSFY5794-86-89 05:57:009.2 [facility] WahsdrpMEZRRGBFPH6901-57-49 05:57:006.7[facility]annHEMATOLOGY 2018-04-12 05:57:008.6[facility] XjwkapyIBFMKGMOQI5892-51-09 05:57:000.7[facility] XarehxpEOFVDMSCOJ3455-90-82 05:57:71917Pluaklmi HcddwyvPSFNHFJAIV9464-44-03 05:57:0015.3[facility] HwevuzyWIYTGNKEDN5009-35-42 05:57:0096.8[facility] VVXDESTHWD0631-73-28 05:57:00 Test Item Value Reference Range Interpretation Comments MCH (test code = MCH) 31.8 pg 27.0-31.0 [facility] VfelkfpCUWCQETVTA6616-61-73 05:57:0010.6[facility] HermannHEMATOLOGY 2018-04-12 05:57:003.32[facility] OgxxapvVBQWTUEKWX6885-75-69 05:57:0032.8[facility] KdnchkyMMKRHWXHEZ5276-43-32 05:57:0032.2[facility] EgawhxoUWRDFNDCTI5058-67-80 05:57:009.7[facility] SwlqvmeMURUBTLNYZ8575-31-39 05:57:0010.9[facility] XYLZTUXUTM7008-89-99 12:36:004.3[facility] HlllhirXHTAFLPPSX1810-66-99 05:53:007.8 [facility] FbdcfuyFDIKSAVKLS3893-28-00 05:53:007.6[facility]annHEMATOLOGY 2018-04-11 05:53:000.6[facility] BzepivzQJJUGOYKGI6311-22-83 05:53:009.1[facility] NmnbseoYEPIAAPNLB3186-81-67 05:53:000.2[facility] HvlnpnjIIRMXCRPKN6656-58-48 05:53:000.8[facility] OkjilhjWLMGIWJMZN3357-76-82 05:53:000.8[facility] DSKJJKRWFP5323-91-37 05:53:000.1[facility] NebdxamCTVFKOJHRO2203-95-93 05:53:00 83.8[facility] NndksijAKHCYIXQCN2666-84-28 05:53:003.33[facility]annHEMATOLOGY 2018-04-11 05:53:0010.8[facility] GszvncqBMCTKKMJCU7325-24-75 05:53:0015.2[facility] CrclubvWPQOLPIZTR3847-13-81 05:53:62342Scdkuqpc VrupldlMBWWFRRNWW6974-26-10 05:53:009.6[facility] GynhvwdHZKDZGMFYJ0295-47-11 05:53:0033.5[facility] XPOBEAYFVE0648-77-53 05:53:00 Test Item Value Reference Range Interpretation Comments MCH (test code = MCH) 32.3 pg 27.0-31.0 [facility] FyjbibnNWKZMXGKKK4763-90-02 05:53:0032.1[facility] HermannHEMATOLOGY 2018-04-11 05:53:0096.2[facility] SipzupgXUFAYKLWPP1825-04-09 05:53:0010.8[facility] HermannGENTAMICIN:SUSC:PT:ISOLATE:ORDQN:XGM8565-44-24 19:19:00Escherichia coli [facility]annDR[facility] ANYOHP2856-35-59 18:42:00Negative *NA*(04/09/18 1:42 PM) [facility] AEJRKM4295-70-32 18:42:00Negative *NA*(04/09/18 1:42 PM) [facility] EGHWAQ5082-20-31 18:42:00Negative *NA*(04/09/18 1:42 PM) [facility] DPYRKE0828-55-02 18:42:00Positive *ABN*(04/09/18 1:42 PM) [facility] XVDGLK3930-33-70 18:42:00See Note (04/09/18 1:42 PM)[facility]annDR[facility] IFOICK4710-70-91 18:42:00Negative *NA*(04/09/18 1:42 PM)[facility] YLFAFU2404-54-99 18:42:00Negative *NA*(04/09/18 1:42 PM)[facility]DR[facility] RPNJCC1605-25-49 18:42:00Negative *NA*(04/09/18 1:42 PM)[facility] AND GGEMT7205-28-31 18:42:00Large *ABN*(04/09/18 1:42 PM)[facility] ZFWRL1704-43-79 18:42:00Negative (04/09/18 1:42 PM)[facility] XARTF7793-04-93 18:42:00Large *ABN*(04/09/18 1:42 PM)[facility] XYSDO7676-34-79 18:42:00>182[facility] AND STOOL 2018-04-09 18:42:05320Wefrhchd HermannURINE AND OCKJB7897-81-75 18:42:00Negative *NA*(04/09/18 1:42 PM)[facility] GIRFH4044-05-48 18:42:00Yellow *NA*(04/09/18 1:42 PM)[facility] BOJLR7068-99-21 18:42:00Marked *ABN*(04/09/18 1:42 PM)[facility] XOUMG8348-58-08 18:42:00 Test Item Value Reference Range Interpretation Comments UA Spec Grav (test code = UA Spec 1.013 1 Grav) [facility] CLGVS1746-58-56 18:42:00 Test Item Value Reference Range Interpretation Comments UA pH (test code = UA pH) 5.5 1 5.0-8.0 [facility] DlqwinnJHDUETXSNW5889-54-16 10:37:000.2[facility]annHEMATOLOGY 2018-04-09 10:37:000.8[facility] VbqnpbjUDZWZBCCZK5666-26-31 10:37:000.1[facility] AND HCZWZ1412-61-97 05:20:006-10 (04/08/18 12:20 AM)[facility] URINE AND VIKAO4729-51-67 05:20:00Yellow *NA*(04/08/18 12:20 AM)[facility]INE AND PBRNW0832-57-11 05:20:00Negative (04/08/18 12:20 AM)[facility] URINE AND OVDLG5424-17-44 05:20:00 Test Item Value Reference Range Interpretation Comments UA pH (test code = UA pH) 5.5 1 5.0-8.0 [facility] NJTER0653-57-80 05:20:00 Test Item Value Reference Range Interpretation Comments UA Spec Grav (test code = UA Spec 1.025 1 Grav) [facility] DDMCK8212-25-05 05:20:00Slight Cloudy (04/08/18 12:20 AM)[facility] PQZGO3622-32-79 05:20:00Negative (04/08/18 12:20 AM) [facility] MDUIE2937-71-22 05:20:000.2[facility] AND TKPOZ4036-71-27 05:20:00Large *ABN*(04/08/18 12:20 AM)[facility] VBUHO9771-81-07 05:20:00Negative *NA*(04/08/18 12:20 AM)[facility] YXKEG4289-58-47 05:20:00Negative *NA*(04/08/18 12:20 AM)[facility] NGLZO3192-81-80 05:20:00Negative (04/08/18 12:20 AM)[facility]annBLOOD BANK SOQIEYU6070-96-95 04:50:00Negative (04/07/18 11:50 PM)[facility] HermannCHEM PANEL 2018-04-08 04:41:480.8[facility]annCHEM RDWSM3615-47-58 04:41:487.0[facility]annCHEM EUWUB4481-76-24 04:41:483.7[facility]annCHEM FZWJL6003-66-70 04:41:4846[facility]annCHE[facility] NKPIO6864-32-08 04:41:4860[facility]annCHE[facility] WPKLW6354-51-35 04:41:4865[facility]annCHE[facility] DZQWI7297-82-60 04:41:480.7 [facility]CHE[facility] HZNFY7288-43-04 04:41:480.6[facility]annCHEM PANEL 2018-04-08 04:41:480.1[facility]annCHEM BBNDA9871-77-85 04:41:48 Test Item Value Reference Range Interpretation Comments A/G Ratio (test code = A/G Ratio) 1.1 1 0.7-1.6 [facility] ZCAQE4159-89-61 04:41:483.3[facility]HE[facility] 2018-04-08 04:41:48 Test Item Value Reference Range Interpretation Comments PTT (test code = PTT) 29.3 s 22.9-35.8 [facility] HospitalWosergkOMWATSPNIG5683-27-78 04:41:48 Test Item Value Reference Range Interpretation Comments INR (test code = INR) 1.19 1 0.85-1.17 [facility]VkrwgwwFPYKNSPUWU6640-04-00 04:41:48 Test Item Value Reference Range Interpretation Comments PT (test code = PT) 15.2 s 12.0-14.7 [facility] HospitalBfqpityQXPGHZFWQH5074-16-05 04:41:[address] [place], [place] [address]ATOLOGY 2018-04-08 04:41:48 Test Item Value Reference Range Interpretation Comments ACT (TEG) Rapid (test code = ACT (TEG) 97 s 86-118 Rapid) [facility] HospitalWcnxgcsEOAYMRUTFE7536-78-60 04:41:488.1[facility]annHEMATOLOGY 2018-04-08 04:41:48 Test Item Value Reference Range Interpretation Comments Split Point Rapid (test code = Split 0.4 min Point Rapid) [facility] CenterKldjigoARAOIFHSMJ5075-91-05 04:41:48 Test Item Value Reference Range Interpretation Comments R-time Rapid (test code = R-time 0.5 min 0.4-0.7 Rapid) [facility] HospitalHvjoxjvJIYSGCMXDG1508-92-38 04:41:48 Test Item Value Reference Range Interpretation Comments Angle Rapid (test code = Angle 76 degrees 64-80 Rapid) [facility] HospitalLnrcwmuWMFSFJHGZK5050-71-35 04:41:48 Test Item Value Reference Range Interpretation Comments Max Amplitude Rapid (test code = Max 62 mm 52-71 Amplitude Rapid) [facility] CenterNfpfhfcUYFMSXTQLY3734-65-47 04:41:48 Test Item Value Reference Range Interpretation Comments K-time Rapid (test code = K-time 1.2 min 0.6-2.3 Rapid) [facility] CenterMysucojYSBURMAIPD8538-29-87 04:41:48<0.003[facility] HermannTOXICOLOGY 2018-04-08 04:41:48<3[facility]
[2020-07-10] MEDS ORDERED: METOPROLOL TAR 50 MG TAB ONE (10:40)
[2020-07-10] MEDS ORDERED: KETOROLAC 30 MG/ML INJ ONE (10:40)
--- NOTE | 2020-07-10 10:44 | RAD REPORT ---
EXAM DESCRIPTION: CT - CTHCSPWOC - 07/10/2020 10:27 am CLINICAL HISTORY: PAIN, right-sided headache, neck pain COMPARISON: No comparisons TECHNIQUE: Axial 5 mm thick images of the head were obtained. Axial 2 mm thick images of the cervic al spine were obtained with sagittal and coronal reconstruction images generated and reviewed. All CT scans are performed using dose optimization technique as appropriate and may include automated exposure control or mA/KV adjustment according to patient size. FINDINGS: No intracranial hemorrhage, mass, edema or acute intracranial finding. No suspicion for ac [place] infarction. No cortical edema or sulcal effacement. Mild to moderate atrophy changes are present. Ventricles are in proportion to the volume loss. There are chronic ischemic changes in the cerebral white matter including a small area of encephalomalacia in the left frontal lobe and a slightly large r area in the left parietal lobe, both old CVAs. Arterial calcifications are present. Mastoid air arabella ls are clear. Mucosal thickening seen in a partially imaged right maxillary sinus. No globe or orbit abnormality seen. Cervical body height and alignment are normal. C5-6 and C6-7 disc space narrowing with endplate spurr ing. No central canal stenosis. Minimal bony foraminal encroachment at C5-6 probably not clinically s ignificant. No fracture or acute bony abnormality. Central canal detail is inherently limited. Patient has prominent degenerative change at the dens anterior arch C1 level. Two degenerative cysts approximately 8-10 mm are present in the dens. There is thinning of the cortex but no dens fracture. No paraspinal mass or hematoma. IMPRESSION: No hemorrhage, mass or acute infarction on CT head imaging. 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 No fracture or acute cervical spine finding. Patient has advanced degenerative change at C5-6 and C6- 7. Patient has advanced degenerative change in the dens of C2. There is thinning of the cortex related t o two 8-10 mm degenerative cysts. No dens fracture. Negative CT cervical spine examination for acute or significant finding.
--- NOTE | 2020-07-10 12:38 | EDPHYS ---
Physician Documentation [facility] Name: Octavio Bueno Age: 74 yrs Sex: Male : 1945 Arrival Date: 07/10/2020 Time: 09:42 Bed 7 Private MD: ED Physician Brad Sandoval HPI: 07/10 14:39 This 74 yrs old Male presents to ER via Wheelchair with complaints of kdr Headache. 14:39 The patient complains of pain to the right frontal area, right side of the back of kdr head, right temporal area and right occipital area. The patient describes the headache as aching, constant, a pressure, throbbing, unrelenting. Onset: The symptoms/episode began/occurred gradually, 2 day(s) ago. Associated signs and symptoms: Pertinent positives: nausea. Severity of symptoms: At its worst the pain was moderate, Several days. Headache History: The patient has had previous headaches and this one is similar to previous episodes. The symptoms are alleviated by nothing. the symptoms are aggravated by nothing. The patient has experienced similar episodes in the past, multiple times, chronically, today's symptoms are similar. The patient has not recently seen a physician. Historical: - Allergies: 10:17 NKA; ph - Home Meds: 10:17 allopurinol 100 mg Oral tab 1 tab 2 times per day [Active]; amlodipine 5 mg tab 1 tab ph once daily [Active]; aspirin 81 mg Oral TbEC 1 tab once daily [Active]; baclofen 10 mg Oral tab 1 tab 3 times per day [Active]; calcium carbonate 600 mg (1,500 mg) Oral tab [Active]; Nexium 40 mg Oral cpDR 1 cap once daily [Active]; ferrous sulfate 325 mg (65 mg iron) Oral tab daily [Active]; finasteride 5 mg oral tab 1 tab once daily [Active]; folic acid 1 mg Oral tab 1 tab once daily [Active]; gabapentin 300 mg Oral cap 1 cap 3 times per day [Active]; hydrocodone-acetaminophen 5-325 mg Oral tab [Active]; insulin aspart protamine-insulin aspart subcutaneous subcutaneous 12 units in morning and 20 units at night [Active]; isosorbide mononitrate 30 mg Oral Tb24 1 tab once daily [Active]; labetalol 100 mg oral tab 1 tab 2 times per day [Active]; magnesium oxide 400 mg Oral tab twice a day [Active]; metolazone 2.5 mg Oral tab 1 tab 3 times a week [Active]; Singulair 10 mg Oral tab 1 tab once daily [Active]; Novolin 70/30 [place] Sub-Q 70-30 unit/mL twice a day [Active]; potassium chloride 10 mEq Oral TbER 1 cap once daily [Active]; pravastatin 80 mg oral tab 1 tab once daily [Active]; prednisone 5 mg Oral tab 1.5 tabs once daily [Active]; sertraline 50 mg oral tab 1 tab once daily [Active]; Prograf 0.5 mg Oral cap every 12 hours [Active]; tamsulosin 0.4 mg Oral cp24 1 cap once daily [Active]; torsemide 20 mg Oral tab 2 tabs once daily [Active]; tramadol 50 mg Oral tab [Active]; - PMHx: 10:17 Diabetes - IDDM; Gout; Hyperlipidemia; Hypertension; Myocardial infarction; Chronic ph kidney disease stage V; Migraines r/t head injury; - Immunization history:: Pneumococcal vaccine is up to date. - Social history:: Smoking status: Patient denies any tobacco usage or history of. ROS: 14:39 Constitutional: Negative for fever, chills, and weight loss, Eyes: Negative for injury, kdr pain, redness, and discharge, Neck: Negative for injury, pain, and swelling, Cardiovascular: Negative for chest pain, palpitations, and edema, Respiratory: Negative for shortness of breath, cough, wheezing, and pleuritic chest pain, Abdomen/GI: Negative for abdominal pain, nausea, vomiting, diarrhea, and constipation, Back: Negative for injury and pain, : Negative for injury, bleeding, discharge, and swelling, MS/Extremity: Negative for injury and deformity, Skin: Negative for injury, rash, and discoloration, Psych: Negative for depression, anxiety, suicide ideation, homicidal ideation, and hallucinations, Allergy/Immunology: Negative for hives, rash, and allergies, Endocrine: Negative for neck swelling, polydipsia, polyuria, polyphagia, and marked weight changes, Hematologic/Lymphatic: Negative for swollen nodes, abnormal bleeding, and unusual bruising. 14:39 Neuro: Positive for headache, Negative for altered mental status, dizziness, gait disturbance, hearing loss, loss of consciousness, numbness, seizure activity, speech changes, syncope, near syncope, tremor, visual changes. Exam: 14:39 Constitutional: This is a well developed, well nourished patient who is awake, alert, kdr and in no acute distress. Head/Face: Normocephalic, atraumatic. Eyes: Pupils equal round and reactive to light, extra-ocular motions intact. Lids and lashes normal. Conjunctiva and sclera are non-icteric and not injected. Cornea within normal limits. Periorbital areas with no swelling, redness, or edema. Neck: Trachea midline, no thyromegaly or masses palpated, and no cervical lymphadenopathy. Supple, full range of motion without nuchal rigidity, or vertebral point tenderness. No Meningismus. Chest/axilla: Normal chest wall appearance and motion. Nontender with no deformity. No lesions are appreciated. Cardiovascular: Regular rate and rhythm with a normal S1 and S2. No gallops, murmurs, or rubs. Normal PMI, no JVD. No pulse deficits. Respiratory: Lungs have equal breath sounds bilaterally, clear to auscultation and percussion. No rales, rhonchi or wheezes noted. No increased work of breathing, no retractions or nasal flaring. Abdomen/GI: Soft, non-tender, with normal bowel sounds. No distension or tympany. No guarding or rebound. No evidence of tenderness throughout. Back: No spinal tenderness. No costovertebral tenderness. Full range of motion. Skin: Warm, dry with normal turgor. Normal color with no rashes, no lesions, and no evidence of cellulitis. MS/ Extremity: Pulses equal, no cyanosis. Neurovascular intact. Full, normal range of motion. Neuro: Awake and alert, GCS 15, oriented to person, place, time, and situation. Cranial nerves II-XII grossly intact. Motor strength 5/5 in all extremities. Sensory grossly intact. Cerebellar exam normal. Normal gait. Psych: Awake, alert, with orientation to person, place and time. Behavior, mood, and affect are within normal limits. Vital Signs: 10:00 BP 174 / 93; Pulse 71; Resp 18; Temp 97.0; Pulse Ox 97% on R/A; Weight 82.55 kg; Height ph 5 ft. 9 in. (175.26 cm); Pain 8/10; 10:45 BP 172 / 92; Pulse 68; Resp 18; Pulse Ox 98% on R/A; ph 11:23 BP 174 / 82; Pulse 67; Resp 18; Pulse Ox 96% on R/A; ph 12:35 BP 169 / 82; Pulse 63; Resp 18; Temp 97.4; Pulse Ox 99% on R/A; ph 13:03 BP 152 / 78; Pulse 64; Resp 18; Temp 97.8; Pulse Ox 99% on R/A; ph 10:00 Body Mass Index 26.88 (82.55 kg, 175.26 cm) ph MDM: 12:37 Data reviewed: vital signs, nurses notes, lab test result(s), radiologic studies, CT jr8 scan. Data interpreted: Pulse oximetry: on room air is 99 %. Interpretation: normal. Counseling: I had a detailed discussion with the patient and/or guardian regarding: the historical points, exam findings, and any diagnostic results supporting the discharge/admit diagnosis, lab results, radiology results, the need for outpatient follow up, a family practitioner, a neurologist, to return to the emergency department if symptoms worsen or persist or if there are any questions or concerns that arise at home. Response to treatment: the patient's symptoms have markedly improved after treatment. 12:37 Patient medically screened. jr8 07/10 11:28 Order name: Glucose, Ancillary Testing; Complete Time: 12:36 EDMS 07/10 10:15 Order name: CT Head C Spine; Complete Time: 12:36 kdr 07/10 11:17 Order name: Glucose Level; Complete Time: 11:17 mt Administered Medications: 10:38 Drug: Lopressor 100 mg Route: PO; ph 12:35 Follow up: Response: No adverse reaction; Blood pressure is lowered ph 10:40 Drug: TORadol - Ketorolac 15 mg Route: IVP; Site: right antecubital; ph 12:35 Follow up: Response: No adverse reaction; Pain is decreased ph Disposition: 14:44 Co-signature as Attending Physician, Brad Sandoval MD I agree with the assessment and kdr plan of care. Disposition: 07/10/20 12:37 Discharged to Home. Impression: Migraine. - Condition is Stable. - Discharge Instructions: Migraine Headache. - Medication Reconciliation Form, Thank You Letter, Antibiotic Education, Prescription Opioid Use form. - Follow up: Private Physician; When: 2 - 3 days; Reason: Recheck today's complaints, Continuance of care, Re-evaluation by your physician. - Problem is new. - Symptoms have improved. Signatures: Dispatcher [employer] EDMS Brad Sandoval MD MD kdr Roszak, Josh, PA PA jr8 Kalee Be RN RN ph Ramos, Mary ia Corrections: (The following items were deleted from the chart) 13:04 12:37 07/10/2020 12:37 Discharged to Home. Impression: Migraine. Condition is Stable. ph Forms are Medication Reconciliation Form, Thank You Letter, Antibiotic Education, Prescription Opioid Use. Follow up: Private Physician; When: 2 - 3 days; Reason: Recheck today's complaints, Continuance of care, Re-evaluation by your physician. Problem is new. Symptoms have improved. jr8
--- NOTE | 2020-07-10 12:38 | ER ---
Nurse's Notes [facility] Name: Octavio Bueno Age: 74 yrs Sex: Male : 1945 Arrival Date: 07/10/2020 Time: 09:42 Bed 7 Private MD: Diagnosis: Migraine Presentation: 07/10 10:00 Chief complaint: Patient states: R sided headache that began yesterday, hx of headaches ph x 2 years since a fall, sees neurologist in [place], took home medications at 0830, reports some relief, denies N/V or fever. Coronavirus screen: Client denies travel out of the [place] in the last 14 days. At this time, the client does not indicate any symptoms associated with coronavirus-19. Ebola Screen: No symptoms or risks identified at this time. Initial Sepsis Screen: Does the patient meet any 2 criteria? No. Patient's initial sepsis screen is negative. Does the patient have a suspected source of infection? No. Patient's initial sepsis screen is negative. Risk Assessment: Do you want to hurt yourself or someone else? Patient reports no desire to harm self or others. Onset of symptoms was July 10, 2020. 10:00 Method Of Arrival: Wheelchair ph 10:00 Acuity: YAHIR 3 ph Triage Assessment: 10:30 Headache History: The patient has had previous headaches and this one is similar to ph previous episodes. Historical: - Allergies: 10:17 NKA; ph - Home Meds: 10:17 allopurinol 100 mg Oral tab 1 tab 2 times per day [Active]; amlodipine 5 mg tab 1 tab ph once daily [Active]; aspirin 81 mg Oral TbEC 1 tab once daily [Active]; baclofen 10 mg Oral tab 1 tab 3 times per day [Active]; calcium carbonate 600 mg (1,500 mg) Oral tab [Active]; Nexium 40 mg Oral cpDR 1 cap once daily [Active]; ferrous sulfate 325 mg (65 mg iron) Oral tab daily [Active]; finasteride 5 mg oral tab 1 tab once daily [Active]; folic acid 1 mg Oral tab 1 tab once daily [Active]; gabapentin 300 mg Oral cap 1 cap 3 times per day [Active]; hydrocodone-acetaminophen 5-325 mg Oral tab [Active]; insulin aspart protamine-insulin aspart subcutaneous subcutaneous 12 units in morning and 20 units at night [Active]; isosorbide mononitrate 30 mg Oral Tb24 1 tab once daily [Active]; labetalol 100 mg oral tab 1 tab 2 times per day [Active]; magnesium oxide 400 mg Oral tab twice a day [Active]; metolazone 2.5 mg Oral tab 1 tab 3 times a week [Active]; Singulair 10 mg Oral tab 1 tab once daily [Active]; Novolin 70/30 [place] Sub-Q 70-30 unit/mL twice a day [Active]; potassium chloride 10 mEq Oral TbER 1 cap once daily [Active]; pravastatin 80 mg oral tab 1 tab once daily [Active]; prednisone 5 mg Oral tab 1.5 tabs once daily [Active]; sertraline 50 mg oral tab 1 tab once daily [Active]; Prograf 0.5 mg Oral cap every 12 hours [Active]; tamsulosin 0.4 mg Oral cp24 1 cap once daily [Active]; torsemide 20 mg Oral tab 2 tabs once daily [Active]; tramadol 50 mg Oral tab [Active]; - PMHx: 10:17 Diabetes - IDDM; Gout; Hyperlipidemia; Hypertension; Myocardial infarction; Chronic ph kidney disease stage V; Migraines r/t head injury; - Immunization history:: Pneumococcal vaccine is up to date. - Social history:: Smoking status: Patient denies any tobacco usage or history of. Screenin:30 Abuse screen: Denies threats or abuse. Denies injuries from another. Nutritional ph screening: No deficits noted. Tuberculosis screening: No symptoms or risk factors identified. Fall Risk None identified. Assessment: 10:27 General: Appears in no apparent distress. uncomfortable, slender, well groomed, ph Behavior is calm, cooperative, appropriate for age, Denies fever, feeling ill. Pain: Complains of pain in right frontal area, right temporal area, right side of forehead, right ear and right nondenominational Pain currently is 8 out of 10 on a pain scale. Neuro: Level of Consciousness is awake, alert, obeys commands, Oriented to person, place, time, situation, Pickle Cutter are equal bilaterally Moves all extremities. Full function Speech is normal, Facial symmetry appears normal, Facial symmetry: tongue is midline, Reports headache in right frontal area, Denies blurred vision dizziness, photophobia. Cardiovascular: Capillary refill < 3 seconds in bilateral fingers Patient's skin is warm and dry. Respiratory: Airway is patent Respiratory effort is even, unlabored, Respiratory pattern is regular, symmetrical. GI: No signs and/or symptoms were reported involving the gastrointestinal system. Patient currently denies nausea, vomiting. Derm: Skin is intact, is healthy with good turgor, Skin is pink, warm \T\ dry. Musculoskeletal: Circulation, motion, and sensation intact. Range of motion: intact in all extremities. 11:30 Reassessment: Patient appears in no apparent distress at this time. Patient and/or ph family updated on plan of care and expected duration. Pain level reassessed. Patient is alert, oriented x 3, equal unlabored respirations, skin warm/dry/pink. 12:34 Reassessment: Patient appears in no apparent distress at this time. Patient and/or ph family updated on plan of care and expected duration. Pain level reassessed. Patient is alert, oriented x 3, equal unlabored respirations, skin warm/dry/pink. Patient states feeling better. Patient states symptoms have improved. 13:03 Reassessment: Patient appears in no apparent distress at this time. Patient and/or ph family updated on plan of care and expected duration. Pain level reassessed. Patient is alert, oriented x 3, equal unlabored respirations, skin warm/dry/pink. Pt d/c home w/ SO. Vital Signs: 10:00 BP 174 / 93; Pulse 71; Resp 18; Temp 97.0; Pulse Ox 97% on R/A; Weight 82.55 kg; Height ph 5 ft. 9 in. (175.26 cm); Pain 8/10; 10:45 BP 172 / 92; Pulse 68; Resp 18; Pulse Ox 98% on R/A; ph 11:23 BP 174 / 82; Pulse 67; Resp 18; Pulse Ox 96% on R/A; ph 12:35 BP 169 / 82; Pulse 63; Resp 18; Temp 97.4; Pulse Ox 99% on R/A; ph 13:03 BP 152 / 78; Pulse 64; Resp 18; Temp 97.8; Pulse Ox 99% on R/A; ph 10:00 Body Mass Index 26.88 (82.55 kg, 175.26 cm) ph ED Course: 09:42 Patient arrived in ED. mr 09:49 Brad Sandoval MD is Attending Physician. kdr 09:59 Kalee Be, RN is Primary Nurse. ph 10:02 Triage completed. ph 10:27 CT Head C Spine In Process Unspecified. EDMS 10:30 Patient has correct armband on for positive identification. Bed in low position. Call ph light in reach. Side rails up X 1. Pulse ox on. NIBP on. Door closed. Noise minimized. Warm blanket given. 10:30 Arm band placed on. ph 10:40 Inserted saline lock: 22 gauge in right antecubital area, using aseptic technique. ph 13:04 No provider procedures requiring assistance completed. IV discontinued, intact, ph bleeding controlled, No redness/swelling at site. Pressure dressing applied. Administered Medications: 10:38 Drug: Lopressor 100 mg Route: PO; ph 12:35 Follow up: Response: No adverse reaction; Blood pressure is lowered ph 10:40 Drug: TORadol - Ketorolac 15 mg Route: IVP; Site: right antecubital; ph 12:35 Follow up: Response: No adverse reaction; Pain is decreased ph Outcome: 12:37 Discharge ordered by MD. berg 13:04 Discharged to home ambulatory, with significant other. ph 13:04 Condition: improved 13:04 Discharge instructions given to patient, significant other, Instructed on discharge instructions, follow up and referral plans. Demonstrated understanding of instructions, follow-up care. 13:04 Patient left the ED. ph Signatures: Dispatcher [employer] EDPA Brad Sandoval MD MD [facility] SouthAma galindo mr EmilyTyrone camarena, PA PA [id number] Kalee Be, RN RN ph
[2020-07-10 14:25] VITALS: O2SAT 99
[2020-07-10 14:28] VITALS: BP 152/78; TEMP 97.8
== END 2020-07-10 13:04 | disposition home or self-care (01) ==
LOC: ER 09:38
DX: G43.909 Migraine, unspecified, not intractable, without status migrainosus (principal); I10 Essential (primary) hypertension; I12.0 Hypertensive chronic kidney disease with stage 5 chronic kidney disease or end stage renal disease; E11.22 Type 2 diabetes mellitus with diabetic chronic kidney disease; N18.5 Chronic kidney disease, stage 5; E78.5 Hyperlipidemia, unspecified; Z79.4 Long term (current) use of insulin; Z79.82 Long term (current) use of aspirin
CPT/HCPCS: 70450; 72125; 82947; 96374; 99284

== ENCOUNTER 2020-12-31 19:37 | Emergency (ER) | payer OTHER ==
--- OUTSIDE RECORDS SUMMARY | 2020-12-31 19:44 | XMS REPORT | Continuity of Care Document ---
:1945 Author Organization [facility] t Address [address] [place] [address] Care Team Providers Name Role Phone Lily Mancia Primary Care Physician LACEY Attending Clinician Unavailable TWIN Attending Clinician Unavailable TAMANNA Attending Clinician Unavailable Doctor Unassigned, Name Attending Clinician Unavailable PAUL Attending Clinician Unavailable JARED Attending Clinician Unavailable GEOVANNI Attending Clinician Unavailable RIYA Attending Clinician Unavailable EBENEZER Attending Clinician Unavailable Radiology Attending Clinician Unavailable ELO TAYLOR Attending Clinician Unavailable Leti Lo Attending Clinician GEOVANNI Admitting Clinician Unavailable ELO TAYLOR Admitting Clinician Unavailable Leti Lo Admitting Clinician Problems Condition Condition Condition Status Onset Resolution Last Treating Co mments Source Name Details Category Date Date Treatment Clinician Date MULTIPLE Diagnosis Active 2018-04-27 M emoria RIGHT - 22:11:00 l SIDED RIB MULTIPLE 00:00: Her aguirre FX RIGHT 00 SIDED RIB FX Active 8 [facility] GO Diagnosis Active 2018-04-07 Billie BILLING/ 04-07 23:03:00 l LFLT #3435 00:00: Brent STILES 00 BILLING/ LFLT #3435 Active 04/07/2018 [facility] Unspecifie Problem 2018-11-05 M emoria d fracture 13:12:34 l of T9-T10 Sae vertebra, Unspecifie initial d fracture encounter of T9-T10 for closed vertebra, fracture initial encounter for closed fracture 11/05/2018 [facility] Acute Problem 2018-11-05 Memor ia kidney 13:12:34 l failure, Acute Sae unspecifie kidney d failure, unspecifie d 11/05/2018 [facility] Acute Problem 2018-11-05 Memor ia posthemorr 13:12:34 l hagic Acute Sae anemia posthemorr hagic anemia 11/05/2018 [facility] Heart Problem 2018-11-05 Memor ia transplant 13:12:34 l status Heart Sae transplant status 11/05/2018 [facility] Urinary Problem 2018-11-05 Shine sarah tract 13:12:34 l infection, Urinary Her aguirre site not tract specified infection, site not specified 11/05/2018 [facility] Atelectasi Problem 2018-11-05 M emoria s 13:12:34 l Sae Atelectasi s 11/05/2018 [facility] Fall on Problem 2018-11-05 Shine sarah and from 13:12:34 l ladder, Fall on Brent n initial and from encounter ladder, initial encounter 11/05/2018 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 Abrasion Problem 2018-11-05 Mem oria of left 13:12:34 l upper arm, Abrasion He rmann initial of left encounter upper arm, initial encounter 11/05/2018 [facility] Hyperlipid Problem 2018-11-05 M emoria emia, 13:12:34 l unspecifie Brent n d Hyperlipid emia, unspecifie d 11/05/2018 [facility] Traumatic Problem 2018-11-05 Me moria subcutaneo 13:12:34 l us Unity emphysema, Traumatic initial subcutaneo encounter us emphysema, initial encounter 11/05/2018 [facility] Acute pain Problem 2018-11-05 M emoria due to 13:12:34 l trauma Acute Sae pain due to trauma 11/05/2018 [facility] penitentiary Problem 2018-11-05 Me moria (current) 13:12:34 l use of Long Sae insulin term (current) use of insulin 11/05/2018 [facility] Hypoxemia Problem 2018-11-05 Me moria 13:12:34 l Unity Hypoxemia 11/05/2018 [facility] Unspecifie Problem 2018-11-05 M emoria d 13:12:34 l [place] Brent n a coli [E. Unspecifie coli] as d the cause [place] of a coli [E. diseases coli] as classified the cause elsewhere of diseases classified elsewhere 11/05/2018 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 Gastro-eso Problem 2018-11-05 M emoria phageal 13:12:34 l reflux Sae disease Gastro-eso without phageal esophagiti reflux s disease without esophagiti s 11/05/2018 [facility] Hyperkalem Problem 2018-11-05 M emoria ia 13:12:34 l Unity Hyperkalem ia 11/05/2018 [facility] Diarrhea, Problem 2018-11-05 Wy moria unspecifie 13:12:34 l d Sae Diarrhea, unspecifie d 11/05/2018 [facility] Contusion Problem 2018-11-05 Wy moria of 13:12:34 l abdominal Unity wall, Contusion initial of encounter abdominal wall, initial encounter 11/05/2018 [facility] MULTIPLE Diagnosis Active 2018-04-27 M emoria FRACTURES 22:11:00 l OF RIBS, MULTIPLE Herm kris UNSP SIDE, FRACTURES I OF RIBS, UNSP SIDE, I Active [facility] Multiple Problem 2018-11-05 Mem oria fractures 13:12:34 l of ribs, Multiple Herm kris right fractures side, of ribs, initial right encounter side, for closed initial fracture encounter for closed fracture 11/05/2018 [facility] Hypertensi Problem 2018-11-05 M emoria ve heart 13:12:34 l and Sae chronic Hypertensi kidney ve heart disease and with heart chronic failure kidney and stage disease 1 through with heart stage 4 failure chronic and stage kidney 1 through disease, stage 4 or chronic unspecifie kidney d chronic disease, kidney or disease unspecifie d chronic kidney disease 11/05/2018 [facility] Chronic Problem 2018-11-05 Shine sarah kidney 13:12:34 l disease, Chronic Mallorie nn stage 4 kidney (severe) disease, stage 4 (severe) 11/05/2018 [facility] Contusion Problem 2018-11-05 Me moria of lung, 13:12:34 l unilateral Brent n , initial Contusion encounter of lung, unilateral , initial encounter 11/05/2018 [facility] Acidosis Problem 2018-11-05 Mem oria 13:12:34 l Acidosis Brent n 11/05/2018 [facility] History of Past Illness Condition Condition Condition Status Onset Resolution Last Treating Co mments Source Name Details Category Date Date Treatment Clinician Date Traumatic Problem 2017-2018-11-05 2018-11-05 Memoria hemopneumo 8-03 13:12:34 13:12:34 l thorax, 03:07: Sae initial Traumatic 22 encounter hemopneumo thorax, initial encounter 04/29/2018 11/05/2018 [facility] Allergies, Adverse Reactions, Alerts Allergy Allergy Status Severity Reaction(s) Onset Inactive Treating Comm ents Source Name Type Date Date Clinician Adhesive Drug Active Other (See 2017-[address] [facility] Allergy Comments) 2- SKIN. [place] [facility] - 00:00: WITH [address] Social History Social Habit Start Date Stop Date Quantity Comments Source History of Current smoker SHAHZAD Matos es [facility] Tobacco use and 2018-10-24 2018-10-24 Never used [facility] Gilma kes - exposure 00:00:00 00:00:00 [facility] Alcohol intake 2018-10-24 2018-10-24 Current drinker SHAHZAD S [facility]ena [facility] - 00:[facility]:00 00:00:00 of alcohol [facility] (finding) Alcohol Comment 2018-09-15 2018-09-15 "VERY SELDOM" [facility] - 00[facility]:00 00:00:00 [facility] Smoking Status Start Date Stop Date Source Former smoker 2018-10-24 00:00:00 2018-10-24 00:00:[address] [facility] Social History [facility] Medications Ordered Filled Start Stop Current Ordering Indication Dosage Frequency Signature Comments Components Source Medication Medication Date Date Medication? Clinician (SIG) Name Name tacrolimus 2019-0 Yes .5mg Q.5D Take 0.[address] (PROGRAF) 1-25 mg by [facility] - 0.5 MG 14:56: mouth 2 Medical capsule 08 (two) Center times daily. predniSONE 2019-0 Yes 5mg QD Take [address] (DELTASONE) 1-25 by mouth Luke [facility] - 5 MG tablet 14:56: daily. Medi jacquelyn 08 [place] torsemide 2019-0 Yes 40mg QD Take [address] (DEMADEX) 1-25 by mouth [facility] - 20 MG 14:56: daily. Medical tablet 08 [place] MULTIVITAMI 2019-0 Yes Take by [facility] N ORAL 1-25 mouth. [facility] - 14:56: Medical 08 Center labetalol 2019-0 Yes 100mg Q.5D Take [address] (NORMODYNE) 1-25 mg by [facility] - 100 MG 14:56: mouth 2 Medical tablet 08 (two) Center times daily. potassium 2019-0 Yes 10meq QD Take [address] chloride SA 1-25 mEq by [facility] - (K-DUR,KLOR 14:56: mouth Medic al -CON) 10 08 daily. Center MEQ tablet magnesium 2019-0 Yes 400mg Q.5D Take [address] oxide 1-25 mg by [facility] - (MAG-OX) 14:56: mouth 2 Medica l 400 mg 08 (two) Center (241.3 mg times magnesium) daily. tablet metOLazone 20190 Yes 2.5mg Take 2.[address] (ZAROXOLYN) 1-25 mg by [facility] - 2.5 MG 14:56: mouth as Medical tablet 08 needed. [place] pravastatin 2019-0 Yes 80mg QD Take [address] (PRAVACHOL) 1-25 by mouth Luke [facility] - 80 MG 14:56: nightly. Medical tablet 08 [place] montelukast 2019-0 Yes 10mg Take [address] (SINGULAIR) 1-25 by mouth Luke [facility] - 10 mg 14:56: as needed. Medica l tablet 08 [place] tamsulosin 2019-0 Yes .4mg QD Take 0.[address] (FLOMAX) 1-25 mg by [facility] - 0.4 mg Cap 14:56: mouth Medica l 24 hr 08 daily. Center capsule traMADol 2019-0 Yes 50mg Take [address] (ULTRAM) 50 1-25 by mouth Luke s - mg tablet 14:56: every 6 Medic al 08 (six) Center hours as needed for Pain. fesoterodin 2019-0 Yes QD Take by [facility] (TOVIAZ) 1-25 mouth [facility] - 4 mg 24 hr 14:56: daily. Medic al tablet 08 Center amLODIPine 2019-0 Yes 5mg QD Take [address] (NORVASC) 5 1-25 by mouth Luke s - MG tablet 14:56: daily. Medica [address] folic acid 2018-0 Yes 1mg QD Take [address] (FOLVITE) 1 1-25 by mouth Luke s - MG tablet 14:56: daily. Medica l [address] [place] [address] aspirin 81 2019-0 Yes 81mg QD Take [address] MG EC 1-25 by mouth [facility] - tablet 14:56: daily. Medical [address] [place] [address] esomeprazol 0 Yes 20mg Q.5D Take [address] [facility] (NEXIUM) 1-25 by mouth 2 [place] - 20 MG 14:56: (two) Medical capsule 07 times Center daily. allopurinol 2019-0 Yes 100mg Q.5D Take [address] (ZYLOPRIM) 1-25 mg by [facility] - 100 MG 14:56: mouth 2 Medical tablet 07 (two) Center times daily. ALPRAZolam 2019-0 Yes .5mg Take 0.[address] (XANAX) 0.5 1-25 mg by [facility]ukes - MG tablet 14:56: mouth Medical 07 every Center night as needed for Anxiety. ferrous 2019-0 Yes 325mg Take 325 [facility] sulfate 325 1-25 mg by [facility] - (65 FE) MG 14:56: mouth Medica l tablet 07 daily with Center breakfast. gabapentin 2019-0 Yes 300mg [id number] Take [address] (NEURONTIN) 1-25 [id number] mg by L ukes - 300 MG 14:56: 3D mouth 3 Medical capsule 07 (three) Center times daily. isosorbide 2019-0 Yes 30mg QD Take [address] dinitrate 1-25 by mouth [facility] - (ISORDIL) 14:56: daily. Medica l 30 MG 07 Center tablet insulin 2019-[address] [facility] aspart 1-25 subcutaneo Lukes - protamine-i 14:56: usly 2 Medi jacquelyn nsulin 07 (two) Center aspart times (NOVOLOG daily with MIX 70/30) breakfast 100 unit/mL and (70-30) dinner. injection HYDROcodone Yes 1{tbl} Take [address] -acetaminop 1-25 tablet by [place] hunter - mini (NORCO 14:56: mouth Medica l 5-325) 07 every 6 Center 5-325 mg (six) per tablet hours as needed for Pain. finasteride Yes 5mg QD Take [address] (PROSCAR) 5 1-25 by mouth Luke s - mg tablet 14:56: daily. Medica l 07 Center gabapentin Yes 300 mg = 1 M emoria 300 MG Oral 7-23 cap, PO, l Capsule 22:48: BID, # 28 Mallorie nn 00 cap, 0 Refill(s) methocarbam No 1,000 mg = Memoria ol 500 mg 7-23 2 tab, PO, l oral tablet 22:44: Q8H, X 14 H ermann 00 day, # 84 tab, 0 Refill(s) Lidocaine Yes 1 patch, Shine sarah 0.05 MG/MG 7- TOP, Q24H, l Transdermal 22:44: # 14 Brent n Patch 00 patch, 0 Refill(s) Docusate Yes 100 mg = 1 Mem oria Sodium 100 7-23 cap, PO, l MG Oral 22:44: BID, # 28 Mallorie nn Capsule 00 cap, 0 [Colace] Refill(s) tramadol No 50 mg = 1 Shine sarah hydrochlori 7-23 tab, PO, l de 50 MG 22:44: Q6H, X 7 Mallorie nn Oral Tablet 00 day, # 28 tab, 0 Refill(s) polyethylen No 17 gm, PO, Memoria e glycol 7-23 BID, X 14 l 3350 oral 22:44: day, # 12 Her aguirre powder for 00 ea, 0 reconstitut Refill(s) ion Tacrolimus No Notes: Memor ia 7-23 Avoid l 04:07: grapefruit Sae 00 and grapefruit juice. (Same As: Prograf) Methadone No Notes: Memori a 7-22 (Same as: l 21:00: Dolophine) Prograf No Notes: Memoria 7-22 (Same As: l 13:00: Prograf) Sae 00 remove No Notes: Memoria patch 04-17 Remove l 11:00: patch 12 Sae 00 hours after applicatio n each day. Prograf No Notes: Memoria 7-22 (Same As: l 01:00: Prograf) Lidocaine No 1 patch, Shine sarah 0.05 MG/MG 04-16 Route: l Transdermal 23:00: TOP, Q24H, Unity Patch 00 Drug form: FILM, Start date: 04/16/18 18:00:00 CDT, Duration: 30 day, Stop date: 05/15/18 18:00:00 CDT tramadol No Notes: Not Mem oria hydrochlori 04-16 to exceed l de 50 MG 23:00: 400mg/day. Her aguirre Oral Tablet 00 (Same As: Ultram) gabapentin No Notes: Memor ia 100 MG Oral 04-16 (Same as: l Capsule 22:00: Neurontin) Fosfomycin No Notes: Memor ia 7-20 (Same as: l 17:00: Monural) mix w/ 90 to 120 ml (3 to 4 ounces) of water and stir to dissolve. Do not use hot water. Take immediatel y after dissolving in water. Methadone No Notes: Memori a 7-20 (Same as: l 17:00: Dolophine) Protonix No Notes: Memoria 7-19 Tablet l 21:30: should not be chewed or crushed. (Same as: Protonix) Methadone No Notes: Memori a 7-19 (Same as: l 18:00: Dolophine) Simethicone No Notes: Shine sarah 7- (Same as: l 01:35: Mylicon) Isolyte S No Notes: Memori a PH-7.4 7-18 (Same as: l (Bolus) IV 15:44: Isolyte S He rmann 00 PH7.4) multivitami No 1 tab, PO, Memoria n 7-18 Daily l 14:26: Sae 00 Isolyte S No Notes: Memori a PH-7.4 7-18 (Same as: l (Bolus) IV 10:06: Isolyte S He rmann 00 PH 7.4) magnesium No Notes: Memori a citrate 18 (Same as: l 58.2 MG/ML 02:31: Citrate of H ermann Oral 00 Magnesia) Solution Concentrat ion: 1.745 gm / 30 mL molasses No Notes: Memoria 7-17 (Same l 22:21: as:Molasse Unity 00 s) Flomax No Notes: Memoria 7-17 (Same As: l 22:00: Flomax) Unity 00 "Do Not Crush" Dulcolax No Notes: Memoria Laxative -17 (Same As: l 21:27: Dulcolax, Sae 00 Bisco-Lax) remove No Notes: Memoria patch 04-12 Remove l 19:05: patch 12 Sae 00 hours after applicatio n each day. Fosfomycin No Notes: Memor ia -17 (Same as: l 17:00: Monural) Sae 00 mix w/ 90 to 120 ml (3 to 4 ounces) of water and stir to dissolve. Do not use hot water. Take immediatel y after dissolving in water. Lidocaine No Notes: Memori a Hydrochlori -17 Apply only l de 0.05 17:00: once for Brent n MG/MG 00 up to 12 Transdermal hours in a Patch 24-hour [Lidoderm] period (12 hours on and 12 hours off). (Same as: Lidoderm) "Remove old patch before applicatio n of new patch" Oxycodone No Notes: Memori a Hydrochlori -17 (Same as: l de 5 MG 15:29: Roxicodone Herm kris Oral Tablet 00 ) gabapentin No Notes: Memor ia 100 MG Oral 16 (Same as: l Capsule 21:00: Neurontin) Herm kris 00 Flomax No Notes: Memoria 7-16 (Same As: l 13:30: Flomax) Sae "Do Not Crush" sennosides, No Notes: Shine sarah RESIDENTIAL 7-15 (Same as: l 22:00: Senokot) Sae 00 Miralax No Notes: Memoria 7-15 Dissolve l 22:00: in 8 oz of Sae 00 water or juice. (Same as: Miralax) Oxycodone No Notes: Memori a Hydrochlori 7-15 (Same as: l de 5 MG 17:00: Roxicodone Herm kris Oral Tablet ) Bupivacaine No Notes: Shine sarah liposome 7-15 (Same as: l 17:00: Exparel) Sae 00 NOT FOR IV use Postoperat tricia analgesia: [...] Laxative 7-15 (Same As: l 16:54: Dulcolax, Bisco-Lax) Alprazolam No Notes: Memor ia 0.5 MG Oral 7-15 With food l Tablet 16:37: or milk Sae [Xanax] 00 (Same as: Xanax) Aspirin 81 No Notes: Do Me moria MG Enteric 7-15 not crush l Coated 14:00: or chew. Unity Tablet 00 (Same As: Ecotrin) sennosides, No Notes: Shine sarah RESIDENTIAL 7-15 (Same as: l 14:00: Senokot) Sae Miralax No Notes: Memoria 7-15 Dissolve l 14:00: in 8 oz of Sae 00 water or juice. (Same as: Miralax) Imdur No Notes: Memoria 7-15 (Same l 14:00: as:Imdur) Unity 00 "Do Not Crush" Take on empty stomach/ full glass of water. Do not crush torsemide No Notes: Memori a 7-15 (Same As: l 14:00: Demadex) Unity Alprazolam No Notes: Memor ia 0.5 MG Oral 7-15 With food l Tablet 03:31: or milk Unity [Xanax] 00 (Same as: Xanax) Pravastatin No Notes: Shine sarah 7-15 (Same as: l 02:00: Pravachol) Unity 00 Sulfamethox No Notes: One Memoria azole 800 7-14 DS tablet l MG / 22:28: = Unity Trimethopri 00 trimethopr m 160 MG im [...] Memoria 7-14 (Same as: l 17:05: Lasix) Unity 00 Oxycodone No Notes: Memori a Hydrochlori 7-14 (Same as: l de 5 MG 17:02: Roxicodone Herm kris Oral Tablet 00 ) torsemide No 20 mg, Memori a 7-14 Route: l 17:00: IVPB, Unity 00 ONCE, Dosing Weight 87.273, kg, Priority: NOW, Start date: 04/09/18 12:00:00 CDT, Stop date: 04/09/18 12:00:00 CDT Dulcolax No Notes: Memoria Laxative 7-14 (Same As: l 15:36: Dulcolax, Sae Bisco-Lax) Labetalol No Notes: Memori a 7-14 With food. l 15:29: (Same Sae 00 as:Trandat e, Normodyne) Insulin No 60 Memoria regular 7-14 units) l 15:22: WASTE: F/P Sae - Black; E - Municipal Trash Bin Stable for 28 days at room temperatur e Expires in days from ____Date Glucagon No 1 mg, Memoria 7-14 Route: IM, l 15:22: Drug form: Unity 00 PDR/INJ, PRN, Dosing Weight 87.273, kg, PRN [...] CDT Oxycodone No Notes: Memori a Hydrochlori 7-14 (Same as: l de 5 MG 14:31: Roxicodone Herm kris Oral Tablet 00 ) gabapentin No 300 mg, 1 Me moria 300 MG Oral 7-14 cap, l Capsule 13:42: Route: PO, Herm kris 00 ONCE, Dosing Weight 87.273, kg, Start date: 04/09/18 8:42:00 CDT, Stop date: 04/09/18 8:42:00 CDT Robaxin No Notes: Memoria 7-14 (Same l 13:00: as:Robaxin Sae ) Tramadol No Notes: Not Mem oria 7-14 to exceed l 09:00: 400mg/day. Sae 00 (Same As: Ultram) Streptococc No Notes: Shine sarah us 7-14 Shake well l pneumoniae 03:20: prior to Her aguirre serotype 1 12 use (Same capsular as: antigen Prevnar diphtheria 13) [id number] protein conjugate vaccine / Streptococc us pneumoniae serotype 14 capsular antigen diphtheria [id number] protein conjugate vaccine / Streptococc us pneumoniae serotype 18C capsular antigen d remove No Notes: Memoria patch 7-13 Remove l 21:00: patch 12 Sae 00 hours after applicatio n each day. Esomeprazol No 20 mg = 1 M emoria e 20 MG 7-13 cap, PO, l Enteric 17:54: Daily, 0 Brent n Coated 00 Refill(s) Capsule [Nexium] montelukast No 10 mg = 1 M emoria 10 MG Oral 7-13 tab, PO, l Tablet 17:51: PRN, 0 Unity [Singulair] 00 Refill(s) Alprazolam No 0.5 mg = 1 M emoria 0.5 MG Oral 7-13 tab, PO, l Tablet 17:51: Daily, 0 Sae 00 Refill(s) Ferrousal No 325 mg = 1 Me moria 325 mg oral 7-13 tab, PO, l tablet 17:51: Daily, 0 Unity 00 Refill(s) tamsulosin No 0.4 mg = [...] tab, PO, l tablet 17:45: BID, 0 Unity 00 Refill(s) gabapentin No 300 mg = 1 M emoria 300 MG Oral 7-13 cap, PO, l Capsule 17:45: TID, 0 Sae 00 Refill(s) Metolazone No 2.5 mg = [...] tab, PO, l tablet 17:44: BID, 0 Sae 00 Refill(s) pravastatin No 80 mg = 1 M emoria 80 mg oral 7-13 tab, PO, l tablet 17:19: Daily, 0 Unity 00 Refill(s) allopurinol No 100 mg = 1 Memoria 100 mg oral 7-13 tab, PO, l tablet 17:19: BID, 0 Unity 00 Refill(s) magnesium No 400 mg = 1 Me moria oxide 400 7-13 tab, PO, l mg oral 17:18: BID, 0 Sae tablet 00 Refill(s) Folic Acid No 1 mg = 1 Mem oria 1 MG Oral 7-13 tab, PO, l Tablet 17:17: Daily, 0 Unity 00 Refill(s) Fish Oil No 1,000 mg = Mem oria 1000 mg 7-13 1 cap, PO, l oral 17:14: BID, 0 Unity capsule 00 Refill(s) thiamine No 100 mg = 1 Mem oria 100 mg oral 7-13 tab, PO, l tablet 17:13: Daily, 0 Sae 00 Refill(s) multivitami No Daily, 0 Me moria n 7-13 Refill(s) l 17:13: Unity 00 Calcium No 1 tab, PO, Shine sarah Carbonate 7-13 BID, 0 l 1500 MG / 17:13: Refill(s) Her aguirre Cholecalcif 00 kang 400 UNT Oral Tablet Aspirin 81 No 81 mg = 1 Me moria MG Chewable 7-13 tab, CHEW, l Tablet 17:12: Daily, 0 Unity 00 Refill(s) NovoLIN No 24 unit, Memori a 70/30 7-13 SUB-Q, l 17:11: QPM, 0 Sae 00 Refill(s) NovoLIN 2018 No 18 unit, Memori a 70/30 7-13 SUB-Q, l 17:09: QAM, 0 Unity 00 Refill(s) predniSONE No 5 mg = 1 Mem oria 5 mg oral 7-13 tab, PO, l tablet 17:09: Daily, 0 Sae Refill(s) tacrolimus No 0.5 mg = 1 M emoria 0.5 mg oral 7-13 cap, PO, l capsule 17:09: Q12H, 0 Unity 00 Refill(s) Prednisone No Notes: Memor ia 7-13 Take with l 14:00: food. Unity 00 Tacrolimus No Notes: Memor ia 7-13 Avoid l 13:00: grapefruit Unity 00 and grapefruit juice. (Same As: Prograf) heparin No Notes: Memoria sodium, 7- porcine l porcine 13:00: heparin Sae 2500 UNT/ML 00 Injectable Solution acetaminoph No Notes: Max Memoria en - acetaminop l 12:23: hen 4000 Sae 00 mg/day (4 gm/day). (Same as: Tylenol Extra Strength) iodixanol No 100 mL, Memor ia 04-08 Route: l 08:59: IVP, Drug Unity 00 Form: SOLN, kg, ONCALL, STAT, Start date: 04/08/18 3:59:00 CDT, Duration: 1 doses or times, Dose = 2.2ml/kg, Max dose = 100ml -- "To be infused by Radiology Staff ONLY" Lidocaine No Notes: Memori a Hydrochlori -13 (Same as: l de 0.05 07:00: Lidoderm) Mallorie nn MG/MG 00 "Remove Transdermal old patch Patch before [Lidoderm] applicatio n of new patch" Oxycodone No Notes: Memori a Hydrochlori - (Same as: l de 5 MG 06:48: Roxicodone Herm kris Oral Tablet 00 ) Tramadol No Notes: Not Mem oria 7-13 to exceed l 06:48: 400mg/day. Sae 00 (Same As: Ultram) gabapentin No Notes: Memor ia 04-08 (Same as: l 06:46: Neurontin) Sae 00 Acetaminoph No Notes: Max Memoria en 04-08 acetaminop l 06:46: hen 4000 Unity 00 mg/day (4 gm/day). (Same as: Tylenol Extra Strength) Fentanyl No Notes: Memoria 04-08 (Same as: l 04:37: Sublimaze) Sae Preservat tricia free. Saline No Notes: Memoria Flush 0.9% 04-08 (Same as: l 04:37: BD Unity 00 Posiflush) Vital Signs Vital Name Observation Time Observation Value Comments Source Respitory Rate 2018-04-18 23:44:00 Memori al Sae Heart Rate 2018-04-18 23:44:00 [facility] Systolic (mm Hg) 2018-04-18 23:44:00 Shine rial Sae Diastolic (mm Hg) 2018-04-18 23:44:00 Mem orial Unity Temperature Oral (F) 2018-04-18 23:44:00 97.5 F [facility] Heart Rate 2018-04-18 17:46:00 [facility] Sae Respitory Rate 2018-04-18 17:46:00 Memori al Sae Temperature Oral (F) 2018-04-18 17:46:00 97.8 F [facility] Sae Systolic (mm Hg) 2018-04-18 17:46:00 Shine rial Unity Diastolic (mm Hg) 2018-04-18 17:46:00 Mem orial Sae Systolic (mm Hg) 2018-04-18 14:34:00 Shine rial Sae Diastolic (mm Hg) 2018-04-18 14:34:00 Mem orial Sae Temperature Oral (F) 2018-04-18 14:34:00 97.5 F Memorial Sae Heart Rate 2018-04-18 14:34:00 [facility] Sae Respitory Rate 2018-04-18 14:34:00 Memori al Sae Weight 2018-04-09 02:59:00 [facility] BMI Calculated 2018-04-09 02:59:00 Memori al Unity Height 2018-04-09 02:59:00 175.26 cm [facility] Procedures This patient has no known procedures. Plan of Care Planned Activity Planned Date Details Comments Source Future Scheduled 2020-05-28 INFLUENZA VACCINE (#1) [facility] 00:[facility]:00 [code = INFLUENZA Medical Ce nter VACCINE (#1)] Future Scheduled 2008 PNEUMOCOCCAL 65+ [facility] - Test 00:00:00 (1 of 1 - Medical Center [id number]) [code = PNEUMOCOCCAL 65+ YRS (1 of 1 - [id number] PCV13)] Future Scheduled 1998-12-[address] [facility] - Test 00:00:00 WELLNESS (YEAR 2 or Medical Center FIRST YEAR if no IPPE) [code = MEDICARE ANNUAL WELLNESS (YEAR 2 or FIRST YEAR if no IPPE)] Encounters Start End Encounter Admission Attending Care Care Encounter Source Date/Time Date/Time Type Type Clinicians Facility Department ID 2020-10-31 2020-10-31 Outpatient [facility] [id number] 00:00:00 00:00:[address] 2020-10-03 2020-10-03 Outpatient [facility] [id number] 00:00:00 00:00:[address] 2020-10-03 2020-10-03 Outpatient [facility] [facility] [id number] 00:00:00 00:00:00 RAKAN [address] 2020-09-06 2020-09-06 [facility] [id number] [address] 00:00:00 00:00:00 FAMILIA [address] 2020-08-07 2020-08-07 Orders Doctor TITI [id number] 00:00:00 00:00:00 Only Unassigned, ZEESHAN 350.1.13.10 [place] [facility] [id number] [id number] 2020-07-18 2020-07-18 Outpatient [facility] [id number] 00:00:00 00:00:00 MOHAMMAD [address] 2020-07-18 2020-07-18 Outpatient [facility] [id number] [address] 00:00:00 00:00:[address] 2020-07-18 2020-07-18 Outpatient NAKAWAH, [facility] [id number] [address] 00:00:00 00:00:00 MOHAMMAD [address] 2020-07-09 2020-07-09 Outpatient BHIMARAJ, [facility] [id number] 00:00:00 00:00:00 [place] [address] 2020-07-09 2020-07-09 Outpatient BHIMARAJ, [facility] [id number] [address] 00:00:00 00:00:00 [place] [address] 2020-05-30 2020-05-30 Outpatient NAKAWAH, [facility] [id number] [address] 00:00:00 00:00:00 MOHAMMAD [address] 2020-05-13 2020-05-13 Outpatient BHDANNYRAJ, [facility] [id number] 00:00:00 00:00:00 [place] [address] 2020-05-07 2020-05-07 [facility] [id number] [address] 00:00:00 00:00:00 SANTI [address] 2020-02-28 2020-02-28 Outpatient GEOVANNI, [facility] [id number] 00:00:00 00:00:00 YAZ [address] 2020-02-26 2020-02-26 Outpatient NAKAWAH, [facility] [id number] 00:00:00 00:00:00 MOHAMMAD [address] 2020-02-21 2020-02-21 Outpatient GEOVANNI, [facility] [id number] [address] 00:00:00 00:00:00 YAZ [address] 2020-02-08 2020-02-08 Outpatient GEOVANNI, [facility] 021 [id number] [address] 00:00:00 00:00:00 YAZ [address] 2019-12-06 2019-12-06 Outpatient AHMAD, [facility] [id number] [address] 00:00:00 00:00:00 PORTILLO [address] 2019-11-07 2019-11-07 Outpatient EBENEZER, [facility] [id number] [address] 00:00:00 00:00:00 ASHRITH 730 [address] i 2019-11-07 2019-11-07 Outpatient [facility], [facility] [id number] [address] 00:00:00 00:00:00 ASHRITH 056 Method i 2019-11-02 2019-11-02 Outpatient [facility] [id number] 00:00:00 00:00:00 ASHRITH 744 [address] i 2019-11-02 2019-11-02 Outpatient [facility] [id number] 00:00:00 00:00:00 ASHRITH 621 Method i 2019-11-02 2019-11-02 Outpatient [facility] [id number] 00:00:00 00:00:00 ASHRITH 598 Method i 2019-11-02 2019-11-02 Outpatient [facility] [id number] 00:00:00 00:00:00 ASHRITH 830 Method i 2019-10-24 2019-10-24 [facility] Radiology [facility] 1.2.840.114 [id number] 11:09:00 23:59:00 Encounter [place] [id number] [place] 4.2.7.2.686 [place] [id number] 2019-10-24 2019-10-24 Orders Doctor TITI 1.2.840.114 [id number] 00:00:00 00:00:00 Only Unassigned, ZEESHAN 350.1.13.10 [place] [facility] 4.2.7.2.686 [id number] 2018-04-07 2018-04-18 Outpatient [facility] [id number] 23:09:00 19:45:00 Viri Landeros 2018-04-07 2018-04-18 Outpatient [facility]ally [facility] [id number] 23:09:00 19:45:00 Viri Landeros Results Test Description Test Time Test Comments Results Result Sour e Comments [place], 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 Taylor, as an intra-procedure imaging consultation was not requested. Reported fluoroscopy time: 44.5 seconds. Signed: Alexi Castillo Verified Date/Time: 10/21/2018 14:21:41 Reading Location: [facility] Radiology Reading Room -GLUCOSE METER 2018-10-21 14:02:00 Test Item Value Reference Range Interpretation Comme nts POC-GLUCOSE METER (Nutshell) (test 160 mg/dL 70-110 H TESTED AT [facility] [address] [place], [place] [address]NER code = 1538) [facility] 7703 0 POCT-GLUCOSE [id number] 12:28:00 Test Item Value Reference Range Interpretation Comments POC-GLUCOSE METER 158 mg/dL 70-110 H TESTED AT [place] [address] ([facility]) (test code = MIGDALIA [employer] [facility] 1538) [address] [place], [employer] IN OR/30 MINUTE [id number] 13:42:00Reason for exam:- >bilateral C3-C5 Medial Branch BlockFINAL REPORT Fluoroscopy 4 views intraoperative 09/16/2018 1:37 PM CLINICAL HISTORY: Instrument localization COMPARISON: None available IMPRESSION: Please correlate imaging report findings with the procedure note prepared by Dr. Taylor, as an intra-procedure imaging consultation was not requested. Reported fluoroscopy time: 35.8 seconds. Signed: Alexi Castillo Verified Date/Time: 09/16/2018 13:42:50 Reading Location: [facility] Radiology Reading Room POCT- GLUCOSE [id number] 12:18:00 Test Item Value Reference Range Interpretation Comments POC-GLUCOSE METER 154 mg/dL 70-110 H TESTED AT [place] [address] ([facility]) (test code = MIGD[facility]IA [employer] [facility] 1538) [id number] TCOQZXVXZO7728-82-19 10:58:003.3[facility] YSFTR2847-24-70 05:30:00 1.61[facility] QVWFJ5733-16-21 05:30:0042[facility]annCHE[facility] PANEL 2018-04-17 05:30:0053[facility] DZYBQ2785-17-48 05:30:24468Ypdndkwj HermannCHEM NXGXA3761-41-59 05:30:98512Rmoyxaef HermannCHEM UKLPB3552-86-26 05:30:004.9[facility] HLKLA0850-42-56 05:30:0099[facility] GCLJC4914-31-05 05:30:0025[facility] SRNQF4479-18-86 05:30:008.6 [facility] EDOJA3667-43-34 05:30:0014.9[facility]annTOXICOLOGY 2018-04-16 13:46:00<2.0[facility] EUCUW0397-78-14 05:38:59094 [facility] LXAYT1725-05-72 05:38:001.65[facility]annCHE[facility] PANEL 2018-04-16 05:38:0051[facility]annCHE[facility] RETPZ7434-15-43 05:38:55574Ztzukofq HermannCHEM PGHYW0178-82-50 05:38:23037Ovejvoma HermannCHEM QEMYC3924-70-18 05:38:0027[facility] WZJMN0796-41-22 05:38:005.2[facility] SZTNS1264-36-33 05:38:0040[facility] UITJB7578-04-48 05:38:0014.2 [facility] DWNOU7274-92-25 05:38:008.4[facility]annCHE[facility] PANEL 2018-04-15 05:13:0037[facility]annCHE[facility] GOQIO0127-75-34 05:13:005.6[facility] FALFN6049-59-69 05:13:0099[facility] PNJHB6593-91-02 05:13:0029[facility] JIAKH4204-42-07 05:13:008.9[facility] MIMDJ5445-38-15 05:13:0014.6[facility] XUCCW1624-51-85 05:13:0056 [facility] OTBUN4417-02-19 05:13:87137Rugymfjs HermannCHEM PANEL 2018-04-15 05:13:31296Apfrzdns HermannCHEM AUAFP9891-88-32 05:13:001.77[facility] EXHKW7616-31-61 05:43:004.1[facility] TNKRN1867-64-84 05:43:002.8[facility] LdmstnrDOFNLCEWQB6951-11-33 05:43:0087.0[facility] QGEZZOYSWK8320-30-63 05:43:006.6[facility] LlimuqfHBIKYWZTLN2832-27-07 05:43:007.0 [facility] WxmydlsRROMPMOHUK4840-32-54 05:43:006.0[facility]annHEMATOLOGY 2018-04-13 05:43:000.6[facility] IxhegbrORVZXPCVZH5961-25-50 05:43:000.4[facility] KrneaiuNIGNNUNJBP6386-01-41 05:43:00 Test Item Value Reference Range Interpretation Comments MCH (test code = MCH) 32.6 pg 27.0-31.0 [facility] XgbagqbDMTFFZDMYW6549-61-24 05:43:0033.9[facility]annHEMATOLOGY 2018-04-13 05:43:0015.3[facility] RkevlggVBYXVTKVGG2707-61-12 05:43:96259Buwchtox MwlkhvkHLPPLSNDWG5444-43-41 05:43:009.6[facility] GcllhyaOJDHWZNYON4074-15-01 05:43:007.6[facility] KrdzfcnIVMVNUUSED7821-87-88 05:43:0031.0[facility] FYPZWFAFBI8603-17-00 05:43:0096.1[facility] DvgfmrdUDCBTMGSWS1296-54-65 05:43:00 3.22[facility] MicwzgdRNHLDZJNEC2957-36-52 05:43:0010.5[facility]annCHEM PANEL 2018-04-12 05:57:003.6[facility]annCHE[facility] BOKHW8668-44-09 05:57:002.4[facility] WdajhoxULNEVMUQYR4873-15-81 05:57:0084.1[facility] FhqxqtaCISCABKSLT9825-22-83 05:57:000.9[facility] CjwvpfcXDXJPHVBOS6933-12-37 05:57:000.2[facility] Sae EBNJGVYDHV2486-13-03 05:57:000.4[facility] VwymdbvYAKMPMHTTE7068-12-59 05:57:009.2 [facility] JxqflmpDLDZTBWDKJ8866-10-87 05:57:006.7[facility]annHEMATOLOGY 2018-04-12 05:57:008.6[facility] NvywrncEFAAKYQVWO6519-47-31 05:57:000.7[facility] PzvhxccBUGWXPLTBM3371-22-34 05:57:90678Wksfsqsd ZkavqxnWOMDIJNQCC7001-20-54 05:57:0015.3[facility] IvfetvwLJJTIUNPPW8557-66-79 05:57:0096.8[facility] GWQISSUJAI0290-71-42 05:57:00 Test Item Value Reference Range Interpretation Comments MCH (test code = MCH) 31.8 pg 27.0-31.0 [facility] BmzutquILLYXBEWGD9822-54-67 05:57:0010.6[facility]annHEMATOLOGY 2018-04-12 05:57:003.32[facility] PwzvpfcOEEZAZRCVB7641-48-18 05:57:0032.8[facility] IgggdjtXCURJZZKDN5898-30-54 05:57:0032.2[facility] MadlbasUVZDAEWFVT7461-79-54 05:57:009.7[facility] WswpawpIZPCZLIILC5151-67-30 05:57:0010.9[facility] VZZDXWAGOW0175-67-57 12:36:004.3[facility] GaesflpRIDAKAEOTC9999-13-27 05:53:007.8 [facility] FhmxpsoEEZAVCBEMV6223-46-78 05:53:007.6[facility]annHEMATOLOGY 2018-04-11 05:53:000.6[facility] TimckobCJXTJJGENF0612-40-87 05:53:009.1[facility] RfeceduBIWLJSVOVO9515-58-86 05:53:000.2[facility] WkztqgbDNLTRROXTB2097-68-52 05:53:000.8[facility] GmrzydhEJNMMJNTTB8638-65-21 05:53:000.8[facility] RIPMIAFODI7293-53-89 05:53:000.1[facility] XvidmatZMNZBQOYDV6885-24-22 05:53:00 83.8[facility] ObcsztzSCQRBSAZAE4044-01-18 05:53:003.33[facility]annHEMATOLOGY 2018-04-11 05:53:0010.8[facility] XfzrogjIDMFLGXJXK5985-50-60 05:53:0015.2[facility] VbvzpfrGBMFNHIQFN3944-83-30 05:53:82647Jmltpghq JhbmdsqKJSIXYMLRW2819-90-88 05:53:009.6[facility] NavxssrASPITBEQVQ7349-96-14 05:53:0033.5[facility] FVMEOGLAOC6588-01-82 05:53:00 Test Item Value Reference Range Interpretation Comments MCH (test code = MCH) 32.3 pg 27.0-31.0 [facility] GugxgsyPIMKNPFQNQ0387-53-96 05:53:0032.1[facility]annHEMATOLOGY 2018-04-11 05:53:0096.2[facility] UuxrzqgDFUYGEKMJA3058-19-12 05:53:0010.8[facility] HermannGENTAMICIN:SUSC:PT:ISOLATE:ORDQN:LOD8950-16-05 19:19:00Escherichia coli [facility]DR[facility] ZERZJX7393-64-28 18:42:00Negative *NA*(04/09/18 1:42 PM) [facility] HZEKDL1515-55-53 18:42:00Negative *NA*(04/09/18 1:42 PM) [facility] PUAPXF6036-12-08 18:42:00Negative *NA*(04/09/18 1:42 PM) [facility] RTRJDA4907-15-87 18:42:00Positive *ABN*(04/09/18 1:42 PM) [facility] QZRTUB2696-45-91 18:42:00See Note (04/09/18 1:42 PM)[facility] GROOHK9160-92-25 18:42:00Negative *NA*(04/09/18 1:42 PM)[facility] IZHKTG3710-52-02 18:42:00Negative *NA*(04/09/18 1:42 PM)[facility] SYLEYY4028-34-94 18:42:00Negative *NA*(04/09/18 1:42 PM)[facility] AND RSQLK1163-31-72 18:42:00Large *ABN*(04/09/18 1:42 PM)[facility] YRGGV8358-59-99 18:42:00Negative (04/09/18 1:42 PM)[facility] WZPMC2732-97-80 18:42:00Large *ABN*(04/09/18 1:42 PM)[facility] NNUMB9238-20-85 18:42:00>182[facility] STOOL 2018-04-09 18:42:09361Pslgrpfz HermannURINE AND KRMIY7115-01-36 18:42:00Negative *NA*(04/09/18 1:42 PM)[facility] BYBGP5414-27-63 18:42:00Yellow *NA*(04/09/18 1:42 PM)[facility] NVDGD3703-01-20 18:42:00Marked *ABN*(04/09/18 1:42 PM)[facility] MGARQ8031-93-45 18:42:00 Test Item Value Reference Range Interpretation Comments UA Spec Grav (test code = UA Spec 1.013 1 Grav) [facility] WONLQ8443-60-70 18:42:00 Test Item Value Reference Range Interpretation Comments UA pH (test code = UA pH) 5.5 1 5.0-8.0 [facility] ZlqlwtoHMUNCXTKYR6817-55-60 10:37:000.2[facility]annHEMATOLOGY 2018-04-09 10:37:000.8[facility] YrgviirPQKEOLAUEW3161-73-73 10:37:000.1[facility] AND BCUJK2237-88-67 05:20:006-10 (04/08/18 12:20 AM)[facility] URINE AND WFLWX7633-52-50 05:20:00Yellow *NA*(04/08/18 12:20 AM)[facility] URINE AND XFDSF2441-18-06 05:20:00Negative (04/08/18 12:20 AM)[facility] URINE AND YNRYK8680-99-86 05:20:00 Test Item Value Reference Range Interpretation Comments UA pH (test code = UA pH) 5.5 1 5.0-8.0 [facility] KQULM8024-09-90 05:20:00 Test Item Value Reference Range Interpretation Comments UA Spec Grav (test code = UA Spec 1.025 1 Grav) [facility] NGKHK9573-86-58 05:20:00Slight Cloudy (04/08/18 12:20 AM)[facility] ZXXJY9735-54-93 05:20:00Negative (04/08/18 12:20 AM) [facility] FWIRM2736-71-56 05:20:000.2[facility] GPRAN9527-98-87 05:20:00Large *ABN*(04/08/18 12:20 AM)[facility] AWLLH4993-35-50 05:20:00Negative *NA*(04/08/18 12:20 AM)[facility] SVVPJ2555-84-25 05:20:00Negative *NA*(04/08/18 12:20 AM)[facility] VVJPO8325-61-19 05:20:00Negative (04/08/18 12:20 AM)[facility]annBLOOD BANK JHXEFGM0690-06-30 04:50:00Negative (04/07/18 11:50 PM)[facility]annCHEM PANEL 2018-04-08 04:41:480.8[facility]annCHEM PGURK9500-69-59 04:41:487.0[facility]annCHEM VXKXU4219-95-71 04:41:483.7[facility]annCHEM IWVIK8809-68-60 04:41:4846[facility] IUZCK9967-28-11 04:41:4860[facility]annCHEM HNVXT8345-47-79 04:41:4865[facility]epariAlameda HospitalannCHEM XHUOO0879-19-68 04:41:480.7 [facility] VMVJH5100-86-46 04:41:480.6MG[facility] HospitalannCHEM [facility] 2018-04-08 04:41:480.1[facility]-13 04:41:48 Test Item Value Reference Range Interpretation Comments A/G Ratio (test code = A/G Ratio) 1.1 1 0.7-1.6 [facility]2018-07-13 [facility] 2018-04-08 04:41:48 Test Item Value Reference Range Interpretation Comments PTT (test code = PTT) 29.3 s 22.9-35.8 [facility]EiwmtwgFSOGVMLVPV9804-53-05 04:41:48 Test Item Value Reference Range Interpretation Comments INR (test code = INR) 1.19 1 0.85-1.17 [facility] CenterHhczpioHGUNHONXSA7442-71-29 04:41:48 Test Item Value Reference Range Interpretation Comments PT (test code = PT) 15.2 s 12.0-14.7 [facility] CenterPqazbgiJKTFIGHRDQ2607-24-44 04:41:[address] [place] [address] 2018-04-08 04:41:48 Test Item Value Reference Range Interpretation Comments ACT (TEG) Rapid (test code = ACT (TEG) 97 s 86-118 Rapid) [facility] CenterUzplyykAVTDNEZCHQ3392-72-32 04:41:488.1[facility] 2018-04-08 04:41:48 Test Item Value Reference Range Interpretation Comments Split Point Rapid (test code = Split 0.4 min Point Rapid) [facility] CenterFfmrkqoWFIGEHKOAC5705-61-47 04:41:48 Test Item Value Reference Range Interpretation Comments R-time Rapid (test code = R-time 0.5 min 0.4-0.7 Rapid) [facility] CenterSvewzpeNACOPUBPLD8516-26-94 04:41:48 Test Item Value Reference Range Interpretation Comments Angle Rapid (test code = Angle 76 degrees 64-80 Rapid) [facility] CenterScmyzpdEFGGZSLENI7170-44-19 04:41:48 Test Item Value Reference Range Interpretation Comments Max Amplitude Rapid (test code = Max 62 mm 52-71 Amplitude Rapid) [facility] HospitalOqdgiuwMFYMYFFLAG8992-67-69 04:41:48 Test Item Value Reference Range Interpretation Comments K-time Rapid (test code = K-time 1.2 min 0.6-2.3 Rapid) [facility] CenterRqhanlwUFUAVAJAPR6342-32-32 04:41:48<0.003[facility] HospitalannTOXICOLOGY 2018-04-08 04:41:48<3[facility]
[2020-12-31] MEDS ORDERED: LIDOCAINE 1% W/EPI 1:100,000 MDV 20 ML VIAL ONE (21:00)
--- NOTE | 2020-12-31 21:03 | EDPHYS ---
Physician Documentation [facility] Name: Octavio Bueno Age: 75 yrs Sex: Male : 1945 Arrival Date: 12/31/2020 Time: 19:42 Bed 13 Private MD: MILDAY Physician Steven Esquivel HPI: 12/31 20:56 This 75 yrs old Male presents to ER via Wheelchair with complaints of rob Laceration To Leg. 20:56 The patient has a laceration related to: walking. The laceration(s) is(are) located on rob the medial aspect of left calf. Onset: The symptoms/episode began/occurred just prior to arrival. Associated signs and symptoms: The patient has no apparent associated signs or symptoms. The patient has not experienced similar symptoms in the past. Historical: - Allergies: 19:53 NKA; ll1 - PMHx: 19:53 Chronic kidney disease stage V; Diabetes - IDDM; Gout; Hyperlipidemia; Hypertension; ll1 Migraines r/t head injury; Myocardial infarction; - PSHx: 19:53 CABG; heart transplant 2006; ll1 - Immunization history:: Flu vaccine is not up to date. - Social history:: Smoking status: Patient denies any tobacco usage or history of. ROS: 20:58 Constitutional: Negative for fever, chills, and weight loss, Eyes: Negative for injury, rob pain, redness, and discharge, ENT: Negative for injury, pain, and discharge, Neck: Negative for injury, pain, and swelling, Cardiovascular: Negative for chest pain, palpitations, and edema, Respiratory: Negative for shortness of breath, cough, wheezing, and pleuritic chest pain, Abdomen/GI: Negative for abdominal pain, nausea, vomiting, diarrhea, and constipation, Back: Negative for injury and pain, : Negative for injury, bleeding, discharge, and swelling, Skin: Negative for injury, rash, and discoloration, Neuro: Negative for headache, weakness, numbness, tingling, and seizure, Psych: Negative for depression, anxiety, suicide ideation, homicidal ideation, and hallucinations, Allergy/Immunology: Negative for hives, rash, and allergies, Endocrine: Negative for neck swelling, polydipsia, polyuria, polyphagia, and marked weight changes, Hematologic/Lymphatic: Negative for swollen nodes, abnormal bleeding, and unusual bruising. 20:58 MS/extremity: Positive for laceration, pain, of the medial aspect of left calf. Exam: 20:58 Constitutional: This is a well developed, well nourished patient who is awake, alert, rob and in no acute distress. Head/Face: Normocephalic, atraumatic. Eyes: Pupils equal round and reactive to light, extra-ocular motions intact. Lids and lashes normal. Conjunctiva and sclera are non-icteric and not injected. Cornea within normal limits. Periorbital areas with no swelling, redness, or edema. ENT: Nares patent. No nasal discharge, no septal abnormalities noted. Tympanic membranes are normal and external auditory canals are clear. Oropharynx with no redness, swelling, or masses, exudates, or evidence of obstruction, uvula midline. Mucous membranes moist. Neck: Trachea midline, no thyromegaly or masses palpated, and no cervical lymphadenopathy. Supple, full range of motion without nuchal rigidity, or vertebral point tenderness. No Meningismus. Chest/axilla: Normal chest wall appearance and motion. Nontender with no deformity. No lesions are appreciated. Cardiovascular: Regular rate and rhythm with a normal S1 and S2. No gallops, murmurs, or rubs. Normal PMI, no JVD. No pulse deficits. Respiratory: Lungs have equal breath sounds bilaterally, clear to auscultation and percussion. No rales, rhonchi or wheezes noted. No increased work of breathing, no retractions or nasal flaring. Abdomen/GI: Soft, non-tender, with normal bowel sounds. No distension or tympany. No guarding or rebound. No evidence of tenderness throughout. Back: No spinal tenderness. No costovertebral tenderness. Full range of motion. Male : Normal genitalia with no discharge or lesions. Skin: Warm, dry with normal turgor. Normal color with no rashes, no lesions, and no evidence of cellulitis. Neuro: Awake and alert, GCS 15, oriented to person, place, time, and situation. Cranial nerves II-XII grossly intact. Motor strength 5/5 in all extremities. Sensory grossly intact. Cerebellar exam normal. Normal gait. Psych: Awake, alert, with orientation to person, place and time. Behavior, mood, and affect are within normal limits. 20:58 Musculoskeletal/extremity: ROM: no acute changes, intact in all extremities, full active range of motion, full passive range of motion, Circulation is intact in all extremities. Sensation intact. Compartment Syndrome exam of affected extremity: is normal. Vital Signs: 19:50 BP 153 / 73; Pulse 80; Resp 17; Temp 97.6; Pulse Ox 95% ; Weight 84.82 kg; Height 5 ft. ll1 9 in. (175.26 cm); Pain 8/10; 21:26 BP 159 / 88; Pulse 80; Resp 16 S; Pulse Ox 98% on R/A; bb 19:50 Body Mass Index 27.61 (84.82 kg, 175.26 cm) ll1 Laceration: 20:58 Wound Repair of 2.5cm ( 1.0in ) subcutaneous laceration to medial aspect of left calf. rob Minimal bleeding noted.. Distal neuro/vascular/tendon intact. Anesthesia: Local anesthetic administered with 5 mls of 1% lidocaine w/ Epi. Wound prep: Moderate cleansing by me. Skin closed with 4 5-0 Prolene using interrupted sutures and sterile technique. Dressed with Neosporin, pressure dressing. Patient tolerated well. MDM: 20:34 Patient medically screened. rob 20:58 Differential diagnosis: superficial laceration, vascular injury. Data reviewed: vital rob signs, nurses notes. Data interpreted: library monitor: not applicable for this patient encounter. rate is 80 beats/min, rhythm is regular, Pulse oximetry: on room air is 95 %. Test interpretation: by ED physician or midlevel provider:. Counseling: I had a detailed discussion with the patient and/or guardian regarding: the historical points, exam findings, and any diagnostic results supporting the discharge/admit diagnosis. 12/31 20:56 Order name: Dressing - Wound; Complete Time: 21:03 rob 12/31 20:56 Order name: Gloves, Sterile; Complete Time: 21:03 rob 12/31 20:56 Order name: Setup Suture Tray; Complete Time: 21:03 rob Administered Medications: 21:10 Drug: Bactroban Ointment 2 % 1 application Route: Topical; Site: affected area; bb 21:22 Follow up: Response: No adverse reaction bb 21:12 Drug: KeFLEX (cephalexin) 500 mg Route: PO; bb 21:21 Follow up: Response: No adverse reaction bb Disposition: 12/31/20 21:02 Discharged to Home. Impression: Laceration without foreign body, left lower leg. - Condition is Stable. - Discharge Instructions: Laceration Care, Adult, Laceration Care, Adult, [id number]. - Prescriptions for Keflex 500 mg Oral Capsule - take 1 capsule by ORAL route every 6 hours for 10 days; 40 capsule. Bactroban 2 % Topical Ointment - Apply to affected area 1 application by TOPICAL route every 12 hours; 15 gram. - Medication Reconciliation Form, Thank You Letter, Antibiotic Education, Prescription Opioid Use form. - Follow up: Private Physician; When: 5 - 6 days; Reason: Recheck today's complaints, Continuance of care, Re-evaluation by your physician. Follow up: Benjamín Torres MD; When: 5 - 6 days; Reason: Recheck today's complaints, Re-evaluation by your physician. - Problem is new. - Symptoms have improved. Signatures: Steven Esquivel MD MD cha Ballard, Brenda, RN RN Nelsy Jones RN RN ll1 Corrections: (The following items were deleted from the chart) 21:02 21:02 12/31/2020 21:02 Discharged to Home. Impression: Laceration without foreign body, rob left lower leg. Condition is Stable. Forms are Medication Reconciliation Form, Thank You Letter, Antibiotic Education, Prescription Opioid Use. Follow up: Private Physician; When: 5 - 6 days; Reason: Recheck today's complaints, Continuance of care, Re-evaluation by your physician. Problem is new. Symptoms have improved. rob 21:26 21:02 12/31/2020 21:02 Discharged to Home. Impression: Laceration without foreign body, bb left lower leg. Condition is Stable. Discharge Instructions: Laceration Care, Adult, Laceration Care, Adult, [id number]. Prescriptions for Keflex 500 mg Oral Capsule - take 1 capsule by ORAL route every 6 hours for 10 days; 40 capsule. and Forms are Medication Reconciliation Form, Thank You Letter, Antibiotic Education, Prescription Opioid Use. Follow up: Private Physician; When: 5 - 6 days; Reason: Recheck today's complaints, Continuance of care, Re-evaluation by your physician. Follow up: Benjamín Torres; When: 5 - 6 days; Reason: Recheck today's complaints, Re-evaluation by your physician. Problem is new. Symptoms have improved. rob
--- NOTE | 2020-12-31 21:03 | ER ---
Nurse's Notes [facility] Name: Octavio Bueno Age: 75 yrs Sex: Male : 1945 Arrival Date: 12/31/2020 Time: 19:42 Bed 13 Private MD: Diagnosis: Laceration without foreign body, left lower leg Presentation: 12/31 19:50 Chief complaint: Patient states: 1. <3 cm laceration to Left leg . Hit on a sharp piece ll1 of metal sticking out of the ground around 1800 today. Bleeding controlled after a pressure dressing. 2. Scraped R leg two weeks ago. Site is painful and red. States his R foot started swelling for 2 days. Coronavirus screen: Client denies travel out of the [place] in the last 14 days. At this time, the client does not indicate any symptoms associated with coronavirus-19. Ebola Screen: Patient denies travel to an Ebola-affected area in the 21 days before illness onset. Complicating Factors: There are no complicating factors for this patient. Initial Sepsis Screen: Does the patient meet any 2 criteria? No. Patient's initial sepsis screen is negative. Does the patient have a suspected source of infection? Yes: Skin breakdown/wound. Risk Assessment: Do you want to hurt yourself or someone else? Patient reports no desire to harm self or others. Onset of symptoms was December 31, 2020. 19:50 Method Of Arrival: Wheelchair ll1 19:50 Acuity: YAHIR 4 ll1 Historical: - Allergies: 19:53 NKA; ll1 - PMHx: 19:53 Chronic kidney disease stage V; Diabetes - IDDM; Gout; Hyperlipidemia; Hypertension; ll1 Migraines r/t head injury; Myocardial infarction; - PSHx: 19:53 CABG; heart transplant 2006; ll1 - Immunization history:: Flu vaccine is not up to date. - Social history:: Smoking status: Patient denies any tobacco usage or history of. Screenin:00 Abuse screen: Denies threats or abuse. Nutritional screening: No deficits noted. bb Tuberculosis screening: No symptoms or risk factors identified. Fall Risk None identified. Assessment: 21:00 General: Appears in no apparent distress. Behavior is calm, cooperative. Pain: bb Complains of pain in medial aspect of left calf. Neuro: Level of Consciousness is awake, alert, obeys commands, Oriented to person, place, time, situation. Cardiovascular: No deficits noted. Respiratory: Respiratory effort is even, unlabored, Respiratory pattern is regular. GI: No signs and/or symptoms were reported involving the gastrointestinal system. Derm: Wound noted medial aspect of left calf Wound is small superficial laceration not bleeding less than 2.5 cms. Derm: Skin is fragile, is thin. Musculoskeletal: Circulation, motion, and sensation intact. Injury Description: Laceration sustained to medial aspect of left calf is clean, superficial, 0.5 to 2.5 cm long, is bleeding no active bleeding noted. 21:25 Reassessment: Patient is alert, oriented x 3, equal unlabored respirations, skin bb warm/dry/pink. sutures intact, pt and family verbalized understanding of and agrees to plan of care discharge instructions given pt assisted to exit via wheelchair by this RN accompanied by family. Vital Signs: 19:50 BP 153 / 73; Pulse 80; Resp 17; Temp 97.6; Pulse Ox 95% ; Weight 84.82 kg; Height 5 ft. ll1 9 in. (175.26 cm); Pain 8/10; 21:26 BP 159 / 88; Pulse 80; Resp 16 S; Pulse Ox 98% on R/A; bb 19:50 Body Mass Index 27.61 (84.82 kg, 175.26 cm) ll1 ED Course: 19:42 Patient arrived in ED. am4 19:52 Triage completed. ll1 19:53 Arm band placed on Patient notified of wait time. ll1 20:33 Steven Esquivel MD is Attending Physician. rob 21:00 Patient has correct armband on for positive identification. Call light in reach. Adult bb w/ patient. 21:00 Assist provider with laceration repair on medial aspect of left calf that was 2.5 cm. bb or less using sutures. Set up tray. Performed by Steven Esquivel MD Dressed with band aid, bactroban applied Patient tolerated well. Patient did not have IV access during this emergency room visit. 21:02 Judith Palomino, MELINDA is Primary Nurse. vg1 21:02 Benjamín Torres MD is Referral Physician. rob Administered Medications: 21:10 Drug: Bactroban Ointment 2 % 1 application Route: Topical; Site: affected area; bb 21:22 Follow up: Response: No adverse reaction bb 21:12 Drug: KeFLEX (cephalexin) 500 mg Route: PO; bb 21:21 Follow up: Response: No adverse reaction bb Outcome: 21:02 Discharge ordered by MD. rivas 21:26 Discharged to home via wheelchair, with family. bb 21: Condition: stable 21:26 Discharge instructions given to patient, family, Instructed on discharge instructions, follow up and referral plans. medication usage, wound care, Demonstrated understanding of instructions, follow-up care, medications, wound care, Prescriptions given X 2. 21:26 Patient left the ED. bb Signatures: Steven Esquivel MD MD cha Ballard, Brenda, RN RN bb Judith Palomino RN RN vg1 Nelsy Tolentino RN RN ll1 Edelmira Thomson am4 Corrections: (The following items were deleted from the chart) 19:55 19:50 Chief complaint: Patient states: <3 cm laceration to Left leg . Hit on a sharp ll1 piece of metal sticking out of the ground around 1800 today. Bleeding controlled after a pressure dressing. ll1
[2020-12-31] MEDS ORDERED: MUPIROCIN 2% OINT 22GM TUBE TOP ONE (21:23)
[2020-12-31] MEDS ORDERED: CEPHALEXIN 250 MG CAP ONE (21:23)
[2020-12-31 21:34] VITALS: TEMP 97.6
[2020-12-31 21:36] VITALS: BP 159/88; O2SAT 98
== END 2020-12-31 21:26 | disposition home or self-care (01) ==
LOC: ER 19:37
PROC: 0JQP0ZZ Repair Left Lower Leg Subcutaneous Tissue and Fascia, Open Approach (ICD-10-PCS; principal; 2020-12-31)
DX: S81.812A Laceration without foreign body, left lower leg, initial encounter (principal); E11.22 Type 2 diabetes mellitus with diabetic chronic kidney disease; I12.0 Hypertensive chronic kidney disease with stage 5 chronic kidney disease or end stage renal disease; N18.5 Chronic kidney disease, stage 5; W22.8XXA Striking against or struck by other objects, initial encounter; Y93.01 Activity, walking, marching and hiking; Y92.89 Other specified places as the place of occurrence of the external cause; Z99.2 Dependence on renal dialysis; Z94.1 Heart transplant status; Z95.1 Presence of aortocoronary bypass graft
CPT/HCPCS: 99283

== ENCOUNTER 2021-01-10 15:29 | Emergency (ER) | payer OTHER ==
--- OUTSIDE RECORDS SUMMARY | 2021-01-10 15:33 | XMS REPORT | Continuity of Care Document ---
:1945 Author Organization [facility] t Address [address] [place] [address] Dr. Zelaya[address] [place] [address] Care Team Providers Name Role Phone Agent, Lily Primary Care Physician Hany Maloney MD Attending Clinician Sabino TODD Attending Clinician Unavailable Minal BLANK Attending Clinician Jeniffer Shah MD Attending Clinician Marielena Page MD Attending Clinician TAMANNA Attending Clinician Unavailable Jessie RN Attending Clinician Unavailable Clarisa Attending Clinician Matthieu LAWRENCE Attending Clinician Unavailable Doctor Unassigned, Name Attending Clinician Unavailable Kaushik BLANK Attending Clinician Niles Mcnair MD Attending Clinician Kerrie BLANKENSHIP Attending Clinician Unavailable Judd TODD Attending Clinician Unavailable Urbano TODD Attending Clinician Unavailable Zacarias Spicer MD Attending Clinician Aquiles Hernandez MD Attending Clinician Leeanne HUNTER Attending Clinician Navi TODD Attending Clinician Unavailable Radiology Attending Clinician Unavailable ELO TAYLOR Attending Clinician Unavailable Leti Lo Attending Clinician NAYAN Admitting Clinician Unavailable ELO TAYLOR Admitting Clinician Unavailable Leti Lo Admitting Clinician Payers Payer Name Policy Type Policy Effective Date Expiration Date Sour ce Number MEDICAREMEDICARE PART [id number] Ho maggy A AND 00:00:00 Mandaeism [id number] 1997- PresentCOOLSPRING, RIMedicare SECURE HORIZONSSECURE [id number] 2008 [place] HORIZONS MED 00:00:00 Mandaeism [id number]-PresentCommercial Problems Condition Condition Condition Status Onset Resolution Last Treating Co mments Source Name Details Category Date Date Treatment Clinician Date Osteopenia Osteopenia Disease Active [place] of of 8 Methodi multiple multiple 00:00: st sites sites 00 Vitamin D Vitamin D Disease Active [place] [facility] deficiency deficiency 05-07 Me thodi 00:00: st 00 Headaches Headaches Disease Active Overview: [facility] due to old due to old 04-10 [place] Methodi head head 00:00: g of this st injury injury 00 note might be different from the original. Followed by Neurology Post 2017 fall with concussio n and subsequen t memory losses. Head Head Disease Active Overview: [place] n injury injury 15 [facility] Methodi 00:00: g of this st 00 note might be different from the original. April 07, 2018 was on an 8 inch ladder and the ladder slipped sideways and pt fell with it.Hit his head on theconcre te, broke 8 ribs and punctured R lung Heart Heart Disease Active Overview: [place] replaced replaced 10-27 [place] Met hodi by by 00:00: g of this st transplant transplant 00 note might be different from the original. 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 Added automatic ally from request for surgery [id number] Subclinica Subclinica Disease Active [place] l l 06-20 Methodi hypothyroi hypothyroi 00:00: st dism dism 00 Closed Closed Disease Active Overview: [place] n fracture fracture 05-02 [facility] Met hodi of of 00:00: g of this st multiple multiple 00 note ribs of ribs of might be right side right side different from the original. 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 Labetlol 200 / 200 / 300Amlodi pine 5 mg Isosorbid e mono 30 mg dailyAspi rin 81Pravast atin 80 Long-term Long-term Disease Active Overview: [place] use of use of 8-15 [facility] [facility]i immunosupp immunosupp 00:00: g of this st ressant ressant 00 note is medication medication different from the original. Rapamune intoleran ce. 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 Diabetic/ hyperlipi demia/ost eopenia Followed by Dr. Mas pentin 300 mg TID for neuropath yNovolog 70/30 Diabetic Diabetic Disease Active [place] neuropathy neuropathy 02-25 Me thodi 00:00: st 00 Disorder Disorder Disease Active [place] of heart of heart 02-25 Method i transplant transplant 00:00: st ation ation 00 High High Disease Active [place] Lipase Lipase 02-25 Methodi Level in Level [...] Active Overview: [place] lower lower 02-25 [place] Methodi extremity extremity 00:00: g of this s note might be different from the original. Chronic in natureNeu ropathic and associate d with chronic back & hip & siatica Abnormal Abnormal Disease Active [place] thyroid thyroid 02-25 Methodi stimulatin stimulatin 00:00: st g hormone g hormone 00 (TSH) (TSH) level level Chronic Chronic Disease Active Overview: [place] kidney kidney 11-14 [facility] Methodi disease, disease, 00:00: g of this st stage V stage V 00 note might be different from the original. Demadex 20 dailyMeto lazone 2.5 -5 prn Disorder Disorder Disease Active [place] of of 11-14 Methodi endocrine endocrine 00:00: st system system 00 Heart Heart Disease Active Overview: [place] transplant transplant 11-14 [place] Methodi ed ed 00:00: g of this note is different from the original. 09/29/2006 Heart Transplan tFK 1 mg Q 12; Prednison e 5Does not tolerate Rapamune. Failed prednison e wean.Visi t Date biopsy C4D Treatment Echo CMV Level Annual Year 12 11/21/18 LHC clear BNP 155, SCr 1.87, GFR 34, Chol 141,osteo penia, clear coronarie s on cath 60-64 neg 6.6 Clinic 01/09/19 Post local HOSP (5 days) Influenza & pneumonia PVD745; SCr 1.89 3.8 Clinic 02/06/19 C/O memory [...] follow up with Chrissy Maloney Ho, & viktoriaolo gy EF 70%Pos Cw5 neg 4.7 12/27/19 Patient treated as out pt. For fluid over-load . Zaroxolyn 5mg x2 days and pt doing better GI Notes 02/08/20 EGD & [place] Performed ; multiple polyps but no carcinoma Delayed stomach emptying noted. Additiona l testing for gastropar esis ordered. 05/20/20 Clinic Clinic 07/09/20 BNP 206, Scr 1.78/GFR 36 Torsemide increased ; Keflex 500 BID 10 day for rt. Leg laceratio n; Refer Podiatris t B. Selbst <2.0 HLD HLD Disease Active Overview: [place] n (hyperlipi (hyperlipi 2-18 [place] Methodi demia) demia) 00:00: g of this note might be different from the original. 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 2-18 Meth susan diabetes diabetes 00:00: st mellitus mellitus 00 Candidiasi Candidiasi Disease Active 2011-09 [place] s of mouth s of mouth 11-03 Me thodi 00:00: st 00 Esophagiti Esophagiti Disease Active 2011-09 [place] s s 11-03 Methodi 00:00: st 00 Ulcer of Ulcer of Disease Active 2011-09 [place] esophagus esophagus 11-03 Meth susan 00:00: st 00 Abdominal Abdominal Disease Active [place] pain pain 03-03 Methodi 00:00: st 00 Candidiasi Candidiasi Disease Active [place] s of s of 03-03 Methodi esophagus esophagus 00:00: st Gastroesop Gastroesop Disease Active [place] hageal hageal 03-03 Methodi reflux reflux 00:00: st disease disease 00 Allergies, Adverse Reactions, Alerts Allergy Allergy Status Severity Reaction(s) Onset Inactive Treating Comm ents Source Name Type Date Date Clinician Adhesive Drug Active Other (See 2017-09 TEARS [facility] St Tape Allergy Comments) 2-19 SKIN. [place] Luke s - 00:00: WITH Medical 00 PAPER Center Adhesive Propensi Active Other (See 2017-09 TEARS [place] Tape-Nai ty to Comments) 2-19 SKIN. [place] Met hodi icones adverse 00:00: WITH st reaction 00 PAPER s to drug Sirolimu Propensi Active Anaphylaxis, 2015-09 [place] s ty to Swelling 1-10 Methodi adverse 00:00: st reaction 00 s to drug Family History Family Member Diagnosis Comments Start Date Stop Date Source Natural brother Heart disease [place] Mandaeism Natural brother No Known Problems [place] Mandaeism Natural daughter Hypertension [place] Mandaeism Natural daughter Colon cancer [place] Mandaeism Natural father Heart attack [place] Mandaeism Natural father Heart disease [place] Mandaeism Natural mother Diabetes [facility] Me thodist Natural mother Heart disease [place] Mandaeism Natural sister Hypertension [place] Mandaeism Natural son No Known Problems [place] Mandaeism Social History Social Habit Start Date Stop Date Quantity Comments Source Sex Assigned At [facility] History MSOH [facility] Alcohol Binge History of tobacco Current smoker [place] Mandaeism use Alcohol intake 2020-10-03 2020-10-03 .14 /d [facility] Me thodist 00:00:00 00:00:00 Cigarettes smoked 2020-10-03 2020-10-03 David Tripathiist current (pack per 00:00:00 00:00:00 day) - Reported Cigarette 2020-10-03 2020-10-03 David Tripathi ist pack-years 00:00:00 00:00:00 Tobacco use and 2020-10-03 2020-10-03 Never used David Alas ethodist exposure 00:00:00 00:00:00 History SDOH 2019-04-11 2019-04-11 1 David Meth odist Alcohol Std Drinks 00:00:00 00:00:00 Tobacco Comment 2019-04-10 2019-04-10 used to smoke 1 [place] Mandaeism 00:00:00 00:00:00 ppd not since 1987 Alcohol Comment 2018-09-15 2018-09-15 "VERY SELDOM" [facility] Smoking Status Start Date Stop Date Source Former smoker 2020-10-03 00:00:00 2020-10-03 00:00:00 David Tripathiist Medications Ordered Filled Start Stop Current Ordering Indication Dosage Frequency Signature Comments Components Source Medication Medication Date Date Medication? Clinician (SIG) Name Name insulin Yes Type 2 USE TO [place] syringe-nee 01-03 diabetes INJECT Me thodi dle U-100 00:00: mellitus TWICE st (BD Insulin 00 with DAILY Syringe hyperglycem Ultra-Fine) ia (HCC) 0.5 mL 31 gauge x 5/16" syringe amLODIPine 2020- No 5mg QD Take 5 mg [place] (NORVASC) 5 11-25 by mouth Met hodi MG tablet 10:33: 00:[address] 06 :00 amLODIPine 2021- Yes 5mg QD Take 1 [place] (NORVASC) 5 11-25 tablet (5 Me thodi mg tablet 00:00: 23:59 mg total) st 00 :00 by mouth daily. isosorbide 2021- Yes 30mg QD Take 1 [place] mononitrate 11-25 tablet (30 M ethodi (IMDUR) 30 00:00: 23:59 mg total) s t MG 24 hr 00 :00 by mouth tablet daily. magnesium Yes TAKE 1 [place] oxide 2-15 TABLET BY Methodi (MAG-OX) 00:00: MOUTH st 400 mg 00 TWICE A (241.3 mg DAY magnesium) tablet isosorbide 2020- No TAKE 1 [place] mononitrate 2-15 03-01 TABLET BY Me loya (IMDUR) 30 00:00: 00:[address] MG 24 hr 00 :00 EVERY DAY tablet labetaloL 2021- Yes 100mg Q.5D Take 1 [place] (NORMODYNE) 2-05 02-05 tablet Metho di 100 MG 00:00: 23:59 ([address] tablet 00 :00 total) by mouth 2 (two) times a day. pravastatin Yes TAKE 1 [place] (PRAVACHOL) 2-02 TABLET BY Met autumn 80 MG 00:00: MOUTH st tablet 00 EVERY DAY sertraline Yes Depression, TAKE 1 Hernandez (ZOLOFT) 50 1-25 unspecified TABLET BY Methodi MG tablet 00:00: depression MOUTH s t 00 type EVERY DAY tacrolimus 2021- Yes .5mg Q.5D Take 1 [place] (PROGRAF) 1-19 10-15 capsule Method i 0.5 MG 00:00: 23:59 (0.[address] capsule 00 :00 total) by mouth 2 (two) times a day. Z94.1 Heart Txp S/P gabapentin Yes TAKE 1 [place] (NEURONTIN) 1-14 CAPSULE BY Me loya 300 mg 00:00: MOUTH st capsule 00 THREE TIMES A DAY tacrolimus 2020- No TAKE 1 [place] (PROGRAF) 1-14 - CAPSULE BY Met hodi 0.5 MG 00:00: 00:[address] capsule 00 :00 TWICE A DAY ALPRAZolam Yes .5mg QD Take 0.5 [place] (XANAX) 0.5 1-07 mg by Methodi MG tablet 10:54: mouth st 27 nightly as needed for anxiety. aspirin Yes 81mg QD Take 81 mg [place] (ECOTRIN) 1-07 by mouth Method i 81 MG 10:54: daily. st enteric 27 coated tablet calcium Yes 1{tbl} Q.5D Take 1 [place] carbonate-v 1-07 tablet by Met autumn itamin D3 10:54: mouth 2 st 600 27 (two) mg(1,500mg) times a -200 unit day with per tablet meals. tamsulosin Yes .4mg QD Take 0.4 [place] (FLOMAX) 1-07 mg by Methodi 0.4 mg 10:54: mouth st capsule,ext 27 nightly. ended release 24hr ferrous Yes 325mg QD Take 325 [place] sulfate 325 1-07 mg by Methodi (65 FE) MG 10:54: mouth st tablet 27 daily with breakfast. omega Yes 2000mg Q.5D Take 2,000 [place] 3-dha-epa-f 1-07 mg by Methodi juancarlos oil 10:54: mouth 2 st (FISH OIL) 27 (two) 1,000 mg times a (120 mg-180 day. mg) capsule thiamine Yes 100mg QD Take 100 [place] 100 MG 1-07 mg by Methodi tablet 10:54: mouth st 27 daily. finasteride Yes 5mg QD Take 5 mg [place] (PROSCAR) 5 1-07 by mouth Meth susan mg tablet 10:54: nightly. st 27 HYDROcodone Yes acute pain 1{tbl} Q6H Take 1 Hernandez -acetaminop 1-07 tablet by Met autumn hen (NORCO) 10:54: mouth st 5-325 mg 27 every 6 per tablet (six) hours as needed for moderate pain .acute pain. torsemide 2019-09 Yes Take 40 mg [place] (DEMADEX) 2-11 on T, Th, Metho di 20 MG 00:00: Sat, Sun & st tablet 00 60 mg on ,W, F (total 17 tab per week ) allopurinol 2019-09- No 100mg Q.5D Take 100 Hernandez (ZYLOPRIM) 2-04 12-04 mg by Methodi 100 MG 09:50: 00:[address] tablet 33 :00 (two) times a day. allopurinoL 2019-09 No 100mg Q.5D Take 1 [place] (ZYLOPRIM) 2-04 12-04 tablet Method i 100 MG 00:00: 23:59 ([address] tablet 00 :00 total) by mouth 2 (two) times a day. predniSONE 2019-09 7.5mg QD Take 1.5 [place] (DELTASONE) 1 11-13 tablets Meth susan 5 mg tablet 00:00: 23:59 (7.[address] 00 :00 total) by mouth daily. Z94.1 Heart Transplant ed 10/26/2006 butalbitaL- 2019-09 No 1{tbl} Q.04140291 Take 1 Hernandez acetaminoph -12 11-12 [id number] tablet by Kem en (BUPAP) 22:15: 00:[address] 50-325 mg 16 :00 (three) tablet times a day. butalbitaL- 2019-09 chronic 1{capsu Q.5D Take 1 Hernandez acetaminop- 12 02-10 pain le} capsule by Bishop alexodi caf-cod 00:00: 23:[address] (FIORICET 00 :00 (two) WITH times a CODEINE) day as 50-325-40-3 needed for 0 mg per headaches capsule for up to 90 days .chronic pain. labetaloL 2019-09 TAKE 1 [place] (NORMODYNE) 1-10 02-05 TABLET BY thodi 100 MG 00:00: 00:[address] tablet 00 :00 TWICE A DAY labetaloL 2019-09 100mg Q.5D Take 1 [place] (NORMODYNE) 1-05 01-07 tablet Metho di 100 MG 00:00: 00:00 ([address] tablet 00 :00 total) by mouth 2 (two) times a day. cephalexin 2019-09 500mg Q.5D Take 1 [place] (Keflex) 0-13 -18 capsule Methodi 500 MG 00:00: 23:59 ([address] capsule 00 :00 total) by mouth 2 (two) times a day for 5 days. Rt lower leg laceration butalbitaL- 2019- No chronic 1{capsu Q.02071585 Take 1 Hernandez acetaminop- 9- 10-09 pain le} [id number] capsule by Methodi caf-cod 00:00: 23:[address] 50-300-40-3 00 :00 (three) 0 mg times a capsule day as needed (Headache) for up to 30 days .chronic pain. butalbitaL- 2020- No chronic 1{capsu Q.92025058 Take 1 Hernandez acetaminop- 9-03 09-09 pain le} [id number] capsule by Methodi caf-cod 00:00: 00:[address] 50-300-40-3 00 :00 (three) 0 mg times a capsule day as needed (Headache) for up to 30 days .chronic pain. sodium,pota 2019- No USE [place] ssium,mag 05-19 DIRECTED Metho di sulfates 00:00: 00:00 st (Suprep 00 :00 Bowel Prep Kit) 17.5-3.13-1 .6 gram recon soln predniSONE 2019- No TAKE 1 AND [place] (DELTASONE) 05-17/2 Methodi 5 mg tablet 00:00: 00:[address] 00 :00 DAILY BY MOUTH sertraline 2020- No Depression, 50mg QD Take 1 [place] (ZOLOFT) 50 04-18 01- unspecified tablet (50 Methodi MG tablet 00:00: 00:00 depression mg total) st 00 :00 type by mouth daily. insulin 2020- No Uncontrolle USE TO [place] syringe-nee 03-25 04-09 d type 2 INJECT M ethodi dle U-100 00:00: 00:[address] (BD Insulin 00 :00 mellitus DAILY Syringe without Ultra-Fine) complicatio 0.5 mL 31 n, with gauge x long-term 02/09" current use syringe of insulin folic acid 2020- No TAKE 1 [place] (FOLVITE) 1 03-1216 TABLET BY Ak thodi MG tablet 00:00: 23:[address] 00 :00 EVERY DAY lancets 33 2019-0 Yes DX E11.65 [place] gauge misc 6-10 Patient is Met hodi 00:00: testing st 00 TID. One Touch Verio blood sugar 2019- Yes DX E11.65 [place] diagnostic 6-08 Patient is Met hodi strips 00:00: testing st (glucose 00 TID. blood) Please strip test match to strips machine. baclofen 2019- Yes Musculoskel 10mg Q.85742927 Take 1 [facility] (LIORESAL) 6-02 etal neck [id number] tablet (10 Methodi 10 MG 00:00: pain 3D mg total) st tablet 00 by mouth 3 (three) times a day as needed for muscle spasms. baclofen 2019- No Musculoskel 10mg Q.67743477 Take 1 [facility] (LIORESAL) 6 06- etal neck [id number] tablet (10 Methodi 10 MG 00:00: 00:00 pain 3D mg total) st tablet 00 :00 by mouth 3 (three) times a day as needed for muscle spasms. insulin 2019- No Q.5D Inject Hernandez ASPART 02-14 under the Methodi protamine 12:23: 00:[address] and insulin 04 :00 (two) ASPART times a (NovoLOG day. 8 70/30) 100 units in unit/mL the (70-30) morning 16 insulin pen units at night insulin No 12 units [place] ASPART 02-14 in the Methodi protamine 00:00: 00:00 morning 20 s t and insulin 00 :00 units at ASPART night (NovoLOG 70/30) 100 unit/mL (70-30) insulin pen NovoLIN Yes INJECT Hernandez 70/30 U-100 5-18 UNDER THE Met hodi Insulin 100 00:00: SKIN 12 st unit/mL 00 UNITS (70-30) EVERY injection MORNING AND 20 UNITS EVERY EVENING metOLazone 2020- No 2.5mg Q.66486641 Take 1 Hernandez (Zaroxolyn) 01-18 04-24 [id number] tablet Methodi 2.5 MG 00:00: 23:59 3W (2.[address] tablet 00 :00 total) by mouth 3 (three) times a week. Titrate to effect using 2-3 tablets per week as needed. OneTouch 2019- No Type 2 TEST 3 [place] Verio strip 01-07 05-13 diabetes TIMES Me thodi test strips 00:00: 00:[address] 00 :00 without complicatio n, without long-term current use of insulin (HCC) potassium 2019- Yes TAKE 2 [place] chloride 4-01 TABLETS BY Metho di (K-DUR) 10 00:00: MOUTH st MEQ CR 00 EVERY DAY tablet sodium,pota 2019- No Use as [place] ssium,mag 3-11 08-23 directed Metho di sulfates 00:00: 18:[address] (SUPREP 00 :30 physician BOWEL PREP KIT) 17.5-3.13-1 .6 gram recon soln pravastatin 2020- No TAKE 1 [place] (PRAVACHOL) 2-17 02- TABLET BY Me loya 80 MG 00:00: 00:[address] tablet 00 :00 EVERY DAY docusate 2019- No 100mg Q.5D Take 100 [place] sodium 100 2-11 05-14 mg by Methodi mg capsule 00:00: 00:[address] 00 :00 (two) times a day as needed for constipati on. Twice a day gabapentin 2020- No TAKE 1 [place] (NEURONTIN) 1-17 -14 CAPSULE Meth susan 300 mg 00:00: 00:[address] capsule 00 :00 TIMES DAILY isosorbide 2020- No TAKE 1 [place] mononitrate 1-15 -15 TABLET BY Me loya (IMDUR) 30 00:00: 00:[address] MG 24 hr 00 :00 EVERY DAY tablet tacrolimus No .5mg Q.5D Take 1 [place] (PROGRAF) 115 14 capsule Method i 0.5 MG 00:00: 00:00 (0.[address] capsule 00 :00 total) by mouth 2 (two) times a day. Z94.1 heart transplant torsemide 2019- No TAKE 2 [place] (DEMADEX) 1-15 12-11 TABLETS BY Met hodi 20 MG 00:00: 00:[address] tablet 00 :00 EVERY DAY magnesium 2018-09 No 400mg Q.5D TAKE 1 [place] oxide 2-16 02-15 TABLET Methodi (MAG-OX) 00:00: 00:00 ([address] 400 mg 00 :00 TOTAL) BY (241.3 mg MOUTH 2 magnesium) (TWO) tablet TIMES A DAY. sertraline 2018-09- No Depression, 50mg QD Take 1 [facility] (ZOLOFT) 50 0-28 07-23 unspecified tablet (50 Methodi MG tablet 00:00: 00:00 depression mg total) st 00 :00 type by mouth daily. ONETOUCH 2019- No DX E11.65 [place] DELICA 05-22 05-13 Test Methodi LANCETS 33 00:00: 00:00 glucose 3 s t gauge misc 00 :00 times daily predniSONE 2020- No 7.5mg QD Take 1.5 [place] (DELTASONE) 8 08-21 tablets Meth susan 5 mg tablet 00:00: 00:00 (7.[address] 00 :00 total) by mouth daily. Z94.1 Heart Txp S/P folic acid 2019- No TAKE 1 [place] (FOLVITE) 1 02-17 06-16 TABLET BY Ak thodi MG tablet 00:00: 00:[address] 00 :00 EVERY DAY insulin 2019- No Uncontrolle USE TO [facility] syringe-nee 02-03 06-29 d type 2 INJECT M ethodi dle U-100 00:00: 00:[address] (BD INSULIN 00 :00 mellitus DAILY SYRINGE without ULT-FINE complicatio II) 0.5 mL n, with 31 gauge x long-term 02/09" current use syringe of insulin traMADol Yes 50mg Take 50 mg [place] (ULTRAM) 50 4-17 by mouth Meth susan mg tablet 00:00: as needed. st 00 tacrolimus Yes .5mg Q.5D Take 0.[address] [facility] (PROGRAF) 1-25 mg by [facility] - 0.5 MG 14:56: mouth 2 Medical capsule 08 (two) Center times daily. predniSONE Yes 5mg QD Take [address] (DELTASONE) 1-25 by mouth Luke s - 5 MG tablet 14:56: daily. Medi jacquelyn 08 [place] torsemide Yes 40mg QD Take [address] (DEMADEX) 1-25 by mouth [facility] - 20 MG 14:56: daily. Medical tablet [address] [place] [address] MULTIVITAMI Yes Take by [facility] N ORAL [...] (241.3 mg times magnesium) daily. tablet metOLazone 2019-0 Yes 2.5mg Take 2.[address] (ZAROXOLYN) 1-25 mg by [facility] - 2.5 MG 14:56: mouth as Medical tablet 08 needed. [place] pravastatin 0 Yes 80mg QD Take [address] (PRAVACHOL) 1-25 by mouth Luke s - 80 MG 14:56: nightly. Medical tablet 08 [place] montelukast 20190 Yes 10mg Take [address] (SINGULAIR) 1-25 by mouth Luke s - 10 mg 14:56: as needed. Medica l tablet 08 [place] tamsulosin 2019-0 Yes .4mg QD Take 0.[address] (FLOMAX) 1-25 mg by [facility] - 0.4 mg Cap 14:56: mouth Medica l 24 hr 08 daily. [place] capsule traMADol 2019-0 Yes 50mg Take [address] (ULTRAM) 50 1-25 by mouth Luke s - mg tablet 14:56: every 6 Medic al 08 (six) Center hours as needed for Pain. fesoterodin 2019-0 Yes QD Take by [facility] (TOVIAZ) 1-25 mouth [facility] - 4 mg 24 hr 14:56: daily. Medic al tablet 08 [place] amLODIPine 2019-0 Yes 5mg QD Take [address] (NORVASC) 5 1-25 by mouth Luke s - MG tablet 14:56: daily. Medica l 07 [place] folic acid 2019-0 Yes 1mg QD Take [address] (FOLVITE) 1 1-25 by mouth Luke s - MG tablet 14:56: daily. Medica l 07 Center aspirin 81 2019-0 Yes 81mg QD Take [address] MG EC 1-25 by mouth [facility] - tablet 14:56: daily. Medical 07 Center esomeprazol 2019-0 Yes 20mg Q.5D Take [address] [facility] (NEXIUM) 1-25 by mouth 2 [place] es - 20 MG 14:56: (two) Medical capsule 07 times Center daily. allopurinol 20190 Yes 100mg Q.5D Take [address] (ZYLOPRIM) 1-25 mg by [facility] - 100 MG 14:56: mouth 2 Medical tablet 07 (two) Center times daily. ALPRAZolam 20190 Yes .5mg Take 0.[address] (XANAX) 0.5 1-25 mg by [facility] - MG tablet 14:56: mouth Medical 07 every Center night as needed for Anxiety. ferrous 0 Yes 325mg Take 325 [facility] sulfate 325 1-25 mg by [facility] - (65 FE) MG 14:56: mouth Medica l tablet 07 daily with Center breakfast. gabapentin 0 Yes 300mg Q.13031032 Take [address] (NEURONTIN) 1-25 [id number] mg by L ukes - 300 MG 14:56: 3D mouth 3 Medical capsule 07 (three) Center times daily. isosorbide 0 Yes 30mg QD Take [address] dinitrate 1-25 by mouth [facility] - (ISORDIL) 14:56: daily. Medica l 30 MG 07 Center tablet insulin Yes Inject [facility] aspart 1-25 subcutaneo [facility] - protamine-i 14:56: usly 2 Medi jacquelyn nsulin 07 (two) Center aspart times (NOVOLOG daily with MIX 70/30) breakfast 100 unit/mL and (70-30) dinner. injection HYDROcodone 2018-0 Yes 1{tbl} Take [address] -acetaminop 1-25 tablet by [place] - hen (NORCO 14:56: mouth Medica l 5-325) 07 every 6 Center 5-325 mg (six) per tablet hours as needed for Pain. finasteride 0 Yes 5mg QD Take [address] (PROSCAR) 5 1-25 by mouth Luke s - mg tablet 14:56: daily. Medica l Center labetalol 2017-09- No 100mg Q.5D Take 1 [place] (NORMODYNE) 2-13 11-05 tablet Metho di 100 MG 00:00: 00:00 ([address] tablet 00 :00 total) by mouth 2 (two) times a day. gabapentin- 2019- No 300 mg = 1 [place] lidocaine 7-23 10-22 cap, PO, Metho di 300 mg- 5 % 00:00: 00:00 BID, # 28 st kit 00 :00 cap, 0 Refill(s) esomeprazol Yes Take 40 mg Hernandez e (NexIUM) 4-28 by mouth Metho di 20 MG 00:00: every st capsule 00 morning and 20 mg by mouth every evening montelukast Yes 10mg Take 1 [place] (SINGULAIR) - tablet (10 Me thodi 10 mg 00:00: mg total) st tablet 00 by mouth as needed (allergies ). metOLazone 2019- No 2.5mg Take 1 [place] (ZAROXOLYN) 01-22 04-24 tablet Metho di 2.5 MG 00:00: 00:00 (2.[address] tablet 00 :00 total) by mouth as needed (fluid). Titrate to effect Immunizations Ordered Immunization Filled Immunization Date Status Commen ts Source Name Name PAO COVID-19 2020-10-31 Completed [facility] LOBOA COVID-19 2020-10-03 Completed [facility] 00:00:00 [facility] Vital Signs Vital Name Observation Time Observation Value Comments Source Systolic blood 2020-10-03 10:52:00 152 mm[Hg] Masha n [facility] pressure Diastolic blood 2020-10-03 10:52:00 76 mm[Hg] Mariah on [facility] pressure Heart rate 2020-10-03 10:52:00 76 /min David Ramirez Body temperature 2020-10-03 10:52:00 36.06 Genevieve [place] [facility] Body height 2020-10-03 10:52:00 174 cm David Ramirez Body weight 2020-10-03 10:52:00 86.32 kg David Ramirez BMI 2020-10-03 10:52:00 28.51 kg/m2 [facility] Respiratory rate 2020-07-09 07:55:00 17 /min [facility] Oxygen saturation in 2020-07-09 07:55:00 97 /min [facility] Arterial blood by Pulse oximetry Procedures Procedure Date / Time Performing Source Performed Clinician EMG 2020-09-06 Jeanie Davis [facility] 09:28:[address] HEAD EXTERNAL STUDY 2020-07-10 [facility] 10:24:00 Obadah [facility]ism ECG 12-LEAD 2020-07-09 [facility] 10:05:21 [facility]ism URINE CULTURE 2020-07-09 [facility] 08:09:00 Mandaeism COMPREHENSIVE METABOLIC PANEL 2020-07-09 [facility] 08:09:00 Mandaeism MAGNESIUM LEVEL 2020-07-09 [facility] 08:09:00 Mand[facility]ism HC COMPLETE BLD COUNT W/AUTO DIFF 2020-07-09 [facility] 08:09:00 Mandaeism LDH 2020-07-09 [facility] 08:09:00 Mandaeism B NATRIURETIC PEPTIDE 2020-07-09 [facility] 08:09:00 Mandaeism TROPONIN 2020-07-09 [facility] 08:09:00 Mand[facility]ism PROTHROMBIN TIME WITH [facility] [id number] TACROLIMUS LEVEL, RANDOM 2020-07-09 [facility] 08:09:00 [facility]ism LIPID PANEL 2020-07-09 [facility] 08:09:00 [facility]ism URIC ACID LEVEL 2020-07-09 [facility] 08:09:00 [facility]ism URINALYSIS SCREEN AND MICROSCOPY, 2020-07-09 [facility] WITH REFLEX TO CULTURE 08:09:00 Mandaeism IGAM 2020-07-09 [facility] 08:09:00 [facility]ism PROTEIN, URINE, RANDOM 2020-07-09 [facility] 08:09:00 [facility]aeism ESTIMATED GFR 2020-07-09 [facility] 08:09:[address] HEAD WO CONTRAST 2020-05-30 Bob Shah [facility] 16:36:36 Obadah [facility] URINE CULTURE 2020-05-13 [facility] 11:11:00 [facility]ism COMPREHENSIVE METABOLIC PANEL 2020-05-13 [facility] 11:11:00 Mandaeism MAGNESIUM LEVEL 2020-05-13 [facility] 11:11:00 Mandaeism HC COMPLETE BLD COUNT W/AUTO DIFF 2020-05-13 [facility] 11:11:00 [facility]ism CYTOMEGALOVIRUS BY PCR 2020-05-13 [facility] 11:11:00 Mandaeism B NATRIURETIC PEPTIDE 2020-05-13 [facility] 11:11:00 [facility]ism PROTHROMBIN TIME WITH INR 2020-05-13 [facility] [id number] TACROLIMUS LEVEL, RANDOM 2020-05-13 [facility] 11:11:00 [facility]ism LIPID PANEL 2020-05-13 [facility] 11:11:00 [facility]ism THYROID STIMULATING HORMONE 2020-05-13 [facility] ton 11:11:00 [facility]aeism PARATHYROID HORMONE 2020-05-13 [facility] 11:11:00 [facility]ism URIC ACID LEVEL 2020-05-13 [facility] 11:11:00 [facility]ism URINALYSIS SCREEN AND MICROSCOPY, 2020-05-13 [facility] WITH REFLEX TO CULTURE 11:11:00 Mandaeism IGAM 2020-05-13 [facility] 11:11:00 [facility]ism PROTEIN, URINE, RANDOM 2020-05-13 [facility] 11:11:00 [facility]ism CREATININE LEVEL, URINE, RANDOM 2020-05-13 [facility] 11:11:00 [facility]ism ESTIMATED GFR 2020-05-13 [facility] 11:11:00 Mand[facility]ism TROPONIN 2020-05-13 Yash Fontaine [facility] 11:11:00 [facility] LIPID PANEL 2020-05-02 [facility] 08:14:00 Leach [facility] MICROALBUMIN / CREATININE URINE 2020-05-02 [facility] RATIO 08:14:00 Le[place] [facility] COMPREHENSIVE METABOLIC PANEL 2020-05-02 [facility] 08:14:00 [place] [facility] FRUCTOSAMINE 2020-05-02 [facility] 08:14:00 [place] [facility] CBC WITH PLATELET AND DIFFERENTIAL 2020-05-02 [facility] 08:14:00 [place] [facility] ABN TEST REFUSAL 2020-05-02 [facility] 08:14:00 [place] [facility] T4, FREE 2020-05-02 [facility] 08:14:00 Leach [facility] THYROID STIMULATING HORMONE 2020-05-02 [facility] ton 08:14:00 [place] [facility] HEMOGLOBIN A1C 2020-05-02 [facility] 08:14:00 [place] [facility] PLATELET ESTIMATION (NOT 2020-05-02 [facility] ORDERABLE) 08:14:00 [place] [facility] NM GASTRIC EMPTYING 2020-02-28 [facility] 14:51:48 Imrosvaldo [facility] NM GASTRIC EMPTYING 2020[facility]21 [facility] 11:48:38 Imrosvaldo Ramirez SURGICAL PATHOLOGY REQUEST 2020-02-08 NayanGreg [facility] ton 12:07:00 O. [facility]ism POC GLUCOSE 2020-02-08 Nayan [facility] 11:35:00 O. [facility] ESOPHAGOGASTRODUODENOSCOPY (EGD) 2020-02-08 NayanVadim [facility] 09:57:00 O. [facility] COLONOSCOPY 2020-02-08 Nayan [facility] 09:57:00 O. [facility]ism POC GLUCOSE 2020-02-08 Nayan [facility] 09:13:00 O. [facility] Plan of Care Planned Activity Planned Date Details Comments Source Future Scheduled 2021-06-26 DIABETES: RETINAL EYE [place] [facility] 00:00:00 EXAM [code = DIABETES: RETINAL EYE EXAM] Future Scheduled 2021-04-27 [place]FL[place]ENZA VACCINE [place] [facility] 00:00:00 [code = INFLUENZA VACCINE] Future Scheduled 2020-05-28 INFLUENZA VACCINE (#1) [facility] 00:00:00 [code = INFLUENZA Medical Ce nter VACCINE (#1)] Future Scheduled 2019-12-08 DIABETIC FOOT EXAM [place] [facility] 00:00:00 [code = DIABETIC FOOT EXAM] Future Scheduled 2008 PNEUMOCOCCAL 65+ YRS [facility] - Test 00:00:00 (1 of 1 - Medical Center [id number] PCV13) [code = PNEUMOCOCCAL 65+ YRS (1 of 1 - [id number] PCV13)] Future Scheduled 1998-12-[address] [address] [facility] - Test 00:00:00 WELLNESS (YEAR 2 or Medical Center FIRST YEAR if no IPPE) [code = MEDICARE ANNUAL WELLNESS (YEAR 2 or FIRST YEAR if no IPPE)] Future Scheduled 1993 SHINGLES VACCINES (#1) [place] [facility] 00:00:00 [code = SHINGLES VACCINES (#1)] Future Scheduled 1949 65+ PNEUMOCOCCAL [facility] 00:00:00 VACCINE (1 of 4 - PCV13) [code = 65+ PNEUMOCOCCAL VACCINE (1 of 4 - PCV13)] Encounters Start End Encounter Admission Attending Care Care Encounter Source Date/Time Date/Time Type Type Clinicians Facility Department ID 2020-10-31 2020-10-31 Outpatient [facility] [id number] [facility] 00:[facility]:00 00:00:[address] 2020-10-03 2020-10-03 Outpatient [facility] [id number] [facility] 00:00:00 00:00:00 MOHAMMAD [address] 2020-10-03 2020-10-03 [facility] [id number] [facility]:00 00:00:00 RAKAN [address] 2020-09-06 2020-09-06 [facility] [id number] [facility] 00:00:00 00:00:00 JEANIE [address] 2020-08-07 2020-08-07 Orders Doctor TITI [id number] 00:00:00 00:00:00 Only Unassigned, ZEESHAN [id number] [place] [facility] [id number] [id number] 2020-07-18 2020-07-18 Outpatient [facility] [id number] [facility] 00:00:00 00:00:00 MOHAMMAD [address] 2020-07-18 2020-07-18 Outpatient [facility] [id number] [facility] 00:00:00 00:00:[address] 2020-07-18 2020-07-18 Outpatient NAKESTELAH, [facility] [id number] [facility] 00:00:00 00:00:00 MOHAMMAD [address] 2020-07-09 2020-07-09 Outpatient BHIMARAJ, [facility] [id number] [facility] 00:00:00 00:00:00 YASH [address] 2020-07-09 2020-07-09 Outpatient BHDANNYRAJ, [facility] [id number] [facility] 00:00:00 00:00:00 YASH [address] 2020-05-30 2020-05-30 Outpatient LACEY, [facility] [id number] [facility] 00:00:00 00:00:00 MOHAMMAD [address] 2020-05-13 2020-05-13 Outpatient BHDANNYRAPolly, [facility] [id number] [facility] 00:00:00 00:00:00 YASH [address] 2020-05-07 2020-05-07 Outpatient [facility], [facility] [id number] [facility] 00:00:00 00:00:00 SANTI [address] 2020-02-28 2020-02-28 Outpatient NAYAN, [facility] [id number] [facility] 00:00:00 00:00:00 GREG [address] 2020-02-26 2020-02-26 Outpatient NOEMIH, [facility] [id number] [facility] 00:00:00 00:00:00 MOHAMMAD [address] 2020-02-21 2020-02-21 Outpatient NAYAN, [facility] [id number] [facility] 00:00:00 00:00:00 GREG [address] 2020-02-08 2020-02-08 Outpatient NAYAN, [facility] [id number] [facility] 00:00:00 00:00:00 GREG [address] 2019-12-06 2019-12-06 Outpatient AHMAD, [facility] [id number] [facility] 00:00:00 00:00:00 PARISH [address] 2019-11-07 2019-11-07 Outpatient KAUSHIK, [facility] [id number] [facility] 00:00:00 00:00:00 ASHRITH 730 Method i 2019-11-07 2019-11-07 Outpatient [facility], [facility] [id number] [facility] 00:00:00 00:00:00 ASHRITH 056 Method i 2019-11-02 2019-11-02 Outpatient [facility] [id number] [facility] 00:00:00 00:00:00 ASHRITH 744 Method i 2019-11-02 2019-11-02 Outpatient [facility] [id number] [facility] 00:00:00 00:00:00 ASHRITH 621 Method i 2019-11-02 2019-11-02 Outpatient [facility] [id number] [facility] 00:00:00 00:00:00 ASHRITH 598 Method i 2019-11-02 2019-11-02 Outpatient [facility] [id number] [facility] 00:00:00 00:00:00 ASHRITH 830 Method i 2019-10-24 2019-10-24 [facility] Radiology [facility] [id number] 11:09:00 23:59:00 Encounter [place] [id number] [place] 4.2.7.2.686 [place] [id number] 2019-10-24 2019-10-24 Orders Doctor TITI [id number] 00:00:00 00:00:00 Only Unassigned, ZEESHAN 350.1.13.10 [place] [facility] [id number] [id number] 2018-04-07 2018-04-18 Outpatient Wally [facility] [id number] 23:09:00 19:45:00 Viri Landeros 2018-04-07 2018-04-18 Outpatient Wally [facility] [id number] 23:09:00 19:45:00 Viri Landeros Results Test Description Test Time Test Comments Results Result [facility] e Comments CT Head External 2020-07-18 This exam was not [place] Study 16:55:39 acquired at a [facility] facility and has not been interpreted by a [facility] Provider. The exam was imported into our imaging system. ECG 12 lead 2020-07-10 18:19:52 Test Item Value Reference Range Interpretation Comme nts Ventricular rate (test code = 253) 75 Atrial rate (test code = 255) 75 DE interval (test code = 266) 150 QRSD interval (test code = 260) 82 QT interval (test code = 264) 390 QTC interval (test code = 265) 435 P axis 1 (test code = 267) 70 QRS axis 1 (test code = 268) 90 T wave axis (test code = 270) 83 EKG impression (test code = 273) Normal sinus rhythm-Rightward axis -Cannot rule out Inferior infarct , age undetermined-Possible Anterior infarct (cited on or before 09-JUL-2020)-Abnormal ECG-In automated comparison with ECG of 07-NOV-2019 10:45,-No significant change was found- [facility] MethodistHemoglobin [id number] 21:42:00 Test Item Value Reference Interpretation Comments Range Hemoglobin A1C (test 7.3 See_Comment H For noel eone without code = 4548-4) known diabete s, a hemoglobin A1cv alue of 6.5% or grea ter indicates that they may have diabet es and this should be confirmed with a follow-up test. For someone with kn own diabetes, a aashish ue <7% indicates t hat their diabetes is well controlled and a value greater than or equal t o 7% indicates suboptimal cont rol. A1c targets rosanna uld be individualiz ed based on durati on of diabetes, ag e, comorbid conditions, and other considerations. Currently, no consensus exist s regarding use ofhemoglobin A1 c for diagnosis o f diabetes for children. [Automated mess age] The system whic h generated this result transmit karla reference range : <5.7 % of total Hgb. The refere nce range was not u sed to interpret th is result as normal/abnormal . HOWARD (test code = FASTING:YESPATIEN HOWARD) T REFUSED SOME TESTING; PATIENT ENCOURAGED TO RETURN.FASTING: YES RAC (test code = Performing RAC) Organization Information: Site ID: RGA Name: [facility] Address: [address] [place] [id number] Director: Rakan Aguirre Lab Interpretation Abnormal (test code = 05202-8) [facility] MethodistT4, [id number] 21:42:00 Test Item Value Reference Range Interpretation Comments T4, free (test code 0.9 ng/dL 0.8-1.8 = 3024-7) HOWARD (test code = FASTING:YESPATIENT REFUSED HOWARD) SOME TESTING; PATIENT ENCOURAGED TO RETURN.FASTING: YES RAC (test code = Performing Organization RAC) Information: Site ID: RGA [facility]: [facility] Address: [address] [place] [id number] Director: Rakan Aguirre [facility] [id number] 21:42:00 Test Item Value Reference Range Interpretation Comments Fructosamine (test code 290 umol/L 205-285 H = 71469-4) HOWARD (test code = HOWARD) FASTING:YESPATIENT REFUSED SOME TESTING; PATIENT ENCOURAGED TO RETURN.FASTING: YES RAC (test code = RAC) Performing Organization Information: Site ID: EZ Name: [facility], Address: [address] [place] [id number] Director: Vianey Barnard MD,PhD,LACIE Lab Interpretation (test Abnormal code = 85241-8) [facility] MethodistMicroalbumin / creatinine urine [id number] 21:42:00 Test Item Value Reference Interpretation Comments Range Creatinine, urine, 82 mg/dL 20-320 random (test code = 2161-8) Microalbumin, urine 22.1 mg/dL See Note: Referenc e (test code = Range:Reference 74349-6) RangeNot establ ished Microalbumin/creati 270 See_Comment H The ADA defines nine ratio (test abnormaliti es in code = 9318-7) albuminexcret ion as follows: Catego ry Result (mc g/mg creatinine) Nor mal <30Microalbumin uria 30-299 Clinical albumi anthony > OR = 300 Th e ADA recommends that at least two of threespecimens collected withi n a 3-6 month perio d beabnormal befo re considering a patient to bewi thin a diagnostic category. [Automated mess age] The system whic h generated this result transmit karla reference range : <30 mcg/mg creat. T he reference range was not used to interpret this result as normal/abnormal . HOWARD (test code = FASTING:YESPATIEN HOWARD) T REFUSED SOME TESTING; PATIENT ENCOURAGED TO RETURN.FASTING: YES RAC (test code = Performing RAC) Organization Information: Site ID: CHIOMA Name: [facility] Address: [address] [place] [address] Director: Rakan Aguirre Lab Interpretation Abnormal (test code = 51333-3) [facility] [id number] 21:42:00 Test Item Value Reference Range Interpretation Comments ABN test 53846 Be advised cinthia t refused (test your patient h as code = 8251-1) indicated ont he advance benefic iary notice their decisionnot to receive the following laboratory test s.As a result, the t ests will not be performed. HOWARD (test code FASTING:YESPATIENT = HOWARD) REFUSED SOME TESTING; PATIENT ENCOURAGED TO RETURN.FASTING: YES RAC (test code Performing = RAC) Organization Information: Site ID: [facility] Name: [facility] Address: [address] [place] [address] Director: Rakan Aguirre [facility] MethodistPlatelet [id number] 21:42:00 Test Item Value Reference Range Interpretation Comments Platelet estimate (test DECREASED ADEQUATE A code = 9317-9) HOWARD (test code = HOWARD) FASTING:YESPATIENT REFUSED SOME TESTING; PATIENT ENCOURAGED TO RETURN.FASTING: YES RAC (test code = RAC) Performing Organization Information: Site ID: [facility] Name: [facility] Address: [address] [place] [address] Director: Rakan Aguirre Lab Interpretation (test Abnormal code = 54872-9) [facility] Gastric [id number] 16:12:11Hm Interface, Radiology Results Incoming - 02/28/2020 4:15 PM CDTFormatting of this note might be di fferent from the original.PROCEDURE: NM GASTRIC EMPTYINGINDICATION: R68.81 Early satiety, Please perform 4 hour study only-do not perform 90 mins study.Comparison: Very recent gastric emptying study of 02/21/2020 TECHNIQUE: 1 millicurie of Ci-10t-dahmfs colloid were mixed with an egg and [...] evidence of gastroparesis today. The 4-hour delayed imagesare clearly normal and these are generally considered more accurate than early imaging in the diagnosis of gastroparesis, although this is unproven.[facility]-[id number] and approved by radiology resid ent/fellow: Dez Tena M.D.I, Mandeep Hemphill, personally reviewed the images and resident's/fellow's findings and agree with the final report.[facility] [id number] 15:03:10 Test Item Value Reference Range Interpretation Comments Case number (test [id number] code = [id number]) Surgical pathology See link below for PDF report (test code = Lab Report 2255) Result status (test This is Supplemental code = 8221883) [id number] [facility]UTE [id number] 14:21:00 Reason for exam:->bilateral C3,C4,C5 medical branch raiofrequency ablation FINAL REPORT Fluoroscopy 3 views intraoperative 10/21/2018 1:28 PM CLINICAL HISTORY: Instrument localization COMPARISON: None available IMPRESSION: Please correlate imaging reportfindings with the procedure note prepared by Dr. Taylor, as an intra-procedure imaging consultation was not requested. Reported fluoroscopy time: 44.5 seconds. Signed: Munir Grady Verified Date/Time: 10/21/2018 14:21:41 Reading Location: [facility] Radiology Reading Room POCT-GLUCOSE [id number] 14:02:00 Test Item Value Reference Range Interpretation Comments POC-GLUCOSE METER 160 mg/dL 70-110 H TESTED AT [facility] 67[address] ([facility]) (test code = M[place]DALIA [place]DE[place] 1538) [address] POCT-GLUCOSE [id number] 12:28:00 Test Item Value Reference Range Interpretation Comments POC-GLUCOSE METER 158 mg/dL 70-110 H TESTED AT [place] [address] ([facility]) (test code = [facility]IGDALIA [facility] [address] [place], ATTENDING PSYCHIATRIST IN OR/30 MINUTE [id number] 13:42:00Reason for exam:- >bilateral C3-C5 Medial Branch BlockFINAL REPORT Fluoroscopy 4 views intraoperative 09/16/2018 1:37 PM CLINICAL HISTORY: Instrument localization COMPARISON: None available IMPRESSION: Please correlate imaging report findings with the procedure note prepared by Dr. Taylor, as an intra-procedure imaging consultation was not requested. Reported fluoroscopy time: 35.8 seconds. Signed: Munir Grady Verified Date/Time: 09/16/2018 13:42:50 Reading Location: [facility] Radiology Reading Room POCT- GLUCOSE [id number] 12:18:00 Test Item Value Reference Range Interpretation Comments POC-GLUCOSE METER 154 mg/dL 70-110 H TESTED AT [facility] [address] ([facility]) (test code = MIGDALIA Brothers [place] 1538) [address]
--- NOTE | 2021-01-10 16:01 | EDPHYS ---
Physician Documentation [facility] Name: Octavio Bueno Age: 75 yrs Sex: Male : 1945 Arrival Date: 01/10/2021 Time: 15:31 Bed 12 Private MD: ED Physician Pawel Quesada HPI: 01/10 15:58 This 75 yrs old Male presents to ER via Ambulatory with complaints of Suture jmm Removal. 15:58 The patient has sutures on the left leg. Sutures/magdy progress: The patient has no jmm c/o's. The wound is well-healing with no redness, swelling, discharge, or dehiscence reported. It is unknown whether or not the patient has had similar symptoms in the past. Sutures placed on 12/31. Historical: - Allergies: 15:40 NKA; ca1 - PMHx: 15:40 Chronic kidney disease stage V; Diabetes - IDDM; Gout; Hyperlipidemia; Hypertension; ca1 Migraines r/t head injury; Myocardial infarction; - PSHx: 15:40 CABG; heart transplant 2006; ca1 - Immunization history:: Client reports receiving the 2nd dose of the Covid vaccine, Client reports receiving the 1st dose of the Covid vaccine, Pneumococcal vaccine is up to date, Flu vaccine is up to date. - Social history:: Smoking status: Patient denies any tobacco usage or history of. ROS: 15:58 Constitutional: Negative for fever, chills, and weight loss, Cardiovascular: Negative jmm for chest pain, palpitations, and edema, Respiratory: Negative for shortness of breath, cough, wheezing, and pleuritic chest pain. 15:58 All other systems are negative. Exam: 15:58 Constitutional: This is a well developed, well nourished patient who is awake, alert, jmm and in no acute distress. Head/Face: atraumatic. Eyes: EOMI, no conjunctival erythema appreciated ENT: Moist Mucus Membranes Neck: Trachea midline, Supple Chest/axilla: Normal chest wall appearance and motion. Cardiovascular: Regular rate and rhythm. No edema appreciated Respiratory: Normal respirations, no respiratory distress appreciated Abdomen/GI: Non distended, soft Back: Normal ROM 15:58 Skin: healing laceration noted to the left lower leg. 15:58 Neuro: Orientation: is normal, Mentation: is normal, Memory: is normal. 15:58 Psych: Behavior/mood is pleasant, cooperative. Vital Signs: 15:38 BP 128 / 79; Pulse 83; Resp 16 S; Temp 97.2(TE); Pulse Ox 98% on R/A; Weight 83.01 kg ca1 (R); Height 5 ft. 9 in. (175.26 cm) (R); Pain 0/10; 15:38 Body Mass Index 27.02 (83.01 kg, 175.26 cm) ca1 MDM: 15:48 Patient medically screened. [facility] 15:59 Data reviewed: vital signs, nurses notes. Counseling: I had a detailed discussion with hilary the patient and/or guardian regarding: the historical points, exam findings, and any diagnostic results supporting the discharge/admit diagnosis, the need for outpatient follow up, to return to the emergency department if symptoms worsen or persist or if there are any questions or concerns that arise at home. ED course: Sutures removed in the ED. Patient is given strict return precautions. Patient understood and agrees with the plan of care. . Administered Medications: No medications were administered Disposition: 18:47 Co-signature as Attending Physician, Pawel Quesada MD I agree with the assessment and 4 plan of care. Disposition: 01/10/21 16:00 Discharged to Home. Impression: Encounter for removal of sutures. - Condition is Stable. - Discharge Instructions: Suture Removal, Care After. - Medication Reconciliation Form, Thank You Letter, Antibiotic Education, Prescription Opioid Use form. - Follow up: Private Physician; When: As needed; Reason: Recheck today's complaints, Continuance of care, Re-evaluation by your physician. Signatures: Flo Barrios PA PA jmm Wadley, Terrence, MD MD tw4 [place] Cheryl RN RN ca1 Corrections: (The following items were deleted from the chart) 16:18 16:00 01/10/2021 16:00 Discharged to Home. Impression: Encounter for removal of eb sutures. Condition is Stable. Forms are Medication Reconciliation Form, Thank You Letter, Antibiotic Education, Prescription Opioid Use. Follow up: Private Physician; When: As needed; Reason: Recheck today's complaints, Continuance of care, Re-evaluation by your physician. hilary
--- NOTE | 2021-01-10 16:01 | ER ---
Nurse's Notes [facility] Name: Octavio Bueno Age: 75 yrs Sex: Male : 1945 Arrival Date: 01/10/2021 Time: 15:31 Bed 12 Private MD: Diagnosis: Encounter for removal of sutures Presentation: 01/10 15:38 Chief complaint: Patient states: Lac repair done on 12/31/2020. here for suture removal. ca1 Coronavirus screen: Client denies travel out of the [place] in the last 14 days. At this time, the client does not indicate any symptoms associated with coronavirus-19. Ebola Screen: Patient negative for fever greater than or equal to 101.5 degrees Fahrenheit, and additional compatible Ebola Virus Disease symptoms Patient denies exposure to infectious person. Patient denies travel to an Ebola-affected area in the 21 days before illness onset. No symptoms or risks identified at this time. Initial Sepsis Screen: Does the patient meet any 2 criteria? No. Patient's initial sepsis screen is negative. Does the patient have a suspected source of infection? No. Patient's initial sepsis screen is negative. Risk Assessment: Do you want to hurt yourself or someone else? Patient reports no desire to harm self or others. Onset of symptoms was January 10, 2021. 15:38 Acuity: YAHIR 5 ca1 15:38 Method Of Arrival: Ambulatory ca1 Historical: - Allergies: 15:40 NKA; ca1 - PMHx: 15:40 Chronic kidney disease stage V; Diabetes - IDDM; Gout; Hyperlipidemia; Hypertension; ca1 Migraines r/t head injury; Myocardial infarction; - PSHx: 15:40 CABG; heart transplant 2006; ca1 - Immunization history:: Client reports receiving the 2nd dose of the Covid vaccine, Client reports receiving the 1st dose of the Covid vaccine, Pneumococcal vaccine is up to date, Flu vaccine is up to date. - Social history:: Smoking status: Patient denies any tobacco usage or history of. Screenin:42 Abuse screen: Denies threats or abuse. Denies injuries from another. Nutritional ca1 screening: No deficits noted. Tuberculosis screening: No symptoms or risk factors identified. Fall Risk None identified. Assessment: 15:42 General: Appears in no apparent distress. comfortable, Behavior is calm, cooperative, ca1 appropriate for age. Pain: Denies pain. Neuro: Level of Consciousness is awake, alert, obeys commands, Oriented to person, place, time, situation. Derm: Skin is intact, is healthy with good turgor, Skin is pink, warm \T\ dry. Musculoskeletal: Circulation, motion, and sensation intact. Capillary refill < 3 seconds. Vital Signs: 15:38 BP 128 / 79; Pulse 83; Resp 16 S; Temp 97.2(TE); Pulse Ox 98% on R/A; Weight 83.01 kg ca1 (R); Height 5 ft. 9 in. (175.26 cm) (R); Pain 0/10; 15:38 Body Mass Index 27.02 (83.01 kg, 175.26 cm) ca1 ED Course: 15:31 Patient arrived in ED. am2 15:39 Triage completed. ca1 15:40 Arm band placed on right wrist. ca1 15:42 Rupali Bañuelos, RN is Primary Nurse. ca1 15:42 Patient has correct armband on for positive identification. Bed in low position. Call [facility] light in reach. Side rails up X 1. Pulse ox on. NIBP on. 15:42 Patient did not have IV access during this emergency room visit. ca1 15:45 Flo Barrios PA is PHCP. [facility] 15:45 Pawel Quesada MD is Attending Physician. [facility] 16:00 No provider procedures requiring assistance completed. Removal of Removed sutures from ca1 left leg Suture site is well healed Patient tolerated well. Administered Medications: No medications were administered Outcome: 16:00 Discharge ordered by . [facility] 16:15 Discharged to home ambulatory, with significant other. ca1 16:15 Condition: stable 16:15 Discharge instructions given to patient, Instructed on discharge instructions, follow up and referral plans. Demonstrated understanding of instructions, follow-up care. 16:18 Patient left the ED. eb Signatures: Flo Barrios PA PA jmm Moreno, Amanda am2 [place] Rupali Bañuelos, RN RN ca1
[2021-01-10 16:24] VITALS: BP 128/79; TEMP 97.2; O2SAT 98
== END 2021-01-10 16:18 | disposition home or self-care (01) ==
LOC: ER 15:29
DX: Z48.02 Encounter for removal of sutures (principal)
CPT/HCPCS: 99283

== ENCOUNTER 2021-09-05 00:31 | Emergency (ER) | payer OTHER ==
--- OUTSIDE RECORDS SUMMARY | 2021-09-05 00:34 | XMS REPORT | Clinical Summary ---
:1945 Author Organization [facility] MD [facility] Address [address] [place] [address] Care Team Providers Name Role Phone MD Jose Luis Primary Care Provider Terrell Saxena MD Unavailable Terrell Saxena MD Unavailable MD Lucian Unavailable MD Jose Luis Unavailable Allergies Active Allergy Reactions Severity Noted Date Comments Sirolimus 08/06/2016 Medications Medication Sig Dispensed Refills Start Date End Date Status tacrolimus (PROGRAF) Take 0.5 mg by 0 Active 0.5 mg capsule mouth. mycophenolate Take by mouth. 0 A ctive (CELLCEPT) 500 mg tablet predniSONE (DELTASONE) Take 5 mg by 0 Active 5 mg tablet mouth. NOVOLIN 70/30 100 0 08/01/2016 A ctive unit/mL (70-30) injection aspirin 81 mg EC tablet Take 81 mg by 0 Active mouth. calcium Take 1 tablet by 0 Act tricia carbonate-vitamin D3 mouth. 1,250 mg (500 mg as elemental)-200 units tablet multivitamin Take 1 tablet by 0 Active (THERAGRAN) tab tablet mouth. thiamine (VITAMIN B-1) Take 100 mg by 0 Active 100 mg tablet mouth. omega-3 acid ethyl Take 1 g by 0 Active esters (LOVAZA) 1 g mouth. capsule folic acid (FOLVITE) 1 TAKE ONE TABLET 3 06/18/2016 Active mg tablet BY MOUTH DAILY magnesium oxide (MAOX) Take 400 mg by 0 Active 400 mg tablet mouth. allopurinol (ZYLOPRIM) Take 100 mg by 0 Active 100 mg tablet mouth. pravastatin (PRAVACHOL) TAKE ONE TABLET 2 05/06/2016 Active 40 mg tablet BY MOUTH IN THE LATE EVENING DAILY. amLODIPine (NORVASC) 5 Take 5 mg by 0 Active mg tablet mouth. labetalol (TRANDATE) TAKE 1 TABLET BY 3 06/25/2016 Active 300 mg tablet MOUTH EVERY 12 HOURS labetalol (TRANDATE) TAKE 2 TABLETS BY 3 04/30/2016 Active 200 mg tablet MOUTH TWICE A DAY esomeprazole (NexIUM) Take 40 mg by 0 Active 40 MG capsule mouth. gabapentin (NEURONTIN) Take 300 mg by 0 Active 300 mg capsule mouth. torsemide (DEMADEX) 20 TAKE 2 TABLETS BY 3 6 Active mg tablet MOUTH ONCE DAILY potassium chloride TAKE ONE TABLET 3 06/25/2016 Active (K-DUR,KLOR-CON M) 10 BY MOUTH TWICE mEq tablet DAILY metOLazone (ZAROXOLYN) Take 2.5 mg by 0 Active 2.5 mg tablet mouth. isosorbide mononitrate Take 30 mg by 0 Active (IMDUR) 30 mg 24 hr mouth. tablet tamsulosin (FLOMAX) 0.4 TAKE ONE CAPSULE 3 6 Active mg 24 hr capsule EVERY EVENING ALPRAZolam (XANAX) 0.25 TAKE 1 TABLET BY 1 6 Active mg tablet MOUTH 4 TIMES A DAY FOR 30 DAYS SINGULAIR 10 mg tablet TAKE 1 TABLET BY 0 07/28/2016 Active MOUTH EVERY DAY Active Problems Not on file Social History Tobacco Use Types Packs/Day Years Used Date Never Assessed Sex Assigned at Date Recorded Not on file Last Filed Vital Signs Not on file Plan of Treatment Health Maintenance Due Date Last Done Comments COVID-19 Vaccination (1) 1957 Results Not on fileafter 09/05/2020 Insurance Payer Benefit Plan / Subscriber ID Effective Dates Phone Addre ss Type Group MEDICARE MEDICARE PART [id number] 1997-[place] [phone] [employer] Medicare A AND B t 2 [employer]UT[employer] [address] [place] [phone] Octavio Bueno Personal/Family Self 1945 [address] (Home) [place] [id number] Octavio Bueno Personal/Family Self 1945 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
--- OUTSIDE RECORDS SUMMARY | 2021-09-05 00:38 | XMS REPORT | Continuity of Care Document ---
:1945 Author Organization [facility] t Address [address] [place] [address] Care Team Providers Name Role Phone [phone] Primary Care Physician Unavailable JOSE LUIS Attending Clinician Unavailable EBENEZER Attending Clinician Unavailable PAUL Attending Clinician Unavailable JACOB QUINTANILLA Attending Clinician Unavailable Nurse, Pob Immunization Attending Clinician Unavailable Jacob Quintanilla DO Attending Clinician SPEEDY Attending Clinician Unavailable LACEY Attending Clinician Unavailable SPARKLE Attending Clinician Unavailable ROCK Attending Clinician Unavailable TWIN Attending Clinician Unavailable TAMANNA Attending Clinician Unavailable Doctor Unassigned, Name Attending Clinician Unavailable JARED Attending Clinician Unavailable GEOVANNI Attending Clinician Unavailable RIYA Attending Clinician Unavailable Radiology Attending Clinician Unavailable ELO TAYLOR Attending Clinician Unavailable JOSE LUIS Attending Clinician Unavailable GEOVANNI Admitting Clinician Unavailable ELO TAYLOR Admitting Clinician Unavailable Payers Payer Name Policy Type Policy Number Effective Date Expiration Date S peterson MEDICARE PART A AND [id number] 1997 B 00:00:00 MEDICARE PART A \\T\\ [id number] 1997 B 00:00:00 COMMERCIAL [id number] 2008 NON-CONTRACT 00:00:00 GENERIC MEDICARE PART A AND [id number] 1997 B 00:00:00 Problems Condition Condition Condition Status Onset Resolution Last Treating Co mments Source Name Details Category Date Date Treatment Clinician Date MULTIPLE Diagnosis Active 2018-04-27 Bishop monroerijosie RIGHT 04-07 22:11:00 l SIDED RIB MULTIPLE 00:00: Her aguirre FX RIGHT 00 SIDED RIB FX Active 8 [facility] GO Diagnosis Active 2018-04-07 Memoria BILLING/ 04-07 23:03:00 l LFLT #3435 00:00: Brent STILES 00 BILLING/ LFLT #3435 Active 04/07/2018 [facility] No known No known Disease [place] active active Health problems problems Acute Problem 2018-11-05 Memor ia kidney 13:12:34 l failure, Acute [place] unspecifie kidney d failure, unspecifie d 11/05/2018 [facility] Acute Problem 2018-11-05 Memor ia posthemorr 13:12:34 l hagic Acute Sae anemia posthemorr hagic anemia 11/05/2018 [facility] Heart Problem 2018-11-05 Memor ia transplant 13:12:34 l status Heart Sae transplant status 11/05/2018 [facility] Urinary Problem 2018-11-05 Shine sarah tract 13:12:34 l infection, Urinary Her aguirre site not tract specified infection, site not specified 11/05/2018 [facility] Atelectasi Problem 2018-11-05 M emoria s 13:12:34 l [place] Atelectasi s 11/05/2018 [facility] Fall on Problem 2018-11-05 Shine sarah and from 13:12:34 l ladder, Fall on Brent n initial and from encounter ladder, initial encounter 11/05/2018 [facility] 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 11/05/2018 [facility] Abrasion Problem 2018-11-05 Mem oria of left 13:12:34 l upper arm, Abrasion He rmann initial of left encounter upper arm, initial encounter 11/05/2018 [facility] Hyperlipid Problem 2018-11-05 M emoria emia, 13:12:34 l unspecifie Brent n d Hyperlipid emia, unspecifie d 11/05/2018 [facility] Traumatic Problem 2018-11-05 Me moria subcutaneo 13:12:34 l us [place] emphysema, Traumatic initial subcutaneo encounter us emphysema, initial encounter 11/05/2018 [facility] Acute pain Problem 2018-11-05 M emoria due to 13:12:34 l trauma Acute [place] pain due to trauma 11/05/2018 [facility] senior living Problem 2018-11-05 Me moria (current) 13:12:34 l use of Long Sae insulin term (current) use of insulin 11/05/2018 [facility] Hypoxemia Problem 2018-11-05 Sd moria 13:12:34 l Sae Hypoxemia 11/05/2018 [facility] Unspecifie Problem 2018-11-05 M emoria d 13:12:34 l [place] Brent n a coli [E. Unspecifie coli] as d the cause [place] of a coli [E. 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 Thoracic Mallorie nn aortic ectasia 11/05/2018 [facility] Gastro-eso Problem 2018-11-05 M emoria phageal 13:12:34 l reflux [place] disease Gastro-eso without phageal esophagiti reflux s disease without esophagiti s 11/05/2018 [facility] Hyperkalem Problem 2018-11-05 M emoria ia 13:12:34 l [place] Hyperkalem ia 11/05/2018 [facility] Diarrhea, Problem 2018-11-05 Sd moria unspecifie 13:12:34 l d Sae Diarrhea, unspecifie d 11/05/2018 [facility] Contusion Problem 2018-11-05 Sd moria of 13:12:34 l abdominal Sae wall, Contusion initial of encounter abdominal wall, initial encounter 11/05/2018 [facility] MULTIPLE Diagnosis Active 2018-04-27 M emoria FRACTURES 22:11:00 l OF RIBS, MULTIPLE Herm kris UNSP SIDE, FRACTURES I OF RIBS, UNSP SIDE, I Active [facility] Multiple Problem 2018-11-05 Mem oria fractures 13:12:34 l of ribs, Multiple Herm kris right fractures side, of ribs, initial right encounter side, for closed initial fracture encounter for closed fracture 11/05/2018 [facility] Hypertensi Problem 2018-11-05 M emoria ve heart 13:12:34 l and [place] chronic Hypertensi kidney ve heart disease and with heart chronic failure kidney and stage disease 1 through with heart stage 4 failure chronic and stage kidney 1 through disease, stage 4 or chronic unspecifie kidney d chronic disease, kidney or disease unspecifie d chronic kidney disease 11/05/2018 [facility] Chronic Problem 2018-11-05 Shine sarah kidney 13:12:34 l disease, Chronic Mallorie nn stage 4 kidney (severe) disease, stage 4 (severe) 11/05/2018 [facility] Contusion Problem 2018-11-05 Me moria of lung, 13:12:34 l unilateral Brent n , initial Contusion encounter of lung, unilateral , initial encounter 11/05/2018 [facility] Acidosis Problem 2018-11-05 Mem oria 13:12:34 l Acidosis Brent n 11/05/2018 [facility] Unspecifie Problem 2018-11-05 M emoria d fracture 13:12:34 l of T9-T10 Sae vertebra, Unspecifie initial d fracture encounter of T9-T10 for closed vertebra, fracture initial encounter for closed fracture 11/05/2018 [facility] History of Past Illness Condition Condition Condition Status Onset Resolution Last Treating Co mments Source Name Details Category Date Date Treatment Clinician Date Traumatic Problem 2018-2018-11-05 2018-11-05 Memoria hemopneumo 8-03 13:12:34 13:12:34 l thorax, 03:07: [place] initial Traumatic 22 encounter hemopneumo thorax, initial encounter 04/29/2018 11/05/2018 [facility] Allergies, Adverse Reactions, Alerts Allergy Allergy Status Severity Reaction(s) Onset Inactive Treating Comm ents Source Name Type Date Date Clinician Wound Drug Active Unknown 2017-09 TEARS [place] Dressing Allergy 2-19 SKIN. [place] Healt h Adhesive 00:00: WITH 00 PAPER Sirolimu Propensi Active Swelling 2015-09 [place] s ty to 1-10 Health adverse 00:00: reaction 00 s NO KNOWN Drug Active Univers ALLERGIE Class ity of S [facility] Social History Social Habit Start Date Stop Date Quantity Comments Source Exposure to Not sure MD Verosee SARS-CoV-2 (event) Alcohol intake 2021-07-04 2021-07-04 .29 /d MD Health 00:00:00 00:00:00 Sex [birth year] MD Esquivel 00:00:00 00:00:00 Smoking Status Start Date Stop Date Source Unknown if ever smoked [facility] Never smoked tobacco MD Health Medications Ordered Filled Start Stop Current Ordering Indication Dosage Frequency Signature Comments Components Source Medication Medication Date Date Medication? Clinician (SIG) Name Name aspirin Yes 81mg 81 mg. [place] (ASPIRIN) 03-07 Health 81 MG 14:42: chewable 24 tablet aspirin Yes 81mg 81 mg. [place] (ASPIRIN) 03-07 Health 81 MG 09:42: chewable 24 tablet gabapentin Yes 300 mg = 1 M emoria 300 MG Oral 04-18 cap, PO, l Capsule 22:48: BID, # 28 Mallorie nn 00 cap, 0 Refill(s) methocarbam No 1,000 mg = Memoria ol 500 mg 04-18 2 tab, PO, l oral tablet 22:44: Q8H, X 14 H ermann 00 day, # 84 tab, 0 Refill(s) Lidocaine Yes 1 patch, Shine sarah 0.05 MG/MG 04-18 TOP, Q24H, l Transdermal 22:44: # 14 Brent n Patch 00 patch, 0 Refill(s) Docusate Yes 100 mg = 1 Mem oria Sodium 100 - cap, PO, l MG Oral 22:44: BID, # 28 Mallorie nn Capsule 00 cap, 0 [Colace] Refill(s) tramadol No 50 mg = 1 Shine sarah hydrochlori - tab, PO, l de 50 MG 22:44: Q6H, X 7 Mallorie nn Oral Tablet 00 day, # 28 tab, 0 Refill(s) polyethylen No 17 gm, PO, Memoria e glycol 04-18 BID, X 14 l 3350 oral 22:44: day, # 12 Her aguirre powder for 00 ea, 0 reconstitut Refill(s) ion Tacrolimus No Notes: Memor ia 04-18 Avoid l 04:07: grapefruit [place] 00 and grapefruit juice. (Same As: Prograf) Methadone No Notes: Memori a 04-17 (Same as: l 21:00: Dolophine) [place] Prograf No Notes: Memoria 7-22 (Same As: l 13:00: Prograf) Sae 00 remove No Notes: Memoria patch - Remove l 11:00: patch 12 [place] 00 hours after applicatio n each day. Prograf No Notes: Memoria 7-22 (Same As: l 01:00: Prograf) Lidocaine No 1 patch, Shine sarah 0.05 MG/MG 04-16 Route: l Transdermal 23:00: TOP, Q24H, Sae Patch 00 Drug form: FILM, Start date: [...] Memoria 7-19 Tablet l 21:30: should not Sae 00 be chewed or crushed. (Same as: Protonix) Methadone No Notes: Memori a 7-19 (Same as: l 18:00: Dolophine) Simethicone No Notes: Shine sarah 7-19 (Same as: l 01:35: Mylicon) Isolyte S No Notes: Memori a PH-7.4 04-13 (Same as: l (Bolus) IV 15:44: Isolyte [...] Notes: Memoria 7-17 (Same l 22:21: as:Molasse Sae 00 s) Flomax No Notes: Memoria 7-17 (Same As: l 22:00: Flomax) Sae "Do Not Crush" Dulcolax No Notes: Memoria Laxative -17 (Same As: l 21:27: Dulcolax, [place] 00 Bisco-Lax) remove No Notes: Memoria patch 04-12 Remove l 19:05: patch 12 Sae 00 hours after applicatio n each day. Fosfomycin No Notes: Memor ia 04-12 (Same as: l 17:00: Monural) Sae mix w/ 90 to 120 ml (3 to 4 ounces) of water and stir to dissolve. Do not use hot water. Take immediatel y after dissolving in water. Lidocaine No Notes: Memori a Hydrochlori 17 Apply only l de 0.05 17:00: once for Brent n MG/MG 00 up to 12 Transdermal hours in a Patch 24-hour [Lidoderm] period (12 hours on and 12 hours off). (Same as: Lidoderm) "Remove old patch before applicatio n of new patch" Oxycodone No Notes: Memori a Hydrochlori 17 (Same as: l de 5 MG 15:29: Roxicodone Herm kris Oral Tablet 00 ) gabapentin No Notes: Memor ia 100 MG Oral 16 (Same as: l Capsule 21:00: Neurontin) Herm kris 00 Flomax No Notes: Memoria 7-16 (Same As: l 13:30: Flomax) [place] 00 "Do Not Crush" sennosides, No Notes: Shine sarah LONG-TERM 7-15 (Same as: l 22:00: Senokot) Sae Miralax No Notes: Memoria 7-15 Dissolve l 22:00: in 8 oz of [place] 00 water or juice. (Same as: Miralax) Oxycodone No Notes: Memori a Hydrochlori 7-15 (Same as: l de 5 MG 17:00: Roxicodone Herm kris Oral Tablet ) Bupivacaine No Notes: Shine sarah liposome 7-15 (Same as: l 17:00: Exparel) [place] NOT FOR IV use Postoperat tricia analgesia: [...] Laxative 7-15 (Same As: l 16:54: Dulcolax, Sae Bisco-Lax) Alprazolam No Notes: Memor ia 0.5 MG Oral 7-15 With food l Tablet 16:37: or milk Sae [Xanax] (Same as: Xanax) Aspirin 81 No Notes: Do Me moria MG Enteric 7-15 not crush l Coated 14:00: or chew. [place] Tablet (Same As: Ecotrin) sennosides, No Notes: Shine sarah LONG-TERM 7-15 (Same as: l 14:00: Senokot) Sae 00 Miralax No Notes: Memoria 7-15 Dissolve l 14:00: in 8 oz of [place] 00 water or juice. (Same as: Miralax) Imdur No Notes: Memoria 7-15 (Same l 14:00: as:Imdur) Sae 00 "Do Not Crush" Take on empty stomach/ full glass of water. Do not crush torsemide No Notes: Memori a 7-15 (Same As: l 14:00: Demadex) Sae 00 Alprazolam No Notes: Memor ia 0.5 MG Oral 7-15 With food l Tablet 03:31: or milk [place] [Xanax] 00 (Same as: Xanax) Pravastatin No Notes: Shine sarah 7-15 (Same as: l 02:00: Pravachol) [place] Sulfamethox No Notes: One Memoria azole 800 7-14 DS tablet l MG / 22:28: = [place] Trimethopri 00 trimethopr m 160 MG im [...] Memori a 7-14 Route: l 17:00: IVPB, [place] 00 ONCE, Dosing Weight 87.273, kg, Priority: NOW, Start date: 04/09/18 12:00:00 CDT, Stop date: 04/09/18 12:00:00 CDT Dulcolax No Notes: Memoria Laxative 7-14 (Same As: l 15:36: Dulcolax, Sae 00 Bisco-Lax) Labetalol 2018-0 No Notes: Memori a 7-14 With food. l 15:29: (Same as:Trandat e, Normodyne) Insulin No 60 Memoria regular 7-14 units) l 15:22: WASTE: F/P Sae - Black; E - Municipal Trash Bin Stable for 28 days at room temperatur e Expires in days from ____Date Glucagon No 1 mg, Memoria 7-14 Route: IM, l 15:22: Drug form: [place] 00 PDR/INJ, PRN, Dosing Weight 87.273, kg, [...] Notes: Memoria 7-14 (Same l 13:00: as:Robaxin [place] ) Tramadol No Notes: Not Mem oria 7-14 to exceed l 09:00: 400mg/day. Sae (Same As: Ultram) Streptococc No Notes: Shine sarah us 7-14 Shake well l pneumoniae 03:20: prior to Her aguirre serotype 1 12 use (Same capsular as: antigen Prevnar diphtheria 13) [id number] protein conjugate vaccine / Streptococc us pneumoniae serotype 14 capsular antigen diphtheria [id number] protein conjugate vaccine / Streptococc us pneumoniae [...] tab, PO, l Tablet 17:51: Daily, 0 [place] 00 Refill(s) Ferrousal No 325 mg = 1 Me moria 325 mg oral 7-13 tab, PO, l tablet 17:51: Daily, 0 [place] 00 Refill(s) isosorbide No 30 mg = 1 Me moria mononitrate 7-13 tab, PO, l 30 mg oral 17:49: QAM, 0 Mallorie nn tablet, 00 Refill(s) extended release tamsulosin No 0.4 mg = 1 M emoria 0.4 mg oral 7-13 cap, PO, l capsule 17:49: Daily, 0 Brent n 00 Refill(s) potassium No 10 mEq = 1 Me moria chloride 10 7-13 tab, PO, l mEq oral 17:48: Daily, 0 Mallorie nn tablet, 00 Refill(s) extended release torsemide No 20 mg = 1 Mem oria 20 mg oral 7-13 tab, PO, l tablet 17:45: BID, 0 [place] 00 Refill(s) gabapentin No 300 mg = [...] tab, PO, l tablet 17:19: BID, 0 [place] 00 Refill(s) magnesium No 400 mg = 1 Me moria oxide 400 7-13 tab, PO, l mg oral 17:18: BID, 0 Sae tablet 00 Refill(s) Folic Acid No 1 mg = 1 Mem oria 1 MG Oral 7-13 tab, PO, l Tablet 17:17: Daily, 0 [place] 00 Refill(s) Fish Oil No 1,000 mg = Mem oria 1000 mg 7-13 1 cap, PO, l oral 17:14: BID, 0 Sae capsule 00 Refill(s) thiamine No 100 mg [...] tab, CHEW, l Tablet 17:12: Daily, 0 [place] 00 Refill(s) NovoLIN No 24 unit, Memori a 70/30 7-13 SUB-Q, l 17:11: QPM, 0 Sae 00 Refill(s) NovoLIN No 18 unit, Memori a 70/30 - SUB-Q, l 17:09: QAM, 0 Sae Refill(s) predniSONE No 5 mg = 1 Mem oria 5 mg oral 04-08 tab, PO, l tablet 17:09: Daily, 0 [place] Refill(s) tacrolimus No 0.5 mg = 1 M emoria 0.5 mg oral 04-08 cap, PO, l capsule 17:09: Q12H, 0 Sae 00 Refill(s) Prednisone No Notes: Memor ia 04-08 Take with l 14:00: food. Sae 00 Tacrolimus No Notes: Memor ia 04-08 Avoid l 13:00: grapefruit [place] 00 and grapefruit juice. (Same As: Prograf) heparin No Notes: Memoria sodium, 04-08 porcine l porcine 13:00: heparin [place] 2500 UNT/ML 00 Injectable Solution acetaminoph No Notes: Max Memoria en 04-08 acetaminop l 12:23: hen 4000 [place] 00 mg/day (4 gm/day). (Same as: Tylenol Extra Strength) iodixanol No 100 mL, Memor ia 04-08 Route: l 08:59: IVP, Drug Sae 00 Form: SOLN, kg, ONCALL, STAT, Start [...] oria 04-08 to exceed l 06:48: 400mg/day. [place] 00 (Same As: Ultram) gabapentin No Notes: Memor ia 04-08 (Same as: l 06:46: Neurontin) Sae 00 Acetaminoph No Notes: Max Memoria en 04-08 acetaminop l 06:46: hen 4000 Sae 00 mg/day (4 gm/day). (Same as: Tylenol Extra Strength) Fentanyl No Notes: Memoria 04-08 (Same as: l 04:37: Sublimaze) Preservat tricia free. Saline No Notes: Memoria Flush 0.9% 04-08 (Same as: l 04:37: BD [place] 00 Posiflush) amLODIPine 2015-09 Yes 5mg Take 5 mg MD (NORVASC) 5 1-10 by mouth. And erso mg tablet 09:20: n 20 esomeprazol 2015-09 Yes 40mg Take 40 mg MD e (NexIUM) 1-10 by mouth. Lavelle rso 40 MG 09:20: n capsule 20 gabapentin 2015-09 Yes 300mg Take 300 MD (NEURONTIN) 1-10 mg by Anderso 300 mg 09:20: mouth. n capsule 20 metOLazone 2015-09 Yes 2.5mg Take 2.5 MD (ZAROXOLYN) 1-10 mg by Anderso 2.5 mg 09:20: mouth. n tablet 20 isosorbide 2015-09 Yes 30mg Take 30 mg M D mononitrate 1-10 by mouth. And erso (IMDUR) 30 09:20: n mg 24 hr 20 tablet thiamine 2015-09 Yes 100mg Take 100 MD (VITAMIN 1-10 mg by Anderso B-1) 100 mg 09:20: mouth. n tablet 19 omega-3 2015-09 Yes 1g Take 1 g MD acid ethyl 1-10 by mouth. Lavelle rso esters 09:20: n (LOVAZA) 1 19 g capsule magnesium 2015-09 Yes 400mg Take 400 MD oxide 1-10 mg by Anderso (MAOX) 400 09:20: mouth. n mg tablet 19 allopurinol 2015-09 Yes 100mg Take 100 M D (ZYLOPRIM) 1-10 mg by Anderso 100 mg 09:20: mouth. n tablet 19 predniSONE 2015-09 Yes 5mg Take 5 mg MD (DELTASONE) 1-10 by mouth. And erso 5 mg tablet 09:20: n 19 aspirin 81 2015-09 Yes 81mg Take 81 mg M D mg EC 1-10 by mouth. Anderso tablet 09:20: n 19 calcium 2015-09 Yes 1{tbl} Take 1 MD carbonate-v 1-10 tablet by And erso itamin D3 09:20: mouth. n 1,250 mg 19 (500 mg as elemental)- 200 units tablet multivitami 2015-09 Yes 1{tbl} Take 1 MD n 1-10 tablet by Anderso (THERAGRAN) 09:20: mouth. n tab tablet 19 tacrolimus 2015-09 Yes .5mg Take 0.5 MD (PROGRAF) 1-10 mg by Anderso 0.5 mg 09:20: mouth. n capsule 18 mycophenola 2015-09 Yes Take by te 1-10 mouth. Anderso (CELLCEPT) 09:20: n 500 mg 18 tablet NOVOLIN 2015-09 Yes MD 70/30 100 1-05 Anderso unit/mL 00:00: n (70-30) 00 injection SINGULAIR 2015-09 Yes TAKE 1 MD 10 mg 1-01 TABLET BY Anderso tablet 00:00: MOUTH n 00 EVERY DAY labetalol Yes TAKE 1 MD (TRANDATE) 9-29 TABLET BY Lavelle rso 300 mg 00:00: MOUTH n tablet 00 EVERY 12 HOURS potassium Yes TAKE ONE MD chloride 9-29 TABLET BY Fidencio bermeo (K-DUR,KLOR 00:00: MOUTH n -CON M) 10 00 TWICE mEq tablet DAILY folic acid Yes TAKE ONE MD (FOLVITE) 1 9-22 TABLET BY And erso mg tablet 00:00: MOUTH n 00 DAILY torsemide Yes TAKE 2 MD (DEMADEX) 9-22 TABLETS BY Lavelle rso 20 mg 00:00: MOUTH ONCE n tablet 00 DAILY ALPRAZolam Yes TAKE 1 MD (XANAX) 9-03 TABLET BY Anderso 0.25 mg 00:00: MOUTH 4 n tablet 00 TIMES A DAY FOR 30 DAYS tamsulosin Yes TAKE ONE MD (FLOMAX) 8-25 CAPSULE Anderso 0.4 mg 24 00:00: EVERY n hr capsule 00 EVENING pravastatin Yes TAKE ONE MD (PRAVACHOL) 8-10 TABLET BY And erso 40 mg 00:00: MOUTH IN n tablet 00 THE LATE EVENING DAILY. labetalol 2016-0 Yes TAKE 2 MD (TRANDATE) 8-04 TABLETS BY And erso 200 mg 00:00: MOUTH n tablet 00 TWICE A DAY Immunizations Ordered Filled Immunization Date Status Comments Sour e Immunization Name Name SARS-COV-2 COVID-19 2021-06-23 Completed [facility] Vital Signs Vital Name Observation Time Observation Value Comments Source Respitory Rate 2018-04-18 23:44:00 Memori al Sae Heart Rate 2018-04-18 23:44:00 Memorial Sae Systolic (mm Hg) 2018-04-18 23:44:00 Shine rial Sae Diastolic (mm Hg) 2018-04-18 23:44:00 Mem orial [place] Temperature Oral (F) 2018-04-18 23:44:00 97.5 F Memorial Sae Heart Rate 2018-04-18 17:46:00 Memorial Sae Respitory Rate 2018-04-18 17:46:00 Memori al Sae Temperature Oral (F) 2018-04-18 17:46:00 97.8 F Memorial Sae Systolic (mm Hg) 2018-04-18 17:46:00 Shine rial [place] Diastolic (mm Hg) 2018-04-18 17:46:00 Mem orial [place] Systolic (mm Hg) 2018-04-18 14:34:00 Shine rial Sae Diastolic (mm Hg) 2018-04-18 14:34:00 Mem orial Sae Temperature Oral (F) 2018-04-18 14:34:00 97.5 F Memorial Sae Heart Rate 2018-04-18 14:34:00 Memorial [place] Respitory Rate 2018-04-18 14:34:00 Memori al Sae Weight 2018-04-09 02:59:00 Memorial Sae BMI Calculated 2018-04-09 02:59:00 Memori al Sae Height 2018-04-09 02:59:00 175.26 cm [facility] [place] Procedures Procedure Date / Time Performed Performing Clinician [facility] e SARS-COV-2 COVID-19 2021-06-23 15:25:49 Doctor Unassigned, No [facility] [place] VACCINE,0.5ML,IM Name [facility] ([facility] Plan of Care Planned Activity Planned Date Details Comments Source Future Scheduled Test 1955 00:00:00 COVID-19 Vaccination MD Esquivel (1) [code = COVID-19 Vaccination (1)] Encounters Start End Encounter Admission Attending Care Care Encounter Source Date/Time Date/Time Type Type Clinicians Facility Department ID 2021-07-04 Outpatient JOSE LUIS [facility] [id number] MD 10:47:11 [facility] 2021-08-25 2021-08-25 Outpatient EBENEZER [facility] [id number] 00:00:00 00:00:00 ASHRITH 959 [address] 2021-08-25 2021-08-25 Outpatient PAUL [facility] [id number] [place] 00:00:00 00:00:00 [place] [address] 2021-07-04 2021-07-04 Office Jose Luis [facility] 4 [id number] MD 09:08:43 10:47:19 Visit Benjamin [id number] [facility] [id number] 2021-06-23 2021-06-23 Outpatient Zev QUINTANILLA [facility] [id number] Univers 10:40:00 10:40:00 RIGOBERTO garner [facility] 2021-06-23 2021-06-23 Imm/Inj Nurse, Adc Pob Immunization [facility] [id number] Univers 10:23:00 10:23:14 Visit Rigoberto Quintanilla [id number] pascual [facility] [id number] [facility] suzanne Short [id number] Sd dical [address] 2021-05-13 2021-05-13 Outpatient MAGNUS RUFF [facility] [id number] [place] 00:00:00 00:00:[address] 2021-04-03 2021-04-03 Outpatient NOEMIFORMERLY [facility] [id number] [place] 00:00:00 00:00:00 MOHJH 798 Meth[address] chas 2021-03-27 2021-03-27 Outpatient NOEMIFORMERLY [facility] [id number] [place] 00:00:00 00:00:00 MOHAMMAD 820 [address] 2021-03-07 2021-03-07 Office ALDO Amaya [facility] 4 [id number] MD 09:32:28 10:24:45 Visit Benjamin [id number] He alth [id number] 2021-03-07 2021-03-07 Office ALDO Amaya [facility] 4 [id number] 09:32:28 10:24:45 Visit Benjamin [id number] 2021-03-04 2021-03-04 Outpatient EBENEZER, [facility] [id number] [place] 00:00:00 00:00:00 VAIBHAV 858 Method i 2021-02-28 2021-02-28 Outpatient JUANZAI, [facility] [id number] [place] 00:00:00 00:00:00 RAYAN [address] i 2021-02-20 2021-02-20 Outpatient ROCK, [facility] [id number] [place] 00:00:00 00:00:00 MAHWAAPRIL 319 Method i 2021-02-20 2021-02-20 Outpatient NAKAWAH, [facility] [id number] [place] 00:00:00 00:00:00 MOHAMMAD 779 Metho di 2021-02-20 2021-02-20 Outpatient ROCK, [facility] [id number] [place] 00:00:00 00:00:00 DEDRA 916 Method i 2021-02-20 2021-02-20 Outpatient ROCK, [facility] [id number] [place] 00:00:00 00:00:00 MAHTJ 700 [address] i 2021-02-20 2021-02-20 Outpatient BHIMARAJ, [facility] [id number] [place] 00:00:00 00:00:00 [place] 274 Method i 2021-02-20 2021-02-20 Outpatient ROCK, [facility] [id number] [place] 00:00:00 00:00:00 MAHWASH [address] 2021-02-20 2021-02-20 Outpatient ROCK, [facility] [id number] [place] 00:00:00 00:00:00 MAHWASH [address] 2021-02-19 2021-02-19 Outpatient NAKESTELA, [facility] [id number] [place] 00:00:00 00:00:00 MOHAM[address]AD [address] 2020-10-31 2020-10-31 Outpatient [facility] [id number] [address] [place] 00:00:00 00:00:[address] 2020-10-03 2020-10-03 Outpatient NOEMI, [facility] [id number] [place] 00:00:00 00:00:00 MOHAMMAD [address] 2020-10-03 2020-10-03 Outpatient TWIN, [facility] [id number] [place] 00:00:00 00:00:00 RAKAN [address] 2020-09-06 2020-09-06 Outpatient TAMANNA, [facility] [id number] [place] 00:00:00 00:00:00 FAMILIA [address] 2020-08-07 2020-08-07 Orders Doctor TITI [id number] 00:00:00 00:00:00 Only Unassigned, ZEESHAN 350.1.13.10 [place] [facility] [id number] [id number] [id number] 2020-07-18 2020-07-18 [facility] [id number] [place] 00:00:00 00:00:00 MOHAMMAD [address] 2020-07-18 2020-07-18 Outpatient [facility] [id number] 145 [place] 00:00:00 00:00:[address] 2020-07-18 2020-07-18 [facility] [id number] [place] 00:00:00 00:00:00 MOHAMMAD [address] 2020-07-09 2020-07-09 Outpatient [facility] [id number] [place] 00:00:00 00:00:00 [place] [address] 2020-07-09 2020-07-09 Outpatient BHIMARAJ, [facility] [id number] [place] 00:00:00 00:00:00 [place] [address] 2020-05-30 2020-05-30 Outpatient NAKAWAH, [facility] [id number] [place] 00:00:00 00:00:00 MOHAMMAD [address] 2020-05-13 2020-05-13 Outpatient BHDANNYRAJ, [facility] [id number] [place] 00:00:00 00:00:00 [place] [address] 2020-05-07 2020-05-07 Outpatient SADHU, [facility] [id number] 819 [place] 00:00:00 00:00:00 SANTI [address] 2020-02-28 2020-02-28 Outpatient GEOVANNI, [facility] [id number] [place] 00:00:00 00:00:00 YAZ [address] 2020-02-26 2020-02-26 Outpatient LACEY, [facility] [id number] [place] 00:00:00 00:00:00 MOHAMMAD [address] 2020-02-21 2020-02-21 Outpatient GEOVANNI, [facility] [id number] [place] 00:00:00 00:00:00 YAZ [address] 2020-02-08 2020-02-08 Outpatient GEOVANNI, [facility] [id number] [place] 00:00:00 00:00:00 YAZ [address] 2019-12-06 2019-12-06 Outpatient AHMAD, [facility] [id number] [place] 00:00:00 00:00:00 PORTILLO [address] 2019-11-07 2019-11-07 Outpatient EBENEZER, [facility] [id number] 900 [place] 00:00:00 00:00:00 ASHRITH [address] 2019-11-07 2019-11-07 Outpatient EBENEZER, [facility] [id number] [place] 00:00:00 00:00:00 ASHRITH [address] 2019-11-02 2019-11-02 Outpatient EBENEZER, [facility] [id number] [place] 00:00:00 00:00:00 ASHRITH [address] 2019-11-02 2019-11-02 Outpatient EBENEZER, [facility] [id number] [place] 00:00:00 00:00:00 ASHRITH 621 [address] 2019-11-02 2019-11-02 Outpatient [facility] [id number] [place] 00:00:00 00:00:00 ASHRITH 598 [facility] 2019-11-02 2019-11-02 Outpatient [facility] [id number] [place] 00:00:00 00:00:00 ASHRITH 830 [address] i 2019-10-24 2019-10-24 [facility] Radiology [facility] 1.2.840.114 [id number] 11:09:00 23:59:00 Encounter Anderson 350.1.13.10 [place] 4.2.7.2.686 [place] [id number] 2019-10-24 2019-10-24 Orders Doctor TITI 1.2.840.114 [id number] 00:00:00 00:00:00 Only Unassigned, ZEESHAN 350.1.13.10 [place] [facility] 4.2.7.2.686 [id number] 2018-04-08 2018-04-19 Inpatient [facility] [id number] [facility] 04:09:00 00:45:00 [facility] 67 l [facility] 2016-08-06 2016-08-11 Outpatient YOSSI AMAYA DANIELLA [facility] [id number] 08:47:07 15:20:31 BENJAMIN huggins Results Test Description Test Time Test Comments Results Result Sour e Comments [place], BLENDING COORDINATOR IN 2018-10-21 Reason for FINAL REPORT OR/30 MINUTE 14:21:00 exam:->bilateral PATIENT ID: INCREMENTS C3,C4,C5 medical [id number] branch Fluoroscopy 3 views raiofrequency intraoperative ablation 10/21/2018 1:28 PM CLINICAL HISTORY: Instrument localization COMPARISON: None available IMPRESSION: Please correlate imaging report findings with the procedure note prepared by Dr. Taylor, as an intra-procedure imaging consultation was not requested. Reported fluoroscopy time: 44.5 seconds. Signed: Alexi Grady Verified Date/Time: 10/21/2018 14:21:41 Reading Location: [facility] Radiology Reading Room -GLUCOSE METER 2018-10-21 14:02:00 Test Item Value Reference Range Interpretation Comme nts POC-GLUCOSE METER (JESSENIA) (test 160 mg/dL 70-110 H TESTED AT [facility] [address] code = 1538) [facility] 7703 0 POCT-GLUCOSE [id number] 12:28:00 Test Item Value Reference Range Interpretation Comments POC-GLUCOSE METER 158 mg/dL 70-110 H TESTED AT [place] [address] ([facility]) (test code = MIGDALIA [employer] [facility] 1538) [address] [place], BLENDING COORDINATOR IN OR/30 MINUTE JPELDMYBXK8403-01-45 13:42:00Reason for exam:- >bilateral C3-C5 Medial Branch BlockFINAL REPORT Fluoroscopy 4 views intraoperative 09/16/2018 1:37 PM CLINICAL HISTORY: Instrument localization COMPARISON: None available IMPRESSION: Please correlate imaging report findings with the procedure note prepared by Dr. Taylor, as an intra-procedure imaging consultation was not requested. Reported fluoroscopy time: 35.8 seconds. Signed: Alexi Grady Verified Date/Time: 09/16/2018 13:42:50 Reading Location: [facility] Radiology Reading Room POCT- GLUCOSE [id number] 12:18:00 Test Item Value Reference Range Interpretation Comments POC-GLUCOSE METER 154 mg/dL 70-110 H TESTED AT [place] [address] ([facility]) (test code = MIGDALIA Brothers [facility] 1538) [address] DMRZEKXHSL5890-33-26 10:58:003.3[facility]ann[facility] MTIDU3032-12-97 05:30:00 1.61[facility]annCHEM TKTWS1353-40-31 05:30:0042[facility]annCHEM PANEL 2018-04-17 05:30:0053[facility]annCHEM LWECS3188-66-07 05:30:37838Uwghhfxu HermannCHEM VZTZA5722-96-94 05:30:70827Ayqtbpcl HermannCHEM JIQFE6710-13-84 05:30:004.9[facility]annCHEM HXDPG2962-24-01 05:30:0099[facility]annCHE[facility] LEEEV9658-19-78 05:30:0025[facility]annCHE[facility] BDBKN2033-50-13 05:30:008.6 [facility] OYGHT7034-69-16 05:30:0014.9[facility] HermannTOXICOLOGY 2018-04-16 13:46:00<2.0[facility]annCHEM WCIHV2149-45-54 05:38:10923 [facility] VKGAY1867-28-03 05:38:001.65[facility]annCHEM PANEL 2018-04-16 05:38:0051[facility]annCHEM LTMKP3935-29-91 05:38:86117Tvscaptf HermannCHEM MJFEK8311-26-77 05:38:42561Qunsziwa HermannCHEM OCQAX4198-04-84 05:38:0027[facility]annCHEM VCPEF9513-95-37 05:38:005.2[facility]annCHE[facility] YQZIK2516-32-98 05:38:0040[facility]annCHEM JJSOP6086-66-37 05:38:0014.2 [facility]annCHE[facility] TZGCR5226-89-29 05:38:008.4[facility]annCHEM PANEL 2018-04-15 05:13:0037[facility]annCHEM MMEUX2442-73-94 05:13:005.6[facility]annCHE[facility] CGRNY8136-30-26 05:13:0099[facility]annCHEM DLDUK2789-82-26 05:13:0029[facility]annCHE[facility] VTFKB0735-24-76 05:13:008.9[facility]annCHEM WMXWA9554-11-37 05:13:0014.6[facility]annCHEM HAALO1999-12-27 05:13:0056 [facility]annCHE[facility] HFIIS1933-29-45 05:13:21552Ejmteaxj HermannCHEM PANEL 2018-04-15 05:13:55227Vtvzufug HermannCHEM YMKMS2978-53-14 05:13:001.77[facility] HehquetGYWGKIVLBK3637-11-72 05:43:003.22[facility] KvuahtqMTBPQBDAPW0579-48-68 05:43:0010.5[facility]annCHEM PHAMM6670-83-17 05:43:004.1[facility]annCHEM QTBUQ4684-64-09 05:43:002.8[facility] MpfxynwHOELNVYSAP0776-34-59 05:43:0087.0 [facility] AnmzvagABCPRBKEPO8362-63-35 05:43:006.6[facility] HermannHEMATOLOGY 2018-04-13 05:43:007.0[facility] FcrejprIHLNYXRTSU4948-89-13 05:43:006.0[facility] ZgikfebTDFVYDIYIB4627-44-50 05:43:000.6[facility] DofftwlAVJFCHAXNH8522-50-17 05:43:000.4[facility] LikdkssOAPVSFHLEO1628-64-99 05:43:00 Test Item Value Reference Range Interpretation Comments MCH (test code = MCH) 32.6 pg 27.0-31.0 [facility] IbooqhlSVJKJAGVSE8773-92-89 05:43:0033.9[facility] HermannHEMATOLOGY 2018-04-13 05:43:0015.3[facility] BkmzbsaVPYPKMTZSP7741-08-14 05:43:44430Manvktpv PnzsaehUOJHULNKOQ0629-39-96 05:43:009.emorial CddyqwlDLERYYVFSI5460-50-89 05:43:007.6[facility] DptaagbYKHMXPDJVE1868-48-29 05:43:0031.0[facility] Sae EFMISVCEWH0904-04-93 05:43:0096.1[facility] HermannCHEM RWMWH8324-99-82 05:57:00 3.6[facility]annCHEM TMNOR8370-20-23 05:57:002.4[facility] HermannHEMATOLOGY 2018-04-12 05:57:0084.1[facility] BifhlvgGCMLPZDWLW0023-79-73 05:57:000.9[facility] MftjztnWBYDDZXLKF9052-65-02 05:57:000.2[facility] AakmbmkCUDGGWPLWT3815-85-00 05:57:000.4[facility] XrxvormCDAUAJAURX6046-07-14 05:57:009.2[facility]ae VEMGYQTTKL5666-68-02 05:57:006.7[facility] WsasdjpRULAUYGKOP5068-71-01 05:57:008.6 [facility] ZujkpqaSYOLKQOKYB4843-74-56 05:57:000.7[facility] HermannHEMATOLOGY 2018-04-12 05:57:48255Jeuuwhax JpzawmlRQRICONPMR3032-66-14 05:57:0015.3[facility] MwddimgJYLOOORSYB9556-79-17 05:57:0096.8[facility] ZktuhbeIEFWSWBRUV5694-51-60 05:57:00 Test Item Value Reference Range Interpretation Comments MCH (test code = MCH) 31.8 pg 27.0-31.0 [facility] HmakmzyVAHWTQZBIC9021-91-41 05:57:0010.6[facility] HermannHEMATOLOGY 2018-04-12 05:57:003.32[facility] XfxobwuGQCOIRBRYS7632-33-39 05:57:0032.8[facility] HfqzwfwKBMNCHDVQF7522-14-50 05:57:0032.2[facility] ByexspuBWSQGOGZDO2193-57-95 05:57:009.7[facility] LndrbapVQWUNEDGSU3913-68-44 05:57:0010.9[facility] RUOYNSTHVV8849-26-34 12:36:004.3[facility] WduhdsyFYSEWQFUTG3255-18-26 05:53:007.8 [facility] YmbtypfMACMAHRYOO9843-05-54 05:53:007.6[facility] HermannHEMATOLOGY 2018-04-11 05:53:000.6[facility] FdnjjawDDGNQPRTEN3053-65-71 05:53:009.1[facility] KzhyijmZQBCNERUWK2787-85-40 05:53:000.2[facility] AqelgodPHKGMUQCAE8537-93-28 05:53:000.8[facility] QbchxdxSJUEFKMNZO4223-77-26 05:53:000.8[facility] HEUVXNXNCJ6175-65-36 05:53:000.1[facility] NkfivyuCWSOSWDGHI6842-97-32 05:53:00 83.8[facility] KcrcmvnTGAEXCBHES2909-96-03 05:53:003.33[facility] HermannHEMATOLOGY 2018-04-11 05:53:0010.8[facility] XxmncjbYZCGQPELON0898-64-95 05:53:0015.2[facility] HnzmkkzUYXZZKSFNN4981-58-60 05:53:60885Lkvskltd XcoldutVUQCGMMQOJ5463-60-92 05:53:009.6[facility] BjsovhqAKIAKHVBSP9729-01-67 05:53:0033.5[facility] XTZSLTAWBU8834-44-50 05:53:00 Test Item Value Reference Range Interpretation Comments MCH (test code = MCH) 32.3 pg 27.0-31.0 [facility] BbgyhktPWLWIGQDFA5055-97-74 05:53:0032.1[facility] HermannHEMATOLOGY 2018-04-11 05:53:0096.2[facility] PnwgploHVSRPGXEBR4909-83-12 05:53:0010.8[facility] HermannGENTAMICIN:SUSC:PT:ISOLATE:ORDQN:TAK2725-15-17 19:19:00Escherichia coli [facility]DR[facility] PSFXCB7637-83-17 18:42:00Negative *NA*(04/09/18 1:42 PM) [facility] ZGMZEK0607-25-34 18:42:00Negative *NA*(04/09/18 1:42 PM) [facility] HSZTCA8457-12-61 18:42:00Negative *NA*(04/09/18 1:42 PM) [facility] NFAISA0768-47-16 18:42:00Positive *ABN*(04/09/18 1:42 PM) [facility] GGQUAU4678-04-94 18:42:00See Note (04/09/18 1:42 PM)[facility] OXUUTH0549-72-55 18:42:00Negative *NA*(04/09/18 1:42 PM)[facility] MEYLGZ2478-19-44 18:42:00Negative *NA*(04/09/18 1:42 PM)[facility] AEFFBR1941-48-34 18:42:00Negative *NA*(04/09/18 1:42 PM)[facility] PEHTD4698-84-78 18:42:00Large *ABN*(04/09/18 1:42 PM)[facility] WFRID7844-40-96 18:42:00Negative (04/09/18 1:42 PM)[facility] IDDBC5749-22-67 18:42:00Large *ABN*(04/09/18 1:42 PM)[facility] TSVHY1553-96-75 18:42:00>182[facility] STOOL 2018-04-09 18:42:04266Uakpupcl HermannURINE AND KAOOM9291-78-82 18:42:00Negative *NA*(04/09/18 1:42 PM)[facility] TOIRE0632-31-63 18:42:00Yellow *NA*(04/09/18 1:42 PM)[facility] ZIYPE2887-35-74 18:42:00Marked *ABN*(04/09/18 1:42 PM)[facility] EPPHT8649-54-91 18:42:00 Test Item Value Reference Range Interpretation Comments UA Spec Grav (test code = UA Spec 1.013 1 Grav) [facility] FZEAH5000-05-79 18:42:00 Test Item Value Reference Range Interpretation Comments UA pH (test code = UA pH) 5.5 1 5.0-8.0 [facility] TozgpzxBHCBIXYEMI1324-40-81 10:37:000.2[facility] HermannHEMATOLOGY 2018-04-09 10:37:000.8[facility] RmecadnEDIFOZZECZ6350-04-83 10:37:000.1[facility] AND TEWBI4181-42-37 05:20:006-10 (04/08/18 12:20 AM)[facility] URINE AND UXLDH3001-16-35 05:20:00Yellow *NA*(04/08/18 12:20 AM)[facility]INE AND HJVBE4554-24-99 05:20:00Negative (04/08/18 12:20 AM)[facility] URINE AND HRQDN4741-64-36 05:20:00 Test Item Value Reference Range Interpretation Comments UA pH (test code = UA pH) 5.5 1 5.0-8.0 [facility] OOMHU7419-62-07 05:20:00 Test Item Value Reference Range Interpretation Comments UA Spec Grav (test code = UA Spec 1.025 1 Grav) [facility] JVXCP2151-55-61 05:20:00Slight Cloudy (04/08/18 12:20 AM)[facility] SFDCN8600-02-18 05:20:00Negative (04/08/18 12:20 AM) [facility] QVGLS1470-66-74 05:20:000.2[facility] TONZT4005-29-94 05:20:00Large *ABN*(04/08/18 12:20 AM)[facility] DRBPW1478-29-09 05:20:00Negative *NA*(04/08/18 12:20 AM)[facility] TWVDW9751-37-34 05:20:00Negative *NA*(04/08/18 12:20 AM)[facility] TQLAS8162-55-71 05:20:00Negative (04/08/18 12:20 AM)[facility]annBLOOD BANK HJEEDUX4671-09-80 04:50:00Negative (04/07/18 11:50 PM)[facility]annCHEM PANEL 2018-04-08 04:41:480.8[facility]annCHEM BLNUG4824-80-24 04:41:487.0[facility]annCHEM EGFLG3580-80-76 04:41:483.7[facility]annCHE[facility] IGFVL9284-42-24 04:41:4846[facility]annCHEM JRVGK0141-37-07 04:41:4860[facility]annCHEM OUFAJ6967-61-04 04:41:4865[facility]CHE[facility] ERFBU6030-74-17 04:41:480.7 [facility]CHE[facility] DTBDW7031-58-15 04:41:480.6[facility]annCHEM PANEL 2018-04-08 04:41:480.1[facility]CHE[facility] YJSTD1506-17-79 04:41:48 Test Item Value Reference Range Interpretation Comments A/G Ratio (test code = A/G Ratio) 1.1 1 0.7-1.6 [facility]2018-07-13 04:[facility] 04:41:48 Test Item Value Reference Range Interpretation Comments PTT (test code = PTT) 29.3 s 22.9-35.8 [facility]RtbktijXFPOACXIYT4817-33-64 04:41:48 Test Item Value Reference Range Interpretation Comments INR (test code = INR) 1.19 1 0.85-1.17 [facility] HospitalVcsxefkKOHVMGEVNK0052-92-33 04:41:48 Test Item Value Reference Range Interpretation Comments PT (test code = PT) 15.2 s 12.0-14.7 [facility] HospitalRsjocrzRFJAFHBJBJ4070-23-40 04:41:481.1[facility] 2018-04-08 04:41:48 Test Item Value Reference Range Interpretation Comments ACT (TEG) Rapid (test code = ACT (TEG) 97 s 86-118 Rapid) [facility] HospitalDrclzxrFVZPXEMYIR2613-43-29 04:41:488.1[facility] 2018-04-08 04:41:48 Test Item Value Reference Range Interpretation Comments Split Point Rapid (test code = Split 0.4 min Point Rapid) [facility] HospitalLogrhmsXOEUJMYBZR2937-28-56 04:41:48 Test Item Value Reference Range Interpretation Comments R-time Rapid (test code = R-time 0.5 min 0.4-0.7 Rapid) [facility] HospitalGeidsjjLGSXBOGHWZ5433-06-08 04:41:48 Test Item Value Reference Range Interpretation Comments Angle Rapid (test code = Angle 76 degrees 64-80 Rapid) [facility] HospitalHrpulhnOPMWQUDKSL6824-12-18 04:41:48 Test Item Value Reference Range Interpretation Comments Max Amplitude Rapid (test code = Max 62 mm 52-71 Amplitude Rapid) [facility] HospitalPuzxhavXHZUSCXWPL1593-31-29 04:41:48 Test Item Value Reference Range Interpretation Comments K-time Rapid (test code = K-time 1.2 min 0.6-2.3 Rapid) [facility]nVKNWCNZDQL7064-52-49 04:41:48<0.003[facility] HermannTOXICOLOGY 2018-04-08 04:41:48<3[facility]
[2021-09-05] MEDS ORDERED: NA CHLORIDE 0.9% 0 ML ONE ×2 (00:58)
[2021-09-05] MEDS ORDERED: ALBUTEROL 2.5 MG/3 ML NEB SOL ONE (01:16)
[2021-09-05] MEDS ORDERED: IPRATROPIUM BROM 0.5MG/2.5ML ONE (01:16)
[2021-09-05 01:28] LABS: Absolute Lymphocytes (CBC) 0.8 K/uL (0.7-4.9); Basophils % 0.4 % (0-1.3); Hematocrit 37.7 % (39.6-49.0); Lymphocytes % 6.6 % (15.3-44.8); MPV 9.2 fL (7.6-11.3); RBC Red Blood Cell Count 3.86 M/uL (4.33-5.43)
[2021-09-05] MEDS ORDERED: CEFTRIAXONE 1000 MG/VIAL ONE (01:37)
[2021-09-05] MEDS ORDERED: AZITHROMYCIN 500 MG INJ IVPB ONE (01:37)
[2021-09-05] MEDS ORDERED: NA CHLORIDE 0.9% 250 ML ONE (01:37)
[2021-09-05] MEDS ORDERED: NA CHLORIDE 0.9% 100 ML ONE (01:37)
[2021-09-05 01:38] LABS: Protime INR 1.22
[2021-09-05 01:48] LABS: ALT/SGPT 14 U/L (12-78); AST/SGOT 9 U/L (15-37); Albumin 2.8 g/dL (3.4-5.0); Alkaline Phosphatase 80 U/L (45-117); Amylase 31 U/L (25-115); BUN Blood Urea Nitrogen 34 mg/dL (7-18); Bicarbonate 28 mmol/L (21-32); Bilirubin Direct 0.3 mg/dL (0-0.2); Bilirubin Total 0.9 mg/dL (0.2-1.0); CKMB Creatine Kinase MB < 1.0 ng/mL (1.0-3.6); Creatine Phosphokinase 83 U/L (39-308); Glucose Level 209 mg/dL (74-106); Lipase 67 U/L (73-393); Potassium 4.4 mmol/L (3.5-5.1); Protein, Total 6.9 g/dL (6.4-8.2); Sodium Level 139 mmol/L (136-145); Troponin (Emerg Dept Use Only) < 0.02 ng/mL (0.0-0.045)
[2021-09-05 02:03] LABS: SARS-COV-2 RT PCR NEGATIVE (NEGATIVE)
--- NOTE | 2021-09-05 02:21 | EDPHYS ---
Physician Documentation [facility] Name: Octavio Bueno Age: 75 yrs Sex: Male : 1945 Arrival Date: 09/05/2021 Time: 00:36 Bed 4 Private MD: ED Physician Mathew Melvin HPI: 09/05 01:00 This 75 yrs old Male presents to ER via Ambulatory with complaints of Fever, Cough, Low cp O2. 01:00 The patient reports fever, that was measured at 103.4 degrees Fahrenheit. Onset: The cp symptoms/episode began/occurred yesterday. Associated signs and symptoms: Pertinent positives: chills, cough, shortness of breath, Pertinent negatives: abdominal pain, chest pain, diarrhea, headache, swelling, vomiting. Severity of symptoms: in the emergency department the symptoms are unchanged despite home interventions. Historical: - Allergies: 00:57 Rapamune; as6 - Home Meds: 00:57 allopurinol 100 mg Oral tab 1 tab 2 times per day [Active]; alprazolam 0.5 mg Oral tab as6 1 tab daily [Active]; amlodipine 5 mg tab 1 tab once daily [Active]; aspirin 81 mg Oral TbEC 1 tab once daily [Active]; ferrous sulfate 325 mg (65 mg iron) Oral tab daily [Active]; finasteride 5 mg Oral tab 1 tab twice a day [Active]; folic acid 1 mg Oral tab 1 tab once daily [Active]; gabapentin 300 mg Oral cap 1 cap 3 times per day [Active]; isosorbide mononitrate 30 mg Oral Tb24 1 tab once daily [Active]; labetalol 100 mg Oral tab 1 tab 2 times per day [Active]; magnesium oxide 400 mg Oral tab twice a day [Active]; metolazone 2.5 mg Oral tab 1 tab as needed [Active]; Nexium 20 mg oral cpDR 1 cap once daily [Active]; potassium chloride 10 mEq Oral TbER 1 cap once daily [Active]; pravastatin 80 mg Oral tab 1 tab once daily [Active]; sertraline 50 mg Oral tab 1 tab once daily [Active]; Singulair 10 mg Oral tab 1 tab as needed [Active]; tamsulosin 0.4 mg Oral cp24 1 cap once daily [Active]; torsemide 40 mg Oral tab 1 tab once daily [Active]; Novolin 70/30 [place] Sub-Q 70-30 unit/mL twice a day [Active]; prednisone 5 mg Oral tab 1 tab once daily [Active]; - PMHx: 00:57 Chronic kidney disease stage V; Diabetes - IDDM; Gout; Hyperlipidemia; Hypertension; as6 Migraines r/t head injury; Myocardial infarction; - PSHx: 00:57 hernia; Cholecystectomy; heart transplant; as6 - Immunization history:: Client reports receiving the 2nd dose of the Covid vaccine, Last tetanus immunization: < 5 years ago Pneumococcal vaccine status is unknown, Flu vaccine is not up to date. - Social history:: Smoking status: Patient/guardian denies using tobacco, but has a distant history of tobacco abuse. ROS: 01:02 Constitutional: Positive for chills, Negative for fever. cp 01:02 Eyes: Negative for injury, pain, redness, and discharge. cp 01:02 Cardiovascular: Negative for chest pain, edema, palpitations. 01:02 Respiratory: Positive for cough, shortness of breath, at rest. 01:02 Abdomen/GI: Negative for abdominal pain, nausea, vomiting, and diarrhea. 01:02 Neuro: Negative for altered mental status, dizziness, headache, weakness. cp 01:02 All other systems are negative. cp Exam: 01:02 ECG was reviewed by the Attending Physician. cp 01:05 Constitutional: The patient appears in no acute distress, alert, awake, cp non-diaphoretic, non-toxic, well developed, well nourished. 01:05 Head/Face: Normocephalic, atraumatic. cp 01:05 Eyes: Periorbital structures: appear normal, Conjunctiva: normal, no exudate, no injection, Sclera: no appreciated abnormality, Lids and lashes: appear normal, bilaterally. 01:05 ENT: External ear(s): are unremarkable, Nose: is normal, Mouth: Lips: moist, Oral mucosa: pink and intact, moist, Posterior pharynx: Airway: no evidence of obstruction, patent. 01:05 Neck: ROM/movement: is normal, is supple, without pain, no range of motions limitations, no meningismus. 01:05 Chest/axilla: Inspection: normal. 01:05 Cardiovascular: Rate: normal, Rhythm: regular, Edema: is not appreciated, JVD: is not appreciated. 01:05 Respiratory: the patient does not display signs of respiratory distress, Respirations: labored breathing, that is mild, shallow respirations, that is mild, Breath sounds: decreased breath sounds, that are moderate, throughout, stridor, is not appreciated, wheezing: is not appreciated. 01:05 Abdomen/GI: Inspection: abdomen appears normal, Bowel sounds: active, all quadrants, Palpation: abdomen is soft and non-tender, in all quadrants, involuntary guarding, is not appreciated. 01:05 Back: pain, is absent, ROM is normal. 01:05 Skin: cellulitis, is not appreciated, no rash present. 01:05 Neuro: Orientation: to person, place \\T\\ time. Mentation: is normal, Motor: moves all fours, strength is normal, Sensation: is normal. Vital Signs: 00:51 BP 120 / 75; Pulse 96; Resp 22 S; Temp 98.9(O); Pulse Ox 88% on R/A; Weight 82.55 kg as6 (R); Height 5 ft. 9 in. (175.26 cm) (R); Pain 0/10; 01:45 BP 109 / 65; Pulse 77; Resp 14; Pulse Ox 98% on R/A; Pain 0/10; tw5 00:51 Body Mass Index 26.88 (82.55 kg, 175.26 cm) as6 MDM: 01:00 Differential diagnosis: pneumonia respiratory failure, sepsis. cp 01:12 Patient medically screened. cp 02:15 Data reviewed: vital signs, nurses notes, lab test result(s), EKG, radiologic studies, cp plain films. 02:15 Test interpretation: by ED physician or midlevel provider: ECG, plain radiologic cp studies. Counseling: I had a detailed discussion with the patient and/or guardian regarding: the historical points, exam findings, and any diagnostic results supporting the discharge/admit diagnosis, lab results, radiology results. 02:35 ED course: VSS. Patient accepted to [facility] by DR Braun without cp consultation. 09/05 00:54 Order name: Amylase, Serum bb 09/05 00:54 Order name: Basic Metabolic Panel bb 09/05 00:54 Order name: Blood Culture Adult (2) bb 09/05 00:54 Order name: CBC with Diff bb 09/05 00:54 Order name: CPK; Complete Time: 02:09 09/05 00:54 Order name: Ckmb; Complete Time: 02: 09/05 00:54 Order name: LFT's; Complete Time: 02: 09/05 02:10 Interpretation: Normal except: BILID 0.3; ALB 2.8; GLOB 4.1; A/G 0.7; AST 9. 09/05 00:54 Order name: Lactate; Complete Time: 02: 09/05 00:54 Order name: Lipase; Complete Time: 02: 09/05 00:54 Order name: Procalcitonin; Complete Time: 02: 09/05 02:12 Interpretation: Abnormal: Procalcitonin 0.47. 09/05 00:54 Order name: Protime (+inr); Complete Time: 02: 09/05 00:54 Order name: Ptt, Activated; Complete Time: 02: 09/05 00:54 Order name: Troponin (emerg Dept Use Only); Complete Time: 02: 09/05 00:54 Order name: Chest Single View XRAY 09/05 00:54 Order name: Cardiac monitoring; Complete Time: 01: 09/05 00:54 Order name: EKG - Nurse/Tech; Complete Time: 01: 09/05 00:55 Order name: Amylase; Complete Time: 02:09 [facility] 09/05 00:55 Order name: Basic Metabolic Panel; Complete Time: 02:09 EDOK 09/05 02:11 Interpretation: Normal except: GLUC 209; BUN 34; CRE 2.25; GFR 28. 09/05 00:55 Order name: Blood Culture EDOK 09/05 00:55 Order name: CBC with Automated Diff; Complete Time: 01:34 EDOK 09/05 01:34 Interpretation: Normal except: WBC 11.60; RBC 3.86; HGB 12.2; HCT 37.7; PLT 121; WILIAN% cp 85.1; LYM% 6.6; NEUT A 9.9. 09/05 00:55 Order name: COVID-19/FLU A+B (Document "Date of Onset" if Symptomatic); Complete Time: bb 09/05 02:12 Interpretation: Reviewed. cp 09/05 01:00 Order name: Strep; Complete Time: 02:42 cp 12 02:43 Order name: Throat Culture EDMS 09/05 00:54 Order name: IV Saline Lock - Large Bore; Complete Time: 01:08 bb 09/05 00:54 Order name: Labs collected and sent; Complete Time: 01:13 bb 12 00:54 Order name: O2 Per Protocol; Complete Time: 01:08 bb 12 00:54 Order name: O2 Sat Monitoring; Complete Time: : bb EC:02 Rate is 85 beats/min. Rhythm is regular. AR interval is normal. QRS interval is normal. cp QT interval is normal. T waves are Inverted in leads aVL, aVR. Interpreted by me. Reviewed by me. Administered Medications: 01:00 Not Given (Physician Discretion): NS 0.9% (30 ml/kg) 30 ml/kg IV at bolus once; Sepsis cp Protocol 01:20 Drug: Albuterol - atroVENT (ipratropium) (3:1) (2.5 mg - 0.5 mg) 3 ml Route: Nebulizer; tw5 01:46 Follow up: Response: No adverse reaction tw5 02:23 Follow up: Response: No adverse reaction as6 01:46 Drug: Rocephin - (cefTRIAXone) 2 grams Route: IVPB; Infused Over: 30 mins; Site: right tw5 wrist; 02:23 Follow up: Response: No adverse reaction; IV Status: Completed infusion; IV Intake: [id number] 02:23 Drug: Zithromax (azithromycin) 500 mg Route: IVPB; Infused Over: 1 hrs; Site: right as6 wrist; 03:39 Follow up: Response: No adverse reaction; IV Status: Completed infusion tw5 Disposition: 05:39 Co-signature as Attending Physician, Mathew Melvin MD I agree with the assessment and rn plan of care. Attestation: The patient's history, exam findings, diagnostics, and a summary of any interventions or procedures was reviewed in detail with Steven MOORE. Disposition Summary: 09/05/21 02:19 Transfer Ordered Transfer Location: [facility] cp Reason: Higher level of care cp Condition: Stable cp Problem: new cp Symptoms: have improved cp Accepting Physician: DR Geraldine Braun(09/05/21 04:12) as6 Diagnosis - Pneumonia due to other specified infectious organisms cp - Hypoxemia cp Forms: - Medication Reconciliation Form cp - SBAR form cp Signatures: Dispatcher [employer] EDMS Antonieta Mcgovern RN RN bb Nieto, Roman, MD MD rn Attema, Lee, SR. MEDIA MANAGER-C SR. MEDIA MANAGER-Cla1 Steven Hernandez PA PA cp Wood, Tiffany tw5 Santiago Sanchez RN RN as6 Corrections: (The following items were deleted from the chart) 01:22 01:01 Influenza Screen (A \\T\\ B)+BA.LAB.BRZ ordered. EDMS EDMS 01:46 00:54 Accucheck ordered. glen tw5 03:04 02:19 Doctor cp cp 04:12 03:04 DR Geraldine Braun cp as6
--- NOTE | 2021-09-05 02:21 | ER ---
Nurse's Notes [facility] Name: Octavio Bueno Age: 75 yrs Sex: Male : 1945 Arrival Date: 09/05/2021 Time: 00:36 Bed 4 Private MD: Diagnosis: Pneumonia due to other specified infectious organisms;Hypoxemia Presentation: 09/05 00:51 Chief complaint: Spouse and/or significant other states: pt has had cough, fever, sob. as6 Coronavirus screen: Vaccine status: Patient reports receiving the 2nd dose of the covid vaccine. Client presents with at least one sign or symptom that may indicate coronavirus-19. Standard/surgical mask placed on the client. Ebola Screen: No symptoms or risks identified at this time. Initial Sepsis Screen: Does the patient meet any 2 criteria? RR > 20 per min. Temp <36.0*C (96.8*F)) or > 38.3*C (100.9*F). Yes Does the patient have a suspected source of infection? Yes: Productive cough/pneumonia. Risk Assessment: Do you want to hurt yourself or someone else? Patient reports no desire to harm self or others. Onset of symptoms was September 04, 2021. 00:51 Method Of Arrival: Ambulatory as6 00:51 Acuity: YAHIR 3 as6 Historical: - Allergies: 00:57 Rapamune; as6 - Home Meds: 00:57 allopurinol 100 mg Oral tab 1 tab 2 times per day [Active]; alprazolam 0.5 mg Oral tab as6 1 tab daily [Active]; amlodipine 5 mg tab 1 tab once daily [Active]; aspirin 81 mg Oral TbEC 1 tab once daily [Active]; ferrous sulfate 325 mg (65 mg iron) Oral tab daily [Active]; finasteride 5 mg Oral tab 1 tab twice a day [Active]; folic acid 1 mg Oral tab 1 tab once daily [Active]; gabapentin 300 mg Oral cap 1 cap 3 times per day [Active]; isosorbide mononitrate 30 mg Oral Tb24 1 tab once daily [Active]; labetalol 100 mg Oral tab 1 tab 2 times per day [Active]; magnesium oxide 400 mg Oral tab twice a day [Active]; metolazone 2.5 mg Oral tab 1 tab as needed [Active]; Nexium 20 mg oral cpDR 1 cap once daily [Active]; potassium chloride 10 mEq Oral TbER 1 cap once daily [Active]; pravastatin 80 mg Oral tab 1 tab once daily [Active]; sertraline 50 mg Oral tab 1 tab once daily [Active]; Singulair 10 mg Oral tab 1 tab as needed [Active]; tamsulosin 0.4 mg Oral cp24 1 cap once daily [Active]; torsemide 40 mg Oral tab 1 tab once daily [Active]; Novolin 70/30 [place] Sub-Q 70-30 unit/mL twice a day [Active]; prednisone 5 mg Oral tab 1 tab once daily [Active]; - PMHx: 00:57 Chronic kidney disease stage V; Diabetes - IDDM; Gout; Hyperlipidemia; Hypertension; as6 Migraines r/t head injury; Myocardial infarction; - PSHx: 00:57 hernia; Cholecystectomy; heart transplant; as6 - Immunization history:: Client reports receiving the 2nd dose of the Covid vaccine, Last tetanus immunization: < 5 years ago Pneumococcal vaccine status is unknown, Flu vaccine is not up to date. - Social history:: Smoking status: Patient/guardian denies using tobacco, but has a distant history of tobacco abuse. Screenin:32 Abuse screen: Denies threats or abuse. Nutritional screening: No deficits noted. as6 Tuberculosis screening: No symptoms or risk factors identified. Fall Risk None identified. Assessment: 01:25 General: Appears in no apparent distress. uncomfortable, Behavior is calm, anxious. as6 Pain: Denies pain. Neuro: Level of Consciousness is awake, alert, obeys commands, Oriented to person, place, time, situation, Reports headache. Cardiovascular: Reports fatigue, shortness of breath. Respiratory: Reports shortness of breath on exertion cough that is productive, hacking, Airway is patent Trachea midline Respiratory effort is even, shallow, Respiratory pattern is regular, symmetrical, Breath sounds are diminished bilaterally. Derm: Skin is intact, is healthy with good turgor. 01:45 General: Reports " I am feeling fine". tw5 02:14 Reassessment: Patient appears in no apparent distress at this time. Respiratory: as6 Respiratory effort is even, unlabored, Respiratory pattern is regular, symmetrical. Vital Signs: 00:51 BP 120 / 75; Pulse 96; Resp 22 S; Temp 98.9(O); Pulse Ox 88% on R/A; Weight 82.55 kg as6 (R); Height 5 ft. 9 in. (175.26 cm) (R); Pain 0/10; 01:45 BP 109 / 65; Pulse 77; Resp 14; Pulse Ox 98% on R/A; Pain 0/10; tw5 00:51 Body Mass Index 26.88 (82.55 kg, 175.26 cm) as6 ED Course: 00:36 Patient arrived in ED. wm 00:44 Santiaog Sanchez, MELINDA is Primary Nurse. as6 00:51 Steven Hernandez PA is PHCP. cp 00:51 Mathew Melvin MD is Attending Physician. cp 00:56 Triage completed. as6 01:04 Chest Single View XRAY In Process Unspecified. EDMS 01:07 Arm band placed on. tw5 01:08 Inserted saline lock: 20 gauge in right wrist, using aseptic technique. Blood collected.tw5 01:10 Initial lab(s) drawn, by ak, sent to lab. COVID swab sent to lab. tw 01:15 Strep Sent. tw 01:15 COVID-19/FLU A+B (Document "Date of Onset" if Symptomatic) Sent. 01:17 CBC with Automated Diff Sent. 01:17 Blood Culture Sent. tw 01:18 Amylase Sent. tw 01:18 Basic Metabolic Panel Sent. tw 01:18 Amylase, Serum Sent. tw5 01:18 Basic Metabolic Panel Sent. tw5 01:18 Blood Culture Adult (2) Sent. tw 01:18 CBC with Diff Sent. tw 01:18 CPK Sent. tw 01:18 Ckmb Sent. tw 01:18 LFT's Sent. tw 01:18 Lactate Sent. tw 01:18 Lipase Sent. tw 01:18 Troponin (emerg Dept Use Only) Sent. tw 01:18 Ptt, Activated Sent. tw 01:18 Protime (+inr) Sent. tw 01:19 Procalcitonin Sent. tw5 01:32 Placed in gown. Bed in low position. Call light in reach. Side rails up X2. Adult w/ as6 patient. clerical adviser on. Pulse ox on. NIBP on. 01:46 Blood Culture Sent. tw 01:46 Amylase Sent. tw5 01:46 Basic Metabolic Panel Sent. tw5 02:[address] [facility]. cs9 03:39 No provider procedures requiring assistance completed. Patient transferred, IV remains tw5 in place. Administered Medications: 01:00 Not Given (Physician Discretion): NS 0.9% (30 ml/kg) 30 ml/kg IV at bolus once; Sepsis cp Protocol 01:20 Drug: Albuterol - atroVENT (ipratropium) (3:1) (2.5 mg - 0.5 mg) 3 ml Route: Nebulizer; tw5 01:46 Follow up: Response: No adverse reaction tw5 02:23 Follow up: Response: No adverse reaction as6 01:46 Drug: Rocephin - (cefTRIAXone) 2 grams Route: IVPB; Infused Over: 30 mins; Site: right tw5 wrist; 02:23 Follow up: Response: No adverse reaction; IV Status: Completed infusion; IV Intake: [id number] 02:23 Drug: Zithromax (azithromycin) 500 mg Route: IVPB; Infused Over: 1 hrs; Site: right as6 wrist; 03:39 Follow up: Response: No adverse reaction; IV Status: Completed infusion tw5 Intake: 02:23 IV: 50ml; Total: 50ml. as6 Outcome: 02:19 ER care complete, transfer ordered by . cp 03:39 Transferred to [facility], Transfer form completed. Note: DON tw5 4 WEST. Report called to Leslie LAWRENCE 03:39 Condition: stable 03:39 Instructed on the need for transfer. 04:12 Patient left the ED. as6 Signatures: Dispatcher [employer] EDMS Steven Hernandez PA PA cp Marsh, Wendy wm Wood, Tiffany tw5 Tiffanie Saavedra cs9 Santiago Sanchez RN RN as6 Corrections: (The following items were deleted from the chart) 01:22 01:15 Influenza Screen (A \\T\\ B)+BA.LAB.BRZ drawn and sent. tw5 EDMS
[2021-09-05 04:43] VITALS: TEMP 98.9
[2021-09-05 04:44] VITALS: BP 109/65; O2SAT 98
--- NOTE | 2021-09-05 08:23 | RAD REPORT ---
EXAM DESCRIPTION: RAD - Chest Single View - 09/05/2021 1:04 am CLINICAL HISTORY: FEVER COMPARISON: December 2018 TECHNIQUE: AP portable chest image was obtained 09/05/2021 1:04 am . FINDINGS: No focal mass or consolidation in the right lung field. Right midlung field infiltrates se en in 2019 has resolved with no remnant scarring identifiable. Left hemithorax is more hazy in appear ance. There is no dense consolidation. Small left pleural effusion is suspected. Heart size is prominent but stable. Upper lobe vasculature within normal limits. Sternotomy wires are in place. No pneumothorax. No acute bony abnormality seen. No acute aortic findings suspected. IMPRESSION: No focal consolidation is seen. Small left pleural effusion is suspected and there could be some minimal or early lower left lung fie ld infiltrate.
== END 2021-09-05 04:12 | disposition short-term general hospital (02) ==
LOC: ER 00:31
DX: J16.8 Pneumonia due to other specified infectious organisms (principal); R09.02 Hypoxemia; Z20.822 Contact with and (suspected) exposure to COVID-19; E11.22 Type 2 diabetes mellitus with diabetic chronic kidney disease; I12.0 Hypertensive chronic kidney disease with stage 5 chronic kidney disease or end stage renal disease; N18.5 Chronic kidney disease, stage 5; Z79.4 Long term (current) use of insulin; Z99.2 Dependence on renal dialysis; Z94.1 Heart transplant status
CPT/HCPCS: 96365; 96367; 93005; 87040 ×2; 87070; 85025; 80048; 36415; 82150; 82550; 85610; 80076; 87081; 83605; 85730; 84484; 82553; 83690; 84145; 0240U; 71045; 94640; 99285; J0456; J7050; J7030; J7040

== ENCOUNTER 2022-03-11 17:00 | Emergency (ER) | payer OTHER ==
--- OUTSIDE RECORDS SUMMARY | 2022-03-11 17:02 | XMS REPORT | Clinical Summary ---
:1945 Author Organization [facility] MD [facility] Address [address] [place] [address] Care Team Providers Name Role Phone MD Jose Luis Primary Care Provider Terrell Saxena MD Unavailable Terrell Saxena MD Unavailable MD Lucian Unavailable MD Jose Luis Unavailable Allergies Active Allergy Reactions Severity Noted Date Comments Adhesive Tape-Silicones Other (See Comments) Low 8 TEARS SKIN. OK WITH PAPER Sirolimus 08/06/2016 Medications Medication Sig Dispensed Refills Start Date End Date Status tacrolimus (PROGRAF) Take 0.5 mg by 0 Active 0.5 mg capsule mouth. mycophenolate Take by mouth. 0 A ctive (CELLCEPT) 500 mg tablet predniSONE (DELTASONE) Take 5 mg by 0 Active 5 mg tablet mouth. NOVOLIN 70/30 100 0 08/01/2016 A ctive unit/mL (70-30) injection aspirin 81 mg EC Take 81 mg by 0 Active tablet mouth. calcium Take 1 tablet by 0 Act tricia carbonate-vitamin D3 mouth. 1,250 mg (500 mg as elemental)-200 units tablet multivitamin Take 1 tablet by 0 Active (THERAGRAN) tab tablet mouth. thiamine (VITAMIN B-1) Take 100 mg by 0 Active 100 mg tablet mouth. omega-3 acid ethyl Take 1 g by mouth. 0 Active esters (LOVAZA) 1 g capsule folic acid (FOLVITE) 1 TAKE ONE TABLET BY 3 06/18/20 16 Active mg tablet MOUTH DAILY magnesium oxide (MAOX) Take 400 mg by 0 Active 400 mg tablet mouth. allopurinol (ZYLOPRIM) Take 100 mg by 0 Active 100 mg tablet mouth. pravastatin TAKE ONE TABLET BY 2 05/06/2016 Active (PRAVACHOL) 40 mg MOUTH IN THE LATE tablet EVENING DAILY. amLODIPine (NORVASC) 5 Take 5 [...] ONCE DAILY potassium chloride TAKE ONE TABLET BY 3 06/25/2016 Active (K-DUR,KLOR-CON M) 10 MOUTH TWICE DAILY mEq tablet metOLazone (ZAROXOLYN) Take 2.5 mg by 0 Active 2.5 mg tablet mouth. isosorbide mononitrate Take 30 mg by 0 Active (IMDUR) 30 mg 24 hr mouth. tablet tamsulosin (FLOMAX) TAKE ONE CAPSULE 3 05/21/2016 Active 0.4 mg 24 hr capsule EVERY EVENING ALPRAZolam (XANAX) TAKE 1 TABLET BY 1 05/30/2016 Active 0.25 mg tablet MOUTH 4 TIMES A DAY FOR 30 DAYS SINGULAIR 10 mg tablet TAKE 1 TABLET BY 0 07/28/2016 Active MOUTH EVERY DAY mupirocin (BACTROBAN) Apply topically to 22 g 0 2 Active 2% affected area(s) ointmentIndications: twice daily. Squamous cell carcinoma of nose Active Problems Not on file Encounters Date Type Specialty Care Team Description 02/24/2022 Procedure visit Kevin Nicolas MD Squam ousuzanne cell carcinoma of skin of ignacio k 02/24/2022 Travel 02/20/[address] RN 02/17/2022 Telephone Dermatology Albin Fierro 02/16/2022 Orders Only Nicole Guerra MD Squamou s cell carcinoma of skin of ignacio k (Primary Dx) 02/09/2022 Procedure visit Kevin Nicolas MD Squam ous cell carcinoma of nose 02/09/2022 Procedure visit Kevin Nicolas MD Squam ous cell carcinoma of nose (Primary Dx); Neoplasm of unc ertain behavior of skin 02/09/2022 Travel 02/03/2022 Orders Only Paty Chapman Squamous ce ll carcinoma MELINDA Chaidez of nose (Primar y Dx) 02/02/2022 Telephone Paty Chapman RN 01/28/2022 Orders Only Uday Mccloud MD Squamous cell carcinoma of nose (Primar y Dx) after 03/11/2021 Social History Tobacco Use Types Packs/Day Years Used Date Never Assessed Sex Assigned at Date Recorded Not on file Job Start Date Occupation Industry Not on file Not on file Not on file COVID-19 Exposure Response Date Recorded In the last 10 days, have you been in contact with No / Unsu re 02/24/2022 10:24 AM CDT someone who was confirmed or suspected to have Coronavirus/COVID-19? Last Filed Vital Signs Vital Sign Reading Time Taken Comments Blood Pressure 178/89 02/24/2022 2:25 PM CDT Pulse 86 02/24/2022 2:25 PM CDT Temperature 37 C (98.6 F) 02/24/2022 2:25 PM CDT Respiratory Rate 14 02/24/2022 11:19 AM CDT Oxygen Saturation 94% 02/24/2022 2:25 PM CDT Inhaled Oxygen Concentration - - Weight - - Height - - Body Mass Index - - Plan of Treatment Health Maintenance Due Date Last Done Comments COVID-19 Vaccination Completed 06/23/2021, 12/16/2020, , Additional history exists Procedures Procedure Name Priority Date/Time Associated Comments Diagnosis PATHOLOGY BIOPSY Routine 02/09/2022 11:10 Squamous cell Result s for this INTERPRETATION AM CDT carcinoma of nose procedur e are in the results section. after 03/11/2021 Results Pathology Biopsy Interpretation (02/09/2022 11:10 AM CDT) Component Value Ref Test Analysis Performed Pathologis t Range Method Time At Signature Submitted Squamous cell carcinoma of nose [C76.0] 02/17/2022 [facility] Clinical A: HAK vs SCC 12:05 PM History CDT Diagnosis A: Right zygoma, skin shave: 02/17/2022 [facility] Electronically FOCAL SQUAMOUS CELL CARCINOM A ARISING IN A BACKGROUND OF HYPERPLASTIC ACTINIC KERATOSIS, WITH FOLLICULAR INVOLVEMENT, PRESENT AT TISSUE EDGES. 12:05 PM signed by Libia Folliculitis and surrounding neutrophilic inflammatory infiltrate with scattered Gram-positive bacteria.. CDT MD Ruddy on 02/17/2022 at This case was studied and di scussed at the dermatopathology faculty conference. 12:05 PM Preliminar y result electronic ally signed by Libia Fox MD o n 02/13/2022 at 12:26 AM Comment An immunohistochemical study was performed using moreno-melanoma cocktail which highlights scattered junctional melanocytes; no melanocytic lesion is identified. Special stains (GRAM, GMS) were performed; 02/17/2022 [facility] Gram-positive bacteria is no karla within the stratum corneum, follicular infundibulum and perifollicular; scattered Pityrosporum yeasts are seen in stratum corneum. 12:05 PM CDT Gross A: 02/17/2022 [facility] Description Skin, right zygoma: A 0.7 x 0.5 x 0.3 cm, campbell skin shave. The specimen is inked, bisected, entirely submitted in A1. ET 12:05 PM CDT Special Service Officer(s) VGP, JLC, CAT, PN 02/17/2022 [facility] 12:05 PM CDT Disclaimer "Some tests reported 02/17/2022 [facility] here may have been 12:05 PM developed and CDT performance characteristics determined by [facility]. These tests have not been specifically cleared or approved by the U.S. Food and Drug Administration. If applicable, controls were reviewed and showed appropriate reactivity." Specimen Anatomical Collection Method Collection Time Receive d Time (Source) Location / / Volume Laterality Tissue (Skin) 02/09/2022 11:10 02/10/2022 AM CDT 1:16 PM CDT Kevin Amaya MD LAB PATHOLOGY ORDERABLES Performing Organization Address City/State/ZIP Code Phon e Number [facility] [place] [address] [id number] after 03/11/2021 Insurance Payer Benefit Plan / Subscriber ID Effective Dates Phone Addre ss Type Group MEDICARE MEDICARE PART [id number] 1997-Presen [phone] NOVITA S Medicare A AND B t 2 SOLUTIONS [address] [place] [address] GENERIC GENERIC [id number] 2008-Presen [phone] [address] [address] PPO MEDICARE t 0 [place], [place] [employer] [id number] ONLY Care Teams 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
--- OUTSIDE RECORDS SUMMARY | 2022-03-11 17:04 | XMS REPORT | Continuity of Care Document ---
:1945 Author Organization [facility] [place] t Address [address] [place] [address] [address]. [address] [place] [address] Care Team Providers Name Role Phone [phone] Primary Care Physician Unavailable JOSE LUIS Attending Clinician Unavailable SYSTEM, NOT IN Attending Clinician Unavailable WM Attending Clinician Unavailable Domingo LAWRENCE Attending Clinician Unavailable Roger Attending Clinician LACEY Attending Clinician Unavailable Lapin_S Attending Clinician Unavailable Gosia Gaffney MD Attending Clinician Audrey Sun Attending Clinician [phone] Kaylynn Villalpando RN Attending Clinician Unavailable Verna BLANK Attending Clinician PARTHA Attending Clinician Unavailable NIKHIL Attending Clinician Unavailable ELAINA Attending Clinician Unavailable PRANAY Attending Clinician Unavailable MD SCOTT BLANK Attending Clinician Unavailable EBENEZER Attending Clinician Unavailable FRANCES Attending Clinician Unavailable RONNA Attending Clinician Unavailable MD LENA FRIEND Attending Clinician Unavailable PAUL Attending Clinician Unavailable JACOB QUINTANILLA Attending Clinician Unavailable Nurse, Pob Immunization Attending Clinician Unavailable Jacob Quintanilla DO Attending Clinician SPEEDY Attending Clinician Unavailable SPARKLE Attending Clinician Unavailable ROCK Attending Clinician Unavailable TWIN Attending Clinician Unavailable TAMANNA Attending Clinician Unavailable Doctor Unassigned, Name Attending Clinician Unavailable JARED Attending Clinician Unavailable GEOVANNI Attending Clinician Unavailable RIYA Attending Clinician Unavailable Radiology Attending Clinician Unavailable ELO TAYLOR Attending Clinician Unavailable JOSE LUIS Attending Clinician Unavailable Lapin_S Admitting Clinician Unavailable ROGER Admitting Clinician Unavailable MD PIERRE DURAN Admitting Clinician Unavailable GEOVANNI Admitting Clinician Unavailable ELO TAYLOR Admitting Clinician Unavailable Payers Payer Name Policy Type Policy Number Effective Date Expiration Date Suzanne winkler MEDICARE PART A AND [id number] 1997 B 00:00:00 [place]ICARE B-[place]: [id number] 1997 [employer] 00:00:00 [facility] [id number] [facility] (MEDICARE REPLACEMENT HMO) MEDICARE PART A \\T\\ [id number] 1997 B 00:00:00 COMMERCIAL [id number] 2008 NON-CONTRACT 00:00:00 GENERIC Problems Condition Condition Condition Status Onset Resolution Last Treating Co mments Source Name Details Category Date Date Treatment Clinician Date MULTIPLE Diagnosis Active 2018-04-27 M emoria RIGHT 04-07 22:11:00 l SIDED RIB MULTIPLE 00:00: Her aguirre FX RIGHT 00 SIDED RIB FX Active [address] [facility] GO Diagnosis Active 2018-04-07 Memoria BILLING/ 04-07 23:03:00 l LFLT #3435 00:00: Brent STILES 00 BILLING/ LFLT #3435 Active 04/07/[address] [facility] Acute Problem 2018-11-05 Memor ia kidney 13:12:34 l failure, Acute [place] unspecifie kidney d failure, unspecifie d 11/05/[address] [facility] Acute Problem 2018-11-05 Memor ia posthemorr 13:12:34 l hagic Acute Sae anemia posthemorr hagic anemia 11/05/[address] [facility] Heart Problem 2018-11-05 Memor ia transplant 13:12:34 l status Heart Sae transplant status 11/05/[address] [facility] Urinary Problem 2018-11-05 Shine sarah tract 13:12:34 l infection, Urinary Her aguirre site not tract specified infection, site not specified 11/05/[address] [facility] Atelectasi Problem 2018-11-05 M emoria s 13:12:34 l Sae Atelectasi s 11/05/[address] [facility] Fall on Problem 2018-11-05 Shine sarah and from 13:12:34 l ladder, Fall on Brent n initial and from encounter ladder, initial encounter 11/05/[address] 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 Abrasion Problem 2018-11-05 Mem oria of left 13:12:34 l upper arm, Abrasion He rmann initial of left encounter upper arm, initial encounter 11/05/[address] [facility] Hyperlipid Problem 2018-11-05 M emoria emia, 13:12:34 l unspecifie Brent n d Hyperlipid emia, unspecifie d 11/05/[address] [facility] Traumatic Problem 2018-11-05 Ne moria subcutaneo 13:12:34 l us Sae emphysema, Traumatic initial subcutaneo encounter us emphysema, initial encounter 11/05/[address] [facility] Acute pain Problem 2018-11-05 M emoria due to 13:12:34 l trauma Acute Sae pain due to trauma 11/05/[address] 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 Hypoxemia Problem 2018-11-05 Me moria 13:12:34 l Sae Hypoxemia 11/05/[address] [facility] Unspecifie Problem 2018-11-05 M emoria d 13:12:34 l [place] Brent n a coli [E. Unspecifie coli] as d the cause [place] of a coli [E. diseases coli] as classified the cause elsewhere of diseases classified elsewhere 11/05/[address] 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 Gastro-eso Problem 2018-11-05 M emoria phageal 13:12:34 l reflux [place] disease Gastro-eso without phageal esophagiti reflux s disease without esophagiti s 11/05/[address] [facility] Hyperkalem Problem 2018-11-05 M emoria ia 13:12:34 l Sae Hyperkalem ia 11/05/[address] [facility] Diarrhea, Problem 2018-11-05 Me moria unspecifie 13:12:34 l d Sae Diarrhea, unspecifie d 11/05/[address] [facility] Contusion Problem 2018-11-05 Me moria of 13:12:34 l abdominal [place] wall, Contusion initial of encounter abdominal wall, initial encounter 11/05/[address] [facility] MULTIPLE Diagnosis Active 2018-04-27 M emoria FRACTURES 22:11:00 l OF RIBS, MULTIPLE Herm kris UNSP SIDE, FRACTURES I OF RIBS, UNSP SIDE, I Active [facility] Multiple Problem 2018-11-05 Mem oria fractures 13:12:34 l of ribs, Multiple Herm kris right fractures side, of ribs, initial right encounter side, for closed initial fracture encounter for closed fracture 11/05/[address] [facility] Hypertensi Problem 2018-11-05 M emoria ve heart 13:12:34 l and Sae chronic Hypertensi kidney ve heart disease and with heart chronic failure kidney and stage disease 1 through with heart stage 4 failure chronic and stage kidney 1 through disease, stage 4 or chronic unspecifie kidney d chronic disease, kidney or disease unspecifie d chronic kidney disease 11/05/[address] [facility] Chronic Problem 2018-11-05 Shine sarah kidney 13:12:34 l disease, Chronic Mallorie nn stage 4 kidney (severe) disease, stage 4 (severe) 11/05/[address] [facility] Contusion Problem 2018-11-05 Me moria of lung, 13:12:34 l unilateral Brent n , initial Contusion encounter of lung, unilateral , initial encounter 11/05/[address] [facility] Acidosis Problem 2018-11-05 Mem oria 13:12:34 l Acidosis Brent n 11/05/[address] [facility] Unspecifie Problem 2018-11-05 M emoria d fracture 13:12:34 l of T9-T10 [place] vertebra, Unspecifie initial d fracture encounter of T9-T10 for closed vertebra, fracture initial encounter for closed fracture 11/05/[address] [facility] No known No known Disease [place] active active Health problems problems History of Past Illness Condition Condition Condition Status Onset Resolution Last Treating Co mments Source Name Details Category Date Date Treatment Clinician Date Traumatic Problem 2018-11-05 2018-11-05 Memoria hemopneumo 8-03 13:12:34 13:12:34 l thorax, 03:07: Sae initial Traumatic 22 encounter hemopneumo thorax, initial encounter 04/29/2018 11/05/[address] [facility] Allergies, Adverse Reactions, Alerts Allergy Allergy Status Severity Reaction(s) Onset Inactive Treating Comm ents Source Name Type Date Date Clinician Adhesive Propensi Active Other (See 2017-09 TEARS Un christian Tape-Nai ty to Comments) 2-19 [place]. [place] ity of icones adverse 00:00: WITH [place] reaction 00 PAPER MD suzanne huggins [facility] Wound Drug Active Unknown 2017-09 TEARS [place] Dressing Allergy 2-19 [place]. [place] Healt h Adhesive 00:00: WITH 00 PAPER Sirolimu Propensi Active 2015-09 Holli palacios ty to 1-10 ity of adverse 00:00: [place] reaction 00 MD suzanne huggins [facility] SIROLIMU DRUG Active 2015-09 MD Palacios INGREDI 1-10 Anderso 00:00: n 00 NO KNOWN Drug Active Univers ALLERGIE Class ity of [facility] Social History Social Habit Start Date Stop Date Quantity Comments Source Exposure to 2022-02-14 2022-02-24 Not sure [facility] SARS-CoV-2 (event) 00:00:00 10:24:00 And [facility] Alcohol intake 2021-09-04 2021-09-04 .29 [facility]d [facility] 00:[facility] 00:00:00 Sex Ass[birth year] [facility] 00:00:00 00:00:[address] [facility] Smoking Status Start Date Stop Date Source Unknown if ever smoked [facility] Never smoked tobacco [facility] Medications Ordered Filled Start Stop Current Ordering Indication Dosage Frequency Signature Comments Components Source Medication Medication Date Date Medication? 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 tacrolimus Yes .5mg Take 0.5 Uni vers (PROGRAF) 5-10 mg by ity of 0.5 mg 14:51: mouth. [place] capsule 12 [facility] mycophenola Yes Take by Uni vers te 5-10 mouth. ity of (CELLCEPT) 14:51: [place] 500 mg 12 tablet [facility] predniSONE Yes 5mg Take 5 mg Un christian (DELTASONE) 5-10 by mouth. ity of 5 mg tablet 14:51: [place] [address] [facility] aspirin 81 Yes 81mg Take 81 mg U nivers mg EC 5-10 by mouth. ity of tablet 14:51: [place] [address] [facility] calcium Yes 1{tbl} Take 1 Univer s carbonate-v 5-10 tablet by ity of itamin D3 14:51: mouth. [place] 1,250 mg 12 (500 mg as Anderso elemental)- n 200 units Cancer tablet [place] multivitami Yes 1{tbl} Take 1 Un christian n 5-10 tablet by ity of (THERAGRAN) 14:51: [place] tab [place] 12 [facility] thiamine Yes 100mg Take 100 Univ ers (VITAMIN 5-10 mg by ity of B-1) 100 mg 14:51: [place] 12 [facility] omega-3 Yes 1g Take 1 g Univer s acid ethyl 5-10 by mouth. ity of esters 14:51: [place] (LOVAZA) 1 12 MD g capsule [facility] magnesium Yes 400mg Take 400 Uni vers oxide 5-10 mg by ity of (MAOX) 400 14:51: mouth. [place] mg tablet 12 [facility] allopurinol Yes 100mg Take 100 U nivers (ZYLOPRIM) 5-10 mg by ity of 100 mg 14:51: mouth. [place] tablet 12 [facility] amLODIPine Yes 5mg Take 5 mg Un christian (NORVASC) 5 5-10 by mouth. ity of mg tablet 14:51: [place] [address] [facility] esomeprazol Yes 40mg Take 40 mg Univers e (NexIUM) 5-10 by mouth. ity of 40 MG 14:51: [place] capsule 12 [facility] gabap[facility] Yes 300mg Take 300 Un christian (NEURONTIN) 5-10 mg by ity of 300 mg 14:51: mouth. [place] capsule 12 [facility] metOLazone Yes 2.5mg Take 2.5 Un christian (ZAROXOLYN) 5-10 mg by ity of 2.5 mg 14:51: mouth. [place] tablet 12 [facility] isosorbide Yes 30mg Take 30 mg U nivers mononitrate 5-10 by mouth. ity of (IMDUR) 30 14:51: [place] mg 24 hr 12 MD sainz [facility] aspirin Yes 81mg 81 mg. [place] (ASPIRIN) 4-08 Health 81 MG 08:39: chewable 08 tablet aspirin Yes 81mg 81 mg. [place] (ASPIRIN) 4-08 Health 81 MG 08:39: chewable 08 tablet aspirin Yes 81mg 81 mg. [place] (ASPIRIN) 611 Health 81 MG 09:42: chewable 24 tablet gabapentin Yes 300 mg = 1 M emoria 300 MG Oral 7-23 cap, PO, l Capsule 22:48: BID, # 28 Mallorie nn 00 cap, 0 Refill(s) methocarbam No 1,000 mg = Memoria ol 500 mg -23 2 tab, PO, l oral tablet 22:44: [...] Refill(s) ion Tacrolimus No Notes: Memor ia - Avoid l 04:07: grapefruit Sae and grapefruit juice. (Same As: Prograf) Methadone No Notes: Memori a 7-22 (Same as: l 21:00: Dolophine) [place] Prograf No Notes: Memoria 7-22 (Same As: l 13:00: Prograf) [place] 00 remove No Notes: Memoria patch 04-17 Remove l 11:00: patch 12 [place] 00 hours after applicatio n each day. Prograf No Notes: Memoria 7- (Same As: l 01:00: Prograf) Sae 00 Lidocaine No 1 patch, Shine sarah 0.05 [...] 7-19 Tablet l 21:30: should not Sae be chewed or crushed. (Same as: Protonix) Methadone No Notes: Memori a 7-19 (Same as: l 18:00: Dolophine) Sae Simethicone No Notes: Shine sarah 7-19 (Same as: l 01:35: Mylicon) Sae Isolyte S No Notes: Memori a PH-7.4 -18 (Same as: l (Bolus) IV 15:44: Isolyte S He rmann PH7.4) multivitami No 1 tab, PO, Memoria n 7-18 Daily l 14:26: [place] 00 Isolyte S No Notes: Memori a PH-7.4 -18 (Same as: l (Bolus) IV 10:06: Isolyte S He rmann PH 7.4) magnesium No Notes: Memori a citrate 04-13 (Same as: l 58.2 MG/ML 02:31: Citrate of H ermann Oral Magnesia) Solution Concentrat ion: 1.745 gm / 30 mL molasses No Notes: Memoria 7-17 (Same l 22:21: as:Molasse [place] s) Flomax No Notes: Memoria 7-17 (Same As: l 22:00: Flomax) Sae "Do Not Crush" Dulcolax No Notes: Memoria Laxative -17 (Same As: l 21:27: Dulcolax, [place] 00 Bisco-Lax) remove No Notes: Memoria patch -17 Remove l 19:05: patch 12 Sae 00 hours after applicatio n each day. Fosfomycin No Notes: Memor ia 17 (Same as: l 17:00: Monural) [place] 00 mix w/ 90 to 120 ml [...] MG 15:29: Roxicodone Herm kris Oral Tablet ) gabapentin No Notes: Memor ia 100 MG Oral 7-16 (Same as: l Capsule 21:00: Neurontin) Herm kris Flomax No Notes: Memoria 7-16 (Same As: l 13:30: Flomax) Sae "Do Not Crush" sennosides, No Notes: Shine sarah INTERMEDIATE 7-15 (Same as: l 22:00: Senokot) Miralax [...] Laxative 7-15 (Same As: l 16:54: Dulcolax, [place] 00 Bisco-Lax) Alprazolam No Notes: Memor ia 0.5 MG Oral 7-15 With food l Tablet 16:37: or milk Sae [Xanax] (Same as: Xanax) Aspirin 81 No Notes: Do Me moria MG Enteric 7-15 not crush l Coated 14:00: or chew. Sae Tablet 00 (Same As: Ecotrin) sennosides, No Notes: Shine sarah INTERMEDIATE 7-15 (Same as: l 14:00: Senokot) [place] 00 Miralax No Notes: Memoria 7-15 Dissolve l 14:00: in 8 oz of [place] water or juice. (Same as: Miralax) Imdur No Notes: Memoria 7-15 (Same l 14:00: as:Imdur) Sae 00 "Do Not Crush" Take on empty stomach/ full glass of water. Do not crush torsemide No Notes: Memori a 7-15 (Same As: l 14:00: Demadex) Alprazolam No Notes: Memor ia 0.5 MG Oral 7-15 With food l Tablet 03:31: or milk Sae [Xanax] 00 (Same as: Xanax) Pravastatin No Notes: Shine sarah 7-15 (Same as: l 02:00: Pravachol) Sulfamethox No Notes: One Memoria azole 800 [...] Memori a 7-14 Route: l 17:00: IVPB, [place] 00 ONCE, Dosing Weight 87.273, kg, Priority: NOW, Start date: 04/09/18 12:00:00 CDT, Stop date: 04/09/18 12:00:00 CDT Dulcolax 2017-0 No Notes: Memoria Laxative 7-14 (Same As: l 15:36: Dulcolax, Sae 00 Bisco-Lax) Labetalol 0 No Notes: Memori a 7-14 With food. l 15:29: (Same [place] as:Trandat e, Normodyne) Insulin 0 No 60 Memoria regular 7-14 units) l 15:22: WASTE: F/P Sae - Black; E - Municipal Trash Bin Stable for 28 days at room temperatur e Expires in days from ____Date Glucagon 0 No 1 mg, Memoria 7-14 Route: IM, l 15:22: Drug form: [place] 00 PDR/INJ, PRN, Dosing Weight 87.273, kg, PRN Blood Glucose Results, Start date: 04/09/18 10:22:00 CDT, Duration: 30 day, Stop date: 05/09/18 10:21:00 CDT Dextrose No 25 gm, 50 Shine sarah 50% Syringe 7-14 mL, Route: l 15:22: IVP, Drug Sae 00 Form: INJ, Dosing Weight 87.273, kg, PRN, PRN Blood Glucose Results, Start date: 04/09/18 10:22:00 CDT, Duration: 30 day, Stop date: 05/09/18 10:21:00 CDT Oxycodone 2017-0 No Notes: Memori a Hydrochlori 7-14 (Same as: l de 5 MG 14:31: Roxicodone Herm kris Oral Tablet 00 ) gabapentin 0 No 300 mg, 1 Me moria 300 [...] Ultram) Streptococc No Notes: Shine sarah us - Shake well l pneumoniae 03:20: prior to Her aguirre serotype 1 12 use (Same capsular as: antigen Prevnar diphtheria 13) [id number] protein conjugate vaccine / Streptococc us pneumoniae serotype 14 capsular antigen diphtheria HCX135 protein conjugate vaccine / Streptococc us pneumoniae [...] tab, PO, l Tablet 17:51: PRN, 0 [place] [Singulair] 00 Refill(s) Alprazolam No 0.5 mg = 1 M emoria 0.5 MG Oral 7-13 tab, PO, l Tablet 17:51: Daily, 0 Sae 00 Refill(s) Ferrousal No 325 mg = 1 Me moria 325 mg oral 7-13 tab, PO, l tablet 17:51: Daily, 0 [place] 00 Refill(s) isosorbide No 30 mg = [...] tab, PO, l tablet 17:45: BID, 0 [place] 00 Refill(s) gabapentin No 300 mg = 1 M emoria 300 MG Oral 7-13 cap, PO, l Capsule 17:45: TID, 0 [place] 00 Refill(s) Metolazone No 2.5 mg = [...] tab, PO, l tablet 17:44: BID, 0 [place] 00 Refill(s) pravastatin No 80 mg = 1 M emoria 80 mg oral 7-13 tab, PO, l tablet 17:19: Daily, 0 Sae 00 Refill(s) allopurinol No 100 mg = 1 Memoria 100 mg oral 7-13 tab, PO, l tablet 17:19: BID, 0 [place] 00 Refill(s) magnesium No 400 mg = 1 Me moria oxide 400 7-13 tab, PO, l mg oral 17:18: BID, 0 [place] tablet 00 Refill(s) Folic Acid No 1 [...] tab, PO, l tablet 17:13: Daily, 0 [place] 00 Refill(s) multivitami [address] No Daily, 0 Me moria n 7-13 Refill(s) l 17:13: Sae 00 Calcium No 1 tab, PO, Shine sarah Carbonate 7-13 BID, 0 l 1500 MG / 17:13: Refill(s) Her carla Cholecalcif 00 kang 400 UNT Oral Tablet Aspirin 81 No 81 mg = 1 Me moria MG Chewable 7-13 tab, CHEW, l Tablet 17:12: Daily, 0 Sae 00 Refill(s) NovoLIN No 24 unit, Memori a 70/30 7-13 SUB-Q, l 17:11: QPM, 0 [place] 00 Refill(s) NovoLIN No 18 unit, Memori a 70/30 7-13 SUB-Q, l 17:09: QAM, 0 Sae 00 Refill(s) predniSONE No 5 mg = 1 Mem oria 5 mg oral 7-13 tab, PO, l tablet 17:09: Daily, 0 [place] 00 Refill(s) tacrolimus No 0.5 mg = 1 M emoria 0.5 mg oral 7-13 cap, PO, l capsule 17:09: Q12H, 0 Sae 00 Refill(s) Prednisone No Notes: Memor ia 7- Take with l 14:00: food. Sae 00 Tacrolimus No Notes: Memor ia 7-13 Avoid l 13:00: grapefruit Sae 00 and grapefruit juice. (Same As: Prograf) heparin No Notes: Memoria sodium, 04-08 porcine l porcine 13:00: heparin [place] 2500 UNT/ML 00 Injectable Solution acetaminoph No Notes: Max Memoria en 04-08 acetaminop l 12:23: hen 4000 [place] 00 mg/day (4 gm/day). (Same as: Tylenol Extra Strength) iodixanol No 100 mL, Memor ia 04-08 Route: l 08:59: IVP, Drug [place] 00 Form: SOLN, kg, ONCALL, STAT, Start [...] 04-08 to exceed l 06:48: 400mg/day. Sae 00 [...] 04-08 (Same as: l 04:37: BD Sae 00 Posiflush) NOVOLIN 2015-09 Yes Univers 70/30 100 1-05 ity of unit/mL 00:00: [place] (70-30) 00 MD injection [facility] SINGULAIR 2015-09 Yes TAKE 1 Univer s 10 mg 1-01 TABLET BY ity of tablet 00:00: MOUTH [place] 00 EVERY DAY [facility] labetalol Yes TAKE 1 Univer s (TRANDATE) 9-29 TABLET BY ity of 300 mg 00:00: MOUTH [place] tablet 00 EVERY 12 MD HOURS [facility] potassium Yes TAKE ONE Univ ers chloride 9-29 TABLET BY ity of (K-DUR,KLOR 00:00: MOUTH [place] -CON M) 10 00 TWICE MD mEq tablet DAILY [facility] folic acid Yes TAKE ONE Uni vers (FOLVITE) 1 9-22 TABLET BY ity of mg tablet 00:00: MOUTH [place] 00 DAILY [facility] torsemide Yes TAKE 2 Univer s (DEMADEX) 9-22 TABLETS BY ity of 20 mg 00:00: MOUTH ONCE [place] tablet 00 DAILY MD [facility] ALPRAZolam Yes TAKE 1 Unive rs (XANAX) 9-03 TABLET BY ity of 0.25 mg 00:00: MOUTH 4 [place] tablet 00 TIMES A MD DAY FOR 30 Anderso DAYS [facility] tamsulosin Yes TAKE ONE Uni vers (FLOMAX) 8-25 CAPSULE ity of 0.4 mg 24 00:00: EVERY [place] hr capsule 00 EVENING MD [facility] pravastatin Yes TAKE ONE Un christian (PRAVACHOL) 8-10 TABLET BY ity of 40 mg 00:00: MOUTH IN [place] tablet 00 THE LATE MD EVENING Anderso DAILY. [facility] labetalol Yes TAKE 2 Univer s (TRANDATE) 8-04 TABLETS BY ity of 200 mg 00:00: MOUTH [place] tablet 00 TWICE A MD DAY [facility] Immunizations Ordered Filled Immunization Date Status Comments [facility] e Immunization Name Name SARS-COV-2 COVID-19 2021-06-23 Completed Unive rsity of MODERNA VACCINE 00:00:00 [facility] [place] [facility] Vital Signs Vital Name Observation Time Observation Value Comments Source Systolic blood 2022-02-24 19:25:00 178 mm[Hg] Univer sity of pressure [facility] Diastolic blood 2022-02-24 19:25:00 89 mm[Hg] Unive rsity of pressure [facility] Heart rate 2022-02-24 19:25:00 86 /min [facility] MD [facility] Body temperature 2022-02-24 19:25:00 [address] [facility] Oxygen saturation in 2022-02-24 19:25:00 94 /min [facility] Arterial blood by Jacky garay Pulse oximetry [facility] Respiratory rate 2022-02-24 16:19:00 14 /min [facility] Respitory Rate 2018-04-18 23:44:[address] Heart Rate 2018-04-18 23:44:00 Bob Quevedo Systolic (mm Hg) 2018-04-18 23:44:00 Shine Quevedo Diastolic (mm Hg) 2018-04-18 23:44:00 Mem orial Sae Temperature Oral (F) 2018-04-18 23:44:00 97.5 F [facility] Sae Heart Rate 2018-04-18 17:46:00 [facility] [place] Respitory Rate 2018-04-18 17:46:00 Memori al Sae Temperature Oral (F) 2018-04-18 17:46:00 97.8 F [facility] Sae Systolic (mm Hg) 2018-04-18 17:46:00 Shine rial Sae Diastolic (mm Hg) 2018-04-18 17:46:00 Mem orial [place] Systolic (mm Hg) 2018-04-18 14:34:00 Shine rial Sae Diastolic (mm Hg) 2018-04-18 14:34:00 Mem orial Sae Temperature Oral (F) 2018-04-18 14:34:00 97.5 F [facility] Sae Heart Rate 2018-04-18 14:34:00 [facility] [place] Respitory Rate 2018-04-18 14:34:00 Memori al Sae Weight 2018-04-09 02:59:00 [facility] Sae BMI Calculated 2018-04-09 02:59:00 Memori al [place] Height 2018-04-09 02:59:00 175.26 cm [facility] [place] Procedures Procedure Date / Time Performing Clinician Source Performed PATHOLOGY BIOPSY 2022-02-09 16:10:00 Benjamin Amaya [facility] INTERPRETATION MD Esquivel [facility] SARS-COV-2 COVID-19 2021-06-23 15:25:49 Doctor Unassigned, [facility] VACCINE,0.5ML,IM [facility] ([facility]) Encounters Start End Encounter Admission Attending Care Care Encounter Source Date/Time Date/Time Type Type Clinicians Facility Department ID 2022-02-14 [facility] [id number] [place] 03:11:38 BENJAMIN [id number] [facility] 2022-02-13 Outpatient [facility] [id number] [place] 15:53:51 [id number] [facility] 2022-01-19 Outpatient SYSTEM, DANIELLA BREWER [id number] 07:08:45 PROVIDER Fidencio huggins 2022-01-02 [facility] [id number] [place] 09:11:33 BENJAMIN [id number] [facility] 2022-02-25 2022-02-25 Outpatient WM, [facility] [id number] [place] 00:00:00 00:00:00 TRACY [address] 2022-02-25 2022-02-25 Outpatient WM, [facility] [id number] [place] 00:00:00 00:00:00 TRACY [address] 2022-02-25 2022-02-25 Outpatient WM, [facility] [id number] [place] 00:00:00 00:00:00 TRACY [address] 2022-02-25 2022-02-25 Outpatient WM, [facility] [id number] [place] 00:00:00 00:00:00 TRACY [address] 2022-02-25 2022-02-25 Outpatient WM, [facility] [id number] [place] 00:00:00 00:00:00 TRACY [address] 2022-02-24 2022-02-24 Procedure Migden, 1.2.840.1 [id number] [facility] 11:30:00 14:37:09 visit Benjamin 70505.1.1 ity of 3.412.2.7 [place] .3.150939 .8 [facility] 2022-02-24 2022-02-24 Travel 1.2.840.1 1.2.442.935 [id number] [facility] 00:00:00 00:00:00 08824.1.1 350.1.13.41 ity of 3.412.2.7 2.[place].7.3.698 [place] .3.454089 084.8 MD Fitzpatrick8 [facility] 2022-02-20 2022-02-20 Telephone [place] 1.2.840.1 [id number] [facility] 00:00:00 00:00:00 conchis 79229.1.1 ity of [place] 3.412.2.7 [place] .3.396902 MD Fitzpatrick8 [facility] 2022-02-17 2022-02-17 Telephone Roger, 1.2.840.1 [id number] [facility] 00:00:00 00:00:00 Albin 29868.1.1 it y of 3.412.2.7 [place] .3.538817 MD Hurtado [facility] 2022-02-17 2022-02-17 Outpatient LACEY, [facility] [id number] [place] 00:00:00 00:00:00 [address]ia [address] 2022-02-16 2022-02-16 Outpatient Lapin_S [facility] [id number] [place] 01:27:00 01:27:00 [facility] 2022-02-16 2022-02-16 Outpatient Lapin_S [facility] [id number] [place] 01:27:00 01:27:00 [facility] 2022-02-16 2022-02-16 Sammy Gaffney 1.2.840.1 [id number] [facility] 00:00:00 00:00:00 Only Nicole Elise 70905.1.1 i ty of 3.412.2.7 [place] .3.688223 MD Hurtado [facility] 2022-02-10 2022-02-10 Outpatient Lapin_S [facility] [id number] [place] 04:26:00 04:26:00 [facility] 2022-02-10 2022-02-10 Outpatient Lapin, U [facility] [id number] c-d 00:00:00 00:00:00 Jaime [id number] Audrey [id number] 1abd40 2022-02-09 2022-02-09 Procedure Jose Luis, 1.2.840.1 [id number] [facility] 19:30:00 19:30:00 visit Benjamin 10224.1.1 ity of 3.412.2.7 [place] .3.349974 MD Hurtado [facility] 2022-02-09 2022-02-09 Procedure Jose Luis, 1.2.840.1 [id number] [id number] [facility] 11:30:00 15:23:15 visit Benjamin 79019.1.1 ity of 3.412.2.7 [place] .3Amari009543 MD Hurtado [facility] 2022-02-09 2022-02-09 Travel 1.2.840.1 1.2.620.429 [id number] [facility] 00:00:00 00:00:00 14168.1.1 350.1.13.41 ity of 3.412.2.7 2.[place].7.3.698 [place] .3.462350 084.8 MD Fitzpatrick8 [facility] 2022-02-05 2022-02-05 Outpatient Lapin_S [facility] [id number] [place] 02:58:00 02:58:00 [facility] 2022-02-03 2022-02-03 Outpatient Lapin_S [facility] [id number] 03:07:00 03:07:00 [facility] 2022-02-03 2022-02-03 Orders Kwasi, 1.2.840.1 [id number] [facility] 00:00:00 00:00:00 Only Paty 73063.1.1 ity of [place] 3.412.2.7 [place] .3.755809 MD Fitzpatrick8 [facility] 2022-02-02 2022-02-02 Outpatient Lapin_S [facility] [id number] [place] 03:21:00 03:21:00 [facility] 2022-02-02 2022-02-02 Telephone Kwasi, 1.2.840.1 [id number] [facility] 00:00:00 00:00:00 Paty 93202.1.1 ity of [place] 3.412.2.7 [place] .3.819648 MD Hurtado [facility] 2022-01-28 2022-01-28 Orders Gillespie, 1.2.840.1 [id number] [facility] 00:00:00 00:00:00 Only Uday 50223.1.1 ity of 3.412.2.7 [place] .3.498316 MD Hurtado [facility] 2022-01-21 2022-01-21 Outpatient WM [facility] [id number] [place] 00:00:00 00:00:[address] 2022-01-21 2022-01-21 Outpatient WM, [facility] [id number] [place] 00:00:00 00:00:00 TRACY 461 Method i 2022-01-21 2022-01-21 Outpatient WM, [facility] [id number] [place] 00:00:00 00:00:00 TRACY 702 Method i 2022-01-16 2022-01-16 Telephone ALDO Amaya [facility] 4 1.2.840.114 [id number] [place] 00:00:[place] 00:00:00 Benjamin 350.1.13.58 He alth 9.2.7.2.686 [id number] 1 2022-01-12 2022-01-12 Outpatient WM, [facility] [id number] [place] 00:00:00 00:00:00 TRACY 633 Method i 2022-01-12 2022-01-12 Outpatient WM, [facility] [id number] [place] 00:00:00 00:00:00 TRACY 077 Method i 2022-01-12 2022-01-12 Outpatient WM, [facility] [id number] [place] 00:00:00 00:00:00 TRACY 927 Method i 2022-01-02 2022-01-02 Office Jose Luis [facility] 4 1.2.925.061 [id number] [place] 09:30:00 10:27:45 Visit Benjamin 350.1.13.58 He alth 9.2.7.2.686 [id number] 1 2021-12-25 2021-12-25 Outpatient WM, [facility] [id number] [place] 00:00:00 00:00:00 TRACY 666 Method i 2021-12-25 2021-12-25 Outpatient BOAZ CHAVIS [facility] [id number] [place] 00:00:00 00:00:00 029 Method i 2021-12-25 2021-12-25 Outpatient BOAZ CHAVIS [facility] [id number] [place] 00:00:00 00:00:00 030 Method i 2021-12-17 2021-12-17 Outpatient WM, [facility] [id number] [place] 00:00:00 00:00:00 TRACY 385 Method i 2021-12-102021-12-10 Outpatient JANAK CHAVISK [facility] [id number] [place] 00:00:00 00:00:00 217 Method i 2021-11-26 2021-11-26 Outpatient WM, [facility] [id number] [place] 00:00:00 00:00:00 TRACY 161 Method i 2021-11-26 2021-11-26 Outpatient OWEIS, [facility] [id number] [place] 00:00:00 00:00:00 YASEEN 977 Method i 2021-11-19 2021-11-19 Outpatient ELAINA, [facility] [id number] [place] 00:00:00 00:00:00 RAFIK 824 Method i 2021-11-12 2021-11-15 Outpatient POSANI, [facility] [id number] [place] 00:00:00 00:00:00 TRENTON 056 Method i 2021-10-28 2021-10-28 Outpatient EBENEZER, [facility] [id number] [place] 00:00:00 00:00:00 ASHRITH 041 Method i 2021-10-24 2021-10-24 Outpatient FRANCES, [facility] [id number] [place] 00:00:00 00:00:00 AHMED 201 Method i 2021-10-24 2021-10-24 Outpatient EBENEZER, [facility] [id number] [place] 00:00:00 00:00:00 ASHRITH 359 Method i 2021-10-24 2021-10-24 Outpatient EBENEZER, [facility] [id number] [place] 00:00:00 00:00:00 ASHRITH 360 Method i 2021-09-05 2021-09-12 Inpatient RONNA, [facility] 060 [id number] [place] 00:00:00 00:00:00 MAYURI 864 Method i 2021-08-25 2021-08-25 Outpatient EBENEZER, [facility] [id number] [place] 00:00:00 00:00:00 ASHRITH 959 Method i 2021-08-25 2021-08-25 Outpatient BHIMARAJ, [facility] [id number] [place] 00:00:00 00:00:00 [place] 198 Method i 2021-07-04 2021-07-04 Office ALDO Amaya [facility] 4 1.2.463.691 [id number] [place] 09:30:00 10:47:19 Visit Benjamin 350.1.13.58 He [facility] 9.2.7.2.686 [id number] 1 2021-06-23 2021-06-23 Outpatient Zev QUINTANILLA [facility] [id number] Univers 10:40:00 10:40:00 RIGOBERTO garner [facility] 2021-06-23 2021-06-23 Imm/Inj Nurse, Adc Pob Immunization [facility] 1.2.840.114 [id number] Univers 10:23:00 10:23:14 Visit Rigoberto [facility].13 .[facility] 4.2.7.2.686 Fermín Short [id number] Ne dical [address] 2021-05-13 2021-05-13 Outpatient MAGNUS RUFF [facility] [id number] [place] 00:00:00 00:00:00 868 Method i 2021-04-03 2021-04-03 Outpatient NOEMI, [facility] [id number] [place] 00:00:00 00:00:00 MOHAMMAD 798 Metho di 2021-03-27 2021-03-27 Outpatient NEOMI, [facility] [id number] [place] 00:00:00 00:00:00 MOHAMMAD 820 Metho di 2021-03-07 2021-03-07 Office ALDO Amaya [facility] 4 1.2.739.951 [id number] 09:32:28 10:24:45 Visit Benjamin 350.1.13.58 9.2.7.2.686 [id number] 1 2021-03-04 2021-03-04 Outpatient EBENEZER, [facility] [id number] [place] 00:00:00 00:00:00 ASHRITH 858 Method i 2021-02-28 2021-02-28 Outpatient SPARKLE, [facility] [id number] [place] 00:00:00 00:00:00 OPHELIA 422 Method i 2021-02-20 2021-02-20 Outpatient ROCK, [facility] [id number] [place] 00:00:00 00:00:00 MAHWASH [address] 2021-02-20 2021-02-20 Outpatient NAKAWAH, [facility] [id number] [place] 00:00:00 00:00:00 MOH[address]MAD [address] 2021-02-20 2021-02-20 Outpatient ROCK, [facility] [id number] [place] 00:00:00 00:00:00 MAHWASH [address] 2021-02-20 2021-02-20 Outpatient ROCK, [facility] [id number] [place] 00:00:00 00:00:00 MAHWASH [address] 2021-02-20 2021-02-20 Outpatient BHIMARAJ, [facility] [id number] [place] 00:00:00 00:00:00 [place] [address] 2021-02-20 2021-02-20 Outpatient ROCK, [facility] [id number] [place] 00:00:00 00:00:00 MAHWASH [address] 2021-02-20 2021-02-20 Outpatient ROCK, [facility] [id number] [place] 00:00:00 00:00:00 MAHWASH [address] 2021-02-19 2021-02-19 Outpatient NAKAWAH, [facility] [id number] [place] 00:00:00 00:00:00 [address]OHAMMAD [address] 2020-10-31 2020-10-31 Outpatient [facility] [id number] [place] 00:00:00 00:00:[address] 2020-10-03 2020-10-03 Outpatient NAKESTELAH, [facility] [id number] [place] 00:00:00 00:00:00 MOHAMMAD [address] 2020-10-03 2020-10-03 Outpatient MURCIA, [facility] [id number] [place] 00:00:00 00:00:00 RAKAN [address] 2020-09-06 2020-09-06 Outpatient NOLEN, [facility] [id number] [place] 00:00:00 00:00:00 FAMILIA [address] 2020-08-07 2020-08-07 Orders Doctor TITI 1.2.840.114 [id number] 00:00:00 00:00:00 Only Unassigned, ZEESHAN 350.1.13.10 Pettit [facility] 4.2.7.2.686 [id number] [id number] 2020-07-18 2020-07-18 Outpatient [facility], [facility] [id number] [place] 00:00:00 00:00:00 MOHAMMAD [address] 2020-07-18 2020-07-18 Outpatient [facility] [id number] [place] 00:00:00 00:00:[address] 2020-07-18 2020-07-18 Outpatient [facility], [facility] [id number] [place] 00:00:00 00:00:00 MOHAMMAD [address] 2020-07-09 2020-07-09 Outpatient [facility], [facility] [id number] [place] 00:00:00 00:00:00 [place] [address] 2020-07-09 2020-07-09 Outpatient [facility] [id number] [place] 00:00:00 00:00:00 [place] [address] 2020-05-30 2020-05-30 Outpatient [facility] [id number] [place] 00:00:00 00:00:00 [address]MAD [address] 2020-05-13 2020-05-13 Outpatient [facility] [id number] [place] 00:00:00 00:00:00 [place] [address] 2020-05-07 2020-05-[address] [facility], [facility] [id number] [place] 00:00:00 00:00:00 SANTI [address] 2020-02-28 2020-02-28 Outpatient [facility], [facility] [id number] [place] 00:00:00 00:00:00 YAZ [address] 2020-02-26 2020-02-26 [facility], [facility] [id number] [place] 00:00:00 00:00:00 [address]AMMAD [address] 2020-02-21 2020-02-21 Outpatient GEOVANNI, [facility] [id number] [place] 00:00:00 00:00:00 YAZ 991 Method i 2020-02-08 2020-02-08 Outpatient GEOVANNI, [facility] 021 [id number] [place] 00:00:00 00:00:00 YAZ 400 Method i 2019-12-06 2019-12-06 Outpatient AHMAD, [facility] [id number] [place] 00:00:00 00:00:00 PORTILLO 003 Metho di 2019-11-07 2019-11-07 Outpatient EBENEZER, [facility] [id number] [place] 00:00:00 00:00:00 ASHRITH 730 Method i 2019-11-07 2019-11-07 Outpatient EBENEZER, [facility] [id number] [place] 00:00:00 00:00:00 ASHRITH 056 Method i 2019-11-02 2019-11-02 Outpatient EBENEZER, [facility] [id number] [place] 00:00:00 00:00:00 ASHRITH 744 Method i 2019-11-02 2019-11-02 Outpatient EBENEZER, [facility] [id number] [place] 00:00:00 00:00:00 ASHRITH 621 Method i 2019-11-02 2019-11-02 Outpatient EBENEZER, [facility] [id number] [place] 00:00:00 00:00:00 ASHRITH 598 Method i 2019-11-02 2019-11-02 Outpatient EBENEZER, [facility] [id number] [place] 00:00:00 00:00:00 ASHRITH 830 Method i 2019-10-24 2019-10-24 [facility] Radiology [facility] 1.2.840.114 [id number] 11:09:00 23:59:00 Encounter [place] 350.1.13.10 [place] 4.2.7.2.686 [place] [id number] 2019-10-24 2019-10-24 Orders Doctor TITI 1.2.840.114 [id number] 00:00:00 00:00:00 Only Unassigned, ZEESHAN 350.1.13.10 Pettit [facility] 4.2.7.2.686 [id number] [id number] 2018-04-08 2018-04-19 Inpatient [facility] [id number] Memoria 04:09:00 00:45:[address] 2016-08-06 2016-08-11 Outpatient YOSSI AMAYA [facility] [id number] 08:47:07 15:20:31 BENJAMIN huggins Results Test Description Test Time Test Comments Results Result Comments Source Pathology Biopsy Interpretation 2022-02-17 17:05:35 Test Item Value Reference Range Interpretation Comme nts Submitted c7vfnLVsXRGgwQI8PREtYHDck1dfu2MoiLDknMHcJFuetZLvwwFtdo19dOU4xV73EP6fSLBiIcN7VRVp sbC8Gat9PHVlLNAulWUlA959f0cdg2clzhKblWW3wQzkOTYxvgmiAgN7MOlvVJVkthknIHb5SFseCRIw gYI1ZDRhbMIkF9BtJMVmLY0uujg0CQL6XIluVCKkIaU Clinical 6FGMtwRDvVJTspSasHCett368OEL4JfJjIAGmjeDewQntbJ3eBvJxAWSRiZLkcN51wiOuOGqyLKUbhlL fek2tEJOtDrTuc0UeFBhHCjLoNC8xgFNwCSS2DFwPVsZ4juHVZ6XoHYWzqe8= History (test code = 41580) Diagnosis w4qxyTKnQFTltOP1UOPoEIScv0pkb0FrdAYofKWuCSpbnFQdxlLydy49rKH3fZ64UC9rQRKsKqT3THOk qeT6Xvs5FJLnIUHsiBLwB266a1jwb8xznbVanKH6ZKNyNXByV2YcCK8vMLYcrLAwW79hxNApJOK2EEWy GFYjfAAwZYQcOQV4VAKzfPNdD5tuWGReLG1mttqbSFg (test code fRYiqEEOumCF6QMDnsNXcH0FeDNBuKRleNCTrflb0FxKhAx0siZFlvJbtERnzTGOhBSJqREpnWKCcNhO iH1ImRTW1XZEiS7o6VGx0K95uFWfkx6tekmFbcVD8PXolvZDgYGqrGpGdXBwpknvfJRdqKtJcOh7XJWt pY3KOZB1DXMYiF9EMPZYIWRFBDD3VDHKuDVFAW3cRCe = 34) SKBcPMTTZMJ0cZTc3IPeSyT3TdTFiUMOKFBDWVLVmBMTTKNDwLUPCeA1CNEAJPO2zKEPBCGOVIIHOXXD kZA3PKQHZrCH3DW9oDJS8WOcCmHOLSMENWAqOeFXCkNCtYH8WSYYHDR8YBQzpeERCuOd9mrBsleVzjoB piPSJyROVxdUMhm7DsROoxMpDnZSQ3gx2qyLvfwSFlt G3bfFFlyUG7d6N2QJbsGihoiMCvtYHum4w3zVOkR6L3gGRtWAReM3UxjM6mk4ZmsVq7OTFjSNE0UJRjK V5sWVNvbswuSXQcaBaiBMlcgyDpUGnrhtHjEAHlGUpaulEqjBOieDTpICRxOFOeeYEorZDpOWJpTYIwo OgaSWTshg5wnN2gOSFmf3tyS0ylHoKqvKd6mNEdr15o QEAeypWzWsKsZIBggnjxsOldAInujW91KcQluEAzcO== Comment n3njaNFoELDylKB9QKWtVOPrs4mfq3KztUCzmZOjGCquzMZesyZyqk80eSK9cI31RC6sKHTaRqH6YUGj lrP1Ary5RXJqNCYryNYlK567x9pfc4byaiUkdYX3iDzoBQWzvnbePkW2WKrcDGHvvakeZHy1CWnnEXYy cWN4UXPtpZNtN0DuKKLuAQ4lobd6KER8TTqgVEGfPnD (test code 2RAQdrPAdEFUdiPfaEYzpf697OWP7OnZpHRHjwgGqeBbxbI4rMpOkZPDYvvQdxH58cw3gmYN8t1BxKX1 gE6OfLHZ9nOG9YZkereFuEMJkh4PiPSRrcAPvtdpyrFKmXH3qsLDsw76eKAFgW4i6LDvlPObriANzGXd gM3oxvIcraZEdl4BrtYXqnpMnMWs6zeF9lD5rDEzqgW = 9835) RmAN2eI6p6KAI4QL8lTO2raAXmc4O1kLxsZBefd2zbubLnibXwUDLxrSedbZXnHmSOlVOcsISiWWV8BV omtlYcP9OTCNtgN56XNXO2WWQlAWPvhlZjjo8jHPyjQ6BrgH4gi0CibGx0MXYhYPH5ATTjQZTbxgGsp2 OuMWW6zYNuoU7gdXlwGJD6pxI3iW5lI10imgI6lXjrO x8koCtciQzvvjWwhuH3tjKlRbRmfX3rKV3kQKDwvihta1ddpCH7wYFyIhMcE7U7uUFdCNUpERj9oWKdd 0OiytZtWLlxDMH9goIsoaMsx0XtoeCzdhPysJLhvRGcWPFwyj7exN0jKLEsfccpQCE2 Gross f7igoCRjZDWepALIEJuoDQvtxaLwJDMblEWxM3VfwvnvHUucUR0dLI5wlYsueYXsaBAuTO0IFJSfIdOd FWGmiEKtbuSrOkNsFVTevCIxhDP7MMWaJB8mtootUZisMFaxYFIxpsV6MZOqbIRxN0DoWFZsPL9oyctz PVY4ZEzruM1brlLLMhtgRa7uvGCgiRvePjCjOaArPLD Descriptio zOXOuMTAzvDqwNTPeYOx0eN7MYfwgS79vh9L5Rlz0XMNrFFNvH5HgCB4hFSNboQMiB01KNlylPMF1ABW JZkbaJQYsYQ3Zf4maXRMvhFDtDVG9MLissICrYBVvHVUfQVd5WLIfEHpcvEMbNV5kjTqfZnrcjBdng1Y whOTvZYdqREJxOXRlCTojQCNhQI5FUqRnWWQyXMZ0WT n (test PpCJy9JZt1QZ0FEtZiSUBlVPC6JhC1XyMeGQk5HOmjAR3ZWSOgWRQoAAR7QChjSOQhOXNsCCs6TKXoSY meTDQqsENlSDtcOdAlRXCrXPbbNjSnELZjWLohyuM9MTToXWunFCHpAxAhOOXGHyxcNGIqHPnlzUyosF 9lKUUwN27nj6SYf2CtTE9XPBo0qtRxznakeI4tXGSiw code = vKwMIdklBQaA8jyWzatMnUhMnJdZRFIn8qbFLBibMbgqAK5cCyruKB1PCLaUSUqYBRmGSXwZquhvKChU zVvrMKkWjNbB97pFEIjclClj7nfGQUeJJPqBhUdIZaxJAWdURWmeDZrDDlkABjxn0HbHZZaaLGqF8VaX YmxRZ56rNEdiVgvu4EqnTj6uRPfSMnlQDGwDiShLHKm 1966942692 j9CeJ0Z9XWUqTFzhs1ueHFAbAWrhn9IyUKoQAKQCYI7HXT3nvWI4NMjRY5DYE6wBiYLcUTQ1jQQ0TSZU TzjcsOA8rCU0mG71FDAeHFKnfOLsQTovT543DGB5XFQuCQzgp1aeSEVqNGfrc8FjSSdVEWKRGI8COS4u lVP9XLhFK8VVNJdpIFYgZnvcrYUCVXT5HDlvmMfjoBi ) 2d2gxwOLnj6e3EJsnYXM4tClveYCtxzelkQZkqVdvwgEfDA4XDVYukNXKNRC7DR4rJGx6RQewZAPyF9H wH1WtybVlsTVlBSGejcYcb2crRZV5LDYdxVLfuUYjPuPoPmggRIT3RSXzEEenIC0ALNKyTMR5BBiqjZ9 3iHGpNF5ZTZMeBZddBNNoQOSxdnU6BDQlnNOrNME1OH 3ztCnqxLCfusyvjeF9LX9RuC== Public Relations a7jkbKStNBMpfYY3BSJwADTav5ijt7HirMUfiJBbZDkfpHZnhhAlsr17kEN0sR12RF9uIONlBzY1HTRc vcV5Ppz3AOLcWSQjfMBaO110n0ywx4gfujQjrTS8sEzeSLKquvkmKcE1FGscXNIsrkzaMFz9XQmvJFUf nZG9SEEjpBNmX2XbNWAyCB7avop8XYN5XLadKPCiNzE (s) (test 7BVIrgXShOAWsiYttAGuqo915DSJ1CwQoVYCnunAdsNgmoB9dVgThQKKNF8CrDEkSFekwC9TIYQKXJej wYXJ9 code = 9863) Disclaimer a3dyqGXgXJNllVFaPyPgFQAgURSfw6ehRQVdoDHqFeQfIfYjOxYmMkjuaOPnIBBbLyQnx2jkj771yNUj k0cqNSHyKxT3fNCmNNJllKTxE641DCZxALdco6rqo3AqMPNcjIOtc2D1PAKMxdywfEo2lFalD52jk3W4 UyofJ2kgCQIzANVvU7PpOF5zBXFsCmn9DET5KCQ4EWR (test code gQCKiD9KdFC1dYVMdhELdWLi4g1ucpHcaISZeCZS7g1naJGdnfbToTO5pdh2fsIa3j2dhcxZoQVQjAEN akSEQKAJjC5AmmWrqTq8kfJc2kEznWpgxHXH1Gmh9YX5eag54qag3dYayIMCaptlpNrB9KStdKKDezcu dQYq0OLboESOygSZ6OFViaDFaF5PgYUXkNJ2rtgb7RW = 9844) S7TOgyEJQzDqQ3PXYswPGqDEKrdQhaTWmzf324GBE7FmMpVP2mK0Njq4D4dD1bzDMqDJWzzVQxVvVrJH Mmfl6hiYKvMNvid7JdFYL2iaN4lZNmsIDvNVKsMU31Pztwh9WmLtsmYMF2BYKosySwq2Qoz5ddWxWbia PqF5pcL4ToRABxAOHaVARqQhKahtKri6Cyb2XexRGwd Rh5s0bdJBIoGIWhvCdaq9itBJF0VSWsC0O3iKGrl7fzZAkvHPEcdQP3hlC2EZXypTUvI8EmpM2sHAItY Z6rddm6p3efYNB4HFfvYDTtWcY8laV1MCQtdFKuSDJdiYspAPjgx125CQG4ZkUuIBDhk1ZuU5AxxUpeV 33tlNbgG57ePPItaRopyJ8tcWabcX2hPzLgCkKeRMbi nFevcZNgxlisZZgbtcG1GSacdhfgDJJyXRwxI7qhMfReXUKfdKuiTRuir3OoZSDuFUAkSvilfiW8NGVT s43jWXNve1WzAHXxnK1xkOFrFUzbmpApbGD5OSezqtSyGoLmamRfHQJrcY6cBOZmBQ7zWIEiarUjnp8k diAsFMGjAKLmS6WuwvyrtCaplqLtSSFtdc9gmeWvHLM 4HQAXDG3XGPGxXVBsn58uDBEooHczaE1txHIhmzPmMULxf3XtyN8lmNZZEFEpX2gsVJ4oCKsba3KpjOX lmBVraPK4PQBvm5TeWdKjlaPlqTAohZLqF7HnuVxpF1joVWBpXXRtzeSfdJGcs8LyTIUoaAK2jUFaPT9 VMmMAy41xPNXoQVJRjnTpYVYuhUkwdVP5pmV9wE9gRr AZWgZfuYBmeVLkPnxmCKGfy333br2pooX1OEVgKHQlizbhr6XzHGJgLNDuzL50OTWbDFPenz1itlscqY UwilVvO8Donmd6oV2mDULjJYgxAFLvWSYfIfDikIRwDnYuQmVqmOduoVuqATcnCyHvMGPeUCojD2yvXs FcZnMyMlxwYXJ9 [facility] [Presence] in Respiratory specimen by FREDDIE with probe [id number] 01:00:09 Test Item Value Reference Range Interpretation Comments SARS-CoV-2 (COVID-19) RNA Not detected Not-Detected [Presence] in Respiratory specimen by FREDDIE with probe detection (test code = 30745-6) 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 employed in a healthcare 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 (test code = 51003-1) Whether the patient has symptoms related to condition of interest (test code = 68990-0) Patient was hospitalized because of this condition (test code = 70048-5) Whether the patient was admitted to intensive care unit (ICU) for condition of interest (test code = 57254-4) Whether patient resides in a congregate care setting (test code = 79480-8) SARS-CoV-2 (COVID-19) RNA [Presence] in Respiratory specimen by FREDDIE with probe [id number] 21:45:46 Test Item Value Reference Range Interpretation Comments SARS-CoV-2 (COVID-19) RNA Not detected Not-Detected [Presence] in Respiratory specimen by FREDDIE with probe detection (test code = 82272-8) 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 employed in a healthcare setting (test code = 82521-6) Whether the patient has symptoms related to condition of interest (test code = 64273-5) Patient was hospitalized because of this condition (test code = 42266-2) Whether the patient was admitted to intensive care unit (ICU) for condition of interest (test code = 08138-8) Whether patient resides in a congregate care setting (test code = 53124-1) [place], 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 Taylor, as an intra-procedure imaging consultation was not requested. Reported fluoroscopy time: 44.5 seconds. Signed: Munir Grady Verified Da te/Time: 10/21/2018 14:21:41 Reading Location: [facility] Radiology Reading Room -GLUCOSE [id number] 14:02:00 Test Item Value Reference Range Interpretation Comments POC-GLUCOSE METER 160 mg/dL 70-110 H TESTED AT [facility] [address] ([facility]) (test code = [place] 1538) [address] POCT-GLUCOSE [id number] 12:28:00 Test Item Value Reference Range Interpretation Comments POC-GLUCOSE METER 158 mg/dL 70-110 H TESTED AT [facility] [address] ([place]) (test code = [place] 1538) [address] [place], 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 Taylor, as an intra-procedure imaging consultation was not requested. Reported fluoroscopy time: 35.8 seconds. Signed: Munir Grady Verified Date/Time: 09/16/2018 13:42:50 Reading Location: [facility] Radiology Reading Room POCT- GLUCOSE [id number] 12:18:00 Test Item Value Reference Range Interpretation Comments POC-GLUCOSE METER 154 mg/dL 70-110 H TESTED AT [place] [address] ([facility]) (test code = [place] 1538) [address] [id number] 10:58:003.3[facility] [id number] 05:30:00 1.61[facility] [id number] 05:30:0042[facility] PANEL 2018-04-17 05:30:0053[facility] [id number] 05:30:40686Fjrjhquv HermannCHEM [id number] 05:30:35637Iuwnhxpa [facility]CHE[facility] [id number] 05:30:004.9[facility] [id number] 05:30:0099[facility] [id number] 05:30:0025[facility] [id number] 05:30:008.6 [facility] [id number] 05:30:0014.9[facility]annTOXICOLOGY 2018-04-16 13:46:00<2.0[facility] [id number] 05:38:68992 [facility] [id number] 05:38:001.65[facility]ann[facility] PANEL 2018-04-16 05:38:0051[facility] [id number] 05:38:07111Anjrdooz HermannCHEM [id number] 05:38:65166Xqnzklye HermannCHEM [id number] 05:38:0027[facility] [id number] 05:38:005.2[facility] [id number] 05:38:0040[facility] [id number] 05:38:0014.2 [facility] [id number] 05:38:008.4[facility]annCHE[facility] PANEL 2018-04-15 05:13:005.6[facility] [id number] 05:13:0099[facility] [id number] 05:13:0029[facility] [id number] 05:13:008.9[facility]annCHE[facility] RODMJ1016-62-18 05:13:0014.6[facility]annCHE[facility] VYROV5705-62-17 05:13:0056[facility]annCHEM ZEZGT4133-82-15 05:13:30486 [facility] XCHWY4402-98-86 05:13:14483Gswnudkp HermannCHEM PANEL 2018-04-15 05:13:001.77[facility]annCHEM MGSHI8692-11-26 05:13:0037[facility]annCHEM DUHZW7801-64-98 05:43:004.1[facility]annCHE[facility] TVPFW0932-13-02 05:43:002.8[facility] LabcsrpITUJMBEVRX9642-72-90 05:43:0087.0[facility] VSLCTSFVNG6174-15-95 05:43:006.6[facility] NvzvsraYRJGZSHHOU4444-83-73 05:43:007.0 [facility] PdmraedXOWBYNORUM9143-64-19 05:43:006.0[facility]annHEMATOLOGY 2018-04-13 05:43:000.6[facility] CgnsmilHRBHCJLOMP2158-44-33 05:43:000.4[facility] TrdqyrrUEIDVUILTJ3808-46-15 05:43:00 Test Item Value Reference Range Interpretation Comments MCH (test code = MCH) 32.6 pg 27.0-31.0 [facility] HouwfrmCTFHFTPKDM7376-71-27 05:43:0033.9[facility] HermannHEMATOLOGY 2018-04-13 05:43:0015.3[facility] EtljaohIUQGIGRUJL5955-57-33 05:43:28071Bwpirymb WrxxndrOMWWAACOKY7960-43-96 05:43:009.6[facility] TkhcyyyZXZZCICWNJ0292-41-20 05:43:007.6[facility] NcwepywGTOEDGCWLG4739-68-94 05:43:0031.0[facility] IUGWXXNWVR6730-14-55 05:43:0096.1[facility] DvlamjmFXMORLSJBX7712-34-30 05:43:00 3.22[facility] KqcrwbzCYTURTXQKN6611-43-05 05:43:0010.5[facility]annCHEM PANEL 2018-04-12 05:57:003.6[facility]annCHEM PQMKV2864-61-23 05:57:002.4[facility] YovgxzbBYLTZIOCMO7664-56-77 05:57:0084.1[facility] MxbqiygUWSUXASSLN8345-59-48 05:57:000.9[facility] LfjjeicQNDVCXBVQO6739-49-25 05:57:000.2[facility] LENUBIOCEG2603-75-60 05:57:000.4[facility] GmpwedzOOZGSHXOZA9065-68-03 05:57:009.2 [facility] VrhjypoVHPYBGLHAB0374-29-63 05:57:006.7[facility]annHEMATOLOGY 2018-04-12 05:57:008.6[facility] KnsliypEKAXKMXSIK3434-72-20 05:57:000.7[facility] BugoaudVDIMCLTDWC1636-67-28 05:57:72291Aslvldwp WidafmyRZLCUSHVJM7560-79-26 05:57:0015.3[facility] AlmfhrsJXUQUVLMHD2251-20-09 05:57:0096.8[facility] HDMJZFSKHN8375-64-42 05:57:00 Test Item Value Reference Range Interpretation Comments MCH (test code = MCH) 31.8 pg 27.0-31.0 [facility] GoxixwpBJESSLNJPB4581-58-63 05:57:0010.6[facility]annHEMATOLOGY 2018-04-12 05:57:003.32[facility] VshsjtfEDYSCOLAPW7160-27-82 05:57:0032.8[facility] XtjwxgnPDQLKATNLX1462-10-13 05:57:0032.2[facility] HusyuhqMCDTUVVRAW6517-81-85 05:57:009.7[facility] EihqyphFQCRYFZBUC7895-18-86 05:57:0010.9[facility] KIATTTGWUJ7697-64-17 12:36:004.3[facility] XxchtahTQFEFLDTVA7300-79-23 05:53:007.8 [facility] MyqazldUMSTSCZLGW7269-00-32 05:53:007.6[facility]annHEMATOLOGY 2018-04-11 05:53:000.6[facility] RdsqwsuLEYNMADFYJ5311-82-81 05:53:009.1[facility] DiifqlcZSAFKXXSTM9017-35-92 05:53:000.2[facility] RsojmnlXQXILVQTGZ2529-23-46 05:53:000.8[facility] QggqsptTDYJNOVIGH8639-20-17 05:53:000.8[facility] SHSGNTWVZP1609-19-27 05:53:000.1[facility] KabhawjSDKTUCIWSR9511-16-17 05:53:00 83.8[facility] KfyomynHGNXTGTHYX1413-50-30 05:53:003.33[facility]annHEMATOLOGY 2018-04-11 05:53:0010.8[facility] ZviixiuACTYZTSFVP4991-42-08 05:53:0015.2[facility] MujecykJEQXWSSHIL5566-95-45 05:53:03277Jsmpfosr LayaxznJGGZRQRLTD6441-26-03 05:53:009.6[facility] UielhfuEQTOZCCGLC0420-49-16 05:53:0033.5[facility] MQQRQNUOQH9251-12-13 05:53:00 Test Item Value Reference Range Interpretation Comments MCH (test code = MCH) 32.3 pg 27.0-31.0 [facility] YfssipgPMEIONEYHS9307-98-09 05:53:0032.1[facility]annHEMATOLOGY 2018-04-11 05:53:0096.2[facility] XhhxfveXGUZJBFNZU1923-69-16 05:53:0010.8[facility] HermannGENTAMICIN:SUSC:PT:ISOLATE:ORDQN:WOD4271-54-42 19:19:00Escherichia coli [facility]DR[facility] FLAXEF9301-62-18 18:42:00Negative *NA*(04/09/18 1:42 PM) [facility] TBQREW5833-50-33 18:42:00Negative *NA*(04/09/18 1:42 PM) [facility] VAEPDM0807-04-21 18:42:00Negative *NA*(04/09/18 1:42 PM) [facility] RSXUAZ8288-62-67 18:42:00Positive *ABN*(04/09/18 1:42 PM) [facility] CIEJYX3618-14-59 18:42:00See Note (04/09/18 1:42 PM)[facility] TZRKNY6875-97-16 18:42:00Negative *NA*(04/09/18 1:42 PM)[facility] JTSGGG5723-23-13 18:42:00Negative *NA*(04/09/18 1:42 PM)[facility] CPZJXA8564-87-34 18:42:00Negative *NA*(04/09/18 1:42 PM)[facility] OWDCE6216-88-74 18:42:00Large *ABN*(04/09/18 1:42 PM)[facility] OYZED8506-78-69 18:42:00Negative (04/09/18 1:42 PM)[facility] MNTCY1501-77-85 18:42:00Large *ABN*(04/09/18 1:42 PM)[facility] WGCIL9171-37-23 18:42:00>182[facility] STOOL 2018-04-09 18:42:52834Janwudku [facility]UR[facility] CBULT9756-98-31 18:42:00Negative *NA*(04/09/18 1:42 PM)[facility] MVTXD0497-28-83 18:42:00Yellow *NA*(04/09/18 1:42 PM)[facility] ICZYR3324-63-64 18:42:00Marked *ABN*(04/09/18 1:42 PM)[facility] XHDTY9830-48-53 18:42:00 Test Item Value Reference Range Interpretation Comments UA Spec Grav (test code = UA Spec 1.013 1 Grav) [facility] MTSAO5285-10-06 18:42:00 Test Item Value Reference Range Interpretation Comments UA pH (test code = UA pH) 5.5 1 5.0-8.0 [facility] EdkqiwrIXFJAHDYWM0650-87-12 10:37:000.2[facility]annHEMATOLOGY 2018-04-09 10:37:000.8[facility] AywrezfTSIOPUKYFT1677-37-54 10:37:000.1[facility] KEIJO1962-30-49 05:20:006-10 (04/08/18 12:20 AM)[facility] URINE AND RZSIO2387-48-71 05:20:00Yellow *NA*(04/08/18 12:20 AM)[facility] URINE AND YWQPS2112-36-04 05:20:00Negative (04/08/18 12:20 AM)[facility] URINE AND BMEUP3774-43-98 05:20:00 Test Item Value Reference Range Interpretation Comments UA pH (test code = UA pH) 5.5 1 5.0-8.0 [facility] JLEZM8376-13-55 05:20:00 Test Item Value Reference Range Interpretation Comments UA Spec Grav (test code = UA Spec 1.025 1 Grav) [facility] RGZPR0097-70-19 05:20:00Slight Cloudy (04/08/18 12:20 AM)[facility] UKGJG9175-68-56 05:20:00Negative (04/08/18 12:20 AM) [facility] MXPBS4569-52-26 05:20:000.2[facility] XDDQE4014-44-09 05:20:00Large *ABN*(04/08/18 12:20 AM)[facility] ZBXEQ1429-02-14 05:20:00Negative *NA*(04/08/18 12:20 AM)[facility] FVHGX6108-35-82 05:20:00Negative *NA*(04/08/18 12:20 AM)[facility] YIAVO3776-09-41 05:20:00Negative (04/08/18 12:20 AM)[facility]BL[facility]OD BANK PZDOVSQ3900-01-45 04:50:00Negative (04/07/18 11:50 PM)[facility]annCHE[facility] GQUCU5881-17-18 04:41:480.8[facility]annCHE[facility] QKDWR1144-83-75 04:41:487.0 [facility] LXJXV8301-34-32 04:41:483.7[facility]annCHEM PANEL 2018-04-08 04:41:4846[facility]annCHE[facility] UCKVF6483-88-32 04:41:4860[facility]annCHE[facility] XWMQD7392-67-50 04:41:4865[facility]annCHE[facility] MOGEE8420-39-53 04:41:480.7[facility]annCHE[facility] MINFG5276-86-79 04:41:480.6[facility]annCHE[facility] DKPMD6620-10-62 04:41:480.1[facility]annCHE[facility] KQWJJ3245-79-64 04:41:48 Test Item Value Reference Range Interpretation Comments A/G Ratio (test code = A/G Ratio) 1.1 1 0.7-1.6 [facility]CHE[facility] STNHJ1925-86-68 04:41:483.3[facility]annHEMATOLOGY 2018-04-08 04:41:48 Test Item Value Reference Range Interpretation Comments PTT (test code = PTT) 29.3 s 22.9-35.8 [facility] NxzrpapOLLPRSLQFL2021-47-04 04:41:48 Test Item Value Reference Range Interpretation Comments INR (test code = INR) 1.19 1 0.85-1.17 [facility]BdbdnqmQZKXYMCKAB1891-69-73 04:41:48 Test Item Value Reference Range Interpretation Comments PT (test code = PT) 15.2 s 12.0-14.7 [facility]KbasslxKFVQFWZESX8597-64-63 04:41:481.1[facility] 2018-04-08 04:41:48 Test Item Value Reference Range Interpretation Comments ACT (TEG) Rapid (test code = ACT (TEG) 97 s 86-118 Rapid) [facility]evilleEnneixkENAQVVQWYA0670-01-32 04:41:488.1[facility] 2018-04-08 04:41:48 Test Item Value Reference Range Interpretation Comments Split Point Rapid (test code = Split 0.4 min Point Rapid) [facility]evilleGqcxuzoTLSDCCGSRA1447-79-75 04:41:48 Test Item Value Reference Range Interpretation Comments R-time Rapid (test code = R-time 0.5 min 0.4-0.7 Rapid) [facility]evilleSctfhryLBBXTRKYFZ9575-39-58 04:41:48 Test Item Value Reference Range Interpretation Comments Angle Rapid (test code = Angle 76 degrees 64-80 Rapid) [facility]evilleTbveajhIUGIKINZLU6277-31-30 04:41:48 Test Item Value Reference Range Interpretation Comments Max Amplitude Rapid (test code = Max 62 mm 52-71 Amplitude Rapid) [facility]evilleCdsamlkTTERYYQTBE0672-99-00 04:41:48 Test Item Value Reference Range Interpretation Comments K-time Rapid (test code = K-time 1.2 min 0.6-2.3 Rapid) [facility] CenterAcyaekjXXXVUEEESK2845-35-10 04:41:48<0.003[facility]annTOXICOLOGY 2018-04-08 04:41:48<3[facility]
[2022-03-11] MEDS ORDERED: HYDROCODONE/APAP 5/325 MG TAB ONE (17:39)
--- NOTE | 2022-03-11 18:33 | RAD REPORT ---
EXAM DESCRIPTION: US - Extremity Venous Uni Ltd - 03/11/2022 6:08 pm CLINICAL HISTORY: Pain COMPARISON: None. TECHNIQUE: Real-time sonographic evaluation of the right lower extremity deep venous systems was per formed. FINDINGS: Normal compressibility, flow augmentation, phasic flow and spontaneous flow is identified in the right lower extremity deep venous systems. No intraluminal filling defects seen. IMPRESSION: No DVT in the right lower extremity.
--- NOTE | 2022-03-11 19:27 | EDPHYS ---
Physician Documentation [facility] Name: Octavio Bueno Age: 76 yrs Sex: Male : 1945 Arrival Date: 03/11/2022 Time: 17:03 Bed 7 Private MD: ED Physician Brad Sandoval HPI: 03/11 18:00 This 76 yrs old Male presents to ER via Ambulatory with complaints of Leg Pain. cp 18:00 The patient presents with pain, that is acute. The complaints affect the right lower cp leg. Onset: The symptoms/episode began/occurred 1 week(s) ago. Associated signs and symptoms: The patient has no apparent associated signs or symptoms. 18:00 Patient describes pain as an ache. Was seen at urgent care and diagnosed with sciatica. cp Referred to ED to r/o DVT. Historical: - Allergies: 17:08 Rapamune; tw2 - Home Meds: 17:08 allopurinol 100 mg Oral tab 1 tab 2 times per day [Active]; alprazolam 0.5 mg Oral tab tw2 1 tab daily [Active]; amlodipine 5 mg tab 1 tab once daily [Active]; finasteride 5 mg Oral tab 1 tab twice a day [Active]; gabapentin 300 mg Oral cap 1 cap 3 times per day [Active]; folic acid 1 mg Oral tab 1 tab once daily [Active]; isosorbide mononitrate 30 mg Oral Tb24 1 tab once daily [Active]; metolazone 2.5 mg Oral tab 1 tab as needed [Active]; magnesium oxide 400 mg Oral tab twice a day [Active]; potassium chloride 10 mEq Oral TbER 1 cap once daily [Active]; ferrous sulfate 325 mg (65 mg iron) Oral tab daily [Active]; prednisone 5 mg Oral tab 1 tab once daily [Active]; Novolin 70/30 Innolet Sub-Q 70-30 unit/mL twice a day [Active]; sertraline 50 mg Oral tab 1 tab once daily [Active]; torsemide 40 mg Oral tab 1 tab once daily [Active]; pravastatin 80 mg Oral tab 1 tab once daily [Active]; tamsulosin 0.4 mg Oral cp24 1 cap once daily [Active]; Nexium 20 mg Oral cpDR 1 cap once daily [Active]; Singulair 10 mg Oral tab 1 tab as needed [Active]; aspirin 81 mg Oral TbEC 1 tab once daily [Active]; - PMHx: 17:08 Chronic kidney disease stage V; Diabetes - IDDM; Gout; Hyperlipidemia; Hypertension; tw2 Migraines r/t head injury; Myocardial infarction; 17:10 Bile duct cancer; tw2 - PSHx: 17:08 Heart transplant; hernia; Cholecystectomy; tw2 - Immunization history:: Client reports receiving the 2nd dose of the Covid vaccine. - Social history:: Smoking status: Patient denies any tobacco usage or history of. ROS: 18:05 Constitutional: Negative for body aches, chills, fever, poor PO intake. cp 18:05 Eyes: Negative for injury, pain, redness, and discharge. cp 18:05 ENT: Negative for drainage from ear(s), ear pain, sore throat, difficulty swallowing, difficulty handling secretions. 18:05 Cardiovascular: Negative for chest pain, edema, palpitations. 18:05 Respiratory: Negative for cough, shortness of breath, wheezing. 18:05 Abdomen/GI: Negative for abdominal pain, nausea, vomiting, and diarrhea. 18:05 Back: Negative for pain at rest, pain with movement. 18:05 MS/extremity: Positive for pain, tenderness, of the right lower leg, Negative for injury or acute deformity, decreased range of motion, paresthesias. 18:05 Neuro: Negative for altered mental status, dizziness, headache, weakness. 18:05 All other systems are negative. Exam: 18:10 Constitutional: The patient appears in no acute distress, alert, awake, cp non-diaphoretic, non-toxic, well developed, well nourished. 18:10 Head/Face: Normocephalic, atraumatic. cp 18:10 Neck: ROM/movement: is normal, is supple, without pain, no range of motions limitations. 18:10 Chest/axilla: Inspection: normal. 18:10 Cardiovascular: Rate: normal, Pulses: Pulses are 2+ in right dorsalis pedis artery and left dorsalis pedis artery. Edema: ankle edema, that is mild, JVD: is not appreciated. 18:10 Respiratory: the patient does not display signs of respiratory distress, Respirations: normal, no use of accessory muscles, no retractions, labored breathing, is not present, Breath sounds: are clear throughout, no decreased breath sounds, no stridor, no wheezing. 18:10 Abdomen/GI: Inspection: obese Bowel sounds: active, all quadrants, Palpation: abdomen is soft and non-tender, in all quadrants. 18:10 Back: pain, is absent, ROM is normal. 18:10 Musculoskeletal/extremity: Extremities: noted in the right lower leg: general tenderness to palpation, no skin erythema and/or discoloration, no joint line tenderness of right knee and right ankle joints, ROM: full passive range of motion, in the right knee and right ankle, the right leg Sensation intact. Vital Signs: 17:06 BP 136 / 73; Pulse 95; Resp 17; Temp 97.7(TE); Pulse Ox 100% on R/A; Weight 81.65 kg; tw2 Height 5 ft. 9 in. (175.26 cm); Pain 10/10; 19:41 BP 130 / 76; Pulse 94; Resp 17; Pulse Ox 100% on R/A; lg3 17:06 Body Mass Index 26.58 (81.65 kg, 175.26 cm) tw2 MDM: 17:14 Patient medically screened. cp 18:00 Differential diagnosis: DVT, cellulitis, PAD. cp 19:25 Data reviewed: vital signs, nurses notes, radiologic studies, ultrasound. cp 19:25 Counseling: I had a detailed discussion with the patient and/or guardian regarding: the cp historical points, exam findings, and any diagnostic results supporting the discharge/admit diagnosis, radiology results, the need for outpatient follow up, a family practitioner, an prescription eyeglass maker, to return to the emergency department if symptoms worsen or persist or if there are any questions or concerns that arise at home. Response to treatment: the patient's symptoms have mildly improved after treatment, and as a result, I will discharge patient. 03/11 17:28 Order name: US Extremity Venous Unilateral Ltd; Complete Time: 18:56 cp 03/11 18:56 Interpretation: Report reviewed. cp Administered Medications: 17:36 Drug: HYDROcodone-acetaminophen 5 mg-325 mg 1 tabs Route: PO; jd3 18:30 Follow up: Response: No adverse reaction; RASS: Alert and Calm (0) jd3 Disposition Summary: 03/11/22 19:27 Discharge Ordered Location: Home cp Problem: new cp Symptoms: have improved cp Condition: Stable cp Diagnosis - Pain in right leg cp Followup: cp - With: Private Physician - When: 2 - 3 days - Reason: Recheck today's complaints Discharge Instructions: - Discharge Summary Sheet cp - Musculoskeletal Pain cp Forms: - Medication Reconciliation Form cp - Thank You Letter cp - Antibiotic Education cp - Prescription Opioid Use cp Prescriptions: - Tramadol 50 mg Oral Tablet - take 1 tablet by ORAL route every 8 hours as needed; 12 tablet; Refills: 0, cp Product Selection Permitted Signatures: Dispatcher [employer] EDSteven Hammer PA PA cp Wise, Tara RN RN tw2 Cl Bey RN RN jd3
--- NOTE | 2022-03-11 19:27 | ER ---
Nurse's Notes [facility] Name: Octavio Bueno Age: 76 yrs Sex: Male : 1945 Arrival Date: 03/11/2022 Time: 17:03 Bed 7 Private MD: Diagnosis: Pain in right leg Presentation: 03/11 17:06 Chief complaint: Patient states: my right leg is totally in pain. from my knee down it tw2 hurts. this has been going on for over a week. Spouse and/or significant other states: he went to the urgent care next to [facility] and they said it was sciatica and gave him medicine but it hasnt helped so we want to make sure there is no blood clot. Coronavirus screen: At this time, the client does not indicate any symptoms associated with coronavirus-19. Ebola Screen: Patient denies travel to an Ebola-affected area in the 21 days before illness onset. Initial Sepsis Screen: Does the patient meet any 2 criteria? HR > 90 bpm. No. Patient's initial sepsis screen is negative. Does the patient have a suspected source of infection? No. Patient's initial sepsis screen is negative. Risk Assessment: Do you want to hurt yourself or someone else? Patient reports no desire to harm self or others. Onset of symptoms was March 11, 2022. 17:06 Method Of Arrival: Ambulatory tw2 17:06 Acuity: YAHIR 3 tw2 Triage Assessment: 17:08 General: Appears in no apparent distress. uncomfortable, Behavior is calm, cooperative, tw2 appropriate for age. Pain: Complains of pain in right leg. Neuro: Level of Consciousness is awake, alert, obeys commands, Oriented to person, place, time, situation. Historical: - Allergies: 17:08 Rapamune; tw2 - Home Meds: 17:08 allopurinol 100 mg Oral tab 1 tab 2 times per day [Active]; alprazolam 0.5 mg Oral tab tw2 1 tab daily [Active]; amlodipine 5 mg tab 1 tab once daily [Active]; finasteride 5 mg Oral tab 1 tab twice a day [Active]; gabapentin 300 mg Oral cap 1 cap 3 times per day [Active]; folic acid 1 mg Oral tab 1 tab once daily [Active]; isosorbide mononitrate 30 mg Oral Tb24 1 tab once daily [Active]; metolazone 2.5 mg Oral tab 1 tab as needed [Active]; magnesium oxide 400 mg Oral tab twice a day [Active]; potassium chloride 10 mEq Oral TbER 1 cap once daily [Active]; ferrous sulfate 325 mg (65 mg iron) Oral tab daily [Active]; prednisone 5 mg Oral tab 1 tab once daily [Active]; Novolin 70/30 Innolet Sub-Q 70-30 unit/mL twice a day [Active]; sertraline 50 mg Oral tab 1 tab once daily [Active]; torsemide 40 mg Oral tab 1 tab once daily [Active]; pravastatin 80 mg Oral tab 1 tab once daily [Active]; tamsulosin 0.4 mg Oral cp24 1 cap once daily [Active]; Nexium 20 mg Oral cpDR 1 cap once daily [Active]; Singulair 10 mg Oral tab 1 tab as needed [Active]; aspirin 81 mg Oral TbEC 1 tab once daily [Active]; - PMHx: 17:08 Chronic kidney disease stage V; Diabetes - IDDM; Gout; Hyperlipidemia; Hypertension; tw2 Migraines r/t head injury; Myocardial infarction; 17:10 Bile duct cancer; tw2 - PSHx: 17:08 Heart transplant; hernia; Cholecystectomy; tw2 - Immunization history:: Client reports receiving the 2nd dose of the Covid vaccine. - Social history:: Smoking status: Patient denies any tobacco usage or history of. Screenin:21 Abuse screen: Denies threats or abuse. Nutritional screening: No deficits noted. tw2 Tuberculosis screening: No symptoms or risk factors identified. Fall Risk None identified. Assessment: 17:48 General: Appears in no apparent distress. comfortable, Behavior is calm, cooperative, jd3 appropriate for age. Pain: Complains of pain in right leg Quality of pain is described as pressure, tender. Neuro: Harvey Agitation-Sedation Scale (RASS): 0 - Alert and Calm Level of Consciousness is awake, alert, obeys commands, Oriented to person, place, time, situation. Cardiovascular: Denies chest pain, Capillary refill < 3 seconds Patient's skin is warm and dry. Respiratory: Airway is patent Respiratory effort is even, unlabored, Respiratory pattern is regular, symmetrical, Denies cough, shortness of breath. GI: No signs and/or symptoms were reported involving the gastrointestinal system. : No signs and/or symptoms were reported regarding the genitourinary system. EENT: No signs and/or symptoms were reported regarding the EENT system. Derm: Skin is intact, Skin is dry, Skin is normal, Skin temperature is warm. Musculoskeletal: Circulation, motion, and sensation intact. Range of motion: intact in all extremities, Swelling present in right leg. 18:58 Reassessment: Patient appears in no apparent distress at this time. No changes from jd3 previously documented assessment. Patient and/or family updated on plan of care and expected duration. Pain level reassessed. Patient is alert, oriented x 3, equal unlabored respirations, skin warm/dry/pink. 19:39 Reassessment: Patient appears in no apparent distress at this time. No changes from lg3 previously documented assessment. Patient and/or family updated on plan of care and expected duration. Pain level reassessed. Patient is alert, oriented x 3, equal unlabored respirations, skin warm/dry/pink. Patient states feeling better. Patient states symptoms have improved. Vital Signs: 17:06 BP 136 / 73; Pulse 95; Resp 17; Temp 97.7(TE); Pulse Ox 100% on R/A; Weight 81.65 kg; tw2 Height 5 ft. 9 in. (175.26 cm); Pain 10/10; 19:41 BP 130 / 76; Pulse 94; Resp 17; Pulse Ox 100% on R/A; lg3 17:06 Body Mass Index 26.58 (81.65 kg, 175.26 cm) tw2 ED Course: 17:03 Patient arrived in ED. as 17:05 Steven Hernandez PA is PHCP. cp 17:05 Brad Sandoval MD is Attending Physician. cp 17:08 Triage completed. tw2 17:10 Arm band placed on. tw2 17:10 Bed in low position. Call light in reach. Adult w/ patient. tw2 17:31 Cl Bey RN is Primary Nurse. jd3 18:10 US Extremity Venous Unilateral Ltd In Process Unspecified. EDMS 19:42 Primary Nurse role handed off by Cl Bey, RN mw2 19:42 No provider procedures requiring assistance completed. Patient did not have IV access lg3 during this emergency room visit. Administered Medications: 17:36 Drug: HYDROcodone-acetaminophen 5 mg-325 mg 1 tabs Route: PO; jd3 18:30 Follow up: Response: No adverse reaction; RASS: Alert and Calm (0) jd3 Medication: 17:21 VIS not applicable for this client. tw2 Outcome: 19:27 Discharge ordered by . cp 19:42 Discharged to home ambulatory, with family. lg3 19:42 Condition: stable 19:42 Discharge instructions given to patient, significant other, Instructed on discharge instructions, follow up and referral plans. medication usage, Demonstrated understanding of instructions, follow-up care, medications, Prescriptions given X 1. 19:42 Patient left the ED. lg3 Signatures: Dispatcher [employer] EDMS Maryann Thomson Corey, PA PA cp Wise, Tara, RN RN tw2 Cl Bey, RN RN jd3 Gio Orta mw2 Jasmin Denny, RN RN lg3
[2022-03-11 20:02] VITALS: TEMP 97.7; O2SAT 100
[2022-03-11 20:04] VITALS: BP 130/76
== END 2022-03-11 19:42 | disposition home or self-care (01) ==
LOC: ER 17:00
DX: M79.604 Pain in right leg (principal); Z88.8 Allergy status to other drugs, medicaments and biological substances; E11.22 Type 2 diabetes mellitus with diabetic chronic kidney disease; I12.0 Hypertensive chronic kidney disease with stage 5 chronic kidney disease or end stage renal disease; N18.5 Chronic kidney disease, stage 5; E78.5 Hyperlipidemia, unspecified
CPT/HCPCS: 93971; 99283

== ENCOUNTER 2022-09-20 16:38 | Emergency (ER) | payer OTHER ==
--- OUTSIDE RECORDS SUMMARY | 2022-09-20 16:40 | XMS REPORT | Clinical Summary ---
:1945 Author Organization [facility] Address [address] [place] [address] Care Team Providers Name Role Phone Kevin Amaya MD Primary Care Provider Alejo Saxena MD Unavailable Alejo Saxena MD Unavailable Donald Epstein MD Unavailable Kevin Amaya MD Unavailable Allergies Active Allergy Reactions Severity Noted Date Comments Adhesive Tape-Silicones Other (See Comments) Low 8 TEARS SKIN. OK WITH PAPER Sirolimus 08/06/2016 Medications Medication Sig Dispensed Refills Start End Date Status Date tacrolimus (PROGRAF) Take 0.5 mg by 0 Active 0.5 mg capsule mouth. mycophenolate Take by mouth. 0 A ctive (CELLCEPT) 500 mg tablet predniSONE Take 5 mg by 0 Active (DELTASONE) 5 mg mouth. tablet NOVOLIN 70/30 100 0 Ac tive unit/mL (70-30) 6 injection aspirin 81 mg EC Take 81 mg by 0 Active tablet mouth. calcium Take 1 tablet 0 Active carbonate-vitamin D3 by mouth. 1,250 mg (500 mg as elemental)-200 units tablet multivitamin Take 1 tablet 0 Act tricia (THERAGRAN) tab by mouth. tablet thiamine (VITAMIN Take 100 mg by 0 Active B-1) 100 mg tablet mouth. omega-3 acid ethyl Take 1 g by 0 Active esters (LOVAZA) 1 g mouth. capsule folic acid (FOLVITE) TAKE ONE 3 Active 1 mg tablet TABLET BY 6 MOUTH DAILY magnesium oxide Take 400 mg by 0 Active (MAOX) 400 mg tablet mouth. allopurinol Take 100 mg by 0 Act tricia (ZYLOPRIM) 100 mg mouth. tablet amLODIPine (NORVASC) Take 5 mg by 0 Active 5 mg tablet mouth. labetalol (TRANDATE) TAKE 1 TABLET 3 Active 300 mg tablet BY MOUTH EVERY 6 12 HOURS labetalol (TRANDATE) TAKE 2 TABLETS 3 Active 200 mg tablet BY MOUTH TWICE 6 A DAY esomeprazole Take 40 mg by 0 Act tricia (NexIUM) 40 MG mouth. capsule gabapentin Take 300 mg by 0 Acti ve (NEURONTIN) 300 mg mouth. capsule torsemide (DEMADEX) TAKE 2 TABLETS 3 Active 20 mg tablet BY MOUTH ONCE 6 DAILY potassium chloride TAKE ONE A ctive (K-DUR,KLOR-CON M) TABLET BY 6 10 mEq tablet MOUTH TWICE DAILY metOLazone Take 2.5 mg by 0 Acti ve (ZAROXOLYN) 2.5 mg mouth. tablet isosorbide Take 30 mg by 0 Activ e mononitrate (IMDUR) mouth. 30 mg 24 hr tablet tamsulosin (FLOMAX) TAKE ONE 3 Active 0.4 mg 24 hr capsule CAPSULE EVERY 6 EVENING ALPRAZolam (XANAX) TAKE 1 TABLET 1 Active 0.25 mg tablet BY MOUTH 4 6 TIMES A DAY FOR 30 DAYS SINGULAIR 10 mg TAKE 1 TABLET 0 Active tablet BY MOUTH EVERY 6 DAY mupirocin Apply 22 g 0 Active (BACTROBAN) 2% topically to 2 ointmentIndications: affected Squamous cell area(s) twice carcinoma of nose daily. OneTouch Verio test daily. 0 Active strips strp 2 cyclobenzaprine daily as 0 Acti ve (FLEXERIL) 10 mg needed. 2 tablet amLODIPine (NORVASC) Take 5 mg by 0 Active 5 mg tablet mouth daily. ferrous sulfate 325 Take 325 mg by 0 02/05 Active mg (65 mg elemental mouth daily. 2 23 iron per tablet) tablet docusate sodium daily. 0 Acti ve (Colace) 100 mg 8 capsule omega [id number] Take 2,000 mg 0 Active oil 1,000 mg (120 by mouth mg-180 mg) cap daily. predniSONE daily. 0 Active (DELTASONE) 2.5 mg 2 tablet sertraline (ZOLOFT) daily. 0 Active 50 mg tablet 2 sertraline (ZOLOFT) daily. 0 Active 50 mg tablet ALPRAZolam (XANAX) 4 (four) times 0 Active 0.5 mg tablet a day. finasteride daily. 0 Active (PROSCAR) 5 mg 2 tablet calcium daily. 0 Active [id number] no.[id number] (Alive Calcium-Vitamin D3) 260 mg calcium- 25 mcg-50 mg chew cranberry 400 mg cap daily. 0 Active docusate sodium 100 daily. 0 Active mg/5 mL enem 8 pravastatin TAKE ONE 2 03/17/20 Disconti nued (PRAVACHOL) 40 mg TABLET BY 6 22 (T herapy tablet MOUTH IN THE complet ed) LATE EVENING DAILY. 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 Clinical Support Kevin Nicolas MD Squa mous cell carcinoma of nose (Primary Dx); Neoplasm of unc ertain behavior of skin; Actinic keratos is 03/17/2022 Travel 03/17/2022 Orders Only Uday Mccloud MD Squamous cell carcinoma of nose (Primar y Dx) 02/24/2022 Procedure visit Kevin Nicolas MD Squam ous cell carcinoma of skin of ignacio k 02/24/2022 Travel 02/20/2022 Telephone Hortensia Nair RN 02/17/2022 Telephone Dermatology Albin Fierro 02/16/2022 [...] carcinoma of nose (Primar y Dx) after 09/20/2021 Social History Tobacco Use Types Packs/Day Years Used Date Smoking Tobacco: Never Assessed Sex Assigned at Date Recorded Not on file Job Start Date Occupation Industry Not on file Not on file Not on file Last Filed Vital Signs Vital Sign Reading Time Taken Comments Blood Pressure 103/60 03/17/2022 10:34 AM CDT Pulse 77 03/17/2022 10:34 AM CDT Temperature 36.4 C (97.5 F) 03/17/2022 10:34 AM CDT Respiratory Rate 16 03/17/2022 10:34 AM CDT Oxygen Saturation 92% 03/17/2022 10:34 AM CDT Inhaled Oxygen Concentration - - Weight - - Height - - Body Mass Index - - Plan of Treatment Health Maintenance Due Date Last Done Comments COVID-19 Vaccination Completed 06/23/2021, 12/16/2020, , Additional history exists Procedures Procedure Name Priority Date/Time Associated Comments Diagnosis PATHOLOGY BIOPSY Routine 03/17/2022 5:20 PM Resul ts for this INTERPRETATION CDT procedure are in the results section. PATHOLOGY BIOPSY Routine 02/09/2022 11:10 Squamous cell Result s for this INTERPRETATION AM CDT carcinoma of nose procedur e are in the results section. after 09/20/2021 Results Pathology Biopsy Interpretation (03/17/2022 5:20 PM CDT)Only the most recent of2 resultswithin the time period is included. 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 1:28 PM signed by Art Dermal fibrosis and folliculitis. CDT Zuleyma Levine MD on 03/19/2022 at 1:28 PM Gross A: 03/19/2022 [facility] Description skin, right preauricular ch [place]: Two previously inked, campbell skin and shaves, 0.6 x 0.2 x 0.1 cm and 0.6 x 0.3 x 0.2 cm , entirely submitted in A1. ET 1:28 PM CDT Disclaimer "Some tests 03/19/2022 [facility] reported here may 1:28 PM have been CDT developed and performance characteristics determined by [facility]. These tests have not been specifically cleared or approved by the U.S. Food and Drug Administration. If applicable, controls were reviewed and showed appropriate reactivity." Specimen Anatomical Collection Method Collection Time Receive d Time (Source) Location / / Volume Laterality Tissue (Skin) 03/17/2022 5:20 PM 03/18/20 22 1:43 CDT PM CDT Kevin Amaya MD LAB PATHOLOGY ORDERABLES Performing Organization Address City/State/ZIP Code Phon e Number [facility] [place] [address] [address] [place] after 09/20/2021 Insurance Payer Benefit Plan / Subscriber ID Effective Dates Phone Addre ss Type Group MEDICARE MEDICARE PART [id number] 1997-Presen [phone] [facility] Medicare A AND B t 2 SOLUTIONS [address] [place] [address] GENERIC GENERIC [id number] 2008-Presen [phone] [address] [address] PPO MEDICARE t 0 [place], [place] SUP-SECONDARY [address] ONLY Care Teams Vice President Risk Management Relationship Specialty Start Date End Date Kevin Amaya MD PCP - General 11/27/15 [facility] [place] [address] Alejo Saxena MD PCP - External Referring 02/12/14 Alejo Saxena MD PCP - External Follow Up A 02/12/14 Donald Epstein MD PCP - External Follow Up B 03/01/14 [id number] [facility] [address] [place] [address] Kevin Amaya MD Physician 12/04/15 [facility] [place] [address]
--- OUTSIDE RECORDS SUMMARY | 2022-09-20 16:50 | XMS REPORT | Continuity of Care Document ---
:1945 Author Organization [facility] t Address [address] [place] [address] Care Team Providers Name Role Phone [phone] Primary Care Physician Unavailable SYSTEM, PROVIDER NOT IN Attending Clinician Unavailable BENJAMIN AMAYA Attending Clinician Unavailable Kaushik BLANK, Khalida Attending Clinician Minal BLANK, Yash Attending Clinician Asked, No Pcp Attending Clinician Unavailable Daniel BLANK, Margaret Attending Clinician Olya LAWRENCE, Lefty Attending Clinician Unavailable Leo BLANK, Tracy Gutierrez Attending Clinician Dmitri BLANK PhD, Stanley Attending Clinician Haider BLANK, Britney Leach Attending Clinician Sapphire Whaley MA Attending Clinician Unavailable Lapin_S Attending Clinician Unavailable Rebecca Barajas MA Attending Clinician Unavailable Verna BLANK, Uday Attending Clinician Tracy Roman RN Attending Clinician Unavailable Trevon Parikh MD Attending Clinician Hortensia Lane RN Attending Clinician Unavailable Pablo BLANK, Bob Swift Attending Clinician [phone] Albin Duran Attending Clinician Yeimy BLANK, Nicole Elise Attending Clinician Lucero Veronica MA Attending Clinician Unavailable Gabe BLANK, Jackelyn Attending Clinician Jaime Sun Attending Clinician [phone] Kwasi LAWRENCE, Paty Chaidez Attending Clinician Unavailable Edelmira Gallo MA Attending Clinician Unavailable Jason LAWRENCE, Miranda Attending Clinician Unavailable Sai BLANK, Patricio Attending Clinician Angus LAWRENCE, Clarisa Attending Clinician Unavailable Vero Moreland MA Attending Clinician Unavailable Boaz Ibarra MD Attending Clinician Rut BLANK, Yariel Turner Attending Clinician Smooth Brasher MD Attending Clinician Diego Jaime RN, Mahogany Attending Clinician Unavailable Soha Duran MD Attending Clinician India Blank MD Attending Clinician [phone] Pebbles Venegas MD Attending Clinician Trenton Zendejas MD Attending Clinician MD [place] BLANK Attending Clinician UnavailRob Hodges Attending Clinician Unavailable Musa Ray RN Attending Clinician Unavailable Geraldine Braun MD Attending Clinician DHARMESH DANIELS Attending Clinician Unavailable MAYURI FRIEND Attending Clinician Unavailable MD MAYURI FRIEND Attending Clinician Unavailable RIGOBERTO BOOGIE Attending Clinician Unavailable Nurse, Adc Pob Immunization Attending Clinician Unavailable Rigoberto Boogie DO Attending Clinician MAGNUS RUFF Attending Clinician Unavailable OPHELIA VILLAGRAN Attending Clinician Unavailable RAKAN MURCIA Attending Clinician Unavailable FAMILIA NOLEN Attending Clinician Unavailable Doctor Unassigned, [place] Attending Clinician Unavailable YAZ GALARZA Attending Clinician Unavailable LINDSEY RITTER Attending Clinician Unavailable Radiology Attending Clinician Unavailable JELLY MCMULLEN Attending Clinician Unavailable Viri Lo Attending Clinician BENJAMIN AMAYA Attending Clinician Unavailable Lapin_S Admitting Clinician Unavailable SOHA DURAN Admitting Clinician Unavailable MD SOHA DURAN Admitting Clinician Unavailable YAZ GALARZA Admitting Clinician Unavailable JELLY MCMULLEN Admitting Clinician Unavailable Viri Lo Admitting Clinician Payers Payer Name Policy Type Policy Number Effective Date Expiration Date S [place] MEDICARE PART A AND [id number] 1997 B 00:00:00 MEDICARE B-[place]: [id number] 1997 LTG Exam Prep Platform 00:00:00 [facility] [id number] [facility] (MEDICARE REPLACEMENT O) MEDICARE PART A \\T\\ [id number] 1997-12-26 B 00:00:00 COMMERCIAL [id number] 2008-12-26 NON-CONTRACT 00:00:00 GENERIC Problems Condition Condition Condition Status Onset Resolution Last Treating Co mments Source Name Details Category Date Date Treatment Clinician Date Abrasion Abrasion Disease Active 2021-09 Metho di of left of left 2-16 st upper arm upper arm 00:00: [facility]osp [facility] 00 l Acidosis Acidosis Disease Active 2021-09 Metho di 2-16 st 00:00: Hospita 00 l Acute Acute Disease Active 2021-09 Methodi kidney kidney 2-16 st failure, failure, 00:00: Hospit a unspecifie unspecifie 00 l d d Acute pain Acute pain Disease Active 2021-09 M ethodi due to due to 2-16 st trauma trauma 00:00: Hospita 00 l Acute Acute Disease Active 2021-09 Methodi posthemorr posthemorr 2-16 st hagic hagic 00:00: Hospita anemia anemia 00 l Aneurysm Aneurysm Disease Active 2021-09 Metho di of iliac of iliac 2-16 st artery artery 00:00: Hospita 00 l Fall on Fall on Disease Active 2021-09 Methodi and from and from 2-16 st ladder, ladder, 00:00: Hospita initial initial 00 l encounter encounter Hyperkalem Hyperkalem Disease Active 2021-09 M ethodi ia ia 2-16 st 00:00: Hospita 00 l Hypoxemia Hypoxemia Disease Active 2021-09 Met hodi 2-16 st 00:00: Hospita 00 l 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 a coli (E. 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 5-17 st of biliary of biliary 00:00: Ho spita tract tract 00 l Benign Benign Disease Active Methodi prostatic prostatic 5-16 st hyperplasi hyperplasi 00:00: Ho spita a with a with 00 l urinary urinary obstructio obstructio n n Urge Urge Disease Active Methodi incontinen incontinen 5-16 st ce of ce of 00:00: Hospita urine urine 00 l 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 11/18 Liver BXLiver mass, right lobe, CT-guided core needle biopsies: - Invasive adenocarc inoma, moderatel y different iated;com patible with intrahepa tic cholangio carcinoma (see Comment)- Single small focus of carcinoma spanning 0.1 cm at tip of core biopsyLashae palacios MD Endovascu lar Radiology [phone] - Y20 radioembo lization treatment in December MRI+ 6.1 cm mass & Mass in liver dx as hepatocel lular carcinoma Bone Scan- no metastasi s noted CKD CKD Disease Active Methodi (chronic (chronic 2-16 st kidney kidney 00:00: Hospita disease) disease) 00 l stage 3, stage 3, GFR 30-59 GFR 30-59 ml/min ml/min Pneumonia Pneumonia Disease Active 2020-09 Met hodi 2-17 st 00:00: Hospita 00 l Impaired Impaired Disease Active 2020-09 Metho di gait and gait and 217 st mobility mobility 00:00: Hospit a 00 l Emphysema Emphysema Disease Active 2020-09 Met hodi lung lung 2-17 st 00:00: Hospita 00 l Multifocal Multifocal Disease Active 2020-09 M ethodi pneumonia pneumonia 2-10 st 00:00: Hospita 00 l Osteopenia Osteopenia Disease Active M ethodi of of 05-07 st multiple multiple 00:00: Hospit a sites sites 00 l Vitamin D Vitamin D Disease Active Met hodi deficiency deficiency 8-11 st 00:00: Hospita 00 l Headaches Headaches Disease Active Overview: Methodi due to old due to old 04-[address] head head 00:00: g of this Hospita injury injury 00 note l might be different from the original. Followed by Neurology Post 2017 fall with concussio n and subsequen t memory losses. Head Head Disease Active Overview: Method i injury injury [address] 00:00: g of this Hospita 00 note l might be different from the original. April 07, 2018 was on an 8 inch ladder and the ladder slipped sideways and pt fell with it.Hit his head on theconcre te, broke 8 ribs and punctured R lung Heart Heart Disease Active Overview: Method i replaced replaced 10-[address] by by 00:00: g of this [facility] transplant transplant 00 note l might be different from the original. Added automatic ally from request for surgery [id number] Cardiac Cardiac Disease Active Overview: Meth susan allograft allograft 10-27 Formattin s t vasculopat vasculopat 00:00: g of this [facility] hy hy 00 note l might be different from the original. Added automatic ally from request for surgery [id number] Subclinica Subclinica Disease Active M ethodi l l 06-20 st hypothyroi hypothyroi 00:00: Ho spita dism dism 00 l Traumatic Traumatic Disease Active Met hodi hemopneumo hemopneumo 04-29 thorax, thorax, 00:00: Hospita initial initial 00 l encounter encounter MULTIPLE MULTIPLE Diagnosis Active 2018-04-27 Memoria RIGHT RIGHT 04-07 22:11:00 l SIDED RIB SIDED RIB 00:00: Herm kris FX FX Active 04/07/2018 [facility] GO GO Diagnosis Active 2018-04-07 Memoria BILLING/ BILLING/ 04-07 23:03:00 l LFLT #3435 LFLT #3435 00:00: He rmann Active 04/07/2018 [facility] Diarrhea Diarrhea Disease Active Metho di [address] st 00:00: Hospita 00 l Cellulitis Cellulitis Disease Active M ethodi 423 st 00:00: Hospita 00 l Chest pain Chest pain Disease Active 2016-09 M ethodi 1-09 st 00:00: Hospita 00 l Controlled Controlled Disease Active M ethodi type [address] diabetes diabetes 00:00: Hospit a mellitus mellitus 00 l with with diabetic diabetic nephropath nephropath y, with y, with long-term long-term current current use of use of insulin insulin Malignant Malignant Disease Active Met hodi hypertensi hypertensi 16 st ve heart ve heart 00:00: Hospit a and kidney and kidney 00 l disease disease with CKD with CKD stage V stage V Essential Essential Disease Active Overview: Methodi hypertensi hypertensi 8-[address] on on 00:00: g of this Hospita 00 note l might be different from the original. Labetlol 200 / 200 / 300Amlodi pine 5 mg Isosorbid e mono 30 mg dailyAspi rin 81Pravast atin 80Diureti c:Demadex 40 T, TH, Sat, SuDemedex 60 on M,W, FMetolazo ne 2.5 Prn up to 3 times a week Long-term Long-term Disease Active Overview: Methodi use of use of 05-11 Formattin immunosupp immunosupp 00:00: g of this Hospita ressant ressant 00 note is l medication medication different from the original. Rapamune intoleran ce. 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 Diabetic/ hyperlipi demia/ost eopenia Followed by Dr. 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 Gabapenti n 300 mg TID Disorder Disorder Disease Active Metho di of heart of heart 02-25 transplant transplant 00:00: Ho spita ation ation 00 l High High Disease Active Methodi Lipase Lipase 02-25 Level in Level in 00:00: Hospit a Serum Serum 00 l Kidney Kidney Disease Active Methodi disorder disorder 02-25 00:00: Hospita 00 l Low back Low back Disease Active Metho di pain pain 02-25 00:00: Hospita 00 l Obstructiv Obstructiv Disease Active M ethodi e sleep e sleep 02-25 apnea apnea 00:00: Hospita syndrome syndrome 00 l Pain of Pain of Disease Active Overview: Meth susan lower lower 02-[address] extremity extremity 00:00: g of this H ospita 00 note l might be different from the original. Chronic in natureNeu ropathic and associate d with chronic back & hip & siatica Abnormal Abnormal Disease Active Metho di thyroid thyroid 02-25 stimulatin stimulatin 00:00: Ho spita g hormone g hormone 00 l (TSH) (TSH) level level Chronic Chronic Disease Active Overview: Meth susan kidney kidney 11-[address] disease, disease, 00:00: g of this Hos sayda stage V stage V 00 note l might be different from the original. Dr. Kohler -RenalDem adex 40 T, TH, Sat, SuDemedex 60 on M,W, FMetolazo ne 2.5 Prn up to 3 times a week Disorder Disorder Disease Active Metho di of of 11-14 endocrine endocrine 00:00: Hosp [facility] system system 00 l Heart Heart Disease Active Overview: Method i transplant transplant 11-14 Formattin ed ed 00:00: g of this Hospita 00 note is l different from the original. 09/29/2006 Heart Transplan tFK 1 mg Q 12; Prednison e 5Does not tolerate Rapamune. Failed prednison e wean.Visi t Date biopsy C4D Treatment Echo CMV Level Annual Year 12 11/21/18 [facility] clear BNP 155, SCr 1.87, GFR 34, Chol 141,osteo penia, clear coronarie s on cath 60-64 neg 6.6 Clinic 01/09/19 Post local HOSP (5 days) Influenza & pneumonia [id number]; SCr 1.89 3.8 Clinic 02/06/19 C/O memory [...] follow up with Chrissy Maloney Ho, & dermatolo gy EF 70%Pos Cw5 neg 4.7 12/27/19 Patient treated as out pt. For fluid over-load . Zaroxolyn 5mg x2 days and pt doing better GI Notes 02/08/20 EGD & [place] Performed ; multiple polyps but no carcinoma Delayed stomach emptying noted. Additiona l testing for gastropar esis ordered. 05/20/20 Clinic Clinic 07/09/20 BNP 206, Scr 1.78/GFR 36 Torsemide increased ; Keflex 500 BID 10 day for rt. Leg laceratio n; Refer Podiatris t B. Selbst <2.0 Year 14Annual 03/04/21 Card PET BNP 129, Scr 2.17/GFR 28: Chol 157, HA1c 6.8Card PET - Normal function 65-70% neg 5.6 on 0.5 BID Clinic 08/25/21 C/O fatigue BNP 115, Scr 1.64 / GFR 60 BP fluctuati onsr/t extra salt intake: alt 2.5 /5 mg amlodipin e 2.5 BP i BP<140 neg 3.3 0.5 BID [facility]mit [facility] Pt 09/05/21 Transf [facility] Pneumonia - RPP human metapneum ovirus Liver BX 11/26/21Ap ril 22 CA Tx c Rad BX Positive for hepatocel lular carcinoma Y20 radioembo lization treatment in December 2021 02/25/22 Scr 1.81/ GFR 35 MRI+ 6.1 cm mass & Mass in liver dx as hepatocel lular carcinoma Bone Scan- no metastasi s noted HLD HLD Disease Active Overview: Method i (hyperlipi (hyperlipi 2-[address] demia) demia) 00:00: g of this Hospita 00 note l might be different from the original. 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:00: Hospita carcinoma) carcinoma) 00 l , face , face Candidiasi Candidiasi Disease Active 2011-09 M ethodi s of mouth s of mouth 11-03 st 00:00: Hospita 00 l Esophagiti Esophagiti Disease Active 2011-09 M ethodi s s 11-03 st 00:00: Hospita 00 l Ulcer of Ulcer of Disease Active 2011-09 Metho di esophagus esophagus 11-03 st 00:00: Hospita 00 l Abdominal Abdominal Disease Active Met hodi pain pain 03-03 00:00: Hospita 00 l Candidiasi Candidiasi Disease Active M ethodi s of s of 03-03 esophagus esophagus 00:00: [facility]osp [facility] 00 l Gastroesop Gastroesop Disease Active M ethodi hageal hageal 03-03 reflux reflux 00:00: Hospita disease disease 00 l Acute Acute Problem 2018-11-05 Memor ia kidney kidney 13:12:34 l failure, failure, Brent huggins unspecifie unspecifie d d 11/05/2018 [facility] Acute Acute Problem 2018-11-05 Memor ia posthemorr posthemorr 13:12:34 l karan Quevedo anemia anemia 11/05/2018 [facility] Heart Heart Problem 2018-11-05 Memor ia 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:12:34 l status status Sae 11/05/2018 [facility] Urinary Urinary Problem 2018-11-05 Ne moria tract tract 13:12:34 l infection, infection, He rmann site not site not specified specified 11/05/2018 [facility] Atelectasi Atelectas Problem 2018-11-05 Memoria s is 13:12:34 l 11/05/2018 Brent huggins [facility] Fall on Fall on Problem 2018-11-05 Me moria and from and from 13:12:34 l ladder, ladder, Sae initial initial encounter encounter 11/05/2018 [facility] 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 13:12:34 l mellitus mellitus Brent huggins 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 11/05/2018 [facility] Abrasion Abrasion Problem 2018-11-05 Memoria of left of left 13:12:34 l upper arm, upper arm, He rmann initial initial encounter encounter 11/05/2018 [facility] Hyperlipid Hyperlipi Problem 2018-11-05 Memoria emia, demia, 13:12:34 l unspecifie unspecifie He rmann d d 11/05/2018 [facility] Traumatic Traumatic Problem 2018-11-05 Memoria subcutaneo subcutaneo 13:12:34 l us us [place] emphysema, emphysema, initial initial encounter encounter 11/05/2018 [facility] Acute pain Acute Problem 2018-11-05 M emoria due to pain due 13:12:34 l trauma to trauma [place] 11/05/2018 [facility] intermodal dispatcher assisted Problem 2018-11-05 Memoria (current) (current) 13:12:34 l use of use of [place] insulin insulin 11/05/2018 [facility] Hypoxemia Hypoxemia Problem 2018-11-05 Memoria 13:12:34 l 9 [facility] Unspecifie Unspecifi Problem 2018-11-05 Memoria d ed 13:12:34 l [place] [facility] a coli [E. a coli [E. coli] as coli] as the cause the cause of of diseases diseases classified classified elsewhere elsewhere 11/05/2018 [facility] Aneurysm Aneurysm Problem 2018-11-05 Memoria of iliac of iliac 13:12:34 l artery artery [place] 11/05/2018 [facility] Thoracic Thoracic Problem 2018-11-05 Memoria aortic aortic 13:12:34 l ectasia ectasia [place] 11/05/2018 [facility] Gastro-eso Gastro-es Problem 2018-11-05 Memoria phageal ophageal 13:12:34 l reflux reflux [place] disease disease without without esophagiti esophagiti s s 11/05/2018 [facility] Hyperkalem Hyperkale Problem 2018-11-05 Memoria ia mor 13:12:34 l 11/05/2018 Brent huggins [facility] Diarrhea, Diarrhea, Problem 2018-11-05 Memoria unspecifie unspecifie 13:12:34 l d d [place] 11/05/2018 [facility] Contusion Contusion Problem 2018-11-05 Memoria of of 13:12:34 l abdominal abdominal Herm kris wall, wall, initial initial encounter encounter 11/05/2018 [facility] MULTIPLE MULTIPLE Diagnosis Active 2018-04-27 Memoria FRACTURES FRACTURES 22:11:00 l OF RIBS, OF RIBS, Brent huggins UNSP SIDE, UNSP SIDE, I I Active [facility] Multiple Multiple Problem 2018-11-05 Memoria fractures fractures 13:12:34 l of ribs, of ribs, Brent huggins right right side, side, initial initial encounter encounter for closed for closed fracture fracture 11/05/2018 [facility] Hypertensi Hypertens Problem 2018-11-05 Memoria ve heart tricia heart 13:12:34 l Ryland chronic chronic kidney kidney disease disease with heart with heart failure failure and stage and stage 1 through 1 through stage 4 stage 4 chronic chronic kidney kidney disease, disease, or or unspecifie unspecifie d chronic d chronic kidney kidney disease disease 11/05/2018 [facility] Chronic Chronic Problem 2018-11-05 Me moria kidney kidney 13:12:34 l disease, disease, Brent huggins stage 4 stage 4 (severe) (severe) 11/05/2018 [facility] Contusion Problem 2018-11-05 Me moria of lung, Contusion 13:12:34 l unilateral of lung, Vlad ponce , initial unilateral encounter , initial encounter 11/05/2018 [facility] Acidosis Acidosis Problem 2018-11-05 Memoria 11/05/2018 13:12:34 l [facility] [place] Unspecifie Unspecifi Problem 2018-11-05 Memoria d fracture ed 13:12:34 l of T9-T10 fracture Mallorie nn vertebra, of T9-T10 initial vertebra, encounter initial for closed encounter fracture for closed fracture 11/05/2018 [facility] No known No known Disease [place] active active Health problems problems History of Past Illness Condition Condition Condition Status Onset Resolution Last Treating Co mments Source Name Details Category Date Date Treatment Clinician Date Traumatic Traumatic Problem 2017-0 2018-11-05 2018-11-05 Memrosalina hemopneumo hemopneumo - 13:12:34 13:12:34 l thorax, thorax, 03:07: Sae initial initial 22 encounter encounter 04/29/2018 11/05/2018 [facility] Allergies, Adverse Reactions, Alerts Allergy Allergy Status Severity Reaction(s) Onset Inactive Treating Comm ents Source Name Type Date Date Clinician Adhesive Drug Active Other (See 2017-[address] Tape Allergy Comments) 2-19 SKIN. [place] Luke s 00:00: WITH Medical 00 PAPER Center Adhesive Propensi Active Other (See 2017-09 TEARS Un christian Tape-Nai ty to Comments) 2-19 [place]. [place] ity of icones adverse 00:00: WITH [place] reaction 00 PAPER MD suzanne huggins [facility] Adhesive Propensi Active Other (See 2017-09 TEARS Me thodi Tape-Nai ty to Comments) 2-[address] [place] [address] icones adverse 00:00: WITH Hospita reaction 00 PAPER l s to drug Wound Drug Active Unknown 2017-09 TEARS [place] Dressing Allergy 2-19 [place]. [place] Healt h Adhesive 00:00: WITH 00 PAPER Sirolimu Propensi Active 2015-09 Univer s s ty to 1-10 ity of adverse 00:00: [place] reaction 00 MD suzanne huggins [facility] Sirolimu Propensi Active Swelling 2015-09 Meth susan s ty to 1-10 st adverse 00:00: Hospita reaction 00 l s to drug SIROLIMU DRUG Active 2015-09 MD Palacios INGREDKrishan 1-10 Anderso 00:00: n 00 NO KNOWN Drug Active Univers ALLERGIE Class ity of S [facility] Rapamune Allergy Active Hernandez to [place] substanc Urology e Family History Family Member Diagnosis Comments Start Date Stop Date Source Natural brother Heart disease Method [facility] Natural brother No Known Problems [facility] Natural daughter Hypertension Method [facility] Natural daughter Colon cancer Method [facility] Heart disease [facility] Natural mother Diabetes [facility] Natural mother Heart disease [facility] [place] Natural sister Hypertension [facility] Natural son No Known Problems Method [facility] Social History Social Habit Start Date Stop Date Quantity Comments Source History of tobacco Current smoker [facility] use Hospital History SDOH [facility] Frequency [facility]ospita l History SDOH [facility] Alcohol intake 2022-09-02 2022-09-02 Current drinker Metho dist 00:00:00 00:00:00 of alcohol Hospital (finding) Exposure to 2022-02-14 2022-02-24 Not sure University SARS-CoV-2 (event) 00:00:00 10:24:00 [facility] [place] Cigarettes smoked 2021-10-30 2021-10-[address] current (pack per 00:00:00 00:00:00 Hospita l day) - Reported Cigarette 2021-10-30 2021-10-30 [facility] pack-years 00:00:00 00:00:00 Hospital Alcohol Comment 2021-02-18 2021-02-18 A beere once or Meth odist 00:00:00 00:00:00 twice a month Hospital History SDOH 2020-10-03 2020-10-03 1 [facility] Alcohol Std Drinks 00:00:00 00:00:00 Hospit al Tobacco Comment 2019-04-10 2019-04-10 used to smoke 1 Meth odist 00:00:00 00:00:00 ppd not since [facility] 1987 Tobacco use and 2018-09-15 2018-09-[address] [facility] kes exposure 00:00:00 00:00:00 [facility] Sex Assigned At [address] [facility] kesuzanne 00:00:00 [facility] Sm[facility] Status Start Date Stop Date Source [facility] Unknown if ever smoked [facility] Social History [facility] Medications Ordered Filled Start Stop Current Ordering Indication Dosage Frequency Signature Comments Components Source Medication Medication Date Date Medication? Clinician (SIG) Name Name allopurinoL 2021-09 Yes TAKE 1 Meth susan (ZYLOPRIM) 2-[address] 100 MG 00:00: MOUTH Hospita tablet 00 TWICE A l DAY ALPRAZolam 2021-09 Yes .5mg QD Take 0.5 Met hodi (XANAX) 0.5 0-[address] MG tablet 13:23: mouth Hospita 38 nightly as l needed for sleep or anxiety. aspirin 2021-09 Yes 81mg QD Take 81 mg Meth susan (ECOTRIN) 0-[address] 81 MG 13:23: daily. Hospita enteric 38 l coated tablet calcium 2021-09 Yes 1{tbl} Q.5D Take 1 Method i carbonate-v 0-[address] itamin D3 13:23: mouth 2 Hospi ta 600 38 (two) l mg(1,500mg) times a -200 unit day with per tablet meals. tamsulosin 2021-09 Yes .4mg QD Take 0.4 Met hodi (FLOMAX) 0-[address] 0.4 mg 13:23: mouth Hospita capsule,ext 38 nightly. l ended release 24hr omega 2021-09 Yes 2000mg Q.5D Take 2,000 Meth susan 3-dha-epa-f 0-[address] juancarlos oil 13:23: mouth 2 Hospita 1,000 mg 38 (two) l (120 mg-180 times a mg) capsule day. thiamine 2021-09 Yes 100mg QD Take 100 Meth susan 100 MG 0-[address] tablet 13:23: mouth Hospita 38 daily. l finasteride 2021-09 Yes 5mg QD Take 5 mg M ethodi (PROSCAR) 5 0-[address] mg tablet 13:23: nightly. Hosp ramiro 38 l HYDROcodone 2021-09 Yes [id number] 1{tbl} Q6H Take 1 M ethodi -acetaminop 0-[address] hen (NORCO) 13:23: mouth Hospi ta 5-325 mg 38 every 6 l per tablet (six) hours as needed for moderate pain .acute pain. metOLazone 2021-09 Yes 2.5mg Take 1 Meth susan (ZAROXOLYN) 0-[address] 2.5 MG 13:23: (2.5 mg Hospita tablet 38 total) by l mouth as needed. Weight gain of 3 lbs calcium 2021-09 Yes Take by Methodi carbonate 0-[address] (CALCIUM 13:23: Hospita 600 ORAL) 38 l NovoLIN 2021-09 Yes INJECT Methodi 70/30 U-100 0-[address] Insulin 100 00:00: SKIN 12 Hos sayda unit/mL 00 UNITS l (70-30) EVERY injection MORNING AND 20 UNITS EVERY EVENING potassium Yes TAKE 2 Method i chloride 9-[address] (K-DUR) 10 00:00: MOUTH Hospit a MEQ CR 00 EVERY DAY l tablet potassium 2021- No TAKE 2 Metho di chloride 06-04 09-[address] (K-DUR) 10 00:00: 00:00 MOUTH Hospi ta MEQ CR 00 :00 EVERY DAY l tablet gabapentin 0 Yes 400mg Q.[id number] Take 400 Methodi (NEURONTIN) 7-17 [id number] mg by s t 400 mg 00:00: 3D mouth 3 Hospita capsule 00 (three) l times a day. insulin Yes [id number] INJECT M ethodi syringe-nee 04-[address] dle U-100 00:00: DAY Hospita (BD Insulin 00 l Syringe Ultra-Fine) 0.5 mL 31 gauge x 5/16" syringe insulin 2021- No [id number] INJECT Methodi syringe-nee 03-[address] dle U-100 00:00: 00:00 DAY Hospita (BD Insulin 00 :00 l Syringe Ultra-Fine) 0.5 mL 31 gauge x 5/16" syringe ALPRAZolam Yes 4 (four) Uni vers (XANAX) 0.5 6-21 times a ity o f mg tablet 11:03: day. MD [facility] calcium Yes daily. Univers phos-D3-her 6-21 ity of bal no.293 11:03: [place] (Alive Calcium-Vit Margot rosas D3) n 260 mg Cancer calcium- 25 Center mcg-50 mg chew cranberry Yes daily. Univer s 400 mg cap 6-21 ity of 11:03: MD [facility] amLODIPine Yes 5mg Take 5 mg Un christian (NORVASC) 5 6-21 by mouth ity of mg tablet 11:03: daily. MD [facility] omega 2021-0 Yes 2000mg Take 2,000 Univ ers 3-dha-epa-f 6-21 mg by ity of juancarlos oil 11:03: mouth [place] 1,000 mg 00 daily. (120 mg-180 Anderso mg) [facility] sertraline 0 Yes daily. Unive rs (ZOLOFT) 50 6-21 ity of mg tablet 11:03: [place] 00 MD [facility] cyclobenzap 0 Yes daily as Un christian rine 6-13 needed. ity of (FLEXERIL) 00:00: [place] 10 mg 00 tablet [facility] tacrolimus 0 Yes [id number] TAKE 1 Methodi (PROGRAF) 6-[address] 0.5 MG 00:00: MOUTH 2 Hospita capsule 00 TIMES A l DAY. OneTouch 0 Yes [id number] USE Me thodi Verio test [address] strips 00:00: TIMES A Hospita strip test 00 DAY l strips finasteride 0 Yes daily. Univ ers (PROSCAR) 5 5-31 ity of mg tablet 00:00: [place] [facility] sert[facility] 0 Yes daily. Unive rs (ZOLOFT) 50 5-24 ity of mg tablet 00:00: [place] 00 [facility] sertraline 0 Yes [id number] 50mg QD Take 1 Methodi (ZOLOFT) 50 5-24 tablet (50 st MG tablet 00:00: mg total) Hos sayda 00 by mouth l daily. sertraline 0 2021- No 50mg QD Take 1 Meth susan (ZOLOFT) 50 5-24 05-24 tablet (50 s t MG tablet 00:00: 00:00 mg total) Ho spita 00 :00 by mouth l daily. isosorbide 0 Yes TAKE 1 Metho di mononitrate 5-[address] (IMDUR) 30 00:00: MOUTH Hospit a MG 24 hr 00 EVERY DAY l tablet blood sugar 0 Yes [id number] USE Methodi diagnostic 5-[address] strips 00:00: TIMES A Hospita (OneTouch 00 DAYDX l Verio test CODE: strips) E08.22 strip test strips hydrocodone hydrocodone 0 No hydrocodon Hernandez 10 10 5-17 e 10 [facility] mg-acetamin mg-acetamin 00:00: mg-acetami Urology ophen 325 ophen 325 00 nophen 325 mg tablet mg tablet mg tablet TAKE 1 TAKE 1 TAKE 1 TABLET BY TABLET BY TABLET BY MOUTH EVERY MOUTH EVERY MOUTH 4 HOURS 4 HOURS EVERY 4 NEEDED FOR NEEDED FOR HOURS MODERATE TO MODERATE TO NEEDED FOR SEVERE PAIN SEVERE PAIN MODERATE TO SEVERE PAIN prednisone prednisone No prednisone Hernandez 5 mg tablet 5 mg tablet 5-17 5 mg M etro TAKE 1 TAKE 1 00:00: tablet Urology TABLET (5 TABLET (5 00 TAKE 1 MG TOTAL) MG TOTAL) TABLET (5 BY MOUTH BY MOUTH MG TOTAL) DAILY. DAILY. BY MOUTH Z94.1 HEART Z94.1 HEART DAILY. TRANSPLANT TRANSPLANT Z94.1 S/P S/P HEART TRANSPLANT S/P mupirocin Yes Squamous Apply Uni vers (BACTROBAN) 5-16 cell topically ity of 2% ointment 00:00: [place] 00 of nose affected MD area(s) Andfarhat twice n daily. Cancer [place] mupirocin Yes Squamous Apply Uni vers (BACTROBAN) 5-16 cell topically ity of 2% ointment 00:00: [place] 00 of nose affected MD area(s) Anderso twice n daily. Cancer Center ferrous 2021- No 325mg QD Take 325 Meth susan sulfate 325 5-12 05-[address] (65 FE) MG 16:38: 00:00 mouth Hospi ta tablet 12 :00 daily with l breakfast. ferrous 2022- No 325mg Take 325 Univ ers sulfate 325 5-12 05-13 mg by ity of mg (65 mg 00:00: 04:59 mouth [place] elemental 00 :00 daily. iron per Anderso tablet) n tablet Cancer [place] ferrous 2022- No 325mg QD Take 1 Method i sulfate 325 5-12 05-[address] (65 FE) MG 00:00: 04:59 (325 mg Hos sayda tablet 00 :00 total) by l mouth daily with breakfast. tacrolimus Yes .5mg Take 0.5 Uni vers (PROGRAF) 5-10 mg by ity of 0.5 mg 14:51: mouth. [place] capsule 12 MD [facility] mycophenola Yes Take by Uni vers te 5-10 mouth. ity of (CELLCEPT) 14:51: [place] 500 mg 12 tablet [facility] predniSONE Yes 5mg Take 5 mg Un christian (DELTASONE) 5-10 by mouth. ity of 5 mg tablet 14:51: [place] [id number] [facility] aspirin 81 Yes 81mg Take 81 mg U nivers mg EC 5-10 by mouth. ity of tablet 14:51: [place] 12 [facility] calcium Yes 1{tbl} Take 1 Univer s carbonate-v 5-10 tablet by ity of itamin D3 14:51: mouth. [place] 1,250 mg 12 (500 mg as Anderso elemental)- n 200 units Cancer tablet [place] multivitami Yes 1{tbl} Take 1 Un christian n 5-10 tablet by ity of (THERAGRAN) 14:51: [place]. [place] tab tablet 12 [facility] thiamine Yes 100mg Take 100 Univ ers (VITAMIN 5-10 mg by ity of B-1) 100 mg 14:51: [place]. [place] tablet 12 [facility] omega-3 Yes 1g Take 1 g Univer s acid ethyl 5-10 by mouth. ity of esters 14:51: [place] (LOVAZA) 1 12 MD g capsule [facility] magnesium Yes 400mg Take 400 Uni vers oxide 5-10 mg by ity of (MAOX) 400 14:51: mouth. [place] mg tablet 12 [facility] allopurinol Yes 100mg Take 100 U nivers (ZYLOPRIM) 5-10 mg by ity of 100 mg 14:51: mouth. [place] tablet 12 [facility] amLODIPine Yes 5mg Take 5 mg Un christian (NORVASC) 5 5-10 by mouth. ity of mg tablet 14:51: [place] [address] [facility] esomeprazol Yes 40mg Take 40 mg Univers e (NexIUM) 5-10 by mouth. ity of 40 MG 14:51: [place] capsule 12 [facility] gabapentin Yes 300mg Take 300 Un christian (NEURONTIN) 5-10 mg by ity of 300 mg 14:51: mouth. [place] capsule 12 [facility] metOLazone Yes 2.5mg Take 2.5 Un chritsian (ZAROXOLYN) 5-10 mg by ity of 2.5 mg 14:51: mouth. [place] tablet 12 [facility] isosorbide Yes 30mg Take 30 mg U nivers mononitrate 5-10 by mouth. ity of (IMDUR) 30 14:51: [place] mg 24 hr 12 tablet [facility] tacrolimus Yes .5mg Take 0.5 Uni vers (PROGRAF) 5-10 mg by ity of 0.5 mg 14:51: mouth. [place] capsule 12 [facility] mycophenola Yes Take by Uni vers te 5-10 mouth. ity of (CELLCEPT) 14:51: [place] 500 mg 12 tablet [facility] predniSONE Yes 5mg Take 5 mg Un christian (DELTASONE) 5-10 by mouth. ity of 5 mg tablet 14:51: [place] [address] [facility] aspirin 81 Yes 81mg Take 81 mg U nivers mg EC 5-10 by mouth. ity of tablet 14:51: [place] 12 [facility] calcium Yes 1{tbl} Take 1 Univer s carbonate-v 5-10 tablet by ity of itamin D3 14:51: mouth. [place] 1,250 mg 12 (500 mg as Anderso elemental) n 200 units Cancer tablet [place] multivitami Yes 1{tbl} Take 1 Un christian n 5-10 tablet by ity of (THERAGRAN) 14:51: mouth. [place] tab tablet 12 [facility] thiamine Yes 100mg Take 100 Univ ers (VITAMIN 5-10 mg by ity of B-1) 100 mg 14:51: [place]. [place] tablet 12 [facility] omega-3 2022-0 Yes 1g Take 1 g Univer s acid ethyl 5-10 by mouth. ity of esters 14:51: [place] (LOVAZA) 1 12 g capsule [facility] magnesium Yes 400mg Take 400 Uni vers oxide 5-10 mg by ity of (MAOX) 400 14:51: mouth. [place] mg tablet 12 [facility] allopurinol Yes 100mg Take 100 U nivers (ZYLOPRIM) 5-10 mg by ity of 100 mg 14:51: mouth. [place] tablet 12 [facility] amLODIPine Yes 5mg Take 5 mg Un christian (NORVASC) 5 5-10 by mouth. ity of mg tablet 14:51: [place] 12 [facility] esomeprazol Yes 40mg Take 40 mg Univers e (NexIUM) 5-10 by mouth. ity of 40 MG 14:51: [place] capsule 12 [facility] gabapentin Yes 300mg Take 300 Un christian (NEURONTIN) 5-10 mg by ity of 300 mg 14:51: mouth. [place] capsule 12 [facility] metOLazone Yes 2.5mg Take 2.5 Un christian (ZAROXOLYN) 5-10 mg by ity of 2.5 mg 14:51: mouth. [place] tablet 12 [facility] isosorbide Yes 30mg Take 30 mg U nivers mononitrate 5-10 by mouth. ity of (IMDUR) 30 14:51: [place] mg 24 hr 12 tablet [facility] predniSONE 2021-2021- No 5mg QD Take 5 mg M ethodi (DELTASONE) 01-[address] 5 mg tablet 13:58: 00:00 daily. Hos sayda 13 :00 l predniSONE 2021-2022- No 5mg QD Take 1 Meth susan (DELTASONE) 01-26-03 tablet (5 st 5 mg tablet 00:00: 04:59 mg total) Hospita 00 :00 by mouth l daily. Z94.1 HEART TRANSPLANT S/P predniSONE 0 Yes daily. Unive rs (DELTASONE) 4-21 ity of 2.5 mg 00:00: [place] tablet 00 [facility] predniSONE 2021-2022- No 7.5mg QD Take 3 Met hodi (DELTASONE) 01-15-[address] 2.5 mg 00:00: 04:59 (7.5 mg Hospita tablet 00 :00 total) by l mouth daily. Z94.1 Heart Transplant S/P tacrolimus 2021-0 2021- No [id number] .5mg Q.5D Take 1 Methodi (PROGRAF) 01-12 06-[address] 0.5 MG 00:00: 00:00 (0.5 mg Hospita capsule 00 :00 total) by l mouth 2 (two) times a day. aspirin Yes 81mg 81 mg. [place] (ASPIRIN) 4-08 Health 81 MG 08:39: chewable 08 tablet aspirin Yes 81mg 81 mg. [place] (ASPIRIN) 408 Health 81 MG 08:39: chewable 08 tablet aspirin Yes 81mg 81 mg. [place] (ASPIRIN) 08 Health 81 MG 08:39: chewable 08 tablet OneTouch Yes daily. [facility] test 3-28 ity of strips strp 00:00: [place] 00 [facility] Yes TAKE 1 Method i oxide 3-[address] (MAG-OX) 00:00: MOUTH Hospita 400 mg 00 TWICE A l (241.3 mg DAY magnesium) tablet amLODIPine 2022- No 5mg QD Take 1 Meth susan (NORVASC) 5 11-16 tablet (5 st mg tablet 00:00: 05:59 mg total) Ho spita 00 :00 by mouth l daily. Pt. tittrating between 2,5 and 5 mg based on BP and renal function pravastatin Yes 80mg QD Take 1 Meth susan (PRAVACHOL) 2- tablet (80 st 80 MG 00:00: mg total) Hospita tablet 00 by mouth l daily. torsemide 0 2022- No 40mg QD Take 2 Metho di (DEMADEX) 2- 02-[address] 20 MG 00:00: 05:59 (40 mg Hospita tablet 00 :00 total) by l mouth daily. tacrolimus 2021- No [id number] TAKE 1 [facility]i (PROGRAF) 10-[address] 0.5 MG 00:00: 00:00 MOUTH Hospita capsule 00 :00 TWICE A l DAY pravastatin 2021- No TAKE 1 Met hodi (PRAVACHOL) 10-[address] 80 MG 00:00: 00:00 MOUTH Hospita tablet 00 :00 EVERY DAY l folic acid 2022- No 1mg QD Take 1 Meth susan (FOLVITE) 1 10-16 tablet (1 st MG tablet 00:00: 05:59 mg total) Ho spita 00 :00 by mouth l daily. sertraline 2021- No [id number] TAKE 1 Methodi (ZOLOFT) 50 10-[address] MG tablet 00:00: 00:00 MOUTH Hospit a 00 :00 EVERY DAY l predniSONE 2020-09 No 7.5mg QD Take 3 Met hodi (DELTASONE) 11-[address] 2.5 mg 00:00: 00:00 (7.5 mg Hospita tablet 00 :00 total) by l mouth daily for 30 days. benzonatate 2020-09 No 200mg Q.[id number] Take 1 [facility]i (TESSALON) 11-[id number] 200 MG 00:00: 00:00 3D (200 mg Hospita capsule 00 :00 total) by l mouth 3 (three) times a day as needed for cough. labetaloL 2020-09 No 50mg Q.5D Take 0.5 Met hodi (NORMODYNE) 11-[address] 100 MG 00:00: 00:00 (50 mg Hospita tablet 00 :00 total) by l mouth 2 (two) times a day for 30 days. arformotero 2020-09- No [id number] 15ug Q.5D Take 2 mL Methodi L (BROVANA) 11-13 ([address] 15 mcg/2 mL 00:00: 05:59 total) by Hospita solution 00 :00 nebulizati l for on 2 (two) nebulizatio times a n day for 30 days. guaiFENesin 2020-09- No 600mg Q.5D Take 1 Me thodi (MUCINEX) 11-[address] 600 mg 00:00: 05:59 (600 mg Hospita tablet 00 :00 total) by l extended mouth 2 release (two) 12hr times a day for 30 days. fluticasone 2020-09- No 1{puff} Q.5D Inhale 1 Methodi propionate 11-[address] (Flovent 00:00: 05:59 (two) Hospita HFA) 220 00 :00 times a l mcg/actuati day for 30 on inhaler days. allopurinoL 2020-09- No TAKE 1 Met hodi (ZYLOPRIM) 10-[address] 100 MG 00:00: 00:00 MOUTH Hospita tablet 00 :00 TWICE A l DAY insulin 2020-09- No [id number] DX 11.654 Methodi syringe-nee 10-[address] dle U-100 00:00: 00:00 INJECT Hospi ta (BD Insulin 00 :00 TWICE l Syringe DAILY Ultra-Fine) 0.5 mL 31 gauge x 5/16" syringe OneTouch Yes DX E11.65 Meth susan Delica Plus 9-[address] Lancet 33 00:00: TIMES Hospita gauge misc 00 DAILY l NovoLIN 2021- No INJECT Methodi 70/30 U-100 05-16- UNDER THE st Insulin 100 00:00: 00:00 SKIN 12 Ho spita unit/mL 00 :00 UNITS l (70-30) EVERY injection MORNING AND 20 UNITS EVERY EVENING gabapentin 2021- No [id number] 300mg Q.[id number] Take 1 [facility]i (NEURONTIN) 04-[id number] 300 mg 00:00: 04:59 3D (300 mg Hospita capsule 00 :00 total) by l mouth 3 (three) times a day. folic acid 2021- No TAKE 1 Meth susan (FOLVITE) 1 04-22 01-[address] MG tablet 00:00: 00:00 MOUTH Hospit a 00 :00 EVERY DAY l sertraline 2021- No [id number] 50mg QD Take 1 Methodi (ZOLOFT) 50 04-16- tablet (50 s t MG tablet 00:00: 00:00 mg total) Ho spita 00 :00 by mouth l daily. blood sugar 2021- No [id number] USE Methodi diagnostic 03-20 05-[address] strips 00:00: 00:00 TIMES A Hospita (OneTouch 00 :00 DAY l Verio test strips) strip test strips aspirin Yes 81mg 81 mg. [place] (ASPIRIN) 03-07 Health 81 MG 09:42: chewable 24 tablet isosorbide 2021- No 30mg QD Take 1 Meth susan mononitrate 11-25 05-20 tablet (30 s t (IMDUR) 30 00:00: 00:00 mg total) H ospita MG 24 hr 00 :00 by mouth l tablet daily. amLODIPine 2021- No 5mg QD Take 1 Meth susna (NORVASC) 5 11-25 tablet (5 st mg tablet 00:00: 00:00 mg total) Ho spita 00 :00 by mouth l daily. magnesium 2021- No TAKE 1 Metho di oxide 212-[address] (MAG-OX) 00:00: 00:00 MOUTH Hospita 400 mg 00 :00 TWICE A l (241.3 mg DAY magnesium) tablet pravastatin 2021- No TAKE 1 Met hodi (PRAVACHOL) 210-[address] 80 MG 00:00: 00:00 MOUTH Hospita tablet 00 :00 EVERY DAY l tacrolimus 2021- No .5mg Q.5D Take 1 Meth susan (PROGRAF) 10-[address] 0.5 MG 00:00: 00:00 (0.5 mg Hospita capsule 00 :00 total) by l mouth 2 (two) times a day. Z94.1 Heart Txp S/P traMADol Yes 50mg Take 50 mg Met hodi (ULTRAM) 50 4-[address] mg tablet 00:00: as needed. Ho spita 00 l tacrolimus 2019-0 Yes .5mg Q.5D Take 0.[address] (PROGRAF) 1-25 mg [facility] 0.5 MG 14:56: mouth 2 Medical capsule 08 (two) Center times daily. predniSONE 2019-0 Yes 5mg QD Take [address] (DELTASONE) 1-25 by mouth Luke s 5 MG tablet 14:56: daily. Medi jacquelyn 08 [place] torsemide 20190 Yes 40mg QD Take [address] (DEMADEX) 1-25 by mouth [facility] 20 MG 14:56: daily. Medical tablet 08 [place] MULTIVITAMI 20190 Yes Take by [facility] N ORAL 1-25 mouth. [facility] 14:56: Medical 08 [place] labetalol 2019-0 Yes 100mg Q.5D Take [address] (NORMODYNE) 1-25 mg by [facility] 100 MG 14:56: mouth 2 Medical tablet 08 (two) Center times daily. potassium 20190 Yes 10meq QD Take [address] chloride SA 1-25 mEq by [facility] (K-DUR,KLOR 14:56: mouth Medic al -CON) 10 08 daily. [place] MEQ tablet magnesium 2018-0 Yes 400mg Q.5D Take [address] oxide 1-25 mg by [facility] (MAG-OX) 14:56: mouth 2 Medica l 400 mg 08 (two) Center (241.3 mg times magnesium) daily. tablet metOLazone 0 Yes 2.5mg Take 2.[address] (ZAROXOLYN) 1-25 mg by [facility] 2.5 MG 14:56: mouth as Medical tablet 08 needed. [place] pravastatin 0 Yes 80mg QD Take [address] (PRAVACHOL) 1-25 by mouth Luke s 80 MG 14:56: nightly. Medical tablet 08 [place] montelukast 20190 Yes 10mg Take [address] (SINGULAIR) 1-25 by mouth Luke s 10 mg 14:56: as needed. Medica l tablet 08 [place] tamsulosin 0 Yes .4mg QD Take 0.[address] (FLOMAX) 1-25 mg by [facility] 0.4 mg Cap 14:56: mouth Medica l 24 hr 08 daily. [place] capsule traMADol 0 Yes 50mg Take [address] (ULTRAM) 50 1-25 by mouth Luke s mg tablet 14:56: every 6 Medic al 08 (six) Center hours as needed for Pain. fesoterodin 2019-0 Yes QD Take by [facility] e (TOVIAZ) 1-25 mouth [facility] 4 mg 24 hr 14:56: daily. Medic al tablet 08 Center amLODIPine 2019-0 Yes 5mg QD Take [address] (NORVASC) 5 1-25 by mouth Luke s MG tablet 14:56: daily. Medica l [address] [place] [address] folic acid 2018-0 Yes 1mg QD Take [address] (FOLVITE) 1 1-25 by mouth Luke s MG tablet 14:56: daily. Medica l [address] [place] [address] aspirin 81 2019-0 Yes 81mg QD Take [address] MG EC 1-25 by mouth [facility] tablet 14:56: daily. Medical 07 Center esomeprazol 2018-0 Yes 20mg Q.5D Take [address] e (NEXIUM) 1-25 by mouth 2 [place] es 20 MG 14:56: (two) Medical capsule 07 times Center daily. allopurinol 2018-0 Yes 100mg Q.5D Take [address] (ZYLOPRIM) 1-25 mg by [facility] 100 MG 14:56: mouth 2 Medical tablet 07 (two) Center times daily. ALPRAZolam 2019-0 Yes .5mg Take 0.[address] (XANAX) 0.5 1-25 mg by [facility]ukes MG tablet 14:56: mouth Medical 07 every Center night as needed for Anxiety. ferrous 2019-0 Yes 325mg Take 325 [facility] sulfate 325 1-25 mg by [facility] (65 FE) MG 14:56: mouth Medica l tablet 07 daily with Center breakfast. gabapentin 2019-0 Yes 300mg Q.[id number] Take [address] (NEURONTIN) 1-25 [id number] mg by L ukes 300 MG 14:56: 3D mouth 3 Medical capsule 07 (three) Center times daily. isosorbide 2019-0 Yes 30mg QD Take [address] dinitrate 1-25 by mouth [facility]ukes (ISORDIL) 14:56: daily. Medica l 30 MG 07 Center tablet insulin 2018-[address] [facility] aspart 1-25 subcutaneo Lukes protamine-i 14:56: usly 2 Medi jacquelyn nsulin [...] (PROSCAR) 5 1-25 by mouth Luke s mg tablet 14:56: daily. Medica l 07 Center gabapentin Yes 300 mg = 1 M emoria 300 MG Oral 7-23 cap, PO, l Capsule 22:48: BID, # 28 Mallorie nn 00 cap, 0 Refill(s) gabapentin Yes 300 mg = 1 M emoria 300 MG Oral 7-23 cap, PO, l Capsule 22:48: BID, # 28 Mallorie nn 00 cap, 0 Refill(s) gabapentin Yes 300 mg = 1 M emoria 300 MG Oral 7-23 cap, PO, l Capsule 22:48: BID, # 28 Mallorie nn 00 cap, 0 Refill(s) methocarbam No 1,000 mg = Memoria ol 500 mg 7-23 2 tab, PO, l oral tablet 22:44: Q8H, X 14 H ermann 00 day, # 84 tab, 0 Refill(s) Lidocaine Yes 1 patch, Shine sarah 0.05 MG/MG -23 TOP, Q24H, l Transdermal 22:44: # 14 [...] for 00 ea, 0 reconstitut Refill(s) ion methocarbam No 1,000 mg = Memoria ol [...] for 00 ea, 0 reconstitut Refill(s) ion methocarbam No 1,000 mg = Memoria ol 500 mg -23 2 tab, PO, l oral tablet 22:44: Q8H, X 14 H ermann 00 day, # 84 tab, 0 Refill(s) Lidocaine Yes 1 patch, Shine sarah 0.05 MG/MG - TOP, Q24H, l Transdermal 22:44: # 14 [...] 00 and grapefruit juice. (Same As: Prograf) Tacrolimus No Notes: Memor ia 7-23 Avoid l 04:07: grapefruit [place] 00 and grapefruit juice. (Same As: Prograf) Tacrolimus No Notes: Memor ia 7-23 Avoid l 04:07: grapefruit [place] 00 and grapefruit juice. (Same As: Prograf) docusate Yes daily. Univers sodium 7-23 ity of (Colace) 00:00: [place] 100 mg 00 capsule [facility] docusate Yes daily. Univers sodium 100 7-23 ity of mg/5 mL 00:00: [place] enem 00 [facility] Methadone No Notes: Memori a 7-22 (Same as: l 21:00: Dolophine) Sae 00 Methadone No Notes: Memori a 7-22 (Same as: l 21:00: Dolophine) Sae 00 Methadone No Notes: Memori a 7-22 (Same as: l 21:00: Dolophine) Sae 00 Prograf No Notes: Memoria 7-22 (Same As: l 13:00: Prograf) Gravette 00 Prograf No Notes: Memoria 7-22 (Same As: l 13:00: Prograf) Sae 00 Prograf No Notes: Memoria 7-22 (Same As: l 13:00: Prograf) Sae 00 remove No Notes: Memoria patch 7-22 Remove l 11:00: patch 12 [place] 00 hours after applicatio n each day. remove No Notes: Memoria patch 7-22 Remove l 11:00: patch 12 Sae 00 hours after applicatio n each day. remove No Notes: Memoria patch 7-22 Remove l 11:00: patch 12 Sae 00 hours after applicatio n each day. Prograf No Notes: Memoria 7-22 (Same As: l 01:00: Prograf) [place] Prograf No Notes: Memoria 7-22 (Same As: l 01:00: Prograf) Sae Prograf No Notes: Memoria 7-22 (Same As: l 01:00: Prograf) [place] Lidocaine No 1 patch, Shine sarah 0.05 MG/MG 7-21 Route: l Transdermal 23:00: TOP, Q24H, [place] Patch 00 Drug form: FILM, Start date: 04/16/18 18:00:00 CDT, Duration: 30 day, Stop date: 05/15/18 18:00:00 CDT tramadol No Notes: Not Mem oria hydrochlori 7-21 to exceed l de 50 MG 23:00: 400mg/day. Her aguirre Oral Tablet 00 (Same As: Ultram) Lidocaine No 1 patch, Shine sarah 0.05 MG/MG 7-21 Route: l Transdermal 23:00: TOP, Q24H, Sae Patch 00 Drug form: FILM, Start date: 04/16/18 18:00:00 CDT, Duration: 30 day, Stop date: 05/15/18 18:00:00 CDT tramadol No Notes: Not Mem oria hydrochlori 7-21 to exceed l de 50 MG 23:00: 400mg/day. Her aguirre Oral Tablet 00 (Same As: Ultram) Lidocaine No 1 patch, Shine sarah 0.05 MG/MG 7-21 Route: l Transdermal 23:00: TOP, Q24H, [place] Patch 00 Drug form: FILM, Start date: 04/16/18 18:00:00 CDT, Duration: 30 day, Stop date: 05/15/18 18:00:00 CDT tramadol No Notes: Not Mem oria hydrochlori 7-21 to exceed l de 50 MG 23:00: 400mg/day. Her aguirre Oral Tablet 00 (Same As: Ultram) gabapentin No Notes: Memor ia 100 MG Oral 7-21 (Same as: l Capsule 22:00: Neurontin) Herm kris gabapentin No Notes: Memor ia 100 MG Oral 7-21 (Same as: l Capsule 22:00: Neurontin) Herm kris gabapentin No Notes: Memor ia 100 MG Oral 7- (Same as: l Capsule 22:00: Neurontin) kris Fosfomycin No Notes: Memor ia 7-20 (Same as: l 17:00: Monural) Sae 00 mix w/ 90 to 120 ml (3 to 4 ounces) of water and stir to dissolve. Do not use hot water. Take immediatel y after dissolving in water. Methadone No Notes: Memori a 7-20 (Same as: l 17:00: Dolophine) Fosfomycin No Notes: Memor ia 7-20 (Same as: l 17:00: Monural) Sae mix w/ 90 to 120 ml (3 to 4 ounces) of water and stir to dissolve. Do not use hot water. Take immediatel y after dissolving in water. Methadone No Notes: Memori a 7-20 (Same as: l 17:00: Dolophine) Fosfomycin No Notes: Memor ia 7-20 (Same as: l 17:00: Monural) Sae mix [...] be chewed or crushed. (Same as: Protonix) Protonix No Notes: Memoria 7-19 Tablet l 21:30: should not Sae 00 be chewed or crushed. (Same as: Protonix) Protonix No Notes: Memoria 7-19 Tablet l 21:30: should not Sae 00 be chewed or crushed. (Same as: Protonix) Methadone No Notes: Memori a 7-19 (Same as: l 18:00: Dolophine) Sae 00 Methadone No Notes: Memori a 7-19 (Same as: l 18:00: Dolophine) Gravette 00 Methadone No Notes: Memori a 7-19 (Same as: l 18:00: Dolophine) Simethicone No Notes: Shine sarah 7-19 (Same as: l 01:35: Mylicon) Simethicone No Notes: Shine sarah 7-19 (Same as: l 01:35: Mylicon) Simethicone No Notes: Shine sarah 7-19 (Same as: l 01:35: Mylicon) Isolyte S No Notes: Memori a PH-7.4 7-18 (Same as: l (Bolus) IV 15:44: Isolyte S He rmann 00 PH7.4) Isolyte S No Notes: Memori a PH-7.4 7-18 (Same as: l (Bolus) IV 15:44: Isolyte S He rmann 00 PH7.4) Isolyte S No Notes: Memori a PH-7.4 7-18 (Same as: l (Bolus) IV 15:44: Isolyte S He rmann 00 PH7.4) multivitami No 1 tab, PO, Memoria n 7-18 Daily l 14:26: [place] multivitami 0 No 1 tab, PO, Memoria n 7-18 Daily l 14:26: Sae multivitami 0 No 1 tab, PO, Memoria n 7-18 Daily l 14:26: Sae 00 Isolyte S No Notes: Memori a PH-7.4 7-18 (Same as: l (Bolus) IV 10:06: Isolyte S He rmann 00 PH 7.4) Isolyte S No Notes: Memori a PH-7.4 7-18 (Same as: l (Bolus) IV 10:06: Isolyte S He rmann 00 PH 7.4) Isolyte S No Notes: Memori a PH-7.4 7-18 (Same as: l (Bolus) IV 10:06: Isolyte S He rmann 00 PH 7.4) magnesium No Notes: Memori a citrate 7-18 (Same as: l 58.2 MG/ML 02:31: Citrate of H ermann Oral 00 Magnesia) Solution Concentrat ion: 1.745 gm / 30 mL magnesium No Notes: Memori a citrate 7-18 (Same as: l 58.2 MG/ML 02:31: Citrate of H ermann Oral 00 Magnesia) Solution Concentrat ion: 1.745 gm / 30 mL magnesium No Notes: Memori a citrate 7-18 (Same as: l 58.2 MG/ML 02:31: Citrate of H ermann Oral 00 Magnesia) Solution Concentrat ion: 1.745 gm / 30 mL molasses No Notes: Memoria 7-17 (Same l 22:21: as:Molasse [place] 00 s) molasses No Notes: Memoria 7-17 (Same l 22:21: as:Molasse Sae 00 s) molasses No Notes: Memoria 7-17 (Same l 22:21: as:Molasse Sae 00 s) Flomax No Notes: Memoria 7-17 (Same As: l 22:00: Flomax) Gravette 00 "Do Not Crush" Flomax No Notes: Memoria 7-17 (Same As: l 22:00: Flomax) Gravette 00 "Do Not Crush" Flomax No Notes: Memoria 7-17 (Same As: l 22:00: Flomax) Gravette 00 "Do Not Crush" Dulcolax No Notes: Memoria Laxative 7-17 (Same As: l 21:27: Dulcolax, Sae 00 Bisco-Lax) Dulcolax No Notes: Memoria Laxative 7-17 (Same As: l 21:27: Dulcolax, Sae 00 Bisco-Lax) Dulcolax No Notes: Memoria Laxative 7-17 (Same As: l 21:27: Dulcolax, Sae 00 Bisco-Lax) remove No Notes: Memoria patch 7-17 Remove l 19:05: patch 12 Gravette 00 hours after applicatio n each day. remove No Notes: Memoria patch 7-17 Remove l 19:05: patch 12 Sae 00 hours after applicatio n each day. remove No Notes: Memoria patch - Remove l 19:05: patch 12 Sae 00 hours after applicatio n each day. Fosfomycin No Notes: Memor ia 7 (Same as: l 17:00: Monural) Sae 00 mix w/ 90 to 120 ml (3 to 4 ounces) of water and stir to dissolve. Do not use hot water. Take immediatel y after dissolving in water. Lidocaine No Notes: Memori a Hydrochlori 04-12 Apply only l de 0.05 17:00: once for Brent n MG/MG 00 up to 12 Transdermal hours in a Patch 24-hour [Lidoderm] period (12 hours on and 12 hours off). (Same as: Lidoderm) "Remove old patch before applicatio n of new patch" Fosfomycin No Notes: Memor ia 04-12 (Same as: l 17:00: Monural) Sae 00 mix w/ 90 to 120 ml (3 to 4 ounces) of water and stir to dissolve. Do not use hot water. Take immediatel y after dissolving in water. Lidocaine No Notes: Memori a Hydrochlori 04-12 Apply only l de 0.05 17:00: once for Brent n MG/MG 00 up to 12 Transdermal hours in a Patch 24-hour [Lidoderm] period (12 hours on and 12 hours off). (Same as: Lidoderm) "Remove old patch before applicatio n of new patch" Fosfomycin No Notes: Memor ia 04-12 (Same as: l 17:00: Monural) Sae 00 mix w/ 90 to 120 ml (3 to 4 ounces) of water and stir to dissolve. Do not use hot water. Take immediatel y after dissolving in water. Lidocaine No Notes: Memori a Hydrochlori 04-12 Apply only l de 0.05 17:00: once for Brent n MG/MG 00 up to 12 Transdermal hours in a Patch 24-hour [Lidoderm] period (12 hours on and 12 hours off). (Same as: Lidoderm) "Remove old patch before applicatio n of new patch" Oxycodone No Notes: Memori a Hydrochlori 7-17 (Same as: l de 5 MG 15:29: Roxicodone Herm kris Oral Tablet 00 ) Oxycodone No Notes: Memori a Hydrochlori 7-17 (Same as: l de 5 MG 15:29: Roxicodone Herm kris Oral Tablet 00 ) Oxycodone No Notes: Memori a Hydrochlori 7-17 (Same as: l de 5 MG 15:29: Roxicodone Herm kris Oral Tablet ) gabapentin No Notes: Memor ia 100 MG Oral 7-16 (Same as: l Capsule 21:00: Neurontin) Herm kris gabapentin No Notes: Memor ia 100 MG Oral 7-16 (Same as: l Capsule 21:00: Neurontin) Herm kris gabapentin No Notes: Memor ia 100 MG Oral 7-16 (Same as: l Capsule 21:00: Neurontin) Herm kris 00 Flomax No Notes: Memoria 7-16 (Same As: l 13:30: Flomax) Sae 00 "Do Not Crush" Flomax No Notes: Memoria 7-16 (Same As: l 13:30: Flomax) Sae 00 "Do Not Crush" Flomax No Notes: Memoria 7-16 (Same As: l 13:30: Flomax) Sae "Do Not Crush" sennosides, No Notes: Shine sarah HALFWAY 7-15 (Same as: l 22:00: Senokot) Sae Miralax No Notes: Memoria 7-15 Dissolve l 22:00: in 8 oz of Gravette 00 water or juice. (Same as: Miralax) sennosides, No Notes: Shine sarah HALFWAY 7-15 (Same as: l 22:00: Senokot) Gravette Miralax No Notes: Memoria 7-15 Dissolve l 22:00: in 8 oz of Grav[place] 00 water or juice. (Same as: Miralax) sennosides, No Notes: Shine sarah HALFWAY 7-15 (Same as: l 22:00: Senokot) Sae Miralax No Notes: Memoria 7-15 Dissolve l 22:00: in 8 oz of Sae water or juice. (Same as: Miralax) Oxycodone No Notes: Memori a Hydrochlori 7-15 (Same as: l de 5 MG 17:00: Roxicodone Herm kris Oral Tablet ) Bupivacaine No Notes: Shine sarah liposome 7-15 (Same as: l 17:00: Exparel) Sae NOT FOR IV use Postoperat tricia analgesia: [...] (total dose = 30 mL [266 mg]) Oxycodone No Notes: Memori a Hydrochlori 7-15 (Same as: l de 5 MG 17:00: Roxicodone Herm kris Oral Tablet ) Bupivacaine No Notes: Shine sarah liposome 7-15 (Same as: l 17:00: Exparel) Gravette 00 NOT FOR IV use Postoperat tricia [...] (total dose = 30 mL [266 mg]) Oxycodone No Notes: Memori a Hydrochlori 7-15 [...] Laxative 7-15 (Same As: l 16:54: Dulcolax, Gravette 00 Bisco-Lax) Dulcolax No Notes: Memoria Laxative 7-15 (Same As: l 16:54: Dulcolax, Gravette 00 Bisco-Lax) Dulcolax No Notes: Memoria Laxative 7-15 (Same As: l 16:54: Dulcolax, Sae 00 Bisco-Lax) Alprazolam No Notes: Memor ia 0.5 MG Oral 7-15 With food l Tablet 16:37: or milk Gravette [Xanax] 00 (Same as: Xanax) Alprazolam No Notes: Memor ia 0.5 MG Oral 7-15 With food l Tablet 16:37: or milk Ase [Xanax] 00 (Same as: Xanax) Alprazolam No Notes: Memor ia 0.5 MG Oral 7-15 With food l Tablet 16:37: or milk Gravette [Xanax] 00 (Same as: Xanax) Aspirin 81 No Notes: Do Me moria MG Enteric 7-15 not crush l Coated 14:00: or chew. Sae Tablet 00 (Same As: Ecotrin) sennosides, No Notes: Shine sarah HALFWAY 7-15 (Same as: l 14:00: Senokot) Sae 00 Miralax No Notes: Memoria 7-15 Dissolve l 14:00: in 8 oz of Sae 00 water or juice. (Same as: Miralax) Imdur No Notes: Memoria 7-15 (Same l 14:00: as:Imdur) Gravette "Do Not Crush" Take on empty stomach/ full glass of water. Do not crush torsemide No Notes: Memori a 7-15 (Same As: l 14:00: Demadex) Sae 00 Aspirin 81 No Notes: Do Me moria MG Enteric 7-15 not crush l Coated 14:00: or chew. Gravette Tablet 00 (Same As: Ecotrin) sennosides, No Notes: Shine sarah HALFWAY 7-15 (Same as: l 14:00: Senokot) Sae 00 Miralax No Notes: Memoria 7-15 Dissolve l 14:00: in 8 oz of Gravette 00 water or juice. (Same as: Miralax) Imdur No Notes: Memoria 7-15 (Same l 14:00: as:Imdur) Gravette "Do Not Crush" Take on empty stomach/ full glass of water. Do not crush torsemide No Notes: Memori a 7-15 (Same As: l 14:00: Demadex) Sae 00 Aspirin 81 No Notes: Do Me moria MG Enteric 7-15 not crush l Coated 14:00: or chew. Gravette Tablet 00 (Same As: Ecotrin) sennosides, No Notes: Shine sarah HALFWAY 7-15 (Same as: l 14:00: Senokot) Sae 00 Miralax No Notes: Memoria 7-15 Dissolve l 14:00: in 8 oz of Sae 00 water or juice. (Same as: Miralax) Imdur No Notes: Memoria 7-15 (Same l 14:00: as:Imdur) Gravette "Do Not Crush" Take on empty stomach/ full glass of water. Do not crush torsemide No Notes: Memori a 7-15 (Same As: l 14:00: Demadex) Sae Alprazolam No Notes: Memor ia 0.5 MG Oral 7-15 With food l Tablet 03:31: or milk [place]ette [Xanax] 00 (Same as: Xanax) Alprazolam No Notes: Memor ia 0.5 MG Oral 7-15 With food l Tablet 03:31: or milk [place] [Xanax] 00 (Same as: Xanax) Alprazolam No Notes: Memor ia 0.5 MG Oral 7-15 With food l Tablet 03:31: or milk [place] [Xanax] 00 (Same as: Xanax) Pravastatin No Notes: Shine sarah 7-15 (Same as: l 02:00: Pravachol) Pravastatin No Notes: Shine sarah 7-15 (Same as: l 02:00: Pravachol) Pravastatin No Notes: Shine sarah 7-15 (Same as: l 02:00: Pravachol) Sulfamethox No Notes: One Memoria azole 800 7-14 DS tablet l MG / 22:28: = Grav[place] Trimethopri 00 trimethopr m 160 MG im 160mg + Oral Tablet sulfametho [Bactrim] xazole 800 mg Dose based on trimethopr im component On empty stomach with a glass of water. (Same As: Bactrim DS, Septra DS) Sulfamethox No Notes: One Memoria azole 800 7-14 DS tablet l MG / 22:28: = Sae Trimethopri 00 trimethopr m 160 MG im 160mg + Oral Tablet sulfametho [Bactrim] xazole 800 mg Dose based on trimethopr im component On empty stomach with a glass of water. (Same As: Bactrim DS, Septra DS) Sulfamethox No Notes: One Memoria azole 800 [...] (Same as: l MG Oral 22:00: Colace) Gravette Capsule 00 (Do Not [Colace] Crush) Docusate No Notes: Memoria Sodium 100 7-14 (Same as: l MG Oral 22:00: Colace) Sae Capsule 00 (Do Not [Colace] Crush) Docusate No Notes: Memoria Sodium 100 7-14 (Same as: l MG Oral 22:00: Colace) [place] Capsule 00 (Do Not [Colace] Crush) Oxycodone No Notes: Memori a Hydrochlori 7-14 (Same as: l de 5 MG 21:00: Roxicodone Herm kris Oral Tablet 00 ) Oxycodone No Notes: Memori a Hydrochlori 7-14 (Same as: l de 5 MG 21:00: Roxicodone Herm kris Oral Tablet 00 ) Oxycodone No Notes: Memori a Hydrochlori 7-14 (Same as: l de 5 MG 21:00: Roxicodone Herm kris Oral Tablet 00 ) Lasix No Notes: Memoria 7-14 (Same as: l 17:05: Lasix) Sae Lasix No Notes: Memoria 7-14 (Same as: l 17:05: Lasix) Gravette Lasix No Notes: Memoria 7-14 (Same as: l 17:05: Lasix) Sae Oxycodone No Notes: Memori a Hydrochlori 7-14 (Same as: l de 5 MG 17:02: Roxicodone Herm kris Oral Tablet 00 ) Oxycodone No Notes: Memori a Hydrochlori 7-14 (Same as: l de 5 MG 17:02: Roxicodone Herm kris Oral Tablet 00 ) Oxycodone No Notes: Memori a Hydrochlori 7-14 (Same as: l de 5 MG 17:02: Roxicodone Herm kris Oral Tablet 00 ) torsemide No 20 mg, Memori a 7-14 Route: l 17:00: IVPB, [place] 00 ONCE, Dosing Weight 87.273, kg, Priority: NOW, Start date: 04/09/18 12:00:00 CDT, Stop date: 04/09/18 12:00:00 CDT torsemide 2018-0 No 20 mg, Memori a 7-14 Route: l 17:00: IVPB, [place] 00 ONCE, Dosing Weight 87.273, kg, Priority: NOW, Start date: 04/09/18 12:00:00 CDT, Stop date: 04/09/18 12:00:00 CDT torsemide No 20 mg, Memori a 7-14 Route: l 17:00: IVPB, Sae 00 ONCE, Dosing Weight 87.273, kg, Priority: NOW, Start date: 04/09/18 12:00:00 CDT, Stop date: 04/09/18 12:00:00 CDT Dulcolax No Notes: Memoria Laxative 7-14 (Same As: l 15:36: Dulcolax, [place] 00 Bisco-Lax) Dulcolax No Notes: Memoria Laxative 7-14 (Same As: l 15:36: Dulcolax, Sae 00 Bisco-Lax) Dulcolax No Notes: Memoria Laxative 7-14 (Same As: l 15:36: Dulcolax, Sae 00 Bisco-Lax) Labetalol No Notes: Memori a 7-14 With food. l 15:29: (Same as:Trandat e, Normodyne) Labetalol No Notes: Memori a 7-14 With food. l 15:29: (Same as:Trandat e, Normodyne) Labetalol No Notes: Memori a 7-14 With food. l 15:29: (Same as:Trandat e, Normodyne) Insulin 0 No 60 units) Shine sarah regular 7-14 WASTE: F/P l 15:22: - Black; E - Municipal Trash Bin Stable for 28 days at room temperatur e Expires in days from ____Date Glucagon 0 No 1 mg, Memoria 7-14 Route: IM, l 15:22: Drug form: PDR/INJ, PRN, Dosing Weight 87.273, kg, PRN Blood Glucose Results, Start date: 04/09/18 10:22:00 CDT, Duration: 30 day, Stop date: 05/09/18 10:21:00 CDT Dextrose 2018-0 No 25 gm, 50 Shine sarah 50% Syringe 7-14 mL, Route: l 15:22: IVP, Drug Form: INJ, Dosing Weight 87.273, kg, PRN, PRN Blood Glucose Results, Start date: 04/09/18 10:22:00 CDT, Duration: 30 day, Stop date: 05/09/18 10:21:00 CDT Insulin 2018-0 No 60 units) Shine sarah regular 7-14 WASTE: F/P l 15:22: - Black; E - Municipal Trash Bin Stable for 28 days at room temperatur e Expires in days from ____Date Glucagon 2018-0 No 1 mg, Memoria 7-14 Route: IM, l 15:22: Drug form: Sae 00 PDR/INJ, PRN, Dosing Weight 87.273, kg, PRN Blood Glucose Results, Start date: 04/09/18 10:22:00 CDT, Duration: 30 day, Stop date: 05/09/18 10:21:00 CDT Dextrose 2018-0 No 25 gm, 50 Shine sarah 50% Syringe 7-14 mL, Route: l 15:22: IVP, Drug Form: INJ, Dosing Weight 87.273, kg, PRN, PRN Blood Glucose Results, Start date: 04/09/18 10:22:00 CDT, Duration: 30 day, Stop date: 05/09/18 10:21:00 CDT Insulin 2018-0 No 60 units) Shine sarah regular 7-14 WASTE: F/P l 15:22: - Black; E - Municipal Trash Bin Stable for 28 days at room temperatur e Expires in days from ____Date Glucagon 2018-0 No 1 mg, Memoria 7-14 Route: IM, l 15:22: Drug form: Sae 00 PDR/INJ, PRN, Dosing Weight 87.273, kg, PRN Blood Glucose Results, Start date: 04/09/18 10:22:00 CDT, Duration: 30 day, Stop date: 05/09/18 10:21:00 CDT Dextrose 2018-0 No 25 gm, 50 Shine sarah 50% Syringe 7-14 mL, Route: l 15:22: IVP, Drug Sae 00 Form: INJ, Dosing Weight 87.273, kg, PRN, PRN Blood Glucose Results, Start date: 04/09/18 10:22:00 CDT, Duration: 30 day, Stop date: 05/09/18 10:21:00 CDT Oxycodone 2017-0 No Notes: Memori a Hydrochlori 7-14 (Same as: l de 5 MG 14:31: Roxicodone Herm kris Oral Tablet 00 ) Oxycodone 2017-0 No Notes: Memori a Hydrochlori 7-14 (Same as: l de 5 MG 14:31: Roxicodone Herm kris Oral Tablet 00 ) Oxycodone 2017-0 No Notes: Memori a Hydrochlori 7-14 (Same as: l de 5 MG 14:31: Roxicodone Herm kris Oral Tablet 00 ) gabapentin 2017-0 No 300 mg, 1 Me moria 300 MG Oral 7-14 cap, l Capsule 13:42: Route: PO, Herm kris 00 ONCE, Dosing Weight 87.273, kg, Start date: 04/09/18 8:42:00 CDT, Stop date: 04/09/18 8:42:00 CDT gabapentin 2018-0 No 300 mg, 1 Me moria 300 MG Oral 7-14 cap, l Capsule 13:42: Route: PO, Herm kris 00 ONCE, Dosing Weight 87.273, kg, Start date: 04/09/18 8:42:00 CDT, Stop date: 04/09/18 8:42:00 CDT gabapentin 2018-0 No 300 mg, 1 Me moria 300 MG Oral 7-14 cap, l Capsule 13:42: Route: PO, Herm kris 00 ONCE, Dosing Weight 87.273, kg, Start date: 04/09/18 8:42:00 CDT, Stop date: 04/09/18 8:42:00 CDT Robaxin 2017-0 No Notes: Memoria 7-14 (Same l 13:00: as:Robaxin Gravette ) Robaxin 2017-0 No Notes: Memoria 7-14 (Same l 13:00: as:Robaxin Sae 00 ) Robaxin No Notes: Memoria 7-14 (Same l 13:00: as:Robaxin [place] 00 ) Tramadol No Notes: Not Mem oria 7-14 to exceed l 09:00: 400mg/day. Sae 00 (Same As: Ultram) Tramadol No Notes: Not Mem oria 7-14 to exceed l 09:00: 400mg/day. Sae 00 (Same As: Ultram) Tramadol No Notes: Not Mem oria 7-14 to exceed l 09:00: 400mg/day. Sae 00 (Same As: Ultram) Streptococc No Notes: Shine sarah us 7-14 Shake well l pneumoniae 03:20: prior to Her aguirre serotype 1 12 use (Same capsular as: antigen Prevnar diphtheria 13) [id number] protein conjugate vaccine / Streptococc us pneumoniae serotype 14 capsular antigen diphtheria [id number] protein conjugate vaccine / Streptococc us pneumoniae serotype 18C capsular antigen d Streptococc No Notes: Shine sarah us 7-14 Shake well l pneumoniae 03:20: prior to Her aguirre serotype 1 12 use (Same capsular as: antigen Prevnar diphtheria 13) [id number] protein conjugate vaccine / Streptococc us pneumoniae serotype 14 capsular antigen diphtheria [id number] protein conjugate vaccine / Streptococc us pneumoniae serotype 18C capsular antigen d Streptococc No Notes: Shine sarah us 7-14 Shake well l pneumoniae 03:20: prior to Her aguirre serotype 1 12 use (Same capsular as: antigen Prevnar diphtheria 13) [id number] protein conjugate vaccine / Streptococc us pneumoniae serotype 14 capsular antigen diphtheria [id number] protein conjugate vaccine / Streptococc us pneumoniae serotype 18C capsular antigen d remove No Notes: Memoria patch 7-13 Remove l 21:00: patch 12 Sae 00 hours after applicatio n each day. remove No Notes: Memoria patch 7-13 Remove l 21:00: patch 12 Gravette 00 hours after applicatio n each day. remove No Notes: Memoria patch 7-13 Remove l 21:00: patch 12 Gravette 00 hours after applicatio n each day. Esomeprazol No 20 mg = 1 M emoria e 20 MG 7-13 cap, PO, l Enteric 17:54: Daily, 0 Brent n Coated 00 Refill(s) Capsule [Nexium] Esomeprazol 2017-0 No 20 mg = 1 M emoria e 20 MG 7-13 cap, PO, l Enteric 17:54: Daily, 0 Brent n Coated 00 Refill(s) Capsule [Nexium] Esomeprazol No 20 mg = 1 M emoria e 20 MG 7-13 cap, PO, l Enteric 17:54: Daily, 0 Brent n Coated 00 Refill(s) Capsule [Nexium] montelukast No 10 mg = 1 M emoria 10 MG Oral 7-13 tab, PO, l Tablet 17:51: PRN, 0 Grav[place] [Singulair] 00 Refill(s) Alprazolam No 0.5 mg = 1 M emoria 0.5 MG Oral 7-13 tab, PO, l Tablet 17:51: Daily, 0 Grav[place] 00 Refill(s) Ferrousal 0 No 325 mg = 1 Me moria 325 mg oral 7-13 tab, PO, l tablet 17:51: Daily, 0 Sae 00 Refill(s) montelukast No 10 mg = 1 M emoria 10 MG Oral 7-13 tab, PO, l Tablet 17:51: PRN, 0 [place] [Singulair] 00 Refill(s) Alprazolam No 0.5 mg = 1 M emoria 0.5 MG Oral 7-13 tab, PO, l Tablet 17:51: Daily, 0 Gravette 00 Refill(s) Ferrousal 0 No 325 mg = 1 Me moria 325 mg oral 7-13 tab, PO, l tablet 17:51: Daily, 0 Gravette 00 Refill(s) montelukast 2017-0 No 10 mg = 1 M emoria 10 MG Oral 7-13 tab, PO, l Tablet 17:51: PRN, 0 Grav[place] [Singulair] 00 Refill(s) Alprazolam No 0.5 mg = 1 M emoria 0.5 MG Oral 7-13 tab, PO, l Tablet 17:51: Daily, 0 Gravette 00 Refill(s) Ferrousal 2017-0 No 325 mg = 1 Me moria 325 mg oral 7-13 tab, PO, l tablet 17:51: Daily, 0 Gravette 00 Refill(s) tamsulosin 2017-0 No 0.4 mg = 1 M emoria 0.4 mg oral 7-13 cap, PO, l capsule 17:49: Daily, 0 Brent n 00 Refill(s) isosorbide 2017-0 No 30 mg = 1 Me moria mononitrate 7-13 tab, PO, l 30 mg oral 17:49: QAM, 0 Mallorei nn tablet, 00 Refill(s) extended release tamsulosin 2017-0 No 0.4 mg = 1 M emoria 0.4 mg oral 7-13 cap, PO, l capsule 17:49: Daily, 0 Brent n 00 Refill(s) isosorbide 2017-0 No 30 mg = 1 Me moria mononitrate 7-13 tab, PO, l 30 mg oral 17:49: QAM, 0 Mallorie nn tablet, 00 Refill(s) extended release tamsulosin 2017-0 No 0.4 mg = 1 M emoria 0.4 mg oral 7-13 cap, PO, l capsule 17:49: Daily, 0 Brent n 00 Refill(s) isosorbide 2017-0 No 30 mg = 1 Me moria mononitrate 7-13 tab, PO, l 30 mg oral 17:49: QAM, 0 Mallorie nn tablet, 00 Refill(s) extended release potassium 2017-0 No 10 mEq = 1 Me moria chloride 10 7-13 tab, PO, l mEq oral 17:48: Daily, 0 Mallorie nn tablet, 00 Refill(s) extended release potassium 2017-0 No 10 mEq = 1 Me moria chloride 10 7-13 tab, PO, l mEq oral 17:48: Daily, 0 Mallorie nn tablet, 00 Refill(s) extended release potassium 2017-0 No 10 mEq = 1 Me moria chloride 10 7-13 tab, PO, l mEq oral 17:48: Daily, 0 Mallorie nn tablet, 00 Refill(s) extended release torsemide 2017-0 No 20 mg = 1 Mem oria 20 mg oral 7-13 tab, PO, l tablet 17:45: BID, 0 Sae 00 Refill(s) gabapentin 2018-0 No 300 mg = 1 M emoria 300 MG Oral 7-13 cap, PO, l Capsule 17:45: TID, 0 Gravette 00 Refill(s) Metolazone 2018-0 No 2.5 mg = 1 M emoria 2.5 MG Oral 7-13 tab, PO, l Tablet 17:45: Daily, 0 Sae 00 Refill(s) torsemide 2018-0 No 20 mg = 1 Mem oria 20 mg oral 7-13 tab, PO, l tablet 17:45: BID, 0 Sae 00 Refill(s) gabapentin 2018-0 No 300 mg = 1 M emoria 300 MG Oral 7-13 cap, PO, l Capsule 17:45: TID, 0 Gravette 00 Refill(s) Metolazone 2018-0 No 2.5 mg = 1 M emoria 2.5 MG Oral 7-13 tab, PO, l Tablet 17:45: Daily, 0 Sae 00 Refill(s) torsemide 2018-0 No 20 mg = 1 Mem oria 20 mg oral 7-13 tab, PO, l tablet 17:45: BID, 0 Gravette 00 Refill(s) gabapentin 2017-0 No 300 mg = 1 M emoria 300 MG Oral 7-13 cap, PO, l Capsule 17:45: TID, 0 Gravette 00 Refill(s) Metolazone 2017-0 No 2.5 mg = 1 M emoria 2.5 MG Oral 7-13 tab, PO, l Tablet 17:45: Daily, 0 Sae 00 Refill(s) amLODIPine 2018-0 No 5 mg = 1 Mem oria 5 mg oral 7-13 tab, PO, l tablet 17:44: Daily, 0 [place] 00 Refill(s) labetalol 2018-0 No 100 mg = 1 Me moria 100 mg oral 7-13 tab, PO, l tablet 17:44: BID, 0 Sae 00 Refill(s) amLODIPine 2018-0 No 5 mg = 1 Mem oria 5 mg oral 7-13 tab, PO, l tablet 17:44: Daily, 0 Sae 00 Refill(s) labetalol 2018-0 No 100 mg = 1 Me moria 100 mg oral 7-13 tab, PO, l tablet 17:44: BID, 0 Sae 00 Refill(s) amLODIPine No 5 mg = 1 Mem oria 5 mg oral 7-13 tab, PO, l tablet 17:44: Daily, 0 Gravette 00 Refill(s) labetalol 2017-0 No 100 mg = 1 Me moria 100 mg oral 7-13 tab, PO, l tablet 17:44: BID, 0 Grav[place] 00 Refill(s) pravastatin 0 No 80 mg = 1 M emoria 80 mg oral 7-13 tab, PO, l tablet 17:19: Daily, 0 Gravette 00 Refill(s) allopurinol No 100 mg = 1 Memoria 100 mg oral 7-13 tab, PO, l tablet 17:19: BID, 0 Grav[place] 00 Refill(s) pravastatin 0 No 80 mg = 1 M emoria 80 mg oral 7-13 tab, PO, l tablet 17:19: Daily, 0 Sae 00 Refill(s) allopurinol No 100 mg = 1 Memoria 100 mg oral 7-13 tab, PO, l tablet 17:19: BID, 0 Gravette 00 Refill(s) pravastatin 0 No 80 mg = 1 M emoria 80 mg oral 7-13 tab, PO, l tablet 17:19: Daily, 0 Sae 00 Refill(s) allopurinol 0 No 100 mg = 1 Memoria 100 mg oral 7-13 tab, PO, l tablet 17:19: BID, 0 Sae 00 Refill(s) magnesium No 400 mg = 1 Me moria oxide 400 7-13 tab, PO, l mg oral 17:18: BID, 0 Gravette tablet 00 Refill(s) magnesium 2017-0 No 400 mg = 1 Me moria oxide 400 7-13 tab, PO, l mg oral 17:18: BID, 0 Sae tablet 00 Refill(s) magnesium 2017-0 No 400 mg = 1 Me moria oxide 400 7-13 tab, PO, l mg oral 17:18: BID, 0 Gravette tablet 00 Refill(s) Folic Acid No 1 mg = 1 Mem oria 1 MG Oral 7-13 tab, PO, l Tablet 17:17: Daily, 0 Sae 00 Refill(s) Folic Acid No 1 mg = 1 Mem oria 1 MG Oral 7-13 tab, PO, l Tablet 17:17: Daily, 0 [place]ette 00 Refill(s) Folic Acid No 1 mg = 1 Mem oria 1 MG Oral 7-13 tab, PO, l Tablet 17:17: Daily, 0 Gravette 00 Refill(s) Fish Oil No 1,000 mg = Mem oria 1000 mg 7-13 1 cap, PO, l oral 17:14: BID, 0 Sae capsule 00 Refill(s) Fish Oil No 1,000 mg = Mem oria 1000 mg 7-13 1 cap, PO, l oral 17:14: BID, 0 Gravette capsule 00 Refill(s) Fish Oil No 1,000 mg = Mem oria 1000 mg 7-13 1 cap, PO, l oral 17:14: BID, 0 Gravette capsule 00 Refill(s) thiamine No 100 mg = 1 Mem oria 100 mg oral 7-13 tab, PO, l tablet 17:13: Daily, 0 Sae 00 Refill(s) multivitami 0 No Daily, 0 Me moria n 7-13 Refill(s) l 17:13: Sae 00 Calcium 0 No 1 tab, PO, Shine sarah Carbonate 7-13 BID, 0 l 1500 MG / 17:13: Refill(s) Her aguirre Cholecalcif 00 kang 400 UNT Oral Tablet thiamine No 100 mg = 1 Mem oria 100 mg oral 7-13 tab, PO, l tablet 17:13: Daily, 0 Sae 00 Refill(s) multivitami 0 No Daily, 0 Me moria n 7-13 Refill(s) l 17:13: [place] 00 Calcium 0 No 1 tab, PO, Shine sarah Carbonate 7-13 BID, 0 l 1500 MG / 17:13: Refill(s) Her aguirre Cholecalcif 00 kang 400 UNT Oral Tablet thiamine No 100 mg = 1 Mem oria 100 mg oral 7-13 tab, PO, l tablet 17:13: Daily, 0 Sae 00 Refill(s) multivitami 0 No Daily, 0 Me moria n 7-13 Refill(s) l 17:13: [place] 00 Calcium 2018-0 No 1 tab, PO, Shine sarah Carbonate 7-13 BID, 0 l 1500 MG / 17:13: Refill(s) Her carla Cholecalcif 00 kang 400 UNT Oral Tablet Aspirin 81 2018 No 81 mg = 1 Me moria MG Chewable 7-13 tab, CHEW, l Tablet 17:12: Daily, 0 Gravette 00 Refill(s) Aspirin 81 2018 No 81 mg = 1 Me moria MG Chewable 7-13 tab, CHEW, l Tablet 17:12: Daily, 0 Sae 00 Refill(s) Aspirin 81 2018 No 81 mg = 1 Me moria MG Chewable 7-13 tab, CHEW, l Tablet 17:12: Daily, 0 Sae 00 Refill(s) NovoLIN 2018-0 No 24 unit, Memori a 70/30 7-13 SUB-Q, l 17:11: QPM, 0 [place] 00 Refill(s) NovoLIN 2018-0 No 24 unit, Memori a 70/30 7-13 SUB-Q, l 17:11: QPM, 0 [place] 00 Refill(s) NovoLIN 2018-0 No 24 unit, Memori a 70/30 7-13 SUB-Q, l 17:11: QPM, 0 Sae 00 Refill(s) NovoLIN 2018-0 No 18 unit, Memori a 70/30 7-13 SUB-Q, l 17:09: QAM, 0 Sae 00 Refill(s) predniSONE 2018- No 5 mg = 1 Mem oria 5 mg oral 7-13 tab, PO, l tablet 17:09: Daily, 0 [place] 00 Refill(s) tacrolimus 2017-0 No 0.5 mg = 1 M emoria 0.5 mg oral 7-13 cap, PO, l capsule 17:09: Q12H, 0 [place] 00 Refill(s) NovoLIN 2018-0 No 18 unit, Memori a 70/30 7-13 SUB-Q, l 17:09: QAM, 0 Sae 00 Refill(s) predniSONE 2018-0 No 5 mg = 1 Mem oria 5 mg oral 7-13 tab, PO, l tablet 17:09: Daily, 0 [place] 00 Refill(s) tacrolimus 0 No 0.5 mg = 1 M emoria 0.5 mg oral 7-13 cap, PO, l capsule 17:09: Q12H, 0 [place] 00 Refill(s) NovoLIN No 18 unit, Memori a 70/30 7-13 SUB-Q, l 17:09: QAM, 0 Sae 00 Refill(s) predniSONE No 5 mg = 1 Mem oria 5 mg oral 7-13 tab, PO, l tablet 17:09: Daily, 0 [place] 00 Refill(s) tacrolimus No 0.5 mg = 1 M emoria 0.5 mg oral 7-13 cap, PO, l capsule 17:09: Q12H, 0 Sae 00 Refill(s) Prednisone No Notes: Memor ia 7-13 Take with l 14:00: food. Sae 00 Prednisone No Notes: Memor ia 7-13 Take with l 14:00: food. Sae 00 Prednisone No Notes: Memor ia 7-13 Take with l 14:00: food. [place] 00 Tacrolimus No Notes: Memor ia 7-13 Avoid l 13:00: grapefruit Sae 00 and grapefruit juice. (Same As: Prograf) heparin No Notes: Memoria sodium, 7-13 porcine l porcine 13:00: heparin Sae 2500 UNT/ML 00 Injectable Solution Tacrolimus No Notes: Memor ia 7-13 Avoid l 13:00: grapefruit Sae 00 and grapefruit juice. (Same As: Prograf) heparin No Notes: Memoria sodium, 7-13 porcine l porcine 13:00: heparin [place] 2500 UNT/ML 00 Injectable Solution Tacrolimus No Notes: Memor ia 7-13 Avoid l 13:00: grapefruit [place] 00 and grapefruit juice. (Same As: Prograf) heparin No Notes: Memoria sodium, 7-13 porcine l porcine 13:00: heparin [place] 2500 UNT/ML 00 Injectable Solution acetaminoph No Notes: Max Memoria en 7-13 acetaminop l 12:23: hen 4000 Sae 00 mg/day (4 gm/day). (Same as: Tylenol Extra Strength) acetaminoph No Notes: Max Memoria en 7-13 acetaminop l 12:23: hen 4000 Sae 00 mg/day (4 gm/day). (Same as: Tylenol Extra Strength) acetaminoph No Notes: Max Memoria en 7-13 acetaminop l 12:23: hen 4000 Sae 00 mg/day (4 gm/day). (Same as: Tylenol Extra Strength) iodixanol No 100 mL, Memor ia 04-08 Route: l 08:59: IVP, Drug [place] 00 Form: SOLN, kg, ONCALL, STAT, Start date: 04/08/18 3:59:00 CDT, Duration: 1 doses or times, Dose = 2.2ml/kg, Max dose = 100ml -- "To be infused by Radiology Staff ONLY" iodixanol No 100 mL, Memor ia 04-08 Route: l 08:59: IVP, Drug Sae Form: SOLN, kg, ONCALL, STAT, Start date: 04/08/18 3:59:00 CDT, Duration: 1 doses or times, Dose = 2.2ml/kg, Max dose = 100ml -- "To be infused by Radiology Staff ONLY" iodixanol 0 No 100 mL, Memor ia 04-08 Route: l 08:59: IVP, Drug Sae Form: SOLN, kg, ONCALL, STAT, Start date: 04/08/18 3:59:00 CDT, Duration: 1 doses or times, Dose = 2.2ml/kg, Max dose = 100ml -- "To be infused by Radiology Staff ONLY" Lidocaine No Notes: Memori a Hydrochlori - (Same as: l de 0.05 07:00: Lidoderm) Mallorie nn MG/MG 00 "Remove Transdermal old patch Patch before [Lidoderm] applicatio n of new patch" Lidocaine No Notes: Memori a Hydrochlori - (Same as: l de 0.05 07:00: Lidoderm) Mallorie nn MG/MG 00 "Remove Transdermal old patch Patch before [Lidoderm] applicatio n of new patch" Lidocaine No Notes: Memori a Hydrochlori - (Same as: l de 0.05 07:00: Lidoderm) Mallorie nn MG/MG 00 "Remove Transdermal old patch Patch before [Lidoderm] applicatio n of new patch" Oxycodone No Notes: Memori a Hydrochlori 7-13 (Same as: l de 5 MG 06:48: Roxicodone Herm kris Oral Tablet 00 ) Tramadol No Notes: Not Mem oria 7-13 to exceed l 06:48: 400mg/day. [place] 00 (Same As: Ultram) Oxycodone No Notes: Memori a Hydrochlori 7-13 (Same as: l de 5 MG 06:48: Roxicodone Herm kris Oral Tablet 00 ) Tramadol No Notes: Not Mem oria 7-13 to exceed l 06:48: 400mg/day. [place] 00 (Same As: Ultram) Oxycodone No Notes: Memori a Hydrochlori 7-13 (Same as: l de 5 MG 06:48: Roxicodone Herm kris Oral Tablet 00 ) Tramadol No Notes: Not Mem oria 7-13 to exceed l 06:48: 400mg/day. [place] 00 (Same As: Ultram) gabapentin No Notes: Memor ia 7-13 (Same as: l 06:46: Neurontin) Sae 00 Acetaminoph No Notes: Max Memoria en 7-13 acetaminop l 06:46: hen 4000 Sae 00 mg/day (4 gm/day). (Same as: Tylenol Extra Strength) gabapentin No Notes: Memor ia 7-13 (Same as: l 06:46: Neurontin) Sae 00 Acetaminoph No Notes: Max Memoria en 7-13 acetaminop l 06:46: hen 4000 [place] 00 mg/day (4 gm/day). (Same as: Tylenol Extra Strength) gabapentin No Notes: Memor ia 7-13 (Same as: l 06:46: Neurontin) Sae 00 Acetaminoph No Notes: Max Memoria en 7-13 acetaminop l 06:46: hen 4000 [place] 00 mg/day (4 gm/day). (Same as: Tylenol Extra Strength) Fentanyl No Notes: Memoria 7-13 (Same as: l 04:37: Sublimaze) [place] 00 Preservati ve free. Saline No Notes: Memoria Flush 0.9% 7-13 (Same as: l 04:37: BD [place] 00 Posiflush) Fentanyl No Notes: Memoria 7-13 (Same as: l 04:37: Sublimaze) [place] 00 Preservati ve free. Saline No Notes: Memoria Flush 0.9% 7-13 (Same as: l 04:37: BD [place] 00 Posiflush) Fentanyl No Notes: Memoria 7-13 (Same as: l 04:37: Sublimaze) [place] 00 Preservati ve free. Saline No Notes: Memoria Flush 0.9% 7-13 (Same as: l 04:37: BD [place] 00 Posiflush) esomeprazol Yes Take 40 mg [facility] (NexIUM) 4-[address] 20 MG 00:00: every [facility] capsule 00 morning l and 20 mg by mouth every evening montelukast Yes 10mg Take 1 Meth susan (SINGULAIR) 4-28 tablet (10 st 10 mg 00:00: mg total) Hospita tablet 00 by mouth l as needed (allergies ). ANNIELIN 2015-09 Yes [facility] 70/30 100 1-05 ity of unit/mL 00:00: [place] (70-30) 00 [place] injection [facility] NOVOLIN 2015-09 Yes Univers 70/30 100 1-05 ity of unit/mL 00:00: [place] (70-30) 00 injection [facility] SINGULAIR 2015-09 Yes TAKE 1 Univer s 10 mg 1-01 TABLET BY ity of tablet 00:00: MOUTH [place] 00 EVERY DAY [facility] SINGULAIR 2015-09 Yes TAKE 1 Univer s 10 mg 1-01 TABLET BY ity of tablet 00:00: MOUTH [place] 00 EVERY DAY [facility] labetalol Yes TAKE 1 Univer s (TRANDATE) 9-29 TABLET BY ity of 300 mg 00:00: MOUTH [place] tablet 00 EVERY 12 MD [facility] potassium Yes TAKE ONE Univ ers chloride 9-29 TABLET BY ity of (K-KATHY MARQUEZ 00:00: MOUTH [place] -CON M) 10 00 TWICE MD mEq tablet DAILY [facility] labetalol Yes TAKE 1 Univer s (TRANDATE) 9-29 TABLET BY ity of 300 mg 00:00: MOUTH [place] tablet 00 EVERY 12 MD HOURS [facility] potassium Yes TAKE ONE Univ ers chloride 9-29 TABLET BY ity of (KATHY GAGNON 00:00: MOUTH [place] -CON M) 10 00 TWICE MD mEq tablet DAILY [facility] folic acid Yes TAKE ONE Uni vers (FOLVITE) 1 9-22 TABLET BY ity of mg tablet 00:00: MOUTH [place] 00 DAILY [facility] torsemide Yes TAKE 2 Univer s (DEMADEX) 9-22 TABLETS BY ity of 20 mg 00:00: MOUTH ONCE [place] tablet 00 DAILY [facility] folic acid Yes TAKE ONE Uni vers (FOLVITE) 1 9-22 TABLET BY ity of mg tablet 00:00: MOUTH [place] 00 DAILY [facility] torsemide Yes TAKE 2 Univer s (DEMADEX) 9-22 TABLETS BY ity of 20 mg 00:00: MOUTH ONCE [place] tablet 00 DAILY [facility] ALPRAZolam Yes TAKE 1 Unive rs (XANAX) 9-03 TABLET BY ity of 0.25 mg 00:00: MOUTH 4 [place] tablet 00 TIMES A [place] DAY FOR 30 [facility] ALPRAZolam Yes TAKE 1 Unive rs (XANAX) 9-03 TABLET BY ity of 0.25 mg 00:00: MOUTH 4 [place] tablet 00 TIMES A [place] DAY FOR 30 [facility] tamsulosin Yes TAKE ONE Uni vers (FLOMAX) 8-25 CAPSULE ity of 0.4 mg 24 00:00: EVERY [place] hr capsule 00 EVENING [facility] tamsulosin Yes TAKE ONE Uni vers (FLOMAX) 8-25 CAPSULE ity of 0.4 mg 24 00:00: EVERY [place] hr capsule 00 EVENING [facility] pravastatin Yes TAKE ONE Un christian (PRAVACHOL) 8-10 TABLET BY ity of 40 mg 00:00: MOUTH IN [place] tablet 00 THE LATE MD EVENING Anderso DAILY. n [facility] pravastatin 2021- No TAKE ONE U nivers (PRAVACHOL) 8-10 - TABLET BY it y of 40 mg 00:00: 00:00 MOUTH IN [place] tablet 00 :00 THE LATE MD EVENING Anderso DAILY. n [facility] labetalol Yes TAKE 2 Univer s (TRANDATE) 8-04 TABLETS BY ity of 200 mg 00:00: MOUTH [place] tablet 00 TWICE A MD DAY [facility] labetalol Yes TAKE 2 Univer s (TRANDATE) 8-04 TABLETS BY ity of 200 mg 00:00: MOUTH [place] tablet 00 TWICE A MD DAY [facility] Alive Alive No Alive [place] Calcium-Vit Calcium-Vit Calcium-Vi [place] rosas D3 rosas D3 tamin D3 Urolo gy allopurinol allopurinol No allopurino [place] 100 mg 100 mg l 100 mg [facility] tablet TAKE tablet TAKE tablet Urology 1 TABLET BY 1 TABLET BY TAKE 1 MOUTH TWICE MOUTH TWICE TABLET BY A DAY A DAY MOUTH TWICE A DAY alprazolam alprazolam No alprazolam [place] 0.5 mg 0.5 mg 0.5 mg [facility] tablet ORAL tablet ORAL tablet Urology TAKE 1 TAKE 1 ORAL TAKE TABLET BY TABLET BY 1 TABLET MOUTH FOUR MOUTH FOUR BY MOUTH TIMES A DAY TIMES A DAY FOUR TIMES A DAY amlodipine amlodipine No amlodipine [place] 5 mg tablet 5 mg tablet 5 mg M etro PLEASE SEE PLEASE SEE tablet U rology ATTACHED ATTACHED PLEASE SEE FOR FOR ATTACHED DETAILED DETAILED FOR DIRECTIONS DIRECTIONS DETAILED DIRECTIONS aspirin 81 aspirin 81 No 1capsul Q1D aspirin 81 [place] mg capsule mg capsule e(s) mg capsule [facility] Take 1 Take 1 Take 1 Urology capsule capsule capsule every day every day every day by oral by oral by oral route. route. route. cranberry cranberry No cranberry [facility] ferrous ferrous No ferrous [place] sulfate sulfate sulfate [facility] finasteride finasteride No finasterid [place] 5 mg tablet 5 mg tablet e 5 mg [facility] TAKE 1 TAKE 1 tablet Urology TABLET BY TABLET BY TAKE 1 MOUTH EVERY MOUTH EVERY TABLET BY DAY DAY MOUTH EVERY DAY Fish Oil Fish Oil No Fish Oil Jaguar ston 1,000 mg 1,000 mg 1,000 mg Met ro (120 mg-180 (120 mg-180 (120 U rology mg) capsule mg) capsule mg-180 mg) Take by Take by capsule oral route. oral route. Take by oral route. folic acid folic acid No folic acid Hernandez 1 mg tablet 1 mg tablet 1 mg M etro TAKE 1 TAKE 1 tablet Urology TABLET BY TABLET BY TAKE 1 MOUTH EVERY MOUTH EVERY TABLET BY DAY DAY MOUTH EVERY DAY gabapentin gabapentin No gabapentin [place] 400 mg 400 mg 400 mg [facility] capsule capsule capsule Urolog y TAKE 1 TAKE 1 TAKE 1 CAPSULE BY CAPSULE BY CAPSULE BY MOUTH THREE MOUTH THREE MOUTH TIMES A DAY TIMES A DAY THREE TIMES A DAY isosorbide isosorbide No isosorbide [place] mononitrate mononitrate mononitrat [facility] ER 30 mg ER 30 mg e ER 30 mg U rology tablet,exte tablet,exte tablet,ext nded nded ended release 24 release 24 release 24 hr TAKE 1 hr TAKE 1 hr TAKE 1 TABLET BY TABLET BY TABLET BY MOUTH EVERY MOUTH EVERY MOUTH DAY DAY EVERY DAY magnesium magnesium No magnesium Hernandez oxide 400 oxide 400 oxide 400 [facility] mg (241.3 mg (241.3 mg (241.3 Urology mg mg mg magnesium) magnesium) magnesium) tablet TAKE tablet TAKE tablet 1 TABLET BY 1 TABLET BY TAKE 1 MOUTH TWICE MOUTH TWICE TABLET BY A DAY A DAY MOUTH TWICE A DAY metolazone metolazone No 1 Q1D metolazone [place] 2.5 mg 2.5 mg 2.5 mg [facility] tablet Take tablet Take tablet Urology 1 tablet 1 tablet Take 1 every day every day tablet by oral by oral every day route. route. by oral route. Nexium 20 Nexium 20 No 1capsul Q1D Nexium 20 Hernandez mg mg e(s) mg [place] capsule,del capsule,del capsule,de Urology ayed ayed layed release release release Take 1 Take 1 Take 1 capsule capsule capsule every day every day every day by oral by oral by oral route. route. route. Nexium 40 Nexium 40 No 1capsul Q1D Nexium 40 Hernandez mg mg e(s) mg [facility] capsule,del capsule,del capsule,de Urology ayed ayed layed release release release Take 1 Take 1 Take 1 capsule capsule capsule every day every day every day by oral by oral by oral route. route. route. Novolin Novolin No Novolin [place] 70/30 U-100 70/30 U-100 70/30 [facility] Insulin 100 Insulin 100 U-100 Urology unit/mL unit/mL Insulin subcutaneou subcutaneou 100 s s unit/mL suspension suspension subcutaneo INJECT INJECT us UNDER THE UNDER THE suspension SKIN 12 SKIN 12 INJECT UNITS EVERY UNITS EVERY UNDER THE MORNING AND MORNING AND SKIN 12 20 UNITS 20 UNITS UNITS EVERY EVERY EVERY EVENING EVENING MORNING AND 20 UNITS EVERY EVENING potassium potassium No potassium [place] chloride ER chloride ER chloride [facility] 10 mEq 10 mEq ER 10 mEq Urolog y tablet,exte tablet,exte tablet,ext nded nded ended release(par release(par release(pa t/cryst) t/cryst) rt/cryst) TAKE 2 TAKE 2 TAKE 2 TABLETS BY TABLETS BY TABLETS BY MOUTH EVERY MOUTH EVERY MOUTH DAY DAY EVERY DAY pravastatin pravastatin No pravastati [place] 80 mg 80 mg n 80 mg [facility] tablet TAKE tablet TAKE tablet Urology 1 TABLET BY 1 TABLET BY TAKE 1 MOUTH EVERY MOUTH EVERY TABLET BY DAY DAY MOUTH EVERY DAY sertraline sertraline No sertraline [place] 50 mg 50 mg 50 mg [facility] tablet TAKE tablet TAKE tablet Urology 1 TABLET BY 1 TABLET BY TAKE 1 MOUTH EVERY MOUTH EVERY TABLET BY DAY DAY MOUTH EVERY DAY Singulair Singulair No 1 Q1D Singulair [place] 10 mg 10 mg 10 mg [facility] tablet Take tablet Take tablet Urology 1 tablet 1 tablet Take 1 every day every day tablet by oral by oral every day route. route. by oral route. tacrolimus tacrolimus No tacrolimus [place] 0.5 mg 0.5 mg 0.5 mg [facility] capsule, capsule, capsule, Uro logy immediate-r immediate-r immediate- elease TAKE elease TAKE release 1 CAPSULE 1 CAPSULE TAKE 1 BY MOUTH 2 BY MOUTH 2 CAPSULE BY TIMES A TIMES A MOUTH 2 DAY. DAY. TIMES A DAY. tamsulosin tamsulosin No 1capsul BID tamsulosin [place] 0.4 mg 0.4 mg e(s) 0.4 mg [facility] capsule capsule capsule Urolog y Take 1 Take 1 Take 1 capsule capsule capsule twice a day twice a day twice a by oral by oral day by route for route for oral route 90 days. 90 days. for 90 days. thiamine thiamine No thiamine [place] HCl HCl HCl [facility] (vitamin (vitamin (vitamin Uro logy B1) B1) B1) torsemide torsemide No torsemide [place] 20 mg 20 mg 20 mg [facility] tablet TAKE tablet TAKE tablet Urology 2 TABLETS 2 TABLETS TAKE 2 (40 MG (40 MG TABLETS TOTAL) BY TOTAL) BY (40 MG MOUTH MOUTH TOTAL) BY DAILY. DAILY. MOUTH DAILY. tramadol 50 tramadol 50 No tramadol [place] mg tablet mg tablet 50 mg Metr o TAKE 1 TAKE 1 tablet Urology TABLET BY TABLET BY TAKE 1 MOUTH EVERY MOUTH EVERY TABLET BY 4 HOURS 4 HOURS MOUTH NEEDED FOR NEEDED FOR EVERY 4 PAIN PAIN HOURS NEEDED FOR PAIN Immunizations Ordered Filled Immunization Date Status Comments [facility] e Immunization Name Name pneumococcal pneumococcal 2021-08-27 Completed [place] tro conjugate PCV 13 conjugate PCV 13 00:00:00 Ur ology Pneumococcal 2021-08-27 Completed [facility] Conjugate 13-Valent 00:00:00 [facility] connor MODERNA COVID-19 2021-06-23 Completed Methodis t MRNA VACCINATION 00:00:00 [facility] SARS-COV-2 COVID-2021-06-23 Completed Unive rsity of MODERNA VACCINE 00:00:00 [facility] COVID-19, mRNA, COVID-19, mRNA, 2021-06-16 Completed [place] LNP-S, PF, 100 LNP-S, PF, 100 00:00:00 Urolog y mcg/0.5 mL dose mcg/0.5 mL dose (Moderna) (Moderna) MODERNA COVID-19 2021-06-16 Completed Methodis t MRNA VACCINATION 00:00:00 [facility] COVID-19, mRNA, COVID-19, mRNA, 2020-12-16 Completed [place] [facility] LNP-S, PF, 100 LNP-S, PF, 100 00:00:00 Urolog y mcg/0.5 mL dose mcg/0.5 mL dose (Moderna) (Moderna) MODERNA COVID-19 2020-12-16 Completed Methodis t MRNA VACCINATION 00:00:00 [facility] COVID-19, mRNA, COVID-19, mRNA, 2020-11-18 Completed [place] [facility] LNP-S, PF, 100 LNP-S, PF, 100 00:00:00 Urolog y mcg/0.5 mL dose mcg/0.5 mL dose (Moderna) (Moderna) MODERNA COVID-19 2020-11-18 Completed Methodis t MRNA VACCINATION 00:00:00 [facility] COVID-19 2020-10-31 Completed Methodis t MRNA VACCINATION 00:00:00 [facility] COVID19 2020-10-03 Completed Methodis t MRNA VACCINATION 00:00:00 [facility] Pneumococcal 2020-07-09 Completed [facility] Conjugate 13-Valent 00:00:00 Hospi connor Vital Signs Vital Name Observation Time Observation Value Comments Source Height 2022-02-10 00:00:00 69.5 [in_i] [facility] Urology BMI (Body Mass 2022-02-10 00:00:00 25.5 kg/m2 [facility] [place] [facility] Index) Urology Body Weight 2022-02-10 00:00:00 175 [lb_av] [facility] Urolog Systolic blood 2022-09-02 18:57:00 111 mm[Hg] [facility] pressure Diastolic blood 2022-09-02 18:57:00 55 mm[Hg] [facility] pressure Heart rate 2022-09-02 18:57:00 73 /min [facility] Body temperature 2022-09-02 18:57:00 36.06 Genevieve [facility] Body height 2022-09-02 18:57:00 175.3 cm [facility] Body weight 2022-09-02 18:57:00 85.73 kg [facility] BMI 2022-09-02 18:57:00 27.91 kg/m2 [facility] Oxygen saturation in 2022-09-02 18:57:00 91 /min [facility] Arterial blood by Pulse oximetry Respiratory rate 2022-06-03 18:41:00 18 /min [facility] Systolic blood 2022-03-17 15:34:42 103 mm[Hg] Univer sity of pressure [facility] Diastolic blood 2022-03-17 15:34:42 60 mm[Hg] Unive rsity of pressure [facility] Heart rate 2022-03-17 15:34:42 77 /min [facility] Body temperature 2022-03-17 15:34:42 36.39 [facility] Respiratory rate 2022-03-17 15:34:42 16 /min [facility] Oxygen saturation in 2022-03-17 15:34:42 92 /min [facility] Arterial blood by Jacky wolfeon Pulse oximetry [facility] Systolic blood 2022-02-24 19:25:00 178 mm[Hg] Univer sity of pressure [facility] Diastolic blood 2022-02-24 19:25:00 89 mm[Hg] Unive rsity of pressure [place] MD [facility] Heart rate 2022-02-24 19:25:00 86 /min [facility] Body temperature 2022-02-24 19:25:00 37 [facility] [place] [facility] Oxygen saturation in 2022-02-24 19:25:00 94 /min [facility] Arterial blood by Jacky powellrson Pulse oximetry [facility] Respiratory rate 2022-02-24 16:19:00 14 /min [facility] MD [facility] Respitory Rate 2018-04-18 23:44:00 Memori al [place] Heart Rate 2018-04-18 23:44:00 [facility] S[facility] Systolic (mm Hg) 2018-04-18 23:44:00 Shine rial Sae Diastolic (mm Hg) 2018-04-18 23:44:00 Mem orial [place] Temperature Oral (F) 2018-04-18 23:44:00 97.5 F [facility] Sae Heart Rate 2018-04-18 17:46:00 [facility] Sae Respitory Rate 2018-04-18 17:46:00 Memori al [place] Temperature Oral (F) 2018-04-18 17:46:00 97.8 F [facility] [place] Systolic (mm Hg) 2018-04-18 17:46:00 Shine rial Sae Diastolic (mm Hg) 2018-04-18 17:46:00 Mem orial [place] Systolic (mm Hg) 2018-04-18 14:34:00 Shine rial [place] Diastolic (mm Hg) 2018-04-18 14:34:00 Mem orial [place] Temperature Oral (F) 2018-04-18 14:34:00 97.5 F [facility] Sae Heart Rate 2018-04-18 14:34:00 [facility] Respitory Rate 2018-04-18 14:34:[address] Weight 2018-04-09 02:59:00 [facility] BMI Calculated 2018-04-09 02:59:[address] Height 2018-04-09 02:59:00 175.26 cm [facility] Procedures Procedure Date / Time Performing Clinician Source Performed MRI ABDOMEN W WO CONTRAST 2022-09-02 17:00:00 Tracy Bailey [facility] ALPHA FETOPROTEIN 2022-09-02 14:50:00 Tracy Bailey [facility] CBC WITH PLATELET AND 2022-09-02 14:50:[facility] METABOLIC 2022-09-02 14:50:[address] [facility] PANEL BILIRUBIN DIRECT 2022-09-02 14:50:00 [facility] MAGNESIUM LEVEL 2022-09-02 14:50:00 [facility] PROT[facility] TIME WITH INR 2022-09-02 14:50:00 Tracy Bailey [facility] HEPATOCELLULAR CARCINOMA 2022-09-02 14:50[facility] ANTIGEN 19-9 2022-09-02 14:50:00 Tracy Bailey [facility] ESTIMATED GFR 2022-09-02 14:50:00 [facility] W WO CONTRAST 2022-06-03 [facility] [facility] [address] [facility] 2022-06-03 14:33:00 Daniel [facility] [place] [facility] 2022-06-03 13:37:00 Daniel [facility] PANEL BILIRUBIN DIRECT 2022-06-03 13:37:00 Daniel [facility] PROTHROMBIN TIME WITH INR 2022-06-03 13:37:[facility] 2022-06-03 13:37:00 [facility] ALPHA FETOPROTEIN 2022-06-03 13:37:00 Daniel [facility] ESTIMATED GFR 2022-06-03 13:37:00 [facility]Margaret [facility] CBC WITH PLATELET AND 2022-05-01 15:02:00 [facility] DIFFERENTIAL COMPREHENSIVE METABOLIC 2022-05-01 15:02:00 [facility] [place] PANEL HEMOGLOBIN A1C 2022-05-01 15:02:00 [facility] VITAMIN D 25 HYDROXY LEVEL 2022-05-01 15:02:00 [facility] MICROALBUMIN / CREATININE 2022-05-01 15:02:00 [facility] URINE RATIO LIPID PANEL 2022-05-01 15:02:00 [facility] T4, FREE 2022-05-01 15:02:00 [facility] THYROID STIMULATING HORMONE 2022-05-01 15:02:00 [facility] PATHOLOGY BIOPSY 2022-03-17 22:20:00 Benjamin Amaya [facility] INTERPRETATION [facility] NM BONE SCAN WHOLE BODY 2022-02-25 17:34:[address] [facility] MRI ABDOMEN W WO CONTRAST 2022-02-25 16:05:00 Tracy Bailey [facility] COMPREHENSIVE METABOLIC 2022-02-25 13:40:[address] [facility] PANEL BILIRUBIN DIRECT 2022-02-25 13:40:00 Tracy Bailey [facility] PROTHROMBIN TIME WITH INR 2022-02-25 13:40:00 Tracy Bailey [facility] HEPATOCELLULAR CARCINOMA 2022-02-25 13:40:00 Tracy Bailey [facility] MARKER PANEL ESTIMATED GFR 2022-02-25 13:40:00 [facility] BIOPSY 2022-02-09 16:10:00 Benjamin Amaya [facility] INTERPRETATION [facility] NM Y-90 PHASE 2 SPECT 2022-01-21 20:43:00 Tracy Bailey [facility] Y90 THERASPHERES THERAPY 2022-01-21 20:42:36 Tracy Bailey [facility] IR RADIOEMBOLIZATION 2022-01-21 17:05:00 Tracy Bailey [facility] IR 3D RECON SLICES 2022-01-21 17:05[facility]00 [facility] POC GLUCOSE 2022-01-21 16:41:00 Tracy Bailey ospital POC GLUCOSE 2022-01-21 13:42:00 Tracy Bailey ospital NM Y-90 PHASE 1 SPECT 2022-01-12 18:51:26 Tracy Bailey [facility] IR 3D RECON SLICES 2022-01-12 18:07:38 [facility] RDS IR RADIOEMBOLIZATION 2022-01-12 18:04:00 Tracy Bailey [facility] [facility] POC GLUCOSE 2022-01-12 13:28:00 Tracy Bailey [facility] MRI ABDOMEN W WO CONTRAST 2021-12-25 19:28:00 Boaz Ibarra [facility] MRI PELVIS W WO CONTRAST 2021-12-25 19:02:[address] [facility] CBC WITH PLATELET AND 2021-12-25 16:50:00 Tracy Bailey [facility] DIFFERENTIAL COMPREHENSIVE METABOLIC 2021-12-25 16:50:[address] [facility] PANEL PROTHROMBIN TIME WITH INR 2021-12-25 16:50:00 Tracy Bailey [facility] ESTIMATED GFR 2021-12-25 16:50:00 [facility] BILIRUBIN DIRECT 2021-12-25 16:50:00 [facility] CHEST 1 VW 2021-11-26 16:18:00 Smooth Brasher Ho spital SURGICAL PATHOLOGY REQUEST 2021-11-26 16:13:00 [facility] NEEDLE BIOPSY NO 2021-11-26 16:10:[facility] 2021-11-26 15:15:00 Tracy Bialey ospital (NON-GYNECOLOGICAL) REQUEST POC GLUCOSE 2021-11-26 13:52:00 Tracy Bailey H ospital COMPREHENSIVE METABOLIC 2021-11-18 14:02:00 [facility] WITH PLATELET AND 2021-11-18 14:02:00 [facility] DIFFERENTIAL [id number] TACROLIMUS LEVEL, 2021-11-18 14:02:00 [facility] POC GLUCOSE 2021-11-15 19:40:00 Trenton Zendejas Ho spital POC GLUCOSE 2021-11-15 15:23:00 Trenton Zendejas spital HC COMPLETE BLD COUNT 2021-11-15 11:22:00 India Blank [facility] W/AUTO DIFF Natvarlal FK506 TACROLIMUS LEVEL, 2021-11-15 11:22:00 [facility] ALPHA FETOPROTEIN 2021-11-15 11:22:00 [facility] CANCER ANTIGEN 19-9 2021-11-15 11:22:00 [facility] CARCINOEMBRYONIC ANTIGEN 2021-11-15 11:22:00 [facility] ([facility] BASIC METABOLIC PANEL 2021-11-15 11:22:00 [facility] Misael MAGNESIUM LEVEL 2021-11-15 11:22:00 [facility] Misael PHOSPHORUS LEVEL 2021-11-15 11:22:00 [facility] Misael HEPATIC FUNCTION PANEL 2021-11-15 11:22:00 [facility] ESTIMATED GFR 2021-11-15 11:22:00 [facility] Misael POC GLUCOSE 2021-11-15 03:41:00 Trenton Zendejas Ho spital POC GLUCOSE 2021-11-15 00:09:00 Trenton Zendejas Ho spital POC GLUCOSE 2021-11-14 19:06:00 Trenton Zendejas Ho spital POC GLUCOSE 2021-11-14 13:46:00 Trenton Zendejas Ho spital BASIC METABOLIC PANEL 2021-11-14 11:36:00 [facility] Natvarlal HC COMPLETE BLD COUNT 2021-11-14 11:36:00 [facility] W/AUTO DIFF Natvarlal MAGNESIUM LEVEL 2021-11-14 11:36:00 Tyree India Ramirez H ospital Natvarlal PHOSPHORUS LEVEL 2021-11-14 11:36:00 Farhad Lowe [facility] Misael ESTIMATED GFR 2021-11-14 11:36:00 India Blank H ospital Natvarlal FK506 TACROLIMUS LEVEL, 2021-11-14 11:36:00 Aashish [facility] RANDOM POC GLUCOSE 2021-11-14 03:02:[address] ABDOMEN PELVIS W 2021-11-14 [facility]52[facility] 2021-11-14 00:20:00 Trenton Zendejas spital POC GLUCOSE 2021-11-13 18:39:00 Trenton Zendejas spital BASIC METABOLIC PANEL 2021-11-13 15:05:00 Aashish [facility] HC COMPLETE BLD COUNT 2021-11-13 15:05:00 Aashish [facility] W/AUTO DIFF ESTIMATED GFR 2021-11-13 15:05:00 Trenton Zendejas spital FK506 TACROLIMUS LEVEL, 2021-11-13 15:05:00 Aashish [facility] TROUGH POC GLUCOSE 2021-11-13 13:49:00 Trenton Zendejas spital URINE CULTURE 2021-11-13 06:58:00 Geraldine Braun spital URINALYSIS SCREEN AND 2021-11-13 06:58:00 Kade [facility] MICROSCOPY, WITH REFLEX TO CULTURE POC GLUCOSE 2021-11-13 05:33:00 Soha Duran spital ECG 12-LEAD 2021-11-13 04:05:22 Geraldine Braun spital COVID-19 QUALITATIVE RT-PCR 2021-11-13 03:56:00 [facility] HC COMPLETE BLD COUNT 2021-11-13 03:54:00 [facility] W/AUTO DIFF PROTHROMBIN TIME WITH INR 2021-11-13 03:54:00 [facility] PARTIAL THROMBOPLASTIN TIME 2021-11-13 03:54:00 [facility] (PTT) COMPREHENSIVE METABOLIC 2021-11-13 03:54:00 [facility] PANEL LDH 2021-11-13 03:54:00 [facility] spital PHOSPHORUS LEVEL 2021-11-13 03:54:00 [facility] ospital B NATRIURETIC PEPTIDE 2021-11-13 03:54:00 [facility] ESTIMATED GFR 2021-11-13 03:54:00 [facility] spital ECG 12-LEAD 2021-10-28 16:38:48 [facility] CV CARDIAC PET STRESS TEST 2021-10-24 17:56:03 Kaushik [facility] CV CARDIAC PET MYOCARDIAL 2021-10-24 17:56:03 Kaushik [facility] PERFUSION IMAGING CT CHEST WO CONTRAST 2021-10-24 15:52:31 Khalida Faulkner [facility] ABDOMEN WO CONTRAST PELVIS WO CONTRAST URINE CULTURE 2021-10-24 14:17:00 Khalida Faulkner spital BASIC METABOLIC PANEL 2021-10-24 14:17:00 Kaushik [facility] HC COMPLETE BLD COUNT 2021-10-24 14:17:00 Kaushik [facility] W/AUTO DIFF PHOSPHORUS LEVEL 2021-10-24 14:17:00 [facility] MAGNESIUM LEVEL 2021-10-24 14:17:00 Khalida Faulkner spital HEPATIC FUNCTION PANEL 2021-10-24 14:17:00 Kaushik [facility] LIPID PANEL 2021-10-24 14:17:00 Khalida Faulkner spital HEMOGLOBIN A1C 2021-10-24 14:17:00 Kaushik, [facility] spital IONIZED CALCIUM 2021-10-24 14:17:00 Kaushik, [facility] spital PARATHYROID HORMONE 2021-10-24 14:17:00 Kaushik [facility] T3 2021-10-24 14:17:00 Kaushik, [facility] spital T4 2021-10-24 14:17:00 Kaushik, [facility] spital THYROID STIMULATING HORMONE 2021-10-24 14:17:00 [facility] URIC ACID LEVEL 2021-10-24 14:17:00 Kaushik, [facility] spital LDH 2021-10-24 14:17:00 Kaushik, [facility] spital TROPONIN T 2021-10-24 14:17:00 Kaushik, [facility] spital URINALYSIS SCREEN AND 2021-10-24 14:17:00 [facility] MICROSCOPY, WITH REFLEX TO CULTURE B NATRIURETIC PEPTIDE 2021-10-24 14:17:00 [facility] FK506 TACROLIMUS LEVEL, 2021-10-24 14:17:00 [facility] RANDOM VITAMIN D 25 HYDROXY LEVEL 2021-10-24 14:17:00 [facility] PROSTATE SPECIFIC ANTIGEN 2021-10-24 14:17:00 [facility], [facility] TESTOSTERONE 2021-10-24 14:17:00 [facility] spital HEPATITIS ACUTE PANEL 2021-10-24 14:17:00 [facility] CYTOMEGALOVIRUS BY PCR 2021-10-24 14:17:00 [facility] ALBUMIN WITH CREATININE AND 2021-10-24 14:17:00 [facility] RATIO, RANDOM URINE PROTHROMBIN TIME WITH INR 2021-10-24 14:17:00 [facility] PROTEIN, URINE, RANDOM 2021-10-24 14:17:00 [facility] CREATININE LEVEL, URINE, 2021-10-24 14:17:00 [facility] RANDOM ESTIMATED GFR 2021-10-24 14:17:00 [facility]TIBODY 2021-10-24 14:17:00 [facility] SARS-COV-2 COVID-19 2021-06-23 15:25:49 [facility] VACCINE,0.5ML,IM (MODERNA) [place] [facility] Diagnostic Colonoscopy 2019-09-27 00:00:00 [facility] Gi- Egd 2018-09-27 00:00:00 [place] [facility] CARDIO- Heart Transplant 2006-09-27 00:00:00 Jaguar bedolla [facility] Urology CARDIO- Pacemaker Insertion 2000-09-27 00:00:00 [facility] Urology HEENT- Cataract Surgery 1999-09-27 00:00:00 [facility]- Squamous Cell [place] [facility] Carcinoma Urology Removal of Gallbladder [facility] etro Urology GI- Inguinal Hernia [place] [facility] Cardio- Cabg [facility] Urology Plan of Care Planned Activity Planned Date Details Comments Source Future Scheduled 2022-09-20 SHINGLES VACCINES ([address] [facility] Test 09:00:49 of 2) [code = SHINGLES VACCINES (1 of 2)] Future Scheduled 2022-09-[address] [facility] Test 09:00:49 (1 of 3 - Risk 3-dose series) [code = HEPATITIS B VACCINES (1 of 3 - Risk 3-dose series)] Future Scheduled 2022-09-20 DIABETIC FOOT EXAM [facility] Test 09:00:49 [code = DIABETIC FOOT EXAM] Future Scheduled 2022-09-20 COVID-19 VACCINE (6 - [facility] Test 09:00:49 Booster for Moderna series) [code = COVID-19 VACCINE (6 - Booster for Moderna series)] Future Scheduled 2022-09-20 INFLUENZA VACCINE [facility] Test 09:00:49 [code = INFLUENZA VACCINE] Future Scheduled 2022-09-20 65+ [facility]OC[facility]CCAL [facility] Test 09:00:49 VACCINE (2 - PPSV23 if available, else PCV20) [code = 65+ PNEUMOCOCCAL VACCINE (2 - PPSV23 if available, else PCV20)] Future Scheduled 2022-09-20 DIABETES: RETINAL EYE [facility] Test 09:00:49 EXAM [code = DIABETES: RETINAL EYE EXAM] Diagnostic Test 2022-02-10 urinalysis, dipstick [place] [facility] Pending 00:00:00 [code = urinalysis, Urology dipstick] Encounters Start End Encounter Admission Attending Care Care Encounter Source Date/Time Date/Time Type Type Clinicians Facility Department ID 2022-07-27 Outpatient [facility] [id number] [place] 18:36:[id number] [place] [address] 2022-01-19 Outpatient SYSTEM, [facility] [id number] 07:08:45 PROVIDER Fidencio huggins 2021-07-04 Outpatient [facility] [id number] [place] 10:47:11 [facility] 2022-11-27 2022-11-27 Outpatient [facility] [id number] [place] 10:00:00 10:00:00 [facility] 2022-09-14 2022-09-14 Refill Kaushik, 1.2.840.1 [id number] Methodi 00:00:00 00:00:[address] 3.430.2.7 Hospit a .3.542655 l .8 2022-09-11 2022-09-11 Refill Bhimaraj, 1.2.840.1 [id number] [id number] Methodi 00:00:00 00:00:[address] 3.430.2.7 Hospit a .3.552443 l .8 2022-09-02 2022-09-08 Office Asked, No Pcp 1.2.840.1 [id number] Methodi 13:45:00 00:10:22 Visit Margaret Topete 97027.1.[address] 3.430.2.7 Hospit a .3.283083 l .8 2022-09-08 2022-09-08 Travel 1.2.840.1 1.2.625.905 0239 [id number] Methodi 00:00:00 00:00:[address] 3.430.2.7 0.2.7.3.698 Ho spita .3.632906 084.8 l .8 2022-09-03 2022-09-03 Telephone Olya, 1.2.840.1 [id number] Methodi 00:00:00 00:00:[address] 3.430.2.7 Hospit a .3.323731 l .8 2022-09-03 2022-09-03 [facility] Olya, 1.2.840.1 [id number] Methodi 00:00:00 00:00:00 Only Lefty [address]802.1.[address] 3.430.2.7 Hospit a .3.327307 l .8 2022-09-02 2022-09-02 [facility] Leo 1.2.840.1 [id number] Methodi 09:09:54 23:59:00 Encounter Tracy Gutierrez 56209.1.1 806 s t 3.430.2.7 Hospit a .3.506460 l .8 2022-09-02 2022-09-02 Travel 1.2.840.1 1.2.997.837 1583 [id number] Methodi 00:00:00 00:00:[address] 3.430.2.7 0.2.7.3.698 Ho spita .3.771812 084.8 l .8 2022-09-02 2022-09-02 Outpatient LEO, [facility] [id number] [place] 00:00:00 00:00:00 TRACY [address] 2022-09-02 2022-09-02 Outpatient LEO, [facility] [id number] [place] 00:00:00 00:00:00 TRACY [address] 2022-09-02 2022-09-02 Outpatient ASKED, NO [facility] [id number] [place] 00:00:00 00:00:[address] 2022-07-09 2022-07-09 Office Dmitri, 1.2.840.1 [id number] 1443 Methodi 13:20:00 13:40:00 Visit Stanley 59011.1.[address] 3.430.2.7 Hospit a .3.946732 l .8 2022-07-09 2022-07-09 Travel 1.2.840.1 1.2.279.477 0841 [id number] Methodi 00:00:00 00:00:[address] 3.430.2.7 0.2.7.3.698 Ho spita .3.507992 084.8 l .8 2022-07-09 2022-07-09 [facility] [id number] [address] [place] 00:00:00 00:00:00 STANLEY [address] 2022-07-06 2022-07-06 Travel 1.2.840.1 1.2.438.693 6665 [id number] Methodi 00:00:00 00:00:[address] 3.430.2.7 0.2.7.3.698 Ho spita .3.796725 084.8 l .8 2022-07-02 2022-07-02 Refill Jose Luis, 1.2.840.1 [id number] [facility] 00:00:00 00:00:00 Benjamin 95320.1.1 ity of 3.412.2.7 [place] .3.784583 MD .8 [facility] 2022-06-28 2022-06-28 Refill Haider, 1.2.840.1 [id number] 7450 Methodi 00:00:00 00:00:[address] [place] 3.430.2.7 Hospit a .3.313658 l .8 2022-06-19 2022-06-19 Telephone Dmitri, 1.2.840.1 [id number] 2100 [id number] Methodi 00:00:00 00:00:[address] 3.430.2.7 Hospit a .3.631413 l .8 2022-06-09 2022-06-09 Refill [facility], 1.2.840.1 [id number] [id number] Methodi 00:00:00 00:00:[address] 3.430.2.7 Hospit a .3.892351 l .8 2022-06-04 2022-06-04 Refill [facility], 1.2.840.1 [id number] 2100 [id number] Methodi 00:00:00 00:00:[address] 3.430.2.7 Hospit a .3.954734 l .8 2022-06-04 2022-06-04 [facility] Olya, 1.2.840.1 [id number] Methodi 00:00:00 00:00:00 Only Lefty 06123.1.[address] 3.430.2.7 Hospit a .3.999271 l .8 2022-06-03 2022-06-03 [facility], 1.2.840.1 [id number] 47993 Methodi 09:31:07 23:59:00 Encounter Margaret 22986.1.[address] 3.430.2.7 Hospit a .3.543083 l .8 2022-06-03 2022-06-03 [facility] 1.2.840.1 [id number] Methodi 14:00:00 14:15:00 Visit Tracy Bailey 93617.1.[address] 3.430.2.7 Hospit a .3.558732 l .8 2022-06-03 2022-06-03 [facility], 1.2.840.1 [id number] Methodi 08:44:01 09:30:00 Encounter Margaret 37934.1.[address] 3.430.2.7 Hospit a .3.438949 l .8 2022-06-03 2022-06-03 Travel 1.2.840.1 1.2.184.796 0210 [id number] Methodi 00:00:00 00:00:[address] 3.430.2.7 0.2.7.3.698 Ho spita .3.657543 084.8 l .8 2022-06-03 2022-06-03 Outpatient DANIEL, [facility] [id number] [place] 00:00:00 00:00:00 MARGARET 844 Method i 2022-06-03 2022-06-03 Outpatient DANIEL, [facility] [id number] [address] [place] 00:00:00 00:00:00 MARGARET 471 Method i 2022-06-03 2022-06-03 Outpatient [facility], [facility] [id number] [place] 00:00:00 00:00:00 MARGARET 472 Method i 2022-06-03 2022-06-03 Outpatient [facility], [facility] [id number] [place] 00:00:00 00:00:00 MARGARET 904 Method i 2022-05-29 2022-05-29 Office [place] [address] 1.2.165.354 8347 20226 [place] 10:15:00 10:42:21 Visit Benjamin 350.1.13.58 He alth 9.2.7.2.686 354.5804655 1 2022-05-25 2022-05-25 Travel 1.2.840.1 1.2.895.764 8278 [id number] Methodi 00:00:00 00:00:[address] 3.430.2.7 0.2.7.3.698 Ho spita .3.961203 084.8 l .8 2022-05-06 2022-05-06 Telemed[facility], 1.2.840.1 [id number] [id number] Methodi 11:20:00 11:20:00 ne Britney 59735.1.[address] [place] 3.430.2.7 Hospit a .3.088559 l .8 2022-05-06 2022-05-06 Outpatient [facility] [id number] [place] 00:00:00 00:00:00 BRITNEY [address] 2022-05-04 2022-05-04 Refill Bhimaraj, 1.2.840.1 [id number] 2099 [id number] Methodi 00:00:00 00:00:[address] 3.430.2.7 Hospit a .3.919125 l .8 2022-04-23 2022-04-23 Orders Whaley, 1.2.840.1 [id number] 6169 Methodi 00:00:00 00:00:00 Only Sapphire 52891.1.[address] 3.430.2.7 Hospit a .3.700205 l .8 2022-04-22 2022-04-22 Outpatient Lapin_S [facility] [id number] [place] 00:00:00 00:00:00 [address] [facility] 2022-04-03 2022-04-03 Orders Karl, 1.2.840.1 [id number] 754 [id number] Methodi 00:00:00 00:00:00 Only Rebecca 80057.1.[address] 3.430.2.7 Hospit a .3.459547 l .8 2022-03-29 2022-03-29 Refill Sadhu, 1.2.840.1 [id number] 5069 Methodi 00:00:00 00:00:[address] [place] 3.430.2.7 Hospit a .3.934793 l .8 2022-03-26 2022-03-26 Refill Sadhu, 1.2.840.1 [id number] 8471 Methodi 00:00:00 00:00:[address] [place] 3.430.2.7 Hospit a .3.721121 l .8 2022-03-20 2022-03-20 Travel 1.2.840.1 1.2.897.563 3382 [id number] Methodi 00:00:00 00:00:[address] 3.430.2.7 0.2.7.3.698 Ho spita .3.737638 084.8 l .8 2022-03-17 2022-03-17 Clinical Jose Luis, 1.2.840.1 [id number] 37639 Univers 10:30:00 12:41:26 Support Benjamin 05378.1.1 ity of 3.412.2.7 [place] .3.546108 .8 [facility] 2022-03-17 2022-03-17 Travel 1.2.840.1 1.2.990.546 3775 [id number] Univers 00:00:00 00:00:00 31511.1.1 350.1.13.41 ity of 3.412.2.7 2.2.7.3.698 [place] .3.323818 084.8 .8 [facility] 2022-03-17 2022-03-17 Orders Verna, 1.2.840.1 [id number] Univers 00:00:00 00:00:00 Only Uday 64447.1.1 ity of 3.412.2.7 [place] .3.558056 MD Fitzpatrick8 [facility] 2022-03-11 2022-03-11 Documentat Jessie, 1.2.840.1 [id number] Methodi 00:00:00 00:00:00 ion Tracy 66006.1.[address] 3.430.2.7 Hospit a .3.967975 l .8 2022-02-26 2022-02-26 Sammy Dobson, 1.2.840.1 [id number] 823 [id number] Methodi 00:00:00 00:00:00 Only Lefty 19977.1.[address] 3.430.2.7 Hospit a .3.133054 l .8 2022-02-25 2022-02-25 [facility] Leo, 1.2.840.1 [id number] 09565 Methodi 12:15:00 23:59:00 Estefany Gutierrez 49387.1.1 588 s t 3.430.2.7 Hospit a .3.275901 l .8 2022-02-25 2022-02-25 Office Leo Tracy Wang. 1.2.840.1 [id number] Methodi 14:00:00 14:15:00 Visit Margaret Topete 80402.1.[address] 3.430.2.7 Hospit a .3.155306 l .8 2022-02-25 2022-02-25 [facility] Leo, 1.2.840.1 [id number] 40202 Methodi 09:12:37 12:14:00 Encounter Tracy Gutierrez 83510.1.1 001 s t 3.430.2.7 Hospit a .3.241416 l .8 2022-02-25 2022-02-25 [facility] Leo, 1.2.840.1 [id number] 58054 Methodi 08:39:58 09:11:00 Encounter Tracy Gutierrez 27222.1.1 586 s t 3.430.2.7 Hospit a .3.525231 l .8 2022-02-25 2022-02-25 [facility] 1[facility]2.840[facility]1 [id number] 4586 Methodi 00:00:00 00:00:00 [facility] 77573.1.[address] 3.430.2.7 Hospit a .3.685976 l .8 2022-02-25 2022-02-25 Travel 1.2.840.1 1.2.595.698 1384 070778 Methodi 00:00:00 00:00:[address] 3.430.2.7 0.2.7.3.698 spita .3.349384 084.8 l .8 2022-02-25 2022-02-25 Outpatient LEO [facility] [id number] [place] 00:00:00 00:00:00 TRACY [address] 2022-02-25 2022-02-25 Outpatient LEO [facility] [id number] [address] [place] [address] 00:00:00 00:00:00 TRACY Casey[address] [facility] [address] 2022-02-25 2022-02-25 Outpatient LEO, [facility] [id number] [address] [place] 00:00:00 00:00:00 TRACY [address] 2022-02-25 2022-02-25 Outpatient LEO, [facility] [id number] [place] 00:00:00 00:00:00 TRACY [address] 2022-02-25 2022-02-25 Outpatient LEO, [facility] [id number] [address] [place] 00:00:00 00:00:00 TRACY [address] 2022-02-24 2022-02-24 Procedure Migden, 1.2.840.1 [id number] 1093 [id number] Univers 11:30:00 14:37:09 visit Benjamin 46136.1.1 ity of 3.412.2.7 [place] .3.701470 MD Hurtado [facility] 2022-02-24 2022-02-24 Procedure Migden, 1.2.840.1 [id number] 1093 [id number] Univers 11:30:00 14:37:09 visit Benjamin 09946.1.1 ity of 3.412.2.7 [place] .3.770316 MD Hurtado [facility] 2022-02-24 2022-02-24 Travel 1.2.840.1 1.2.949.082 5111 [id number] Univers 00:00:00 00:00:00 62128.1.1 350.1.13.41 ity of 3.412.2.7 2.2.7.3.698 [place] .3.501121 084.8 MD Hurtado [facility] 2022-02-24 2022-02-24 Travel 1.2.840.1 1.2.659.750 1779 [id number] Univers 00:00:00 00:00:00 67850.1.1 350.1.13.41 ity of 3.412.2.7 2.2.7.3.698 [place] .3.356048 084.8 MD Hurtado [facility] 2022-02-20 2022-02-20 Telephone Haroldo-Rom 1.2.840.1 [id number] Univers 00:00:00 00:00:00 ero, 75231.1.1 ity of [place] 3.412.2.7 [place] .3.553018 MD Hurtado [facility] [place] 2022-02-20 2022-02-20 Telephone Zarco-Rom 1.2.840.1 [id number] [facility] 00:00:00 00:00:00 ero, 62371.1.1 ity of [place] 3.412.2.7 [place] .3.551393 MD Hurtado [facility] 2022-02-17 2022-02-17 Telemedici Pablo, 1.2.840.1 [id number] 21 [id number] Methodi 15:00:00 15:23:17 ne Bob [address]3246.1.[address] [facility] 3.430.2.7 Hospit a .3.924701 l .8 2022-02-17 2022-02-17 Telephone Sri 1.2.840.1 [id number] 1093 [id number] [facility] 00:00:00 00:00:00 Albin 65722.1.1 it y of 3.412.2.7 [place] .3.014969 MD Hurtado [facility] 2022-02-17 2022-02-17 Travel 1.2.840.1 1.2.844.091 6408 [id number] Methodi 00:00:00 00:00:[address] 3.430.2.7 0.2.7.3.698 Ho spita .3.613183 084.8 l .8 2022-02-17 2022-02-17 Outpatient NOEMI, [facility] [id number] [address] 00:00:00 00:00:[address] 2022-02-17 2022-02-17 Telephone Sri 1.2.840.1 [id number] [facility] 00:00:00 00:00:00 Derekemberjuan 98504.1.1 it y of 3.412.2.7 [place] .3.961472 MD .8 [facility] 2022-02-16 2022-02-16 Outpatient Lapin_S [facility] [id number]- [address] 01:27:00 01:27:00 [address]59 [facility] 2022-02-16 2022-02-16 Outpatient Lapin_S [facility] [id number]- [address] [place] [address] 01:27:00 01:27:00 90572 [facility] 2022-02-16 2022-02-16 Outpatient Lapin_S [facility] [id number] 01:27:00 01:27:00 90921 [facility] 2022-02-16 2022-02-16 Sammy Gaffney, 1.2.840.1 [id number] [facility] 00:00:00 00:00:00 Only Nicole Elise 73986.1.1 i ty of 3.412.2.7 [place] .3.211022 MD Fitzpatrick8 [facility] 2022-02-16 2022-02-16 Travel 1.2.840.1 1.2.093.159 4717 [id number] Methodi 00:00:00 00:00:[address] 3.430.2.7 0.2.7.3.698 Ho spita .3.181523 084.8 l .8 2022-02-16 2022-02-16 Sammy Gaffney 1.2.840.1 [id number] [facility] 00:00:00 00:00:00 Only Nicole Elise 87872.1.1 i ty of 3.412.2.7 [place] .3.051236 MD Hurtado [facility] 2022-02-12 2022-02-12 Jenna Shah, 1.2.840.1 [id number] 67206 Methodi 00:00:00 00:00:[address] [facility] 3.430.2.7 Hospit a .3.044944 l .8 2022-02-12 2022-02-12 Jenna Fontaine, 1.2.840.1 [id number] 2100 [id number] Methodi 00:00:00 00:00:[address] 3.430.2.7 Hospit a .3.089989 l .8 2022-02-12 2022-02-12 Refill Pablo, 1.2.840.1 [id number] 09252 19462 Methodi 00:00:00 00:00:[address] [facility] 3.430.2.7 Hospit a .3.978165 l .8 2022-02-11 2022-02-11 Documentat Jeremías, 1.2.840.1 [id number] 2 [id number] Methodi 00:00:00 00:00:00 ion Lucero 15304.1.[address] 3.430.2.7 Hospit a .3.645326 l .8 2022-02-11 2022-02-11 Sammy Veronica, 1.2.840.1 [id number] 2100 [id number] Methodi 00:00:00 00:00:00 Only Lucero 84521.1.[address] 3.430.2.7 Hospit a .3.052002 l .8 2022-02-10 2022-02-10 Outpatient Lapin_S [facility] [id number]- [address] 04:26:00 04:26:00 [facility] 2022-02-10 2022-02-10 Refill Avila Bernalia 1.2.840.1 [id number] 21 [id number] Methodi 00:00:00 00:00:[address] 3.430.2.7 Hospit a .3.242327 l .8 2022-02-10 2022-02-10 Refill Haider, 1.2.840.1 [id number] 6213 Methodi 00:00:00 00:00:00 Britney [address]606.1.[address] [place] 3.430.2.7 Hospit a .3.626101 l .8 2022-02-10 2022-02-10 Outpatient Lapin, U [facility] [id number] c-d 00:00:00 00:00:00 Jaime 620-11ec-a Audrey [id number] 1abd40 2022-02-10 2022-02-10 Jaime [facility] [place] - [id number] librado 00:00:00 00:00:00 Audrey Sun MD: Vee De La Garza gy [address] U[address] [place] [id number] [facility] [address], [place] [address] , Ph. 2022-02-09 2022-02-09 Procedure Migden, 1.2.840.1 [id number] 1092 903981 Univers 19:30:00 19:30:00 visit Benjamin 40306.1.1 ity of 3.412.2.7 [place] .3.503827 MD Fitzpatrick8 [facility] 2022-02-09 2022-02-09 Procedure Migden, 1.2.840.1 [id number] 1092 540754 Univers 19:30:00 19:30:00 visit Benjamin 56629.1.1 ity of 3.412.2.7 [place] .3.889361 MD Hurtado [facility] 2022-02-09 2022-02-09 Procedure Migden, 1.2.840.1 [id number] 1092 241799 Univers 11:30:00 15:23:15 visit Benjamin 87734.1.1 ity of 3.412.2.7 [place] .3.135367 MD Hurtado [facility] 2022-02-09 2022-02-09 Procedure Migden, 1.2.840.1 986930710 1092 705547 Univers 11:30:00 15:23:15 visit Benjamin 37517.1.1 ity of 3.412.2.7 [place] .3.456553 MD Hurtado [facility] 2022-02-09 2022-02-09 Travel 1.2.840.1 1.2.675.967 6228 893862 [facility] 00:00:00 00:00:00 98323.1.1 350.1.13.41 ity of 3.412.2.7 2.[place]7.3.698 [place] .3.99[place]6 084.8 .8 [facility] 2022-02-09 2022-02-09 Travel 1.2.840.1 1.2.654.102 5862 204724 Univers 00:00:00 00:00:00 47572.1.1 350.1.13.41 ity of 3.412.2.7 [place]7.3.698 [place] .3.215581 084.8 .8 [facility] 2022-02-05 2022-02-05 Outpatient Lapin_S [facility] [id number] [place] 02:58:00 02:58:00 [facility] 2022-02-05 2022-02-05 Jenna Maloney, 1.2.840.1 [id number] [id number] 5119 Methodi 00:00:00 00:00:[address] [place] 3.430.2.7 Hospit a .3.605941 l .8 2022-02-05 2022-02-05 Orders Jessie, 1.2.840.1 [id number] 118887 0871 Methodi 00:00:00 00:00:00 Only Tracy 43808.1.[address] 3.430.2.7 Hospit a .3.965764 l .8 2022-02-04 2022-02-04 Travel 1.2.840.1 1.2.186.292 1983 729624 Methodi 00:00:00 00:00:[address] 3.430.2.7 0.2.7.3.698 Ho spita .3.030069 084.8 l .8 2022-02-03 2022-02-03 Outpatient Lapin_S [facility] [id number] [place] 03:07:00 03:07:00 [facility] 2022-02-03 2022-02-03 Orders Kwasi, 1.2.840.1 [id number] 649 [id number] [facility] 00:00:00 00:00:00 Only Paty 93379.1.1 ity of [place] 3.412.2.7 [place] .3.487976 MD Fitzpatrick8 [facility] 2022-02-03 2022-02-03 Orders Kwasi, 1.2.840.1 [id number] 743 [id number] Univers 00:00:00 00:00:00 Only Paty 56030.1.1 ity of [place] 3.412.2.7 [place] .3.031219 MD Fitzpatrick8 [facility] 2022-02-02 2022-02-02 Outpatient Lapin_S [facility] 405061- 202 [place] 03:21:00 03:21:00 [facility] 2022-02-02 2022-02-02 Telephone Kwasi, 1.2.840.1 [id number] 1 [id number] Univers 00:00:00 00:00:00 Paty 05938.1.1 ity of [place] 3.412.2.7 [place] .3.392998 MD Fitzpatrick8 [facility] 2022-02-02 2022-02-02 Telephone Kwasi 1.2.840.1 [id number] 1 [id number] Univers 00:00:00 00:00:00 Paty 71202.1.1 ity of [place] 3.412.2.7 [place] .3.899378 MD Fitzpatrick8 [facility] 2022-01-29 2022-01-29 Chepe Dobson 1.2.840.1 [id number] 2 [id number] Methodi 00:00:00 00:00:[address] 3.430.2.7 Hospit a .3.374705 l .8 2022-01-29 2022-01-29 Orders Olya 1.2.840.1 [id number] 774 [id number] Methodi 00:00:00 00:00:00 Only Romica 33715.1.[address] 3.430.2.7 Hospit a .3.502936 l .8 2022-01-28 2022-01-28 Sammy Gillespie 1.2.840.1 [id number] 947071 0595 Univers 00:00:00 00:00:00 Only Uday 52592.1.1 ity of 3.412.2.7 [place] .3.302321 MD Fitzpatrick8 [facility] 2022-01-28 2022-01-28 Orders Gillespie, 1.2.840.1 [id number] 684928 2081 Univers 00:00:00 00:00:00 Only Uday 52253.1.1 ity of 3.412.2.7 [place] .3.771579 .8 [facility] 2022-01-26 2022-01-26 Refminerva Vargheseado, 1.2.840.1 [id number] 646 2226238 Methodi 00:00:00 00:00:[address] 3.430.2.7 Hospit a .3.988159 l .8 2022-01-22 2022-01-22 Telephone Jason, 1.2.840.1 [id number] 2099 232266 Methodi 00:00:00 00:00:[address] 3.430.2.7 Hospit a .3.842904 l .8 2022-01-21 2022-01-21 [facility], 1.2.840.1 [id number] Methodi 13:00:00 23:59:00 Encounter Tracy Mustafa50.1.1 702 s t 3.430.2.7 Hospit a .3.634355 l .8 2022-01-21 2022-01-21 [facility] Leo, 1.2.840.1 [id number] Methodi 09:00:00 12:59:00 Encounter Tracy Mckeon.1.1 461 s t 3.430.2.7 Hospit a .3.228775 l .8 2022-01-21 2022-01-21 [facility] Leo, 1.2.840.1 [id number] Methodi 07:53:09 08:59:00 Encounter Tracy Gutierrez 78199.1.1 857 s t 3.430.2.7 Hospit a .3.305910 l .8 2022-01-21 2022-01-21 Telephone Sai, 1.2.840.1 [id number] 21 [id number] Methodi 00:00:00 00:00:[address] 3.430.2.7 Hospit a .3.392757 l .8 2022-01-21 2022-01-21 Outpatient LEO, [facility] [id number] 687 [place] 00:00:00 00:00:00 TRACY [address] 2022-01-21 2022-01-21 Outpatient LEO, [facility] [id number] [address] [place] [address] 00:00:00 00:00:00 TRACY [address] 2022-01-21 2022-01-21 Outpatient LEO, [facility] [id number] 787 [place] 00:00:00 00:00:00 TRACY [address] 2022-01-20 2022-01-20 Travel 1.2.840.1 1.2.390.342 5290 144613 Methodi 00:00:00 00:00:[address] 3.430.2.7 0.2.7.3.698 mylata .3.819360 084.8 l .8 2021-12-17 2022-01-19 Office Leo, 1.2.840.1 [id number] 693541 5592 Methodi 14:30:00 00:19:06 Visit Tracy Gutierrez 20769.1.[address] 3.430.2.7 Hospit a .3.366620 l .8 2022-01-16 2022-01-[address] [facility] 4 1.2.840.114 13 [id number] [place] 00:00:00 00:00:00 Benjamin 350.1.13.58 He alth 9.2.7.2.686 065.6275959 1 2022-01-15 2022-01-15 Refill Sabino, 1.2.840.1 [id number] 501 [id number] Methodi 00:00:00 00:00:[address] 3.430.2.7 Hospit a .3.028894 l .8 2022-01-12 2022-01-12 [facility], 1.2.840.1 [id number] 24907 22681 Methodi 10:05:48 23:59:00 Encounter Tracy Mustafa50.1.1 077 s t 3.430.2.7 Hospit a .3.379820 l .8 2022-01-12 2022-01-12 [facility], 1.2.840.1 [id number] 49354 Methodi 09:00:00 10:04:00 Encounter Tracy Gutierrez 39885.1.1 927 s t 3.430.2.7 Hospit a .3.442059 l .8 2022-01-12 2022-01-12 [facility] Leo, 1.2.840.1 [id number] 98862 79128 Methodi 07:38:37 08:59:00 Encounter Tracy Matt 00394.1.1 633 s t 3.430.2.7 Hospit a .3.039356 l .8 2022-01-12 2022-01-12 [facility], 1.2.840.1 [id number] 907921 6436 Methodi 00:00:00 00:00:00 Only Tracy 14596.1.[address] 3.430.2.7 Hospit a .3.016747 l .8 2022-01-12 2022-01-12 Travel 1.2.840.1 1.2.144.830 5558 888688 Methodi 00:00:00 00:00:[address] 3.430.2.7 0.2.7.3.698 spita .3.159512 084.8 l .8 2022-01-12 2022-01-12 Outpatient [facility] [id number] 694 [place] 00:00:00 00:00:00 TRACY [address] 2022-01-12 2022-01-12 Outpatient [facility] [id number] 280 [place] 00:00:00 00:00:00 TRACY Sahu [facility] 2022-01-12 2022-01-12 Outpatient [facility] [id number] 787 [place] 00:00:00 00:00:00 TRACY [address] 2022-01-02 2022-01-[address] [facility] 4 1.2.269.083 5890 91174 [place] 09:30:00 10:27:45 Visit Benjamin 350.1.13.58 Zi mari 9.2.7.2.686 029.5867179 1 2022-01-01 2022-01-01 Refill Minal 1.2.840.1 [id number] 2099 389417 Methodi 00:00:00 00:00:[address] 3.430.2.7 Hospit a .3.403918 l .8 2022-01-01 2022-01-01 Telephone Angus, 1.2.840.1 [id number] 2 [id number] Methodi 00:00:00 00:00:[address] 3.430.2.7 Hospit a .3.918259 l .8 2021-12-30 2021-12-30 Telephone Aniceto, 1.2.840.1 [id number] 2099 000243 Methodi 00:00:00 00:00:[address] 3.430.2.7 Hospit a .3.486975 l .8 2021-12-29 2021-12-29 Orders Rideau, 1.2.840.1 [id number] 893522 1897 Methodi 00:00:00 00:00:00 Only Vero 48744.1.[address] 3.430.2.7 Hospit a .3.307471 l .8 2021-12-28 2021-12-28 Refill Minal, 1.2.840.1 413415102 2100 525040 Methodi 00:00:00 00:00:[address] 3.430.2.7 Hospit a .3.848446 l .8 2021-12-25 2021-12-25 [facility] Boaz Ibarra 1.2.840.1 [id number] 2 [id number] Methodi 12:10:59 23:59:[address] 3.430.2.7 Hospit a .3.263931 l .8 2021-12-25 2021-12-25 [facility] Boaz Ibarra 1.2.840.1 [id number] 2 [id number] Methodi 12:10:42 23:59:[address] 3.430.2.7 Hospit a .3.587028 l .8 2021-12-25 2021-12-25 Travel 1.2.840.1 1.2.101.999 2489 638496 Methodi 00:00:00 00:00:[address] 3.430.2.7 0.2.7.3.698 Ho spita .3.419507 084.8 l .8 2021-12-25 2021-12-25 Outpatient LEO [facility] [id number] 834 [place] 00:00:00 00:00:00 TRACY [address] 2021-12-25 2021-12-25 Outpatient BOAZ IBARRA [facility] 320 [id number] [place] 00:00:00 00:00:[address] 2021-12-25 2021-12-25 Outpatient BOAZ IBARRA [facility] 725 [id number] [place] 00:00:00 00:00:[address] 2021-12-19 2021-12-19 Anuj Banegas.2.840.1 [id number] 2 [id number] Methodi 00:00:00 00:00:[address] 3.430.2.7 Hospit a .3.115569 l .8 2021-12-19 2021-12-19 Sammy Dobson 1.2.840.1 [id number] 164 4876811 Methodi 00:00:00 00:00:00 Only Romica 50274.1.[address] 3.430.2.7 Hospit a .3.623848 l .8 2021-12-19 2021-12-19 Sammy Dobson 1.2.840.1 [id number] 025 5154413 Methodi 00:00:00 00:00:00 Only Romica 28130.1.[address] 3.430.2.7 Hospit a .3.787821 l .8 2021-12-18 2021-12-18 Travel 1.2.840.1 1.2.065.441 6253 851005 Methodi 00:00:00 00:00:[address] 3.430.2.7 0.2.7.3.698 Ho spita .3.715007 084.8 l .8 2021-12-18 2021-12-18 Orders Rideau, 1.2.840.1 [id number] 676602 5495 Methodi 00:00:00 00:00:00 Only Vero 66259.1.[address] 3.430.2.7 Hospit a .3.799727 l .8 2021-12-17 2021-12-17 Travel 1.2.840.1 1.2.225.788 5536 757751 Methodi 00:00:00 00:00:[address] 3.430.2.7 0.2.7.3.698 Ho spita .3.089640 084.8 l .8 2021-12-17 2021-12-17 [facility] [id number] 871 [place] 00:00:00 00:00:00 TRACY [address] 2021-12-10 2021-12-10 Telemedici Boaz Ibarra 1.2.840.1 [id number] Methodi 16:00:00 16:30:[address] 3.430.2.7 Hospit a .3.178387 l .8 2021-12-10 2021-12-10 Documentat Jessie, 1.2.840.1 [id number] 164 3576918 Methodi 00:00:00 00:00:00 maria esther Stone 49926.1.[address] 3.430.2.7 Hospit a .3.243015 l .8 2021-12-10 2021-12-10 Outpatient BOAZ IBARRA [facility] 198 [id number] [place] 00:00:00 00:00:[address] 2021-12-09 2021-12-09 Telephone Boaz Ibarra 1.2.840.1 [id number] Methodi 00:00:00 00:00:[address] 3.430.2.7 Hospit a .3.022934 l .8 2021-12-08 2021-12-08 Telephone Aniceto, 1.2.840.1 [id number] 2100 697082 Methodi 00:00:00 00:00:[address] 3.430.2.7 Hospit a .3.221605 l .8 2021-12-08 2021-12-08 Refill Minal, 1.2.840.1 038243185 2100 536068 Methodi 00:00:00 00:00:[address] 3.430.2.7 Hospit a .3.337385 l .8 2021-11-19 2021-12-05 Office Yariel Bettencourt 1.2.840.1 104 708832 1184648079 Methodi 14:00:00 00:46:29 Visit Tracy Bailey 82379.1.[address] 3.430.2.7 Hospit a .3.444681 l .8 2021-12-05 2021-12-05 Telephone Olya 1.2.840.1 [id number] 2 [id number] Methodi 00:00:00 00:00:[address] 3.430.2.7 Hospit a .3.202185 l .8 2021-12-02 2021-12-02 Telephone Olya 1.2.840.1 [id number] 2 [id number] Methodi 00:00:00 00:00:[address] 3.430.2.7 Hospit a .3.080900 l .8 2021-11-26 2021-11-26 Hospital [facility], 1.2.840.1 [id number] Methodi 10:04:00 23:59:00 Encounter Smooth 06068.1.[address] 3.430.2.7 Hospit a .3.050923 l .8 2021-11-26 2021-11-26 Hospital Leo, 1.2.840.1 [id number] Methodi 08:00:00 10:03:00 Encounter Tracy Gutierrez 85277.1.1 161 s t 3.430.2.7 Hospit a .3.785864 l .8 2021-11-26 2021-11-26 Travel 1.2.840.1 1.2.263.084 1983 201044 Methodi 00:00:00 00:00:[address] 3.430.2.7 0.2.7.3.698 Ho spita .3.246032 084.8 l .8 2021-11-26 2021-11-26 Outpatient LEO, [facility] [id number] 909 [place] 00:00:00 00:00:00 TRACY [address] [facility] 2021-11-26 2021-11-26 Outpatient [facility]LY [facility] [id number] 198 [place] 00:00:00 00:00:[address]MOOTH [address] 2021-11-21 2021-11-21 Telephone Olya, 1.2.840.1 [id number] 2 [id number] Methodi 00:00:00 00:00:[address] 3.430.2.7 Hospit a .3.959726 l .8 2021-11-21 2021-11-21 Travel 1.2.840.1 1.2.620.318 3282 695234 Methodi 00:00:00 00:00:[address] 3.430.2.7 0.2.7.3.698 Ho spita .3.212293 084.8 l .8 2021-11-21 2021-11-21 Telephone Delos 1.2.840.1 [id number] 2099 583352 Methodi 00:00:00 00:00:00 Adidson, 44948.1.[address] [place] 3.430.2.7 Hospit a .3.833098 l .8 2021-11-20 2021-11-20 Telephone [place], 1.2.840.1 180680084 2100 711717 Methodi 00:00:00 00:00:[address] 3.430.2.7 Hospit a .3.769775 l .8 2021-11-20 2021-11-20 Orders Rideau, 1.2.840.1 [id number] 000926 6261 Methodi 00:00:00 00:00:00 Only Vero 60493.1.[address] 3.430.2.7 Hospit a .3.022259 l .8 2021-11-19 2021-11-19 Travel 1.2.840.1 1.2.869.512 2813 991372 Methodi 00:00:00 00:00:[address] 3.430.2.7 0.2.7.3.698 Ho spita .3.350925 084.8 l .8 2021-11-19 2021-11-19 Orders Olya, 1.2.840.1 [id number] 544 0244499 Methodi 00:00:00 00:00:00 Only Romica 56083.1.[address] 3.430.2.7 Hospit a .3.842392 l .8 2021-11-19 2021-11-19 Outpatient RUT[facility]ERLY [facility] 79815 94279 [place] 00:00:00 00:00:[address]AR[address]EL [address] 2021-11-17 2021-11-17 Documentat [facility], 1.2.840.1 [id number] 070 5406819 Methodi 00:00:00 00:00:00 ion Tracy 35092.1.[address] 3.430.2.7 Hospit a .3.685061 l .8 2021-11-16 2021-11-16 Refill Jessie, 1.2.840.1 481410189 056613 0252 Methodi 00:00:00 00:00:[address] 3.430.2.7 Hospit a .3.046978 l .8 2021-11-12 2021-11-15 [facility] Soha Duran 1.2.840.1 [id number] Methodi 19:41:00 16:44:00 Encounter BlankKathleenrick Rodrigues 00555.1.[address] Pebbles Venegas 3.430.2.7 [facility] .3.311354 l .8 2021-11-12 2021-11-15 Outpatient [facility] 808 [id number] 218 [place] 00:00:00 00:00:[address] TRENTON [address] 2021-11-12 2021-11-12 Travel 1.2.840.1 1.2.926.389 0843 322222 Methodi 00:00:00 00:00:[address] 3.430.2.7 0.2.7.3.698 Ho spita .3.800089 084.8 l .8 2021-11-08 2021-11-08 Refill Minal, 1.2.840.1 [id number] 2099 255535 Methodi 00:00:00 00:00:[address] 3.430.2.7 Hospit a .3.788300 l .8 2021-10-30 2021-10-30 Documentat Nahum, 1.2.840.1 [id number] 442 6563789 Methodi 00:00:00 00:00:00 ion Rob 09915.1.[address] Nate 3.430.2.7 Hospit a .3.008371 l .8 2021-10-30 2021-10-30 Telephone Pops, 1.2.840.1 [id number] 2099 592843 Methodi 00:00:00 00:00:[address] 3.430.2.7 Hospit a .3.762838 l .8 2021-10-28 2021-10-28 [facility] 1.2.840.1 [id number] Methodi 09:15:00 09:30:00 Visit Geraldine Braun 02432.1.[address] 3.430.2.7 Hospit a .3.954625 l .8 2021-10-28 2021-10-28 Travel 1.2.840.1 1.2.621.775 3731 956971 Methodi 00:00:00 00:00:[address] 3.430.2.7 0.2.7.3.698 Ho spita .3.250043 084.8 l .8 2021-10-28 2021-10-28 Outpatient [facility] [id number] 129 [place] 00:00:00 00:00:[address] KHALIDA [address] 2021-10-27 2021-10-27 Refill [facility], 1.2.840.1 [id number] 649887 9795 Methodi 00:00:00 00:00:[address] [place] 3.430.2.7 Hospit a .3.234732 l .8 2021-10-27 2021-10-27 Refill Minal, 1.2.840.1 [id number] 2100 325254 Methodi 00:00:00 00:00:[address] 3.430.2.7 Hospit a .3.460290 l .8 2021-10-24 2021-10-24 [facility], 1.2.840.1 [id number] 11231 45876 Methodi 09:51:52 23:59:00 Encounter Khalida 04830.1.[address] 3.430.2.7 Hospit a .3.756765 l .8 2021-10-24 2021-10-24 [facility], 1.2.840.1 [id number] 53361 95144 Methodi 08:31:47 09:50:00 Encounter Ashrith 88810.1.[address] 3.430.2.7 Hospit a .3.514332 l .8 2021-10-24 2021-10-24 Travel 1.2.840.1 1.2.416.707 5869 678250 Methodi 00:00:00 00:00:[address] 3.430.2.7 0.2.7.3.698 Ho spita .3.229635 084.8 l .8 2021-10-24 2021-10-24 Outpatient [facility] [id number] 129 [place] 00:00:00 00:00:[address] AHMED [address] 2021-10-24 2021-10-24 Outpatient [facility] [id number] 893 [place] 00:00:00 00:00:00 ASHRITH 359 Method i 2021-10-24 2021-10-24 Outpatient [facility] [id number] 893 [place] 00:00:00 00:00:00 ASHRITH 360 Method i 2021-10-23 2021-10-23 Refill [facility], 1.2.840.1 [id number] 2099 873558 Methodi 00:00:00 00:00:[address] 3.430.2.7 Hospit a .3.298103 l .8 2021-10-22 2021-10-22 Travel 1.2.840.1 1.2.075.682 4720 187636 Methodi 00:00:00 00:00:[address] 3.430.2.7 0.2.7.3.698 Ho spita .3.450676 084.8 l .8 2021-10-22 2021-10-22 Refill [facility], 1.2.840.1 134007314 807867 8226 Methodi 00:00:00 00:00:[address] [place] 3.430.2.7 Hospit a .3.871651 l .8 2021-10-16 2021-10-16 Refill Sabino, 1.2.840.1 [id number] 560 4418852 Methodi 00:00:00 00:00:[address] 3.430.2.7 Hospit a .3.171407 l .8 2021-10-13 2021-10-13 Orders Jessie, 1.2.840.1 [id number] 416344 0595 Methodi 00:00:00 00:00:00 Only Tracy 04269.1.[address] 3.430.2.7 Hospit a .3.217950 l .8 2021-10-09 2021-10-09 Travel 1.2.840.1 1.2.878.810 6309 374314 Methodi 00:00:00 00:00:[address] 3.430.2.7 0.2.7.3.698 Ho spita .3.011278 084.8 l .8 2021-10-08 2021-10-08 Documentat Jessie, 1.2.840.1 [id number] 967 9954061 Methodi 00:00:00 00:00:00 ion Tracy 19655.1.[address] 3.430.2.7 Hospit a .3.013720 l .8 2021-10-05 2021-10-05 Refill Pablo, 1.2.840.1 [id number] 28 Methodi 00:00:00 00:00:[address] [place] 3.430.2.7 Hospit a .3.258178 l .8 2021-09-05 2021-09-12 Inpatient [facility] [id number] [place] 00:00:00 00:00:00 MAYURI [address] 2021-08-25 2021-08-25 Outpatient KAUSHIKFORMERLY [facility], [facility] [id number] [place] 00:00:00 00:00:00 KHALIDA 959 Method i 2021-08-25 2021-08-25 Outpatient MINAL [facility] [id number] [place] 00:00:00 00:00:00 YASH 198 Method i 2021-07-04 2021-07-[address] [facility] 4 1.2.002.575 [id number] [place] 09:30:00 10:47:19 Visit Benjamin 350.1.13.58 He alth 9.2.7.2.686 [id number] 1 2021-06-23 2021-06-23 Outpatient Zev BOOGIE [facility] [id number] [facility] 10:40:00 10:40:00 RIGOBERTO garner [facility] 2021-06-23 2021-06-23 Imm/Inj Nurse, Adc Pob Immunization [facility] 1.2.840.114 [id number] [facility] 10:23:00 10:23:14 Visit Rigoberto Boogie 350.1.13 .10 pascual [facility] 4.2.7.2.686 Fermín Short [id number] Ne dical [address] 2021-05-13 2021-05-13 Outpatient MAGNUS RUFF [facility] [id number] [place] 00:00:00 00:00:00 868 Method i 2021-04-03 2021-04-03 Outpatient PABLO [facility] [id number] 1865 [place] 00:00:00 00:00:00 MOHAMMAD 798 [address] 2021-03-27 2021-03-27 Outpatient PABLO [facility] [id number] [place] 00:00:00 00:00:00 MOHAMMAD 820 [facility] 2021-03-07 2021-03-[address] [facility] 4 1.2.579.108 [id number] [place] 09:32:28 10:24:45 Visit Benjamin 350.1.13.58 He alth 9.2.7.2.686 [id number] 1 2021-03-07 2021-03-[address] [facility] 4 1.2.088.510 [id number] 09:32:28 10:24:45 Visit Benjamin Connell.1.13.58 9.2.7.2.686 [id number] 1 2021-03-04 2021-03-04 Outpatient KAUSHIK, [facility] [id number] [place] 00:00:00 00:00:00 ASHRITH [address] 2021-02-28 2021-02-28 Outpatient SPARKLE, [facility] [id number] [place] 00:00:00 00:00:00 RAYAN [address] 2021-02-20 2021-02-20 Outpatient ROCK, [facility] [id number] [place] 00:00:00 00:00:00 MAHWASH [address] 2021-02-20 2021-02-20 Outpatient NAKAWAH, [facility] [id number] [place] 00:00:00 00:00:00 MOHAMMAD [address] 2021-02-20 2021-02-20 Outpatient ROCK, [facility] [id number] [place] 00:00:00 00:00:00 MAHWASH [address] 2021-02-20 2021-02-20 Outpatient ROCK, [facility] [id number] [place] 00:00:00 00:00:00 MAHWASH [address] 2021-02-20 2021-02-20 Outpatient BHIMARAJ, [facility] [id number] [place] 00:00:00 00:00:00 YASH [address] 2021-02-20 2021-02-20 Outpatient ROCK, [facility] [id number] [place] 00:00:00 00:00:00 MAHWASH [address] 2021-02-20 2021-02-20 Outpatient ROCK, [facility] [id number] [place] 00:00:00 00:00:00 MAHWASH [address] 2021-02-19 2021-02-19 Outpatient NAKAWAH, [facility] [id number] [place] 00:00:00 00:00:00 MOHAMMAD [address] 2020-10-31 2020-10-31 Outpatient [facility] [id number] [place] 00:00:00 00:00:[address] 2020-10-03 2020-10-03 Outpatient PABLO, [facility] [id number] [place] 00:00:00 00:00:00 MOHAMMAD [address] 2020-10-03 2020-10-03 Outpatient TWIN, [facility] [id number] [place] 00:00:00 00:00:00 RAKAN [address] 2020-09-06 2020-09-06 Outpatient TAMANNA, [facility] [id number] [place] 00:00:00 00:00:00 FAMILIA [address] 2020-08-07 2020-08-07 Orders Doctor TITI 1.2.840.114 [id number] 00:00:00 00:00:00 Only Unassigned, ZEESHAN 350.1.13.[address] [place] [facility] 4.2.7.2.686 [id number] 009 2020-07-18 2020-07-18 Outpatient NOEMI [facility] [id number] [place] 00:00:00 00:00:00 MOHAMMAD [address] 2020-07-18 2020-07-18 Outpatient [facility] [id number] [place] 00:00:00 00:00:[address] 2020-07-18 2020-07-18 Outpatient NOEMI [facility] [id number] [place] 00:00:00 00:00:00 MOHAMMAD [address] 2020-07-09 2020-07-09 Outpatient WENCESLAO, [facility] [id number] [place] 00:00:00 00:00:00 YASH [address] 2020-07-09 2020-07-09 Outpatient RYAN, [facility] [id number] [place] 00:00:00 00:00:00 AYSH [address] 2020-05-30 2020-05-30 Outpatient NOEMI [facility] [id number] [place] 00:00:00 00:00:00 MOHAMMAD [address] 2020-05-13 2020-05-13 [facility] [id number] [place] 00:00:00 00:00:00 YASH [address] 2020-05-07 2020-05-07 [facility] [id number] [place] 00:00:00 00:00:00 BRITNEY [address] 2020-02-28 2020-02-28 Outpatient GEOVANNI, [facility] [id number] [place] 00:00:00 00:00:00 YAZ [address] 2020-02-26 2020-02-26 Outpatient NAKAWAH, [facility] [id number] [place] 00:00:00 00:00:00 MOHAMMAD 735 [address] 2020-02-21 2020-02-21 Outpatient GEOVANNI, [facility] [id number] [place] 00:00:00 00:00:00 YAZ [address] 2020-02-08 2020-02-08 Outpatient GEOVANNI, [facility] [id number] [place] 00:00:00 00:00:00 YAZ 400 Method i 2019-12-06 2019-12-06 Outpatient AHMAD, [facility] [id number] [place] 00:00:00 00:00:00 PORTILLO 003 Metho di 2019-11-07 2019-11-07 Outpatient KAUSHIK, [facility] [id number] [address] [place] 00:00:00 00:00:00 ASHRITH 7[address] 2019-11-07 2019-11-07 Outpatient KAUSHIK, [facility] [id number] [address] 00:00:00 00:00:[address] 2019-11-02 2019-11-02 Outpatient KAUSHIK, [facility] [id number] [address] [place] 00:00:00 00:00:00 ASHRITH [address] 2019-11-02 2019-11-02 Outpatient KAUSHIK, [facility] [id number] [address] [place] 00:00:00 00:00:00 ASHRITH [address] 2019-11-02 2019-11-02 Outpatient KAUSHIK, [facility] [id number] [address] [place] 00:00:00 00:00:00 ASHRITH [address] 2019-11-02 2019-11-02 Outpatient KAUSHIK, [facility] [id number] [address] [place] 00:00:00 00:00:00 ASHRITH 830 [address] i 2019-10-24 2019-10-24 Hospital Radiology [facility] [id number] 11:09:00 23:59:00 Encounter Oliver [id number] [place] [id number] [place] [id number] 2019-10-24 2019-10-24 Orders Doctor TITI [id number] 00:00:00 00:00:00 Only Unassigned, ZEESHAN [id number] [place] [facility] [id number] 2018-04-08 2018-04-19 Inpatient [facility] [id number] [place] 04:09:00 00:45:[address] 2018-04-08 2018-04-19 Inpatient [facility] [id number] [place] 04:09:00 00:45:[address] 2018-04-07 2018-04-18 Outpatient Wally [facility] [id number] 23:09:00 19:45:00 Viri Landeros 2018-04-07 2018-04-18 Outpatient Wally [facility] [id number] 23:09:00 19:45:00 Viri Landeros 2016-08-06 2016-08-11 Outpatient YOSSI AMAYA [facility] [id number] [id number] 08:47:07 15:20:31 BENJAMIN huggins Results Test Description Test Time Test Comments Results Result Comments Source Lipid panel 2022-05-02 23:09:00 Test Item Value Reference Range Interpretation Comme nts Cholesterol, total 151 mg/dL See_Comment [Automat ed message] The (test code = 2093-3) system which generated this result tra nsmitted reference range : <=200. The reference r renu was not used to int erpret this result as normal/abnormal . HDL cholesterol (test 58 mg/dL See_Comment [Auto mated message] The code = 2085-9) system which generated this result tra nsmitted reference range : > OR = 40. The referen ce range was not used to interpret this result as normal/abnormal . Triglycerides (test 101 mg/dL See_Comment [Automa karla message] The code = 2571-8) system which generated this result tra nsmitted reference range : <=150. The reference r renu was not used to int erpret this result as normal/abnormal . LDL cholesterol mg/dL (calc) Reference ra nge: <100 calculated (test code = Shira florian range <100 03119-2) mg/dL for prima ry prevention; <70 mg/dL for patients with C HD or diabetic patien ts with > or = 2 CHD risk factors. LDL-C is now ca lculated using the Ana Maria Zimmerman calculation, wh ich is a validated novel method providing edmar r accuracy than the Friede chela equation in the estimation of L DL-C. Pan SS et al . MARKO. 2013;310(66): 9 595-1586 (http://educati on.[employer]/f aq/SXB386) Cholesterol/HDL ratio See_Comment [Auto mated message] The (test code = 9830-1) system which generated this result tra nsmitted reference range : <5.0 (calc). The ref erence range was not u sed to interpret this result as normal/abnormal . Non-HDL cholesterol See_Comment For christi ents with (test code = 75113-8) diabet es plus 1 major ASCVD risk fact or, treating to a n on-HDL-C goal of <100 mg /dL (LDL-C of <70 mg/dL) i s considered a th erapeutic option. [Automa karla message] The sy stem which generated this result transmitted ref erence range: <130 mg/ dL (calc). The reference r renu was not used to int erpret this result as normal/abnormal . HOWARD (test code = HOWARD) FASTING:YES FASTING: YES RAC (test code = RAC) Performing Organization Information: Site ID: RGA [facility]: [facility] Address: [address] [place] [id number] Director: Rakan Aguirre [facility] [id number] 23:09:00 Test Item Value Reference Interpretation Comments Range Hemoglobin A1C See_Comment H For someone w ithout (test code = known diabetes, a 4548-4) hemoglobin A1c value between 5.7% an d 6.4% is consist ent withprediabetes and should be confi rmed with a follow-u p test. For someo ne with known diab etes, a value <7%indicates that their diabetes is well controlled . P8zhbbxfca shou ld be individualized based on duration ofdiabetes, age , comorbid condit ions, and otherconsiderat ions. This assay resu lt is consistent with an increased risko f diabetes. Curre ntly, no consensus ex ists regarding use ofhemoglobin A1 c for diagnosis of diabetes for children. [Auto mated message] The sy stem which generated this result transmit karla reference range : <5.7 % of total Hgb. The reference r renu was not used to interpret this result as normal/abnormal . HOWARD (test code = FASTING:YES HOWARD) FASTING: YES RAC (test code = Performing RAC) Organization Information: Site ID: Della [facility] Address: [address] [place] [address] Director: Rakan Lovellge Lab Interpretation Abnormal (test code = 60899-9) [facility]enton[facility], [id number] 23:09:00 Test Item Value Reference Range Interpretation Comments T4, free (test code 1.0 ng/dL 0.8-1.8 = 3024-7) HOWARD (test code = FASTING:YES FASTING: YES HOWARD) RAC (test code = Performing Organization RAC) Information: Site ID: CHIOMA Name: [facility] Address: [address] [place] [address] Director: Milton Babs [facility] CenterThyroid stimulating [id number] 23:09:00 Test Item Value Reference Range Interpretation Comments TSH (test See_Comment [Automated mes cresencio] code = The system ic h 3016-3) generated this result transmit karla reference range : 0.40 - 4.50 mIU /L. The reference r renu was not used to interpret this result as normal/abnormal . HOWARD (test FASTING:YES FASTING: code = HOWARD) YES RAC (test Performing code = RAC) Organization Information: Site ID: [facility] Name: [facility] Address: [address] [place] [address] Director: [facility] 25 hydroxy [id number] 23:09:00 Test Item Value Reference Range Interpretation Comments Vitamin D, 47 ng/mL 30-100 Vitamin D Statu s 25-hydroxy (test 25-OH Vitam in D: code = 1988-) Deficiency: < 20 ng/mLInsufficie ncy : 20 - 29 ng/mLOptimal: > or = 30 ng/mL F or 25-OH Vitamin D testing on patients on D2-supplementat ion and patients fo r whom quantitati on of D2 and D3 fractions is required, the QuestAssureD(TM )25 -OH VIT D, (D2,D3), LC/MS/ MS is recommended: order code 9288 8 (patients >2yrs).See Note 1 Note 1 For additional information, please refer to http://educatio n.Q uestDiagnostics .co m/faq/SRJ973 (T his link is being provided for informational/e deric ational purpose s only.) HOWARD (test code = FASTING:YES FASTING: HOWARD) YES RAC (test code = Performing RAC) Organization Information: Site ID: RGA [facility]: [facility] Address: [address] [place] [id number] Director: Milton Babs [facility]The [facility] HospitalMicroalbumin / creatinine urine [id number] 23:09:00 Test Item Value Reference Interpretation Comments Range Creatinine, urine 156 mg/dL 20-320 (mg/dL) (test code = 2161-8) Microalbumin, urine 120.6 mg/dL See Note: Referenc e Range: (test code = [place] 78[address]-1) established Res ults verified by rep eat analysis on dilution. Microalbumin/creati See_Comment H The ADA defines nine ratio (test abnormaliti es in code = 9318-7) albuminexcret ion as follows: Albumi anthony Category Result (mcg/mg creatin ine) Normal to Mildl y increased <30Moderately increased 30-29 9 Severely increa sed > OR = 300 The AD A recommends that at least two of threespecimens collected withi n a 3-6 month perio d beabnormal befo re considering a patient to bewi thin a diagnostic category. [Auto mated message] The sy stem which generated this result transmit karla reference range : <30 mcg/mg creat. T he reference range was not used to interpret this result as normal/abnormal . HOWARD (test code = FASTING:YES HOWARD) FASTING: YES RAC (test code = Performing RAC) Organization Information: Site ID: CHIOMA [facility] Address: [address] [place] [id number] Director: Rakan Aguirre Lab Interpretation Abnormal (test code = 00355-2) [facility] Biopsy [id number] 18:28:33 Test Item Value Reference Range Interpretation Comments Submitted Clinical History p6rtyBMiNNRigDW5PML (test code = 02612) lFTRhr3lum2XtoRKvfQ OoYFyteUZaisXgla40n TB0iW98WR8hIQBzKmO6 THKuvaP7Emg5LSCjJJK prIYwG214p1cpl6sokc NluND1xNltHDPpqfftO fK4ZFipFGDxqojfLPj6 IAcmKUVycEB2RRTzhSB eA0PoUVFbGX6bpki8TV E9GIbzYLCeLzC5MVXgl JByYCMyzYjyYWwai010 TAL5TqKbMGTyflHykSn upJ5lAsFvHTHWQqXON3 KeoukgMHzijpD0a1Wbk wNvctFwcg03IB6rQgkx iPN1VMFmbx0= Diagnosis (test code = 34) v0kotSThHQGufUR4NQN aRYCqd2anm2LjbORwdK EmLYreoGSghwIyzy27k XY9qZ11LO0tTOBpEwJ2 LQMfbzF8Nad3SKHcROG uuAAmZ414j9cgd5hvjf HlqGX1NRZrISIzP2RvU J3kZRYxvWYfW54scZUg FFK2TFIuIAEjiHZeOUC xJXU9MFCtlCBpI6ajOM OiVG7awutlGZdcHCkqL AJykCT9ERAlsBEbC2Ju FMCsSLoyHSDrqfv4TfO zId6baBFbkCchKKioLO JkXHBsYWluXGZzMjBcY 9KqSGO4SXJyrJ8pVDXt O4w4EQYzLTX8njpksCx wyfUtcLNibosaa4zmzf R3SNSmmupdcThnMZvnf K32OvQlP6HqGGh4bYIk lInlg3OoVkDyD1Xvrwv fPCdtviW9e8ZwwjA8lV LrDVAkpoO0CNtiCQw8G T9rlS8pVJCtNFLgz4Sn kJU9OOFrmMHbdMFfYkT hdHVyZXMsIHByZXNlbn QgYXQgcGVyaXBoZXJhb CAbhoNrMv2mENtydMEx FIBlFGQfu2I8DGKfLOa kkx6yoZEyERJztz7mmR HsoVBsm8DxhcOcwhJpS b9vfVnzkHflzQxtPitu YXJ9 Gross Description (test t2lvbLOvWTNqmHBMRKf code = [id number]) wMVxhbnNpXHNwbHRwZ3 QdxdizXCftRF3wXD3sm PyydKTxoHNaZN2CEGTj ZmYxXHBhcGVydzEyMjQ cSSXdkVJwwJM2KMLoBM 1hcmdsMTgwMFxtYXJnc nY7UJFpxUSfC7OlWPEn XZ4spvhfBJI4HNdecS6 hzvTZIchkAb6uwFQbdA tcZjFcZmNoYXJzZXQwX RHstNcgBOAvKDe1rB4U OfowX03ps3E2Awj0JZR fHIKxH9PqAM7qYTTgzU TeA81YGmokUJQ1MYTON zkeDKVtRM5Vz4igNOYr wFKmCRB3IVhdaDYgYUU uQDZoECs2HNOcDGwurY NuPP2sxSxdGddaeTjuj 2VjdCBcXGlkIDUxMDAy IRdsSCJmPO6KFmNgKIL xMzZ0NCRvPXg3IJu0VG 1GLgOgHSTiNNKkMcP8U VEoGBj8EEaeZJ9JREFs NzEzNzAwOTEgNTUyNDk pCDx5HYHzPNrhTNZozY FsIFxcZnMgMTAgXFxmY mVkPVLcEXjmmiK7VNZz YWluXGJcZnMyMCBBOlx qTWZmPOkbdRynbA0eBS RuP81ni9DTc0MxDB8JB An5rtDnbdvqhK1xLZPq blIeSEqgmQXiZ7ahYqa hLaSsOwZvHCPyp9agfi wgcmlnaHQgcHJlYXVya UZ1jOAsCGJmROOpUhld MFxjZjAgIFxjZjEgVHd jFGXrLXAhn7SyxVqywQ 8kOLMcHKEugnJsx2goS IMnXRFmrQJ8PZCwGJOf UhR2SLNnQiC5SDCqUSS vpGPkeiQrCU46QXinXG 7zITkwYQ4vJZSgIAXjF FxiMFxjZjAgLCBlbnRp blIeqTEbuXIpwIT9HHR xsQ5oLFUgXWSvrYLwzU AoaAcsXbbzeKL3LYbqH yrxyO9hfKWABMZQUdxV AkozhiHnPZ9DQV7KItM RSK16AkGvNDK0GDwGQ6 XBiZG0Uql3SAa7cHsxB nzxwkJfiBNxWjAOrD0B ZUmnKsoawXA0QGjzTpx poX3pjFEECVJAKwsNRr jwweObWA4JDZ3FDG8It XCvZMD8lNF6UBHSIuvs sNP7hKC4fB91LXDqOHH npLJtZWtoR309RPIrIZ hdSEt1ouMaJLUmRkKcW FplAMLyA26ss6ZKi3Yz QBVyg6dtaXxsu3VinTE uZFxwYXJccGFyZFxzbC 6wJdYwk6ordFv7TYyfy oS4VJFqhd2mxSzveD0m XQsui9mrJMY7NUVnqAK tfEUfRQgsiHaopY7cUl FeEjt6RXwuQKUnS9QvU 2PnclR9CIJmPYbyDOSa MTYgDQp9 Disclaimer (test code = h8yovILoLQOqoZWnUjV 9844) fEMEcIOPpo1fyZNLbwJ FuZzEwMzNcZnRuYmpcd MJqSEJqWfFpo2olc475 cWQsp2qoQWGpAoL9tML dHMFuhCNlT451KPHtIB moz5zgm1QjJBDwrHWrr 9U6KJZRysvrrZu8lLqh O76qk0Z2UwyoK5xxNKO iDYSaK7VyMX9lKXAwCu i2NWO6BHD7WCPmBASaM 5WyNK7xXIRsxVSaIYq7 w9zbuTnlXNStTHV6g3l qNTgstwDgLK5qgp7nyT p4w5ndreBzFPKeVDSsf ISOBDBbR7PfrCbfYv2w jVe2mOtjFnirSVD8Stx 5JG0cte22zck8tOlrYZ CpjilyUdT7FDsvECAel xxxQAl3VTziFZVsiSY2 CPNfgRNoN7PsRIOfXD8 qoee1OKD3NNhoKGDjRg M5NMIimICxQEBizMfxR Hgmk351XAS7NkTpNA5u P9Rlb9V0wI3msXBrACA igDSaYhCcXGJqqp4edV DhLJlur9ZsXSV6naK1p SIoaZNgJYXhQS24Dkvd l9PqJvcfCWV2WWEvqnX hu9Ajj1fhObAqiuGpO1 goE7ZcBDKjPUBzWUVcF iPnbnKaq0Chn2VubCOy hYj8w8zbNYDqSFHjoLp sa6ipIJF5TBEjE1M6tV Xzq6yrXTixFFEatTC8q bY2HHMrtZJeX6OtyF9w MXKmDD3yzye1e0ebPRP 7NIidAPOtFgO0zuG1JP BcaGVhZGVyeTcyMFxmb 316CUP3SnKyEQJie4Zl R6KthDwtS29kdWaqA85 qVJCxzAdfpL9xzVskgR 5cZjBcZnMyNFxxbFxwb UZkhphqKQhzjyJ9AUwh fqyuBKLtWLqzQ0obJqG yNHMmbPfuTYibg3WjJX UxJQOhUlcxnwW6DKXFr 46nXAFue3SlDUGheM2j sQHhMQonwlNvrHN8RLd hdmUgYmVlbiBkZXZlbG 0qOKZkXF2nYISacdCnc w5jygGaGFYbMEStE4Mz cmlzdGljcyBkZXRlcm1 iwfSvSHO3XOHMZY6WLO OuOOVoe93lTBCfuZwgs U5mhLQnorOjOLPmx1Tg jG4fuGYMHTFyY6mzUP4 gRKiph8CxqBCsvTPtqR G9CRPrv6CxEmTtgbSoy RFcaNKwU1QynKriN5sn XSPvARLxnbGglYUhf4P aAZRagRX9fREzZA6YDi KYw60xWVDnYMYDxvZuD ERnfIkupGL2htL5zZ9r LiBJZiBhcHBsaWNhYmx uUIOth074zb5krfM7ZT SySYRgvrpdo7HjPUHsS QXbqL93VALeHOKdwp9o zzehjPSjkfJaS2Pmfku 5bA6tTOJoOXuhGRHjSI ZzMjJcbGFuZzEwMzNca GljaFxmMVxkYmNoXGYx GLbtU2iiHpYbXlQaIqr wYXJ9 [facility] Bi[facility] Interpretation 2022-02-17 17:05:35 Test Item Value Reference Range Interpretation Comments Submitted Clinical History q7mriKSaNMDvsWG1HJF (test code = 02520) sFSVpz4lns6XndFGrbJ XxGNpzaDChptNjde05c OQ6tX11RB0nTRTkAnL0 PDXcfxA8Ism9XHRsBDO mfZNcR769v3sxa6gehk OksEO0lIxlLOAjugojF rZ7TLemMQYwkgkrYPv0 YFxbXYFrrWB3EDYugQQ pR4NzPOMoVQ4dspm0MZ H3WLcdXIYvSoL4HZJty RFhKJGzsVdoBUkvu454 EKA1RxTqBEUclcEmtLi hiO9oFaMuJOKDzENfeI 91cyBjZWxsIGNhcmNpb a0rTYKtOtDcy8IeKWbN IoZvPY8koLTrLTX1FPp IEgS4bdORM5HzFNYoha 0= Diagnosis (test code = 34) p6lwiAOeMUWmoVG1HGT oOOXod6hwu8EcrOPqbM EpBWjtpGCiejYqhy67a IP1pK63TC4lBIYjBiA8 GRXuuaJ0Bsx3AARfXIH wgSDhA606o9nsl8phhs MwgUS9REJzJSReU5IvD S8oEAZlkQDwF44feISm FXC0KYDgBNGzpSBlJSD kHYD9ERAwxNQbT1xaTK UgWQ0hxoutFVcoTSidP GZdqIB8XIYjbEIkP1Ac IRDaJYslXORgxoq8AqL lCd4lkGBfvCbfFUtuWA JkXHBsYWluXGZzMjBcY 8CuESI1HNOvK4h3OAv1 J23tXNifu5isxaMbzSG 2ZTpccGFyXGxpNzIwXG mpfocrOVumQeNmVh5KV FzuO7WGFX5QTPTsU4DA SCOVMSWMZZ6VMLWdZZM XU7uEHwTTUbJSCESLB2 rCAa3BZwNjL9BuNQlZB VJQTEFTVElDIEFDVElO GZSrM6UIYRNBL4iWGZY GKRQXHSFGLYjWI0WLKB ZzCG1FA8yRXB0ILxSzU FBSRVNFTlQgQVQgVElT T9HNETLMY6QMHoqcRJK vNz9uxFvioUrzoIrdBV HpPUPkwRTfw0FxWAgfJ qVwIAV3wz6jwErxrHTx zV1jgRNplZC8z1H8CMk pSowxlZRvvNDrq3n0kB EvB8W2aBPnPSSgL3Kyn E5dv9LmzOw8ZLKkMTX9 GDMmDL1rKCTivmstOJL cbGkwXGxpbjAgVGhpcy BjYXNlIHdhcyBzdHVka WVkIGFuZCBkaXNjdXNz ZWQgYXQgdGhlIGRlcm1 jdP2hRYEsw5wfC8xuYb ZaiOx8mSFoa23iIDLrd mNlLiAgXHBhclxsaTcy IUbvpK63SzLzqQRmlO= = Comment (test code = 9835) t8fbrXAwHPTdkDX9FFL xKLGjl4rdg2KhaQCaaA HbIEmoiTPbjpGygj01p IW4sP53XC8vYEPeBoW7 QYQocrT7Bju2SPVqFMS foEUxZ554j3bot1lktv GkrOB5hLbdVQHgcxedQ bE3QWnuIORhbqngUIi4 YVmvCQXpiNV3YDFkiRP aA5JnOWQxCE1ypix0FF M6OGkqIZXvIeB7CRQyd IDdAJHcePjvSKtij200 PXH4ArFmZTGabpJnwJz piU7tMpGgHMQRyaXuiQ 01ft2wcUB5j6TnQR8vS 2SoPAU7fZW8TGagowQa UUYek1IgUUOywLPuaww raDAlRN0kmMOoc21lPF TkU2k4RNswOMlyaSAzF IhaC4licTfshLXwp4Le oVYuhkAtSZa0wtF2aD2 hGHwblTHtHG4lV6v3FG Y4HP6eAS2qeVPbm8P8p SodDYiia7dlwmGsruVp ZGVudGlmaWVkLiBTcGV cmHRgTFV4DDeakjQwW4 TPWOreT25ENZP9ZPYwV NRavmZwbm5hKThqW8Dl aW3dv8XrnFp1EYLaUHP 7XQArNXJdvyBwh3LlDI N0xBLrgD1djWucGVN7g oB8jN1yM78lreR0pAdh Os5lfAtfyKgxlwKhooP 2gzRdAiDckP1vOF4pVN Nvkdojz2josED7sDVdB dDbV0G4iUGqWRTiSUp5 bOLrc8TufsDwGKkhRPC 8pmSewbAce4IqyiIudl XnaXRmxYRuOXAqjj8ph V9nNJTwzeuaQON1 Gross Description (test y0odaCSuRTZbaEQTXIs code = [id number]) wMVxhbnNpXHNwbHRwZ3 WtiiixUTmjHO9wRF4ky JtsfOHgdYQoPF1KFDEo ZmYxXHBhcGVydzEyMjQ oNEIirIPzmGZ3LGHgOK 1hcmdsMTgwMFxtYXJnc pG9SDNiyAFcO9AfTOEq MA3uvywzRAT7MOrxqA5 dytTZDhhlXv7huSLtvD tcZjFcZmNoYXJzZXQwX JPazQllBGZbJMm0aF6D MiufT71oi2T8Dof8RPP tKYNaH3PeST6pIEGimX VxS21XGjrwQIM0PKNAO fdeYWTrGG8Ot7vxCOIn cLUhTOZ5ROwjoNKsCYB qCWGaMZm5AKVaGCqucT VbBC0owHwgRkvdoPigs 2VjdCBcXGlkIDUxMDAy QXebFBOlRF1OEkNpVTH bODB1AORyGUl5JSx6PA 1GYeLyHTQkTME0KfQ7Q nMvHPu0LNiiIY5OQMFb WFIbKRG5ACtdLCKbIKH iYWt9LNPhUBssNUVevW FsIFxcZnMgMTAgXFxmY rRsEELcPGlhokC9XXHl YWluXGJcZnMyMCBBOlx vOGOuRBeawKgesO2uVU RgF88vj0CGw3DpFF0JX Fz3xgJhlzsmcR0lEHSt fzOeHKaxiTPnS7wvQrb jTkCmOzXbGWXOm3faED BjoYdtrIO0vOwkmNA5Q GIwXGNmMCAgQSAwLjcg rREnAzEiuQMuIxDuI80 oSXQwvqZqq2htWLKpCG ZlLiAgVGhlIHNwZWNpb DRjNEiaDIpgi5MaNOVl sHEyI3IiXIcgHD54hTZ mnZxer5WnrSw4uRQiOO rtYBWjHlNjTTKqj5OoC 8R4ZGQnYSftx6rwNSKf SLlrv9DhPPuNAGRWEV7 OVZ9ctXP5EVcCW0JSH6 cLpUCuUZP9vRJ1LRUCD mfizNE3uFV2nY65ATUa UZTkqUErGKliG385YZH 0OKFqCFbvp5xbRMIrLM wox0KrZOmWFTSXGM1CO T7fdDR2TOhIW7NJBWem GSBcRcsouCIECRE7EOo orVbzwSe5v5bucFYgf3 q4WXuaOGB0iDlftQGkt uayjHWxqYjggoNgRQ8F RDKrkUAQQYR9BZ8eHBo 8JZakAMLcU7LvR0Ymmm ZhqGOqUUEounPtg2qgJ LQ1AOJmhPUoyAIjJfWs VfvwJSN9PMGuVRuxLF5 JODQkFTM0CTvntF97zK RxJY9NZESsVKqyIYDpN RGhytH8WREgnSCePMS6 IP2hpGnxwFXvyxpnnjP 1JX5HiG== [employer] 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) (test code = d7eiyZWyHFIbzUW0MKP 9895) uNYAph1iug6KgrZHjiJ JiOLkqfJKgbwOgvd60m DL5pJ02RN8aBJNxMyD6 HXRavzS7Hip6CNQfFYI znZEmG255e4abz9ppoi BylPF7dEivTFFbqzcbH rW6DYwsPMNdjheyGUq2 EFrqKNYbxUF6JRVqlZL gZ0YkNZFjFU9imke7DO V9HSifRGAiJyW1BRZrx LHmKKBggCcxNSumc602 JZD5RhXiVSIwehAyiJs ukA3cDcWjWZPNN3MnNT uEGowmL7FWHTJKKzzcV XJ9 Disclaimer (test code = t6pivPTcECPsqYNkDvT 9844) rXFVvGYBts6fxBXDtxI FuZzEwMzNcZnRuYmpcd VRdBSGqQsDev9dgu875 nIPsf6exHORhFgD0pMD lJMRpiBCrM754XLCvRD rbf5ldy5DbVMEuwIQfb 2V5MPSHrnnptWq4yXcl V07zs4U4YhdbD0joIQE xWKGiX6MsSU5mUIZxUi z0CIW8LPT5FMMuMGEdI 3IgZX9xNVYcgQMwHCd3 x2pymYhhYVXbVXH4s2k aOYxmvxJpAN0mhe9qwL d7t4ljayOvEQNlQHJca XQEVSXzL6DygYjsBd1p gKf7jSvjJgcrODG9Yjp 9UA9ivl58ezn4rPuuUE MlldamYeT0ROaxBLIjt oyqLJa3QLboFFEttJD2 FPVzcZJkG2AfWBYkGV5 xwnu0EWU4IHlrUOYeLq F9IJYstPYlLYQmxZseB Zzxe275ANZ0CxDgSQ4w F5Hcs0Q5fH3fkISeZOJ csLIjYuBiYHHxbk8viE KtQMaeh4WoCTP8nfO0t HSivLLdCTFhVY83Lsae d8YuCpyoSCW3CZWtsnV vq3Tkl6oeHyTxvlBeV1 prQ2WsOZHtHYBgSVHzN eHgfhZdj3Nwj2YenZEt wWt3a5ljTJXbRDArcFc wa9qcESI8XSIqG6X4xH Hxt6rmGUzjMCAswLS4t vF5OEVchRYoE8HfjE9w ESPzFZ8qfqc6u0xlGCN 6WDlzJBOxCwE4gyS1RI BcaGVhZGVyeTcyMFxmb 702ISN4VxGlLLVli9Ws Y4SxtZxdN72dtYdkD43 qIUFgdGfzgJ5wbWdcbR 5cZjBcZnMyNFxxbFxwb PBtsqzdTUlyfjP7JVyb xikbKNJgKEwdS8pkIpP nGZIilYqrKYlvw4ZaET NkIBWcSrucsyY9ALTZm 02iSEFhe7EaHGHqgO4x rWRrJFdoozHphDG6DWk hdmUgYmVlbiBkZXZlbG 2lCMTcHB0oYYDynkBki z4pvaGiMQMdKQAsO5Te cmlzdGljcyBkZXRlcm1 ndtPuPGG2VKKPPG2LBK JhBAXef77nDKChuYjka S9ylFYmmjVnMXJwm4Pf eK7rtFPHUSSwY8foIC2 iOUchy6VwqPUgdLSiiG R9JXKvx4AnPfKbqkVul WCpeXQhB3TqeLqrM7ge ECFkSQJcoaYxjNQzq4L uIFHrsNZ5uFVwLN3AGk ZRv26gTDGoJRKOcgFbJ EDxoMjtoTH8ohC4eJ3h LiBJZiBhcHBsaWNhYmx aEPKfo419os0fijQ8XA DpRSKiscqxr8MyKDVvW YMojU83EPUmQGNvsh0r npgggSJsqiQcZ7Hoxjh 1wN3dFSApINpbTITxBA ZzMjJcbGFuZzEwMzNca GljaFxmMVxkYmNoXGYx JPnnJ8rwYrPuPnJdEhc wYXJ9 [facility] [id number] 16:43:00 Test Item Value Reference Range Interpretation Comments POC glucose (test code 128 mg/dL 65-99 H Opera tor Name: Sommer = [id number]) WarrSuzieevice ID : [id number] able: REPLACED BY [facility] Notified repossession agent Interpretation Abnormal (test code = 84246-0) [facility] [id number] 23:59:05 Test Item Value Reference Range Interpretation Comments Case number (test code = [id number]) Cytology See link below for (non-gynecological) PDF Lab Report report (test code = 1178) Result status (test code This is Final Report = [id number]) for [id number] [facility] [id number] 20:28:42 Test Item Value Reference Range Interpretation Comments Case number (test code = [id number]) Surgical pathology See link below for report (test code = PDF Lab Report 2165) Result status (test code This is Final Report = [id number]) for [id number] [facility] 12 [id number] 20:54:28 Test Item Value Reference Range Interpretation Comments Ventricular rate (test code = 253) Atrial rate (test code = 255) VT interval (test code = 266) QRSD interval (test code = 260) QT interval (test code = 264) QTC interval (test code = 265) P axis 1 (test code = 267) QRS axis 1 (test code = 268) T wave axis (test code = 270) EKG impression (test Normal sinus rhythm-In code = 273) automated comparison with ECG of 10-28-2021-Electronica lly Signed By Graciela BLANK, Chad ([id number]) on 11/13/2021 2:54:26 PM [facility] [id number] 10:12:45 Test Item Value Reference Range Interpretation Comments Urine culture (test SEE COMMENT Bacteriu sarah screen code = 4689313) negative. 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 (test code = 79222-7) Whether the patient has symptoms related to condition of interest (test code = 20685-3) Patient was hospitalized because of this condition (test code = 94104-2) Whether the patient was admitted to intensive care unit (ICU) for condition of interest (test code = 70439-8) Whether patient resides in a congregate care setting (test code = 72407-1) [facility] [id number] 11:08:51 Test Item Value Reference Range Interpretation Comments Resting HR (test code = 2578635004) Resting BP (test code = 1099438931) Peak MET Achieved (test code = 7834304170) Protocol Name (test Lexiscan code = 9868321477) Time in Exercise 00:01:00 Phase (test code = 6431525304) Max Systolic BP (test code = 8264208382) Max Diastolic BP (test code = 4801235360) Max Heart Rate (test code = 3429369209) Max Predicted Heart Rate (test code = 2156567473) Target HR Formula (220 - Age)*100% (test code = 4389963770) Test Indication (test S/P Heart Transplant code = 6996115542) Arrhy During Ex (test code = 7893989956) ECG Interp Before EX (test code = 0933439199) ECG Interp During Ex (test code = 7588521676) Ex Summary Comment (test code = 2483282923) Overall HR Response to Exercise (test code = 9870985925) Overall BP Response To Exercise (test code = 7549603353) Reason for Protocol Complete Termination (test code = 2431199751) Stress Test Waveform interpreted in Impression (test code report associated with = 0655258190) image study. No interpretation is provided as part of this Stress ECG report.-Electronically Signed By Lola BLANK, Titi Matias ([id number]), advertising editor Allison Prasad ([id number]) on 10/25/2021 5:08:48 AM James RigginsARS-CoV-2 (COVID-19) RNA [Presence] in Respiratory specimen by FREDDIE with probe [id number] 21:45:46 Test Item Value Reference Range Interpretation Comments SARS-CoV-2 (COVID-19) RNA Not detected Not-Detected [Presence] in Respiratory specimen by FREDDIE with probe detection (test code = 61509-1) 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 employed in a healthcare setting (test code = 78282-5) Whether the patient has symptoms related to condition of interest (test code = 66728-6) Patient was hospitalized because of this condition (test code = 15729-7) Whether the patient was admitted to intensive care unit (ICU) for condition of interest (test code = 97212-0) Whether patient resides in a congregate care setting (test code = 51488-5) JAJA COLLINS IN OR/30 MINUTE [id number] 14:21:00 Reason for exam:->bilateral C3,C4,C5 medical branch raiofrequency ablation FINAL REPORT Fluoroscopy 3 views intraoperative 10/21/2018 1:28 PM CLINICAL HISTORY: Instrument localization COMPARISON: None available IMPRESSION: Please correlate imaging report findings with the procedure note prepared by Dr. Mcmullen, as an intra-procedure imaging consultation was not requested. Reported fluoroscopy time: 44.5 seconds. Signed: Munir Grady Verified Date/Time: 10/21/2018 14:21:41 Reading Location: [facility] Radiology Reading Room POCT-GLUCOSE [id number] 14:02:00 Test Item Value Reference Range Interpretation Comments POC-GLUCOSE METER 160 mg/dL 70-110 H TESTED AT [place] [address] ([facility]) (test code = [facility] 1538) [address] POCT-GLUCOSE [id number] 12:28:00 Test Item Value Reference Range Interpretation Comments POC-GLUCOSE METER 158 mg/dL 70-110 H TESTED AT [place] [address] ([facility]) (test code = [facility] [facility] 1538) [address] [place], 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 Mcmullen, as an intra-procedure imaging consultation wasnot requested. Reported fluoroscopy time: 35.8 seconds. Signed: Munir Grady Verified Date/Time: 09/16/2018 13:42:50 Reading Location: [facility] Radiology Reading Room POCT- GLUCOSE [id number] 12:18:00 Test Item Value Reference Range Interpretation Comments POC-GLUCOSE METER 154 mg/dL 70-110 H TESTED AT [place] [address] ([facility]) (test code = SYLVIADC [facility] 1538) [address] [id number] 10:58:00 Test Item Value Reference Range Interpretation Comments Tacrolimus Lvl (test code = Tacrolimus 3.3 5.0-15.0 Lvl) [facility]FN2263-19-83 10:58:00 Test Item Value Reference Range Interpretation Comments Tacrolimus Lvl (test code = Tacrolimus 3.3 5.0-15.0 Lvl) [facility]jaGSBOUWLWRW5654-[facility]-26 10:58:00 Test Item Value Reference Range Interpretation Comments Tacrolimus Lvl (test code = Tacrolimus 3.3 5.0-15.0 Lvl) [facility]2018-07-22 05:30:00 Test Item Value Reference Range Interpretation Comments Creatinine Lvl (test code = Creatinine 1.61 0.50-1.40 Lvl) [facility]2018-07-22 05:30:00 Test Item Value Reference Range Interpretation Comments eGFR (test code = eGFR) 42 [facility]2018-07-22 05:30:00 Test Item Value Reference Range Interpretation Comments BUN (test code = BUN) 53 7-22 [facility]2018-07-22 05:30:00 Test Item Value Reference Range Interpretation Comments Glucose Lvl (test code = Glucose Lvl) 146 70-99 [facility]2018-07-22 05:30:00 Test Item Value Reference Range Interpretation Comments Sodium Lvl (test code = Sodium Lvl) 134 135-145 [facility]2018-07-22 05:30:00 Test Item Value Reference Range Interpretation Comments Potassium Lvl (test code = Potassium 4.9 3.5-5.1 Lvl) [facility]2018-07-22 05:30:00 Test Item Value Reference Range Interpretation Comments Chloride Lvl (test code = Chloride Lvl) 99 95-109 [facility]2018-07-22 05:30:00 Test Item Value Reference Range Interpretation Comments CO2 (test code = CO2) 25 24-32 [facility]2018-07-22 05:30:00 Test Item Value Reference Range Interpretation Comments Calcium Lvl (test code = Calcium Lvl) 8.6 8.5-10.5 [facility]2018-07-22 05:30:00 Test Item Value Reference Range Interpretation Comments AGAP (test code = AGAP) 14.9 10.0-20.0 [facility]2018-07-22 05:30:00 Test Item Value Reference Range Interpretation Comments Creatinine Lvl (test code = Creatinine 1.61 0.50-1.40 Lvl) [facility]2018-07-22 05:30:00 Test Item Value Reference Range Interpretation Comments eGFR (test code = eGFR) 42 [facility]2018-07-22 05:30:00 Test Item Value Reference Range Interpretation Comments BUN (test code = BUN) 53 - [facility]2018-07-22 05:30:00 Test Item Value Reference Range Interpretation Comments Glucose Lvl (test code = Glucose Lvl) 146 70-99 [facility]2018-07-22 05:30:00 Test Item Value Reference Range Interpretation Comments Sodium Lvl (test code = Sodium Lvl) 134 135-145 [facility]2018-07-22 05:30:00 Test Item Value Reference Range Interpretation Comments Potassium Lvl (test code = Potassium 4.9 3.5-5.1 Lvl) [facility]2018-07-22 05:30:00 Test Item Value Reference Range Interpretation Comments Chloride Lvl (test code = Chloride Lvl) 99 95-109 [facility]2018-07-22 05:30:00 Test Item Value Reference Range Interpretation Comments CO2 (test code = CO2) 25 24-32 [facility]2018-07-22 05:30:00 Test Item Value Reference Range Interpretation Comments Calcium Lvl (test code = Calcium Lvl) 8.6 8.5-10.5 [facility]2018-07-22 05:30:00 Test Item Value Reference Range Interpretation Comments AGAP (test code = AGAP) 14.9 10.0-20.0 [facility]2018-07-22 05:30:00 Test Item Value Reference Range Interpretation Comments Creatinine Lvl (test code = Creatinine 1.61 0.50-1.40 Lvl) [facility]2018-07-22 05:30:00 Test Item Value Reference Range Interpretation Comments eGFR (test code = eGFR) 42 [facility]2018-07-22 05:30:00 Test Item Value Reference Range Interpretation Comments BUN (test code = BUN) 53 7-22 [facility]2018-07-22 05:30:00 Test Item Value Reference Range Interpretation Comments Glucose Lvl (test code = Glucose Lvl) 146 70-99 [facility]2018-07-22 05:30:00 Test Item Value Reference Range Interpretation Comments Sodium Lvl (test code = Sodium Lvl) 134 135-145 [facility]2018-07-22 05:30:00 Test Item Value Reference Range Interpretation Comments Potassium Lvl (test code = Potassium 4.9 3.5-5.1 Lvl) [facility]2018-07-22 05:30:00 Test Item Value Reference Range Interpretation Comments Chloride Lvl (test code = Chloride Lvl) 99 95-109 [facility]2018-07-22 05:30:00 Test Item Value Reference Range Interpretation Comments CO2 (test code = CO2) 25 24-32 [facility]2018-07-22 05:30:00 Test Item Value Reference Range Interpretation Comments Calcium Lvl (test code = Calcium Lvl) 8.6 8.5-10.5 [facility]2018-07-22 05:30:00 Test Item Value Reference Range Interpretation Comments AGAP (test code = AGAP) 14.9 10.0-20.0 [place] [id number] 13:46:00 Test Item Value Reference Range Interpretation Comments Tacrolimus Lvl (test code = Tacrolimus no gt 5.0-15.0 Lvl) [place] [id number] 13:46:00 Test Item Value Reference Range Interpretation Comments Tacrolimus Lvl (test code = Tacrolimus no gt 5.0-15.0 Lvl) [place] [id number] 13:46:00 Test Item Value Reference Range Interpretation Comments Tacrolimus Lvl (test code = Tacrolimus no gt 5.0-15.0 Lvl) [facility]2018-07-21 05:38:00 Test Item Value Reference Range Interpretation Comments Glucose Lvl (test code = Glucose Lvl) 125 70-99 [facility]2018-07-21 05:38:00 Test Item Value Reference Range Interpretation Comments Creatinine Lvl (test code = Creatinine 1.65 0.50-1.40 Lvl) [facility]2018-07-21 05:38:00 Test Item Value Reference Range Interpretation Comments BUN (test code = BUN) 51 7-22 [facility]2018-07-21 05:38:00 Test Item Value Reference Range Interpretation Comments Chloride Lvl (test code = Chloride Lvl) 100 95-109 [facility]2018-07-21 05:38:00 Test Item Value Reference Range Interpretation Comments Sodium Lvl (test code = Sodium Lvl) 136 135-145 [facility]2018-07-21 05:38:00 Test Item Value Reference Range Interpretation Comments CO2 (test code = CO2) - [facility]2018-07-21 05:38:00 Test Item Value Reference Range Interpretation Comments Potassium Lvl (test code = Potassium 5.2 3.5-5.1 Lvl) [facility]2018-07-21 05:38:00 Test Item Value Reference Range Interpretation Comments eGFR (test code = eGFR) 40 [facility]2018-07-21 05:38:00 Test Item Value Reference Range Interpretation Comments AGAP (test code = AGAP) 14.2 10.0-20.0 [facility]2018-07-21 05:38:00 Test Item Value Reference Range Interpretation Comments Calcium Lvl (test code = Calcium Lvl) 8.4 8.5-10.5 [facility]2018-07-21 05:38:00 Test Item Value Reference Range Interpretation Comments Glucose Lvl (test code = Glucose Lvl) 125 70-99 [facility]2018-07-21 05:38:00 Test Item Value Reference Range Interpretation Comments Creatinine Lvl (test code = Creatinine 1.65 0.50-1.40 Lvl) [facility]2018-07-21 05:38:00 Test Item Value Reference Range Interpretation Comments BUN (test code = BUN) 51 7-22 [facility]2018-07-21 05:38:00 Test Item Value Reference Range Interpretation Comments Chloride Lvl (test code = Chloride Lvl) 100 95-109 [facility]2018-07-21 05:38:00 Test Item Value Reference Range Interpretation Comments Sodium Lvl (test code = Sodium Lvl) 136 135-145 [facility]2018-07-21 05:38:00 Test Item Value Reference Range Interpretation Comments CO2 (test code = CO2) 24-32 [facility]2018-07-21 05:38:00 Test Item Value Reference Range Interpretation Comments Potassium Lvl (test code = Potassium 5.2 3.5-5.1 Lvl) [facility]2018-07-21 05:38:00 Test Item Value Reference Range Interpretation Comments eGFR (test code = eGFR) 40 [facility]2018-07-21 05:38:00 Test Item Value Reference Range Interpretation Comments AGAP (test code = AGAP) 14.2 10.0-20.0 [facility]2018-07-21 05:38:00 Test Item Value Reference Range Interpretation Comments Calcium Lvl (test code = Calcium Lvl) 8.4 8.5-10.5 [facility]2018-07-21 05:38:00 Test Item Value Reference Range Interpretation Comments Glucose Lvl (test code = Glucose Lvl) 125 70-99 [facility]2018-07-21 05:38:00 Test Item Value Reference Range Interpretation Comments Creatinine Lvl (test code = Creatinine 1.65 0.50-1.40 Lvl) [facility]2018-07-21 05:38:00 Test Item Value Reference Range Interpretation Comments BUN (test code = BUN) 51 7-22 [facility]2018-07-21 05:38:00 Test Item Value Reference Range Interpretation Comments Chloride Lvl (test code = Chloride Lvl) 100 95-109 [facility]2018-07-21 05:38:00 Test Item Value Reference Range Interpretation Comments Sodium Lvl (test code = Sodium Lvl) 136 135-145 [facility]2018-07-21 05:38:00 Test Item Value Reference Range Interpretation Comments CO2 (test code = CO2) 27 24-32 [facility]2018-07-21 05:38:00 Test Item Value Reference Range Interpretation Comments Potassium Lvl (test code = Potassium 5.2 3.5-5.1 Lvl) [facility]2018-07-21 05:38:00 Test Item Value Reference Range Interpretation Comments eGFR (test code = eGFR) 40 [facility]2018-07-21 05:38:00 Test Item Value Reference Range Interpretation Comments AGAP (test code = AGAP) 14.2 10.0-20.0 [facility]2018-07-21 05:38:00 Test Item Value Reference Range Interpretation Comments Calcium Lvl (test code = Calcium Lvl) 8.4 8.5-10.5 [facility]2018-07-20 05:13:00 Test Item Value Reference Range Interpretation Comments eGFR (test code = eGFR) 37 [facility]2018-07-20 05:13:00 Test Item Value Reference Range Interpretation Comments Potassium Lvl (test code = Potassium 5.6 3.5-5.1 Lvl) [facility]2018-07-20 05:13:00 Test Item Value Reference Range Interpretation Comments Chloride Lvl (test code = Chloride Lvl) 99 95-109 [facility]2018-07-20 05:13:00 Test Item Value Reference Range Interpretation Comments CO2 (test code = CO2) 29 24-32 [facility]2018-07-20 05:13:00 Test Item Value Reference Range Interpretation Comments Calcium Lvl (test code = Calcium Lvl) 8.9 8.5-10.5 [facility]2018-07-20 05:13:00 Test Item Value Reference Range Interpretation Comments AGAP (test code = AGAP) 14.6 10.0-20.0 [facility]2018-07-20 05:13:00 Test Item Value Reference Range Interpretation Comments BUN (test code = BUN) 56 7-22 [facility]2018-07-20 05:13:00 Test Item Value Reference Range Interpretation Comments Glucose Lvl (test code = Glucose Lvl) 153 70-99 [facility]2018-07-20 05:13:00 Test Item Value Reference Range Interpretation Comments Sodium Lvl (test code = Sodium Lvl) 137 135-145 [facility]2018-07-20 05:13:00 Test Item Value Reference Range Interpretation Comments Creatinine Lvl (test code = Creatinine 1.77 0.50-1.40 Lvl) [facility]2018-07-20 05:13:00 Test Item Value Reference Range Interpretation Comments eGFR (test code = eGFR) 37 [facility]2018-07-20 05:13:00 Test Item Value Reference Range Interpretation Comments Potassium Lvl (test code = Potassium 5.6 3.5-5.1 Lvl) [facility]2018-07-20 05:13:00 Test Item Value Reference Range Interpretation Comments Chloride Lvl (test code = Chloride Lvl) 99 95-109 [facility]2018-07-20 05:13:00 Test Item Value Reference Range Interpretation Comments CO2 (test code = CO2) 29 -32 [facility]2018-07-20 05:13:00 Test Item Value Reference Range Interpretation Comments Calcium Lvl (test code = Calcium Lvl) 8.9 8.5-10.5 [facility]2018-07-20 05:13:00 Test Item Value Reference Range Interpretation Comments AGAP (test code = AGAP) 14.6 10.0-20.0 [facility]2018-07-20 05:13:00 Test Item Value Reference Range Interpretation Comments BUN (test code = BUN) 56 7-22 [facility]2018-07-20 05:13:00 Test Item Value Reference Range Interpretation Comments Glucose Lvl (test code = Glucose Lvl) 153 70-99 [facility]2018-07-20 05:13:00 Test Item Value Reference Range Interpretation Comments Sodium Lvl (test code = Sodium Lvl) 137 135-145 [facility]2018-07-20 05:13:00 Test Item Value Reference Range Interpretation Comments Creatinine Lvl (test code = Creatinine 1.77 0.50-1.40 Lvl) [facility]2018-07-20 05:13:00 Test Item Value Reference Range Interpretation Comments eGFR (test code = eGFR) 37 [facility]2018-07-20 05:13:00 Test Item Value Reference Range Interpretation Comments Potassium Lvl (test code = Potassium 5.6 3.5-5.1 Lvl) [facility]2018-07-20 05:13:00 Test Item Value Reference Range Interpretation Comments Chloride Lvl (test code = Chloride Lvl) 99 95-109 [facility]2018-07-20 05:13:00 Test Item Value Reference Range Interpretation Comments CO2 (test code = CO2) 29 -32 [facility]2018-07-20 05:13:00 Test Item Value Reference Range Interpretation Comments Calcium Lvl (test code = Calcium Lvl) 8.9 8.5-10.5 [facility]2018-07-20 05:13:00 Test Item Value Reference Range Interpretation Comments AGAP (test code = AGAP) 14.6 10.0-20.0 [facility]2018-07-20 05:13:00 Test Item Value Reference Range Interpretation Comments BUN (test code = BUN) 56 7-22 [facility]2018-07-20 05:13:00 Test Item Value Reference Range Interpretation Comments Glucose Lvl (test code = Glucose Lvl) 153 70-99 [facility]2018-07-20 05:13:00 Test Item Value Reference Range Interpretation Comments Sodium Lvl (test code = Sodium Lvl) 137 135-145 [facility]2018-07-20 05:13:00 Test Item Value Reference Range Interpretation Comments Creatinine Lvl (test code = Creatinine 1.77 0.50-1.40 Lvl) [facility]2018-07-18 05:43:00 Test Item Value Reference Range Interpretation Comments Phosphorus (test code = Phosphorus) 4.1 2.5-4.5 [facility]2018-07-18 05:43:00 Test Item Value Reference Range Interpretation Comments Magnesium Lvl (test code = Magnesium 2.8 1.8-2.4 Lvl) [facility]BwbgzdkYCDWIIWPAH9793-80-19 05:43:00 Test Item Value Reference Range Interpretation Comments Segs (test code = Segs) 87.0 45.0-75.0 [facility]aleZlvfmvgNNDUTXZQBW6941-86-78 05:43:00 Test Item Value Reference Range Interpretation Comments Neutrophils # (test code = Neutrophils 6.6 1.5-8.1 #) [facility]aleRimkqosCUXXRSNTPH9222-16-86 05:43:00 Test Item Value Reference Range Interpretation Comments Lymphocytes (test code = Lymphocytes) 7.0 20.0-40.0 [facility]aleQgwwjgjOMAEAPXHWP5234-71-82 05:43:00 Test Item Value Reference Range Interpretation Comments Monocytes (test code = Monocytes) 6.0 2.0-12.0 [facility]aleWfzkgnbRJIZDEYUTY1086-62-69 05:43:00 Test Item Value Reference Range Interpretation Comments Lymphocytes # (test code = Lymphocytes 0.6 1.0-5.5 #) [facility]aleUaxzogkCFFEQMVCYH0464-03-95 05:43:00 Test Item Value Reference Range Interpretation Comments Monocytes # (test code 0.4 See_Comment [Aut omated message] The = Monocytes #) system which generated this result tra nsmitted reference range : <=0.8. The reference r renu was not used to int erpret this result as normal/abnormal . [facility]alePannpgzXAZZVOBXJZ0060-82-06 05:43:00 Test Item Value Reference Range Interpretation Comments MCH (test code = MCH) 32.6 pg 27.0-31.0 [facility]valeZcyheopAIQZZLKTBH5583-42-43 05:43:00 Test Item Value Reference Range Interpretation Comments MCHC (test code = MCHC) 33.9 32.0-36.0 [facility]aleNbflxrzSQUJPPNUUP5550-98-02 05:43:00 Test Item Value Reference Range Interpretation Comments RDW (test code = RDW) 15.3 11.5-14.5 [facility]aleFswboldPETWTYVAFM3139-70-82 05:43:00 Test Item Value Reference Range Interpretation Comments Platelet (test code = Platelet) 136 133-450 [facility]valeOushyguXVQKDINCPI6998-71-49 05:43:00 Test Item Value Reference Range Interpretation Comments MPV (test code = MPV) 9.6 7.4-10.4 [facility]valeAinxlvfFCXUCSAXMR2588-80-45 05:43:00 Test Item Value Reference Range Interpretation Comments WBC X 10x3 (test code = WBC X 10x3) 7.6 3.7-10.4 [facility]aleVfqmbnyCJZHHKKPKH2794-09-99 05:43:00 Test Item Value Reference Range Interpretation Comments Hct (test code = Hct) 31.0 42.0-54.0 [facility]aleMjflgwbRFUANMEGIK0386-26-64 05:43:00 Test Item Value Reference Range Interpretation Comments MCV (test code = MCV) 96.1 80.0-94.0 [facility]aleSscjfauPMVYYRZNEL5741-20-46 05:43:00 Test Item Value Reference Range Interpretation Comments RBC X 10x6 (test code = RBC X 10x6) 3.22 4.70-6.10 [facility]aleQokashaDHJXJFHZBK2448-76-02 05:43:00 Test Item Value Reference Range Interpretation Comments Hgb (test code = Hgb) 10.5 14.0-18.0 [facility]2018-07-18 05:43:00 Test Item Value Reference Range Interpretation Comments Phosphorus (test code = Phosphorus) 4.1 2.5-4.5 [facility]2018-07-18 05:43:00 Test Item Value Reference Range Interpretation Comments Magnesium Lvl (test code = Magnesium 2.8 1.8-2.4 Lvl) [facility]aleAxpijbhBQYISTLVXM5849-35-08 05:43:00 Test Item Value Reference Range Interpretation Comments Segs (test code = Segs) 87.0 45.0-75.0 [facility]aleJlpdrrcQNGLPHIPPU6416-63-27 05:43:00 Test Item Value Reference Range Interpretation Comments Neutrophils # (test code = Neutrophils 6.6 1.5-8.1 #) [facility]aleZgmilwqVVTXMZMPUO3072-11-91 05:43:00 Test Item Value Reference Range Interpretation Comments Lymphocytes (test code = Lymphocytes) 7.0 20.0-40.0 [facility]aleAvrnywlKVDQTPCIOU4405-02-84 05:43:00 Test Item Value Reference Range Interpretation Comments Monocytes (test code = Monocytes) 6.0 2.0-12.0 [facility]aleVqpuxkaLNSEBZKFSR9677-63-51 05:43:00 Test Item Value Reference Range Interpretation Comments Lymphocytes # (test code = Lymphocytes 0.6 1.0-5.5 #) [facility]aleHdalbmzPHCHUPIQXE8784-77-00 05:43:00 Test Item Value Reference Range Interpretation Comments Monocytes # (test code 0.4 See_Comment [Aut omated message] The = Monocytes #) system which generated this result tra nsmitted reference range : <=0.8. The reference r renu was not used to int erpret this result as normal/abnormal . [facility]valeNxqkothSZSRKZIGEX7269-83-13 05:43:00 Test Item Value Reference Range Interpretation Comments MCH (test code = MCH) 32.6 pg 27.0-31.0 [facility]aleWblitfyQOFMFOHSTZ3663-21-45 05:43:00 Test Item Value Reference Range Interpretation Comments MCHC (test code = MCHC) 33.9 32.0-36.0 [facility]valeEipngxqNIDVJARNCV9313-71-12 05:43:00 Test Item Value Reference Range Interpretation Comments RDW (test code = RDW) 15.3 11.5-14.5 [facility]aleAquhcvvMUGCKBFTIE4309-18-88 05:43:00 Test Item Value Reference Range Interpretation Comments Platelet (test code = Platelet) 136 133-450 [facility] SunnyvaleGgidqliBMKEICYKFB4253-06-83 05:43:00 Test Item Value Reference Range Interpretation Comments MPV (test code = MPV) 9.6 7.4-10.4 [facility]valeWzlanuvYGONNCXXAJ2515-45-81 05:43:00 Test Item Value Reference Range Interpretation Comments WBC X 10x3 (test code = WBC X 10x3) 7.6 3.7-10.4 [facility]aleMspytjuTVGQFVPLUW8355-99-67 05:43:00 Test Item Value Reference Range Interpretation Comments Hct (test code = Hct) 31.0 42.0-54.0 [facility]valeUvhadvdDZWUSNUNHU8441-71-52 05:43:00 Test Item Value Reference Range Interpretation Comments MCV (test code = MCV) 96.1 80.0-94.0 [facility]valeTwgahenQDUZDROHJQ6705-19-96 05:43:00 Test Item Value Reference Range Interpretation Comments RBC X 10x6 (test code = RBC X 10x6) 3.22 4.70-6.10 [facility]valeVjvpmlePYQXBXHWOR3641-39-25 05:43:00 Test Item Value Reference Range Interpretation Comments Hgb (test code = Hgb) 10.5 14.0-18.0 [facility] [id number] 05:43:00 Test Item Value Reference Range Interpretation Comments Phosphorus (test code = Phosphorus) 4.1 2.5-4.5 [facility] [id number] 05:43:00 Test Item Value Reference Range Interpretation Comments Magnesium Lvl (test code = Magnesium 2.8 1.8-2.4 Lvl) [facility]aleFfflpfqVJTTRKPWYU1884-90-39 05:43:00 Test Item Value Reference Range Interpretation Comments Segs (test code = Segs) 87.0 45.0-75.0 [facility]aleHpaapebTHDTHJEBJN7553-71-81 05:43:00 Test Item Value Reference Range Interpretation Comments Neutrophils # (test code = Neutrophils 6.6 1.5-8.1 #) [facility]aleKlpifdhBSDIXBQTXG0080-06-60 05:43:00 Test Item Value Reference Range Interpretation Comments Lymphocytes (test code = Lymphocytes) 7.0 20.0-40.0 [facility]aleVndibimWDKXITNIUT4654-44-54 05:43:00 Test Item Value Reference Range Interpretation Comments Monocytes (test code = Monocytes) 6.0 2.0-12.0 [facility]aleKppsanwUWYREYRBNA1156-23-88 05:43:00 Test Item Value Reference Range Interpretation Comments Lymphocytes # (test code = Lymphocytes 0.6 1.0-5.5 #) [facility]aleVvanqyuGIWGAXFNVS0622-39-75 05:43:00 Test Item Value Reference Range Interpretation Comments Monocytes # (test code 0.4 See_Comment [Aut omated message] The = Monocytes #) system which generated this result tra nsmitted reference range : <=0.8. The reference r renu was not used to int erpret this result as normal/abnormal . [facility]aleEkawdxtYHUPNJLPTQ1166-47-46 05:43:00 Test Item Value Reference Range Interpretation Comments MCH (test code = MCH) 32.6 pg 27.0-31.0 [facility]aleAbllbcnMBSRMQDDOK1342-25-53 05:43:00 Test Item Value Reference Range Interpretation Comments MCHC (test code = MCHC) 33.9 32.0-36.0 [facility]aleXunmokoCSABJHBGGH9568-07-84 05:43:00 Test Item Value Reference Range Interpretation Comments RDW (test code = RDW) 15.3 11.5-14.5 [facility]aleRmuogytMPSVWJVRYU3926-65-32 05:43:00 Test Item Value Reference Range Interpretation Comments Platelet (test code = Platelet) 136 133-450 [facility]aleRckbyinVPATGEABJC9820-83-69 05:43:00 Test Item Value Reference Range Interpretation Comments MPV (test code = MPV) 9.6 7.4-10.4 [facility]aleXxpvqkpNOSJHDIPNN8613-40-71 05:43:00 Test Item Value Reference Range Interpretation Comments WBC X 10x3 (test code = WBC X 10x3) 7.6 3.7-10.4 [facility]aleWyvpyurVOCCZRYBPW2854-67-82 05:43:00 Test Item Value Reference Range Interpretation Comments Hct (test code = Hct) 31.0 42.0-54.0 [facility]aleSkaprtxSLQLPYVJND5669-11-94 05:43:00 Test Item Value Reference Range Interpretation Comments MCV (test code = MCV) 96.1 80.0-94.0 [facility]aleHdwneaeDAEFEVGSHO5783-32-06 05:43:00 Test Item Value Reference Range Interpretation Comments RBC X 10x6 (test code = RBC X 10x6) 3.22 4.70-6.10 [facility]aleTonvcxtUIGXUXBKIV5559-46-53 05:43:00 Test Item Value Reference Range Interpretation Comments Hgb (test code = Hgb) 10.5 14.0-18.0 [facility]2018-07-17 05:57:00 Test Item Value Reference Range Interpretation Comments Phosphorus (test code = Phosphorus) 3.6 2.5-4.5 [facility]2018-07-17 05:57:00 Test Item Value Reference Range Interpretation Comments Magnesium Lvl (test code = Magnesium 2.4 1.8-2.4 Lvl) [facility]aleJtrdgozQFKMPWNKVW0856-20-73 05:57:00 Test Item Value Reference Range Interpretation Comments Segs (test code = Segs) 84.1 45.0-75.0 [facility]aleIvgiwgnQUKRMWATOT5658-03-32 05:57:00 Test Item Value Reference Range Interpretation Comments Lymphocytes # (test code = Lymphocytes 0.9 1.0-5.5 #) [facility]aleIcsllyiQAHHGSKDIO9285-65-99 05:57:00 Test Item Value Reference Range Interpretation Comments Basophils (test code = 0.2 See_Comment [Aut omated message] The Basophils) system which ge nerated this result tra nsmitted reference range : <=1.0. The reference r renu was not used to int erpret this result as normal/abnormal . [facility]aleVvgjqydWZPRPMXUQR3403-51-71 05:57:00 Test Item Value Reference Range Interpretation Comments Eosinophils (test code = 0.4 See_Comment [A utomated message] The Eosinophils) system which ge nerated this result tra nsmitted reference range : <=4.0. The reference r renu was not used to int erpret this result as normal/abnormal . [facility]aleVwcxsaaYCMGHNAGTZ0322-30-96 05:57:00 Test Item Value Reference Range Interpretation Comments Neutrophils # (test code = Neutrophils 9.2 1.5-8.1 #) [facility]aleBjhalqrIPFXELYOHO2198-35-66 05:57:00 Test Item Value Reference Range Interpretation Comments Monocytes (test code = Monocytes) 6.7 2.0-12.0 [facility]aleKekwyalSIYEHRPHFN7653-57-72 05:57:00 Test Item Value Reference Range Interpretation Comments Lymphocytes (test code = Lymphocytes) 8.6 20.0-40.0 [place] 861148-07-17 05:57:00 Test Item Value Reference Range Interpretation Comments Monocytes # (test code 0.7 See_Comment [Aut omated message] The = Monocytes #) system which generated this result tra nsmitted reference range : <=0.8. The reference r renu was not used to int erpret this result as normal/abnormal . [facility]aleIksqvhhYANAMKJUDD2507-32-43 05:57:00 Test Item Value Reference Range Interpretation Comments Platelet (test code = Platelet) 116 133-450 [facility]aleBqffdshXCBXCONQIX3474-93-30 05:57:00 Test Item Value Reference Range Interpretation Comments RDW (test code = RDW) 15.3 11.5-14.5 [facility]aleKmmoehtDSDEKNMNNJ7153-72-71 05:57:00 Test Item Value Reference Range Interpretation Comments MCV (test code = MCV) 96.8 80.0-94.0 [facility]aleIrsyfkyFPZHYTTXXZ0185-18-20 05:57:00 Test Item Value Reference Range Interpretation Comments MCH (test code = MCH) 31.8 pg 27.0-31.0 [facility]aleGygxppkSGXUSTXBYR4609-94-20 05:57:00 Test Item Value Reference Range Interpretation Comments Hgb (test code = Hgb) 10.6 14.0-18.0 [facility]aleSohosyfZZPEMLYMDW6902-39-60 05:57:00 Test Item Value Reference Range Interpretation Comments RBC (test code = RBC) 3.32 4.70-6.10 [facility]aleBqjiriuWFIHSUBHPZ3567-29-64 05:57:00 Test Item Value Reference Range Interpretation Comments MCHC (test code = MCHC) 32.8 32.0-36.0 [facility]aleXgpxtseNYOEWLDAVR8075-25-27 05:57:00 Test Item Value Reference Range Interpretation Comments Hct (test code = Hct) 32.2 42.0-54.0 [facility]aleRohxcxiFBFJYNISOR3748-66-02 05:57:00 Test Item Value Reference Range Interpretation Comments MPV (test code = MPV) 9.7 7.4-10.4 [facility]aleLjikciiJUVATJVAVR2176-92-58 05:57:00 Test Item Value Reference Range Interpretation Comments WBC (test code = WBC) 10.9 3.7-10.4 [facility]aleLnddqjmBCLPLAMUPL8449-48-45 05:57:00 Test Item Value Reference Range Interpretation Comments Hgb (test code = Hgb) 10.6 14.0-18.0 [facility]RqpzrjdYDBGBSFRCB4232-41-31 05:57:00 Test Item Value Reference Range Interpretation Comments RBC (test code = RBC) 3.32 4.70-6.10 [facility]aleXeiknyrECAQRYFVJE8669-30-01 05:57:00 Test Item Value Reference Range Interpretation Comments MCHC (test code = MCHC) 32.8 32.0-36.0 [facility]aleYifkclkISYCHQAJNX5531-57-78 05:57:00 Test Item Value Reference Range Interpretation Comments Hct (test code = Hct) 32.2 42.0-54.0 [facility]aleAwqsrhvGTKTVHYEJW2902-35-16 05:57:00 Test Item Value Reference Range Interpretation Comments MPV (test code = MPV) 9.7 7.4-10.4 [facility]aleTuiybuvGRJDDEPRGV0064-43-88 05:57:00 Test Item Value Reference Range Interpretation Comments WBC (test code = WBC) 10.9 3.7-10.4 [facility]woodCHEM ZPQJN3863-06-31 05:57:00 Test Item Value Reference Range Interpretation Comments Phosphorus (test code = Phosphorus) 3.6 2.5-4.5 [facility]woodCHEM ERTSA0004-49-95 05:57:00 Test Item Value Reference Range Interpretation Comments Magnesium Lvl (test code = Magnesium 2.4 1.8-2.4 Lvl) [facility]aleHbpauziWNAHOOJIOF6907-53-66 05:57:00 Test Item Value Reference Range Interpretation Comments Segs (test code = Segs) 84.1 45.0-75.0 [facility]aleRzgewfmGRSWONSTAT8301-53-10 05:57:00 Test Item Value Reference Range Interpretation Comments Lymphocytes # (test code = Lymphocytes 0.9 1.0-5.5 #) [facility]aleNryomosDNOVXTSPUT3041-12-37 05:57:00 Test Item Value Reference Range Interpretation Comments Basophils (test code = 0.2 See_Comment [Aut omated message] The Basophils) system which ge nerated this result tra nsmitted reference range : <=1.0. The reference r renu was not used to int erpret this result as normal/abnormal . [facility]aleHlsvarbWKMNUPQWRZ5039-05-52 05:57:00 Test Item Value Reference Range Interpretation Comments Eosinophils (test code = 0.4 See_Comment [A utomated message] The Eosinophils) system which ge nerated this result tra nsmitted reference range : <=4.0. The reference r renu was not used to int erpret this result as normal/abnormal . [facility]aleTajdjdpDADPYIHQBE3378-96-94 05:57:00 Test Item Value Reference Range Interpretation Comments Neutrophils # (test code = Neutrophils 9.2 1.5-8.1 #) [facility]aleOrfqfkgLKSGRKLBNF5520-62-42 05:57:00 Test Item Value Reference Range Interpretation Comments Monocytes (test code = Monocytes) 6.7 2.0-12.0 [facility]aleNicncmdCPANBOOGCY6821-45-12 05:57:00 Test Item Value Reference Range Interpretation Comments Lymphocytes (test code = Lymphocytes) 8.6 20.0-40.0 [facility]aleAoqqtcfDDNRQNUMGW6767-04-91 05:57:00 Test Item Value Reference Range Interpretation Comments Monocytes # (test code 0.7 See_Comment [Aut omated message] The = Monocytes #) system which generated this result tra nsmitted reference range : <=0.8. The reference r renu was not used to int erpret this result as normal/abnormal . [facility]aleSqvxqidMGILJDYWTT6551-30-36 05:57:00 Test Item Value Reference Range Interpretation Comments Platelet (test code = Platelet) 116 133-450 [facility]aleObesidsSGPEEQJQLH8480-32-72 05:57:00 Test Item Value Reference Range Interpretation Comments RDW (test code = RDW) 15.3 11.5-14.5 [facility]aleVsmaincNYEIRSSPDL8732-27-07 05:57:00 Test Item Value Reference Range Interpretation Comments MCV (test code = MCV) 96.8 80.0-94.0 [facility]aleBsygyilDUDGIBBHAJ0377-70-79 05:57:00 Test Item Value Reference Range Interpretation Comments MCH (test code = MCH) 31.8 pg 27.0-31.0 [facility]aleSrdjiriZWEUNPCXVE3398-22-90 05:57:00 Test Item Value Reference Range Interpretation Comments Hgb (test code = Hgb) 10.6 14.0-18.0 [facility]valeZjdokolPLOJNEHGNE7376-64-51 05:57:00 Test Item Value Reference Range Interpretation Comments RBC (test code = RBC) 3.32 4.70-6.10 [facility]aleXyybediHGNMTAYQHB9971-18-67 05:57:00 Test Item Value Reference Range Interpretation Comments MCHC (test code = MCHC) 32.8 32.0-36.0 [facility]aleNrnytnlWYZFIKYGGI0107-79-77 05:57:00 Test Item Value Reference Range Interpretation Comments Hct (test code = Hct) 32.2 42.0-54.0 [facility]aleZhhkgblZBAJWATRJV7331-10-86 05:57:00 Test Item Value Reference Range Interpretation Comments MPV (test code = MPV) 9.7 7.4-10.4 [facility]valeLonegeqSAUDKPQHOR9307-39-71 05:57:00 Test Item Value Reference Range Interpretation Comments WBC (test code = WBC) 10.9 3.7-10.4 [facility]2018-07-17 05:57:00 Test Item Value Reference Range Interpretation Comments Phosphorus (test code = Phosphorus) 3.6 2.5-4.5 [facility]2018-07-17 05:57:00 Test Item Value Reference Range Interpretation Comments Magnesium Lvl (test code = Magnesium 2.4 1.8-2.4 Lvl) [facility]aleFxafzdnQFGHJHKZIO1597-41-14 05:57:00 Test Item Value Reference Range Interpretation Comments Segs (test code = Segs) 84.1 45.0-75.0 [facility]aleWafkwzgTWQCALHSBF6732-83-50 05:57:00 Test Item Value Reference Range Interpretation Comments Lymphocytes # (test code = Lymphocytes 0.9 1.0-5.5 #) [facility]aleRkrupaiQCWKWNBSRA5254-08-70 05:57:00 Test Item Value Reference Range Interpretation Comments Basophils (test code = 0.2 See_Comment [Aut omated message] The Basophils) system which ge nerated this result tra nsmitted reference range : <=1.0. The reference r renu was not used to int erpret this result as normal/abnormal . [facility]alePfucbplKVFLLCJPDC6699-04-85 05:57:00 Test Item Value Reference Range Interpretation Comments Eosinophils (test code = 0.4 See_Comment [A utomated message] The Eosinophils) system which ge nerated this result tra nsmitted reference range : <=4.0. The reference r renu was not used to int erpret this result as normal/abnormal . [facility]aleQjcglbjQARXVZPTBR5015-94-31 05:57:00 Test Item Value Reference Range Interpretation Comments Neutrophils # (test code = Neutrophils 9.2 1.5-8.1 #) [facility]aleSbuwqlmSPFYFULKIB1021-36-78 05:57:00 Test Item Value Reference Range Interpretation Comments Monocytes (test code = Monocytes) 6.7 2.0-12.0 [facility]aleXodsjacSUADGVQFEI6503-42-82 05:57:00 Test Item Value Reference Range Interpretation Comments Lymphocytes (test code = Lymphocytes) 8.6 20.0-40.0 [facility]aleWxkszyhGTIAVRBKQD8711-57-64 05:57:00 Test Item Value Reference Range Interpretation Comments Monocytes # (test code 0.7 See_Comment [Aut omated message] The = Monocytes #) system which generated this result tra nsmitted reference range : <=0.8. The reference r renu was not used to int erpret this result as normal/abnormal . [facility]aleBneqsevDUZYQSMINA0865-79-47 05:57:00 Test Item Value Reference Range Interpretation Comments Platelet (test code = Platelet) 116 133-450 [facility]aleXrsosqsNLNSRILDCX5517-20-15 05:57:00 Test Item Value Reference Range Interpretation Comments RDW (test code = RDW) 15.3 11.5-14.5 [facility]aleFdbxmueCBKRNVWLKH0095-61-62 05:57:00 Test Item Value Reference Range Interpretation Comments MCV (test code = MCV) 96.8 80.0-94.0 [facility]aleCmnopumSPHEXRBXIV7185-41-18 05:57:00 Test Item Value Reference Range Interpretation Comments MCH (test code = MCH) 31.8 pg 27.0-31.0 [place] [id number] 12:36:00 Test Item Value Reference Range Interpretation Comments Tacrolimus Lvl (test code = Tacrolimus 4.3 5.0-15.0 Lvl) [place] [id number] 12:36:00 Test Item Value Reference Range Interpretation Comments Tacrolimus Lvl (test code = Tacrolimus 4.3 5.0-15.0 Lvl) [place] 69698018-07-16 12:36:00 Test Item Value Reference Range Interpretation Comments Tacrolimus Lvl (test code = Tacrolimus 4.3 5.0-15.0 Lvl) [facility]aleFxacyxyLSKLKCCKDA0930-89-50 05:53:00 Test Item Value Reference Range Interpretation Comments Lymphocytes (test code = Lymphocytes) 7.8 20.0-40.0 [facility]aleHkcbaveDLAFXBSKHX4656-01-55 05:53:00 Test Item Value Reference Range Interpretation Comments Monocytes (test code = Monocytes) 7.6 2.0-12.0 [facility]aleMhoameoHZKSQCLILJ7664-20-11 05:53:00 Test Item Value Reference Range Interpretation Comments Eosinophils (test code = 0.6 See_Comment [A utomated message] The Eosinophils) system which ge nerated this result tra nsmitted reference range : <=4.0. The reference r renu was not used to int erpret this result as normal/abnormal . [facility]aleWcliwksAOLIQQKMXF8511-88-65 05:53:00 Test Item Value Reference Range Interpretation Comments Neutrophils # (test code = Neutrophils 9.1 1.5-8.1 #) [facility]aleFdlrybjRGIZAFGWTJ2089-59-87 05:53:00 Test Item Value Reference Range Interpretation Comments Basophils (test code = 0.2 See_Comment [Aut omated message] The Basophils) system which ge nerated this result tra nsmitted reference range : <=1.0. The reference r renu was not used to int erpret this result as normal/abnormal . [facility]aleQmsefjjSZEXQQUTWU8340-83-29 05:53:00 Test Item Value Reference Range Interpretation Comments Lymphocytes # (test code = Lymphocytes 0.8 1.0-5.5 #) [facility]aleXptngyiSMMMEZRRZL2709-76-30 05:53:00 Test Item Value Reference Range Interpretation Comments Monocytes # (test code 0.8 See_Comment [Aut omated message] The = Monocytes #) system which generated this result tra nsmitted reference range : <=0.8. The reference r renu was not used to int erpret this result as normal/abnormal . [facility]aleEbwcbovJQMBQZSGRX9806-39-16 05:53:00 Test Item Value Reference Range Interpretation Comments Eosinophils # (test code 0.1 See_Comment [A utomated message] The = Eosinophils #) system whic h generated this result tra nsmitted reference range : <=0.5. The reference r renu was not used to int erpret this result as normal/abnormal . [facility]aleDfigrmyMUPTTZGISZ0169-45-38 05:53:00 Test Item Value Reference Range Interpretation Comments Segs (test code = Segs) 83.8 45.0-75.0 [facility]aleLeeqponVDXRSHIODE3057-27-42 05:53:00 Test Item Value Reference Range Interpretation Comments RBC (test code = RBC) 3.33 4.70-6.10 [facility]aleKuswgmfANOSSAJIAY2721-61-92 05:53:00 Test Item Value Reference Range Interpretation Comments WBC (test code = WBC) 10.8 3.7-10.4 [facility]aleHgqqnvaZMQLRFENIM9317-16-57 05:53:00 Test Item Value Reference Range Interpretation Comments RDW (test code = RDW) 15.2 11.5-14.5 [facility]aleLblmneoFHLKKWCWSF9174-85-65 05:53:00 Test Item Value Reference Range Interpretation Comments Platelet (test code = Platelet) 118 133-450 [facility]valeRtovyobTSOSXTPHYM7849-42-68 05:53:00 Test Item Value Reference Range Interpretation Comments MPV (test code = MPV) 9.6 7.4-10.4 [facility]aleFlsrmgeIDAQQFFYHT3426-83-30 05:53:00 Test Item Value Reference Range Interpretation Comments MCHC (test code = MCHC) 33.5 32.0-36.0 [facility]aleNsggaxkGBVLDFBUEA6210-27-16 05:53:00 Test Item Value Reference Range Interpretation Comments MCH (test code = MCH) 32.3 pg 27.0-31.0 [facility]aleDmajscjRWVYMBDAOY3008-11-06 05:53:00 Test Item Value Reference Range Interpretation Comments Hct (test code = Hct) 32.1 42.0-54.0 [facility]valeHdixtexAHICXMFOGK1176-63-99 05:53:00 Test Item Value Reference Range Interpretation Comments MCV (test code = MCV) 96.2 80.0-94.0 [facility]aleSzacscbZRAMOEWFTX0389-84-84 05:53:00 Test Item Value Reference Range Interpretation Comments Hgb (test code = Hgb) 10.8 14.0-18.0 [facility]aleFluvgdaDIHGZINGFQ9802-46-70 05:53:00 Test Item Value Reference Range Interpretation Comments Lymphocytes (test code = Lymphocytes) 7.8 20.0-40.0 [facility]aleOwvkhvdNUZIYKAVLN9966-11-85 05:53:00 Test Item Value Reference Range Interpretation Comments Monocytes (test code = Monocytes) 7.6 2.0-12.0 [facility]aleMrkwodhJDROVRVNSP3370-32-83 05:53:00 Test Item Value Reference Range Interpretation Comments Eosinophils (test code = 0.6 See_Comment [A utomated message] The Eosinophils) system which ge nerated this result tra nsmitted reference range : <=4.0. The reference r renu was not used to int erpret this result as normal/abnormal . [facility]aleHnboraxHLSIGGYJOF7446-42-57 05:53:00 Test Item Value Reference Range Interpretation Comments Neutrophils # (test code = Neutrophils 9.1 1.5-8.1 #) [facility]aleVijraldZDGVDXCGFP1843-09-09 05:53:00 Test Item Value Reference Range Interpretation Comments Basophils (test code = 0.2 See_Comment [Aut omated message] The Basophils) system which ge nerated this result tra nsmitted reference range : <=1.0. The reference r renu was not used to int erpret this result as normal/abnormal . [facility]aleQcnssioKXTGGYEUQH6479-15-59 05:53:00 Test Item Value Reference Range Interpretation Comments Lymphocytes # (test code = Lymphocytes 0.8 1.0-5.5 #) [facility]aleZxhuohcNBRWJBBAQI3483-45-85 05:53:00 Test Item Value Reference Range Interpretation Comments Monocytes # (test code 0.8 See_Comment [Aut omated message] The = Monocytes #) system which generated this result tra nsmitted reference range : <=0.8. The reference r renu was not used to int erpret this result as normal/abnormal . [facility]aleUyrqxxlWNEKYUNVMZ5920-82-74 05:53:00 Test Item Value Reference Range Interpretation Comments Eosinophils # (test code 0.1 See_Comment [A utomated message] The = Eosinophils #) system whic h generated this result tra nsmitted reference range : <=0.5. The reference r renu was not used to int erpret this result as normal/abnormal . [facility]aleAueggxgWJPYJANFCI7032-29-02 05:53:00 Test Item Value Reference Range Interpretation Comments Segs (test code = Segs) 83.8 45.0-75.0 [facility]valeLraugggCVAXKAKZAV9784-99-35 05:53:00 Test Item Value Reference Range Interpretation Comments RBC (test code = RBC) 3.33 4.70-6.10 [facility]aleTetnridDQOBBQUSSQ7214-96-51 05:53:00 Test Item Value Reference Range Interpretation Comments WBC (test code = WBC) 10.8 3.7-10.4 [facility]valeCfdhgptFUSHJVANWD9275-35-80 05:53:00 Test Item Value Reference Range Interpretation Comments RDW (test code = RDW) 15.2 11.5-14.5 [facility]aleLdmahnfKPZNFOXVZQ9763-64-63 05:53:00 Test Item Value Reference Range Interpretation Comments Platelet (test code = Platelet) 118 133-450 [facility]valeUjhkaflEGXYFJQTXX5031-67-46 05:53:00 Test Item Value Reference Range Interpretation Comments MPV (test code = MPV) 9.6 7.4-10.4 [facility]aleMhsrmokJXWHQKQAXQ6724-70-60 05:53:00 Test Item Value Reference Range Interpretation Comments MCHC (test code = MCHC) 33.5 32.0-36.0 [facility]aleOnjriueCVRZFIEIOQ3624-33-46 05:53:00 Test Item Value Reference Range Interpretation Comments MCH (test code = MCH) 32.3 pg 27.0-31.0 [facility]aleQpktgteDZXJPYMGHS7779-23-17 05:53:00 Test Item Value Reference Range Interpretation Comments Hct (test code = Hct) 32.1 42.0-54.0 [facility]aleUcrosxzTREQKLBUGE2717-08-07 05:53:00 Test Item Value Reference Range Interpretation Comments MCV (test code = MCV) 96.2 80.0-94.0 [facility]aleWwdmomtJKMHUXMARD1210-28-92 05:53:00 Test Item Value Reference Range Interpretation Comments Hgb (test code = Hgb) 10.8 14.0-18.0 [facility]aleHtdzfhxNRQUKYKCEM0735-65-38 05:53:00 Test Item Value Reference Range Interpretation Comments Lymphocytes (test code = Lymphocytes) 7.8 20.0-40.0 [facility]aleCmqdnpdGDPFDVTSTV4848-18-06 05:53:00 Test Item Value Reference Range Interpretation Comments Monocytes (test code = Monocytes) 7.6 2.0-12.0 [facility]aleIzojlwxPNICLVIWYO3965-17-18 05:53:00 Test Item Value Reference Range Interpretation Comments Eosinophils (test code = 0.6 See_Comment [A utomated message] The Eosinophils) system which ge nerated this result tra nsmitted reference range : <=4.0. The reference r renu was not used to int erpret this result as normal/abnormal . [facility]aleLqbxgbaADQOHOVZNP7604-90-57 05:53:00 Test Item Value Reference Range Interpretation Comments Neutrophils # (test code = Neutrophils 9.1 1.5-8.1 #) [facility]aleJnimajlWKGCXGYEKX2899-25-01 05:53:00 Test Item Value Reference Range Interpretation Comments Basophils (test code = 0.2 See_Comment [Aut omated message] The Basophils) system which ge nerated this result tra nsmitted reference range : <=1.0. The reference r renu was not used to int erpret this result as normal/abnormal . [facility]aleGslkaplKHMQWEVYTQ7590-26-39 05:53:00 Test Item Value Reference Range Interpretation Comments Lymphocytes # (test code = Lymphocytes 0.8 1.0-5.5 #) [facility]aleHxmfobwTQEYINNRJS2235-31-56 05:53:00 Test Item Value Reference Range Interpretation Comments Monocytes # (test code 0.8 See_Comment [Aut omated message] The = Monocytes #) system which generated this result tra nsmitted reference range : <=0.8. The reference r renu was not used to int erpret this result as normal/abnormal . [facility]aleTiaouhmDTNJUOMKKF4350-59-35 05:53:00 Test Item Value Reference Range Interpretation Comments Eosinophils # (test code 0.1 See_Comment [A utomated message] The = Eosinophils #) system whic h generated this result tra nsmitted reference range : <=0.5. The reference r renu was not used to int erpret this result as normal/abnormal . [facility]aleRdnsjkcRHFCGPGAYJ6896-32-29 05:53:00 Test Item Value Reference Range Interpretation Comments Segs (test code = Segs) 83.8 45.0-75.0 [facility]aleFybqevaHTPOEMDVZA6570-83-41 05:53:00 Test Item Value Reference Range Interpretation Comments RBC (test code = RBC) 3.33 4.70-6.10 [facility]aleHvsxnaeTSHNOCWEOL0592-35-06 05:53:00 Test Item Value Reference Range Interpretation Comments WBC (test code = WBC) 10.8 3.7-10.4 [facility]aleKdystcxPVNCEYAHHJ1547-40-76 05:53:00 Test Item Value Reference Range Interpretation Comments RDW (test code = RDW) 15.2 11.5-14.5 [facility]aleBztkytkZUYOGMAXUW2792-31-59 05:53:00 Test Item Value Reference Range Interpretation Comments Platelet (test code = Platelet) 118 133-450 [facility]aleAgnvjbxDBTAZJOXLA8023-32-97 05:53:00 Test Item Value Reference Range Interpretation Comments MPV (test code = MPV) 9.6 7.4-10.4 [facility]aleBbzmkqdRWVKXMSFAE3056-49-22 05:53:00 Test Item Value Reference Range Interpretation Comments MCHC (test code = MCHC) 33.5 32.0-36.0 [facility]aleSbquftyTSOEKPCCKF0015-87-72 05:53:00 Test Item Value Reference Range Interpretation Comments MCH (test code = MCH) 32.3 pg 27.0-31.0 [facility]aleNgdcfqzVQQZYQDAHI3249-60-67 05:53:00 Test Item Value Reference Range Interpretation Comments Hct (test code = Hct) 32.1 42.0-54.0 [facility]aleIbegcinOPGYGCDJDE0810-53-10 05:53:00 Test Item Value Reference Range Interpretation Comments MCV (test code = MCV) 96.2 80.0-94.0 [facility]aleUsmxdifGITWVDCMIG2063-62-40 05:53:00 Test Item Value Reference Range Interpretation Comments Hgb (test code = Hgb) 10.8 14.0-18.0 [facility] CampusMICIN:SUSC:PT:ISOLATE:ORDQN:[id number] 19:19:00 Test Item Value Reference Range Interpretation Comments Culture: Urine This Report Contains A (test code = Correction Disregard Culture: Urine) 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 Corrected Report Is: >100,000 CFU/mL Escherichia coli . Upon Supplemental Testing, This Organism Was Not Found To Produce An Extended Spectrum Beta Lactamase (ESBL). Phone Report Made To: Ivania Guzman at [facility] 8JNP At: 04/13/2018 08:13 Called By: Read Back Ok [facility] CampusMICIN:SUSC:PT:ISOLATE:ORDQN:[id number] 19:19:00 Test Item Value Reference Range Interpretation Comments Escherichia coli (test code Escherichia coli = Escherichia coli) [facility]annIR[facility]EMAIN:SUSC:PT:ISOLATE:ORDQN:[id number] 19:19:00 Test Item Value Reference Range Interpretation Comments Culture: Urine This Report Contains A (test code = Correction Disregard Culture: Urine) 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 Corrected Report Is: >100,000 CFU/mL Escherichia coli . Upon Supplemental Testing, This Organism Was Not Found To Produce An Extended Spectrum Beta Lactamase (ESBL). 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 Corrected Report Is: >100,000 CFU/mL Escherichia coli . Upon Supplemental Testing, This Organism Was Not Found To Produce An Extended Spectrum Beta Lactamase (ESBL). Phone Report Made To: Ivania Guzman at [facility] At: 04/13/2018 08:13 Called By: Read Back Ok [facility] VladannTAMICIN:SUSC:PT:ISOLATE:ORDQN:[id number] 19:19:00 Test Item Value Reference Range Interpretation Comments Escherichia coli (test code Escherichia coli = Escherichia coli) [facility]annDR[facility] [id number] 18:42:00 Test Item Value Reference Range Interpretation Comments U Amph Scr (test code Negative *NA*(04/09/18 = U Amph Scr) 1:42 PM) [facility] [id number] 18:42:00 Test Item Value Reference Range Interpretation Comments U Cannab Scr (test Negative *NA*(04/09/18 code = U Cannab Scr) 1:42 PM) [facility] [id number] 18:42:00 Test Item Value Reference Range Interpretation Comments U Phencyclidine Scr (test Negative code = U Phencyclidine *NA*(04/09/18 1:42 Scr) PM) [facility] [id number] 18:42:00 Test Item Value Reference Range Interpretation Comments U Opiate Scr (test Positive *ABN*(04/09/18 code = U Opiate Scr) 1:42 PM) [facility] [id number] 18:42:00 Test Item Value Reference Range Interpretation Comments UDS Note (test code = See Note (04/09/18 1:42 UDS Note) PM) [facility] [id number] 18:42:00 Test Item Value Reference Range Interpretation Comments U Maureen Scr (test code Negative *NA*(04/09/18 = U Maureen Scr) 1:42 PM) [facility] [id number] 18:42:00 Test Item Value Reference Range Interpretation Comments U Cocaine Scr (test Negative *NA*(04/09/18 code = U Cocaine Scr) 1:42 PM) [facility] [id number] 18:42:00 Test Item Value Reference Range Interpretation Comments U Benzodiaz Scr (test Negative *NA*(04/09/18 code = U Benzodiaz Scr) 1:42 PM) [facility] [id number] 18:42:00 Test Item Value Reference Range Interpretation Comments UA Urobilinogen (test code = UA <=1.0 mg/dL 0.1-1.0 Urobilinogen) [facility] [id number] 18:42:00 Test Item Value Reference Range Interpretation Comments UA Sq Epi (test code = UA Sq Epi) None [facility]en [facility] [id number] 18:42:00 Test Item Value Reference Range Interpretation Comments UA Blood (test code = Large *ABN*(04/09/18 UA Blood) 1:42 PM) [facility] [id number] 18:42:00 Test Item Value Reference Range Interpretation Comments UA Nitrite (test code Negative (04/09/18 1:42 = UA Nitrite) PM) [facility] [id number] 18:42:00 Test Item Value Reference Range Interpretation Comments UA Leuk Est (test code Large *ABN*(04/09/18 = UA Leuk Est) 1:42 PM) [facility] AND [id number] 18:42:00 Test Item Value Reference Range Interpretation Comments UA WBC (test code = no gt See_Comment [Automa karla message] The UA WBC) system which ge nerated this result transmit karla reference range : <=5. The reference range was not used to interpr et this result as parul l/abnormal. [facility] AND [id number] 18:42:00 Test Item Value Reference Range Interpretation Comments UA RBC (test code = 125 See_Comment [Automa karla message] The UA RBC) system which ge nerated this result transmit karla reference range : <=2. The reference range was not used to interpr et this result as parul l/abnormal. [facility] AND [id number] 18:42:00 Test Item Value Reference Range Interpretation Comments UA Glucose (test code = UA Negative mg/dL Glucose) [facility] AND [id number] 18:42:00 Test Item Value Reference Range Interpretation Comments UA Ketones (test code = UA Negative mg/dL Ketones) [facility] AND [id number] 18:42:00 Test Item Value Reference Range Interpretation Comments UA Bili (test code = Negative *NA*(04/09/18 UA Bili) 1:42 PM) [facility] AND [id number] 18:42:00 Test Item Value Reference Range Interpretation Comments UA Bacteria (test code = UA Occasional /HPF Bacteria) [facility] AND [id number] 18:42:00 Test Item Value Reference Range Interpretation Comments UA Color (test code = Yellow *NA*(04/09/18 UA Color) 1:42 PM) [facility] AND [id number] 18:42:00 Test Item Value Reference Range Interpretation Comments UA Turbidity (test code Marked *ABN*(04/09/18 = UA Turbidity) 1:42 PM) [facility] AND [id number] 18:42:00 Test Item Value Reference Range Interpretation Comments UA Spec Grav (test code = UA Spec 1.013 1 Grav) [facility] [id number] 18:42:00 Test Item Value Reference Range Interpretation Comments UA pH (test code = UA pH) 5.5 1 5.0-8.0 [facility] [id number] 18:42:00 Test Item Value Reference Range Interpretation Comments UA Protein (test code = UA Protein) 100 mg/dL [facility] [id number] 18:42:00 Test Item Value Reference Range Interpretation Comments U Amph Scr (test code Negative *NA*(04/09/18 = U Amph Scr) 1:42 PM) [facility] [id number] 18:42:00 Test Item Value Reference Range Interpretation Comments U Cannab Scr (test Negative *NA*(04/09/18 code = U Cannab Scr) 1:42 PM) [facility] [id number] 18:42:00 Test Item Value Reference Range Interpretation Comments U Phencyclidine Scr (test Negative code = U Phencyclidine *NA*(04/09/18 1:42 Scr) PM) [facility] [id number] 18:42:00 Test Item Value Reference Range Interpretation Comments U Opiate Scr (test Positive *ABN*(04/09/18 code = U Opiate Scr) 1:42 PM) [facility] [id number] 18:42:00 Test Item Value Reference Range Interpretation Comments UDS Note (test code = See Note (04/09/18 1:42 UDS Note) PM) [facility] [id number] 18:42:00 Test Item Value Reference Range Interpretation Comments U Maureen Scr (test code Negative *NA*(04/09/18 = U Maureen Scr) 1:42 PM) [facility] [id number] 18:42:00 Test Item Value Reference Range Interpretation Comments U Cocaine Scr (test Negative *NA*(04/09/18 code = U Cocaine Scr) 1:42 PM) [facility] [id number] 18:42:00 Test Item Value Reference Range Interpretation Comments U Benzodiaz Scr (test Negative *NA*(04/09/18 code = U Benzodiaz Scr) 1:42 PM) [facility] [id number] 18:42:00 Test Item Value Reference Range Interpretation Comments UA Urobilinogen (test code = UA <=1.0 mg/dL 0.1-1.0 Urobilinogen) [facility] AND [id number] 18:42:00 Test Item Value Reference Range Interpretation Comments UA Sq Epi (test code = UA Sq Epi) None Seen [facility] AND [id number] 18:42:00 Test Item Value Reference Range Interpretation Comments UA Blood (test code = Large *ABN*(04/09/18 UA Blood) 1:42 PM) [facility] AND [id number] 18:42:00 Test Item Value Reference Range Interpretation Comments UA Nitrite (test code Negative (04/09/18 1:42 = UA Nitrite) PM) [facility] AND [id number] 18:42:00 Test Item Value Reference Range Interpretation Comments UA Leuk Est (test code Large *ABN*(04/09/18 = UA Leuk Est) 1:42 PM) [facility] AND [id number] 18:42:00 Test Item Value Reference Range Interpretation Comments UA WBC (test code = no gt See_Comment [Automa karla message] The UA WBC) system which ge nerated this result transmit karla reference range : <=5. The reference range was not used to interpr et this result as parul l/abnormal. [facility] AND [id number] 18:42:00 Test Item Value Reference Range Interpretation Comments UA RBC (test code = 125 See_Comment [Automa karla message] The UA RBC) system which ge nerated this result transmit karla reference range : <=2. The reference range was not used to interpr et this result as parul l/abnormal. [facility] AND [id number] 18:42:00 Test Item Value Reference Range Interpretation Comments UA Glucose (test code = UA Negative mg/dL Glucose) [facility] AND [id number] 18:42:00 Test Item Value Reference Range Interpretation Comments UA Ketones (test code = UA Negative mg/dL Ketones) [facility] AND [id number] 18:42:00 Test Item Value Reference Range Interpretation Comments UA Bili (test code = Negative *NA*(04/09/18 UA Bili) 1:42 PM) [facility] [id number] 18:42:00 Test Item Value Reference Range Interpretation Comments UA Bacteria (test code = UA Occasional /HPF Bacteria) [facility] [id number] 18:42:00 Test Item Value Reference Range Interpretation Comments UA Color (test code = Yellow *NA*(04/09/18 UA Color) 1:42 PM) [facility] [id number] 18:42:00 Test Item Value Reference Range Interpretation Comments UA Turbidity (test code Marked *ABN*(04/09/18 = UA Turbidity) 1:42 PM) [facility] [id number] 18:42:00 Test Item Value Reference Range Interpretation Comments UA Spec Grav (test code = UA Spec 1.013 1 Grav) [facility] [id number] 18:42:00 Test Item Value Reference Range Interpretation Comments UA pH (test code = UA pH) 5.5 1 5.0-8.0 [facility] [id number] 18:42:00 Test Item Value Reference Range Interpretation Comments UA Protein (test code = UA Protein) 100 mg/dL [facility] [id number] 18:42:00 Test Item Value Reference Range Interpretation Comments U Amph Scr (test code Negative *NA*(04/09/18 = U Amph Scr) 1:42 PM) [facility] [id number] 18:42:00 Test Item Value Reference Range Interpretation Comments U Cannab Scr (test Negative *NA*(04/09/18 code = U Cannab Scr) 1:42 PM) [facility] [id number] 18:42:00 Test Item Value Reference Range Interpretation Comments U Phencyclidine Scr (test Negative code = U Phencyclidine *NA*(04/09/18 1:42 Scr) PM) [facility] [id number] 18:42:00 Test Item Value Reference Range Interpretation Comments U Opiate Scr (test Positive *ABN*(04/09/18 code = U Opiate Scr) 1:42 PM) [facility] [id number] 18:42:00 Test Item Value Reference Range Interpretation Comments UDS Note (test code = See Note (7/14/18 1:42 UDS Note) PM) [facility] [id number] 18:42:00 Test Item Value Reference Range Interpretation Comments U Maureen Scr (test code Negative *NA*(04/09/18 = U Maureen Scr) 1:42 PM) [facility] [id number] 18:42:00 Test Item Value Reference Range Interpretation Comments U Cocaine Scr (test Negative *NA*(04/09/18 code = U Cocaine Scr) 1:42 PM) [facility] [id number] 18:42:00 Test Item Value Reference Range Interpretation Comments U Benzodiaz Scr (test Negative *NA*(04/09/18 code = U Benzodiaz Scr) 1:42 PM) [facility] [id number] 18:42:00 Test Item Value Reference Range Interpretation Comments UA Urobilinogen (test code = UA <=1.0 mg/dL 0.1-1.0 Urobilinogen) [facility] [id number] 18:42:00 Test Item Value Reference Range Interpretation Comments UA Sq Epi (test code = UA Sq Epi) None [facility]en [facility] [id number] 18:42:00 Test Item Value Reference Range Interpretation Comments UA Blood (test code = Large *ABN*(04/09/18 UA Blood) 1:42 PM) [facility] [id number] 18:42:00 Test Item Value Reference Range Interpretation Comments UA Nitrite (test code Negative (04/09/18 1:42 = UA Nitrite) PM) [facility] [id number] 18:42:00 Test Item Value Reference Range Interpretation Comments UA Leuk Est (test code Large *ABN*(04/09/18 = UA Leuk Est) 1:42 PM) [facility] [id number] 18:42:00 Test Item Value Reference Range Interpretation Comments UA WBC (test code = no gt See_Comment [Automa karla message] The UA WBC) system which ge nerated this result transmit karla reference range : <=5. The reference range was not used to interpr et this result as parul l/abnormal. [facility] [id number] 18:42:00 Test Item Value Reference Range Interpretation Comments UA RBC (test code = 125 See_Comment [Automa karla message] The UA RBC) system which ge nerated this result transmit karla reference range : <=2. The reference range was not used to interpr et this result as parul l/abnormal. [facility] AND [id number] 18:42:00 Test Item Value Reference Range Interpretation Comments UA Glucose (test code = UA Negative mg/dL Glucose) [facility] AND [id number] 18:42:00 Test Item Value Reference Range Interpretation Comments UA Ketones (test code = UA Negative mg/dL Ketones) [facility] AND [id number] 18:42:00 Test Item Value Reference Range Interpretation Comments UA Bili (test code = Negative *NA*(04/09/18 UA Bili) 1:42 PM) [facility] AND [id number] 18:42:00 Test Item Value Reference Range Interpretation Comments UA Bacteria (test code = UA Occasional /HPF Bacteria) [facility] AND [id number] 18:42:00 Test Item Value Reference Range Interpretation Comments UA Color (test code = Yellow *NA*(04/09/18 UA Color) 1:42 PM) [facility] AND [id number] 18:42:00 Test Item Value Reference Range Interpretation Comments UA Turbidity (test code Marked *ABN*(04/09/18 = UA Turbidity) 1:42 PM) [facility] AND [id number] 18:42:00 Test Item Value Reference Range Interpretation Comments UA Spec Grav (test code = UA Spec 1.013 1 Grav) [facility] AND [id number] 18:42:00 Test Item Value Reference Range Interpretation Comments UA pH (test code = UA pH) 5.5 1 5.0-8.0 [facility] AND [id number] 18:42:00 Test Item Value Reference Range Interpretation Comments UA Protein (test code = UA Protein) 100 mg/dL [id number] 10:37:00 Test Item Value Reference Range Interpretation Comments Basophils (test code = 0.2 See_Comment [Aut omated message] The Basophils) system which ge nerated this result tra nsmitted reference range : <=1.0. The reference r renu was not used to int erpret this result as normal/abnormal . [id number] 10:37:00 Test Item Value Reference Range Interpretation Comments Eosinophils (test code = 0.8 See_Comment [A utomated message] The Eosinophils) system which ge nerated this result tra nsmitted reference range : <=4.0. The reference r renu was not used to int erpret this result as normal/abnormal . [id number] 10:37:00 Test Item Value Reference Range Interpretation Comments Eosinophils # (test code 0.1 See_Comment [A utomated message] The = Eosinophils #) system [employer] generated this result tra nsmitted reference range : <=0.5. The reference r renu was not used to int erpret this result as normal/abnormal . [id number] 10:37:00 Test Item Value Reference Range Interpretation Comments Basophils (test code = 0.2 See_Comment [Aut omated message] The Basophils) system which ge nerated this result tra nsmitted reference range : <=1.0. The reference r renu was not used to int erpret this result as normal/abnormal . [id number] 10:37:00 Test Item Value Reference Range Interpretation Comments Eosinophils (test code = 0.8 See_Comment [A utomated message] The Eosinophils) system which ge nerated this result tra nsmitted reference range : <=4.0. The reference r renu was not used to int erpret this result as normal/abnormal . [id number] 10:37:00 Test Item Value Reference Range Interpretation Comments Eosinophils # (test code 0.1 See_Comment [A utomated message] The = Eosinophils #) system [employer] generated this result tra nsmitted reference range : <=0.5. The reference r renu was not used to int erpret this result as normal/abnormal . [id number] 10:37:00 Test Item Value Reference Range Interpretation Comments Basophils (test code = 0.2 See_Comment [Aut omated message] The Basophils) system which ge nerated this result tra nsmitted reference range : <=1.0. The reference r renu was not used to int erpret this result as normal/abnormal . [id number] 10:37:00 Test Item Value Reference Range Interpretation Comments Eosinophils (test code = 0.8 See_Comment [A utomated message] The Eosinophils) system which ge nerated this result tra nsmitted reference range : <=4.0. The reference r renu was not used to int erpret this result as normal/abnormal . [id number] 10:37:00 Test Item Value Reference Range Interpretation Comments Eosinophils # (test code 0.1 See_Comment [A utomated message] The = Eosinophils #) system whic h generated this result tra nsmitted reference range : <=0.5. The reference r renu was not used to int erpret this result as normal/abnormal . [facility] AND [id number] 05:20:00 Test Item Value Reference Range Interpretation Comments UA [employer] Cast 6-10 (04/08/18 See_Comment [Automated me ssage] (test code = UA 12:20 AM) The system w hich [employer]) generated this result transmitted ref erence range: <=2. The reference range was not used to int erpret this result as normal/abnormal . Formerly [facility] AND [id number] 05:20:00 Test Item Value Reference Range Interpretation Comments UA Coarse Gran (test code = UA 6-10 /LPF Coarse Gran) Formerly [facility] AND [id number] 05:20:00 Test Item Value Reference Range Interpretation Comments UA Color (test code = Yellow *NA*(04/08/18 UA Color) 12:20 AM) Formerly [facility] AND [id number] 05:20:00 Test Item Value Reference Range Interpretation Comments UA Glucose (test code Negative (04/08/18 12:20 = UA Glucose) AM) Formerly [facility] AND [id number] 05:20:00 Test Item Value Reference Range Interpretation Comments UA Protein (test code = UA Protein) 30 mg/dL Formerly [facility] AND [id number] 05:20:00 Test Item Value Reference Range Interpretation Comments UA pH (test code = UA pH) 5.5 1 5.0-8.0 Formerly [facility] AND [id number] 05:20:00 Test Item Value Reference Range Interpretation Comments UA Spec Grav (test code = UA Spec 1.025 1 Grav) Formerly [facility] AND [id number] 05:20:00 Test Item Value Reference Range Interpretation Comments UA Turbidity (test code Slight Cloudy = UA Turbidity) (04/08/18 12:20 AM) Formerly [facility] AND [id number] 05:20:00 Test Item Value Reference Range Interpretation Comments UA Nitrite (test code Negative (04/08/18 12:20 = UA Nitrite) AM) Formerly [facility] AND [id number] 05:20:00 Test Item Value Reference Range Interpretation Comments UA Urobilinogen (test code = UA 0.2 0.1-1.0 Urobilinogen) Formerly [facility] AND [id number] 05:20:00 Test Item Value Reference Range Interpretation Comments UA Blood (test code = Large *ABN*(04/08/18 UA Blood) 12:20 AM) Formerly [facility] AND [id number] 05:20:00 Test Item Value Reference Range Interpretation Comments UA Bili (test code = Negative *NA*(04/08/18 UA Bili) 12:20 AM) Formerly [facility] AND [id number] 05:20:00 Test Item Value Reference Range Interpretation Comments UA Ketones (test code Negative *NA*(04/08/18 = UA Ketones) 12:20 AM) Formerly [facility] AND [id number] 05:20:00 Test Item Value Reference Range Interpretation Comments UA Bacteria (test code = UA Few /HPF Bacteria) Formerly [facility] AND [id number] 05:20:00 Test Item Value Reference Range Interpretation Comments UA RBC (test code 21-50 /HPF See_Comment [Automate d message] The = UA RBC) system which ge nerated this result tra nsmitted reference range : <=2. The reference range was not used to interpr et this result as normal/abnormal . Formerly [facility] AND [id number] 05:20:00 Test Item Value Reference Range Interpretation Comments UA WBC (test code = UA WBC) 1-3 Formerly [facility] AND [id number] 05:20:00 Test Item Value Reference Range Interpretation Comments UA Sq Epi (test code = UA Sq Occasional /LPF Epi) Formerly [facility] AND [id number] 05:20:00 Test Item Value Reference Range Interpretation Comments UA Leuk Est (test Negative (04/08/18 12:20 code = UA Leuk Est) AM) Formerly [facility] AND [id number] 05:20:00 Test Item Value Reference Range Interpretation Comments UA Hy[employer] Cast 6-10 (04/08/18 See_Comment [Automated me ssage] (test code = UA 12:20 AM) The system w [facility] [employer]) generated this result transmitted ref erence range: <=2. The reference range was not used to int erpret this result as normal/abnormal . [facility]ly [facility] AND [id number] 05:20:00 Test Item Value Reference Range Interpretation Comments UA Coarse Gran (test code = UA 6-10 /LPF Coarse Gran) Formerly [facility] AND [id number] 05:20:00 Test Item Value Reference Range Interpretation Comments UA Color (test code = Yellow *NA*(04/08/18 UA Color) 12:20 AM) Formerly [facility] AND [id number] 05:20:00 Test Item Value Reference Range Interpretation Comments UA Glucose (test code Negative (04/08/18 12:20 = UA Glucose) AM) Formerly [facility] AND [id number] 05:20:00 Test Item Value Reference Range Interpretation Comments UA Protein (test code = UA Protein) 30 mg/dL [facility] AND [id number] 05:20:00 Test Item Value Reference Range Interpretation Comments UA pH (test code = UA pH) 5.5 1 5.0-8.0 [facility] AND [id number] 05:20:00 Test Item Value Reference Range Interpretation Comments UA Spec Grav (test code = UA Spec 1.025 1 Grav) Formerly [facility] AND [id number] 05:20:00 Test Item Value Reference Range Interpretation Comments UA Turbidity (test code Slight Cloudy = UA Turbidity) (04/08/18 12:20 AM) Formerly [facility] AND [id number] 05:20:00 Test Item Value Reference Range Interpretation Comments UA Nitrite (test code Negative (04/08/18 12:20 = UA Nitrite) AM) Formerly [facility] AND [id number] 05:20:00 Test Item Value Reference Range Interpretation Comments UA Urobilinogen (test code = UA 0.2 0.1-1.0 Urobilinogen) Formerly [facility] AND [id number] 05:20:00 Test Item Value Reference Range Interpretation Comments UA Blood (test code = Large *ABN*(04/08/18 UA Blood) 12:20 AM) [facility]ly [facility] AND [id number] 05:20:00 Test Item Value Reference Range Interpretation Comments UA Bili (test code = Negative *NA*(04/08/18 UA Bili) 12:20 AM) [facility]ly [facility] AND [id number] 05:20:00 Test Item Value Reference Range Interpretation Comments UA Ketones (test code Negative *NA*(04/08/18 = UA Ketones) 12:20 AM) Formerly [facility] AND [id number] 05:20:00 Test Item Value Reference Range Interpretation Comments UA Bacteria (test code = UA Few /HPF Bacteria) Formerly [facility] AND [id number] 05:20:00 Test Item Value Reference Range Interpretation Comments UA RBC (test code 21-50 /HPF See_Comment [Automate d message] The = UA RBC) system which ge nerated this result tra nsmitted reference range : <=2. The reference range was not used to interpr et this result as normal/abnormal . [facility]ly [facility] AND [id number] 05:20:00 Test Item Value Reference Range Interpretation Comments UA WBC (test code = UA WBC) 1-3 [facility]ly [facility] AND [id number] 05:20:00 Test Item Value Reference Range Interpretation Comments UA Sq Epi (test code = UA Sq Occasional /LPF Epi) Formerly [facility] AND [id number] 05:20:00 Test Item Value Reference Range Interpretation Comments UA Leuk Est (test Negative (04/08/18 12:20 code = UA Leuk Est) AM) [facility]ly [facility] AND [id number] 05:20:00 Test Item Value Reference Range Interpretation Comments UA Hyal Cast 6-10 (04/08/18 See_Comment [Automated me ssage] (test code = UA 12:20 AM) The system w hich [employer]) generated this result transmitted ref erence range: <=2. The reference range was not used to int erpret this result as normal/abnormal . [facility]ly [facility] AND [id number] 05:20:00 Test Item Value Reference Range Interpretation Comments UA Coarse Gran (test code = UA 6-10 /LPF Coarse Gran) Formerly [facility] AND [id number] 05:20:00 Test Item Value Reference Range Interpretation Comments UA Color (test code = Yellow *NA*(04/08/18 UA Color) 12:20 AM) [facility] AND [id number] 05:20:00 Test Item Value Reference Range Interpretation Comments UA Glucose (test code Negative (04/08/18 12:20 = UA Glucose) AM) [facility]ly [facility] AND [id number] 05:20:00 Test Item Value Reference Range Interpretation Comments UA Protein (test code = UA Protein) 30 mg/dL [facility] AND [id number] 05:20:00 Test Item Value Reference Range Interpretation Comments UA pH (test code = UA pH) 5.5 1 5.0-8.0 [facility] AND [id number] 05:20:00 Test Item Value Reference Range Interpretation Comments UA Spec Grav (test code = UA Spec 1.025 1 Grav) [facility] AND [id number] 05:20:00 Test Item Value Reference Range Interpretation Comments UA Turbidity (test code Slight Cloudy = UA Turbidity) (04/08/18 12:20 AM) [facility] AND [id number] 05:20:00 Test Item Value Reference Range Interpretation Comments UA Nitrite (test code Negative (04/08/18 12:20 = UA Nitrite) AM) [facility]ly [facility] AND [id number] 05:20:00 Test Item Value Reference Range Interpretation Comments UA Urobilinogen (test code = UA 0.2 0.1-1.0 Urobilinogen) Formerly [facility] AND [id number] 05:20:00 Test Item Value Reference Range Interpretation Comments UA Blood (test code = Large *ABN*(04/08/18 UA Blood) 12:20 AM) [facility] AND [id number] 05:20:00 Test Item Value Reference Range Interpretation Comments UA Bili (test code = Negative *NA*(04/08/18 UA Bili) 12:20 AM) [facility] [id number] 05:20:00 Test Item Value Reference Range Interpretation Comments UA Ketones (test code Negative *NA*(04/08/18 = UA Ketones) 12:20 AM) [facility] AND [id number] 05:20:00 Test Item Value Reference Range Interpretation Comments UA Bacteria (test code = UA Few /HPF Bacteria) [facility] AND [id number] 05:20:00 Test Item Value Reference Range Interpretation Comments UA RBC (test code 21-50 /HPF See_Comment [Automate d message] The = UA RBC) system which ge nerated this result tra nsmitted reference range : <=2. The reference range was not used to interpr et this result as normal/abnormal . [facility]ly [facility] AND [id number] 05:20:00 Test Item Value Reference Range Interpretation Comments UA WBC (test code = UA WBC) 1-3 [facility]ly [facility] AND [id number] 05:20:00 Test Item Value Reference Range Interpretation Comments UA Sq Epi (test code = UA Sq Occasional /LPF Epi) [facility] AND [id number] 05:20:00 Test Item Value Reference Range Interpretation Comments UA Leuk Est (test Negative (04/08/18 12:20 code = UA Leuk Est) AM) [facility] [employer] [id number] 04:50:00 Test Item Value Reference Range Interpretation Comments Antibody Scrn (test Negative (04/07/18 code = Antibody Scrn) 11:50 PM) [facility] [employer] [id number] 04:50:00 Test Item Value Reference Range Interpretation Comments ABO/Rh (test code = ABO/Rh) A POS [facility] [employer] [id number] 04:50:00 Test Item Value Reference Range Interpretation Comments Antibody Scrn (test Negative (04/07/18 code = Antibody Scrn) 11:50 PM) [facility] [employer] [id number] 04:50:00 Test Item Value Reference Range Interpretation Comments ABO/Rh (test code = ABO/Rh) A POS [facility] [employer] [id number] 04:50:00 Test Item Value Reference Range Interpretation Comments Antibody Scrn (test Negative (04/07/18 code = Antibody Scrn) 11:50 PM) [facility] [employer] [id number] 04:50:00 Test Item Value Reference Range Interpretation Comments ABO/Rh (test code = ABO/Rh) A POS [facility]2018-07-13 04:41:48 Test Item Value Reference Range Interpretation Comments Lactic Acid Lvl (test code = Lactic 0.8 0.5-2.2 Acid Lvl) [facility]2018-07-13 04:41:48 Test Item Value Reference Range Interpretation Comments Total Protein (test code = Total 7.0 6.4-8.4 Protein) [facility]2018-07-13 04:41:48 Test Item Value Reference Range Interpretation Comments Albumin Lvl (test code = Albumin Lvl) 3.7 3.5-5.0 [facility]2018-07-13 04:41:48 Test Item Value Reference Range Interpretation Comments ALT (test code = ALT) 46 See_Comment [Auto mated message] The system which ge nerated this result transmit karla reference range : <=65. The reference range was not used to interpr et this result as parul l/abnormal. [facility]2018-07-13 04:41:48 Test Item Value Reference Range Interpretation Comments AST (test code = AST) 60 See_Comment [Auto mated message] The system which ge nerated this result transmit karla reference range : <=37. The reference range was not used to interpr et this result as parul l/abnormal. [facility]2018-07-13 04:41:48 Test Item Value Reference Range Interpretation Comments Alk Phos (test code = Alk Phos) 65 39-136 [facility]2018-07-13 04:41:48 Test Item Value Reference Range Interpretation Comments Bili Total (test code = Bili Total) 0.7 0.2-1.3 [facility]2018-07-13 04:41:48 Test Item Value Reference Range Interpretation Comments Bili Indirect (test 0.6 See_Comment [Automa karla message] The code = Bili Indirect) system which generated this result tra nsmitted reference range : <=1.0. The reference r renu was not used to int erpret this result as normal/abnormal . [facility]2018-07-13 04:41:48 Test Item Value Reference Range Interpretation Comments Bili Direct (test code 0.1 See_Comment [Aut omated message] The = Bili Direct) system which generated this result tra nsmitted reference range : <=0.3. The reference r renu was not used to int erpret this result as parul l/abnormal. [facility]2018-07-13 04:41:48 Test Item Value Reference Range Interpretation Comments A/G Ratio (test code = A/G Ratio) 1.1 1 0.7-1.6 [facility]2018-07-13 04:41:48 Test Item Value Reference Range Interpretation Comments Globulin (test code = Globulin) 3.3 2.7-4.2 [id number] 04:41:48 Test Item Value Reference Range Interpretation Comments PTT (test code = PTT) 29.3 s 22.9-35.8 [id number] 04:41:48 Test Item Value Reference Range Interpretation Comments INR (test code = INR) 1.19 1 0.85-1.17 [id number] 04:41:48 Test Item Value Reference Range Interpretation Comments PT (test code = PT) 15.2 s 12.0-14.7 [id number] 04:41:48 Test Item Value Reference Range Interpretation Comments Estimated % Lysis Rapid 1.1 See_Comment [Au tomated message] The (test code = Estimated syste m which generated % Lysis Rapid) this result t ransmitted reference range : <=7.5. The reference r renu was not used to int erpret this result as normal/abnormal . [id number] 04:41:48 Test Item Value Reference Range Interpretation Comments ACT (TEG) Rapid (test code = ACT (TEG) 97 s 86-118 Rapid) [id number] 04:41:48 Test Item Value Reference Range Interpretation Comments G-value Rapid (test code = G-value 8.1 5.0-11.6 Rapid) [id number] 04:41:48 Test Item Value Reference Range Interpretation Comments Split Point Rapid (test code = Split 0.4 min Point Rapid) [id number] 04:41:48 Test Item Value Reference Range Interpretation Comments R-time Rapid (test code = R-time 0.5 min 0.4-0.7 Rapid) [id number] 04:41:48 Test Item Value Reference Range Interpretation Comments Angle Rapid (test code = Angle 76 degrees 64-80 Rapid) [facility]valeNrczchtLZSOSPAETQ2396-05-38 04:41:48 Test Item Value Reference Range Interpretation Comments Max Amplitude Rapid (test code = Max 62 mm 52-71 Amplitude Rapid) [id number] 04:41:48 Test Item Value Reference Range Interpretation Comments K-time Rapid (test code = K-time 1.2 min 0.6-2.3 Rapid) [place] [id number] 04:41:48 Test Item Value Reference Range Interpretation Comments Etoh (%) (test code = Etoh (%)) no gt [place] [id number] 04:41:48 Test Item Value Reference Range Interpretation Comments Ethanol Lvl (test code = Ethanol Lvl) no gt [facility]2018-07-13 04:41:48 Test Item Value Reference Range Interpretation Comments Lactic Acid Lvl (test code = Lactic 0.8 0.5-2.2 Acid Lvl) [facility]2018-07-13 04:41:48 Test Item Value Reference Range Interpretation Comments Total Protein (test code = Total 7.0 6.4-8.4 Protein) [facility]2018-07-13 04:41:48 Test Item Value Reference Range Interpretation Comments Albumin Lvl (test code = Albumin Lvl) 3.7 3.5-5.0 [facility]2018-07-13 04:41:48 Test Item Value Reference Range Interpretation Comments ALT (test code = ALT) 46 See_Comment [Auto mated message] The system which ge nerated this result transmit karla reference range : <=65. The reference range was not used to interpr et this result as parul l/abnormal. [facility]2018-07-13 04:41:48 Test Item Value Reference Range Interpretation Comments AST (test code = AST) 60 See_Comment [Auto mated message] The system which ge nerated this result transmit karla reference range : <=37. The reference range was not used to interpr et this result as parul l/abnormal. [place] [id number] 04:41:48 Test Item Value Reference Range Interpretation Comments Alk Phos (test code = Alk Phos) 65 39-136 [facility]2018-07-13 04:41:48 Test Item Value Reference Range Interpretation Comments Bili Total (test code = Bili Total) 0.7 0.2-1.3 [facility]2018-07-13 04:41:48 Test Item Value Reference Range Interpretation Comments Bili Indirect (test 0.6 See_Comment [Automa karla message] The code = Bili Indirect) system which generated this result tra nsmitted reference range : <=1.0. The reference r renu was not used to int erpret this result as normal/abnormal . [facility]2018-07-13 04:41:48 Test Item Value Reference Range Interpretation Comments Bili Direct (test code 0.1 See_Comment [Aut omated message] The = Bili Direct) system which generated this result tra nsmitted reference range : <=0.3. The reference r renu was not used to int erpret this result as parul l/abnormal. [facility]2018-07-13 04:41:48 Test Item Value Reference Range Interpretation Comments A/G Ratio (test code = A/G Ratio) 1.1 1 0.7-1.6 [facility]2018-07-13 04:41:48 Test Item Value Reference Range Interpretation Comments Globulin (test code = Globulin) 3.3 2.7-4.2 [id number] 04:41:48 Test Item Value Reference Range Interpretation Comments PTT (test code = PTT) 29.3 s 22.9-35.8 [id number] 04:41:48 Test Item Value Reference Range Interpretation Comments INR (test code = INR) 1.19 1 0.85-1.17 [facility]valeSxgqnffWACCBKHZXN0766-27-97 04:41:48 Test Item Value Reference Range Interpretation Comments PT (test code = PT) 15.2 s 12.0-14.7 [facility]valeBpzsxvgYIHIWZKDES2410-08-62 04:41:48 Test Item Value Reference Range Interpretation Comments Estimated % Lysis Rapid 1.1 See_Comment [Au tomated message] The (test code = Estimated syste m which generated % Lysis Rapid) this result t ransmitted reference range : <=7.5. The reference r renu was not used to int erpret this result as normal/abnormal . [facility] [id number] 04:41:48 Test Item Value Reference Range Interpretation Comments ACT (TEG) Rapid (test code = ACT (TEG) 97 s 86-118 Rapid) [facility]va[id number] 04:41:48 Test Item Value Reference Range Interpretation Comments G-value Rapid (test code = G-value 8.1 5.0-11.6 Rapid) [facility]valeWpqnhauAKEHEBJYMH1390-22-90 04:41:48 Test Item Value Reference Range Interpretation Comments Split Point Rapid (test code = Split 0.4 min Point Rapid) [facility]valeWfltrqeAZMKJBHKEE8396-58-94 04:41:48 Test Item Value Reference Range Interpretation Comments R-time Rapid (test code = R-time 0.5 min 0.4-0.7 Rapid) [facility] SunnyvaleYwvoaysDIFAKCPZZZ1505-28-19 04:41:48 Test Item Value Reference Range Interpretation Comments Angle Rapid (test code = Angle 76 degrees 64-80 Rapid) [facility] SunnyvaleXonvwgcTNMKEEAPHC9400-54-54 04:41:48 Test Item Value Reference Range Interpretation Comments Max Amplitude Rapid (test code = Max 62 mm 52-71 Amplitude Rapid) [facility] SunnyvaleKoarpajNDGMNWRXOD7662-47-14 04:41:48 Test Item Value Reference Range Interpretation Comments K-time Rapid (test code = K-time 1.2 min 0.6-2.3 Rapid) [facility]woodJdzrrpnBPCHLHQSRO8798-51-92 04:41:48 Test Item Value Reference Range Interpretation Comments Etoh (%) (test code = Etoh (%)) no gt [facility] BrownwoodBymvendZCJGDWEZIF3748-07-44 04:41:48 Test Item Value Reference Range Interpretation Comments Ethanol Lvl (test code = Ethanol Lvl) no gt [facility] BrownwoodCHEM [id number] 04:41:48 Test Item Value Reference Range Interpretation Comments Lactic Acid Lvl (test code = Lactic 0.8 0.5-2.2 Acid Lvl) [facility]2018-07-13 04:41:48 Test Item Value Reference Range Interpretation Comments Total Protein (test code = Total 7.0 6.4-8.4 Protein) [facility]2018-07-13 04:41:48 Test Item Value Reference Range Interpretation Comments Albumin Lvl (test code = Albumin Lvl) 3.7 3.5-5.0 [place] [id number] 04:41:48 Test Item Value Reference Range Interpretation Comments ALT (test code = ALT) 46 See_Comment [Auto mated message] The system which ge nerated this result transmit karla reference range : <=65. The reference range was not used to interpr et this result as parul l/abnormal. [place] 305168-07-13 04:41:48 Test Item Value Reference Range Interpretation Comments AST (test code = AST) 60 See_Comment [Auto mated message] The system which ge nerated this result transmit karla reference range : <=37. The reference range was not used to interpr et this result as parul l/abnormal. [facility]2018-07-13 04:41:48 Test Item Value Reference Range Interpretation Comments Alk Phos (test code = Alk Phos) 65 39-136 [place] 305168-07-13 04:41:48 Test Item Value Reference Range Interpretation Comments Bili Total (test code = Bili Total) 0.7 0.2-1.3 [place] 305168-07-13 04:41:48 Test Item Value Reference Range Interpretation Comments Bili Indirect (test 0.6 See_Comment [Automa karla message] The code = Bili Indirect) system which generated this result tra nsmitted reference range : <=1.0. The reference r renu was not used to int erpret this result as normal/abnormal . [place] 305168-07-13 04:41:48 Test Item Value Reference Range Interpretation Comments Bili Direct (test code 0.1 See_Comment [Aut omated message] The = Bili Direct) system which generated this result tra nsmitted reference range : <=0.3. The reference r renu was not used to int erpret this result as parul l/abnormal. [facility]2018-07-13 04:41:48 Test Item Value Reference Range Interpretation Comments A/G Ratio (test code = A/G Ratio) 1.1 1 0.7-1.6 [facility]2018-07-13 04:41:48 Test Item Value Reference Range Interpretation Comments Globulin (test code = Globulin) 3.3 2.7-4.2 [id number] 04:41:48 Test Item Value Reference Range Interpretation Comments PTT (test code = PTT) 29.3 s 22.9-35.8 [id number] 04:41:48 Test Item Value Reference Range Interpretation Comments INR (test code = INR) 1.19 1 0.85-1.17 [id number] 04:41:48 Test Item Value Reference Range Interpretation Comments PT (test code = PT) 15.2 s 12.0-14.7 [id number] 04:41:48 Test Item Value Reference Range Interpretation Comments Estimated % Lysis Rapid 1.1 See_Comment [Au tomated message] The (test code = Estimated syste m which generated % Lysis Rapid) this result t ransmitted reference range : <=7.5. The reference r renu was not used to int erpret this result as normal/abnormal . [id number] 04:41:48 Test Item Value Reference Range Interpretation Comments ACT (TEG) Rapid (test code = ACT (TEG) 97 s 86-118 Rapid) [id number] 04:41:48 Test Item Value Reference Range Interpretation Comments G-value Rapid (test code = G-value 8.1 5.0-11.6 Rapid) [id number] 04:41:48 Test Item Value Reference Range Interpretation Comments Split Point Rapid (test code = Split 0.4 min Point Rapid) [id number] 04:41:48 Test Item Value Reference Range Interpretation Comments R-time Rapid (test code = R-time 0.5 min 0.4-0.7 Rapid) [id number] 04:41:48 Test Item Value Reference Range Interpretation Comments Angle Rapid (test code = Angle 76 degrees 64-80 Rapid) [id number] 04:41:48 Test Item Value Reference Range Interpretation Comments Max Amplitude Rapid (test code = Max 62 mm 52-71 Amplitude Rapid) [id number] 04:41:48 Test Item Value Reference Range Interpretation Comments K-time Rapid (test code = K-time 1.2 min 0.6-2.3 Rapid) [place] [id number] 04:41:48 Test Item Value Reference Range Interpretation Comments Etoh (%) (test code = Etoh (%)) no gt [place] [id number] 04:41:48 Test Item Value Reference Range Interpretation Comments Ethanol Lvl (test code = Ethanol Lvl) no gt [facility]
[2022-09-20] MEDS ORDERED: NA CHLORIDE 0.9% 250 ML ONE (17:59)
[2022-09-20] MEDS ORDERED: ACETAMINOPHEN 325 MG TABLET ONE (17:59)
[2022-09-20 18:10] LABS: Protime INR 0.98
[2022-09-20 18:12] LABS: Absolute Lymphocytes (CBC) 0.6 K/uL (0.7-4.9); Hematocrit 37.2 % (39.6-49.0); Lymphocytes % 12.2 % (15.3-44.8); MPV 8.9 fL (7.6-11.3); RBC Red Blood Cell Count 3.92 M/uL (4.33-5.43)
--- NOTE | 2022-09-20 18:28 | RAD REPORT ---
EXAM DESCRIPTION: RAD - Chest Single View - 09/20/2022 6:14 pm CLINICAL HISTORY: covid positive Chest pain. COMPARISON: Chest Single View dated 09/05/2021; Chest Pa And Lat (2 Views) dated 12/28/2018; Chest Sin gle View dated 12/26/2018; Chest Single View dated 04/07/2018 FINDINGS: Portable technique limits examination quality. Moderate patchy opacity in the left lung base likely represents a combination infiltrate/ pneumonia p leural fluid. Mild interstitial pulmonary edema seen. The heart is mildly enlarged in size. Sternotom y wires present.
[2022-09-20 18:31] LABS: Albumin 3.2 g/dL (3.4-5.0); Bilirubin Direct 0.2 mg/dL (0-0.2); Bilirubin Total 0.4 mg/dL (0.2-1.0); Magnesium 2.2 mg/dL (1.6-2.4); Protein, Total 6.8 g/dL (6.4-8.2); Troponin High Sensitivity 13.8 pg/mL (<58.9)
[2022-09-20 18:38] LABS: Urine Blood Negative (Negative); Urine Glucose Negative (Negative); Urine Protein Negative (Negative)
[2022-09-20 18:46] LABS: Urine Bacteria None Seen /HPF (<20); Urine Mucus Slight /HPF (None Seen); Urine RBC <5 /HPF (None Seen)
[2022-09-20 18:55] LABS: SARS-COV-2 RT PCR POSITIVE (NEGATIVE)
--- NOTE | 2022-09-20 19:21 | RAD REPORT ---
EXAM DESCRIPTION: CT - Head Brain Wo Cont - 09/20/2022 6:43 pm CLINICAL HISTORY: headache Headache, drowsiness COMPARISON: Head Brain Wo Cont dated 06/30/2018Head Brain Wo Cont dated 06/30/2018; Head C Spine Mpr W o Con dated 07/10/2020 TECHNIQUE: All CT scans are performed using dose optimization technique as appropriate and may inclu de automated exposure control or mA/KV adjustment according to patient size. 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 The paranasal sinuses and mastoids are clear. The calvarium is intact. IMPRESSION: No acute intracranial abnormality.
--- NOTE | 2022-09-20 19:23 | RAD REPORT ---
EXAM DESCRIPTION: CT - Abdomen Pelvis Wo Contrast - 09/20/2022 6:43 pm CLINICAL HISTORY: Abdominal pain. diarrhea COMPARISON: No comparisons TECHNIQUE: CT imaging of the abdomen and pelvis was performed without contrast. Solid organ, bowel a nd vascular assessment is limited due to lack of IV and oral contrast. All CT scans are performed using dose optimization technique as appropriate and may include automated exposure control or mA/KV adjustment according to patient size. FINDINGS: Mild linear atelectasis is present in the left lung base. Cholecystectomy. The liver contains a 3.7 cm cyst.No aggressive liver lesion or biliary dilatation sm all hiatal hernia. The spleen, pancreas, adrenal glands and kidneys are within normal limits. Atheros clerosis of the abdominal aorta is present. 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 No bowel obstruction, free air, free fluid or abscess. Mild sigmoid diverticulosis. The appendix is n ormal. Moderate to large bilateral inguinal hernias, greater on the right. The osseous structures are within normal limits. IMPRESSION: No acute intra-abdominal or pelvic findings. A limited non-contrast examination was performed as detailed.
[2022-09-20] MEDS ORDERED: NA CHLORIDE 0.9% 50 ML IV ONE (19:41)
[2022-09-20] MEDS ORDERED: CEFTRIAXONE 1000 MG/VIAL ONE (19:41)
--- NOTE | 2022-09-20 20:04 | EDPHYS ---
Physician Documentation [facility] Name: Octavio Bueno Age: 76 yrs Sex: Male : 1945 Arrival Date: 09/20/2022 Time: 16:49 Bed 18 Private MD: ED Physician Steven Esquivel HPI: 09/20 17:15 This 76 yrs old Male presents to ER via EMS with complaints of Headache. cp 17:15 The patient complains of pain to the top of head and forehead. The patient describes cp the headache as aching, constant. Onset: The symptoms/episode began/occurred gradually, today. 17:15 Associated signs and symptoms: Pertinent positives: nausea, diarrhea. cp Historical: - Allergies: 17:04 Rapamune; ko1 - PMHx: 17:04 BILE DUCT CANCER; Chronic kidney disease stage V; Diabetes - IDDM; Gout; ko1 Hyperlipidemia; Hypertension; Migraines r/t head injury; Myocardial infarction; - PSHx: 17:04 Cholecystectomy; Heart transplant; hernia; ko1 - Immunization history:: Adult Immunizations up to date. - Social history:: Smoking status: Patient denies any tobacco usage or history of. ROS: 17:20 Constitutional: Positive for poor PO intake, Negative for fever. cp 17:20 Eyes: Negative for injury, pain, redness, and discharge. cp 17:20 ENT: Negative for drainage from ear(s), ear pain, difficulty swallowing, difficulty handling secretions. 17:20 Cardiovascular: Negative for chest pain. 17:20 Respiratory: Positive for cough, Negative for shortness of breath, wheezing. 17:20 Abdomen/GI: Positive for diarrhea, Negative for constipation, black/tarry stool, rectal bleeding. 17:20 Neuro: Positive for headache, weakness, Negative for altered mental status, loss of consciousness, syncope. 17:20 All other systems are negative. Exam: 17:23 ECG was reviewed by the Attending Physician. cp 17:25 Constitutional: The patient appears in no acute distress, alert, awake, cp non-diaphoretic, non-toxic, well developed, well nourished. 17:25 Head/Face: Normocephalic, atraumatic. cp 17:25 Eyes: Periorbital structures: appear normal, Pupils: equal, round, and reactive to light and accomodation, Extraocular movements: intact throughout, Conjunctiva: normal, no exudate, no injection, Sclera: no appreciated abnormality, Lids and lashes: appear normal, bilaterally. 17:25 ENT: External ear(s): are unremarkable, Ear canal(s): are normal, clear, TM's: dullness, bilaterally, Nose: is normal, Mouth: Lips: moist, Oral mucosa: moist, Posterior pharynx: Airway: no evidence of obstruction, patent, Tonsils: no enlargement, no exudate, erythema, that is mild, exudate, is not appreciated. 17:25 Neck: ROM/movement: is normal, is supple, without pain, no range of motions limitations, no meningismus. 17:25 Chest/axilla: Inspection: normal, Palpation: is normal, no crepitus, no tenderness. 17:25 Cardiovascular: Rate: normal, Rhythm: regular, Edema: is not appreciated, JVD: is not appreciated. 17:25 Respiratory: the patient does not display signs of respiratory distress, Respirations: normal, no use of accessory muscles, no retractions, labored breathing, is not present, Breath sounds: are clear throughout, no decreased breath sounds, no stridor, no wheezing. 17:25 Abdomen/GI: Inspection: abdomen appears normal, Bowel sounds: active, all quadrants, Palpation: soft, in all quadrants, mild abdominal tenderness, in all quadrants. 17:25 Neuro: Orientation: to person, place \T\ time. Mentation: is normal, Cerebellar function: is grossly normal, Motor: moves all fours, general weakness with no focal deficits, Sensation: is normal. Vital Signs: 16:58 BP 141 / 71; Pulse 92; Resp 18; Temp 98.8(O); Pulse Ox 98% on R/A; Weight 82.51 kg (R); ko1 Height 5 ft. 9 in. (175.26 cm) (R); Pain 8/10; 17:30 BP 115 / 74; Pulse 73; Pulse Ox 94% on 2 lpm NC; ko1 18:00 BP 141 / 70; Pulse 73; Pulse Ox 97% on R/A; ko1 19:00 BP 123 / 79; Pulse 70; Resp 20; Temp 98.2; Pulse Ox 98% on 2 lpm NC; Pain 5/10; pf1 20:00 BP 131 / 79; Pulse 80; Resp 20; Pulse Ox 96% on 2 lpm NC; Pain 5/10; pf1 16:58 Body Mass Index 26.86 (82.51 kg, 175.26 cm) ko1 MDM: 17:08 Patient medically screened. [facility] 19:33 Data reviewed: vital signs, nurses notes, lab test result(s), EKG, radiologic studies, cp CT scan, plain films. 19:33 Test interpretation: by ED physician or midlevel provider: ECG, plain radiologic cp studies. 20:20 Physician consultation: was contacted at 20:20, regarding regarding transfer, to [facility]. patient's condition, accepting physician will be DR Clements. 09/20 17:08 Order name: COVID-19/FLU A+B; Complete Time: 19:00 09/20 19:00 Interpretation: Abnormal: SARSCOV2 RT PCR POSITIVE. 09/20 17:08 Order name: Basic Metabolic Panel; Complete Time: 19:00 09/20 19:01 Interpretation: Normal except: NA 133; CL 93; CO2 33; GLUC 169; BUN 76; CRE 2.65; GFR cp 24. 09/20 17:08 Order name: CBC with Diff; Complete Time: 18:26 09/20 18:26 Interpretation: Normal except: RBC 3.92; HGB 12.6; HCT 37.2; PLT 107; WILIAN% 79.1; LYM% cp 12.2; LYMA 0.6. 09/20 17:08 Order name: LFT's; Complete Time: 19:00 09/20 17:08 Order name: Magnesium; Complete Time: 19:00 09/20 17:08 Order name: NT PRO-BNP; Complete Time: 19:00 09/20 19:09 Interpretation: Abnormal: NT PRO-BNP 1322. 09/20 17:08 Order name: PT-INR; Complete Time: 18:26 09/20 17:08 Order name: Troponin HS; Complete Time: 19:00 09/20 17:08 Order name: XRAY Chest (1 view); Complete Time: 19:00 09/20 17:08 Order name: Urine Microscopic Only; Complete Time: 19:00 09/20 18:38 Order name: Urine Dipstick-Ancillary; Complete Time: 19:00 EDMS 09/20 19:32 Order name: Lactate w/ 2H reflex if indic. cp 09/20 19:32 Order name: Blood Culture Adult (2) cp 09/20 19:32 Order name: Procalcitonin cp 09/20 17:08 Order name: EKG; Complete Time: 17:09 cp 09/20 17:08 Order name: Cardiac monitoring; Complete Time: 17:24 09/20 17:08 Order name: EKG - Nurse/Tech; Complete Time: 17:24 09/20 17:08 Order name: IV Saline Lock; Complete Time: 17:54 cp 09/20 17:08 Order name: Labs collected and sent; Complete Time: 17:54 cp 09/20 17:08 Order name: O2 Per Protocol; Complete Time: 17:24 cp 09/20 17:08 Order name: O2 Sat Monitoring; Complete Time: 17:24 cp 09/20 17:08 Order name: Urine Dipstick-Ancillary (obtain specimen) 09/20 17:14 Order name: CT Head Brain wo Cont cp 09/20 17:18 Order name: Head Brain Wo Cont; Complete Time: 19:29 EDMS 09/20 18:35 Order name: Abdomen ; Complete Time: 19:29 EDMS EC:23 Rate is 76 beats/min. Rhythm is regular. WA interval is normal. QRS interval is normal. cp QT interval is normal. Interpreted by me. Reviewed by me. Administered Medications: 18:00 Drug: NS 0.9% 250 ml Route: IV; Rate: bolus; Site: right antecubital; ko1 18:00 Drug: Tylenol 650 mg Route: PO; ko1 21:05 Drug: Rocephin - (cefTRIAXone) 1 grams Route: IVPB; Infused Over: 30 mins; Site: right pf1 antecubital; 21:31 Drug: fentaNYL (PF) 25 mcg Route: IVP; Site: right antecubital; pf1 Disposition Summary: 09/20/22 20:04 Transfer Ordered Transfer Location: [facility] cp Reason: Higher level of care cp Condition: Stable cp Problem: new cp Symptoms: have improved cp Accepting Physician: DR Mary Kay Clements(09/20/22 22:05) pf1 Diagnosis - Diarrhea, unspecified cp - Unspecified kidney failure cp - Pneumonia due to other specified infectious organisms cp - Pneumonia due to SARS-associated coronavirus cp Forms: - Medication Reconciliation Form cp - SBAR form cp Signatures: Dispatcher [employer] EDMS Steven Esquivel MD MD cha Page, Corey, PA PA cp Oliver, Kathy, RN RN ko1 Chiquita chen, RN RN pf1 Corrections: (The following items were deleted from the chart) 18:35 17:20 Abdomen Pelvis W Con+CT.RAD.BRZ ordered. EDCO EDMS 20:48 20:04 Doctor cp cp 22:05 20:48 DR Mary Kay Clements cp pf1 09/21 00:38 09/20 17:15 Onset: The symptoms/episode began/occurred today, cp cp
--- NOTE | 2022-09-20 20:04 | ER ---
Nurse's Notes [facility] Name: Octavio Bueno Age: 76 yrs Sex: Male : 1945 Arrival Date: 09/20/2022 Time: 16:49 Bed 18 Private MD: Diagnosis: Diarrhea, unspecified;Unspecified kidney failure;Pneumonia due to other specified infectious organisms;Pneumonia due to SARS-associated coronavirus Presentation: 09/20 16:58 Chief complaint: EMS states: patient called for headache, he tested positive with a ko1 home covid test but has no symptoms other than the headache, it goes across the forehead and to bilateral ears. Patient stated he quit taking his blood pressure med 2 days ago, cold turkey because his blood pressure was running low. Coronavirus screen: Client denies travel out of the [place] in the last 14 days. At this time, the client does not indicate any symptoms associated with coronavirus-19. Client reports previous positive COVID test result. Date of collection: September 19, 2022 per home test Ebola Screen: No symptoms or risks identified at this time. Initial Sepsis Screen: Does the patient meet any 2 criteria? No. Patient's initial sepsis screen is negative. Does the patient have a suspected source of infection? No. Patient's initial sepsis screen is negative. Risk Assessment: Do you want to hurt yourself or someone else? Patient reports no desire to harm self or others. Onset of symptoms was September 20, 2022. 16:58 Method Of Arrival: EMS: [facility] ko1 16:58 Acuity: YAHIR 3 ko1 Triage Assessment: 17:04 General: Appears in no apparent distress. ill, Behavior is calm, cooperative, ko1 appropriate for age. Pain: Complains of pain in forehead, right ear, left ear, right yarsanism and left yarsanism. Historical: - Allergies: 17:04 Rapamune; ko1 - PMHx: 17:04 BILE DUCT CANCER; Chronic kidney disease stage V; Diabetes - IDDM; Gout; ko1 Hyperlipidemia; Hypertension; Migraines r/t head injury; Myocardial infarction; - PSHx: 17:04 Cholecystectomy; Heart transplant; hernia; ko1 - Immunization history:: Adult Immunizations up to date. - Social history:: Smoking status: Patient denies any tobacco usage or history of. Screenin:15 [facility] ED Fall Risk Assessment (Adult) History of falling in the last 3 months, ko1 including since admission No falls in past 3 months (0 pts) Confusion or Disorientation No (0 pts) Intoxicated or Sedated No (0 pts) Impaired Gait No (0 pts) Mobility Assist Device Used No (0 pt) Altered Elimination No (0 pt) Score/Fall Risk Level 0 - 2 = Low Risk Oriented to surroundings, Maintained a safe environment, Educated pt \T\ family on fall prevention, incl call for assistance when getting out of bed, Assessed \T\ reinforced patient's understanding of fall precautions, Provided non-skid footwear, Hourly rounding (assess needs \T\ fall precautionary measures) done, Used ambulatory aids as needed (educated on \T\ assisted with), Used gait belt as appropriate. Abuse screen: Denies threats or abuse. Denies injuries from another. Nutritional screening: No deficits noted. Tuberculosis screening: No symptoms or risk factors identified. Assessment: 17:15 General: Appears in no apparent distress. comfortable, Behavior is calm, cooperative, ko1 appropriate for age. Pain: Complains of pain in face and left yarsanism and right yarsanism and left ear and right ear and forehead. Neuro: No deficits noted. Cardiovascular: No deficits noted. Respiratory: Reports cough that is non-productive. GI: Reports diarrhea. : No deficits noted. EENT: No deficits noted. Derm: No deficits noted. Musculoskeletal: No deficits noted. 19:15 General: Appears in no apparent distress. comfortable, well groomed, well developed, pf1 Behavior is calm, cooperative, appropriate for age, quiet. 19:15 Pain: Complains of pain in forehead Pain currently is 8 out of 10 on a pain scale. pf1 Neuro: Level of Consciousness is awake, alert, obeys commands, Oriented to person, place, time, situation. Cardiovascular: No deficits noted. Capillary refill < 3 seconds. Vital Signs: 16:58 BP 141 / 71; Pulse 92; Resp 18; Temp 98.8(O); Pulse Ox 98% on R/A; Weight 82.51 kg (R); ko1 Height 5 ft. 9 in. (175.26 cm) (R); Pain 8/10; 17:30 BP 115 / 74; Pulse 73; Pulse Ox 94% on 2 lpm NC; ko1 18:00 BP 141 / 70; Pulse 73; Pulse Ox 97% on R/A; ko1 19:00 BP 123 / 79; Pulse 70; Resp 20; Temp 98.2; Pulse Ox 98% on 2 lpm NC; Pain 5/10; pf1 20:00 BP 131 / 79; Pulse 80; Resp 20; Pulse Ox 96% on 2 lpm NC; Pain 5/10; pf1 16:58 Body Mass Index 26.86 (82.51 kg, 175.26 cm) ko1 ED Course: 16:49 Patient arrived in ED. ko1 16:50 Monik Perez, RN is Primary Nurse. ko1 17:04 Triage completed. ko1 17:04 Arm band placed on right wrist. ko1 17:06 Steven Hernandez PA is PHCP. cp 17:06 Steven Esquivel MD is Attending Physician. cp 17:15 Patient has correct armband on for positive identification. Placed in gown. Bed in low ko1 position. Call light in reach. Side rails up X 1. Client placed on continuous cardiac and pulse oximetry monitoring. NIBP monitoring applied. electronic device monitor on. 17:15 Inserted saline lock: 20 gauge in right antecubital area, using aseptic technique. ko1 Blood collected. Oxygen administration via nasal cannula \T\ 2L/min Response to oxygen therapy: symptoms improved. 17:43 COVID-19/FLU A+B Sent. ko1 17:54 Basic Metabolic Panel Sent. ko1 17:54 CBC with Diff Sent. ko1 17:54 LFT's Sent. ko1 17:54 Magnesium Sent. ko1 17:54 NT PRO-BNP Sent. ko1 17:54 PT-INR Sent. ko1 17:54 Troponin HS Sent. ko1 18:15 XRAY Chest (1 view) In Process Unspecified. EDMS 18:45 Head Brain Wo Cont In Process Unspecified. EDMS 18:45 Abdomen In Process Unspecified. EDMS 19:59 Initiated transfer to [facility]. wm 20:00 No provider procedures requiring assistance completed. pf1 20:44 Pt accepted for transfer to [facility], RM: [id number], by Tyree Wilde. wm 21:18 Blood Culture Adult (2) Sent. pf1 22:05 Patient transferred, IV remains in place. pf1 Administered Medications: 18:00 Drug: NS 0.9% 250 ml Route: IV; Rate: bolus; Site: right antecubital; ko1 18:00 Drug: Tylenol 650 mg Route: PO; ko1 21:05 Drug: Rocephin - (cefTRIAXone) 1 grams Route: IVPB; Infused Over: 30 mins; Site: right pf1 antecubital; 21:31 Drug: fentaNYL (PF) 25 mcg Route: IVP; Site: right antecubital; pf1 Medication: 22:00 VIS not applicable for this client. pf1 Outcome: 20:04 ER care complete, transfer ordered by . cp 22:03 Transferred by ground EMS to [facility], Transfer form completed. X-rays pf1 sent w/ patient. Note: Patient report given to MELINDA Patten with [facility] 22:03 Condition: stable 22:03 Instructed on the need for transfer, Demonstrated understanding of instructions. 22:05 Patient left the ED. pf1 Signatures: Dispatcher [employer] EDMS Steven Hernandez PA PA cp Marsh, Wendy wm Oliver, Kathy, RN RN ko1 Chiquita chen RN RN pf1 Corrections: (The following items were deleted from the chart) 19:15 17:20 General: Appears distressed, uncomfortable, Behavior is cooperative, appropriate ko1 for age, anxious, Reports ko1 :15 17:20 Pain: Denies pain. ko1 ko1 :15 17:20 Neuro: No deficits noted. ko1 ko1 :15 17:20 Cardiovascular: No deficits noted. ko1 ko1 : 17:20 Respiratory: No deficits noted. ko1 ko1 :15 17:20 GI: No deficits noted. ko1 ko1 19:15 17:20 : No deficits noted. ko1 ko1 19:15 17:20 EENT: nothing visible in mouth, patient is breathing without difficulty, oxygen ko1 sats are 95% on RA, and she is talking. Reports feels like the shrimp is still stuck in my throat.. ko1 :15 17:20 Derm: No deficits noted. ko1 ko1 19:15 17:20 Musculoskeletal: No deficits noted. ko1 ko1
[2022-09-20] MEDS ORDERED: FENTANYL CITR 100 MCG/2 ML ONE (21:31)
[2022-09-20 22:17] VITALS: TEMP 98.8
[2022-09-20 22:21] VITALS: BP 141/70; O2SAT 97
--- NOTE | 2022-09-21 16:06 | EKG ---
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
== END 2022-09-20 22:05 | disposition short-term general hospital (02) ==
LOC: ER 16:38
DX: U07.1 COVID-19 (principal); J12.82 Pneumonia due to coronavirus disease 2019; E11.22 Type 2 diabetes mellitus with diabetic chronic kidney disease; N18.5 Chronic kidney disease, stage 5; Z94.1 Heart transplant status; Z88.8 Allergy status to other drugs, medicaments and biological substances
CPT/HCPCS: 93005; 87040 ×2; 85025; 80048; 36415; 83735; 85610; 80076; 83605; 84484; 84145; 83880; 0240U; 70450; 74176; 71045; J3010; J7050; 81003; 81015; 96374; 96375; 99285

== ENCOUNTER 2022-11-04 08:09 | Emergency (ER) | payer OTHER ==
--- OUTSIDE RECORDS SUMMARY | 2022-11-04 08:13 | XMS REPORT | Clinical Summary ---
:1945 Author Organization [facility] MD [facility] Address [address] [place] [address] Care Team Providers Name Role Phone Kevin [...] ve (Colace) 100 mg 8 capsule omega [id number] Take 2,000 mg 0 Active oil 1,000 [...] mg 2 tablet calcium daily. 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 after 11/04/2021 Results Pathology Biopsy Interpretation (03/17/2022 5:20 PM CDT)Only the most recent of2 resultswithin the time period is included. 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 1:28 PM signed by Art Dermal fibrosis and folliculitis. CDT Zuleyma Levine MD on 03/19/2022 at 1:28 PM Gross A: 03/19/2022 [facility] Description skin, right preauricular ch [place]: Two previously inked, campbell skin and shaves, 0.6 x 0.2 x 0.1 cm and 0.6 x 0.3 x 0.2 cm , entirely submitted in A1. ET 1:28 PM CDT Disclaimer "Some tests 03/19/2022 [facility] reported here may 1:28 PM have been CDT developed and performance characteristics determined by [facility]. These tests have [...] Organization Address City/State/ZIP Code Phon e Number [facility] [place] [address] [address] [place] after 11/04/2021 Insurance Payer Benefit Plan / Subscriber ID Effective Dates Phone Addre ss Type Group MEDICARE MEDICARE PART [id number] 1997-Presen [phone] [facility] Medicare A AND B t 2 SOLUTIONS [address] [place] [address] GENERIC GENERIC [id number] 2008-Presen [phone] [address] [address] PPO MEDICARE t 0 [place], [place] SUP-SECONDARY [address] ONLY 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 [place] [address] Alejo Saxena MD PCP - External Referring 02/12/14 Alejo Saxena MD PCP - External Follow Up A 02/12/14 Donald Epstein MD PCP - External Follow Up B 03/01/14 [id number] [facility] [address] [place] [address] Kevin Amaya MD Physician 12/04/15 [facility] [place] [address]
[2022-11-04 08:34] LABS: Absolute Lymphocytes (CBC) 0.4 K/uL (0.7-4.9); Hematocrit 34.9 % (39.6-49.0); Lymphocytes % 7.5 % (15.3-44.8); MCV 96.5 fL (80-100); MPV 8.1 fL (7.6-11.3); RBC Red Blood Cell Count 3.62 M/uL (4.33-5.43)
--- OUTSIDE RECORDS SUMMARY | 2022-11-04 08:43 | XMS REPORT | Continuity of Care Document ---
:1945 Author Organization [facility] t Address [address] [place] [address] Care Team Providers Name Role Phone Agent, Berenice Brice Primary Care Physician SYSTEM, PROVIDER NOT IN Attending Clinician Unavailable BENJAMIN AMAYA Attending Clinician Unavailable Connor BLANK, Tejinder Child Attending Clinician Provider, Unknown Attending Clinician Unavailable Kahlil Aranda MD Attending Clinician Linda Lafleur RN Attending Clinician Unavailable Britney Maloney MD Attending Clinician Geraldine Braun MD Attending Clinician Khalida Faulkner MD Attending Clinician Tarcy Roman RN Attending Clinician Unavailable Boaz Ibarra MD Attending Clinician Vero Moreland MA Attending Clinician Unavailable Sanjuana Serrano MA Attending Clinician Unavailable Savannah Blnak MD Attending Clinician Tracy Bailey MD Attending Clinician Margaret Topete MD Attending Clinician Minal BLANK, Yash Attending Clinician Asked, No Pcp Attending Clinician Unavailable Olya LAWRENCE, Lefty Attending Clinician Unavailable Dmitri BLANK PhD, Stanley Attending Clinician Judd TODD, Sapphire Attending Clinician Unavailable Yolanda Attending Clinician Unavailable Rebecca Barajas MA Attending Clinician Unavailable Verna BLANK, Uday Attending Clinician Rock BLANK, Trevon Attending Clinician Domingo LAWRENCE, Hortensia Attending Clinician Unavailable Pablo BLANK, Bob Swift Attending Clinician [phone] Albin Duran Attending Clinician Yeimy BLANK, Nicole Elise Attending Clinician Lucero Veronica MA Attending Clinician Unavailable Gabe BLANK, Jackelyn Attending Clinician Jaime Sun Attending Clinician [phone] Kwasi LAWRENCE, Paty Chaidez Attending Clinician Unavailable Edelmira Gallo MA Attending Clinician Unavailable Miranda Gomez RN Attending Clinician Unavailable Sai BLANK, Patricio Attending Clinician Angus LAWRENCE, Clarisa Attending Clinician Unavailable Yariel Bettencourt MD Attending Clinician Smooth Brasher MD Attending Clinician Diego Jaime RN, Mahogany Attending Clinician Unavailable Soha Duran MD Attending Clinician India Blank MD Attending Clinician [phone] Pebbles Venegas MD Attending Clinician Janet Zendejas MD Attending Clinician MD INDIA BLANK Attending Clinician UnavailRob Hodges Attending Clinician Unavailable Musa Ray RN Attending Clinician Unavailable DHARMESH DANIELS Attending Clinician Unavailable MAYURI FRIEND Attending Clinician Unavailable MD MAYURI FRIEND Attending Clinician Unavailable RIGOBERTO BOOGIE Attending Clinician Unavailable Nurse, Terry Pob Immunization Attending Clinician Unavailable Rigoberto Boogie DO Attending Clinician MAGNUS RUFF Attending Clinician Unavailable OPHELIA VILLAGRAN Attending Clinician Unavailable RAKAN MURCIA Attending Clinician Unavailable FAMILIA NOLEN Attending Clinician Unavailable Doctor Unassigned, [place] Attending Clinician Unavailable YAZ GALARZA Attending Clinician Unavailable LINDSEY RITTER Attending Clinician Unavailable Radiology Attending Clinician Unavailable JELLY MCMULLEN Attending Clinician Unavailable Viri Lo Attending Clinician BENJAMIN AMAYA Attending Clinician Unavailable SAVANNAH BLANK Admitting Clinician Unavailable Corinne_Suzanne Admitting Clinician Unavailable SOHA DURAN Admitting Clinician Unavailable MD SOHA DURAN Admitting Clinician Unavailable YAZ GALARZA Admitting Clinician Unavailable JELLY MCMULLEN Admitting Clinician Unavailable Viri Lo Admitting Clinician Payers Payer Name Policy Type Policy Number Effective Date Expiration Date S [place] MEDICARE PART A AND [id number] 1997 B 00:00:00 [place]: [id number] 1997 [employer]entabs 00:00:00 [facility] [id number] [facility] (MEDICARE REPLACEMENT O) MEDICARE PART A \\T\\ [id number] 1997 B 00:00:00 COMMERCIAL [id number] 2008 NON-CONTRACT 00:00:00 GENERIC Problems Condition Condition Condition Status Onset Resolution Last Treating Co mments Source Name Details Category Date Date Treatment Clinician Date Clinical Clinical Disease Active 2021-09 Metho di diagnosis diagnosis 2 of of 00:00: Hospita COVID-19 COVID-19 00 l COVID COVID Disease Active 2021-09 Methodi 11-21 00:00: Hospita 00 l Abrasion Abrasion Disease Active 2021-09 Metho di of left of left 2-16 st upper arm upper arm 00:00: Hosp ramiro 00 l Acidosis Acidosis Disease Active 2021-09 Metho di 2- st 00:00: Hospita 00 l Acute Acute [...] l Liver mass Liver mass Disease Active Overview : Methodi 2-[address] 00:00: [...] core biopsyLashae palacios MD Endovascu lar Radiology [phone] - Y20 radioembo lization treatment in [...] 2020-09 Metho di gait and gait and 2-17 st mobility mobility 00:00: Hospit a 00 l Emphysema Emphysema Disease Active 2020-09 Met hodi lung lung 2-17 st 00:00: Hospita 00 l Multifocal Multifocal Disease Active 2020-09 M ethodi pneumonia pneumonia 2-10 st 00:00: Hospita 00 l Osteopenia Osteopenia Disease Active M ethodi of of 8-11 st multiple multiple 00:00: Hospit a sites sites 00 l Vitamin D Vitamin D Disease Active Met hodi deficiency deficiency 05-07 00:00: Hospita 00 l Headaches Headaches Disease Active Overview: Methodi due to old due to old 04-[address] head head 00:00: g of this Hospita injury injury 00 note l might be different from the original. Followed by Neurology Post 2017 fall with concussio n and subsequen t memory losses. Head Head Disease Active Overview: Method i injury injury 04-[address] 00:00: g of this Hospita [...] st by by 00:00: g of this Hospita transplant transplant 00 note l might be different from the original. 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 Added automatic ally from request for surgery [id number] Subclinica Subclinica Disease Active M ethodi l l 24 st hypothyroi hypothyroi 00:00: Ho spita dism dism 00 l Traumatic Traumatic Disease Active Met hodi hemopneumo hemopneumo 04-29 st thorax, thorax, 00:00: Hospita initial initial 00 l encounter encounter MULTIPLE MULTIPLE Diagnosis Active 2018-04-27 Memoria RIGHT RIGHT 04-07 22:11:00 l SIDED RIB SIDED RIB 00:00: Vlad ponce FX FX Active 00 04/07/2018 [facility] GO Diagnosis Active 2018-04-07 Memoria BILLING/ GO 04-07 23:03:00 l LFLT #3435 BILLING/ 00:00: Vlad ponce LFLT #3435 00 Active 04/07/2018 [facility] Diarrhea Diarrhea Disease Active Metho di 02-25 st 00:00: Hospita 00 l Cellulitis Cellulitis Disease Active M ethodi 4-23 st 00:00: Hospita 00 l Chest pain [...] Essential Disease Active Overview: Methodi hypertensi hypertensi 05-[address] on on 00:00: g of [...] 10/12/2016 Cw5 3100 DP11 3154 11/15/2015 Cw5 3217 DP11 2993 Diabetes Diabetes Disease Active Overview: Me thodi mellitus mellitus [address] 00:00: g of this Hospita [...] Overview: Method i transplant transplant 11-[address] ed ed 00:00: g of this Hospita 00 note is l different from the original. 09/29/2006 Heart Transplan tFK 1 mg Q 12; Prednison e 5Does not tolerate Rapamune. Failed prednison e wean.Visi t Date biopsy C4D Treatment Echo CMV Level Annual Year 12 11/21/18 [facility] clear BNP 155, SCr 1.87, GFR 34, Chol 141,osteo penia, clear coronarie s on cath 60-64 neg 6.6 Clinic 01/09/19 Post local HOSP (5 days) Influenza & pneumonia EBP827; SCr 1.89 3.8 Clinic 02/06/19 C/O memory [...] doing better GI Notes 02/08/20 EGD & [place] Performed ; multiple polyps but no carcinoma Delayed stomach emptying noted. Additiona l testing for gastropar esis ordered. 05/20/20 Clinic Clinic 07/09/20 BNP 206, Scr 1.78/GFR 36 Torsemide increased ; Keflex 500 BID 10 day for rt. Leg laceratio n; Refer Podiatris t BAmari Selbst <2.0 Year 14Annual 03/04/21 Card PET [...] Disease Active Overview: Method i (hyperlipi (hyperlipi -[address] demia) demia) 00:00: g of this Hospita 00 note l might be different from the original. Diabetic/ hyperlipi demia/ost eopeniaFi sh Oil - omega 3 1999 BIDPravas tain 80 Obesity, Obesity, Disease Active Metho di diabetes, diabetes, 11-14 st and and 00:00: Hospita hypertensi hypertensi [...] s of mouth s of mouth 11-03 00:00: Hospita 00 l Esophagiti Esophagiti Disease Active 2011-09 M ethodi s s 11-03 st 00:00: Hospita 00 l Ulcer of Ulcer of Disease Active 2011-09 Metho di esophagus esophagus 11-03 st 00:00: Hospita 00 l Abdominal Abdominal Disease Active Met hodi pain pain 03-03 st 00:00: Hospita 00 l Candidiasi Candidiasi Disease Active M ethodi s of s of 03-03 esophagus esophagus 00:00: Hosp ramiro 00 l Gastroesop Gastroesop Disease Active M ethodi hageal hageal 03-03 reflux reflux 00:00: Hospita disease disease 00 l Acute Acute Problem 2018-11-05 Memor ia kidney kidney 13:12:34 l failure, failure, Brent n unspecifie unspecifie d d 11/05/2018 [facility] Acute Acute Problem 2018-11-05 Memor ia posthemorr posthemorr 13:12:34 l karan Quevedo anemia anemia 11/05/2018 [facility] Heart Heart Problem 2018-11-05 Memor ia 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:12:34 l status status [place] 11/05/2018 [facility] Urinary Urinary Problem 2018-11-05 Vt moria tract tract 13:12:34 l infection, infection, He rmann site not site not specified specified 11/05/2018 [facility] Atelectasi Atelectas Problem 2018-11-05 Memoria s is 13:12:34 l 11/05/2018 Brent huggins [facility] Fall on Fall on Problem 2018-11-05 Me moria and from and from 13:12:34 l ladder, Sae roach initial initial encounter encounter 11/05/2018 [facility] 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 13:12:34 l mellitus mellitus Brent huggins 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 11/05/2018 [facility] Abrasion Abrasion Problem 2018-11-05 Memoria of left of left 13:12:34 l upper arm, upper arm, He rmann initial initial encounter encounter 11/05/2018 [facility] Hyperlipid Problem 2018-11-05 M emoria emia, Hyperlipid 13:12:34 l unspecBrent adame unspecifie d 11/05/2018 [facility] Traumatic Traumatic Problem 2018-11-05 Memoria subcutaneo subcutaneo 13:12:34 l us us Sae emphysema, emphysema, initial initial encounter encounter 11/05/2018 [facility] Acute pain Acute Problem 2018-11-05 M emoria due to pain due 13:12:34 l trauma to trauma [place] 11/05/2018 [facility] 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 a coli [E. 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 [place] 11/05/2018 [facility] Gastro-eso Gastro-es Problem 2018-11-05 Memoria phageal ophageal 13:12:34 l reflux reflux [place] disease disease without without esophagiti esophagiti s s 11/05/2018 [facility] Hyperkalem Hyperkale Problem 2018-11-05 Memoria ia mor 13:12:34 l 11/05/2018 Brent huggins [facility] Diarrhea, Diarrhea, Problem 2018-11-05 Memoria unspecifie unspecifie 13:12:34 l d d [place] 11/05/2018 [facility] Contusion Contusion Problem 2018-11-05 Memoria of of 13:12:34 l abdominal abdominal Herm ruby wall, wall, initial initial encounter encounter 11/05/2018 [facility] MULTIPLE MULTIPLE Diagnosis Active 2018-04-27 Memoria FRACTURES FRACTURES 22:11:00 l OF RIBS, OF RIBS, Brent n UNSP SIDE, UNSP SIDE, I I Active [facility] Multiple Multiple Problem 2018-11-05 Memoria fractures fractures 13:12:34 l of ribs, of ribs, Brent n right right side, side, initial initial encounter encounter for closed for closed fracture fracture 11/05/2018 [facility] Hypertensi Hypertens Problem 2018-11-05 Memoria ve heart tricia heart 13:12:34 l and and [place] chronic chronic kidney kidney disease disease with heart with heart failure failure and stage and stage 1 through 1 through stage 4 stage 4 chronic chronic kidney kidney disease, disease, or or unspecifie unspecifie d chronic d chronic kidney kidney disease disease 11/05/2018 [facility] Chronic Chronic Problem 2018-11-05 Me moria kidney kidney 13:12:34 l disease, disease, Brent huggins stage 4 stage 4 (severe) (severe) 11/05/2018 [facility] Contusion Contusion Problem 2018-11-05 Memoria of lung, of lung, 13:12:34 l unilateral unilateral He rmann , initial , initial encounter encounter 11/05/2018 [facility] Acidosis Acidosis Problem 2018-11-05 Memoria 11/05/2018 13:12:[address] [facility] Unspecifie Unspecifi Problem 2018-11-05 Memoria d fracture ed 13:12:34 l of T9-T10 fracture Mallorie nn vertebra, of T9-T10 initial vertebra, encounter initial for closed encounter fracture for closed fracture 11/05/2018 [facility] No known No known Disease [place] active active Health problems problems History of Past Illness Condition Condition Condition Status Onset Resolution Last Treating Co mments Source Name Details Category Date Date Treatment Clinician Date Traumatic Traumatic Problem 2017-2018-11-05 2018-11-05 Memoria hemopneumo hemopneumo 04-29 13:12:34 13:12:34 l thorax, thorax, 03:07: Sae initial initial 22 encounter encounter 04/29/2018 9 [facility] Allergies, Adverse Reactions, Alerts Allergy Allergy Status [...] [place] reaction 00 PAPER MD suzanne huggins [facility] Wound Drug Active Unknown 2017-09 TEARS [place] Dressing Allergy 2-19 SKIN. [place] Healt h Adhesive 00:00: WITH 00 PAPER Adhesive Propensi Active Other (See 2017-09 TEARS Me thodi Tape-Nai ty to Comments) 2-[address] icones adverse 00:00: WITH Hospita reaction 00 PAPER l s to drug SIROLIMU DRUG Active 2015-09 MD Palacios INGREDI 10-06 Anderso 00:00: n 00 Sirolimu Propensi Active 2015-09 Univer s s ty to -10 ity of adverse 00:00: [place] reaction 00 MD suzanne Frost n [facility] Center Sirolimu Propensi Active Swelling 2015-09 Meth susan s ty to 1-10 st adverse 00:00: Hospita reaction 00 l s to drug NO KNOWN Drug Active Univers ALLERGIE Class ity of S [facility] Rapamune Allergy Active [place] to [facility] Urology e Family History Family Member Diagnosis Comments Start Date Stop Date Source Natural brother No Known Problems [facility] Natural brother Heart disease [facility] Natural son No Known Problems [facility] Natural daughter Hypertension [facility] Natural daughter Colon cancer [facility] mother Diabetes [facility] Natural mother Heart disease [facility] Natural sister Hypertension [facility] Social History Social Habit Start Date Stop Date Quantity Comments Source History of tobacco Current smoker Me [facility]odist use Hospital History [facility]ospita l History [facility] Alcohol intake 2022-10-26 2022-10-26 Current drinker Metho dist 00:00:00 00:00:00 of alcohol Hospital (finding) Cigarettes smoked 2022-10-05 2022-10-[address] current (pack per 00:00:00 00:00:00 Hospita l day) - Reported Cigarette 2022-10-05 2022-10-05 [facility] pack-years 00:00:00 00:00:00 Hospital Tobacco Comment 2022-10-05 2022-10-05 used to smoke 1 Meth odist 00:00:00 00:00:00 ppd not since Hospital 1988 Exposure to 2022-02-14 2022-02-24 Not sure University SARS-CoV-2 (event) 00:00:00 10:24:00 [facility] Alcohol Comment 2021-02-18 2021-02-18 A beere once or Meth odist 00:00:00 00:00:00 twice a month Hospital History SDOH 2020-10-03 2020-10-03 1 [facility] Alcohol Std Drinks 00:00:00 00:00:00 Hospit al Tobacco use and 2018-09-15 2018-09-[address] [facility] exposure 00:00:00 00:00:00 Medical Center Sex Assigned At [birth year] [facility] 00:00:00 00:00:00 [place] [facility] Smoking Status Start Date Stop Date Source Unknown if ever smoked [facility] Ex-smoker 2022-10-05 00:00:00 2022-10-05 00:00:00 [facility] Social History [facility] Medications Ordered Filled Start Stop Current Ordering Indication Dosage Frequency Signature Comments Components Source Medication Medication Date Date Medication? Clinician (SIG) Name Name folic acid Yes TAKE 1 Metho di (FOLVITE) 1 -[address] MG tablet 00:00: MOUTH Hospita 00 EVERY DAY l torsemide 2023- Yes 40mg QD TAKE 2 Metho di (DEMADEX) 10-21-[address] 20 MG 00:00: 05:59 (40 MG Hospita tablet 00 :00 TOTAL) BY l MOUTH DAILY. tacrolimus 2023- Yes [id number] Take 0.5 Methodi (PROGRAF) 10-19 01-[address] 0.5 MG 00:00: 05:59 day on Hospita capsule 00 :00 Jo Blanca l Sat, [place] and take 0.5 mg AM and 1 mg PM on M,W, F. Z94.1 heart transplant ed. ALPRAZolam Yes .5mg QD Take 1 Metho di (XANAX) 0.5 1-[address] MG tablet 10:00: (0.5 mg Hospi ta 05 total) by l mouth nightly as needed for sleep or anxiety. aspirin Yes 81mg QD Take 1 Methodi (ECOTRIN) 1-18 tablet (81 st 81 MG 10:00: mg total) Hospita enteric 05 by mouth l coated daily. tablet calcium Yes 1{tbl} Q.5D Take 1 Method i carbonate-v 1-[address] itamin D3 10:00: mouth 2 Hospi ta 600 05 (two) l mg(1,500mg) times a -200 unit day with per tablet meals. tamsulosin 0 Yes .4mg QD Take 1 Metho di (FLOMAX) 1-[address] 0.4 mg 10:00: (0.4 mg Hospita capsule,ext 05 total) by l ended mouth release nightly. 24hr thiamine 2022-0 Yes 100mg QD Take 1 Method i 100 MG 1-[address] tablet 10:00: (100 mg Hospita 05 total) by l mouth daily. finasteride 0 Yes 5mg QD Take 1 Meth susan (PROSCAR) 5 1-18 tablet (5 st mg tablet 10:00: mg total) Hos sayda 05 by mouth l nightly. HYDROcodone 0 Yes [id number] 1{tbl} Q6H Take 1 M ethodi -acetaminop 1-[address] hen (NORCO) 10:00: mouth Hospi ta 5-325 mg 05 every 6 l per tablet (six) hours as needed for moderate pain .acute pain. metOLazone 0 Yes 2.5mg Take 1 Meth susan (ZAROXOLYN) 1-[address] 2.5 MG 10:00: (2.5 mg Hospita tablet 05 total) by l mouth as needed. Weight gain of 3 lbs omega 0 Yes 2000mg Q.5D Take 2,000 Meth susan 3-dha-epa-f 1-[address] juancarlos oil 09:49: mouth 2 Hospita 1,000 mg 46 (two) l (120 mg-180 times a mg) capsule day. amLODIPine 2023- Yes 5mg QD Take 1 Meth susan (NORVASC) 5 10-05 01-10 tablet (5 st mg tablet 00:00: 05:59 mg total) Ho spita 00 :00 by mouth l daily. labetaloL 2023- Yes 200mg Q.5D Take 2 Meth susan (NORMODYNE) 10-02-[address] 100 MG 00:00: 05:59 (200 mg Hospita tablet 00 :00 total) by l mouth 2 (two) times a day. tacrolimus 2022- No [id number] Take 0.5 Methodi (PROGRAF) 10-02 01-[address] 0.5 MG 00:00: 00:00 day on Hospita capsule 00 :00 Jo Blanca l Sat, Sun and take 0.5 mg AM and 1 mg PM on M,W, F. Z94.1 heart transplant ed. calcium 2021-09- No Take by Method i carbonate 2-26 12-[address] (CALCIUM 01:13: 00:00 Hospita 600 ORAL) 12 :00 l allopurinoL 2021-09 Yes TAKE 1 Meth susan (ZYLOPRIM) 2-[address] 100 MG 00:00: MOUTH Hospita tablet 00 TWICE A l DAY allopurinoL 2021-09 Yes TAKE 1 Meth susan [...] Hosp ramiro 38 l HYDROcodone 2021-09 Yes [id number] 1{tbl} Q6H Take 1 M ethodi -acetaminop [...] injection MORNING AND 20 UNITS EVERY EVENING NovoLIN 2021-09 Yes INJECT Methodi 70/30 U-100 0-[address] Insulin 100 00:00: SKIN 12 Hos sayda unit/mL 00 UNITS l (70-30) EVERY injection MORNING AND 20 UNITS EVERY EVENING potassium Yes TAKE 2 Method i chloride 9-[address] (K-DUR) 10 00:00: MOUTH Hospit a MEQ CR 00 EVERY DAY l tablet potassium Yes TAKE 2 Method i chloride 9-[address] (K-DUR) 10 00:00: MOUTH Hospit a MEQ CR 00 EVERY DAY l tablet potassium 0 2021- No TAKE 2 Metho di chloride 06-04-[address] (K-DUR) 10 00:00: 00:00 MOUTH Hospi ta MEQ CR 00 :00 EVERY DAY l tablet potassium 2021-0 2021- No TAKE 2 Metho di chloride 06-04-[address] (K-DUR) 10 00:00: 00:00 MOUTH Hospi ta MEQ CR 00 :00 EVERY DAY l tablet gabapentin 0 Yes 400mg Q.[id number] Take 400 Methodi (NEURONTIN) 7-17 [id number] mg by s t 400 mg 00:00: 3D mouth 3 Hospita capsule 00 (three) l times a day. gabapentin 2021-0 Yes 400mg Q.[id number] Take 1 Methodi (NEURONTIN) 7-[id number] 400 mg 00:00: 3D (400 mg Hospita capsule 00 total) by l mouth 3 (three) times a day. insulin Yes [id number] INJECT M ethodi syringe-nee 7-[address] dle U-100 00:00: DAY Hospita (BD Insulin 00 l Syringe Ultra-Fine) 0.5 mL 31 gauge x 5/16" syringe insulin Yes [id number] INJECT M ethodi syringe-nee 04-[address] dle U-100 00:00: DAY Hospita (BD Insulin 00 l Syringe Ultra-Fine) 0.5 mL 31 gauge x 5/16" syringe insulin 2021- No [id number] INJECT Methodi syringe-nee 03-[address] dle U-100 00:00: 00:00 DAY Hospita (BD Insulin 00 :00 l Syringe Ultra-Fine) 0.5 mL 31 gauge x 5/16" syringe insulin 2021- No [id number] INJECT Methodi syringe-nee 03-[address] dle U-100 00:00: 00:00 DAY Hospita (BD Insulin 00 :00 l Syringe Ultra-Fine) 0.5 mL 31 gauge x 5/16" syringe ALPRAZolam Yes 4 (four) Uni vers (XANAX) 0.5 6-21 times a ity o f mg tablet 11:03: day. MD Margot huggins [facility] calcium Yes daily. Univers phos-D3-her 6- ity of bal no.293 11:03: (Alive 01 Calcium-Vit Anderso rosas D3) n 260 mg Cancer calcium- 25 Center mcg-50 mg chew cranberry Yes daily. Univer s 400 mg cap 6-21 ity of 11:03: MD Margot huggins [facility] Center ALPRAZolam Yes 4 (four) Uni vers (XANAX) 0.5 6-21 times a ity o f mg tablet 11:03: day. MD Margot huggins [facility] Center calcium 2021-0 Yes daily. Univers phos-D3-her 6-21 ity of bal no.293 11:03: (Alive 01 Calcium-Vit Anderso rosas D3) n 260 mg Cancer calcium- 25 Center mcg-50 mg chew cranberry Yes daily. Univer s 400 mg cap 6-21 ity of 11:03: [place] [facility] amLODIPine 2021-0 Yes 5mg Take 5 mg Un christian (NORVASC) 5 6-21 by mouth ity of mg tablet 11:03: daily. [place] 00 [facility] omega 2021-0 Yes 2000mg Take 2,000 Univ ers 3-dha-epa-f 6-21 mg by ity of juancarlos oil 11:03: mouth [place] 1,000 mg 00 daily. (120 mg-180 Anderso mg) RUST sertraline 202-0 Yes daily. Unive rs (ZOLOFT) 50 6-21 ity of mg tablet 11:03: [place] 00 [facility] amLODIPine 2021-0 Yes 5mg Take 5 mg Un christian (NORVASC) 5 6-21 by mouth ity of mg tablet 11:03: daily. [facility] omega 2021-0 Yes 2000mg Take 2,000 Univ ers 3-dha-epa-f 6-21 mg by ity of juancarlos oil 11:03: mouth [place] 1,000 mg 00 daily. (120 mg-180 Anderso mg) RUST sertraline 2021-0 Yes daily. Unive rs (ZOLOFT) 50 6-21 ity of mg tablet 11:03: [place] 00 [facility] cyclobenzap 2021-0 Yes daily as Un christian rine 6-13 needed. ity of (FLEXERIL) 00:00: [place] 10 mg 00 MD tablet [facility] cyclobenzap 2021-0 Yes daily as Un christian rine 6-13 needed. ity of (FLEXERIL) 00:00: [place] 10 mg 00 MD tablet [facility] tacrolimus 2021-0 Yes [id number] TAKE 1 Methodi (PROGRAF) 6-[address] 0.5 MG 00:00: MOUTH 2 Hospita capsule 00 TIMES A l DAY. tacrolimus 2021-0 2023- No [id number] TAKE 1 [facility] (PROGRAF) 6-06 01-[address] 0.5 MG 00:00: 00:00 MOUTH 2 Hospita capsule 00 :00 TIMES A l DAY. OneTouch 2022-0 Yes [id number] USE Me thodi Verio test 02-[address] strips 00:00: TIMES A Hospita strip test 00 DAY l strips OneTouch 0 Yes [id number] USE Me thodi Verio test 02-[address] strips 00:00: TIMES A Hospita strip test 00 DAY l strips finasteride 2021-0 Yes daily. [facility] (PROSCAR) 5 5-31 ity of mg tablet 00:00: [facility] finasteride 2021-0 Yes daily. Univ ers (PROSCAR) 5 5-31 ity of mg tablet 00:00: [facility] sertraline 2021-0 Yes daily. Unive rs (ZOLOFT) 50 5-24 ity of mg tablet 00:00: [facility] sertraline 2021-0 Yes daily. Unive rs (ZOLOFT) 50 5-24 ity of mg tablet 00:00: [place] [facility] sertraline Yes [id number] 50mg QD Take 1 [facility] (ZOLOFT) 50 5-24 tablet (50 st MG tablet 00:00: mg total) Hos sayda 00 by mouth l daily. sertraline Yes [id number] 50mg QD Take 1 [facility] (ZOLOFT) 50 5-24 tablet (50 st MG tablet 00:00: mg total) Hos sayda 00 by mouth l daily. sertraline 2021- No 50mg QD Take 1 Meth susan (ZOLOFT) 50 5-24 05-24 tablet (50 s t MG tablet 00:00: 00:00 mg total) Ho spita 00 :00 by mouth l daily. sertraline 2021- No 50mg QD Take 1 Meth susan (ZOLOFT) 50 5-24 05-24 tablet (50 s t MG tablet 00:00: 00:00 mg total) Ho spita 00 :00 by mouth l daily. isosorbide Yes TAKE 1 Metho di mononitrate 5-[address] (IMDUR) 30 00:00: MOUTH Hospit a MG 24 hr 00 EVERY DAY l tablet isosorbide Yes TAKE 1 Metho di mononitrate 5-[address] (IMDUR) 30 00:00: MOUTH Hospit a MG 24 hr 00 EVERY DAY l tablet blood sugar Yes [id number] USE [facility] diagnostic [address] strips 00:00: TIMES A Hospita (OneTouch DAYDX l Verio test CODE: strips) E08.22 strip test strips blood sugar Yes [id number] USE [facility] diagnostic [address] strips 00:00: TIMES A Hospita (OneTouch 00 DAYDX l Verio test CODE: strips) E08.22 strip test strips hydrocodone hydrocodone No hydrocodon Hernandez 10 10 5-17 e [...] affected MD area(s) Anderso twice n daily. [facility] mupirocin Yes Squamous Apply Uni vers (BACTROBAN) 5-16 cell topically ity of 2% ointment 00:00: [place] of nose affected MD area(s) Anderso twice n daily. [facility] mupirocin Yes Squamous Apply Uni vers (BACTROBAN) 5-16 cell topically ity of 2% ointment 00:00: [place] 00 of nose affected MD area(s) Margot twice n daily. [facility] ferrous 2021- No 325mg QD Take 325 Meth susan sulfate 325 5-12 05-[address] (65 FE) MG 16:38: 00:00 mouth Hospi ta tablet 12 :00 daily with l breakfast. ferrous 2021- No 325mg QD Take 325 [...] iron per Anderso tablet) n tablet [facility] ferrous 2022- No 325mg Take 325 Univ ers sulfate 325 5-12 05-13 mg by ity of mg (65 mg 00:00: 04:59 mouth [place] elemental 00 :00 daily. iron per Anderso tablet) n tablet Cancer [place] ferrous 2022- No 325mg QD Take 1 [facility] i sulfate 325 5-12 05-[address] (65 FE) MG 00:00: 04:59 (325 mg Hos [facility] tablet 00 :00 total) by l mouth daily with breakfast. ferrous 2022- No 325mg QD Take 1 [facility] i sulfate 325 5-12 05-[address] (65 FE) MG 00:00: 04:59 (325 mg Hos say[facility] tablet 00 :00 total) by l mouth daily with breakfast. tacrolimus Yes .5mg Take 0.5 Uni vers (PROGRAF) 5-10 mg by ity of 0.5 mg 14:51: mouth. [place] capsule 12 MD Margot huggins [facility] mycophenola Yes Take by Uni vers te 5-10 mouth. ity of (CELLCEPT) 14:51: [place] 500 mg 12 MD emeli [facility] predniSONE Yes 5mg Take 5 mg Un christian (DELTASONE) 5-10 by mouth. ity of 5 mg tablet 14:51: [place] 12 MD Margot huggins [facility] aspirin 81 Yes 81mg Take 81 mg U nivers mg EC 5-10 by mouth. ity of tablet 14:51: [place] 12 [facility] calcium Yes 1{tbl} Take 1 Univer s carbonate-v 5-10 tablet by ity of itamin D3 14:51: mouth. [place] 1,250 mg 12 (500 mg as Anderso elemental)- n 200 units Cancer tablet Center multivitami Yes 1{tbl} Take 1 Un chrisitan n 5-10 tablet by ity of (THERAGRAN) 14:51: [place] tablet 12 [facility] thiamine Yes 100mg Take 100 Univ ers (VITAMIN 5-10 mg by ity of B-1) 100 mg 14:51: [place] tablet 12 [facility] omega-3 Yes 1g Take 1 g Univer s acid ethyl 5-10 by mouth. ity of esters 14:51: [place] (LOVAZA) 1 12 MD g capsule [facility] magnesium Yes 400mg Take 400 Uni vers oxide 5-10 mg by ity of (MAOX) 400 14:51: mouth. [place] mg tablet 12 [facility] allopurinol Yes 100mg Take 100 U nivers (ZYLOPRIM) 5-10 mg by ity of 100 mg 14:51: mouth. [place] tablet 12 [facility] amLODIPine Yes 5mg Take 5 mg Un christian (NORVASC) 5 5-10 by mouth. ity of mg tablet 14:51: [place] 12 [facility] esomeprazol Yes 40mg Take 40 mg Univers e (NexIUM) 5-10 by mouth. ity of 40 MG 14:51: [place] capsule 12 [facility] gabapentin Yes 300mg Take 300 Un christian (NEURONTIN) 5-10 mg by ity of 300 mg 14:51: mouth. [place] capsule 12 [facility] metOLazone Yes 2.5mg Take 2.5 Un christian (ZAROXOLYN) 5-10 mg by ity of 2.5 mg 14:51: mouth. [place] tablet 12 MD [facility] isosorbide Yes 30mg Take 30 mg U nivers mononitrate 5-10 by mouth. ity of (IMDUR) 30 14:51: [place] mg 24 hr 12 tablet [facility] tacrolimus Yes .5mg Take 0.5 Uni vers (PROGRAF) 5-10 mg by ity of 0.5 mg 14:51: mouth. [place] capsule 12 [facility] mycophenola Yes Take by Uni vers te 5-10 mouth. ity of (CELLCEPT) 14:51: [place] 500 mg 12 tablet [facility] predniSONE Yes 5mg Take 5 mg Un christian (DELTASONE) 5-10 by mouth. ity of 5 mg tablet 14:51: [place] 12 [facility] aspirin 81 Yes 81mg Take 81 mg U nivers mg EC 5-10 by mouth. ity of tablet 14:51: [place] 12 [facility] calcium Yes 1{tbl} Take 1 Univer s carbonate-v 5-10 tablet by ity of itamin D3 14:51: mouth. [place] 1,250 mg 12 (500 mg as Anderso elemental)- n 200 units Cancer [facility] multivitami Yes 1{tbl} Take 1 Un christian n 5-10 tablet by ity of (THERAGRAN) 14:51: [place] tablet 12 [facility] thiamine Yes 100mg Take 100 Univ ers (VITAMIN 5-10 mg by ity of B-1) 100 mg 14:51: [place]. [place] tablet 12 [facility] omega-3 Yes 1g Take 1 g Univer s acid ethyl 5-10 by mouth. ity of esters 14:51: [place] (LOVAZA) 1 12 g capsule [facility] magnesium Yes 400mg Take 400 Uni vers oxide 5-10 mg by ity of (MAOX) 400 14:51: mouth. [place] mg tablet 12 [facility] allopurinol Yes 100mg Take 100 U nivers (ZYLOPRIM) 5-10 mg by ity of 100 mg 14:51: mouth. [place] tablet 12 [facility] amLODIPine Yes 5mg Take 5 mg Un christian (NORVASC) 5 5-10 by mouth. ity of mg tablet 14:51: [place] 12 [facility] esomeprazol Yes 40mg Take 40 mg Univers e (NexIUM) 5-10 by mouth. ity of 40 MG 14:51: [place] capsule 12 [facility] gabapentin Yes 300mg Take 300 Un christian (NEURONTIN) 5-10 mg by ity of 300 mg 14:51: mouth. [place] capsule 12 [facility] metOLazone Yes 2.5mg Take 2.5 Un christian (ZAROXOLYN) 5-10 mg by ity of 2.5 mg 14:51: mouth. [place] tablet 12 [facility] isosorbide Yes 30mg Take 30 mg U nivers mononitrate 5-10 by mouth. ity of (IMDUR) 30 14:51: [place] mg 24 hr 12 tablet [facility] tacrolimus Yes .5mg Take 0.5 Uni vers (PROGRAF) 5-10 mg by ity of 0.5 mg 14:51: mouth. [place] capsule 12 [facility] mycophenola Yes Take by Uni vers te 5-10 mouth. ity of (CELLCEPT) 14:51: [place] 500 mg 12 tablet [facility] predniSONE Yes 5mg Take 5 mg Un christian (DELTASONE) 5-10 by mouth. ity of 5 mg tablet 14:51: [place] [address] [facility] aspirin 81 Yes 81mg Take 81 mg U nivers mg EC 5-10 by mouth. ity of tablet 14:51: [place] 12 [facility] calcium Yes 1{tbl} Take 1 Univer s carbonate-v 5-10 tablet by ity of itamin D3 14:51: mouth. [place] 1,250 mg 12 (500 mg as Anderso elemental)- n 200 units [facility] multivitami Yes 1{tbl} Take 1 Un christian n 5-10 tablet by ity of (THERAGRAN) 14:51: [place]. [place] tab tablet 12 [facility] thiamine Yes 100mg Take 100 Univ ers (VITAMIN 5-10 mg by ity of B-1) 100 mg 14:51: [place]. [place] tablet 12 [facility] omega-3 Yes 1g Take 1 g Univer s acid ethyl 5-10 by mouth. ity of esters 14:51: [place] (LOVAZA) 1 12 g capsule [facility] magnesium Yes 400mg Take 400 Uni vers oxide 5-10 mg by ity of (MAOX) 400 14:51: mouth. [place] mg tablet 12 [facility] allopurinol Yes 100mg Take 100 U nivers (ZYLOPRIM) 5-10 mg by ity of 100 mg 14:51: mouth. [place] tablet 12 [facility] amLODIPine Yes 5mg Take 5 mg Un christian (NORVASC) 5 5-10 by mouth. ity of mg tablet 14:51: [place] 12 [facility] esomeprazol Yes 40mg Take 40 mg Univers e (NexIUM) 5-10 by mouth. ity of 40 MG 14:51: [place] capsule 12 [facility] gabapentin Yes 300mg Take 300 Un christian (NEURONTIN) 5-10 mg by ity of 300 mg 14:51: mouth. [place] capsule 12 [facility] metOLazone Yes 2.5mg Take 2.5 Un christian (ZAROXOLYN) 5-10 mg by ity of 2.5 mg 14:51: mouth. [place] tablet 12 [facility] isosorbide Yes 30mg Take 30 mg U nivers mononitrate 5-10 by mouth. ity of (IMDUR) 30 14:51: [place] mg 24 hr 12 tablet [facility] predniSONE 2021-0 2- No 5mg QD Take 5 mg M [facility]i (DELTASONE) 5-02 05-[address] 5 mg tablet 13:58: 00:00 daily. Hos sayda 13 :00 l predniSONE 2021-0 2021- No 5mg QD Take 5 mg M ethodi (DELTASONE) 01-[address] 5 mg tablet 13:58: 00:00 daily. Hos sayda 13 :00 l predniSONE 2021-0 3- No 5mg QD Take 1 Meth susan (DELTASONE) 01-26 05-03 tablet (5 st 5 mg tablet 00:00: 04:59 mg total) Hospita 00 :00 by mouth l daily. Z94.1 HEART TRANSPLANT S/P predniSONE 2021-0 2022- No 5mg QD Take 1 Meth susan (DELTASONE) 01-26-03 tablet (5 st 5 mg tablet 00:00: 04:59 mg total) Hospita 00 :00 by mouth l daily. Z94.1 HEART TRANSPLANT S/P predniSONE 2021-0 Yes daily. Unive rs (DELTASONE) 4-21 ity of 2.5 mg 00:00: [place] tablet 00 [facility] predniSONE 2021-0 Yes daily. Unive rs (DELTASONE) 4-21 ity of 2.5 mg 00:00: [place] tablet [address] [facility] predniSONE 2021-0 2022- No 7.5mg QD Take 3 [facility] h[facility] (DELTASONE) 4-21 04-[address] 2.5 mg 00:00: 04:59 (7.5 mg Hospita tablet 00 :00 total) by l mouth daily. Z94.1 Heart Transplant S/P predniSONE 2021-0 2021- No 7.5mg QD Take 3 Met h[facility] (DELTASONE) 4-21 12-[address] 2.5 mg 00:00: 00:00 (7.5 mg Hospita tablet 00 :00 total) by l mouth daily. Z94.1 Heart Transplant S/P tacrolimus 2021-0 2021- No [id number] .5mg Q.5D Take 1 [facility] (PROGRAF) 418 06-[address] 0.5 MG 00:00: 00:00 (0.5 mg Hospita capsule 00 :00 total) by l mouth 2 (two) times a day. tacrolimus 2021-0 2021- No [id number] .5mg Q.5D Take 1 [facility] (PROGRAF) 01-12 06-[address] 0.5 MG 00:00: 00:00 (0.5 mg Hospita capsule 00 :00 total) by l mouth 2 (two) times a day. aspirin 2021-0 Yes 81mg 81 mg. [place] (ASPIRIN) 08 [facility] 81 MG 08:39: chewable 08 tablet aspirin 2021-0 Yes 81mg 81 mg. [place] (ASPIRIN) 01-02 Health 81 MG 08:39: chewable 08 tablet aspirin 2021-0 Yes 81mg 81 mg. [place] (ASPIRIN) 01-02 Health 81 MG 08:39: chewable 08 tablet OneTouch 2021-0 Yes daily. Univers Verio test 3-28 ity of strips strp 00:00: [place] 00 [facility] OneTouch 2021-0 Yes daily. Univers Verio test 3-28 ity of strips strp 00:00: [place] 00 [facility] magnesium 2021-0 Yes TAKE 1 Method i oxide 3-[address] (MAG-OX) 00:00: MOUTH Hospita 400 mg 00 TWICE A l (241.3 mg DAY magnesium) tablet magnesium 0 Yes TAKE 1 [facility] i oxide 3-[address] (MAG-OX) 00:00: MOUTH Hospita 400 mg 00 TWICE A l (241.3 mg DAY magnesium) tablet amLODIPine 2021-0 2022- No 5mg QD Take 1 Meth susan (NORVASC) 5 2-20 - tablet (5 st mg tablet 00:00: 05:59 mg total) Ho spita 00 :00 by mouth l daily. Pt. tittrating between 2,5 and 5 mg based on BP and renal function amLODIPine 2021-0 2023- No 5mg QD Take 1 Meth susan (NORVASC) 5 2-20 - tablet (5 st mg tablet 00:00: 00:00 mg total) Ho spita 00 :00 by mouth l daily. Pt. tittrating between 2,5 and 5 mg based on BP and renal function pravastatin 2021-0 Yes 80mg QD Take 1 Meth susan (PRAVACHOL) 2- tablet (80 st 80 MG 00:00: mg total) Hospita tablet 00 by mouth l daily. pravastatin Yes 80mg QD Take 1 Meth susan (PRAVACHOL) 10-28 tablet (80 st 80 MG 00:00: mg total) Hospita tablet 00 by mouth l daily. torsemide 2022- No 40mg QD Take 2 Metho di (DEMADEX) 10-[address] 20 MG 00:00: 05:59 (40 mg Hospita tablet 00 :00 total) by l mouth daily. torsemide 2022- No 40mg QD Take 2 Metho di (DEMADEX) 10-[address] 20 MG 00:00: 00:00 (40 mg Hospita tablet 00 :00 total) by l mouth daily. tacrolimus 2021- No [id number] TAKE 1 [facility] (PROGRAF) 10-[address] 0.5 MG 00:00: 00:00 MOUTH Hospita capsule 00 :00 TWICE A l DAY tacrolimus 2021- No [id number] TAKE 1 [facility] (PROGRAF) 10-28 CAPSULE BY [...] 10-16 tablet (1 st MG tablet 00:00: 00:00 mg total) Ho spita 00 :00 by mouth l daily. folic acid 2022- No 1mg QD Take 1 Meth susan (FOLVITE) 1 10-16 tablet (1 st MG tablet 00:00: 05:59 mg total) Ho spita 00 :00 by mouth l daily. sertraline 2021- No [id number] TAKE 1 [facility] (ZOLOFT) 50 10-[address] MG tablet 00:00: 00:00 MOUTH Hospit a 00 :00 EVERY DAY l sertraline 2021- No [id number] TAKE 1 [facility] (ZOLOFT) 50 10-[address] MG tablet 00:00: 00:00 MOUTH Hospit a 00 :00 EVERY DAY l predniSONE 2020-2021- No 7.5mg QD Take 3 [facility] h[facility] (DELTASONE) 11-14-[address] 2.5 mg 00:00: 00:00 (7.5 mg Hospita tablet 00 :00 total) by l mouth daily for 30 days. predniSONE 2020-09- No 7.5mg QD Take 3 [facility] h[facility] (DELTASONE) 11-14- tablets st 2.5 mg 00:00: 00:00 (7.5 mg Hospita tablet 00 :00 total) by l mouth daily for 30 days. benzonatate 2020-09- No 200mg Q.[id number] Take 1 [facility] (TESSALON) 11-[id number] 200 MG 00:00: 00:00 3D (200 mg Hospita capsule 00 :00 total) by l mouth 3 (three) times a day as needed for cough. benzonatate 2020-09- No 200mg Q.[id number] Take 1 [facility] (TESSALON) 11-[id number] 200 MG 00:00: 00:00 3D (200 mg Hospita capsule 00 :00 total) by l mouth 3 (three) times a day as needed for cough. labetaloL 2020-09- No 50mg Q.5D Take 0.5 [facility] h[facility] (NORMODYNE) 11-[address] 100 MG 00:00: 00:00 (50 mg Hospita tablet 00 :00 total) by l mouth 2 (two) times a day for 30 days. arformotero 2020-09- No [id number] 15ug Q.5D Take 2 mL [facility] L [...] No 1{puff} Q.5D Inhale 1 [facility] propionate 2-[address] (Flovent 00:00: 05:59 (two) Hospita HFA) 220 00 :00 times a l mcg/actuati day for 30 on inhaler days. allopurinoL 2020-09- No TAKE 1 [facility] (ZYLOPRIM) 10-[address] 100 MG 00:00: 00:00 MOUTH Hospita tablet 00 :00 TWICE A l DAY allopurinoL 2020-09- No TAKE 1 [facility] (ZYLOPRIM) 10-[address] 100 MG 00:00: 00:00 MOUTH Hospita tablet 00 :00 TWICE A l DAY insulin 2020-09- No [id number] DX 11.654 [facility] syringe-nee 10-[address] dle U-100 00:00: 00:00 INJECT Hospi ta (BD Insulin 00 :00 TWICE l Syringe DAILY Ultra-Fine) 0.5 mL 31 gauge x 5/16" syringe insulin 2020-09- No [id number] DX 11.654 [facility] syringe-nee 10-[address] dle U-100 00:00: 00:00 INJECT Hospi ta (BD Insulin 00 :00 TWICE l Syringe DAILY Ultra-Fine) 0.5 mL 31 gauge x 5/16" syringe OneTouch Yes DX E11.65 Meth susan Delica Plus 9-[address] Lancet 33 00:00: TIMES Hospita gauge misc 00 DAILY l OneTouch Yes DX E11.65 Meth susan Delica Plus 9-[address] Lancet 33 00:00: TIMES Hospita gauge misc 00 DAILY l NovoLIN 2021- No INJECT [facility] 70/30 U-100 05-16- UNDER THE st Insulin 100 00:00: 00:00 SKIN 12 Ho spita unit/mL 00 :00 UNITS l (70-30) EVERY injection MORNING AND 20 UNITS EVERY EVENING NovoLIN 2021- No INJECT [facility] 70/30 U-100 05-[address] Insulin 100 00:00: 00:00 SKIN 12 Ho spita unit/mL 00 :00 UNITS l (70-30) EVERY injection MORNING AND 20 UNITS EVERY EVENING gabapentin 2021- No [id number] 300mg Q.[id number] Take 1 [facility] (NEURONTIN) 04-[id number] 300 mg 00:00: 04:59 3D (300 mg Hospita capsule 00 :00 total) by l mouth 3 (three) times a day. gabapentin 2021- No [id number] 300mg Q.[id number] Take 1 [facility] (NEURONTIN) 04-[id number] 300 mg 00:00: 04:59 3D (300 mg Hospita capsule 00 :00 total) by l mouth 3 (three) times a day. folic acid 2021- No TAKE 1 Meth susan (FOLVITE) 1 04-[address] MG tablet 00:00: 00:00 MOUTH Hospit a 00 :00 EVERY DAY l sertraline 2021- No [id number] 50mg QD Take 1 [facility] (ZOLOFT) 50 04-1614 tablet (50 s t MG tablet 00:00: 00:00 mg total) Ho spita 00 :00 by mouth l daily. blood sugar 2021- No [id number] USE [facility] diagnostic 03-[address] strips 00:00: 00:00 TIMES A Hospita (OneTouch 00 :00 DAY l Verio test strips) strip test strips blood sugar 2021- No [id number] USE [facility] diagnostic 03-[address] strips 00:00: 00:00 TIMES A Hospita (OneTouch 00 :00 DAY l Verio test strips) strip test strips aspirin Yes 81mg 81 mg. [place] (ASPIRIN) 6 [facility] 81 MG 09:42: chewable 24 tablet isosorbide 2021- No 30mg QD Take 1 Meth susan mononitrate 3-01 05-20 tablet (30 s t (IMDUR) 30 00:00: 00:00 mg total) H ospita MG 24 hr 00 :00 by mouth l tablet daily. isosorbide 2021- No 30mg QD Take 1 Meth susan mononitrate 11-25 05-20 tablet (30 s t (IMDUR) 30 00:00: 00:00 mg total) H ospita MG 24 hr 00 :00 by mouth l tablet daily. amLODIPine 2021- No 5mg QD Take 1 Meth susan (NORVASC) 5 11-2520 tablet (5 st mg tablet 00:00: 00:00 mg total) Ho spita 00 :00 by mouth l daily. amLODIPine 2021- No 5mg QD Take 1 Meth susan (NORVASC) 5 11-25 tablet (5 st mg tablet 00:00: 00:00 mg total) Ho spita 00 :00 by mouth l daily. magnesium 2021- No TAKE 1 Metho di oxide 2-15 -[address] (MAG-OX) 00:00: 00:00 MOUTH Hospita 400 mg 00 :00 TWICE A l (241.3 mg DAY magnesium) tablet magnesium 2021- No TAKE 1 Metho di oxide 2-15 -[address] (MAG-OX) 00:00: 00:00 MOUTH Hospita 400 mg 00 :00 TWICE A l (241.3 mg DAY magnesium) tablet pravastatin 2021- No TAKE 1 [facility] (PRAVACHOL) 10-[address] 80 MG 00:00: 00:00 [...] 00:00: as needed. Ho spita 00 l traMADol 2019-0 Yes 50mg Take 1 [facility] (ULTRAM) 50 4-17 tablet (50 st mg tablet 00:00: mg total) Hos sayda 00 by mouth l as needed. tacrolimus 2019-0 Yes .5mg Q.5D Take 0.[address] [facility] (PROGRAF) 1-25 mg [facility].5 MG 14:56: mouth 2 Medical capsule 08 (two) Center times daily. predniSONE 2019-0 Yes 5mg QD Take [address] (DELTASONE) 1-25 by mouth [facility] 5 MG tablet 14:56: daily. Medi jacquelyn 08 [place] torsemide 2019-0 Yes 40mg QD Take [address] (DEMADEX) 1-25 by mouth [facility] 20 MG 14:56: daily. Medical tablet 08 [place] MULTIVITAMI [id number] Yes Take by [facility] N ORAL 1-25 mouth. [facility] 14:56: Medical 08 [place] labetalol 20190 Yes 100mg Q.5D Take [address] (NORMODYNE) 1-25 mg by [facility] 100 MG 14:56: mouth 2 Medical tablet 08 (two) Center times daily. potassium 20190 Yes 10meq QD Take [address] chloride SA 1-25 mEq by [facility] (K-DUR,KLOR 14:56: mouth Medic al -CON) 10 08 daily. [place] MEQ tablet magnesium 2018-0 Yes 400mg Q.5D Take [address] oxide 1-25 mg by [facility] (MAG-OX) 14:56: mouth 2 Medica l 400 mg 08 (two) Center (241.3 mg times magnesium) daily. tablet metOLazone 0 Yes 2.5mg Take 2.[address] (ZAROXOLYN) 1-25 mg by [facility] 2.5 MG 14:56: mouth as Medical tablet 08 needed. [place] pravastatin 20190 Yes 80mg QD Take [address] [facility] (PRAVACHOL) 1-25 by mouth Luke s 80 MG 14:56: nightly. Medical tablet [address] [place] [address] montelukast 0 Yes 10mg Take [address] (SINGULAIR) 1-25 by mouth Luke s 10 mg 14:56: as needed. Medica l tablet 08 [place] tamsulosin 0 Yes .4mg QD Take 0.[address] (FLOMAX) 1-25 mg by [facility] 0.4 mg Cap 14:56: mouth Medica l 24 hr 08 daily. [place] capsule traMADol 2019-0 Yes 50mg Take [address] [facility] (ULTRAM) 50 1-25 by mouth Luke s mg tablet 14:56: every 6 Medic al 08 (six) Center hours as needed for Pain. fesoterodin 2019-0 Yes QD Take by [facility] (TOVIAZ) 1-25 [facility] 4 mg 24 hr 14:56: daily. Medic al tablet 08 [place] tacrolimus 2019-0 Yes .5mg Q.5D Take 0.[address] (PROGRAF) 1-25 mg by [facility] 0.5 MG 14:56: mouth 2 Medical capsule 08 (two) Center times daily. predniSONE 2019-0 Yes 5mg QD Take [address] (DELTASONE) 1-25 by mouth Luke s 5 MG tablet 14:56: daily. Medi jacquelyn [address] [place] [address] torsemide 20190 Yes 40mg QD Take [address] (DEMADEX) 1-25 by mouth [facility] 20 MG 14:56: daily. Medical tablet [address] [place] [address] MULTIVITAMI 0 Yes Take by [facility] N ORAL 1-25 mouth. [facility] 14:56: Medical 08 [place] labetalol 0 Yes 100mg Q.5D Take [address] (NORMODYNE) 1-25 mg by [facility] 100 MG 14:56: mouth 2 Medical tablet 08 (two) Center times daily. potassium 2019-0 Yes 10meq QD Take [address] chloride SA 1-25 mEq by [facility] (K-DUR,KLOR 14:56: mouth Medic al -CON) 10 08 daily. [place] MEQ tablet magnesium 2019-0 Yes 400mg Q.5D Take [address] oxide 1-25 mg by [facility] (MAG-OX) 14:56: mouth 2 Medica l 400 mg 08 (two) Center (241.3 mg times magnesium) daily. tablet metOLazone 2019-0 Yes 2.5mg Take 2.[address] (ZAROXOLYN) 1-25 mg by [facility] 2.5 MG 14:56: mouth as Medical tablet 08 needed. [place] pravastatin 0 Yes 80mg QD Take [address] (PRAVACHOL) 1-25 by mouth Luke s 80 MG 14:56: nightly. Medical tablet [address] [place] [address] montelukast 0 Yes 10mg Take [address] (SINGULAIR) 1-25 by mouth Luke s 10 mg 14:56: as needed. Medica l tablet 08 [place] tamsulosin 2019-0 Yes .4mg QD Take 0.4 [...] hr 14:56: daily. Medic al tablet 08 [place] amLODIPine 2018-0 Yes 5mg QD Take [address] (NORVASC) 5 1-25 by mouth Luke s MG tablet 14:56: daily. Medica l [address] [place] [address] folic acid 2018-0 Yes 1mg QD Take [address] (FOLVITE) 1 1-25 by mouth Luke s MG tablet 14:56: daily. Medica l [address] [place] [address] aspirin 81 2019-0 Yes 81mg QD Take [address] MG EC 1-25 by mouth [facility] tablet 14:56: daily. Medical [address] [place] [address] esomeprazol 2018-0 Yes 20mg Q.5D Take 20 [...] with Center breakfast. gabapentin 2019-0 Yes 300mg Q.[id number] Take [address] (NEURONTIN) 1-25 [id number] mg by L ukes 300 MG 14:56: [...] St -acetaminop 1-25 tablet by [place] (NORCO 14:56: mouth Medica l 5-325) 07 every 6 Center 5-325 mg (six) per tablet hours as needed for Pain. finasteride 2018-0 Yes 5mg QD Take [address] (PROSCAR) 5 1-25 by mouth Luke s mg tablet 14:56: daily. Medica l [address] [place] [address] amLODIPine 0 Yes 5mg QD Take [address] (NORVASC) 5 1-25 by mouth Luke s MG tablet 14:56: daily. Medica l [address] [place] [address] folic acid 0 Yes 1mg QD Take [address] (FOLVITE) 1 1-25 by mouth Luke s MG tablet 14:56: daily. Medica l [address] [place] [address] aspirin 81 2019-0 Yes 81mg QD Take [address] MG EC 1-25 by mouth [facility] tablet 14:56: daily. Medical Center esomeprazol 2019-0 Yes 20mg Q.5D Take [...] tablet 07 daily with Center breakfast. gabapentin 2019- Yes 300mg Q.[id number] Take [address] (NEURONTIN) 1-25 [id number] mg by L ukes 300 MG 14:56: [...] Mallorie nn 00 cap, 0 Refill(s) gabapentin 2017- Yes 300 mg = 1 M emoria 300 MG Oral 7-23 cap, PO, l Capsule 22:48: BID, # 28 Mallorie nn 00 cap, 0 Refill(s) gabapentin Yes 300 mg = 1 M emoria 300 MG Oral 7-23 cap, PO, l Capsule 22:48: BID, # 28 Mallorie nn 00 cap, 0 Refill(s) gabapentin 2018 Yes 300 mg = 1 M emoria 300 MG Oral 7-23 cap, PO, l Capsule 22:48: BID, # 28 Mallorie nn 00 cap, 0 Refill(s) gabapentin 2018- Yes 300 mg = 1 M emoria 300 MG Oral 7-23 cap, PO, l Capsule 22:48: BID, # 28 Mallorie nn 00 cap, 0 Refill(s) gabapentin 2018- Yes 300 mg = 1 M emoria 300 MG Oral 7-23 cap, PO, l Capsule 22:48: BID, # 28 Mallorie nn 00 cap, 0 Refill(s) gabapentin 2018- Yes 300 mg = 1 M emoria 300 MG Oral 7-23 cap, PO, l Capsule 22:48: BID, # 28 Mallorie nn 00 cap, 0 Refill(s) methocarbam No 1,000 mg = Memoria ol 500 mg 23 2 tab, PO, l oral tablet 22:44: [...] 50 mg = 1 Shine sarah hydrochlori -23 tab, PO, l de 50 MG 22:44: Q6H, X 7 Mallorie nn Oral Tablet 00 day, # 28 tab, 0 Refill(s) polyethylen No 17 gm, PO, Memoria e glycol -23 BID, X 14 l 3350 oral 22:44: day, # 12 Her aguirre powder for 00 ea, 0 reconstitut Refill(s) ion methocarbam No 1,000 mg = Memoria ol 500 mg -23 2 tab, PO, l oral tablet 22:44: Q8H, X 14 H ermann day, # 84 tab, 0 Refill(s) Lidocaine [...] tablet 22:44: Q8H, X 14 H ermann day, # 84 tab, 0 Refill(s) Lidocaine [...] tablet 22:44: Q8H, X 14 H ermann day, # 84 tab, 0 Refill(s) Lidocaine [...] tablet 22:44: Q8H, X 14 H ermann day, # 84 tab, 0 Refill(s) Lidocaine [...] tablet 22:44: Q8H, X 14 H ermann day, # 84 tab, 0 Refill(s) Lidocaine [...] Memor ia 7-23 Avoid l 04:07: grapefruit [place] 00 and grapefruit juice. (Same As: Prograf) Tacrolimus No Notes: Memor ia 7-23 Avoid l 04:07: grapefruit Sae 00 and grapefruit juice. (Same As: Prograf) Tacrolimus No Notes: Memor ia 7-23 Avoid l 04:07: grapefruit [place] 00 and grapefruit juice. (Same As: Prograf) Tacrolimus No Notes: Memor ia 7-23 Avoid l 04:07: grapefruit [place] 00 and grapefruit juice. (Same As: Prograf) Tacrolimus No Notes: Memor ia 7-23 Avoid l 04:07: grapefruit Sae 00 and grapefruit juice. (Same As: Prograf) Tacrolimus 0 No Notes: Memor ia 7-23 Avoid l 04:07: grapefruit Sae 00 and grapefruit juice. (Same As: Prograf) Tacrolimus 0 No Notes: Memor ia 7-23 Avoid l 04:07: grapefruit [place] 00 and grapefruit juice. (Same As: Prograf) Tacrolimus No Notes: Memor ia 7-23 Avoid l 04:07: grapefruit [place] 00 and grapefruit juice. (Same As: Prograf) docusate 20180 Yes daily. [facility] sodium 7-23 ity of (Colace) 00:00: [place] 100 mg 00 capsule [facility] docusate 2018-0 Yes daily. [facility] sodium 100 7-23 ity of mg/5 mL 00:00: [place] enem 00 [facility] docusate 2018-0 Yes daily. [facility] sodium 7-23 ity of (Colace) 00:00: [place] 100 mg 00 capsule [facility] docusate 2018-0 Yes daily. [facility] sodium 100 7-23 ity of mg/5 mL 00:00: [place] enem 00 [facility] Methadone No Notes: Memori a 7-22 (Same as: l 21:00: Dolophine) Methadone No Notes: Memori a 7-22 (Same as: l 21:00: Dolophine) Methadone No Notes: Memori a 7-22 (Same as: l 21:00: Dolophine) Methadone No Notes: Memori a 7-22 (Same as: l 21:00: Dolophine) Methadone No Notes: Memori a 7-22 (Same as: l 21:00: Dolophine) Methadone No Notes: Memori a 7-22 (Same as: l 21:00: Dolophine) Methadone No Notes: Memori a 7-22 (Same as: l 21:00: Dolophine) Methadone No Notes: Memori a 7-22 (Same as: l 21:00: Dolophine) Methadone No Notes: Memori a 7-22 (Same as: l 21:00: Dolophine) Prograf No Notes: Memoria 7-22 (Same As: l 13:00: Prograf) Prograf No Notes: Memoria 7-22 (Same As: l 13:00: Prograf) Prograf No Notes: Memoria 7-22 (Same As: l 13:00: Prograf) Prograf No Notes: Memoria 7-22 (Same As: l 13:00: Prograf) Prograf No Notes: Memoria 7-22 (Same As: l 13:00: Prograf) Prograf No Notes: Memoria 7-22 (Same As: l 13:00: Prograf) Prograf No Notes: Memoria 7-22 (Same As: l 13:00: Prograf) Prograf No Notes: Memoria 7-22 (Same As: l 13:00: Prograf) Prograf No Notes: Memoria 7-22 (Same As: l 13:00: Prograf) [place] remove No Notes: Memoria patch 7-22 Remove l 11:00: patch 12 Sae 00 hours after applicatio n each day. remove No Notes: Memoria patch 7-22 Remove l 11:00: patch 12 Sae 00 hours after applicatio n each day. remove No Notes: Memoria patch 7-22 Remove l 11:00: patch 12 [place] 00 hours after applicatio n each day. remove No Notes: Memoria patch 7-22 Remove l 11:00: patch 12 [place] 00 hours after applicatio n each day. remove No Notes: Memoria patch 7-22 Remove l 11:00: patch 12 Sae 00 hours after applicatio n each day. remove No Notes: Memoria patch 7-22 Remove l 11:00: patch 12 [place] 00 hours after applicatio n each day. remove No Notes: Memoria patch 7-22 Remove l 11:00: patch 12 Sae 00 hours after applicatio n each day. remove No Notes: Memoria patch 7-22 Remove l 11:00: patch 12 [place] 00 hours after applicatio n each day. remove No Notes: Memoria patch 7-22 Remove l 11:00: patch 12 Sae 00 hours after applicatio n each day. Prograf No Notes: Memoria 7-22 (Same As: l 01:00: Prograf) Sae 00 Prograf No Notes: Memoria 7-22 (Same As: l 01:00: Prograf) Sae Prograf No Notes: Memoria 7-22 (Same As: l 01:00: Prograf) [place] Prograf No Notes: Memoria 7-22 (Same As: l 01:00: Prograf) [place] Prograf No Notes: Memoria 7-22 (Same As: l 01:00: Prograf) Sae Prograf No Notes: Memoria 7-22 (Same As: l 01:00: Prograf) Sae Prograf 2018-0 No Notes: Memoria 7-22 (Same As: l 01:00: Prograf) [place] Prograf No Notes: Memoria 7-22 (Same As: l 01:00: Prograf) [place] Prograf No Notes: Memoria 7-22 (Same As: l 01:00: Prograf) Sae Lidocaine [...] 7-21 Route: l Transdermal 23:00: TOP, Q24H, [place] Patch 00 Drug form: FILM, Start date: 04/16/18 18:00:00 CDT, Duration: 30 day, Stop date: 05/15/18 18:00:00 CDT tramadol 2017-0 No Notes: Not Mem oria hydrochlori 7-21 to exceed l de 50 MG 23:00: 400mg/day. Her aguirre Oral Tablet 00 (Same As: Ultram) Lidocaine No 1 patch, Shine sarah 0.05 MG/MG 7-21 Route: l Transdermal 23:00: TOP, Q24H, [place] Patch 00 Drug form: FILM, Start date: 04/16/18 18:00:00 CDT, Duration: 30 day, Stop date: 05/15/18 18:00:00 CDT tramadol 2017-0 No Notes: Not Mem oria hydrochlori 7-21 to exceed l de 50 MG 23:00: 400mg/day. Her aguirre Oral Tablet 00 (Same As: Ultram) Lidocaine No 1 patch, Shine sarah 0.05 MG/MG 7-21 Route: l Transdermal 23:00: TOP, Q24H, [place] Patch 00 Drug form: FILM, Start date: 04/16/18 18:00:00 CDT, Duration: 30 day, Stop date: 05/15/18 18:00:00 CDT tramadol 2017-0 No Notes: Not Mem oria hydrochlori 7-21 to exceed l de 50 MG 23:00: 400mg/day. Her aguirre Oral Tablet 00 (Same As: Ultram) Lidocaine No 1 patch, Shine sarah 0.05 MG/MG 7-21 Route: l Transdermal 23:00: TOP, Q24H, Sae Patch 00 Drug form: FILM, Start date: 04/16/18 18:00:00 CDT, Duration: 30 day, Stop date: 05/15/18 18:00:00 CDT tramadol 2017-0 No Notes: Not Mem oria hydrochlori 7-21 to exceed l de 50 MG 23:00: 400mg/day. Her aguirre Oral Tablet 00 (Same As: Ultram) Lidocaine No 1 patch, Shine sarah 0.05 MG/MG 7-21 Route: l Transdermal 23:00: TOP, Q24H, [place] Patch 00 Drug form: FILM, Start date: 04/16/18 18:00:00 CDT, Duration: 30 day, Stop date: 05/15/18 18:00:00 CDT tramadol No Notes: Not Mem oria hydrochlori 7-21 to exceed l de 50 MG 23:00: 400mg/day. Her aguirre Oral Tablet 00 (Same As: Ultram) Lidocaine No 1 patch, Shine sarah 0.05 MG/MG 7- Route: l Transdermal 23:00: TOP, Q24H, [place] Patch 00 Drug form: FILM, Start date: 04/16/18 18:00:00 CDT, Duration: 30 day, Stop date: 05/15/18 18:00:00 CDT tramadol No Notes: Not Mem oria hydrochlori 7-21 to exceed l de 50 MG 23:00: 400mg/day. Her aguirre Oral Tablet 00 (Same As: Ultram) gabapentin No Notes: Memor ia 100 MG Oral 7-21 (Same as: l Capsule 22:00: Neurontin) Herm ruby gabapentin No Notes: Memor ia 100 MG Oral 7-21 (Same as: l Capsule 22:00: Neurontin) Herm ruby gabapentin No Notes: Memor ia 100 MG Oral 7-21 (Same as: l Capsule 22:00: Neurontin) Herm ruby gabapentin 20180 No Notes: Memor ia 100 MG Oral 7-21 (Same as: l Capsule 22:00: Neurontin) Herm ruby gabapentin 0 No Notes: Memor ia 100 MG Oral 7-21 (Same as: l Capsule 22:00: Neurontin) Herm ruby gabapentin 2018-0 No Notes: Memor ia 100 MG Oral 7-21 (Same as: l Capsule 22:00: Neurontin) Herm ruby gabapentin 0 No Notes: Memor ia 100 MG Oral 7-21 (Same as: l Capsule 22:00: Neurontin) Herm ruby gabapentin 2018-0 No Notes: Memor ia 100 MG Oral 7-21 (Same as: l Capsule 22:00: Neurontin) Herm ruby gabapentin No Notes: Memor ia 100 MG Oral 7-21 (Same as: l Capsule 22:00: Neurontin) Herm ruby Fosfomycin 2017- No Notes: Memor ia 7-20 (Same as: l 17:00: Monural) [place] 00 mix w/ 90 to 120 ml [...] ia 7-20 (Same as: l 17:00: Monural) [place] mix w/ 90 to 120 ml (3 to 4 ounces) of water and stir to dissolve. Do not use hot water. Take immediatel y after dissolving in water. Methadone No Notes: Memori a 7-20 (Same as: l 17:00: Dolophine) Fosfomycin No Notes: Memor ia 7-20 (Same as: l 17:00: Monural) [place] mix w/ 90 to 120 ml (3 to 4 ounces) of water and stir to dissolve. Do not use hot water. Take immediatel y after dissolving in water. Methadone No Notes: Memori a 7-20 (Same as: l 17:00: Dolophine) Fosfomycin No Notes: Memor ia 7-20 (Same as: l 17:00: Monural) [place] 00 mix w/ 90 to 120 ml [...] immediatel y after dissolving in water. Methadone 0 No Notes: Memori a 7-20 (Same as: l 17:00: Dolophine) [place] Fosfomycin No Notes: Memor ia 7-20 (Same as: l 17:00: Monural) Sae 00 mix w/ 90 to 120 ml (3 to 4 ounces) of water and stir to dissolve. Do not use hot water. Take immediatel y after dissolving in water. Methadone No Notes: Memori a 7-20 (Same as: l 17:00: Dolophine) [place] 00 Fosfomycin No Notes: Memor ia 7-20 (Same as: l 17:00: Monural) Sae 00 mix w/ 90 to 120 ml (3 to 4 ounces) of water and stir to dissolve. Do not use hot water. Take immediatel y after dissolving in water. Methadone No Notes: Memori a 7-20 (Same as: l 17:00: Dolophine) Sae 00 Fosfomycin No Notes: Memor ia 7-20 (Same as: l 17:00: Monural) [place] 00 mix w/ 90 to 120 ml (3 to 4 ounces) of water and stir to dissolve. Do not use hot water. Take immediatel y after dissolving in water. Methadone No Notes: Memori a 7-20 (Same as: l 17:00: Dolophine) [place] 00 Protonix 0 No Notes: Memoria 7-19 Tablet l 21:30: should not Sae 00 be chewed or crushed. (Same as: Protonix) Protonix No Notes: Memoria 7-19 Tablet l 21:30: should not Sae 00 be chewed or crushed. (Same as: Protonix) Protonix 0 No Notes: Memoria 7-19 Tablet l 21:30: should not [place] 00 be chewed or crushed. (Same as: Protonix) Protonix No Notes: Memoria 7-19 Tablet l 21:30: should not Sae 00 be chewed or crushed. (Same as: Protonix) Protonix 2018-0 No Notes: Memoria 7-19 Tablet l 21:30: [...] 7-19 (Same as: l 18:00: Dolophine) Sae Methadone No Notes: Memori a 7-19 (Same as: l 18:00: Dolophine) Sae 00 Methadone No Notes: Memori a 7-19 (Same as: l 18:00: Dolophine) [place] Methadone No Notes: Memori a 7-19 (Same as: l 18:00: Dolophine) [place] 00 Methadone No Notes: Memori a 7-19 (Same as: l 18:00: Dolophine) [place] Methadone No Notes: Memori a 7-19 (Same as: l 18:00: Dolophine) [place] Methadone No Notes: Memori a 7-19 (Same as: l 18:00: Dolophine) [place] Methadone No Notes: Memori a 7-19 (Same as: l 18:00: Dolophine) [place] Methadone No Notes: Memori a 7-19 (Same as: l 18:00: Dolophine) Simethicone No Notes: Shine sarah 7-19 (Same as: l 01:35: Mylicon) Simethicone No Notes: Shine sarah 7-19 (Same as: l 01:35: Mylicon) [place] Simethicone 2017-0 No Notes: Shine sarah 7-19 (Same as: l 01:35: Mylicon) [place] Simethicone No Notes: Shine sarah 7-19 (Same as: l 01:35: Mylicon) Sae Simethicone No Notes: Shine sarah 7-19 (Same as: l 01:35: Mylicon) [place] Simethicone No Notes: Shine sarah 7-19 (Same as: l 01:35: Mylicon) [place] Simethicone No Notes: Shine sarah 7-19 (Same as: l 01:35: Mylicon) [place] Simethicone No Notes: Shine sarah 7-19 (Same as: l 01:35: Mylicon) [place] Simethicone No Notes: Shine sarah 7-19 (Same as: l 01:35: Mylicon) Sae Isolyte S No Notes: Memori a PH-7.4 7-18 (Same as: l (Bolus) IV 15:44: Isolyte S He rmann 00 PH7.4) Isolyte S 0 No Notes: Memori a PH-7.4 7-18 (Same as: l (Bolus) IV 15:44: Isolyte S He rmann 00 PH7.4) Isolyte S No Notes: Memori a PH-7.4 7-18 (Same as: l (Bolus) IV 15:44: Isolyte S He rmann 00 PH7.4) Isolyte S 0 No Notes: Memori a PH-7.4 7-18 (Same as: l (Bolus) IV 15:44: Isolyte S He rmann 00 PH7.4) Isolyte S 0 No Notes: Memori a PH-7.4 7-18 (Same as: l (Bolus) IV 15:44: Isolyte S He rmann 00 PH7.4) Isolyte S 0 No Notes: Memori a PH-7.4 7-18 (Same as: l (Bolus) IV 15:44: Isolyte S He rmann 00 PH7.4) Isolyte S No Notes: Memori a PH-7.4 7-18 (Same as: l (Bolus) IV 15:44: Isolyte S He rmann 00 PH7.4) Isolyte S 0 No Notes: Memori a PH-7.4 7-18 (Same as: l (Bolus) IV 15:44: Isolyte S He rmann 00 PH7.4) Isolyte S No Notes: Memori a PH-7.4 7-18 (Same as: l (Bolus) IV 15:44: Isolyte S He rmann 00 PH7.4) multivitami 2018-0 No 1 tab, PO, Memoria n 7-18 Daily l 14:26: Sae 00 multivitami 2018-0 No 1 tab, PO, Memoria n 7-18 Daily l 14:26: [place] 00 multivitami 2017-0 No 1 tab, PO, Memoria n 7-18 Daily l 14:26: Sae 00 multivitami 2018-0 No 1 tab, PO, Memoria n 7-18 Daily l 14:26: [place] 00 multivitami 2018-0 No 1 tab, PO, Memoria n 7-18 Daily l 14:26: [place] 00 multivitami 2017-0 No 1 tab, PO, Memoria n 7-18 Daily l 14:26: [place] 00 multivitami 2018-0 No 1 tab, PO, Memoria n 7-18 Daily l 14:26: Sae 00 multivitami 2018-0 No 1 tab, PO, Memoria n 7-18 Daily l 14:26: [place] 00 multivitami 2018-0 No 1 tab, PO, Memoria n 7-18 Daily l 14:26: [place] 00 Isolyte S 0 No Notes: Memori a PH-7.4 7-18 (Same as: l (Bolus) IV 10:06: Isolyte S He rmann 00 PH 7.4) Isolyte S 0 No Notes: Memori a PH-7.4 7-18 (Same [...] Notes: Memoria 7-17 (Same l 22:21: as:Molasse [place] 00 s) molasses No Notes: Memoria 7-17 (Same l 22:21: as:Molasse Sae 00 s) molasses No Notes: Memoria 7-17 (Same l 22:21: as:Molasse Sae 00 s) molasses No Notes: Memoria 7-17 (Same l 22:21: as:Molasse [place] 00 s) molasses No Notes: Memoria 7-17 (Same l 22:21: as:Molasse [place] 00 s) molasses No Notes: Memoria 7-17 (Same l 22:21: as:Molasse Sae 00 s) molasses No Notes: Memoria 7-17 (Same l 22:21: as:Molasse [place] 00 s) molasses No Notes: Memoria 7-17 (Same l 22:21: as:Molasse [place] 00 s) molasses No Notes: Memoria 7-17 (Same l 22:21: as:Molasse [place] 00 s) Flomax No Notes: Memoria 7-17 (Same As: l 22:00: Flomax) [place] 00 "Do Not Crush" Flomax No Notes: Memoria 7-17 (Same As: l 22:00: Flomax) Sae 00 "Do Not Crush" Flomax No Notes: Memoria 7-17 (Same As: l 22:00: Flomax) [place] 00 "Do Not Crush" Flomax No Notes: Memoria 7-17 (Same As: l 22:00: Flomax) Sae 00 "Do Not Crush" Flomax No Notes: Memoria 7-17 (Same As: l 22:00: Flomax) [place] 00 "Do Not Crush" Flomax No Notes: Memoria 7-17 (Same As: l 22:00: Flomax) Sae 00 "Do Not Crush" Flomax No Notes: Memoria 7-17 (Same As: l 22:00: Flomax) [place] 00 "Do Not Crush" Flomax No Notes: Memoria 7-17 (Same As: l 22:00: Flomax) [place] 00 "Do Not Crush" Flomax No Notes: Memoria 7-17 (Same As: l 22:00: Flomax) Sae 00 "Do Not Crush" Dulcolax No Notes: Memoria Laxative 7-17 (Same As: l 21:27: Dulcolax, [place] 00 Bisco-Lax) Dulcolax No Notes: Memoria Laxative 7-17 (Same As: l 21:27: Dulcolax, [place] 00 Bisco-Lax) Dulcolax No Notes: Memoria Laxative 7-17 (Same As: l 21:27: Dulcolax, Sae 00 Bisco-Lax) Dulcolax No Notes: Memoria Laxative 7-17 (Same As: l 21:27: Dulcolax, Sae 00 Bisco-Lax) Dulcolax No Notes: Memoria Laxative 7-17 (Same As: l 21:27: Dulcolax, [place] 00 Bisco-Lax) Dulcolax No Notes: Memoria Laxative 7-17 (Same As: l 21:27: Dulcolax, [place] 00 Bisco-Lax) Dulcolax No Notes: Memoria Laxative [...] patch 7-17 Remove l 19:05: patch 12 [place] 00 hours after applicatio n each day. remove No Notes: Memoria patch 7-17 Remove l 19:05: patch 12 [place] 00 hours after applicatio n each day. remove No Notes: Memoria patch 7-17 Remove l 19:05: patch 12 Sae 00 hours after applicatio n each day. remove No Notes: Memoria patch 7-17 Remove l 19:05: patch 12 [place] 00 hours after applicatio n each day. remove No Notes: Memoria patch 7-17 Remove l 19:05: patch 12 [place] 00 hours after applicatio n each day. remove No Notes: Memoria patch 7-17 Remove l 19:05: patch 12 Sae 00 hours after applicatio n each day. remove No Notes: Memoria patch 7-17 Remove l 19:05: patch 12 Sae 00 hours after applicatio n each day. Fosfomycin 2018-0 No Notes: Memor ia 7-17 (Same as: l 17:00: Monural) [place] 00 mix w/ 90 to 120 ml [...] new patch" Fosfomycin No Notes: Memor ia 7- (Same as: l 17:00: Monural) [place] 00 mix w/ 90 to 120 ml (3 to 4 ounces) of water and stir to dissolve. Do not use hot water. Take immediatel y after dissolving in water. Lidocaine No Notes: Memori a Hydrochlori 7 Apply only l de 0.05 17:00: once for Brent n MG/MG 00 up to 12 Transdermal hours in a Patch 24-hour [Lidoderm] period (12 hours on and 12 hours off). (Same as: Lidoderm) "Remove old patch before applicatio n of new patch" Fosfomycin No Notes: Memor ia 7 (Same as: l 17:00: Monural) [place] 00 mix w/ 90 to 120 ml (3 to 4 ounces) of water and stir to dissolve. Do not use hot water. Take immediatel y after dissolving in water. Lidocaine No Notes: Memori a Hydrochlori 717 Apply only l de 0.05 17:00: once for Brent n MG/MG 00 up to 12 Transdermal hours in a Patch 24-hour [Lidoderm] period (12 hours on and 12 hours off). (Same as: Lidoderm) "Remove old patch before applicatio n of new patch" Fosfomycin No Notes: Memor ia 7 (Same as: l 17:00: Monural) [place] 00 mix w/ 90 to 120 ml [...] new patch" Fosfomycin No Notes: Memor ia 7-17 (Same as: l 17:00: Monural) [place] 00 mix w/ 90 to 120 ml [...] new patch" Fosfomycin No Notes: Memor ia 7-17 (Same as: l 17:00: Monural) [place] 00 mix w/ 90 to 120 ml [...] new patch" Fosfomycin No Notes: Memor ia 7-17 (Same as: l 17:00: Monural) [place] 00 mix w/ 90 to 120 ml [...] new patch" Fosfomycin No Notes: Memor ia 7-17 (Same as: l 17:00: Monural) [place] 00 mix w/ 90 to 120 ml [...] new patch" Fosfomycin No Notes: Memor ia 7-17 (Same as: l 17:00: Monural) [place] 00 mix w/ 90 to 120 ml [...] l de 5 MG 15:29: Roxicodone Herm ruby Oral Tablet 00 ) Oxycodone No Notes: Memori a Hydrochlori 7-17 (Same as: l de 5 MG 15:29: Roxicodone Herm ruby Oral Tablet 00 ) Oxycodone No Notes: Memori a Hydrochlori 7-17 (Same as: l de 5 MG 15:29: Roxicodone Herm ruby Oral Tablet 00 ) Oxycodone No Notes: Memori a Hydrochlori 7-17 (Same as: l de 5 MG 15:29: Roxicodone Herm ruby Oral Tablet 00 ) Oxycodone 2018-0 No Notes: Memori a Hydrochlori 7-17 (Same as: l de 5 MG 15:29: Roxicodone Herm ruby Oral Tablet 00 ) Oxycodone 0 No Notes: Memori a Hydrochlori 7-17 (Same as: l de 5 MG 15:29: Roxicodone Herm ruby Oral Tablet 00 ) Oxycodone 0 No Notes: Memori a Hydrochlori 7-17 (Same as: l de 5 MG 15:29: Roxicodone Herm ruby Oral Tablet ) Oxycodone No Notes: Memori a Hydrochlori 7-17 (Same as: l de 5 MG 15:29: Roxicodone Herm ruby Oral Tablet ) Oxycodone No Notes: Memori a Hydrochlori 7-17 (Same as: l de 5 MG 15:29: Roxicodone Herm ruby Oral Tablet ) gabapentin No Notes: Memor ia 100 MG Oral 7-16 (Same as: l Capsule 21:00: Neurontin) Herm ruby gabapentin No Notes: Memor ia 100 MG Oral 7-16 (Same as: l Capsule 21:00: Neurontin) Herm ruby gabapentin No Notes: Memor ia 100 MG Oral 7-16 (Same as: l Capsule 21:00: Neurontin) Herm ruby gabapentin 0 No Notes: Memor ia 100 MG Oral 7-16 (Same as: l Capsule 21:00: Neurontin) Herm ruby gabapentin 2017-0 No Notes: Memor ia 100 MG Oral 7-16 (Same as: l Capsule 21:00: Neurontin) Herm ruby gabapentin 2017-0 No Notes: Memor ia 100 MG Oral 7-16 (Same as: l Capsule 21:00: Neurontin) Herm ruby gabapentin 2017-0 No Notes: Memor ia 100 MG Oral 7-16 (Same as: l Capsule 21:00: Neurontin) Herm ruby gabapentin 2018-0 No Notes: Memor ia 100 MG Oral 7-16 (Same as: l Capsule 21:00: Neurontin) Herm ruby gabapentin 2017-0 No Notes: Memor ia 100 MG Oral 7-16 (Same as: l Capsule 21:00: Neurontin) Herm ruby 00 Flomax 2017- No Notes: Memoria 7-16 (Same As: l 13:30: Flomax) [place] 00 "Do Not Crush" Flomax No Notes: Memoria 7-16 (Same As: l 13:30: Flomax) Sae 00 "Do Not Crush" Flomax No Notes: Memoria 7-16 (Same As: l 13:30: Flomax) Sae 00 "Do Not Crush" Flomax No Notes: Memoria 7-16 (Same As: l 13:30: Flomax) [place] 00 "Do Not Crush" Flomax No Notes: Memoria 7-16 (Same As: l 13:30: Flomax) Sae 00 "Do Not Crush" Flomax No Notes: Memoria 7-16 (Same As: l 13:30: Flomax) [place] 00 "Do Not Crush" Flomax No Notes: Memoria 7-16 (Same As: l 13:30: Flomax) Sae 00 "Do Not Crush" Flomax No Notes: Memoria 7-16 (Same As: l 13:30: Flomax) Sae 00 "Do Not Crush" Flomax No Notes: Memoria 7-16 (Same As: l 13:30: Flomax) [place] 00 "Do Not Crush" sennosides, No Notes: Shine sarah FCI 7-15 (Same as: l 22:00: Senokot) [place] 00 Miralax No Notes: Memoria 7-15 Dissolve l 22:00: in 8 oz of [place] 00 water or juice. (Same as: Miralax) sennosides, No Notes: Shine sarah FCI 7-15 (Same as: l 22:00: Senokot) [place] 00 Miralax No Notes: Memoria 7-15 Dissolve l 22:00: in 8 oz of Sae 00 water or juice. (Same as: Miralax) sennosides, No Notes: Shine sarah FCI 7-15 (Same as: l 22:00: Senokot) Sae 00 Miralax No Notes: Memoria 7-15 Dissolve l 22:00: in 8 oz of Sae 00 water or juice. (Same as: Miralax) sennosides, No Notes: Shine sarah FCI 7-15 (Same as: l 22:00: Senokot) Sae 00 Miralax No Notes: Memoria 7-15 Dissolve l 22:00: in 8 oz of Sae 00 water or juice. (Same as: Miralax) sennosides, No Notes: Shine sarah FCI 7-15 (Same as: l 22:00: Senokot) Sae 00 Miralax No Notes: Memoria 7-15 Dissolve l 22:00: in 8 oz of [place] 00 water or juice. (Same as: Miralax) sennosides, No Notes: Shine sarah FCI 7-15 (Same as: l 22:00: Senokot) Sae 00 Miralax No Notes: Memoria 7-15 Dissolve l 22:00: in 8 oz of [place] 00 water or juice. (Same as: Miralax) sennosides, No Notes: Shine sarah FCI 7-15 (Same as: l 22:00: Senokot) [place] 00 Miralax No Notes: Memoria 7-15 Dissolve l 22:00: in 8 oz of [place] 00 water or juice. (Same as: Miralax) sennosides, No Notes: Shine sarah FCI 7-15 (Same as: l 22:00: Senokot) [place] 00 Miralax No Notes: Memoria 7-15 Dissolve l 22:00: in 8 oz of Sae 00 water or juice. (Same as: Miralax) sennosides, No Notes: Shine sarah FCI 7-15 (Same as: l 22:00: Senokot) [place] 00 Miralax No Notes: Memoria 7-15 Dissolve l 22:00: in 8 oz of Sae 00 water or juice. (Same as: Miralax) Oxycodone No Notes: Memori a Hydrochlori 7-15 (Same as: l de 5 MG 17:00: Roxicodone Herm ruby Oral Tablet ) Bupivacaine No Notes: Shine sarah liposome 7-15 (Same as: l 17:00: Exparel) [place] 00 NOT FOR IV use Postoperat tricia [...] l de 5 MG 17:00: Roxicodone Herm ruby Oral Tablet ) Bupivacaine No Notes: Shine [...] l de 5 MG 17:00: Roxicodone Herm ruby Oral Tablet ) Bupivacaine No Notes: Shine sarah liposome 7-15 (Same as: l 17:00: Exparel) [place] 00 NOT FOR IV use Postoperat tricia [...] l de 5 MG 17:00: Roxicodone Herm ruby Oral Tablet ) Bupivacaine No Notes: Shine [...] l de 5 MG 17:00: Roxicodone Herm ruby Oral Tablet ) Bupivacaine No Notes: Shine [...] l de 5 MG 17:00: Roxicodone Herm ruby Oral Tablet ) Bupivacaine No Notes: Shine [...] l de 5 MG 17:00: Roxicodone Herm ruby Oral Tablet ) Bupivacaine No Notes: Shine sarah liposome 7-15 (Same as: l 17:00: Exparel) [place] 00 NOT FOR IV use Postoperat tricia [...] l de 5 MG 17:00: Roxicodone Herm ruby Oral Tablet ) Bupivacaine No Notes: Shine saarh liposome 7-15 (Same as: l 17:00: Exparel) [...] l de 5 MG 17:00: Roxicodone Herm ruby Oral Tablet 00 ) Bupivacaine No Notes: [...] As: l 16:54: Dulcolax, Sae 00 Bisco-Lax) Dulcolax No Notes: Memoria Laxative 7-15 (Same As: l 16:54: Dulcolax, [place] 00 Bisco-Lax) Dulcolax No Notes: Memoria Laxative 7-15 (Same As: l 16:54: Dulcolax, [place] 00 Bisco-Lax) Dulcolax No Notes: Memoria Laxative 7-15 (Same As: l 16:54: Dulcolax, [place] 00 Bisco-Lax) Dulcolax No Notes: Memoria Laxative 7-15 (Same As: l 16:54: Dulcolax, [place] 00 Bisco-Lax) Dulcolax No Notes: Memoria Laxative 7-15 (Same As: l 16:54: Dulcolax, Sae 00 Bisco-Lax) Dulcolax No Notes: Memoria Laxative 7-15 (Same As: l 16:54: Dulcolax, [place] 00 Bisco-Lax) Dulcolax No Notes: Memoria Laxative 7-15 (Same As: l 16:54: Dulcolax, Sae 00 Bisco-Lax) Dulcolax No Notes: Memoria Laxative 7-15 (Same As: l 16:54: Dulcolax, Sae 00 Bisco-Lax) Alprazolam No Notes: Memor ia 0.5 MG Oral 7-15 With food l Tablet 16:37: or milk Sae [Xanax] 00 (Same as: Xanax) Alprazolam No Notes: Memor ia 0.5 MG Oral 7-15 With food l Tablet 16:37: or milk Sae [Xanax] 00 (Same as: Xanax) Alprazolam No Notes: Memor ia 0.5 MG Oral 7-15 With food l Tablet 16:37: or milk [place] [Xanax] 00 (Same as: Xanax) Alprazolam No Notes: Memor ia 0.5 MG Oral 7-15 With food l Tablet 16:37: or milk [place] [Xanax] 00 (Same as: Xanax) Alprazolam No Notes: Memor ia 0.5 MG Oral 7-15 With food l Tablet 16:37: or milk [place] [Xanax] 00 (Same as: Xanax) Alprazolam No Notes: Memor ia 0.5 MG Oral 7-15 With food l Tablet 16:37: or milk [place] [Xanax] 00 (Same as: Xanax) Alprazolam No Notes: Memor ia 0.5 MG Oral 7-15 With food l Tablet 16:37: or milk Sae [Xanax] 00 (Same as: Xanax) Alprazolam No Notes: Memor ia 0.5 MG Oral 7-15 With food l Tablet 16:37: or milk [place] [Xanax] 00 (Same as: Xanax) Alprazolam No Notes: Memor ia 0.5 MG Oral 7-15 With food l Tablet 16:37: or milk Sae [Xanax] 00 (Same as: Xanax) Aspirin 81 No Notes: Do Me moria MG Enteric 7-15 not crush l Coated 14:00: or chew. [place] Tablet 00 (Same As: Ecotrin) sennosides, No Notes: Shine sarah FCI 7-15 (Same as: l 14:00: Senokot) [place] 00 Miralax No Notes: Memoria 7-15 Dissolve l 14:00: in 8 oz of [place] 00 water or juice. (Same as: Miralax) Imdur No Notes: Memoria 7-15 (Same l 14:00: as:Imdur) [place] 00 "Do Not Crush" Take on empty stomach/ full glass of water. Do not crush torsemide No Notes: Memori a 7-15 (Same As: l 14:00: Demadex) [place] 00 Aspirin 81 No Notes: Do Me moria MG Enteric 7-15 not crush l Coated 14:00: or chew. [place] Tablet 00 (Same As: Ecotrin) sennosides, No Notes: Shine sarah FCI 7-15 (Same as: l 14:00: Senokot) [place] 00 Miralax No Notes: Memoria 7-15 Dissolve l 14:00: in 8 oz of [place] 00 water or juice. (Same as: Miralax) Imdur No Notes: Memoria 7-15 (Same l 14:00: as:Imdur) [place] 00 "Do Not Crush" Take on empty stomach/ full glass of water. Do not crush torsemide No Notes: Memori a 7-15 (Same As: l 14:00: Demadex) [place] 00 Aspirin 81 No Notes: Do Me moria MG Enteric 7-15 not crush l Coated 14:00: or chew. [place] Tablet 00 (Same As: Ecotrin) sennosides, No Notes: Shine sarah FCI 7-15 (Same as: l 14:00: Senokot) Sae 00 Miralax No Notes: Memoria 7-15 Dissolve l 14:00: in 8 oz of [place] 00 water or juice. (Same as: Miralax) Imdur No Notes: Memoria 7-15 (Same l 14:00: as:Imdur) [place] 00 "Do Not Crush" Take on empty stomach/ full glass of water. Do not crush torsemide 2017- No Notes: Memori a 7-15 (Same As: l 14:00: Demadex) [place] 00 Aspirin 81 No Notes: Do Me moria MG Enteric 7-15 not crush l Coated 14:00: or chew. [place] Tablet 00 (Same As: Ecotrin) sennosides, No Notes: Shine sarah [facility]CI 7-15 (Same as: l 14:00: Senokot) Sae [...] a 7-15 (Same As: l 14:00: Demadex) [place] 00 Aspirin 81 No Notes: Do Me moria MG Enteric 7-15 not crush l Coated 14:00: or chew. Sae Tablet 00 (Same As: Ecotrin) sennosides, No Notes: Shine sarah [facility]CI 7-15 (Same as: l 14:00: Senokot) [place] 00 Miralax No Notes: Memoria 7-15 Dissolve l 14:00: in 8 oz of [place] 00 water or juice. (Same as: Miralax) Imdur No Notes: Memoria 7-15 (Same l 14:00: as:Imdur) Sae 00 "Do Not Crush" Take on empty stomach/ full glass of water. Do not crush torsemide No Notes: Memori a 7-15 (Same As: l 14:00: Demadex) [place] 00 Aspirin 81 No Notes: Do Me moria MG Enteric 7-15 not crush l Coated 14:00: or chew. [place] Tablet 00 (Same As: Ecotrin) sennosides, No Notes: Shine sarah FCI 7-15 (Same as: l 14:00: Senokot) [place] 00 Miralax No Notes: Memoria 7-15 Dissolve l 14:00: in 8 oz of [place] 00 water or juice. (Same as: Miralax) Imdur No Notes: Memoria 7-15 (Same l 14:00: as:Imdur) [place] 00 "Do Not Crush" Take on empty stomach/ full glass of water. Do not crush torsemide No Notes: Memori a 7-15 (Same As: l 14:00: Demadex) Sae 00 Aspirin 81 No Notes: Do Me moria MG Enteric 7-15 not crush l Coated 14:00: or chew. [place] Tablet (Same As: Ecotrin) sennosides, No Notes: Shine sarah [facility]CI 7-15 (Same as: l 14:00: Senokot) Sae [...] not crush l Coated 14:00: or chew. [place] Tablet 00 (Same As: Ecotrin) sennosides, No Notes: Shine sarah FCI 7-15 (Same as: l 14:00: Senokot) Sae [...] a 7-15 (Same As: l 14:00: Demadex) [place] 00 Aspirin 81 No Notes: Do Me moria MG Enteric 7-15 not crush l Coated 14:00: or chew. [place] Tablet 00 (Same As: Ecotrin) sennosides, No Notes: Shine sarah [facility]CI 7-15 (Same as: l 14:00: Senokot) Sae 00 Miralax No Notes: Memoria 7-15 Dissolve l 14:00: in 8 oz of [place] 00 water or juice. (Same as: Miralax) [...] milk Sae [Xanax] 00 (Same as: Xanax) Alprazolam No Notes: Memor ia 0.5 MG Oral 7-15 With food l Tablet 03:31: or milk Sae [Xanax] 00 (Same as: Xanax) Alprazolam No Notes: Memor ia 0.5 MG Oral 7-15 With food l Tablet 03:31: or milk [place]ae [Xanax] 00 (Same as: Xanax) Alprazolam No Notes: Memor ia 0.5 MG Oral 7-15 With food l Tablet 03:31: or milk [place] [Xanax] 00 (Same as: Xanax) Alprazolam No Notes: Memor ia 0.5 MG Oral 7-15 With food l Tablet 03:31: or milk [place] [Xanax] 00 (Same as: Xanax) Alprazolam No Notes: Memor ia 0.5 MG Oral 7-15 With food l Tablet 03:31: or milk [place] [Xanax] 00 (Same as: Xanax) Alprazolam No Notes: Memor ia 0.5 MG Oral 7-15 With food l Tablet 03:31: or milk [place] [Xanax] 00 (Same as: Xanax) Alprazolam No Notes: Memor ia 0.5 MG Oral 7-15 With food l Tablet 03:31: or milk [place] [Xanax] 00 (Same as: Xanax) Alprazolam No Notes: Memor ia 0.5 MG Oral 7-15 With food l Tablet 03:31: or milk [place] [Xanax] 00 (Same as: Xanax) Pravastatin No [...] DS tablet l MG / 22:28: = [place] Trimethopri 00 trimethopr m 160 MG im [...] DS tablet l MG / 22:28: = [place] Trimethopri 00 trimethopr m 160 MG im [...] DS tablet l MG / 22:28: = [place] Trimethopri 00 trimethopr m 160 MG im 160mg + Oral Tablet sulfametho [Bactrim] xazole 800 mg Dose based on trimethopr im component On empty stomach with a glass of water. (Same As: Bactrim DS, Septra DS) Sulfamethox No Notes: One Memoria azole 800 7-14 DS tablet l MG / 22:28: = [place] Trimethopri 00 trimethopr m 160 MG im [...] (Same as: l MG Oral 22:00: Colace) [place] Capsule 00 (Do Not [Colace] Crush) Docusate No Notes: Memoria Sodium 100 7-14 (Same as: l MG Oral 22:00: Colace) Sae Capsule 00 (Do Not [Colace] Crush) Docusate No Notes: Memoria Sodium 100 7-14 (Same as: l MG Oral 22:00: Colace) Sae Capsule 00 (Do Not [Colace] Crush) Docusate No Notes: Memoria Sodium 100 7-14 (Same as: l MG Oral 22:00: Colace) [place] Capsule 00 (Do Not [Colace] Crush) Docusate No Notes: Memoria Sodium 100 7-14 (Same as: l MG Oral 22:00: Colace) Sae Capsule 00 (Do Not [Colace] Crush) Docusate No Notes: Memoria Sodium 100 7-14 (Same as: l MG Oral 22:00: Colace) Sae Capsule 00 (Do Not [Colace] Crush) Docusate No Notes: Memoria Sodium 100 7-14 (Same as: l MG Oral 22:00: Colace) [place] Capsule 00 (Do Not [Colace] Crush) Docusate No Notes: Memoria Sodium 100 7-14 (Same as: l MG Oral 22:00: Colace) Sae Capsule 00 (Do Not [Colace] Crush) Docusate No Notes: Memoria Sodium 100 7-14 (Same as: l MG Oral 22:00: Colace) [place] Capsule 00 (Do Not [Colace] Crush) Oxycodone No Notes: Memori a Hydrochlori 7-14 (Same as: l de 5 MG 21:00: Roxicodone Herm ruby Oral Tablet 00 ) Oxycodone No Notes: Memori a Hydrochlori 7-14 (Same as: l de 5 MG 21:00: Roxicodone Herm ruby Oral Tablet 00 ) Oxycodone No Notes: Memori a Hydrochlori 7-14 (Same as: l de 5 MG 21:00: Roxicodone Herm ruby Oral Tablet 00 ) Oxycodone No Notes: Memori a Hydrochlori 7-14 (Same as: l de 5 MG 21:00: Roxicodone Herm ruby Oral Tablet 00 ) Oxycodone No Notes: Memori a Hydrochlori 7-14 (Same as: l de 5 MG 21:00: Roxicodone Herm ruby Oral Tablet 00 ) Oxycodone No Notes: Memori a Hydrochlori 7-14 (Same as: l de 5 MG 21:00: Roxicodone Herm ruby Oral Tablet 00 ) Oxycodone No Notes: Memori a Hydrochlori 7-14 (Same as: l de 5 MG 21:00: Roxicodone Herm ruby Oral Tablet 00 ) Oxycodone No Notes: Memori a Hydrochlori 7-14 (Same as: l de 5 MG 21:00: Roxicodone Herm ruby Oral Tablet 00 ) Oxycodone No Notes: Memori a Hydrochlori 7-14 (Same as: l de 5 MG 21:00: Roxicodone Herm ruby Oral Tablet 00 ) Lasix No Notes: Memoria 7-14 (Same as: l 17:05: Lasix) Sae 00 Lasix No Notes: Memoria 7-14 (Same as: l 17:05: Lasix) Sae 00 Lasix No Notes: Memoria 7-14 (Same as: l 17:05: Lasix) Lasix No Notes: Memoria 7-14 (Same as: l 17:05: Lasix) Lasix No Notes: Memoria 7-14 (Same as: l 17:05: Lasix) Lasix No Notes: Memoria 7-14 (Same as: l 17:05: Lasix) Lasix No Notes: Memoria 7-14 (Same as: l 17:05: Lasix) Lasix No Notes: Memoria 7-14 (Same as: l 17:05: Lasix) Lasix No Notes: Memoria 7-14 (Same as: l 17:05: Lasix) Oxycodone No Notes: Memori a Hydrochlori 7-14 (Same as: l de 5 MG 17:02: Roxicodone Herm ruby Oral Tablet ) Oxycodone No Notes: Memori a Hydrochlori 7-14 (Same as: l de 5 MG 17:02: Roxicodone Herm ruby Oral Tablet ) Oxycodone No Notes: Memori a Hydrochlori 7-14 (Same as: l de 5 MG 17:02: Roxicodone Herm ruby Oral Tablet ) Oxycodone No Notes: Memori a Hydrochlori 7-14 (Same as: l de 5 MG 17:02: Roxicodone Herm ruby Oral Tablet ) Oxycodone No Notes: Memori a Hydrochlori 7-14 (Same as: l de 5 MG 17:02: Roxicodone Herm ruby Oral Tablet ) Oxycodone No Notes: Memori a Hydrochlori 7-14 (Same as: l de 5 MG 17:02: Roxicodone Herm ruby Oral Tablet ) Oxycodone No Notes: Memori a Hydrochlori 7-14 (Same as: l de 5 MG 17:02: Roxicodone Herm ruby Oral Tablet 00 ) Oxycodone 2018-0 No Notes: Memori a Hydrochlori 7-14 (Same as: l de 5 MG 17:02: Roxicodone Herm ruby Oral Tablet 00 ) Oxycodone 2018-0 No Notes: Memori a Hydrochlori 7-14 (Same as: l de 5 MG 17:02: Roxicodone Herm ruby Oral Tablet 00 ) torsemide 2018-0 No 20 mg, Memori a [...] Memori a 7-14 Route: l 17:00: IVPB, [place] 00 ONCE, Dosing Weight 87.273, kg, Priority: NOW, Start date: 04/09/18 12:00:00 CDT, Stop date: 04/09/18 12:00:00 CDT torsemide 2018-0 No 20 mg, Memori a 7-14 Route: l 17:00: IVPB, [place] 00 ONCE, Dosing Weight 87.273, kg, Priority: [...] Memori a 7-14 Route: l 17:00: IVPB, [place] 00 ONCE, Dosing Weight 87.273, kg, Priority: NOW, Start date: 04/09/18 12:00:00 CDT, Stop date: 04/09/18 12:00:00 CDT torsemide 2018-0 No 20 mg, Memori a 7-14 Route: l 17:00: IVPB, Sae 00 ONCE, Dosing Weight 87.273, kg, Priority: NOW, Start date: 04/09/18 12:00:00 CDT, Stop date: 04/09/18 12:00:00 CDT Dulcolax 0 No Notes: Memoria Laxative 7-14 (Same As: l 15:36: Dulcolax, Sae 00 Bisco-Lax) Dulcolax 0 No Notes: Memoria Laxative 7-14 (Same As: l 15:36: Dulcolax, [place] 00 Bisco-Lax) Dulcolax 0 No Notes: Memoria Laxative 7-14 (Same As: l 15:36: Dulcolax, [place] 00 Bisco-Lax) Dulcolax 0 No Notes: Memoria Laxative 7-14 (Same As: l 15:36: Dulcolax, Sae 00 Bisco-Lax) Dulcolax 0 No Notes: Memoria Laxative 7-14 (Same As: l 15:36: Dulcolax, Sae 00 Bisco-Lax) Dulcolax 0 No Notes: Memoria Laxative 7-14 (Same As: l 15:36: Dulcolax, [place] 00 Bisco-Lax) Dulcolax 2018-0 No Notes: Memoria Laxative 7-14 (Same As: l 15:36: Dulcolax, Sae 00 Bisco-Lax) Dulcolax 0 No Notes: Memoria Laxative 7-14 (Same As: l 15:36: Dulcolax, [place] 00 Bisco-Lax) Dulcolax 0 No Notes: [facility] Laxative 7-14 (Same As: l 15:36: Dulcolax, [place] 00 Bisco-Lax) Labetalol 0 No Notes: Memori a 7-14 With food. l 15:29: (Same Sae 00 as:Trandat e, Normodyne) Labetalol 0 No Notes: Memori a 7-14 With food. l 15:29: (Same Sae 00 as:Trandat e, Normodyne) Labetalol No Notes: Memori a 7-14 With food. l 15:29: (Same Sae 00 as:Trandat e, Normodyne) Labetalol 0 No Notes: Memori a 7-14 With food. l 15:29: (Same Sae 00 as:Trandat e, Normodyne) Labetalol 0 No Notes: Memori a 7-14 With food. l 15:29: (Same [place] 00 as:Trandat e, Normodyne) Labetalol 0 No Notes: Memori a 7-14 With food. l 15:29: (Same Sae 00 as:Trandat e, Normodyne) Labetalol 0 No Notes: Memori a 7-14 With food. l 15:29: (Same Sae 00 as:Trandat e, Normodyne) Labetalol 0 No Notes: Memori a 7-14 With food. l 15:29: (Same [place] 00 as:Trandat e, Normodyne) Labetalol 0 No Notes: Memori a 7-14 With food. l 15:29: (Same [place] 00 as:Trandat e, Normodyne) Insulin 2017-0 No 60 units) Shine sarah regular 7-14 WASTE: F/P l 15:22: - Black; E Sae 00 - Municipal Trash Bin Stable for 28 days at room [facility] e Expires in days from ____Date Glucagon [...] WASTE: F/P l 15:22: - Black; E [place] [employer] Trash Bin Stable for 28 days at room [facility] e Expires in days from ____Date Glucagon 2018-0 No 1 mg, Memoria 7-14 Route: IM, l 15:22: Drug form: [place] 00 PDR/INJ, PRN, Dosing Weight 87.273, kg, [...] Bin Stable for 28 days at room [facility] e Expires in days from ____Date Glucagon [...] WASTE: F/P l 15:22: - Black; E [place] Trash Bin Stable for 28 days at room [facility] e Expires in days from ____Date Glucagon [...] 10:21:00 CDT Insulin 2018-0 No 60 units) Sihne sarah regular 7-14 WASTE: F/P l 15:22: [...] WASTE: F/P l 15:22: - Black; E [place] 00 [place] Trash Bin Stable for 28 days at room [facility] e Expires in days from ____Date Glucagon [...] WASTE: F/P l 15:22: - Black; E [place] 00 - Municipal Trash Bin Stable for 28 days at room [facility] e Expires in days from ____Date Glucagon 2018-0 No 1 mg, Memoria 7-14 Route: IM, l 15:22: Drug form: [place] 00 PDR/INJ, PRN, Dosing Weight 87.273, kg, [...] WASTE: F/P l 15:22: - Black; E [place] 00 - Municipal Trash Bin Stable for 28 days at room [facility] e Expires in days from ____Date Glucagon [...] WASTE: F/P l 15:22: - Black; E Sae 00 - Municipal Trash Bin Stable for 28 days at room [facility] e Expires in days from ____Date Glucagon 2018-0 No 1 mg, Memoria 7-14 Route: IM, l 15:22: Drug form: [place] 00 PDR/INJ, PRN, Dosing Weight 87.273, kg, PRN Blood Glucose Results, Start date: 04/09/18 10:22:00 CDT, Duration: 30 day, Stop date: 05/09/18 10:21:00 CDT Dextrose 2017- No 25 gm, 50 Shine sarah 50% Syringe 7-14 mL, Route: l 15:22: IVP, Drug Form: INJ, Dosing Weight 87.273, kg, PRN, PRN Blood Glucose Results, Start date: 04/09/18 10:22:00 CDT, Duration: 30 day, Stop date: 05/09/18 10:21:00 CDT Oxycodone No Notes: Memori a Hydrochlori 7-14 (Same as: l de 5 MG 14:31: Roxicodone Herm ruby Oral Tablet 00 ) Oxycodone No Notes: Memori a Hydrochlori 7-14 (Same as: l de 5 MG 14:31: Roxicodone Herm ruby Oral Tablet 00 ) Oxycodone No Notes: Memori a Hydrochlori 7-14 (Same as: l de 5 MG 14:31: Roxicodone Herm ruby Oral Tablet 00 ) Oxycodone No Notes: Memori a Hydrochlori 7-14 (Same as: l de 5 MG 14:31: Roxicodone Herm ruby Oral Tablet 00 ) Oxycodone No Notes: Memori a Hydrochlori 7-14 (Same as: l de 5 MG 14:31: Roxicodone Herm ruby Oral Tablet 00 ) Oxycodone 0 No Notes: Memori a Hydrochlori 7-14 (Same as: l de 5 MG 14:31: Roxicodone Herm ruby Oral Tablet 00 ) Oxycodone No Notes: Memori a Hydrochlori 7-14 (Same as: l de 5 MG 14:31: Roxicodone Herm ruby Oral Tablet 00 ) Oxycodone No Notes: Memori a Hydrochlori 7-14 (Same as: l de 5 MG 14:31: Roxicodone Herm ruby Oral Tablet 00 ) Oxycodone 2018-0 No Notes: Memori a Hydrochlori 7-14 (Same as: l de 5 MG 14:31: Roxicodone Herm ruby Oral Tablet 00 ) gabapentin 2018-0 No 300 mg, 1 Me moria 300 MG Oral 7-14 cap, l Capsule 13:42: Route: PO, Herm ruby 00 ONCE, Dosing Weight 87.273, kg, Start date: 04/09/18 8:42:00 CDT, Stop date: 04/09/18 8:42:00 CDT gabapentin 2018-0 No 300 mg, 1 Me moria 300 MG Oral 7-14 cap, l Capsule 13:42: Route: PO, Herm ruby 00 ONCE, Dosing Weight 87.273, kg, Start date: 04/09/18 8:42:00 CDT, Stop date: 04/09/18 8:42:00 CDT gabapentin 2018-0 No 300 mg, 1 Me moria 300 MG Oral 7-14 cap, l Capsule 13:42: Route: PO, Herm ruby 00 ONCE, Dosing Weight 87.273, kg, Start date: 04/09/18 8:42:00 CDT, Stop date: 04/09/18 8:42:00 CDT gabapentin 2018-0 No 300 mg, 1 Me moria 300 MG Oral 7-14 cap, l Capsule 13:42: Route: PO, Herm ruby 00 ONCE, Dosing Weight 87.273, kg, Start date: 04/09/18 8:42:00 CDT, Stop date: 04/09/18 8:42:00 CDT gabapentin 2018-0 No 300 mg, 1 Me moria 300 MG Oral 7-14 cap, l Capsule 13:42: Route: PO, Herm ruby 00 ONCE, Dosing Weight 87.273, kg, Start date: 04/09/18 8:42:00 CDT, Stop date: 04/09/18 8:42:00 CDT gabapentin 2018-0 No 300 mg, 1 Me moria 300 MG Oral 7-14 cap, l Capsule 13:42: Route: PO, Herm ruby 00 ONCE, Dosing Weight 87.273, kg, Start date: 04/09/18 8:42:00 CDT, Stop date: 04/09/18 8:42:00 CDT gabapentin 2018-0 No 300 mg, 1 Me moria 300 MG Oral 7-14 cap, l Capsule 13:42: Route: PO, Herm ruby 00 ONCE, Dosing Weight 87.273, kg, Start date: 04/09/18 8:42:00 CDT, Stop date: 04/09/18 8:42:00 CDT gabapentin 2018-0 No 300 mg, 1 Me moria 300 MG Oral 7-14 cap, l Capsule 13:42: Route: PO, Herm ruby 00 ONCE, Dosing Weight 87.273, kg, Start date: 04/09/18 8:42:00 CDT, Stop date: 04/09/18 8:42:00 CDT gabapentin 2018-0 No 300 mg, 1 Me moria 300 MG Oral 7-14 cap, l Capsule 13:42: Route: PO, Herm ruby 00 ONCE, Dosing Weight 87.273, kg, Start date: 04/09/18 8:42:00 CDT, Stop date: 04/09/18 8:42:00 CDT Robaxin 2017-0 No Notes: Memoria 7-14 (Same l 13:00: as:Robaxin Sae ) Robaxin 0 No Notes: Memoria 7-14 (Same l 13:00: as:Robaxin [place] ) Robaxin 0 No Notes: Memoria 7-14 (Same l 13:00: as:Robaxin Sae ) Robaxin 0 No Notes: Memoria 7-14 (Same l 13:00: as:Robaxin [place] ) Robaxin 0 No Notes: Memoria 7-14 (Same l 13:00: as:Robaxin [place] ) Robaxin 0 No Notes: Memoria 7-14 (Same l 13:00: as:Robaxin Sae ) Robaxin 2017-0 No Notes: Memoria 7-14 (Same l 13:00: as:Robaxin [place] 00 ) Robaxin 0 No Notes: Memoria 7-14 (Same l 13:00: as:Robaxin Sae ) Robaxin 0 No Notes: Memoria 7-14 (Same l 13:00: as:Robaxin Sae ) Tramadol 2018-0 No Notes: Not Mem oria 7-14 to exceed l 09:00: 400mg/day. Sae 00 (Same As: Ultram) Tramadol 0 No Notes: Not Mem oria 7-14 to exceed l 09:00: 400mg/day. Sae 00 (Same As: Ultram) Tramadol 0 No Notes: Not Mem oria 7-14 to exceed l 09:00: 400mg/day. Sae 00 (Same As: Ultram) Tramadol No Notes: Not Mem oria 7-14 to exceed l 09:00: 400mg/day. Sae 00 (Same As: Ultram) Tramadol No Notes: Not Mem oria 7-14 to exceed l 09:00: 400mg/day. Sae 00 (Same As: Ultram) Tramadol No Notes: Not Mem oria 7-14 to exceed l 09:00: 400mg/day. [place] 00 (Same As: Ultram) Tramadol No Notes: Not Mem oria 7-14 to exceed l 09:00: 400mg/day. Sae 00 (Same As: Ultram) Tramadol No Notes: Not Mem oria 7-14 to exceed l 09:00: 400mg/day. Sae 00 (Same As: Ultram) Tramadol 0 No Notes: Not Mem oria 7-14 to exceed l 09:00: 400mg/day. [place] 00 (Same As: Ultram) Streptococc No Notes: Shine sarah us 7-14 Shake well l pneumoniae 03:20: prior to Her aguirre serotype 1 12 use (Same capsular as: antigen Prevnar diphtheria 13) [id number] protein conjugate vaccine / Streptococc us pneumoniae serotype 14 capsular antigen diphtheria [id number] protein conjugate vaccine / Streptococc us pneumoniae serotype 18C capsular antigen d Streptococc No Notes: Shine sarah us 7-14 Shake well l pneumoniae 03:20: prior to Her aguirre serotype 1 12 use (Same capsular as: antigen Prevnar diphtheria 13) [id number] protein conjugate vaccine / Streptococc us pneumoniae serotype 14 capsular antigen diphtheria [id number] protein conjugate vaccine / Streptococc us pneumoniae serotype 18C capsular antigen d Streptococc No Notes: Shine sarah us 7-14 Shake well l pneumoniae 03:20: prior to Her aguirre serotype 1 12 use (Same capsular as: antigen Prevnar diphtheria 13) [id number] protein conjugate vaccine / Streptococc us pneumoniae serotype 14 capsular antigen diphtheria [id number] protein conjugate vaccine / Streptococc us pneumoniae serotype 18C capsular antigen d Streptococc 2017- No Notes: Shine sarah us 7-14 Shake well l pneumoniae 03:20: prior to Her aguirre serotype 1 12 use (Same capsular as: antigen Prevnar diphtheria 13) [id number] protein conjugate vaccine / Streptococc us pneumoniae serotype 14 capsular antigen diphtheria [id number] protein conjugate vaccine / Streptococc us pneumoniae serotype 18C capsular antigen d Streptococc No Notes: Shine sarah us 7-14 Shake well l pneumoniae 03:20: prior to Her aguirre serotype 1 12 use (Same capsular as: antigen Prevnar diphtheria 13) [id number] protein conjugate vaccine / Streptococc us pneumoniae serotype 14 capsular antigen diphtheria [id number] protein conjugate vaccine / Streptococc us pneumoniae serotype 18C capsular antigen d Streptococc No Notes: Shine sarah us 7-14 Shake well l pneumoniae 03:20: prior to Her aguirre serotype 1 12 use (Same capsular as: antigen Prevnar diphtheria 13) [id number] protein conjugate vaccine / Streptococc us pneumoniae serotype 14 capsular antigen diphtheria [id number] protein conjugate vaccine / Streptococc us pneumoniae serotype 18C capsular antigen d Streptococc No Notes: Shine sarah us 7-14 Shake well l pneumoniae 03:20: prior to Her aguirre serotype 1 12 use (Same capsular as: antigen Prevnar diphtheria 13) [id number] protein conjugate vaccine / Streptococc us pneumoniae serotype 14 capsular antigen diphtheria [id number] protein conjugate vaccine / Streptococc us pneumoniae serotype 18C capsular antigen d Streptococc No Notes: Shine sarah us 7-14 Shake well l pneumoniae 03:20: prior to Her aguirre serotype 1 12 use (Same capsular as: antigen Prevnar diphtheria 13) [id number] protein conjugate vaccine / Streptococc us pneumoniae serotype 14 capsular antigen diphtheria [id number] protein conjugate vaccine / Streptococc us pneumoniae serotype 18C capsular antigen d Streptococc No Notes: Shine sarah us 7-14 Shake well l pneumoniae 03:20: prior to Her aguirre serotype 1 12 use (Same capsular as: antigen Prevnar diphtheria 13) [id number] protein conjugate vaccine / Streptococc us pneumoniae serotype 14 capsular antigen diphtheria [id number] protein conjugate vaccine / Streptococc us pneumoniae serotype 18C capsular antigen d remove No Notes: Memoria patch 7-13 Remove l 21:00: patch 12 Sae 00 hours after applicatio n each day. remove No Notes: Memoria patch 7-13 Remove l 21:00: patch 12 [place] 00 hours after applicatio n each day. remove No Notes: Memoria patch 7-13 Remove l 21:00: patch 12 [place] 00 hours after applicatio n each day. remove No Notes: Memoria patch 7-13 Remove l 21:00: patch 12 [place] 00 hours after applicatio n each day. remove No Notes: Memoria patch 7-13 Remove l 21:00: patch 12 Sae 00 hours after applicatio n each day. remove No Notes: Memoria patch 7-13 Remove l 21:00: patch 12 Sae 00 hours after applicatio n each day. remove No Notes: Memoria patch 7-13 Remove l 21:00: patch 12 [place] 00 hours after applicatio n each day. remove No Notes: Memoria patch 7-13 Remove l 21:00: patch 12 Sae 00 hours after applicatio n each day. remove No Notes: Memoria patch 7-13 Remove l 21:00: patch 12 [place] 00 hours after applicatio n each day. [...] tab, PO, l Tablet 17:51: PRN, 0 [place] [Singulair] 00 Refill(s) Alprazolam No 0.5 mg = 1 M emoria 0.5 MG Oral 7-13 tab, PO, l Tablet 17:51: Daily, 0 [place] 00 Refill(s) Ferrousal No 325 mg = [...] 17:51: Daily, 0 Sae 00 Refill(s) montelukast 2018-0 No 10 mg = 1 M emoria 10 MG Oral 7-13 tab, PO, l Tablet 17:51: PRN, 0 [place] [Singulair] 00 Refill(s) Alprazolam 2018-0 No 0.5 mg = 1 M emoria 0.5 MG Oral 7-13 tab, PO, l Tablet 17:51: Daily, 0 Sae 00 Refill(s) Ferrousal 2017-0 No 325 mg = 1 Me moria 325 mg oral 7-13 tab, PO, l tablet 17:51: Daily, 0 [place] 00 Refill(s) montelukast 0 No 10 mg = 1 M emoria 10 MG Oral 7-13 tab, PO, l Tablet 17:51: PRN, 0 [place] [Singulair] 00 Refill(s) Alprazolam No 0.5 mg = 1 M emoria 0.5 MG Oral 7-13 tab, PO, l Tablet 17:51: Daily, 0 [place] 00 Refill(s) Ferrousal 0 No 325 mg = 1 Me moria 325 mg oral 7-13 tab, PO, l tablet 17:51: Daily, 0 Sae 00 Refill(s) montelukast 2017-0 No 10 mg = 1 M emoria 10 MG Oral 7-13 tab, PO, l Tablet 17:51: PRN, 0 Sae [Singulair] 00 Refill(s) Alprazolam 0 No 0.5 mg = 1 M emoria 0.5 MG Oral 7-13 tab, PO, l Tablet 17:51: Daily, 0 [place] 00 Refill(s) Ferrousal 2018-0 No 325 mg = 1 Me moria 325 mg oral 7-13 tab, PO, l tablet 17:51: Daily, 0 Sae 00 Refill(s) montelukast 2017-0 No 10 mg = 1 M emoria 10 MG Oral 7-13 tab, PO, l Tablet 17:51: PRN, 0 [facility] [Singulair] 00 Refill(s) Alprazolam 0 No 0.5 mg = 1 M emoria 0.5 MG Oral 7-13 tab, PO, l Tablet 17:51: Daily, 0 Sae 00 Refill(s) Ferrousal 0 No 325 mg = 1 Me moria 325 mg oral 7-13 tab, PO, l tablet 17:51: Daily, 0 Sae 00 Refill(s) montelukast 2018-0 No 10 mg = 1 M emoria 10 MG Oral 7-13 tab, PO, l Tablet 17:51: PRN, 0 [facility] [Singulair] 00 Refill(s) Alprazolam 0 No 0.5 mg = 1 M emoria 0.5 MG Oral 7-13 tab, PO, l Tablet 17:51: Daily, 0 [place] 00 Refill(s) Ferrousal 0 No 325 mg = 1 Me moria 325 mg oral 7-13 tab, PO, l tablet 17:51: Daily, 0 [place] 00 Refill(s) montelukast 0 No 10 mg = 1 M emoria 10 MG Oral 7-13 tab, PO, l Tablet 17:51: PRN, 0 Sae [Singulair] 00 Refill(s) Alprazolam 0 No 0.5 mg = 1 M emoria 0.5 MG Oral 7-13 tab, PO, l Tablet 17:51: Daily, 0 [place] 00 Refill(s) Ferrousal 2017-0 No 325 mg = 1 Me moria 325 mg oral 7-13 tab, PO, l tablet 17:51: Daily, 0 [place] 00 Refill(s) montelukast 2017-0 No 10 mg = 1 M emoria 10 MG Oral 7-13 tab, PO, l Tablet 17:51: PRN, 0 [place] [Singulair] 00 Refill(s) Alprazolam 0 No 0.5 mg = 1 M emoria 0.5 MG Oral 7-13 tab, PO, l Tablet 17:51: Daily, 0 [place] 00 Refill(s) Ferrousal 2017-0 No 325 mg = 1 Me moria 325 mg oral 7-13 tab, PO, l tablet 17:51: Daily, 0 [place] 00 Refill(s) tamsulosin 0 No 0.4 mg = 1 M emoria 0.4 mg oral 7-13 cap, PO, l capsule 17:49: Daily, 0 [place] n 00 Refill(s) isosorbide 2018-0 No 30 mg = 1 Me moria mononitrate 7-13 tab, PO, l 30 mg oral 17:49: QAM, 0 [place] nn tablet, 00 Refill(s) extended release tamsulosin 2018-0 No 0.4 mg = 1 M emoria [...] Daily, 0 [place] n 00 Refill(s) isosorbide 2018-0 No 30 mg = 1 Me moria mononitrate 7-13 tab, PO, l 30 mg oral 17:49: QAM, 0 Mallorie nn tablet, 00 Refill(s) extended release tamsulosin 2017-0 No 0.4 mg = 1 M emoria 0.4 mg oral 7-13 cap, PO, l capsule 17:49: Daily, 0 [place] n 00 Refill(s) isosorbide 2018-0 No 30 mg = 1 Me moria mononitrate 7-13 tab, PO, l 30 mg oral 17:49: QAM, 0 [place] nn tablet, 00 Refill(s) extended release tamsulosin 2017-0 No 0.4 mg = 1 M emoria 0.4 mg oral 7-13 cap, PO, l capsule 17:49: Daily, 0 [place] n 00 Refill(s) isosorbide 2018-0 No 30 mg = 1 Me moria mononitrate 7-13 tab, PO, l 30 mg oral 17:49: QAM, 0 [place] nn tablet, 00 Refill(s) extended release tamsulosin 2018-0 No 0.4 mg = 1 M emoria 0.4 mg oral 7-13 cap, PO, l capsule 17:49: Daily, 0 [place] n 00 Refill(s) isosorbide 2018-0 No 30 mg = 1 Me moria mononitrate 7-13 tab, PO, l 30 mg oral 17:49: QAM, 0 [place] nn tablet, 00 Refill(s) extended release tamsulosin 2018-0 No 0.4 mg = 1 M emoria 0.4 mg oral 7-13 cap, PO, l capsule 17:49: Daily, 0 [place] n 00 Refill(s) isosorbide 2018-0 No 30 mg = 1 Me moria mononitrate 7-13 tab, PO, l 30 mg oral 17:49: QAM, 0 [place] nn tablet, 00 Refill(s) extended release tamsulosin 2018-0 No 0.4 mg = 1 M emoria 0.4 mg oral 7-13 cap, PO, l capsule 17:49: Daily, 0 [place] n 00 Refill(s) isosorbide 2018-0 No 30 mg = 1 Me moria mononitrate 7-13 tab, PO, l 30 mg oral 17:49: QAM, 0 [place] nn tablet, 00 Refill(s) extended release potassium 2018-0 No 10 mEq = 1 Me moria chloride 10 7-13 tab, PO, l mEq oral 17:48: Daily, 0 [place] nn tablet, 00 Refill(s) extended release potassium 2018-0 No 10 mEq = 1 Me moria chloride 10 7-13 tab, PO, l mEq oral 17:48: Daily, 0 [place] nn tablet, 00 Refill(s) extended release potassium 2018-0 No 10 mEq = 1 Me moria chloride 10 7-13 tab, PO, l mEq oral 17:48: Daily, 0 [place] nn tablet, 00 Refill(s) extended release potassium 2018-0 No 10 mEq = 1 Me moria chloride 10 7-13 tab, PO, l mEq oral 17:48: Daily, 0 [place] nn tablet, 00 Refill(s) extended release potassium 2018- No 10 mEq = 1 Me moria chloride 10 7-13 tab, PO, l mEq oral 17:48: Daily, 0 [place] nn tablet, 00 Refill(s) extended release potassium 2017- No 10 mEq = 1 Me moria chloride 10 7-13 tab, PO, l mEq oral 17:48: Daily, 0 [place] nn tablet, 00 Refill(s) extended release potassium 2017-0 No 10 mEq = 1 Me moria chloride 10 7-13 tab, PO, l mEq oral 17:48: Daily, 0 [place] nn tablet, 00 Refill(s) extended release potassium 2017- No 10 mEq = 1 Me moria chloride 10 7-13 tab, PO, l mEq oral 17:48: Daily, 0 [place] nn tablet, 00 Refill(s) extended release potassium 2017- No 10 mEq = 1 Me moria chloride 10 7-13 tab, PO, l mEq oral 17:48: Daily, 0 [place] nn tablet, 00 Refill(s) extended release torsemide No 20 mg = 1 Mem oria 20 mg oral 7-13 tab, PO, l tablet 17:45: BID, 0 [place] 00 Refill(s) gabapentin No 300 mg = 1 M emoria 300 MG Oral 7-13 cap, PO, l Capsule 17:45: TID, 0 [place] 00 Refill(s) Metolazone No 2.5 mg = 1 M emoria 2.5 MG Oral 7-13 tab, PO, l Tablet 17:45: Daily, 0 [place] 00 Refill(s) torsemide No 20 mg = 1 Mem oria 20 mg oral 7-13 tab, PO, l tablet 17:45: BID, 0 [place] 00 Refill(s) gabapentin No 300 mg = 1 M emoria 300 MG Oral 7-13 cap, PO, l Capsule 17:45: TID, 0 [place] 00 Refill(s) Metolazone No 2.5 mg = 1 M emoria 2.5 MG Oral 7-13 tab, PO, l Tablet 17:45: Daily, 0 [place] 00 Refill(s) torsemide 20180 No 20 mg = 1 Mem oria 20 mg oral 7-13 tab, PO, l tablet 17:45: BID, 0 [place] 00 Refill(s) gabapentin 2017-0 No 300 mg = 1 M emoria 300 MG Oral 7-13 cap, PO, l Capsule 17:45: TID, 0 [place] 00 Refill(s) Metolazone 2018-0 No 2.5 mg = 1 M emoria 2.5 MG Oral 7-13 tab, PO, l Tablet 17:45: Daily, 0 [place] 00 Refill(s) torsemide 0 No 20 mg = 1 Mem oria 20 mg oral 7-13 tab, PO, l tablet 17:45: BID, 0 [place] 00 Refill(s) gabapentin 0 No 300 mg = 1 M emoria 300 MG Oral 7-13 cap, PO, l Capsule 17:45: TID, 0 [place] 00 Refill(s) Metolazone 0 No 2.5 mg = 1 M emoria 2.5 MG Oral 7-13 tab, PO, l Tablet 17:45: Daily, 0 [place] 00 Refill(s) torsemide 0 No 20 mg = 1 Mem oria 20 mg oral 7-13 tab, PO, l tablet 17:45: BID, 0 [place] 00 Refill(s) gabapentin 0 No 300 mg = 1 M emoria 300 MG Oral 7-13 cap, PO, l Capsule 17:45: TID, 0 [place] 00 Refill(s) Metolazone 0 No 2.5 mg = 1 M emoria 2.5 MG Oral 7-13 tab, PO, l Tablet 17:45: Daily, 0 [place] 00 Refill(s) torsemide 0 No 20 mg = 1 Mem oria 20 mg oral 7-13 tab, PO, l tablet 17:45: BID, 0 [place] 00 Refill(s) gabapentin 0 No 300 mg = 1 M emoria 300 MG Oral 7-13 cap, PO, l Capsule 17:45: TID, 0 [place] 00 Refill(s) Metolazone 2017-0 No 2.5 mg = 1 M emoria 2.5 MG Oral 7-13 tab, PO, l Tablet 17:45: Daily, 0 [place] 00 Refill(s) torsemide 2018-0 No 20 mg = 1 Mem oria 20 mg oral 7-13 tab, PO, l tablet 17:45: BID, 0 [place] 00 Refill(s) gabapentin 2017-0 No 300 mg = 1 M emoria 300 MG Oral 7-13 cap, PO, l Capsule 17:45: TID, 0 [place] 00 Refill(s) Metolazone 2017-0 No 2.5 mg = 1 M emoria 2.5 MG Oral 7-13 tab, PO, l Tablet 17:45: Daily, 0 [place] 00 Refill(s) torsemide 2018- No 20 mg = 1 Mem oria 20 mg oral 7-13 tab, PO, l tablet 17:45: BID, 0 [place] 00 Refill(s) gabapentin 2017-0 No 300 mg = 1 M emoria 300 MG Oral 7-13 cap, PO, l Capsule 17:45: TID, 0 [place] 00 Refill(s) Metolazone 2017-0 No 2.5 mg = 1 M emoria 2.5 MG Oral 7-13 tab, PO, l Tablet 17:45: Daily, 0 [place] 00 Refill(s) torsemide No 20 mg = 1 Mem oria 20 mg oral 7-13 tab, PO, l tablet 17:45: BID, 0 [place] 00 Refill(s) gabapentin 2017-0 No 300 mg = 1 M emoria 300 MG Oral 7-13 cap, PO, l Capsule 17:45: TID, 0 [place] 00 Refill(s) Metolazone 0 No 2.5 mg = 1 M emoria 2.5 MG Oral 7-13 tab, PO, l Tablet 17:45: Daily, 0 [place] 00 Refill(s) amLODIPine No 5 mg = 1 Mem oria 5 mg oral 7-13 tab, PO, l tablet 17:44: Daily, 0 [place] 00 Refill(s) labetalol 0 No 100 mg = 1 Me moria 100 mg oral 7-13 tab, PO, l tablet 17:44: BID, 0 [place] 00 Refill(s) amLODIPine No 5 mg = [...] tab, PO, l tablet 17:44: BID, 0 [place] 00 Refill(s) amLODIPine 2018-0 No 5 mg = 1 Mem oria 5 mg oral 7-13 tab, PO, l tablet 17:44: Daily, 0 [place] 00 Refill(s) labetalol 2018-0 No 100 mg = 1 Me moria 100 mg oral 7-13 tab, PO, l tablet 17:44: BID, 0 [place] 00 Refill(s) amLODIPine 2018-0 No 5 mg [...] tab, PO, l tablet 17:44: Daily, 0 [place] 00 Refill(s) labetalol 2018-0 No 100 mg = 1 Me moria 100 mg oral 7-13 tab, PO, l tablet 17:44: BID, 0 [place] 00 Refill(s) amLODIPine 2018-0 No 5 mg = 1 Mem oria 5 mg oral 7-13 tab, PO, l tablet 17:44: Daily, 0 [place] 00 Refill(s) labetalol 0 No 100 mg = 1 Me moria 100 mg oral 7-13 tab, PO, l tablet 17:44: BID, 0 [place] 00 Refill(s) amLODIPine 0 No 5 mg = 1 Mem oria 5 mg oral 7-13 tab, PO, l tablet 17:44: Daily, 0 [place] 00 Refill(s) labetalol 0 No 100 mg = 1 Me moria 100 mg oral 7-13 tab, PO, l tablet 17:44: BID, 0 [place] 00 Refill(s) pravastatin 0 No 80 mg = 1 M emoria 80 mg oral 7-13 tab, PO, l tablet 17:19: Daily, 0 [place] 00 Refill(s) allopurinol 0 No 100 mg = 1 Memoria 100 mg oral 7-13 tab, PO, l tablet 17:19: BID, 0 [place] 00 Refill(s) pravastatin 0 No 80 mg = 1 M emoria 80 mg oral 7-13 tab, PO, l tablet 17:19: Daily, 0 [place] 00 Refill(s) allopurinol 0 No 100 mg = 1 [facility]oria 100 mg oral 7-13 tab, PO, l tablet 17:19: BID, 0 [place] 00 Refill(s) pravastatin 0 No 80 mg = 1 M emoria 80 mg oral 7-13 tab, PO, l tablet 17:19: Daily, 0 [place] 00 Refill(s) allopurinol 0 No 100 mg = 1 Memoria 100 mg oral 7-13 tab, PO, l tablet 17:19: BID, 0 [place] 00 Refill(s) pravastatin 0 No 80 mg = 1 M emoria 80 mg oral 7-13 tab, PO, l tablet 17:19: Daily, 0 [place] 00 Refill(s) allopurinol 2017-0 No 100 mg = 1 Memoria 100 mg oral 7-13 tab, PO, l tablet 17:19: BID, 0 [place] 00 Refill(s) pravastatin 2017-0 No 80 mg = 1 M emoria 80 mg oral 7-13 tab, PO, l tablet 17:19: Daily, 0 [place] 00 Refill(s) allopurinol 2018-0 No 100 mg = 1 Memoria 100 mg oral 7-13 tab, PO, l tablet 17:19: BID, 0 [place] 00 Refill(s) pravastatin 2017-0 No 80 mg = 1 M emoria 80 mg oral 7-13 tab, PO, l tablet 17:19: Daily, 0 [place] 00 Refill(s) allopurinol 2017-0 No 100 mg = 1 Memoria 100 mg oral 7-13 tab, PO, l tablet 17:19: BID, 0 [place] 00 Refill(s) pravastatin 0 No 80 mg = 1 M emoria 80 mg oral 7-13 tab, PO, l tablet 17:19: Daily, 0 [place] 00 Refill(s) allopurinol 0 No 100 mg = 1 Memoria 100 mg oral 7-13 tab, PO, l tablet 17:19: BID, 0 [place] 00 Refill(s) pravastatin 2017-0 No 80 mg = 1 M emoria 80 mg oral 7-13 tab, PO, l tablet 17:19: Daily, 0 [place] 00 Refill(s) allopurinol 0 No 100 mg = 1 Memoria 100 mg oral 7-13 tab, PO, l tablet 17:19: BID, 0 [place] 00 Refill(s) pravastatin 2017-0 No 80 mg = 1 M emoria 80 mg oral 7-13 tab, PO, l tablet 17:19: Daily, 0 [place] 00 Refill(s) allopurinol 2017-0 No 100 mg = 1 Memoria 100 mg oral 7-13 tab, PO, l tablet 17:19: BID, 0 [place] 00 Refill(s) magnesium 0 No 400 mg = 1 Me moria oxide 400 7-13 tab, PO, l mg oral 17:18: BID, 0 [place] tablet 00 Refill(s) magnesium 2017-0 No 400 [...] BID, 0 Sae tablet 00 Refill(s) magnesium 2017- No 400 mg = 1 Me moria oxide 400 7-13 tab, PO, l mg oral 17:18: BID, 0 [place] tablet 00 Refill(s) magnesium 2017-0 No 400 mg = 1 Me moria oxide 400 7-13 tab, PO, l mg oral 17:18: BID, 0 [place] tablet 00 Refill(s) magnesium No 400 mg = 1 Me moria oxide 400 7-13 tab, PO, l mg oral 17:18: BID, 0 [place] tablet 00 Refill(s) magnesium 2017- No 400 mg = 1 Me moria oxide 400 7-13 tab, PO, l mg oral 17:18: BID, 0 [place] tablet 00 Refill(s) magnesium No 400 mg = 1 Me moria oxide 400 7-13 tab, PO, l mg oral 17:18: BID, 0 [place] tablet 00 Refill(s) Folic Acid No 1 [...] tab, PO, l Tablet 17:17: Daily, 0 [place] 00 Refill(s) Folic Acid No 1 mg = 1 Mem oria 1 MG Oral 7-13 tab, PO, l Tablet 17:17: Daily, 0 [place] 00 Refill(s) Folic Acid No 1 mg = 1 Mem oria 1 MG Oral 7-13 tab, PO, l Tablet 17:17: Daily, 0 [place] 00 Refill(s) Folic Acid No 1 mg [...] cap, PO, l oral 17:14: BID, 0 [place] capsule 00 Refill(s) Fish Oil No 1,000 mg = Mem oria 1000 mg 7-13 1 cap, PO, l oral 17:14: BID, 0 Sae capsule 00 Refill(s) Fish Oil No 1,000 mg = Mem oria 1000 mg 7-13 1 cap, PO, l oral 17:14: BID, 0 [place] capsule 00 Refill(s) Fish Oil No 1,000 mg = Mem oria 1000 mg 7-13 1 cap, PO, l oral 17:14: BID, 0 [place] capsule 00 Refill(s) thiamine No 100 mg = 1 Mem oria 100 mg oral 7-13 tab, PO, l tablet 17:13: Daily, 0 [place] 00 Refill(s) multivitami 2018-0 No Daily, 0 Me moria n 7-13 Refill(s) l 17:13: Sae 00 Calcium 2018-0 No 1 tab, PO, Shine sarah Carbonate 7- BID, 0 l 1500 MG / 17:13: Refill(s) Her carla Cholecalcif 00 kang 400 UNT Oral Tablet thiamine 0 No 100 mg = 1 Mem oria 100 mg oral 7-13 tab, PO, l tablet 17:13: Daily, 0 S[place] 00 Refill(s) multivitami 20180 No Daily, 0 Me moria n 04-08 Refill(s) l 17:13: [place] 00 Calcium 2018-0 No 1 tab, PO, Shine sarah Carbonate 7- BID, 0 l 1500 MG / 17:13: Refill(s) Her carla Cholecalcif 00 kang 400 UNT Oral Tablet thiamine 0 No 100 mg = 1 Mem oria 100 mg oral 7-13 tab, PO, l tablet 17:13: Daily, 0 [place] 00 Refill(s) multivitami 20180 No Daily, 0 Me moria n 04-08 Refill(s) l 17:13: Sae 00 Calcium 2017-0 No 1 tab, PO, Shine sarah Carbonate 7- BID, 0 l 1500 MG / 17:13: Refill(s) Her carla Cholecalcif 00 kang 400 UNT Oral Tablet thiamine 0 No 100 mg = 1 Mem oria 100 mg oral 7- tab, PO, l tablet 17:13: Daily, 0 Sae 00 Refill(s) multivitami 20180 No Daily, 0 Me moria n 04-08 Refill(s) l 17:13: [place] 00 Calcium 2017-0 No 1 tab, PO, Shine sarah Carbonate 7- BID, 0 l 1500 MG / 17:13: Refill(s) Her carla Cholecalcif 00 kang 400 UNT Oral Tablet thiamine 0 No 100 mg = 1 Mem oria 100 mg oral 7- tab, PO, l tablet 17:13: Daily, 0 Sae 00 Refill(s) multivitami 2018-0 No Daily, 0 Me moria n 7-13 Refill(s) l 17:13: [place] 00 Calcium 2018-0 No 1 tab, PO, Shine sarah Carbonate 7-13 BID, 0 l 1500 MG / 17:13: Refill(s) Her carla Cholecalcif 00 kang 400 UNT Oral Tablet thiamine No 100 mg = 1 Mem oria 100 mg oral 7-13 tab, PO, l tablet 17:13: Daily, 0 [place] 00 Refill(s) multivitami 2018-0 No Daily, 0 Me moria n 13 Refill(s) l 17:13: [place] 00 Calcium 2017-0 No 1 tab, PO, Shine sarah Carbonate 7- BID, 0 l 1500 MG / 17:13: Refill(s) Her carla Cholecalcif 00 kang 400 UNT Oral Tablet thiamine No 100 mg = 1 Mem oria 100 mg oral 7-13 tab, PO, l tablet 17:13: Daily, 0 [place] 00 Refill(s) multivitami 20180 No Daily, 0 Me moria n 04-08 Refill(s) l 17:13: [place] 00 Calcium 0 No 1 tab, PO, Shine sarah Carbonate - BID, 0 l 1500 MG / 17:13: Refill(s) Her carla Cholecalcif 00 kang 400 UNT Oral Tablet thiamine No 100 mg = 1 Mem oria 100 mg oral 7-13 tab, PO, l tablet 17:13: Daily, 0 [place] 00 Refill(s) multivitami 0 No Daily, 0 Me moria n 04-08 Refill(s) l 17:13: [place] 00 Calcium 2017-0 No 1 tab, PO, Shine sarah Carbonate - BID, 0 l 1500 MG / 17:13: Refill(s) Her carla Cholecalcif 00 kang 400 UNT Oral Tablet thiamine 0 No 100 mg = 1 Mem oria 100 mg oral 7-13 tab, PO, l tablet 17:13: Daily, 0 [place] 00 Refill(s) multivitami 2018-0 No Daily, 0 Me moria n 7-13 Refill(s) l 17:13: [place] 00 Calcium 2018-0 No 1 tab, PO, Shine sarah Carbonate 7- BID, 0 l 1500 MG / 17:13: Refill(s) Her carla Cholecalcif 00 kang 400 UNT Oral Tablet Aspirin 81 20180 No 81 mg = 1 Me moria MG Chewable 7-13 tab, CHEW, l Tablet 17:12: Daily, 0 [place] 00 Refill(s) Aspirin 81 2018-0 No 81 mg = 1 Me moria MG Chewable 7-13 tab, CHEW, l Tablet 17:12: Daily, 0 [place] 00 Refill(s) Aspirin 81 2018-0 No 81 mg = 1 Me moria MG Chewable 7-13 tab, CHEW, l Tablet 17:12: Daily, 0 [place] 00 Refill(s) Aspirin 81 2018-0 No 81 mg = 1 Me moria MG Chewable 7-13 tab, CHEW, l Tablet 17:12: Daily, 0 [place] 00 Refill(s) Aspirin 81 2018-0 No 81 mg = 1 Me moria MG Chewable 7-13 tab, CHEW, l Tablet 17:12: Daily, 0 [place] 00 Refill(s) Aspirin 81 2018-0 No 81 mg = 1 Me moria MG Chewable 7-13 tab, CHEW, l Tablet 17:12: Daily, 0 [place] 00 Refill(s) Aspirin 81 2018-0 No 81 mg = 1 Me moria MG Chewable 7-13 tab, CHEW, l Tablet 17:12: Daily, 0 [place] 00 Refill(s) Aspirin 81 2018-0 No 81 mg = 1 Me moria MG Chewable 7-13 tab, CHEW, l Tablet 17:12: Daily, 0 [place] 00 Refill(s) Aspirin 81 2018-0 No 81 mg = 1 Me moria MG Chewable 7-13 tab, CHEW, l Tablet 17:12: Daily, 0 [place] 00 Refill(s) NovoLIN 2018-0 No 24 unit, Memori a 70/30 7-13 SUB-Q, l 17:11: QPM, 0 [place] 00 Refill(s) NovoLIN 2018-0 No 24 unit, [...] 70/30 7-13 SUB-Q, l 17:11: QPM, 0 [place] 00 Refill(s) NovoLIN 2018-0 No 24 unit, Memori a 70/30 7-13 SUB-Q, l 17:11: QPM, 0 [place] 00 Refill(s) NovoLIN 2018-0 No 24 unit, Memori a 70/30 7-13 SUB-Q, l 17:11: QPM, 0 [place] 00 Refill(s) NovoLIN 2018-0 No 24 unit, Memori a 70/30 7-13 SUB-Q, l 17:11: QPM, 0 [place] 00 Refill(s) NovoLIN 2018-0 No 24 unit, Memori a 70/30 7-13 SUB-Q, l 17:11: QPM, 0 [place] 00 Refill(s) NovoLIN 2018-0 No 18 unit, Memori a 70/30 7-13 SUB-Q, l 17:09: QAM, 0 [place] 00 Refill(s) predniSONE 2018-0 No 5 mg = 1 Mem oria 5 mg oral 7-13 tab, PO, l tablet 17:09: Daily, 0 [place] 00 Refill(s) tacrolimus 2018-0 No 0.5 mg = 1 M emoria 0.5 mg oral 7-13 cap, PO, l capsule 17:09: Q12H, 0 [place]ae 00 Refill(s) NovoLIN 2018-0 No 18 unit, Memori a 70/30 7-13 SUB-Q, l 17:09: QAM, 0 [place] 00 Refill(s) predniSONE 2018-0 No 5 mg = 1 Mem oria 5 mg oral 7-13 tab, PO, l tablet 17:09: Daily, 0 [place] 00 Refill(s) tacrolimus 2018-0 No 0.5 mg = 1 M emoria 0.5 mg oral 7-13 cap, PO, l capsule 17:09: Q12H, 0 [place] 00 Refill(s) NovoLIN 2018-0 No 18 unit, Memori a 70/30 7-13 SUB-Q, l 17:09: QAM, 0 [place] 00 Refill(s) predniSONE 2018-0 No 5 mg = 1 Mem oria 5 mg oral 7-13 tab, PO, l tablet 17:09: Daily, 0 [place] 00 Refill(s) tacrolimus 2018-0 No 0.5 mg = 1 M emoria 0.5 mg oral 7-13 cap, PO, l capsule 17:09: Q12H, 0 [place] 00 Refill(s) NovoLIN 2018-0 No 18 unit, Memori a 70/30 7-13 SUB-Q, l 17:09: QAM, 0 [place] 00 Refill(s) predniSONE 2018-0 No 5 mg = 1 Mem oria 5 mg oral 7-13 tab, PO, l tablet 17:09: Daily, 0 [place] 00 Refill(s) tacrolimus 2018-0 No 0.5 mg = 1 M emoria 0.5 mg oral 7-13 cap, PO, l capsule 17:09: Q12H, 0 [place]ae 00 Refill(s) NovoLIN 2018-0 No 18 unit, Memori a 70/30 7-13 SUB-Q, l 17:09: QAM, 0 [place] 00 Refill(s) predniSONE 2018-0 No 5 mg = 1 Mem oria 5 mg oral 7-13 tab, PO, l tablet 17:09: Daily, 0 [place] 00 Refill(s) tacrolimus 2018-0 No 0.5 mg = 1 M emoria 0.5 mg oral 7-13 cap, PO, l capsule 17:09: Q12H, 0 [place]ae 00 Refill(s) NovoLIN 2018-0 No 18 unit, Memori a 70/30 7-13 SUB-Q, l 17:09: QAM, 0 [place] 00 Refill(s) predniSONE 2018-0 No 5 mg = 1 Mem oria 5 mg oral 7-13 tab, PO, l tablet 17:09: Daily, 0 [place] 00 Refill(s) tacrolimus 2018-0 No 0.5 mg = 1 M emoria 0.5 mg oral 7-13 cap, PO, l capsule 17:09: Q12H, 0 [place]ae 00 Refill(s) NovoLIN 2018-0 No 18 unit, Memori a 70/30 7-13 SUB-Q, l 17:09: QAM, 0 [place] 00 Refill(s) predniSONE 2018-0 No 5 mg = 1 Mem oria 5 mg oral 7-13 tab, PO, l tablet 17:09: Daily, 0 [place] 00 Refill(s) tacrolimus 2018-0 No 0.5 mg = 1 M emoria 0.5 mg oral 7-13 cap, PO, l capsule 17:09: Q12H, 0 [place] 00 Refill(s) NovoLIN 2018-0 No 18 unit, Memori a 70/30 7-13 SUB-Q, l 17:09: QAM, 0 [place] 00 Refill(s) predniSONE 2018-0 No 5 mg = 1 Mem oria 5 mg oral 7-13 tab, PO, l tablet 17:09: Daily, 0 [place] 00 Refill(s) tacrolimus 2018-0 No 0.5 mg = 1 M emoria 0.5 mg oral 7-13 cap, PO, l capsule 17:09: Q12H, 0 [place] 00 Refill(s) NovoLIN 2018-0 No 18 unit, Memori a 70/30 7-13 SUB-Q, l 17:09: QAM, 0 [place] 00 Refill(s) predniSONE 2018-0 No 5 mg = 1 Mem oria 5 mg oral 7-13 tab, PO, l tablet 17:09: Daily, 0 [place] 00 Refill(s) tacrolimus 2018-0 No 0.5 mg = 1 M emoria 0.5 mg oral 7-13 cap, PO, l capsule 17:09: Q12H, 0 [place] 00 Refill(s) Prednisone 2017-0 No Notes: Memor ia 7-13 Take with l 14:00: food. Prednisone 0 No Notes: Memor ia 7-13 Take with l 14:00: food. Prednisone 0 No Notes: Memor ia 7-13 Take with l 14:00: food. Prednisone 0 No Notes: Memor ia 7-13 Take with l 14:00: food. Prednisone 2017-0 No Notes: Memor ia 7-13 Take with l 14:00: food. Prednisone 0 No Notes: Memor ia 7-13 Take with l 14:00: food. Prednisone 0 No Notes: Memor ia 7-13 Take with l 14:00: food. Prednisone 0 No Notes: Memor ia 7-13 Take with l 14:00: food. [place] 00 Prednisone No Notes: Memor ia 7-13 Take with l 14:00: food. Sae 00 Tacrolimus No Notes: Memor ia 7-13 Avoid l 13:00: grapefruit [place] 00 and grapefruit juice. (Same As: Prograf) heparin No Notes: Memoria sodium, 7-13 porcine l porcine 13:00: heparin [place] 2500 UNT/ML 00 Injectable Solution Tacrolimus No Notes: Memor ia 7-13 Avoid l 13:00: grapefruit Sae 00 and grapefruit juice. (Same As: Prograf) heparin No Notes: Memoria sodium, 7-13 porcine l porcine 13:00: heparin Sae 2500 UNT/ML 00 Injectable Solution Tacrolimus No Notes: Memor ia 7-13 Avoid l 13:00: grapefruit [place] 00 and grapefruit juice. (Same As: Prograf) heparin No Notes: Memoria sodium, 7-13 porcine l porcine 13:00: heparin Sae 2500 UNT/ML 00 Injectable Solution Tacrolimus No Notes: Memor ia 7-13 Avoid l 13:00: grapefruit [place] 00 and grapefruit juice. (Same As: Prograf) [...] Memor ia 7-13 Avoid l 13:00: grapefruit [place] 00 and grapefruit juice. (Same As: Prograf) [...] Memor ia 7-13 Avoid l 13:00: grapefruit [place] 00 and grapefruit juice. (Same As: Prograf) heparin No Notes: Memoria sodium, 7-13 porcine l porcine 13:00: heparin Sae 2500 UNT/ML 00 Injectable Solution acetaminoph No Notes: Max Memoria en 7-13 acetaminop l 12:23: hen 4000 [place] 00 mg/day (4 gm/day). (Same as: Tylenol [...] en 7-13 acetaminop l 12:23: hen 4000 [place] 00 mg/day (4 gm/day). (Same as: Tylenol Extra Strength) acetaminoph No Notes: Max Memoria en 7-13 acetaminop l 12:23: hen 4000 [place] 00 mg/day (4 gm/day). (Same as: Tylenol Extra Strength) acetaminoph No Notes: Max Memoria en 7-13 acetaminop l 12:23: hen 4000 [place] 00 mg/day (4 gm/day). (Same as: Tylenol Extra Strength) acetaminoph 2018-0 No Notes: Max Memoria en 7-13 acetaminop l 12:23: hen 4000 [place] 00 mg/day (4 gm/day). (Same as: Tylenol Extra Strength) acetaminoph 2017-0 No Notes: Max Memoria en 7-13 acetaminop l 12:23: hen 4000 Sae 00 mg/day (4 gm/day). (Same as: Tylenol Extra Strength) iodixanol 0 No 100 mL, Memor ia 04-08 Route: l 08:59: IVP, Drug [place] 00 Form: SOLN, kg, ONCALL, STAT, Start date: 04/08/18 3:59:00 CDT, Duration: 1 doses or times, Dose = 2.2ml/kg, Max dose = 100ml -- "To be infused by Radiology Staff ONLY" iodixanol 0 No 100 mL, Memor ia 04-08 Route: l 08:59: IVP, Drug [place] Form: SOLN, kg, ONCALL, STAT, Start date: [...] be infused by Radiology Staff ONLY" iodixanol 2018-0 No 100 mL, Memor ia 7- Route: l 08:59: IVP, Drug [place] Form: SOLN, kg, ONCALL, STAT, Start date: 04/08/18 3:59:00 CDT, Duration: 1 doses or times, Dose = 2.2ml/kg, Max dose = 100ml -- "To be infused by Radiology Staff ONLY" iodixanol 2018-0 No 100 mL, Mem[facility] ia 7- Route: l 08:59: IVP, Drug [place] Form: SOLN, kg, ONCALL, STAT, Start date: 04/08/18 3:59:00 CDT, Duration: 1 doses or times, Dose = 2.2ml/kg, Max dose = 100ml -- "To be infused by Radiology Staff ONLY" iodixanol 2018-0 No 100 mL, [facility] 7- Route: l 08:59: IVP, Drug Sae Form: SOLN, kg, ONCALL, STAT, Start date: 04/08/18 3:59:00 CDT, Duration: 1 doses or times, Dose = 2.2ml/kg, Max dose = 100ml -- "To be infused by Radiology Staff ONLY" iodixanol 2018-0 No 100 mL, Mem[facility] 7- Route: l 08:59: IVP, Drug Sae Form: [...] patch" Lidocaine No Notes: Memori a Hydrochlori 7-13 (Same as: l de 0.05 07:00: Lidoderm) Mallorie nn MG/MG 00 "Remove Transdermal old patch Patch before [Lidoderm] applicatio n of new patch" Lidocaine No Notes: Memori a Hydrochlori 7-13 (Same as: l de 0.05 07:00: Lidoderm) Mallorie nn MG/MG 00 "Remove Transdermal old patch Patch before [Lidoderm] applicatio n of new patch" Lidocaine No Notes: Memori a Hydrochlori 7-13 (Same as: l de 0.05 07:00: Lidoderm) Mallorie nn MG/MG 00 "Remove Transdermal old patch Patch before [Lidoderm] applicatio n of new patch" Lidocaine No Notes: Memori a Hydrochlori 7-13 (Same as: l de 0.05 07:00: Lidoderm) Mallorie nn MG/MG 00 "Remove Transdermal old patch Patch before [Lidoderm] applicatio n of new patch" Lidocaine No Notes: Memori a Hydrochlori 7-13 (Same as: l de 0.05 07:00: Lidoderm) Mallorie nn MG/MG 00 "Remove Transdermal old patch Patch before [Lidoderm] applicatio n of new patch" Lidocaine No Notes: Memori a Hydrochlori 7-13 (Same as: l de 0.05 07:00: Lidoderm) Mallorie nn MG/MG 00 "Remove Transdermal old patch Patch before [Lidoderm] applicatio n of new patch" Lidocaine No Notes: Memori a Hydrochlori 7-13 (Same as: l de 0.05 07:00: Lidoderm) Mallorie nn MG/MG 00 "Remove Transdermal old patch Patch before [Lidoderm] applicatio n of new patch" Lidocaine No Notes: Memori a Hydrochlori 7-13 (Same as: l de 0.05 07:00: Lidoderm) Mallorie nn MG/MG 00 "Remove Transdermal old patch Patch before [Lidoderm] applicatio n of new patch" Oxycodone No Notes: Memori a Hydrochlori 7-13 (Same as: l de 5 MG 06:48: Roxicodone Herm ruby Oral Tablet 00 ) Tramadol No Notes: Not Mem oria 7-13 to exceed l 06:48: 400mg/day. Sae 00 (Same As: Ultram) Oxycodone No Notes: Memori a Hydrochlori 7-13 (Same as: l de 5 MG 06:48: Roxicodone Herm ruby Oral Tablet 00 ) Tramadol 2017-0 No Notes: Not Mem oria 7-13 to exceed l 06:48: 400mg/day. Sae 00 (Same As: Ultram) Oxycodone 2017-0 No Notes: Memori a Hydrochlori 7-13 (Same as: l de 5 MG 06:48: Roxicodone Herm ruby Oral Tablet 00 ) Tramadol 0 No Notes: Not Mem oria 7-13 to exceed l 06:48: 400mg/day. Sae 00 (Same As: Ultram) Oxycodone 0 No Notes: Memori a Hydrochlori 7-13 (Same as: l de 5 MG 06:48: Roxicodone Herm ruby Oral Tablet 00 ) Tramadol 0 No Notes: Not Mem oria 7-13 to exceed l 06:48: 400mg/day. [place] (Same As: Ultram) Oxycodone 0 No Notes: Memori a Hydrochlori 7-13 (Same as: l de 5 MG 06:48: Roxicodone Herm ruby Oral Tablet 00 ) Tramadol 0 No Notes: Not Mem oria 7-13 to exceed l 06:48: 400mg/day. [place] (Same As: Ultram) Oxycodone 0 No Notes: Memori a Hydrochlori 7-13 (Same as: l de 5 MG 06:48: Roxicodone Herm ruby Oral Tablet 00 ) Tramadol 0 No Notes: Not Mem oria 7-13 to exceed l 06:48: 400mg/day. Sae 00 (Same As: Ultram) Oxycodone 0 No Notes: Memori a Hydrochlori 7-13 (Same as: l de 5 MG 06:48: Roxicodone Herm ruby Oral Tablet 00 ) Tramadol 2017-0 No Notes: Not Mem oria 7-13 to exceed l 06:48: 400mg/day. [place] 00 (Same As: Ultram) Oxycodone 2017-0 No Notes: Memori a Hydrochlori 7-13 (Same as: l de 5 MG 06:48: Roxicodone Herm ruby Oral Tablet 00 ) Tramadol 2017-0 No Notes: Not Mem oria 7-13 to exceed l 06:48: 400mg/day. Sae 00 (Same As: Ultram) Oxycodone No Notes: Memori a Hydrochlori -13 (Same as: l de 5 MG 06:48: Roxicodone Herm ruby Oral Tablet 00 ) Tramadol No Notes: Not Mem oria 7-13 to exceed l 06:48: 400mg/day. Sae 00 (Same As: Ultram) gabapentin No Notes: Memor ia 7-13 (Same as: l 06:46: Neurontin) [place] Acetaminoph No Notes: Max Memoria en 7-13 acetaminop l 06:46: hen 4000 Sae 00 mg/day (4 gm/day). (Same as: Tylenol Extra Strength) gabapentin No Notes: Memor ia 7-13 (Same as: l 06:46: Neurontin) Sae Acetaminoph No Notes: Max Memoria en 7-13 acetaminop l 06:46: hen 4000 Sae 00 mg/day (4 gm/day). (Same as: Tylenol Extra Strength) gabapentin No Notes: Memor ia 7-13 (Same as: l 06:46: Neurontin) [place] 00 Acetaminoph No Notes: Max Memoria en 7-13 acetaminop l 06:46: hen 4000 Sae 00 mg/day (4 gm/day). (Same as: Tylenol Extra Strength) gabapentin No Notes: Memor ia 7-13 (Same as: l 06:46: Neurontin) [place] Acetaminoph No Notes: Max Memoria en 7-13 acetaminop l 06:46: hen 4000 Sae 00 mg/day (4 gm/day). (Same as: Tylenol Extra Strength) gabapentin No Notes: Memor ia 7-13 (Same as: l 06:46: Neurontin) [place] 00 Acetaminoph No Notes: Max Memoria en 7-13 acetaminop l 06:46: hen 4000 Sae 00 mg/day (4 gm/day). (Same as: Tylenol Extra Strength) gabapentin No Notes: Memor ia 7-13 (Same as: l 06:46: Neurontin) [place] 00 Acetaminoph No Notes: Max Memoria en [...] ia 7-13 (Same as: l 06:46: Neurontin) [place] 00 Acetaminoph No Notes: Max Memoria en [...] Memoria 7-13 (Same as: l 04:37: Sublimaze) [place] 00 Preservati ve free. Saline No Notes: Memoria Flush 0.9% 7-13 (Same as: l 04:37: BD [place] 00 Posiflush) Fentanyl No Notes: Memoria 7-13 (Same as: l 04:37: Sublimaze) [place] 00 Preservati ve free. Saline No Notes: Memoria Flush 0.9% 7-13 (Same as: l 04:37: BD [place] 00 Posiflush) Fentanyl No Notes: Memoria 7-13 (Same as: l 04:37: Sublimaze) Sae 00 Preservati ve free. Saline No Notes: Memoria Flush 0.9% 7-13 (Same as: l 04:37: BD [place] 00 Posiflush) Fentanyl No Notes: Memoria 7-13 (Same as: l 04:37: Sublimaze) [place] 00 Preservati ve free. Saline No Notes: Memoria Flush 0.9% 7-13 (Same as: l 04:37: BD Sae 00 Posiflush) Fentanyl No Notes: Memoria 7-13 (Same as: l 04:37: Sublimaze) [place] 00 Preservati ve free. Saline No Notes: Memoria Flush 0.9% 7-13 (Same as: l 04:37: BD Sae 00 Posiflush) Fentanyl No Notes: Memoria 7-13 (Same as: l 04:37: Sublimaze) [place] 00 Preservati ve free. Saline No Notes: Memoria Flush 0.9% 7-13 (Same as: l 04:37: BD [place] 00 Posiflush) Fentanyl No Notes: Memoria 7-13 (Same as: l 04:37: Sublimaze) Sae 00 Preservati ve free. Saline No Notes: Memoria Flush 0.9% 7-13 (Same as: l 04:37: BD Sae 00 Posiflush) Fentanyl No Notes: Memoria 7-13 (Same as: l 04:37: Sublimaze) [place] 00 Preservati ve free. Saline No Notes: Memoria Flush 0.9% 7-13 (Same as: l 04:37: BD Sae 00 Posiflush) Fentanyl No Notes: Memoria 7-13 (Same as: l 04:37: Sublimaze) [place] 00 Preservati ve free. Saline No Notes: Memoria Flush 0.9% 7-13 (Same as: l 04:37: BD Sae 00 Posiflush) esomeprazol Yes Take 40 mg [facility] (NexIUM) 4-[address] 20 MG 00:00: every [facility] capsule 00 morning l and 20 mg by mouth every evening montelukast Yes 10mg Take 1 Meth susan (SINGULAIR) 4-28 tablet (10 st 10 mg 00:00: mg total) [facility] tablet 00 by mouth l as needed (allergies ). esomeprazol Yes Take 40 mg [facility] (NexIUM) 4-[address] 20 MG 00:00: every [facility] capsule 00 morning l and 20 mg by mouth every evening montelukast Yes 10mg Take 1 Meth susan (SINGULAIR) 4-28 tablet (10 st 10 mg 00:00: mg total) [facility]osp[facility] tablet 00 by mouth l as needed (allergies ). NOVORADHA 2015-09 Yes Univers 70/30 100 1-05 ity of unit/mL 00:00: [place] (70-30) 00 OK injection [facility] NOVOLIN 2015-09 Yes Univers 70/30 100 1-05 ity of unit/mL 00:00: [place] (70-30) 00 OK injection [facility] NOVOLIN 2015-09 Yes Univers 70/30 100 1-05 ity of unit/mL 00:00: [place] (70-30) 00 injection [facility] SINGULAIR 2015-09 Yes TAKE 1 Univer s 10 mg 1-01 TABLET BY ity of tablet 00:00: MOUTH [place] 00 EVERY DAY [facility] SINGULAIR 2015-09 Yes TAKE 1 Univer s 10 mg 1-01 TABLET BY ity of tablet 00:00: MOUTH [place] 00 EVERY DAY [facility] SINGULAIR 2015-09 Yes TAKE 1 Univer s 10 mg 1-01 TABLET BY ity of tablet 00:00: MOUTH [place] 00 EVERY DAY [facility] labetalol Yes TAKE 1 Univer s (TRANDATE) 9-29 TABLET BY ity of 300 mg 00:00: MOUTH [place] tablet 00 EVERY 12 MD HOURS [facility] potassium Yes TAKE ONE Univ ers chloride 9-29 TABLET BY ity of (Stephanie-KATHY MARQUEZ 00:00: MOUTH [place] -CON M) 10 00 TWICE MD mEq tablet DAILY [facility] labetalol Yes TAKE 1 Univer s (TRANDATE) 9-29 TABLET BY ity of 300 mg 00:00: MOUTH [place] tablet 00 EVERY 12 MD HOURS [facility] potassium 2015- Yes TAKE ONE Univ ers chloride 9-29 TABLET BY ity of (K-KATHY MARQUEZ 00:00: MOUTH [place] -CON M) 10 00 TWICE MD mEq tablet DAILY [facility] labetalol Yes TAKE 1 Univer s (TRANDATE) 9-29 TABLET BY ity of 300 mg 00:00: MOUTH [place] tablet 00 EVERY 12 MD HOURS [facility] potassium Yes TAKE ONE Univ ers chloride 9-29 TABLET BY ity of (K-DUR,KLOR 00:00: MOUTH [place] -CON M) 10 00 TWICE MD mEq tablet DAILY [facility] folic acid Yes TAKE ONE Uni vers (FOLVITE) 1 9-22 TABLET BY ity of mg tablet 00:00: MOUTH [place] 00 DAILY [facility] torsemide Yes TAKE 2 Univer s (DEMADEX) 9-22 TABLETS BY ity of 20 mg 00:00: MOUTH ONCE [place] tablet 00 DAILY [facility] folic acid Yes TAKE ONE Uni vers (FOLVITE) 1 9-22 TABLET BY ity of mg tablet 00:00: MOUTH [place] 00 DAILY [facility] torsemide Yes TAKE 2 Univer s (DEMADEX) 9-22 TABLETS BY ity of 20 mg 00:00: MOUTH ONCE [place] tablet 00 DAILY [facility] folic acid Yes TAKE ONE Uni vers (FOLVITE) 1 9-22 TABLET BY ity of mg tablet 00:00: MOUTH [place] 00 DAILY [facility] torsemide Yes TAKE 2 Univer s (DEMADEX) 9-22 TABLETS BY ity of 20 mg 00:00: MOUTH ONCE [place] tablet 00 DAILY [facility] ALPRAZolam Yes TAKE 1 Unive rs (XANAX) 9-03 TABLET BY ity of 0.25 mg 00:00: MOUTH 4 [place] tablet 00 TIMES A OK DAY FOR 30 [facility] ALPRAZolam Yes TAKE 1 Unive rs (XANAX) 9-03 TABLET BY ity of 0.25 mg 00:00: MOUTH 4 [place] tablet 00 TIMES A [facility] 1 Unive rs (XANAX) 9-03 TABLET BY ity of 0.25 mg 00:00: MOUTH 4 [place] tablet 00 TIMES A MD DAY FOR 30 Anderso DAYS [facility] tamsulosin Yes TAKE ONE Uni vers (FLOMAX) 8-25 CAPSULE ity of 0.4 mg 24 00:00: EVERY [place] hr capsule 00 EVENING MD [facility] tamsulosin Yes TAKE ONE Uni vers (FLOMAX) 8-25 CAPSULE ity of 0.4 mg 24 00:00: EVERY [place] hr capsule 00 EVENING MD [facility] tamsulosin Yes TAKE ONE Uni vers (FLOMAX) 8-25 CAPSULE ity of 0.4 mg 24 00:00: EVERY [place] hr capsule 00 [facility]rav[facility] Yes TAKE ONE Un christian (PRAVACHOL) 8-10 TABLET BY ity of 40 mg 00:00: MOUTH IN [place] tablet 00 THE LATE OK EVENING Anderso DAILY. [facility] pravastatin 2021- No TAKE ONE U nivers (PRAVACHOL) 8-10 -21 TABLET BY it y of 40 mg 00:00: 00:00 MOUTH IN [place] tablet 00 :00 THE LATE MD EVENING Anderso DAILY. [facility] pravastatin 2021- No TAKE ONE U nivers (PRAVACHOL) 8-10 -21 TABLET BY it y of 40 mg 00:00: 00:00 MOUTH IN [place] tablet 00 :00 THE LATE OK [facility] labetalol Yes TAKE 2 Univer s (TRANDATE) 8-04 TABLETS BY ity of 200 mg 00:00: MOUTH [place] tablet 00 TWICE A OK DAY [facility] labetalol Yes TAKE 2 Univer s (TRANDATE) 8-04 TABLETS BY ity of 200 mg 00:00: MOUTH [place] tablet 00 TWICE A MD DAY [facility] labetalol Yes TAKE 2 Univer s (TRANDATE) 8-04 TABLETS BY ity of 200 mg 00:00: MOUTH [place] tablet 00 TWICE A OK DAY [facility] metolazone metolazone No 1 Q1D metolazone [place] 2.5 mg 2.5 mg 2.5 mg [facility] [...] route. route. route. Novolin Novolin No Novolin [place] 70/30 U-100 70/30 U-100 70/30 [facility] [...] UNITS EVERY EVENING potassium potassium No potassium [place] chloride ER chloride ER chloride [facility] 10 mEq 10 mEq ER 10 mEq Urolog y tablet,exte tablet,exte tablet,ext nded nded ended release(par release(par release(pa t/cryst) t/cryst) rt/cryst) TAKE 2 TAKE 2 TAKE 2 TABLETS BY TABLETS BY TABLETS BY MOUTH EVERY MOUTH EVERY MOUTH DAY DAY EVERY DAY pravastatin pravastatin No pravastati [place] 80 mg 80 mg n 80 mg [facility] tablet TAKE tablet TAKE tablet Urology 1 TABLET BY 1 TABLET BY TAKE 1 MOUTH EVERY MOUTH EVERY TABLET BY DAY DAY MOUTH EVERY DAY sertraline sertraline No sertraline [place] 50 mg 50 mg 50 mg [facility] tablet TAKE tablet TAKE tablet Urology 1 TABLET BY 1 TABLET BY TAKE 1 MOUTH EVERY MOUTH EVERY TABLET BY DAY DAY MOUTH EVERY DAY Singulair Singulair No 1 Q1D Singulair [place] 10 mg 10 mg 10 mg [facility] tablet Take tablet Take tablet Urology 1 tablet 1 tablet Take 1 every day every day tablet by oral by oral every day route. route. by oral route. tacrolimus tacrolimus No tacrolimus [place] 0.5 mg 0.5 mg 0.5 mg [facility] capsule, capsule, capsule, Uro logy immediate-r immediate-r immediate- elease TAKE elease TAKE release 1 CAPSULE 1 CAPSULE TAKE 1 BY MOUTH 2 BY MOUTH 2 CAPSULE BY TIMES A TIMES A MOUTH 2 DAY. DAY. TIMES A DAY. tamsulosin tamsulosin No 1capsul BID tamsulosin [place] 0.4 mg 0.4 mg e(s) 0.4 mg [...] B1) B1) B1) torsemide torsemide No torsemide [place] 20 mg 20 mg 20 mg [facility] tablet TAKE tablet TAKE tablet Urology 2 TABLETS 2 TABLETS TAKE 2 (40 MG (40 MG TABLETS TOTAL) BY TOTAL) BY (40 MG MOUTH MOUTH TOTAL) BY DAILY. DAILY. MOUTH DAILY. tramadol 50 tramadol 50 No tramadol [place] mg tablet mg tablet 50 mg Metr o TAKE 1 TAKE 1 tablet Urology TABLET BY TABLET BY TAKE 1 MOUTH EVERY MOUTH EVERY TABLET BY 4 HOURS 4 HOURS MOUTH NEEDED FOR NEEDED FOR EVERY 4 PAIN PAIN HOURS NEEDED FOR PAIN Alive Alive No Alive [place] Calcium-Vit Calcium-Vit Calcium-Vi [facility] rosas D3 rosas D3 tamin D3 Urolo gy allopurinol allopurinol No allopurino [place] 100 mg 100 mg l 100 mg [facility] tablet TAKE tablet TAKE tablet Urology 1 TABLET BY 1 TABLET BY TAKE 1 MOUTH TWICE MOUTH TWICE TABLET BY A DAY A DAY MOUTH TWICE A DAY alprazolam alprazolam No alprazolam [place] 0.5 mg 0.5 mg 0.5 mg [facility] tablet ORAL tablet ORAL tablet Urology TAKE 1 TAKE 1 ORAL TAKE TABLET BY TABLET BY 1 TABLET MOUTH FOUR MOUTH FOUR BY MOUTH TIMES A DAY TIMES A DAY FOUR TIMES A DAY amlodipine amlodipine No amlodipine [place] 5 mg tablet 5 mg tablet 5 [...] route. route. route. cranberry cranberry No cranberry [place] [facility] ferrous ferrous No ferrous [place] sulfate sulfate sulfate [facility] finasteride finasteride No finasterid [place] 5 mg tablet 5 mg tablet e [...] folic acid folic acid No folic acid [place] 1 mg tablet 1 mg tablet 1 mg M etro TAKE 1 TAKE 1 tablet Urology TABLET BY TABLET BY TAKE 1 MOUTH EVERY MOUTH EVERY TABLET BY DAY DAY MOUTH EVERY DAY gabapentin gabapentin No gabapentin [place] 400 mg 400 mg 400 mg [facility] capsule capsule capsule Urolog y TAKE 1 TAKE 1 TAKE 1 CAPSULE BY CAPSULE BY CAPSULE BY MOUTH THREE MOUTH THREE MOUTH TIMES A DAY TIMES A DAY THREE TIMES A DAY isosorbide isosorbide No isosorbide [place] mononitrate mononitrate mononitrat [facility] ER 30 mg ER 30 mg e ER 30 mg U rology tablet,exte tablet,exte tablet,ext nded nded ended release 24 release 24 release 24 hr TAKE 1 hr TAKE 1 hr TAKE 1 TABLET BY TABLET BY TABLET BY MOUTH EVERY MOUTH EVERY MOUTH DAY DAY EVERY DAY magnesium magnesium No magnesium [place] oxide 400 oxide 400 oxide 400 [facility] mg (241.3 mg (241.3 mg (241.3 Urology mg mg mg magnesium) magnesium) magnesium) tablet TAKE tablet TAKE tablet 1 TABLET BY 1 TABLET BY TAKE 1 MOUTH TWICE MOUTH TWICE TABLET BY A DAY A DAY MOUTH TWICE A DAY Immunizations Ordered Filled Immunization Date Status Comments [facility] e Immunization Name Name Sushma 2022-09-25 Completed [facility] 00:00:00 [facility] 2022-09-24 Completed [facility] 00:00:00 [facility] 2022-09-23 Completed [facility] 00:00:00 [facility] 2022-09-22 Completed [facility] 00:00:00 [facility] 2022-09-21 Completed [facility] 00:00:00 [facility] pneumococcal pneumococcal 2021-08-27 Completed [place] Me tro conjugate PCV 13 conjugate PCV 13 00:00:00 Jose Luis willson Pneumococcal 2021-08-27 Completed [facility] Con[facility] 2021-08-27 Completed [facility] Conjugate 13-Valent 00:00:00 [facility]osp connor SARS-COV-2 COVID-19 2021-06-23 [facility] MODERNA VACCINE 00:00:00 [facility] MODERNA COVID-19 2021-06-23 Completed [facility] MRNA VACCINATION 00:00:00 Hospital MODERNA COVID-19 2021-06-23 Completed [facility] t MRNA VACCINATION 00:00:00 [facility] COVID-19, mRNA, COVID-19, mRNA, 2021-06-16 Completed [place] [facility] LNP-S, PF, 100 LNP-S, PF, 100 00:00:00 Urolog y mcg/0.5 mL dose mcg/0.5 mL dose (Moderna) (Moderna) MODERNA COVID-19 2021-06-16 Completed [facility] t MRNA VACCINATION 00:00:00 [facility] MODERNA COVID-19 2021-06-16 Completed Method[facility] t MRNA VACCINATION 00:00:00 [facility] COVID-19, mRNA, COVID-19, mRNA, 2020-12-16 Completed [place] [facility] LNP-S, PF, 100 LNP-S, PF, 100 00:00:00 Urolog y mcg/0.5 mL dose mcg/0.5 mL dose (Moderna) (Moderna) MODERNA COVID-19 2020-12-16 Completed [facility] MRNA VACCINATION 00:00:00 Hospital MODERNA COVID-19 2020-12-16 Completed [facility] t MRNA VACCINATION 00:00:00 [facility] COVID-19, mRNA, COVID-19, mRNA, 2020-11-18 Completed [place] [facility] LNP-S, PF, 100 LNP-S, PF, 100 00:00:00 Urolog y mcg/0.5 mL dose mcg/0.5 mL dose (Moderna) (Moderna) MODERNA COVID-19 2020-11-18 Completed [facility] MRNA VACCINATION 00:00:00 Hospital MODERNA COVID-19 2020-11-18 Completed [facility] MRNA VACCINATION 00:00:00 [place] [id number] 2020-10-31 Completed [facility] MRNA VACCINATION 00:00:00 [place] [id number] 2020-10-31 Completed [facility] MRNA VACCINATION 00:00:00 [place] [id number] 2020-10-03 Completed [facility] t MRNA VACCINATION 00:00:00 [place] [id number] 2020-10-03 Completed Method[facility] t MRNA VACCINATION 00:00:00 [facility] Pneumococcal 2020-07-09 Completed [facility] Conjugate 13-Valent 00:00:00 Hospi connor Pneumococcal 2020-07-09 Completed [facility] Conjugate 13[facility] Vital Signs Vital Name Observation Time Observation Value Comments Source Height 2022-02-10 00:00:00 69.5 [in_i] [facility] BMI (Body Mass 2022-02-10 00:00:00 25.5 kg/m[facility] Body Weight 2022-02-10 00:00:00 175 [lb_av] [facility] Systolic blood 2022-10-26 18:04:00 181 mm[Hg] [facility] pressure Diastolic blood 2022-10-26 18:04:00 83 mm[Hg] [facility] [address] [facility] pressure Heart rate 2022-10-26 18:04:00 101 /min [facility] Body temperature 2022-10-26 18:04:00 36.33 [place] [facility] Respiratory rate 2022-10-26 18:04:00 18 /min [facility] Body height 2022-10-26 18:04:00 175.3 cm [facility] Body weight 2022-10-26 18:04:00 84.233 kg [facility] BMI 2022-10-26 18:04:00 27.42 kg/m2 [facility] Oxygen saturation in 2022-10-26 18:04:00 93 /min [facility] Arterial blood by Pulse oximetry Systolic blood 2022-09-02 18:57:00 111 mm[Hg] Method [facility] pressure Diastolic blood 2022-09-02 18:57:00 55 mm[Hg] [facility] [address] [facility] pressure Heart rate 2022-09-02 18:57:00 73 /min [facility] Body temperature 2022-09-02 18:57:00 36.06 Genevieve [facility] Body height 2022-09-02 18:57:00 175.3 cm [facility] Body weight 2022-09-02 18:57:00 85.73 kg [facility] BMI 2022-09-02 18:57:00 27.91 kg/m2 [facility] Oxygen saturation in 2022-09-02 18:57:00 91 /min [facility] Arterial blood by Pulse oximetry Respiratory rate 2022-06-03 18:41:00 18 /min [facility] Systolic blood 2022-03-17 15:34:42 103 mm[Hg] Univer [facility]ity of pressure [facility] Diastolic blood 2022-03-17 15:34:42 60 mm[Hg] Unive rsity of pressure [facility] Heart rate 2022-03-17 15:34:42 77 /min [facility]i ty of [facility] Body temperature 2022-03-17 15:34:42 36.39 [place] Univ ersity [facility] Respiratory rate 2022-03-17 15:34:42 16 /min Univ ersity of [facility] Oxygen saturation in 2022-03-17 15:34:42 92 /min University of Arterial blood by Jacky garay Pulse oximetry [facility] Center Systolic blood 2022-02-24 19:25:00 178 mm[Hg] Univer sity of pressure [facility] Diastolic blood 2022-02-24 19:25:00 89 mm[Hg] Unive rsity of pressure [facility] Heart rate 2022-02-24 19:25:00 86 /min Universi ty [facility] Body temperature 2022-02-24 19:25:00 37 [place] Univ ersity [facility] Oxygen saturation in 2022-02-24 19:25:00 94 /min University of Arterial blood by Jacky wolfeon Pulse oximetry [facility] Respiratory rate 2022-02-24 16:19:00 14 /min [facility] Respitory Rate 2018-04-18 23:44:00 Maxim Syedann Heart Rate 2018-04-18 23:44:00 [facility] Systolic (mm Hg) 2018-04-18 23:44:00 Shine rial Sae Diastolic (mm Hg) 2018-04-18 23:44:00 Mem orial Sae Temperature Oral (F) 2018-04-18 23:44:00 97.5 F [facility] [place] Heart Rate 2018-04-18 17:46:00 [facility] [place] Respitory Rate 2018-04-18 17:46:00 Memori al [place] Temperature Oral (F) 2018-04-18 17:46:00 97.8 F [facility] Systolic (mm Hg) 2018-04-18 17:46:00 Shine rial [place] Diastolic (mm Hg) 2018-04-18 17:46:00 Mem orial [place] Systolic (mm Hg) 2018-04-18 14:34:00 Shine rial [place] Diastolic (mm Hg) 2018-04-18 14:34:00 Mem orial Sae Temperature Oral (F) 2018-04-18 14:34:00 97.5 F [facility] [place] Heart Rate 2018-04-18 14:34:00 [facility] [place] Respitory Rate 2018-04-18 14:34:00 [place] [facility] Weight 2018-04-09 02:59:00 [facility] BMI Calculated 2018-04-09 02:59:00 Memori al Sae Height 2018-04-09 02:59:00 175.26 cm [facility] Sae Procedures Procedure Date / Time Performing Clinician Source Performed RAD ONC COURSE SUMMARY 2022-11-02 21:58:37 Provider, Unknown [facility] RAD ONC DAILY TREATMENT 2022-11-02 17:47:44 Provider, Unknown [facility] RAD ONC DAILY TREATMENT 2022-10-30 17:54:31 Provider, Unknown [facility] RAD ONC DAILY TREATMENT 2022-10-28 17:47:03 Provider, Unknown [facility] RAD ONC DAILY TREATMENT 2022-10-26 17:52:02 Provider, Unknown [facility] RAD ONC DAILY TREATMENT 2022-10-22 18:04:45 Provider, Unknown [facility] COMPREHENSIVE METABOLIC 2022-10-15 16:47:00 Khalida Faulkner [facility] PANEL CBC HEMOGRAM 2022-10-15 16:47:00 KaushikKhalida Ho spital [id number] TACROLIMUS LEVEL, 2022-10-15 16:47:00 [facility] RANDOM [id number] TACROLIMUS LEVEL, 2022-09-30 15:44:00 [facility] RANDOM COMPREHENSIVE METABOLIC 2022-09-30 15:44:00 [facility] PANEL POTASSIUM LEVEL 2022-09-25 18:49:00 [facility] Misael POC GLUCOSE 2022-09-25 16:50:00 Savannah Blank Ho spital POC GLUCOSE 2022-09-25 14:39:00 Savannah Blank spital CBC WITH PLATELET AND 2022-09-25 11:32:00 Danica [facility] DIFFERENTIAL [place] BASIC METABOLIC PANEL 2022-09-25 11:32:00 Danica [facility] Vincent [id number] TACROLIMUS LEVEL, 2022-09-25 11:32:[facility] [place] MAGNESIUM LEVEL 2022-09-25 11:32:00 [facility] Misael PHOSPHORUS LEVEL 2022-09-25 11:32:00 [facility] Misael PROCALCITONIN 2022-09-25 11:32:00 Corona Mejia spital C-REACTIVE PROTEIN 2022-09-25 11:32:00 [facility] 2022-09-25 11:32:00 Manjeet Mishra spital [place] POC GLUCOSE 2022-09-25 03:21:00 Savannah Blank spital POC GLUCOSE 2022-09-24 23:09:00 Savannah Blank spital DURABLE MEDICAL EQUIPMENT 2022-09-24 19:20:[address] [facility] POC GLUCOSE 2022-09-24 18:29:00 Savannah Blank Ho spital POC GLUCOSE 2022-09-24 14:31:00 Savannah Blank spital METHICILLIN-RESISTANT 2022-09-24 11:38:00 [facility] STAPHYLOCOCCUS AUREUS Kiet (MRSA), FREDDIE [id number] TACROLIMUS LEVEL, 2022-09-24 11:38:00 [facility] Kiet CBC WITH PLATELET AND 2022-09-24 09:08:00 Danica [facility] DIFFERENTIAL [place] BASIC METABOLIC PANEL 2022-09-24 09:08:00 [facility] Vincent [id number] TACROLIMUS LEVEL, 2022-09-24 09:08:00 Danica [facility] RANDOM [place] MAGNESIUM LEVEL 2022-09-24 09:08:00 [facility] Misael PHOSPHORUS LEVEL 2022-09-24 09:08:00 [facility] Misael OSMOLALITY, SERUM 2022-09-24 09:08:00 Roberto [facility] ESTIMATED GFR 2022-09-24 09:08:00 Manjeet Mishra spital [place] POC GLUCOSE 2022-09-24 03:08:00 [facility] 2022-09-24 00:33:00 [facility]t Blank[facility]ita [facility] POC GLUCOSE 2022-09-23 18:32:00 Chet Blankchita [facility] spital POC GLUCOSE 2022-09-23 14:30:00 Chet Blankchita [facility] spital CBC WITH PLATELET AND 2022-09-23 10:42:00 Tyree [facility] DIFFERENTIAL COMPREHENSIVE METABOLIC 2022-09-23 10:42:00 Tyree [facility] PANEL CYTOMEGALOVIRUS BY PCR 2022-09-23 10:42:00 Manjeet Mishra [facility] Vincent IMMUNOGLOBULIN G 2022-09-23 10:42:00 Manjeet Mishra ospital [place] PHENYTOIN LEVEL 2022-09-23 10:42:00 Yash Fontaine ospital FREE PHENYTOIN LEVEL 2022-09-23 10:42:00 [facility]South [facility] MAGNESIUM LEVEL 2022-09-23 10:42:00 ChrissyBr[facility] Misael PHOSPHORUS LEVEL 2022-09-23 10:42:00 Farhad Lowe [facility] Misael [id number] TACROLIMUS LEVEL, 2022-09-23 10:42:00 [facility] Kiet BILIRUBIN DIRECT 2022-09-23 10:42:00 Manjeet Mishra H ospital Vincent ESTIMATED GFR 2022-09-23 10:42:00 Savannah Blank Ho spital DONOR SPECIFIC ANTIBODY 2022-09-23 10:42:00 [facility] Vincent POC GLUCOSE 2022-09-23 10:25:00 Savannah Blank Ho spital POC GLUCOSE 2022-09-23 09:16:00 Savannah Blank Ho spital POC GLUCOSE 2022-09-23 08:15:00 Savannah Blank Ho spital POC GLUCOSE 2022-09-23 07:58:00 Savannah Blank Ho spital POC GLUCOSE 2022-09-23 03:23:00 Savannah Blank Ho spital POC GLUCOSE 2022-09-23 00:29:00 Savannah Blank Ho spital LACTIC ACID LEVEL 2022-09-22 23:26:00 Manjeet Mishra [facility] Vincent POC GLUCOSE 2022-09-22 18:18:[address] CHEST WO CONTRAST 2022-09-22 17:52:21 [facility]AST 2022-09-22 17:52:02 Manjeet Mishra [facility] TTE COMPLETE, W CONTRAST, W 2022-09-22 15:30:00 Al Cadet [facility] DOPPLER ([id number]) Muyiwa POC GLUCOSE 2022-09-22 14:26:00 Savannah Blank Ho spital POC GLUCOSE 2022-09-22 12:36:00 Savannah Blank spital FK506 TACROLIMUS LEVEL, 2022-09-22 12:19:00 [facility] R[facility]OM Kiet POC GLUCOSE 2022-09-22 12:00:00 Savannah Blank spital CBC WITH PLATELET AND 2022-09-22 10:07:[address] [facility] DIFFERENTIAL COMPREHENSIVE METABOLIC 2022-09-22 10:07:00 Tyree [facility] PANEL FK506 TACROLIMUS LEVEL, 2022-09-22 10:07:00 Alicia Blank [facility] TROUGH ESTIMATED GFR 2022-09-22 10:07:00 Savannah Blank spital POC GLUCOSE 2022-09-22 03:15:00 [facility]t [facility] BLOOD CULTURE, AEROBIC & 2022-09-22 01:14:00 [facility] ANAEROBIC Ruby BLOOD CULTURE, AEROBIC & 2022-09-22 01:12:00 [facility] ANAEROBIC Ruby POC GLUCOSE 2022-09-22 00:00:00 Chet Blankchita [facility] spital TROPONIN T 2022-09-21 22:36:[address] [facility] [address] [facility] STONE PROTOCOL 2022-09-21 21:14:18 [facility] Ruby TROPONIN T 2022-09-21 19:07:00 [facility] POC GLUCOSE 2022-09-21 18:35:00 Chet Blankchita [facility] spital TROPONIN T 2022-09-21 14:59:00 [facility] ECG 12-LEAD 2022-09-21 14:30:33 [facility] URINE CULTURE 2022-09-21 11:39:00 [facility] URINALYSIS SCREEN AND 2022-09-21 11:39:00 [facility], WITH REFLEX TO CULTURE B NATRIURETIC PEPTIDE 2022-09-21 10:19:[address] [facility] CBC WITH PLATELET AND 2022-09-21 10:18:[address] [facility] DIFFERENTIAL SEDIMENTATION RATE 2022-09-21 10:18:00 [facility] RESPIRATORY PATHOGEN PANEL 2022-09-21 10:17:00 [facility] WITH COVID-19 RT-PCR [facility] [id number] TACROLIMUS LEVEL, 2022-09-21 10:15:00 [facility] TROUGH [facility] LIPASE LEVEL 2022-09-21 10:15:00 [facility] COMPREHENSIVE METABOLIC 2022-09-21 10:15:00 [facility] PANEL C-REACTIVE PROTEIN 2022-09-21 10:15:00 [facility] LACTIC ACID LEVEL 2022-09-21 10:15:[address] [facility] LDH 2022-09-21 10:15:00 Tyree [facility] spital PROCALCITONIN 2022-09-21 10:15:00 Tyree [facility] spital TROPONIN T 2022-09-21 10:15:00 Tyree [facility] spital ESTIMATED GFR 2022-09-21 10:15:00 Tyree [facility] spital ESTIMATED GFR 2022-09-21 09:38:00 Tyree [facility] spital XR CHEST 1 VW PORTABLE 2022-09-21 08:37:45 Tyree [facility] POC GLUCOSE 2022-09-21 06:42:00 [facility] MRI ABDOMEN W WO CONTRAST 2022-09-02 17:00:00 Tracy Bailey [facility] ALPHA FETOPROTEIN 2022-09-02 14:50:00 Tracy Bailey [facility] CBC WITH PLATELET AND 2022-09-02 14:50:00 [facility] DIFFERENTIAL COMPREHENSIVE METABOLIC 2022-09-02 14:50:[address] [facility] PANEL BILIRUBIN DIRECT 2022-09-02 14:50:00 Tracy Bailey [facility] MAGNESIUM LEVEL 2022-09-02 14:50:00 [facility] ospital PROTHROMBIN TIME WITH INR 2022-09-02 14:50:00 Tracy Bailey [facility] HEPATOCELLULAR CARCINOMA 2022-09-02 14:50:[address] [facility] MARKER PANEL CANCER ANTIGEN 19-9 2022-09-02 14:50:00 Tracy Bailey [facility] ESTIMATED GFR 2022-09-02 14:50:00 [facility] ospital MRI ABDOMEN W WO CONTRAST 2022-06-03 16:05:[address] [facility] [address] CHEST WO CONTRAST 2022-06-03 14:33[facility]00 [facility]ABOLIC 2022-06-03 13:37:00 [facility] PANEL BILIRUBIN DIRECT 2022-06-03 13:37:00 [facility] ospital PROTHROMBIN TIME WITH INR 2022-06-03 13:37:00 [facility] HEPATOCELLULAR CARCINOMA 2022-06-03 13:37:00 [facility] MARKER PANEL ALPHA FETOPROTEIN 2022-06-03 13:37:00 [facility] ESTIMATED GFR 2022-06-03 13:37:00 Yoselyn [facility] spital CBC WITH PLATELET AND 2022-05-01 15:02:00 [facility] DIFFERENTIAL COMPREHENSIVE METABOLIC 2022-05-01 15:02:00 [facility] PANEL HEMOGLOBIN A1C 2022-05-01 15:02:00 [facility] VITAMIN D 25 HYDROXY LEVEL 2022-05-01 15:02:00 [facility] MICROALBUMIN / CREATININE 2022-05-01 15:02:00 [facility] URINE RATIO LIPID PANEL 2022-05-01 15:02:00 [facility] T4, FREE 2022-05-01 15:02:00 [facility] THYROID STIMULATING HORMONE 2022-05-01 15:02:00 [facility] Zev [facility] PATHOLOGY BIOPSY 2022-03-17 22:20:00 Benjamin Amaya [facility] INTERPRETATION MD Esquivel [facility] NM BONE SCAN WHOLE BODY 2022-02-25 17:34:[address] [facility] MRI ABDOMEN W WO CONTRAST 2022-02-25 16:05:00 Tracy Bailey [facility] COMPREHENSIVE METABOLIC 2022-02-25 13:40:00 Tracy Bailey [facility] PANEL BILIRUBIN DIRECT 2022-02-25 13:40:00 Tracy Bailey [facility] PROTHROMBIN TIME WITH INR 2022-02-25 13:40:00 Tracy Bailey [facility] HEPATOCELLULAR CARCINOMA 2022-02-25 13:40:[address] [facility] MARKER PANEL ESTIMATED GFR 2022-02-25 13:40:00 Tracy Bailey [facility] ospital PATHOLOGY BIOPSY 2022-02-09 16:10:00 Benjamin Amaya [facility] INTERPRETATION [facility] NM Y-90 PHASE 2 SPECT 2022-01-21 20:43:00 Tracy Bailey [facility] NM Y90 THERASPHERES THERAPY 2022-01-21 20:42:36 Tracy Bailey [facility] IR RADIOEMBOLIZATION 2022-01-21 17:05:00 Tracy Bailey [facility] IR 3D RECON SLICES 2022-01-21 17:05:00 Tracy Bailey [facility] SNAPSHOTS RDMPS POC GLUCOSE 2022-01-21 16:41:00 Tracy Bailey [facility] ospital POC GLUCOSE 2022-01-21 13:42:00 [facility] ospital NM Y-90 PHASE 1 SPECT 2022-01-12 18:51:26 Tracy Bailey [facility] IR 3D RECON SLICES 2022-01-12 18:07:38 Tracy Bailey [facility] SNAPSHOTS RDMPS IR RADIOEMBOLIZATION 2022-01-12 18:04:00 Tracy Bailey [facility] POC GLUCOSE 2022-01-12 13:28:00 Tracy Bailey [facility] ospital MRI ABDOMEN W WO CONTRAST 2021-12-25 19:28:[address] [facility] MRI PELVIS W WO CONTRAST 2021-12-25 19:02:[address] [facility] CBC WITH PLATELET AND 2021-12-25 16:50:00 Tracy Bailey [facility] DIFFERENTIAL COMPREHENSIVE METABOLIC 2021-12-25 16:50:[address] [facility] PANEL PROTHROMBIN TIME WITH INR 2021-12-25 16:50:00 Tracy Bailey [facility] ESTIMATED GFR 2021-12-25 16:50:00 Tracy Bailey ospital BILIRUBIN DIRECT 2021-12-25 16:50:00 Tracy Bailey [facility] XR CHEST 1 VW 2021-11-26 16:18:00 Smooth Brasher [facility] spital SURGICAL PATHOLOGY REQUEST 2021-11-26 16:13:00 [facility] CT NEEDLE BIOPSY NO 2021-11-26 16:10:29 Tracy Bailey [facility] CONTRAST CYTOLOGY 2021-11-26 15:15:00 Tracy Bailey ospital (NON-GYNECOLOGICAL) REQUEST POC GLUCOSE 2021-11-26 13:52:00 Tracy Bailey H ospital COMPREHENSIVE METABOLIC 2021-11-18 14:02:00 Damasocritical access hospitalYash hicks [facility] PANEL CBC WITH PLATELET AND 2021-11-18 14:02:00 Dmaasocritical access hospitalkurt [facility] DIFFERENTIAL [id number] TACROLIMUS LEVEL, 2021-11-18 14:02:00 Yash Fontaine [facility] RANDOM POC GLUCOSE 2021-11-15 19:40:00 Janet Zendejas Ho spital POC GLUCOSE 2021-11-15 15:23:00 PosJanet garcia Ho spital HC COMPLETE BLD COUNT 2021-11-15 11:22:00 India Blank [facility] W/AUTO DIFF Natvarlal FK506 TACROLIMUS LEVEL, 2021-11-15 11:22:00 Mary Mike [facility] TROUGH ALPHA FETOPROTEIN 2021-11-15 11:22:00 [facility]ER ANTIGEN 19-9 2021-11-15 11:22:00 [facility] CARCINOEMBRYONIC ANTIGEN 2021-11-15 11:22:00 [facility] ([facility] BASIC METABOLIC PANEL 2021-11-15 11:22:00 [facility] Misael MAGNESIUM LEVEL 2021-11-15 11:22:00 [facility] Misael PHOSPHORUS LEVEL 2021-11-15 11:22:00 [facility] Misael HEPATIC FUNCTION PANEL 2021-11-15 11:22:00 [facility] ESTIMATED GFR 2021-11-15 11:22:00 [facility] Misael POC GLUCOSE 2021-11-15 03:41:00 PosJanet garcia Ho spital POC GLUCOSE 2021-11-15 00:09:00 Janet Zendejas Ho spital POC GLUCOSE 2021-11-14 19:06:00 Janet Zendejas Ho spital POC GLUCOSE 2021-11-14 13:46:00 Janet Zendejas Ho spital BASIC METABOLIC PANEL 2021-11-14 11:36:00 [facility] Natvarlal HC COMPLETE BLD COUNT 2021-11-14 11:36:00 [facility] W/AUTO DIFF Natvarlal MAGNESIUM LEVEL 2021-11-14 11:36:00 India Blank H ospital Natvarlal PHOSPHORUS LEVEL 2021-11-14 11:36:00 [facility] Misael ESTIMATED GFR 2021-11-14 11:36:00 India Blank H ospital Natvarlal FK506 TACROLIMUS LEVEL, 2021-11-14 11:36:00 Janet Zendejas [facility] RANDOM POC GLUCOSE 2021-11-14 03:02:00 Janet Zendejas Ho spital CT ABDOMEN PELVIS W 2021-11-14 00:52:44 Geraldine Braun [facility] CONTRAST POC GLUCOSE 2021-11-14 00:20:00 Janet Zendejas Ho spital POC GLUCOSE 2021-11-13 18:39:00 Janet Zendejas spital BASIC METABOLIC PANEL 2021-11-13 15:05:00 Aashish [facility] HC COMPLETE BLD COUNT 2021-11-13 15:05:00 Aashish [facility] W/AUTO DIFF ESTIMATED GFR 2021-11-13 15:05:00 Janet Zendejas spital FK506 TACROLIMUS LEVEL, 2021-11-13 15:05:00 Aashish [facility] TROUGH POC GLUCOSE 2021-11-13 13:49:00 PosJanet garcia spital URINE CULTURE 2021-11-13 06:58:00 Kade [facility] spital URINALYSIS SCREEN AND 2021-11-13 06:58:00 [facility] MICROSCOPY, WITH REFLEX TO CULTURE POC GLUCOSE 2021-11-13 05:33:00 Soha Duran spital ECG 12-LEAD 2021-11-13 04:05:22 Kade, esteban Cordero spital COVID-19 QUALITATIVE RT-PCR 2021-11-13 03:56:00 [facility] HC COMPLETE BLD COUNT 2021-11-13 03:54:00 [facility] W/AUTO DIFF PROTHROMBIN TIME WITH INR 2021-11-13 03:54:00 [facility] PARTIAL THROMBOPLASTIN TIME 2021-11-13 03:54:00 [facility] (PTT) COMPREHENSIVE METABOLIC 2021-11-13 03:54:00 [facility] PANEL LDH 2021-11-13 03:54:00 Kade [facility] Ho spital PHOSPHORUS LEVEL 2021-11-13 03:54:00 [facility] ospital B NATRIURETIC PEPTIDE 2021-11-13 03:54:00 [facility] ESTIMATED GFR 2021-11-13 03:54:00 Kade [facility] ECG 12-LEAD 2021-10-28 16:38:48 Khalida Faulkner spital CV CARDIAC PET STRESS TEST 2021-10-24 17:56:03 Kaushik [facility] CV CARDIAC PET MYOCARDIAL 2021-10-24 17:56:03 Kaushik [facility] PERFUSION IMAGING CT CHEST WO CONTRAST 2021-10-24 15:52:31 Kaushik [facility] ABDOMEN WO CONTRAST PELVIS WO CONTRAST URINE CULTURE 2021-10-24 14:17:00 Khalida Faulkner spital BASIC METABOLIC PANEL 2021-10-24 14:17:00 Kaushik [facility] HC COMPLETE BLD COUNT 2021-10-24 14:17:00 Kaushik [facility] W/AUTO DIFF PHOSPHORUS LEVEL 2021-10-24 14:17:00 Khalida Faulkner ospital MAGNESIUM LEVEL 2021-10-24 14:17:00 Khalida Faulkner spital HEPATIC FUNCTION PANEL 2021-10-24 14:17:00 Kaushik [facility] LIPID PANEL 2021-10-24 14:17:00 Khalida Faulkner spital HEMOGLOBIN A1C 2021-10-24 14:17:00 Khalida Faulkner spital IONIZED CALCIUM 2021-10-24 14:17:00 Khalida Faulkner spital PARATHYROID HORMONE 2021-10-24 14:17:00 Kaushik [facility] T3 2021-10-24 14:17:00 Khalida Faulkner spital T4 2021-10-24 14:17:00 Khalida Faulkner spital THYROID STIMULATING HORMONE 2021-10-24 14:17:00 Kaushik [facility] URIC ACID LEVEL 2021-10-24 14:17:00 Khalida Faulkner spital LDH 2021-10-24 14:17:00 Khalida Faulkner spital TROPONIN T 2021-10-24 14:17:00 Khalida Faulkner spital URINALYSIS SCREEN AND 2021-10-24 14:17:00 Kaushik [facility] MICROSCOPY, WITH REFLEX TO CULTURE B NATRIURETIC PEPTIDE 2021-10-24 14:17:00 [facility] FK506 TACROLIMUS LEVEL, 2021-10-24 14:17:00 [facility] RANDOM VITAMIN D 25 HYDROXY LEVEL 2021-10-24 14:17:00 [facility] PROSTATE SPECIFIC ANTIGEN 2021-10-24 14:17:00 [facility] TESTOSTERONE 2021-10-24 14:17:00 [facility] spital HEPATITIS ACUTE PANEL 2021-10-24 14:17:00 [facility] CYTOMEGALOVIRUS BY PCR 2021-10-24 14:17:00 [facility] ALBUMIN WITH CREATININE AND 2021-10-24 14:17:00 [facility] RATIO, RANDOM URINE PROTHROMBIN TIME WITH INR 2021-10-24 14:17:00 [facility] PROTEIN, URINE, RANDOM 2021-10-24 14:17:00 [facility] CREATININE LEVEL, URINE, 2021-10-24 14:17:00 [facility] RANDOM ESTIMATED GFR 2021-10-24 14:17:00 [facility] SPECIFIC ANTIBODY 2021-10-24 14:17:00 [facility] SARS-COV-2 COVID-19 2021-06-23 15:25:49 Doctor Unassigned, [place] [facility] VACCINE,0.5ML,IM (MODERNA) [facility] Diagnostic Colonoscopy 2019-09-27 00:00:00 Mariah [facility]gd 2018-09-27 00:00:00 David bermeo Urology CARDIO- Heart Transplant 2006-09-27 00:00:00 Jaguar Liuro [facility] CARDIO- Pacemaker Insertion 2000-09-27 00:00:00 David Baxter [facility] HEENT- Cataract Surgery 1999-09-27 00:00:00 Ari Liuro Urology SKIN- Squamous Cell David bermeo [facility] Removal of Gallbladder David Alas etro Urology GI- Inguinal Hernia Hernandez r jean-claude Urology Cardio- Cabg [facility] Plan of Care Planned Activity Planned Date Details Comments Source Future Scheduled 2022-11-03 SHINGLES VACCINES ([address] [facility] Test 19:29:15 of 2) [code = SHINGLES VACCINES (1 of 2)] Future Scheduled 2022-11-03 HEPATITIS B VACCINES Met [facility] Test 19:29:15 (1 of 3 - Risk 3-dose series) [code = HEPATITIS B VACCINES (1 of 3 - Risk 3-dose series)] Future Scheduled 2022-11-03 DIABETIC FOOT EXAM [facility] Test 19:29:15 [code = DIABETIC FOOT EXAM] Future Scheduled 2022-11-03 COVID-19 VACCINE (6 - [facility] Test 19:29:15 Booster for Moderna series) [code = COVID-19 VACCINE (6 - Booster for Moderna series)] Future Scheduled 2022-11-03 INFLUENZA VACCINE Method [facility] Test 19:29:15 [code = INFLUENZA VACCINE] Future Scheduled 2022-11-03 65+ [facility]CCAL [facility] 19:29:15 VACCINE (2 - PPSV23 if available, else PCV20) [code = 65+ PNEUMOCOCCAL VACCINE (2 - PPSV23 if available, else PCV20)] Future Scheduled 2022-11-03 DIABETES: RETINAL EYE [facility] Test 19:29:15 EXAM [code = DIABETES: RETINAL EYE EXAM] Future Scheduled 2022-09-20 SHINGLES VACCINES ([address] [facility] Test 09:00:49 of 2) [code = SHINGLES VACCINES (1 of 2)] Future Scheduled 2022-09-20 HEPATITIS B VACCINES Met [facility] Test 09:00:49 (1 of 3 - Risk 3-dose series) [code = HEPATITIS B VACCINES (1 of 3 - Risk 3-dose series)] Future Scheduled 2022-09-20 DIABETIC FOOT EXAM [facility] Test 09:00:49 [code = DIABETIC FOOT EXAM] Future Scheduled 2022-09-20 COVID-19 VACCINE (6 - [facility] Hospital Test 09:00:49 Booster for Moderna series) [code = COVID-19 VACCINE (6 - Booster for Moderna series)] Future Scheduled 2022-09-20 INFLUENZA VACCINE Method [facility] Test 09:00:49 [code = INFLUENZA VACCINE] Future Scheduled 2022-09-20 65+ PNEUMOCOCCAL Methodi Hospital Test 09:00:49 VACCINE (2 - PPSV23 if available, else PCV20) [code = 65+ PNEUMOCOCCAL VACCINE (2 - PPSV23 if available, else PCV20)] Future Scheduled 2022-09-20 DIABETES: RETINAL EYE Me [facility] Test 09:00:49 EXAM [code = DIABETES: RETINAL EYE EXAM] Diagnostic Test 2022-02-10 urinalysis, dipstick [place] Pending 00:00:00 [code = urinalysis, Urology dipstick] Encounters Start End Encounter Admission Attending Care Care Encounter Source Date/Time Date/Time Type Type Clinicians Facility Department ID 2022-07-27 Outpatient [facility] [id number] [place] 18:36:[address] [place] [address] 2022-01-19 Outpatient SYSTEM, DANIELLA BREWER [id number] 07:08:45 PROVIDER Fidencio huggins 2021-07-04 Outpatient [facility] [id number] [place] 10:47:11 [facility] 2022-11-27 2022-11-27 Outpatient [facility] [id number] [place] 10:00:00 10:00:00 [facility] 2022-11-02 2022-11-02 [facility] Mary Ryan2.840.1 [id number] Methodi 10:47:57 10:47:57 Encounter Tejinder Child [id number] 3.430.2.7 Hospit a 3.645462 [facility] 2022-11-02 2022-11-02 Outpatient [facility] [id number] 00:00:00 00:00:00 [address] 2022-11-02 2022-11-02 Orders Provider, Mary2.840.1 [id number] Methodi 00:00:00 00:00:00 Only Unknown [id number] 3.430.2.7 Hospit a .3.576239 l 8 2022-10-30 2022-10-30 [facility] Tejinder Ryan2.840.1 [id number] Methodi 11:07:22 11:07:22 Encounter Kahlil Aranda [id number] 3.430.2.7 Hospit a .3.261752 l .8 2022-10-30 2022-10-30 Outpatient [facility] [id number] [address] [place] [address] 00:00:00 00:00:00 EDWARD [address] 2022-10-30 2022-10-30 Orders Provider, 1.2.840.1 [id number] Methodi 00:00:00 00:00:00 Only Unknown [id number] 3.430.2.7 Hospit a .3.021566 l .8 2022-10-28 2022-10-28 [facility] Tejinder Ryan 1.2.840.1 [id number] Methodi 10:59:22 10:59:22 Encounter Kahlil Aranda [id number] 3.430.2.7 Hospit a .3.432712 l .8 2022-10-28 2022-10-28 [facility] Connor 1.2.840.1 [id number] Methodi 01:15:00 01:15:00 Encounter Danielcarmen Child [id number] 3.430.2.7 Hospit a .3.583633 l .8 2022-10-28 2022-10-28 Outpatient [facility] [id number] 00:00:00 00:00:[address] 2022-10-28 2022-10-28 [facility]patient [facility] [id number] [address] [place] [address] 00:00:00 00:00:[address] EDWARD [address] 2022-10-28 2022-10-28 Orders Provider, 1.2.840.1 [id number] Methodi 00:00:00 00:00:00 Only Unknown [id number] 3.430.2.7 Hospit a .3.845477 l .8 2022-10-26 2022-10-26 [facility] Connor 1.2.840.1 [id number] Methodi 12:30:00 12:30:00 Encounter Tejinder Child [id number] 3.430.2.7 Hospit a .3.361895 l .8 2022-10-26 2022-10-26 [facility] Connor Danielcarmen HoodAmari 1.2.840.1 [id number] Methodi 11:57:19 11:57:19 Encounter Linda Lafleur [id number] 3.430.2.7 Hospit a .3.079088 l .8 2022-10-26 2022-10-26 [facility] Connor 1.2.840.1 [id number] Methodi 11:05:07 11:05:07 Encounter Tejinder Child [id number] 3.430.2.7 Hospit a .3.959590 l .8 2022-10-26 2022-10-26 Outpatient [facility] [id number] 00:00:00 00:00:00 EDCARMEN 280 Method i 2022-10-26 2022-10-26 Outpatient [facility] [id number] 00:00:00 00:00:00 EDCARMEN 599 Method i 2022-10-26 2022-10-26 Outpatient [facility] [id number] 00:00:00 00:00:[address] 2022-10-26 2022-10-26 Orders Provider, 1.2.840.1 [id number] Methodi 00:00:00 00:00:00 Only Unknown [id number] 3.430.2.7 Hospit a .3.768716 l .8 2022-10-23 2022-10-23 Refill Haider, 1.2.840.1 [id number] Methodi 00:00:00 00:00:[id number] [place] 3.430.2.7 Hospit a .3.743966 l .8 2022-10-22 2022-10-22 [facility] Connor 1.2.840.1 [id number] Methodi 11:02:44 11:02:44 Encounter Danielcarmen Hood. [id number] 3.430.2.7 Hospit a .3.916962 l .8 2022-10-22 2022-10-22 [facility] [id number] [address] 00:00:00 00:00:00 EDCARMEN [address] 2022-10-22 2022-10-22 Orders Provider, 1.2.840.1 [id number] Methodi 00:00:00 00:00:00 Only Unknown 08708.1.[address] 3.430.2.7 Hospit a .3.565991 l .8 2022-10-21 2022-10-21 Travel 1.2.840.1 1.2.044.406 1677 [id number] Methodi 00:00:00 00:00:[address] 3.430.2.7 0.2.7.3.698 Ho spita .3.687467 084.8 l .8 2022-10-21 2022-10-21 Refill Kade, 1.2.840.1 [id number] 35709 Methodi 00:00:00 00:00:[address] 3.430.2.7 Hospit a .3.146332 l .8 2022-10-21 2022-10-21 Refill Kaushik, 1.2.840.1 [id number] 010251 5622 Methodi 00:00:00 00:00:[address] 3.430.2.7 Hospit a .3.892636 l .8 2022-10-19 2022-10-19 Orders Topfer, 1.2.840.1 [id number] 392823 3361 Methodi 00:00:00 00:00:00 Only Tracy 98792.1.[address] 3.430.2.7 Hospit a .3.424893 l .8 2022-10-15 2022-10-15 Travel 1.2.840.1 1.2.783.995 0084 570822 Methodi 00:00:00 00:00:[address] 3.430.2.7 0.2.7.3.698 Ho spita .3.685688 084.8 l .8 2022-10-14 2022-10-14 [facility] 1.2.840.1 [id number] 02896 87465 Methodi 12:32:27 12:32:[address] 3.430.2.7 Hospit a .3.433064 l .8 2022-10-14 2022-10-14 [facility] Connor 1.2.840.1 [id number] 92833 Methodi 10:30:00 10:30:00 Encounter Tejinder Child 13710.1.[address] 3.430.2.7 Hospit a .3.730558 l .8 2022-10-14 2022-10-14 [facility] Tejinder Ryan 1.2.840.1 89921 1011 [id number] Methodi 08:21:21 08:21:21 Encounter Linda Lafleur 27065.1.[address] 3.430.2.7 Hospit a .3.697741 l .8 2022-10-14 2022-10-14 [facility] [id number] [address] [place] 00:00:00 00:00:00 [address]EN [address] 2022-10-14 2022-10-14 [facility]patient [facility] [id number] [address] [place] [address] 00:00:00 00:00:00 EDCARMEN [address] 2022-10-14 2022-10-14 Outpatient [facility] [id number] [address] 00:00:00 00:00:[address] 2022-10-12 2022-10-12 [facility] Connor 1.2.840.1 [id number] 06441 74374 Methodi 14:38:13 14:38:13 Encounter Tejinder Child 30243.1.[address] 3.430.2.7 Hospit a .3.758205 l .8 2022-10-12 2022-10-12 Outpatient CONNOR [facility] [id number] [address] 00:00:00 00:00:00 EDWARD [address] 2022-10-12 2022-10-12 Travel 1.2.840.1 1.2.645.595 1909 819627 Methodi 00:00:00 00:00:[address] 3.430.2.7 0.2.7.3.698 Ho spita .3.808368 084.8 l .8 2022-10-12 2022-10-12 Telephone Boaz Ibarra 1.2.840.1 [id number] Methodi 00:00:00 00:00:[address] 3.430.2.7 Hospit a .3.130249 l .8 2022-10-09 2022-10-09 Orders Rideau, 1.2.840.1 [id number] 562628 2102 Methodi 00:00:00 00:00:00 Only Vero 92605.1.[address] 3.430.2.7 Hospit a .3.995619 l .8 2022-10-09 2022-10-09 Telephone Rideau, 1.2.840.1 [id number] 2100 010263 Methodi 00:00:00 00:00:[address] 3.430.2.7 Hospit a .3.982906 l .8 2022-10-05 2022-10-07 Office Boaz Ibarra 1.2.840.1 [id number] 21 [id number] Methodi 16:30:00 10:55:[address] 3.430.2.7 Hospit a .3.463102 l .8 2022-10-05 2022-10-07 Outpatient BOAZ IBARRA [facility] 580 [id number] [place] 00:00:00 00:00:[address] 2022-10-05 2022-10-05 Travel 1.2.840.1 1.2.534.811 3423 790202 Methodi 00:00:00 00:00:[address] 3.430.2.7 0.2.7.3.698 Ho spita .3.552049 084.8 l .8 2022-10-05 2022-10-05 [facility], 1.2.840.1 [id number] 7232 Methodi 00:00:00 00:00:00 Only Tracy 87917.1.[address] 3.430.2.7 Hospit a .3.143580 l .8 2022-10-02 2022-10-02 [facility] 1.2.840.1 [id number] 670 [id number] Methodi 00:00:00 00:00:00 ion Tracy 32360.1.[address] 3.430.2.7 Hospit a .3.953312 l .8 2022-10-02 2022-10-02 [facility], 1.2.840.1 [id number] 235 [id number] Methodi 00:00:00 00:00:00 ion Tracy 61883.1.[address] 3.430.2.7 Hospit a .3.097196 l .8 2022-10-01 2022-10-01 Zwolle Zach, 1.2.840.1 [id number] 21 [id number] Methodi 00:00:00 00:00:[address] 3.430.2.7 Hospit a .3.338001 l .8 2022-09-29 2022-09-29 [facility], 1.2.840.1 [id number] 910 6706772 Methodi 00:00:00 00:00:00 ion Tracy 49868.1.[address] 3.430.2.7 Hospit a .3.076799 l .8 2022-09-20 2022-09-25 [facility], 1.2.840.1 [id number] 19549 48056 Methodi 23:12:00 16:16:00 Estef[address] Mosqu[address]ata [address]991.[address] 3.430.2.7 Hospit a .3.696150 l .8 2022-09-20 2022-09-[address] [facility] 012 [id number] 14 [place] 00:00:00 00:00:[address] SAVANNAH [address] 2022-02-25 2022-09-24 Office Tracy Bailey 1.2.840.1 [id number] 33 [id number] Methodi 14:00:00 00:08:09 Visit Margaret Topete 30673.1.[address] 3.430.2.7 Hospit a .3.974597 l .8 2022-09-14 2022-09-14 Refill Kaushik, 1.2.840.1 [id number] 733066 9619 Methodi 00:00:00 00:00:[address] 3.430.2.7 Hospit a .3.951817 l .8 2022-09-14 2022-09-14 Refill Kaushik, 1.2.840.1 [id number] 026884 2778 Methodi 00:00:00 00:00:[address] 3.430.2.7 Hospit a .3.807883 l .8 2022-09-11 2022-09-11 Refill Bhimaraj, 1.2.840.1 [id number] 2100 956061 Methodi 00:00:00 00:00:[address] 3.430.2.7 Hospit a .3.382415 l .8 2022-09-11 2022-09-11 Refill Bhimaraj, 1.2.840.1 [id number] 2100 006487 Methodi 00:00:00 00:00:[address] 3.430.2.7 Hospit a .3.296399 l .8 2022-09-02 2022-09-08 Office Asked, No Pcp 1.2.840.1 [id number] [id number] Methodi 13:45:00 00:10:22 Visit Margaret Topete 44061.1.[address] 3.430.2.7 Hospit a .3.322478 l .8 2022-09-02 2022-09-08 Office Asked, No Pcp 1.2.840.1 357648136 [id number] Methodi 13:45:00 00:10:22 Visit Margaret Topete 93115.1.[address] 3.430.2.7 Hospit a .3.499446 l .8 2022-09-08 2022-09-08 Travel 1.2.840.1 1.2.212.446 3828 836027 Methodi 00:00:00 00:00:[address] 3.430.2.7 0.2.7.3.698 Ho spita .3.922612 084.8 l .8 2022-09-08 2022-09-08 Travel 1.2.840.1 1.2.916.588 8061 571348 Methodi 00:00:00 00:00:[address] 3.430.2.7 0.2.7.3.698 Ho spita .3.977759 084.8 l .8 2022-09-03 2022-09-03 Telephone Olya, 1.2.840.1 [id number] 2 [id number] Methodi 00:00:00 00:00:[address] 3.430.2.7 Hospit a .3.561584 l .8 2022-09-03 2022-09-03 [facility] Olya 1.2.840.1 [id number] 848 4621272 Methodi 00:00:00 00:00:00 Only Romica 37541.1.[address] 3.430.2.7 Hospit a .3.629369 l .8 2022-09-03 2022-09-03 Telephone Olya, 1.2.840.1 [id number] 2 [id number] Methodi 00:00:00 00:00:[address] 3.430.2.7 Hospit a .3.778506 l .8 2022-09-03 2022-09-03 Orders Olya, 1.2.840.1 [id number] 734 2563783 Methodi 00:00:00 00:00:00 Only Lefty 63045.1.[address] 3.430.2.7 Hospit a .3.644650 l .8 2022-09-02 2022-09-02 [facility], 1.2.840.1 [id number] 15864 Methodi 09:09:54 23:59:00 Encounter Tracy Gutierrez 59144.1.1 806 s t 3.430.2.7 Hospit a .3.488777 l .8 2022-09-02 2022-09-02 Outpatient [facility] [id number] [address] 00:00:00 00:00:00 TRACY [address] 2022-09-02 2022-09-02 [facility] LEO, 1.2.840.1 [id number] 88338 [place] 00:00:00 00:00:00 Encounter TRACY 25713.1.1 [address] .3.002568 .8 2022-09-02 2022-09-02 Travel 1.2.840.1 1.2.142.216 7143 820089 Methodi 00:00:00 00:00:[address] 3.430.2.7 0.2.7.3.698 Ho spita .3.433619 084.8 l .8 2022-09-02 2022-09-02 Travel 1.2.840.1 1.2.122.995 2797 897149 Methodi 00:00:00 00:00:[address] 3.430.2.7 0.2.7.3.698 Ho spita .3.893530 084.8 l .8 2022-07-09 2022-07-09 Office Dmitri, 1.2.840.1 [id number] 064434 6906 Methodi 13:20:00 13:40:00 Visit Stanley 59081.1.[address] 3.430.2.7 Hospit a .3.669182 l .8 2022-07-09 2022-07-09 Office Dmitri, 1.2.840.1 [id number] 295404 2183 Methodi 13:20:00 13:40:00 Visit Stanley 10599.1.[address] 3.430.2.7 Hospit a .3.065239 l .8 2022-07-09 2022-07-09 Travel 1.2.840.1 1.2.791.294 1166 152132 Methodi 00:00:00 00:00:[address] 3.430.2.7 0.2.7.3.698 Ho spita .3.918656 084.8 l .8 2022-07-09 2022-07-09 Travel 1.2.840.1 1.2.155.533 2145 316495 Methodi 00:00:00 00:00:[address] 3.430.2.7 0.2.7.3.698 Ho spita .3.617734 084.8 l .8 2022-07-06 2022-07-06 Travel 1.2.840.1 1.2.713.628 7758 693947 Methodi 00:00:00 00:00:[address] 3.430.2.7 0.2.7.3.698 Ho spita .3.674563 084.8 l .8 2022-07-06 2022-07-06 Travel 1.2.840.1 1.2.664.450 3708 860617 Methodi 00:00:00 00:00:[address] 3.430.2.7 0.2.7.3.698 Ho spita .3.279056 084.8 l .8 2022-07-02 2022-07-02 Refill [facility], 1.2.840.1 [id number] 716847 5353 Univers 00:00:00 00:00:00 Benjamin 83557.1.1 ity of 3.412.2.7 [place] .3.476976 .8 [facility] 2022-07-02 2022-07-02 Refill Jose Luis, 1.2.840.1 [id number] 757559 6805 Univers 00:00:00 00:00:00 Benjamin 36482.1.1 ity of 3.412.2.7 [place] .3.663731 .8 [facility] 2022-06-28 2022-06-28 Refill Haider, 1.2.840.1 [id number] 799031 7945 Methodi 00:00:00 00:00:[address] [place] 3.430.2.7 Hospit a .3.462498 l .8 2022-06-28 2022-06-28 Refill Haider, 1.2.840.1 633610075 447247 5674 Methodi 00:00:00 00:00:[address] [place] 3.430.2.7 Hospit a .3.305668 l .8 2022-06-19 2022-06-19 Telephone Dmitri, 1.2.840.1 [id number] 2100 434573 Methodi 00:00:00 00:00:[address] 3.430.2.7 Hospit a .3.580707 l .8 2022-06-19 2022-06-19 Telephone Dmitri, 1.2.840.1 [id number] 2099 132757 Methodi 00:00:00 00:00:[address] 3.430.2.7 Hospit a .3.669833 l .8 2022-06-09 2022-06-09 Refill Mnial, 1.2.840.1 [id number] 2099 784932 Methodi 00:00:00 00:00:[address] 3.430.2.7 Hospit a .3.613291 l .8 2022-06-09 2022-06-09 Refill [facility], 1.2.840.1 [id number] 2099 740855 Methodi 00:00:00 00:00:[address] 3.430.2.7 Hospit a .3.911178 l .8 2022-06-04 2022-06-04 Refill [facility], 1.2.840.1 078042178 2100 723040 Methodi 00:00:00 00:00:[address] 3.430.2.7 Hospit a .3.582276 l .8 2022-06-04 2022-06-04 Orders Olya, 1.2.840.1 053899812 383 7120309 Methodi 00:00:00 00:00:00 Only Romica 75490.1.[address] 3.430.2.7 Hospit a .3.173556 l .8 2022-06-04 2022-06-04 [facility] [id number] 2099 371510 Methodi 00:00:00 00:00:[address] 3.430.2.7 Hospit a .3.831182 l .8 2022-06-04 2022-06-04 [facility].840[facility]1 [id number] 417 7705882 Methodi 00:00:00 00:00:00 Only Romica 93439.1.[address] 3.430.2.7 Hospit a .3.339930 l .8 2022-06-03 2022-06-03 [facility], 1.2.840.1 [id number] 61458 55887 Methodi :31:07 23:59:00 Encounter Margaret 81886.1.[address] 3.430.2.7 Hospit a .3.209103 l .8 2022-06-03 2022-06-03 [facility], 1.2.840.1 [id number] 53349 77004 Methodi 09:31:07 23:59:00 Encounter Margaret 00381.1.[address] 3.430.2.7 Hospit a .3.780724 l .8 2022-06-03 2022-06-03 Office [facility] 1.2.840.1 [id number] Methodi 14:00:00 14:15:00 Visit Tracy BaileyAmari 58849.1.[address] 3.430.2.7 Hospit a .3.045599 l .8 2022-06-03 2022-06-03 Office [facility] 1.2.840.1 [id number] Methodi 14:00:00 14:15:00 Visit Tracy BaileyAmari 56373.1.[address] 3.430.2.7 Hospit a .3.637684 l .8 2022-06-03 2022-06-03 [facility], 1.2.840.1 [id number] 67188 79589 Methodi 08:44:01 09:30:00 Encounter Margaret [address]322.1.[address] 3.430.2.7 Hospit a .3.544139 l .8 2022-06-03 2022-06-03 [facility], 1.2.840.1 [id number] 99830 40383 Methodi 08:44:01 09:30:00 Encounter Margaret 82077.1.[address] 3.430.2.7 Hospit a .3.530234 l .8 2022-06-03 2022-06-03 [facility] [id number] [address] [place] [address] 00:00:00 00:00:[address] 2022-06-03 2022-06-03 Travel 1.2.840.1 1.2.077.271 0779 905135 Methodi 00:00:00 00:00:[address] 3.430.2.7 0.2.7.3.698 Ho spita .3.813745 084.8 l .8 2022-06-03 2022-06-03 Travel 1.2.840.1 1.2.147.970 7720 019246 Methodi 00:00:00 00:00:[address] 3.430.2.7 0.2.7.3.698 Ho spita .3.151817 084.8 l .8 2022-05-29 2022-05-29 [facility] 4 1.2.210.858 0821 [address] [place] 10:15:00 10:42:21 Visit Benjamin 350.1.13.58 He alth 9.2.7.2.686 252.8327745 1 2022-05-25 2022-05-25 Travel 1.2.840.1 1.2.449.561 8996 290639 Methodi 00:00:00 00:00:[address] 3.430.2.7 0.2.7.3.698 Ho spita .3.366455 084.8 l .8 2022-05-25 2022-05-25 Travel 1.2.840.1 1.2.758.820 2066 192419 Methodi 00:00:00 00:00:[address] 3.430.2.7 0.2.7.3.698 Ho spita .3.839796 084.8 l .8 2022-05-06 2022-05-06 [facility] 1.2.840.1 [id number] 484 3470581 Methodi 11:20:00 11:20:00 ne Britney 03781.1.[address] [place] 3.430.2.7 Hospit a .3.471706 l .8 2022-05-06 2022-05-06 [facility], 1.2.840.1 [id number] 363 6737647 Methodi 11:20:00 11:20:00 ne Britney 16379.1.[address] [place] 3.430.2.7 Hospit a .3.350476 l .8 2022-05-04 2022-05-04 Refill Bhimaraj, 1.2.840.1 [id number] 2100 463215 Methodi 00:00:00 00:00:[address] 3.430.2.7 Hospit a .3.960253 l .8 2022-05-04 2022-05-04 Refill imaraj, 1.2.840.1 [id number] 2099 748744 Methodi 00:00:00 00:00:[address] 3.430.2.7 Hospit a .3.654114 l .8 2022-04-23 2022-04-23 Orders Whaley, 1.2.840.1 [id number] 748013 5236 Methodi 00:00:00 00:00:00 Only Sapphire 02285.1.[address] 3.430.2.7 Hospit a .3.319524 l .8 2022-04-23 2022-04-23 Orders Judd, 1.2.840.1 698300700 829467 6283 Methodi 00:00:00 00:00:00 Only Sapphire 57405.1.[address] 3.430.2.7 Hospit a .3.267327 l .8 2022-04-22 2022-04-22 Outpatient Lapin_S [facility] 107228- [address] 00:00:00 00:00:00 [address] [facility] 2022-04-03 2022-04-03 Orders Karl, 1.2.840.1 [id number] 900 2136805 Methodi 00:00:00 00:00:00 Only Rebecca 27972.1.[address] 3.430.2.7 Hospit a .3.746499 l .8 2022-04-03 2022-04-03 Orders Karl, 1.2.840.1 884379157 981 3580345 Methodi 00:00:00 00:00:00 Only Rebecca 09807.1.[address] 3.430.2.7 Hospit a .3.062953 l .8 2022-03-29 2022-03-29 Refill Haider, 1.2.840.1 209497085 639885 4607 Methodi 00:00:00 00:00:[address] [place] 3.430.2.7 Hospit a .3.325785 l .8 2022-03-29 2022-03-29 Refill Sadhu, 1.2.840.1 246001080 690958 7536 Methodi 00:00:00 00:00:[address] [place] 3.430.2.7 Hospit a .3.202293 l .8 2022-03-26 2022-03-26 Refill Sadhu, 1.2.840.1 375065810 460272 6745 Methodi 00:00:00 00:00:[address] [place] 3.430.2.7 Hospit a .3.925581 l .8 2022-03-26 2022-03-26 Refill Sadhu, 1.2.840.1 529928042 064539 3186 Methodi 00:00:00 00:00:[address] [place] 3.430.2.7 Hospit a .3.086236 l .8 2022-03-20 2022-03-20 Travel 1.2.840.1 1.2.248.004 3977 613606 Methodi 00:00:00 00:00:[address] 3.430.2.7 0.2.7.3.698 Ho spita .3.741546 084.8 l .8 2022-03-20 2022-03-20 Travel 1.2.840.1 1.2.464.882 8725 016580 Methodi 00:00:00 00:00:[address] 3.430.2.7 0.2.7.3.698 Ho spita .3.351053 084.8 l .8 2022-03-17 2022-03-17 Clinical Migden, 1.2.840.1 239125103 06380 86162 Univers 10:30:00 12:41:26 Support Benjamin 58144.1.1 ity of 3.412.2.7 [place] .3.915946 MD Hurtado [facility] 2022-03-17 2022-03-17 Clinical Jose Luis, 1.2.840.1 [id number] 54194 00609 Univers 10:30:00 12:41:26 Support Benjamin 76076.1.1 ity of 3.412.2.7 [place] .3.598990 MD Hurtado [facility] 2022-03-17 2022-03-17 Travel 1.2.840.1 1.2.388.003 8970 802153 Univers 00:00:00 00:00:00 53475.1.1 350.1.13.41 ity of 3.412.2.7 2.2.7.3.698 [place] .3.160667 084.8 MD Hurtado [facility] 2022-03-17 2022-03-17 Orders Verna, 1.2.840.1 [id number] 034715 7158 Univers 00:00:00 00:00:00 Only Uday 82847.1.1 ity of 3.412.2.7 [place] .3.590309 MD Hurtado [facility] 2022-03-17 2022-03-17 Travel 1.2.840.1 1.2.025.400 8917 455380 Univers 00:00:00 00:00:00 96249.1.1 350.1.13.41 ity of 3.412.2.7 2.[place]7.3.698 [place] .3.596978 084.8 MD Hurtado [facility] 2022-03-17 2022-03-17 Orders Verna, 1.2.840.1 752148510 964965 0600 Univers 00:00:00 00:00:00 Only Uday 53789.1.1 ity of 3.412.2.7 [place] .3.038353 MD Hurtado [facility] 2022-03-11 2022-03-11 Documentat Jessie, 1.2.840.1 [id number] 664 6494396 Methodi 00:00:00 00:00:00 ion Tracy 39792.1.[address] 3.430.2.7 Hospit a .3.875987 l .8 2022-03-11 2022-03-11 Document Jessie, 1.2.840.1 [id number] 362 7082804 Methodi 00:00:00 00:00:00 ion Tracy 26647.1.[address] 3.430.2.7 Hospit a .3.017567 l .8 2022-02-26 2022-02-26 Orders Olya, 1.2.840.1 [id number] 673 2443477 Methodi 00:00:00 00:00:00 Only Lefty 23977.1.[address] 3.430.2.7 Hospit a .3.953603 l .8 2022-02-26 2022-02-26 Orders Olya, 1.2.840.1 [id number] 709 7552965 Methodi 00:00:00 00:00:00 Only Lefty 42318.1.[address] 3.430.2.7 Hospit a .3.572382 l .8 2022-02-25 2022-02-25 [facility] Leo 1.2.840.1 [id number] 74511 84744 Methodi 12:15:00 23:59:00 Encounter Tracy Gutierrez 98015.1.1 588 s t 3.430.2.7 Hospit a .3.267663 l .8 2022-02-25 2022-02-25 [facility] Leo 1.2.840.1 [id number] 87170 37735 Methodi 12:15:00 23:59:00 Encounter Tracy Gutierrez 91096.1.1 588 s t 3.430.2.7 Hospit a .3.237780 l .8 2022-02-25 2022-02-25 [facility] Tracy Bailey 1.2.840.1 7510862 33 [id number] Methodi 14:00:00 14:15:00 Visit Margaret Topete 85857.1.[address] 3.430.2.7 Hospit a .3.395707 l .8 2022-02-25 2022-02-25 [facility] Leo, 1.2.840.1 [id number] 27096 Methodi 09:12:37 12:14:00 Encounter Tracy Gutierrez 18825.1.1 001 s t 3.430.2.7 Hospit a .3.894258 l .8 2022-02-25 2022-02-25 [facility] Leo, 1.2.840.1 [id number] 21001 28739 Methodi 09:12:37 12:14:00 Encounter Tracy Gutierrez 34072.1.1 001 s t 3.430.2.7 Hospit a .3.688575 l .8 2022-02-25 2022-02-25 [facility] Leo, 1.2.840.1 [id number] 16309 Methodi 08:39:58 09:11:00 Encounter Tracy Gutierrez 81191.1.1 586 s t 3.430.2.7 Hospit a .3.447809 l .8 2022-02-25 2022-02-25 [facility] Leo, 1.2.840.1 [id number] 06171 Methodi 08:39:58 09:11:00 Encounter Tracy Gutierrez 30449.1.1 586 s t 3.430.2.7 Hospit a .3.539776 l .8 2022-02-25 2022-02-25 [facility] [id number] 948 [place] 00:00:00 00:00:00 TRACY Lomeli[address] [facility] [address] 2022-02-25 2022-02-25 [facility] [place], 1.2.840.1 [id number] 893689 8731 Methodi 00:00:00 00:00:[address] 3.430.2.7 Hospit a .3.949219 l .8 2022-02-25 2022-02-25 Travel 1.2.840.1 1.2.096.743 7399 676141 Methodi 00:00:00 00:00:[address] 3.430.2.7 0.2.7.3.698 marco .3.460719 084.8 l .8 2022-02-25 2022-02-25 Refill [place], 1.2.840.1 [id number] 862367 4070 Methodi 00:00:00 00:00:[address] 3.430.2.7 Hospit a .3.164322 l .8 2022-02-25 2022-02-25 Travel 1.2.840.1 1.2.423.960 6164 709169 Methodi 00:00:00 00:00:[address] 3.430.2.7 0.2.7.3.698 Ho spita .3.897788 084.8 l .8 2022-02-24 2022-02-24 Procedure Migden, 1.2.840.1 [id number] 1093 475339 Univers 11:30:00 14:37:09 visit Benjamin 34329.1.1 ity of 3.412.2.7 [place] .3.410162 MD Hurtado [facility] 2022-02-24 2022-02-24 Procedure Migden, 1.2.840.1 [id number] 1093 410472 Univers 11:30:00 14:37:09 visit Benjamin 63164.1.1 ity of 3.412.2.7 [place] .3.020478 MD H[facility]ado [facility] 2022-02-24 2022-02-24 Travel 1.2.840.1 1.2.830.843 5105 595644 Univers 00:00:00 00:00:00 17650.1.1 350.1.13.41 ity of 3.412.2.7 2.[place]7.3.698 [place] .3.571773 084.8 MD H[facility]ado [facility] 2022-02-24 2022-02-24 Travel 1.2.840.1 1.2.381.907 9424 300866 Univers 00:00:00 00:00:00 23509.1.1 350.1.13.41 ity of 3.412.2.7 2.[place]7.3.698 [place] .3.205865 084.8 .8 [facility] 2022-02-20 2022-02-20 Telephone [place] 1.2.840.1 [id number] Univers 00:00:00 00:00:00 conchis 30586.1.1 ity of [place] 3.412.2.7 [place] .3.699334 .8 [facility] 2022-02-20 2022-02-20 Telephone [place] 1.2.840.1 [id number] Univers 00:00:00 00:00:00 conchis 29582.1.1 ity of [place] 3.412.2.7 [place] .3.509944 MD Fitzpatrick8 [facility] 2022-02-17 2022-02-17 [facility], 1.2.840.1 [id number] 21 [id number] Methodi 15:00:00 15:23:17 ne Mohammad [address]5918.1.[address] [place] 3.430.2.7 Hospit a .3.882267 l .8 2022-02-17 2022-02-17 Telemedici Nakawa, 1.2.840.1 [id number] 21 [id number] Methodi 15:00:00 15:23:17 ne Mohammad 51806.1.[address] [place] 3.430.2.7 Hospit a .3.794324 l .8 2022-02-17 2022-02-17 Telephone Sri, 1.2.840.1 [id number] 1093 603835 Univers 00:00:00 00:00:00 Albin 02526.1.1 it y of 3.412.2.7 [place] .3.911390 MD Fitzpatrick8 [facility] 2022-02-17 2022-02-17 Telephone Sri, 1.2.840.1 [id number] 1093 548201 Univers 00:00:00 00:00:00 Albin 91505.1.1 it y of 3.412.2.7 [place] .3.284139 MD Hurtado [facility] 2022-02-17 2022-02-17 Travel 1.2.840.1 1.2.587.668 5178 376845 Methodi 00:00:00 00:00:[address] 3.430.2.7 0.2.7.3.698 Ho spita .3.462687 084.8 l .8 2022-02-17 2022-02-17 Travel 1.2.840.1 1.2.853.069 8240 696515 Methodi 00:00:00 00:00:[address] 3.430.2.7 0.2.7.3.698 Ho spita .3.260119 084.8 l .8 2022-02-16 2022-02-16 [facility] 386[facility]- [address] 01:27:00 01:27:00 44517 [facility] 2022-02-16 2022-02-16 Outpatient Lapin_S [facility] 459912- [address] 01:27:00 01:27:00 90126 [facility] 2022-02-16 2022-02-16 Outpatient Lapin_S [facility] 708142- [address] 01:27:00 01:27:00 03179 [facility] 2022-02-16 2022-02-16 Sammy Gaffney 1.2.840.1 [id number] 743014 9105 Univers 00:00:00 00:00:00 Only Nicole Elsie 00747.1.1 i ty of 3.412.2.7 [place] .3Amari800746 MD Hurtado [facility] 2022-02-16 2022-02-16 Sammy Gaffney 1.2.840.1 [id number] 147200 7677 Univers 00:00:00 00:00:00 Only Nicole Elise 87812.1.1 i ty of 3.412.2.7 [place] .3Amari013073 MD Hurtado [facility] 2022-02-162022-02-16 Travel 1.2.840.1 1.2.831.175 0749 425696 Methodi 00:00:00 00:00:[address] 3.430.2.7 0.2.7.3.698 Ho spita .3.551351 084.8 l .8 2022-02-16 2022-02-16 Travel 1.2.840.1 1.2.403.771 6888 319682 Methodi 00:00:00 00:00:[address] 3.430.2.7 0.2.7.3.698 Ho spita .3.644153 084.8 l .8 2022-02-12 2022-02-12 Refill [place], 1.2.840.1 [id number] 09674 Methodi 00:00:00 00:00:[address] [place] 3.430.2.7 Hospit a .3.020099 l .8 2022-02-12 2022-02-12 Refill Bhvitaliyraj, 1.2.840.1 [id number] 2099 428183 Methodi 00:00:00 00:00:[address] 3.430.2.7 Hospit a .3.566356 l .8 2022-02-12 2022-02-12 Refill [place], 1.2.840.1 [id number] 71018 Methodi 00:00:00 00:00:[address] [place] 3.430.2.7 Hospit a .3.620273 l .8 2022-02-12 2022-02-12 Refill [place], 1.2.840.1 [id number] 69262 Methodi 00:00:00 00:00:[address] [place] 3.430.2.7 Hospit a .3.045082 l .8 2022-02-12 2022-02-12 Refill Minal, 1.2.840.1 [id number] 2099 052857 Methodi 00:00:00 00:00:[address] 3.430.2.7 Hospit a .3.694795 l .8 2022-02-12 2022-02-12 Refill Pablo, 1.2.840.1 483010785 61462 36280 Methodi 00:00:00 00:00:[address] [place] 3.430.2.7 Hospit a .3.171479 l .8 2022-02-11 2022-02-11 Documentat Jeremías, 1.2.840.1 [id number] 2 [id number] Methodi 00:00:00 00:00:00 ion Lucero 63520.1.[address] 3.430.2.7 Hospit a .3.740983 l .8 2022-02-11 2022-02-11 Sammy Veronica 1.2.840.1 [id number] 2099 176503 Methodi 00:00:00 00:00:00 Only Lucero 37218.1.[address] 3.430.2.7 Hospit a .3.875247 l .8 2022-02-11 2022-02-11 Documentat Jeremías 1.2.840.1 [id number] 2 [id number] Methodi 00:00:00 00:00:00 ion Lucero 39907.1.[address] 3.430.2.7 Hospit a .3.098584 l .8 2022-02-11 2022-02-11 Sammy Veronica 1.2.840.1 [id number] 2099 474491 Methodi 00:00:00 00:00:00 Only Lucero 47178.1.[address] 3.430.2.7 Hospit a .3.316574 l .8 2022-02-10 2022-02-10 Outpatient Lapin_S [facility] 282491- [address] 04:26:00 04:26:00 [facility] 2022-02-10 2022-02-10 Refill Fida, Jackelyn 1.2.840.1 [id number] 21 [id number] Methodi 00:00:00 00:00:[address] 3.430.2.7 Hospit a .3.259474 l .8 2022-02-10 2022-02-10 Refill Sadhu, 1.2.840.1 509990144 246578 7344 Methodi 00:00:00 00:00:[address] [place] 3.430.2.7 Hospit a .3.051930 l .8 2022-02-10 2022-02-10 Refill Fida, Jackelyn 1.2.840.1 [id number] 21 [id number] Methodi 00:00:00 00:00:[address] 3.430.2.7 Hospit a .3.262885 l .8 2022-02-10 2022-02-10 Refill Sadhu, 1.2.840.1 [id number] 223427 1527 Methodi 00:00:00 00:00:[address] [place] 3.430.2.7 Hospit a .3.740682 l .8 2022-02-10 2022-02-10 [place] Sun [place] [facility] [id number] [place]d 00:00:00 00:00:00 Jaime 620-11ec-a Audrey [id number] 1abd40 2022-02-10 2022-02-10 [facility] [place] - [id number] H [facility] 00:00:00 00:00:00 Audrey Sun MD: Vee Urojamil gy [address], [place] [address] , Ph. 2022-02-09 2022-02-09 Procedure Migden, 1.2.840.1 [id number] 1092 179623 [facility] 19:30:00 19:30:00 visit Benjamin 87023.1.1 ity of 3.412.2.7 [place] .3.135478 MD Hurtado [facility] 2022-02-09 2022-02-09 Procedure Migden, 1.2.840.1 [id number] 1092 955738 [facility] 19:30:00 19:30:00 visit Benjamin 99624.1.1 ity of 3.412.2.7 [place] .3.697048 MD Fitzpatrick8 [facility] 2022-02-09 2022-02-09 Procedure Migden, 1.2.840.1 [id number] 1092 397751 [facility] 11:30:00 15:23:15 visit Benjamin 45882.1.1 ity of 3.412.2.7 [place] .3.033903 MD Fitzpatrick8 [facility] 2022-02-09 2022-02-09 Procedure Migden, 1.2.840.1 881651651 1092 981727 [facility] 11:30:00 15:23:15 visit Benjamin 74256.1.1 ity of 3.412.2.7 [place] .3.887633 MD Hurtado [facility] 2022-02-09 2022-02-09 Travel 1.2.840.1 1.2.152.540 9518 262283 Univers 00:00:00 00:00:00 80622.1.1 350.1.13.41 ity of 3.412.2.7 2.[place].3.698 [place] .3.[place] 084.Kimberlyn Hurt[facility] 2022-02-09 2022-02-09 Travel 1.2.840.1 1.2.734.974 3465 783638 Univers 00:00:00 00:00:00 58803.1.1 350.1.13.41 ity of 3.412.2.7 [place]3.698 [place] .3.376305 084.8 MD Hurtado [facility] 2022-02-05 2022-02-05 Outpatient Lapin_S [facility] 317156- [address] 02:58:00 02:58:00 [facility] 2022-02-05 2022-02-05 Refill Sadhu, 1.2.840.1 [id number] 7471 Methodi 00:00:00 00:00:[address] [place] 3.430.2.7 Hospit a .3.027644 l .8 2022-02-05 2022-02-05 Orders Topfer, 1.2.840.1 [id number] 891988 8441 Methodi 00:00:00 00:00:00 Only Tracy 86670.1.[address] 3.430.2.7 Hospit a .3.908983 l .8 2022-02-05 2022-02-05 Refill Sadhu, 1.2.840.1 149036371 370802 3606 Methodi 00:00:00 00:00:[address] [place] 3.430.2.7 Hospit a .3.677176 l .8 2022-02-05 2022-02-05 Orders Topfer, 1.2.840.1 [id number] 902120 5085 Methodi 00:00:00 00:00:00 Only Tracy 34737.1.[address] 3.430.2.7 Hospit a .3.281165 l .8 2022-02-04 2022-02-04 Travel 1.2.840.1 1.2.409.363 3601 140448 Methodi 00:00:00 00:00:[address] 3.430.2.7 0.2.7.3.698 Ho spita .3.666771 084.8 l .8 2022-02-04 2022-02-04 Travel 1.2.840.1 1.2.718.866 1455 760785 Methodi 00:00:00 00:00:[address] 3.430.2.7 0.2.7.3.698 Ho spita .3.933171 084.8 l .8 2022-02-03 2022-02-03 Outpatient Lapin_S [facility] 724884- [address] 03:07:00 03:07:00 [facility] 2022-02-03 2022-02-03 Orders Kwasi, 1.2.840.1 [id number] 328 [id number] Univers 00:00:00 00:00:00 Only Paty 08205.1.1 ity of [place] 3.412.2.7 [place] .3.662022 MD Fitzpatrick8 [facility] 2022-02-03 2022-02-03 Orders Kwasi, 1.2.840.1 [id number] 839 [id number] [facility] 00:00:00 00:00:00 Only Paty 91296.1.1 ity of [place] 3.412.2.7 [place] .3.568926 MD Hurtado [facility] 2022-02-02 2022-02-02 Outpatient Lapin_S [facility] [id number] 03:21:00 03:21:00 [facility] 2022-02-02 2022-02-02 Telephone Kwasi, 1.2.840.1 [id number] 1 [id number] Univers 00:00:00 00:00:00 Paty 69950.1.1 ity of [place] 3.412.2.7 [place] .3.077911 MD Hurtado [facility] 2022-02-02 2022-02-02 Telephone Kwasi, 1.2.840.1 [id number] 1 [id number] Univers 00:00:00 00:00:00 Paty 75887.1.1 ity of [place] 3.412.2.7 [place] .3.209842 MD Fitzpatrick8 [facility] 2022-01-29 2022-01-29 Telephone Olya, 1.2.840.1 [id number] 2 [id number] Bhumi 00:00:00 00:00:[address] 3.430.2.7 Hospit a .3.324125 po .8 2022-01-29 2022-01-29 Orders Olya, 1.2.840.1 664844083 982 [id number] Methodi 00:00:00 00:00:00 Only Romica 30564.1.[address] 3.430.2.7 Hospit a .3.081236 l .8 2022-01-29 2022-01-29 Telephone Olya, 1.2.840.1 [id number] 2 [id number] Methodi 00:00:00 00:00:[address] 3.430.2.7 Hospit a .3.697561 l .8 2022-01-29 2022-01-29 Orders Olya, 1.2.840.1 [id number] 467 [id number] Methodi 00:00:00 00:00:00 Only Romica 87745.1.[address] 3.430.2.7 Hospit a .3.286455 l .8 2022-01-28 2022-01-28 Orders Gillespie, 1.2.840.1 640775456 404670 9910 Univers 00:00:00 00:00:00 Only Uday 45664.1.1 ity of 3.412.2.7 [place] .3.824348 MD Fitzpatrick8 [facility] 2022-01-28 2022-01-28 Orders Verna, 1.2.840.1 921833220 177019 4761 Univers 00:00:00 00:00:00 Only Uday 11003.1.1 ity of 3.412.2.7 [place] .3.217172 MD Fitzpatrick8 [facility] 2022-01-26 2022-01-26 Jenna Gallo 1.2.840.1 [id number] 253 [id number] Methodi 00:00:00 00:00:[address] 3.430.2.7 Hospit a .3.736256 l .8 2022-01-26 2022-01-26 Refminerva Gallo, 1.2.840.1 949102274 431 4712519 Methodi 00:00:00 00:00:[address] 3.430.2.7 Hospit a .3.101463 l .8 2022-01-22 2022-01-22 Telephone [facility], 1.2.840.1 [id number] 2100 092562 Methodi 00:00:00 00:00:[address] 3.430.2.7 Hospit a .3.630942 l .8 2022-01-22 2022-01-22 Telephone [facility], 1.2.840.1 [id number] Methodi 00:00:00 00:00:[address] 3.430.2.7 Hospit a .3.815723 l .8 2022-01-21 2022-01-21 [facility], 1.2.840.1 [id number] Methodi 13:00:00 23:59:00 Encounter Tracy Mustafa50.1.1 702 s t 3.430.2.7 Hospit a .3.295474 l .8 2022-01-21 2022-01-21 [facility] Leo, 1.2.840.1 [id number] Methodi 13:00:00 23:59:00 Encounter Tracy Mckeon.1.1 702 s t 3.430.2.7 Hospit a .3.092665 l .8 2022-01-21 2022-01-21 [facility] Leo, 1.2.840.1 [id number] Methodi 09:00:00 12:59:00 Encounter Tracy Mckeon.1.1 461 s t 3.430.2.7 Hospit a .3.713022 l .8 2022-01-21 2022-01-21 [facility] Leo, 1.2.840.1 [id number] Methodi 09:00:00 12:59:00 Encounter Tracy Mckeon.1.1 461 s t 3.430.2.7 Hospit a .3.134365 l .8 2022-01-21 2022-01-21 [facility] Leo, 1.2.840.1 [id number] Methodi 07:53:09 08:59:00 Encounter Tracy Gutierrez 63883.1.1 857 s t 3.430.2.7 Hospit a .3.074295 l .8 2022-01-21 2022-01-21 [facility] Leo, 1.2.840.1 [id number] 57462 24653 Methodi 07:53:09 08:59:00 Encounter Tracy Gutierrez 92347.1.1 857 s t 3.430.2.7 Hospit a .3.179274 l .8 2022-01-21 2022-01-21 Telephone Sai, 1.2.840.1 [id number] Methodi 00:00:00 00:00:[address] 3.430.2.7 Hospit a .3.579569 l .8 2022-01-21 2022-01-21 Telephone Sai, 1.2.840.1 [id number] [id number] Methodi 00:00:00 00:00:[address] 3.430.2.7 Hospit a .3.025258 l .8 2022-01-20 2022-01-20 Travel 1.2.840.1 1.2.021.849 2967 529086 Methodi 00:00:00 00:00:[address] 3.430.2.7 0.2.7.3.698 Ho spita .3.700601 084.8 l .8 2022-01-20 2022-01-20 Travel 1.2.840.1 1.2.891.638 3719 513226 Methodi 00:00:00 00:00:[address] 3.430.2.7 0.2.7.3.698 Ho spita .3.388077 084.8 l .8 2021-12-17 2022-01-19 Office Leo, 1.2.840.1 [id number] 207376 7247 Methodi 14:30:00 00:19:06 Visit Tracy Gutierrez 08666.1.[address] 3.430.2.7 Hospit a .3.075583 l .8 2021-12-17 2022-01-19 [facility], 1.2.840.1 [id number] 410050 0747 Methodi 14:30:00 00:19:06 Visit Tracy Mustafa50.1.[address] 3.430.2.7 Hospit a .3.708906 l .8 2022-01-16 2022-01-16 Zwolle Jose Luis [place] [address] 1.2.840.114 13 2209670 [place] 00:00:00 00:00:00 Benjamin 350.1.13.58 He alth 9.2.7.2.686 442.0217027 1 2022-01-15 2022-01-15 [facility], 1.2.840.1 [id number] 243 3947636 Methodi 00:00:00 00:00:[address] 3.430.2.7 Hospit a .3.620535 l .8 2022-01-15 2022-01-15 [facility], 1.2.840.1 748691916 993 9608737 Methodi 00:00:00 00:00:[address] 3.430.2.7 Hospit a .3.790709 l .8 2022-01-12 2022-01-12 [facility], 1.2.840.1 [id number] 85134 Methodi 10:05:48 23:59:00 Encounter Tracy Mckeon.1.1 077 s t 3.430.2.7 Hospit a .3.434576 l .8 2022-01-12 2022-01-12 [facility] Leo, 1.2.840.1 [id number] 57674 Methodi 10:05:48 23:59:00 Encounter Tracy Mustafa50.1.1 077 s t 3.430.2.7 Hospit a .3.220489 l .8 2022-01-12 2022-01-12 [facility] Leo, 1.2.840.1 [id number] 72033 93999 Methodi 09:00:00 10:04:00 Encounter Tracy Gutierrez 60194.1.1 927 s t 3.430.2.7 Hospit a .3.849885 l .8 2022-01-12 2022-01-12 [facility], 1.2.840.1 [id number] 92594 Methodi 09:00:00 10:04:00 Encounter Tracy Gutierrez 73940.1.1 927 s t 3.430.2.7 Hospit a .3.089700 l .8 2022-01-12 2022-01-12 [facility], 1.2.840.1 [id number] Methodi 07:38:37 08:59:00 Encounter Tracy Mustafa50.1.1 633 s t 3.430.2.7 Hospit a .3.917974 l .8 2022-01-12 2022-01-12 [facility], 1.2.840.1 [id number] Methodi 07:38:37 08:59:00 Encounter Tracy Mustafa50.1.1 633 s t 3.430.2.7 Hospit a .3.366749 l .8 2022-01-12 2022-01-12 Orders [facility], 1.2.840.1 [id number] 563039 1632 Methodi 00:00:00 00:00:00 Only Tracy 28990.1.[address] 3.430.2.7 Hospit a .3.827161 l .8 2022-01-12 2022-01-12 Travel 1.2.840.1 1.2.729.941 4323 606357 Methodi 00:00:00 00:00:[address] 3.430.2.7 0.2.7.3.698 Ho spita .3.323542 084.8 l .8 2022-01-12 2022-01-12 Travel 1.2.840.1 1.2.524.281 3747 301900 Methodi 00:00:00 00:00:[address] 3.430.2.7 0.2.7.3.698 spita .3.096582 084.8 l .8 2022-01-12 2022-01-12 Orders Jessie, 1.2.840.1 [id number] 818310 7045 Methodi 00:00:00 00:00:00 Only Tracy 85033.1.[address] 3.430.2.7 Hospit a .3.546824 l .8 2022-01-02 2022-01-02 [facility] Jose Luis [facility] 4 1.2.913.462 3547 [address] [place] 09:30:00 10:27:45 Visit Benjamin 350.1.13.58 He kamaljit 9.2.7.2.686 928.2258645 1 2022-01-01 2022-01-01 Refill Minal, 1.2.840.1 [id number] 2099 413760 Methodi 00:00:00 00:00:[address] 3.430.2.7 Hospit a .3.689380 l .8 2022-01-01 2022-01-01 Telephone Greco, 1.2.840.1 [id number] 2 [id number] Methodi 00:00:00 00:00:[address] 3.430.2.7 Hospit a .3.951864 l .8 2022-01-01 2022-01-01 Refill Bhlucia, 1.2.840.1 [id number] Methodi 00:00:00 00:00:[address] 3.430.2.7 Hospit a .3.849798 l .8 2022-01-01 2022-01-01 Telephone Greco, 1.2.840.1 [id number] 2 [id number] Methodi 00:00:00 00:00:[address] 3.430.2.7 Hospit a .3.083351 l .8 2021-12-30 2021-12-30 Telephone [place], 1.2.840.1 [id number] 2100 015288 Methodi 00:00:00 00:00:[address] 3.430.2.7 Hospit a .3.429626 l .8 2021-12-30 2021-12-30 Telephone [place], 1.2.840.1 [id number] 2099 028540 Methodi 00:00:00 00:00:[address] 3.430.2.7 Hospit a .3.562453 l .8 2021-12-29 2021-12-29 Orders [place], 1.2.840.1 [id number] 170020 8001 Methodi 00:00:00 00:00:00 Only Vero 04150.1.[address] 3.430.2.7 Hospit a .3.599889 l .8 2021-12-29 2021-12-29 Orders [place], 1.2.840.1 [id number] 893475 6080 Methodi 00:00:00 00:00:00 Only Vero 79320.1.[address] 3.430.2.7 Hospit a .3.900312 l .8 2021-12-28 2021-12-28 Refill Minal, 1.2.840.1 159185138 2099347 Methodi 00:00:00 00:00:[address] 3.430.2.7 Hospit a .3.895710 l .8 2021-12-28 2021-12-28 Refill Minal, 1.2.840.1 6670304412099347 Methodi 00:00:00 00:00:[address] 3.430.2.7 Hospit a .3.694360 l .8 2021-12-25 2021-12-25 [facility] Boaz Ibarra 1.2.840.1 [id number] 2 [id number] Methodi 12:10:59 23:59:[address] 3.430.2.7 Hospit a .3.458637 l .8 2021-12-25 2021-12-25 [facility] Boaz Ibarra 1.2.840.1 355366339 2 [id number] Methodi 12:10:59 23:59:[address] 3.430.2.7 Hospit a .3.355679 l .8 2021-12-25 2021-12-25 [facility] Boaz Ibarra 1.2.840.1 090381635 2 [id number] Methodi 12:10:42 23:59:[address] 3.430.2.7 Hospit a .3.119956 l .8 2021-12-25 2021-12-25 [facility] Boaz Ibarra 1.2.840.1 [id number] 2 [id number] Methodi 12:10:42 23:59:[address] 3.430.2.7 Hospit a .3.061144 l .8 2021-12-25 2021-12-25 Outpatient [facility] [id number] [address] [place] [address] 00:00:00 00:00:[address] TRAC[address] 2021-12-25 2021-12-25 Travel 1.2.840.1 1.2.345.607 0400 874552 Methodi 00:00:00 00:00:[address] 3.430.2.7 0.2.7.3.698 Ho spita .3.335887 084.8 l .8 2021-12-25 2021-12-25 Travel 1.2.840.1 1.2.787.743 3911 454257 Methodi 00:00:00 00:00:[address] 3.430.2.7 0.2.7.3.698 Ho spita .3.772573 084.8 l .8 2021-12-19 2021-12-19 Telephone Olya, 1.2.840.1 [id number] 2 [id number] Methodi 00:00:00 00:00:[address] 3.430.2.7 Hospit a .3.633757 l .8 2021-12-19 2021-12-19 Orders Olya, 1.2.840.1 [id number] 490 2347660 Methodi 00:00:00 00:00:00 Only Romica 62184.1.[address] 3.430.2.7 Hospit a .3.127196 l .8 2021-12-19 2021-12-19 Orders Olya, 1.2.840.1 066929058 479 5208121 Methodi 00:00:00 00:00:00 Only Romica 22756.1.[address] 3.430.2.7 Hospit a .3.517997 l .8 2021-12-19 2021-12-19 Telephone Olya, 1.2.840.1 [id number] 2 237496759 Methodi 00:00:00 00:00:[address] 3.430.2.7 Hospit a .3.364570 l .8 2021-12-19 2021-12-19 Orders Olya, 1.2.840.1 399954657 382 8224390 Methodi 00:00:00 00:00:00 Only Romica 24503.1.[address] 3.430.2.7 Hospit a .3.456235 l .8 2021-12-19 2021-12-19 Orders Olya, 1.2.840.1 [id number] 987 8741913 Methodi 00:00:00 00:00:00 Only Romica 07362.1.[address] 3.430.2.7 Hospit a .3.525816 l .8 2021-12-18 2021-12-18 Travel 1.2.840.1 1.2.855.377 5003 755155 Methodi 00:00:00 00:00:[address] 3.430.2.7 0.2.7.3.698 Ho spita .3.161065 084.8 l .8 2021-12-18 2021-12-18 Orders [place], 1.2.840.1 [id number] 686395 0639 Methodi 00:00:00 00:00:00 Only Vero 69530.1.[address] 3.430.2.7 Hospit a .3.302389 l .8 2021-12-18 2021-12-18 Travel 1.2.840.1 1.2.874.683 6697 394448 Methodi 00:00:00 00:00:[address] 3.430.2.7 0.2.7.3.698 Ho spita .3.407454 084.8 l .8 2021-12-18 2021-12-18 Orders [place], 1.2.840.1 554005586 787695 4435 Methodi 00:00:00 00:00:00 Only Vero 27240.1.[address] 3.430.2.7 Hospit a .3.787306 l .8 2021-12-17 2021-12-17 Travel 1.2.840.1 1.2.615.582 7246 781492 Methodi 00:00:00 00:00:[address] 3.430.2.7 0.2.7.3.698 Ho spita .3.158201 084.8 l .8 2021-12-17 2021-12-17 Travel 1.2.840.1 1.2.994.189 6434 171595 Methodi 00:00:00 00:00:[address] 3.430.2.7 0.2.7.3.698 Ho spita .3.346996 084.8 l .8 2021-12-10 2021-12-10 TelemedicBoaz Gallo 1.2.840.1 072730079 7884273505 Methodi 16:00:00 16:30:[address] 3.430.2.7 Hospit a .3.731403 l .8 2021-12-10 2021-12-10 Telemedici Boaz Ibarra 1.2.840.1 [id number] 7616273784 Methodi 16:00:00 16:30:[address] 3.430.2.7 Hospit a .3.752228 l .8 2021-12-10 2021-12-10 [facility]at [facility], 1.2.840.1 [id number] 872 8512442 Methodi 00:00:00 00:00:00 ion Tracy 20100.1.[address] 3.430.2.7 Hospit a .3.323798 l .8 2021-12-10 2021-12-10 Documentat [facility], 1.2.840.1 675999891 377 5331426 Methodi 00:00:00 00:00:00 ion Tracy 02146.1.[address] 3.430.2.7 Hospit a .3.699390 l .8 2021-12-09 2021-12-09 Telephone Boaz Ibarra 1.2.840.1 [id number] Methodi 00:00:00 00:00:[address] 3.430.2.7 Hospit a .3.031663 l .8 2021-12-09 2021-12-09 Telephone Boaz Ibarra 1.2.840.1 909529030 [id number] Methodi 00:00:00 00:00:[address] 3.430.2.7 Hospit a .3.494181 l .8 2021-12-08 2021-12-08 Telephone [place], 1.2.840.1 [id number] 2100 760098 Methodi 00:00:00 00:00:[address] 3.430.2.7 Hospit a .3.627059 l .8 2021-12-08 2021-12-08 Refill Minal, 1.2.840.1 707850191 2099 584888 Methodi 00:00:00 00:00:[address] 3.430.2.7 Hospit a .3.355841 l .8 2021-12-08 2021-12-08 Telephone Aniceto, 1.2.840.1 782223518 2099 214626 Methodi 00:00:00 00:00:[address] 3.430.2.7 Hospit a .3.493266 l .8 2021-12-08 2021-12-08 Refill Minal, 1.2.840.1 2856708422099962 Methodi 00:00:00 00:00:[address] 3.430.2.7 Hospit a .3.477278 l .8 2021-11-19 2021-12-05 Office Yariel Bettencourt 1.2.840.1 104 202316 6014686993 Methodi 14:00:00 00:46:29 Visit Tracy Bailey 10089.1.[address] 3.430.2.7 Hospit a .3.322643 l .8 2021-11-19 2021-12-05 Office Yariel Bettencourt 1.2.840.1 104 730304 2577345618 Methodi 14:00:00 00:46:29 Visit Tracy Bailey 31943.1.[address] 3.430.2.7 Hospit a .3.380966 l .8 2021-12-05 2021-12-05 Telephone Olya 1.2.840.1 [id number] 2 [id number] Methodi 00:00:00 00:00:[address] 3.430.2.7 Hospit a .3.029901 l .8 2021-12-05 2021-12-05 Telephone Olya 1.2.840.1 [id number] 2 [id number] Methodi 00:00:00 00:00:[address] 3.430.2.7 Hospit a .3.931643 l .8 2021-12-02 2021-12-02 Telephone Olya 1.2.840.1 [id number] 2 [id number] Methodi 00:00:00 00:00:[address] 3.430.2.7 Hospit a .3.527737 l .8 2021-12-02 2021-12-02 Telephone Olya, 1.2.840.1 [id number] 2 [id number] Methodi 00:00:00 00:00:[address] 3.430.2.7 Hospit a .3.572145 l .8 2021-11-26 2021-11-26 [facility] 1.2.840.1 [id number] Methodi 10:04:00 23:59:00 Encounter Smooth 77140.1.[address] 3.430.2.7 Hospit a .3.724717 l .8 2021-11-26 2021-11-26 [facility] 1.2.840.1 [id number] Methodi 10:04:00 23:59:00 Encounter Smooth 95375.1.[address] 3.430.2.7 Hospit a .3.403918 l .8 2021-11-26 2021-11-26 [facility] 1.2.840.1 [id number] Methodi 08:00:00 10:03:00 Encounter Tracy Gutierrez 70834.1.1 161 [address] t 3.430.2.7 Hospit a .3.077439 l .8 2021-11-26 2021-11-26 [facility] 1.2.840.1 [id number] Methodi 08:00:00 10:03:00 Encounter Tracy Gutierrez 89733.1.1 161 s t 3.430.2.7 Hospit a .3.050804 l .8 2021-11-26 2021-11-26 [facility] 1.2.840.1 1.2.781.715 7121 264794 Methodi 00:00:00 00:00:[address] 3.430.2.7 0.2.7.3.698 Ho spita .3.441238 084.8 l .8 2021-11-26 2021-11-26 Travel 1.2.840.1 1.2.177.956 1410 965003 Methodi 00:00:00 00:00:[address] 3.430.2.7 0.2.7.3.698 Ho spita .3.737079 084.8 l .8 2021-11-21 2021-11-21 Telephone Olya, 1.2.840.1 [id number] 2 [id number] Methodi 00:00:00 00:00:[address] 3.430.2.7 Hospit a .3.295656 l .8 2021-11-21 2021-11-21 Travel 1.2.840.1 1.2.146.535 6230 225843 Methodi 00:00:00 00:00:[address] 3.430.2.7 0.2.7.3.698 Ho spita .3.694740 084.8 l .8 2021-11-21 2021-11-21 Telephone Diego 1.2.840.1 [id number] 2099 271876 Methodi 00:00:00 00:00:00 Addison, 09702.1.[address] [place] 3.430.2.7 Hospit a .3.531920 l .8 2021-11-21 2021-11-21 Telephone Olya, 1.2.840.1 [id number] 2 [id number] Methodi 00:00:00 00:00:[address] 3.430.2.7 Hospit a .3.640899 l .8 2021-11-21 2021-11-21 Travel 1.2.840.1 1.2.282.214 0426 136199 Methodi 00:00:00 00:00:[address] 3.430.2.7 0.2.7.3.698 Ho spita .3.041831 084.8 l .8 2021-11-21 2021-11-21 Telephone Delos 1.2.840.1 [id number] 2100 651298 Methodi 00:00:00 00:00:00 Addison, 96472.1.[address] [place] 3.430.2.7 Hospit a .3.706139 l .8 2021-11-20 2021-11-20 Telephone Rideau, 1.2.840.1 [id number] 2100 411823 Methodi 00:00:00 00:00:[address] 3.430.2.7 Hospit a .3.605283 l .8 2021-11-20 2021-11-20 Orders [place]au, 1.2.840.1 [id number] 459243 6761 Methodi 00:00:00 00:00:00 Only Vero 05841.1.[address] 3.430.2.7 Hospit a .3.490338 l .8 2021-11-20 2021-11-20 Telephone [place], 1.2.840.1 [id number] 2100 430719 Methodi 00:00:00 00:00:[address] 3.430.2.7 Hospit a .3.131663 l .8 2021-11-20 2021-11-20 Orders [place]au, 1.2.840.1 [id number] 942877 1512 Methodi 00:00:00 00:00:00 Only Vero 74700.1.[address] 3.430.2.7 Hospit a .3.649044 l .8 2021-11-19 2021-11-19 Travel 1.2.840.1 1.2.999.245 2422 309015 Methodi 00:00:00 00:00:[address] 3.430.2.7 0.2.7.3.698 Ho spita .3.297431 084.8 l .8 2021-11-19 2021-11-19 Orders Olya, 1.2.840.1 [id number] 667 [id number] Methodi 00:00:00 00:00:00 Only Lefty 34326.1.[address] 3.430.2.7 Hospit a .3.818340 l .8 2021-11-19 2021-11-19 Travel 1.2.840.1 1.2.239.728 8634 225566 Methodi 00:00:00 00:00:[address] 3.430.2.7 0.2.7.3.698 Ho spita .3.488555 084.8 l .8 2021-11-19 2021-11-19 Orders Olya, 1.2.840.1 [id number] 646 4202456 Methodi 00:00:00 00:00:00 Only Lefty 30727.1.[address] 3.430.2.7 Hospit a .3.661411 l .8 2021-11-17 2021-11-17 Documentat Topfer, 1.2.840.1 [id number] 163 [id number] Methodi 00:00:00 00:00:00 maria esther Stone 00686.1.[address] 3.430.2.7 Hospit a .3.578155 l .8 2021-11-17 2021-11-17 Documentat Topfer, 1.2.840.1 [id number] 689 2927048 Methodi 00:00:00 00:00:00 maria esther Stone 02834.1.[address] 3.430.2.7 Hospit a .3.373861 l .8 2021-11-16 2021-11-16 Refill Topfer, 1.2.840.1 601533514 369475 6201 Methodi 00:00:00 00:00:[address] 3.430.2.7 Hospit a .3.770942 l .8 2021-11-16 2021-11-16 Refill Topfer, 1.2.840.1 471781563 526784 7969 Methodi 00:00:00 00:00:[address] 3.430.2.7 Hospit a .3.825616 l .8 2021-11-12 2021-11-15 [facility] Soha Duran 1.2.840.1 [id number] Methodi 19:41:00 16:44:00 Encounter India Blank Natwendy 00416.1.[address] [facility] 3.430.2.7 [facility] Janet .3.574314 l .8 2021-11-12 2021-11-15 [facility] Soha Duran 1.2.840.1 [id number] Methodi 19:41:00 16:44:00 Encounter India Blank Natюлияlal 20597.1.[address] [facility] 3.430.2.7 [facility] Janet .3.033442 l .8 2021-11-12 2021-11-12 Travel 1.2.840.1 1.2.796.184 6759 803344 Methodi 00:00:00 00:00:[address] 3.430.2.7 0.2.7.3.698 Ho spita .3.801040 084.8 l .8 2021-11-12 2021-11-12 Travel 1.2.840.1 1.2.515.498 8555 519671 Methodi 00:00:00 00:00:[address] 3.430.2.7 0.2.7.3.698 Ho spita .3.466843 084.8 l .8 2021-11-08 2021-11-08 Refill [facility], 1.2.840.1 [id number] 2099 942826 Methodi 00:00:00 00:00:[address] 3.430.2.7 Hospit a .3.656513 l .8 2021-11-08 2021-11-08 Refill Bhimaraj, 1.2.840.1 [id number] 2099 102942 Methodi 00:00:00 00:00:[address] 3.430.2.7 Hospit a .3.826029 l .8 2021-10-30 2021-10-30 Documentat Nahum, 1.2.840.1 [id number] 026 6024856 Methodi 00:00:00 00:00:00 ion Rob 79911.1.[address] Nate 3.430.2.7 Hospit a .3.601656 l .8 2021-10-30 2021-10-30 Telephone Pops, 1.2.840.1 [id number] 2099393 Methodi 00:00:00 00:00:[address] 3.430.2.7 Hospit a .3.304283 l .8 2021-10-28 2021-10-28 Office Khalida Faulkner 1.2.840.1 [id number] Methodi 09:15:00 09:30:00 Visit Geraldine Braun 29481.1.[address] 3.430.2.7 Hospit a .3.566002 l .8 2021-10-28 2021-10-28 Travel 1.2.840.1 1.2.073.072 1170 710311 Methodi 00:00:00 00:00:[address] 3.430.2.7 0.2.7.3.698 Ho spita .3.534548 084.8 l .8 2021-10-27 2021-10-27 Refill Haider, 1.2.840.1 [id number] 651684 4253 Methodi 00:00:00 00:00:[address] [place] 3.430.2.7 Hospit a .3.069951 l .8 2021-10-27 2021-10-27 Refill Bhimaraj, 1.2.840.1 [id number] 2099 960777 Methodi 00:00:00 00:00:[address] 3.430.2.7 Hospit a .3.042237 l .8 2021-10-24 2021-10-24 [facility], 1.2.840.1 [id number] 90845 99823 Methodi 09:51:52 23:59:00 Encounter Ashrith 30670.1.[address] 3.430.2.7 Hospit a .3.804466 l .8 2021-10-24 2021-10-24 [facility], 1.2.840.1 [id number] 59188 Methodi 08:31:47 09:50:00 Encounter Ashrith 76465.1.[address] 3.430.2.7 Hospit a .3.525743 l .8 2021-10-24 2021-10-24 [facility] [id number] [address] 00:00:00 00:00:00 YOJANAMED [address] 2021-10-24 2021-10-24 Travel 1.2.840.1 1.2.971.230 [id number] Methodi 00:00:00 00:00:[address] 3.430.2.7 0.2.7.3.698 Ho spita .3.816803 084.8 l .8 2021-10-23 2021-10-23 [facility], 1.2.840.1 [id number] Methodi 00:00:00 00:00:[address] 3.430.2.7 Hospit a .3.168311 l .8 2021-10-22 2021-10-22 Travel 1.2.840.1 1.2.445.389 5915 127060 Methodi 00:00:00 00:00:[address] 3.430.2.7 0.2.7.3.698 Ho spita .3.196990 084.8 l .8 2021-10-22 2021-10-22 Refill Sadcanelo, 1.2.840.1 [id number] 3383 Methodi 00:00:00 00:00:[address] [place] 3.430.2.7 Hospit a .3.216072 l .8 2021-10-16 2021-10-16 Refill Sabino, 1.2.840.1 [id number] Methodi 00:00:00 00:00:[address] 3.430.2.7 Hospit a .3.761535 l .8 2021-10-13 2021-10-13 Sammy Roman, 1.2.840.1 [id number] 4358 Methodi 00:00:00 00:00:00 Only Tracy 43344.1.[address] 3.430.2.7 Hospit a .3.303707 l .8 2021-10-09 2021-10-09 Travel 1.2.840.1 1.2.673.851 0276 [id number] Methodi 00:00:00 00:00:[address] 3.430.2.7 0.2.7.3.698 Ho spita .3.930664 084.8 l .8 2021-10-08 2021-10-08 Documentat Jessie, 1.2.840.1 [id number] Methodi 00:00:00 00:00:00 ion Tracy 53648.1.[address] 3.430.2.7 Hospit a .3.966829 l .8 2021-10-05 2021-10-05 Refill Pablo, 1.2.840.1 [id number] 01072 Methodi 00:00:00 00:00:[address] [place] 3.430.2.7 Hospit a .3.701731 l .8 2021-09-05 2021-09-12 Inpatient [facility] 06 [id number] [place] 00:00:00 00:00:00 MAYURI 864 Method i 2021-08-25 2021-08-25 Outpatient KAUSHIK [facility] [id number] [place] 00:00:00 00:00:00 ASHRITH 959 Method i 2021-08-25 2021-08-25 Outpatient MINAL [facility] [id number] [place] 00:00:00 00:00:00 YASH 198 Method i 2021-07-04 2021-07-04 Office S[place]ocorro, [place] [facility] [place] 1.2.690.800 3646 [address] [place] 09:30:00 10:47:19 Visit Benjamin 350.1.13.58 He alth 9.2.7.2.686 [id number] 1 2021-06-23 2021-06-23 Outpatient Zev [facility] [id number] 429 [facility] 10:40:00 10:40:00 RIGOBERTO garner [facility] 2021-06-23 2021-06-23 Imm/Inj Nurse, Adc Pob Immunization [facility] 1.2.840.114 [id number] [facility] [place] 10:23:00 10:23:14 Visit Rigoberto Boogie 350.1.13 .10 pascual [facility] 4.2.7.2.686 Fermín Short [id number] Vt dical [address] 2021-05-13 2021-05-13 Outpatient MAGNUS RUFF [facility] [id number] [place] 00:00:00 00:00:00 868 Method i 2021-04-03 2021-04-03 Outpatient PABLO [facility] [id number] 0138 [place] 00:00:00 00:00:00 MOHAMMAD 798 [address] 2021-03-27 2021-03-27 Outpatient PABLO [facility] [id number] [place] 00:00:00 00:00:00 MOHAMMAD [address] 2021-03-07 2021-03-07 Office ALDO Amaya [facility] [place] 1.2.973.042 2917 [address]7625 [place] 09:32:28 10:24:45 Visit Benjamin 350.1.13.58 He alth 9.2.7.2.686 [id number] 1 2021-03-07 2021-03-07 Office ALDO Amaya [facility] 1.2.603.704 2921 03075 09:32:28 10:24:45 Visit Benjamin 350.1.13.58 9.2.7.2.686 [id number] 1 2021-03-04 2021-03-04 Outpatient KAUSHIK, [facility] [id number] [place] 00:00:00 00:00:[address] 2021-02-28 2021-02-28 Outpatient YOUSEFZAI, [facility] [id number] [id number] [place] 00:00:00 00:00:00 RAYAN [address] 2021-02-20 2021-02-20 Outpatient ROCK, [facility] [id number] [place] 00:00:00 00:00:00 MAHWASH [address] 2021-02-20 2021-02-20 Outpatient NAKAWAH, [facility] [id number] [place] 00:00:00 00:00:00 BOB 779 [address] 2021-02-20 2021-02-20 Outpatient ROCK, [facility] [id number] 642 [place] 00:00:00 00:00:00 TREVON [address] 2021-02-20 2021-02-20 Outpatient ROCK, [facility] [id number] 643 [place] 00:00:00 00:00:00 MAHWASH [address] 2021-02-20 2021-02-20 Outpatient BHIMARAJ, [facility] [id number] [place] 00:00:00 00:00:00 YASH [address] 2021-02-20 2021-02-20 Outpatient ROCK, [facility] [id number] [place] 00:00:00 00:00:00 MAHWAAPRIL [address] 2021-02-20 2021-02-20 Outpatient ROCK, [facility] [id number] 306 [place] 00:00:00 00:00:00 MAHWASH [address] 2021-02-19 2021-02-19 Outpatient NAKAWAH, [facility] [id number] [place] 00:00:00 00:00:00 MOHAMMAD [address] 2020-10-31 2020-10-31 Outpatient [facility] [id number] 545 [place] 00:00:00 00:00:[address] 2020-10-03 2020-10-03 Outpatient PABLO, [facility] [id number] [place] 00:00:00 00:00:00 MOHAMMAD [address] 2020-10-03 2020-10-03 Outpatient TWIN, [facility] [id number] [place] 00:00:00 00:00:00 RAKAN [address] 2020-09-06 2020-09-06 Outpatient TAMANNA, [facility] [id number] 719 [place] 00:00:00 00:00:00 FAMILIA [address] 2020-08-07 2020-08-07 Orders Doctor TITI 1.2.840.114 [id number] 00:00:00 00:00:00 Only Unassigned, ZEESHAN 350.1.13.10 [place] [facility] 4.2.7.2.686 [id number] [facility] 2020-07-18 2020-07-18 Outpatient NOEMI, [facility] [id number] [place] 00:00:00 00:00:00 MOHAMMAD [address] 2020-07-18 2020-07-18 Outpatient [facility] [id number] [place] 00:00:00 00:00:[address] 2020-07-18 2020-07-18 [facility] [id number] [place] 00:00:00 00:00:00 MOHAMMAD [address] 2020-07-09 2020-07-09 Outpatient MINAL, [facility] [id number] [place] 00:00:00 00:00:00 YASH [address] 2020-07-09 2020-07-09 [facility] [id number] [id number] [place] 00:00:00 00:00:00 [address]ASH [address] 2020-05-30 2020-05-30 [facility] [id number] 1137 [place] 00:00:00 00:00:00 MOHAMMAD [address] 2020-05-13 2020-05-13 Outpatient BHIMARAJ, [facility] [id number] 02337 [place] 00:00:00 00:00:00 YASH [address] 2020-05-07 2020-05-07 Outpatient SADHU, [facility] [id number] 819 [place] 00:00:00 00:00:00 BRITNEY [address] 2020-02-28 2020-02-28 Outpatient GEOVANNI, [facility] [id number] [place] 00:00:00 00:00:00 YAZ [address] 2020-02-26 2020-02-26 Outpatient NAKAWAH, [facility] [id number] 0967 [place] 00:00:00 00:00:00 MOHAMMAD [address] 2020-02-21 2020-02-21 Outpatient GEOVANNI, [facility] [id number] [place] 00:00:00 00:00:00 YAZ [address] 2020-02-08 2020-02-08 Outpatient GEOVANNI, [facility] [id number] [place] 00:00:00 00:00:00 YAZ [address] 2019-12-06 2019-12-06 Outpatient AHMAD, [facility] [id number] 969 [place] 00:00:00 00:00:00 PORTILLO [address] 2019-11-07 2019-11-07 Outpatient KAUSHIK, [facility] [id number] 900 [place] 00:00:00 00:00:00 ASHRITH [address] 2019-11-07 2019-11-07 Outpatient KAUSHIK, [facility] [id number] 827 [place] 00:00:00 00:00:[address]RITH [address] 2019-11-02 2019-11-02 Outpatient KAUSHIK, [facility] [id number] [place] 00:00:00 00:00:00 ASHRITH [address] 2019-11-02 2019-11-02 Outpatient KAUSHIK, [facility] [id number] 828 [place] 00:00:00 00:00:00 ASHRITH [address] 2019-11-02 2019-11-02 Outpatient KAUSHIK, [facility] [id number] [place] 00:00:00 00:00:00 ASHRITH [address] 2019-11-02 2019-11-02 Outpatient KAUSHIK [facility] [id number] [place] 00:00:00 00:00:00 ASHRIARY [address] 2019-10-24 2019-10-24 [facility] Radiology [facility] 1.2.840.114 [id number] 11:09:00 23:59:00 Encounter [place] 350.1.13.10 [place] 4.2.7.2.686 [place] [id number] 807 2019-10-24 2019-10-24 Orders Doctor TITI 1.2.840.114 [id number] 00:00:00 00:00:00 Only Unassigned, ZEESHAN 350.1.13.10 [place] [facility] 4.2.7.2.686 [id number] 009 2018-04-08 2018-04-19 Inpatient [facility] [id number] [place] 04:09:00 00:45:[address] 2018-04-08 2018-04-19 Inpatient [facility] [id number] [place] 04:09:00 00:45:[address] 2018-04-07 2018-04-18 Outpatient Wally [facility] [id number] 23:09:00 19:45:00 Viri Gina Leti 2018-04-07 2018-04-18 Outpatient Wally [facility] [id number] 993 23:09:00 19:45:00 Viri Gina Leti 2016-08-06 2016-08-11 Outpatient YOSSI AMAYA MDA MDA [id number] 08:47:07 15:20:31 BENJAMIN huggins Results Test Description Test Time Test Comments Results Result Comments Source RAD ONC COURSE SUMMARY 2022-11-02 21:58:37 Test Item Value Reference Range Interpretation Comme nts Course ID (test code = 5706) C1 Course Start Date (test code = 5707) 2022-10-20 @10:26 Treatment Elapsed Days (test code = 5709) 11 Course Intent (test code = 5686) Unknown Treatment Dates (test code = 5685) Course End Date: 2022-11-02 @15:57First Treatment Date: 2022-10-22 @11:55Last Treatment Date: 2022-11-02 @11:39 Reference Point ID (test code = 5710) Liver Dosage Given to Date in Gy (test code = 40 5711) Plan ID (test code = 5713) Liver Plan Name (test code = 5714) Liver Fractions Treated to Date (test code = 5 of 5 5715) Prescribed Dose Per Fraction in Gy (test 8 code = 5716) Prescription Dose in cGy (test code = 4000 5717) [facility] DAILY [id number] 17:47:44 Test Item Value Reference Range Interpretation Comments Course ID (test code = C1 5706) Course Start Date (test 2022-10-20 @10:26 code = 5707) Treatment Elapsed Days 11 (test code = 5709) Course Intent (test code Unknown = 5686) Treatment Dates (test First Treatment Date: code = 5685) 2022-10-22 @11:55Last Treatment Date: 2022-11-02 @11:39 Reference Point ID (test Liver code = 5710) Dosage Given to Date in 40 Gy (test code = 5711) Session Dosage Given in 8 Gy (test code = 5712) Plan ID (test code = Liver 5713) Plan Name (test code = Liver 5714) Fractions Treated to 5 of 5 Date (test code = 5715) Prescribed Dose Per 8 Fraction in Gy (test code = 5716) Prescription Dose in cGy 4000 (test code = 5717) [facility] DAILY [id number] 17:54:31 Test Item Value Reference Range Interpretation Comments Course ID (test code = C1 5706) Course Start Date (test 2022-10-20 @10:26 code = 5707) Treatment Elapsed Days 8 (test code = 5709) Course Intent (test code Unknown = 5686) Treatment Dates (test First Treatment Date: code = 5685) 2022-10-22 @11:55Last Treatment Date: 2022-10-30 @11:47 Reference Point ID (test Liver code = 5710) Dosage Given to Date in 32 Gy (test code = 5711) Session Dosage Given in 8 Gy (test code = 5712) Plan ID (test code = Liver 5713) Plan Name (test code = Liver 5714) Fractions Treated to 4 of 5 Date (test code = 5715) Prescribed Dose Per 8 Fraction in Gy (test code = 5716) Prescription Dose in cGy 4000 (test code = 5717) [facility] DAILY [id number] 17:47:03 Test Item Value Reference Range Interpretation Comments Course ID (test code = C1 5706) Course Start Date (test 2022-10-20 @10:26 code = 5707) Treatment Elapsed Days 6 (test code = 5709) Course Intent (test code Unknown = 5686) Treatment Dates (test First Treatment Date: code = 5685) 2022-10-22 @11:55Last Treatment Date: 2022-10-28 @11:39 Reference Point ID (test Liver code = 5710) Dosage Given to Date in 24 Gy (test code = 5711) Session Dosage Given in 8 Gy (test code = 5712) Plan ID (test code = Liver 5713) Plan Name (test code = Liver 5714) Fractions Treated to 3 of 5 Date (test code = 5715) Prescribed Dose Per 8 Fraction in Gy (test code = 5716) Prescription Dose in cGy 4000 (test code = 5717) [facility] DAILY [id number] 17:52:02 Test Item Value Reference Range Interpretation Comments Course ID (test code = C1 5706) Course Start Date (test 2022-10-20 @10:26 code = 5707) Treatment Elapsed Days 4 (test code = 5709) Course Intent (test code Unknown = 5686) Treatment Dates (test First Treatment Date: code = 5685) 2022-10-22 @11:55Last Treatment Date: 2022-10-26 @11:44 Reference Point ID (test Liver code = 5710) Dosage Given to Date in 16 Gy (test code = 5711) Session Dosage Given in 8 Gy (test code = 5712) Plan ID (test code = Liver 5713) Plan Name (test code = Liver 5714) Fractions Treated to 2 of 5 Date (test code = 5715) Prescribed Dose Per 8 Fraction in Gy (test code = 5716) Prescription Dose in cGy 4000 (test code = 5717) [facility] DAILY [id number] 18:04:45 Test Item Value Reference Range Interpretation Comments Course ID (test code = C1 5706) Course Start Date (test 2022-10-20 @10:26 code = 5707) Treatment Elapsed Days 0 (test code = 5709) Course Intent (test code Unknown = 5686) Treatment Dates (test First Treatment Date: code = 5685) 2022-10-22 @11:55Last Treatment Date: 2022-10-22 @11:57 Reference Point ID (test Liver code = 5710) Dosage Given to Date in 8 Gy (test code = 5711) Session Dosage Given in 8 Gy (test code = 5712) Plan ID (test code = Liver 5713) Plan Name (test code = Liver 5714) Fractions Treated to 1 of 5 Date (test code = 5715) Prescribed Dose Per 8 Fraction in Gy (test code = 5716) Prescription Dose in cGy 4000 (test code = 5717) [facility] specific [id number] 11:44:45 Test Item Value Reference Range Interpretation Comments DSA serum ID (test code [id number] = 5858) DSA serum collection D&T 09/23/2022 04:42 AM (test code = 5859) DSA class I antibody Cw5 assignment (test code = 5862) DSA antibody I comments CANNOT EXCLUDE Cw5 (test code = 5863) ANTIBODY DSA DSA cPRA class I (test 16 code = 5860) DSA class II antibody Negative assignment (test code = 5864) DSA antibody II comments NONE (test code = 5865) DSA cPRA class II (test 0 code = 5861) Case number (test code = [id number]) Donor specific antibody See link below for (test code = 1080) PDF Lab Report [facility] [id number] 16:51:00 Test Item Value Reference Range Interpretation Comments POC glucose (test code = 146 mg/dL 65-99 H Ope rator Name: 35469-0) Chilo newby ID: [id number] able: [facility] Notified recruiter specialist Interpretation (test Abnormal code = 20243-7) [facility] O2 [id number] 21:25:37 Test Item Value Reference Range Interpretation Comments SUPPLIER NAME (test [facility] code = 6415) SUPPLIER PHONE (test code = 6416) ORDER STATUS (test code Delivery Successful = 6417) DELIVERY NOTE (test code = 6419) REQUESTED DELIVEY DATE 09/24/2022 (test code = 6420) ITEM DESCRIPTION (test O2 Humidifier Bottle, Qty: 1 code = 6423) Standard Liter Flow EXPECTED DELIVERY DATE 09/24/2022 (test code = 6421) ACTUAL DELIVERY DATE 09/24/2022 (test code = 6422) [facility] [id number] 00:25:08 Test Item Value Reference Range Interpretation Comments Ventricular rate (test 89 code = 253) Atrial rate (test code = 89 255) MT interval (test code = 140 266) QRSD interval (test code 78 = 260) QT interval (test code = 374 264) QTC interval (test code 455 = 265) P axis 1 (test code = 43 267) QRS axis 1 (test code = 60 268) T wave axis (test code = 87 270) EKG impression (test Normal sinus code = 273) rhythm-Possible Inferior infarct , age undetermined-Cannot rule out Anterior infarct (cited on or before 21-SEP-2022)-Abnormal ECG- [facility] Center[facility]it[facility] D 25 hydroxy [id number] 23:09:00 Test Item Value Reference Range Interpretation Comments Vitamin D, 47 ng/mL 30-100 Vitamin D Statu s 25-hydroxy (test 25-OH Vitam in D: code = 1988-) Deficiency: < 20 ng/mLInsufficie ncy : 20 - 29 ng/mLOptimal: > or = 30 ng/mL For 25-OH Vitamin D testing on patients on D2-supplementat ion and patients fo r whom quantitati on of D2 and D3 fractions is required, the QuestAssureD(TM )25 -OH VIT D, (D2,D3), LC/MS/ MS is recommended: order code 9288 8 (patients >2yrs).See Note 1 Note 1 For additional information, please refer to http://educatio n.Q uestDiagnostics .co m/faq/QYI745 (T his link is being provided for informational/e deric ational purpose s only.) HOWARD (test code = FASTING:YES FASTING: HOWARD) YES RAC (test code = Performing RAC) Organization Information: Site ID: RGA Name: [facility] Address: [address] [place] [address] Director: Rakan Aguirre [facility] Center[facility]album[facility] / creatinine urine [id number] 23:09:00 Test Item Value Reference Interpretation Comments Range Creatinine, urine 156 mg/dL 20-320 (mg/dL) (test code = 2161-8) Microalbumin, urine 120.6 mg/dL See Note: Referenc e Range: (test code = Reference Range Not 40159-7) established Res ults verified by rep eat [...] RAC) Organization Information: Site ID: RGA Name: [facility] Address: [address] [place], [place] [address] Director: Rakan Aguirre Lab Interpretation Abnormal (test code = 08956-3) [facility] Center[facility] [id number] 23:09:00 Test Item Value Reference Range Interpretation Comments Cholesterol, total 151 mg/dL See_Comment [Automat ed (test code = 2093-3) message ] The system which generated this result transmitted reference range : <=200. The reference range was not used to interpret this result as normal/abnormal . HDL cholesterol 58 mg/dL See_Comment [Automated (test code = 2085-9) message ] The system which generated this result transmitted reference range : > OR = 40. The reference range was not used to interpret this result as normal/abnormal . Triglycerides (test 101 mg/dL See_Comment [Automa karla code = 2571-8) message] The system which generated this result transmitted reference range : <=150. The reference range was not used to interpret this result as normal/abnormal . LDL cholesterol mg/dL (calc) Reference ra nge: calculated (test <100 Desira ble code = 03821-4) range <100 m g/dL for primary prevention; <70 mg/dL for patients with C HD or diabetic patients with > or = 2 CHD risk factors. LDL-C is now calculated using the Pan-Verenice calculation, which is a validated novel method providin g better accuracy than the Friedewald equation in the estimation of LDL-C. Pan S S et al. MARKO. 2013;310(19): 1357-0618 (http://educati on .Intelligent Fingerprinting .com/faq/GQN192 ) Cholesterol/HDL See_Comment [Automated ratio (test code = message] The 9830-1) system which generated this result transmitted reference range : <5.0 (calc). Th e reference range was not used to interpret this result as normal/abnormal . Non-HDL cholesterol See_Comment For christi ents with (test code = diabetes plus 1 72422-3) major ASCVD ris k factor, treatin g to a non-HDL-C goal of <100 mg/dL (LDL-C of <70 mg/dL) is considered a therapeutic option. [Automated message] The system which generated this result transmitted reference range : <130 mg/dL (calc). The reference range was not used to interpret this result as normal/abnormal . HOWARD (test code = FASTING:YES HOWARD) FASTING: YES RAC (test code = Performing RAC) Organization Information: Site ID: RGA Name: [facility] Lab Address: [address] [place] [phone] Director: Rakan Aguirre [facility] CenterHemoglobin [id number] 23:09:00 Test Item Value Reference Interpretation Comments Range Hemoglobin A1C See_Comment H For someone w ithout (test code = known diabetes, a 4548-4) hemoglobin A1c value between 5.7% an d 6.4% is consist ent withprediabetes and should be confi rmed with a follow-u p test. For someo ne with known diab etes, a value <7%indicates that their diabetes is well controlled . G1zefelltl shou ld be individualized based on duration [...] = Performing RAC) Organization Information: Site ID: A Name: [facility] Address: [address] [place] [address] Director: Rakan Aguirre Lab Interpretation Abnormal (test code = 45946-7) [facility] CenterT4, [id number] 23:09:00 Test Item Value Reference Range Interpretation Comments T4, free (test code 1.0 ng/dL 0.8-1.8 = 3024-7) HOWARD (test code = FASTING:YES FASTING: YES HOWARD) RAC (test code = Performing Organization RAC) Information: Site ID: [facility] Name: [facility] Address: [address] [place], [place] [id number] Director: Rakan [facility]Ohio[facility] CenterThyroid stimulating [id number] 23:09:00 Test Item Value Reference Range Interpretation [...] code = RAC) Organization Information: Site ID: [facility] Name: [facility] Address: [address] [place] [address] Director: Rakan [facility]ellMay[facility] HospitalLipid [id number] 23:09:00 Test Item Value Reference Range Interpretation Comments Cholesterol, total 151 mg/dL <=200 (test code = 2093-3) HDL cholesterol 58 mg/dL See_Comment [Automated (test code = 2084-) message ] The system which generated this result transmitted reference range : > OR = 40. The reference range was not used to interpret this result as normal/abnormal . Triglycerides (test 101 mg/dL <=150 code = 2571-8) LDL cholesterol 75 mg/dL (calc) Reference ra nge: calculated (test <100 Desira ble code = 67720-0) range <100 m g/dL for primary prevention; <70 mg/dL for patients with C HD or diabetic patients with > or = 2 CHD risk factors. LDL-C is now calculated using the Paula calculation, which is a validated novel method providin g better accuracy than the Friedewald equation in the estimation of LDL-C. Pan S S et al. MARKO. 2013;310(19): 6861-6608 (http://educati on .Intelligent Fingerprinting .com/faq/VSV294 ) Cholesterol/HDL 2.6 See_Comment [Automated ratio (test code = message] The 9830-1) system which generated this result transmitted reference range : <5.0 (calc). Th e reference range was not used to interpret this result as normal/abnormal . Non-HDL cholesterol 93 See_Comment For christi ents with (test code = diabetes plus 1 80575-9) major ASCVD ris k factor, treatin g to a non-HDL-C goal of <100 mg/dL (LDL-C of <70 mg/dL) is considered a therapeutic option. [Automated message] The system which generated this result transmitted reference range : <130 mg/dL (calc). The reference range was not used to interpret this result as normal/abnormal . HOWARD (test code = FASTING:YES HOWARD) FASTING: YES RAC (test code = Performing RAC) Organization Information: Site ID: RGA Name: [facility] Lab Address: [address] [place] [phone] Director: Rakan Aguirre [facility] CenterHemoglobin [id number] 23:09:00 Test Item Value Reference Interpretation Comments Range Hemoglobin A1C 6.0 See_Comment H For someone w ithout (test code = known diabetes, a 4548-4) hemoglobin A1c value between 5.7% an d 6.4% is consist ent withprediabetes and should be confi rmed with a follow-u p test. For someo ne with known diab etes, a value <7%indicates that their diabetes is well controlled . P4vachytbn shou ld be individualized based on duration [...] = Performing RAC) Organization Information: Site ID: [facility] Name: [facility] Address: [address] [place] [address] Director: Rakan Aguirre Lab Interpretation Abnormal (test code = 77054-3) [facility] CenterT4, [id number] 23:09:00 Test Item Value Reference Range Interpretation Comments T4, free (test code 1.0 ng/dL 0.8-1.8 = 3024-7) HOWARD (test code = FASTING:YES FASTING: YES HOWARD) RAC (test code = Performing Organization RAC) Information: Site ID: [facility] Name: [facility] Address: [address] [place] [address] Director: Rakan Aguirre [facility] CenterThyroid stimulating vnsjijg2815-78-38 23:09:00 Test Item Value Reference Range Interpretation Comments TSH (test 3.80 See_Comment [Automated mes cresencio] code = The system ic h 3016-3) generated this result transmit karla reference range : 0.40 - 4.50 mIU /L. The reference r renu was not used to interpret this result as normal/abnormal . HOWARD (test FASTING:YES FASTING: code = HOWARD) YES RAC (test Performing code = RAC) Organization Information: Site ID: [facility] Name: [facility] Address: [address] [place] [address] Director: [facility] Hospital[facility]it[facility] 25 hydroxy opnyy0481-64-06 23:09:00 Test Item Value Reference Range Interpretation Comments Vitamin D, 47 ng/mL 30-100 Vitamin D Statu s 25-hydroxy (test 25-OH Vitam in D: code = 1989-3) Deficiency: < 20 ng/mLInsufficie ncy : 20 - 29 ng/mLOptimal: > or = 30 ng/mL For 25-OH Vitamin D testing on patients on D2-supplementat ion and patients fo r whom quantitati on of D2 and D3 fractions is required, the QuestAssureD(TM )25 -OH VIT D, (D2,D3), LC/MS/ MS is recommended: order code 9288 8 (patients >2yrs).See Note 1 Note 1 For additional information, please refer to [email or web address] [email or web address] .[email or web address] m/faq/[email or web address] (T his link is being provided for informational/e deric ational purpose s only.) HOWARD (test code = FASTING:YES FASTING: HOWARD) YES RAC (test code = Performing RAC) Organization Information: Site ID: [facility] Name: [facility] Address: [address] [place] [id number] Director: [facility] HospitalMicroalbumin / creatinine urine [id number] 23:09:00 Test Item Value Reference Interpretation Comments Range Creatinine, urine 156 mg/dL 20-320 (mg/dL) (test code = 2161-8) Microalbumin, urine 120.6 mg/dL See Note: Referenc e Range: (test code = [place] [address]-0) established Res ults verified by rep eat analysis on dilution. Microalbumin/creati 773 See_Comment H The ADA defines nine ratio [...] RAC) Organization Information: Site ID: [facility] Name: [facility] Address: [address] [place] [phone] Director: Rakan Aguirre Lab Interpretation Abnormal (test code = 68593-3) [facility] Rmjmfhrmlddldq6827-49-71 18:28:33 Test Item Value Reference Range Interpretation Comments Submitted Clinical History p7hkyGJvEKFfbCN2ZKH (test code = 87606) cFXPzl2pjk4HghYQexT IjDWxpxUUdsaGijk50p CF9xS37SQ9wZWGiSnR2 RUQpldC7Anc8AAJsJMC ueSZlO551s8cbd6vyfy TzkAJ8fNqcGPGrkojeO rI5ODhfPHXtfufuUXe7 VQphBEZjiEY9HHQitTI iC8KoZXTsRI3jyzt4YQ V3XLxbICLwAoY3WUCdt ROtQBQmoOgvUFmhk000 GKE8ZcCkSXPdvaEwsBx nwP0fDhSwCJJOBcOLF0 ImjuaaBXjugiM2d8Zzs oMpjiYphy45LP4hRhuo bMA7EOHdtf8= Diagnosis (test code = 34) v9ageHXbBPCucWN5DQP bNTJou3rli8UktBXeuB CwFOxjmJBhxyFkqe02h GK6dQ82FT7rCJDpVyV0 KBZdnfT1Ral4QNGqAQJ iqNSgY785e5pzv6quox EenUK9HWWgBBNpI7RuP X5hZTCfgEVxA34joOJg XKF4BIHkSKEqdPGlCEP jCCI5WRSlkMLlF4bzSE PtUZ5jbjbnEKdkFLbgA XYzyMV9HBVduYTaK6Vl HATgDWemRPLuoqx6CvP iRk9pyUKpeAblPRpoQL JkXHBsYWluXGZzMjBcY 5BbIFK6COEozU7xEHBs U7d0AZOwJZS1upzhzVg ysmFlrSIoqenae7fezs Q3VMXtsaeriZkeNCtcq I55HnLqU8NtRYq9vCOf dNcxv0ZpRySuI2Usloq zYUgbjcE7v9JbycX5fH XgAODlnsG3LBreTSl4V J2jhH9cNPUxBHXcq8Tx eGO6KQAfwIUntMZaKdA hdHVyZXMsIHByZXNlbn QgYXQgcGVyaXBoZXJhb MCqbkNmGu9gNKbnwCVz YILsELQxl7Y5LWFrWDg mqy5zhYZrQWYsva7wkL ZviRJlk6NaamRqtqAcD w4gmVyqlTlweOkzJelb YXJ9 Gross Description (test v7obkEDwFZDbjAGRLVs code = [id number]) wMVxhbnNpXHNwbHRwZ3 IpneygVUqpUC1lSX2sf XswsERhgDHfNI1UCWSm ZmYxXHBhcGVydzEyMjQ tUVUbjRMpeWD0ODKlYH 1hcmdsMTgwMFxtYXJnc yC2BDPayMZqZ0LsILEw ND6geidsGEI7JTridY3 aixJGAybjRa4dfHKacT tcZjFcZmNoYXJzZXQwX VPfeNjjUKJoUQc5qS8Y WdyqH80ix8F0Pve6KWF cEMYzK0RzKC8cQZLcyE OsM12SEpwwTMI9BKATA yvqIWObXI7Rz2vrOXXs oITfIWO7MYqagRLcDQA hYGJtRXr3HUBqMVvilQ HqNW8ryVxuQqgfrIxxa 2VjdCBcXGlkIDUxMDAy TKbhXTYnKM8TRkMxOFR lNmD3CGTdNBy7KCj3JF 1BGfQfIYByOHOoPnP7B IOpHBg9MZkvSY4NJIPa NzEzNzAwOTEgNTUyNDk eKQx9XUPpGUmeBYTdwZ FsIFxcZnMgMTAgXFxmY iDfBKBwEGarlhV6EJTa YWluXGJcZnMyMCBBOlx jKNBeMKuecZuvdW6iNH GaD43gd9ETl4MtYI5VA Il7nnEchnwjvJ9jVEKa qyQvMWygnIBwV2eePhn eCyZfYgTlFUHsh1nsxf wgcmlnaHQgcHJlYXVya AZ4qTWiMYLlUOTrRhhb MFxjZjAgIFxjZjEgVHd lSTVrBZPcr3CoyDdqhN 7eJXIpQGNfpnUks9qkA XDdKPLaxKB2OMOnWXEl QmN3EDTkDkS4TVGeIRW peFFdhmRqJY27FLxwUQ 8rSRyiHK8gCNFzMQXgO FxiMFxjZjAgLCBlbnRp mzDdfRPnvRSdpNB1OBY fvS5tYVAwIIBxeIRwuU CzpGpcDtjbiRL4NGwxO pzcfP3bmJKKHRFRAlnC ChwqpuMxAX2PUM3LBdA HOA41KxTcFLI3JGdSW9 PKvQB8Hle0RAr0nVxaR zcttlMdwKIcGxHEhF2P IOtrNcwegLT8GEznRnr ewR2mvFAVBWQASidYQl qiioWhYJ6FFA5RNL4Pk PFgGRS6dHH9FRXZLluc cLU0cXC4jM54BKXmHOG kzBIlOAspT420KCJhQG vnTYk8ndLwVEFyBhVyY HitHFUdG93lk0KQx6Fv XCWmj7bfhXnes0YvtBI uZFxwYXJccGFyZFxzbC 9sVkJwm6jbcNo0AIhnt nE9WIMvqx2rtTubeB0y HDyjm3weTRU1PPDzcRN phRAoEVdukFfxmO4rJb ZgZdb7UVodQVEwY1DgJ 1KvwmN3SXVqSQkcVXOk MTYgDQp9 Disclaimer (test code = i3qdyZFuADLavDPrTwE 9844) yXQSbZKFoa1daFWExwI FuZzEwMzNcZnRuYmpcd XSlJVPtUcRcj1wmw279 aAJmp2fyWPGyWtP4cKW qUVQcoQGwG600IUGcBF ewo4xxg1ZtSAFmvESax 1R2NZOWyzyteZm1wQoy E10va8B9KysrU0ieMJR jWLSxM9DqYQ6mXPMhWn r1YLA5LLQ0NCVyKAJqF 4EnHF9nDQHqzGFkVKo5 w9wosIduIMEbYCJ5j0j sLOrjzkNjJI4xgr6phM s6e9fglpXzIRAoKGGvc QWUTSHjI2IkyMcbVs8b rGs7aRsiQtpmPWH0Kau 5PD5ham31ozq0pNclAX KayeaxGcA0ADsfDTZwb mzdSAm6QBfaACMayPJ5 AYSafNTrK7FaNQWdFK5 dnki6JYG3GYkrDKClJo U0XLXfiTTxQOBmaVxoO Rqmn554GDQ1BbOhHO6k N1Imd3S8nG7crGMwBNL aiNTfWkGdEILvzg0vtS LhRWmbj6OsWCP2duT3t PRhaKWcWNTbQT85Bqqh x1JkPvroBUA0NQXsdhB kc3Hej7piBwFjhuJhK2 lnD4ZxPHPjOCVrPBEyH oCflxPrk5Uht3SouRUx uDu1l9brZVNgENMfyAn hq2paXDY0JDFqR8H3jO Rdg3miMBikWUJybXT8z uW4JQUpdJXwA8YpiU4n IYTzRW8hzsx2d0lwURW 0RBwvAVFyRxP0wgP5CA BcaGVhZGVyeTcyMFxmb 760XQN1KnWaSYWvg9Ed T6IniXnaL14lrZvhP65 oYWSlfUiboT3raSgxzG 5cZjBcZnMyNFxxbFxwb UBllpqoUYiyvvS9TCyx pzdtUUTiEGumN1iuMiF sLSPhjYwyFBwrg9QcII XbEDCvEzaathY3GVOCf 70xRRVww1ZeQLJyuR2e jCKrLJnbhrSpzZF4QSr hdmUgYmVlbiBkZXZlbG 5gCFEgKS2dFYOkutAku n8mkhApCAMwRKUgS9Zv cmlzdGljcyBkZXRlcm1 xspVdRMY6PPCKRT8FTS TkVXZye35hGXQvbVwqf P8udWUajdLmTRCuk6Fi nG0qsFKUMSEqB5vsCS6 xLVgdv4JieZBfoWLjuX Y3VXFgy9ZsSvTcrzJfl HVxzLSuV3IcwXcnB1lu EWYkODVhnoVhlRDis2U eSIYgyAB6kWIcAB5KJz QLk20wEWOgHKQWcmWdP UEmgYkdwPF3ygB4iT5c LiBJZiBhcHBsaWNhYmx zSZQux237oe2nduA5BR AyQSCguzpcz4FbWWIjA CPdeE63GOZsBLAaoz8i jjeccQAzfpKjU2Vvrhg 0eF4uVMFrZEgrRHGoRX ZzMjJcbGFuZzEwMzNca GljaFxmMVxkYmNoXGYx NPenX8ubMwGqRwSjWjx wYXJ9 [facility] Interpretation 2022-03-19 18:28:33 Test Item Value Reference Range Interpretation Comments Submitted Clinical History i8oqaSYuJODxmZZ8HKL (test code = 65638) iGDJov8rfl4GhcHJwtF XiEXstyUYlkhPdme08u OZ4bD03IQ7cUIUfBtG6 UHIwoiC8Nwk7VVBoIJM kpVKhJ566a7ees3rsaq ParSD8zStiNRViqvmxI fY0GMlnVQVhjtfrAOl1 CScgGOGloQD6XVWggWK hH1JhSUKeAZ4mbnu4LF G3DKydIIHnJsC9DFLbu CGoBOLypMtpFLlts700 IQZ6CsZpVKXgoqJctZy qcY6aLrEcTRFECtRXL6 OwxasmGUqpupY6s1Bdl aYjumJiqw07XS2tRoqq oBX6HXRnpg8= Diagnosis (test code = 34) o9xsdTFtPPXzsNG0NAW dXQDtx2pyo0RzbVDxyW BwZRgqnSZvspPprx78t RI8gA02XR8nLXGaXyM9 QAGmpgF7Qiy8TZMiDWG kvBIgB558v4nuk3ympf BahJL5HYSnXRAqM9ZbM V8nHMRieRAkC55xbEMc RSM4SAShHBLdzITmKLT eOIO7RNPjjRZyV2foRY HiNN5npespJXqgDDhoN KPnpIB1JUWebOZrO8Kn FDZdRHrbRRHfgcg6GqQ iSm0wqLJotWvsPJhkUG JkXHBsYWluXGZzMjBcY 4NnBTY0LEFnxD1wZKXw P5n5JMNaDOP8rzxfhVg olpZynEScnkcxs8efwh H9LVXtebiqqBsaCOfrj V85KtEpZ8VrMGp2lVJm fGatj2DtLaHiP1Ucjaz ePCtpbnF9b7RzxpL2mQ XgXYBzniE0EDthKQl2J Z6nsO8jESJfZDSnl8Rd vKM7LISquAKhmANiBfF hdHVyZXMsIHByZXNlbn QgYXQgcGVyaXBoZXJhb LXdhfGrVs3eZLfsvBEw OECyRIEku6P1EFZpPSh ajb7zzEXrNFTgsu2lhB AblUBuk1WfflWombDwX y1hcQmaeBfdqHrfUmtd YXJ9 Gross Description (test b8czwNZfVVCdhMUQKFn code = [id number]) wMVxhbnNpXHNwbHRwZ3 RzckxdCXdvXL3qAY8bj ScmyWHpuXHbHY0VRWQm ZmYxXHBhcGVydzEyMjQ kMHPxhOFghUF8VYPkFQ 1hcmdsMTgwMFxtYXJnc uM7NFPlpYGvE5HxDWYt PB2qiklwIBR5MDxgoB3 iqcOITqwjDm3uyTEvkU tcZjFcZmNoYXJzZXQwX OCwrIkoGKQiZBc5nK7T OcmmV34xa9Q8Cvz8NNJ rHINrK8GtKD3tKTZiaE GdI29QVyztGNR5KAMTH iklXHTeED1Dl8gnTKQe cJIxMQH1PChlgBAoPQG hWKKnYEx1GTNuIIavxF LbRN7cuTgyJtfxkNfif 2VjdCBcXGlkIDUxMDAy RLccUHZgEC4LKvSfNXB bYmP2CALaWUx8XKv4RI 7MNkPtWWNwZLEpBcO8T ZNvATx0ZGviGS4EXXLl NzEzNzAwOTEgNTUyNDk pXJl7EUTvIHecZNIviN FsIFxcZnMgMTAgXFxmY aZoYVAzOTtkclJ2HOKg YWluXGJcZnMyMCBBOlx hWDAvGZbqkVvqfY0sNM HpM34fk0TSl1WiKR9HU Lm9neWhhtogwD4vKMXi lyXrYUscxVRkZ4xeRqc bLvEbEnAoCUEua6optv wgcmlnaHQgcHJlYXVya FC1yHXfUUQhIXAbVrxl MFxjZjAgIFxjZjEgVHd aRTOkHBGgq4WkqVypbK 9bMJZrKKPrsdCxn8wfZ TUfXNUyaUG1ZBYwRHGi SvU0PMPgGdC6LRQlVSE kgTIedfLmXB39EIyxCH 1gJQvzEC9tDRVpHVXjM FxiMFxjZjAgLCBlbnRp jwStdJIrgPCuiBA8ANM jkW2iOCHvHDYhyPBjxQ LxkMptKerflWN6VLmaI vxbeW1cvMYAIMYDPeiO SxoemgBqQL9YCR1KUeL ENK65RqSgMPC7GPaQH7 FOoPA2Ehu9DHw4sGniM pfnsnZzmGQjQrPKtA4W EYkgImewwYA1QLzkRmg qdQ8poDNHVAQVQmaCOx txwwKiAU9POE9PNV7Je MRnDDD5iGI5PXIMIpez rRU0hJD2qI94ELQfFAM zvMRwEHgiN522DVKlWT ysFSh7lrHrKDVsUlCuA KkbKZFjF44wp1VSr0Pg TUUvb9sueDvgr6OhwPH uZFxwYXJccGFyZFxzbC 7hFdSpa6nbwWg2LIjgy xH4DAAbhb4ktIqnoA9e KZgsq2kxSQW9XBHnsZZ wiQNoOKdffQeqcB4uFn MrFbs5VCmyNHVqT9HuY 7YxwfJ0PQDjKMsvHAAo MTYgDQp9 Disclaimer (test code = w4rdgKAhYDIrvGTbFdO 9844) xWSFbSDOdx0fiEGRrvM FuZzEwMzNcZnRuYmpcd OPnNEFzPiEpx2buf559 sKNhk1jtRARrMyJ1sKY yCZLrcZGoK769POJlUA otn8rrx7NnDEMbxDVrj 1I3INHUbudzyVa1xEkz V94el9F5WmwuX2pnJDI cVCVuL8HjMN6eTWHxQi n6TBL4SOY8JGLjZSPmR 8KlXF1nQUFcnQXsHDj1 d3lurUakZQTrPDH9y4q bMGkmvfClYQ0cwr7lsP b2h4vngmBmQICxQDQzr QDLNROuK0LqvXlsLk2q eOe9nKanIrypSNT8Xkq 0CM8aww04gcz6bAwvKE CfqokdCmO5ABrpZQBkg jwzKNf6ANjiUXBeoPF3 NRCbrEJzK1ApNGEqFA8 wsdt1YKI5WZowYTKfXk O7AZNoePJhCHAhhUusJ Ncmg177LNZ5XnStYA7v E7Fxu3Y9yJ6udEDkLIB ffIMnOdUxFTAhqd3evK WsRQqnk1NoMQV5ggF4o ZKqbKFaVKIlKJ94Htvc g3RoVrtgQAL0WCVfwiK fs5Yjg0bmXbEfhmGmT3 gqS5VoUQEvNKSgZJZvO xOsnoMvy1Gat8SacPCy lPq4a5tdBYIlXKXsbCt lh0nrFPS0KGOfI9Y7kN Pjf5lqQUhpCBVpkTM7l pO9LHUoyABnE6TldR7n AUXxGT7fdpx0a2nvKLX 4CWsuLUDmFtK4dtU2GD BcaGVhZGVyeTcyMFxmb 486YVN1NyPwVGSkw5Sc Z4HwmEniF73rhVmfB09 iVABxhIifpM2ftQbcxQ 5cZjBcZnMyNFxxbFxwb VNihpglZOldsrX3KMwm fbvhHFDpUXueH9bzLiE fXUJmgHiyNYyuz4WkCZ OjPUSzWjavdfP4GQSOx 69kNPIqm6QoZDVinW0r vDIsUXsovuLrhFH3OSr hdmUgYmVlbiBkZXZlbG 1rJPAvTB5lGCLvduHln i7dwzAhECCpGLWkX6Df cmlzdGljcyBkZXRlcm1 ggfNjTNE7GZCDZN7XMV FpSMZkz92rKLIwiMuyu A8avXZtupCxNTUag7Ew jJ6cjAYMCPMnV5aoBW6 nFYaxz2RqgHChvVZkkE Q5OAUaf6VhLcQzseVxc VLpcQBeC8NyoRpzF4vc ZKFhBGEmxjItrEQef8Q dEMYgaRV2nEWcXP1OBp OBf37kWPIrWTDYxbIeE ZZibZiuqNG6ymH8rV8g LiBJZiBhcHBsaWNhYmx sCYJvf442jx6aitL4IU ZwPBDfhywyh2RoROMwF SLfaG59WTArTTIwga9d vkztpJIyplAoS1Yhoqm 9bG8eVUJcNUafYYHyJJ ZzMjJcbGFuZzEwMzNca GljaFxmMVxkYmNoXGYx VMdgH8fmUdGaBwKvFjm wYXJ9 [facility] Interpretation 2022-02-17 17:05:35 Test Item Value Reference Range Interpretation Comments Submitted Clinical History e5nukCZmWIJwcUG6JIL (test code = 37850) vCMWwt3qhw6XalXUyzR AoLBrtvDMizuXdem24h TY8dQ64TK9cNXBnGuO5 GFObixO5Pwk7TUVqJQT egDKpT443j7pzb7agab ObfLD1uKkuWPLbbaktW yW3JDwoCLOdtklbKUh5 AFdhWBNfmKT4CBVaoXD vC7UaAYKuMN3jmnw3XQ G4BVdcRPNbQwL1NAJqf CJjWKFnmOzbALlhc755 SRE4EjBqLJEwzgMmnMx uuN1fCzGkNPODfBHodA 91cyBjZWxsIGNhcmNpb d8cQEDdAuFxl6HmQXtR RbZkIO1glTHwTLJ1HOx GLcN3uhGES9WnKFUonb 0= Diagnosis (test code = 34) m1czvPDbLGKftQO9JVD pSZBoy6kmm1IogKRwkJ ZtPCejcCBzmpPana66j RK2cP83YU1bUONtQdX4 ZSTwsxC4Ihl8JEIgKCW trOUzU620l3flj8ijwb FahXG6GEHzATBuC3UuT H7pRLNkqDEbA11waTJw ZFQ6VIUlOUOqpLGgLFW pSUD2PMFuqXKvP0bqLW OyBL6fjzolZYkkCLcyQ BLevSV0XAFzaCTeE7Wh KNQxKPeqCOVksgx6QlQ uWc0aoSMzqTnvTRutKG JkXHBsYWluXGZzMjBcY 2FfIWP8VADxQ4k5DFp5 Q48wTLfwb0akqfRrgBE 2ZTpccGFyXGxpNzIwXG rqrpvwMRwxEaVvVe8OG AzeK5RHCU9EGEMuW3LD BGAQTWZNDP3TRUSdSOD YR5eLAlKAGmDDSBFJG1 jCLl7XIuIzQ7UbOAcCB VJQTEFTVElDIEFDVElO SPDaA0WJTKZYV7hMVGM KAXAAAZAIEDyRH4PEYR FmAO1AY8qIXH8BGaXfF FBSRVNFTlQgQVQgVElT C2HCVTYNN6ZUUfhxLJW dDo5xiMpfhNsusKioQA HoTQBnwHTwv4CwUIqwD gTfNOE3rr1xmEunnLBa xQ0ymRGupEN5d1K5WZz pAmgeaYYwyLPny5l8jR OfD1X9qNBmSEPeD6Vag D6ka4UyjMw6JYPcFIP4 JKPtZU6cMPCvguqiAOO cbGkwXGxpbjAgVGhpcy BjYXNlIHdhcyBzdHVka WVkIGFuZCBkaXNjdXNz ZWQgYXQgdGhlIGRlcm1 fkT6mSYHgk9ajU9vmKi QkvWb4qSUjo53rVCZig mNlLiAgXHBhclxsaTcy NVekaO82ItQjjFFmaR= = Comment (test code = 9835) u9nkzHJzLCHsuJI7YWB jTCNaz7sed4ZwrHDmdA LyRNcqpJWpeaMptm51t IO5qB72UO3gDXJtEyX2 WRJdhnL6Zkm0IHUtEJF crTUbQ400m1rth8xemq TjpHY4pIraEYSvgnydH iR3ZZrzDAWsojenOMb0 KSclRQYxrVG4GJCbnXH iH3HkQLBwQG6wote4CR I5DGinEGLiEfT6OISxf MHcBBTmmQwuUPslf286 EFK9MbUgDCRsbhKyzBz qwL4pNgLePDSIkaYujX 96zy6waGQ1o4ErPA4hY 7BrRKD3iAR3JYwrvxNn RYRhu1XtXNTwtQHdula bfWWqIK4miDNdj30fXV VdS0r4GGimGOvjaDPmD WkwO0vwzKelnFZnu0Jp sVHkunNoMWv6igC1jS0 uFWehvLQiFL1nX3j6JO W2GV5mDQ1tiGBzs5N9t NikSNiqp5jzqhOhviDc ZGVudGlmaWVkLiBTcGV baCMfXTF8PDnzyuNyS5 OCFGttA77GUGH6HEOfA SQkmzLrks7hVEkfC3Xy oV9zp7SloHu5EXUaCFW 4WYNhIDNbypPkm3IxWA U4eSXzcC3mvJnlGPL2y rD0bW3wL84smvP8tKdl Iw2ypPmqyPtleyFjppG 4luBeOlKieB7jGF5tIR Zugjlah8gkoPS0xYUoH pLzK5T7rOOeQVIjDIs8 fMXks6CtzfMbIUycSXO 9wxYtkkItc0WxxqFisc EpsACcwUDfRLIwyp3bo N9hHCLziqyxEEC9 Gross Description (test g0qrdWAzCGEeyQHHFNd code = [id number]) wMVxhbnNpXHNwbHRwZ3 MgvhweQVxoOS7nZK3jo ZbfhEBllNAnUW6BCKXb ZmYxXHBhcGVydzEyMjQ hXFWhdGAsxER0IFZdHR 1hcmdsMTgwMFxtYXJnc kI7OREujOLdE9ZbKHFc XP4ddoptWPC1DHilvD7 uoyEQJjxgOf7bqIBtnZ tcZjFcZmNoYXJzZXQwX IBkjLspZNAiJLq3kN1I TamcD57ql3C8Yvw4SKE wTRFfW1BsQB1vNXZlkK AsO29EAlxbIJZ9CWJON pweURNsWI1Dw0smWVCx iHOjWNG3MFdzxCIjBGO iTMEtCLw3JIXoNOrsiS WjCB2ucQgmDpzmpVrbk 2VjdCBcXGlkIDUxMDAy LMjaZAIxKW1YCkVdOXC dFQH7BWFsRTy9RCl6VQ 5GUyAuRBUhTUU1ZnS0D wCjJPl5EGhlZN7JCGAq RQUqFSZ7RIpsCOAiPJX hWQb7JYZpMPeqMNHnfD FsIFxcZnMgMTAgXFxmY hAgCKNwODlicmO8PEIa YWluXGJcZnMyMCBBOlx vQDTtJRkmzXccgQ4yST AdI22dr7ERy3EyWK8LB Oa3ozLduhuqkT2qRWKu wjVsIEsclJCoG9snEqb pFuOgElBjRTZTo4bqEY PgtWhqrHJ7gTukhZT4E GIwXGNmMCAgQSAwLjcg tPJqAoVuxKEsQqKfM03 fPYPnvkRuv6sdWJOaLY ZlLiAgVGhlIHNwZWNpb VDnKKyjEEbch1WuBADv cPIuT4RwWYgiDZ97rNI frSjfz9HxrTj4kCYdOY meVHXcTtClCDFhu5RyT 1I0KKQwCIpcd8xaGNKj HBlyo3AmGUcVWKTBDO6 UWL9muFE8FQzKU6FTI7 dZcYNxZDU1pLA8NYCYE yglpLC9cYE2sZ11AKFv XRAvxAPuBBxzM308CRU 2OUAlGYwdm4bqSNGsJJ zmd6FwXHxKVBKTKR8FD D6hqNG6NRxEL7FMICpu GZGjSttykOYOYXG7NVf dgMlbjBs2x5godCKvv2 j5VKncKVU7dYuryJAvd usnzZYuzMcvgcQyQY6M WGYtcNCTKMC1ZW2uWEe 4AKdeDCDaZ2TuU0Hujq KllKCiAQCodgOlm0rlZ HA9TLOreHUltHDwUgTr IpidIOC8VIGpAYhuZI4 JVXZjWNM5MBfmgH86rQ EgWK4SRFJtINrhAFNgE SZqmzL5IIVxdWZdBNY4 PC0dzUjvqTKguwoessD 4SR7BvW== Manufacturing Maintenance Technician(s) (test code = [id number] 9842) cCPPlh0mnu0MotXMojD GhCMmrrQBorlStuq16y PJ9uG86UZ1fXXOgObN1 KTFmzoC4Fse1ZWXlBUE lqUPcD090b3ouy4lfkf PhqEF9iIqwHLMfjaosO rT1GLpbAMTwcmabAKi2 HZpiHOYmdSD1INKwnMZ yS3PnEINvKF0veah6NQ E4WOrcJDLpQaY5LBUle PYgVYUntJgjBLndp558 QHY2IwMtXBYhxsKdaTd twR7rVsJuUXWEX0XnGR oISbozK7PXIOFJPecbC XJ9 Disclaimer (test code = c8fxtJZbICZgbLQoLpY 9809) iFRRhAVIkd5xmILXwkT FuZzEwMzNcZnRuYmpcd GFgDGEzVjBjc6tmd110 mHKyx3bwPRAsYaV5kCZ gIGRfpACoS565CFIvRJ hzi6yyt0WgITAajZWtu 4T7KUQJwjwknSi5nFda Q85lt0S0LcolD8xzSVG bPZIlV3MmKO9wAASkJj q0HSG8EBX4OFJoKRVkG 2BkJD4iIVInaXKxOMi6 k4qrgAluRKCzRFJ4y7p cOKbrzeGpWJ4wwo2ohV s5a5cwhvTuYUVsBBLab CCZXNOwL2AnyDwtGp1c oBk9lWgnUjfxMGV0Qij 5SB6zyg35yvv9kYrcWK KdrwdeVuY2NZxuFIJon aiqJUy1QPqoVDIevIQ5 IDPdcPUzJ6AuZUZsIZ5 lbuw1ZBD2TBoqQNFoLk D1CKQwiUDxLIYdmRoqR Fknm682WUN3GcEhVX0w V4Hfy8K9wX1ebSPkYGY urGXvBeNiDVMteo9byE MmSTgfi0NxPGR9fuF8y RJapMZlGXCfWV96Ajtl f0OyGystMNL5PSDhpjQ bi5Pkj4htQeDkdiBaQ2 xnZ7WkGMFbBRJjSRPnS nUmrhYet6Ndy4ApxKCs uQb1j0hcAYApRMMgzHx zm5hmSOT9CKJyV2A0oC Eiq3tdJJnlDAIekXK3k iZ5YPVyvNYrY4BwpQ9y JPZdOX7rxfk8j6xcMHK 2YAuvONZvJqK0ijG6LY BcaGVhZGVyeTcyMFxmb 653JJH9CnQeVUVvg2Gl U0HjeCfhH68isYpmP74 dTEQmqTqmuJ1huSypjX 5cZjBcZnMyNFxxbFxwb ILohcttUPsvybC8PJgq nhvbUJAiNVioL8bzLeM zXIJzwJsrNDefh9PtTW LlKGHnCeqoudQ0FESPf 05oEYPkp5UlLZXjjK2i jQUsBYqwynKmjKY3LSh hdmUgYmVlbiBkZXZlbG 2eDBHzRP9sBCAazvQph b5dnaPvYIDjCMNwD9Cd cmlzdGljcyBkZXRlcm1 hckAfNFO3EADQAD1WDO JmFQUoj81qYPNonHxux P5bzZQpslMzWPTyb6Fu uR5drHZXCZYqP7piYP7 gRKjvr3DouSXyoNWpsM E9FKSlc7SzPtRidlPos AJwaRKhG9UviKxdH9hd KFNmNMWwzzVjqOPex4K pRARsfAZ6xJEzRQ6GWd PAu55fHLZlTDHJdiEpS RFjgWpnsQJ9arI7vX2i LiBJZiBhcHBsaWNhYmx dTYFoi977bh1jvnD6QM NfLHJlabntt3VpMCLwS IDomC63ZIOmVGSlog2a wvglsZOnveJeO9Dkiej 4cZ8kTFRuNYrgUVZuSE ZzMjJcbGFuZzEwMzNca GljaFxmMVxkYmNoXGYx QQuuQ1cfRrGrIbYnRqq wYXJ9 [facility] [id number] 16:43:00 Test Item Value Reference Range Interpretation Comments POC glucose (test code 128 mg/dL 65-99 H Opera tor Name: Sommer = [id number]) WarrenDevice ID : [id number] able: [facility] Notified recruiter specialist Interpretation Abnormal (test code = 84269-9) [facility] [id number] 23:59:05 Test Item Value Reference Range Interpretation Comments Case number (test code = [id number]) Cytology See link below for (non-gynecological) PDF Lab Report report (test code = 1178) Result status (test code This is Final Report = [id number]) for [id number] [facility] [id number] 23:59:05 Test Item Value Reference Range Interpretation Comments Case number (test code = [id number]) Cytology See link below for (non-gynecological) PDF Lab Report report (test code = 1178) Result status (test code This is Final Report = [id number]) for [id number] [facility] [id number] 20:28:42 Test Item Value Reference Range Interpretation Comments Case number (test code = [id number]) Surgical pathology See link below for report (test code = PDF Lab Report 2255) Result status (test code This is Final Report = [id number]) [facility] [id number] [facility] [id number] 20:28:42 Test Item Value Reference Range Interpretation Comments Case number (test code = [id number]) Surgical pathology See link below for report (test code = PDF Lab Report 2255) Result status (test code This is Final Report = [id number]) [id number] [facility] [id number] 20:54:28 Test Item Value Reference Range Interpretation Comments Ventricular rate (test code = 253) Atrial rate (test code = 255) MT interval (test code = 266) QRSD interval (test code = 260) QT interval (test code = 264) QTC interval (test code = 265) P axis 1 (test code = 267) QRS axis 1 (test code = 268) T wave axis (test code = 270) EKG impression (test Normal sinus rhythm-In code = 273) automated comparison with ECG of 10-28-2021-Electronic lly Signed By Graciela BLANK, Chad ([id number]) on 11/13/2021 2:54:26 PM [facility] [id number] 10:12:45 Test Item Value Reference Range Interpretation Comments Urine culture (test SEE COMMENT Bacteriu sarah screen code = 2046192) negative. 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 (test code = 16175-1) Whether the patient has symptoms related to condition of interest (test code = 01920-2) Patient was hospitalized because of this condition (test code = 29159-0) Whether the patient was admitted to intensive care unit (ICU) for condition of interest (test code = 94433-2) Whether patient resides in a congregate care setting (test code = 22198-4) [facility] stress [id number] 11:08:51 Test Item Value Reference Range Interpretation Comments Resting HR (test code = 9116260307) Resting BP (test code = 2143263069) Peak MET Achieved (test code = 6673288961) Protocol Name (test Lexiscan code = 3727830838) Time in Exercise 00:01:00 Phase (test code = 4709369503) Max Systolic BP (test code = 9410421607) Max Diastolic BP (test code = 9575732744) Max Heart Rate (test code = 1833027228) Max Predicted Heart Rate (test code = 8316914007) Target HR Formula (220 - Age)*100% (test code = 6789739080) Test Indication (test S/P Heart Transplant code = 1714367158) Arrhy During Ex (test code = 6465084777) ECG Interp Before EX (test code = 0599392953) ECG Interp During Ex (test code = 2650307752) Ex Summary Comment (test code = 2951260090) Overall HR Response to Exercise (test code = 3123501337) Overall BP Response To Exercise (test code = 5155984180) Reason for Protocol Complete Termination (test code = 7204256080) Stress Test Waveform interpreted in Impression (test code report associated with = 6357529236) image study. 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 (test code = 71183-6) Whether the patient has symptoms related to condition of interest (test code = 40532-3) Patient was hospitalized because of this condition (test code = 13554-6) Whether the patient was admitted to intensive care unit (ICU) for condition of interest (test code = 22940-5) Whether patient resides in a congregate care setting (test code = 91912-6) [facility], 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 Mcmullen, as an intra-procedure imaging consultation was not requested. Reported fluoroscopy time: 44.5 seconds. Signed: Munir Grady Verified Date/Time: 10/21/2018 14:21:41 Reading Location: [facility] Reading Room POCT-GLUCOSE [id number] 14:02:00 Test Item Value Reference Range Interpretation Comments POC-GLUCOSE METER 160 mg/dL 70-110 H TESTED AT [facility] [address] ([facility]) (test code = [facility]IGD[employer] [employer] [facility] 1538) [address] POCT-GLUCOSE [id number] 12:28:00 Test Item Value Reference Range Interpretation Comments POC-GLUCOSE METER 158 mg/dL 70-110 H TESTED AT 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 Mcmullen, as an intra-procedure imaging consultation wasnot requested. Reported fluoroscopy time: 35.8 seconds. Signed: Munir Grady Verified Date/Time: 09/16/2018 13:42:50 Reading Location: [facility] Radiology Reading Room POCT- GLUCOSE [id number] 12:18:00 Test Item Value Reference Range Interpretation Comments POC-GLUCOSE METER 154 mg/dL 70-110 H TESTED AT [facility] [address] (JESSENIA) (test code = MIGDALIA [place]NANDE[place] 1538) [address] [id number] 10:58:00 Test Item Value Reference Range Interpretation Comments Tacrolimus Lvl (test code = Tacrolimus 3.3 5.0-15.0 Lvl) [facility]AT[facility]20[facility]16 10:58:00 Test Item Value Reference Range Interpretation Comments Tacrolimus Lvl (test code = Tacrolimus 3.3 5.0-15.0 Lvl) [facility]loppauRKBHJZEVMA3111-40-08 10:58:00 Test Item Value Reference Range Interpretation Comments Tacrolimus Lvl (test code = Tacrolimus 3.3 5.0-15.0 Lvl) [facility] HospitalOamnzaaGEQTWFJCQO5702-16-24 10:58:00 Test Item Value Reference Range Interpretation Comments Tacrolimus Lvl (test code = Tacrolimus 3.3 5.0-15.0 Lvl) [id number] 10:58:00 Test Item Value Reference Range Interpretation Comments Tacrolimus Lvl (test code = Tacrolimus 3.3 5.0-15.0 Lvl) [id number] 10:58:00 Test Item Value Reference Range Interpretation Comments Tacrolimus Lvl (test code = Tacrolimus 3.3 5.0-15.0 Lvl) [id number] 10:58:00 Test Item Value Reference Range Interpretation Comments Tacrolimus Lvl (test code = Tacrolimus 3.3 5.0-15.0 Lvl) [facility]Crx[facility]ckHIUVKHYLSF7050-27-66 10:58:00 Test Item Value Reference Range Interpretation Comments Tacrolimus Lvl (test code = Tacrolimus 3.3 5.0-15.0 Lvl) [facility]CawwadiXAFNWIRHZN7975-51-48 10:58:00 Test Item Value Reference Range Interpretation Comments Tacrolimus Lvl (test code = Tacrolimus 3.3 5.0-15.0 Lvl) [facility]2018-07-22 05:30:00 Test Item Value Reference Range Interpretation Comments Creatinine Lvl (test code = Creatinine 1.61 0.50-1.40 Lvl) [facility]2018-07-22 05:30:00 Test Item Value Reference Range Interpretation Comments eGFR (test code = eGFR) 42 [facility]2018-07-22 05:30:00 Test Item Value Reference Range Interpretation Comments BUN (test code = BUN) 53 - [facility]2018-07-22 05:30:00 Test Item Value Reference Range Interpretation Comments Glucose Lvl (test code = Glucose Lvl) 146 70-99 [facility]2018-07-22 05:30:00 Test Item Value Reference Range Interpretation Comments Sodium Lvl (test code = Sodium Lvl) 134 135-145 [facility]2018-07-22 05:30:00 Test Item Value Reference Range Interpretation Comments Potassium Lvl (test code = Potassium 4.9 3.5-5.1 Lvl) [facility]2018-07-22 05:30:00 Test Item Value Reference Range Interpretation Comments Chloride Lvl (test code = Chloride Lvl) 99 95-109 [facility]2018-07-22 05:30:00 Test Item Value Reference Range Interpretation Comments CO2 (test code = CO2) 25 24-32 [facility]2018-07-22 05:30:00 Test Item Value Reference Range Interpretation Comments Calcium Lvl (test code = Calcium Lvl) 8.6 8.5-10.5 [facility]2018-07-22 05:30:00 Test Item Value Reference Range Interpretation Comments AGAP (test code = AGAP) 14.9 10.0-20.0 [facility]2018-07-22 05:30:00 Test Item Value Reference Range Interpretation Comments Creatinine Lvl (test code = Creatinine 1.61 0.50-1.40 Lvl) [facility]2018-07-22 05:30:00 Test Item Value Reference Range Interpretation Comments eGFR (test code = eGFR) 42 [facility]2018-07-22 05:30:00 Test Item Value Reference Range Interpretation Comments BUN (test code = BUN) 53 7-22 [facility]2018-07-22 05:30:00 Test Item Value Reference Range Interpretation Comments Glucose Lvl (test code = Glucose Lvl) 146 70-99 [facility]2018-07-22 05:30:00 Test Item Value Reference Range Interpretation Comments Sodium Lvl (test code = Sodium Lvl) 134 135-145 [facility]2018-07-22 05:30:00 Test Item Value Reference Range Interpretation Comments Potassium Lvl (test code = Potassium 4.9 3.5-5.1 Lvl) [facility]2018-07-22 05:30:00 Test Item Value Reference Range Interpretation Comments Chloride Lvl (test code = Chloride Lvl) 99 95-109 [facility]2018-07-22 05:30:00 Test Item Value Reference Range Interpretation Comments CO2 (test code = CO2) 25 24-32 [facility]2018-07-22 05:30:00 Test Item Value Reference Range Interpretation Comments Calcium Lvl (test code = Calcium Lvl) 8.6 8.5-10.5 [facility]2018-07-22 05:30:00 Test Item Value Reference Range Interpretation Comments AGAP (test code = AGAP) 14.9 10.0-20.0 [facility]2018-07-22 05:30:00 Test Item Value Reference Range Interpretation Comments Creatinine Lvl (test code = Creatinine 1.61 0.50-1.40 Lvl) [facility]2018-07-22 05:30:00 Test Item Value Reference Range Interpretation Comments eGFR (test code = eGFR) 42 [facility]2018-07-22 05:30:00 Test Item Value Reference Range Interpretation Comments BUN (test code = BUN) 53 7-22 [facility]2018-07-22 05:30:00 Test Item Value Reference Range Interpretation Comments Glucose Lvl (test code = Glucose Lvl) 146 70-99 [facility]2018-07-22 05:30:00 Test Item Value Reference Range Interpretation Comments Sodium Lvl (test code = Sodium Lvl) 134 135-145 [facility]2018-07-22 05:30:00 Test Item Value Reference Range Interpretation Comments Potassium Lvl (test code = Potassium 4.9 3.5-5.1 Lvl) [facility]2018-07-22 05:30:00 Test Item Value Reference Range Interpretation Comments Chloride Lvl (test code = Chloride Lvl) 99 95-109 [facility]2018-07-22 05:30:00 Test Item Value Reference Range Interpretation Comments CO2 (test code = CO2) -32 [facility]2018-07-22 05:30:00 Test Item Value Reference Range Interpretation Comments Calcium Lvl (test code = Calcium Lvl) 8.6 8.5-10.5 [facility]2018-07-22 05:30:00 Test Item Value Reference Range Interpretation Comments AGAP (test code = AGAP) 14.9 10.0-20.0 [facility]2018-07-22 05:30:00 Test Item Value Reference Range Interpretation Comments Creatinine Lvl (test code = Creatinine 1.61 0.50-1.40 Lvl) [facility]2018-07-22 05:30:00 Test Item Value Reference Range Interpretation Comments eGFR (test code = eGFR) 42 [facility]2018-07-22 05:30:00 Test Item Value Reference Range Interpretation Comments BUN (test code = BUN) 53 7-22 [facility]2018-07-22 05:30:00 Test Item Value Reference Range Interpretation Comments Glucose Lvl (test code = Glucose Lvl) 146 70-99 [facility]2018-07-22 05:30:00 Test Item Value Reference Range Interpretation Comments Sodium Lvl (test code = Sodium Lvl) 134 135-145 [facility]2018-07-22 05:30:00 Test Item Value Reference Range Interpretation Comments Potassium Lvl (test code = Potassium 4.9 3.5-5.1 Lvl) [facility]2018-07-22 05:30:00 Test Item Value Reference Range Interpretation Comments Chloride Lvl (test code = Chloride Lvl) 99 95-109 [facility]2018-07-22 05:30:00 Test Item Value Reference Range Interpretation Comments CO2 (test code = CO2) 25 -32 [facility]2018-07-22 05:30:00 Test Item Value Reference Range Interpretation Comments Calcium Lvl (test code = Calcium Lvl) 8.6 8.5-10.5 [facility]2018-07-22 05:30:00 Test Item Value Reference Range Interpretation Comments AGAP (test code = AGAP) 14.9 10.0-20.0 [facility]2018-07-22 05:30:00 Test Item Value Reference Range Interpretation Comments Creatinine Lvl (test code = Creatinine 1.61 0.50-1.40 Lvl) [facility]2018-07-22 05:30:00 Test Item Value Reference Range Interpretation Comments eGFR (test code = eGFR) 42 [facility]2018-07-22 05:30:00 Test Item Value Reference Range Interpretation Comments BUN (test code = BUN) 53 7-22 [facility]2018-07-22 05:30:00 Test Item Value Reference Range Interpretation Comments Glucose Lvl (test code = Glucose Lvl) 146 70-99 [facility]2018-07-22 05:30:00 Test Item Value Reference Range Interpretation Comments Sodium Lvl (test code = Sodium Lvl) 134 135-145 [facility]2018-07-22 05:30:00 Test Item Value Reference Range Interpretation Comments Potassium Lvl (test code = Potassium 4.9 3.5-5.1 Lvl) [facility]2018-07-22 05:30:00 Test Item Value Reference Range Interpretation Comments Chloride Lvl (test code = Chloride Lvl) 99 95-109 [facility]2018-07-22 05:30:00 Test Item Value Reference Range Interpretation Comments CO2 (test code = CO2) 25 24-32 [facility]2018-07-22 05:30:00 Test Item Value Reference Range Interpretation Comments Calcium Lvl (test code = Calcium Lvl) 8.6 8.5-10.5 [facility]2018-07-22 05:30:00 Test Item Value Reference Range Interpretation Comments AGAP (test code = AGAP) 14.9 10.0-20.0 [facility]2018-07-22 05:30:00 Test Item Value Reference Range Interpretation Comments Creatinine Lvl (test code = Creatinine 1.61 0.50-1.40 Lvl) [facility]2018-07-22 05:30:00 Test Item Value Reference Range Interpretation Comments eGFR (test code = eGFR) 42 [facility]2018-07-22 05:30:00 Test Item Value Reference Range Interpretation Comments BUN (test code = BUN) 53 7-22 [facility]2018-07-22 05:30:00 Test Item Value Reference Range Interpretation Comments Glucose Lvl (test code = Glucose Lvl) 146 70-99 [facility]2018-07-22 05:30:00 Test Item Value Reference Range Interpretation Comments Sodium Lvl (test code = Sodium Lvl) 134 135-145 [facility]2018-07-22 05:30:00 Test Item Value Reference Range Interpretation Comments Potassium Lvl (test code = Potassium 4.9 3.5-5.1 Lvl) [facility]2018-07-22 05:30:00 Test Item Value Reference Range Interpretation Comments Chloride Lvl (test code = Chloride Lvl) 99 95-109 [facility]2018-07-22 05:30:00 Test Item Value Reference Range Interpretation Comments CO2 (test code = CO2) 25 24-32 [facility]2018-07-22 05:30:00 Test Item Value Reference Range Interpretation Comments Calcium Lvl (test code = Calcium Lvl) 8.6 8.5-10.5 [facility]2018-07-22 05:30:00 Test Item Value Reference Range Interpretation Comments AGAP (test code = AGAP) 14.9 10.0-20.0 [facility]2018-07-22 05:30:00 Test Item Value Reference Range Interpretation Comments Creatinine Lvl (test code = Creatinine 1.61 0.50-1.40 Lvl) [facility]2018-07-22 05:30:00 Test Item Value Reference Range Interpretation Comments eGFR (test code = eGFR) 42 [facility]2018-07-22 05:30:00 Test Item Value Reference Range Interpretation Comments BUN (test code = BUN) 53 7-22 [facility]2018-07-22 05:30:00 Test Item Value Reference Range Interpretation Comments Glucose Lvl (test code = Glucose Lvl) 146 70-99 [facility]2018-07-22 05:30:00 Test Item Value Reference Range Interpretation Comments Sodium Lvl (test code = Sodium Lvl) 134 135-145 [facility]2018-07-22 05:30:00 Test Item Value Reference Range Interpretation Comments Potassium Lvl (test code = Potassium 4.9 3.5-5.1 Lvl) [facility]2018-07-22 05:30:00 Test Item Value Reference Range Interpretation Comments Chloride Lvl (test code = Chloride Lvl) 99 95-109 [facility]2018-07-22 05:30:00 Test Item Value Reference Range Interpretation Comments CO2 (test code = CO2) - [facility]2018-07-22 05:30:00 Test Item Value Reference Range Interpretation Comments Calcium Lvl (test code = Calcium Lvl) 8.6 8.5-10.5 [facility]2018-07-22 05:30:00 Test Item Value Reference Range Interpretation Comments AGAP (test code = AGAP) 14.9 10.0-20.0 [facility]2018-07-22 05:30:00 Test Item Value Reference Range Interpretation Comments Creatinine Lvl (test code = Creatinine 1.61 0.50-1.40 Lvl) [facility]2018-07-22 05:30:00 Test Item Value Reference Range Interpretation Comments eGFR (test code = eGFR) 42 [facility]2018-07-22 05:30:00 Test Item Value Reference Range Interpretation Comments BUN (test code = BUN) 53 7-22 [facility]2018-07-22 05:30:00 Test Item Value Reference Range Interpretation Comments Glucose Lvl (test code = Glucose Lvl) 146 70-99 [facility]2018-07-22 05:30:00 Test Item Value Reference Range Interpretation Comments Sodium Lvl (test code = Sodium Lvl) 134 135-145 [facility]2018-07-22 05:30:00 Test Item Value Reference Range Interpretation Comments Potassium Lvl (test code = Potassium 4.9 3.5-5.1 Lvl) [facility]2018-07-22 05:30:00 Test Item Value Reference Range Interpretation Comments Chloride Lvl (test code = Chloride Lvl) 99 95-109 [facility]2018-07-22 05:30:00 Test Item Value Reference Range Interpretation Comments CO2 (test code = CO2) 24-32 [facility]2018-07-22 05:30:00 Test Item Value Reference Range Interpretation Comments Calcium Lvl (test code = Calcium Lvl) 8.6 8.5-10.5 [facility]2018-07-22 05:30:00 Test Item Value Reference Range Interpretation Comments AGAP (test code = AGAP) 14.9 10.0-20.0 [facility]2018-07-22 05:30:00 Test Item Value Reference Range Interpretation Comments Creatinine Lvl (test code = Creatinine 1.61 0.50-1.40 Lvl) [facility]2018-07-22 05:30:00 Test Item Value Reference Range Interpretation Comments eGFR (test code = eGFR) 42 [facility]2018-07-22 05:30:00 Test Item Value Reference Range Interpretation Comments BUN (test code = BUN) 53 7-22 [facility]2018-07-22 05:30:00 Test Item Value Reference Range Interpretation Comments Glucose Lvl (test code = Glucose Lvl) 146 70-99 [facility]2018-07-22 05:30:00 Test Item Value Reference Range Interpretation Comments Sodium Lvl (test code = Sodium Lvl) 134 135-145 [facility]2018-07-22 05:30:00 Test Item Value Reference Range Interpretation Comments Potassium Lvl (test code = Potassium 4.9 3.5-5.1 Lvl) [facility]2018-07-22 05:30:00 Test Item Value Reference Range Interpretation Comments Chloride Lvl (test code = Chloride Lvl) 99 95-109 [facility]2018-07-22 05:30:00 Test Item Value Reference Range Interpretation Comments CO2 (test code = CO2) 25 24-32 [facility]2018-07-22 05:30:00 Test Item Value Reference Range Interpretation Comments Calcium Lvl (test code = Calcium Lvl) 8.6 8.5-10.5 [facility]2018-07-22 05:30:00 Test Item Value Reference Range Interpretation Comments AGAP (test code = AGAP) 14.9 10.0-20.0 [id number]:00 Test Item Value Reference Range Interpretation Comments Tacrolimus Lvl (test code = Tacrolimus no gt 5.0-15.0 Lvl) [place] [id number] 13:46:00 Test Item Value Reference Range Interpretation Comments Tacrolimus Lvl (test code = Tacrolimus no gt 5.0-15.0 Lvl) [place] [id number] 13:46:00 Test Item Value Reference Range Interpretation Comments Tacrolimus Lvl (test code = Tacrolimus no gt 5.0-15.0 Lvl) [place] [id number] 13:46:00 Test Item Value Reference Range Interpretation Comments Tacrolimus Lvl (test code = Tacrolimus no gt 5.0-15.0 Lvl) [place] 152408-07-21 13:46:00 Test Item Value Reference Range Interpretation Comments Tacrolimus Lvl (test code = Tacrolimus no gt 5.0-15.0 Lvl) [place] 152408-07-21 13:46:00 Test Item Value Reference Range Interpretation Comments Tacrolimus Lvl (test code = Tacrolimus no gt 5.0-15.0 Lvl) [place] [id number] 13:46:00 Test Item Value Reference Range Interpretation Comments Tacrolimus Lvl (test code = Tacrolimus no gt 5.0-15.0 Lvl) [place] [id number] 13:46:00 Test Item Value Reference Range Interpretation Comments Tacrolimus Lvl (test code = Tacrolimus no gt 5.0-15.0 Lvl) [place] [id number] 13:46:00 Test Item Value Reference Range Interpretation Comments Tacrolimus Lvl (test code = Tacrolimus no gt 5.0-15.0 Lvl) [facility]2018-07-21 05:38:00 Test Item Value Reference Range Interpretation Comments Glucose Lvl (test code = Glucose Lvl) 125 70-99 [facility]2018-07-21 05:38:00 Test Item Value Reference Range Interpretation Comments Creatinine Lvl (test code = Creatinine 1.65 0.50-1.40 Lvl) [facility]2018-07-21 05:38:00 Test Item Value Reference Range Interpretation Comments BUN (test code = BUN) 51 7-22 [facility]2018-07-21 05:38:00 Test Item Value Reference Range Interpretation Comments Chloride Lvl (test code = Chloride Lvl) 100 95-109 [facility]2018-07-21 05:38:00 Test Item Value Reference Range Interpretation Comments Sodium Lvl (test code = Sodium Lvl) 136 135-145 [facility]2018-07-21 05:38:00 Test Item Value Reference Range Interpretation Comments CO2 (test code = CO2) - [facility]2018-07-21 05:38:00 Test Item Value Reference Range Interpretation Comments Potassium Lvl (test code = Potassium 5.2 3.5-5.1 Lvl) [facility]2018-07-21 05:38:00 Test Item Value Reference Range Interpretation Comments eGFR (test code = eGFR) 40 [facility]2018-07-21 05:38:00 Test Item Value Reference Range Interpretation Comments AGAP (test code = AGAP) 14.2 10.0-20.0 [facility]2018-07-21 05:38:00 Test Item Value Reference Range Interpretation Comments Calcium Lvl (test code = Calcium Lvl) 8.4 8.5-10.5 [facility]2018-07-21 05:38:00 Test Item Value Reference Range Interpretation Comments Glucose Lvl (test code = Glucose Lvl) 125 70-99 [facility]2018-07-21 05:38:00 Test Item Value Reference Range Interpretation Comments Creatinine Lvl (test code = Creatinine 1.65 0.50-1.40 Lvl) [facility]2018-07-21 05:38:00 Test Item Value Reference Range Interpretation Comments BUN (test code = BUN) 51 7-22 [facility]2018-07-21 05:38:00 Test Item Value Reference Range Interpretation Comments Chloride Lvl (test code = Chloride Lvl) 100 95-109 [facility]2018-07-21 05:38:00 Test Item Value Reference Range Interpretation Comments Sodium Lvl (test code = Sodium Lvl) 136 135-145 [facility]2018-07-21 05:38:00 Test Item Value Reference Range Interpretation Comments CO2 (test code = CO2) 24-32 [facility]2018-07-21 05:38:00 Test Item Value Reference Range Interpretation Comments Potassium Lvl (test code = Potassium 5.2 3.5-5.1 Lvl) [facility]2018-07-21 05:38:00 Test Item Value Reference Range Interpretation Comments eGFR (test code = eGFR) 40 [facility]2018-07-21 05:38:00 Test Item Value Reference Range Interpretation Comments AGAP (test code = AGAP) 14.2 10.0-20.0 [facility]2018-07-21 05:38:00 Test Item Value Reference Range Interpretation Comments Calcium Lvl (test code = Calcium Lvl) 8.4 8.5-10.5 [facility]2018-07-21 05:38:00 Test Item Value Reference Range Interpretation Comments Glucose Lvl (test code = Glucose Lvl) 125 70-99 [facility]2018-07-21 05:38:00 Test Item Value Reference Range Interpretation Comments Creatinine Lvl (test code = Creatinine 1.65 0.50-1.40 Lvl) [facility]2018-07-21 05:38:00 Test Item Value Reference Range Interpretation Comments BUN (test code = BUN) 51 7-22 [facility]2018-07-21 05:38:00 Test Item Value Reference Range Interpretation Comments Chloride Lvl (test code = Chloride Lvl) 100 95-109 [facility]2018-07-21 05:38:00 Test Item Value Reference Range Interpretation Comments Sodium Lvl (test code = Sodium Lvl) 136 135-145 [facility]2018-07-21 05:38:00 Test Item Value Reference Range Interpretation Comments CO2 (test code = CO2) 27 24-32 [facility]2018-07-21 05:38:00 Test Item Value Reference Range Interpretation Comments Potassium Lvl (test code = Potassium 5.2 3.5-5.1 Lvl) [facility]2018-07-21 05:38:00 Test Item Value Reference Range Interpretation Comments eGFR (test code = eGFR) 40 [facility]2018-07-21 05:38:00 Test Item Value Reference Range Interpretation Comments AGAP (test code = AGAP) 14.2 10.0-20.0 [facility]2018-07-21 05:38:00 Test Item Value Reference Range Interpretation Comments Calcium Lvl (test code = Calcium Lvl) 8.4 8.5-10.5 [facility]2018-07-21 05:38:00 Test Item Value Reference Range Interpretation Comments Glucose Lvl (test code = Glucose Lvl) 125 70-99 [facility]2018-07-21 05:38:00 Test Item Value Reference Range Interpretation Comments Creatinine Lvl (test code = Creatinine 1.65 0.50-1.40 Lvl) [facility]2018-07-21 05:38:00 Test Item Value Reference Range Interpretation Comments BUN (test code = BUN) 51 7-22 [facility]2018-07-21 05:38:00 Test Item Value Reference Range Interpretation Comments Chloride Lvl (test code = Chloride Lvl) 100 95-109 [facility]2018-07-21 05:38:00 Test Item Value Reference Range Interpretation Comments Sodium Lvl (test code = Sodium Lvl) 136 135-145 [facility]2018-07-21 05:38:00 Test Item Value Reference Range Interpretation Comments CO2 (test code = CO2) 27 24-32 [facility]2018-07-21 05:38:00 Test Item Value Reference Range Interpretation Comments Potassium Lvl (test code = Potassium 5.2 3.5-5.1 Lvl) [facility]2018-07-21 05:38:00 Test Item Value Reference Range Interpretation Comments eGFR (test code = eGFR) 40 [facility]2018-07-21 05:38:00 Test Item Value Reference Range Interpretation Comments AGAP (test code = AGAP) 14.2 10.0-20.0 [facility]2018-07-21 05:38:00 Test Item Value Reference Range Interpretation Comments Calcium Lvl (test code = Calcium Lvl) 8.4 8.5-10.5 [facility]2018-07-21 05:38:00 Test Item Value Reference Range Interpretation Comments Glucose Lvl (test code = Glucose Lvl) 125 70-99 [facility]2018-07-21 05:38:00 Test Item Value Reference Range Interpretation Comments Creatinine Lvl (test code = Creatinine 1.65 0.50-1.40 Lvl) [facility]2018-07-21 05:38:00 Test Item Value Reference Range Interpretation Comments BUN (test code = BUN) 51 7-22 [facility]2018-07-21 05:38:00 Test Item Value Reference Range Interpretation Comments Chloride Lvl (test code = Chloride Lvl) 100 95-109 [facility]2018-07-21 05:38:00 Test Item Value Reference Range Interpretation Comments Sodium Lvl (test code = Sodium Lvl) 136 135-145 [facility]2018-07-21 05:38:00 Test Item Value Reference Range Interpretation Comments CO2 (test code = CO2) 27 24-32 [facility]2018-07-21 05:38:00 Test Item Value Reference Range Interpretation Comments Potassium Lvl (test code = Potassium 5.2 3.5-5.1 Lvl) [facility]2018-07-21 05:38:00 Test Item Value Reference Range Interpretation Comments eGFR (test code = eGFR) 40 [facility]2018-07-21 05:38:00 Test Item Value Reference Range Interpretation Comments AGAP (test code = AGAP) 14.2 10.0-20.0 [facility]2018-07-21 05:38:00 Test Item Value Reference Range Interpretation Comments Calcium Lvl (test code = Calcium Lvl) 8.4 8.5-10.5 [facility]2018-07-21 05:38:00 Test Item Value Reference Range Interpretation Comments Glucose Lvl (test code = Glucose Lvl) 125 70-99 [facility]2018-07-21 05:38:00 Test Item Value Reference Range Interpretation Comments Creatinine Lvl (test code = Creatinine 1.65 0.50-1.40 Lvl) [facility]2018-07-21 05:38:00 Test Item Value Reference Range Interpretation Comments BUN (test code = BUN) 51 7-22 [facility]2018-07-21 05:38:00 Test Item Value Reference Range Interpretation Comments Chloride Lvl (test code = Chloride Lvl) 100 95-109 [facility]2018-07-21 05:38:00 Test Item Value Reference Range Interpretation Comments Sodium Lvl (test code = Sodium Lvl) 136 135-145 [facility]2018-07-21 05:38:00 Test Item Value Reference Range Interpretation Comments CO2 (test code = CO2) 24-32 [facility]2018-07-21 05:38:00 Test Item Value Reference Range Interpretation Comments Potassium Lvl (test code = Potassium 5.2 3.5-5.1 Lvl) [facility]2018-07-21 05:38:00 Test Item Value Reference Range Interpretation Comments eGFR (test code = eGFR) 40 [facility]2018-07-21 05:38:00 Test Item Value Reference Range Interpretation Comments AGAP (test code = AGAP) 14.2 10.0-20.0 [facility]2018-07-21 05:38:00 Test Item Value Reference Range Interpretation Comments Calcium Lvl (test code = Calcium Lvl) 8.4 8.5-10.5 [facility]2018-07-21 05:38:00 Test Item Value Reference Range Interpretation Comments Glucose Lvl (test code = Glucose Lvl) 125 70-99 [facility]2018-07-21 05:38:00 Test Item Value Reference Range Interpretation Comments Creatinine Lvl (test code = Creatinine 1.65 0.50-1.40 Lvl) [facility]2018-07-21 05:38:00 Test Item Value Reference Range Interpretation Comments BUN (test code = BUN) 51 7-22 [facility]2018-07-21 05:38:00 Test Item Value Reference Range Interpretation Comments Chloride Lvl (test code = Chloride Lvl) 100 95-109 [facility]2018-07-21 05:38:00 Test Item Value Reference Range Interpretation Comments Sodium Lvl (test code = Sodium Lvl) 136 135-145 [facility]2018-07-21 05:38:00 Test Item Value Reference Range Interpretation Comments CO2 (test code = CO2) -32 [facility]2018-07-21 05:38:00 Test Item Value Reference Range Interpretation Comments Potassium Lvl (test code = Potassium 5.2 3.5-5.1 Lvl) [facility]2018-07-21 05:38:00 Test Item Value Reference Range Interpretation Comments eGFR (test code = eGFR) 40 [facility]2018-07-21 05:38:00 Test Item Value Reference Range Interpretation Comments AGAP (test code = AGAP) 14.2 10.0-20.0 [facility]2018-07-21 05:38:00 Test Item Value Reference Range Interpretation Comments Calcium Lvl (test code = Calcium Lvl) 8.4 8.5-10.5 [facility]2018-07-21 05:38:00 Test Item Value Reference Range Interpretation Comments Glucose Lvl (test code = Glucose Lvl) 125 70-99 [facility]2018-07-21 05:38:00 Test Item Value Reference Range Interpretation Comments Creatinine Lvl (test code = Creatinine 1.65 0.50-1.40 Lvl) [facility]2018-07-21 05:38:00 Test Item Value Reference Range Interpretation Comments BUN (test code = BUN) 51 7-22 [facility]2018-07-21 05:38:00 Test Item Value Reference Range Interpretation Comments Chloride Lvl (test code = Chloride Lvl) 100 95-109 [facility]2018-07-21 05:38:00 Test Item Value Reference Range Interpretation Comments Sodium Lvl (test code = Sodium Lvl) 136 135-145 [facility]2018-07-21 05:38:00 Test Item Value Reference Range Interpretation Comments CO2 (test code = CO2) 27 24-32 [facility]2018-07-21 05:38:00 Test Item Value Reference Range Interpretation Comments Potassium Lvl (test code = Potassium 5.2 3.5-5.1 Lvl) [facility]2018-07-21 05:38:00 Test Item Value Reference Range Interpretation Comments eGFR (test code = eGFR) 40 [facility]2018-07-21 05:38:00 Test Item Value Reference Range Interpretation Comments AGAP (test code = AGAP) 14.2 10.0-20.0 [facility]2018-07-21 05:38:00 Test Item Value Reference Range Interpretation Comments Calcium Lvl (test code = Calcium Lvl) 8.4 8.5-10.5 [facility]2018-07-21 05:38:00 Test Item Value Reference Range Interpretation Comments Glucose Lvl (test code = Glucose Lvl) 125 70-99 [facility]2018-07-21 05:38:00 Test Item Value Reference Range Interpretation Comments Creatinine Lvl (test code = Creatinine 1.65 0.50-1.40 Lvl) [facility]2018-07-21 05:38:00 Test Item Value Reference Range Interpretation Comments BUN (test code = BUN) 51 7-22 [facility]2018-07-21 05:38:00 Test Item Value Reference Range Interpretation Comments Chloride Lvl (test code = Chloride Lvl) 100 95-109 [facility]2018-07-21 05:38:00 Test Item Value Reference Range Interpretation Comments Sodium Lvl (test code = Sodium Lvl) 136 135-145 [facility]2018-07-21 05:38:00 Test Item Value Reference Range Interpretation Comments CO2 (test code = CO2) - [facility]2018-07-21 05:38:00 Test Item Value Reference Range Interpretation Comments Potassium Lvl (test code = Potassium 5.2 3.5-5.1 Lvl) [facility]2018-07-21 05:38:00 Test Item Value Reference Range Interpretation Comments eGFR (test code = eGFR) 40 [facility]2018-07-21 05:38:00 Test Item Value Reference Range Interpretation Comments AGAP (test code = AGAP) 14.2 10.0-20.0 [facility]2018-07-21 05:38:00 Test Item Value Reference Range Interpretation Comments Calcium Lvl (test code = Calcium Lvl) 8.4 8.5-10.5 [facility]2018-07-20 05:13:00 Test Item Value Reference Range Interpretation Comments eGFR (test code = eGFR) 37 [facility]2018-07-20 05:13:00 Test Item Value Reference Range Interpretation Comments Potassium Lvl (test code = Potassium 5.6 3.5-5.1 Lvl) [facility]2018-07-20 05:13:00 Test Item Value Reference Range Interpretation Comments Chloride Lvl (test code = Chloride Lvl) 99 95-109 [facility]2018-07-20 05:13:00 Test Item Value Reference Range Interpretation Comments CO2 (test code = CO2) -32 [facility]2018-07-20 05:13:00 Test Item Value Reference Range Interpretation Comments Calcium Lvl (test code = Calcium Lvl) 8.9 8.5-10.5 [facility]2018-07-20 05:13:00 Test Item Value Reference Range Interpretation Comments AGAP (test code = AGAP) 14.6 10.0-20.0 [facility]2018-07-20 05:13:00 Test Item Value Reference Range Interpretation Comments BUN (test code = BUN) 56 7- [facility]2018-07-20 05:13:00 Test Item Value Reference Range Interpretation Comments Glucose Lvl (test code = Glucose Lvl) 153 70-99 [facility]2018-07-20 05:13:00 Test Item Value Reference Range Interpretation Comments Sodium Lvl (test code = Sodium Lvl) 137 135-145 [facility]2018-07-20 05:13:00 Test Item Value Reference Range Interpretation Comments Creatinine Lvl (test code = Creatinine 1.77 0.50-1.40 Lvl) [facility]2018-07-20 05:13:00 Test Item Value Reference Range Interpretation Comments eGFR (test code = eGFR) 37 [facility]2018-07-20 05:13:00 Test Item Value Reference Range Interpretation Comments Potassium Lvl (test code = Potassium 5.6 3.5-5.1 Lvl) [facility]2018-07-20 05:13:00 Test Item Value Reference Range Interpretation Comments Chloride Lvl (test code = Chloride Lvl) 99 95-109 [facility]2018-07-20 05:13:00 Test Item Value Reference Range Interpretation Comments CO2 (test code = CO2) 29 24-32 [facility]2018-07-20 05:13:00 Test Item Value Reference Range Interpretation Comments Calcium Lvl (test code = Calcium Lvl) 8.9 8.5-10.5 [facility]2018-07-20 05:13:00 Test Item Value Reference Range Interpretation Comments AGAP (test code = AGAP) 14.6 10.0-20.0 [facility]2018-07-20 05:13:00 Test Item Value Reference Range Interpretation Comments BUN (test code = BUN) 56 7-22 [facility]2018-07-20 05:13:00 Test Item Value Reference Range Interpretation Comments Glucose Lvl (test code = Glucose Lvl) 153 70-99 [facility]2018-07-20 05:13:00 Test Item Value Reference Range Interpretation Comments Sodium Lvl (test code = Sodium Lvl) 137 135-145 [facility]2018-07-20 05:13:00 Test Item Value Reference Range Interpretation Comments Creatinine Lvl (test code = Creatinine 1.77 0.50-1.40 Lvl) [facility]2018-07-20 05:13:00 Test Item Value Reference Range Interpretation Comments eGFR (test code = eGFR) 37 [facility]2018-07-20 05:13:00 Test Item Value Reference Range Interpretation Comments Potassium Lvl (test code = Potassium 5.6 3.5-5.1 Lvl) [facility]2018-07-20 05:13:00 Test Item Value Reference Range Interpretation Comments Chloride Lvl (test code = Chloride Lvl) 99 95-109 [facility]2018-07-20 05:13:00 Test Item Value Reference Range Interpretation Comments CO2 (test code = CO2) 29 24-32 [facility]2018-07-20 05:13:00 Test Item Value Reference Range Interpretation Comments Calcium Lvl (test code = Calcium Lvl) 8.9 8.5-10.5 [facility]2018-07-20 05:13:00 Test Item Value Reference Range Interpretation Comments AGAP (test code = AGAP) 14.6 10.0-20.0 [facility]2018-07-20 05:13:00 Test Item Value Reference Range Interpretation Comments BUN (test code = BUN) 56 7-22 [facility]2018-07-20 05:13:00 Test Item Value Reference Range Interpretation Comments Glucose Lvl (test code = Glucose Lvl) 153 70-99 [facility]2018-07-20 05:13:00 Test Item Value Reference Range Interpretation Comments Sodium Lvl (test code = Sodium Lvl) 137 135-145 [facility]2018-07-20 05:13:00 Test Item Value Reference Range Interpretation Comments Creatinine Lvl (test code = Creatinine 1.77 0.50-1.40 Lvl) [facility]2018-07-20 05:13:00 Test Item Value Reference Range Interpretation Comments eGFR (test code = eGFR) 37 [facility]2018-07-20 05:13:00 Test Item Value Reference Range Interpretation Comments Potassium Lvl (test code = Potassium 5.6 3.5-5.1 Lvl) [facility]2018-07-20 05:13:00 Test Item Value Reference Range Interpretation Comments Chloride Lvl (test code = Chloride Lvl) 99 95-109 [facility]2018-07-20 05:13:00 Test Item Value Reference Range Interpretation Comments CO2 (test code = CO2) 29 24-32 [facility]2018-07-20 05:13:00 Test Item Value Reference Range Interpretation Comments Calcium Lvl (test code = Calcium Lvl) 8.9 8.5-10.5 [facility]2018-07-20 05:13:00 Test Item Value Reference Range Interpretation Comments AGAP (test code = AGAP) 14.6 10.0-20.0 [facility]2018-07-20 05:13:00 Test Item Value Reference Range Interpretation Comments BUN (test code = BUN) 56 7-22 [facility]2018-07-20 05:13:00 Test Item Value Reference Range Interpretation Comments Glucose Lvl (test code = Glucose Lvl) 153 70-99 [facility]2018-07-20 05:13:00 Test Item Value Reference Range Interpretation Comments Sodium Lvl (test code = Sodium Lvl) 137 135-145 [facility]2018-07-20 05:13:00 Test Item Value Reference Range Interpretation Comments Creatinine Lvl (test code = Creatinine 1.77 0.50-1.40 Lvl) [facility]2018-07-20 05:13:00 Test Item Value Reference Range Interpretation Comments eGFR (test code = eGFR) 37 [facility]2018-07-20 05:13:00 Test Item Value Reference Range Interpretation Comments Potassium Lvl (test code = Potassium 5.6 3.5-5.1 Lvl) [facility]2018-07-20 05:13:00 Test Item Value Reference Range Interpretation Comments Chloride Lvl (test code = Chloride Lvl) 99 95-109 [facility]2018-07-20 05:13:00 Test Item Value Reference Range Interpretation Comments CO2 (test code = CO2) 29 24-32 [facility]2018-07-20 05:13:00 Test Item Value Reference Range Interpretation Comments Calcium Lvl (test code = Calcium Lvl) 8.9 8.5-10.5 [facility]2018-07-20 05:13:00 Test Item Value Reference Range Interpretation Comments AGAP (test code = AGAP) 14.6 10.0-20.0 [facility]2018-07-20 05:13:00 Test Item Value Reference Range Interpretation Comments BUN (test code = BUN) 56 7-22 [facility]2018-07-20 05:13:00 Test Item Value Reference Range Interpretation Comments Glucose Lvl (test code = Glucose Lvl) 153 70-99 [facility]2018-07-20 05:13:00 Test Item Value Reference Range Interpretation Comments Sodium Lvl (test code = Sodium Lvl) 137 135-145 [facility]2018-07-20 05:13:00 Test Item Value Reference Range Interpretation Comments Creatinine Lvl (test code = Creatinine 1.77 0.50-1.40 Lvl) [facility]2018-07-20 05:13:00 Test Item Value Reference Range Interpretation Comments eGFR (test code = eGFR) 37 [facility]2018-07-20 05:13:00 Test Item Value Reference Range Interpretation Comments Potassium Lvl (test code = Potassium 5.6 3.5-5.1 Lvl) [facility]2018-07-20 05:13:00 Test Item Value Reference Range Interpretation Comments Chloride Lvl (test code = Chloride Lvl) 99 95-109 [facility]2018-07-20 05:13:00 Test Item Value Reference Range Interpretation Comments CO2 (test code = CO2) 29 24-32 [facility]2018-07-20 05:13:00 Test Item Value Reference Range Interpretation Comments Calcium Lvl (test code = Calcium Lvl) 8.9 8.5-10.5 [facility]2018-07-20 05:13:00 Test Item Value Reference Range Interpretation Comments AGAP (test code = AGAP) 14.6 10.0-20.0 [facility]2018-07-20 05:13:00 Test Item Value Reference Range Interpretation Comments BUN (test code = BUN) 56 7- [facility]2018-07-20 05:13:00 Test Item Value Reference Range Interpretation Comments Glucose Lvl (test code = Glucose Lvl) 153 70-99 [facility]2018-07-20 05:13:00 Test Item Value Reference Range Interpretation Comments Sodium Lvl (test code = Sodium Lvl) 137 135-145 [facility]2018-07-20 05:13:00 Test Item Value Reference Range Interpretation Comments Creatinine Lvl (test code = Creatinine 1.77 0.50-1.40 Lvl) [facility]2018-07-20 05:13:00 Test Item Value Reference Range Interpretation Comments eGFR (test code = eGFR) 37 [facility]2018-07-20 05:13:00 Test Item Value Reference Range Interpretation Comments Potassium Lvl (test code = Potassium 5.6 3.5-5.1 Lvl) [facility]2018-07-20 05:13:00 Test Item Value Reference Range Interpretation Comments Chloride Lvl (test code = Chloride Lvl) 99 95-109 [facility]2018-07-20 05:13:00 Test Item Value Reference Range Interpretation Comments CO2 (test code = CO2) 29 24-32 [facility]2018-07-20 05:13:00 Test Item Value Reference Range Interpretation Comments Calcium Lvl (test code = Calcium Lvl) 8.9 8.5-10.5 [facility]2018-07-20 05:13:00 Test Item Value Reference Range Interpretation Comments AGAP (test code = AGAP) 14.6 10.0-20.0 [facility]2018-07-20 05:13:00 Test Item Value Reference Range Interpretation Comments BUN (test code = BUN) 56 7-22 [facility]2018-07-20 05:13:00 Test Item Value Reference Range Interpretation Comments Glucose Lvl (test code = Glucose Lvl) 153 70-99 [facility]2018-07-20 05:13:00 Test Item Value Reference Range Interpretation Comments Sodium Lvl (test code = Sodium Lvl) 137 135-145 [facility]2018-07-20 05:13:00 Test Item Value Reference Range Interpretation Comments Creatinine Lvl (test code = Creatinine 1.77 0.50-1.40 Lvl) [facility]2018-07-20 05:13:00 Test Item Value Reference Range Interpretation Comments eGFR (test code = eGFR) 37 [facility]2018-07-20 05:13:00 Test Item Value Reference Range Interpretation Comments Potassium Lvl (test code = Potassium 5.6 3.5-5.1 Lvl) [facility]2018-07-20 05:13:00 Test Item Value Reference Range Interpretation Comments Chloride Lvl (test code = Chloride Lvl) 99 95-109 [facility]2018-07-20 05:13:00 Test Item Value Reference Range Interpretation Comments CO2 (test code = CO2) 29 24-32 [facility]2018-07-20 05:13:00 Test Item Value Reference Range Interpretation Comments Calcium Lvl (test code = Calcium Lvl) 8.9 8.5-10.5 [facility]2018-07-20 05:13:00 Test Item Value Reference Range Interpretation Comments AGAP (test code = AGAP) 14.6 10.0-20.0 [facility]2018-07-20 05:13:00 Test Item Value Reference Range Interpretation Comments BUN (test code = BUN) 56 7-22 [facility]2018-07-20 05:13:00 Test Item Value Reference Range Interpretation Comments Glucose Lvl (test code = Glucose Lvl) 153 70-99 [facility]2018-07-20 05:13:00 Test Item Value Reference Range Interpretation Comments Sodium Lvl (test code = Sodium Lvl) 137 135-145 [facility]2018-07-20 05:13:00 Test Item Value Reference Range Interpretation Comments Creatinine Lvl (test code = Creatinine 1.77 0.50-1.40 Lvl) [facility]2018-07-20 05:13:00 Test Item Value Reference Range Interpretation Comments eGFR (test code = eGFR) 37 [facility]2018-07-20 05:13:00 Test Item Value Reference Range Interpretation Comments Potassium Lvl (test code = Potassium 5.6 3.5-5.1 Lvl) [facility]2018-07-20 05:13:00 Test Item Value Reference Range Interpretation Comments Chloride Lvl (test code = Chloride Lvl) 99 95-109 [facility]2018-07-20 05:13:00 Test Item Value Reference Range Interpretation Comments CO2 (test code = CO2) 29 24-32 [facility]2018-07-20 05:13:00 Test Item Value Reference Range Interpretation Comments Calcium Lvl (test code = Calcium Lvl) 8.9 8.5-10.5 [facility]2018-07-20 05:13:00 Test Item Value Reference Range Interpretation Comments AGAP (test code = AGAP) 14.6 10.0-20.0 [facility]2018-07-20 05:13:00 Test Item Value Reference Range Interpretation Comments BUN (test code = BUN) 56 7-22 [facility]2018-07-20 05:13:00 Test Item Value Reference Range Interpretation Comments Glucose Lvl (test code = Glucose Lvl) 153 70-99 [facility]2018-07-20 05:13:00 Test Item Value Reference Range Interpretation Comments Sodium Lvl (test code = Sodium Lvl) 137 135-145 [facility]2018-07-20 05:13:00 Test Item Value Reference Range Interpretation Comments Creatinine Lvl (test code = Creatinine 1.77 0.50-1.40 Lvl) [facility]2018-07-18 05:43:00 Test Item Value Reference Range Interpretation Comments Phosphorus (test code = Phosphorus) 4.1 2.5-4.5 [facility]2018-07-18 05:43:00 Test Item Value Reference Range Interpretation Comments Magnesium Lvl (test code = Magnesium 2.8 1.8-2.4 Lvl) [id number] 05:43:00 Test Item Value Reference Range Interpretation Comments Segs (test code = Segs) 87.0 45.0-75.0 [facility]IgpjimeTMFFYFAZXW1752-78-44 05:43:00 Test Item Value Reference Range Interpretation Comments Neutrophils # (test code = Neutrophils 6.6 1.5-8.1 #) [facility] CenterYvofctaUPWZCYZUZH9471-17-24 05:43:00 Test Item Value Reference Range Interpretation Comments Lymphocytes (test code = Lymphocytes) 7.0 20.0-40.0 [facility] CenterHzdavurLPSSTMSJDO7800-78-25 05:43:00 Test Item Value Reference Range Interpretation Comments Monocytes (test code = Monocytes) 6.0 2.0-12.0 [facility] [id number] 05:43:00 Test Item Value Reference Range Interpretation Comments Lymphocytes # (test code = Lymphocytes 0.6 1.0-5.5 #) [facility] [id number] 05:43:00 Test Item Value Reference Range Interpretation Comments Monocytes # (test code 0.4 See_Comment [Aut omated message] The = Monocytes #) system which generated this result tra nsmitted reference range : <=0.8. The reference r renu was not used to int erpret this result as normal/abnormal . [facility] CenterUhofguyCQVOIFKFYQ0196-11-09 05:43:00 Test Item Value Reference Range Interpretation Comments MCH (test code = MCH) 32.6 pg 27.0-31.0 [facility] [id number] 05:43:00 Test Item Value Reference Range Interpretation Comments MCHC (test code = MCHC) 33.9 32.0-36.0 [facility] CenterEotrwjeHEAPKNXVRN2543-74-03 05:43:00 Test Item Value Reference Range Interpretation Comments RDW (test code = RDW) 15.3 11.5-14.5 [facility] CenterZoupargTNVZMGAMQL7188-62-18 05:43:00 Test Item Value Reference Range Interpretation Comments Platelet (test code = Platelet) 136 133-450 [facility] [id number] 05:43:00 Test Item Value Reference Range Interpretation Comments MPV (test code = MPV) 9.6 7.4-10.4 [facility] C[id number] 05:43:00 Test Item Value Reference Range Interpretation Comments WBC X 10x3 (test code = WBC X 10x3) 7.6 3.7-10.4 [facility] CenterVakfmyxWQFQQUUEDE5813-28-48 05:43:00 Test Item Value Reference Range Interpretation Comments Hct (test code = Hct) 31.0 42.0-54.0 [facility] CenterKsnaqncSJJCWHJVHM0432-32-36 05:43:00 Test Item Value Reference Range Interpretation Comments MCV (test code = MCV) 96.1 80.0-94.0 [facility] CenterNxalwcpXZQFTDLCXR1449-76-71 05:43:00 Test Item Value Reference Range Interpretation Comments RBC X 10x6 (test code = RBC X 10x6) 3.22 4.70-6.10 [facility] [id number] 05:43:00 Test Item Value Reference Range Interpretation Comments Hgb (test code = Hgb) 10.5 14.0-18.0 [facility]2018-07-18 05:43:00 Test Item Value Reference Range Interpretation Comments Phosphorus (test code = Phosphorus) 4.1 2.5-4.5 [facility]2018-07-18 05:43:00 Test Item Value Reference Range Interpretation Comments Magnesium Lvl (test code = Magnesium 2.8 1.8-2.4 Lvl) [facility] CenterMljuvruRAKSCHDMVR6913-40-19 05:43:00 Test Item Value Reference Range Interpretation Comments Segs (test code = Segs) 87.0 45.0-75.0 [facility] CenterDzywqayIFVBDCLQTW8559-04-07 05:43:00 Test Item Value Reference Range Interpretation Comments Neutrophils # (test code = Neutrophils 6.6 1.5-8.1 #) [facility] CenterTeqjfikTOYHRTBTBZ2336-82-45 05:43:00 Test Item Value Reference Range Interpretation Comments Lymphocytes (test code = Lymphocytes) 7.0 20.0-40.0 [facility] CenterSibiewsVNKNYELKKE3826-79-04 05:43:00 Test Item Value Reference Range Interpretation Comments Monocytes (test code = Monocytes) 6.0 2.0-12.0 [facility] CenterHrbwxmaSZLEYFTINI4282-34-87 05:43:00 Test Item Value Reference Range Interpretation Comments Lymphocytes # (test code = Lymphocytes 0.6 1.0-5.5 #) [facility] CenterTcyrcukNHEROQDZOH3949-79-25 05:43:00 Test Item Value Reference Range Interpretation Comments Monocytes # (test code 0.4 See_Comment [Aut omated message] The = Monocytes #) system which generated this result tra nsmitted reference range : <=0.8. The reference r renu was not used to int erpret this result as normal/abnormal . [facility] CenterFupcusiPCEUHYWLKD2070-67-81 05:43:00 Test Item Value Reference Range Interpretation Comments MCH (test code = MCH) 32.6 pg 27.0-31.0 [facility] CenterQdyefjlHVWAYYIPMC3677-34-31 05:43:00 Test Item Value Reference Range Interpretation Comments MCHC (test code = MCHC) 33.9 32.0-36.0 [facility] CenterOpspntjYNURCKMIPQ1064-70-39 05:43:00 Test Item Value Reference Range Interpretation Comments RDW (test code = RDW) 15.3 11.5-14.5 [facility] CenterEzfjanjZNOQXTEBNF0316-87-98 05:43:00 Test Item Value Reference Range Interpretation Comments Platelet (test code = Platelet) 136 133-450 [facility] CenterFxsmekjJEJTCRFPTJ6892-03-96 05:43:00 Test Item Value Reference Range Interpretation Comments MPV (test code = MPV) 9.6 7.4-10.4 [facility] CenterZelqwcmXAZZXEBVNW2835-77-66 05:43:00 Test Item Value Reference Range Interpretation Comments WBC X 10x3 (test code = WBC X 10x3) 7.6 3.7-10.4 [facility] CenterVqqkkooEWNFLWIJNL1241-73-55 05:43:00 Test Item Value Reference Range Interpretation Comments Hct (test code = Hct) 31.0 42.0-54.0 [facility] CenterDfsopzjECWRWHVDUT1103-83-55 05:43:00 Test Item Value Reference Range Interpretation Comments MCV (test code = MCV) 96.1 80.0-94.0 [facility] CenterCbolagyNWHRUTSISD6357-68-99 05:43:00 Test Item Value Reference Range Interpretation Comments RBC X 10x6 (test code = RBC X 10x6) 3.22 4.70-6.10 [facility] CenterDwnfouuLREWHOITHK4988-81-48 05:43:00 Test Item Value Reference Range Interpretation Comments Hgb (test code = Hgb) 10.5 14.0-18.0 [facility]2018-07-18 05:43:00 Test Item Value Reference Range Interpretation Comments Phosphorus (test code = Phosphorus) 4.1 2.5-4.5 [facility]2018-07-18 05:43:00 Test Item Value Reference Range Interpretation Comments Magnesium Lvl (test code = Magnesium 2.8 1.8-2.4 Lvl) [facility] CenterYgbgtyzDENEXFSROR9228-47-49 05:43:00 Test Item Value Reference Range Interpretation Comments Segs (test code = Segs) 87.0 45.0-75.0 [facility] CenterHktgwnxRXZNVWUGJD9782-09-27 05:43:00 Test Item Value Reference Range Interpretation Comments Neutrophils # (test code = Neutrophils 6.6 1.5-8.1 #) [facility] CenterJhedmfdBYXCLPMOER5765-89-84 05:43:00 Test Item Value Reference Range Interpretation Comments Lymphocytes (test code = Lymphocytes) 7.0 20.0-40.0 [facility] CenterKsxfmakSZSJDYMKXJ7723-37-26 05:43:00 Test Item Value Reference Range Interpretation Comments Monocytes (test code = Monocytes) 6.0 2.0-12.0 [facility] CenterEklpuinSBMLRKKXJU8873-70-77 05:43:00 Test Item Value Reference Range Interpretation Comments Lymphocytes # (test code = Lymphocytes 0.6 1.0-5.5 #) [facility] CenterWyzfwsiSFAUQHYQDR1854-81-14 05:43:00 Test Item Value Reference Range Interpretation Comments Monocytes # (test code 0.4 See_Comment [Aut omated message] The = Monocytes #) system which generated this result tra nsmitted reference range : <=0.8. The reference r renu was not used to int erpret this result as normal/abnormal . [facility] CenterHmsnjvhIQQGBVZZHC5143-65-44 05:43:00 Test Item Value Reference Range Interpretation Comments MCH (test code = MCH) 32.6 pg 27.0-31.0 [facility] CenterOkrrjgsIWGNVVHXQO2962-23-59 05:43:00 Test Item Value Reference Range Interpretation Comments MCHC (test code = MCHC) 33.9 32.0-36.0 [facility] CenterUqmgtefBQUWGAVNXS9083-98-04 05:43:00 Test Item Value Reference Range Interpretation Comments RDW (test code = RDW) 15.3 11.5-14.5 [facility] CenterJuomqibUTPHNRCGMA8190-36-78 05:43:00 Test Item Value Reference Range Interpretation Comments Platelet (test code = Platelet) 136 133-450 [facility] CenterWjxuesqIXRCGNAANM7164-72-36 05:43:00 Test Item Value Reference Range Interpretation Comments MPV (test code = MPV) 9.6 7.4-10.4 [facility] CenterAegqzpeZQYQMMUMRK6022-68-00 05:43:00 Test Item Value Reference Range Interpretation Comments WBC X 10x3 (test code = WBC X 10x3) 7.6 3.7-10.4 [facility] CenterOkveztwFNWVOGOWHX8400-31-88 05:43:00 Test Item Value Reference Range Interpretation Comments Hct (test code = Hct) 31.0 42.0-54.0 [facility] CenterKbzozruYICXRMPXVO5276-22-47 05:43:00 Test Item Value Reference Range Interpretation Comments MCV (test code = MCV) 96.1 80.0-94.0 [facility] CenterGvokuowTUPGFSQWRM0234-23-96 05:43:00 Test Item Value Reference Range Interpretation Comments RBC X 10x6 (test code = RBC X 10x6) 3.22 4.70-6.10 [facility] CenterFvwfbamGCBHFASAJT9465-24-98 05:43:00 Test Item Value Reference Range Interpretation Comments Hgb (test code = Hgb) 10.5 14.0-18.0 [facility]2018-07-18 05:43:00 Test Item Value Reference Range Interpretation Comments Phosphorus (test code = Phosphorus) 4.1 2.5-4.5 [facility]2018-07-18 05:43:00 Test Item Value Reference Range Interpretation Comments Magnesium Lvl (test code = Magnesium 2.8 1.8-2.4 Lvl) [facility] CenterEbfnwcxQIMAYXXSAR8316-44-18 05:43:00 Test Item Value Reference Range Interpretation Comments Segs (test code = Segs) 87.0 45.0-75.0 [facility] CenterBjaemjfPAZMKZPBHS8104-12-56 05:43:00 Test Item Value Reference Range Interpretation Comments Neutrophils # (test code = Neutrophils 6.6 1.5-8.1 #) [facility] CenterOrgvxvfSGHCPQUVNI9327-13-04 05:43:00 Test Item Value Reference Range Interpretation Comments Lymphocytes (test code = Lymphocytes) 7.0 20.0-40.0 [facility] CenterPpgvtsuJRTBUZYJSZ6599-59-00 05:43:00 Test Item Value Reference Range Interpretation Comments Monocytes (test code = Monocytes) 6.0 2.0-12.0 [facility] CenterZynubjcTGVSAABOWG1256-23-14 05:43:00 Test Item Value Reference Range Interpretation Comments Lymphocytes # (test code = Lymphocytes 0.6 1.0-5.5 #) [facility] CenterDupmchxYFXJOZXVPU8086-13-40 05:43:00 Test Item Value Reference Range Interpretation Comments Monocytes # (test code 0.4 See_Comment [Aut omated message] The = Monocytes #) system which generated this result tra nsmitted reference range : <=0.8. The reference r renu was not used to int erpret this result as normal/abnormal . [facility] CenterUnnmyvjWXDJMOKVJB7958-80-90 05:43:00 Test Item Value Reference Range Interpretation Comments MCH (test code = MCH) 32.6 pg 27.0-31.0 [facility] CenterPauigjhVKMKMMPBZX2236-09-13 05:43:00 Test Item Value Reference Range Interpretation Comments MCHC (test code = MCHC) 33.9 32.0-36.0 [facility] CenterNblesdhZNHOWUKDRK0701-58-94 05:43:00 Test Item Value Reference Range Interpretation Comments RDW (test code = RDW) 15.3 11.5-14.5 [facility] CenterAzygiikVMQZQGYMHK3817-06-18 05:43:00 Test Item Value Reference Range Interpretation Comments Platelet (test code = Platelet) 136 133-450 [facility] CenterNwtbonxEWVVZKIHBD4042-50-67 05:43:00 Test Item Value Reference Range Interpretation Comments MPV (test code = MPV) 9.6 7.4-10.4 [facility] CenterVqiolopFRNIQBESUI1423-56-01 05:43:00 Test Item Value Reference Range Interpretation Comments WBC X 10x3 (test code = WBC X 10x3) 7.6 3.7-10.4 [facility] CenterGvmvmhhDVBGQFVCXC4251-88-99 05:43:00 Test Item Value Reference Range Interpretation Comments Hct (test code = Hct) 31.0 42.0-54.0 [facility] CenterZuhqkvkSNEFHNHTIW9140-72-48 05:43:00 Test Item Value Reference Range Interpretation Comments MCV (test code = MCV) 96.1 80.0-94.0 [facility] CenterBefbidjNKLVFUMLNF5083-80-98 05:43:00 Test Item Value Reference Range Interpretation Comments RBC X 10x6 (test code = RBC X 10x6) 3.22 4.70-6.10 [facility] CenterTlccafhFNNVBDMUVX5317-55-04 05:43:00 Test Item Value Reference Range Interpretation Comments Hgb (test code = Hgb) 10.5 14.0-18.0 [facility]2018-07-18 05:43:00 Test Item Value Reference Range Interpretation Comments Phosphorus (test code = Phosphorus) 4.1 2.5-4.5 [facility]2018-07-18 05:43:00 Test Item Value Reference Range Interpretation Comments Magnesium Lvl (test code = Magnesium 2.8 1.8-2.4 Lvl) [facility] CenterDmwawmhBLQTSBFZPN7656-23-44 05:43:00 Test Item Value Reference Range Interpretation Comments Segs (test code = Segs) 87.0 45.0-75.0 [facility] CenterHflivzjFVSKBOIWVF2092-41-42 05:43:00 Test Item Value Reference Range Interpretation Comments Neutrophils # (test code = Neutrophils 6.6 1.5-8.1 #) [facility] CenterEfiynhkHROMTWCTNY0149-29-87 05:43:00 Test Item Value Reference Range Interpretation Comments Lymphocytes (test code = Lymphocytes) 7.0 20.0-40.0 [facility] CenterSzqavblSFGFINBJTN4868-16-26 05:43:00 Test Item Value Reference Range Interpretation Comments Monocytes (test code = Monocytes) 6.0 2.0-12.0 [facility] CenterWjsbhqwKPVLIBHDMG9088-46-04 05:43:00 Test Item Value Reference Range Interpretation Comments Lymphocytes # (test code = Lymphocytes 0.6 1.0-5.5 #) [facility] CenterItcjdpySNTSSBBWLW9894-35-19 05:43:00 Test Item Value Reference Range Interpretation Comments Monocytes # (test code 0.4 See_Comment [Aut omated message] The = Monocytes #) system which generated this result tra nsmitted reference range : <=0.8. The reference r renu was not used to int erpret this result as normal/abnormal . [facility] CenterCeedikiDPYKTHSCIQ3062-09-28 05:43:00 Test Item Value Reference Range Interpretation Comments MCH (test code = MCH) 32.6 pg 27.0-31.0 [facility] CenterOamgotcCSQTEGVVFX3910-72-98 05:43:00 Test Item Value Reference Range Interpretation Comments MCHC (test code = MCHC) 33.9 32.0-36.0 [facility] CenterVntsmikDEYOFNGIII7862-35-40 05:43:00 Test Item Value Reference Range Interpretation Comments RDW (test code = RDW) 15.3 11.5-14.5 [facility] CenterJxuzqnhERRXCAKKHH8608-21-33 05:43:00 Test Item Value Reference Range Interpretation Comments Platelet (test code = Platelet) 136 133-450 [facility] CenterRsrwcbhQPXWWAUJMI7521-26-42 05:43:00 Test Item Value Reference Range Interpretation Comments MPV (test code = MPV) 9.6 7.4-10.4 [facility] CenterJnxpspqJZBPBRCMTQ9105-79-46 05:43:00 Test Item Value Reference Range Interpretation Comments WBC X 10x3 (test code = WBC X 10x3) 7.6 3.7-10.4 [facility] CenterIapywikNLALNOXHQD1497-96-46 05:43:00 Test Item Value Reference Range Interpretation Comments Hct (test code = Hct) 31.0 42.0-54.0 [facility] CenterEraozhnPMKDLUKKBP1385-13-69 05:43:00 Test Item Value Reference Range Interpretation Comments MCV (test code = MCV) 96.1 80.0-94.0 [facility] CenterLfydazqMFGCELZZXF4752-30-27 05:43:00 Test Item Value Reference Range Interpretation Comments RBC X 10x6 (test code = RBC X 10x6) 3.22 4.70-6.10 [facility] CenterHancemkRSWOLCMFHB7884-52-50 05:43:00 Test Item Value Reference Range Interpretation Comments Hgb (test code = Hgb) 10.5 14.0-18.0 [facility] ZYBTS0693-40-26 05:43:00 Test Item Value Reference Range Interpretation Comments Phosphorus (test code = Phosphorus) 4.1 2.5-4.5 [facility] MDRAB5352-38-46 05:43:00 Test Item Value Reference Range Interpretation Comments Magnesium Lvl (test code = Magnesium 2.8 1.8-2.4 Lvl) [facility] CenterTeubrqoXPFDBFFPEM0182-35-04 05:43:00 Test Item Value Reference Range Interpretation Comments Segs (test code = Segs) 87.0 45.0-75.0 [facility] CenterLozgrgfVKWFQCATAA7808-00-01 05:43:00 Test Item Value Reference Range Interpretation Comments Neutrophils # (test code = Neutrophils 6.6 1.5-8.1 #) [facility] CenterUwtdizdSDWFDQDAXR7387-84-68 05:43:00 Test Item Value Reference Range Interpretation Comments Lymphocytes (test code = Lymphocytes) 7.0 20.0-40.0 [facility] CenterIxctrcrKCOBLUDMYZ3753-10-28 05:43:00 Test Item Value Reference Range Interpretation Comments Monocytes (test code = Monocytes) 6.0 2.0-12.0 [facility] CenterVehvmjdXJUURNDJOL2173-93-51 05:43:00 Test Item Value Reference Range Interpretation Comments Lymphocytes # (test code = Lymphocytes 0.6 1.0-5.5 #) [facility] CenterTuydvlbEOZTNWVFLD6358-81-46 05:43:00 Test Item Value Reference Range Interpretation Comments Monocytes # (test code 0.4 See_Comment [Aut omated message] The = Monocytes #) system which generated this result tra nsmitted reference range : <=0.8. The reference r renu was not used to int erpret this result as normal/abnormal . [facility] CenterGaxqnopCWFZFGVTTO6262-93-36 05:43:00 Test Item Value Reference Range Interpretation Comments MCH (test code = MCH) 32.6 pg 27.0-31.0 [facility] CenterHgrjyevCISJBQLQTE7249-18-15 05:43:00 Test Item Value Reference Range Interpretation Comments MCHC (test code = MCHC) 33.9 32.0-36.0 [facility] CenterRmarrffAQYGKFKQKY2542-96-05 05:43:00 Test Item Value Reference Range Interpretation Comments RDW (test code = RDW) 15.3 11.5-14.5 [facility] CenterPnhdbdbYJGYYRWLGT1387-23-29 05:43:00 Test Item Value Reference Range Interpretation Comments Platelet (test code = Platelet) 136 133-450 [facility] CenterDbwoyvcQNBCSVQWAW7597-27-70 05:43:00 Test Item Value Reference Range Interpretation Comments MPV (test code = MPV) 9.6 7.4-10.4 [facility] CenterAleslmdKHDSZSNDBI0236-66-22 05:43:00 Test Item Value Reference Range Interpretation Comments WBC X 10x3 (test code = WBC X 10x3) 7.6 3.7-10.4 [facility] CenterVbgjlwsKZBEPUENDK8467-57-58 05:43:00 Test Item Value Reference Range Interpretation Comments Hct (test code = Hct) 31.0 42.0-54.0 [facility] CenterJxecpgdTOSDVWXTBQ2890-56-25 05:43:00 Test Item Value Reference Range Interpretation Comments MCV (test code = MCV) 96.1 80.0-94.0 [facility] CenterTkfuinqHVHYGNRVJY0574-40-99 05:43:00 Test Item Value Reference Range Interpretation Comments RBC X 10x6 (test code = RBC X 10x6) 3.22 4.70-6.10 [facility] CenterFjdyffjRJVMCJYRRX8545-69-02 05:43:00 Test Item Value Reference Range Interpretation Comments Hgb (test code = Hgb) 10.5 14.0-18.0 [facility] OYYOI4214-78-80 05:43:00 Test Item Value Reference Range Interpretation Comments Phosphorus (test code = Phosphorus) 4.1 2.5-4.5 [facility] QNMQL3428-27-32 05:43:00 Test Item Value Reference Range Interpretation Comments Magnesium Lvl (test code = Magnesium 2.8 1.8-2.4 Lvl) [facility] CenterBsmxvvzCWWXREBTUE4415-19-08 05:43:00 Test Item Value Reference Range Interpretation Comments Segs (test code = Segs) 87.0 45.0-75.0 [facility] CenterJddyolkMNQGWIJRDU6016-35-48 05:43:00 Test Item Value Reference Range Interpretation Comments Neutrophils # (test code = Neutrophils 6.6 1.5-8.1 #) [facility] CenterSngsjdrPAEDVVQJEH2080-31-35 05:43:00 Test Item Value Reference Range Interpretation Comments Lymphocytes (test code = Lymphocytes) 7.0 20.0-40.0 [facility] CenterZasbvliTDPQWWZDIP4391-68-10 05:43:00 Test Item Value Reference Range Interpretation Comments Monocytes (test code = Monocytes) 6.0 2.0-12.0 [facility] CenterNlnqosmNYEWQBPDNR8958-30-74 05:43:00 Test Item Value Reference Range Interpretation Comments Lymphocytes # (test code = Lymphocytes 0.6 1.0-5.5 #) [facility] CenterGqrcedpVQGOOXXKOM8636-54-40 05:43:00 Test Item Value Reference Range Interpretation Comments Monocytes # (test code 0.4 See_Comment [Aut omated message] The = Monocytes #) system which generated this result tra nsmitted reference range : <=0.8. The reference r renu was not used to int erpret this result as normal/abnormal . [facility] CenterSshcgznZZPLAYCRBD9650-98-17 05:43:00 Test Item Value Reference Range Interpretation Comments MCH (test code = MCH) 32.6 pg 27.0-31.0 [facility] CenterQeoyrpaUXMPDSMSGU1897-83-96 05:43:00 Test Item Value Reference Range Interpretation Comments MCHC (test code = MCHC) 33.9 32.0-36.0 [facility] CenterPzsscxwHMNHWKKPXK7000-72-07 05:43:00 Test Item Value Reference Range Interpretation Comments RDW (test code = RDW) 15.3 11.5-14.5 [facility] CenterWwskursSAYXNWCTEG0369-80-66 05:43:00 Test Item Value Reference Range Interpretation Comments Platelet (test code = Platelet) 136 133-450 [facility] CenterFwhidcpWGIAOQOVLR4316-76-26 05:43:00 Test Item Value Reference Range Interpretation Comments MPV (test code = MPV) 9.6 7.4-10.4 [facility] CenterUmguptkLJTMYVYILI3998-70-20 05:43:00 Test Item Value Reference Range Interpretation Comments WBC X 10x3 (test code = WBC X 10x3) 7.6 3.7-10.4 [facility] CenterFrfbsieQZCKARYWKR9057-45-99 05:43:00 Test Item Value Reference Range Interpretation Comments Hct (test code = Hct) 31.0 42.0-54.0 [facility] CenterGbptsfhZDGPMBFMXG0842-03-89 05:43:00 Test Item Value Reference Range Interpretation Comments MCV (test code = MCV) 96.1 80.0-94.0 [facility] CenterPnebkblIZJBZWWUWR6236-92-46 05:43:00 Test Item Value Reference Range Interpretation Comments RBC X 10x6 (test code = RBC X 10x6) 3.22 4.70-6.10 [facility] CenterGhmdtewKLAAHPPNIH9936-01-53 05:43:00 Test Item Value Reference Range Interpretation Comments Hgb (test code = Hgb) 10.5 14.0-18.0 [facility]2018-07-18 05:43:00 Test Item Value Reference Range Interpretation Comments Phosphorus (test code = Phosphorus) 4.1 2.5-4.5 [facility]2018-07-18 05:43:00 Test Item Value Reference Range Interpretation Comments Magnesium Lvl (test code = Magnesium 2.8 1.8-2.4 Lvl) [facility] CenterVqpzymuPKNWTXPSDN9857-91-36 05:43:00 Test Item Value Reference Range Interpretation Comments Segs (test code = Segs) 87.0 45.0-75.0 [facility] CenterRayifygFILAJGMUZQ9740-19-92 05:43:00 Test Item Value Reference Range Interpretation Comments Neutrophils # (test code = Neutrophils 6.6 1.5-8.1 #) [facility] CenterKbbbddtULTRPAWMUF0751-15-67 05:43:00 Test Item Value Reference Range Interpretation Comments Lymphocytes (test code = Lymphocytes) 7.0 20.0-40.0 [facility] CenterKrfjhznSSQLOXYNHZ6352-35-78 05:43:00 Test Item Value Reference Range Interpretation Comments Monocytes (test code = Monocytes) 6.0 2.0-12.0 [facility] CenterGzkglkrELFCWVFFIB2932-38-77 05:43:00 Test Item Value Reference Range Interpretation Comments Lymphocytes # (test code = Lymphocytes 0.6 1.0-5.5 #) [facility] CenterKcppvveHIAXCXJZIX3633-04-41 05:43:00 Test Item Value Reference Range Interpretation Comments Monocytes # (test code 0.4 See_Comment [Aut omated message] The = Monocytes #) system which generated this result tra nsmitted reference range : <=0.8. The reference r renu was not used to int erpret this result as normal/abnormal . [facility] CenterTqloammJCRBWDEAHJ4969-17-51 05:43:00 Test Item Value Reference Range Interpretation Comments MCH (test code = MCH) 32.6 pg 27.0-31.0 [facility] CenterIwvrpscQKBCSJKOOH2818-71-12 05:43:00 Test Item Value Reference Range Interpretation Comments MCHC (test code = MCHC) 33.9 32.0-36.0 [facility] CenterWfglapsUUYSZZTMAR1940-09-66 05:43:00 Test Item Value Reference Range Interpretation Comments RDW (test code = RDW) 15.3 11.5-14.5 [facility] CenterZbtzivtLTVTDVQSYT0913-86-84 05:43:00 Test Item Value Reference Range Interpretation Comments Platelet (test code = Platelet) 136 133-450 [facility] CenterXayaksrGPPZQJTRCP8293-64-30 05:43:00 Test Item Value Reference Range Interpretation Comments MPV (test code = MPV) 9.6 7.4-10.4 [facility] CenterItbulodFSHENSTTTN4976-52-64 05:43:00 Test Item Value Reference Range Interpretation Comments WBC X 10x3 (test code = WBC X 10x3) 7.6 3.7-10.4 [facility] CenterIaanvpjGNXXBASWNN9277-82-27 05:43:00 Test Item Value Reference Range Interpretation Comments Hct (test code = Hct) 31.0 42.0-54.0 [facility] CenterRwkwdsdBBRXOQDQSP3584-16-45 05:43:00 Test Item Value Reference Range Interpretation Comments MCV (test code = MCV) 96.1 80.0-94.0 [facility] CenterKutydsgEORHHJAHTF6249-80-26 05:43:00 Test Item Value Reference Range Interpretation Comments RBC X 10x6 (test code = RBC X 10x6) 3.22 4.70-6.10 [facility] CenterKgvwicbVAHPXTXPGH3036-34-05 05:43:00 Test Item Value Reference Range Interpretation Comments Hgb (test code = Hgb) 10.5 14.0-18.0 [facility]2018-07-18 05:43:00 Test Item Value Reference Range Interpretation Comments Phosphorus (test code = Phosphorus) 4.1 2.5-4.5 [facility] [facility] 05:43:00 Test Item Value Reference Range Interpretation Comments Magnesium Lvl (test code = Magnesium 2.8 1.8-2.4 Lvl) [facility] CenterMzncqpnBHFRTUFRST5101-91-44 05:43:00 Test Item Value Reference Range Interpretation Comments Segs (test code = Segs) 87.0 45.0-75.0 [facility] CenterOgubmjuUVJODGRZVG5312-69-49 05:43:00 Test Item Value Reference Range Interpretation Comments Neutrophils # (test code = Neutrophils 6.6 1.5-8.1 #) [facility] CenterZnvmpxbNFUXVKAKZC7376-93-71 05:43:00 Test Item Value Reference Range Interpretation Comments Lymphocytes (test code = Lymphocytes) 7.0 20.0-40.0 [facility] CenterZzntykvYYUBXTDWPH9718-77-81 05:43:00 Test Item Value Reference Range Interpretation Comments Monocytes (test code = Monocytes) 6.0 2.0-12.0 [facility] CenterRabkzrtQJITQLYJWG8512-96-77 05:43:00 Test Item Value Reference Range Interpretation Comments Lymphocytes # (test code = Lymphocytes 0.6 1.0-5.5 #) [facility] CenterKzhzeriZSHIAGCWUW9718-98-80 05:43:00 Test Item Value Reference Range Interpretation Comments Monocytes # (test code 0.4 See_Comment [Aut omated message] The = Monocytes #) system which generated this result tra nsmitted reference range : <=0.8. The reference r renu was not used to int erpret this result as normal/abnormal . [facility] CenterNmqwklrWFYDGCHDUY0470-03-85 05:43:00 Test Item Value Reference Range Interpretation Comments MCH (test code = MCH) 32.6 pg 27.0-31.0 [facility] CenterXkobrndCGWPTHVUWI8954-41-45 05:43:00 Test Item Value Reference Range Interpretation Comments MCHC (test code = MCHC) 33.9 32.0-36.0 [facility] CenterNuaeiyjJHSMUDWPJC9449-05-80 05:43:00 Test Item Value Reference Range Interpretation Comments RDW (test code = RDW) 15.3 11.5-14.5 [facility] CenterCdrkhopEAGVSKVBNH3769-10-26 05:43:00 Test Item Value Reference Range Interpretation Comments Platelet (test code = Platelet) 136 133-450 [facility] CenterOnwquxjVDQWBYSVFT7041-49-06 05:43:00 Test Item Value Reference Range Interpretation Comments MPV (test code = MPV) 9.6 7.4-10.4 [facility] CenterTfnsmswMFDVWLZFQK6667-06-88 05:43:00 Test Item Value Reference Range Interpretation Comments WBC X 10x3 (test code = WBC X 10x3) 7.6 3.7-10.4 [facility] CenterSougaraXMKFXYDXQB2247-16-52 05:43:00 Test Item Value Reference Range Interpretation Comments Hct (test code = Hct) 31.0 42.0-54.0 [facility] CenterStvpcsdATAZTHKTIE9012-04-11 05:43:00 Test Item Value Reference Range Interpretation Comments MCV (test code = MCV) 96.1 80.0-94.0 [facility] CenterOkfalqzFBJYKEKRKO9356-68-60 05:43:00 Test Item Value Reference Range Interpretation Comments RBC X 10x6 (test code = RBC X 10x6) 3.22 4.70-6.10 [facility] CenterJiqsibcPXATYOSBHT0261-90-73 05:43:00 Test Item Value Reference Range Interpretation Comments Hgb (test code = Hgb) 10.5 14.0-18.0 [facility]2018-07-17 05:57:00 Test Item Value Reference Range Interpretation Comments Phosphorus (test code = Phosphorus) 3.6 2.5-4.5 [facility]2018-07-17 05:57:00 Test Item Value Reference Range Interpretation Comments Magnesium Lvl (test code = Magnesium 2.4 1.8-2.4 Lvl) [facility] CenterJzrdvguQDUEYJBBXR9903-93-02 05:57:00 Test Item Value Reference Range Interpretation Comments Segs (test code = Segs) 84.1 45.0-75.0 [facility] CenterUqitxrzFMEUOQDPNO3509-26-39 05:57:00 Test Item Value Reference Range Interpretation Comments Lymphocytes # (test code = Lymphocytes 0.9 1.0-5.5 #) [facility] CenterAaebuiaKIONPBWHSI6837-83-95 05:57:00 Test Item Value Reference Range Interpretation Comments Basophils (test code = 0.2 See_Comment [Aut omated message] The Basophils) system which ge nerated this result tra nsmitted reference range : <=1.0. The reference r renu was not used to int erpret this result as normal/abnormal . [facility] CenterVmkwetkZYVNDGOIYN3883-00-27 05:57:00 Test Item Value Reference Range Interpretation Comments Eosinophils (test code = 0.4 See_Comment [A utomated message] The Eosinophils) system which ge nerated this result tra nsmitted reference range : <=4.0. The reference r renu was not used to int erpret this result as normal/abnormal . [facility] CenterPiqjbowMVUZYIGDRM7839-37-15 05:57:00 Test Item Value Reference Range Interpretation Comments Neutrophils # (test code = Neutrophils 9.2 1.5-8.1 #) [facility] CenterVqpcfpaBEUTZLBFSU1779-18-52 05:57:00 Test Item Value Reference Range Interpretation Comments Monocytes (test code = Monocytes) 6.7 2.0-12.0 [facility] CenterWjaqvcuIFYYIJEDST6617-77-47 05:57:00 Test Item Value Reference Range Interpretation Comments Lymphocytes (test code = Lymphocytes) 8.6 20.0-40.0 [facility] CenterJlyycxvLOCLKHIUWU5708-41-95 05:57:00 Test Item Value Reference Range Interpretation Comments Monocytes # (test code 0.7 See_Comment [Aut omated message] The = Monocytes #) system which generated this result tra nsmitted reference range : <=0.8. The reference r renu was not used to int erpret this result as normal/abnormal . [facility] CenterJdkxrtnDYZJTMPZIU1204-96-00 05:57:00 Test Item Value Reference Range Interpretation Comments Platelet (test code = Platelet) 116 133-450 [facility] CenterWvcpaaaLNMUWDOKOA8207-75-36 05:57:00 Test Item Value Reference Range Interpretation Comments RDW (test code = RDW) 15.3 11.5-14.5 [facility] CenterYojnigvXDCUSODWAR7361-54-88 05:57:00 Test Item Value Reference Range Interpretation Comments MCV (test code = MCV) 96.8 80.0-94.0 [facility] CenterQqbvuqoQNNCUDHHHZ1968-82-68 05:57:00 Test Item Value Reference Range Interpretation Comments MCH (test code = MCH) 31.8 pg 27.0-31.0 [facility] CenterYsblgmsZAQJATYIQA8711-38-08 05:57:00 Test Item Value Reference Range Interpretation Comments Hgb (test code = Hgb) 10.6 14.0-18.0 [facility] CenterGhzwyigLPUHZDCYFD9343-68-66 05:57:00 Test Item Value Reference Range Interpretation Comments RBC (test code = RBC) 3.32 4.70-6.10 [facility] CenterGrljpiaAEYZKAWNUL7619-02-27 05:57:00 Test Item Value Reference Range Interpretation Comments MCHC (test code = MCHC) 32.8 32.0-36.0 [facility] CenterVnsvetwAZBHJQKNMC8069-90-17 05:57:00 Test Item Value Reference Range Interpretation Comments Hct (test code = Hct) 32.2 42.0-54.0 [facility] CenterMenpbbnMLWACPFTMA7848-54-57 05:57:00 Test Item Value Reference Range Interpretation Comments MPV (test code = MPV) 9.7 7.4-10.4 [facility] CenterOglrojmZODBVRJJMG7782-23-51 05:57:00 Test Item Value Reference Range Interpretation Comments WBC (test code = WBC) 10.9 3.7-10.4 [facility] CenterJkwgyweINHZTGUCHB8413-31-80 05:57:00 Test Item Value Reference Range Interpretation Comments Hgb (test code = Hgb) 10.6 14.0-18.0 [facility] CenterPbryvuxDTNTWPWSPW5468-96-61 05:57:00 Test Item Value Reference Range Interpretation Comments RBC (test code = RBC) 3.32 4.70-6.10 [facility] CenterVpzhhlyYEDDFQAAKJ0698-91-45 05:57:00 Test Item Value Reference Range Interpretation Comments MCHC (test code = MCHC) 32.8 32.0-36.0 [facility] CenterRxxmurdKGVMHPBBQE0325-13-75 05:57:00 Test Item Value Reference Range Interpretation Comments Hct (test code = Hct) 32.2 42.0-54.0 [facility] CenterXpakfebMGHQCWDBPF6252-48-70 05:57:00 Test Item Value Reference Range Interpretation Comments MPV (test code = MPV) 9.7 7.4-10.4 [facility] CenterWfortrjXJYOSJYFTQ4458-51-41 05:57:00 Test Item Value Reference Range Interpretation Comments WBC (test code = WBC) 10.9 3.7-10.4 [facility]2018-07-17 05:57:00 Test Item Value Reference Range Interpretation Comments Phosphorus (test code = Phosphorus) 3.6 2.5-4.5 [facility]2018-07-17 05:57:00 Test Item Value Reference Range Interpretation Comments Magnesium Lvl (test code = Magnesium 2.4 1.8-2.4 Lvl) [facility] CenterUryibddVRBKNHUAMO3994-57-70 05:57:00 Test Item Value Reference Range Interpretation Comments Segs (test code = Segs) 84.1 45.0-75.0 [facility] CenterOenzztrDAIJHIVANS4364-44-57 05:57:00 Test Item Value Reference Range Interpretation Comments Lymphocytes # (test code = Lymphocytes 0.9 1.0-5.5 #) [facility] CenterDbtgascWOVQQOLKZS0031-00-16 05:57:00 Test Item Value Reference Range Interpretation Comments Basophils (test code = 0.2 See_Comment [Aut omated message] The Basophils) system which ge nerated this result tra nsmitted reference range : <=1.0. The reference r renu was not used to int erpret this result as normal/abnormal . [facility] CenterBctxatoYEMTSHCPAO4748-52-73 05:57:00 Test Item Value Reference Range Interpretation Comments Eosinophils (test code = 0.4 See_Comment [A utomated message] The Eosinophils) system which ge nerated this result tra nsmitted reference range : <=4.0. The reference r renu was not used to int erpret this result as normal/abnormal . [facility] CenterYosvkytFJZBPEZVOK9329-06-50 05:57:00 Test Item Value Reference Range Interpretation Comments Neutrophils # (test code = Neutrophils 9.2 1.5-8.1 #) [facility] CenterAfzlktbHFJWWBGOEQ4652-02-26 05:57:00 Test Item Value Reference Range Interpretation Comments Monocytes (test code = Monocytes) 6.7 2.0-12.0 [facility] CenterAbtcluxHJBGKHQBKQ6227-18-64 05:57:00 Test Item Value Reference Range Interpretation Comments Lymphocytes (test code = Lymphocytes) 8.6 20.0-40.0 [facility] CenterWllxkdrDPHVCZPSFD7074-52-00 05:57:00 Test Item Value Reference Range Interpretation Comments Monocytes # (test code 0.7 See_Comment [Aut omated message] The = Monocytes #) system which generated this result tra nsmitted reference range : <=0.8. The reference r renu was not used to int erpret this result as normal/abnormal . [facility] CenterPfngptjCCQPWILZEA3852-46-24 05:57:00 Test Item Value Reference Range Interpretation Comments Platelet (test code = Platelet) 116 133-450 [facility] CenterEujslrfNEJJQSKKAD1317-85-91 05:57:00 Test Item Value Reference Range Interpretation Comments RDW (test code = RDW) 15.3 11.5-14.5 [facility] CenterHogvnozNYETQGQHBC8421-20-76 05:57:00 Test Item Value Reference Range Interpretation Comments MCV (test code = MCV) 96.8 80.0-94.0 [facility] CenterLlrztvsXCOQGNWFSZ7893-44-91 05:57:00 Test Item Value Reference Range Interpretation Comments MCH (test code = MCH) 31.8 pg 27.0-31.0 [facility] CenterKhcfuomCMMGGZUOAL5684-45-17 05:57:00 Test Item Value Reference Range Interpretation Comments Hgb (test code = Hgb) 10.6 14.0-18.0 [facility] CenterHlqdplfDWFKGKXXSD3334-95-86 05:57:00 Test Item Value Reference Range Interpretation Comments RBC (test code = RBC) 3.32 4.70-6.10 [facility] CenterSyslztaJJZFMFEDSW0475-96-06 05:57:00 Test Item Value Reference Range Interpretation Comments MCHC (test code = MCHC) 32.8 32.0-36.0 [facility] CenterRqdurnvCRPHTTIOEF9295-92-19 05:57:00 Test Item Value Reference Range Interpretation Comments Hct (test code = Hct) 32.2 42.0-54.0 [facility] CenterCpaolgcTMIORHXEHY7680-52-93 05:57:00 Test Item Value Reference Range Interpretation Comments MPV (test code = MPV) 9.7 7.4-10.4 [facility] CenterDhqymgxVIFZPKMWBI1929-29-77 05:57:00 Test Item Value Reference Range Interpretation Comments WBC (test code = WBC) 10.9 3.7-10.4 [facility]2018-07-17 05:57:00 Test Item Value Reference Range Interpretation Comments Phosphorus (test code = Phosphorus) 3.6 2.5-4.5 [facility]2018-07-17 05:57:00 Test Item Value Reference Range Interpretation Comments Magnesium Lvl (test code = Magnesium 2.4 1.8-2.4 Lvl) [facility] CenterOtuapclMICQXPHURK0899-43-67 05:57:00 Test Item Value Reference Range Interpretation Comments Segs (test code = Segs) 84.1 45.0-75.0 [facility] CenterOfmzlehOSOBQLOPGN1940-43-54 05:57:00 Test Item Value Reference Range Interpretation Comments Lymphocytes # (test code = Lymphocytes 0.9 1.0-5.5 #) [facility] CenterHyfwrvxIVBUSVXIXO7911-00-69 05:57:00 Test Item Value Reference Range Interpretation Comments Basophils (test code = 0.2 See_Comment [Aut omated message] The Basophils) system which ge nerated this result tra nsmitted reference range : <=1.0. The reference r renu was not used to int erpret this result as normal/abnormal . [facility] CenterAunvenlVWUDTFKKMT3617-96-75 05:57:00 Test Item Value Reference Range Interpretation Comments Eosinophils (test code = 0.4 See_Comment [A utomated message] The Eosinophils) system which ge nerated this result tra nsmitted reference range : <=4.0. The reference r renu was not used to int erpret this result as normal/abnormal . [facility] CenterYbqhokkREYSMEXGXD2524-00-59 05:57:00 Test Item Value Reference Range Interpretation Comments Neutrophils # (test code = Neutrophils 9.2 1.5-8.1 #) [facility] CenterUubsfjdSQGUWOHFQO6010-35-71 05:57:00 Test Item Value Reference Range Interpretation Comments Monocytes (test code = Monocytes) 6.7 2.0-12.0 [facility] CenterGlejbpaTWWNUFOPVE8653-39-10 05:57:00 Test Item Value Reference Range Interpretation Comments Lymphocytes (test code = Lymphocytes) 8.6 20.0-40.0 [facility] CenterIltjmvdYOTGDDJAAV4599-34-84 05:57:00 Test Item Value Reference Range Interpretation Comments Monocytes # (test code 0.7 See_Comment [Aut omated message] The = Monocytes #) system which generated this result tra nsmitted reference range : <=0.8. The reference r renu was not used to int erpret this result as normal/abnormal . [facility] CenterIdvyfcoBMUKYUAVHQ5225-50-87 05:57:00 Test Item Value Reference Range Interpretation Comments Platelet (test code = Platelet) 116 133-450 [facility] CenterXvyhgdkHMTFXBCDZD3312-80-14 05:57:00 Test Item Value Reference Range Interpretation Comments RDW (test code = RDW) 15.3 11.5-14.5 [facility] CenterFkptwriMVHRIWNZDL5290-20-48 05:57:00 Test Item Value Reference Range Interpretation Comments MCV (test code = MCV) 96.8 80.0-94.0 [facility] CenterUuyhjxuVNSYDNCPQG2559-30-83 05:57:00 Test Item Value Reference Range Interpretation Comments MCH (test code = MCH) 31.8 pg 27.0-31.0 [facility] CenterYdhxdyiNLFBVUXGHZ4561-11-38 05:57:00 Test Item Value Reference Range Interpretation Comments Hgb (test code = Hgb) 10.6 14.0-18.0 [facility]UxdvhdiQUVIYPPWXT1590-93-61 05:57:00 Test Item Value Reference Range Interpretation Comments RBC (test code = RBC) 3.32 4.70-6.10 [facility]RwavubxDUVACWTEVL9333-70-96 05:57:00 Test Item Value Reference Range Interpretation Comments MCHC (test code = MCHC) 32.8 32.0-36.0 [facility] CenterNzxgrbvEBOIKFIXHA3079-05-95 05:57:00 Test Item Value Reference Range Interpretation Comments Hct (test code = Hct) 32.2 42.0-54.0 [facility] CenterKkzplatZFFDCRSMNK4690-84-79 05:57:00 Test Item Value Reference Range Interpretation Comments MPV (test code = MPV) 9.7 7.4-10.4 [facility]NbgfzrcWLMMTSUKRH2013-38-02 05:57:00 Test Item Value Reference Range Interpretation Comments WBC (test code = WBC) 10.9 3.7-10.4 [facility]2018-07-17 05:57:00 Test Item Value Reference Range Interpretation Comments Phosphorus (test code = Phosphorus) 3.6 2.5-4.5 [facility]2018-07-17 05:57:00 Test Item Value Reference Range Interpretation Comments Magnesium Lvl (test code = Magnesium 2.4 1.8-2.4 Lvl) [facility] CenterFkgvndhWEKEZKUPZA4673-22-16 05:57:00 Test Item Value Reference Range Interpretation Comments Segs (test code = Segs) 84.1 45.0-75.0 [facility] CenterIchhyjhSXOZYUGNJE3287-57-79 05:57:00 Test Item Value Reference Range Interpretation Comments Lymphocytes # (test code = Lymphocytes 0.9 1.0-5.5 #) [facility] CenterAmhpcyyVJXBDQBCMD6072-20-99 05:57:00 Test Item Value Reference Range Interpretation Comments Basophils (test code = 0.2 See_Comment [Aut omated message] The Basophils) system which ge nerated this result tra nsmitted reference range : <=1.0. The reference r renu was not used to int erpret this result as normal/abnormal . [facility] CenterHzmqylwMMPQDVTSOU6760-42-15 05:57:00 Test Item Value Reference Range Interpretation Comments Eosinophils (test code = 0.4 See_Comment [A utomated message] The Eosinophils) system which ge nerated this result tra nsmitted reference range : <=4.0. The reference r renu was not used to int erpret this result as normal/abnormal . [facility] CenterRcmfyflIVZZZQZEGY9058-51-50 05:57:00 Test Item Value Reference Range Interpretation Comments Neutrophils # (test code = Neutrophils 9.2 1.5-8.1 #) [facility] CenterKyallcpFCIUUUUWIA8828-16-62 05:57:00 Test Item Value Reference Range Interpretation Comments Monocytes (test code = Monocytes) 6.7 2.0-12.0 [facility] CenterObepsuyEEZQYLRXUR7105-04-04 05:57:00 Test Item Value Reference Range Interpretation Comments Lymphocytes (test code = Lymphocytes) 8.6 20.0-40.0 [facility] CenterGlvjxwsJWGTQSUOYZ7535-10-56 05:57:00 Test Item Value Reference Range Interpretation Comments Monocytes # (test code 0.7 See_Comment [Aut omated message] The = Monocytes #) system which generated this result tra nsmitted reference range : <=0.8. The reference r renu was not used to int erpret this result as normal/abnormal . [address]07-17 05:57:00 Test Item Value Reference Range Interpretation Comments Platelet (test code = Platelet) 116 133-450 [facility] CenterEsqikqwWPYIARIGRL3898-81-85 05:57:00 Test Item Value Reference Range Interpretation Comments RDW (test code = RDW) 15.3 11.5-14.5 [facility] CenterSiuubsvIDRRRDHKNX2691-00-69 05:57:00 Test Item Value Reference Range Interpretation Comments MCV (test code = MCV) 96.8 80.0-94.0 [facility] CenterHhkyhouDYYOOMNIOE2478-59-14 05:57:00 Test Item Value Reference Range Interpretation Comments MCH (test code = MCH) 31.8 pg 27.0-31.0 [facility] CenterBapfxvzKJTMBVKAIW3989-82-85 05:57:00 Test Item Value Reference Range Interpretation Comments Hgb (test code = Hgb) 10.6 14.0-18.0 [facility] CenterPiecrxyRNWNOOGTDP0714-61-66 05:57:00 Test Item Value Reference Range Interpretation Comments RBC (test code = RBC) 3.32 4.70-6.10 [facility] CenterSzrzcgsGLNXANWJWY4996-53-70 05:57:00 Test Item Value Reference Range Interpretation Comments MCHC (test code = MCHC) 32.8 32.0-36.0 [facility] CenterHosggyiBRFYIJEHMU1772-13-50 05:57:00 Test Item Value Reference Range Interpretation Comments Hct (test code = Hct) 32.2 42.0-54.0 [facility] CenterWaldrscNTCKTDTLFG6060-18-44 05:57:00 Test Item Value Reference Range Interpretation Comments MPV (test code = MPV) 9.7 7.4-10.4 [facility] CenterDwuzaupJGNRRNGIXU0915-91-77 05:57:00 Test Item Value Reference Range Interpretation Comments WBC (test code = WBC) 10.9 3.7-10.4 [facility]villeCHEM UZAHP3115-30-55 05:57:00 Test Item Value Reference Range Interpretation Comments Phosphorus (test code = Phosphorus) 3.6 2.5-4.5 [facility] LQMJK8263-75-90 05:57:00 Test Item Value Reference Range Interpretation Comments Magnesium Lvl (test code = Magnesium 2.4 1.8-2.4 Lvl) [facility] CenterCqrhygaJJOZWJABLV7468-50-79 05:57:00 Test Item Value Reference Range Interpretation Comments Segs (test code = Segs) 84.1 45.0-75.0 [facility] CenterUelhdbrYJQILBCFQA7244-69-42 05:57:00 Test Item Value Reference Range Interpretation Comments Lymphocytes # (test code = Lymphocytes 0.9 1.0-5.5 #) [facility] CenterOfjraarRZDMNUYJBS0221-63-64 05:57:00 Test Item Value Reference Range Interpretation Comments Basophils (test code = 0.2 See_Comment [Aut omated message] The Basophils) system which ge nerated this result tra nsmitted reference range : <=1.0. The reference r renu was not used to int erpret this result as normal/abnormal . [facility] CenterNmhoehyKWBIEKHYXF7460-20-24 05:57:00 Test Item Value Reference Range Interpretation Comments Eosinophils (test code = 0.4 See_Comment [A utomated message] The Eosinophils) system which ge nerated this result tra nsmitted reference range : <=4.0. The reference r renu was not used to int erpret this result as normal/abnormal . [facility] CenterZcujacvAFIRVTUQMR2732-87-67 05:57:00 Test Item Value Reference Range Interpretation Comments Neutrophils # (test code = Neutrophils 9.2 1.5-8.1 #) [facility] CenterVxnpwvrYMCBVXHUAG4597-25-19 05:57:00 Test Item Value Reference Range Interpretation Comments Monocytes (test code = Monocytes) 6.7 2.0-12.0 [facility] CenterYtufwrzYDGQZWMRWB1477-13-61 05:57:00 Test Item Value Reference Range Interpretation Comments Lymphocytes (test code = Lymphocytes) 8.6 20.0-40.0 [facility] CenterDtafbtiSBPYETIGAP6572-60-81 05:57:00 Test Item Value Reference Range Interpretation Comments Monocytes # (test code 0.7 See_Comment [Aut omated message] The = Monocytes #) system which generated this result tra nsmitted reference range : <=0.8. The reference r renu was not used to int erpret this result as normal/abnormal . [facility] CenterDozzovcPXVJLOODIG8363-39-53 05:57:00 Test Item Value Reference Range Interpretation Comments Platelet (test code = Platelet) 116 133-450 [facility] CenterIneijnyRJJRHGIYXI2462-23-69 05:57:00 Test Item Value Reference Range Interpretation Comments RDW (test code = RDW) 15.3 11.5-14.5 [facility] CenterDxwgbotYMNWFZJFAQ0574-07-03 05:57:00 Test Item Value Reference Range Interpretation Comments MCV (test code = MCV) 96.8 80.0-94.0 [facility] CenterUtavfglZEMQUIEHXD6193-17-60 05:57:00 Test Item Value Reference Range Interpretation Comments MCH (test code = MCH) 31.8 pg 27.0-31.0 [facility] CenterLkoplrzHSARERQMUY9146-28-16 05:57:00 Test Item Value Reference Range Interpretation Comments Hgb (test code = Hgb) 10.6 14.0-18.0 [facility] CenterEtiqetoTNFOUGMIBU6690-22-25 05:57:00 Test Item Value Reference Range Interpretation Comments RBC (test code = RBC) 3.32 4.70-6.10 [facility] CenterShkmqocALAEDJMUEO0863-48-48 05:57:00 Test Item Value Reference Range Interpretation Comments MCHC (test code = MCHC) 32.8 32.0-36.0 [facility] CenterCfynnzlYSGCWDRVVJ0321-27-34 05:57:00 Test Item Value Reference Range Interpretation Comments Hct (test code = Hct) 32.2 42.0-54.0 [facility] CenterKziszjvQDOVBQIIIQ8448-37-21 05:57:00 Test Item Value Reference Range Interpretation Comments MPV (test code = MPV) 9.7 7.4-10.4 [facility] CenterSoilxzbUYIXJQELGX7561-22-15 05:57:00 Test Item Value Reference Range Interpretation Comments WBC (test code = WBC) 10.9 3.7-10.4 [facility]2018-07-17 05:57:00 Test Item Value Reference Range Interpretation Comments Phosphorus (test code = Phosphorus) 3.6 2.5-4.5 [facility] NMDDE3807-71-03 05:57:00 Test Item Value Reference Range Interpretation Comments Magnesium Lvl (test code = Magnesium 2.4 1.8-2.4 Lvl) [facility] CenterYolrxjmINCXPPKKNY3986-44-44 05:57:00 Test Item Value Reference Range Interpretation Comments Segs (test code = Segs) 84.1 45.0-75.0 [facility] CenterIqrztezJSCHHQNNCE4586-75-23 05:57:00 Test Item Value Reference Range Interpretation Comments Lymphocytes # (test code = Lymphocytes 0.9 1.0-5.5 #) [facility] CenterOsvzgpyQZSSEVMELM8596-29-20 05:57:00 Test Item Value Reference Range Interpretation Comments Basophils (test code = 0.2 See_Comment [Aut omated message] The Basophils) system which ge nerated this result tra nsmitted reference range : <=1.0. The reference r renu was not used to int erpret this result as normal/abnormal . [facility] CenterRlxxgueEGXMXOIQAT4814-74-19 05:57:00 Test Item Value Reference Range Interpretation Comments Eosinophils (test code = 0.4 See_Comment [A utomated message] The Eosinophils) system which ge nerated this result tra nsmitted reference range : <=4.0. The reference r renu was not used to int erpret this result as normal/abnormal . [facility] CenterZsmteheUAYECYHTPI5856-08-18 05:57:00 Test Item Value Reference Range Interpretation Comments Neutrophils # (test code = Neutrophils 9.2 1.5-8.1 #) [facility] CenterNsrqeavNDOZXFLABV7543-07-92 05:57:00 Test Item Value Reference Range Interpretation Comments Monocytes (test code = Monocytes) 6.7 2.0-12.0 [facility] CenterSwbdzahTFXFXDAZLP7658-48-09 05:57:00 Test Item Value Reference Range Interpretation Comments Lymphocytes (test code = Lymphocytes) 8.6 20.0-40.0 [facility] CenterZfeflmpHXPWTPWCUB9942-61-59 05:57:00 Test Item Value Reference Range Interpretation Comments Monocytes # (test code 0.7 See_Comment [Aut omated message] The = Monocytes #) system which generated this result tra nsmitted reference range : <=0.8. The reference r renu was not used to int erpret this result as normal/abnormal . [facility] CenterSurgoebZBVQVXOXNN2413-52-21 05:57:00 Test Item Value Reference Range Interpretation Comments Platelet (test code = Platelet) 116 133-450 [facility] CenterLslfnqcNXPCRDQTWV4350-81-70 05:57:00 Test Item Value Reference Range Interpretation Comments RDW (test code = RDW) 15.3 11.5-14.5 [facility] CenterJqyrikoKQNZTLRRZH4783-44-40 05:57:00 Test Item Value Reference Range Interpretation Comments MCV (test code = MCV) 96.8 80.0-94.0 [facility] CenterZlvvpcfUNUGTKFNGK7806-92-64 05:57:00 Test Item Value Reference Range Interpretation Comments MCH (test code = MCH) 31.8 pg 27.0-31.0 [facility]YivyfpkGKCJBXHDUZ9435-36-27 05:57:00 Test Item Value Reference Range Interpretation Comments Hgb (test code = Hgb) 10.6 14.0-18.0 [facility] CenterLhqwurrXVZHDZOWWZ7661-80-83 05:57:00 Test Item Value Reference Range Interpretation Comments RBC (test code = RBC) 3.32 4.70-6.10 [facility] CenterZhuhbepTLYCEIWTFE7985-67-60 05:57:00 Test Item Value Reference Range Interpretation Comments MCHC (test code = MCHC) 32.8 32.0-36.0 [facility] CenterPsgydnmLNUJVYHWPN4749-50-01 05:57:00 Test Item Value Reference Range Interpretation Comments Hct (test code = Hct) 32.2 42.0-54.0 [facility] CenterCuvqaxxOJJWFZDLSI9941-77-07 05:57:00 Test Item Value Reference Range Interpretation Comments MPV (test code = MPV) 9.7 7.4-10.4 [facility] CenterFleqfpvKHKOGLGYPV6737-67-91 05:57:00 Test Item Value Reference Range Interpretation Comments WBC (test code = WBC) 10.9 3.7-10.4 [facility] UQGTQ2979-39-28 05:57:00 Test Item Value Reference Range Interpretation Comments Phosphorus (test code = Phosphorus) 3.6 2.5-4.5 [facility]CHE[facility] HAMUM3802-58-77 05:57:00 Test Item Value Reference Range Interpretation Comments Magnesium Lvl (test code = Magnesium 2.4 1.8-2.4 Lvl) [facility] CenterIwhshliOSZVHEZJCH3671-80-99 05:57:00 Test Item Value Reference Range Interpretation Comments Segs (test code = Segs) 84.1 45.0-75.0 [facility] CenterGavqispXKUZLHUFII0130-80-07 05:57:00 Test Item Value Reference Range Interpretation Comments Lymphocytes # (test code = Lymphocytes 0.9 1.0-5.5 #) [facility] CenterJitdxvnPOZJEJUTIA3767-89-67 05:57:00 Test Item Value Reference Range Interpretation Comments Basophils (test code = 0.2 See_Comment [Aut omated message] The Basophils) system which ge nerated this result tra nsmitted reference range : <=1.0. The reference r renu was not used to int erpret this result as normal/abnormal . [facility] CenterNvyclyqBXCDAJXKDZ9512-96-11 05:57:00 Test Item Value Reference Range Interpretation Comments Eosinophils (test code = 0.4 See_Comment [A utomated message] The Eosinophils) system which ge nerated this result tra nsmitted reference range : <=4.0. The reference r renu was not used to int erpret this result as normal/abnormal . [facility] CenterVhfssouOBPUZYCDAI1748-31-00 05:57:00 Test Item Value Reference Range Interpretation Comments Neutrophils # (test code = Neutrophils 9.2 1.5-8.1 #) [facility] CenterGqkwthuNIWIFPPYKS9025-27-88 05:57:00 Test Item Value Reference Range Interpretation Comments Monocytes (test code = Monocytes) 6.7 2.0-12.0 [facility] CenterOveyacmAISOHMVJYN1688-76-42 05:57:00 Test Item Value Reference Range Interpretation Comments Lymphocytes (test code = Lymphocytes) 8.6 20.0-40.0 [facility] CenterXyrxnmcNPECBHAEBS3127-71-07 05:57:00 Test Item Value Reference Range Interpretation Comments Monocytes # (test code 0.7 See_Comment [Aut omated message] The = Monocytes #) system which generated this result tra nsmitted reference range : <=0.8. The reference r renu was not used to int erpret this result as normal/abnormal . [facility] CenterGliqtcsDKYKAZNXQN6239-64-32 05:57:00 Test Item Value Reference Range Interpretation Comments Platelet (test code = Platelet) 116 133-450 [facility] CenterJklonkzZDBLLGGJJW5656-27-97 05:57:00 Test Item Value Reference Range Interpretation Comments RDW (test code = RDW) 15.3 11.5-14.5 [facility] CenterCuttiwvSUQFJJCJJI3097-86-67 05:57:00 Test Item Value Reference Range Interpretation Comments MCV (test code = MCV) 96.8 80.0-94.0 [facility] CenterUxfdbviIVTWTGCBSY6174-42-84 05:57:00 Test Item Value Reference Range Interpretation Comments MCH (test code = MCH) 31.8 pg 27.0-31.0 [facility] CenterNfsuvoyWNUEUSOQEO8018-75-58 05:57:00 Test Item Value Reference Range Interpretation Comments Hgb (test code = Hgb) 10.6 14.0-18.0 [facility] CenterAtezimkAUHSRCQWBU6394-28-59 05:57:00 Test Item Value Reference Range Interpretation Comments RBC (test code = RBC) 3.32 4.70-6.10 [facility] CenterYjgzpbxRUYRZIDMPE3795-17-19 05:57:00 Test Item Value Reference Range Interpretation Comments MCHC (test code = MCHC) 32.8 32.0-36.0 [facility] CenterCjtamxyKNWSFZAKRD4788-03-84 05:57:00 Test Item Value Reference Range Interpretation Comments Hct (test code = Hct) 32.2 42.0-54.0 [facility] CenterYarngeqTRRZVEIVNH7573-26-56 05:57:00 Test Item Value Reference Range Interpretation Comments MPV (test code = MPV) 9.7 7.4-10.4 [facility] CenterMetzuxvBPMLCVVTXH8911-07-37 05:57:00 Test Item Value Reference Range Interpretation Comments WBC (test code = WBC) 10.9 3.7-10.4 [facility]CHE[facility] SRZXM0321-92-32 05:57:00 Test Item Value Reference Range Interpretation Comments Phosphorus (test code = Phosphorus) 3.6 2.5-4.5 [facility]CHE[facility] HMLZU1618-27-14 05:57:00 Test Item Value Reference Range Interpretation Comments Magnesium Lvl (test code = Magnesium 2.4 1.8-2.4 Lvl) [facility] CenterWylvabvWALZGJZHON9081-71-76 05:57:00 Test Item Value Reference Range Interpretation Comments Segs (test code = Segs) 84.1 45.0-75.0 [facility] CenterJpizmduZBJVNMRFAY8922-55-40 05:57:00 Test Item Value Reference Range Interpretation Comments Lymphocytes # (test code = Lymphocytes 0.9 1.0-5.5 #) [facility] CenterBdtzyivMVJUZJSYBU8263-69-08 05:57:00 Test Item Value Reference Range Interpretation Comments Basophils (test code = 0.2 See_Comment [Aut omated message] The Basophils) system which ge nerated this result tra nsmitted reference range : <=1.0. The reference r renu was not used to int erpret this result as normal/abnormal . [facility] CenterRmtklnuDYGHMSIYUX5566-15-39 05:57:00 Test Item Value Reference Range Interpretation Comments Eosinophils (test code = 0.4 See_Comment [A utomated message] The Eosinophils) system which ge nerated this result tra nsmitted reference range : <=4.0. The reference r renu was not used to int erpret this result as normal/abnormal . [facility] CenterTtodtofZHQDTASQWW4603-06-65 05:57:00 Test Item Value Reference Range Interpretation Comments Neutrophils # (test code = Neutrophils 9.2 1.5-8.1 #) [facility] CenterWcidkhfCMVAOVOAZZ9325-75-39 05:57:00 Test Item Value Reference Range Interpretation Comments Monocytes (test code = Monocytes) 6.7 2.0-12.0 [facility] CenterKevsvrrQGFTLFZCTQ0620-45-55 05:57:00 Test Item Value Reference Range Interpretation Comments Lymphocytes (test code = Lymphocytes) 8.6 20.0-40.0 [facility] CenterOtznymnBFMNGKCKRX4516-88-70 05:57:00 Test Item Value Reference Range Interpretation Comments Monocytes # (test code 0.7 See_Comment [Aut omated message] The = Monocytes #) system which generated this result tra nsmitted reference range : <=0.8. The reference r renu was not used to int erpret this result as normal/abnormal . [facility] CenterGvsmgpiPLQNJCHFPZ0052-02-87 05:57:00 Test Item Value Reference Range Interpretation Comments Platelet (test code = Platelet) 116 133-450 [facility] CenterBqbyzuvUIJQGRYCCI8630-75-36 05:57:00 Test Item Value Reference Range Interpretation Comments RDW (test code = RDW) 15.3 11.5-14.5 [facility] CenterNtwfkddHMSRIRESZX3677-35-50 05:57:00 Test Item Value Reference Range Interpretation Comments MCV (test code = MCV) 96.8 80.0-94.0 [facility] CenterKgjzhnrBXTXVCSDEC7387-64-15 05:57:00 Test Item Value Reference Range Interpretation Comments MCH (test code = MCH) 31.8 pg 27.0-31.0 [facility] CenterNdjjnfkOJWHHJVOHH8534-99-43 05:57:00 Test Item Value Reference Range Interpretation Comments Hgb (test code = Hgb) 10.6 14.0-18.0 [facility] CenterIfekwejTEFIIZQYGG2588-96-20 05:57:00 Test Item Value Reference Range Interpretation Comments RBC (test code = RBC) 3.32 4.70-6.10 [facility] CenterMozsmxcWTQSUTRSFJ5400-82-52 05:57:00 Test Item Value Reference Range Interpretation Comments MCHC (test code = MCHC) 32.8 32.0-36.0 [facility] CenterGkbqjclIUZEADIFLN4553-17-86 05:57:00 Test Item Value Reference Range Interpretation Comments Hct (test code = Hct) 32.2 42.0-54.0 [facility] CenterCbsgwjrQWVTJZRTZZ5839-88-73 05:57:00 Test Item Value Reference Range Interpretation Comments MPV (test code = MPV) 9.7 7.4-10.4 [facility] CenterCoaosrfFVDLVLGZOB8509-27-28 05:57:00 Test Item Value Reference Range Interpretation Comments WBC (test code = WBC) 10.9 3.7-10.4 [facility]2018-07-17 05:57:00 Test Item Value Reference Range Interpretation Comments Phosphorus (test code = Phosphorus) 3.6 2.5-4.5 [facility]2018-07-17 05:57:00 Test Item Value Reference Range Interpretation Comments Magnesium Lvl (test code = Magnesium 2.4 1.8-2.4 Lvl) [facility] CenterJbepzuyMNNAHTQGBG2886-48-63 05:57:00 Test Item Value Reference Range Interpretation Comments Segs (test code = Segs) 84.1 45.0-75.0 [facility] CenterBruetsqAVHBIHWEOQ1680-14-46 05:57:00 Test Item Value Reference Range Interpretation Comments Lymphocytes # (test code = Lymphocytes 0.9 1.0-5.5 #) [facility] CenterWtqojmxJDHHYINZIL1656-21-87 05:57:00 Test Item Value Reference Range Interpretation Comments Basophils (test code = 0.2 See_Comment [Aut omated message] The Basophils) system which ge nerated this result tra nsmitted reference range : <=1.0. The reference r renu was not used to int erpret this result as normal/abnormal . [facility] CenterLtpixgbHJWIVKMAOH6173-58-55 05:57:00 Test Item Value Reference Range Interpretation Comments Eosinophils (test code = 0.4 See_Comment [A utomated message] The Eosinophils) system which ge nerated this result tra nsmitted reference range : <=4.0. The reference r renu was not used to int erpret this result as normal/abnormal . [facility] CenterTzeokchWWEVATFKZB7172-28-99 05:57:00 Test Item Value Reference Range Interpretation Comments Neutrophils # (test code = Neutrophils 9.2 1.5-8.1 #) [facility] CenterQojcnsvXHURTWLOZR0514-02-02 05:57:00 Test Item Value Reference Range Interpretation Comments Monocytes (test code = Monocytes) 6.7 2.0-12.0 [facility] CenterAcurldgHDVVNLXTEC0372-99-03 05:57:00 Test Item Value Reference Range Interpretation Comments Lymphocytes (test code = Lymphocytes) 8.6 20.0-40.0 [facility] CenterAwhyrqpRDYSQGDVPJ8790-63-89 05:57:00 Test Item Value Reference Range Interpretation Comments Monocytes # (test code 0.7 See_Comment [Aut omated message] The = Monocytes #) system which generated this result tra nsmitted reference range : <=0.8. The reference r renu was not used to int erpret this result as normal/abnormal . [facility] CenterUmrppbtJOVFFBADEA6586-83-38 05:57:00 Test Item Value Reference Range Interpretation Comments Platelet (test code = Platelet) 116 133-450 [facility] CenterRwkbhldQSHNHTRAQO6126-00-80 05:57:00 Test Item Value Reference Range Interpretation Comments RDW (test code = RDW) 15.3 11.5-14.5 [facility] CenterYogiuzoDYFGNFMDUJ4326-78-74 05:57:00 Test Item Value Reference Range Interpretation Comments MCV (test code = MCV) 96.8 80.0-94.0 [facility] CenterIldwkoxLWTYGXOKDC3786-74-27 05:57:00 Test Item Value Reference Range Interpretation Comments MCH (test code = MCH) 31.8 pg 27.0-31.0 [place] [id number] 12:36:00 Test Item Value Reference Range Interpretation Comments Tacrolimus Lvl (test code = Tacrolimus 4.3 5.0-15.0 Lvl) [place] [id number] 12:36:00 Test Item Value Reference Range Interpretation Comments Tacrolimus Lvl (test code = Tacrolimus 4.3 5.0-15.0 Lvl) [place] [id number] 12:36:00 Test Item Value Reference Range Interpretation Comments Tacrolimus Lvl (test code = Tacrolimus 4.3 5.0-15.0 Lvl) [place] [id number] 12:36:00 Test Item Value Reference Range Interpretation Comments Tacrolimus Lvl (test code = Tacrolimus 4.3 5.0-15.0 Lvl) [place] [id number] 12:36:00 Test Item Value Reference Range Interpretation Comments Tacrolimus Lvl (test code = Tacrolimus 4.3 5.0-15.0 Lvl) [place] [id number] 12:36:00 Test Item Value Reference Range Interpretation Comments Tacrolimus Lvl (test code = Tacrolimus 4.3 5.0-15.0 Lvl) [place] [id number] 12:36:00 Test Item Value Reference Range Interpretation Comments Tacrolimus Lvl (test code = Tacrolimus 4.3 5.0-15.0 Lvl) [place] [id number] 12:36:00 Test Item Value Reference Range Interpretation Comments Tacrolimus Lvl (test code = Tacrolimus 4.3 5.0-15.0 Lvl) [place] [id number] 12:36:00 Test Item Value Reference Range Interpretation Comments Tacrolimus Lvl (test code = Tacrolimus 4.3 5.0-15.0 Lvl) [facility] CenterEdxggtbSEUFJKIXCM7741-04-19 05:53:00 Test Item Value Reference Range Interpretation Comments Lymphocytes (test code = Lymphocytes) 7.8 20.0-40.0 [facility] CenterAvgdqciCYXRVPQOOO6643-20-76 05:53:00 Test Item Value Reference Range Interpretation Comments Monocytes (test code = Monocytes) 7.6 2.0-12.0 [facility] CenterByaexeiDIBHIYJKFN7267-76-56 05:53:00 Test Item Value Reference Range Interpretation Comments Eosinophils (test code = 0.6 See_Comment [A utomated message] The Eosinophils) system which ge nerated this result tra nsmitted reference range : <=4.0. The reference r renu was not used to int erpret this result as normal/abnormal . [facility] CenterDkbugoiARELIDGAKG6880-42-07 05:53:00 Test Item Value Reference Range Interpretation Comments Neutrophils # (test code = Neutrophils 9.1 1.5-8.1 #) [facility] CenterUcggjpqCAUAYYZPLS8342-31-23 05:53:00 Test Item Value Reference Range Interpretation Comments Basophils (test code = 0.2 See_Comment [Aut omated message] The Basophils) system which ge nerated this result tra nsmitted reference range : <=1.0. The reference r renu was not used to int erpret this result as normal/abnormal . [facility] CenterWnibimcNYBRYEHXOV1455-49-91 05:53:00 Test Item Value Reference Range Interpretation Comments Lymphocytes # (test code = Lymphocytes 0.8 1.0-5.5 #) [facility] CenterDdbcmmsYSMSVJTRWB6105-57-29 05:53:00 Test Item Value Reference Range Interpretation Comments Monocytes # (test code 0.8 See_Comment [Aut omated message] The = Monocytes #) system which generated this result tra nsmitted reference range : <=0.8. The reference r renu was not used to int erpret this result as normal/abnormal . [facility] CenterThcbjsePVGVAJPTBN0705-50-40 05:53:00 Test Item Value Reference Range Interpretation Comments Eosinophils # (test code 0.1 See_Comment [A utomated message] The = Eosinophils #) system whic h generated this result tra nsmitted reference range : <=0.5. The reference r renu was not used to int erpret this result as normal/abnormal . [facility] CenterKdddhqcKNSNDGSSWA2263-98-29 05:53:00 Test Item Value Reference Range Interpretation Comments Segs (test code = Segs) 83.8 45.0-75.0 [facility] CenterQzrluzgAMODKFLOWM7774-32-26 05:53:00 Test Item Value Reference Range Interpretation Comments RBC (test code = RBC) 3.33 4.70-6.10 [facility] CenterVargohqCPGBEHMLGH3231-27-85 05:53:00 Test Item Value Reference Range Interpretation Comments WBC (test code = WBC) 10.8 3.7-10.4 [facility] CenterRqspbeeZRFYLZZQMQ4490-89-03 05:53:00 Test Item Value Reference Range Interpretation Comments RDW (test code = RDW) 15.2 11.5-14.5 [facility] CenterUevfkiuRXJNTLFBIA8194-11-10 05:53:00 Test Item Value Reference Range Interpretation Comments Platelet (test code = Platelet) 118 133-450 [facility] CenterYkxlbinZFQBTYNEFM4027-68-85 05:53:00 Test Item Value Reference Range Interpretation Comments MPV (test code = MPV) 9.6 7.4-10.4 [facility] CenterKyxeioeAQXEYPMRIV1060-03-57 05:53:00 Test Item Value Reference Range Interpretation Comments MCHC (test code = MCHC) 33.5 32.0-36.0 [facility] CenterIveccxlGEMSCXAXSR6954-60-47 05:53:00 Test Item Value Reference Range Interpretation Comments MCH (test code = MCH) 32.3 pg 27.0-31.0 [facility] CenterItwqvhdRWWXBQRKPP5486-31-25 05:53:00 Test Item Value Reference Range Interpretation Comments Hct (test code = Hct) 32.1 42.0-54.0 [facility] CenterCtcvxpfRSPLQCTBFU4074-66-97 05:53:00 Test Item Value Reference Range Interpretation Comments MCV (test code = MCV) 96.2 80.0-94.0 [facility] CenterRankopyNTJRLVEWTH2009-52-90 05:53:00 Test Item Value Reference Range Interpretation Comments Hgb (test code = Hgb) 10.8 14.0-18.0 [facility] CenterWmkwdhrVHXNTELJFM4147-48-13 05:53:00 Test Item Value Reference Range Interpretation Comments Lymphocytes (test code = Lymphocytes) 7.8 20.0-40.0 [facility] CenterCibfeywEMSQAHFWMF5881-42-49 05:53:00 Test Item Value Reference Range Interpretation Comments Monocytes (test code = Monocytes) 7.6 2.0-12.0 [facility] CenterIeuvbwkHCDPNBXAAA3453-52-36 05:53:00 Test Item Value Reference Range Interpretation Comments Eosinophils (test code = 0.6 See_Comment [A utomated message] The Eosinophils) system which ge nerated this result tra nsmitted reference range : <=4.0. The reference r renu was not used to int erpret this result as normal/abnormal . [facility] CenterZgnkuggTFNOATPWGZ0047-05-63 05:53:00 Test Item Value Reference Range Interpretation Comments Neutrophils # (test code = Neutrophils 9.1 1.5-8.1 #) [facility] CenterArhgkzpBJYCGOIAJG3481-67-81 05:53:00 Test Item Value Reference Range Interpretation Comments Basophils (test code = 0.2 See_Comment [Aut omated message] The Basophils) system which ge nerated this result tra nsmitted reference range : <=1.0. The reference r renu was not used to int erpret this result as normal/abnormal . [facility] CenterYumezaoRJSHVOPUCW1418-69-87 05:53:00 Test Item Value Reference Range Interpretation Comments Lymphocytes # (test code = Lymphocytes 0.8 1.0-5.5 #) [facility] CenterEgwnmfyTRKXBZNZMA8408-11-72 05:53:00 Test Item Value Reference Range Interpretation Comments Monocytes # (test code 0.8 See_Comment [Aut omated message] The = Monocytes #) system which generated this result tra nsmitted reference range : <=0.8. The reference r renu was not used to int erpret this result as normal/abnormal . [facility] CenterDquglueWNLYKWZQVQ0234-89-02 05:53:00 Test Item Value Reference Range Interpretation Comments Eosinophils # (test code 0.1 See_Comment [A utomated message] The = Eosinophils #) system whic h generated this result tra nsmitted reference range : <=0.5. The reference r renu was not used to int erpret this result as normal/abnormal . [facility] CenterOwrlqyeJYBVIVRKLI8680-89-33 05:53:00 Test Item Value Reference Range Interpretation Comments Segs (test code = Segs) 83.8 45.0-75.0 [facility] CenterDguakegVOKHULZVPB1504-65-22 05:53:00 Test Item Value Reference Range Interpretation Comments RBC (test code = RBC) 3.33 4.70-6.10 [facility] CenterPdxvwxuBDETJDUMLB6714-17-70 05:53:00 Test Item Value Reference Range Interpretation Comments WBC (test code = WBC) 10.8 3.7-10.4 [facility] CenterGnfrcxcLUTHMSSERB8452-90-46 05:53:00 Test Item Value Reference Range Interpretation Comments RDW (test code = RDW) 15.2 11.5-14.5 [facility] CenterFptejocOODFEWPATK8725-26-52 05:53:00 Test Item Value Reference Range Interpretation Comments Platelet (test code = Platelet) 118 133-450 [facility] CenterRvdzqomONSZDSTHWF0296-76-30 05:53:00 Test Item Value Reference Range Interpretation Comments MPV (test code = MPV) 9.6 7.4-10.4 [facility] CenterAhfbowtZARDYMXUGW1948-39-56 05:53:00 Test Item Value Reference Range Interpretation Comments MCHC (test code = MCHC) 33.5 32.0-36.0 [facility] CenterWjkermkNHQBDCPJEN7437-96-23 05:53:00 Test Item Value Reference Range Interpretation Comments MCH (test code = MCH) 32.3 pg 27.0-31.0 [facility] CenterOpdttwpYESHTMJKJQ5366-95-37 05:53:00 Test Item Value Reference Range Interpretation Comments Hct (test code = Hct) 32.1 42.0-54.0 [facility] CenterQfarxnfMFQRLFWYBH2148-90-37 05:53:00 Test Item Value Reference Range Interpretation Comments MCV (test code = MCV) 96.2 80.0-94.0 [facility] CenterVukalbnFCHUDTUITJ4465-42-78 05:53:00 Test Item Value Reference Range Interpretation Comments Hgb (test code = Hgb) 10.8 14.0-18.0 [facility] CenterIrshgnnFWIHPBABLX1304-77-55 05:53:00 Test Item Value Reference Range Interpretation Comments Lymphocytes (test code = Lymphocytes) 7.8 20.0-40.0 [facility] CenterBbnuwvwMBXBTWNQAM2933-14-77 05:53:00 Test Item Value Reference Range Interpretation Comments Monocytes (test code = Monocytes) 7.6 2.0-12.0 [facility] CenterZgbhszkDTPSBSIHDB1854-66-29 05:53:00 Test Item Value Reference Range Interpretation Comments Eosinophils (test code = 0.6 See_Comment [A utomated message] The Eosinophils) system which ge nerated this result tra nsmitted reference range : <=4.0. The reference r renu was not used to int erpret this result as normal/abnormal . [facility] CenterQzxwsnrXHKRKJSZJX5904-14-43 05:53:00 Test Item Value Reference Range Interpretation Comments Neutrophils # (test code = Neutrophils 9.1 1.5-8.1 #) [facility] CenterDbokbxmPEQUMDESEC9928-30-58 05:53:00 Test Item Value Reference Range Interpretation Comments Basophils (test code = 0.2 See_Comment [Aut omated message] The Basophils) system which ge nerated this result tra nsmitted reference range : <=1.0. The reference r renu was not used to int erpret this result as normal/abnormal . [facility] CenterInxbrfyKUYLLHMRLZ0820-48-45 05:53:00 Test Item Value Reference Range Interpretation Comments Lymphocytes # (test code = Lymphocytes 0.8 1.0-5.5 #) [facility] CenterEsxpsorUIJFZZNWHI8413-31-35 05:53:00 Test Item Value Reference Range Interpretation Comments Monocytes # (test code 0.8 See_Comment [Aut omated message] The = Monocytes #) system which generated this result tra nsmitted reference range : <=0.8. The reference r renu was not used to int erpret this result as normal/abnormal . [facility] CenterFtzusckSGETLVEIRA2511-02-96 05:53:00 Test Item Value Reference Range Interpretation Comments Eosinophils # (test code 0.1 See_Comment [A utomated message] The = Eosinophils #) system whic h generated this result tra nsmitted reference range : <=0.5. The reference r renu was not used to int erpret this result as normal/abnormal . [facility] CenterZwaezhkDOXKTFGHJH1196-64-53 05:53:00 Test Item Value Reference Range Interpretation Comments Segs (test code = Segs) 83.8 45.0-75.0 [facility] CenterKjqmwitQRCWKNGNRZ3412-68-29 05:53:00 Test Item Value Reference Range Interpretation Comments RBC (test code = RBC) 3.33 4.70-6.10 [facility] CenterPooifgmEPWIECLHTT2235-27-35 05:53:00 Test Item Value Reference Range Interpretation Comments WBC (test code = WBC) 10.8 3.7-10.4 [facility] CenterXnmpegdWNUDPKPISW5680-68-17 05:53:00 Test Item Value Reference Range Interpretation Comments RDW (test code = RDW) 15.2 11.5-14.5 [facility] CenterWoxmmxtXNHXOTBVBO0995-77-07 05:53:00 Test Item Value Reference Range Interpretation Comments Platelet (test code = Platelet) 118 133-450 [facility] CenterGqkyepfNHFUTIFDUS4885-60-72 05:53:00 Test Item Value Reference Range Interpretation Comments MPV (test code = MPV) 9.6 7.4-10.4 [facility] CenterYgtzapkSLPHINAZFG1367-70-74 05:53:00 Test Item Value Reference Range Interpretation Comments MCHC (test code = MCHC) 33.5 32.0-36.0 [facility] CenterDmclfaxKBJQXOESKK4194-11-87 05:53:00 Test Item Value Reference Range Interpretation Comments MCH (test code = MCH) 32.3 pg 27.0-31.0 [facility] CenterXljrrlzGPAXZEXWBT6309-71-62 05:53:00 Test Item Value Reference Range Interpretation Comments Hct (test code = Hct) 32.1 42.0-54.0 [facility] CenterZbzmahhTMQMCMGKHZ4020-94-02 05:53:00 Test Item Value Reference Range Interpretation Comments MCV (test code = MCV) 96.2 80.0-94.0 [facility] CenterHyfhekrNVLQYLGNXO4992-43-45 05:53:00 Test Item Value Reference Range Interpretation Comments Hgb (test code = Hgb) 10.8 14.0-18.0 [facility] CenterVmisanrNRTBCUJMZF5961-01-01 05:53:00 Test Item Value Reference Range Interpretation Comments Lymphocytes (test code = Lymphocytes) 7.8 20.0-40.0 [facility] CenterRirouyjASUJGSERAX6979-99-68 05:53:00 Test Item Value Reference Range Interpretation Comments Monocytes (test code = Monocytes) 7.6 2.0-12.0 [facility] CenterZiarowpDQPUJBKOMB6286-78-54 05:53:00 Test Item Value Reference Range Interpretation Comments Eosinophils (test code = 0.6 See_Comment [A utomated message] The Eosinophils) system which ge nerated this result tra nsmitted reference range : <=4.0. The reference r renu was not used to int erpret this result as normal/abnormal . [facility] CenterZabefdxJCDZIUGOII5333-50-07 05:53:00 Test Item Value Reference Range Interpretation Comments Neutrophils # (test code = Neutrophils 9.1 1.5-8.1 #) [facility] CenterBjwgftoRSYQPJDGII4007-93-03 05:53:00 Test Item Value Reference Range Interpretation Comments Basophils (test code = 0.2 See_Comment [Aut omated message] The Basophils) system which ge nerated this result tra nsmitted reference range : <=1.0. The reference r renu was not used to int erpret this result as normal/abnormal . [facility] CenterTkrsorrDITSSRNQAQ4319-94-34 05:53:00 Test Item Value Reference Range Interpretation Comments Lymphocytes # (test code = Lymphocytes 0.8 1.0-5.5 #) [facility] CenterGmwiuaiGRLTQVUJQL4410-33-87 05:53:00 Test Item Value Reference Range Interpretation Comments Monocytes # (test code 0.8 See_Comment [Aut omated message] The = Monocytes #) system which generated this result tra nsmitted reference range : <=0.8. The reference r renu was not used to int erpret this result as normal/abnormal . [facility] CenterXurauchMSGPTIQTKS6268-66-10 05:53:00 Test Item Value Reference Range Interpretation Comments Eosinophils # (test code 0.1 See_Comment [A utomated message] The = Eosinophils #) system whic h generated this result tra nsmitted reference range : <=0.5. The reference r renu was not used to int erpret this result as normal/abnormal . [facility] CenterRnkqlwmNHMRTHXXSS9473-99-55 05:53:00 Test Item Value Reference Range Interpretation Comments Segs (test code = Segs) 83.8 45.0-75.0 [facility] CenterIsqbzrdQFMUSMYEFB6541-50-09 05:53:00 Test Item Value Reference Range Interpretation Comments RBC (test code = RBC) 3.33 4.70-6.10 [facility] CenterRwcolowYXYZMGMFYF4032-94-15 05:53:00 Test Item Value Reference Range Interpretation Comments WBC (test code = WBC) 10.8 3.7-10.4 [facility] CenterLxdubmdBMHDRRPLGX0122-06-72 05:53:00 Test Item Value Reference Range Interpretation Comments RDW (test code = RDW) 15.2 11.5-14.5 [facility] CenterTpzoyfnVUCVPNWEMF4943-92-14 05:53:00 Test Item Value Reference Range Interpretation Comments Platelet (test code = Platelet) 118 133-450 [facility] CenterTmyzlcaDUDOILOYNB9159-95-90 05:53:00 Test Item Value Reference Range Interpretation Comments MPV (test code = MPV) 9.6 7.4-10.4 [facility] CenterPflhysqSSFAKIMOEV8071-39-42 05:53:00 Test Item Value Reference Range Interpretation Comments MCHC (test code = MCHC) 33.5 32.0-36.0 [facility] CenterRfberdrXXVFRKVNBB8513-70-39 05:53:00 Test Item Value Reference Range Interpretation Comments MCH (test code = MCH) 32.3 pg 27.0-31.0 [facility] CenterJvnconlKNUCDALDTL8005-56-51 05:53:00 Test Item Value Reference Range Interpretation Comments Hct (test code = Hct) 32.1 42.0-54.0 [facility] CenterEgxuoeeFXKWKOMIQW0839-30-14 05:53:00 Test Item Value Reference Range Interpretation Comments MCV (test code = MCV) 96.2 80.0-94.0 [facility] CenterYxdmevzOYHUNPGPRV6794-53-35 05:53:00 Test Item Value Reference Range Interpretation Comments Hgb (test code = Hgb) 10.8 14.0-18.0 [facility] CenterXxqzsqmGABAPCZMVC0807-19-26 05:53:00 Test Item Value Reference Range Interpretation Comments Lymphocytes (test code = Lymphocytes) 7.8 20.0-40.0 [facility] CenterJajhnrmXFSSCMIDWS0098-22-81 05:53:00 Test Item Value Reference Range Interpretation Comments Monocytes (test code = Monocytes) 7.6 2.0-12.0 [facility] CenterQozpvzeQSHMWFYAFM5177-15-96 05:53:00 Test Item Value Reference Range Interpretation Comments Eosinophils (test code = 0.6 See_Comment [A utomated message] The Eosinophils) system which ge nerated this result tra nsmitted reference range : <=4.0. The reference r renu was not used to int erpret this result as normal/abnormal . [facility] CenterKmqilytOMYBZQAWPO7806-72-54 05:53:00 Test Item Value Reference Range Interpretation Comments Neutrophils # (test code = Neutrophils 9.1 1.5-8.1 #) [facility] CenterFkzbkvfYOEMPNYBPP5823-06-41 05:53:00 Test Item Value Reference Range Interpretation Comments Basophils (test code = 0.2 See_Comment [Aut omated message] The Basophils) system which ge nerated this result tra nsmitted reference range : <=1.0. The reference r renu was not used to int erpret this result as normal/abnormal . [facility] CenterTerjbdmIAEEKXDZYU8031-13-38 05:53:00 Test Item Value Reference Range Interpretation Comments Lymphocytes # (test code = Lymphocytes 0.8 1.0-5.5 #) [facility] CenterIuhptehPRSNQPIKZX3953-65-93 05:53:00 Test Item Value Reference Range Interpretation Comments Monocytes # (test code 0.8 See_Comment [Aut omated message] The = Monocytes #) system which generated this result tra nsmitted reference range : <=0.8. The reference r renu was not used to int erpret this result as normal/abnormal . [facility] CenterMdsegkzWPCLSOMMTG5387-28-09 05:53:00 Test Item Value Reference Range Interpretation Comments Eosinophils # (test code 0.1 See_Comment [A utomated message] The = Eosinophils #) system whic h generated this result tra nsmitted reference range : <=0.5. The reference r renu was not used to int erpret this result as normal/abnormal . [facility] CenterMgmwkpwILLEQOQEZR4198-56-13 05:53:00 Test Item Value Reference Range Interpretation Comments Segs (test code = Segs) 83.8 45.0-75.0 [facility] CenterEqqycedVOGIZLQGYU8915-99-00 05:53:00 Test Item Value Reference Range Interpretation Comments RBC (test code = RBC) 3.33 4.70-6.10 [facility] CenterVkyeainKODAEESIYX7411-82-73 05:53:00 Test Item Value Reference Range Interpretation Comments WBC (test code = WBC) 10.8 3.7-10.4 [facility] CenterIfxstcmCEKXZTKPEQ3240-50-36 05:53:00 Test Item Value Reference Range Interpretation Comments RDW (test code = RDW) 15.2 11.5-14.5 [facility] CenterQkjeoanOULUXYXPCZ6382-17-75 05:53:00 Test Item Value Reference Range Interpretation Comments Platelet (test code = Platelet) 118 133-450 [facility] CenterWdsjzhaCCOOMLGKSI8741-85-23 05:53:00 Test Item Value Reference Range Interpretation Comments MPV (test code = MPV) 9.6 7.4-10.4 [facility] CenterScuvefyGFGLEYAIUA4451-46-59 05:53:00 Test Item Value Reference Range Interpretation Comments MCHC (test code = MCHC) 33.5 32.0-36.0 [facility] CenterVgbrxzuFAPDGNHHMG4691-16-53 05:53:00 Test Item Value Reference Range Interpretation Comments MCH (test code = MCH) 32.3 pg 27.0-31.0 [facility] CenterKamjbbmHZRJKVNSLI1186-57-30 05:53:00 Test Item Value Reference Range Interpretation Comments Hct (test code = Hct) 32.1 42.0-54.0 [facility] CenterXcfixihKLFQSUSOSS9042-70-20 05:53:00 Test Item Value Reference Range Interpretation Comments MCV (test code = MCV) 96.2 80.0-94.0 [facility] CenterVjnmtdnYESCEIADNU5989-68-96 05:53:00 Test Item Value Reference Range Interpretation Comments Hgb (test code = Hgb) 10.8 14.0-18.0 [facility] CenterRmolvzsIQTCKCWIAA1529-30-13 05:53:00 Test Item Value Reference Range Interpretation Comments Lymphocytes (test code = Lymphocytes) 7.8 20.0-40.0 [facility] CenterAkdilfqGQPTIMBAWS6863-44-54 05:53:00 Test Item Value Reference Range Interpretation Comments Monocytes (test code = Monocytes) 7.6 2.0-12.0 [facility] CenterUkyusrhXZJVYXWFPD7905-04-71 05:53:00 Test Item Value Reference Range Interpretation Comments Eosinophils (test code = 0.6 See_Comment [A utomated message] The Eosinophils) system which ge nerated this result tra nsmitted reference range : <=4.0. The reference r renu was not used to int erpret this result as normal/abnormal . [facility] CenterFywjvdrLLNNBGDOCM4359-79-90 05:53:00 Test Item Value Reference Range Interpretation Comments Neutrophils # (test code = Neutrophils 9.1 1.5-8.1 #) [facility] CenterIplexwtYQQAGGRWDR0755-77-36 05:53:00 Test Item Value Reference Range Interpretation Comments Basophils (test code = 0.2 See_Comment [Aut omated message] The Basophils) system which ge nerated this result tra nsmitted reference range : <=1.0. The reference r renu was not used to int erpret this result as normal/abnormal . [facility] CenterEevipniIPGBMWRHNZ0004-55-76 05:53:00 Test Item Value Reference Range Interpretation Comments Lymphocytes # (test code = Lymphocytes 0.8 1.0-5.5 #) [facility] CenterHhpintoUNDTRDJGMW4041-44-51 05:53:00 Test Item Value Reference Range Interpretation Comments Monocytes # (test code 0.8 See_Comment [Aut omated message] The = Monocytes #) system which generated this result tra nsmitted reference range : <=0.8. The reference r renu was not used to int erpret this result as normal/abnormal . [facility] CenterQcahyvfAYMPBLLTXI2103-93-90 05:53:00 Test Item Value Reference Range Interpretation Comments Eosinophils # (test code 0.1 See_Comment [A utomated message] The = Eosinophils #) system whic h generated this result tra nsmitted reference range : <=0.5. The reference r renu was not used to int erpret this result as normal/abnormal . [facility] CenterOpondloKQDTNLLBGA9544-25-69 05:53:00 Test Item Value Reference Range Interpretation Comments Segs (test code = Segs) 83.8 45.0-75.0 [facility] CenterQbzzzomMKBJZXQLWJ1132-17-95 05:53:00 Test Item Value Reference Range Interpretation Comments RBC (test code = RBC) 3.33 4.70-6.10 [facility] CenterOzqayzyADAPTAAALN8252-37-77 05:53:00 Test Item Value Reference Range Interpretation Comments WBC (test code = WBC) 10.8 3.7-10.4 [facility] CenterHtwutqsAGVPVLXWBB1281-47-28 05:53:00 Test Item Value Reference Range Interpretation Comments RDW (test code = RDW) 15.2 11.5-14.5 [facility] CenterTsijqamDMXUJKMRQO2227-08-49 05:53:00 Test Item Value Reference Range Interpretation Comments Platelet (test code = Platelet) 118 133-450 [facility] CenterLngtiljZRYDZEIPOS6315-89-14 05:53:00 Test Item Value Reference Range Interpretation Comments MPV (test code = MPV) 9.6 7.4-10.4 [facility] CenterFcyehwcWTZSMIYYEK8945-10-93 05:53:00 Test Item Value Reference Range Interpretation Comments MCHC (test code = MCHC) 33.5 32.0-36.0 [facility] CenterCoojfckHFJHUXWHKB3113-73-59 05:53:00 Test Item Value Reference Range Interpretation Comments MCH (test code = MCH) 32.3 pg 27.0-31.0 [facility] CenterQjmsklvLMRPFPMWQV1477-35-91 05:53:00 Test Item Value Reference Range Interpretation Comments Hct (test code = Hct) 32.1 42.0-54.0 [facility] CenterAtirsniREHXHOGLCG8129-60-81 05:53:00 Test Item Value Reference Range Interpretation Comments MCV (test code = MCV) 96.2 80.0-94.0 [facility] CenterVblskujSQGODXXUVD0645-79-68 05:53:00 Test Item Value Reference Range Interpretation Comments Hgb (test code = Hgb) 10.8 14.0-18.0 [facility] CenterKtykzzjNKWQDOIBUW4193-02-27 05:53:00 Test Item Value Reference Range Interpretation Comments Lymphocytes (test code = Lymphocytes) 7.8 20.0-40.0 [facility] CenterGkijcdmLVMACABKSX7682-85-19 05:53:00 Test Item Value Reference Range Interpretation Comments Monocytes (test code = Monocytes) 7.6 2.0-12.0 [facility] CenterDnzexumSLNWTZQKVI3674-06-52 05:53:00 Test Item Value Reference Range Interpretation Comments Eosinophils (test code = 0.6 See_Comment [A utomated message] The Eosinophils) system which ge nerated this result tra nsmitted reference range : <=4.0. The reference r renu was not used to int erpret this result as normal/abnormal . [facility] CenterCpplzkhELBXUWKIQB6915-02-52 05:53:00 Test Item Value Reference Range Interpretation Comments Neutrophils # (test code = Neutrophils 9.1 1.5-8.1 #) [facility] CenterGpatvihBNIHLMCXOW1972-61-84 05:53:00 Test Item Value Reference Range Interpretation Comments Basophils (test code = 0.2 See_Comment [Aut omated message] The Basophils) system which ge nerated this result tra nsmitted reference range : <=1.0. The reference r renu was not used to int erpret this result as normal/abnormal . [facility] CenterQqmbrjiBPZBKPBXJK1405-43-25 05:53:00 Test Item Value Reference Range Interpretation Comments Lymphocytes # (test code = Lymphocytes 0.8 1.0-5.5 #) [facility] CenterYpodyanJUUKJLIPMT5875-63-63 05:53:00 Test Item Value Reference Range Interpretation Comments Monocytes # (test code 0.8 See_Comment [Aut omated message] The = Monocytes #) system which generated this result tra nsmitted reference range : <=0.8. The reference r renu was not used to int erpret this result as normal/abnormal . [facility] CenterUkhrtviNDZWHIAEQX4106-10-94 05:53:00 Test Item Value Reference Range Interpretation Comments Eosinophils # (test code 0.1 See_Comment [A utomated message] The = Eosinophils #) system whic h generated this result tra nsmitted reference range : <=0.5. The reference r renu was not used to int erpret this result as normal/abnormal . [facility] CenterDoorioaXFYKRWMYCH6919-26-23 05:53:00 Test Item Value Reference Range Interpretation Comments Segs (test code = Segs) 83.8 45.0-75.0 [facility] CenterQnnfwnlZSJHBVUIBI5906-19-65 05:53:00 Test Item Value Reference Range Interpretation Comments RBC (test code = RBC) 3.33 4.70-6.10 [facility] CenterSuimevmIGGLKAQOQY7504-65-51 05:53:00 Test Item Value Reference Range Interpretation Comments WBC (test code = WBC) 10.8 3.7-10.4 [place] 796548-07-16 05:53:00 Test Item Value Reference Range Interpretation Comments RDW (test code = RDW) 15.2 11.5-14.5 [facility] CenterGuzoyazPFUPQBRGXQ2046-28-68 05:53:00 Test Item Value Reference Range Interpretation Comments Platelet (test code = Platelet) 118 133-450 [facility] CenterBqpjzciQFKQTXXFPD6752-77-41 05:53:00 Test Item Value Reference Range Interpretation Comments MPV (test code = MPV) 9.6 7.4-10.4 [facility] CenterOaxxzysVWHGLZMDPY8919-29-31 05:53:00 Test Item Value Reference Range Interpretation Comments MCHC (test code = MCHC) 33.5 32.0-36.0 [facility] CenterQzrtyihDSFGOBHKMP8114-09-39 05:53:00 Test Item Value Reference Range Interpretation Comments MCH (test code = MCH) 32.3 pg 27.0-31.0 [facility] CenterYeecjxzFYSBKXUPDI2346-23-10 05:53:00 Test Item Value Reference Range Interpretation Comments Hct (test code = Hct) 32.1 42.0-54.0 [facility] CenterWrhxgtaPUYXBCOVRM4682-76-20 05:53:00 Test Item Value Reference Range Interpretation Comments MCV (test code = MCV) 96.2 80.0-94.0 [facility] CenterVyupbtgIABJWMDOQS2864-01-32 05:53:00 Test Item Value Reference Range Interpretation Comments Hgb (test code = Hgb) 10.8 14.0-18.0 [facility] CenterFfzyjpnMUIJBRRQNQ1546-92-20 05:53:00 Test Item Value Reference Range Interpretation Comments Lymphocytes (test code = Lymphocytes) 7.8 20.0-40.0 [facility] CenterBhrogukPPLINDITUJ5902-57-74 05:53:00 Test Item Value Reference Range Interpretation Comments Monocytes (test code = Monocytes) 7.6 2.0-12.0 [facility] CenterIncldcoCEGIGQKQFH8952-92-61 05:53:00 Test Item Value Reference Range Interpretation Comments Eosinophils (test code = 0.6 See_Comment [A utomated message] The Eosinophils) system which ge nerated this result tra nsmitted reference range : <=4.0. The reference r renu was not used to int erpret this result as normal/abnormal . [facility] CenterBajnceqMPDUDCRWTB6792-44-61 05:53:00 Test Item Value Reference Range Interpretation Comments Neutrophils # (test code = Neutrophils 9.1 1.5-8.1 #) [facility] [id number] 05:53:00 Test Item Value Reference Range Interpretation Comments Basophils (test code = 0.2 See_Comment [Aut omated message] The Basophils) system which ge nerated this result tra nsmitted reference range : <=1.0. The reference r renu was not used to int erpret this result as normal/abnormal . [facility] CenterSaslyilDICRTQZAOT6599-40-01 05:53:00 Test Item Value Reference Range Interpretation Comments Lymphocytes # (test code = Lymphocytes 0.8 1.0-5.5 #) [facility] CenterBqqnwmmENMRYSQFPC7470-13-22 05:53:00 Test Item Value Reference Range Interpretation Comments Monocytes # (test code 0.8 See_Comment [Aut omated message] The = Monocytes #) system which generated this result tra nsmitted reference range : <=0.8. The reference r renu was not used to int erpret this result as normal/abnormal . [facility] CenterVagxpmzYIYZRVFHZQ9665-21-19 05:53:00 Test Item Value Reference Range Interpretation Comments Eosinophils # (test code 0.1 See_Comment [A utomated message] The = Eosinophils #) system whic h generated this result tra nsmitted reference range : <=0.5. The reference r renu was not used to int erpret this result as normal/abnormal . [facility] CenterOwnbrumJZUAWBOPVZ1922-14-31 05:53:00 Test Item Value Reference Range Interpretation Comments Segs (test code = Segs) 83.8 45.0-75.0 [facility] CenterLxszmasFMBMEDEHOL2309-25-37 05:53:00 Test Item Value Reference Range Interpretation Comments RBC (test code = RBC) 3.33 4.70-6.10 [facility] CenterCngplbwRRQXNSCMUA7545-23-38 05:53:00 Test Item Value Reference Range Interpretation Comments WBC (test code = WBC) 10.8 3.7-10.4 [facility] CenterGxiadirWNJXWDEKRJ1948-78-41 05:53:00 Test Item Value Reference Range Interpretation Comments RDW (test code = RDW) 15.2 11.5-14.5 [facility] CenterPvsldikXGMBNGYFFS1123-83-36 05:53:00 Test Item Value Reference Range Interpretation Comments Platelet (test code = Platelet) 118 133-450 [facility] CenterGlkxwrrSUNKWRJTBG8640-25-73 05:53:00 Test Item Value Reference Range Interpretation Comments MPV (test code = MPV) 9.6 7.4-10.4 [facility] CenterEthrcnpZBBMFTAFOH3052-03-69 05:53:00 Test Item Value Reference Range Interpretation Comments MCHC (test code = MCHC) 33.5 32.0-36.0 [facility] CenterWdqlktjNOCOLAHINM9550-95-01 05:53:00 Test Item Value Reference Range Interpretation Comments MCH (test code = MCH) 32.3 pg 27.0-31.0 [facility] CenterByiebeoYXFJSOGGWS0780-88-58 05:53:00 Test Item Value Reference Range Interpretation Comments Hct (test code = Hct) 32.1 42.0-54.0 [facility] CenterOozusaeKQDRIKRHVJ9485-75-17 05:53:00 Test Item Value Reference Range Interpretation Comments MCV (test code = MCV) 96.2 80.0-94.0 [facility] CenterWfsqqttLEGFAREOIS8485-45-84 05:53:00 Test Item Value Reference Range Interpretation Comments Hgb (test code = Hgb) 10.8 14.0-18.0 [facility] CenterYwalutjNQTANHBSHK3617-93-87 05:53:00 Test Item Value Reference Range Interpretation Comments Lymphocytes (test code = Lymphocytes) 7.8 20.0-40.0 [facility] CenterKbiwopuRGVNJAKMNN9620-02-28 05:53:00 Test Item Value Reference Range Interpretation Comments Monocytes (test code = Monocytes) 7.6 2.0-12.0 [facility] CenterPqpiwucOEZXXLZBRK3216-82-53 05:53:00 Test Item Value Reference Range Interpretation Comments Eosinophils (test code = 0.6 See_Comment [A utomated message] The Eosinophils) system which ge nerated this result tra nsmitted reference range : <=4.0. The reference r renu was not used to int erpret this result as normal/abnormal . [facility] CenterPhowsveMWSUMTXTKE8118-14-90 05:53:00 Test Item Value Reference Range Interpretation Comments Neutrophils # (test code = Neutrophils 9.1 1.5-8.1 #) [facility] CenterSpcjhkaBVHKSUDSNO3290-79-45 05:53:00 Test Item Value Reference Range Interpretation Comments Basophils (test code = 0.2 See_Comment [Aut omated message] The Basophils) system which ge nerated this result tra nsmitted reference range : <=1.0. The reference r renu was not used to int erpret this result as normal/abnormal . [facility] CenterRwjzfsjCWXZSGRKTH3620-29-57 05:53:00 Test Item Value Reference Range Interpretation Comments Lymphocytes # (test code = Lymphocytes 0.8 1.0-5.5 #) [facility] CenterYmhuhfoUNTBHHNUKP8881-49-00 05:53:00 Test Item Value Reference Range Interpretation Comments Monocytes # (test code 0.8 See_Comment [Aut omated message] The = Monocytes #) system which generated this result tra nsmitted reference range : <=0.8. The reference r renu was not used to int erpret this result as normal/abnormal . [facility] CenterDsosbifXGQQDNMHPF8475-46-98 05:53:00 Test Item Value Reference Range Interpretation Comments Eosinophils # (test code 0.1 See_Comment [A utomated message] The = Eosinophils #) system whic h generated this result tra nsmitted reference range : <=0.5. The reference r renu was not used to int erpret this result as normal/abnormal . [facility] CenterAroqkjsXFBBAFHGYJ4170-05-08 05:53:00 Test Item Value Reference Range Interpretation Comments Segs (test code = Segs) 83.8 45.0-75.0 [facility] CenterSumwnscBKAWCJJWFH5706-09-16 05:53:00 Test Item Value Reference Range Interpretation Comments RBC (test code = RBC) 3.33 4.70-6.10 [facility] CenterOxogljkNLDZKRCWUE0985-56-13 05:53:00 Test Item Value Reference Range Interpretation Comments WBC (test code = WBC) 10.8 3.7-10.4 [facility] CenterXjlhnmwYDGAVHWVBT5949-46-68 05:53:00 Test Item Value Reference Range Interpretation Comments RDW (test code = RDW) 15.2 11.5-14.5 [facility] CenterJtasgfoEJSBAQQSKZ5021-80-49 05:53:00 Test Item Value Reference Range Interpretation Comments Platelet (test code = Platelet) 118 133-450 [facility] CenterFanhczcHNECXINMNX0027-11-46 05:53:00 Test Item Value Reference Range Interpretation Comments MPV (test code = MPV) 9.6 7.4-10.4 [facility] CenterUqbhhqlPMCIUSXKBJ7749-63-87 05:53:00 Test Item Value Reference Range Interpretation Comments MCHC (test code = MCHC) 33.5 32.0-36.0 [facility] CenterWbksvjaMUBGITIQKM1240-49-32 05:53:00 Test Item Value Reference Range Interpretation Comments MCH (test code = MCH) 32.3 pg 27.0-31.0 [facility] CenterMkklxucKJYDSCKTDM4834-91-48 05:53:00 Test Item Value Reference Range Interpretation Comments Hct (test code = Hct) 32.1 42.0-54.0 [facility] CenterPqfssbnIPMQGOZZHB1290-55-36 05:53:00 Test Item Value Reference Range Interpretation Comments MCV (test code = MCV) 96.2 80.0-94.0 [facility] CenterIawcxctJEWAXRYPDE3985-27-86 05:53:00 Test Item Value Reference Range Interpretation Comments Hgb (test code = Hgb) 10.8 14.0-18.0 [facility]PT:ISOLATE:ORDQN:[id number] 19:19:00 Test Item Value Reference Range Interpretation [...] Phone Report Made To: Ivania Guzman at [facility] 8JNP At: 04/13/2018 08:13 Called By: Read Back Ok [facility]:SUSC:PT:ISOLATE:ORDQN:[id number] 19:19:00 Test Item Value Reference Range Interpretation Comments Escherichia coli (test code Escherichia coli = Escherichia coli) [facility]TAG[facility]IN[facility]SUSC:PT:ISOLATE:ORDQN:[id number] 19:19:00 Test Item Value Reference Range Interpretation Comments Culture: Urine This Report Contains A (test code = Correction Disregard Culture: Urine) 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 Corrected Report Is: >100,000 CFU/mL Escherichia coli . Upon Supplemental Testing, This Organism Was Not Found To Produce An Extended Spectrum Beta Lactamase (ESBL). Phone Report Made To: Ivania Thomas at [facility] 8[facility] At: 04/13/2018 08:13 Called By: Read Back Ok [facility]IN:SUSC:PT:ISOLATE:ORDQN:[id number] 19:19:00 Test Item Value Reference Range Interpretation Comments Escherichia coli (test code Escherichia coli = Escherichia coli) [facility]:SUSC:PT:ISOLATE:ORDQN:[id number] 19:19:00 Test Item Value Reference Range Interpretation Comments Culture: Urine This Report Contains A (test code = Correction Disregard Culture: Urine) 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 Corrected Report Is: >100,000 CFU/mL Escherichia coli . Upon Supplemental Testing, This Organism Was Not Found To Produce An Extended Spectrum Beta Lactamase (ESBL). 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 Corrected Report Is: >100,000 CFU/mL Escherichia coli . Upon Supplemental Testing, This Organism Was Not Found To Produce An Extended Spectrum Beta Lactamase (ESBL). Phone Report Made To: Ivania Thomas at [facility] 8[facility] At: 04/13/2018 08:13 Called By: Read Back [facility]IN:SUSC:PT:ISOLATE:ORDQN:[id number] 19:19:00 Test Item Value Reference Range Interpretation Comments Escherichia coli (test code Escherichia coli = Escherichia coli) [facility]:SUSC:PT:ISOLATE:ORDQN:[id number] 19:19:00 Test Item Value Reference Range Interpretation [...] Phone Report Made To: Ivania Guzman at [address] At: 04/13/2018 08:13 Called By: Read Back [facility]:SUSC:PT:ISOLATE:ORDQN:[id number] 19:19:00 Test Item Value Reference Range Interpretation Comments Escherichia coli (test code Escherichia coli = Escherichia coli) [facility]:SUSC:PT:ISOLATE:ORDQN:[id number] 19:19:00 Test Item Value Reference Range Interpretation [...] Phone Report Made To: Ivania Guzman at [facility] 8[facility] At: 04/13/2018 08:13 Called By: Read Back [facility]:SUSC:PT:ISOLATE:ORDQN:[id number] 19:19:00 Test Item Value Reference Range Interpretation Comments Escherichia coli (test code Escherichia coli = Escherichia coli) [facility]:SUSC:PT:ISOLATE:ORDQN:[id number] 19:19:00 Test Item Value Reference Range Interpretation Comments Culture: Urine This Report Contains A (test code = Correction Disregard Culture: Urine) 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 Corrected Report Is: >100,000 CFU/mL Escherichia coli . Upon Supplemental Testing, This Organism Was Not Found To Produce An Extended Spectrum Beta Lactamase (ESBL). 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 Corrected Report Is: >100,000 CFU/mL Escherichia coli . Upon Supplemental Testing, This Organism Was Not Found To Produce An Extended Spectrum Beta Lactamase (ESBL). 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 Corrected Report Is: >100,000 CFU/mL Escherichia coli . Upon Supplemental Testing, This Organism Was Not Found To Produce An Extended Spectrum Beta Lactamase (ESBL). Phone Report Made To: Mariloujosie Thomas at [address] At: 04/13/2018 08:13 Called By: Read Back [facility]:SUSC:PT:ISOLATE:ORDQN:[id number] 19:19:00 Test Item Value Reference Range Interpretation Comments Escherichia coli (test code Escherichia coli = Escherichia coli) [facility] [id number] 18:42:00 Test Item Value Reference Range Interpretation Comments U Amph Scr (test code Negative *NA*(04/09/18 = U Amph Scr) 1:42 PM) [facility] [id number] 18:42:00 Test Item Value Reference Range Interpretation Comments U Cannab Scr (test Negative *NA*(04/09/18 code = U Cannab Scr) 1:42 PM) [facility] [id number] 18:42:00 Test Item Value Reference Range Interpretation Comments U Phencyclidine Scr (test Negative code = U Phencyclidine *NA*(04/09/18 1:42 Scr) PM) [facility] [id number] 18:42:00 Test Item Value Reference Range Interpretation Comments U Opiate Scr (test Positive *ABN*(04/09/18 code = U Opiate Scr) 1:42 PM) [facility] [id number] 18:42:00 Test Item Value Reference Range Interpretation Comments UDS Note (test code = See Note (04/09/18 1:42 UDS Note) PM) [facility] [id number] 18:42:00 Test Item Value Reference Range Interpretation Comments U Maureen Scr (test code Negative *NA*(04/09/18 = U Maureen Scr) 1:42 PM) [facility] [id number] 18:42:00 Test Item Value Reference Range Interpretation Comments U Cocaine Scr (test Negative *NA*(04/09/18 code = U Cocaine Scr) 1:42 PM) [facility] [id number] 18:42:00 Test Item Value Reference Range Interpretation Comments U Benzodiaz Scr (test Negative *NA*(04/09/18 code = U Benzodiaz Scr) 1:42 PM) [facility] [id number] 18:42:00 Test Item Value Reference Range Interpretation Comments UA Urobilinogen (test code = UA <=1.0 mg/dL 0.1-1.0 Urobilinogen) [facility] [id number] 18:42:00 Test Item Value Reference Range Interpretation Comments UA Sq Epi (test code = UA Sq Epi) None Seen [facility] AND [id number] 18:42:00 Test Item Value Reference Range Interpretation Comments UA Blood (test code = Large *ABN*(04/09/18 UA Blood) 1:42 PM) [facility] AND [id number] 18:42:00 Test Item Value Reference Range Interpretation Comments UA Nitrite (test code Negative (04/09/18 1:42 = UA Nitrite) PM) [facility] AND [id number] 18:42:00 Test Item Value Reference Range Interpretation Comments UA Leuk Est (test code Large *ABN*(04/09/18 = UA Leuk Est) 1:42 PM) [facility] AND [id number] 18:42:00 Test Item Value Reference Range Interpretation Comments UA WBC (test code = no gt See_Comment [Automa karla message] The UA WBC) system which ge nerated this result transmit karla reference range : <=5. The reference range was not used to interpr et this result as parul l/abnormal. [facility] AND [id number] 18:42:00 Test Item Value Reference Range Interpretation Comments UA RBC (test code = 125 See_Comment [Automa karla message] The UA RBC) system which ge nerated this result transmit karal reference range : <=2. The reference range was not used to interpr et this result as parul l/abnormal. [facility] AND [id number] 18:42:00 Test Item Value Reference Range Interpretation Comments UA Glucose (test code = UA Negative mg/dL Glucose) [facility] AND [id number] 18:42:00 Test Item Value Reference Range Interpretation Comments UA Ketones (test code = UA Negative mg/dL Ketones) [facility] [id number] 18:42:00 Test Item Value Reference Range Interpretation Comments UA Bili (test code = Negative *NA*(04/09/18 UA Bili) 1:42 PM) [facility] AND [id number] 18:42:00 Test Item Value Reference Range Interpretation Comments UA Bacteria (test code = UA Occasional /HPF Bacteria) [facility] AND [id number] 18:42:00 Test Item Value Reference Range Interpretation Comments UA Color (test code = Yellow *NA*(04/09/18 UA Color) 1:42 PM) [facility] [id number] 18:42:00 Test Item Value Reference Range Interpretation Comments UA Turbidity (test code Marked *ABN*(04/09/18 = UA Turbidity) 1:42 PM) [facility] [id number] 18:42:00 Test Item Value Reference Range Interpretation Comments UA Spec Grav (test code = UA Spec 1.013 1 Grav) [facility] [id number] 18:42:00 Test Item Value Reference Range Interpretation Comments UA pH (test code = UA pH) 5.5 1 5.0-8.0 [facility] [id number] 18:42:00 Test Item Value Reference Range Interpretation Comments UA Protein (test code = UA Protein) 100 mg/dL [facility] [id number] 18:42:00 Test Item Value Reference Range Interpretation Comments U Amph Scr (test code Negative *NA*(04/09/18 = U Amph Scr) 1:42 PM) [facility] [id number] 18:42:00 Test Item Value Reference Range Interpretation Comments U Cannab Scr (test Negative *NA*(04/09/18 code = U Cannab Scr) 1:42 PM) [facility] [id number] 18:42:00 Test Item Value Reference Range Interpretation Comments U Phencyclidine Scr (test Negative code = U Phencyclidine *NA*(04/09/18 1:42 Scr) PM) [facility] [id number] 18:42:00 Test Item Value Reference Range Interpretation Comments U Opiate Scr (test Positive *ABN*(04/09/18 code = U Opiate Scr) 1:42 PM) [facility] [id number] 18:42:00 Test Item Value Reference Range Interpretation Comments UDS Note (test code = See Note (04/09/18 1:42 UDS Note) PM) [facility] [id number] 18:42:00 Test Item Value Reference Range Interpretation Comments U Maureen Scr (test code Negative *NA*(04/09/18 = U Maureen Scr) 1:42 PM) [facility] [id number] 18:42:00 Test Item Value Reference Range Interpretation Comments U Cocaine Scr (test Negative *NA*(04/09/18 code = U Cocaine Scr) 1:42 PM) [facility] [id number] 18:42:00 Test Item Value Reference Range Interpretation Comments U Benzodiaz Scr (test Negative *NA*(04/09/18 code = U Benzodiaz Scr) 1:42 PM) [facility] [id number] 18:42:00 Test Item Value Reference Range Interpretation Comments UA Urobilinogen (test code = UA <=1.0 mg/dL 0.1-1.0 Urobilinogen) [facility] [id number] 18:42:00 Test Item Value Reference Range Interpretation Comments UA Sq Epi (test code = UA Sq Epi) None Seen [facility] [id number] 18:42:00 Test Item Value Reference Range Interpretation Comments UA Blood (test code = Large *ABN*(04/09/18 UA Blood) 1:42 PM) [facility] [id number] 18:42:00 Test Item Value Reference Range Interpretation Comments UA Nitrite (test code Negative (04/09/18 1:42 = UA Nitrite) PM) [facility] [id number] 18:42:00 Test Item Value Reference Range Interpretation Comments UA Leuk Est (test code Large *ABN*(04/09/18 = UA Leuk Est) 1:42 PM) [facility] [id number] 18:42:00 Test Item Value Reference Range Interpretation Comments UA WBC (test code = no gt See_Comment [Automa karla message] The UA WBC) system which ge nerated this result transmit karla reference range : <=5. The reference range was not used to interpr et this result as parul l/abnormal. [facility] [id number] 18:42:00 Test Item Value Reference Range Interpretation Comments UA RBC (test code = 125 See_Comment [Automa karla message] The UA RBC) system which ge nerated this result transmit karla reference range : <=2. The reference range was not used to interpr et this result as parul l/abnormal. [facility] [id number] 18:42:00 Test Item Value Reference Range Interpretation Comments UA Glucose (test code = UA Negative mg/dL Glucose) [facility] [id number] 18:42:00 Test Item Value Reference Range Interpretation Comments UA Ketones (test code = UA Negative mg/dL Ketones) [facility] [id number] 18:42:00 Test Item Value Reference Range Interpretation Comments UA Bili (test code = Negative *NA*(04/09/18 UA Bili) 1:42 PM) [facility] [id number] 18:42:00 Test Item Value Reference Range Interpretation Comments UA Bacteria (test code = UA Occasional /HPF Bacteria) [facility] [id number] 18:42:00 Test Item Value Reference Range Interpretation Comments UA Color (test code = Yellow *NA*(04/09/18 UA Color) 1:42 PM) [facility] [id number] 18:42:00 Test Item Value Reference Range Interpretation Comments UA Turbidity (test code Marked *ABN*(04/09/18 = UA Turbidity) 1:42 PM) [facility] [id number] 18:42:00 Test Item Value Reference Range Interpretation Comments UA Spec Grav (test code = UA Spec 1.013 1 Grav) [facility] [id number] 18:42:00 Test Item Value Reference Range Interpretation Comments UA pH (test code = UA pH) 5.5 1 5.0-8.0 [facility] [id number] 18:42:00 Test Item Value Reference Range Interpretation Comments UA Protein (test code = UA Protein) 100 mg/dL [facility] [id number] 18:42:00 Test Item Value Reference Range Interpretation Comments U Amph Scr (test code Negative *NA*(04/09/18 = U Amph Scr) 1:42 PM) [facility] [id number] 18:42:00 Test Item Value Reference Range Interpretation Comments U Cannab Scr (test Negative *NA*(04/09/18 code = U Cannab Scr) 1:42 PM) [facility] [id number] 18:42:00 Test Item Value Reference Range Interpretation Comments U Phencyclidine Scr (test Negative code = U Phencyclidine *NA*(04/09/18 1:42 Scr) PM) [facility] [id number] 18:42:00 Test Item Value Reference Range Interpretation Comments U Opiate Scr (test Positive *ABN*(04/09/18 code = U Opiate Scr) 1:42 PM) [facility] [id number] 18:42:00 Test Item Value Reference Range Interpretation Comments UDS Note (test code = See Note (04/09/18 1:42 UDS Note) PM) [facility] [id number] 18:42:00 Test Item Value Reference Range Interpretation Comments U Maureen Scr (test code Negative *NA*(04/09/18 = U Maureen Scr) 1:42 PM) [facility] [id number] 18:42:00 Test Item Value Reference Range Interpretation Comments U Cocaine Scr (test Negative *NA*(04/09/18 code = U Cocaine Scr) 1:42 PM) [facility] [id number] 18:42:00 Test Item Value Reference Range Interpretation Comments U Benzodiaz Scr (test Negative *NA*(04/09/18 code = U Benzodiaz Scr) 1:42 PM) [facility] [id number] [facility]:42:00 Test Item Value Reference Range Interpretation Comments UA Urobilinogen (test code = UA <=1.0 mg/dL 0.1-1.0 Urobilinogen) [facility] [id number] 18:42:00 Test Item Value Reference Range Interpretation Comments UA Sq Epi (test code = UA Sq Epi) None [facility]en [facility] [id number] 18:42:00 Test Item Value Reference Range Interpretation Comments UA Blood (test code = Large *ABN*(04/09/18 UA Blood) 1:42 PM) [facility] [id number] 18:42:00 Test Item Value Reference Range Interpretation Comments UA Nitrite (test code Negative (04/09/18 1:42 = UA Nitrite) PM) [facility] [id number] 18:42:00 Test Item Value Reference Range Interpretation Comments UA Leuk Est (test code Large *ABN*(04/09/18 = UA Leuk Est) 1:42 PM) [facility] [id number] 18:42:00 Test Item Value Reference Range Interpretation Comments UA WBC (test code = no gt See_Comment [Automa karla message] The UA WBC) system which ge nerated this result transmit karla reference range : <=5. The reference range was not used to interpr et this result as parul l/abnormal. [facility] AND [id number] 18:42:00 Test Item Value Reference Range Interpretation Comments UA RBC (test code = 125 See_Comment [Automa karla message] The UA RBC) system which ge nerated this result transmit karla reference range : <=2. The reference range was not used to interpr et this result as parul l/abnormal. [facility] AND [id number] 18:42:00 Test Item Value Reference Range Interpretation Comments UA Glucose (test code = UA Negative mg/dL Glucose) [facility] AND [id number] 18:42:00 Test Item Value Reference Range Interpretation Comments UA Ketones (test code = UA Negative mg/dL Ketones) [facility] AND [id number] 18:42:00 Test Item Value Reference Range Interpretation Comments UA Bili (test code = Negative *NA*(04/09/18 UA Bili) 1:42 PM) [facility] AND [id number] 18:42:00 Test Item Value Reference Range Interpretation Comments UA Bacteria (test code = UA Occasional /HPF Bacteria) [facility] AND [id number] 18:42:00 Test Item Value Reference Range Interpretation Comments UA Color (test code = Yellow *NA*(04/09/18 UA Color) 1:42 PM) [facility] AND [id number] 18:42:00 Test Item Value Reference Range Interpretation Comments UA Turbidity (test code Marked *ABN*(04/09/18 = UA Turbidity) 1:42 PM) [facility] AND [id number] 18:42:00 Test Item Value Reference Range Interpretation Comments UA Spec Grav (test code = UA Spec 1.013 1 Grav) [facility] AND [id number] 18:42:00 Test Item Value Reference Range Interpretation Comments UA pH (test code = UA pH) 5.5 1 5.0-8.0 [facility] AND [id number] 18:42:00 Test Item Value Reference Range Interpretation Comments UA Protein (test code = UA Protein) 100 mg/dL [facility] [id number] 18:42:00 Test Item Value Reference Range Interpretation Comments U Amph Scr (test code Negative *NA*(04/09/18 = U Amph Scr) 1:42 PM) [facility] [id number] 18:42:00 Test Item Value Reference Range Interpretation Comments U Cannab Scr (test Negative *NA*(04/09/18 code = U Cannab Scr) 1:42 PM) [facility] [id number] 18:42:00 Test Item Value Reference Range Interpretation Comments U Phencyclidine Scr (test Negative code = U Phencyclidine *NA*(04/09/18 1:42 Scr) PM) [facility] [id number] 18:42:00 Test Item Value Reference Range Interpretation Comments U Opiate Scr (test Positive *ABN*(04/09/18 code = U Opiate Scr) 1:42 PM) [facility] [id number] 18:42:00 Test Item Value Reference Range Interpretation Comments UDS Note (test code = See Note (04/09/18 1:42 UDS Note) PM) [facility] [id number] 18:42:00 Test Item Value Reference Range Interpretation Comments U Maureen Scr (test code Negative *NA*(04/09/18 = U Maureen Scr) 1:42 PM) [facility] [id number] 18:42:00 Test Item Value Reference Range Interpretation Comments U Cocaine Scr (test Negative *NA*(04/09/18 code = U Cocaine Scr) 1:42 PM) [facility] [id number] 18:42:00 Test Item Value Reference Range Interpretation Comments U Benzodiaz Scr (test Negative *NA*(04/09/18 code = U Benzodiaz Scr) 1:42 PM) [facility] [id number] 18:42:00 Test Item Value Reference Range Interpretation Comments UA Urobilinogen (test code = UA <=1.0 mg/dL 0.1-1.0 Urobilinogen) [facility] [id number] 18:42:00 Test Item Value Reference Range Interpretation Comments UA Sq Epi (test code = UA Sq Epi) None Seen [facility] AND [id number] 18:42:00 Test Item Value Reference Range Interpretation Comments UA Blood (test code = Large *ABN*(04/09/18 UA Blood) 1:42 PM) [facility] AND [id number] 18:42:00 Test Item Value Reference Range Interpretation Comments UA Nitrite (test code Negative (04/09/18 1:42 = UA Nitrite) PM) [facility] AND [id number] 18:42:00 Test Item Value Reference Range Interpretation Comments UA Leuk Est (test code Large *ABN*(04/09/18 = UA Leuk Est) 1:42 PM) [facility] AND [id number] 18:42:00 Test Item Value Reference Range Interpretation Comments UA WBC (test code = no gt See_Comment [Automa karla message] The UA WBC) system which ge nerated this result transmit karla reference range : <=5. The reference range was not used to interpr et this result as parul l/abnormal. [facility] AND [id number] 18:42:00 Test Item Value Reference Range Interpretation Comments UA RBC (test code = 125 See_Comment [Automa karla message] The UA RBC) system which ge nerated this result transmit karla reference range : <=2. The reference range was not used to interpr et this result as parul l/abnormal. [facility] AND [id number] 18:42:00 Test Item Value Reference Range Interpretation Comments UA Glucose (test code = UA Negative mg/dL Glucose) [facility] AND [id number] 18:42:00 Test Item Value Reference Range Interpretation Comments UA Ketones (test code = UA Negative mg/dL Ketones) [facility] AND [id number] 18:42:00 Test Item Value Reference Range Interpretation Comments UA Bili (test code = Negative *NA*(04/09/18 UA Bili) 1:42 PM) [facility] AND [id number] 18:42:00 Test Item Value Reference Range Interpretation Comments UA Bacteria (test code = UA Occasional /HPF Bacteria) [facility] AND [id number] 18:42:00 Test Item Value Reference Range Interpretation Comments UA Color (test code = Yellow *NA*(04/09/18 UA Color) 1:42 PM) [facility] [id number] 18:42:00 Test Item Value Reference Range Interpretation Comments UA Turbidity (test code Marked *ABN*(04/09/18 = UA Turbidity) 1:42 PM) [facility] [id number] 18:42:00 Test Item Value Reference Range Interpretation Comments UA Spec Grav (test code = UA Spec 1.013 1 Grav) [facility] [id number] 18:42:00 Test Item Value Reference Range Interpretation Comments UA pH (test code = UA pH) 5.5 1 5.0-8.0 [facility] [id number] 18:42:00 Test Item Value Reference Range Interpretation Comments UA Protein (test code = UA Protein) 100 mg/dL [facility] [id number] 18:42:00 Test Item Value Reference Range Interpretation Comments U Amph Scr (test code Negative *NA*(04/09/18 = U Amph Scr) 1:42 PM) [facility] [id number] 18:42:00 Test Item Value Reference Range Interpretation Comments U Cannab Scr (test Negative *NA*(04/09/18 code = U Cannab Scr) 1:42 PM) [facility] [id number] 18:42:00 Test Item Value Reference Range Interpretation Comments U Phencyclidine Scr (test Negative code = U Phencyclidine *NA*(04/09/18 1:42 Scr) PM) [facility] [id number] 18:42:00 Test Item Value Reference Range Interpretation Comments U Opiate Scr (test Positive *ABN*(04/09/18 code = U Opiate Scr) 1:42 PM) [facility] [id number] 18:42:00 Test Item Value Reference Range Interpretation Comments UDS Note (test code = See Note (04/09/18 1:42 UDS Note) PM) [facility] [id number] 18:42:00 Test Item Value Reference Range Interpretation Comments U Maureen Scr (test code Negative *NA*(04/09/18 = U Maureen Scr) 1:42 PM) [facility] [id number] 18:42:00 Test Item Value Reference Range Interpretation Comments U Cocaine Scr (test Negative *NA*(04/09/18 code = U Cocaine Scr) 1:42 PM) [facility] [id number] 18:42:00 Test Item Value Reference Range Interpretation Comments U Benzodiaz Scr (test Negative *NA*(04/09/18 code = U Benzodiaz Scr) 1:42 PM) [facility] [id number] 18:42:00 Test Item Value Reference Range Interpretation Comments UA Urobilinogen (test code = UA <=1.0 mg/dL 0.1-1.0 Urobilinogen) [facility] [id number] 18:42:00 Test Item Value Reference Range Interpretation Comments UA Sq Epi (test code = UA Sq Epi) None [facility]en [facility] [id number] 18:42:00 Test Item Value Reference Range Interpretation Comments UA Blood (test code = Large *ABN*(04/09/18 UA Blood) 1:42 PM) [facility] [id number] 18:42:00 Test Item Value Reference Range Interpretation Comments UA Nitrite (test code Negative (04/09/18 1:42 = UA Nitrite) PM) [facility] [id number] 18:42:00 Test Item Value Reference Range Interpretation Comments UA Leuk Est (test code Large *ABN*(04/09/18 = UA Leuk Est) 1:42 PM) [facility] [id number] 18:42:00 Test Item Value Reference Range Interpretation Comments UA WBC (test code = no gt See_Comment [Automa karla message] The UA WBC) system which ge nerated this result transmit karla reference range : <=5. The reference range was not used to interpr et this result as parul l/abnormal. [facility] [id number] 18:42:00 Test Item Value Reference Range Interpretation Comments UA RBC (test code = 125 See_Comment [Automa karla message] The UA RBC) system which ge nerated this result transmit karla reference range : <=2. The reference range was not used to interpr et this result as parul l/abnormal. [facility] [id number] 18:42:00 Test Item Value Reference Range Interpretation Comments UA Glucose (test code = UA Negative mg/dL Glucose) [facility] [id number] 18:42:00 Test Item Value Reference Range Interpretation Comments UA Ketones (test code = UA Negative mg/dL Ketones) [facility] [id number] 18:42:00 Test Item Value Reference Range Interpretation Comments UA Bili (test code = Negative *NA*(04/09/18 UA Bili) 1:42 PM) [facility] [id number] 18:42:00 Test Item Value Reference Range Interpretation Comments UA Bacteria (test code = UA Occasional /HPF Bacteria) [facility] [id number] 18:42:00 Test Item Value Reference Range Interpretation Comments UA Color (test code = Yellow *NA*(04/09/18 UA Color) 1:42 PM) [facility] [id number] 18:42:00 Test Item Value Reference Range Interpretation Comments UA Turbidity (test code Marked *ABN*(04/09/18 = UA Turbidity) 1:42 PM) [facility] [id number] 18:42:00 Test Item Value Reference Range Interpretation Comments UA Spec Grav (test code = UA Spec 1.013 1 Grav) [facility] [id number] 18:42:00 Test Item Value Reference Range Interpretation Comments UA pH (test code = UA pH) 5.5 1 5.0-8.0 [facility] [id number] 18:42:00 Test Item Value Reference Range Interpretation Comments UA Protein (test code = UA Protein) 100 mg/dL [facility] [id number] 18:42:00 Test Item Value Reference Range Interpretation Comments U Amph Scr (test code Negative *NA*(04/09/18 = U Amph Scr) 1:42 PM) [facility] [id number] 18:42:00 Test Item Value Reference Range Interpretation Comments U Cannab Scr (test Negative *NA*(04/09/18 code = U Cannab Scr) 1:42 PM) [facility] [id number] 18:42:00 Test Item Value Reference Range Interpretation Comments U Phencyclidine Scr (test Negative code = U Phencyclidine *NA*(04/09/18 1:42 Scr) PM) [facility] [id number] 18:42:00 Test Item Value Reference Range Interpretation Comments U Opiate Scr (test Positive *ABN*(04/09/18 code = U Opiate Scr) 1:42 PM) [facility] [id number] 18:42:00 Test Item Value Reference Range Interpretation Comments UDS Note (test code = See Note (04/09/18 1:42 UDS Note) PM) [facility] [id number] 18:42:00 Test Item Value Reference Range Interpretation Comments U Maureen Scr (test code Negative *NA*(04/09/18 = U Maureen Scr) 1:42 PM) [facility] [id number] 18:42:00 Test Item Value Reference Range Interpretation Comments U Cocaine Scr (test Negative *NA*(04/09/18 code = U Cocaine Scr) 1:42 PM) [facility] [id number] 18:42:00 Test Item Value Reference Range Interpretation Comments U Benzodiaz Scr (test Negative *NA*(04/09/18 code = U Benzodiaz Scr) 1:42 PM) [facility] [id number] 18:42:00 Test Item Value Reference Range Interpretation Comments UA Urobilinogen (test code = UA <=1.0 mg/dL 0.1-1.0 Urobilinogen) [facility] [id number] 18:42:00 Test Item Value Reference Range Interpretation Comments UA Sq Epi (test code = UA Sq Epi) None [facility]en [facility] [id number] 18:42:00 Test Item Value Reference Range Interpretation Comments UA Blood (test code = Large *ABN*(04/09/18 UA Blood) 1:42 PM) [facility] [id number] 18:42:00 Test Item Value Reference Range Interpretation Comments UA Nitrite (test code Negative (04/09/18 1:42 = UA Nitrite) PM) [facility] [id number] 18:42:00 Test Item Value Reference Range Interpretation Comments UA Leuk Est (test code Large *ABN*(04/09/18 = UA Leuk Est) 1:42 PM) [facility] [id number] 18:42:00 Test Item Value Reference Range Interpretation Comments UA WBC (test code = no gt See_Comment [Automa karla message] The UA WBC) system which ge nerated this result transmit karla reference range : <=5. The reference range was not used to interpr et this result as parul l/abnormal. [facility] AND [id number] 18:42:00 Test Item Value Reference Range Interpretation Comments UA RBC (test code = 125 See_Comment [Automa karla message] The UA RBC) system which ge nerated this result transmit karla reference range : <=2. The reference range was not used to interpr et this result as parul l/abnormal. [facility] AND [id number] 18:42:00 Test Item Value Reference Range Interpretation Comments UA Glucose (test code = UA Negative mg/dL Glucose) [facility] AND [id number] 18:42:00 Test Item Value Reference Range Interpretation Comments UA Ketones (test code = UA Negative mg/dL Ketones) [facility] [id number] 18:42:00 Test Item Value Reference Range Interpretation Comments UA Bili (test code = Negative *NA*(04/09/18 UA Bili) 1:42 PM) [facility] [id number] 18:42:00 Test Item Value Reference Range Interpretation Comments UA Bacteria (test code = UA Occasional /HPF Bacteria) [facility] [id number] 18:42:00 Test Item Value Reference Range Interpretation Comments UA Color (test code = Yellow *NA*(04/09/18 UA Color) 1:42 PM) [facility] [id number] 18:42:00 Test Item Value Reference Range Interpretation Comments UA Turbidity (test code Marked *ABN*(04/09/18 = UA Turbidity) 1:42 PM) [facility] [id number] 18:42:00 Test Item Value Reference Range Interpretation Comments UA Spec Grav (test code = UA Spec 1.013 1 Grav) [facility] [id number] 18:42:00 Test Item Value Reference Range Interpretation Comments UA pH (test code = UA pH) 5.5 1 5.0-8.0 [facility] [id number] 18:42:00 Test Item Value Reference Range Interpretation Comments UA Protein (test code = UA Protein) 100 mg/dL [facility] [id number] 18:42:00 Test Item Value Reference Range Interpretation Comments U Amph Scr (test code Negative *NA*(04/09/18 = U Amph Scr) 1:42 PM) [facility] [id number] 18:42:00 Test Item Value Reference Range Interpretation Comments U Cannab Scr (test Negative *NA*(04/09/18 code = U Cannab Scr) 1:42 PM) [facility] [id number] 18:42:00 Test Item Value Reference Range Interpretation Comments U Phencyclidine Scr (test Negative code = U Phencyclidine *NA*(04/09/18 1:42 Scr) PM) [facility] [id number] 18:42:00 Test Item Value Reference Range Interpretation Comments U Opiate Scr (test Positive *ABN*(04/09/18 code = U Opiate Scr) 1:42 PM) [facility] [id number] 18:42:00 Test Item Value Reference Range Interpretation Comments UDS Note (test code = See Note (04/09/18 1:42 UDS Note) PM) [facility] [id number] 18:42:00 Test Item Value Reference Range Interpretation Comments U Maureen Scr (test code Negative *NA*(04/09/18 = U Maureen Scr) 1:42 PM) [facility] [id number] 18:42:00 Test Item Value Reference Range Interpretation Comments U Cocaine Scr (test Negative *NA*(04/09/18 code = U Cocaine Scr) 1:42 PM) [facility] [id number] 18:42:00 Test Item Value Reference Range Interpretation Comments U Benzodiaz Scr (test Negative *NA*(04/09/18 code = U Benzodiaz Scr) 1:42 PM) [facility] [id number] 18:42:00 Test Item Value Reference Range Interpretation Comments UA Urobilinogen (test code = UA <=1.0 mg/dL 0.1-1.0 Urobilinogen) [facility] [id number] 18:42:00 Test Item Value Reference Range Interpretation Comments UA Sq Epi (test code = UA Sq Epi) None Seen [facility] AND [id number] 18:42:00 Test Item Value Reference Range Interpretation Comments UA Blood (test code = Large *ABN*(04/09/18 UA Blood) 1:42 PM) [facility] [id number] 18:42:00 Test Item Value Reference Range Interpretation Comments UA Nitrite (test code Negative (04/09/18 1:42 = UA Nitrite) PM) [facility] AND [id number] 18:42:00 Test Item Value Reference Range Interpretation Comments UA Leuk Est (test code Large *ABN*(04/09/18 = UA Leuk Est) 1:42 PM) [facility] [id number] 18:42:00 Test Item Value Reference Range Interpretation Comments UA WBC (test code = no gt See_Comment [Automa karla message] The UA WBC) system which ge nerated this result transmit karla reference range : <=5. The reference range was not used to interpr et this result as parul l/abnormal. [facility] [id number] 18:42:00 Test Item Value Reference Range Interpretation Comments UA RBC (test code = 125 See_Comment [Automa karla message] The UA RBC) system which ge nerated this result transmit karla reference range : <=2. The reference range was not used to interpr et this result as parul l/abnormal. [facility] [id number] 18:42:00 Test Item Value Reference Range Interpretation Comments UA Glucose (test code = UA Negative mg/dL Glucose) [facility] [id number] 18:42:00 Test Item Value Reference Range Interpretation Comments UA Ketones (test code = UA Negative mg/dL Ketones) [facility] AND [id number] 18:42:00 Test Item Value Reference Range Interpretation Comments UA Bili (test code = Negative *NA*(04/09/18 UA Bili) 1:42 PM) [facility] [id number] 18:42:00 Test Item Value Reference Range Interpretation Comments UA Bacteria (test code = UA Occasional /HPF Bacteria) [facility] [id number] 18:42:00 Test Item Value Reference Range Interpretation Comments UA Color (test code = Yellow *NA*(04/09/18 UA Color) 1:42 PM) [facility] [id number] 18:42:00 Test Item Value Reference Range Interpretation Comments UA Turbidity (test code Marked *ABN*(04/09/18 = UA Turbidity) 1:42 PM) [facility] [id number] 18:42:00 Test Item Value Reference Range Interpretation Comments UA Spec Grav (test code = UA Spec 1.013 1 Grav) [facility] [id number] 18:42:00 Test Item Value Reference Range Interpretation Comments UA pH (test code = UA pH) 5.5 1 5.0-8.0 [facility] [id number] 18:42:00 Test Item Value Reference Range Interpretation Comments UA Protein (test code = UA Protein) 100 mg/dL [facility] [id number] 18:42:00 Test Item Value Reference Range Interpretation Comments U Amph Scr (test code Negative *NA*(04/09/18 = U Amph Scr) 1:42 PM) [facility] [id number] 18:42:00 Test Item Value Reference Range Interpretation Comments U Cannab Scr (test Negative *NA*(04/09/18 code = U Cannab Scr) 1:42 PM) [facility] [id number] 18:42:00 Test Item Value Reference Range Interpretation Comments U Phencyclidine Scr (test Negative code = U Phencyclidine *NA*(04/09/18 1:42 Scr) PM) [facility] [id number] 18:42:00 Test Item Value Reference Range Interpretation Comments U Opiate Scr (test Positive *ABN*(04/09/18 code = U Opiate Scr) 1:42 PM) [facility] [id number] 18:42:00 Test Item Value Reference Range Interpretation Comments UDS Note (test code = See Note (04/09/18 1:42 UDS Note) PM) [facility] [id number] 18:42:00 Test Item Value Reference Range Interpretation Comments U Maureen Scr (test code Negative *NA*(04/09/18 = U Maureen Scr) 1:42 PM) [facility] [id number] 18:42:00 Test Item Value Reference Range Interpretation Comments U Cocaine Scr (test Negative *NA*(04/09/18 code = U Cocaine Scr) 1:42 PM) [facility] [id number] 18:42:00 Test Item Value Reference Range Interpretation Comments U Benzodiaz Scr (test Negative *NA*(04/09/18 code = U Benzodiaz Scr) 1:42 PM) [facility] [id number] 18:42:00 Test Item Value Reference Range Interpretation Comments UA Urobilinogen (test code = UA <=1.0 mg/dL 0.1-1.0 Urobilinogen) [facility] [id number] 18:42:00 Test Item Value Reference Range Interpretation Comments UA Sq Epi (test code = UA Sq Epi) None [facility]en [facility] [id number] 18:42:00 Test Item Value Reference Range Interpretation Comments UA Blood (test code = Large *ABN*(04/09/18 UA Blood) 1:42 PM) [facility] [id number] 18:42:00 Test Item Value Reference Range Interpretation Comments UA Nitrite (test code Negative (04/09/18 1:42 = UA Nitrite) PM) [facility] [id number] 18:42:00 Test Item Value Reference Range Interpretation Comments UA Leuk Est (test code Large *ABN*(04/09/18 = UA Leuk Est) 1:42 PM) [facility] [id number] 18:42:00 Test Item Value Reference Range Interpretation Comments UA WBC (test code = no gt See_Comment [Automa karla message] The UA WBC) system which ge nerated this result transmit karla reference range : <=5. The reference range was not used to interpr et this result as parul l/abnormal. [facility] [id number] 18:42:00 Test Item Value Reference Range Interpretation Comments UA RBC (test code = 125 See_Comment [Automa karla message] The UA RBC) system which ge nerated this result transmit karla reference range : <=2. The reference range was not used to interpr et this result as parul l/abnormal. [facility] [id number] 18:42:00 Test Item Value Reference Range Interpretation Comments UA Glucose (test code = UA Negative mg/dL Glucose) [facility] [id number] 18:42:00 Test Item Value Reference Range Interpretation Comments UA Ketones (test code = UA Negative mg/dL Ketones) [facility] [id number] 18:42:00 Test Item Value Reference Range Interpretation Comments UA Bili (test code = Negative *NA*(04/09/18 UA Bili) 1:42 PM) [facility] [id number] 18:42:00 Test Item Value Reference Range Interpretation Comments UA Bacteria (test code = UA Occasional /HPF Bacteria) [facility] [id number] 18:42:00 Test Item Value Reference Range Interpretation Comments UA Color (test code = Yellow *NA*(04/09/18 UA Color) 1:42 PM) [facility] [id number] 18:42:00 Test Item Value Reference Range Interpretation Comments UA Turbidity (test code Marked *ABN*(04/09/18 = UA Turbidity) 1:42 PM) [facility] [id number] 18:42:00 Test Item Value Reference Range Interpretation Comments UA Spec Grav (test code = UA Spec 1.013 1 Grav) [facility] AND [id number] 18:42:00 Test Item Value Reference Range Interpretation Comments UA pH (test code = UA pH) 5.5 1 5.0-8.0 [facility] [id number] 18:42:00 Test Item Value Reference Range Interpretation Comments UA Protein (test code = UA Protein) 100 mg/dL [facility] [id number] 18:42:00 Test Item Value Reference Range Interpretation Comments U Amph Scr (test code Negative *NA*(04/09/18 = U Amph Scr) 1:42 PM) [facility] [id number] 18:42:00 Test Item Value Reference Range Interpretation Comments U Cannab Scr (test Negative *NA*(04/09/18 code = U Cannab Scr) 1:42 PM) [facility] [id number] 18:42:00 Test Item Value Reference Range Interpretation Comments U Phencyclidine Scr (test Negative code = U Phencyclidine *NA*(04/09/18 1:42 Scr) PM) [facility] [id number] 18:42:00 Test Item Value Reference Range Interpretation Comments U Opiate Scr (test Positive *ABN*(04/09/18 code = U Opiate Scr) 1:42 PM) [facility] [id number] 18:42:00 Test Item Value Reference Range Interpretation Comments UDS Note (test code = See Note (04/09/18 1:42 UDS Note) PM) [facility] [id number] 18:42:00 Test Item Value Reference Range Interpretation Comments U Maureen Scr (test code Negative *NA*(04/09/18 = U Maureen Scr) 1:42 PM) [facility] [id number] 18:42:00 Test Item Value Reference Range Interpretation Comments U Cocaine Scr (test Negative *NA*(04/09/18 code = U Cocaine Scr) 1:42 PM) [facility] [id number] 18:42:00 Test Item Value Reference Range Interpretation Comments U Benzodiaz Scr (test Negative *NA*(04/09/18 code = U Benzodiaz Scr) 1:42 PM) [facility] [id number] 18:42:00 Test Item Value Reference Range Interpretation Comments UA Urobilinogen (test code = UA <=1.0 mg/dL 0.1-1.0 Urobilinogen) [facility] [id number] 18:42:00 Test Item Value Reference Range Interpretation Comments UA Sq Epi (test code = UA Sq Epi) None Seen [facility] [id number] 18:42:00 Test Item Value Reference Range Interpretation Comments UA Blood (test code = Large *ABN*(04/09/18 UA Blood) 1:42 PM) [facility] [id number] 18:42:00 Test Item Value Reference Range Interpretation Comments UA Nitrite (test code Negative (04/09/18 1:42 = UA Nitrite) PM) [facility] [id number] 18:42:00 Test Item Value Reference Range Interpretation Comments UA Leuk Est (test code Large *ABN*(04/09/18 = UA Leuk Est) 1:42 PM) [facility] AND [id number] 18:42:00 Test Item Value Reference Range Interpretation Comments UA WBC (test code = no gt See_Comment [Automa karla message] The UA WBC) system which ge nerated this result transmit karla reference range : <=5. The reference range was not used to interpr et this result as parul l/abnormal. [facility] AND [id number] 18:42:00 Test Item Value Reference Range Interpretation Comments UA RBC (test code = 125 See_Comment [Automa karla message] The UA RBC) system which ge nerated this result transmit karla reference range : <=2. The reference range was not used to interpr et this result as parul l/abnormal. [facility] AND [id number] 18:42:00 Test Item Value Reference Range Interpretation Comments UA Glucose (test code = UA Negative mg/dL Glucose) [facility] AND [id number] 18:42:00 Test Item Value Reference Range Interpretation Comments UA Ketones (test code = UA Negative mg/dL Ketones) [facility] AND [id number] 18:42:00 Test Item Value Reference Range Interpretation Comments UA Bili (test code = Negative *NA*(04/09/18 UA Bili) 1:42 PM) [facility] AND [id number] 18:42:00 Test Item Value Reference Range Interpretation Comments UA Bacteria (test code = UA Occasional /HPF Bacteria) [facility] AND [id number] 18:42:00 Test Item Value Reference Range Interpretation Comments UA Color (test code = Yellow *NA*(04/09/18 UA Color) 1:42 PM) [facility] AND [id number] 18:42:00 Test Item Value Reference Range Interpretation Comments UA Turbidity (test code Marked *ABN*(04/09/18 = UA Turbidity) 1:42 PM) [facility] AND [id number] 18:42:00 Test Item Value Reference Range Interpretation Comments UA Spec Grav (test code = UA Spec 1.013 1 Grav) [facility] AND [id number] 18:42:00 Test Item Value Reference Range Interpretation Comments UA pH (test code = UA pH) 5.5 1 5.0-8.0 [facility]2018-07-14 18:42:00 Test Item Value Reference Range Interpretation Comments UA Protein (test code = UA Protein) 100 mg/dL [facility] [id number] 10:37:00 Test Item Value Reference Range Interpretation Comments Basophils (test code = 0.2 See_Comment [Aut omated message] The Basophils) system which ge nerated this result tra nsmitted reference range : <=1.0. The reference r renu was not used to int erpret this result as normal/abnormal . [facility] [id number] 10:37:00 Test Item Value Reference Range Interpretation Comments Eosinophils (test code = 0.8 See_Comment [A utomated message] The Eosinophils) system which ge nerated this result tra nsmitted reference range : <=4.0. The reference r renu was not used to int erpret this result as normal/abnormal . [facility] [id number] 10:37:00 Test Item Value Reference Range Interpretation Comments Eosinophils # (test code 0.1 See_Comment [A utomated message] The = Eosinophils #) system whic h generated this result tra nsmitted reference range : <=0.5. The reference r renu was not used to int erpret this result as normal/abnormal . [facility] [id number] 10:37:00 Test Item Value Reference Range Interpretation Comments Basophils (test code = 0.2 See_Comment [Aut omated message] The Basophils) system which ge nerated this result tra nsmitted reference range : <=1.0. The reference r renu was not used to int erpret this result as normal/abnormal . [facility] [id number] 10:37:00 Test Item Value Reference Range Interpretation Comments Eosinophils (test code = 0.8 See_Comment [A utomated message] The Eosinophils) system which ge nerated this result tra nsmitted reference range : <=4.0. The reference r renu was not used to int erpret this result as normal/abnormal . [facility] [id number] 10:37:00 Test Item Value Reference Range Interpretation Comments Eosinophils # (test code 0.1 See_Comment [A utomated message] The = Eosinophils #) system [facility] [employer] generated this result tra nsmitted reference range : <=0.5. The reference r renu was not used to int erpret this result as normal/abnormal . [facility] [id number] 10:37:00 Test Item Value Reference Range Interpretation Comments Basophils (test code = 0.2 See_Comment [Aut omated message] The Basophils) system which ge nerated this result tra nsmitted reference range : <=1.0. The reference r renu was not used to int erpret this result as normal/abnormal . [facility] [id number] 10:37:00 Test Item Value Reference Range Interpretation Comments Eosinophils (test code = 0.8 See_Comment [A utomated message] The Eosinophils) system which ge nerated this result tra nsmitted reference range : <=4.0. The reference r renu was not used to int erpret this result as normal/abnormal . [facility] [id number] 10:37:00 Test Item Value Reference Range Interpretation Comments Eosinophils # (test code 0.1 See_Comment [A utomated message] The = Eosinophils #) system [facility] [employer] generated this result tra nsmitted reference range : <=0.5. The reference r renu was not used to int erpret this result as normal/abnormal . [facility] [id number] 10:37:00 Test Item Value Reference Range Interpretation Comments Basophils (test code = 0.2 See_Comment [Aut omated message] The Basophils) system which ge nerated this result tra nsmitted reference range : <=1.0. The reference r renu was not used to int erpret this result as normal/abnormal . [facility] [id number] 10:37:00 Test Item Value Reference Range Interpretation Comments Eosinophils (test code = 0.8 See_Comment [A utomated message] The Eosinophils) system which ge nerated this result tra nsmitted reference range : <=4.0. The reference r renu was not used to int erpret this result as normal/abnormal . [facility] [id number] 10:37:00 Test Item Value Reference Range Interpretation Comments Eosinophils # (test code 0.1 See_Comment [A utomated message] The = Eosinophils #) system [employer] generated this result tra nsmitted reference range : <=0.5. The reference r renu was not used to int erpret this result as normal/abnormal . [facility] [id number] 10:37:00 Test Item Value Reference Range Interpretation Comments Basophils (test code = 0.2 See_Comment [Aut omated message] The Basophils) system which ge nerated this result tra nsmitted reference range : <=1.0. The reference r renu was not used to int erpret this result as normal/abnormal . [facility] [id number] 10:37:00 Test Item Value Reference Range Interpretation Comments Eosinophils (test code = 0.8 See_Comment [A utomated message] The Eosinophils) system which ge nerated this result tra nsmitted reference range : <=4.0. The reference r renu was not used to int erpret this result as normal/abnormal . [facility] [id number] 10:37:00 Test Item Value Reference Range Interpretation Comments Eosinophils # (test code 0.1 See_Comment [A utomated message] The = Eosinophils #) system [employer] generated this result tra nsmitted reference range : <=0.5. The reference r renu was not used to int erpret this result as normal/abnormal . [facility] [id number] 10:37:00 Test Item Value Reference Range Interpretation Comments Basophils (test code = 0.2 See_Comment [Aut omated message] The Basophils) system which ge nerated this result tra nsmitted reference range : <=1.0. The reference r renu was not used to int erpret this result as normal/abnormal . [facility] [id number] 10:37:00 Test Item Value Reference Range Interpretation Comments Eosinophils (test code = 0.8 See_Comment [A utomated message] The Eosinophils) system which ge nerated this result tra nsmitted reference range : <=4.0. The reference r renu was not used to int erpret this result as normal/abnormal . [facility] [id number] 10:37:00 Test Item Value Reference Range Interpretation Comments Eosinophils # (test code 0.1 See_Comment [A utomated message] The = Eosinophils #) system [employer] generated this result tra nsmitted reference range : <=0.5. The reference r renu was not used to int erpret this result as normal/abnormal . [facility] CenterEtvzhctEGNCVONXAF2446-05-00 10:37:00 Test Item Value Reference Range Interpretation Comments Basophils (test code = 0.2 See_Comment [Aut omated message] The Basophils) system which ge nerated this result tra nsmitted reference range : <=1.0. The reference r renu was not used to int erpret this result as normal/abnormal . [facility] C[id number] 10:37:00 Test Item Value Reference Range Interpretation Comments Eosinophils (test code = 0.8 See_Comment [A utomated message] The Eosinophils) system which ge nerated this result tra nsmitted reference range : <=4.0. The reference r renu was not used to int erpret this result as normal/abnormal . [facility] [id number] 10:37:00 Test Item Value Reference Range Interpretation Comments Eosinophils # (test code 0.1 See_Comment [A utomated message] The = Eosinophils #) system [employer] generated this result tra nsmitted reference range : <=0.5. The reference r renu was not used to int erpret this result as normal/abnormal . [facility] [id number] 10:37:00 Test Item Value Reference Range Interpretation Comments Basophils (test code = 0.2 See_Comment [Aut omated message] The Basophils) system which ge nerated this result tra nsmitted reference range : <=1.0. The reference r renu was not used to int erpret this result as normal/abnormal . [facility] C[id number] 10:37:00 Test Item Value Reference Range Interpretation Comments Eosinophils (test code = 0.8 See_Comment [A utomated message] The Eosinophils) system which ge nerated this result tra nsmitted reference range : <=4.0. The reference r renu was not used to int erpret this result as normal/abnormal . [facility] Cent[id number] 10:37:00 Test Item Value Reference Range Interpretation Comments Eosinophils # (test code 0.1 See_Comment [A utomated message] The = Eosinophils #) system [employer] generated this result tra nsmitted reference range : <=0.5. The reference r renu was not used to int erpret this result as normal/abnormal . [facility] C[id number] 10:37:00 Test Item Value Reference Range Interpretation Comments Basophils (test code = 0.2 See_Comment [Aut omated message] The Basophils) system which ge nerated this result tra nsmitted reference range : <=1.0. The reference r renu was not used to int erpret this result as normal/abnormal . [facility] Cent[id number] 10:37:00 Test Item Value Reference Range Interpretation Comments Eosinophils (test code = 0.8 See_Comment [A utomated message] The Eosinophils) system which ge nerated this result tra nsmitted reference range : <=4.0. The reference r renu was not used to int erpret this result as normal/abnormal . [facility] CenterWemujaxLUUVMCJZNJ6278-04-62 10:37:00 Test Item Value Reference Range Interpretation Comments Eosinophils # (test code 0.1 See_Comment [A utomated message] The = Eosinophils #) system whic h generated this result tra nsmitted reference range : <=0.5. The reference r renu was not used to int erpret this result as normal/abnormal . [facility] AND [id number] 05:20:00 Test Item Value Reference Range Interpretation Comments UA Hyal Cast 6-10 (04/08/18 See_Comment [Automated me ssage] (test code = UA 12:20 AM) The system w hich Hyal Cast) generated this result transmitted ref erence range: <=2. The reference range was not used to int erpret this result as normal/abnormal . [facility] AND [id number] 05:20:00 Test Item Value Reference Range Interpretation Comments UA Coarse Gran (test code = UA 6-10 /LPF Coarse Gran) [facility] AND [id number] 05:20:00 Test Item Value Reference Range Interpretation Comments UA Color (test code = Yellow *NA*(04/08/18 UA Color) 12:20 AM) [facility] AND [id number] 05:20:00 Test Item Value Reference Range Interpretation Comments UA Glucose (test code Negative (04/08/18 12:20 = UA Glucose) AM) [facility] AND [id number] 05:20:00 Test Item Value Reference Range Interpretation Comments UA Protein (test code = UA Protein) 30 mg/dL [facility] AND [id number] 05:20:00 Test Item Value Reference Range Interpretation Comments UA pH (test code = UA pH) 5.5 1 5.0-8.0 [facility] AND [id number] 05:20:00 Test Item Value Reference Range Interpretation Comments UA Spec Grav (test code = UA Spec 1.025 1 Grav) [facility] AND [id number] 05:20:00 Test Item Value Reference Range Interpretation Comments UA Turbidity (test code Slight Cloudy = UA Turbidity) (04/08/18 12:20 AM) [facility] AND [id number] 05:20:00 Test Item Value Reference Range Interpretation Comments UA Nitrite (test code Negative (04/08/18 12:20 = UA Nitrite) AM) [facility] AND [id number] 05:20:00 Test Item Value Reference Range Interpretation Comments UA Urobilinogen (test code = UA 0.2 0.1-1.0 Urobilinogen) [facility] AND [id number] 05:20:00 Test Item Value Reference Range Interpretation Comments UA Blood (test code = Large *ABN*(04/08/18 UA Blood) 12:20 AM) [facility] AND [id number] 05:20:00 Test Item Value Reference Range Interpretation Comments UA Bili (test code = Negative *NA*(04/08/18 UA Bili) 12:20 AM) [facility] AND [id number] 05:20:00 Test Item Value Reference Range Interpretation Comments UA Ketones (test code Negative *NA*(04/08/18 = UA Ketones) 12:20 AM) [facility] AND [id number] 05:20:00 Test Item Value Reference Range Interpretation Comments UA Bacteria (test code = UA Few /HPF Bacteria) [facility] AND [id number] 05:20:00 Test Item Value Reference Range Interpretation Comments UA RBC (test code 21-50 /HPF See_Comment [Automate d message] The = UA RBC) system which ge nerated this result tra nsmitted reference range : <=2. The reference range was not used to interpr et this result as normal/abnormal . [facility] [id number] 05:20:00 Test Item Value Reference Range Interpretation Comments UA WBC (test code = UA WBC) 1-3 [facility] [id number] 05:20:00 Test Item Value Reference Range Interpretation Comments UA Sq Epi (test code = UA Sq Occasional /LPF Epi) [facility] AND [id number] 05:20:00 Test Item Value Reference Range Interpretation Comments UA Leuk Est (test Negative (04/08/18 12:20 code = UA Leuk Est) AM) [facility] AND [id number] 05:20:00 Test Item Value Reference Range Interpretation Comments UA Hyal Cast 6-10 (04/08/18 See_Comment [Automated me ssage] (test code = UA 12:20 AM) The system w hic [employer]) generated this result transmitted ref erence range: <=2. The reference range was not used to int erpret this result as normal/abnormal . [facility] AND [id number] 05:20:00 Test Item Value Reference Range Interpretation Comments UA Coarse Gran (test code = UA 6-10 /LPF Coarse Gran) [facility] [id number] 05:20:00 Test Item Value Reference Range Interpretation Comments UA Color (test code = Yellow *NA*(04/08/18 UA Color) 12:20 AM) [facility] AND [id number] 05:20:00 Test Item Value Reference Range Interpretation Comments UA Glucose (test code Negative (04/08/18 12:20 = UA Glucose) AM) [facility] [id number] 05:20:00 Test Item Value Reference Range Interpretation Comments UA Protein (test code = UA Protein) 30 mg/dL [facility] [id number] 05:20:00 Test Item Value Reference Range Interpretation Comments UA pH (test code = UA pH) 5.5 1 5.0-8.0 [facility] AND [id number] 05:20:00 Test Item Value Reference Range Interpretation Comments UA Spec Grav (test code = UA Spec 1.025 1 Grav) [facility] [id number] 05:20:00 Test Item Value Reference Range Interpretation Comments UA Turbidity (test code Slight Cloudy = UA Turbidity) (04/08/18 12:20 AM) [facility] AND [id number] 05:20:00 Test Item Value Reference Range Interpretation Comments UA Nitrite (test code Negative (04/08/18 12:20 = UA Nitrite) AM) [facility] AND [id number] 05:20:00 Test Item Value Reference Range Interpretation Comments UA Urobilinogen (test code = UA 0.2 0.1-1.0 Urobilinogen) [facility] AND [id number] 05:20:00 Test Item Value Reference Range Interpretation Comments UA Blood (test code = Large *ABN*(04/08/18 UA Blood) 12:20 AM) [facility] AND [id number] 05:20:00 Test Item Value Reference Range Interpretation Comments UA Bili (test code = Negative *NA*(04/08/18 UA Bili) 12:20 AM) [facility] AND [id number] 05:20:00 Test Item Value Reference Range Interpretation Comments UA Ketones (test code Negative *NA*(04/08/18 = UA Ketones) 12:20 AM) [facility] AND [id number] 05:20:00 Test Item Value Reference Range Interpretation Comments UA Bacteria (test code = UA Few /HPF Bacteria) [facility] AND [id number] 05:20:00 Test Item Value Reference Range Interpretation Comments UA RBC (test code 21-50 /HPF See_Comment [Automate d message] The = UA RBC) system which ge nerated this result tra nsmitted reference range : <=2. The reference range was not used to interpr et this result as normal/abnormal . [facility] AND [id number] 05:20:00 Test Item Value Reference Range Interpretation Comments UA WBC (test code = UA WBC) 1-3 [facility] AND [id number] 05:20:00 Test Item Value Reference Range Interpretation Comments UA Sq Epi (test code = UA Sq Occasional /LPF Epi) [facility] AND [id number] 05:20:00 Test Item Value Reference Range Interpretation Comments UA Leuk Est (test Negative (04/08/18 12:20 code = UA Leuk Est) AM) [facility] AND [id number] 05:20:00 Test Item Value Reference Range Interpretation Comments UA Hyal Cast 6-10 (04/08/18 See_Comment [Automated me ssage] (test code = UA 12:20 AM) The system w hic Hyal Cast) generated this result transmitted ref erence range: <=2. The reference range was not used to int erpret this result as normal/abnormal . [facility] AND [id number] 05:20:00 Test Item Value Reference Range Interpretation Comments UA Coarse Gran (test code = UA 6-10 /LPF Coarse Gran) [facility] AND [id number] 05:20:00 Test Item Value Reference Range Interpretation Comments UA Color (test code = Yellow *NA*(04/08/18 UA Color) 12:20 AM) [facility] AND [id number] 05:20:00 Test Item Value Reference Range Interpretation Comments UA Glucose (test code Negative (04/08/18 12:20 = UA Glucose) AM) [facility] AND [id number] 05:20:00 Test Item Value Reference Range Interpretation Comments UA Protein (test code = UA Protein) 30 mg/dL [facility] AND [id number] 05:20:00 Test Item Value Reference Range Interpretation Comments UA pH (test code = UA pH) 5.5 1 5.0-8.0 [facility] AND [id number] 05:20:00 Test Item Value Reference Range Interpretation Comments UA Spec Grav (test code = UA Spec 1.025 1 Grav) [facility] AND [id number] 05:20:00 Test Item Value Reference Range Interpretation Comments UA Turbidity (test code Slight Cloudy = UA Turbidity) (04/08/18 12:20 AM) [facility] AND [id number] 05:20:00 Test Item Value Reference Range Interpretation Comments UA Nitrite (test code Negative (04/08/18 12:20 = UA Nitrite) AM) [facility] AND [id number] 05:20:00 Test Item Value Reference Range Interpretation Comments UA Urobilinogen (test code = UA 0.2 0.1-1.0 Urobilinogen) [facility] [id number] 05:20:00 Test Item Value Reference Range Interpretation Comments UA Blood (test code = Large *ABN*(04/08/18 UA Blood) 12:20 AM) [facility] [id number] 05:20:00 Test Item Value Reference Range Interpretation Comments UA Bili (test code = Negative *NA*(04/08/18 UA Bili) 12:20 AM) [facility] [id number] 05:20:00 Test Item Value Reference Range Interpretation Comments UA Ketones (test code Negative *NA*(04/08/18 = UA Ketones) 12:20 AM) [facility] [id number] 05:20:00 Test Item Value Reference Range Interpretation Comments UA Bacteria (test code = UA Few /HPF Bacteria) [facility] AND [id number] 05:20:00 Test Item Value Reference Range Interpretation Comments UA RBC (test code 21-50 /HPF See_Comment [Automate d message] The = UA RBC) system which ge nerated this result tra nsmitted reference range : <=2. The reference range was not used to interpr et this result as normal/abnormal . [facility] [id number] 05:20:00 Test Item Value Reference Range Interpretation Comments UA WBC (test code = UA WBC) 1-3 [facility] AND [id number] 05:20:00 Test Item Value Reference Range Interpretation Comments UA Sq Epi (test code = UA Sq Occasional /LPF Epi) [facility] AND [id number] 05:20:00 Test Item Value Reference Range Interpretation Comments UA Leuk Est (test Negative (04/08/18 12:20 code = UA Leuk Est) AM) [facility] AND [id number] 05:20:00 Test Item Value Reference Range Interpretation Comments UA Hyal Cast 6-10 (04/08/18 See_Comment [Automated me ssage] (test code = UA 12:20 AM) The system w hich Hyal Cast) generated this result transmitted ref erence range: <=2. The reference range was not used to int erpret this result as normal/abnormal . [facility] [id number] 05:20:00 Test Item Value Reference Range Interpretation Comments UA Coarse Gran (test code = UA 6-10 /LPF Coarse Gran) [facility] AND [id number] 05:20:00 Test Item Value Reference Range Interpretation Comments UA Color (test code = Yellow *NA*(04/08/18 UA Color) 12:20 AM) [facility] AND [id number] 05:20:00 Test Item Value Reference Range Interpretation Comments UA Glucose (test code Negative (04/08/18 12:20 = UA Glucose) AM) [facility] AND [id number] 05:20:00 Test Item Value Reference Range Interpretation Comments UA Protein (test code = UA Protein) 30 mg/dL [facility] AND [id number] 05:20:00 Test Item Value Reference Range Interpretation Comments UA pH (test code = UA pH) 5.5 1 5.0-8.0 [facility] AND [id number] 05:20:00 Test Item Value Reference Range Interpretation Comments UA Spec Grav (test code = UA Spec 1.025 1 Grav) [facility] AND [id number] 05:20:00 Test Item Value Reference Range Interpretation Comments UA Turbidity (test code Slight Cloudy = UA Turbidity) (04/08/18 12:20 AM) [facility] AND [id number] 05:20:00 Test Item Value Reference Range Interpretation Comments UA Nitrite (test code Negative (04/08/18 12:20 = UA Nitrite) AM) [facility] AND [id number] 05:20:00 Test Item Value Reference Range Interpretation Comments UA Urobilinogen (test code = UA 0.2 0.1-1.0 Urobilinogen) [facility] AND [id number] 05:20:00 Test Item Value Reference Range Interpretation Comments UA Blood (test code = Large *ABN*(04/08/18 UA Blood) 12:20 AM) [facility] AND [id number] 05:20:00 Test Item Value Reference Range Interpretation Comments UA Bili (test code = Negative *NA*(04/08/18 UA Bili) 12:20 AM) [facility] AND [id number] 05:20:00 Test Item Value Reference Range Interpretation Comments UA Ketones (test code Negative *NA*(04/08/18 = UA Ketones) 12:20 AM) [facility] AND [id number] 05:20:00 Test Item Value Reference Range Interpretation Comments UA Bacteria (test code = UA Few /HPF Bacteria) [facility] AND [id number] 05:20:00 Test Item Value Reference Range Interpretation Comments UA RBC (test code 21-50 /HPF See_Comment [Automate d message] The = UA RBC) system which ge nerated this result tra nsmitted reference range : <=2. The reference range was not used to interpr et this result as normal/abnormal . [facility] [id number] 05:20:00 Test Item Value Reference Range Interpretation Comments UA WBC (test code = UA WBC) 1-3 [facility] AND [id number] 05:20:00 Test Item Value Reference Range Interpretation Comments UA Sq Epi (test code = UA Sq Occasional /LPF Epi) [facility] AND [id number] 05:20:00 Test Item Value Reference Range Interpretation Comments UA Leuk Est (test Negative (04/08/18 12:20 code = UA Leuk Est) AM) [facility] AND [id number] 05:20:00 Test Item Value Reference Range Interpretation Comments UA Hyal Cast 6-10 (04/08/18 See_Comment [Automated me ssage] (test code = UA 12:20 AM) The system w [facility] Hyal Cast) generated this result transmitted ref erence range: <=2. The reference range was not used to int erpret this result as normal/abnormal . [facility] AND [id number] 05:20:00 Test Item Value Reference Range Interpretation Comments UA Coarse Gran (test code = UA 6-10 /LPF Coarse Gran) [facility] AND [id number] 05:20:00 Test Item Value Reference Range Interpretation Comments UA Color (test code = Yellow *NA*(04/08/18 UA Color) 12:20 AM) [facility] AND [id number] 05:20:00 Test Item Value Reference Range Interpretation Comments UA Glucose (test code Negative (04/08/18 12:20 = UA Glucose) AM) [facility] AND [id number] 05:20:00 Test Item Value Reference Range Interpretation Comments UA Protein (test code = UA Protein) 30 mg/dL [facility] AND [id number] 05:20:00 Test Item Value Reference Range Interpretation Comments UA pH (test code = UA pH) 5.5 1 5.0-8.0 [facility] AND [id number] 05:20:00 Test Item Value Reference Range Interpretation Comments UA Spec Grav (test code = UA Spec 1.025 1 Grav) [facility] AND [id number] 05:20:00 Test Item Value Reference Range Interpretation Comments UA Turbidity (test code Slight Cloudy = UA Turbidity) (04/08/18 12:20 AM) [facility] AND [id number] 05:20:00 Test Item Value Reference Range Interpretation Comments UA Nitrite (test code Negative (04/08/18 12:20 = UA Nitrite) AM) [facility] AND [id number] 05:20:00 Test Item Value Reference Range Interpretation Comments UA Urobilinogen (test code = UA 0.2 0.1-1.0 Urobilinogen) [facility] AND [id number] 05:20:00 Test Item Value Reference Range Interpretation Comments UA Blood (test code = Large *ABN*(04/08/18 UA Blood) 12:20 AM) [facility] AND [id number] 05:20:00 Test Item Value Reference Range Interpretation Comments UA Bili (test code = Negative *NA*(04/08/18 UA Bili) 12:20 AM) [facility] AND [id number] 05:20:00 Test Item Value Reference Range Interpretation Comments UA Ketones (test code Negative *NA*(04/08/18 = UA Ketones) 12:20 AM) [facility] AND [id number] 05:20:00 Test Item Value Reference Range Interpretation Comments UA Bacteria (test code = UA Few /HPF Bacteria) [facility] AND [id number] 05:20:00 Test Item Value Reference Range Interpretation Comments UA RBC (test code 21-50 /HPF See_Comment [Automate d message] The = UA RBC) system which ge nerated this result tra nsmitted reference range : <=2. The reference range was not used to interpr et this result as normal/abnormal . [facility] [id number] 05:20:00 Test Item Value Reference Range Interpretation Comments UA WBC (test code = UA WBC) 1-3 [facility] [id number] 05:20:00 Test Item Value Reference Range Interpretation Comments UA Sq Epi (test code = UA Sq Occasional /LPF Epi) [facility] AND [id number] 05:20:00 Test Item Value Reference Range Interpretation Comments UA Leuk Est (test Negative (04/08/18 12:20 code = UA Leuk Est) AM) [facility] AND [id number] 05:20:00 Test Item Value Reference Range Interpretation Comments UA Hyal Cast 6-10 (04/08/18 See_Comment [Automated me ssage] (test code = UA 12:20 AM) The system w hich Hyal Cast) generated this result transmitted ref erence range: <=2. The reference range was not used to int erpret this result as normal/abnormal . [facility] [id number] 05:20:00 Test Item Value Reference Range Interpretation Comments UA Coarse Gran (test code = UA 6-10 /LPF Coarse Gran) [facility] AND [id number] 05:20:00 Test Item Value Reference Range Interpretation Comments UA Color (test code = Yellow *NA*(04/08/18 UA Color) 12:20 AM) [facility] AND [id number] 05:20:00 Test Item Value Reference Range Interpretation Comments UA Glucose (test code Negative (04/08/18 12:20 = UA Glucose) AM) [facility] AND [id number] 05:20:00 Test Item Value Reference Range Interpretation Comments UA Protein (test code = UA Protein) 30 mg/dL [facility] AND [id number] 05:20:00 Test Item Value Reference Range Interpretation Comments UA pH (test code = UA pH) 5.5 1 5.0-8.0 [facility] AND [id number] 05:20:00 Test Item Value Reference Range Interpretation Comments UA Spec Grav (test code = UA Spec 1.025 1 Grav) [facility] AND [id number] 05:20:00 Test Item Value Reference Range Interpretation Comments UA Turbidity (test code Slight Cloudy = UA Turbidity) (04/08/18 12:20 AM) [facility] AND [id number] 05:20:00 Test Item Value Reference Range Interpretation Comments UA Nitrite (test code Negative (04/08/18 12:20 = UA Nitrite) AM) [facility] AND [id number] 05:20:00 Test Item Value Reference Range Interpretation Comments UA Urobilinogen (test code = UA 0.2 0.1-1.0 Urobilinogen) [facility] AND [id number] 05:20:00 Test Item Value Reference Range Interpretation Comments UA Blood (test code = Large *ABN*(04/08/18 UA Blood) 12:20 AM) [facility] AND [id number] 05:20:00 Test Item Value Reference Range Interpretation Comments UA Bili (test code = Negative *NA*(04/08/18 UA Bili) 12:20 AM) [facility] AND [id number] 05:20:00 Test Item Value Reference Range Interpretation Comments UA Ketones (test code Negative *NA*(04/08/18 = UA Ketones) 12:20 AM) [facility] AND [id number] 05:20:00 Test Item Value Reference Range Interpretation Comments UA Bacteria (test code = UA Few /HPF Bacteria) [facility] AND [id number] 05:20:00 Test Item Value Reference Range Interpretation Comments UA RBC (test code 21-50 /HPF See_Comment [Automate d message] The = UA RBC) system which ge nerated this result tra nsmitted reference range : <=2. The reference range was not used to interpr et this result as normal/abnormal . [facility] AND [id number] 05:20:00 Test Item Value Reference Range Interpretation Comments UA WBC (test code = UA WBC) 1-3 [facility] AND [id number] 05:20:00 Test Item Value Reference Range Interpretation Comments UA Sq Epi (test code = UA Sq Occasional /LPF Epi) [facility] AND [id number] 05:20:00 Test Item Value Reference Range Interpretation Comments UA Leuk Est (test Negative (04/08/18 12:20 code = UA Leuk Est) AM) [facility] AND [id number] 05:20:00 Test Item Value Reference Range Interpretation Comments UA Hyal Cast 6-10 (04/08/18 See_Comment [Automated me ssage] (test code = UA 12:20 AM) The system w hic Hyal Cast) generated this result transmitted ref erence range: <=2. The reference range was not used to int erpret this result as normal/abnormal . [facility] AND [id number] 05:20:00 Test Item Value Reference Range Interpretation Comments UA Coarse Gran (test code = UA 6-10 /LPF Coarse Gran) [facility] AND [id number] 05:20:00 Test Item Value Reference Range Interpretation Comments UA Color (test code = Yellow *NA*(04/08/18 UA Color) 12:20 AM) [facility] AND [id number] 05:20:00 Test Item Value Reference Range Interpretation Comments UA Glucose (test code Negative (04/08/18 12:20 = UA Glucose) AM) [facility] AND [id number] 05:20:00 Test Item Value Reference Range Interpretation Comments UA Protein (test code = UA Protein) 30 mg/dL [facility] AND [id number] 05:20:00 Test Item Value Reference Range Interpretation Comments UA pH (test code = UA pH) 5.5 1 5.0-8.0 [facility] AND [id number] 05:20:00 Test Item Value Reference Range Interpretation Comments UA Spec Grav (test code = UA Spec 1.025 1 Grav) [facility] AND [id number] 05:20:00 Test Item Value Reference Range Interpretation Comments UA Turbidity (test code Slight Cloudy = UA Turbidity) (04/08/18 12:20 AM) [facility] AND [id number] 05:20:00 Test Item Value Reference Range Interpretation Comments UA Nitrite (test code Negative (04/08/18 12:20 = UA Nitrite) AM) [facility] AND [id number] 05:20:00 Test Item Value Reference Range Interpretation Comments UA Urobilinogen (test code = UA 0.2 0.1-1.0 Urobilinogen) [facility] AND [id number] 05:20:00 Test Item Value Reference Range Interpretation Comments UA Blood (test code = Large *ABN*(04/08/18 UA Blood) 12:20 AM) [facility] AND [id number] 05:20:00 Test Item Value Reference Range Interpretation Comments UA Bili (test code = Negative *NA*(04/08/18 UA Bili) 12:20 AM) [facility] AND [id number] 05:20:00 Test Item Value Reference Range Interpretation Comments UA Ketones (test code Negative *NA*(04/08/18 = UA Ketones) 12:20 AM) [facility] AND [id number] 05:20:00 Test Item Value Reference Range Interpretation Comments UA Bacteria (test code = UA Few /HPF Bacteria) [facility] AND [id number] 05:20:00 Test Item Value Reference Range Interpretation Comments UA RBC (test code 21-50 /HPF See_Comment [Automate d message] The = UA RBC) system which ge nerated this result tra nsmitted reference range : <=2. The reference range was not used to interpr et this result as normal/abnormal . [facility] AND [id number] 05:20:00 Test Item Value Reference Range Interpretation Comments UA WBC (test code = UA WBC) 1-3 [facility] AND [id number] 05:20:00 Test Item Value Reference Range Interpretation Comments UA Sq Epi (test code = UA Sq Occasional /LPF Epi) [facility] AND [id number] 05:20:00 Test Item Value Reference Range Interpretation Comments UA Leuk Est (test Negative (04/08/18 12:20 code = UA Leuk Est) AM) [facility] AND [id number] 05:20:00 Test Item Value Reference Range Interpretation Comments UA Hyal Cast 6-10 (04/08/18 See_Comment [Automated me ssage] (test code = UA 12:20 AM) The system w hich Hyal Cast) generated this result transmitted ref erence range: <=2. The reference range was not used to int erpret this result as normal/abnormal . [facility] AND [id number] 05:20:00 Test Item Value Reference Range Interpretation Comments UA Coarse Gran (test code = UA 6-10 /LPF Coarse Gran) [facility] AND [id number] 05:20:00 Test Item Value Reference Range Interpretation Comments UA Color (test code = Yellow *NA*(04/08/18 UA Color) 12:20 AM) [facility] AND [id number] 05:20:00 Test Item Value Reference Range Interpretation Comments UA Glucose (test code Negative (04/08/18 12:20 = UA Glucose) AM) [facility] AND [id number] 05:20:00 Test Item Value Reference Range Interpretation Comments UA Protein (test code = UA Protein) 30 mg/dL [facility] AND [id number] 05:20:00 Test Item Value Reference Range Interpretation Comments UA pH (test code = UA pH) 5.5 1 5.0-8.0 [facility] AND [id number] 05:20:00 Test Item Value Reference Range Interpretation Comments UA Spec Grav (test code = UA Spec 1.025 1 Grav) [facility] AND [id number] 05:20:00 Test Item Value Reference Range Interpretation Comments UA Turbidity (test code Slight Cloudy = UA Turbidity) (04/08/18 12:20 AM) [facility] AND [id number] 05:20:00 Test Item Value Reference Range Interpretation Comments UA Nitrite (test code Negative (04/08/18 12:20 = UA Nitrite) AM) [facility] AND [id number] 05:20:00 Test Item Value Reference Range Interpretation Comments UA Urobilinogen (test code = UA 0.2 0.1-1.0 Urobilinogen) [facility] AND [id number] 05:20:00 Test Item Value Reference Range Interpretation Comments UA Blood (test code = Large *ABN*(04/08/18 UA Blood) 12:20 AM) [facility] AND [id number] 05:20:00 Test Item Value Reference Range Interpretation Comments UA Bili (test code = Negative *NA*(04/08/18 UA Bili) 12:20 AM) [facility] AND [id number] 05:20:00 Test Item Value Reference Range Interpretation Comments UA Ketones (test code Negative *NA*(04/08/18 = UA Ketones) 12:20 AM) [facility] [id number] 05:20:00 Test Item Value Reference Range Interpretation Comments UA Bacteria (test code = UA Few /HPF Bacteria) [facility] AND [id number] 05:20:00 Test Item Value Reference Range Interpretation Comments UA RBC (test code 21-50 /HPF See_Comment [Automate d message] The = UA RBC) system which ge nerated this result tra nsmitted reference range : <=2. The reference range was not used to interpr et this result as normal/abnormal . [facility] AND [id number] 05:20:00 Test Item Value Reference Range Interpretation Comments UA WBC (test code = UA WBC) 1-3 [facility] AND [id number] 05:20:00 Test Item Value Reference Range Interpretation Comments UA Sq Epi (test code = UA Sq Occasional /LPF Epi) [facility] AND [id number] 05:20:00 Test Item Value Reference Range Interpretation Comments UA Leuk Est (test Negative (04/08/18 12:20 code = UA Leuk Est) AM) [facility] AND [id number] 05:20:00 Test Item Value Reference Range Interpretation Comments UA Hyal Cast 6-10 (04/08/18 See_Comment [Automated me ssage] (test code = UA 12:20 AM) The system w [facility] Hyal Cast) generated this result transmitted ref erence range: <=2. The reference range was not used to int erpret this result as normal/abnormal . [facility] AND [id number] 05:20:00 Test Item Value Reference Range Interpretation Comments UA Coarse Gran (test code = UA 6-10 /LPF Coarse Gran) [facility] AND [id number] 05:20:00 Test Item Value Reference Range Interpretation Comments UA Color (test code = Yellow *NA*(04/08/18 UA Color) 12:20 AM) [facility] AND [id number] 05:20:00 Test Item Value Reference Range Interpretation Comments UA Glucose (test code Negative (04/08/18 12:20 = UA Glucose) AM) [facility] AND [id number] 05:20:00 Test Item Value Reference Range Interpretation Comments UA Protein (test code = UA Protein) 30 mg/dL [facility] AND [id number] 05:20:00 Test Item Value Reference Range Interpretation Comments UA pH (test code = UA pH) 5.5 1 5.0-8.0 [facility] AND [id number] 05:20:00 Test Item Value Reference Range Interpretation Comments UA Spec Grav (test code = UA Spec 1.025 1 Grav) [facility] AND [id number] 05:20:00 Test Item Value Reference Range Interpretation Comments UA Turbidity (test code Slight Cloudy = UA Turbidity) (04/08/18 12:20 AM) [facility] AND [id number] 05:20:00 Test Item Value Reference Range Interpretation Comments UA Nitrite (test code Negative (04/08/18 12:20 = UA Nitrite) AM) [facility] AND [id number] 05:20:00 Test Item Value Reference Range Interpretation Comments UA Urobilinogen (test code = UA 0.2 0.1-1.0 Urobilinogen) [facility] AND [id number] 05:20:00 Test Item Value Reference Range Interpretation Comments UA Blood (test code = Large *ABN*(04/08/18 UA Blood) 12:20 AM) [facility] AND [id number] 05:20:00 Test Item Value Reference Range Interpretation Comments UA Bili (test code = Negative *NA*(04/08/18 UA Bili) 12:20 AM) [facility] AND [id number] 05:20:00 Test Item Value Reference Range Interpretation Comments UA Ketones (test code Negative *NA*(04/08/18 = UA Ketones) 12:20 AM) [facility] AND [id number] 05:20:00 Test Item Value Reference Range Interpretation Comments UA Bacteria (test code = UA Few /HPF Bacteria) [facility] AND [id number] 05:20:00 Test Item Value Reference Range Interpretation Comments UA RBC (test code 21-50 /HPF See_Comment [Automate d message] The = UA RBC) system which ge nerated this result tra nsmitted reference range : <=2. The reference range was not used to interpr et this result as normal/abnormal . [facility] AND [id number] 05:20:00 Test Item Value Reference Range Interpretation Comments UA WBC (test code = UA WBC) 1-3 [facility] AND [id number] 05:20:00 Test Item Value Reference Range Interpretation Comments UA Sq Epi (test code = UA Sq Occasional /LPF Epi) [facility] AND [id number] 05:20:00 Test Item Value Reference Range Interpretation Comments UA Leuk Est (test Negative (04/08/18 12:20 code = UA Leuk Est) AM) [facility] [employer] [facility] [id number] 04:50:00 Test Item Value Reference Range Interpretation Comments Antibody Scrn (test Negative (04/07/18 code = Antibody Scrn) 11:50 PM) [facility] [employer] [id number] 04:50:00 Test Item Value Reference Range Interpretation Comments ABO/Rh (test code = ABO/Rh) A POS [facility] [employer] [id number] 04:50:00 Test Item Value Reference Range Interpretation Comments Antibody Scrn (test Negative (04/07/18 code = Antibody Scrn) 11:50 PM) [facility] [employer] [id number] 04:50:00 Test Item Value Reference Range Interpretation Comments ABO/Rh (test code = ABO/Rh) A POS [facility] [employer] [id number] 04:50:00 Test Item Value Reference Range Interpretation Comments Antibody Scrn (test Negative (04/07/18 code = Antibody Scrn) 11:50 PM) [facility] [employer] [id number] 04:50:00 Test Item Value Reference Range Interpretation Comments ABO/Rh (test code = ABO/Rh) A POS [facility] [employer] [id number] 04:50:00 Test Item Value Reference Range Interpretation Comments Antibody Scrn (test Negative (04/07/18 code = Antibody Scrn) 11:50 PM) [facility] [employer] [id number] 04:50:00 Test Item Value Reference Range Interpretation Comments ABO/Rh (test code = ABO/Rh) A [facility] [employer] [id number] 04:50:00 Test Item Value Reference Range Interpretation Comments Antibody Scrn (test Negative (04/07/18 code = Antibody Scrn) 11:50 PM) [facility] [facility] [employer] [facility] [id number] 04:50:00 Test Item Value Reference Range Interpretation Comments ABO/Rh (test code = ABO/Rh) A [facility] [id number] 04:50:00 Test Item Value Reference Range Interpretation Comments Antibody Scrn (test Negative (04/07/18 code = Antibody Scrn) 11:50 PM) [facility] [id number] 04:50:00 Test Item Value Reference Range Interpretation Comments ABO/Rh (test code = ABO/Rh) A [facility] [id number] 04:50:00 Test Item Value Reference Range Interpretation Comments Antibody Scrn (test Negative (04/07/18 code = Antibody Scrn) 11:50 PM) [facility] [id number] 04:50:00 Test Item Value Reference Range Interpretation Comments ABO/Rh (test code = ABO/Rh) A [facility] [id number] 04:50:00 Test Item Value Reference Range Interpretation Comments Antibody Scrn (test Negative (04/07/18 code = Antibody Scrn) 11:50 PM) [facility] [id number] 04:50:00 Test Item Value Reference Range Interpretation Comments ABO/Rh (test code = ABO/Rh) A [facility] [id number] 04:50:00 Test Item Value Reference Range Interpretation Comments Antibody Scrn (test Negative (04/07/18 code = Antibody Scrn) 11:50 PM) [employer] [id number] 04:50:00 Test Item Value Reference Range Interpretation Comments ABO/Rh (test code = ABO/Rh) A [facility] [employer] [id number] 04:41:48 Test Item Value Reference Range Interpretation Comments Lactic Acid Lvl (test code = Lactic 0.8 0.5-2.2 Acid Lvl) [facility] [employer] [id number] 04:41:48 Test Item Value Reference Range Interpretation Comments Total Protein (test code = Total 7.0 6.4-8.4 Protein) [place] [id number] 04:41:48 Test Item Value Reference Range Interpretation Comments Albumin Lvl (test code = Albumin Lvl) 3.7 3.5-5.0 [place] 010798-07-13 04:41:48 Test Item Value Reference Range Interpretation Comments ALT (test code = ALT) 46 See_Comment [Auto mated message] The system which ge nerated this result transmit karla reference range : <=65. The reference range was not used to interpr et this result as parul l/abnormal. [place] 010798-07-13 04:41:48 Test Item Value Reference Range Interpretation Comments AST (test code = AST) 60 See_Comment [Auto mated message] The system which ge nerated this result transmit karla reference range : <=37. The reference range was not used to interpr et this result as parul l/abnormal. [place] 010798-07-13 04:41:48 Test Item Value Reference Range Interpretation Comments Alk Phos (test code = Alk Phos) 65 39-136 [facility]2018-07-13 04:41:48 Test Item Value Reference Range Interpretation Comments Bili Total (test code = Bili Total) 0.7 0.2-1.3 [place] 010798-07-13 04:41:48 Test Item Value Reference Range Interpretation Comments Bili Indirect (test 0.6 See_Comment [Automa karla message] The code = Bili Indirect) system which generated this result tra nsmitted reference range : <=1.0. The reference r renu was not used to int erpret this result as normal/abnormal . [place] 010798-07-13 04:41:48 Test Item Value Reference Range Interpretation Comments Bili Direct (test code 0.1 See_Comment [Aut omated message] The = Bili Direct) system which generated this result tra nsmitted reference range : <=0.3. The reference r renu was not used to int erpret this result as parul l/abnormal. [place] 010798-07-13 04:41:48 Test Item Value Reference Range Interpretation Comments A/G Ratio (test code = A/G Ratio) 1.1 1 0.7-1.6 [facility]2018-07-13 04:41:48 Test Item Value Reference Range Interpretation Comments Globulin (test code = Globulin) 3.3 2.7-4.2 [place] 796548-07-13 04:41:48 Test Item Value Reference Range Interpretation Comments PTT (test code = PTT) 29.3 s 22.9-35.8 [facility] [id number] 04:41:48 Test Item Value Reference Range Interpretation Comments INR (test code = INR) 1.19 1 0.85-1.17 [facility] [id number] 04:41:48 Test Item Value Reference Range Interpretation Comments PT (test code = PT) 15.2 s 12.0-14.7 [facility] Cent[id number] 04:41:48 Test Item Value Reference Range Interpretation Comments Estimated % Lysis Rapid 1.1 See_Comment [Au tomated message] The (test code = Estimated syste m which generated % Lysis Rapid) this result t ransmitted reference range : <=7.5. The reference r renu was not used to int erpret this result as normal/abnormal . [facility] [id number] 04:41:48 Test Item Value Reference Range Interpretation Comments ACT (TEG) Rapid (test code = ACT (TEG) 97 s 86-118 Rapid) [facility] CenterYmtfymkYNLSUFWBSU4594-19-75 04:41:48 Test Item Value Reference Range Interpretation Comments G-value Rapid (test code = G-value 8.1 5.0-11.6 Rapid) [facility] Cent[id number] 04:41:48 Test Item Value Reference Range Interpretation Comments Split Point Rapid (test code = Split 0.4 min Point Rapid) [facility] CenterHgsyeivOEWVWJUVGP7547-76-81 04:41:48 Test Item Value Reference Range Interpretation Comments R-time Rapid (test code = R-time 0.5 min 0.4-0.7 Rapid) [facility] CenterJaevdzgXEBAVKPIQL9886-03-79 04:41:48 Test Item Value Reference Range Interpretation Comments Angle Rapid (test code = Angle 76 degrees 64-80 Rapid) [facility] CenterAjhyqjcZFUFAVCJCS2976-92-44 04:41:48 Test Item Value Reference Range Interpretation Comments Max Amplitude Rapid (test code = Max 62 mm 52-71 Amplitude Rapid) [facility] CenterFtqdfpfIAMNZGEBGS7827-08-09 04:41:48 Test Item Value Reference Range Interpretation Comments K-time Rapid (test code = K-time 1.2 min 0.6-2.3 Rapid) [place] [id number] 04:41:48 Test Item Value Reference Range Interpretation Comments Etoh (%) (test code = Etoh (%)) no gt [place] [id number] 04:41:48 Test Item Value Reference Range Interpretation Comments Ethanol Lvl (test code = Ethanol Lvl) no gt [facility]2018-07-13 04:41:48 Test Item Value Reference Range Interpretation Comments Lactic Acid Lvl (test code = Lactic 0.8 0.5-2.2 Acid Lvl) [facility]2018-07-13 04:41:48 Test Item Value Reference Range Interpretation Comments Total Protein (test code = Total 7.0 6.4-8.4 Protein) [facility]2018-07-13 04:41:48 Test Item Value Reference Range Interpretation Comments Albumin Lvl (test code = Albumin Lvl) 3.7 3.5-5.0 [facility]2018-07-13 04:41:48 Test Item Value Reference Range Interpretation Comments ALT (test code = ALT) 46 See_Comment [Auto mated message] The system which ge nerated this result transmit karla reference range : <=65. The reference range was not used to interpr et this result as parul l/abnormal. [facility]2018-07-13 04:41:48 Test Item Value Reference Range Interpretation Comments AST (test code = AST) 60 See_Comment [Auto mated message] The system which ge nerated this result transmit karla reference range : <=37. The reference range was not used to interpr et this result as parul l/abnormal. [facility]2018-07-13 04:41:48 Test Item Value Reference Range Interpretation Comments Alk Phos (test code = Alk Phos) 65 39-136 [facility]2018-07-13 04:41:48 Test Item Value Reference Range Interpretation Comments Bili Total (test code = Bili Total) 0.7 0.2-1.3 [place] 010798-07-13 04:41:48 Test Item Value Reference Range Interpretation Comments Bili Indirect (test 0.6 See_Comment [Automa karla message] The code = Bili Indirect) system which generated this result tra nsmitted reference range : <=1.0. The reference r renu was not used to int erpret this result as normal/abnormal . [place] 010798-07-13 04:41:48 Test Item Value Reference Range Interpretation Comments Bili Direct (test code 0.1 See_Comment [Aut omated message] The = Bili Direct) system which generated this result tra nsmitted reference range : <=0.3. The reference r renu was not used to int erpret this result as parul l/abnormal. [place] 010798-07-13 04:41:48 Test Item Value Reference Range Interpretation Comments A/G Ratio (test code = A/G Ratio) 1.1 1 0.7-1.6 [place] 010798-07-13 04:41:48 Test Item Value Reference Range Interpretation Comments Globulin (test code = Globulin) 3.3 2.7-4.2 [place] 796548-07-13 04:41:48 Test Item Value Reference Range Interpretation Comments PTT (test code = PTT) 29.3 s 22.9-35.8 [place] 796548-07-13 04:41:48 Test Item Value Reference Range Interpretation Comments INR (test code = INR) 1.19 1 0.85-1.17 [place] 796548-07-13 04:41:48 Test Item Value Reference Range Interpretation Comments PT (test code = PT) 15.2 s 12.0-14.7 [place] [address]-07-13 04:41:48 Test Item Value Reference Range Interpretation Comments Estimated % Lysis Rapid 1.1 See_Comment [Au tomated message] The (test code = Estimated syste m which generated % Lysis Rapid) this result t ransmitted reference range : <=7.5. The reference r renu was not used to int erpret this result as normal/abnormal . [facility] CenterIicapyzCPIQANPDYE0026-38-07 04:41:48 Test Item Value Reference Range Interpretation Comments ACT (TEG) Rapid (test code = ACT (TEG) 97 s 86-118 Rapid) [facility] CenterAfvyezpHSZDKDJSQF0121-42-86 04:41:48 Test Item Value Reference Range Interpretation Comments G-value Rapid (test code = G-value 8.1 5.0-11.6 Rapid) [facility] CenterYdlaojgDPXTXTFCCI2389-32-96 04:41:48 Test Item Value Reference Range Interpretation Comments Split Point Rapid (test code = Split 0.4 min Point Rapid) [facility] CenterKqicbhnLRSHIJSKRZ5526-73-26 04:41:48 Test Item Value Reference Range Interpretation Comments R-time Rapid (test code = R-time 0.5 min 0.4-0.7 Rapid) [facility] CenterKzgpohzARDSUWTFGE9444-25-72 04:41:48 Test Item Value Reference Range Interpretation Comments Angle Rapid (test code = Angle 76 degrees 64-80 Rapid) [facility] CenterFdpeofzQWHJGWUQZR9756-30-95 04:41:48 Test Item Value Reference Range Interpretation Comments Max Amplitude Rapid (test code = Max 62 mm 52-71 Amplitude Rapid) [facility] CenterKwrezkzNMQQFSLCIK3352-16-35 04:41:48 Test Item Value Reference Range Interpretation Comments K-time Rapid (test code = K-time 1.2 min 0.6-2.3 Rapid) [facility]KjysgyiRNWTZZOVJS3858-28-38 04:41:48 Test Item Value Reference Range Interpretation Comments Etoh (%) (test code = Etoh (%)) no gt [facility]KijuwmhJREGIQWSKE5960-10-89 04:41:48 Test Item Value Reference Range Interpretation Comments Ethanol Lvl (test code = Ethanol Lvl) no gt [facility]2018-07-13 04:41:48 Test Item Value Reference Range Interpretation Comments Lactic Acid Lvl (test code = Lactic 0.8 0.5-2.2 Acid Lvl) [facility]2018-07-13 04:41:48 Test Item Value Reference Range Interpretation Comments Total Protein (test code = Total 7.0 6.4-8.4 Protein) [facility]2018-07-13 04:41:48 Test Item Value Reference Range Interpretation Comments Albumin Lvl (test code = Albumin Lvl) 3.7 3.5-5.0 [facility]2018-07-13 04:41:48 Test Item Value Reference Range Interpretation Comments ALT (test code = ALT) 46 See_Comment [Auto mated message] The system which ge nerated this result transmit karla reference range : <=65. The reference range was not used to interpr et this result as parul l/abnormal. [facility]2018-07-13 04:41:48 Test Item Value Reference Range Interpretation Comments AST (test code = AST) 60 See_Comment [Auto mated message] The system which ge nerated this result transmit karla reference range : <=37. The reference range was not used to interpr et this result as parul l/abnormal. [facility]2018-07-13 04:41:48 Test Item Value Reference Range Interpretation Comments Alk Phos (test code = Alk Phos) 65 39-136 [facility]2018-07-13 04:41:48 Test Item Value Reference Range Interpretation Comments Bili Total (test code = Bili Total) 0.7 0.2-1.3 [facility]2018-07-13 04:41:48 Test Item Value Reference Range Interpretation Comments Bili Indirect (test 0.6 See_Comment [Automa karla message] The code = Bili Indirect) system which generated this result tra nsmitted reference range : <=1.0. The reference r renu was not used to int erpret this result as normal/abnormal . [facility]2018-07-13 04:41:48 Test Item Value Reference Range Interpretation Comments Bili Direct (test code 0.1 See_Comment [Aut omated message] The = Bili Direct) system which generated this result tra nsmitted reference range : <=0.3. The reference r renu was not used to int erpret this result as parul l/abnormal. [facility]2018-07-13 04:41:48 Test Item Value Reference Range Interpretation Comments A/G Ratio (test code = A/G Ratio) 1.1 1 0.7-1.6 [facility]2018-07-13 04:41:48 Test Item Value Reference Range Interpretation Comments Globulin (test code = Globulin) 3.3 2.7-4.2 [facility] CenterYqwghryTTOUMGTLPZ4715-37-96 04:41:48 Test Item Value Reference Range Interpretation Comments PTT (test code = PTT) 29.3 s 22.9-35.8 [facility] CenterZmwrtoePDTNPXTVHU2504-43-16 04:41:48 Test Item Value Reference Range Interpretation Comments INR (test code = INR) 1.19 1 0.85-1.17 [facility] CenterItaacvpEAQWNMURTY2247-91-50 04:41:48 Test Item Value Reference Range Interpretation Comments PT (test code = PT) 15.2 s 12.0-14.7 [facility] CenterRcuntpzHWEAPGCUFJ6260-37-13 04:41:48 Test Item Value Reference Range Interpretation Comments Estimated % Lysis Rapid 1.1 See_Comment [Au tomated message] The (test code = Estimated syste m which generated % Lysis Rapid) this result t ransmitted reference range : <=7.5. The reference r renu was not used to int erpret this result as normal/abnormal . [facility] CenterBzzulmsPPRTIFIGQL1855-87-35 04:41:48 Test Item Value Reference Range Interpretation Comments ACT (TEG) Rapid (test code = ACT (TEG) 97 s 86-118 Rapid) [facility] CenterKwnqpuvQGMYROYYBI9454-61-97 04:41:48 Test Item Value Reference Range Interpretation Comments G-value Rapid (test code = G-value 8.1 5.0-11.6 Rapid) [facility] CenterNjrlzutUQEUMWXOSU2098-17-93 04:41:48 Test Item Value Reference Range Interpretation Comments Split Point Rapid (test code = Split 0.4 min Point Rapid) [facility] CenterOzrzrrdGHCHSBSCSZ2056-99-15 04:41:48 Test Item Value Reference Range Interpretation Comments R-time Rapid (test code = R-time 0.5 min 0.4-0.7 Rapid) [facility] CenterRjxzmzpKBWRLRFOOK8325-32-33 04:41:48 Test Item Value Reference Range Interpretation Comments Angle Rapid (test code = Angle 76 degrees 64-80 Rapid) [facility] CenterZgovidoEPJWMSQLLK2045-71-61 04:41:48 Test Item Value Reference Range Interpretation Comments Max Amplitude Rapid (test code = Max 62 mm 52-71 Amplitude Rapid) [facility] CenterMfxkrtpEDGNFGFKHT9811-85-10 04:41:48 Test Item Value Reference Range Interpretation Comments K-time Rapid (test code = K-time 1.2 min 0.6-2.3 Rapid) [facility]YpypnkvSFBMXIERYB1274-29-63 04:41:48 Test Item Value Reference Range Interpretation Comments Etoh (%) (test code = Etoh (%)) no gt [facility]XdjvlfiXLYDWXVUMI7446-66-02 04:41:48 Test Item Value Reference Range Interpretation Comments Ethanol Lvl (test code = Ethanol Lvl) no gt [facility]2018-07-13 04:41:48 Test Item Value Reference Range Interpretation Comments Lactic Acid Lvl (test code = Lactic 0.8 0.5-2.2 Acid Lvl) [facility]2018-07-13 04:41:48 Test Item Value Reference Range Interpretation Comments Total Protein (test code = Total 7.0 6.4-8.4 Protein) [facility]2018-07-13 04:41:48 Test Item Value Reference Range Interpretation Comments Albumin Lvl (test code = Albumin Lvl) 3.7 3.5-5.0 [facility]2018-07-13 04:41:48 Test Item Value Reference Range Interpretation Comments ALT (test code = ALT) 46 See_Comment [Auto mated message] The system which ge nerated this result transmit karla reference range : <=65. The reference range was not used to interpr et this result as parul l/abnormal. [facility]2018-07-13 04:41:48 Test Item Value Reference Range Interpretation Comments AST (test code = AST) 60 See_Comment [Auto mated message] The system which ge nerated this result transmit karla reference range : <=37. The reference range was not used to interpr et this result as parul l/abnormal. [facility]2018-07-13 04:41:48 Test Item Value Reference Range Interpretation Comments Alk Phos (test code = Alk Phos) 65 39-136 [facility]2018-07-13 04:41:48 Test Item Value Reference Range Interpretation Comments Bili Total (test code = Bili Total) 0.7 0.2-1.3 [facility]2018-07-13 04:41:48 Test Item Value Reference Range Interpretation Comments Bili Indirect (test 0.6 See_Comment [Automa karla message] The code = Bili Indirect) system which generated this result tra nsmitted reference range : <=1.0. The reference r renu was not used to int erpret this result as normal/abnormal . [facility]2018-07-13 04:41:48 Test Item Value Reference Range Interpretation Comments Bili Direct (test code 0.1 See_Comment [Aut omated message] The = Bili Direct) system which generated this result tra nsmitted reference range : <=0.3. The reference r renu was not used to int erpret this result as parul l/abnormal. [facility]2018-07-13 04:41:48 Test Item Value Reference Range Interpretation Comments A/G Ratio (test code = A/G Ratio) 1.1 1 0.7-1.6 [facility]2018-07-13 04:41:48 Test Item Value Reference Range Interpretation Comments Globulin (test code = Globulin) 3.3 2.7-4.2 [facility] CenterStyngmfGRKZOVCEZV0193-34-10 04:41:48 Test Item Value Reference Range Interpretation Comments PTT (test code = PTT) 29.3 s 22.9-35.8 [facility] CenterZyjvjklUWOYJEVEBY2954-11-23 04:41:48 Test Item Value Reference Range Interpretation Comments INR (test code = INR) 1.19 1 0.85-1.17 [facility] CenterMkxupteUNXAABYCBY3731-21-51 04:41:48 Test Item Value Reference Range Interpretation Comments PT (test code = PT) 15.2 s 12.0-14.7 [facility] CenterXwmpyqpFSFKNDSKKE8511-34-47 04:41:48 Test Item Value Reference Range Interpretation Comments Estimated % Lysis Rapid 1.1 See_Comment [Au tomated message] The (test code = Estimated syste m which generated % Lysis Rapid) this result t ransmitted reference range : <=7.5. The reference r renu was not used to int erpret this result as normal/abnormal . [facility] CenterJaedczbSOZDOJVRYS4414-22-33 04:41:48 Test Item Value Reference Range Interpretation Comments ACT (TEG) Rapid (test code = ACT (TEG) 97 s 86-118 Rapid) [facility] CenterXjozkgmWUPNMWFTHV7237-89-82 04:41:48 Test Item Value Reference Range Interpretation Comments G-value Rapid (test code = G-value 8.1 5.0-11.6 Rapid) [facility] CenterUtzepxaZCBOFIHYSO8057-17-46 04:41:48 Test Item Value Reference Range Interpretation Comments Split Point Rapid (test code = Split 0.4 min Point Rapid) [facility] CenterKxltgqyACZTPTNYCS2402-63-33 04:41:48 Test Item Value Reference Range Interpretation Comments R-time Rapid (test code = R-time 0.5 min 0.4-0.7 Rapid) [facility] CenterXxgrdmqGSDNHLGYZF2602-89-99 04:41:48 Test Item Value Reference Range Interpretation Comments Angle Rapid (test code = Angle 76 degrees 64-80 Rapid) [facility] CenterGfimocaXYBCXRTDLB9548-10-34 04:41:48 Test Item Value Reference Range Interpretation Comments Max Amplitude Rapid (test code = Max 62 mm 52-71 Amplitude Rapid) [facility] CenterAciprmmZTSHVTJRCQ1385-68-55 04:41:48 Test Item Value Reference Range Interpretation Comments K-time Rapid (test code = K-time 1.2 min 0.6-2.3 Rapid) [place] [id number] 04:41:48 Test Item Value Reference Range Interpretation Comments Etoh (%) (test code = Etoh (%)) no gt [place] [id number] 04:41:48 Test Item Value Reference Range Interpretation Comments Ethanol Lvl (test code = Ethanol Lvl) no gt [facility]2018-07-13 04:41:48 Test Item Value Reference Range Interpretation Comments Lactic Acid Lvl (test code = Lactic 0.8 0.5-2.2 Acid Lvl) [facility]2018-07-13 04:41:48 Test Item Value Reference Range Interpretation Comments Total Protein (test code = Total 7.0 6.4-8.4 Protein) [facility]2018-07-13 04:41:48 Test Item Value Reference Range Interpretation Comments Albumin Lvl (test code = Albumin Lvl) 3.7 3.5-5.0 [facility]2018-07-13 04:41:48 Test Item Value Reference Range Interpretation Comments ALT (test code = ALT) 46 See_Comment [Auto mated message] The system which ge nerated this result transmit karla reference range : <=65. The reference range was not used to interpr et this result as parul l/abnormal. [facility]2018-07-13 04:41:48 Test Item Value Reference Range Interpretation Comments AST (test code = AST) 60 See_Comment [Auto mated message] The system which ge nerated this result transmit karla reference range : <=37. The reference range was not used to interpr et this result as parul l/abnormal. [facility]2018-07-13 04:41:48 Test Item Value Reference Range Interpretation Comments Alk Phos (test code = Alk Phos) 65 39-136 [place] 010798-07-13 04:41:48 Test Item Value Reference Range Interpretation Comments Bili Total (test code = Bili Total) 0.7 0.2-1.3 [place] 010798-07-13 04:41:48 Test Item Value Reference Range Interpretation Comments Bili Indirect (test 0.6 See_Comment [Automa karla message] The code = Bili Indirect) system which generated this result tra nsmitted reference range : <=1.0. The reference r renu was not used to int erpret this result as normal/abnormal . [facility]2018-07-13 04:41:48 Test Item Value Reference Range Interpretation Comments Bili Direct (test code 0.1 See_Comment [Aut omated message] The = Bili Direct) system which generated this result tra nsmitted reference range : <=0.3. The reference r renu was not used to int erpret this result as parul l/abnormal. [facility]2018-07-13 04:41:48 Test Item Value Reference Range Interpretation Comments A/G Ratio (test code = A/G Ratio) 1.1 1 0.7-1.6 [place] 010798-07-13 04:41:48 Test Item Value Reference Range Interpretation Comments Globulin (test code = Globulin) 3.3 2.7-4.2 [facility] CenterIajomahZSXODDUCXY9829-42-41 04:41:48 Test Item Value Reference Range Interpretation Comments PTT (test code = PTT) 29.3 s 22.9-35.8 [facility] CenterZvfmmikCBXGIQAEVF9357-30-39 04:41:48 Test Item Value Reference Range Interpretation Comments INR (test code = INR) 1.19 1 0.85-1.17 [place] [id number] 04:41:48 Test Item Value Reference Range Interpretation Comments PT (test code = PT) 15.2 s 12.0-14.7 [facility]JsjzohzOCEAAYKYDQ9388-46-65 04:41:48 Test Item Value Reference Range Interpretation Comments Estimated % Lysis Rapid 1.1 See_Comment [Au tomated message] The (test code = Estimated syste m which generated % Lysis Rapid) this result t ransmitted reference range : <=7.5. The reference r renu was not used to int erpret this result as normal/abnormal . [facility] CenterZizeftuMKOATUHOBO4370-54-84 04:41:48 Test Item Value Reference Range Interpretation Comments ACT (TEG) Rapid (test code = ACT (TEG) 97 s 86-118 Rapid) [facility] CenterGegqmujBAFPBKWNNH8854-57-77 04:41:48 Test Item Value Reference Range Interpretation Comments G-value Rapid (test code = G-value 8.1 5.0-11.6 Rapid) [facility] CenterTehdydiEOVSJXNSHQ4078-78-79 04:41:48 Test Item Value Reference Range Interpretation Comments Split Point Rapid (test code = Split 0.4 min Point Rapid) [facility] CenterPkjmqzoJVKIATAXNC0590-96-32 04:41:48 Test Item Value Reference Range Interpretation Comments R-time Rapid (test code = R-time 0.5 min 0.4-0.7 Rapid) [facility] CenterIfpoirzPDKHHFXWAL3515-57-99 04:41:48 Test Item Value Reference Range Interpretation Comments Angle Rapid (test code = Angle 76 degrees 64-80 Rapid) [facility] CenterEalbmbhIVAFYGLLCS7331-98-47 04:41:48 Test Item Value Reference Range Interpretation Comments Max Amplitude Rapid (test code = Max 62 mm 52-71 Amplitude Rapid) [facility] CenterSvfhhudMGKAPLHUUO7398-15-38 04:41:48 Test Item Value Reference Range Interpretation Comments K-time Rapid (test code = K-time 1.2 min 0.6-2.3 Rapid) [facility]HzdtdqjALTHNFTYGC3143-06-87 04:41:48 Test Item Value Reference Range Interpretation Comments Etoh (%) (test code = Etoh (%)) no gt [facility]villeTahojijPYZNAQXHJL9808-20-26 04:41:48 Test Item Value Reference Range Interpretation Comments Ethanol Lvl (test code = Ethanol Lvl) no gt [facility]villeCHEM OQTKC2327-42-10 04:41:48 Test Item Value Reference Range Interpretation Comments Lactic Acid Lvl (test code = Lactic 0.8 0.5-2.2 Acid Lvl) [place] 010798-07-13 04:41:48 Test Item Value Reference Range Interpretation Comments Total Protein (test code = Total 7.0 6.4-8.4 Protein) [place] 010798-07-13 04:41:48 Test Item Value Reference Range Interpretation Comments Albumin Lvl (test code = Albumin Lvl) 3.7 3.5-5.0 [place] 010798-07-13 04:41:48 Test Item Value Reference Range Interpretation Comments ALT (test code = ALT) 46 See_Comment [Auto mated message] The system which ge nerated this result transmit karla reference range : <=65. The reference range was not used to interpr et this result as parul l/abnormal. [place] 010798-07-13 04:41:48 Test Item Value Reference Range Interpretation Comments AST (test code = AST) 60 See_Comment [Auto mated message] The system which ge nerated this result transmit karla reference range : <=37. The reference range was not used to interpr et this result as parul l/abnormal. [facility]2018-07-13 04:41:48 Test Item Value Reference Range Interpretation Comments Alk Phos (test code = Alk Phos) 65 39-136 [facility]2018-07-13 04:41:48 Test Item Value Reference Range Interpretation Comments Bili Total (test code = Bili Total) 0.7 0.2-1.3 [place] 010798-07-13 04:41:48 Test Item Value Reference Range Interpretation Comments Bili Indirect (test 0.6 See_Comment [Automa karla message] The code = Bili Indirect) system which generated this result tra nsmitted reference range : <=1.0. The reference r renu was not used to int erpret this result as normal/abnormal . [place] 010798-07-13 04:41:48 Test Item Value Reference Range Interpretation Comments Bili Direct (test code 0.1 See_Comment [Aut omated message] The = Bili Direct) system which generated this result tra nsmitted reference range : <=0.3. The reference r renu was not used to int erpret this result as parul l/abnormal. [facility]2018-07-13 04:41:48 Test Item Value Reference Range Interpretation Comments A/G Ratio (test code = A/G Ratio) 1.1 1 0.7-1.6 [facility]2018-07-13 04:41:48 Test Item Value Reference Range Interpretation Comments Globulin (test code = Globulin) 3.3 2.7-4.2 [facility] CenterZhzlnzbDPMYTANVCV6868-97-23 04:41:48 Test Item Value Reference Range Interpretation Comments PTT (test code = PTT) 29.3 s 22.9-35.8 [facility] CenterTrmfvcmYWXEKIGXWL3864-91-17 04:41:48 Test Item Value Reference Range Interpretation Comments INR (test code = INR) 1.19 1 0.85-1.17 [facility] CenterBuanjccSWGPWJMKWW2571-15-63 04:41:48 Test Item Value Reference Range Interpretation Comments PT (test code = PT) 15.2 s 12.0-14.7 [facility] CenterYpygufwQENYDQOKAJ7512-63-54 04:41:48 Test Item Value Reference Range Interpretation Comments Estimated % Lysis Rapid 1.1 See_Comment [Au tomated message] The (test code = Estimated syste m which generated % Lysis Rapid) this result t ransmitted reference range : <=7.5. The reference r renu was not used to int erpret this result as normal/abnormal . [facility] CenterVxyouiiZQOGZMSBCP0361-72-70 04:41:48 Test Item Value Reference Range Interpretation Comments ACT (TEG) Rapid (test code = ACT (TEG) 97 s 86-118 Rapid) [facility] CenterXorkoylGDVHOUFBUM1114-38-85 04:41:48 Test Item Value Reference Range Interpretation Comments G-value Rapid (test code = G-value 8.1 5.0-11.6 Rapid) [facility] CenterFvhcblsUIOUPDKCWI4343-96-19 04:41:48 Test Item Value Reference Range Interpretation Comments Split Point Rapid (test code = Split 0.4 min Point Rapid) [facility] CenterQlcjfzzDAZXFIPNKP8718-08-35 04:41:48 Test Item Value Reference Range Interpretation Comments R-time Rapid (test code = R-time 0.5 min 0.4-0.7 Rapid) [facility] CenterMcuklidTMABXEKJXR3048-65-54 04:41:48 Test Item Value Reference Range Interpretation Comments Angle Rapid (test code = Angle 76 degrees 64-80 Rapid) [facility] CenterQfgvthvUHLNZKHQNT7863-46-59 04:41:48 Test Item Value Reference Range Interpretation Comments Max Amplitude Rapid (test code = Max 62 mm 52-71 Amplitude Rapid) [facility] CenterYpvwebdQLSNEXQMBO4943-56-36 04:41:48 Test Item Value Reference Range Interpretation Comments K-time Rapid (test code = K-time 1.2 min 0.6-2.3 Rapid) [place] 152408-07-13 04:41:48 Test Item Value Reference Range Interpretation Comments Etoh (%) (test code = Etoh (%)) no gt [place] 152408-07-13 04:41:48 Test Item Value Reference Range Interpretation Comments Ethanol Lvl (test code = Ethanol Lvl) no gt [facility]2018-07-13 04:41:48 Test Item Value Reference Range Interpretation Comments Lactic Acid Lvl (test code = Lactic 0.8 0.5-2.2 Acid Lvl) [facility]2018-07-13 04:41:48 Test Item Value Reference Range Interpretation Comments Total Protein (test code = Total 7.0 6.4-8.4 Protein) [facility]2018-07-13 04:41:48 Test Item Value Reference Range Interpretation Comments Albumin Lvl (test code = Albumin Lvl) 3.7 3.5-5.0 [facility]2018-07-13 04:41:48 Test Item Value Reference Range Interpretation Comments ALT (test code = ALT) 46 See_Comment [Auto mated message] The system which ge nerated this result transmit karla reference range : <=65. The reference range was not used to interpr et this result as parul l/abnormal. [facility]2018-07-13 04:41:48 Test Item Value Reference Range Interpretation Comments AST (test code = AST) 60 See_Comment [Auto mated message] The system which ge nerated this result transmit karla reference range : <=37. The reference range was not used to interpr et this result as parul l/abnormal. [facility]2018-07-13 04:41:48 Test Item Value Reference Range Interpretation Comments Alk Phos (test code = Alk Phos) 65 39-136 [facility]2018-07-13 04:41:48 Test Item Value Reference Range Interpretation Comments Bili Total (test code = Bili Total) 0.7 0.2-1.3 [place] 010798-07-13 04:41:48 Test Item Value Reference Range Interpretation Comments Bili Indirect (test 0.6 See_Comment [Automa karla message] The code = Bili Indirect) system which generated this result tra nsmitted reference range : <=1.0. The reference r renu was not used to int erpret this result as normal/abnormal . [place] 010798-07-13 04:41:48 Test Item Value Reference Range Interpretation Comments Bili Direct (test code 0.1 See_Comment [Aut omated message] The = Bili Direct) system which generated this result tra nsmitted reference range : <=0.3. The reference r renu was not used to int erpret this result as parul l/abnormal. [facility]2018-07-13 04:41:48 Test Item Value Reference Range Interpretation Comments A/G Ratio (test code = A/G Ratio) 1.1 1 0.7-1.6 [place] 010798-07-13 04:41:48 Test Item Value Reference Range Interpretation Comments Globulin (test code = Globulin) 3.3 2.7-4.2 [place] 796548-07-13 04:41:48 Test Item Value Reference Range Interpretation Comments PTT (test code = PTT) 29.3 s 22.9-35.8 [facility] CenterCoaxyhoDHJSKMJBKC5828-37-33 04:41:48 Test Item Value Reference Range Interpretation Comments INR (test code = INR) 1.19 1 0.85-1.17 [place] 796548-07-13 04:41:48 Test Item Value Reference Range Interpretation Comments PT (test code = PT) 15.2 s 12.0-14.7 [place] 796548-07-13 04:41:48 Test Item Value Reference Range Interpretation Comments Estimated % Lysis Rapid 1.1 See_Comment [Au tomated message] The (test code = Estimated syste m which generated % Lysis Rapid) this result t ransmitted reference range : <=7.5. The reference r renu was not used to int erpret this result as normal/abnormal . [facility] CenterWcqwztaXCPDIOJRKW9123-82-38 04:41:48 Test Item Value Reference Range Interpretation Comments ACT (TEG) Rapid (test code = ACT (TEG) 97 s 86-118 Rapid) [facility] CenterVifwofgPAGTYGJRPC9291-24-07 04:41:48 Test Item Value Reference Range Interpretation Comments G-value Rapid (test code = G-value 8.1 5.0-11.6 Rapid) [facility] CenterBjuesjtILJLQMDSGA8497-46-55 04:41:48 Test Item Value Reference Range Interpretation Comments Split Point Rapid (test code = Split 0.4 min Point Rapid) [facility] CenterJssoupqKNILWNJLZU1835-86-29 04:41:48 Test Item Value Reference Range Interpretation Comments R-time Rapid (test code = R-time 0.5 min 0.4-0.7 Rapid) [facility] CenterMqxenugKCGCWWXEAC2143-92-85 04:41:48 Test Item Value Reference Range Interpretation Comments Angle Rapid (test code = Angle 76 degrees 64-80 Rapid) [facility] CenterWsnqymfAYVKCZZLRR8125-69-76 04:41:48 Test Item Value Reference Range Interpretation Comments Max Amplitude Rapid (test code = Max 62 mm 52-71 Amplitude Rapid) [facility] CenterXxgrztlRONPRAOPHW8476-29-75 04:41:48 Test Item Value Reference Range Interpretation Comments K-time Rapid (test code = K-time 1.2 min 0.6-2.3 Rapid) [facility]QvugzlnONWJMYQCGX6956-85-18 04:41:48 Test Item Value Reference Range Interpretation Comments Etoh (%) (test code = Etoh (%)) no gt [facility] HospitalFuhxjqoEDGBFVVSJM9999-50-74 04:41:48 Test Item Value Reference Range Interpretation Comments Ethanol Lvl (test code = Ethanol Lvl) no gt [facility]2018-07-13 04:41:48 Test Item Value Reference Range Interpretation Comments Lactic Acid Lvl (test code = Lactic 0.8 0.5-2.2 Acid Lvl) [facility]2018-07-13 04:41:48 Test Item Value Reference Range Interpretation Comments Total Protein (test code = Total 7.0 6.4-8.4 Protein) [facility]2018-07-13 04:41:48 Test Item Value Reference Range Interpretation Comments Albumin Lvl (test code = Albumin Lvl) 3.7 3.5-5.0 [place] 010798-07-13 04:41:48 Test Item Value Reference Range Interpretation Comments ALT (test code = ALT) 46 See_Comment [Auto mated message] The system which ge nerated this result transmit karla reference range : <=65. The reference range was not used to interpr et this result as parul l/abnormal. [facility]2018-07-13 04:41:48 Test Item Value Reference Range Interpretation Comments AST (test code = AST) 60 See_Comment [Auto mated message] The system which ge nerated this result transmit karla reference range : <=37. The reference range was not used to interpr et this result as parul l/abnormal. [facility]2018-07-13 04:41:48 Test Item Value Reference Range Interpretation Comments Alk Phos (test code = Alk Phos) 65 39-136 [facility]2018-07-13 04:41:48 Test Item Value Reference Range Interpretation Comments Bili Total (test code = Bili Total) 0.7 0.2-1.3 [facility]2018-07-13 04:41:48 Test Item Value Reference Range Interpretation Comments Bili Indirect (test 0.6 See_Comment [Automa karla message] The code = Bili Indirect) system which generated this result tra nsmitted reference range : <=1.0. The reference r renu was not used to int erpret this result as normal/abnormal . [facility]2018-07-13 04:41:48 Test Item Value Reference Range Interpretation Comments Bili Direct (test code 0.1 See_Comment [Aut omated message] The = Bili Direct) system which generated this result tra nsmitted reference range : <=0.3. The reference r renu was not used to int erpret this result as parul l/abnormal. [facility]2018-07-13 04:41:48 Test Item Value Reference Range Interpretation Comments A/G Ratio (test code = A/G Ratio) 1.1 1 0.7-1.6 [place] 010798-07-13 04:41:48 Test Item Value Reference Range Interpretation Comments Globulin (test code = Globulin) 3.3 2.7-4.2 [facility] CenterSprxmisZJCXAKDLYS5205-37-95 04:41:48 Test Item Value Reference Range Interpretation Comments PTT (test code = PTT) 29.3 s 22.9-35.8 [facility] CenterKmcbqceUWATCYHRQP7250-09-18 04:41:48 Test Item Value Reference Range Interpretation Comments INR (test code = INR) 1.19 1 0.85-1.17 [facility] CenterNxmktvaRQOQQZUBLO7798-54-67 04:41:48 Test Item Value Reference Range Interpretation Comments PT (test code = PT) 15.2 s 12.0-14.7 [facility] CenterQrcrczwRLNESQBBPV4115-51-33 04:41:48 Test Item Value Reference Range Interpretation Comments Estimated % Lysis Rapid 1.1 See_Comment [Au tomated message] The (test code = Estimated syste m which generated % Lysis Rapid) this result t ransmitted reference range : <=7.5. The reference r renu was not used to int erpret this result as normal/abnormal . [facility] CenterSxqqtogITPBDYZRDX1988-63-41 04:41:48 Test Item Value Reference Range Interpretation Comments ACT (TEG) Rapid (test code = ACT (TEG) 97 s 86-118 Rapid) [facility] CenterMkinpfyOAKUGRESGT7691-00-63 04:41:48 Test Item Value Reference Range Interpretation Comments G-value Rapid (test code = G-value 8.1 5.0-11.6 Rapid) [facility] CenterDprztegZWOCHJMTIU8617-41-74 04:41:48 Test Item Value Reference Range Interpretation Comments Split Point Rapid (test code = Split 0.4 min Point Rapid) [facility] CenterKodqrzvJUUVVBGSGF1954-42-19 04:41:48 Test Item Value Reference Range Interpretation Comments R-time Rapid (test code = R-time 0.5 min 0.4-0.7 Rapid) [facility] CenterNozdzlgZRSAJAYDFX3157-15-46 04:41:48 Test Item Value Reference Range Interpretation Comments Angle Rapid (test code = Angle 76 degrees 64-80 Rapid) [facility] CenterQnhcvegNBSMTKQLCW1775-75-51 04:41:48 Test Item Value Reference Range Interpretation Comments Max Amplitude Rapid (test code = Max 62 mm 52-71 Amplitude Rapid) [facility] CenterAyuzoiuRTSMSYGLBO0626-60-05 04:41:48 Test Item Value Reference Range Interpretation Comments K-time Rapid (test code = K-time 1.2 min 0.6-2.3 Rapid) [address]07-13 04:41:48 Test Item Value Reference Range Interpretation Comments Etoh (%) (test code = Etoh (%)) no gt [place] [address]-07-13 04:41:48 Test Item Value Reference Range Interpretation Comments Ethanol Lvl (test code = Ethanol Lvl) no gt [facility]2018-07-13 04:41:48 Test Item Value Reference Range Interpretation Comments Lactic Acid Lvl (test code = Lactic 0.8 0.5-2.2 Acid Lvl) [facility]2018-07-13 04:41:48 Test Item Value Reference Range Interpretation Comments Total Protein (test code = Total 7.0 6.4-8.4 Protein) [place] 010798-07-13 04:41:48 Test Item Value Reference Range Interpretation Comments Albumin Lvl (test code = Albumin Lvl) 3.7 3.5-5.0 [facility]2018-07-13 04:41:48 Test Item Value Reference Range Interpretation Comments ALT (test code = ALT) 46 See_Comment [Auto mated message] The system which ge nerated this result transmit karla reference range : <=65. The reference range was not used to interpr et this result as parul l/abnormal. [facility]2018-07-13 04:41:48 Test Item Value Reference Range Interpretation Comments AST (test code = AST) 60 See_Comment [Auto mated message] The system which ge nerated this result transmit karla reference range : <=37. The reference range was not used to interpr et this result as parul l/abnormal. [facility]2018-07-13 04:41:48 Test Item Value Reference Range Interpretation Comments Alk Phos (test code = Alk Phos) 65 39-136 [facility]2018-07-13 04:41:48 Test Item Value Reference Range Interpretation Comments Bili Total (test code = Bili Total) 0.7 0.2-1.3 [place] 010798-07-13 04:41:48 Test Item Value Reference Range Interpretation Comments Bili Indirect (test 0.6 See_Comment [Automa karla message] The code = Bili Indirect) system which generated this result tra nsmitted reference range : <=1.0. The reference r renu was not used to int erpret this result as normal/abnormal . [facility]2018-07-13 04:41:48 Test Item Value Reference Range Interpretation Comments Bili Direct (test code 0.1 See_Comment [Aut omated message] The = Bili Direct) system which generated this result tra nsmitted reference range : <=0.3. The reference r renu was not used to int erpret this result as parul l/abnormal. [facility]2018-07-13 04:41:48 Test Item Value Reference Range Interpretation Comments A/G Ratio (test code = A/G Ratio) 1.1 1 0.7-1.6 [facility]2018-07-13 04:41:48 Test Item Value Reference Range Interpretation Comments Globulin (test code = Globulin) 3.3 2.7-4.2 [facility] CenterMrcpomeEBSUJARGAV0544-31-31 04:41:48 Test Item Value Reference Range Interpretation Comments PTT (test code = PTT) 29.3 s 22.9-35.8 [facility] CenterJucozeaRUVVVVYXPF8648-26-17 04:41:48 Test Item Value Reference Range Interpretation Comments INR (test code = INR) 1.19 1 0.85-1.17 [facility] CenterNxulwraUAEOTUQOYI7809-34-51 04:41:48 Test Item Value Reference Range Interpretation Comments PT (test code = PT) 15.2 s 12.0-14.7 [facility] CenterVmxlminTTZLZZTRGS3603-60-22 04:41:48 Test Item Value Reference Range Interpretation Comments Estimated % Lysis Rapid 1.1 See_Comment [Au tomated message] The (test code = Estimated syste m which generated % Lysis Rapid) this result t ransmitted reference range : <=7.5. The reference r renu was not used to int erpret this result as normal/abnormal . [facility] CenterCswmeekJDHCQDFLQG1379-39-97 04:41:48 Test Item Value Reference Range Interpretation Comments ACT (TEG) Rapid (test code = ACT (TEG) 97 s 86-118 Rapid) [facility] CenterIdesjmrGLLZLQGBSS0750-43-37 04:41:48 Test Item Value Reference Range Interpretation Comments G-value Rapid (test code = G-value 8.1 5.0-11.6 Rapid) [facility] CenterKhhxqfpZXGEEIBRQH7200-80-88 04:41:48 Test Item Value Reference Range Interpretation Comments Split Point Rapid (test code = Split 0.4 min Point Rapid) [facility] CenterFyvqxmnXMVLPOHDMB7527-65-06 04:41:48 Test Item Value Reference Range Interpretation Comments R-time Rapid (test code = R-time 0.5 min 0.4-0.7 Rapid) [facility] CenterWodilbaCBIPMVRDFS8136-38-39 04:41:48 Test Item Value Reference Range Interpretation Comments Angle Rapid (test code = Angle 76 degrees 64-80 Rapid) [facility] CenterQqgbpkgHYTYIWBRKK9686-99-16 04:41:48 Test Item Value Reference Range Interpretation Comments Max Amplitude Rapid (test code = Max 62 mm 52-71 Amplitude Rapid) [facility] CenterAxgxnnlYHSNSRSDBB2765-61-72 04:41:48 Test Item Value Reference Range Interpretation Comments K-time Rapid (test code = K-time 1.2 min 0.6-2.3 Rapid) [facility]DpvpwzuUCQOMCKBHL1367-42-91 04:41:48 Test Item Value Reference Range Interpretation Comments Etoh (%) (test code = Etoh (%)) no gt [facility] HospitalXnqltrwTYHTELHYAY7525-13-99 04:41:48 Test Item Value Reference Range Interpretation Comments Ethanol Lvl (test code = Ethanol Lvl) no gt [facility]
[2022-11-04 08:58] LABS: SARS-CoV-2 Antigen Rapid Res Negative (Negative)
[2022-11-04 09:00] LABS: Albumin 3.4 g/dL (3.4-5.0); Bilirubin Direct 0.2 mg/dL (0-0.2); Bilirubin Total 0.5 mg/dL (0.2-1.0); Magnesium 2.2 mg/dL (1.6-2.4); Potassium 3.6 mmol/L (3.5-5.1); Troponin High Sensitivity 14.9 pg/mL (<58.9)
[2022-11-04 09:26] LABS: Protime INR 1.08
--- NOTE | 2022-11-04 09:39 | RAD REPORT ---
EXAM DESCRIPTION: Bam Single View11/04/2022 9:16 am CLINICAL HISTORY: Chest pain COMPARISON: August 2022 FINDINGS: Chronic elevation left hemidiaphragm Left lung opacities have mostly resolved. Right lung appears clear of acute infiltrate. Heart is mildly enlarged. Postsurgical changes involve the chest
[2022-11-04] MEDS ORDERED: ASPIRIN 81 MG CHEWABLE TABLET ONE (10:58)
[2022-11-04] MEDS ORDERED: MORPHINE 2 MG/ML SYR ONE (10:58)
[2022-11-04] MEDS ORDERED: ONDANSETRON 4 MG/2 ML VIAL ONE (10:58)
--- NOTE | 2022-11-04 12:26 | EDPHYS ---
Physician Documentation [facility] Name: Octavio Bueno Age: 77 yrs Sex: Male : 1945 Arrival Date: 11/04/2022 Time: 08:11 Bed 14 Private MD: ED Physician Kostas Jeter HPI: 11/04 08:23 This 77 yrs old Male presents to ER via Ambulatory with complaints of Chest Pain. jmm 08:23 The patient or guardian reports chest pain that is located primarily in the substernal [facility] area. Onset: gradually, 1 hour(s) ago. The pain does not radiate. Associated signs and symptoms: Pertinent negatives: abdominal pain, shortness of breath. The chest pain is described as aching. This is a 77 year old male with a history of cardiac transplant, ckd, dm, that presents to the ED with complaints of substernal chest pain beginning approx 1 hour ago. Denies radiation of pain. Denies fever. . Historical: - Allergies: 08:19 Rapamune; ko1 - PMHx: 08:19 BILE DUCT CANCER; Chronic kidney disease stage V; Diabetes - IDDM; Hyperlipidemia; ko1 Hypertension; Migraines r/t head injury; Myocardial infarction; Gout; - PSHx: 08:19 Cholecystectomy; Heart transplant; hernia; ko1 - Immunization history:: Adult Immunizations up to date. - Social history:: Smoking status: Patient denies any tobacco usage or history of. ROS: 08:23 Constitutional: Negative for fever, chills, and weight loss. jmm 08:23 Cardiovascular: Positive for chest pain. 08:23 All other systems are negative. Exam: 08:23 Constitutional: This is a well developed, well nourished patient who is awake, alert, jmm and in no acute distress. Head/Face: atraumatic. Eyes: EOMI, no conjunctival erythema appreciated ENT: Moist Mucus Membranes Neck: Trachea midline, Supple Chest/axilla: Normal chest wall appearance and motion. Cardiovascular: Regular rate and rhythm. No edema appreciated Respiratory: Normal respirations, no respiratory distress appreciated Abdomen/GI: Non distended Back: Normal ROM Skin: General appearance color normal MS/ Extremity: Moves all extremities, no obvious deformities appreciated, no edema noted to the lower extremities Neuro: Awake and alert Psych: Behavior is normal, Mood is normal, Patient is cooperative and pleasant Vital Signs: 08:30 BP 155 / 85; Pulse 80; Resp 18; Temp 98; Pulse Ox 95% ; ko1 08:45 BP 152 / 81; Pulse 77; Resp 16; Pulse Ox 93% ; ko1 09:00 BP 147 / 79; Pulse 76; Resp 18; Pulse Ox 95% ; ko1 09:15 BP 150 / 77; Pulse 75; Resp 18; Pulse Ox 94% ; ko1 09:30 BP 130 / 91; Pulse 73; Resp 16; Pulse Ox 94% ; ko1 12:47 BP 151 / 77; Pulse 79; Resp 17; Pulse Ox 98% on R/A; kr3 MDM: 08:23 Patient medically screened. [facility] 12:25 The patient was given aspirin in the Emergency Department. Data reviewed: vital signs, [facility] nurses notes. Consideration of Admission/Observation. Refusal of service: The patient/guardian displays adequate decision making capability and despite a detailed discussion of alternatives, benefits, risks, and consequences refuses: Admission to the hospital for further work-up and treatment. 17:29 ED course: Troponin was within normal limits on initial exam. I did offer to admit the [facility] patient for further observation. They had a preference to repeat troponin level. We will follow-up with her PCP closely. RN did contact the sales project coordinator that stated the patient was fine to follow-up outpatient. 11/04 08:23 Order name: Basic Metabolic Panel; Complete Time: 09:27 [facility] 11/04 08:23 Order name: CBC with Diff; Complete Time: 09:27 [facility] 11/04 08:23 Order name: LFT's; Complete Time: 09:27 [facility] 11/04 08:23 Order name: Magnesium; Complete Time: 09:27 [facility] 11/04 08:23 Order name: NT PRO-BNP; Complete Time: 09:27 [facility] 11/04 08:23 Order name: PT-INR; Complete Time: 09:43 [facility] 11/04 08:23 Order name: Troponin HS; Complete Time: 09:27 [facility] 11/04 08:23 Order name: XRAY Chest (1 view); Complete Time: 09:43 [facility] 11/04 08:23 Order name: EKG; Complete Time: 08:24 [facility] 11/04 08:24 Order name: SARS RAPID; Complete Time: 09:27 [facility] 11/04 10:42 Order name: Troponin High Sensitivity: Draw at 3 hour dilcia; Complete Time: 12:25 [facility] 11/04 08:23 Order name: Cardiac monitoring; Complete Time: 08:41 [facility] 11/04 08:23 Order name: EKG - Nurse/Tech; Complete Time: 08:41 [facility] 11/04 08:23 Order name: IV Saline Lock; Complete Time: 08:41 [facility] 11/04 08:23 Order name: Labs collected and sent; Complete Time: 08:41 [facility] 11/04 08:23 Order name: O2 Per Protocol; Complete Time: 08:41 [facility] 11/04 08:23 Order name: O2 Sat Monitoring; Complete Time: 08:41 [facility] 11/04 08:53 Order name: Labs - recollect needed: recollect light blue top; Complete Time: 09:06 bd Administered Medications: 10:58 Drug: Zofran (Ondansetron) 4 mg Route: IVP; Site: right antecubital; ko1 12:49 Follow up: Response: No adverse reaction kr3 10:58 Drug: Aspirin Chewable Tablet 324 mg Route: PO; ko1 12:50 Follow up: Response: No adverse reaction kr3 11:04 Drug: morphine 2 mg Route: IVP; Infused Over: 4 mins; Site: right antecubital; ko1 12:49 Follow up: Response: No adverse reaction; RASS: Drowsy (-1) kr3 Disposition: 18:50 Co-signature as Attending Physician, Kostas EVANGELISTA was immediately available on-site ms3 in the Emergency Department for consultation in the care of the patient. Disposition Summary: 11/04/22 12:26 Discharge Ordered Location: Home [facility] Condition: Stable [facility] Diagnosis - Chest pain, unspecified jmm Followup: m - With: Private Physician - When: Tomorrow - Reason: Recheck today's complaints, Continuance of care, Re-evaluation by your physician Discharge Instructions: - Discharge Summary Sheet jmm - Nonspecific Chest Pain, Adult jmm Forms: - Medication Reconciliation Form jmm - Thank You Letter jmm - Antibiotic Education jmm - Prescription Opioid Use jm Signatures: Dispatcher [employer] EDHallie Cortés Joel, PA PA jmm Sims, Marcus, DO DO ms3 Monik Perez, RN RN ko1 Hillary Jordan RN kr3
--- NOTE | 2022-11-04 12:26 | ER ---
Nurse's Notes [facility] Name: Octavio Bueno Age: 77 yrs Sex: Male : 1945 Arrival Date: 11/04/2022 Time: 08:11 Bed 14 Private MD: Diagnosis: Chest pain, unspecified Presentation: 11/04 08:16 Chief complaint: Patient states: chest pain started in the middle of my chest about an ko1 hour ago, its also on both sides of my ribs (points toward lower ribs). I had my 5th radiation treatment (of 5) Wednesday. Bile duct cancer. Coronavirus screen: At this time, the client does not indicate any symptoms associated with coronavirus-19. Ebola Screen: No symptoms or risks identified at this time. Initial Sepsis Screen: Does the patient meet any 2 criteria? No. Patient's initial sepsis screen is negative. Does the patient have a suspected source of infection? No. Patient's initial sepsis screen is negative. Risk Assessment: Do you want to hurt yourself or someone else? Patient reports no desire to harm self or others. Onset of symptoms was November 04, 2022 at 07:00. 08:16 Method Of Arrival: Ambulatory ko1 08:16 Acuity: YAHIR 2 ko1 Triage Assessment: 08:19 General: Appears in no apparent distress. uncomfortable, Behavior is calm, cooperative, ko1 appropriate for age. Pain: Complains of pain in chest. Cardiovascular: Reports chest pain, hx of heart transplant. Historical: - Allergies: 08:19 Rapamune; ko1 - PMHx: 08:19 BILE DUCT CANCER; Chronic kidney disease stage V; Diabetes - IDDM; Hyperlipidemia; ko1 Hypertension; Migraines r/t head injury; Myocardial infarction; Gout; - PSHx: 08:19 Cholecystectomy; Heart transplant; hernia; ko1 - Immunization history:: Adult Immunizations up to date. - Social history:: Smoking status: Patient denies any tobacco usage or history of. Screenin:15 [facility] ED Fall Risk Assessment (Adult) History of falling in the last 3 months, ko1 including since admission No falls in past 3 months (0 pts) Confusion or Disorientation No (0 pts) Intoxicated or Sedated No (0 pts) Impaired Gait No (0 pts) Mobility Assist Device Used No (0 pt) Altered Elimination No (0 pt) Score/Fall Risk Level 0 - 2 = Low Risk Oriented to surroundings, Maintained a safe environment, Educated pt \T\ family on fall prevention, incl call for assistance when getting out of bed, Assessed \T\ reinforced patient's understanding of fall precautions, Provided non-skid footwear, Hourly rounding (assess needs \T\ fall precautionary measures) done, Used ambulatory aids as needed (educated on \T\ assisted with), Used gait belt as appropriate. Abuse screen: Denies threats or abuse. Denies injuries from another. Nutritional screening: No deficits noted. Tuberculosis screening: No symptoms or risk factors identified. Assessment: 08:15 General: Appears in no apparent distress. uncomfortable, Behavior is calm, cooperative, ko1 appropriate for age. Pain: Pain does not radiate. Pain began 1 hour ago. Neuro: No deficits noted. Cardiovascular: No deficits noted. Respiratory: No deficits noted. GI: No deficits noted. : No deficits noted. EENT: No deficits noted. Derm: No deficits noted. Musculoskeletal: No deficits noted. 10:17 Reassessment: spoke with chest pain coordinator Chase Roman, who said he would contact ko patients regarding a follow up with the transplant center on Wednesday. 12:48 Reassessment: Patient appears in no apparent distress at this time. Patient and/or kr3 family updated on plan of care and expected duration. Pain level reassessed. Patient is alert, oriented x 3, equal unlabored respirations, skin warm/dry/pink. Vital Signs: 08:30 BP 155 / 85; Pulse 80; Resp 18; Temp 98; Pulse Ox 95% ; ko1 08:45 BP 152 / 81; Pulse 77; Resp 16; Pulse Ox 93% ; ko1 09:00 BP 147 / 79; Pulse 76; Resp 18; Pulse Ox 95% ; ko1 09:15 BP 150 / 77; Pulse 75; Resp 18; Pulse Ox 94% ; ko1 09:30 BP 130 / 91; Pulse 73; Resp 16; Pulse Ox 94% ; ko1 12:47 BP 151 / 77; Pulse 79; Resp 17; Pulse Ox 98% on R/A; kr3 ED Course: 08:11 Patient arrived in ED. as 08:12 Flo Barrios PA is PHCP. hilary 08:12 Kostas Jeter DO is Attending Physician. [facility] 08:15 Monik Perez, RN is Primary Nurse. ko1 08:15 Patient has correct armband on for positive identification. Fall risk band placed. ko1 Placed in gown. Bed in low position. Call light in reach. Side rails up X 1. Adult w/ patient. Client placed on continuous cardiac and pulse oximetry monitoring. NIBP monitoring applied. telemetry monitor on. Door closed. Lights dimmed. Warm blanket given. Pillow given. 08:15 No provider procedures requiring assistance completed. ko1 08:18 Triage completed. ko1 08:19 Arm band placed on right wrist. ko1 08:30 Inserted saline lock: 20 gauge in right antecubital area, using aseptic technique. ko1 Blood collected. Patient maintains SpO2 saturation greater than 95% on room air. 08:41 SARS RAPID Sent. ko1 08:41 Basic Metabolic Panel Sent. ko1 08:41 CBC with Diff Sent. ko1 08:41 LFT's Sent. ko1 08:41 Magnesium Sent. ko1 08:41 NT PRO-BNP Sent. ko1 08:41 PT-INR Sent. ko1 08:41 Troponin HS Sent. ko1 09:06 PT-INR Sent. ko1 09:18 XRAY Chest (1 view) In Process Unspecified. EDMS 11:48 Troponin High Sensitivity: Draw at 3 hour dilcia Sent. ko1 Administered Medications: 10:58 Drug: Zofran (Ondansetron) 4 mg Route: IVP; Site: right antecubital; ko1 12:49 Follow up: Response: No adverse reaction kr3 10:58 Drug: Aspirin Chewable Tablet 324 mg Route: PO; ko1 12:50 Follow up: Response: No adverse reaction kr3 11:04 Drug: morphine 2 mg Route: IVP; Infused Over: 4 mins; Site: right antecubital; ko1 12:49 Follow up: Response: No adverse reaction; RASS: Drowsy (-1) kr3 Medication: 08:15 VIS not applicable for this client. ko1 Outcome: 12:26 Discharge ordered by . hilary 12:49 Patient left the ED. kr3 Signatures: Dispatcher [employer] EDMS Flo Barrios PA PA jmm Martinez, Amelia as Reid, Kelley, RN RN kr3 Chris, Monik, RN RN ko1
[2022-11-04 12:53] VITALS: TEMP 98
[2022-11-04 12:59] VITALS: BP 151/77; O2SAT 98
--- NOTE | 2022-11-05 07:57 | EKG ---
Test Date: 2022-11-04 Test Time: 08:21:23 [place] Floor Layer: ALP MEASUREMENT RESULTS: Intervals: Rate: 90 IA: 136 QRSD: 78 QT: 376 QTc: 459 Diamond: P: 82 IA: 136 QRS: 74 T: 82 INTERPRETIVE STATEMENTS: Normal sinus rhythm Normal ECG Compared to ECG 09/20/2022 17:16:45 Right-axis deviation no longer present Myocardial infarct finding no longer present Electronically Signed On 11-05-22 07:54:52 FINANCIAL PROFESSIONAL by [facility]
== END 2022-11-04 12:49 | disposition home or self-care (01) ==
LOC: ER 08:09
DX: R07.89 Other chest pain (principal); Z94.1 Heart transplant status; E11.22 Type 2 diabetes mellitus with diabetic chronic kidney disease; I12.0 Hypertensive chronic kidney disease with stage 5 chronic kidney disease or end stage renal disease; N18.5 Chronic kidney disease, stage 5; Z20.822 Contact with and (suspected) exposure to COVID-19
CPT/HCPCS: 93005; 85025; 80048; 36415; 83735; 85610; 80076; 84484 ×2; 83880; 71045; 87811; J2270; J2405

== ENCOUNTER 2023-03-01 07:52 | Emergency (ER) | payer OTHER ==
--- OUTSIDE RECORDS SUMMARY | 2023-03-01 07:56 | XMS REPORT | Clinical Summary ---
:1945 Author Organization [facility] MD [facility] Address [address] [place] [address] Care Team Providers Name Role Phone Kevin [...] ONCE 6 DAILY potassium chloride TAKE ONE 3 A ctive (K-DUR,KLOR-CON M) TABLET BY 6 [...] 0 Active 5 mg tablet mouth daily. docusate sodium daily. 0 Acti ve (Colace) 100 mg 8 capsule omega 5-pop-hae-fish Take 2,000 mg 0 Active oil 1,000 [...] mg 2 tablet calcium daily. 0 Active [id number] no.293 (Alive Calcium-Vitamin D3) 260 mg calcium- 25 mcg-50 mg chew cranberry 400 mg cap daily. 0 Active docusate sodium 100 daily. 0 Active mg/5 mL enem 8 pravastatin TAKE ONE 2 03/17/20 Disconti nued (PRAVACHOL) 40 mg TABLET BY 6 22 (T herapy tablet MOUTH IN THE [facility] ed) LATE EVENING DAILY. ferrous sulfate 325 Take 325 mg by 0 02/05 mg (65 mg elemental mouth daily. 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 Clinical Support Kevin Nicolas MD Squa mous cell carcinoma of nose (Primary Dx); Neoplasm of unc ertain behavior of skin; Actinic keratos is 03/17/2022 Travel 03/17/2022 Orders Only Uday Mccloud MD Squamous cell carcinoma of nose (Primary D x) after 03/01/2022 Social History Tobacco Use Types Packs/Day Years [...] Due Date Last Done Comments COVID-19 Vaccination (6 - Moderna 08/18/2021 06/23/2021, , series) 11/18/2020, Additional history exists Procedures Procedure Name Priority Date/Time Associated Comments Diagnosis PATHOLOGY BIOPSY Routine 03/17/2022 5:20 PM Resul ts for this INTERPRETATION CDT procedure are in the results section. after 03/01/2022 Results Pathology Biopsy Interpretation (03/17/2022 5:20 PM CDT) Component Value Ref Test Analysis Performed Pathologis t Range Method Time At Signature Submitted A: Actinic 03/19/2022 [facility] Clinical keratosis on 1:28 PM History frozen biopsy CDT Diagnosis A: Skin, right preauricular cheek, shave: 03/19/2022 [facility] Electronically Hyperplastic actinic keratos is with adnexal extension and focal verrucous features, present at peripheral and focally deep tissue edges. 1:28 PM signed by Art Dermal fibrosis and folliculitis. CDT Zuleyma Levine MD on 03/19/2022 at 1:28 PM Gross A: 03/19/2022 [facility] Description skin, right preauricular ch [place]: Two previously inked, campbell skin and shaves, 0.6 x 0.2 x 0.1 cm and 0.6 x 0.3 x 0.2 cm , entirely submitted in A1. ET 1:28 PM CDT Disclaimer "Some tests 03/19/2022 [facility] reported here may 1:28 PM have been CDT developed and performance characteristics determined by [facility]. These tests have not been specifically cleared or approved by the U.S. Food and Drug Administration. If applicable, controls were reviewed and showed appropriate reactivity." Specimen Anatomical Collection Method Collection Time Receive d Time (Source) Location / / Volume Laterality Tissue (Skin) 03/17/2022 5:20 PM 03/18/20 1:43 CDT PM CDT Kevin Amaya MD LAB PATHOLOGY ORDERABLES Performing Organization Address City/State/ZIP Code Phon e Number [facility] [place] [address] [address] [place] after 03/01/2022 Insurance Payer Benefit Plan / Subscriber ID Effective Dates Phone Addre ss Type Group MEDICARE MEDICARE PART [id number] 1997-Presen [phone] NOVITA S Medicare A AND B t 2 SOLUTIONS [address] [place] [id number] GENERIC GENERIC [id number] 2008-Presen [phone] [address] [address] PPO MEDICARE t 0 [place], [place] SUP-SECONDARY [id number] ONLY Octavio Bueno Personal/Family Self 1945 [address] 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
[2023-03-01 08:21] LABS: Absolute Lymphocytes (CBC) 0.3 K/uL (0.7-4.9); Hematocrit 35.6 % (39.6-49.0); Lymphocytes % 4.7 % (15.3-44.8); MCV 94.3 fL (80-100); MPV 8.5 fL (7.6-11.3); RBC Red Blood Cell Count 3.78 M/uL (4.33-5.43)
[2023-03-01] MEDS ORDERED: NA CHLORIDE 0.9% 2,000 ML ONE (08:27)
[2023-03-01] MEDS ORDERED: NA CHLORIDE 0.9% 500 ML ONE ×2 (08:27→18:21)
[2023-03-01] MEDS ORDERED: CEFTRIAXONE 1000 MG/VIAL ONE (08:27)
[2023-03-01] MEDS ORDERED: FAMOTIDINE 20 MG/2 ML VIAL IV ONE (08:28)
[2023-03-01] MEDS ORDERED: NA CHLORIDE 0.9% 100 ML ONE ×2 (08:28→09:21)
[2023-03-01 08:29] LABS: Protime INR 1.1
--- OUTSIDE RECORDS SUMMARY | 2023-03-01 08:30 | XMS REPORT | Continuity of Care Document ---
:1945 Author Organization [facility] t Address [address] [place] [address] [place] [id number] Care Team Providers Name Role Phone Agent, Berenice Babs Primary Care Physician SYSTEM, PROVIDER NOT IN Attending Clinician Unavailable BENJAMIN AMAYA Attending Clinician Unavailable Laurent aGle MD Attending Clinician [phone] Tracy Roman RN Attending Clinician Unavailable Lefty Dobson RN Attending Clinician Unavailable Dayami Aguilar MA Attending Clinician Unavailable Trevon Parikh MD Attending Clinician Danica HUNTER, Manjeet Castillo Attending Clinician [phone] Vaibhav Faulkner MD Attending Clinician Pablo BLANK, Bob Swift Attending Clinician [phone] Ophelia Shaw LVN Attending Clinician Unavailable Cherry BLANK, Dylan Zaragoza Attending Clinician Angel Luis Mejia MD Attending Clinician Tyree BLANK, Savannah Attending Clinician Roby BLANK, Adela Islas Attending Clinician Cale BLANK, Mark Attending Clinician Leeanne IN STORE MARKETING ASSOCIATE, Kala Attending Clinician Gabe BLANK, Jackelyn Attending Clinician Connor BLANK, Tejinder Child Attending Clinician Rajiv LAWRENCE, Gideon Attending Clinician Unavailable Rajeev MOORE, Lesly Sherwood Attending Clinician [phone] Chrissy BLANK, Alexis Attending Clinician Coreen RN, Nse Attending Clinician Unavailable Haider BLANK, Britney Leach Attending Clinician Judd TODD, Sapphire Attending Clinician Unavailable Dmitri BLNAK PhD, Stanley Attending Clinician Miquel LAWRENCE, Linda Attending Clinician Unavailable Provider, Unknown Attending Clinician Unavailable Manoj BLANK, Kahlil uCba Attending Clinician Kade BLANK, Geraldine Attending Clinician Wolfgang Ibarra MD Attending Clinician Aniceto TODD, Vero Attending Clinician Unavailable Zach TODD, Sanjuana Attending Clinician Unavailable Leo BLANK, Tracy Gutierrez Attending Clinician Yoselyn BLANK, Margaret Attending Clinician Minal BLANK, Yash Attending Clinician Asked, No Pcp Attending Clinician Unavailable Corinne_Jack Attending Clinician Unavailable Rebecca Barajas MA Attending Clinician Unavailable Uday Gillespie MD Attending Clinician Domingo LAWRENCE, Hortensia Attending Clinician Unavailable Albin Duran Attending Clinician Yeimy BLANK, Nicole Elise Attending Clinician Lucero Veronica MA Attending Clinician Unavailable Jaime Sun Attending Clinician [phone] Kwasi LAWRENCE, Paty Chaidez Attending Clinician Unavailable Edelmira Gallo MA Attending Clinician Unavailable Jason LAWRENCE, Miranda Attending Clinician Unavailable Sia BLANK, Patricio Attending Clinician Angus LAWRENCE, Clarisa Attending Clinician Unavailable Rut BLANK, Yariel Turner Attending Clinician Anshu BLANK, Smooth Attending Clinician Diego Jaime RN, Mahogany Attending Clinician Unavailable Soha Duran MD Attending Clinician Tyree BLANK, India Rodrigues Attending Clinician [phone] Theo BLANK, Pebbles Attending Clinician Janet Zendejas MD Attending Clinician MD [place] BLANK Attending Clinician UnavailRob Hodges Attending Clinician Unavailable Musa Ray RN Attending Clinician Unavailable GILBERTO DANIELS Attending Clinician Unavailable MAYURI FRIEND Attending Clinician Unavailable MD MAYURI FRIEND Attending Clinician Unavailable RIGOBERTO BOOGIE Attending Clinician Unavailable Nurse, Adc Pob Immunization Attending Clinician Unavailable Rigoberto Boogie DO Attending Clinician MAGNUS RUFF Attending Clinician Unavailable OPHELIA VILLAGRAN Attending Clinician Unavailable RAKAN MURCIA Attending Clinician Unavailable FAMILIA NOLEN Attending Clinician Unavailable Doctor Unassigned, [place] Attending Clinician Unavailable YAZ GALARZA Attending Clinician Unavailable LINDSEY RITTER Attending Clinician Unavailable Radiology Attending Clinician Unavailable JELLY MCMULLEN Attending Clinician Unavailable Viri Lo Attending Clinician BENJAMIN AMAYA Attending Clinician Unavailable SAVANNAH BLANK Admitting Clinician Unavailable ANGEL LUIS MEJIA Admitting Clinician Unavailable Lapin_S Admitting Clinician Unavailable SOHA DURAN Admitting Clinician Unavailable MD SOHA DURAN Admitting Clinician Unavailable YAZ GALARZA Admitting Clinician Unavailable JELLY MCMULLEN Admitting Clinician Unavailable Viri Lo Admitting Clinician Payers Payer Name Policy Type Policy Number Effective Date Expiration Date S p[place] MEDICARE PART A AND [id number] 1997 B 00:00:00 MEDICARE B-[place]: [id number] 1997 [place] 00:00:00 [facility] [id number] [facility] (MEDICARE REPLACEMENT HMO) MEDICARE PART A \\T\\ [id number] 1997 B 00:00:00 COMMERCIAL [id number] 2008 NON-CONTRACT 00:00:00 GENERIC Problems Condition Condition Condition Status Onset Resolution Last Treating Co mments Source Name Details Category Date Date Treatment Clinician Date 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 00:00: Hospit a with with 00 l hyperglyce hyperglyce mor mor Other Other Disease Active Methodi hyperlipid hyperlipid 5-10 st emia emia 00:00: Hospita 00 l Subclinica Subclinica Disease Active M ethodi l l [address] hypothyroi hypothyroi 00:00: Ho spita dism dism 00 l Vitamin D Vitamin D Disease Active Met hodi deficiency deficiency 5- st 00:00: Hospita 00 l Chest Chest Disease Active Methodi pain, pain, 509 st unspecifie unspecifie 00:00: Ho spita d type d type 00 l Clinical Clinical Disease Active 2021-09 Metho di diagnosis diagnosis of of 00:00: Hospita COVID-19 COVID-19 00 l COVID COVID Disease Active 2021-09 Methodi 11-21 st 00:00: Hospita 00 l Abrasion Abrasion Disease Active 2021-09 Metho di of left of left [address] st upper arm upper arm 00:00: Hosp [facility] 00 l Acute Acute Disease Active 2021-09 Methodi kidney kidney [address] st failure, failure, 00:00: Hospit a unspecifie unspecifie 00 l d d Unspecifie Unspecifie Disease Active 2021-09 M ethodi d d 2-16 st [place] 00:00: Ho spita a coli (E. a coli (E. 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 Added automatic ally from request for surgery [id number] Subclinica Subclinica Disease Active M ethodi l l [address] hypothyroi hypothyroi 00:00: Ho spita dism dism 00 l Traumatic Traumatic Disease Active Met hodi hemopneumo hemopneumo 04-29 st thorax, thorax, 00:00: Hospita initial initial 00 l encounter encounter MULTIPLE MULTIPLE Diagnosis Active 2018-04-27 Memoria RIGHT RIGHT 04-07 22:11:00 l SIDED RIB SIDED RIB 00:00: Herm kris FX FX Active 04/07/2018 [facility] GO GO Diagnosis Active 2018-04-07 Memoria BILLING/ BILLING/ 04-07 23:03:00 l LFLT #3435 LFLT #3435 00:00: He rmann Active 04/07/2018 [facility] Diarrhea Diarrhea Disease Active Metho di 6-01 st 00:00: Hospita 00 l Cellulitis Cellulitis Disease Active M ethodi 4-23 st 00:00: Hospita 00 l Chest pain Chest pain Disease Active 2016-09 M ethodi 1-09 st 00:00: Hospita 00 l 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 Rapamune intoleran ce. 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 FK 1 mg BID ; MMF 500 mg BID ; Prednison e 5Failed Rapamune attempt twiceDSA recdDate Type I Type II 02/21/20 Cw5 6282 none 11/02/19 Cw5 9237 none 11/17/18 Cw 2243 none 11/08/2017 Cw5 3684 DP11 4641 [...] Disease Active Metho di of of 11-14 st endocrine endocrine 00:00: Hosp [facility] system system [...] Echo CMV Level Annual Year 12 11/21/18 [facility] clear BNP 155, SCr 1.87, GFR 34, Chol 141,osteo penia, clear coronarie s on cath 60-64 neg 6.6 Clinic 01/09/19 Post local HOSP (5 days) Influenza & pneumonia LFP988; SCr 1.89 3.8 Clinic 02/06/19 C/O memory [...] doing better GI Notes 02/08/20 EGD & [place] Performed ; multiple polyps but no carcinoma [...] carcinoma Bone Scan- no metastasi s noted to start Radiation tx Y-16 Annual 12/25/22 CPETA MRIA-MapA -Sure 32<0.12 BNP 49, Scr 2.67 / GFR 24, HA1c 6.3 , Chol 182, 70/96, TRG 140, Reduced liver massC Pet: CAV 0; Calcium Score 81. 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: Ref to [facility] vascular Echo 65-69 4.4 0.5 BID ER -> admit 01/24/23 ER -> c/o chest pain x 2 days, possible fluid overload HLD HLD Disease Active Overview: Method i (hyperlipi (hyperlipi [address] demia) demia) 00:00: g of [...] M ethodi s of s of 03-03 st esophagus esophagus 00:00: Hosp [facility] 00 l Gastroesop Gastroesop Disease Active M ethodi hageal hageal 03-03 st reflux reflux 00:00: Hospita disease disease 00 l No known No known Disease UT active active Health problems problems Acute Acute Problem 2018-11-05 Memor ia kidney kidney 13:12:34 l failure, failure, Brent huggins unspecifie unspecifie d d 11/05/2018 [facility] Acute Acute Problem 2018-11-05 Memor ia posthemorr posthemorr 13:12:34 l karan russo Sae anemia anemia 11/05/2018 [facility] Heart Heart Problem 2018-11-05 Memor ia 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:12:34 l status status Sae 11/05/2018 [facility] Urinary Urinary Problem 2018-11-05 Me moria tract tract 13:12:34 l infection, infection, He rmann site not site not specified specified 11/05/2018 [facility] Atelectasi Atelectas Problem 2018-11-05 Memoria s is 13:12:34 l 11/05/2018 Brent huggins [facility] Fall on Fall on Problem 2018-11-05 Me moria and from and from 13:12:34 l ladder, ladderSae initial initial encounter encounter 11/05/2018 [facility] 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 13:12:34 l mellitus mellitus Brent huggins 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 11/05/2018 [facility] Abrasion Abrasion Problem 2018-11-05 Memoria of left of left 13:12:34 l upper arm, upper arm, He rmann initial initial encounter encounter 11/05/2018 [facility] Hyperlipid Hyperlipi Problem 2018-11-05 Memoria emia, demia, 13:12:34 l unspecifie unspecifie He rmann d d 11/05/2018 [facility] Traumatic Traumatic Problem 2018-11-05 Memoria subcutaneo subcutaneo 13:12:34 l us us Sae emphysema, emphysema, initial initial encounter encounter 11/05/2018 [facility] Acute pain Acute Problem 2018-11-05 M emoria due to pain due 13:12:34 l trauma to trauma [place] 11/05/2018 [facility] supervisor intermediates supervisor intermediates Problem 2018-11-05 Memoria (current) (current) 13:12:34 l use of use of Sae insulin insulin 11/05/2018 [facility] Hypoxemia Hypoxemia Problem 2018-11-05 Memoria 11/05/2018 13:12:34 l [facility] Unspecifie Problem 2018-11-05 M loy d Unspecifie 13:12:34 l [place] d Brent huggins a coli [E. [place] coli] as a coli [E. 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 [place] 11/05/2018 [facility] Gastro-eso Gastro-es Problem 2018-11-05 Memoria phageal ophageal 13:12:34 l reflux reflux [place] disease disease without without esophagiti esophagiti s s 11/05/2018 [facility] Hyperkalem Hyperkale Problem 2018-11-05 Memoria ia mor 13:12:34 l 11/05/2018 Brent huggins [facility] Diarrhea, Diarrhea, Problem 2018-11-05 Memoria unspecifie unspecifie 13:12:34 l d d [place] 11/05/2018 [facility] Contusion Contusion Problem 2018-11-05 Memoria of of 13:12:34 l abdominal abdominal Herm kris wall, wall, initial initial encounter encounter 11/05/2018 [facility] MULTIPLE MULTIPLE Diagnosis Active 2018-04-27 Memoria FRACTURES FRACTURES 22:11:00 l OF RIBS, OF RIBS, Brent n UNSP SIDE, UNSP SIDE, I I Active [facility] Multiple Multiple Problem 2018-11-05 Memoria fractures fractures 13:12:34 l of ribs, of ribs, Brent n right right side, side, initial initial encounter encounter for closed for closed fracture fracture 11/05/2018 [facility] Hypertensi Hypertens Problem 2018-11-05 Memoria ve heart tricia heart 13:12:34 l and and [place] chronic chronic kidney kidney disease disease with heart with heart failure failure and stage and stage 1 through 1 through stage 4 stage 4 chronic chronic kidney kidney disease, disease, or or unspecifie unspecifie d chronic d chronic kidney kidney disease disease 11/05/2018 [facility] Chronic Chronic Problem 2018-11-05 Ia moria kidney kidney 13:12:34 l disease, disease, Brent n stage 4 stage 4 (severe) (severe) 11/05/2018 [facility] Contusion Contusion Problem 2018-11-05 Memoria of lung, of lung, 13:12:34 l unilateral unilateral He rmann , initial , initial encounter encounter 11/05/2018 [facility] Acidosis Acidosis Problem 2018-11-05 Memoria 11/05/2018 13:12:34 l [facility] Unspecifie Unspecifi Problem 2018-11-05 Memoria d fracture ed 13:12:34 l of T9-T10 fracture Mallorie nn vertebra, of T9-T10 initial vertebra, encounter initial for closed encounter fracture for closed fracture 11/05/2018 [facility] History of Past Illness Condition Condition Condition Status Onset Resolution Last Treating Co mments Source Name Details Category Date Date Treatment Clinician Date Traumatic Traumatic Problem 2017-2018-11-05 2018-11-05 Memoria hemopneumo hemopneumo 8- 13:12:34 13:12:34 l thorax, thorax, 03:07: Sae initial initial 22 encounter encounter 04/29/2018 11/05/2018 [facility] Allergies, Adverse Reactions, Alerts Allergy Allergy Status Severity Reaction(s) Onset Inactive Treating Comm ents Source Name Type Date Date Clinician Adhesive Propensi Active Other (See 2017-09 TEARS Un christian Tape-Nai ty to Comments) 2-19 SKIN. [place] ity of icones adverse 00:00: WITH [place] reaction 00 PAPER MD [facility] Adhesive Drug Active Other (See 2017-09 TEARS [...] Healt h Adhesive 00:00: WITH 00 PAPER SIROLIMU DRUG Active 2015-09 MD Jack MORENO -10 Margot 00:00: n 00 Sirolimu Propensi Active 2015-09 Univer s s ty to 1-10 ity of adverse 00:00: [place] reaction 00 MD [facility] Brunilda Propensi Active Swelling 2015-09 Meth susan s ty to - st adverse 00:00: Hospita reaction 00 l s to drug Rapamune Allergy Active [facility] U[facility] e NO KNOWN Drug Active [facility] ALLERGIE Class ity of [facility] Family History Family Member Diagnosis Comments Start Date Stop Date Source Natural brother No Known Problems [facility] Natural brother Heart disease [facility] Natural son No Known Problems [facility] Natural daughter Hypertension [facility] Natural daughter Colon cancer [facility] Natural father Heart attack [facility] Natural father Heart disease [facility] Natural mother Diabetes [facility] mother Heart disease [facility] Natural sister Hypertension [facility] Social History Social Habit Start Date Stop Date Quantity Comments Source Gender identity 2019-07-16 Identifies as male M ethodist 10:46:52 gender (finding) Hospital Sexual orientation 2019-07-16 Heterosexual Meth odist 10:46:52 (finding) Hospital History of tobacco Cigarette Smoker Islam use Hospital History SDOH Islam Alcohol Frequency Hospita l History SDOH Islam Alcohol Binge Hospital Alcohol intake 2023-02-09 2023-02-09 [facility]00 alcohol (finding) Hospita l History of Social 2023-02-09 2023-02-[address] function 00:00:00 00:00:00 Hospital Exposure to 2022-12-01 2022-12-11 Not sure [facility] SARS-CoV-2 (event) 00:00:00 09:20:00 Cigarettes smoked 2022-10-05 2022-10-[address] current (pack per 00:00:00 00:00:00 Hospita l day) - Reported Cigarette 2022-10-05 2022-10-05 Islam pack-years 00:00:00 00:00:00 Hospital Tobacco use and 2022-10-05 2022-10-05 Smokeless tobacco Me thodist exposure 00:00:00 00:00:00 non-user Hospital Tobacco Comment 2022-10-05 2022-10-05 used to smoke 1 ppd Islam 00:00:00 00:00:00 not since 1987 Hospital Alcohol Comment 2021-02-18 2021-02-18 A beere once or Meth odist 00:00:00 00:00:00 twice a month Hospital History SDOH 2020-10-03 2020-10-03 1 Islam Alcohol Std Drinks 00:00:00 00:00:00 Hospit al Sex [birth year] At [birth year] SHAHZAD Paiz 00:00:00 00:00:00 Medical Center Smoking Status Start Date Stop Date Source Unknown if ever smoked [facility] Ex-smoker 2022-10-05 00:00:00 2022-10-05 00:00:00 [facility] Social History [facility] Medications Ordered Filled Start Stop Current Ordering Indication Dosage Frequency Signature Comments Components Source Medication Medication Date Date Medication? Clinician (SIG) Name Name insulin Yes 18U QD Inject 18 Metho di 70/30 NPH 6-[address] and regular 11:56: under the H ospita human 56 skin l (HumuLIN nightly. 70/30) 100 unit/mL (70-30) injection insulin 8U QD Inject 8 Metho di 70/30 NPH 6-02 06-[address] and regular 11:56: 00:00 under the Hospita human 52 :00 skin every l (HumuLIN morning. 70/30) 100 unit/mL (70-30) injection ALPRAZolam Yes .5mg QD Take 1 Metho di (XANAX) 0.5 -[address] MG tablet 11:07: (0.5 mg Hospi ta 59 total) by l mouth nightly as needed for sleep or anxiety. (per Prescripti on Drug Monitoring Program, last filled 10/26/22, quantity: 120, day supply: 30) aspirin Yes 81mg QD Take 1 Methodi (ECOTRIN) 6-02 tablet (81 st 81 MG 11:07: mg total) Hospita enteric 59 by mouth l coated daily. tablet calcium Yes 1{tbl} Q.5D Take 1 Method i carbonate-v 6-[address] itamin D3 11:07: mouth 2 Hospi ta 600 59 (two) l mg(1,500mg) times a -200 unit day with per tablet meals. omega 3-0 Yes 2000mg Q.5D Take 2,000 Meth susan 3-dha-epa-f 6-[address] juancarlos oil 11:07: mouth 2 Hospita 1,000 mg 59 (two) l (120 mg-180 times a mg) capsule day. finasteride 3-0 Yes 5mg QD Take 1 Meth susan (PROSCAR) 5 6-02 tablet (5 st mg tablet 11:07: mg total) Hos sayda 59 by mouth l nightly. cranberry 2022-0 Yes 1{capsu QD Take 1 Met hodi conc-ascorb 6-02 le} capsule by st ic acid 11:07: mouth Hospita 4,200-20 mg 59 daily. l capsule montelukast 2022-0 Yes 10mg QD Take 1 Meth susan (SINGULAIR) 6-02 tablet (10 st 10 mg 11:07: mg total) Hospita tablet 59 by mouth l nightly as needed (allergies ). insulin NPH 2022-0 Yes Q.5D Inject Meth susan hum/reg 6-[address] insulin hm 11:07: skin 2 Hospi ta (NOVOLIN 59 (two) l 70/30 U-100 times a INSULIN day. 8 SUBQ) units in the am, 18 units at night tamsulosin 2022-0 Yes .4mg Q.5D Take 1 Metho di (FLOMAX) 5-[address] 0.4 mg 10:05: (0.4 mg Hospita capsule,ext 18 total) by l ended mouth 2 release (two) 24hr times a day. thiamine 2023-0 Yes 100mg QD Take 1 Method i 100 MG 5-[address] tablet 10:05: (100 mg Hospita 18 total) by l mouth daily. tacrolimus 2023-0 Yes .5mg Q.5D Take 1 Metho di (PROGRAF) 5-[address] 0.5 MG 10:05: (0.5 mg Hospita capsule 18 total) by l mouth 2 (two) times a day. galantamine 3-0 Yes [id number] 8mg QD Take 1 Methodi ER 5-24 capsule (8 st (RAZADYNE 00:00: mg total) Hos sayda ER) 8 MG 24 00 by mouth l hr capsule daily with breakfast. torsemide 2023-0 2024- Yes 40mg QD Take 2 Metho di (DEMADEX) 5-15 05-[address] 20 MG 00:00: 04:59 (40 mg Hospita tablet 00 :00 total) by l mouth daily. ferrous 2022- No TAKE 1 Methodi sulfate 325 5-15 05-[address] (65 FE) MG 00:00: 00:00 MOUTH Hospi ta tablet 00 :00 EVERY DAY l WITH BREAKFAST polyethylen 2022- No 4000mL Take 4,000 Methodi e glycol 5-15 05-[address] (GoLYTELY) 00:00: 04:59 mouth once Hospita 236-22.74-6 00 :00 for 1 l .74 -5.86 dose. gram solution metOLazone 2022- No 2.5mg Take 1 Met hodi (ZAROXOLYN) -12 05-[address] 2.5 MG 17:33: 00:00 (2.5 mg Hospita tablet 40 :00 total) by l mouth as needed. Weight gain of 3 lbs potassium 2022- No 10meq QD Take 1 Meth susan chloride -12 05-12 tablet (10 st (K-DUR) 10 17:33: 00:00 mEq total) Hospita MEQ CR 40 :00 by mouth l tablet daily. sucralfate 2022- Yes 1g Q.25D Take 1 Met hodi (CARAFATE) 12 06-12 tablet (1 st 1 gram 00:00: 04:59 g total) Hospit a tablet 00 :00 by mouth 4 l (four) times a day before meals and nightly for 30 days. HYDROcodone 2022- [place] [id number] 1{tbl} Q6H Take 1 Methodi -acetaminop 5-09 05-[address] hen (NORCO) 18:21: 00:00 mouth Hosp ramiro 5-325 mg 15 :00 every 6 l per tablet (six) hours as needed for moderate pain .acute pain. (per Prescripti on Drug Monitoring Program, last filled 08/06/23, quantity: 150, day supply: 25) amLODIPine 2022- Yes 10mg QD Take 1 Meth susan (NORVASC) 01-28- tablet (10 st 10 mg 00:00: 04:59 mg total) Hospit a tablet 00 :00 by mouth l daily for 90 days. cefdinir 2022- No 300mg Q.5D Take 1 Metho di (OMNICEF) 01-27-[address] 300 MG 00:00: 00:00 (300 mg Hospita capsule 00 :00 total) by l mouth 2 (two) times a day for 7 days. insulin Yes [id number] INJECT M ethodi syringe-nee 11-[address] dle U-100 00:00: DAY Hospita (BD Insulin 00 l Syringe Ultra-Fine) 0.5 mL 31 gauge x 5/16" syringe tacrolimus 2022- No [id number] PLEASE SEE Methodi (PROGRAF) 11-[address] 0.5 MG 00:00: 00:00 FOR Hospita capsule 00 :00 DETAILED l DIRECTIONS 1. 0.5 mg BID on Wed, , Wed, & Wednesday 2. 0.5 mg AM and then 1 mg PM every M,T W. (72 capsule per month / 216 capsules 90 day supply ) OneTouch Yes [id number] DX E11.65 Methodi Delica Plus 2-[address] Lancet 33 00:00: TIMES Hospita gauge misc 00 DAILY l insulin 2022- No [id number] INJECT Methodi syringe-nee 11-[address] dle U-100 00:00: 00:00 DAY Hospita (BD Insulin 00 :00 l Syringe Ultra-Fine) 0.5 mL 31 gauge x 5/16" syringe OneTouch Yes [id number] DX E11.65 Methodi Delica Plus 2-[address] Lancet 33 00:00: TIMES Hospita gauge misc 00 DAILY l insulin Yes 30U QD Inject Methodi 70/30 NPH 2-15 30-35 st and regular 00:00: Units Hospi ta human 00 under the l (NovoLIN skin 70/30 U-100 daily. Insulin) Inject 8 100 unit/mL units with (70-30) breakfast, injection 0-3 units at lunch and 18 units at dinner meals subuctaneo usly gabapentin 2023- No 400mg Q.[id number] Take 1 Methodi (NEURONTIN) 11-[id number] 400 mg 00:00: 05:59 3D (400 mg Hospita capsule 00 :00 total) by l mouth 3 (three) times a day. gabapentin 2023- No 400mg Q.[id number] Take 1 Methodi (NEURONTIN) 11-[id number] 400 mg 00:00: 05:59 3D (400 mg Hospita capsule 00 :00 total) by l mouth 3 (three) times a day. insulin 2022- No 30U QD Inject Methodi 70/30 NPH 11-11 30-35 st and regular 00:00: 00:00 Units Hosp ramiro human 00 :00 under the l (NovoLIN skin 70/30 U-100 daily. Insulin) Inject 8 100 unit/mL units with (70-30) breakfast, injection 0-3 units at lunch and 18 units at dinner meals subuctaneo usly OneTouch 2022- No [id number] DX E11.65 Method[facility] Delica Plus 11-11 TEST THREE s t [facility] 33 00:00: 00:00 TIMES Hospit a gauge misc 00 :00 DAILY l insulin Yes [id number] INJECT M ethodi syringe-nee 2-[address] dle U-100 00:00: DAY Hospita (BD Insulin 00 l Syringe Ultra-Fine) 0.5 mL 31 gauge x 5/16" syringe magnesium Yes TAKE 1 Method i oxide 2-[address] (MAG-OX) 00:00: MOUTH Hospita 400 mg 00 TWICE A l (241.3 mg DAY magnesium) tablet isosorbide Yes TAKE 1 Metho di mononitrate 2-[address] (IMDUR) 30 00:00: MOUTH Hospit a MG 24 hr 00 EVERY DAY l tablet pravastatin Yes TAKE 1 Meth susan (PRAVACHOL) 2-[address] 80 MG 00:00: MOUTH [facility]ospita tablet 00 EVERY DAY l magnesium 2023-0 Yes TAKE 1 Method i oxide 2-[address] (MAG-OX) 00:00: MOUTH [facility]ospita 400 mg 00 TWICE A l (241.3 mg DAY magnesium) tablet pravastatin 2022-0 Yes TAKE 1 Meth susan (PRAVACHOL) 2-[address] 80 MG 00:00: MOUTH [facility]ospita tablet 00 EVERY DAY l isosorbide 2022-0 2022- No TAKE 1 Meth susan mononitrate 2-14 05-[address] (IMDUR) 30 00:00: 00:00 MOUTH Hospi ta MG 24 hr 00 :00 EVERY DAY l tablet insulin 2022-0 2022- No [id number] INJECT Methodi syringe-nee 2-14 11-[address] dle U-100 00:00: 00:00 DAY Hospita (BD Insulin 00 :00 l Syringe Ultra-Fine) 0.5 mL 31 gauge x 5/16" syringe ALPRAZolam 2022-0 Yes .5mg QD Take 1 Metho di (XANAX) 0.5 2-[address] MG tablet 11:47: (0.5 mg Hospi ta 20 total) by l mouth nightly as needed for sleep or anxiety. aspirin 2022-0 Yes 81mg QD Take 1 [facility] (ECOTRIN) 2-10 tablet (81 st 81 MG 11:47: mg total) Hospita enteric 20 by mouth l coated daily. tablet calcium 2022-0 Yes 1{tbl} Q.5D Take 1 Method i carbonate-v 2-[address] itamin D3 11:47: mouth 2 Hospi ta 600 20 (two) l mg(1,500mg) times a -200 unit day with per tablet meals. tamsulosin 2022-0 Yes .4mg QD Take 1 Metho di (FLOMAX) 2-[address] 0.4 mg 11:47: (0.4 mg Hospita capsule,ext 20 total) by l ended mouth release nightly. 24hr omega 3-0 Yes 2000mg Q.5D Take 2,000 Meth susan 3-dha-epa-f 2-[address] juancarlos oil 11:47: mouth 2 Hospita 1,000 mg 20 (two) l (120 mg-180 times a mg) capsule day. thiamine 2022-0 Yes 100mg QD Take 1 Method i 100 MG 2-[address] tablet 11:47: (100 mg Hospita 20 total) by l mouth daily. finasteride 2023-0 Yes 5mg QD Take 1 Meth susan (PROSCAR) 5 2-10 tablet (5 st mg tablet 11:47: mg total) Hos sayda 20 by mouth l nightly. HYDROcodone 2023-0 Yes [id number] 1{tbl} Q6H Take 1 M ethodi -acetaminop 2-[address] hen (NORCO) 11:47: mouth Hospi ta 5-325 mg 20 every 6 l per tablet (six) hours as needed for moderate pain .acute pain. metOLazone 3-0 Yes 2.5mg Take 1 Meth susan (ZAROXOLYN) 2-[address] 2.5 MG 11:47: (2.5 mg Hospita tablet 20 total) by l mouth as needed. Weight gain of 3 lbs cranberry 3-0 Yes QD Take by Metho di conc-ascorb 2-[address] ic acid 11:47: daily. Hospita 4,200-20 mg 20 l capsule pantoprazol 2023-0 Yes 40mg QD Take 1 Meth susan e 2-09 tablet (40 st (PROTONIX) 00:00: mg total) Ho spita 40 MG EC 00 by mouth l tablet daily. pantoprazol 2023-0 Yes 40mg QD Take 1 Meth susan e 2-09 tablet (40 st (PROTONIX) 00:00: mg total) Ho spita 40 MG EC 00 by mouth l tablet daily. ondansetron 2023-0 2023- No 8mg Q8H Take 1 Met hodi ODT 2- 03-12 tablet (8 st (ZOFRAN-ODT 00:00: 05:59 mg total) Hospita ) 8 MG 00 :00 by mouth l disintegrat every 8 ing tablet (eight) hours as needed for nausea or vomiting for up to 30 days. ondansetron 2023-0 2023- No 8mg Q8H Take 1 Met hodi ODT 2- 03-12 tablet (8 st (ZOFRAN-ODT 00:00: 05:59 mg total) Hospita ) 8 MG 00 :00 by mouth l disintegrat every 8 ing tablet (eight) hours as needed for nausea or vomiting for up to 30 days. folic acid Yes TAKE 1 Metho di (FOLVITE) 1 1-[address] MG tablet 00:00: MOUTH Hospita 00 EVERY DAY l folic acid Yes TAKE 1 Metho di (FOLVITE) 1 1-[address] MG tablet 00:00: MOUTH Hospita 00 EVERY DAY l folic acid Yes TAKE 1 Metho di (FOLVITE) 1 -[address] MG tablet 00:00: MOUTH Hospita 00 EVERY DAY l torsemide 2023- No 40mg QD TAKE 2 Metho di (DEMADEX) 10-21-[address] 20 MG 00:00: 05:59 (40 MG Hospita tablet 00 :00 TOTAL) BY l MOUTH DAILY. torsemide 2023- No 40mg QD TAKE 2 Metho di (DEMADEX) 10-21-[address] 20 MG 00:00: 05:59 (40 MG Hospita tablet 00 :00 TOTAL) BY l MOUTH DAILY. torsemide 2022- No 40mg QD TAKE 2 Metho di (DEMADEX) 10-21 05-[address] 20 MG 00:00: 00:00 (40 MG Hospita tablet 00 :00 TOTAL) BY l MOUTH DAILY. tacrolimus 2023- No [id number] Take 0.5 Methodi (PROGRAF) 1 01-[address] 0.5 MG 00:00: 05:59 day on Hospita capsule 00 :00 Jo Blanca l Sat, [place] and take 0.5 mg AM and 1 mg PM on M,W, F. Z94.1 heart transplant ed. tacrolimus 2023- No [id number] Take 0.5 [facility] (PROGRAF) 1 01-[address] 0.5 MG 00:00: 05:59 day on Hospita capsule 00 :00 Jo Blanca l Sat, Sun and take 0.5 mg AM and 1 mg PM on M,W, F. Z94.1 heart transplant ed. tacrolimus 2022- No [id number] Take 0.5 [facility] (PROGRAF) 1 02-[address] 0.5 MG 00:00: 00:00 day on Hospita capsule 00 :00 [place] l Sat, Sun and take 0.5 mg AM and 1 mg PM on M,W, F. Z94.1 heart transplant ed. ALPRAZolam 2022-0 Yes .5mg QD Take 1 Metho di (XANAX) 0.5 1-[address] MG tablet 10:00: (0.5 mg Hospi ta 05 total) by l mouth nightly as needed for sleep or anxiety. aspirin 3-0 Yes 81mg QD Take 1 [facility] (ECOTRIN) 1-18 tablet (81 st 81 MG 10:00: mg total) Hospita enteric 05 by mouth l coated daily. tablet calcium 3-0 Yes 1{tbl} Q.5D Take 1 Method i carbonate-v 1-[address] itamin D3 10:00: mouth 2 Hospi ta 600 05 (two) l mg(1,500mg) times a -200 unit day with per tablet meals. tamsulosin 2022-0 Yes .4mg QD Take 1 Metho di (FLOMAX) 1-[address] 0.4 mg 10:00: (0.4 mg Hospita capsule,ext 05 total) by l ended mouth release nightly. 24hr thiamine 2023-0 Yes 100mg QD Take 1 Method i 100 MG 1-[address] tablet 10:00: (100 mg Hospita 05 total) by l mouth daily. finasteride 3-0 Yes 5mg QD Take 1 Meth susan (PROSCAR) 5 1-18 tablet (5 st mg tablet 10:00: mg total) Hos sayda 05 by mouth l nightly. HYDROcodone 3-0 Yes [id number] 1{tbl} Q6H Take 1 M ethodi -acetaminop 1-[address] hen (NORCO) 10:00: mouth Hospi ta 5-325 mg 05 every 6 l per tablet (six) hours as needed for moderate pain .acute pain. metOLazone 3-0 Yes 2.5mg Take 1 Meth susan (ZAROXOLYN) 1-[address] 2.5 MG 10:00: (2.5 mg Hospita tablet 05 total) by l mouth as needed. Weight gain of 3 lbs omega 2023-0 Yes 2000mg Q.5D Take 2,000 Meth susan 3-dha-epa-f 1-[address] juancarlos oil 09:49: mouth 2 Hospita 1,000 mg 46 (two) l (120 mg-180 times a mg) capsule day. amLODIPine 2023- No 5mg QD Take 1 Meth susan (NORVASC) 5 10-05 tablet (5 st mg tablet 00:00: 05:59 mg total) Ho spita 00 :00 by mouth l daily. amLODIPine 2023- No 5mg QD Take 1 Meth susan (NORVASC) 5 10-05 tablet (5 st mg tablet 00:00: 05:59 mg total) Ho spita 00 :00 by mouth l daily. amLODIPine 2022- No 5mg QD Take 1 Meth susan (NORVASC) 5 10-0503 tablet (5 st mg tablet 00:00: 00:00 mg total) Ho spita 00 :00 by mouth l daily. labetaloL 2023- No 200mg Q.5D Take 2 Meth susan (NORMODYNE) 10-02-[address] 100 MG 00:00: 05:59 (200 mg Hospita tablet 00 :00 total) by l mouth 2 (two) times a day. labetaloL 2022- No 200mg Q.5D Take 2 Meth susan (NORMODYNE) 10-02-[address] 100 MG 00:00: 00:00 (200 mg Hospita tablet 00 :00 total) by l mouth 2 (two) times a day. labetaloL 2022- No 200mg Q.5D Take 2 Meth susan (NORMODYNE) 10-02-[address] 100 MG 00:00: 00:00 (200 mg Hospita tablet 00 :00 total) by l mouth 2 (two) times a day. tacrolimus 2022- No [id number] Take 0.5 [facility] (PROGRAF) 10-02-[address] 0.5 MG 00:00: 00:00 day on Hospita capsule 00 :00 Jo Blanca l Sat, Sun and take 0.5 mg AM and 1 mg PM on M,W, F. Z94.1 heart transplant ed. tacrolimus 2022- No [id number] Take 0.5 [facility] (PROGRAF) 10-02 01-[address] 0.5 MG 00:00: 00:00 day on Hospita capsule 00 :00 Tue, Thur, l Sat, Sun and take 0.5 mg AM and 1 mg PM on M,W, F. Z94.1 heart transplant ed. tacrolimus 2022- No [id number] Take 0.5 [facility] (PROGRAF) 10-02-[address] 0.5 MG 00:00: 00:00 day on Hospita capsule 00 :00 Tue, Thur, l Sat, Sun and take 0.5 mg AM and 1 mg PM on ,W, F. Z94.1 heart transplant ed. calcium 2021-09- No Take by Method i carbonate 2-09-[address] (CALCIUM 01:13: 00:00 Hospita 600 ORAL) 12 :00 l calcium 2021-09- No Take by Method i carbonate 11-[address] (CALCIUM 01:13: 00:00 Hospita 600 ORAL) 12 :00 l calcium 2021-09- No Take by Method i carbonate 11-22- mouth. st (CALCIUM 01:13: 00:00 Hospita 600 [...] Hosp ramiro 38 l HYDROcodone 2021-09 Yes [id number] 1{tbl} Q6H Take 1 M ethodi -acetaminop [...] MORNING AND 20 UNITS EVERY EVENING NovoLIN 2021-09- No INJECT Methodi 70/30 U-100 0-03 02-[address] Insulin 100 00:00: 00:00 SKIN 12 Ho spita unit/mL 00 :00 UNITS l (70-30) EVERY injection MORNING AND 20 UNITS EVERY EVENING NovoLIN 2021-09- No INJECT Methodi 70/30 U-100 0-03 02-[address] Insulin 100 00:00: 00:00 SKIN 12 Ho spita unit/mL 00 :00 UNITS l (70-30) EVERY injection MORNING AND 20 UNITS EVERY EVENING potassium Yes TAKE 2 Method i chloride 9-[address] ([place]) 10 00:00: MOUTH Hospit a MEQ CR 00 EVERY DAY l tablet potassium Yes TAKE 2 Method i chloride 9-[address] ([place]) 10 00:00: MOUTH Hospit a MEQ CR 00 EVERY DAY l tablet potassium 0 Yes TAKE 2 Method i chloride 9-[address] ([place]) 10 00:00: MOUTH Hospit a MEQ CR 00 EVERY DAY l tablet potassium 2021-0 2022- No TAKE 2 Metho di chloride 9-13 05-[address] ([place]) 10 00:00: 00:00 MOUTH Hospi ta MEQ CR 00 :00 EVERY DAY l tablet potassium 2021-0 2021- No TAKE 2 Metho di chloride 9-08 09-[address] ([place]) 10 00:00: 00:00 MOUTH Hospi ta MEQ CR 00 :00 EVERY DAY l tablet potassium 2021-0 2021- No TAKE 2 Metho di chloride 9-08 09-[address] ([place]) 10 00:00: 00:00 MOUTH Hospi ta MEQ CR 00 :00 EVERY DAY l tablet potassium 2021-0 2021- No TAKE 2 Metho di chloride 9-08 09-[address] ([place]) 10 00:00: 00:00 MOUTH Hospi ta MEQ CR 00 :00 EVERY DAY l tablet potassium 2021- No TAKE 2 Metho di chloride 06-04-[address] (K-DUR) 10 00:00: 00:00 MOUTH Hospi ta MEQ CR 00 :00 EVERY DAY l tablet gabapentin Yes 400mg [id number] Take 1 [facility] (NEURONTIN) 04-[id number] 400 mg 00:00: 3D (400 mg Hospita capsule 00 total) by l mouth 3 (three) times a day. gabapentin Yes 400mg Q.[id number] Take 400 [facility] (NEURONTIN) 04-12 [id number] mg by s t 400 mg 00:00: 3D mouth 3 Hospita capsule 00 (three) l times a day. gabapentin 2022- No 400mg Q.[id number] Take 1 [facility] (NEURONTIN) 04-[id number] 400 mg 00:00: 00:00 3D (400 mg Hospita capsule 00 :00 total) by l mouth 3 (three) times a day. gabapentin 2022- No 400mg Q.[id number] Take 1 [facility] (NEURONTIN) 04-[id number] 400 mg 00:00: 00:00 3D (400 mg Hospita capsule 00 :00 total) by l mouth 3 (three) times a day. insulin Yes [id number] INJECT M ethodi syringe-nee 04-[address] dle U-100 00:00: DAY Hospita (BD Insulin 00 l Syringe Ultra-Fine) 0.5 mL 31 gauge x 5/16" syringe insulin Yes [id number] INJECT M ethodi syringe-nee 04-[address] dle U-100 00:00: DAY Hospita (BD Insulin 00 l Syringe Ultra-Fine) 0.5 mL 31 gauge x 5/16" syringe insulin 2022- No [id number] INJECT [facility] syringe-nee 04-[address] dle U-100 00:00: 00:00 DAY Hospita (BD Insulin 00 :00 l Syringe Ultra-Fine) 0.5 mL 31 gauge x 5/16" syringe insulin 2022- No [id number] INJECT [facility] syringe-nee 04-03 02-[address] dle U-100 00:00: 00:00 DAY Hospita (BD Insulin 00 :00 l Syringe Ultra-Fine) 0.5 mL 31 gauge x 5/16" syringe insulin 2021- No [id number] INJECT Methodi syringe-nee 03-[address] dle U-100 00:00: 00:00 DAY Hospita (BD Insulin 00 :00 l Syringe Ultra-Fine) 0.5 mL 31 gauge x 5/16" syringe insulin 2021- No [id number] INJECT Methodi syringe-nee 03-[address] dle U-100 00:00: 00:00 DAY Hospita (BD Insulin 00 :00 l Syringe Ultra-Fine) 0.5 mL 31 gauge x 5/16" syringe insulin 2021- No [id number] INJECT [facility] syringe-nee 03-[address] dle U-100 00:00: 00:00 DAY Hospita (BD Insulin 00 :00 l Syringe Ultra-Fine) 0.5 mL 31 gauge x 5/16" syringe insulin 2021- No [id number] INJECT Method[facility] syringe-nee 03-[address] dle U-100 00:00: 00:00 DAY Hospita (BD Insulin 00 :00 l Syringe Ultra-Fine) 0.5 mL 31 gauge x 5/16" syringe ALPRAZolam Yes 4 (four) Uni vers (XANAX) 0.5 6-21 times a ity o f mg tablet 11:03: day. [place] MD Margot huggins [facility] Center calcium Yes daily. Univers phos-D3-her 6-21 ity of bal no.293 11:03: [place] (Alive Calcium-Vit Anderso rosas D3) n 260 mg Cancer calcium- 25 Center mcg-50 mg chew cranberry Yes daily. Univer s 400 mg cap 6-21 ity of 11:03: [place] MD Margot huggins [facility] Center ALPRAZolam Yes 4 (four) Uni vers (XANAX) 0.5 6-21 times a ity o f mg tablet 11:03: day. MD Margot huggins [facility] [place] calcium 2021-0 Yes daily. Univers phos-D3-her 6-21 ity of bal no.293 11:03: (Alive Calcium-Vit Anderso rosas D3) n 260 mg Cancer calcium- 25 Center mcg-50 mg chew cranberry 2021-0 Yes daily. Univer s 400 mg cap 6-21 ity of 11:03: MD [facility] ALPRAZolam 2021-0 Yes 4 (four) Uni vers (XANAX) 0.5 6-21 times a ity o f mg tablet 11:03: day. MD Margot huggins [facility] [place] calcium 2021-0 Yes daily. Univers phos-D3-her 6-21 ity of bal no.293 11:03: (Alive Calcium-Vit Anderso rosas D3) n 260 mg Cancer calcium- 25 Center mcg-50 mg chew cranberry 2021-0 Yes daily. Univer s 400 mg cap 6-21 ity of 11:03: MD [facility] ALPRAZolam 2021-0 Yes 4 (four) Uni vers (XANAX) 0.5 6-21 times a ity o f mg tablet 11:03: day. MD [facility]ot [facility] calcium 2021-0 Yes daily. Univers phos-D3-her 6-21 ity of bal no.293 11:03: (Alive Calcium-Vit Anderso rosas D3) n 260 mg Cancer calcium- 25 Center mcg-50 mg chew cranberry 2021-0 Yes daily. Univer s 400 mg cap 6-21 ity of 11:03: MD [facility]ot [facility] ALPRAZolam 0 Yes 4 (four) Uni vers (XANAX) 0.5 6-21 times a ity o f mg tablet 11:03: day. MD [facility]ot [facility] calcium 2021-0 Yes daily. Univers phos-D3-her 6-21 ity of bal no.293 11:03: (Alive Calcium-Vit Anderso rosas D3) n 260 mg Cancer calcium- 25 Center mcg-50 mg chew cranberry 2021-0 Yes daily. Univer s 400 mg cap 6-21 ity of 11:03: [place] MD Margot huggins [facility] amLODIPine 2-0 Yes 5mg Take 5 mg Un christian (NORVASC) 5 6-21 by mouth ity of mg tablet 11:03: daily. [place] MD Margot huggins [facility] omega 2021-0 Yes 2000mg Take 2,000 Univ ers 3-dha-epa-f 6-21 mg by ity of juancarlos oil 11:03: mouth [place] 1,000 mg 00 daily. (120 mg-180 Anderso mg) [facility] sertraline 2021-0 Yes daily. Unive rs (ZOLOFT) 50 6-21 ity of mg tablet 11:03: [place] MD Margot huggins [facility] amLODIPine 2021-0 Yes 5mg Take 5 mg Un christian (NORVASC) 5 6-21 by mouth ity of mg tablet 11:03: daily. MD Margot huggins [facility] omega 2021-0 Yes 2000mg Take 2,000 Univ ers 3-dha-epa-f 6-21 mg by ity of juancarlos oil 11:03: mouth [place] 1,000 mg 00 daily. (120 mg-180 Anderso mg) [facility] sertraline 2021-0 Yes daily. Unive rs (ZOLOFT) 50 6-21 ity of mg tablet 11:03: [place] 00 MD Margot huggins [facility] amLODIPine 2021-0 Yes 5mg Take 5 mg Un christian (NORVASC) 5 6-21 by mouth ity of mg tablet 11:03: daily. MD Margot huggins [facility] omega 2-0 Yes 2000mg Take 2,000 Univ ers 3-dha-epa-f 6-21 mg by ity of juancarlos oil 11:03: mouth [place] 1,000 mg 00 daily. (120 mg-180 Anderso mg) [facility] sertraline 2022-0 Yes daily. Unive rs (ZOLOFT) 50 6-21 ity of mg tablet 11:03: [place] 00 MD Margot huggins [facility] amLODIPine 2-0 Yes 5mg Take 5 mg Un christian (NORVASC) 5 6-21 by mouth ity of mg tablet 11:03: daily. [place] 00 [facility] omega 2022-0 Yes 2000mg Take 2,000 Univ ers 3-dha-epa-f 6-21 mg by ity of juancarlos oil 11:03: mouth [place] 1,000 mg 00 daily. (120 mg-180 Anderso mg) [facility] sertraline 2022-0 Yes daily. Unive rs (ZOLOFT) 50 6-21 ity of mg tablet 11:03: [place] 00 [facility] amLODIPine 2021-0 Yes 5mg Take 5 mg Un christian (NORVASC) 5 6-21 by mouth ity of mg tablet 11:03: daily. 00 [facility] omega 2021-0 Yes 2000mg Take 2,000 Univ ers 3-dha-epa-f 6-21 mg by ity of juancarlos oil 11:03: mouth [place] 1,000 mg 00 daily. (120 mg-180 Anderso mg) [facility] sertraline 2021-0 Yes daily. Unive rs (ZOLOFT) 50 6-21 ity of mg tablet 11:03: [place] 00 [facility] cyclobenzap 2021-0 Yes daily as Un christian rine 6-13 needed. ity of (FLEXERIL) 00:00: [place] 10 mg [facility] Yes daily as Un christian rine 6-13 needed. ity of (FLEXERIL) 00:00: [place] 10 [facility] Yes daily as Un christian rine 6-13 needed. ity of (FLEXERIL) 00:00: [place] 10 mg [facility]-0 Yes daily as Un christian rine 6-13 needed. ity of (FLEXERIL) 00:00: [place] 10 mg 00 MD tablet Anderso [facility] cyclobenzap 2022-0 Yes daily as Un christian rine 6-13 needed. ity of (FLEXERIL) 00:00: [place] 10 mg 00 MD tablet [facility] tacrolimus 2021-0 Yes [id number] TAKE 1 [facility] (PROGRAF) 03-[address] 0.5 MG 00:00: MOUTH 2 Hospita capsule 00 TIMES A l DAY. tacrolimus 2021-0 2022- No [id number] TAKE 1 [facility] (PROGRAF) 03-[address] 0.5 MG 00:00: 00:00 MOUTH 2 Hospita capsule 00 :00 TIMES A l DAY. tacrolimus 2021-0 3- No [id number] TAKE 1 [facility] (PROGRAF) 03-[address] 0.5 MG 00:00: 00:00 MOUTH 2 Hospita capsule 00 :00 TIMES A l DAY. tacrolimus 2021-0 2022- No [id number] TAKE 1 [facility] (PROGRAF) 03-[address] 0.5 MG 00:00: 00:00 MOUTH 2 Hospita capsule 00 :00 TIMES A l DAY. OneTouch 2021-0 Yes [id number] USE Me thodi Verio test 02-[address] strips 00:00: TIMES A Hospita strip test 00 DAY l strips OneTouch 2021-0 Yes [id number] USE Me thodi Verio test 02-[address] strips 00:00: TIMES A Hospita strip test 00 DAY l strips OneTouch 2-0 3- No [id number] USE M ethodi Verio test 02-[address] strips 00:00: 00:00 TIMES A Hospita strip test 00 :00 DAY l strips OneTouch 2022-0 2023- No [id number] USE M ethodi Verio test 02-[address] strips 00:00: 00:00 TIMES A Hospita strip test 00 :00 DAY l strips finasteride 2021-0 Yes daily. Univ ers (PROSCAR) 5 5-31 ity of mg tablet 00:00: 00 [facility] finasteride 2021-0 Yes daily. Univ ers (PROSCAR) 5 5-31 ity of mg tablet 00:00: 00 [facility] finasteride 2021-0 Yes daily. Univ ers (PROSCAR) 5 5-31 ity of mg tablet 00:00: 00 [facility] finasteride 2021-0 Yes daily. Univ ers (PROSCAR) 5 5-31 ity of mg tablet 00:00: 00 [facility] finasteride 2021-0 Yes daily. Univ ers (PROSCAR) 5 5-31 ity of mg tablet 00:00: [facility] sertraline 2021-0 Yes [id number] 50mg QD Take 1 [facility] (ZOLOFT) 50 5-24 tablet (50 st MG tablet 00:00: mg total) Hos sayda 00 by mouth l daily. sertraline 0 Yes [id number] 50mg QD Take 1 [facility] (ZOLOFT) 50 5-24 tablet (50 st MG tablet 00:00: mg total) Hos sayda 00 by mouth l daily. sertraline 0 Yes [id number] 50mg QD Take 1 [facility] (ZOLOFT) 50 5-24 tablet (50 st MG tablet 00:00: mg total) Hos sayda 00 by mouth l daily. sertraline 2021-0 Yes daily. Unive rs (ZOLOFT) 50 5-24 ity of mg tablet 00:00: 00 [facility] sertraline 2021-0 Yes daily. Unive rs (ZOLOFT) 50 5-24 ity of mg tablet 00:00: [facility] sertraline 2021-0 Yes daily. Unive rs (ZOLOFT) 50 5-24 ity of mg tablet 00:00: [facility] sertraline 2021-0 Yes daily. Unive rs (ZOLOFT) 50 5-24 ity of mg tablet 00:00: 00 [facility] sertraline 2021-0 Yes daily. Unive rs (ZOLOFT) 50 5-24 ity of mg tablet 00:00: [facility] sertraline 2021-0 Yes [id number] 50mg QD Take 1 [facility] (ZOLOFT) 50 5-24 tablet (50 st MG tablet 00:00: mg total) Hos sayda 00 by mouth l daily. sertraline 2021-0 2- No 50mg QD Take 1 Meth susan (ZOLOFT) 50 5-24 05-24 tablet (50 s t MG tablet 00:00: 00:00 mg total) Ho spita 00 :00 by mouth l daily. sertraline 2-0 2022- No 50mg QD Take 1 Meth susan (ZOLOFT) 50 5-24 05-24 tablet (50 s t MG tablet 00:00: 00:00 mg total) Ho spita 00 :00 by mouth l daily. sertraline 2-0 2022- No 50mg QD Take 1 Meth susan (ZOLOFT) 50 5-24 05-24 tablet (50 s t MG tablet 00:00: 00:00 mg total) Ho spita 00 :00 by mouth l daily. isosorbide 2022-0 Yes TAKE 1 Metho di mononitrate 5-[address] (IMDUR) 30 00:00: MOUTH Hospit a MG 24 hr 00 EVERY DAY l tablet isosorbide 2022-0 Yes TAKE 1 Metho di mononitrate 5-[address] (IMDUR) 30 00:00: MOUTH Hospit a MG 24 hr 00 EVERY DAY l tablet isosorbide 2022-0 2023- No TAKE 1 Meth susan mononitrate 5-20 02-[address] (IMDUR) 30 00:00: 00:00 MOUTH Hospi ta MG 24 hr 00 :00 EVERY DAY l tablet isosorbide 2022-0 2023- No TAKE 1 Meth susan mononitrate 5-20 02-[address] (IMDUR) 30 00:00: 00:00 MOUTH Hospi ta MG 24 hr 00 :00 EVERY DAY l tablet blood sugar 2022-0 Yes [id number] USE Methodi diagnostic 5-[address] strips 00:00: TIMES A Hospita (OneTouch 00 DAYDX l Verio test CODE: strips) E08.22 strip test strips blood sugar 2022-0 Yes [id number] USE Methodi diagnostic 5-[address] strips 00:00: TIMES A Hospita (OneTouch DAYDX l Verio test CODE: strips) E08.22 strip test strips blood sugar 2022-0 Yes [id number] USE Methodi diagnostic 5-[address] strips 00:00: TIMES A Hospita (OneTouch 00 DAYDX l Verio test CODE: strips) E08.22 strip test strips blood sugar Yes [id number] USE [facility]i diagnostic 5-[address] strips 00:00: TIMES A Hospita (OneTouch 00 DAYDX l Verio test CODE: strips) E08.22 strip test strips hydrocodone hydrocodone No hydrocodon [place] 10 10 5-17 e 10 [facility] mg-acetamin [...] TO SEVERE PAIN prednisone prednisone No prednisone [place] 5 mg tablet 5 mg tablet 5-17 [...] affected MD area(s) Anderso twice n daily. 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 [facility] ferrous 2021- No 325mg QD Take 325 [...] with l breakfast. ferrous 2022- No 325mg QD Take 1 Method i sulfate 325 5-12 05-[address] (65 FE) MG 00:00: 00:00 (325 mg Hos [facility] tablet 00 :00 [...] by l mouth daily with breakfast. ferrous 2021-2022- No 325mg QD Take 1 Method i sulfate 325 5-12 05-[address] (65 FE) MG 00:00: 04:59 (325 mg Hos [facility] tablet 00 :00 total) by l mouth daily with breakfast. ferrous 2022- No 325mg Take 325 Univ ers sulfate 325 5-12 05-13 mg by ity of mg (65 mg 00:00: 04:59 mouth [place] elemental 00 :00 daily. iron per Anderso tablet) n tablet [facility] [facility] Center ferrous 2021-2022- No 325mg Take 325 Univ ers sulfate 325 5-12 05-13 mg by ity of mg (65 mg 00:00: 04:59 mouth [place] elemental 00 :00 daily. iron per Anderso tablet) n tablet [facility] Center ferrous 2021-2022- No 325mg Take 325 Univ ers sulfate 325 5-12 05-13 mg by ity of mg (65 mg 00:00: 04:59 mouth [place] elemental 00 :00 daily. iron per Anderso tablet) n tablet [facility] Center ferrous 2021-2022- No 325mg Take 325 Univ ers sulfate 325 5-12 05-13 mg by ity of mg (65 mg 00:00: 04:59 mouth [place] elemental 00 :00 daily. iron per Anderso tablet) n tablet [facility] Center ferrous 2022- No 325mg Take 325 Univ ers sulfate 325 5-12 05-13 mg by ity of mg (65 mg 00:00: 04:59 mouth [place] elemental 00 :00 daily. iron per Anderso tablet) n tablet [facility] tacrolimus Yes .5mg Take 0.5 Uni vers (PROGRAF) 5-10 mg by ity of 0.5 mg 14:51: mouth. [place] capsule 12 [facility] mycophenola Yes Take by Uni vers te 5-10 mouth. ity of (CELLCEPT) 14:51: [place] 500 mg 12 tablet [facility] predniSONE Yes 5mg Take 5 mg Un christian (DELTASONE) 5-10 by mouth. ity of 5 mg tablet 14:51: [place] 12 MD [facility] aspirin 81 Yes 81mg Take 81 mg U nivers mg EC 5-10 by mouth. ity of tablet 14:51: [place] 12 MD [facility] calcium Yes 1{tbl} Take 1 Univer s carbonate-v 5-10 tablet by ity of itamin D3 14:51: mouth. [place] 1,250 mg 12 (500 mg as Anderso elemental)- n 200 units Cancer tablet Center multivitami Yes 1{tbl} Take 1 Un christian n 5-10 tablet by ity of (THERAGRAN) 14:51: [place] 12 [facility] thiamine Yes 100mg Take 100 Univ ers (VITAMIN 5-10 mg by ity of B-1) 100 mg 14:51: [place] 12 [facility] omega-3 Yes 1g Take 1 g Univer s acid ethyl 5-10 by mouth. ity of esters 14:51: [place] (LOVAZA) 1 12 g capsule [facility] magnesium Yes 400mg Take 400 Uni vers oxide 5-10 mg by ity of (MAOX) 400 14:51: mouth. [place] mg tablet 12 [facility] allopurinol Yes 100mg Take 100 U nivers (ZYLOPRIM) 5-10 mg by ity of 100 mg 14:51: mouth. [place] tablet 12 [facility] amLODIPine Yes 5mg Take 5 mg Un christian (NORVASC) 5 5-10 by mouth. ity of mg tablet 14:51: [place] 12 [facility] esomeprazol Yes 40mg Take 40 mg Univers e (NexIUM) 5-10 by mouth. ity of 40 MG 14:51: [place] capsule 12 [facility] gabapentin Yes 300mg Take 300 Un christian (NEURONTIN) 5-10 mg by ity of 300 mg 14:51: mouth. [place] capsule 12 [facility] metOLazone Yes 2.5mg Take 2.5 Un christian (ZAROXOLYN) 5-10 mg by ity of 2.5 mg 14:51: mouth. [place] tablet 12 [facility] isosorbide Yes 30mg Take 30 mg U nivers mononitrate 5-10 by mouth. ity of (IMDUR) 30 14:51: [place] mg 24 hr 12 tablet [facility] tacrolimus 2022-0 Yes .5mg Take 0.5 Uni vers (PROGRAF) 5-10 mg by ity of 0.5 mg 14:51: mouth. [place] capsule 12 [facility] [place] [facility] Take by Uni vers te 5-10 mouth. ity of (CELLCEPT) 14:51: [place] 500 mg 12 MD tablet [facility] predniSONE Yes 5mg Take 5 mg Un christian (DELTASONE) 5-10 by mouth. ity of 5 mg tablet 14:51: [place] [address] [facility] aspirin 81 Yes 81mg Take 81 mg U nivers mg EC 5-10 by mouth. ity of tablet 14:51: [place] [address] [facility] [place] calcium Yes 1{tbl} Take 1 Univer s carbonate-v 5-10 tablet by ity of itamin D3 14:51: mouth. [place] 1,250 mg 12 (500 mg as Anderso elemental)- n 200 units Cancer tablet [place] multivitami Yes 1{tbl} Take 1 Un christian n 5-10 tablet by ity of (THERAGRAN) 14:51: [place] 12 [facility] thiamine Yes 100mg Take 100 Univ ers (VITAMIN 5-10 mg by ity of B-1) 100 mg 14:51: [place] 12 [facility] omega-3 Yes 1g Take 1 g Univer s acid ethyl 5-10 by mouth. ity of esters 14:51: [place] (LOVAZA) 1 12 g capsule [facility] magnesium Yes 400mg Take 400 Uni vers oxide 5-10 mg by ity of (MAOX) 400 14:51: mouth. [place] mg tablet 12 [facility] allopurinol Yes 100mg Take 100 U nivers (ZYLOPRIM) 5-10 mg by ity of 100 mg 14:51: mouth. [place] tablet 12 [facility] amLODIPine Yes 5mg Take 5 mg Un christian (NORVASC) 5 5-10 by mouth. ity of mg tablet 14:51: [place] [address] [facility] esomeprazol Yes 40mg Take 40 mg Univers e (NexIUM) 5-10 by mouth. ity of 40 MG 14:51: [place] capsule 12 [facility] gabapentin Yes 300mg Take 300 Un christian (NEURONTIN) 5-10 mg by ity of 300 mg 14:51: mouth. [place] capsule 12 [facility] metOLazone Yes 2.5mg Take 2.5 Un christian (ZAROXOLYN) 5-10 mg by ity of 2.5 mg 14:51: mouth. [place] tablet 12 [facility] isosorbide Yes 30mg Take 30 mg U nivers mononitrate 5-10 by mouth. ity of (IMDUR) 30 14:51: [place] mg 24 hr 12 tablet [facility] tacrolimus Yes .5mg Take 0.5 Uni vers (PROGRAF) 5-10 mg by ity of 0.5 mg 14:51: mouth. [place] capsule 12 [facility] mycophenola Yes Take by Uni vers te 5-10 mouth. ity of (CELLCEPT) 14:51: [place] 500 mg 12 tablet [facility] predniSONE Yes 5mg Take 5 mg Un christian (DELTASONE) 5-10 by mouth. ity of 5 mg tablet 14:51: [place] [address] [facility] aspirin 81 Yes 81mg Take 81 mg U nivers mg EC 5-10 by mouth. ity of tablet 14:51: [place] 12 [facility] calcium Yes 1{tbl} Take 1 Univer s carbonate-v 5-10 tablet by ity of itamin D3 14:51: mouth. [place] 1,250 mg 12 (500 mg as Anderso elemental)- n 200 units Cancer [facility] multivitami Yes 1{tbl} Take 1 Un christian n 5-10 tablet by ity of (THERAGRAN) 14:51: [place] 12 [facility] thiamine Yes 100mg Take 100 Univ ers (VITAMIN 5-10 mg by ity of B-1) 100 mg 14:51: [place] tablet 12 [facility] omega-3 Yes 1g Take 1 g Univer s acid ethyl 5-10 by mouth. ity of esters 14:51: [place] (LOVAZA) 1 12 MD g capsule [facility] magnesium Yes 400mg Take 400 Uni vers oxide 5-10 mg by ity of (MAOX) 400 14:51: mouth. [place] mg tablet 12 [facility] allopurinol Yes 100mg Take 100 U nivers (ZYLOPRIM) 5-10 mg by ity of 100 mg 14:51: mouth. [place] tablet 12 [facility] amLODIPine Yes 5mg Take 5 mg Un christian (NORVASC) 5 5-10 by mouth. ity of mg tablet 14:51: [place] 12 [facility] esomeprazol Yes 40mg Take 40 mg Univers e (NexIUM) 5-10 by mouth. ity of 40 MG 14:51: [place] capsule 12 [facility] gabapentin Yes 300mg Take 300 Un christian (NEURONTIN) 5-10 mg by ity of 300 mg 14:51: mouth. [place] capsule 12 [facility] metOLazone Yes 2.5mg Take 2.5 Un christian (ZAROXOLYN) 5-10 mg by ity of 2.5 mg 14:51: mouth. [place] tablet 12 [facility] isosorbide Yes 30mg Take 30 mg U nivers mononitrate 5-10 by mouth. ity of (IMDUR) 30 14:51: [place] mg 24 hr 12 tablet [facility] tacrolimus Yes .5mg Take 0.5 Uni vers (PROGRAF) 5-10 mg by ity of 0.5 mg 14:51: mouth. [place] capsule 12 [facility] mycophenola Yes Take by Uni vers te 5-10 mouth. ity of (CELLCEPT) 14:51: [place] 500 mg 12 tablet [facility] predniSONE Yes 5mg Take 5 mg Un christian (DELTASONE) 5-10 by mouth. ity of 5 mg tablet 14:51: [place] [address] [facility] [place] aspirin 81 Yes 81mg Take 81 mg U nivers mg EC 5-10 by mouth. ity of tablet 14:51: [place] [address] [facility] calcium Yes 1{tbl} Take 1 Univer s carbonate-v 5-10 tablet by ity of itamin D3 14:51: mouth. [place] 1,250 mg 12 (500 mg as Anderso elemental) n 200 units Cancer tablet Center multivitami Yes 1{tbl} Take 1 Un christian n 5-10 tablet by ity of (THERAGRAN) 14:51: [place] tablet 12 [facility] thiamine Yes 100mg Take 100 Univ ers (VITAMIN 5-10 mg by ity of B-1) 100 mg 14:51: [place]. [place] tablet 12 [facility] omega-3 Yes 1g Take 1 g Univer s acid ethyl 5-10 by mouth. ity of esters 14:51: [place] (LOVAZA) 1 12 g capsule [facility] magnesium Yes 400mg Take 400 Uni vers oxide 5-10 mg by ity of (MAOX) 400 14:51: mouth. [place] mg tablet 12 [facility] allopurinol Yes 100mg Take 100 U nivers (ZYLOPRIM) 5-10 mg by ity of 100 mg 14:51: mouth. [place] tablet 12 [facility] amLODIPine Yes 5mg Take 5 mg Un christian (NORVASC) 5 5-10 by mouth. ity of mg tablet 14:51: [place] [address] [facility] esomeprazol Yes 40mg Take 40 mg Univers e (NexIUM) 5-10 by mouth. ity of 40 MG 14:51: [place] capsule 12 [facility] gabapentin Yes 300mg Take 300 Un christian (NEURONTIN) 5-10 mg by ity of 300 mg 14:51: mouth. [place] capsule 12 [facility] metOLazone Yes 2.5mg Take 2.5 Un christian (ZAROXOLYN) 5-10 mg by ity of 2.5 mg 14:51: mouth. [place] tablet 12 [facility] isosorbide Yes 30mg Take 30 mg U nivers mononitrate 5-10 by mouth. ity of (IMDUR) 30 14:51: [place] mg 24 hr 12 tablet [facility] tacrolimus Yes .5mg Take 0.5 Uni vers (PROGRAF) 5-10 mg by ity of 0.5 mg 14:51: mouth. [place] capsule 12 [facility] mycophenola Yes Take by Uni vers te 5-10 mouth. ity of (CELLCEPT) 14:51: [place] 500 mg 12 MD tablet [facility] predniSONE Yes 5mg Take 5 mg Un christian (DELTASONE) 5-10 by mouth. ity of 5 mg tablet 14:51: [place] [address] [facility] aspirin 81 Yes 81mg Take 81 mg U nivers mg EC 5-10 by mouth. ity of tablet 14:51: [place] [address] [facility] calcium Yes 1{tbl} Take 1 Univer s carbonate-v 5-10 tablet by ity of itamin D3 14:51: mouth. [place] 1,250 mg 12 (500 mg as Anderso elemental)- n 200 units Cancer tablet [place] multivitami Yes 1{tbl} Take 1 Un christian n 5-10 tablet by ity of (THERAGRAN) 14:51: [place]. [place] tablet 12 [facility] thiamine Yes 100mg Take 100 Univ ers (VITAMIN 5-10 mg by ity of B-1) 100 mg 14:51: [place]. [place] 12 [facility] omega-3 Yes 1g Take 1 g Univer s acid ethyl 5-10 by mouth. ity of esters 14:51: [place] (LOVAZA) 1 12 MD g capsule [facility] magnesium Yes 400mg Take 400 Uni vers oxide 5-10 mg by ity of (MAOX) 400 14:51: mouth. [place] mg tablet 12 [facility] allopurinol Yes 100mg Take 100 U nivers (ZYLOPRIM) 5-10 mg by ity of 100 mg 14:51: mouth. [place] tablet 12 [facility] amLODIPine Yes 5mg Take 5 mg Un christian (NORVASC) 5 5-10 by mouth. ity of mg tablet 14:51: [place] [address] [facility] esomeprazol Yes 40mg Take 40 mg Univers e (NexIUM) 5-10 by mouth. ity of 40 MG 14:51: [place] capsule 12 [facility] gabapentin Yes 300mg Take 300 Un christian (NEURONTIN) 5-10 mg by ity of 300 mg 14:51: mouth. [place] capsule 12 [facility] metOLazone Yes 2.5mg Take 2.5 Un christian (ZAROXOLYN) 5-10 mg by ity of 2.5 mg 14:51: mouth. [place] tablet 12 [facility] isosorbide Yes 30mg Take 30 mg U nivers mononitrate 5-10 by mouth. ity of (IMDUR) 30 14:51: [place] mg 24 hr 12 MD sainz [facility] tacrolimus Yes .5mg Take 0.5 Uni vers (PROGRAF) 5-10 mg by ity of 0.5 mg 14:51: mouth. [place] capsule 12 [facility] mycophenola Yes Take by Uni vers te 5-10 mouth. ity of (CELLCEPT) 14:51: [place] 500 mg 12 tablet [facility] predniSONE Yes 5mg Take 5 mg Un christian (DELTASONE) 5-10 by mouth. ity of 5 mg tablet 14:51: [place] [address] [facility] aspirin 81 Yes 81mg Take 81 mg U nivers mg EC 5-10 by mouth. ity of tablet 14:51: [place] [address] [facility] calcium Yes 1{tbl} Take 1 Univer s carbonate-v 5-10 tablet by ity of itamin D3 14:51: mouth. [place] 1,250 mg 12 (500 mg as Anderso elemental)- n 200 units Cancer [facility] multivitami Yes 1{tbl} Take 1 Un christian n 5-10 tablet by ity of (THERAGRAN) 14:51: [place]. [place] tablet 12 [facility] thiamine Yes 100mg Take 100 Univ ers (VITAMIN 5-10 mg by ity of B-1) 100 mg 14:51: [place]. [place] tablet 12 [facility] omega-3 Yes 1g Take 1 g Univer s acid ethyl 5-10 by mouth. ity of esters 14:51: [place] (LOVAZA) 1 12 MD g capsule [facility] magnesium Yes 400mg Take 400 Uni vers oxide 5-10 mg by ity of (MAOX) 400 14:51: mouth. [place] mg tablet 12 [facility] allopurinol Yes 100mg Take 100 U nivers (ZYLOPRIM) 5-10 mg by ity of 100 mg 14:51: mouth. [place] tablet 12 [facility] amLODIPine Yes 5mg Take 5 mg Un christian (NORVASC) 5 5-10 by mouth. ity of mg tablet 14:51: [place] 12 [facility] esomeprazol Yes 40mg Take 40 mg Univers e (NexIUM) 5-10 by mouth. ity of 40 MG 14:51: [place] capsule 12 [facility] gabapentin Yes 300mg Take 300 Un christian (NEURONTIN) 5-10 mg by ity of 300 mg 14:51: mouth. [place] capsule 12 [facility] metOLazone Yes 2.5mg Take 2.5 Un christian (ZAROXOLYN) 5-10 mg by ity of 2.5 mg 14:51: mouth. [place] tablet 12 [facility] isosorbide Yes 30mg Take 30 mg U nivers mononitrate 5-10 by mouth. ity of (IMDUR) 30 14:51: [place] mg 24 hr 12 tablet [facility] predniSONE 2021-0 2- No 5mg QD Take 5 mg M ethodi (DELTASONE) -11 01-[address] 5 mg tablet 13:58: 00:00 daily. Hos sayda 13 :00 l predniSONE 2021-0 2- No 5mg QD Take 5 mg M ethodi (DELTASONE) - 05-[address] 5 mg tablet 13:58: 00:00 daily. Hos sayda 13 :00 l predniSONE 2021-0 202- No 5mg QD Take 5 mg M ethodi (DELTASONE) -11 01-[address] 5 mg tablet 13:58: 00:00 daily. Hos sayda 13 :00 l predniSONE 2021-0 Yes 5mg QD Take 1 Metho di (DELTASONE) -02 tablet (5 st 5 mg tablet 00:00: mg total) H ospita 00 by mouth l daily. Z94.1 HEART TRANSPLANT S/P predniSONE 2021-0 2022- No 5mg QD Take 1 Meth susan (DELTASONE) - 05-03 tablet (5 st 5 mg tablet 00:00: 04:59 mg total) Hospita 00 :00 by mouth l daily. Z94.1 HEART TRANSPLANT S/P predniSONE 2021-0 2022- No 5mg QD Take 1 Meth susan (DELTASONE) - 05-03 tablet (5 st 5 mg tablet 00:00: 04:59 mg total) Hospita 00 :00 by mouth l daily. Z94.1 HEART TRANSPLANT S/P predniSONE 2021-0 3- No 5mg QD Take 1 Meth susan (DELTASONE) 5-02 05-03 tablet (5 st 5 mg tablet 00:00: 04:59 mg total) Hospita 00 :00 by mouth l daily. Z94.1 HEART TRANSPLANT S/P predniSONE 2021-0 Yes daily. Unive rs (DELTASONE) 4-21 ity of 2.5 mg 00:00: [place] tablet 00 [facility] predniSONE 2021-0 Yes daily. Unive rs (DELTASONE) 4-21 ity of 2.5 mg 00:00: [place] tablet 00 [facility] predniSONE 2022-0 Yes daily. Unive rs (DELTASONE) 4-21 ity of 2.5 mg 00:00: [place] tablet 00 [facility] predniSONE 2-0 Yes daily. Unive rs (DELTASONE) 4-21 ity of 2.5 mg 00:00: [place] tablet 00 [facility] predniSONE 2021-0 Yes daily. Unive rs (DELTASONE) 4-21 ity of 2.5 mg 00:00: [place] tablet 00 [facility] predniSONE 2021-0 2023- No 7.5mg QD Take 3 Met hodi [...] Heart Transplant S/P tacrolimus 2021-0 2021- No [id number] .5mg Q.5D Take 1 [facility] (PROGRAF) 01-12-[address] 0.5 MG 00:00: 00:00 (0.5 mg Hospita capsule 00 :00 total) by l mouth 2 (two) times a day. tacrolimus 2021-0 2021- No [id number] .5mg Q.5D Take 1 [facility] (PROGRAF) 01-12-[address] 0.5 MG 00:00: 00:00 (0.5 mg Hospita capsule 00 :00 total) by l mouth 2 (two) times a day. tacrolimus 2021-0 2021- No [id number] .5mg Q.5D Take 1 [facility] (PROGRAF) 01-[address] 0.5 MG 00:00: 00:00 (0.5 mg Hospita capsule 00 :00 total) by l mouth 2 (two) times a day. tacrolimus 2021-0 2021- No [id number] .5mg Q.5D Take 1 [facility] (PROGRAF) 01-[address] 0.5 MG 00:00: 00:00 (0.5 [...] 81 MG 08:39: chewable 08 tablet aspirin 2-0 Yes 81mg 81 mg. [place] (ASPIRIN) [facility] 81 MG 08:39: chewable 08 tablet aspirin 2-0 Yes 81mg 81 mg. [place] (ASPIRIN) [facility] 81 MG 08:39: chewable 08 tablet aspirin 2021-0 Yes 81mg 81 mg. [place] (ASPIRIN) 01-02 [facility] 81 MG 08:39: chewable 08 tablet OneTouch 2021-0 Yes daily. Univers Verio test 3-28 ity of strips strp 00:00: [place] 00 [facility] OneTouch 2021-0 Yes daily. Univers Verio test 3-28 ity of strips strp 00:00: [place] 00 [facility] OneTouch 2021-0 Yes daily. Univers Verio test 3-28 ity of strips strp 00:00: [place] 00 [facility] OneTouch 202-0 Yes daily. Univers Verio test 3-28 ity of strips strp 00:00: [place] 00 [facility] OneTouch 2021-0 Yes daily. Univers Verio test 3-28 ity of strips strp 00:00: [place] 00 [facility]-0 Yes TAKE 1 Method i oxide 3-[address] (MAG-OX) 00:00: MOUTH Hospita 400 mg 00 TWICE A l (241.3 mg DAY magnesium) tablet magnesium 2021-0 Yes TAKE 1 [facility] i oxide 3-[address] (MAG-OX) 00:00: MOUTH Hospita 400 mg 00 TWICE A l (241.3 mg DAY magnesium) tablet magnesium 2021-0 2022- No TAKE 1 Metho di oxide 3-14 02-[address] (MAG-OX) 00:00: 00:00 MOUTH Hospita 400 mg 00 :00 TWICE A l (241.3 mg DAY magnesium) tablet magnesium 2021-0 2022- No TAKE 1 Metho di oxide 3-14 02-[address] (MAG-OX) 00:00: 00:00 MOUTH Hospita 400 mg 00 :00 TWICE A l (241.3 mg DAY magnesium) tablet amLODIPine 0 2022- No 5mg QD Take 1 Meth susan (NORVASC) 5 2-20 - tablet (5 st mg tablet 00:00: 05:59 mg total) Ho spita 00 :00 by mouth l daily. Pt. tittrating between 2,5 and 5 mg based on BP and renal function amLODIPine 2021-0 2022- No 5mg QD Take 1 Meth susan (NORVASC) 5 2-20 - tablet (5 st mg tablet 00:00: 00:00 mg total) Ho spita 00 :00 by mouth l daily. Pt. tittrating between 2,5 and 5 mg based on BP and renal function amLODIPine 2021-0 3- No 5mg QD Take 1 Meth susan (NORVASC) 5 2-20 - tablet (5 st mg tablet 00:00: 00:00 mg total) Ho spita 00 :00 by mouth l daily. Pt. tittrating between 2,5 and 5 mg based on BP and renal function amLODIPine 2021-0 3- No 5mg QD Take 1 Meth susan (NORVASC) 5 2-20 - tablet (5 st mg tablet 00:00: 00:00 mg total) Ho spita 00 :00 by mouth l daily. Pt. tittrating between 2,5 and 5 mg based on BP and renal function pravastatin Yes 80mg QD Take 1 Meth susan (PRAVACHOL) 2 tablet (80 st 80 MG 00:00: mg total) Hospita tablet 00 by mouth l daily. pravastatin 0 Yes 80mg QD Take 1 Meth susan (PRAVACHOL) 2 tablet (80 st 80 MG 00:00: mg total) Hospita tablet 00 by mouth l daily. pravastatin 2022- No 80mg QD Take 1 Met hodi (PRAVACHOL) 10-28 tablet (80 s t 80 MG 00:00: 00:00 mg total) Hospit a tablet 00 :00 by mouth l daily. pravastatin 2022- No 80mg QD Take 1 Met hodi (PRAVACHOL) 10-28 tablet (80 s t 80 MG 00:00: 00:00 mg total) Hospit a tablet 00 :00 by mouth l daily. torsemide 2022- No [...] 40mg QD Take 2 Metho di (DEMADEX) 10-[address] 20 MG 00:00: 00:00 (40 mg Hospita tablet 00 :00 total) by l mouth daily. torsemide 2022- No 40mg QD Take 2 Metho di (DEMADEX) 10-[address] 20 MG 00:00: 00:00 (40 mg Hospita tablet 00 :00 total) by l mouth daily. tacrolimus 2021- No [id number] TAKE 1 [facility] (PROGRAF) 10-[address] 0.5 MG 00:00: 00:00 MOUTH Hospita capsule 00 :00 TWICE A l DAY tacrolimus 2021-2021- No [id number] TAKE 1 [facility] (PROGRAF) 10-[address] 0.5 MG 00:00: 00:00 MOUTH Hospita capsule 00 :00 TWICE A l DAY tacrolimus 2021-0 2021- No [id number] TAKE 1 [facility] (PROGRAF) 10-28 CAPSULE BY [...] by mouth l daily. sertraline 2021- No [id number] TAKE 1 [facility] (ZOLOFT) 50 10-10 05-[address] MG tablet 00:00: 00:00 MOUTH Hospit a 00 :00 EVERY DAY l sertraline 2021-0 2021- No [id number] TAKE 1 [facility] (ZOLOFT) 50 14 05-[address] MG tablet 00:00: 00:00 MOUTH Hospit a 00 :00 EVERY DAY l sertraline 2021- No [id number] TAKE 1 [facility] (ZOLOFT) 50 1-14 -[address] MG tablet 00:00: 00:00 MOUTH Hospit a 00 :00 EVERY DAY l predniSONE 2020-2021- No 7.5mg QD Take 3 Met hodi (DELTASONE) 2-18 04-[address] 2.5 mg 00:00: 00:00 (7.5 mg Hospita tablet 00 :00 total) by l mouth daily for 30 days. predniSONE 2020-2021- No 7.5mg QD Take 3 Met hodi (DELTASONE) 2-18 04-[address] 2.5 mg 00:00: 00:00 (7.5 mg Hospita tablet 00 :00 total) by l mouth daily for 30 days. predniSONE 2020-2021- No 7.5mg QD Take 3 Met hodi (DELTASONE) 2-18 04-[address] 2.5 mg 00:00: 00:00 (7.5 mg Hospita tablet 00 :00 total) by l mouth daily for 30 days. benzonatate 2020-09- No 200mg Q.[id number] Take 1 [facility] (TESSALON) 2-10 02-[id number] 200 MG 00:00: 00:00 3D (200 mg Hospita capsule 00 :00 total) by l mouth 3 (three) times a day as needed for cough. benzonatate 2020-2021- No 200mg Q.[id number] Take 1 [facility] (TESSALON) 2-10 02-[id number] 200 MG 00:00: 00:00 3D (200 mg Hospita capsule 00 :00 total) by l mouth 3 (three) times a day as needed for cough. benzonatate 2020-09- No 200mg Q.[id number] Take 1 [facility] (TESSALON) 2- 05-[id number] 200 MG 00:00: 00:00 3D (200 mg Hospita capsule 00 :00 total) by l mouth 3 (three) times a day as needed for cough. labetaloL 2020-2021- No 50mg Q.5D Take 0.5 Met hodi (NORMODYNE) 11-[address] 100 MG 00:00: 00:00 (50 mg Hospita tablet 00 :00 total) by l mouth 2 (two) times a day for 30 days. arformotero 2020-09- No [id number] 15ug Q.5D Take 2 mL [facility] L [...] 2020-09- No TAKE 1 Met hodi (ZYLOPRIM) 10-20- TABLET BY st 100 MG 00:00: 00:00 MOUTH Hospita tablet 00 :00 TWICE A l DAY allopurinoL 2020-09- No TAKE 1 Met hodi (ZYLOPRIM) 10-[address] 100 MG 00:00: 00:00 MOUTH Hospita tablet 00 :00 TWICE A l DAY insulin 2020-09- No [id number] DX 11.654 [facility] syringe-nee 10-[address] dle U-100 00:00: 00:00 INJECT Hospi ta (BD Insulin 00 :00 TWICE l Syringe DAILY Ultra-Fine) 0.5 mL 31 gauge x 5/16" syringe insulin 2020-09- No [id number] DX 11.654 [facility] syringe-nee 10-[address] dle U-100 00:00: 00:00 INJECT Hospi ta (BD Insulin 00 :00 TWICE l Syringe DAILY Ultra-Fine) 0.5 mL 31 gauge x 5/16" syringe insulin 2020-09- No [id number] DX 11.654 [facility] syringe-nee 10-[address] dle U-100 00:00: 00:00 INJECT Hospi ta (BD Insulin 00 :00 TWICE l Syringe DAILY Ultra-Fine) 0.5 mL 31 gauge x 5/16" syringe insulin 2020-09- No [id number] DX 11.654 [facility] syringe-nee 10-[address] dle U-100 00:00: 00:00 INJECT Hospi ta (BD Insulin 00 :00 TWICE l Syringe DAILY Ultra-Fine) 0.5 mL 31 gauge x 5/16" syringe OneTouch Yes DX E11.65 Meth susan Delica Plus [address] Lancet 33 00:00: TIMES Hospita gauge misc 00 DAILY l OneTouch 0 Yes DX E11.65 Meth susan Delica Plus [address] Lancet 33 00:00: TIMES Hospita gauge misc 00 DAILY l OneTouch 2022- No DX E11.65 Met hodi Delica Plus 06-26 TEST THREE s t Lancet 33 00:00: 00:00 TIMES Hospit a gauge misc 00 :00 DAILY l OneTouch 202- No DX E11.65 Met hodi Delica Plus 06-26 TEST THREE s t Lancet 33 00:00: 00:00 TIMES Hospit a gauge misc 00 :00 DAILY l NovoLIN 2021- No INJECT [facility] [...] 20 UNITS EVERY EVENING gabapentin 2021- No [id number] 300mg Q.[id number] Take 1 [facility] (NEURONTIN) 04-[id number] 300 mg 00:00: 04:59 3D (300 mg Hospita capsule 00 :00 total) by l mouth 3 (three) times a day. gabapentin 2021- No [id number] 300mg Q.[id number] Take 1 [facility] (NEURONTIN) 04-[id number] 300 mg 00:00: 04:59 3D (300 mg Hospita capsule 00 :00 total) by l mouth 3 (three) times a day. gabapentin 2021- No [id number] 300mg Q.[id number] Take 1 [facility] (NEURONTIN) 04-[id number] 300 mg 00:00: 04:59 3D (300 mg [facility] capsule 00 :00 total) by l mouth 3 (three) times a day. gabapentin 2021- No [id number] 300mg Q.[id number] Take 1 [facility] (NEURONTIN) 04-[id number] 300 mg 00:00: 04:59 3D (300 mg [facility] capsule 00 :00 total) by l mouth 3 (three) times a day. folic acid 2021- No TAKE 1 [facility] (FOLVITE) 1 04-22-[address] [facility] tablet 00:00: 00:00 MOUTH Hospit a 00 :00 EVERY DAY l sertraline 2021- No [id number] 50mg QD Take 1 [facility] (ZOLOFT) 50 04-16 01-14 tablet (50 s t MG tablet 00:00: 00:00 mg total) [facility] 00 :00 by mouth l daily. blood sugar 2021- No [id number] USE [facility] diagnostic 03-[address] strips 00:00: 00:00 TIMES A [facility] (OneTouch 00 :00 DAY l Verio test strips) strip test strips blood sugar 2021- No [id number] USE [facility] diagnostic 03-[address] strips 00:00: 00:00 TIMES A [facility] (OneTouch 00 :00 DAY l Verio test strips) strip test strips blood sugar 2021- No [id number] USE [facility] diagnostic 03-[address] [...] :00 by mouth l tablet daily. isosorbide 2020-0 2021- No 30mg QD Take 1 [facility] mononitrate 3 05-20 tablet (30 s t (IMDUR) 30 00:00: 00:00 mg total) [facility] MG 24 hr 00 :00 by mouth l tablet daily. isosorbide 2020-0 2- No 30mg QD Take 1 [facility] mononitrate 3 05-20 tablet (30 s t (IMDUR) 30 00:00: 00:00 mg total) [facility] MG 24 hr 00 :00 by mouth l tablet daily. amLODIPine 2021- No 5mg QD Take 1 [facility] (NORVASC) 5 11-25-20 tablet (5 st mg tablet 00:00: 00:00 [...] a day. Z94.1 Heart Txp S/P traMADol 2019-0 Yes 50mg Take 1 [facility] (ULTRAM) 50 4-17 tablet (50 st mg tablet 00:00: mg total) [facility] say[facility] 00 by mouth l as needed. traMADol 2018-0 Yes 50mg Take 1 [facility] (ULTRAM) 50 4-17 tablet (50 st mg tablet 00:00: mg total) [facility] 00 by mouth l as needed. traMADol 0 Yes 50mg Take 50 mg [facility] (ULTRAM) 50 4-[address] mg tablet 00:00: as needed. [facility] 00 l traMADol 2022- No 50mg Take 1 [facility] (ULTRAM) 50 4-17 05-09 tablet (50 s t mg tablet 00:00: 00:00 mg total) [facility] 00 :00 by mouth l as needed. (per [facility] Monitoring [facility], last filled 08/06/22, quantity: 42, day supply: 7) magnesium Yes 400mg Q.5D Take [address] [facility] oxide 1-25 mg [facility] (MAG-OX) 14:56: mouth 2 Medica l 400 mg 08 (two) Center (241.3 mg times magnesium) daily. tablet metOLazone Yes 2.5mg Take 2.[address] [facility] [address] [facility] (ZAROXOLYN) 1-25 mg [facility] 2.5 MG 14:56: mouth as Medical tablet 08 needed. Center pravastatin Yes 80mg QD Take [address] [facility] (PRAVACHOL) 1-25 by mouth Luke [facility] 80 MG 14:56: nightly. Medical tablet 08 Center montelukast Yes 10mg Take [address] [facility] (SINGULAIR) 1-25 by mouth Luke [facility] 10 mg 14:56: as needed. Medica l tablet 08 Center tamsulosin Yes .4mg QD Take 0.[address] [facility] (FLOMAX) 1-25 mg [facility] 0.4 mg Cap 14:56: mouth Medica l 24 hr 08 daily. Center capsule traMADol 0 Yes 50mg Take [address] [facility] (ULTRAM) 50 1-25 by mouth Luke s mg tablet 14:56: every 6 Medic al 08 (six) Center hours as needed for Pain. tacrolimus 0 Yes .5mg Q.5D Take 0.[address] [facility] (PROGRAF) 1-25 mg [facility] 0.5 MG 14:56: mouth 2 Medical capsule 08 (two) Center times daily. fesoterodin 2019-0 Yes QD Take by [facility] (TOVIAZ) 1-25 [facility] 4 mg 24 hr 14:56: daily. Medic al tablet 08 [place] predniSONE 2019-0 Yes 5mg QD Take [address] [facility] [address] [facility] (DELTASONE) 1-25 by mouth Luke s 5 MG tablet 14:56: daily. Medi jacquelyn [address] [place] [address] torsemide 2019-0 Yes 40mg QD Take [address] [facility] [address] [facility] (DEMADEX) 1-25 by [facility] 20 MG 14:56: daily. Medical tablet 08 [place] MULTIVITAMI 2019-0 Yes Take by [facility] N ORAL 1-25 mouth. [facility] 14:56: Medical 08 [place] labetalol 2019-0 Yes 100mg Q.5D Take [address] [facility] (NORMODYNE) 1-25 mg by [facility] 100 MG 14:56: mouth 2 Medical tablet 08 (two) Center times daily. potassium 2019-0 Yes 10meq QD Take [address] [facility] chloride SA 1-25 mEq by [facility] (K-DUR,KLOR 14:56: mouth Medic al -CON) 10 08 daily. [place] MEQ tablet magnesium 2018-0 Yes 400mg Q.5D Take [address] [facility] oxide 1-25 mg [facility] (MAG-OX) 14:56: mouth 2 Medica l 400 mg 08 (two) [place] (241.3 mg times magnesium) daily. tablet metOLazone 0 Yes 2.5mg Take 2.[address] (ZAROXOLYN) 1-25 mg [facility] 2.5 MG 14:56: mouth as Medical tablet 08 needed. [place] pravastatin 2019-0 Yes 80mg QD Take [address] [facility] (PRAVACHOL) 1-25 by mouth Luke s 80 MG 14:56: nightly. Medical tablet [address] [place] [address] montelukast 2019-0 Yes 10mg Take [address] [facility] (SINGULAIR) 1-25 by mouth Luke s 10 mg 14:56: as needed. Medica l tablet 08 [place] tamsulosin 2019-0 Yes .4mg QD Take 0.[address] [facility] (FLOMAX) 1-25 mg [facility] 0.4 mg Cap 14:56: mouth Medica l 24 hr 08 daily. [place] capsule traMADol 2019-0 Yes 50mg Take [address] [facility] (ULTRAM) 50 1-25 by mouth Luke s mg tablet 14:56: every 6 Medic al 08 (six) Center hours as needed for Pain. fesoterodin 2019-0 Yes QD Take by [facility] (TOVIAZ) 1-25 [facility] 4 mg 24 hr 14:56: daily. Medic al tablet 08 [place] tacrolimus 2019-0 Yes .5mg Q.5D Take 0.[address] [facility] (PROGRAF) 1-25 mg by [facility] 0.5 MG 14:56: mouth 2 Medical capsule 08 (two) Center times daily. predniSONE 2019-0 Yes 5mg QD Take [address] [facility] [address] [facility] (DELTASONE) 1-25 by mouth Luke s 5 MG tablet 14:56: daily. Medi jacquelyn [address] [place] [address] torsemide 20190 Yes 40mg QD Take [address] [facility] [address] [facility] (DEMADEX) 1-25 by mouth [facility] 20 MG 14:56: daily. Medical tablet 08 [place] MULTIVITAMI 0 Yes Take by [facility] N ORAL 1-25 mouth. [facility] 14:56: Medical 08 [place] labetalol 20190 Yes 100mg Q.5D Take [address] [facility] (NORMODYNE) 1-25 mg [facility] 100 MG 14:56: mouth 2 Medical tablet 08 (two) Center times daily. potassium 2019-0 Yes 10meq QD Take [address] [facility] chloride SA 1-25 mEq [facility] (K-DUR,KLOR 14:56: mouth Medic al -CON) 10 08 daily. [place] MEQ tablet magnesium 2018-0 Yes 400mg Q.5D Take [address] [facility] [address] oxide 1-25 mg [facility] (MAG-OX) 14:56: mouth 2 Medica l 400 mg 08 (two) [place] (241.3 mg times magnesium) daily. tablet metOLazone 0 Yes 2.5mg Take 2.[address] (ZAROXOLYN) 1-25 mg [facility] 2.5 MG 14:56: mouth as Medical tablet 08 needed. [place] pravastatin 0 Yes 80mg QD Take [address] [facility] (PRAVACHOL) 1-25 by mouth Luke s 80 MG 14:56: nightly. Medical tablet 08 [place] montelukast 2019-0 Yes 10mg Take [address] [facility] (SINGULAIR) 1-25 by mouth Luke s 10 mg 14:56: as needed. Medica l tablet 08 [place] tamsulosin Yes .4mg QD Take 0.[address] [facility] [address] (FLOMAX) 1-25 mg [facility] 0.4 mg Cap 14:56: mouth Medica l 24 hr 08 daily. [place] capsule traMADol 0 Yes 50mg Take [address] [facility] (ULTRAM) 50 1-25 by mouth Luke s mg tablet 14:56: every 6 Medic al 08 (six) Center hours as needed for Pain. fesoterodin 2019-0 Yes QD Take by [facility] (TOVIAZ) 1-25 [facility] 4 mg 24 hr 14:56: daily. Medic al tablet 08 [place] tacrolimus 2018-0 Yes .5mg Q.5D Take 0.[address] [facility] (PROGRAF) 1-25 mg [facility] 0.5 MG 14:56: mouth 2 Medical capsule 08 (two) Center times daily. predniSONE 20190 Yes 5mg QD Take [address] [facility] [address] [facility] (DELTASONE) 1-25 by mouth Luke [facility] 5 MG tablet 14:56: daily. Medi jacquelyn [address] [place] [address] torsemide 0 Yes 40mg QD Take [address] [facility] [address] [facility] (DEMADEX) 1-25 by [facility] 20 MG 14:56: daily. Medical tablet 08 [place] MULTIVITAMI 0 Yes Take by [facility] N ORAL 1-25 mouth. [facility] 14:56: Medical 08 [place] labetalol 0 Yes 100mg Q.5D Take [address] [facility] (NORMODYNE) 1-25 mg by [facility] 100 MG 14:56: mouth 2 Medical tablet 08 (two) Center times daily. potassium 2019-0 Yes 10meq QD Take [address] [facility] [address] chloride SA 1-25 mEq [facility] (K-DUR,KLOR 14:56: mouth Medic al -CON) 10 08 daily. [place] MEQ tablet magnesium 2019-0 Yes 400mg Q.5D Take [address] [facility] [address] oxide 1-25 mg by [facility] (MAG-OX) 14:56: mouth 2 Medica l 400 mg 08 (two) Center (241.3 mg times magnesium) daily. tablet metOLazone 0 Yes 2.5mg Take 2.[address] (ZAROXOLYN) 1-25 mg by [facility] 2.5 MG 14:56: mouth as Medical tablet 08 needed. [place] pravastatin 0 Yes 80mg QD Take [address] [facility] (PRAVACHOL) 1-25 by mouth Luke [facility] 80 MG 14:56: nightly. Medical tablet 08 [place] montelukast 2019-0 Yes 10mg Take [address] [facility] (SINGULAIR) 1-25 by mouth Luke [facility] 10 mg 14:56: as needed. Medica l tablet [address] [place] [address] tamsulosin 2018-0 Yes .4mg QD Take 0.[address] [facility] [address] (FLOMAX) 1-25 mg by [facility] 0.4 mg Cap 14:56: mouth Medica l 24 hr 08 daily. [place] capsule traMADol 2018-0 Yes 50mg Take [address] [facility] (ULTRAM) 50 1-25 by mouth Luke [facility] mg tablet 14:56: every 6 Medic al 08 (six) Center hours as needed for Pain. fesoterodin 2019-0 Yes QD Take by [facility] (TOVIAZ) 1-25 [facility] 4 mg 24 hr 14:56: daily. Medic al tablet [address] [place] [address] tacrolimus Yes .5mg Q.5D Take 0.[address] [facility] [address] (PROGRAF) 1-25 mg by [facility] 0.5 MG 14:56: mouth 2 Medical capsule 08 (two) Center times daily. predniSONE 2019-0 Yes 5mg QD Take [address] [facility] [address] [facility] (DELTASONE) 1-25 by mouth Luke s 5 MG tablet 14:56: daily. Medi jacquelyn [address] [place] [address] torsemide 0 Yes 40mg QD Take [address] [facility] [address] [facility] (DEMADEX) 1-25 by mouth [facility] 20 MG 14:56: daily. Medical tablet [address] [place] [address] MULTIVITAMI 0 Yes Take by [facility] N ORAL 1-25 mouth. [facility] 14:56: Medical [address] [place] [address] labetalol 20190 Yes 100mg Q.5D Take [address] [facility] (NORMODYNE) 1-25 mg by [facility] 100 MG 14:56: mouth 2 Medical tablet 08 (two) Center times daily. potassium 2019-0 Yes 10meq QD Take [address] [facility] [address] chloride SA 1-25 mEq by [facility] (K-DUR,KLOR 14:56: mouth Medic al -CON) 10 08 daily. Center MEQ tablet tacrolimus 2019-0 Yes .5mg Q.5D Take 0.[address] [facility] (PROGRAF) 1-25 mg by [facility] 0.5 MG 14:56: mouth 2 Medical capsule 08 (two) Center times daily. predniSONE 2019-0 Yes 5mg QD Take [address] [facility] [address] [facility] (DELTASONE) 1-25 by mouth Luke s 5 MG tablet 14:56: daily. Medi jacquelyn [address] [place] [address] torsemide 2019 Yes 40mg QD Take [address] [facility] [address] [facility] (DEMADEX) 1-25 by mouth [facility] 20 MG 14:56: daily. Medical tablet 08 [place] MULTIVITAMI Yes Take by [facility] N ORAL 1-25 mouth. [facility] 14:56: Medical 08 [place] labetalol 20190 Yes 100mg Q.5D Take [address] [facility] [address] (NORMODYNE) 1-25 mg by [facility] 100 MG 14:56: mouth 2 Medical tablet 08 (two) Center times daily. potassium 2019 Yes 10meq QD Take [address] [facility] chloride SA 1-25 mEq by [facility] (K-DUR,KLOR 14:56: mouth Medic al -CON) 10 08 daily. [place] MEQ tablet magnesium Yes 400mg Q.5D Take [address] oxide 1-25 mg by [facility] (MAG-OX) 14:56: mouth 2 Medica l 400 mg 08 (two) Center (241.3 mg times magnesium) daily. tablet metOLazone Yes 2.5mg Take 2.[address] (ZAROXOLYN) 1-25 mg by [facility] 2.5 MG 14:56: mouth as Medical tablet 08 needed. [place] pravastatin Yes 80mg QD Take [address] [facility] (PRAVACHOL) 1-25 by mouth Luke s 80 MG 14:56: nightly. Medical tablet [address] [place] [address] montelukast Yes 10mg Take [address] [facility] (SINGULAIR) 1-25 by mouth Luke s 10 mg 14:56: as needed. Medica l tablet 08 [place] tamsulosin Yes .4mg QD Take 0.[address] [facility] [address] (FLOMAX) 1-25 mg by [facility] 0.4 mg Cap 14:56: mouth Medica l 24 hr 08 daily. [place] capsule traMADol Yes 50mg Take [address] [facility] (ULTRAM) 50 1-25 by mouth Luke s mg tablet 14:56: every 6 Medic al 08 (six) Center hours as needed for Pain. fesoterodin 0 Yes QD Take by [facility] (TOVIAZ) 1-25 [facility] 4 mg 24 hr 14:56: daily. Medic al tablet 08 Center isosorbide Yes 30mg QD Take [address] dinitrate 1-25 by mouth [facility] (ISORDIL) 14:56: daily. Medica l 30 MG 07 [place] tablet insulin Yes Inject [facility] aspart 1-25 subcutaneo [facility] protamine-i 14:56: usly 2 Medi jacquelyn nsulin 07 (two) Center aspart times (NOVOLOG daily with MIX 70/30) breakfast 100 unit/mL and (70-30) dinner. injection HYDROcodone 2018- Yes 1{tbl} Take [address] -acetaminop 1-25 tablet by [place] (NORCO 14:56: mouth Medica l 5-325) 07 every 6 Center 5-325 mg (six) per tablet hours as needed for Pain. finasteride Yes 5mg QD Take [address] (PROSCAR) 5 1-25 by mouth [facility] mg tablet 14:56: daily. [facility] [address] amLODIPine Yes 5mg QD Take [address] [facility] [address] [facility] (NORVASC) 5 1-25 by mouth Luke [facility] MG tablet 14:56: daily. [facility] [address] folic acid Yes 1mg QD Take [address] [facility] [address] [facility] (FOLVITE) 1 1-25 by mouth Luke [facility] MG tablet 14:56: daily. [facility] [address] aspirin 81 2018- Yes 81mg QD Take [address] MG EC 1-25 by mouth [facility] tablet 14:56: daily. Medical [address] [place] [address] esomeprazol Yes 20mg Q.5D Take 20 mg [facility] [...] with Center breakfast. gabapentin 2019-0 Yes 300mg Q.[id number] Take [address] [facility] [address] (NEURONTIN) 1-25 [id number] mg by L ukes 300 MG 14:56: [...] mouth Luke s mg tablet 14:56: daily. [address] amLODIPine 2019-0 Yes 5mg QD Take [address] [facility] [address] [facility] (NORVASC) 5 1-25 by mouth Luke [facility] MG tablet 14:56: daily. [address] folic acid 2018-0 Yes 1mg QD Take [address] [facility] [address] [facility] (FOLVITE) 1 1-25 by mouth Luke s MG tablet 14:56: daily. [address] aspirin 81 2019-0 Yes 81mg QD Take [address] MG EC 1-25 by mouth [facility] tablet 14:56: daily. Medical [address] [place] [address] esomeprazol 2019-0 Yes 20mg Q.5D Take 20 [...] with Center breakfast. gabapentin 2019-0 Yes 300mg Q.[id number] Take [address] [address] (NEURONTIN) 1-25 [id number] mg by L ukes 300 MG 14:56: [...] Luke s mg tablet 14:56: daily. Medica [address] amLODIPine 2019-0 Yes 5mg QD Take [address] [facility] [address] (NORVASC) 5 1-25 by mouth Luke s MG tablet 14:56: daily. Medica [address] folic acid 2019-0 Yes 1mg QD Take [address] [facility] [address] [facility] (FOLVITE) 1 1-25 by mouth Luke s MG tablet 14:56: daily. Medica [address] aspirin 81 2019-0 Yes 81mg QD Take [...] with Center breakfast. gabapentin 2019-0 Yes 300mg Q.[id number] Take [address] [facility] (NEURONTIN) 1-25 [id number] mg by L ukes 300 MG 14:56: 3D mouth 3 Medical capsule 07 (three) Center times daily. isosorbide 20190 Yes 30mg QD Take 30 mg C [...] tablet hours as needed for Pain. finasteride 2019-0 Yes 5mg QD Take [address] (PROSCAR) 5 1-25 by mouth Luke [facility] mg tablet 14:56: daily. Medica l 07 Center amLODIPine 2019-0 Yes 5mg QD Take [address] [facility] [address] [facility] (NORVASC) 5 1-25 by mouth Luke s MG tablet 14:56: daily. Medica l 07 Center folic acid 2018-0 Yes 1mg QD Take [address] [facility] [address] [facility] (FOLVITE) 1 1-25 by mouth Luke s MG tablet 14:56: daily. [address] aspirin 81 2019-0 Yes 81mg QD Take [address] MG EC 1-25 by mouth [facility] tablet 14:56: daily. [address] esomeprazol 2019-0 Yes 20mg Q.5D Take 20 [...] tablet 07 daily with Center breakfast. gabapentin 2018-0 Yes 300mg Q.[id number] Take [address] [facility] [address] (NEURONTIN) 1-25 [id number] mg by L ukes 300 MG 14:56: 3D mouth 3 Medical capsule 07 (three) Center times daily. amLODIPine 2019-0 Yes 5mg QD Take [address] [facility] [address] [facility] (NORVASC) 5 1-25 by mouth Luke s MG tablet 14:56: daily. [address] folic acid 2018-0 Yes 1mg QD Take [address] [facility] [address] [facility] (FOLVITE) 1 1-25 by mouth Luke s MG tablet 14:56: daily. [address] aspirin 81 2019-0 Yes 81mg QD Take [address] MG EC 1-25 by mouth [facility] tablet 14:56: daily. [address] esomeprazol 2019-0 Yes 20mg Q.5D Take [address] [facility] (NEXIUM) 1-25 by mouth 2 [place] 20 MG 14:56: (two) Medical capsule 07 times Center daily. allopurinol 2019-0 Yes 100mg Q.5D Take [address] (ZYLOPRIM) 1-25 mg by [facility] 100 MG 14:56: mouth 2 Medical tablet 07 (two) Center times daily. ALPRAZolam 2019- Yes .5mg Take 0.[address] [facility] (XANAX) 0.5 1-25 mg by [facility] MG tablet 14:56: mouth Medical 07 every Center night as needed for Anxiety. ferrous 2019-0 Yes 325mg Take 325 [facility] sulfate 325 1-25 mg by [facility] (65 FE) MG 14:56: mouth Medica l tablet 07 daily with Center breakfast. gabapentin 2019- Yes 300mg Q.[id number] Take [address] [facility] [address] (NEURONTIN) 1-25 [id number] mg by L ukes 300 MG 14:56: 3D mouth 3 Medical capsule 07 (three) Center times daily. isosorbide 2019- Yes 30mg QD Take [address] dinitrate 1-25 by mouth [facility] (ISORDIL) 14:56: daily. Medica l 30 MG 07 Center tablet insulin 2018- Yes Inject [facility] aspart 1-25 subcutaneo [...] 14:56: daily. Medica l 07 Center gabapentin 2018 Yes 300 mg = 1 [...] Mallorie nn 00 cap, 0 Refill(s) gabapentin 2018-0 Yes 300 mg = 1 M emoria 300 MG Oral 7-23 cap, PO, l Capsule 22:48: BID, # 28 Mallorie nn 00 cap, 0 Refill(s) gabapentin 2018-0 Yes 300 mg = 1 M emoria 300 MG Oral 7-23 cap, PO, l Capsule 22:48: BID, # 28 Mallorie nn 00 cap, 0 Refill(s) gabapentin 2018-0 Yes 300 mg = 1 M emoria 300 MG Oral 7-23 cap, PO, l Capsule 22:48: BID, # 28 [facility]orie nn 00 cap, 0 Refill(s) gabapentin 2018-0 Yes 300 mg = 1 M emoria 300 MG Oral 7-23 cap, PO, l Capsule 22:48: BID, # 28 [facility] nn 00 cap, 0 Refill(s) gabapentin 2018-0 Yes 300 mg = 1 M emoria 300 MG Oral 7-23 cap, PO, l Capsule 22:48: BID, # 28 Mallorie nn 00 cap, 0 Refill(s) gabapentin 2018-0 Yes 300 mg = 1 M emoria 300 MG Oral 7-23 cap, PO, l Capsule 22:48: BID, # 28 [facility] nn 00 cap, 0 Refill(s) gabapentin 2018-0 Yes 300 mg = 1 M emoria 300 MG Oral 7-23 cap, PO, l Capsule 22:48: BID, # 28 [facility] nn 00 cap, 0 Refill(s) gabapentin 2018-0 Yes 300 mg = 1 M emoria 300 MG Oral 7-23 cap, PO, l Capsule 22:48: BID, # 28 [facility]orie nn 00 cap, 0 Refill(s) methocarbam 2017- No 1,000 mg = Memoria ol 500 mg -23 2 tab, PO, l oral tablet 22:44: Q8H, X 14 H erm day, # 84 tab, 0 Refill(s) Lidocaine Yes 1 patch, Shine sarah 0.05 MG/MG -23 TOP, Q24H, l Transdermal 22:44: # 14 [place] n Patch 00 patch, 0 Refill(s) Docusate 2017- Yes 100 mg = 1 Mem oria [...] n Patch 00 patch, 0 Refill(s) Docusate 2018-0 Yes 100 mg = 1 Mem oria [...] No 17 gm, PO, Memoria e glycol 7 BID, X 14 l 3350 oral 22:44: day, # 12 Her aguirre powder for 00 ea, 0 reconstitut Refill(s) ion Tacrolimus No Notes: Memor ia 04-18 Avoid l 04:07: grapefruit [place] 00 and grapefruit juice. (Same As: Prograf) Tacrolimus No Notes: Memor ia 04-18 Avoid l 04:07: grapefruit [place] 00 and grapefruit juice. (Same As: Prograf) Tacrolimus No Notes: Memor ia 04-18 Avoid l 04:07: grapefruit [place] 00 and grapefruit juice. (Same As: Prograf) Tacrolimus No Notes: Memor ia 04-18 Avoid l 04:07: grapefruit [place] 00 and grapefruit juice. (Same As: Prograf) Tacrolimus No Notes: Memor ia 04-18 Avoid l 04:07: grapefruit [place] 00 and grapefruit juice. (Same As: Prograf) Tacrolimus No Notes: Memor ia 04-18 Avoid l 04:07: grapefruit [facility] 00 and grapefruit juice. (Same As: Prograf) Tacrolimus No Notes: Memor ia 04-18 Avoid l 04:07: grapefruit Sae 00 and grapefruit juice. (Same As: Prograf) Tacrolimus No Notes: Memor ia 04-18 Avoid l 04:07: grapefruit [place] 00 and grapefruit juice. (Same As: Prograf) Tacrolimus 2018-0 No Notes: Memor ia 7-23 Avoid l 04:07: grapefruit Sae 00 and grapefruit juice. (Same As: Prograf) Tacrolimus No Notes: Memor ia 7-23 Avoid l 04:07: grapefruit Sae 00 and grapefruit juice. (Same As: Prograf) Tacrolimus 0 No Notes: Memor ia 7-23 Avoid l 04:07: grapefruit [place] 00 and grapefruit juice. (Same As: Prograf) docusate 20180 Yes daily. [facility] sodium 7-23 ity of (Colace) 00:00: [place] 100 mg 00 [place] capsule [facility] docusate 2018-0 Yes daily. [facility] sodium 100 7-23 ity of mg/5 mL 00:00: [place] enem 00 [facility] docusate 2018-0 Yes daily. [facility] sodium 7-23 ity of (Colace) 00:00: [place] [facility]. [facility] sodium 100 7-23 ity of mg/5 mL 00:00: [place] enem 00 [facility] docusate 2018-0 Yes daily. [facility] sodium 7-23 ity of (Colace) 00:00: [place] 100 mg 00 [facility] docusate 2018-0 Yes daily. [facility] sodium 100 7-23 ity of mg/5 mL 00:00: [place] enem 00 [facility] docusate 2018-0 Yes daily. [facility] sodium 7-23 ity of (Colace) 00:00: [place] 100 mg 00 [facility] docusate 2018-0 Yes daily. [facility] sodium 100 7-23 ity of mg/5 mL 00:00: [place] enem 00 [facility] docusate 2018-0 Yes daily. [facility] sodium 7-23 ity of (Colace) 00:00: [place] 100 mg 00 [facility] docusate 2018-0 Yes daily. [facility] sodium 100 7-23 ity of mg/5 mL 00:00: [place] enem 00 [facility] Methadone 0 No Notes: Memori a 7-22 (Same as: [...] 7-22 (Same As: l 13:00: Prograf) Prograf 2018-0 No Notes: [facility]oria 7-22 (Same As: l 13:00: Prograf) Sae 00 Prograf No Notes: [facility] 7-22 (Same As: l 13:00: Prograf) Sae 00 Prograf No Notes: [facility] 7-22 (Same As: l 13:00: Prograf) [place] 00 Prograf No Notes: [facility] 7-22 (Same As: l 13:00: Prograf) [place] 00 remove No Notes: [facility]oria patch 7-22 Remove l 11:00: patch 12 [place] 00 hours after applicatio n each day. remove No Notes: [facility] patch 7-22 Remove l 11:00: patch 12 [place] 00 hours after applicatio n each day. remove No Notes: [facility] patch 7-22 Remove l 11:00: patch 12 [place] 00 hours after applicatio n each day. [...] patch 7-22 Remove l 11:00: patch 12 [place] 00 hours after applicatio n each day. remove No Notes: [facility] patch 7-22 Remove l 11:00: patch 12 [facility] 00 hours after applicatio n each day. remove No Notes: [facility] patch 7-22 Remove l 11:00: patch 12 [place] 00 hours after applicatio n each day. Prograf No Notes: [facility] 7-22 (Same As: l 01:00: Prograf) [place] 00 Prograf No Notes: [facility]oria 7-22 (Same As: l 01:00: Prograf) Sae 00 Prograf No Notes: [facility] 7-22 (Same As: l 01:00: Prograf) Sae 00 Prograf No Notes: [facility] 7-22 (Same As: l 01:00: Prograf) Sae 00 Prograf No Notes: [facility] 7-22 (Same As: l 01:00: Prograf) Sae 00 Prograf No Notes: [facility] 7-22 (Same As: l 01:00: Prograf) [place] 00 Prograf No Notes: [facility] 7-22 (Same As: l 01:00: Prograf) [place] 00 Prograf No Notes: [facility] 7-22 (Same As: l 01:00: Prograf) [place] 00 Prograf No Notes: [facility] 7-22 (Same As: l 01:00: Prograf) [place] 00 Prograf No Notes: [facility] 7-22 (Same As: l 01:00: Prograf) [facility] 00 Prograf No Notes: [facility] 7-22 (Same As: l 01:00: Prograf) Lidocaine No 1 patch, Shine sarah 0.05 MG/MG 7-21 Route: l Transdermal 23:00: TOP, Q24H, [place] Patch 00 Drug form: FILM, Start date: 04/16/18 18:00:00 CDT, Duration: 30 day, Stop date: 05/15/18 18:00:00 CDT tramadol No Notes: Not Mem oria hydrochlori 7-21 to exceed l de 50 MG 23:00: 400mg/day. Her aguirre Oral Tablet 00 (Same As: Ultram) Lidocaine No 1 patch, Shine sarah 0.05 MG/MG 7-21 Route: l Transdermal 23:00: TOP, Q24H, [place] Patch 00 Drug form: FILM, Start date: 04/16/18 18:00:00 CDT, Duration: 30 day, Stop date: 05/15/18 18:00:00 CDT tramadol No Notes: Not Mem oria hydrochlori 7-21 to exceed l de 50 MG 23:00: 400mg/day. Her aguirre Oral Tablet 00 (Same As: Ultram) Lidocaine No 1 patch, Shine sarah 0.05 MG/MG 7-21 Route: l Transdermal 23:00: TOP, Q24H, [place] Patch 00 Drug form: FILM, Start date: 04/16/18 18:00:00 CDT, Duration: 30 day, Stop date: 05/15/18 18:00:00 CDT tramadol 0 No Notes: Not Mem oria hydrochlori 7-21 to exceed l de 50 MG 23:00: 400mg/day. Her augirre Oral Tablet 00 (Same As: Ultram) Lidocaine No 1 patch, Shine sarah 0.05 MG/MG 7-21 Route: l Transdermal 23:00: TOP, Q24H, [place] Patch 00 Drug form: FILM, Start date: 04/16/18 18:00:00 CDT, Duration: 30 day, Stop date: 05/15/18 18:00:00 CDT tramadol 0 No Notes: Not Mem oria hydrochlori 7-21 [...] 7-21 Route: l Transdermal 23:00: TOP, Q24H, [place] Patch 00 Drug form: FILM, Start date: 04/16/18 18:00:00 CDT, Duration: 30 day, Stop date: 05/15/18 18:00:00 CDT tramadol 2017-0 No Notes: Not Mem oria hydrochlori 7-21 to exceed l de 50 MG 23:00: 400mg/day. Her aguirre Oral Tablet 00 (Same As: Ultram) Lidocaine No 1 patch, Shine sarah 0.05 MG/MG 7-21 Route: l Transdermal 23:00: TOP, Q24H, [place] Patch 00 Drug form: FILM, Start date: 04/16/18 18:00:00 CDT, Duration: 30 day, Stop date: 05/15/18 18:00:00 CDT tramadol No Notes: Not Mem oria hydrochlori 7-21 to exceed l de 50 MG 23:00: 400mg/day. Her aguirre Oral Tablet 00 (Same As: Ultram) Lidocaine No 1 patch, Shine sarah 0.05 MG/MG 7- Route: l Transdermal 23:00: TOP, Q24H, Sae [...] 7- Route: l Transdermal 23:00: TOP, Q24H, Sae Patch 00 Drug form: FILM, Start date: 04/16/18 18:00:00 CDT, Duration: 30 day, Stop date: 05/15/18 18:00:00 CDT tramadol 0 No Notes: Not Mem oria hydrochlori 7-21 to exceed l de 50 MG 23:00: 400mg/day. Her aguirre Oral Tablet 00 (Same As: Ultram) Lidocaine No 1 patch, Shine sarah 0.05 MG/MG 7-21 Route: l Transdermal 23:00: TOP, Q24H, [facility] Patch 00 Drug form: FILM, Start date: 04/16/18 18:00:00 CDT, Duration: 30 day, Stop date: 05/15/18 18:00:00 CDT tramadol 0 No Notes: Not Mem oria hydrochlori 7-21 to exceed l de 50 MG 23:00: 400mg/day. Her aguirre Oral Tablet 00 (Same As: Ultram) Lidocaine No 1 patch, Shine sarah 0.05 MG/MG 04-16 Route: l Transdermal 23:00: TOP, Q24H, [place] Patch 00 Drug form: FILM, Start date: 04/16/18 18:00:00 CDT, Duration: 30 day, Stop date: 05/15/18 18:00:00 CDT tramadol No Notes: Not Mem oria hydrochlori - to exceed l de 50 MG 23:00: [...] ia 7-20 (Same as: l 17:00: Monural) [facility] [place] mix w/ 90 to 120 ml (3 [...] ia 7-20 (Same as: l 17:00: Monural) [facility] 00 mix w/ 90 to 120 ml [...] 7-20 (Same as: l 17:00: Dolophine) Sae Fosfomycin No Notes: Memor ia 7-20 (Same [...] ia 7-20 (Same as: l 17:00: Monural) [facility] [place] 00 mix w/ 90 to 120 ml [...] ia 7-20 (Same as: l 17:00: Monural) [facility] 00 mix w/ 90 to 120 ml (3 to 4 ounces) of water and stir to dissolve. Do not use hot water. Take immediatel y after dissolving in water. Methadone 2017-0 No Notes: Memori a 7-20 (Same as: l 17:00: Dolophine) [facility]ae 00 Protonix 2017-0 No Notes: [facility] 7-19 Tablet l 21:30: should not [place] 00 be chewed or crushed. (Same as: Protonix) Protonix 2017-0 No Notes: [facility] 7-19 Tablet l 21:30: should not [facility] [place] 00 be chewed or crushed. (Same as: Protonix) Protonix 2017-0 No Notes: [facility] 7-19 Tablet l 21:30: should not [facility] [place] 00 be chewed or crushed. (Same as: Protonix) Protonix 2017-0 No Notes: [facility] 7-19 Tablet l 21:30: should not [facility] [place] 00 be chewed or crushed. (Same as: Protonix) Protonix 2017-0 No Notes: [facility] 7-19 Tablet l 21:30: should not [facility] 00 be chewed or crushed. (Same as: Protonix) Protonix 2017-0 No Notes: [facility] 7-19 Tablet l 21:30: should not [facility] [place] 00 be chewed or crushed. (Same as: Protonix) Protonix 0 No Notes: [facility] 7-19 Tablet l 21:30: should not [facility] [place] 00 be chewed or crushed. (Same as: Protonix) Protonix 2017-0 No Notes: [facility] 7-19 Tablet l 21:30: should not [facility] 00 be chewed or crushed. (Same as: Protonix) Protonix 2017-0 No Notes: [facility] 7-19 Tablet l 21:30: should not [facility] [place] 00 be chewed or crushed. (Same as: Protonix) Protonix 2017-0 No Notes: [facility] 7-19 Tablet l 21:30: should not [facility] [place] 00 be chewed or crushed. (Same as: Protonix) Protonix 2017-0 No Notes: [facility] 7-19 Tablet l 21:30: should not [facility] [place] 00 be chewed or crushed. (Same as: Protonix) Methadone 2017-0 No Notes: Memori a 7-19 (Same as: l 18:00: Dolophine) [facility] 00 Methadone 2017-0 No Notes: Memori a 7-19 (Same as: l 18:00: Dolophine) Methadone No Notes: Memori a 7-19 (Same as: l 18:00: Dolophine) Methadone No Notes: Memori a 7-19 (Same as: l 18:00: Dolophine) Methadone No Notes: Memori a 7-19 (Same as: l 18:00: Dolophine) Methadone No Notes: Memori a 7-19 (Same as: l 18:00: Dolophine) Methadone No Notes: Memori a 7-19 (Same as: l 18:00: Dolophine) Methadone No Notes: Mem[facility] a 7-19 (Same as: l 18:00: Dolophine) Methadone No Notes: Memori a 7-19 (Same as: l 18:00: Dolophine) Methadone No Notes: Memori a 7-19 (Same as: l 18:00: Dolophine) Methadone No Notes: Memori a 7-19 (Same [...] 7-19 (Same as: l 01:35: Mylicon) Sae 00 Simethicone No Notes: Shine sarah 7-19 (Same as: l 01:35: Mylicon) [facility] Simethicone No Notes: Shine sarah 7-19 (Same as: l 01:35: Mylicon) [facility] [place] Simethicone No Notes: Shine sarah 7-19 (Same as: l 01:35: Mylicon) [facility] Simethicone No Notes: Shine sarah 7-19 (Same as: l 01:35: Mylicon) [facility] [place] Isolyte S No Notes: Memori a PH-7.4 [...] S He rmann 00 PH7.4) Isolyte S 2018-0 No Notes: [facility] a PH-7.4 7-18 (Same [...] PO, Memoria n 7-18 Daily l 14:26: [place] 00 multivitami 2018-0 No 1 tab, PO, Memoria n 7-18 Daily l 14:26: [facility] [place] 00 multivitami 2018-0 No 1 tab, PO, Memoria n 7-18 Daily l 14:26: [facility] 00 multivitami 2018-0 No 1 tab, PO, Memoria n 7-18 Daily l 14:26: [facility] [place] 00 multivitami 2018-0 No 1 tab, PO, Memoria n 7-18 Daily l 14:26: [facility] 00 multivitami 2018-0 No 1 tab, PO, Memoria n 7-18 Daily l 14:26: [facility] 00 multivitami 2018-0 No 1 tab, PO, Memoria n 7-18 Daily l 14:26: [facility] 00 multivitami 2018-0 No 1 tab, PO, Memoria n 7-18 Daily l 14:26: [facility] 00 multivitami 2018-0 No 1 tab, PO, Memoria n 7-18 Daily l 14:26: [facility] 00 Isolyte S 2017-0 No Notes: [facility] PH-7.4 7-18 (Same [...] ion: 1.745 gm / 30 mL magnesium 0 No Notes: Memori a citrate 7-18 (Same [...] Notes: [facility] 7-17 (Same l 22:21: as:Molasse [facility] [place] 00 s) [facility] No Notes: [facility] 7-17 (Same l 22:21: as:Molasse [facility] 00 s) molasses No Notes: [facility] 7-17 (Same l 22:21: as:Molasse [facility] [place] 00 s) molasses No Notes: [facility] 7-17 (Same l 22:21: as:Molasse [facility] [place] 00 s) molasses No Notes: [facility] 7-17 (Same l 22:21: as:Molasse [facility] [place] 00 s) Flomax No Notes: [facility] 7-17 (Same As: l 22:00: Flomax) [facility]ae 00 "Do Not Crush" Flomax No Notes: [facility] 7-17 (Same As: l 22:00: Flomax) [facility] [place] 00 "Do Not Crush" Flomax No Notes: [facility] 7-17 (Same As: l 22:00: Flomax) [facility] [place] 00 "Do Not Crush" Flomax No Notes: [facility] 7-17 (Same As: l 22:00: Flomax) [facility] [place] 00 "Do Not Crush" Flomax No Notes: [facility] 7-17 (Same As: l 22:00: Flomax) [facility]ae 00 "Do Not Crush" Flomax [id number] No Notes: [facility] 7-17 (Same As: l 22:00: Flomax) [facility] 00 "Do Not Crush" Flomax 0 No Notes: [facility] 7-17 (Same As: l 22:00: Flomax) [facility] 00 "Do Not Crush" Flomax No Notes: [facility] 7-17 (Same As: l 22:00: Flomax) [facility] 00 "Do Not Crush" Flomax No Notes: [facility] 7-17 (Same As: l 22:00: Flomax) [facility] [place] 00 "Do Not Crush" Flomax No Notes: [facility] 7-17 (Same As: l 22:00: Flomax) [facility] [place] 00 "Do Not Crush" Flomax No Notes: [facility] 7-17 (Same As: l 22:00: Flomax) [facility] [place] 00 "Do Not Crush" Dulcolax No Notes: [facility] Laxative 7-17 (Same As: l 21:27: Dulcolax, Sae 00 Bisco-Lax) Dulcolax 0 No Notes: [facility] Laxative 7-17 (Same As: l 21:27: Dulcolax, [facility] [place] 00 Bisco-Lax) Dulcolax 0 No Notes: [facility] Laxative 7-17 (Same As: l 21:27: Dulcolax, [facility] [place] 00 Bisco-Lax) Dulcolax 2017-0 No Notes: [facility] Laxative 7-17 (Same As: l 21:27: Dulcolax, [facility] 00 Bisco-Lax) Dulcolax 2017-0 No Notes: [facility] Laxative 7-17 (Same As: l 21:27: Dulcolax, [facility] 00 Bisco-Lax) Dulcolax 2017-0 No Notes: [facility] Laxative 7-17 (Same As: l 21:27: Dulcolax, [facility] [place] 00 Bisco-Lax) Dulcolax 2017-0 No Notes: [facility] Laxative 7-17 (Same As: l 21:27: Dulcolax, [facility] [place] 00 Bisco-Lax) Dulcolax 0 No Notes: [facility] Laxative 7-17 (Same As: l 21:27: Dulcolax, [facility] [place] 00 Bisco-Lax) Dulcolax No Notes: [facility] Laxative 7-17 (Same As: l 21:27: Dulcolax, [facility] [place] 00 Bisco-Lax) Dulcolax No Notes: [facility] Laxative 7-17 (Same As: l 21:27: Dulcolax, [facility] 00 Bisco-Lax) Dulcolax No Notes: [facility] Laxative 7-17 (Same As: l 21:27: Dulcolax, [facility] [place] 00 Bisco-Lax) remove No Notes: [facility] patch 7-17 Remove l 19:05: patch 12 [facility] 00 hours after applicatio n each day. remove No Notes: [facility] patch 7-17 Remove l 19:05: patch 12 [facility] [place] 00 hours after applicatio n each day. remove No Notes: [facility] patch 7-17 Remove l 19:05: patch 12 [facility] 00 hours after applicatio n each day. remove No Notes: [facility] patch 7-17 Remove l 19:05: patch 12 [facility] [place] 00 hours after applicatio n each day. remove No Notes: [facility] patch 7-17 Remove l 19:05: patch 12 [facility] [place] 00 hours after applicatio n each day. remove No Notes: [facility] patch 7-17 Remove l 19:05: patch 12 [facility] [place] 00 hours after applicatio n each day. remove No Notes: [facility] patch 7-17 Remove l 19:05: patch 12 [facility] 00 hours after applicatio n each day. remove No Notes: [facility] patch 7-17 Remove l 19:05: patch 12 [facility] [place] 00 hours after applicatio n each day. remove No Notes: [facility] patch 7-17 Remove l 19:05: patch 12 [facility] 00 hours after applicatio n each day. remove No Notes: [facility] patch 7-17 Remove l 19:05: patch 12 [facility] [place] 00 hours after applicatio n each day. remove No Notes: [facility] patch 7-17 Remove l 19:05: patch 12 [facility] [place] 00 hours after applicatio n each day. Fosfomycin No Notes: Memor ia 7-17 (Same as: l 17:00: Monural) [facility] [place] 00 mix w/ 90 to 120 ml [...] ia 7-17 (Same as: l 17:00: Monural) [facility] [place] 00 mix w/ 90 to 120 ml [...] new patch" Fosfomycin No Notes: Memor ia 717 (Same as: l 17:00: Monural) Sae 00 [...] ia 7-17 (Same as: l 17:00: Monural) [place] 00 mix w/ 90 to 120 ml [...] new patch" Fosfomycin No Notes: Memor ia 717 (Same as: l 17:00: Monural) [place] 00 mix w/ 90 to 120 ml [...] ia 7-17 (Same as: l 17:00: Monural) [facility] [place] 00 mix w/ 90 to 120 ml [...] ia 7-17 (Same as: l 17:00: Monural) Sae 00 [...] ia 7 (Same as: l 17:00: Monural) [facility] [place] 00 mix w/ 90 to 120 ml [...] new patch" Fosfomycin No Notes: Memor ia 717 (Same as: l 17:00: Monural) [facility] [place] 00 mix w/ 90 to 120 ml [...] ia 7-17 (Same as: l 17:00: Monural) [facility] [place] 00 mix w/ 90 to 120 ml [...] l de 5 MG 15:29: Roxicodone Herm rkis Oral Tablet 00 ) Oxycodone No Notes: [...] 15:29: Roxicodone Herm kris Oral Tablet ) Oxycodone No Notes: Memori [...] 15:29: Roxicodone Herm kris Oral Tablet ) Oxycodone No Notes: Memori a Hydrochlori 7-17 (Same as: l de 5 MG 15:29: Roxicodone Herm kris Oral Tablet 00 ) Oxycodone No Notes: Mem[facility] a Hydrochlori 7-17 (Same as: l de 5 MG 15:29: Roxicodone Herm kris Oral Tablet 00 ) Oxycodone 2017- No Notes: Mem[facility] a Hydrochlori 7-17 (Same as: l de 5 MG 15:29: Roxicodone Herm kris Oral Tablet ) Oxycodone 2017-0 No Notes: Mem[facility] a Hydrochlori 7-17 (Same as: l de 5 MG 15:29: Roxicodone Herm kris Oral Tablet ) gabapentin 2018- No Notes: Memor ia 100 MG Oral [...] l Capsule 21:00: Neurontin) Herm kris gabapentin 2017- No Notes: Memor ia 100 MG Oral 7-16 (Same as: l Capsule 21:00: Neurontin) Herm kris gabapentin 0 No Notes: Memor ia 100 MG Oral 7-16 (Same as: l Capsule 21:00: Neurontin) Herm kris gabapentin No Notes: Memor ia 100 MG Oral 7-16 (Same as: l Capsule 21:00: Neurontin) Herm kris gabapentin 0 No Notes: Memor ia 100 MG Oral 7-16 (Same as: l Capsule 21:00: Neurontin) Herm kris gabapentin 2017- No Notes: Memor ia 100 MG Oral 7-16 (Same as: l Capsule 21:00: Neurontin) Herm kris Flomax No Notes: [facility] 7-16 (Same As: l 13:30: Flomax) [facility]ae 00 "Do Not Crush" Flomax No Notes: [facility] 7-16 (Same As: l 13:30: Flomax) [facility]ae 00 "Do Not Crush" Flomax 2018-0 No Notes: [facility] 7-16 (Same As: l 13:30: Flomax) [facility] [place] 00 "Do Not Crush" Flomax No Notes: [facility] 7-16 (Same As: l 13:30: Flomax) [facility] [place] 00 "Do Not Crush" Flomax No Notes: [facility] 7-16 (Same As: l 13:30: Flomax) [facility] [place] 00 "Do Not Crush" Flomax No Notes: [facility] 7-16 (Same As: l 13:30: Flomax) [facility] [place] 00 "Do Not Crush" Flomax No Notes: [facility] 7-16 (Same As: l 13:30: Flomax) [facility] [place] 00 "Do Not Crush" Flomax No Notes: [facility] 7-16 (Same As: l 13:30: Flomax) [facility] [place] 00 "Do Not Crush" Flomax No Notes: [facility] 7-16 (Same As: l 13:30: Flomax) [facility] [place] 00 "Do Not Crush" Flomax No Notes: [facility]oria 7-16 (Same As: l 13:30: Flomax) [facility] [place] 00 "Do Not Crush" Flomax No Notes: [facility] 7-16 (Same As: l 13:30: Flomax) Sae 00 "Do Not Crush" sennosides, No Notes: Shine sarah CUSTODIAL 7-15 (Same as: l 22:00: Senokot) Sae 00 Miralax No Notes: [facility] 7-15 Dissolve l 22:00: in 8 oz of [facility] 00 water or juice. (Same as: Miralax) sennosides, No Notes: Shine sarah CUSTODIAL 7-15 (Same as: l 22:00: Senokot) [facility] 00 Miralax No Notes: [facility] 7-15 Dissolve l 22:00: in 8 oz of [place] 00 water or juice. (Same as: Miralax) sennosides, No Notes: Shine sarah CUSTODIAL 7-15 (Same as: l 22:00: Senokot) [facility]ae 00 Miralax No Notes: [facility] 7-15 Dissolve l 22:00: in 8 oz of [place] 00 water or juice. (Same as: Miralax) sennosides, No Notes: Shine sarah CUSTODIAL 7-15 (Same as: l 22:00: Senokot) Sae Miralax No Notes: [facility] 7-15 Dissolve l 22:00: in 8 oz of [place] 00 water or juice. (Same as: Miralax) sennosides, No Notes: Shine sarah CUSTODIAL 7-15 (Same as: l 22:00: Senokot) [facility] Miralax No Notes: [facility] 7-15 Dissolve l 22:00: in 8 oz of [place] 00 water or juice. (Same as: Miralax) sennosides, No Notes: Shine sarah CUSTODIAL 7-15 (Same as: l 22:00: Senokot) [facility] Miralax No Notes: [facility] 7-15 Dissolve l 22:00: in 8 oz of [facility] 00 water or juice. (Same as: Miralax) sennosides, No Notes: Shine sarah CUSTODIAL 7-15 (Same as: l 22:00: Senokot) Sae Miralax No Notes: [facility] 7-15 Dissolve l 22:00: in 8 oz of [place] 00 water or juice. (Same as: Miralax) sennosides, No Notes: Shine sarah CUSTODIAL 7-15 (Same as: l 22:00: Senokot) Sae 00 Miralax No Notes: [facility] 7-15 Dissolve l 22:00: in 8 oz of [place] 00 water or juice. (Same as: Miralax) sennosides, No Notes: Shine sarah CUSTODIAL 7-15 (Same as: l 22:00: Senokot) [facility] [place] 00 Miralax No Notes: [facility] 7-15 Dissolve l 22:00: in 8 oz of [facility] 00 water or juice. (Same as: Miralax) sennosides, No Notes: Shine sarah CUSTODIAL 7-15 (Same as: l 22:00: Senokot) Sae 00 Miralax No Notes: [facility] 7-15 Dissolve l 22:00: in 8 oz of [place] 00 water or juice. (Same as: Miralax) sennosides, No Notes: Shine sarah CUSTODIAL 7-15 (Same as: l 22:00: Senokot) Sae [...] liposome 7-15 (Same as: l 17:00: Exparel) [facility] 00 NOT FOR IV use Postoperat tricia [...] liposome 7-15 (Same as: l 17:00: Exparel) [facility] NOT FOR IV use Postoperat tricia analgesia: [...] liposome 7-15 (Same as: l 17:00: Exparel) [facility] NOT FOR IV use Postoperat tricia analgesia: [...] liposome 7-15 (Same as: l 17:00: Exparel) [facility] 00 NOT FOR IV use Postoperat tricia [...] liposome 7-15 (Same as: l 17:00: Exparel) [facility] NOT FOR IV use Postoperat tricia analgesia: [...] Laxative 7-15 (Same As: l 16:54: Dulcolax, [facility] [place] 00 Bisco-Lax) Dulcolax No Notes: [facility] Laxative 7-15 (Same As: l 16:54: Dulcolax, [facility] 00 Bisco-Lax) Dulcolax No Notes: [facility] Laxative 7-15 (Same As: l 16:54: Dulcolax, [facility] [place] 00 Bisco-Lax) Dulcolax No Notes: [facility] Laxative 7-15 (Same As: l 16:54: Dulcolax, [facility] [place] 00 Bisco-Lax) Dulcolax No Notes: [facility] Laxative 7-15 (Same As: l 16:54: Dulcolax, [facility] [place] 00 Bisco-Lax) Dulcolax No Notes: [facility] Laxative 7-15 (Same As: l 16:54: Dulcolax, [facility] [place] 00 Bisco-Lax) Dulcolax No Notes: [facility] Laxative 7-15 (Same As: l 16:54: Dulcolax, [facility] [place] 00 Bisco-Lax) Dulcolax No Notes: [facility] Laxative 7-15 (Same As: l 16:54: Dulcolax, [facility] [place] 00 Bisco-Lax) Dulcolax No Notes: [facility] Laxative 7-15 (Same As: l 16:54: Dulcolax, [facility] [place] 00 Bisco-Lax) Alprazolam No Notes: Memor ia 0.5 MG Oral 7-15 With food l Tablet 16:37: or milk [facility] [place] [Xanax] 00 (Same as: Xanax) Alprazolam No Notes: Memor ia 0.5 MG Oral 7-15 With food l Tablet 16:37: or milk [place] [Xanax] 00 (Same as: Xanax) Alprazolam No Notes: Memor ia 0.5 MG Oral 7-15 With food l Tablet 16:37: or milk [facility] [place] [Xanax] 00 (Same as: Xanax) Alprazolam No Notes: Memor ia 0.5 MG Oral 7-15 With food l Tablet 16:37: or milk Sae [Xanax] 00 (Same as: Xanax) Alprazolam No Notes: Memor ia 0.5 MG Oral 7-15 With food l Tablet 16:37: or milk [facility] [place] [Xanax] 00 (Same as: Xanax) Alprazolam No Notes: Memor ia 0.5 MG Oral 7-15 With food l Tablet 16:37: or milk [facility] [Xanax] 00 (Same as: Xanax) Alprazolam No Notes: Memor ia 0.5 MG Oral 7-15 With food l Tablet 16:37: or milk [facility] [place] [Xanax] 00 (Same as: Xanax) Alprazolam No Notes: Memor ia 0.5 MG Oral 7-15 With food l Tablet 16:37: or milk [facility] [place] [Xanax] 00 (Same as: Xanax) Alprazolam No Notes: Memor ia 0.5 MG Oral 7-15 With food l Tablet 16:37: or milk [facility] [place] [Xanax] 00 (Same as: Xanax) Alprazolam No [...] not crush l Coated 14:00: or chew. [facility] [place] Tablet 00 (Same As: Ecotrin) sennosides, No Notes: Shine sarah CUSTODIAL 7-15 (Same as: l 14:00: Senokot) [facility] [place] 00 Miralax No Notes: [facility]oria 7-15 Dissolve l 14:00: in 8 oz of [place] 00 water or juice. (Same as: Miralax) Imdur No Notes: [facility]oria 7-15 (Same l 14:00: as:Imdur) [facility]ae 00 "Do Not Crush" Take on empty stomach/ full glass of water. Do not crush torsemide No Notes: Memori a 7-15 (Same As: l 14:00: Demadex) [facility] 00 Aspirin 81 No Notes: Do Me moria MG Enteric 7-15 not crush l Coated 14:00: or chew. [facility] [place] Tablet 00 (Same As: Ecotrin) sennosides, No Notes: Shine sarah CUSTODIAL 7-15 (Same as: l 14:00: Senokot) [facility] [place] 00 Miralax No Notes: [facility] 7-15 Dissolve [...] As: Ecotrin) sennosides, No Notes: Shine sarah CUSTODIAL 7-15 (Same as: l 14:00: Senokot) [facility] [place] 00 Miralax No Notes: [facility] 7-15 Dissolve [...] As: Ecotrin) sennosides, No Notes: Shine sarah CUSTODIAL 7-15 (Same as: l 14:00: Senokot) [facility] 00 Miralax No Notes: [facility] 7-15 Dissolve l 14:00: in 8 oz of [place] 00 water or juice. (Same as: Miralax) Imdur No Notes: [facility] 7-15 (Same l 14:00: as:Imdur) [facility] 00 "Do Not Crush" Take on empty stomach/ full glass of water. Do not crush torsemide No Notes: Memori a 7-15 (Same As: l 14:00: Demadex) [facility] [place] Aspirin 81 No Notes: Do Me moria MG Enteric 7-15 not crush l Coated 14:00: or chew. [facility] [place] Tablet 00 (Same As: Ecotrin) sennosides, No Notes: Shine sarah CUSTODIAL 7-15 (Same as: l 14:00: Senokot) Sae Miralax No Notes: [facility] 7-15 Dissolve l 14:00: in 8 oz of [facility] 00 water or juice. (Same as: Miralax) Imdur No Notes: [facility] 7-15 (Same l 14:00: as:Imdur) [facility] [place] "Do Not Crush" Take on empty stomach/ full glass of water. Do not crush torsemide No Notes: Memori a 7-15 (Same As: l 14:00: Demadex) [facility] [place] Aspirin 81 No Notes: Do Me moria MG Enteric 7-15 not crush l Coated 14:00: or chew. [facility] Tablet 00 (Same As: Ecotrin) sennosides, No Notes: Shine sarah CUSTODIAL 7-15 (Same as: l 14:00: Senokot) [facility] [place] 00 Miralax No Notes: [facility] 7-15 Dissolve l 14:00: in 8 oz of [place] 00 water or juice. (Same as: Miralax) Imdur No Notes: [facility] 7-15 (Same l 14:00: as:Imdur) [facility] 00 "Do Not Crush" Take on empty stomach/ full glass of water. Do not crush torsemide No Notes: Memori a 7-15 (Same As: l 14:00: Demadex) [facility] 00 Aspirin 81 No Notes: Do Me moria MG Enteric 7-15 not crush l Coated 14:00: or chew. [facility] [place] Tablet 00 (Same As: Ecotrin) sennosides, No Notes: Shine sarah CUSTODIAL 7-15 (Same as: l 14:00: Senokot) [facility] 00 Miralax No Notes: [facility] 7-15 Dissolve l 14:00: in 8 oz of [facility] [place] 00 water or juice. (Same as: Miralax) Imdur No Notes: [facility] 7-15 (Same l 14:00: as:Imdur) [facility] [place] 00 "Do Not Crush" Take on empty stomach/ full glass of water. Do not crush torsemide No Notes: Memori a 7-15 (Same As: l 14:00: Demadex) [facility] 00 Aspirin 81 No Notes: Do Me moria MG Enteric 7-15 not crush l Coated 14:00: or chew. [facility] [place] Tablet 00 (Same As: Ecotrin) sennosides, No Notes: Shine sarah CUSTODIAL 7-15 (Same as: l 14:00: Senokot) [facility] 00 Miralax No Notes: [facility] 7-15 Dissolve l 14:00: in 8 oz of [facility] [place] 00 water or juice. (Same as: Miralax) Imdur No Notes: [facility] 7-15 (Same l 14:00: as:Imdur) [facility] "Do Not Crush" Take on empty stomach/ full glass of water. Do not crush torsemide No Notes: Memori a 7-15 (Same As: l 14:00: Demadex) [facility] [place] 00 Aspirin 81 No Notes: Do Me moria MG Enteric 7-15 not crush l Coated 14:00: or chew. [facility] [place] Tablet 00 (Same As: Ecotrin) sennosides, No Notes: Shine sarah CUSTODIAL 7-15 (Same as: l 14:00: Senokot) [facility] 00 Miralax No Notes: [facility] 7-15 Dissolve l 14:00: in 8 oz of [facility] 00 water or juice. (Same as: Miralax) Imdur No Notes: [facility] 7-15 (Same l 14:00: as:Imdur) [facility] [place] 00 "Do Not Crush" Take on empty stomach/ full glass of water. Do not crush torsemide No Notes: Memori a 7-15 (Same As: l 14:00: Demadex) [facility] 00 Aspirin 81 No Notes: Do Me moria MG Enteric 7-15 not crush l Coated 14:00: or chew. [facility] Tablet 00 (Same As: Ecotrin) sennosides, No Notes: Shine sarah CUSTODIAL 7-15 (Same as: l 14:00: Senokot) [facility] 00 Miralax No Notes: [facility] 7-15 Dissolve l 14:00: in 8 oz of [facility] [place] 00 water or juice. (Same as: Miralax) Imdur No Notes: [facility] 7-15 (Same l 14:00: as:Imdur) [facility] "Do Not Crush" Take on empty stomach/ full glass of water. Do not crush torsemide No Notes: Memori a 7-15 (Same As: l 14:00: Demadex) Sae Aspirin 81 No Notes: Do Me moria MG Enteric 7-15 not crush l Coated 14:00: or chew. [facility] Tablet 00 (Same As: Ecotrin) sennosides, No Notes: Shine sarah CUSTODIAL 7-15 (Same as: l 14:00: Senokot) [facility] 00 Miralax No Notes: [facility] 7-15 Dissolve l 14:00: in 8 oz of [facility] 00 water or juice. (Same as: Miralax) Imdur No Notes: [facility] 7-15 (Same l 14:00: as:Imdur) [facility] 00 "Do Not Crush" Take on empty stomach/ full glass of water. Do not crush torsemide No Notes: Memori a 7-15 (Same As: l 14:00: Demadex) [facility] Alprazolam No Notes: Memor ia 0.5 MG Oral 7-15 With food l Tablet 03:31: or milk [facility] [Xanax] 00 (Same as: Xanax) Alprazolam No Notes: Memor ia 0.5 MG Oral 7-15 With food l Tablet 03:31: or milk [facility] [Xanax] 00 (Same as: Xanax) Alprazolam No Notes: Memor ia 0.5 MG Oral 7-15 With food l Tablet 03:31: or milk [facility] [Xanax] 00 (Same as: Xanax) Alprazolam No Notes: Memor ia 0.5 MG Oral 7-15 With food l Tablet 03:31: or milk [facility] [Xanax] 00 (Same as: Xanax) Alprazolam No Notes: Memor ia 0.5 MG Oral 7-15 With food l Tablet 03:31: or milk [facility] [Xanax] 00 (Same as: Xanax) Alprazolam No Notes: Memor ia 0.5 MG Oral 7-15 With food l Tablet 03:31: or milk [facility] [Xanax] 00 (Same as: Xanax) Alprazolam No Notes: Memor ia 0.5 MG Oral 7-15 With food l Tablet 03:31: or milk [facility] [Xanax] 00 (Same as: Xanax) Alprazolam No Notes: Memor ia 0.5 MG Oral 7-15 With food l Tablet 03:31: or milk [facility] [Xanax] 00 (Same as: Xanax) Alprazolam No Notes: Memor ia 0.5 MG Oral 7-15 With food l Tablet 03:31: or milk [facility] [Xanax] 00 (Same as: Xanax) Alprazolam No Notes: Memor ia 0.5 MG Oral 7-15 With food l Tablet 03:31: or milk [facility] [Xanax] 00 (Same as: Xanax) Alprazolam No Notes: Memor ia 0.5 MG Oral 7-15 With food l Tablet 03:31: or milk [facility] [Xanax] 00 (Same as: Xanax) Pravastatin No Notes: Shine sarah 7-15 (Same as: l 02:00: Pravachol) [facility] 00 Pravastatin No Notes: Shine sarah 7-15 (Same as: l 02:00: Pravachol) [facility] Pravastatin No Notes: Shine sarah 7-15 (Same as: l 02:00: Pravachol) [facility] 00 Pravastatin No Notes: Shine sarah 7-15 (Same [...] DS tablet l MG / 22:28: = [facility] Trimethopri 00 trimethopr m 160 MG im 160mg + Oral Tablet sulfametho [Bactrim] xazole 800 mg Dose based on trimethopr im component On empty stomach with a glass of water. (Same As: Bactrim DS, Septra DS) Sulfamethox No Notes: One [facility] azole 800 7-14 DS tablet l MG / 22:28: = [facility] Trimethopri 00 trimethopr m 160 MG im 160mg + Oral Tablet sulfametho [Bactrim] xazole 800 mg Dose based on trimethopr im component On empty stomach with a glass of water. (Same As: Bactrim DS, Septra DS) Sulfamethox No Notes: [facility] azole 800 7-14 DS tablet l MG / 22:28: = [facility] Trimethopri 00 trimethopr m 160 MG im 160mg + Oral Tablet sulfametho [Bactrim] xazole 800 mg Dose based on trimethopr im component On empty stomach with a glass of water. (Same As: Bactrim DS, Septra DS) Sulfamethox No Notes: [facility] azole 800 7-14 DS tablet l MG / 22:28: = [facility] Trimethopri 00 trimethopr m 160 MG im 160mg + Oral Tablet sulfametho [Bactrim] xazole 800 mg Dose based on trimethopr im component On empty stomach with a glass of water. (Same As: Bactrim DS, Septra DS) Sulfamethox No Notes: [facility] azole 800 7-14 DS tablet l MG / 22:28: = [facility] Trimethopri 00 trimethopr m 160 MG im 160mg + Oral Tablet sulfametho [Bactrim] xazole 800 mg Dose based on trimethopr im component On empty stomach with a glass of water. (Same As: Bactrim DS, Septra DS) Sulfamethox No Notes: One [facility] azole 800 7-14 DS tablet l MG / 22:28: = [facility] Trimethopri 00 trimethopr m 160 MG im [...] DS tablet l MG / 22:28: = [facility] Trimethopri 00 trimethopr m 160 MG im [...] (Same as: l MG Oral 22:00: Colace) [facility] Capsule 00 (Do Not [Colace] Crush) Docusate No Notes: [facility] Sodium 100 7-14 (Same as: l MG Oral 22:00: Colace) [facility] Capsule 00 (Do Not [Colace] Crush) Docusate No Notes: [facility] Sodium 100 7-14 (Same as: l MG Oral 22:00: Colace) [facility] Capsule 00 (Do Not [Colace] Crush) Docusate No Notes: [facility] Sodium 100 7-14 (Same as: l MG Oral 22:00: Colace) [facility] Capsule 00 (Do Not [Colace] Crush) Docusate [...] (Same as: l MG Oral 22:00: Colace) [facility] Capsule 00 (Do Not [Colace] Crush) Docusate No Notes: [facility] Sodium 100 7-14 (Same as: l MG Oral 22:00: Colace) [facility] Capsule 00 (Do Not [Colace] Crush) Oxycodone [...] MG 21:00: Roxicodone Herm kris Oral Tablet ) Oxycodone No Notes: Mem[facility] a Hydrochlori 7-14 (Same as: l de 5 MG 21:00: Roxicodone Herm kris Oral Tablet ) Oxycodone No Notes: [facility] a Hydrochlori 7-14 (Same as: l de 5 MG 21:00: Roxicodone Herm kris Oral Tablet ) Lasix No Notes: [facility] 7-14 (Same as: l 17:05: Lasix) [facility] Lasix No Notes: [facility] 7-14 (Same as: l 17:05: Lasix) [facility] Lasix No Notes: [facility] 7-14 (Same as: l 17:05: Lasix) [facility] 00 Lasix No Notes: [facility] 7-14 (Same as: l 17:05: Lasix) [facility] Lasix No Notes: [facility] 7-14 (Same as: l 17:05: Lasix) [facility] Lasix No Notes: [facility] 7-14 (Same as: l 17:05: Lasix) [facility] Lasix No Notes: [facility] 7-14 (Same as: l 17:05: Lasix) [facility] Lasix No Notes: [facility] 7-14 (Same as: l 17:05: Lasix) [facility] Lasix No Notes: [facility] 7-14 (Same as: l 17:05: Lasix) [facility] Lasix No Notes: [facility] 7-14 (Same as: l 17:05: Lasix) [facility] Lasix No Notes: [facility] 7-14 (Same as: l 17:05: Lasix) [facility] Oxycodone No Notes: [facility] a Hydrochlori 7-14 (Same as: l de 5 MG 17:02: Roxicodone Herm kris Oral Tablet ) Oxycodone No Notes: [facility] a Hydrochlori 7-14 (Same as: l de 5 MG 17:02: Roxicodone Herm kris Oral Tablet ) Oxycodone No Notes: [facility] a Hydrochlori 7-14 (Same as: l de 5 MG 17:02: Roxicodone Herm kris Oral Tablet 00 ) Oxycodone 0 No Notes: [facility] a Hydrochlori 7-14 (Same as: l de 5 MG 17:02: Roxicodone Herm kris Oral Tablet 00 ) Oxycodone No Notes: [facility] a Hydrochlori 7-14 (Same as: l de 5 MG 17:02: Roxicodone Herm kris Oral Tablet ) Oxycodone No Notes: [facility] a Hydrochlori 7-14 (Same as: l de 5 MG 17:02: Roxicodone Herm kris Oral Tablet ) Oxycodone No Notes: [facility] a Hydrochlori 7-14 (Same as: l de 5 MG 17:02: Roxicodone Herm kris Oral Tablet ) Oxycodone No Notes: [facility] a Hydrochlori 7-14 (Same as: l de 5 MG 17:02: Roxicodone Herm kris Oral Tablet ) Oxycodone No Notes: [facility] a Hydrochlori 7-14 (Same as: l de 5 MG 17:02: Roxicodone Herm kris Oral Tablet ) Oxycodone 0 No Notes: [facility] a Hydrochlori 7-14 (Same as: l de 5 MG 17:02: Roxicodone Herm kris Oral Tablet 00 ) Oxycodone No Notes: [facility] a Hydrochlori 7-14 (Same as: l de 5 MG 17:02: Roxicodone Herm kris Oral Tablet ) torsemide 0 No 20 mg, [facility] a 7-14 Route: l 17:00: IVPB, [facility] 00 ONCE, Dosing Weight 87.273, kg, Priority: NOW, Start date: 04/09/18 12:00:00 CDT, Stop date: 04/09/18 12:00:00 CDT torsemide 0 No 20 mg, [facility] a 7-14 Route: l 17:00: IVPB, [facility] 00 ONCE, Dosing Weight 87.273, kg, Priority: NOW, Start date: 04/09/18 12:00:00 CDT, Stop date: 04/09/18 12:00:00 CDT torsemide 2018-0 No 20 mg, [facility] a 7-14 Route: l 17:00: IVPB, [facility] 00 ONCE, Dosing Weight 87.273, kg, Priority: NOW, Start date: 04/09/18 12:00:00 CDT, Stop date: 04/09/18 12:00:00 CDT torsemide 2018-0 No 20 mg, [facility] a 7-14 Route: l 17:00: IVPB, [facility] 00 ONCE, Dosing Weight 87.273, kg, Priority: NOW, Start date: 04/09/18 12:00:00 CDT, Stop date: 04/09/18 12:00:00 CDT torsemide 2018-0 No 20 mg, Mem[facility] a 7-14 Route: l 17:00: IVPB, [facility] 00 ONCE, Dosing Weight 87.273, kg, Priority: NOW, Start date: 04/09/18 12:00:00 CDT, Stop date: 04/09/18 12:00:00 CDT torsemide 2018-0 No 20 mg, Mem[facility] a 7-14 Route: l 17:00: IVPB, [facility] 00 ONCE, Dosing Weight 87.273, kg, Priority: NOW, Start date: 04/09/18 12:00:00 CDT, Stop date: 04/09/18 12:00:00 CDT torsemide 2018-0 No 20 mg, [facility] a 7-14 Route: l 17:00: IVPB, [facility] 00 ONCE, Dosing Weight 87.273, kg, Priority: NOW, Start date: 04/09/18 12:00:00 CDT, Stop date: 04/09/18 12:00:00 CDT torsemide 2018-0 No 20 mg, [facility] a 7-14 Route: l 17:00: IVPB, [facility] 00 ONCE, Dosing Weight 87.273, kg, Priority: NOW, Start date: 04/09/18 12:00:00 CDT, Stop date: 04/09/18 12:00:00 CDT torsemide 2018-0 No 20 mg, [facility] a 7-14 Route: l 17:00: IVPB, [facility] 00 ONCE, Dosing Weight 87.273, kg, Priority: NOW, Start date: 04/09/18 12:00:00 CDT, Stop date: 04/09/18 12:00:00 CDT torsemide 2018-0 No 20 mg, [facility] a 7-14 Route: l 17:00: IVPB, [facility] 00 ONCE, Dosing Weight 87.273, kg, Priority: NOW, Start date: 04/09/18 12:00:00 CDT, Stop date: 04/09/18 12:00:00 CDT torsemide 2018-0 No 20 mg, [facility] a 7-14 Route: l 17:00: IVPB, [facility] 00 ONCE, Dosing Weight 87.273, kg, Priority: NOW, Start date: 04/09/18 12:00:00 CDT, Stop date: 04/09/18 12:00:00 CDT Dulcolax 0 No Notes: [facility] Laxative 7-14 (Same As: l 15:36: Dulcolax, [facility] 00 Bisco-Lax) Dulcolax 0 No Notes: [facility] Laxative 7-14 (Same As: l 15:36: Dulcolax, [facility] 00 Bisco-Lax) Dulcolax 0 No Notes: [facility] Laxative 7-14 (Same As: l 15:36: Dulcolax, [facility] 00 Bisco-Lax) Dulcolax 0 No Notes: [facility] [...] l 15:36: Dulcolax, [facility]ae 00 Bisco-Lax) Dulcolax 2017-0 No Notes: [facility] Laxative 7-14 (Same As: l 15:36: Dulcolax, [facility] 00 Bisco-Lax) Dulcolax 0 No Notes: [facility] Laxative 7-14 (Same As: l 15:36: Dulcolax, [facility] 00 Bisco-Lax) Labetalol 0 No Notes: Mem[facility] a 7-14 With food. l 15:29: (Same Sae 00 as:Trandat e, Normodyne) Labetalol 0 No Notes: [facility] a 7-14 With food. l 15:29: (Same [facility] 00 as:Trandat e, Normodyne) Labetalol 0 No Notes: [facility] a 7-14 With food. l 15:29: (Same [facility] 00 as:Trandat e, Normodyne) Labetalol 0 No Notes: [facility] a 7-14 With food. l 15:29: (Same [facility] 00 as:Trandat e, Normodyne) Labetalol 0 No Notes: [facility] a 7-14 With food. l 15:29: (Same [facility] 00 as:Trandat e, Normodyne) Labetalol 0 No Notes: [facility] a 7-14 With food. l 15:29: (Same [facility] 00 as:Trandat e, Normodyne) Labetalol 0 No Notes: [facility] a 7-14 With food. l 15:29: (Same [facility] 00 as:Trandat e, Normodyne) Labetalol 0 No Notes: [facility] a 7-14 With food. l 15:29: (Same [facility] 00 as:Trandat e, Normodyne) Labetalol 0 No Notes: [facility] a 7-14 With food. l 15:29: (Same [facility] 00 as:Trandat e, Normodyne) Labetalol 0 No Notes: [facility] a 7-14 With food. l 15:29: (Same [facility] 00 as:Trandat e, Normodyne) Labetalol 0 No Notes: [facility] a 7-14 With food. l 15:29: (Same as:Trandat e, Normodyne) Insulin 2017-0 No 60 units) Sh[facility] sar[facility] regular 7-14 WASTE: F/P l 15:22: - Black; E - [facility] Stable for 28 days at room temperatur e Expires in days from ____Date Glucagon 2017-0 No 1 mg, [facility] 714 Route: IM, l 15:22: Drug form: Sae [...] 2018-0 No 60 units) Shine sarah regular -14 WASTE: F/P l 15:22: - Black; E - [facility] Stable for 28 days at room temperatur e Expires in days from ____Date Glucagon 2017-0 No 1 mg, [facility] 714 Route: IM, l 15:22: Drug form: PDR/INJ, [...] F/P l 15:22: - Black; E - [facility] Trash Bin Stable for 28 days at room temperatur e Expires in days from ____Date Glucagon 2018-0 No 1 mg, [facility] 7-14 Route: IM, l 15:22: Drug form: [facility] 00 PDR/INJ, PRN, Dosing Weight 87.273, kg, [...] F/P l 15:22: - Black; E - [facility] Trash Bin Stable for 28 days at room temperatur e Expires in days from ____Date Glucagon 2018-0 No 1 mg, [facility] 7-14 Route: IM, l 15:22: Drug form: [facility] 00 PDR/INJ, PRN, Dosing Weight 87.273, kg, [...] F/P l 15:22: - Black; E - [facility] Trash Bin Stable for 28 days at [...] F/P l 15:22: - Black; E - [facility] Trash Bin Stable for 28 days at room temperatur e Expires in days from ____Date Glucagon 2018-0 No 1 mg, [facility] 7-14 Route: IM, l 15:22: Drug form: [facility] PDR/INJ, PRN, Dosing Weight 87.273, kg, PRN [...] WASTE: F/P l 15:22: - Black; E [facility] Trash Bin Stable for 28 days at room temperatur e Expires in days from ____Date Glucagon 2018-0 No 1 mg, [facility] 7-14 Route: IM, l 15:22: Drug form: [facility] 00 PDR/INJ, PRN, Dosing Weight 87.273, kg, [...] WASTE: F/P l 15:22: - Black; E [facility] 00 - [facility] Trash Bin Stable for 28 days at room temperatur e Expires in days from ____Date Glucagon 2018-0 No 1 mg, [facility] 7-14 Route: IM, l 15:22: Drug form: [facility] 00 PDR/INJ, PRN, Dosing Weight 87.273, kg, [...] Herm kris Oral Tablet 00 ) Oxycodone 0 No Notes: [facility] a Hydrochlori 7-14 (Same as: l de 5 MG 14:31: Roxicodone Herm kris Oral Tablet 00 ) Oxycodone 0 No Notes: [facility] a Hydrochlori 7-14 (Same as: l de 5 MG 14:31: Roxicodone Herm kris Oral Tablet 00 ) Oxycodone 0 No Notes: [facility] a Hydrochlori 7-14 (Same as: l de 5 MG 14:31: Roxicodone Herm kris Oral Tablet 00 ) Oxycodone 2017-0 No Notes: [facility] Hydrochlori 7-14 (Same as: l de 5 MG 14:31: Roxicodone Herm kris Oral Tablet 00 ) Oxycodone 0 No Notes: [facility] a Hydrochlori 7-14 (Same as: l de 5 MG 14:31: Roxicodone Herm kris Oral Tablet 00 ) Oxycodone 2018-0 No Notes: [facility] Hydrochlori 7-14 (Same as: l de 5 MG 14:31: Roxicodone Herm kris Oral Tablet 00 ) Oxycodone 2018-0 No Notes: [facility] Hydrochlori 7-14 (Same as: l de 5 MG 14:31: Roxicodone Herm kris Oral Tablet 00 ) Oxycodone 2018-0 No Notes: [facility] Hydrochlori 7-14 (Same as: l de 5 MG 14:31: Roxicodone Herm kris Oral Tablet 00 ) Oxycodone 2018-0 No Notes: [facility] Hydrochlori 7-14 (Same as: l de 5 MG 14:31: Roxicodone Herm kris Oral Tablet 00 ) Oxycodone 2018-0 No Notes: [facility] Hydrochlori 7-14 (Same as: l de 5 MG 14:31: Roxicodone Herm kris Oral Tablet 00 ) gabapentin 2018-0 No [...] CDT, Stop date: 04/09/18 8:42:00 CDT Robaxin 0 No Notes: [facility] 7-14 (Same l 13:00: as:Robaxin [facility] 00 ) Robaxin 0 No Notes: [facility] 7-14 (Same l 13:00: as:Robaxin [facility] 00 ) Robaxin 0 No Notes: [facility] 7-14 (Same l 13:00: as:Robaxin Sae 00 ) Robaxin 0 No Notes: [facility] 7-14 (Same l 13:00: as:Robaxin [facility] 00 ) Robaxin 0 No Notes: [facility] 7-14 (Same l 13:00: as:Robaxin [facility] 00 ) Robaxin 0 No Notes: [facility] 7-14 (Same l 13:00: as:Robaxin Sae 00 ) Robaxin No Notes: [facility] 7-14 (Same l 13:00: as:Robaxin [facility] 00 ) Robaxin 0 No Notes: [facility] 7-14 (Same l 13:00: as:Robaxin [facility] 00 ) Robaxin 0 No Notes: [facility] 7-14 (Same l 13:00: as:Robaxin [facility] 00 ) Robaxin 0 No Notes: [facility] 7-14 (Same l 13:00: as:Robaxin [facility] 00 ) Robaxin 0 No Notes: [facility] 7-14 (Same l 13:00: as:Robaxin [facility] 00 ) Tramadol 2017-0 No Notes: Not Mem oria 7-14 to exceed l 09:00: 400mg/day. [facility] 00 (Same As: Ultram) Tramadol 2017-0 No Notes: Not [facility] 7-14 to exceed l 09:00: 400mg/day. Sae 00 (Same As: Ultram) Tramadol 2018-0 No Notes: Not [facility] 7-14 to exceed l 09:00: 400mg/day. [facility] 00 (Same As: Ultram) Tramadol 2017-0 No Notes: Not [facility] 7-14 to exceed l 09:00: 400mg/day. [facility] 00 (Same As: Ultram) Tramadol 2017-0 No Notes: Not [facility] 7-14 to exceed l 09:00: 400mg/day. Sae 00 (Same As: Ultram) Tramadol No Notes: Not [facility] 7-14 to exceed l 09:00: 400mg/day. Sae (Same As: Ultram) Tramadol No Notes: Not [facility] 7-14 to exceed l 09:00: 400mg/day. [facility] 00 (Same As: Ultram) Tramadol No Notes: Not [facility] 7-14 to exceed l 09:00: 400mg/day. [facility] 00 (Same As: Ultram) Tramadol No Notes: Not [facility] 7-14 to exceed l 09:00: 400mg/day. [facility] (Same As: Ultram) Tramadol No Notes: Not [facility] 7-14 to exceed l 09:00: 400mg/day. [facility] 00 (Same As: Ultram) Tramadol No Notes: Not Mem [facility] 7-14 to exceed l 09:00: 400mg/day. Sae 00 (Same As: Ultram) Streptococc No Notes: Shine sarah us 7-14 Shake well l pneumoniae 03:20: prior to Her aguirre serotype 1 12 use (Same capsular as: antigen Prevnar diphtheria 13) [id number] protein conjugate vaccine / Streptococc us pneumoniae serotype 14 capsular antigen diphtheria [id number] protein conjugate vaccine / Streptococc us pneumoniae serotype 18C capsular antigen d Streptococc No Notes: Shine sarah us 7-14 Shake well l pneumoniae 03:20: prior to Her aguirre serotype 1 12 use (Same capsular as: antigen Prevnar diphtheria 13) [id number] protein conjugate vaccine / Streptococc us pneumoniae serotype 14 capsular antigen diphtheria [id number] protein conjugate vaccine / Streptococc us pneumoniae serotype 18C capsular antigen d Streptococc No Notes: Shine sarah us 7-14 Shake well l pneumoniae 03:20: prior to Her aguirre serotype 1 12 use (Same capsular as: antigen Prevnar diphtheria 13) [id number] protein conjugate vaccine / Streptococc us pneumoniae serotype 14 capsular antigen diphtheria [id number] protein conjugate vaccine / Streptococc us pneumoniae serotype 18C capsular antigen d Streptococc No Notes: Shine sarah us 7-14 Shake well l pneumoniae 03:20: prior to Her aguirre serotype 1 12 use (Same capsular as: antigen Prevnar diphtheria 13) [id number] protein conjugate vaccine / Streptococc us pneumoniae serotype 14 capsular antigen diphtheria [id number] protein conjugate vaccine / Streptococc us pneumoniae serotype 18C capsular antigen d Streptococc 2017- No Notes: Shine sarah us 7-14 Shake well l pneumoniae 03:20: prior to Her aguirre serotype 1 12 use (Same capsular as: antigen Prevnar diphtheria 13) [id number] protein conjugate vaccine / Streptococc us pneumoniae serotype 14 capsular antigen diphtheria [id number] protein conjugate vaccine / Streptococc us pneumoniae serotype 18C capsular antigen d Streptococc No Notes: Shine sarah us 7-14 Shake well l pneumoniae 03:20: prior to Her aguirre serotype 1 12 use (Same capsular as: antigen Prevnar diphtheria 13) [id number] protein conjugate vaccine / Streptococc us pneumoniae serotype 14 capsular antigen diphtheria [id number] protein conjugate vaccine / Streptococc us pneumoniae serotype 18C capsular antigen d Streptococc No Notes: Shine sarah us 7-14 Shake well l pneumoniae 03:20: prior to Her aguirre serotype 1 12 use (Same capsular as: antigen Prevnar diphtheria 13) [id number] protein conjugate vaccine / Streptococc us pneumoniae serotype 14 capsular antigen diphtheria [id number] protein conjugate vaccine / Streptococc us pneumoniae serotype 18C capsular antigen d Streptococc No Notes: Shine sarah us 7-14 Shake well l pneumoniae 03:20: prior to Her aguirre serotype 1 12 use (Same capsular as: antigen Prevnar diphtheria 13) [id number] protein conjugate vaccine / Streptococc us pneumoniae serotype 14 capsular antigen diphtheria [id number] protein conjugate vaccine / Streptococc us pneumoniae serotype 18C capsular antigen d Streptococc No Notes: Shine sarah us 7-14 Shake well l pneumoniae 03:20: prior to Her aguirre serotype 1 12 use (Same capsular as: antigen Prevnar diphtheria 13) [id number] protein conjugate vaccine / Streptococc us pneumoniae serotype 14 capsular antigen diphtheria [id number] protein conjugate vaccine / Streptococc us pneumoniae serotype 18C capsular antigen d Streptococc No Notes: Shine sarah us 7-14 Shake well l pneumoniae 03:20: prior to Her aguirre serotype 1 12 use (Same capsular as: antigen Prevnar diphtheria 13) [id number] protein conjugate vaccine / Streptococc us pneumoniae serotype 14 capsular antigen diphtheria [id number] protein conjugate vaccine / Streptococc us pneumoniae serotype 18C capsular antigen d Streptococc No Notes: Shine sarah us 7-14 Shake well l pneumoniae 03:20: prior to Her aguirre serotype 1 12 use (Same capsular as: antigen Prevnar diphtheria 13) [id number] protein conjugate vaccine / Streptococc us pneumoniae serotype 14 capsular antigen diphtheria [id number] protein conjugate vaccine / Streptococc us pneumoniae serotype 18C capsular antigen d remove No Notes: [facility] patch 7-13 Remove l 21:00: patch 12 [facility]ae 00 hours after applicatio n each day. remove No Notes: [facility] patch 7-13 Remove l 21:00: patch 12 [facility] 00 hours after applicatio n each day. [...] patch 7-13 Remove l 21:00: patch 12 [facility] 00 hours after applicatio n each day. remove No Notes: [facility] patch 7-13 Remove l 21:00: patch 12 [facility] 00 hours after applicatio n each day. remove No Notes: [facility] patch 7-13 Remove l 21:00: patch 12 [facility] 00 hours after applicatio n each day. remove No Notes: [facility] patch 7-13 Remove l 21:00: patch 12 [facility] 00 hours after applicatio n each day. remove No Notes: [facility] patch 7-13 Remove l 21:00: patch 12 [facility] 00 hours after applicatio n each day. [...] n Coated 00 Refill(s) Capsule [Nexium] Esomeprazol 0 No 20 mg = 1 M emoria e 20 MG 7-13 cap, PO, l Enteric 17:54: Daily, 0 [facility] Co[facility] 00 Refill(s) Capsule [Nexium] Esomeprazol 0 No 20 mg = 1 M emoria e 20 MG 7-13 cap, PO, l Enteric 17:54: Daily, 0 [facility] Coated 00 Refill(s) Capsule [Nexium] Esomeprazol 0 No 20 mg = 1 M emoria e 20 MG 7-13 cap, PO, l Enteric 17:54: Daily, 0 [facility] Coated 00 Refill(s) Capsule [Nexium] Esomeprazol 0 No 20 mg = 1 M emoria e 20 MG 7-13 cap, PO, l Enteric 17:54: Daily, 0 [facility] Coated 00 Refill(s) Capsule [Nexium] Esomeprazol 0 No 20 mg = 1 M emoria e 20 MG 7-13 cap, PO, l Enteric 17:54: Daily, 0 [facility] Coated 00 Refill(s) Capsule [Nexium] Esomeprazol 0 No 20 mg = 1 M emoria e 20 MG 7-13 cap, PO, l Enteric 17:54: Daily, 0 [facility] Coated 00 Refill(s) Capsule [Nexium] Esomeprazol 0 No 20 mg = 1 M emoria e 20 MG 7-13 cap, PO, l Enteric 17:54: Daily, 0 [facility] Coated 00 Refill(s) Capsule [Nexium] Esomeprazol 0 No 20 mg = 1 M emoria e 20 MG 7-13 cap, PO, l Enteric 17:54: Daily, 0 [facility] Coated 00 Refill(s) Capsule [Nexium] Esomeprazol 0 No 20 mg = 1 M emoria e 20 MG 7-13 cap, PO, l Enteric 17:54: Daily, 0 [facility] Coated 00 Refill(s) Capsule [Nexium] montelukast 2018-0 No 10 mg = 1 M emoria 10 MG Oral 7-13 tab, PO, l Tablet 17:51: PRN, 0 [facility] [Singulair] 00 Refill(s) Alprazolam 2018-0 No 0.5 mg = 1 M emoria 0.5 MG Oral 7-13 tab, PO, l Tablet 17:51: Daily, 0 [facility] 00 Refill(s) Ferrousal 2018-0 No 325 mg = 1 Me moria 325 mg oral 7-13 tab, PO, l tablet 17:51: Daily, 0 Sae 00 Refill(s) montelukast 20180 No 10 mg = 1 M emoria 10 MG Oral 7-13 tab, PO, l Tablet 17:51: PRN, 0 Sae [Singulair] 00 Refill(s) Alprazolam 2017-0 No 0.5 mg = 1 M emoria 0.5 MG Oral 7-13 tab, PO, l Tablet 17:51: Daily, 0 Sae 00 Refill(s) Ferrousal 0 No 325 mg = 1 Me moria 325 mg oral 7-13 tab, PO, l tablet 17:51: Daily, 0 [facility] 00 Refill(s) montelukast 2017-0 No 10 mg = 1 M emoria 10 MG Oral 7-13 tab, PO, l Tablet 17:51: PRN, 0 Sae [Singulair] 00 Refill(s) Alprazolam 2017-0 No 0.5 mg = 1 M emoria 0.5 MG Oral 7-13 tab, PO, l Tablet 17:51: Daily, 0 [facility] 00 Refill(s) Ferrousal 2017-0 No 325 mg = 1 Me moria 325 mg oral 7-13 tab, PO, l tablet 17:51: Daily, 0 Sae 00 Refill(s) montelukast 2018-0 No 10 mg = 1 M emoria 10 MG Oral 7-13 tab, PO, l Tablet 17:51: PRN, 0 Sae [Singulair] 00 Refill(s) Alprazolam 2018-0 No 0.5 mg = 1 M emoria 0.5 MG Oral 7-13 tab, PO, l Tablet 17:51: Daily, 0 Sae 00 Refill(s) Ferrousal 2018-0 No 325 mg = 1 Me moria 325 mg oral 7-13 tab, PO, l tablet 17:51: Daily, 0 Sae 00 Refill(s) montelukast 20180 No 10 mg = 1 M emoria 10 MG Oral 7-13 tab, PO, l Tablet 17:51: PRN, 0 [facility] [Singulair] 00 Refill(s) Alprazolam 0 No 0.5 mg = 1 M emoria 0.5 MG Oral 7-13 tab, PO, l Tablet 17:51: Daily, 0 Sae 00 Refill(s) Ferrousal 0 No 325 mg = 1 Me moria 325 mg oral 7-13 tab, PO, l tablet 17:51: Daily, 0 Sae 00 Refill(s) montelukast 0 No 10 mg [...] tab, PO, l tablet 17:51: Daily, 0 [facility] 00 Refill(s) montelukast 0 No 10 mg = 1 M emoria 10 MG Oral 7-13 tab, PO, l Tablet 17:51: PRN, 0 [facility] [Singulair] 00 Refill(s) Alprazolam 0 No 0.5 mg = 1 M emoria 0.5 MG Oral 7-13 tab, PO, l Tablet 17:51: Daily, 0 Sae 00 Refill(s) Ferrousal 0 No 325 mg = 1 Me moria 325 mg oral 7-13 tab, PO, l tablet 17:51: Daily, 0 Sae 00 Refill(s) montelukast 0 No 10 mg = 1 M emoria 10 MG Oral 7-13 tab, PO, l Tablet 17:51: PRN, 0 Sae [Singulair] 00 Refill(s) Alprazolam 2017-0 No 0.5 mg = 1 M emoria 0.5 MG Oral 7-13 tab, PO, l Tablet 17:51: Daily, 0 [facility] 00 Refill(s) Ferrousal 2017-0 No 325 mg = 1 Me moria 325 mg oral 7-13 tab, PO, l tablet 17:51: Daily, 0 [facility] 00 Refill(s) montelukast 2018-0 No 10 mg [...] tab, PO, l tablet 17:51: Daily, 0 [facility] 00 Refill(s) montelukast 0 No 10 mg = 1 M emoria 10 MG Oral 7-13 tab, PO, l Tablet 17:51: PRN, 0 [facility] [Singulair] 00 Refill(s) Alprazolam 0 No 0.5 mg = 1 M emoria 0.5 MG Oral 7-13 tab, PO, l Tablet 17:51: Daily, 0 [facility] 00 Refill(s) Ferrousal 0 No 325 mg = 1 Me moria 325 mg oral 7-13 tab, PO, l tablet 17:51: Daily, 0 Sae 00 Refill(s) montelukast 0 No 10 mg = 1 M emoria 10 MG Oral 7-13 tab, PO, l Tablet 17:51: PRN, 0 [facility] [Singulair] 00 Refill(s) Alprazolam 0 No 0.5 mg = 1 M emoria 0.5 MG Oral 7-13 tab, PO, l Tablet 17:51: Daily, 0 [facility] 00 Refill(s) Ferrousal 0 No 325 mg = 1 Me moria 325 mg oral 7-13 tab, PO, l tablet 17:51: Daily, 0 Sae 00 Refill(s) tamsulosin 0 No 0.4 mg [...] tab, PO, l tablet 17:45: BID, 0 [facility] 00 Refill(s) gabapentin No 300 mg = [...] cap, PO, l Capsule 17:45: TID, 0 [facility] 00 Refill(s) Metolazone No 2.5 mg = [...] cap, PO, l Capsule 17:45: TID, 0 [facility] 00 Refill(s) Metolazone 2018-0 No 2.5 mg [...] cap, PO, l Capsule 17:45: TID, 0 [facility] 00 Refill(s) Metolazone 2018-0 No 2.5 mg [...] tab, PO, l Tablet 17:45: Daily, 0 [facility] 00 Refill(s) torsemide 0 No 20 mg [...] tab, PO, l Tablet 17:45: Daily, 0 [facility] 00 Refill(s) torsemide 2017-0 No 20 mg = 1 Mem oria 20 mg oral 7-13 tab, PO, l tablet 17:45: BID, 0 Sae 00 Refill(s) gabapentin 2017-0 No 300 mg = 1 M emoria 300 MG Oral 7-13 cap, PO, l Capsule 17:45: TID, 0 [facility] 00 Refill(s) Metolazone 20180 No 2.5 mg = 1 M emoria 2.5 MG Oral 7-13 tab, PO, l Tablet 17:45: Daily, 0 Sae 00 Refill(s) torsemide 0 No 20 mg = 1 Mem o[facility] 20 mg oral 7-13 tab, PO, l tablet 17:45: BID, 0 [facility] 00 Refill(s) gabapentin 0 No 300 mg = 1 M emoria 300 MG Oral 7-13 cap, PO, l Capsule 17:45: TID, 0 [facility] 00 Refill(s) Metolazone No 2.5 mg = [...] tab, PO, l Tablet 17:45: Daily, 0 [facility] 00 Refill(s) torsemide No 20 mg = 1 Mem oria 20 mg oral 7-13 tab, PO, l tablet 17:45: BID, 0 [facility] 00 Refill(s) gabapentin 0 No 300 mg = 1 M emoria 300 MG Oral 7-13 cap, PO, l Capsule 17:45: TID, 0 [facility] 00 Refill(s) Metolazone 0 No 2.5 mg = 1 M emoria 2.5 MG Oral 7-13 tab, PO, l Tablet 17:45: Daily, 0 Sae 00 Refill(s) amLODIPine No 5 mg = 1 Mem oria 5 mg oral 7-13 tab, PO, l tablet 17:44: Daily, 0 [facility] 00 Refill(s) labetalol No 100 mg = 1 Me moria 100 mg oral 7-13 tab, PO, l tablet 17:44: BID, 0 [facility] 00 Refill(s) amLODIPine 2018-0 No 5 mg = 1 Mem oria 5 mg oral 7-13 tab, PO, l tablet 17:44: Daily, 0 [facility] 00 Refill(s) labetalol 2018-0 No 100 mg = 1 [facility] 100 mg oral 7-13 tab, PO, l tablet 17:44: BID, 0 [facility] [place] 00 Refill(s) amLODIPine 2018-0 No 5 mg [...] tab, PO, l tablet 17:44: Daily, 0 [place] 00 Refill(s) labetalol 2017-0 No 100 mg = 1 [facility] 100 mg oral 7-13 tab, PO, l tablet 17:44: BID, 0 [facility] 00 Refill(s) amLODIPine 2018-0 No 5 mg = 1 [facility] 5 mg oral 7-13 tab, PO, l tablet 17:44: Daily, 0 [facility] [place] 00 Refill(s) labetalol 2018-0 No 100 mg = 1 [facility] 100 mg oral 7-13 tab, PO, l tablet 17:44: BID, 0 [facility] 00 Refill(s) amLODIPine 2018-0 No 5 mg = 1 [facility] 5 mg oral 7-13 tab, PO, l tablet 17:44: Daily, 0 [facility] [place] 00 Refill(s) labetalol 2018-0 No 100 mg = 1 [facility] 100 mg oral 7-13 tab, PO, l tablet 17:44: BID, 0 [facility] [place] 00 Refill(s) amLODIPine 2018-0 No 5 mg = 1 [facility] 5 mg oral 7-13 tab, PO, l tablet 17:44: Daily, 0 [facility] 00 Refill(s) labetalol 2018-0 No 100 mg = 1 [facility] mor[facility] 100 mg oral 7-13 tab, PO, l tablet 17:44: BID, 0 [facility] 00 Refill(s) amLODIPine 2018-0 No 5 mg = 1 [facility] 5 mg oral 7-13 tab, PO, l tablet 17:44: Daily, 0 [facility] 00 Refill(s) labetalol 2018-0 No 100 mg = 1 [facility] 100 mg oral 7-13 tab, PO, l tablet 17:44: BID, 0 [facility] 00 Refill(s) amLODIPine 2018-0 No 5 mg [...] tab, PO, l tablet 17:44: Daily, 0 [facility] 00 Refill(s) labetalol 2018-0 No 100 mg = 1 Me mor[facility] 100 mg oral 7-13 tab, PO, l tablet 17:44: BID, 0 [facility] 00 Refill(s) amLODIPine 2018-0 No 5 mg = 1 [facility] 5 mg oral 7-13 tab, PO, l tablet 17:44: Daily, 0 [facility] 00 Refill(s) labetalol 2017-0 No 100 mg = 1 Me [facility] 100 mg oral 7-13 tab, PO, l tablet 17:44: BID, 0 [facility] 00 Refill(s) pravastatin 2018-0 No 80 mg = 1 M emoria 80 mg oral 7-13 tab, PO, l tablet 17:19: Daily, 0 [facility] 00 Refill(s) allopurinol 2018-0 No 100 mg = 1 [facility] 100 mg oral 7-13 tab, PO, l tablet 17:19: BID, 0 [facility] 00 Refill(s) pravastatin 2018-0 No 80 mg = 1 M emoria 80 mg oral 7-13 tab, PO, l tablet 17:19: Daily, 0 [facility] 00 Refill(s) allopurinol 2018-0 No 100 mg = 1 [facility] 100 mg oral 7-13 tab, PO, l tablet 17:19: BID, 0 [facility] 00 Refill(s) pravastatin 2018-0 No 80 mg = 1 M emoria 80 mg oral 7-13 tab, PO, l tablet 17:19: Daily, 0 [facility] 00 Refill(s) allopurinol 2017-0 No 100 mg = 1 [facility] 100 mg oral 7-13 tab, PO, l tablet 17:19: BID, 0 [facility] 00 Refill(s) pravastatin 2017-0 No 80 mg = 1 M emoria 80 mg oral 7-13 tab, PO, l tablet 17:19: Daily, 0 [facility] 00 Refill(s) allopurinol 2017-0 No 100 mg = 1 [facility] 100 mg oral 7-13 tab, PO, l tablet 17:19: BID, 0 [facility] 00 Refill(s) pravastatin 2017-0 No 80 mg = 1 M [facility]oria 80 mg oral 7-13 tab, PO, l tablet 17:19: Daily, 0 [facility] 00 Refill(s) allopurinol 2017-0 No 100 mg = 1 [facility] 100 mg oral 7-13 tab, PO, l tablet 17:19: BID, 0 [facility] 00 Refill(s) pravastatin 2017-0 No 80 mg = 1 M [facility] 80 mg oral 7-13 tab, PO, l tablet 17:19: Daily, 0 [facility] 00 Refill(s) allopurinol 2017-0 No 100 mg = 1 [facility] 100 mg oral 7-13 tab, PO, l tablet 17:19: BID, 0 [facility] 00 Refill(s) pravastatin 2017-0 No 80 mg = 1 M emoria 80 mg oral 7-13 tab, PO, l tablet 17:19: Daily, 0 [facility] 00 Refill(s) allopurinol 2017-0 No 100 mg = 1 [facility] 100 mg oral 7-13 tab, PO, l tablet 17:19: BID, 0 [facility] 00 Refill(s) pravastatin 2018-0 No 80 mg = 1 M [facility] 80 mg oral 7-13 tab, PO, l tablet 17:19: Daily, 0 [facility] 00 Refill(s) allopurinol 2017-0 No 100 mg = 1 [facility] 100 mg oral 7-13 tab, PO, l tablet 17:19: BID, 0 [facility] 00 Refill(s) pravastatin 2017-0 No 80 mg = 1 M emoria 80 mg oral 7-13 tab, PO, l tablet 17:19: Daily, 0 [facility] 00 Refill(s) allopurinol 0 No 100 mg = 1 [facility] 100 mg oral 7-13 tab, PO, l tablet 17:19: BID, 0 [facility] 00 Refill(s) pravastatin 2017-0 No 80 mg = 1 M emoria 80 mg oral 7-13 tab, PO, l tablet 17:19: Daily, 0 [facility] 00 Refill(s) allopurinol 0 No 100 mg = 1 [facility] 100 mg oral 7-13 tab, PO, l tablet 17:19: BID, 0 [facility] 00 Refill(s) pravastatin 2018-0 No 80 mg = 1 M [facility] 80 mg oral 7-13 tab, PO, l tablet 17:19: Daily, 0 [facility] 00 Refill(s) allopurinol 0 No 100 mg = 1 [facility] 100 mg oral 7-13 tab, PO, l tablet 17:19: BID, 0 [facility] 00 Refill(s) magnesium 0 No 400 mg = 1 Me [facility] oxide 400 7-13 tab, PO, l mg oral 17:18: BID, 0 [facility] tablet 00 Refill(s) magnesium 0 No 400 mg = 1 [facility] oxide 400 7-13 tab, PO, l mg oral 17:18: BID, 0 [facility] tablet 00 Refill(s) magnesium 0 No 400 mg = 1 [facility] oxide 400 7-13 tab, PO, l mg oral 17:18: BID, 0 [facility] tablet 00 Refill(s) magnesium 2017-0 No 400 mg = 1 [facility] oxide 400 7-13 tab, PO, l mg oral 17:18: BID, 0 [facility] tablet 00 Refill(s) magnesium 2017-0 No 400 mg = 1 [facility] oxide 400 7-13 tab, PO, l mg oral 17:18: BID, 0 [facility] tablet 00 Refill(s) magnesium 2018-0 No 400 mg = 1 [facility] oxide 400 7-13 tab, PO, l mg oral 17:18: BID, 0 [facility] tablet 00 Refill(s) magnesium 2017-0 No 400 mg = 1 [facility] oxide 400 7-13 tab, PO, l mg oral 17:18: BID, 0 [facility] tablet 00 Refill(s) magnesium 2017- No 400 mg = 1 [facility] oxide 400 7-13 tab, PO, l mg oral 17:18: BID, 0 [facility] tablet 00 Refill(s) magnesium 2017-0 No 400 mg = 1 [facility] oxide 400 7-13 tab, PO, l mg oral 17:18: BID, 0 [facility] tablet 00 Refill(s) magnesium 2017-0 No 400 mg = 1 [facility] oxide 400 7-13 tab, PO, l mg oral 17:18: BID, 0 [facility] tablet 00 Refill(s) magnesium 2017-0 No 400 mg = 1 [facility] oxide 400 7-13 tab, PO, l mg oral 17:18: BID, 0 [facility] tablet 00 Refill(s) Folic Acid No 1 mg = 1 [facility] 1 MG Oral 7-13 tab, PO, l Tablet 17:17: Daily, 0 [facility] 00 Refill(s) Folic Acid No 1 mg = 1 [facility] 1 MG Oral 7-13 tab, PO, l Tablet 17:17: Daily, 0 [facility] 00 Refill(s) Folic Acid No 1 mg = 1 [facility] 1 MG Oral 7-13 tab, PO, l Tablet 17:17: Daily, 0 [facility] 00 Refill(s) Folic Acid No 1 mg = 1 [facility] 1 MG Oral 7-13 tab, PO, l Tablet 17:17: Daily, 0 [facility] 00 Refill(s) Folic Acid No 1 mg = 1 [facility] 1 MG Oral 7-13 tab, PO, l Tablet 17:17: Daily, 0 [facility] 00 Refill(s) Folic Acid 2017- No 1 mg = 1 [facility] 1 MG Oral 7-13 tab, PO, l Tablet 17:17: Daily, 0 [facility] 00 Refill(s) Folic Acid 2017- No 1 mg = 1 [facility] 1 MG Oral 7-13 tab, PO, l Tablet 17:17: Daily, 0 [facility] 00 Refill(s) Folic Acid No 1 mg = 1 [facility] 1 MG Oral 7-13 tab, PO, l Tablet 17:17: Daily, 0 [facility] 00 Refill(s) Folic Acid 2018-0 No 1 mg = 1 [facility] [...] tab, PO, l Tablet 17:17: Daily, 0 [facility] 00 Refill(s) Fish Oil No 1,000 mg = [facility] 1000 mg 7-13 1 cap, PO, l oral 17:14: BID, 0 [facility] capsule 00 Refill(s) Fish Oil No 1,000 [...] cap, PO, l oral 17:14: BID, 0 [facility] capsule 00 Refill(s) Fish Oil No 1,000 [...] cap, PO, l oral 17:14: BID, 0 [facility] capsule 00 Refill(s) Fish Oil No 1,000 mg = [facility] 1000 mg 7-13 1 cap, PO, l oral 17:14: BID, 0 [facility] capsule 00 Refill(s) Fish Oil No 1,000 mg = [facility] 1000 mg 7-13 1 cap, PO, l oral 17:14: BID, 0 [facility] capsule 00 Refill(s) Fish Oil No 1,000 mg = [facility] 1000 mg 04-08 1 cap, PO, l oral 17:14: BID, 0 [facility] capsule 00 Refill(s) Fish Oil No 1,000 mg = [facility] 1000 mg 04-08 1 cap, PO, l oral 17:14: BID, 0 [facility] capsule 00 Refill(s) thiamine No 100 mg = 1 [facility] 100 mg oral 04-08 tab, PO, l tablet 17:13: Daily, 0 [facility] 00 Refill(s) multivitami 20180 No Daily, 0 [facility] moria n 04-08 Refill(s) l 17:13: [facility] 00 Calcium 0 No 1 tab, PO, Shine sarah Carbonate 04-08 BID, 0 l 1500 MG / 17:13: Refill(s) Her carla Cholecalcif 00 kang 400 UNT Oral Tablet thiamine No 100 mg = 1 [facility] 100 mg oral 04-08 tab, PO, l tablet 17:13: Daily, 0 [facility] 00 Refill(s) multivitami 0 No Daily, 0 [facility] mor[facility] n 04-08 Refill(s) l 17:13: [facility] 00 Calcium 0 No 1 tab, PO, Shine sarah Carbonate 04-08 BID, 0 l 1500 MG / 17:13: Refill(s) Her carla Cholecalcif 00 kang 400 UNT Oral Tablet thiamine No 100 mg = 1 [facility] 100 mg oral 04-08 tab, PO, l tablet 17:13: Daily, 0 [facility] 00 Refill(s) multivitami 0 No Daily, 0 [facility] mor[facility] n 04-08 Refill(s) l 17:13: [facility] 00 Calcium 0 No 1 tab, PO, Shine sarah Carbonate 04-08 BID, 0 l 1500 MG / 17:13: Refill(s) Her aguirre Cholecalcif 00 kang 400 UNT Oral Tablet thiamine No 100 mg = 1 [facility] 100 mg oral 04-08 tab, PO, l tablet 17:13: Daily, 0 [facility] 00 Refill(s) multivitami 20180 No Daily, 0 [facility] mor[facility] n 04-08 Refill(s) l 17:13: [facility] 00 Calcium 0 No 1 tab, PO, Shine sarah Carbonate 7-13 BID, 0 l 1500 MG / 17:13: Refill(s) Her carla Cholecalcif 00 kang 400 UNT Oral Tablet thiamine 20180 No 100 mg = 1 [facility] 100 mg oral 7- tab, PO, l tablet 17:13: Daily, 0 [facility] 00 Refill(s) multivitami 2018-0 No Daily, 0 [facility] mor[facility] n 713 Refill(s) l 17:13: [facility] 00 Calcium 2018-0 No 1 tab, PO, Shine sarah Carbonate 7 BID, 0 l 1500 MG / 17:13: Refill(s) Her carla Cholecalcif 00 kang 400 UNT Oral Tablet thiamine 0 No 100 mg = 1 [facility] 100 mg oral 7- tab, PO, l tablet 17:13: Daily, 0 [facility] 00 Refill(s) multivitami 2018-0 No Daily, 0 [facility] mor[facility] n 04-08 Refill(s) l 17:13: [facility] 00 Calcium 2017-0 No 1 tab, PO, Shine sarah Carbonate 04-08 BID, 0 l 1500 MG / 17:13: Refill(s) Her carla Cholecalcif 00 kang 400 UNT Oral Tablet thiamine 0 No 100 mg = 1 [facility] 100 mg oral 7- tab, PO, l tablet 17:13: Daily, 0 [facility] 00 Refill(s) multivitami 2018-0 No Daily, 0 Me moria n 04-08 Refill(s) l 17:13: [facility] 00 Calcium 2017-0 No 1 tab, PO, Shine sarah Carbonate 04-08 BID, 0 l 1500 MG / 17:13: Refill(s) Her carla Cholecalcif 00 kang 400 UNT Oral Tablet thiamine 0 No 100 mg = 1 [facility] 100 mg oral 7- tab, PO, l tablet 17:13: Daily, 0 [facility] 00 Refill(s) multivitami 2018-0 No Daily, 0 [facility] n 713 Refill(s) l 17:13: [facility] 00 Calcium 2018-0 No 1 tab, PO, Shine sarah Carbonate 7- BID, 0 l 1500 MG / 17:13: Refill(s) Her carla Cholecalcif 00 kang 400 UNT Oral Tablet thiamine 0 No 100 mg = 1 [facility] 100 mg oral 7-13 tab, PO, l tablet 17:13: Daily, 0 [facility] 00 Refill(s) multivitami 2018-0 No Daily, 0 Me moria n 7-13 Refill(s) l 17:13: [facility] 00 Calcium 2018-0 No 1 tab, PO, Shine sarah Carbonate 7-13 BID, 0 l 1500 MG / 17:13: Refill(s) Her carla Cholecalcif 00 kang 400 UNT Oral Tablet thiamine 2018-0 No 100 mg = 1 [facility] 100 mg oral 7-13 tab, PO, l tablet 17:13: Daily, 0 [facility] 00 Refill(s) multivitami 2018-0 No Daily, 0 Me mor[facility] n 7- Refill(s) l 17:13: [facility] 00 Calcium 2018-0 No 1 tab, PO, Shine sarah Carbonate - BID, 0 l 1500 MG / 17:13: Refill(s) Her carla Cholecalcif 00 kang 400 UNT Oral Tablet thiamine 0 No 100 mg = 1 [facility] 100 mg oral 7-13 tab, PO, l tablet 17:13: Daily, 0 [facility] 00 Refill(s) multivitami 2018-0 No Daily, 0 Me moria n 7-13 Refill(s) l 17:13: [facility] 00 Calcium 2018-0 No 1 tab, PO, Shine sarah Carbonate - BID, 0 l 1500 MG / 17:13: Refill(s) Her carla Cholecalcif 00 kang 400 UNT Oral Tablet Aspirin 81 2018-0 No 81 mg = 1 Me mor[facility] MG Chewable 7-13 tab, CHEW, l Tablet 17:12: Daily, 0 [facility] 00 Refill(s) Aspirin 81 2018-0 No 81 [...] tab, CHEW, l Tablet 17:12: Daily, 0 [facility] 00 Refill(s) Aspirin 81 2018-0 No 81 mg = 1 Me mor[facility] MG Chewable 7-13 tab, CHEW, l Tablet 17:12: Daily, 0 [facility] 00 Refill(s) Aspirin 81 2018-0 No 81 mg = 1 Me [facility] MG Chewable 7-13 tab, CHEW, l Tablet 17:12: Daily, 0 [facility] 00 Refill(s) Aspirin 81 2018-0 No 81 mg = 1 Me mor[facility] MG Chewable 7-13 tab, CHEW, l Tablet 17:12: Daily, 0 [facility] 00 Refill(s) Aspirin 81 2018-0 No 81 mg = 1 Me [facility] MG Chewable 7-13 tab, CHEW, l Tablet 17:12: Daily, 0 [facility] 00 Refill(s) Aspirin 81 2018-0 No 81 mg = 1 Me [facility] MG Chewable 7-13 tab, CHEW, l Tablet 17:12: Daily, 0 [facility] 00 Refill(s) Aspirin 81 2018-0 No 81 mg = 1 Me [facility] MG Chewable 7-13 tab, CHEW, l Tablet 17:12: Daily, 0 [facility] 00 Refill(s) Aspirin 81 2018-0 No 81 mg = 1 [facility] MG Chewable 7-13 tab, CHEW, l Tablet 17:12: Daily, 0 [facility] 00 Refill(s) NovoLIN 2018-0 No 24 unit, Memori a 70/30 7-13 SUB-Q, l 17:11: QPM, 0 [facility] 00 Refill(s) NovoLIN 2018-0 No 24 unit, [facility] a 70/30 7-13 SUB-Q, l 17:11: QPM, 0 [facility] 00 Refill(s) NovoLIN 2018-0 No 24 unit, [facility] a 70/30 7-13 SUB-Q, l 17:11: QPM, 0 [facility] 00 Refill(s) NovoLIN 2018-0 No 24 unit, [facility] a 70/30 7-13 SUB-Q, l 17:11: QPM, 0 [facility] 00 Refill(s) NovoLIN 2018-0 No 24 unit, [facility] a 70/30 7-13 SUB-Q, l 17:11: QPM, 0 [facility] 00 Refill(s) NovoLIN 2018-0 No 24 unit, [facility] a 70/30 7-13 SUB-Q, l 17:11: QPM, 0 [facility] 00 Refill(s) NovoLIN 2018-0 No 24 unit, [facility] a 70/30 7-13 SUB-Q, l 17:11: QPM, 0 [facility] 00 Refill(s) NovoLIN 2018-0 No 24 unit, [facility] a 70/30 7-13 SUB-Q, l 17:11: QPM, 0 [facility] 00 Refill(s) NovoLIN 2018-0 No 24 unit, [facility] a 70/30 7-13 SUB-Q, l 17:11: QPM, 0 [facility] 00 Refill(s) NovoLIN 2018-0 No 24 unit, [facility] a 70/30 7-13 SUB-Q, l 17:11: QPM, 0 [facility] 00 Refill(s) NovoLIN 2018-0 No 24 unit, [facility] a 70/30 7-13 SUB-Q, l 17:11: QPM, 0 [facility] 00 Refill(s) NovoLIN 2018-0 No 18 unit, [facility] a 70/30 7-13 SUB-Q, l 17:09: QAM, 0 [facility] 00 Refill(s) predniSONE 2018-0 No 5 mg = 1 [facility] 5 mg oral 7-13 tab, PO, l tablet 17:09: Daily, 0 [facility] 00 Refill(s) tacrolimus 2018-0 No 0.5 mg = 1 M emoria 0.5 mg oral 7-13 cap, PO, l capsule 17:09: Q12H, 0 [facility] 00 Refill(s) NovoLIN 2018-0 No 18 unit, Mem[facility] a 70/30 7-13 SUB-Q, l 17:09: QAM, 0 [facility] 00 Refill(s) predniSONE 2018-0 No 5 mg = 1 [facility] 5 mg oral 7-13 tab, PO, l tablet 17:09: Daily, 0 [facility] 00 Refill(s) tacrolimus 2018-0 No 0.5 mg = 1 M emoria 0.5 mg oral 7-13 cap, PO, l capsule 17:09: Q12H, 0 [facility] 00 Refill(s) NovoLIN 2018-0 No 18 unit, Mem[facility] a 70/30 7-13 SUB-Q, l 17:09: QAM, 0 [facility] 00 Refill(s) predniSONE 2018-0 No 5 mg = 1 [facility] 5 mg oral 7-13 tab, PO, l tablet 17:09: Daily, 0 [facility] 00 Refill(s) tacrolimus 2018-0 No 0.5 mg = 1 M emoria 0.5 mg oral 7-13 cap, PO, l capsule 17:09: Q12H, 0 [facility] 00 Refill(s) NovoLIN 2018-0 No 18 unit, [facility] a 70/30 7-13 SUB-Q, l 17:09: QAM, 0 [facility] 00 Refill(s) predniSONE 2018-0 No 5 mg = 1 [facility] 5 mg oral 7-13 tab, PO, l tablet 17:09: Daily, 0 [facility] 00 Refill(s) tacrolimus 2018-0 No 0.5 mg [...] cap, PO, l capsule 17:09: Q12H, 0 [facility] 00 Refill(s) NovoLIN 2018-0 No 18 unit, Mem[facility] a 70/30 7-13 SUB-Q, l 17:09: QAM, 0 [facility] 00 Refill(s) predniSONE 2018-0 No 5 mg = 1 [facility] 5 mg oral 7-13 tab, PO, l tablet 17:09: Daily, 0 [facility] 00 Refill(s) tacrolimus 2018-0 No 0.5 mg [...] 70/30 7-13 SUB-Q, l 17:09: QAM, 0 [facility] 00 Refill(s) predniSONE 2018-0 No 5 mg = 1 [facility] 5 mg oral 7-13 tab, PO, l tablet 17:09: Daily, 0 [facility] 00 Refill(s) tacrolimus 2018-0 No 0.5 mg = 1 M emoria 0.5 mg oral 7-13 cap, PO, l capsule 17:09: Q12H, 0 [facility] 00 Refill(s) NovoLIN 2018-0 No 18 unit, [facility] a 70/30 7-13 SUB-Q, l 17:09: QAM, 0 [facility] 00 Refill(s) predniSONE 2018-0 No 5 mg = 1 [facility] 5 mg oral 7-13 tab, PO, l tablet 17:09: Daily, 0 [facility] 00 Refill(s) tacrolimus 2018-0 No 0.5 mg = 1 M emoria 0.5 mg oral 7-13 cap, PO, l capsule 17:09: Q12H, 0 [facility] 00 Refill(s) NovoLIN 2018-0 No 18 unit, Mem[facility] a 70/30 7-13 SUB-Q, l 17:09: QAM, 0 [facility] 00 Refill(s) predniSONE 2018-0 No 5 mg = 1 [facility] 5 mg oral 7-13 tab, PO, l tablet 17:09: Daily, 0 [facility] 00 Refill(s) tacrolimus 2018-0 No 0.5 mg = 1 M emoria 0.5 mg oral 7-13 cap, PO, l capsule 17:09: Q12H, 0 [facility] 00 Refill(s) NovoLIN 2018-0 No 18 unit, Mem[facility] a 70/30 7-13 SUB-Q, l 17:09: QAM, 0 [facility] 00 Refill(s) predniSONE 2018-0 No 5 mg = 1 [facility] 5 mg oral 7-13 tab, PO, l tablet 17:09: Daily, 0 Refill(s) tacrolimus No 0.5 mg = 1 M [facility] 0.5 mg oral 7-13 cap, PO, l capsule 17:09: Q12H, 0 Refill(s) Prednisone No Notes: [facility] 7-13 Take with l 14:00: food. Prednisone No Notes: [facility] 7-13 Take with l 14:00: food. Prednisone No Notes: [facility] 7-13 Take with l 14:00: food. Prednisone No Notes: [facility] 7-13 Take with l 14:00: food. Prednisone No Notes: [facility] 7-13 Take with l 14:00: food. Prednisone No Notes: [facility] 7-13 Take with l 14:00: food. Prednisone No Notes: [facility] 7-13 Take with l 14:00: food. Prednisone No Notes: [facility] 7-13 Take with l 14:00: food. Prednisone No Notes: [facility] 7-13 Take with l 14:00: food. Prednisone No Notes: [facility] 7-13 Take with l 14:00: food. Prednisone No Notes: [facility] 7-13 Take with l 14:00: food. Tacrolimus No Notes: [facility] 7-13 Avoid l 13:00: grapefruit [facility] 00 and grapefruit juice. (Same As: Prograf) heparin No Notes: [facility] sodium, 7-13 porcine l porcine 13:00: heparin [facility] 2500 UNT/ML 00 Injectable Solution Tacrolimus No Notes: [facility] 7-13 Avoid l 13:00: grapefruit [facility] 00 and grapefruit juice. (Same As: Prograf) heparin No Notes: [facility] sodium, 7-13 porcine l porcine 13:00: heparin [facility] 2500 UNT/ML 00 Injectable Solution Tacrolimus No Notes: [facility] 7-13 Avoid l 13:00: grapefruit [facility] 00 and grapefruit juice. (Same As: Prograf) [...] [facility] ia 7-13 Avoid l 13:00: grapefruit [facility] 00 and grapefruit juice. (Same As: Prograf) heparin No Notes: [facility] sodium, 7-13 porcine l porcine 13:00: heparin [facility] 2500 UNT/ML 00 Injectable Solution Tacrolimus No Notes: [facility] 7-13 Avoid l 13:00: grapefruit [facility] 00 and grapefruit juice. (Same As: Prograf) heparin No Notes: [facility] sodium, 7-13 porcine l porcine 13:00: heparin [facility] 2500 UNT/ML 00 Injectable Solution Tacrolimus No Notes: [facility] 7-13 Avoid l 13:00: grapefruit [facility] 00 and grapefruit juice. (Same As: Prograf) heparin No Notes: [facility] sodium, 7-13 porcine l porcine 13:00: heparin [facility] 2500 UNT/ML 00 Injectable Solution Tacrolimus No Notes: [facility] 7-13 Avoid l 13:00: grapefruit [facility] 00 and grapefruit juice. (Same As: Prograf) heparin No Notes: [facility] sodium, 7-13 porcine l porcine 13:00: heparin [facility] 2500 UNT/ML 00 Injectable Solution Tacrolimus No Notes: [facility] 7-13 Avoid l 13:00: grapefruit [facility] 00 and grapefruit juice. (Same As: Prograf) heparin No Notes: [facility] sodium, 7-13 porcine l porcine 13:00: heparin [facility] 2500 UNT/ML 00 Injectable Solution Tacrolimus No Notes: [facility] 7-13 Avoid l 13:00: grapefruit [facility] 00 and grapefruit juice. (Same As: Prograf) heparin No Notes: [facility] sodium, 7-13 porcine l porcine 13:00: heparin [facility] 2500 UNT/ML 00 Injectable Solution Tacrolimus No Notes: [facility] 7-13 Avoid l 13:00: grapefruit [facility] 00 and grapefruit juice. (Same As: Prograf) heparin No Notes: [facility] sodium, 7-13 porcine l porcine 13:00: heparin [facility] 2500 UNT/ML 00 Injectable Solution acetaminoph No Notes: Max [facility] en 7-13 acetaminop l 12:23: hen 4000 [facility] 00 mg/day (4 gm/day). (Same as: Tylenol Extra Strength) acetaminoph No Notes: Max [facility] en 7-13 acetaminop l 12:23: hen 4000 [facility] 00 mg/day (4 gm/day). (Same as: Tylenol Extra Strength) acetaminoph No Notes: Max [facility] en 7-13 acetaminop l 12:23: hen 4000 [facility] 00 mg/day (4 gm/day). (Same as: Tylenol [...] en 7-13 acetaminop l 12:23: hen 4000 [facility] 00 mg/day (4 gm/day). (Same as: Tylenol [...] en 7-13 acetaminop l 12:23: hen 4000 [facility] 00 mg/day (4 gm/day). (Same as: Tylenol Extra Strength) iodixanol 0 No 100 mL, [facility] 7 Route: l 08:59: IVP, Drug [facility] [place] 00 Form: SOLN, kg, ONCALL, STAT, Start date: 04/08/18 3:59:00 CDT, Duration: 1 doses or times, Dose = 2.2ml/kg, Max dose = 100ml -- "To be infused by Radiology Staff ONLY" iodixanol 0 No 100 mL, [facility] 04-08 Route: l 08:59: IVP, Drug [facility] 00 Form: SOLN, kg, ONCALL, STAT, Start [...] be infused by Radiology Staff ONLY" iodixanol 2017-0 No 100 mL, [facility] 7- Route: l 08:59: IVP, Drug [facility] 00 Form: SOLN, kg, ONCALL, STAT, Start date: 04/08/18 3:59:00 CDT, Duration: 1 doses or times, Dose = 2.2ml/kg, Max dose = 100ml -- "To be infused by Radiology Staff ONLY" iodixanol 2017-0 No 100 mL, [facility] 7 Route: l 08:59: IVP, Drug [facility] Form: SOLN, kg, ONCALL, STAT, Start date: 04/08/18 3:59:00 CDT, Duration: 1 doses or times, Dose = 2.2ml/kg, Max dose = 100ml -- "To be infused by Radiology Staff ONLY" iodixanol 2018-0 No 100 mL, [facility] 04-08 Route: l 08:59: IVP, Drug [facility] Form: SOLN, kg, ONCALL, STAT, Start date: 04/08/18 3:59:00 CDT, Duration: 1 doses or times, Dose = 2.2ml/kg, Max dose = 100ml -- "To be infused by Radiology Staff ONLY" iodixanol 2018-0 No 100 mL, [facility] 04-08 Route: l 08:59: IVP, Drug [facility] Form: SOLN, kg, ONCALL, STAT, Start date: 04/08/18 3:59:00 CDT, Duration: 1 doses or times, Dose = 2.2ml/kg, Max dose = 100ml -- "To be infused by Radiology Staff ONLY" iodixanol 2018-0 No 100 mL, [facility] 04-08 Route: l 08:59: IVP, Drug [facility] Form: SOLN, kg, ONCALL, STAT, Start date: 04/08/18 3:59:00 CDT, Duration: 1 doses or times, Dose = 2.2ml/kg, Max dose = 100ml -- "To be infused by Radiology Staff ONLY" iodixanol 2018-0 No 100 mL, [facility] 04-08 Route: l 08:59: IVP, Drug [facility] Form: SOLN, kg, ONCALL, STAT, Start date: 04/08/18 3:59:00 CDT, Duration: 1 doses or times, Dose = 2.2ml/kg, Max dose = 100ml -- "To be infused by Radiology Staff ONLY" iodixanol 2018-0 No 100 mL, [facility] 04-08 Route: l 08:59: IVP, Drug [facility] Form: SOLN, kg, ONCALL, STAT, Start date: 04/08/18 3:59:00 CDT, Duration: 1 doses or times, Dose = 2.2ml/kg, Max dose = 100ml -- "To be infused by Radiology Staff ONLY" iodixanol No 100 mL, [facility] 04-08 Route: l 08:59: IVP, Drug [facility] 00 Form: SOLN, kg, ONCALL, STAT, Start [...] oria 7-13 to exceed l 06:48: 400mg/day. [facility] 00 (Same As: Ultram) Oxycodone No Notes: [facility] a Hydrochlori 7-13 (Same as: l de 5 MG 06:48: Roxicodone Herm kris Oral Tablet 00 ) Tramadol 2017-0 No Notes: Not Mem oria 7-13 to exceed l 06:48: 400mg/day. [facility] [place] 00 (Same As: Ultram) Oxycodone 2017-0 No Notes: [facility] a Hydrochlori 7-13 (Same as: l de 5 MG 06:48: Roxicodone Herm kris Oral Tablet 00 ) Tramadol 0 No Notes: Not Mem o[facility] 7-13 to exceed l 06:48: 400mg/day. [facility] 00 (Same As: Ultram) Oxycodone 0 No Notes: [facility] a Hydrochlori 7-13 (Same as: l de 5 MG 06:48: Roxicodone Herm kris Oral Tablet 00 ) Tramadol 0 No Notes: Not Mem [facility] 7-13 to exceed l 06:48: 400mg/day. [facility] 00 (Same As: Ultram) Oxycodone 0 No Notes: [facility] a Hydrochlori 7-13 (Same as: l de 5 MG 06:48: Roxicodone Herm kris Oral Tablet 00 ) Tramadol 0 No Notes: Not Mem o[facility] 7-13 to exceed l 06:48: 400mg/day. [facility] 00 (Same As: Ultram) Oxycodone 0 No Notes: [facility] a Hydrochlori 7-13 (Same as: l de 5 MG 06:48: Roxicodone Herm kris Oral Tablet 00 ) Tramadol 0 No Notes: Not [facility] 7-13 to exceed l 06:48: 400mg/day. [facility] 00 (Same As: Ultram) Oxycodone 0 No Notes: [facility] a Hydrochlori 7-13 (Same as: l de 5 MG 06:48: Roxicodone Herm kris Oral Tablet 00 ) Tramadol 0 No Notes: Not Mem [facility] 7-13 to exceed l 06:48: 400mg/day. [facility] 00 (Same As: Ultram) Oxycodone 2017-0 No Notes: [facility] a Hydrochlori 7-13 (Same as: l de 5 MG 06:48: Roxicodone Herm kris Oral Tablet 00 ) Tramadol 2017-0 No Notes: Not Mem [facility] 7-13 to exceed l 06:48: 400mg/day. [facility] (Same As: Ultram) Oxycodone No Notes: [facility] a Hydrochlori - (Same as: l de 5 MG 06:48: Roxicodone Herm kris Oral Tablet 00 ) Tramadol No Notes: Not Mem o[facility] 7-13 to exceed l 06:48: 400mg/day. Sae 00 (Same As: Ultram) gabapentin No Notes: Memor ia 7-13 (Same as: l 06:46: Neurontin) [facility] Acetaminoph No Notes: Max Memoria en 7-13 acetaminop l 06:46: hen 4000 [facility] 00 mg/day (4 gm/day). (Same as: Tylenol Extra Strength) gabapentin No Notes: Memor ia 7-13 (Same as: l 06:46: Neurontin) [facility] Acetaminoph No Notes: Max Memoria en 7-13 acetaminop l 06:46: hen 4000 Sae 00 mg/day (4 gm/day). (Same as: Tylenol Extra Strength) gabapentin No Notes: Memor ia 7-13 (Same as: l 06:46: Neurontin) [facility] Acetaminoph No Notes: Max Memoria en 7-13 acetaminop l 06:46: hen 4000 [facility] 00 mg/day (4 gm/day). (Same as: Tylenol Extra Strength) gabapentin No Notes: Memor ia 7-13 (Same as: l 06:46: Neurontin) [facility] Acetaminoph No Notes: Max Memoria en 7-13 acetaminop l 06:46: hen 4000 [facility] 00 mg/day (4 gm/day). (Same as: Tylenol Extra Strength) gabapentin No Notes: Memor ia 7-13 (Same as: l 06:46: Neurontin) [facility] Acetaminoph No Notes: Max Memoria en 7-13 acetaminop l 06:46: hen 4000 [facility] 00 mg/day (4 gm/day). (Same as: Tylenol Extra Strength) gabapentin No Notes: Memor ia 7-13 (Same as: l 06:46: Neurontin) [facility] Acetaminoph No Notes: Max Memoria en 7-13 acetaminop l 06:46: hen 4000 [facility] 00 mg/day (4 gm/day). (Same as: Tylenol Extra Strength) gabapentin No Notes: Memor ia 7-13 (Same as: l 06:46: Neurontin) [facility] 00 Acetaminoph No Notes: Max Memoria en [...] ia 7-13 (Same as: l 06:46: Neurontin) [facility] 00 Acetaminoph No Notes: Max Memoria en [...] en 7-13 acetaminop l 06:46: hen 4000 [facility] 00 mg/day (4 gm/day). (Same as: Tylenol Extra Strength) Fentanyl No Notes: Memoria 7-13 (Same as: l 04:37: Sublimaze) [facility] 00 Preservati ve free. Saline No Notes: Memoria Flush 0.9% -13 (Same as: l 04:37: BD [place] Posiflush) Fentanyl No Notes: [facility] 7-13 (Same as: l 04:37: Sublimaze) Sae 00 Preservati ve free. Saline No Notes: [facility] Flush 0.9% 7-13 (Same as: l 04:37: BD [facility] 00 Posiflush) Fentanyl 0 No Notes: [facility] 7-13 (Same as: l 04:37: Sublimaze) [facility] 00 Preservati ve free. Saline No Notes: [facility] Flush 0.9% 7-13 (Same as: l 04:37: BD [facility] 00 Posiflush) Fentanyl 2018-0 No Notes: [facility] 7-13 (Same as: l 04:37: Sublimaze) [place] 00 Preservati ve free. Saline No Notes: [facility] Flush 0.9% 7-13 (Same as: l 04:37: BD [place] 00 Posiflush) Fentanyl 0 No Notes: [facility] 7-13 (Same as: l 04:37: Sublimaze) [facility] 00 Preservati ve free. Saline No Notes: [facility] Flush 0.9% 7-13 (Same as: l 04:37: BD [place] 00 Posiflush) Fentanyl 0 No Notes: [facility] 7-13 (Same as: l 04:37: Sublimaze) [facility] 00 Preservati ve free. Saline No Notes: [facility] Flush 0.9% 7-13 (Same as: l 04:37: BD [place] 00 Posiflush) Fentanyl 20180 No Notes: [facility] 7-13 (Same as: l 04:37: Sublimaze) [place] 00 Preservati ve free. Saline 0 No Notes: [facility] Flush 0.9% 7-13 (Same as: l 04:37: BD [place] 00 Posiflush) Fentanyl 0 No Notes: [facility] 7-13 (Same as: l 04:37: Sublimaze) [place] 00 Preservati ve free. Saline No Notes: [facility] Flush 0.9% 7-13 (Same as: l 04:37: BD [place] 00 Posiflush) Fentanyl 0 No Notes: [facility] 7-13 (Same as: l 04:37: Sublimaze) [place] 00 Preservati ve free. Saline No Notes: [...] 0.9% 7-13 (Same as: l 04:37: BD [place] 00 Posiflush) esomeprazol Yes Take 40 mg [facility] (NexIUM) 4-[address] 20 MG 00:00: every [facility] capsule 00 morning l and 20 mg by mouth every evening montelukast Yes 10mg Take 1 Meth susan (SINGULAIR) 4-28 tablet (10 st 10 mg 00:00: mg total) [facility]osp[facility] tablet 00 by mouth l as needed (allergies ). montelukast Yes 10mg Take 1 Meth susan [...] by mouth l as needed (allergies ). montelukast 2022- No 10mg Take 1 [facility] (SINGULAIR) 4-28 05-01 tablet (10 s t 10 mg 00:00: 00:00 mg total) Hospit a tablet 00 :00 by mouth l as needed (allergies ). esomeprazol 2022- No Take 40 mg [facility] (NexIUM) 4-28 02-[address] 20 MG 00:00: 00:00 every [facility]osp[facility] capsule 00 :00 morning l and 20 mg by mouth every evening esomeprazol 2022- No Take 40 mg [facility] (NexIUM) 01-[address] 20 MG 00:00: 00:00 every Hospita capsule 00 :00 morning l and 20 mg by mouth every evening [facility] 2015-09 Yes Univers 70/30 100 1-05 ity of unit/mL 00:00: [place] (70-30) 00 [place] injection [facility] 2015-09 Yes Univers 70/30 100 1-05 ity of unit/mL 00:00: [place] (70-30) 00 [facility] 2015-09 Yes Univers 70/30 100 1-05 ity of unit/mL 00:00: [place] (70-30) 00 [facility] 2015-09 Yes Univers 70/30 100 1-05 ity of unit/mL 00:00: [place] (70-30) 00 [place] injection [facility] 2015-09 Yes Univers 70/30 100 1-05 ity of unit/mL 00:00: [place] (70-30) 00 [place] injection [facility] 2015-09 Yes Univers 70/30 100 1-05 ity of unit/mL 00:00: [place] (70-30) 00 [facility] 2015-09 Yes TAKE 1 Univer s 10 mg 1-01 TABLET BY ity of tablet 00:00: MOUTH [place] 00 EVERY DAY MD Margot huggins [facility] RETA 2015-09 Yes TAKE 1 Univer s 10 mg 1-01 TABLET BY ity of tablet 00:00: MOUTH [place] 00 EVERY DAY MD Margot huggins [facility] RETA 2015- Yes TAKE 1 Univer s 10 mg 1-01 TABLET BY ity of tablet 00:00: MOUTH [place] 00 EVERY DAY MD Margot huggins [facility] RETA 2015- Yes TAKE 1 Univer s 10 mg 1-01 TABLET BY ity of tablet 00:00: MOUTH [place] 00 EVERY DAY MD Margot huggins [facility] RETA 2015-09 Yes TAKE 1 Univer s 10 mg 1-01 TABLET BY ity of tablet 00:00: MOUTH [place] 00 EVERY DAY [facility] SINGULAIR 2016-1 Yes TAKE 1 Univer s 10 mg 1-01 TABLET BY ity of tablet 00:00: MOUTH [place] 00 EVERY DAY [facility] labetalol 2015-0 Yes TAKE 1 Univer s (TRANDATE) 9-29 TABLET BY ity of 300 mg 00:00: MOUTH [place] tablet 00 EVERY 12 MD HOURS [facility] potassium 2015-0 Yes TAKE ONE Univ ers chloride 9-29 TABLET BY ity of (KATHY GAGNON 00:00: MOUTH [place] -CON M) 10 00 TWICE MD mEq tablet DAILY [facility] labetalol 0 Yes TAKE 1 Univer s (TRANDATE) 9-29 TABLET BY ity of 300 mg 00:00: MOUTH [place] tablet 00 EVERY 12 MD HOURS [facility] potassium 2015-0 Yes TAKE ONE Univ ers chloride 9-29 TABLET BY ity of (KATHY GAGNON 00:00: MOUTH [place] -CON M) 10 00 TWICE MD mEq tablet DAILY [facility] labetalol 0 Yes TAKE 1 Univer s (TRANDATE) 9-29 TABLET BY ity of 300 mg 00:00: MOUTH [place] tablet 00 EVERY 12 MD HOURS [facility] potassium 2015-0 Yes TAKE ONE Univ ers chloride 9-29 TABLET BY ity of (KATHY GAGNON 00:00: MOUTH [place] -CON M) 10 00 TWICE MD mEq tablet DAILY [facility] labetalol 0 Yes TAKE 1 Univer s (TRANDATE) 9-29 TABLET BY ity of 300 mg 00:00: MOUTH [place] tablet 00 EVERY 12 MD HOURS [facility] labetalol 0 Yes TAKE 1 Univer s (TRANDATE) 9-29 TABLET BY ity of 300 mg 00:00: MOUTH [place] tablet 00 EVERY 12 MD HOURS [facility] potassium 2015-0 Yes TAKE ONE Univ ers chloride 9-29 TABLET BY ity of (KATHY GAGNON 00:00: MOUTH [place] -CON M) 10 00 TWICE MD mEq tablet DAILY [facility] potassium 2015-0 Yes TAKE ONE Univ ers chloride 9-29 TABLET BY ity of (K-DUR,KLOR 00:00: MOUTH [place] -CON M) 10 00 TWICE MD mEq tablet DAILY [facility] labetalol Yes TAKE 1 Univer s (TRANDATE) 9-29 TABLET BY ity of 300 mg 00:00: MOUTH [place] tablet 00 EVERY 12 MD HOURS [facility] potassium Yes TAKE ONE Univ ers chloride 9-29 TABLET BY ity of (K-CHAMP MARQUEZOR 00:00: MOUTH [place] -CON M) 10 00 TWICE MD mEq tablet DAILY [facility] folic acid Yes TAKE ONE Uni vers (FOLVITE) 1 9-22 TABLET BY ity of mg tablet 00:00: MOUTH [place] 00 DAILY [facility] torsemide Yes TAKE 2 Univer s (DEMADEX) 9-22 TABLETS BY ity of 20 mg 00:00: MOUTH ONCE [place] tablet 00 DAILY [facility] folic acid Yes TAKE ONE Uni vers (FOLVITE) 1 9-22 TABLET BY ity of mg tablet 00:00: MOUTH [place] 00 DAILY [facility] torsemide Yes TAKE 2 Univer s (DEMADEX) 9-22 TABLETS BY ity of 20 mg 00:00: MOUTH ONCE [place] tablet 00 DAILY [facility] folic acid Yes TAKE ONE Uni vers (FOLVITE) 1 9-22 TABLET BY ity of mg tablet 00:00: MOUTH [place] 00 DAILY [facility] torsemide Yes TAKE 2 Univer s (DEMADEX) 9-22 TABLETS BY ity of 20 mg 00:00: MOUTH ONCE [place] tablet 00 DAILY [facility] folic acid Yes TAKE ONE Uni vers (FOLVITE) 1 9-22 TABLET BY ity of mg tablet 00:00: MOUTH [place] 00 DAILY [facility] torsemide Yes TAKE 2 Univer s (DEMADEX) 9-22 TABLETS BY ity of 20 mg 00:00: MOUTH ONCE [place] tablet 00 DAILY [facility] folic acid Yes TAKE ONE Uni vers (FOLVITE) 1 9-22 TABLET BY ity of mg tablet 00:00: MOUTH [place] 00 DAILY [facility] torsemide Yes TAKE 2 Univer s (DEMADEX) 9-22 TABLETS BY ity of 20 mg 00:00: MOUTH ONCE [place] tablet 00 DAILY [facility] folic acid Yes TAKE ONE Uni vers (FOLVITE) 1 9-22 TABLET BY ity of mg tablet 00:00: MOUTH [place] 00 DAILY [facility] torsemide Yes TAKE 2 Univer s (DEMADEX) 9-22 TABLETS BY ity of 20 mg 00:00: MOUTH ONCE [place] tablet 00 DAILY [facility] ALPRAZolam Yes TAKE 1 Unive rs (XANAX) 9-03 TABLET BY ity of 0.25 mg 00:00: MOUTH 4 [place] tablet 00 TIMES A MD DAY FOR 30 [facility] Unive rs (XANAX) 9-03 TABLET BY ity of 0.25 mg 00:00: MOUTH 4 [place] tablet 00 TIMES A MD DAY FOR 30 [facility] ALPRAZolam Yes TAKE 1 Unive rs (XANAX) 9-03 TABLET BY ity of 0.25 mg 00:00: MOUTH 4 [place] tablet 00 TIMES A MD DAY FOR 30 [facility] ALPRAZolam Yes TAKE 1 Unive rs (XANAX) 9-03 TABLET BY ity of 0.25 mg 00:00: MOUTH 4 [place] tablet 00 TIMES A MD DAY FOR 30 [facility] ALPRAZolam Yes TAKE 1 Unive rs (XANAX) 9-03 TABLET BY ity of 0.25 mg 00:00: MOUTH 4 [place] tablet 00 TIMES A MD DAY FOR 30 [facility] ALPRAZolam Yes TAKE 1 Unive rs (XANAX) 9-03 TABLET BY ity of 0.25 mg 00:00: MOUTH 4 [place] tablet 00 TIMES A MD DAY FOR 30 [facility] tamsulosin Yes TAKE ONE Uni vers (FLOMAX) 8-25 CAPSULE ity of 0.4 mg 24 00:00: EVERY [place] hr capsule 00 EVENING [facility] tamsulosin Yes TAKE ONE Uni vers (FLOMAX) 8-25 CAPSULE ity of 0.4 mg 24 00:00: EVERY [place] hr capsule 00 EVENING MD Margot huggins [facility] tamsulosin Yes TAKE ONE Uni vers (FLOMAX) 8-25 CAPSULE ity of 0.4 mg 24 00:00: EVERY [place] hr capsule 00 EVENING MD Margot huggins [facility] tamsulosin Yes TAKE ONE Uni vers (FLOMAX) 8-25 CAPSULE ity of 0.4 mg 24 00:00: EVERY [place] hr capsule 00 EVENING MD Margot huggins [facility] tamsulosin Yes TAKE ONE Uni vers (FLOMAX) 8-25 CAPSULE ity of 0.4 mg 24 00:00: EVERY [place] hr capsule 00 EVENING MD Margot huggins [facility] tamsulosin Yes TAKE ONE Uni vers (FLOMAX) 8-25 CAPSULE ity of 0.4 mg 24 00:00: EVERY [place] hr capsule 00 EVENING MD Frost [facility] pravastatin Yes TAKE ONE Un christian (PRAVACHOL) 8-10 TABLET BY ity of 40 mg 00:00: MOUTH IN [place] tablet 00 THE LATE MD EVENING Anderso DAILY. [facility] pravastatin 2021- No TAKE ONE U nivers (PRAVACHOL) 8-07 02- TABLET BY it y of 40 mg 00:00: 00:00 MOUTH IN [place] tablet 00 :00 THE LATE MD EVENING [place] DAILY. [facility] pravastatin 2021- No TAKE ONE U nivers (PRAVACHOL) 8-07 02- TABLET BY it y of 40 mg 00:00: 00:00 MOUTH IN [place] tablet 00 :00 THE LATE MD EVENING [place] DAILY. [facility] pravastatin 2021- No TAKE ONE U nivers (PRAVACHOL) 8-07 02- TABLET BY it y of 40 mg 00:00: 00:00 MOUTH IN [place] tablet 00 :00 THE LATE MD EVENING [place] DAILY. [facility] pravastatin 2021- No TAKE ONE U nivers (PRAVACHOL) 8-07 02- TABLET BY it y of 40 mg 00:00: 00:00 MOUTH IN [place] tablet 00 :00 THE LATE MD EVENING [place] DAILY. [facility] pravastatin 2021- No TAKE ONE U nivers (PRAVACHOL) 8-07 02-21 TABLET BY it y of 40 mg 00:00: 00:00 MOUTH IN [place] tablet 00 :00 THE LATE [place] EVENING [facility] labetalol 0 Yes TAKE 2 Univer s (TRANDATE) 8-04 TABLETS BY ity of 200 mg 00:00: MOUTH [place] tablet 00 TWICE A MD DAY [facility] labetalol 0 Yes TAKE 2 Univer s (TRANDATE) 8-04 TABLETS BY ity of 200 mg 00:00: MOUTH [place] tablet 00 TWICE A MD DAY [facility] labetalol 0 Yes TAKE 2 Univer s (TRANDATE) 8-04 TABLETS BY ity of 200 mg 00:00: MOUTH [place] tablet 00 TWICE A [place] DAY [facility] labetalol 0 Yes TAKE 2 Univer s (TRANDATE) 8-04 TABLETS BY ity of 200 mg 00:00: MOUTH [place] tablet 00 TWICE A [place] DAY [facility] labetalol 0 Yes TAKE 2 Univer s (TRANDATE) 8-04 TABLETS BY ity of 200 mg 00:00: MOUTH [place] tablet 00 TWICE A [place] DAY [facility] labetalol 0 Yes TAKE 2 Univer s (TRANDATE) 8-04 TABLETS BY ity of 200 mg 00:00: MOUTH [place] tablet 00 TWICE A [place] DAY [facility] metolazone metolazone No 1 Q1D [...] UNITS EVERY EVENING potassium potassium No potassium [place] chloride ER chloride ER chloride [facility] 10 mEq 10 mEq ER 10 mEq Urolog y tablet,exte tablet,exte tablet,ext nded nded ended release(par release(par release(pa t/cryst) t/cryst) rt/cryst) TAKE 2 TAKE 2 TAKE 2 TABLETS BY TABLETS BY TABLETS BY MOUTH EVERY MOUTH EVERY MOUTH DAY DAY EVERY DAY pravastatin pravastatin No pravastati [place] 80 mg 80 mg n 80 mg [facility] tablet TAKE tablet TAKE tablet Urology 1 TABLET BY 1 TABLET BY TAKE 1 MOUTH EVERY MOUTH EVERY TABLET BY DAY DAY MOUTH EVERY DAY sertraline sertraline No sertraline [place] 50 mg 50 mg 50 mg [facility] tablet TAKE tablet TAKE tablet Urology 1 TABLET BY 1 TABLET BY TAKE 1 MOUTH EVERY MOUTH EVERY TABLET BY DAY DAY MOUTH EVERY DAY Singulair Singulair No 1 Q1D Singulair [place] 10 mg 10 mg 10 mg [facility] tablet Take tablet Take tablet Urology 1 tablet 1 tablet Take 1 every day every day tablet by oral by oral every day route. route. by oral route. tacrolimus tacrolimus No tacrolimus [place] 0.5 mg 0.5 mg 0.5 mg [facility] [...] B1) B1) B1) torsemide torsemide No torsemide [place] 20 mg 20 mg 20 mg [facility] tablet TAKE tablet TAKE tablet Urology 2 TABLETS 2 TABLETS TAKE 2 (40 MG (40 MG TABLETS TOTAL) BY TOTAL) BY (40 MG MOUTH MOUTH TOTAL) BY DAILY. DAILY. MOUTH DAILY. tramadol 50 tramadol 50 No tramadol [place] mg tablet mg tablet 50 mg Metr o TAKE 1 TAKE 1 tablet Urology TABLET BY TABLET BY TAKE 1 MOUTH EVERY MOUTH EVERY TABLET BY 4 HOURS 4 HOURS MOUTH NEEDED FOR NEEDED FOR EVERY 4 PAIN PAIN HOURS NEEDED FOR PAIN Alive Alive No Alive [place] Calcium-Vit Calcium-Vit Calcium-Vi [facility] rosas D3 rosas D3 tamin D3 Urolo gy allopurinol allopurinol No allopurino [place] 100 mg 100 mg l 100 mg [facility] tablet TAKE tablet TAKE tablet Urology 1 TABLET BY 1 TABLET BY TAKE 1 MOUTH TWICE MOUTH TWICE TABLET BY A DAY A DAY MOUTH TWICE A DAY alprazolam alprazolam No alprazolam [place] 0.5 mg 0.5 mg 0.5 mg [facility] tablet ORAL tablet ORAL tablet Urology TAKE 1 TAKE 1 ORAL TAKE TABLET BY TABLET BY 1 TABLET MOUTH FOUR MOUTH FOUR BY MOUTH TIMES A DAY TIMES A DAY FOUR TIMES A DAY amlodipine amlodipine No amlodipine [place] 5 mg tablet 5 mg tablet 5 [...] route. route. route. cranberry cranberry No cranberry [place] [facility] ferrous ferrous No ferrous [place] sulfate sulfate sulfate [facility] finasteride finasteride No finasterid [place] 5 mg tablet 5 mg tablet e [...] folic acid folic acid No folic acid [place] 1 mg tablet 1 mg tablet 1 mg M etro TAKE 1 TAKE 1 tablet Urology TABLET BY TABLET BY TAKE 1 MOUTH EVERY MOUTH EVERY TABLET BY DAY DAY MOUTH EVERY DAY gabapentin gabapentin No gabapentin [place] 400 mg 400 mg 400 mg [facility] capsule capsule capsule Urolog y TAKE 1 TAKE 1 TAKE 1 CAPSULE BY CAPSULE BY CAPSULE BY MOUTH THREE MOUTH THREE MOUTH TIMES A DAY TIMES A DAY THREE TIMES A DAY isosorbide isosorbide No isosorbide [place] mononitrate mononitrate mononitrat [facility] ER 30 mg [...] Immunizations Ordered Filled Immunization Date Status Comments [facility] e Immunization Name Name [facility] 2022-09-25 Completed [facility] 00:00:00 [facility] 2022-09-25 Completed Islam 00:00:00 [facility] 2022-09-25 Completed Islam 00:00:00 [facility] 2022-09-24 Completed Islam 00:00:00 [facility] 2022-09-24 Completed Islam 00:00:00 [facility] 2022-09-24 Completed Islam 00:00:00 [facility] 2022-09-23 Completed Islam 00:00:00 [facility] 2022-09-23 Completed Islam 00:00:00 [facility] 2022-09-23 Completed Islam 00:00:00 [facility] 2022-09-22 Completed Islam 00:00:00 [facility] 2022-09-22 Completed Islam 00:00:00 [facility] 2022-09-22 Completed Islam 00:00:00 [facility] 2022-09-21 Completed Islam 00:00:00 [facility] 2022-09-21 [facility] Islam 00:00:00 [facility] pneumococcal pneumococcal 2021-08-27 Completed [facility] Me [facility] conjugate PCV 13 conjugate PCV 13 00:00:00 gabey Pneumococcal 2021-08-27 Completed Islam Conjugate 13-Valent 00:00:00 [facility] Pneumococcal 2021-08-27 Completed Islam Conjugate 13-Valent 00:00:00 [facility] Pneumococcal 2021-08-27 Completed Islam Conjugate 13-Valent 00:00:00 [facility] Pneumococcal 2021-08-27 Completed Islam Conjugate 13-Valent 00:00:00 [facility] MODERNA COVID-19 2021-06-23 Completed [facility] MRNA VACCINATION 00:00:00 [facility] MODERNA COVID-19 2021-06-23 Completed [facility] MRNA VACCINATION 00:00:00 [facility] MODERNA COVID-19 2021-06-23 Completed [facility] MRNA VACCINATION 00:00:00 [facility] MODERN COVID-19 2021-06-23 Completed [facility] MRNA VACCINATION 00:00:00 [facility] SARS-COV-2 COVID-19 2021-06-23 Completed Unive rsity of MODERNA VACCINE 00:00:00 [facility] COVID-19, mRNA, COVID-19, mRNA, 2021-06-16 Completed [place] LNP-S, PF, 100 LNP-S, PF, 100 00:00:00 Urolog y mcg/0.5 mL dose mcg/0.5 mL dose (Moderna) (Moderna) MODERNA COVID-19 2021-06-16 Completed Method[facility] t MRNA VACCINATION 00:00:00 [facility] MODERNA COVID-19 2021-06-16 Completed [facility] MRNA VACCINATION 00:00:00 [facility] MODERNA COVID-19 2021-06-16 Completed [facility] MRNA VACCINATION 00:00:00 Hospital MODERNA COVID-19 2021-06-16 Completed [facility] t MRNA VACCINATION 00:00:00 [facility] COVID-19, mRNA, COVID-19, mRNA, 2020-12-16 Completed [place] LNP-S, PF, 100 LNP-S, PF, 100 00:00:00 Urolog y mcg/0.5 mL dose mcg/0.5 mL dose (Moderna) (Moderna) [facility] COVID-19 2020-12-16 Completed Methodis t MRNA VACCINATION 00:00:00 [place] [id number] 2020-12-16 Completed [facility] 2020-[facility]16 Completed Method[facility] t MRNA VACCINATION 00:00:00 [place] [id number] 2020-12-16 Completed [facility] MRNA VACCINATION 00:00:00 [place] [id number], [facility], 2020-11-18 Completed [place] [facility] LNP-S, PF, 100 LNP-S, PF, 100 00:00:00 Urolog y mcg/0.5 mL dose mcg/0.5 mL dose ([facility]) [facility] [place] [id number] 2020-11-18 Completed Method[facility] t MRNA VACCINATION 00:00:00 [place] [id number] 2020-11-18 Completed [facility] MRNA VACCINATION 00:00:00 [place] [id number] 2020-11-18 Completed [facility] MRNA VACCINATION 00:00:00 [place] [id number] 2020-11-18 Completed [facility] MRNA VACCINATION 00:00:00 [place] [id number] 2020-10-31 Completed [facility] MRNA VACCINATION [facility]:00[facility]00 [facility] 2020-10-31 Completed [facility] MRNA VACCINATION 00:00:00 [facility] 2020-10-31 Completed [facility] t MRNA VACCINATION 00:00:00 [place] [id number] 2020-10-31 Completed [facility] MRNA VACCINATION 00:00:00 [facility] 2020-10-03 Completed [facility] MRNA VACCINATION 00:00:00 [facility] 2020-10-03 Completed Method[facility] t MRNA VACCINATION 00:00:00 [place] [id number] 2020-10-03 Completed [facility] MRNA VACCINATION 00:00:00 [facility] 2020-10-03 Completed Method[facility] t MRNA VACCINATION 00:00:00 [facility] Pneumococcal 2020-07-09 Completed Islam Conjugate 13-Valent 00:00:00 [facility] Pneumococcal 2020-07-09 Completed Islam Conjugate 13-Valent 00:00:00 Merrill ryan Pneumococcal 2020-07-09 Completed Islam Conjugate 13-Valent 00:00:00 Merrill ryan Pneumococcal 2020-07-09 Completed Islam Conjugate 13-Valent 00:00:00 Merrill ryan Vital Signs Vital Name Observation Time Observation Value Comments Source Height 2022-02-10 00:00:00 69.5 [in_i] [facility] Urology BMI (Body Mass 2022-02-10 00:00:00 25.5 kg/m2 [facility] Index) Urology Body Weight 2022-02-10 00:00:00 175 [lb_av] [facility] Systolic blood 2023-02-26 16:13:00 161 mm[Hg] [facility] pressure Diastolic blood 2023-02-26 16:13:00 77 mm[Hg] [facility] pressure Heart rate 2023-02-26 16:13:00 83 /min [facility] Body height 2023-02-26 16:13:00 175.3 cm [facility] Body weight 2023-02-26 16:13:00 86.864 kg [facility] BMI 2023-02-26 16:13:00 28.28 kg/m2 [facility] Oxygen saturation in 2023-02-26 16:13:00 95 /min [facility] Arterial blood by Pulse oximetry Body temperature 2023-02-17 14:54:00 36.39 Genevieve [facility] Respiratory rate 2023-02-15 14:28:00 16 /min [facility] Systolic blood 2022-11-11 18:48:00 102 mm[Hg] [facility] pressure Diastolic blood 2022-11-11 18:48:00 56 mm[Hg] [facility] pressure Heart rate 2022-11-11 18:48:00 86 /min [facility] Body height 2022-11-11 18:48:00 175.3 cm [facility] Body weight 2022-11-11 18:48:00 85.004 kg [facility] BMI 2022-11-11 18:48:00 27.67 kg/m2 [facility] Oxygen saturation in 2022-11-11 18:48:00 98 /min [facility] Arterial blood by Pulse oximetry Respiratory rate 2022-11-06 17:40:00 16 /min [facility] Systolic blood 2022-10-26 18:04:00 181 mm[Hg] [facility] blood 2022-10-26 18:04:00 83 mm[Hg] [facility] pressure Heart rate 2022-10-26 18:04:00 101 /min [facility] Body temperature 2022-10-26 18:04:00 36.33 Genev[place] [facility] Respiratory rate 2022-10-26 18:04:00 18 /min [facility] Body height 2022-10-26 18:04:00 175.3 cm [facility] Body weight 2022-10-26 18:04:00 84.233 kg [facility] BMI 2022-10-26 18:04:00 27.42 kg/m2 [facility] Oxygen saturation in 2022-10-26 18:04:00 93 /min [facility] Arterial blood by Pulse oximetry Systolic blood 2022-09-02 18:57:00 111 mm[Hg] [facility] pressure Diastolic blood 2022-09-02 18:57:00 55 mm[Hg] [facility] pressure Heart rate 2022-09-02 18:57:00 73 /min [facility] Body temperature 2022-09-02 18:57:00 36.06 Genevieve [facility] Body height 2022-09-02 18:57:00 175.3 cm [facility] Body weight 2022-09-02 18:57:00 85.73 kg [facility] BMI 2022-09-02 18:57:00 27.91 kg/m2 [facility] Oxygen saturation in 2022-09-02 18:57:00 91 /min [facility] Arterial blood by Pulse oximetry Respiratory rate 2022-06-03 18:41:00 18 /min [facility] Systolic blood 2022-03-17 15:34:42 103 mm[Hg] Univer sity of pressure Jacky Nicolas on [facility] Diastolic blood 2022-03-17 15:34:42 60 mm[Hg] Unive rsity of pressure Jacky Nciolas on [facility] [place] Heart rate 2022-03-17 15:34:42 77 /min [facility] Jacky Nicolas on [facility] Body temperature 2022-03-17 15:34:[address] [facility] MD Nicolas on [facility] Center Respiratory rate 2022-03-17 15:34:42 16 /min [facility] MD Nicolas on [facility] Center Oxygen saturation in 2022-03-17 15:34:42 92 /min [facility] Arterial blood by Jacky wolfeon Pulse oximetry Cancer Center Systolic blood 2022-02-24 19:25:00 178 mm[Hg] Univer sity of pressure Jacky Nicolas on [facility] Center Diastolic blood 2022-02-24 19:25:00 89 mm[Hg] Unive rsity of pressure [place] MD Nicolas on [facility] Center Heart rate 2022-02-24 19:25:00 86 /min [facility] MD Nicolas on [facility] Center Body temperature 2022-02-24 19:25:[address] [facility] MD Nicolas on Cancer Center Oxygen saturation in 2022-02-24 19:25:00 94 /min [facility] Arterial blood by Jacky wolfeon Pulse oximetry [facility] [facility] Respiratory rate 2022-02-24 16:19:00 14 /min [facility] Respitory Rate 2018-04-18 23:44:00 [facility] Heart Rate 2018-04-18 23:44:00 [facility] Systolic (mm Hg) 2018-04-18 23:44:00 [facility] Diastolic (mm Hg) 2018-04-18 23:44:00 [facility] Temperature Oral (F) 2018-04-18 23:44:00 97.5 F [facility] Heart Rate 2018-04-18 17:46:00 [facility] Respitory Rate 2018-04-18 17:46:00 [facility] Temperature Oral (F) 2018-04-18 17:46:00 97.8 F [facility] Systolic (mm Hg) 2018-04-18 17:46:00 [facility] Diastolic (mm Hg) 2018-04-18 17:46:[address] [facility] Systolic (mm Hg) 2018-04-18 14:34:00 [facility]ae Diastolic (mm Hg) 2018-04-18 14:34:00 [facility] Temperature Oral (F) 2018-04-18 14:34:00 97.5 F [facility] Heart Rate 2018-04-18 14:34:00 [facility] Respitory Rate 2018-04-18 14:34:[address] Weight 2018-04-09 02:59:00 [facility] BMI Calculated 2018-04-09 02:59:[address] Height 2018-04-09 02:59:00 175.26 cm [facility] Procedures Procedure Date / Time Performing Source Performed Clinician MAGNESIUM LEVEL 2023-02-23 Vaibhav Faulkner 14:20:00 Hospital COMPREHENSIVE METABOLIC PANEL 2023-02-23 Vaibhav Faulkner thodist 14:20:00 Hospital PROTHROMBIN TIME WITH INR 2023-02-23 Vaibhav Faulkner Method ist 14:20:00 Hospital CBC WITH PLATELET AND 2023-02-23 Vaibhav Faulkner DIFFERENTIAL 14:20:00 Hospital [id number] TACROLIMUS LEVEL, RANDOM 2023-02-23 Vaibhav Faulkner ethodist 14:20:00 Hospital CBC WITH PLATELET AND 2023-02-15 Vaibhav Faulkner DIFFERENTIAL 16:20:00 Hospital PHOSPHORUS LEVEL 2023-02-15 Vaibhav Faulkner 16:20:00 Hospital MAGNESIUM LEVEL 2023-02-15 Vaibhav Faulkner 16:20:00 Hospital HEPATIC FUNCTION PANEL 2023-02-15 Vaibhav Faulkner 16:20:00 Hospital LDH 2023-02-15 Vaibhav Faulkner 16:20:00 Hospital CYTOMEGALOVIRUS BY PCR 2023-02-15 Vaibhav Faulkner 16:20:00 Hospital PROTHROMBIN TIME WITH INR 2023-02-15 Vaibhav Faulkner ist 16:20:00 Hospital [id number] TACROLIMUS LEVEL, RANDOM 2023-02-15 Vaibhav Faulkner ethodist 16:20:00 Hospital NT-PROBNP 2023-02-15 Vaibhav Faulkner 16:20:00 Hospital ECG 12-LEAD 2023-02-15 Vaibhav Faulkner 14:40:49 Hospital POC GLUCOSE 2023-02-05 Savannah Blank 17:51:00 Hospital SURGICAL PATHOLOGY REQUEST 2023-02-05 Savannah Blanko dist 17:51:00 Hospital ESOPHAGOGASTRODUODENOSCOPY (EGD) 2023-02-05 Adela Ca 16:18:00 Hospital POC GLUCOSE 2023-02-05 Savannah Blank 14:58:00 Hospital POC GLUCOSE 2023-02-05 Savannah Blank 13:28:00 Hospital CBC WITH PLATELET AND 2023-02-05 Anumandla, Islam DIFFERENTIAL 10:57:00 [facility] COMPREHENSIVE METABOLIC PANEL 2023-02-05 Anumandla, Me thodist 10:57:00 [facility] [id number] TACROLIMUS LEVEL, TROUGH 2023-02-05 Mesfin M ethodist 10:57:00 [facility] ESTIMATED GFR 2023-02-05 Anumanpieter Islam 10:57:00 [facility] POC GLUCOSE 2023-02-05 Savannah Blankist 02:55:00 Hospital POC GLUCOSE 2023-02-04 Savannah Blankist 23:00:00 Hospital POC GLUCOSE 2023-02-04 Savannah Blankist 16:42:00 Hospital POC GLUCOSE 2023-02-04 Savannah Blank 13:12:00 Hospital CBC WITH PLATELET AND 2023-02-04 Anumandla, Islam DIFFERENTIAL 09:50:00 [facility] COMPREHENSIVE METABOLIC PANEL 2023-02-04 Anumandla, Me thodist 09:50:00 [facility] [id number] TACROLIMUS LEVEL, TROUGH 2023-02-04 Bishop Toure ethodist 09:50:00 [facility] ESTIMATED GFR 2023-02-04 Mesfin Islam 09:50:00 [facility] POC GLUCOSE 2023-02-04 Savannah Blank 06:23:00 Hospital POC GLUCOSE 2023-02-04 Savannah Blank 02:41:00 Hospital POC GLUCOSE 2023-02-03 Savannah Blank 23:15:00 Hospital POC GLUCOSE 2023-02-03 Savannah Blank 20:04:00 Hospital POC GLUCOSE 2023-02-03 Savannah Blank 18:14:00 Hospital NM LUNG PERFUSION IMAGING 2023-02-03 Dylan Carey odist 15:33:46 Hospital POC GLUCOSE 2023-02-03 Savannah Blank 13:35:00 Hospital TROPONIN T 2023-02-03 Dylan Carey 11:15:00 Hospital CYTOMEGALOVIRUS BY PCR 2023-02-03 Marah Campbell 11:01:00 [facility] [id number] TACROLIMUS LEVEL, TROUGH 2023-02-03 Marah Campbell ethodist 11:01:00 [facility] CBC WITH PLATELET AND 2023-02-03 Savannah Blank DIFFERENTIAL 11:01:00 [facility] COMPREHENSIVE METABOLIC PANEL 2023-02-03 Savannah Blank thodist 11:01:00 [facility] ESTIMATED GFR 2023-02-03 Savannah Blank 11:01:00 Hospital TROPONIN T 2023-02-02 Dylan Carey 23:20:00 Hospital LACTIC ACID LEVEL, SEPSIS - NOW 2023-02-02 Dylan Carey AND REPEAT 2X EVERY 3 HOURS 23:20:00 Hosp ital BLOOD CULTURE, AEROBIC & 2023-02-02 Dylan Careyo dist ANAEROBIC 20:33:00 Hospital D-DIMER 2023-02-02 Dylan Carey 20:32:00 Hospital VENOUS BLOOD GAS 2023-02-02 Dylan Carey 20:32:00 Hospital LACTIC ACID LEVEL, SEPSIS - NOW 2023-02-02 Dylan Carey AND REPEAT 2X EVERY 3 HOURS 20:32:00 Hosp ital MAGNESIUM LEVEL 2023-02-02 Dylan Carey 20:32:00 Hospital [id number] TACROLIMUS LEVEL, RANDOM 2023-02-02 Dylan Carey 20:32:00 Hospital ECG ED PRELIMINARY INTERPRETATION 2023-02-02 Dylan Carey 20:14:35 [facility] XR CHEST 2 VW 2023-02-02 Dylan Carey 19:46:27 Hospital CBC WITH PLATELET AND 2023-02-02 Bakshy, Dylan Zaragoza Methodis t DIFFERENTIAL 19:35:00 Hospital COMPREHENSIVE METABOLIC PANEL 2023-02-02 Dylan Carey Zaragoza Islam 19:35:00 Hospital TROPONIN T 2023-02-02 Dylan Carey Islam 19:35:00 Hospital NT-PROBNP 2023-02-02 Dylan Carey Zaragoza Islam 19:35:00 Hospital PARTIAL THROMBOPLASTIN TIME (PTT) 2023-02-02 Dylan Carey ill Islam 19:35:00 Hospital PROTHROMBIN TIME WITH INR 2023-02-02 Dylan Carey Meth odist 19:35:00 Hospital ESTIMATED GFR 2023-02-02 Dylan Carey Zaragoza Islam 19:35:00 Hospital ECG 12-LEAD 2023-02-02 Dylan Carey Islam 19:21:56 Hospital POC GLUCOSE 2023-01-27 Angel Luis Mejia 13:06:00 [facility] CBC WITH PLATELET AND 2023-01-27 Elvira Villa Islam DIFFERENTIAL 10:05:00 [facility] COMPREHENSIVE METABOLIC PANEL 2023-01-27 Allen Elvira Me thodist 10:05:00 [facility] MAGNESIUM LEVEL 2023-01-27 Allen Elvira Islam 10:05:00 [facility] [id number] TACROLIMUS LEVEL, TROUGH 2023-01-27 Elvira Villa ethodist 10:05:00 [facility] ESTIMATED GFR 2023-01-27 Allen Elvira Islam 10:05:00 [facility] POC GLUCOSE 2023-01-27 Angel Luis Mejia 02:34:00 Hospital POC GLUCOSE 2023-01-27 Angel Luis Mejia 00:24:00 Hospital POC GLUCOSE 2023-01-26 Angel Luis Mejia 17:06:00 Hospital POC GLUCOSE 2023-01-26 Angel Luis Mejia 13:31:00 Hospital CBC WITH PLATELET AND 2023-01-26 Allen Elvira Islam DIFFERENTIAL 10:12:00 [facility] COMPREHENSIVE METABOLIC PANEL 2023-01-26 Villa, Elvira Me thodist 10:12:00 [facility] MAGNESIUM LEVEL 2023-01-26 Allen Elvira Islam 10:12:00 [facility] [id number] TACROLIMUS LEVEL, TROUGH 2023-01-26 Elvira Villaodist 10:12:00 [facility] ESTIMATED GFR 2023-01-26 Elvira Villa 10:12:00 [facility] POC GLUCOSE 2023-01-26 Angel Luis Mejia 03:04:00 Hospital POC GLUCOSE 2023-01-25 Angel Luis Mejia 22:07:00 Hospital TROPONIN T 2023-01-25 Elvira Villa 20:46:[address] [facility] [address] CHEST WO CONTRAST 2023-01-25 Angel Luis Mejia 20:44:00 Hospital POC GLUCOSE 2023-01-25 Angel Luis Mejia 18:07:00 Hospital AMYLASE LEVEL 2023-01-25 Elvira Villa 16:40:00 [facility] LIPASE LEVEL 2023-01-25 Elvira Villa 16:40:00 [facility] LACTIC ACID LEVEL 2023-01-25 Elvira Villa 16:40:00 [facility] POC GLUCOSE 2023-01-25 Angel Luis Mejia 13:28:00 Hospital [id number] TACROLIMUS LEVEL, RANDOM 2023-01-25 Alexis Lowe ethodist 11:13:00 Hospital TROPONIN T 2023-01-25 Alexis Lowe 06:15:00 Hospital TTE COMPLETE, W CONTRAST, W 2023-01-25 Nora, Meth odist DOPPLER ([id number]) 06:15:00 [facility] POC GLUCOSE 2023-01-25 Angel Luis Mejia 02:29:00 Hospital TROPONIN T 2023-01-25 Alexis Lowe 01:52:00 Hospital URINE CULTURE 2023-01-25 Ivonne Moore 01:15:00 [facility] URINALYSIS SCREEN AND MICROSCOPY, 2023-01-25 Ivonne Moore WITH REFLEX TO CULTURE 01:08:00 [facility] XR CHEST 1 VW PORTABLE 2023-01-25 Ivonne Moore 00:50:02 [facility] BLOOD CULTURE, AEROBIC & 2023-01-[address] ANAEROBIC 00:19:00 [facility] RESPIRATORY PATHOGEN PANEL WITH 2023-01-25 Ivonne Moore COVID-19 RT-PCR 00:19:00 [facility] PROTHROMBIN TIME WITH INR 2023-01-25 Ivonne Moore ist 00:19:00 [facility] PARTIAL THROMBOPLASTIN TIME (PTT) 2023-01-25 Ivonne Moore 00:19:00 [facility] MAGNESIUM LEVEL 2023-01-25 Ivonne Moore 00:19:00 [facility] PHOSPHORUS LEVEL 2023-01-25 Ivonne Moore 00:19:00 [facility] ECG ED PRELIMINARY INTERPRETATION 2023-01-24 Ivonne Moore 23:55:21 [facility] CBC WITH PLATELET AND 2023-01-24 Alexis Lowe DIFFERENTIAL 23:08:00 [facility] COMPREHENSIVE METABOLIC PANEL 2023-01-24 Alexis Lowe thodist 23:08:00 Hospital TROPONIN T 2023-01-24 Alexis Lowe 23:08:00 Hospital NT-PROBNP 2023-01-24 Alexis Lowe 23:08:00 Hospital ESTIMATED GFR 2023-01-24 Alexis Lowe 23:08:00 Hospital ECG 12-LEAD 2023-01-24 Ivonne Moore 20:32:44 [facility] MRI ABDOMEN W WO CONTRAST 2023-01-22 Bhumi Cruz ist 16:48:00 [facility] ECG 12-LEAD 2022-12-25 Vaibhav Faulkner 13:53:09 Hospital CV CARDIAC PET STRESS TEST 2022-12-22 Vaibhav Faulkner Metho dist 18:03:59 Hospital CV CARDIAC PET MYOCARDIAL 2022-12-22 Vaibhav Faulkner ist PERFUSION IMAGING 18:03:[address] CHEST WO CONTRAST ABDOMEN WO 2022-12-22 Vaibhav Faulkner CONTRAST PELVIS WO CONTRAST 16:05:12 Hosp ital URINE CULTURE 2022-12-22 Vaibhav Faulkner 13:20:00 Hospital CBC WITH PLATELET AND 2022-12-22 Vaibhav Faulkner DIFFERENTIAL 13:20:00 Hospital PHOSPHORUS LEVEL 2022-12-22 Vaibhav Faulkner 13:20:00 Hospital MAGNESIUM LEVEL 2022-12-22 Vaibhav Faulkner 13:20:00 Hospital HEPATIC FUNCTION PANEL 2022-12-22 Vaibhav Faulkner 13:20:00 Hospital LIPID PANEL 2022-12-22 Vaibhav Faulkner 13:20:00 Hospital HEMOGLOBIN A1C 2022-12-22 Vaibhav Faulkner 13:20:00 Hospital IONIZED CALCIUM 2022-12-22 Vaibhav Faulkner 13:20:00 Hospital PARATHYROID HORMONE 2022-12-22 Vaibhav Faulkner 13:20:00 Hospital T3 2022-12-22 Vaibhav Faulkner 13:20:00 Hospital T4 2022-12-22 Vaibhav Faulkner 13:20:00 Hospital THYROID STIMULATING HORMONE 2022-12-22 Vaibhav Faulkner odist 13:20:00 Hospital URIC ACID LEVEL 2022-12-22 Vaibhav Faulkner 13:20:00 Hospital LDH 2022-12-22 Vaibhav Faulkner 13:20:00 Hospital TROPONIN T 2022-12-22 Vaibhav Faulkner 13:20:00 Hospital URINALYSIS SCREEN AND MICROSCOPY, 2022-12-22 Vaibhav Faulkner WITH REFLEX TO CULTURE 13:20:00 Hospital B NATRIURETIC PEPTIDE 2022-12-22 Vaibhav Faulkner 13:20:00 Hospital [id number] TACROLIMUS LEVEL, RANDOM 2022-12-22 Vaibhav Faulkner ethodist 13:20:00 Hospital VITAMIN D 25 HYDROXY LEVEL 2022-12-22 Vaibhav Faulknero dist 13:20:00 Hospital PROSTATE SPECIFIC ANTIGEN 2022-12-22 Vaibhav Faulkner ist 13:20:00 Hospital TESTOSTERONE, TOTAL, IMMUNOASSAY 2022-12-22 Vaibhav Faulkner (FOR ADULT MALES) 13:20:00 Hospital CYTOMEGALOVIRUS BY PCR 2022-12-22 Vaibhav Faulkner 13:20:00 Hospital PROTEIN, URINE, RANDOM 2022-12-22 Vaibhav Faulkner 13:20:00 Hospital CREATININE LEVEL 2022-12-22 Ebenezer, Ashrith Islam 13:20:00 Hospital IMMUNOGLOBULIN G 2022-12-22 Vaibhav Faulknerist 13:20:00 Hospital ALBUMIN WITH CREATININE AND 2022-12-22 Vaibhav Faulkner Meth odist RATIO, RANDOM URINE 13:20:00 Hospital PROTHROMBIN TIME WITH INR 2022-12-22 Vaibhav Faulkner Method ist 13:20:00 Hospital ESTIMATED GFR 2022-12-22 Vaibhav Faulkner 13:20:00 Hospital DONOR SPECIFIC ANTIBODY 2022-12-22 Vaibhav Faulkneris t 13:20:00 Hospital TTE COMPLETE, WO CONTRAST, W 2022-12-22 Vaibhav Faulkner Met hodist DOPPLER ([id number]) 12:37:25 Hospital CBC WITH PLATELET AND 2022-11-10 Britney Maloney DIFFERENTIAL 17:34:00 [facility] COMPREHENSIVE METABOLIC PANEL 2022-11-10 Britney Maloney Me thodist 17:34:00 [facility] HEMOGLOBIN A1C 2022-11-10 Haider Britney Islam 17:34:00 [facility] VITAMIN D 25 HYDROXY LEVEL 2022-11-10 RadhaBritney Metho dist 17:34:00 [facility] ALBUMIN WITH CREATININE AND 2022-11-10 Britney Maloney Meth odist RATIO, RANDOM URINE 17:34:00 [facility] LIPID PANEL 2022-11-10 Radha Britney Islam 17:34:00 [facility] T4, FREE 2022-11-10 Haider Britney Islam 17:34:00 [facility] THYROID STIMULATING HORMONE 2022-11-10 RadhaBritney Meth odist 17:34:00 [facility] RAD ONC COURSE SUMMARY 2022-11-02 Provider, Unknown Methodi st 21:58:37 Hospital RAD ONC DAILY TREATMENT 2022-11-02 Provider, Unknown Method ist 17:47:44 Hospital RAD ONC DAILY TREATMENT 2022-10-30 Provider, Unknown Method ist 17:54:31 Hospital RAD ONC DAILY TREATMENT 2022-10-28 Provider, Unknown Method ist 17:47:03 Hospital RAD ONC DAILY TREATMENT 2022-10-26 Provider, Unknown Method ist 17:52:02 Hospital RAD ONC DAILY TREATMENT 2022-10-22 Provider, Unknown Method ist 18:04:45 Hospital COMPREHENSIVE METABOLIC PANEL 2022-10-15 Vaibhav Faulkner thodist 16:47:00 Hospital CBC HEMOGRAM 2022-10-15 Vaibhav Faulkner 16:47:00 Hospital [id number] TACROLIMUS LEVEL, RANDOM 2022-10-15 Vaibhav Faulkner ethodist 16:47:00 Hospital FK506 TACROLIMUS LEVEL, RANDOM 2022-09-30 Steph Faulknerderrek Bishop ethodist 15:44:00 Hospital COMPREHENSIVE METABOLIC PANEL 2022-09-30 Ebenezer Vaibhav Mcdonald thodist 15:44:00 Hospital POTASSIUM LEVEL 2022-09-25 Farhad Loweist 18:49:00 [facility] POC GLUCOSE 2022-09-25 Savannah Blank 16:50:00 Hospital POC GLUCOSE 2022-09-25 Savannah Blank 14:39:00 [facility] CBC WITH PLATELET AND 2022-09-25 Manjeet Mishra DIFFERENTIAL 11:32:00 [facility] BASIC METABOLIC PANEL 2022-09-25 Manjeet Mishra 11:32:00 [facility] [id number] TACROLIMUS LEVEL, RANDOM 2022-09-25 Manjeet Mishra ethodist 11:32:00 [facility] MAGNESIUM LEVEL 2022-09-25 Farhad Lowe 11:32:00 [facility] PHOSPHORUS LEVEL 2022-09-25 Farhad Lowe 11:32:00 [facility] PROCALCITONIN 2022-09-25 Angel Luis Mejia 11:32:00 Hospital C-REACTIVE PROTEIN 2022-09-25 Angel Luis Mejia 11:32:00 [facility] ESTIMATED GFR 2022-09-25 Manjeet Mishra 11:32:00 [facility] POC GLUCOSE 2022-09-25 Savannah lBank 03:21:00 Hospital POC GLUCOSE 2022-09-24 Savannah Blank 23:09:00 Hospital DURABLE MEDICAL EQUIPMENT 2022-09-24 Angel Luis Mejia 19:20:21 Hospital POC GLUCOSE 2022-09-24 Savannah Blank 18:29:00 Hospital POC GLUCOSE 2022-09-24 Savannah Blank 14:31:00 Hospital METHICILLIN-RESISTANT 2022-09-24 Palomo Frias STAPHYLOCOCCUS AUREUS (MRSA), FREDDIE 11:38:00 [facility] [id number] TACROLIMUS LEVEL, RANDOM 2022-09-24 Palomo Frias 11:38:00 [facility] CBC WITH PLATELET AND 2022-09-24 Manjeet Mishra DIFFERENTIAL 09:08:00 [facility] BASIC METABOLIC PANEL 2022-09-24 Manjeet Mishra 09:08:00 [facility] [id number] TACROLIMUS LEVEL, RANDOM 2022-09-24 Manjeet Mishra 09:08:00 [facility] MAGNESIUM LEVEL 2022-09-24 Farhad Lowe Islam 09:08:00 [facility] PHOSPHORUS LEVEL 2022-09-24 Farhad Lowe Islam 09:08:00 [facility] OSMOLALITY, SERUM 2022-09-24 Angel Luis Mejia 09:08:00 [facility] ESTIMATED GFR 2022-09-24 Manjeet Mishra 09:08:00 [facility] POC GLUCOSE 2022-09-24 Savannah Blank 03:08:00 Hospital POC GLUCOSE 2022-09-24 Savannah Blank 00:33:00 Hospital POC GLUCOSE 2022-09-23 Savannah Blank 18:32:00 Hospital POC GLUCOSE 2022-09-23 Savannah Blank 14:30:00 Hospital CBC WITH PLATELET AND 2022-09-23 Savannah Blank DIFFERENTIAL 10:42:00 Hospital COMPREHENSIVE METABOLIC PANEL 2022-09-23 Savannah Blankodist 10:42:00 Hospital FK506 TACROLIMUS LEVEL, RANDOM 2022-09-23 Palomo Frias 10:42:00 [facility] CYTOMEGALOVIRUS BY PCR 2022-09-23 Manjeet Mishra 10:42:00 [facility] IMMUNOGLOBULIN G 2022-09-23 Manjeet Mishra 10:42:00 [facility] PHENYTOIN LEVEL 2022-09-23 Yash Fontaine 10:42:00 [facility] FREE PHENYTOIN LEVEL 2022-09-23 Yash Fontaine 10:42:00 Hospital MAGNESIUM LEVEL 2022-09-23 Farhad Lowe 10:42:00 [facility] PHOSPHORUS LEVEL 2022-09-23 Farhad Lowe 10:42:00 [facility] BILIRUBIN DIRECT 2022-09-23 Manjeet Mishra 10:42:00 [facility] ESTIMATED GFR 2022-09-23 Savannah Blank 10:42:00 Hospital DONOR SPECIFIC ANTIBODY 2022-09-23 Manjeet Mishra t 10:42:00 [facility] POC GLUCOSE 2022-09-23 Savannah Blank 10:25:00 Hospital POC GLUCOSE 2022-09-23 Savannah Blank 09:16:00 Hospital POC GLUCOSE 2022-09-23 Savannah Blank 08:15:00 Hospital POC GLUCOSE 2022-09-23 Savannah Blank 07:58:00 Hospital POC GLUCOSE 2022-09-23 Savannah Blank 03:23:00 Hospital POC GLUCOSE 2022-09-23 Savannah Blank 00:29:00 Hospital LACTIC ACID LEVEL 2022-09-22 Manjeet Mishra 23:26:00 [facility] POC GLUCOSE 2022-09-22 Savannah Blank 18:18:[address] CHEST WO CONTRAST 2022-09-22 Manjeet Mishra 17:52:[address] [facility] [address] HEAD WO CONTRAST 2022-09-22 Manjeet Mishra 17:52:02 [facility] TTE COMPLETE, W CONTRAST, W 2022-09-22 Leo Cadet DOPPLER ([id number]) 15:30:00 [facility] POC GLUCOSE 2022-09-22 Savannah Blank 14:26:00 Hospital POC GLUCOSE 2022-09-22 Savannah Blank 12:36:00 Hospital FK506 TACROLIMUS LEVEL, RANDOM 2022-09-22 Palomo Frias 12:19:00 [facility] POC GLUCOSE 2022-09-22 Savannah Blank 12:00:00 Hospital CBC WITH PLATELET AND 2022-09-22 Savannah Blank DIFFERENTIAL 10:07:00 Hospital COMPREHENSIVE METABOLIC PANEL 2022-09-22 Savannah Blank thodist 10:07:00 Hospital [id number] TACROLIMUS LEVEL, TROUGH 2022-09-22 Alicia Blank ethodist 10:07:00 Hospital ESTIMATED GFR 2022-09-22 Savannah Blank 10:07:00 Hospital POC GLUCOSE 2022-09-22 Savannah Blank 03:15:00 Hospital BLOOD CULTURE, AEROBIC & 2022-09-22 Nadira Corey odist ANAEROBIC 01:14:00 [facility] BLOOD CULTURE, AEROBIC & 2022-09-22 Nadira Corey Meth odist ANAEROBIC 01:12:00 [facility] POC GLUCOSE 2022-09-22 Savannah Blank 00:00:00 [facility] TROPONIN T 2022-09-21 Leo Cadet 22:36:[address] [facility] [address] RENAL STONE PROTOCOL 2022-09-21 Nadira Coreyo dist 21:14:18 [facility] TROPONIN T 2022-09-21 Leo Cadet 19:07:00 [facility] POC GLUCOSE 2022-09-21 Savannah Blank 18:35:00 Hospital TROPONIN T 2022-09-21 Leo Cadet 14:59:00 [facility] ECG 12-LEAD 2022-09-21 Leo Cadet 14:30:33 [facility] URINE CULTURE 2022-09-21 Savannah Blank 11:39:00 Hospital URINALYSIS SCREEN AND MICROSCOPY, 2022-09-21 Savannah Blank WITH REFLEX TO CULTURE 11:39:00 Hospital B NATRIURETIC PEPTIDE 2022-09-21 Savannah Blnak 10:19:00 Hospital CBC WITH PLATELET AND 2022-09-21 Savannah Blank DIFFERENTIAL 10:18:00 Hospital SEDIMENTATION RATE 2022-09-21 Savannah Blank 10:18:00 Hospital RESPIRATORY PATHOGEN PANEL WITH 2022-09-21 Al Cadet COVID-19 RT-PCR 10:17:00 [facility] [id number] TACROLIMUS LEVEL, TROUGH 2022-09-21 Glenn Cadet Islam 10:15:00 [facility] LIPASE LEVEL 2022-09-21 Leo Cadetist 10:15:00 [facility] COMPREHENSIVE METABOLIC PANEL 2022-09-21 Savannah Blank thodist 10:15:00 Hospital C-REACTIVE PROTEIN 2022-09-21 Savannah Blank 10:15:00 Hospital LACTIC ACID LEVEL 2022-09-21 Savannah Blank 10:15:00 Hospital LDH 2022-09-21 Savannah Blank 10:15:00 Hospital PROCALCITONIN 2022-09-21 Savannah Blank 10:15:00 Hospital TROPONIN T 2022-09-21 Savannah Blank 10:15:00 Hospital ESTIMATED GFR 2022-09-21 Savannah Blank 10:15:00 Hospital ESTIMATED GFR 2022-09-21 Savannah Blank 09:38:00 Hospital XR CHEST 1 VW PORTABLE 2022-09-21 Savannah Blank 08:37:45 Hospital POC GLUCOSE 2022-09-21 Savannah Blank 06:42:00 Hospital MRI ABDOMEN W WO CONTRAST 2022-09-02 Tracy Bailey dist 17:00:00 Hospital ALPHA FETOPROTEIN 2022-09-02 Tracy Bailey 14:50:00 Hospital CBC WITH PLATELET AND 2022-09-02 Tracy Bailey DIFFERENTIAL 14:50:00 Hospital COMPREHENSIVE METABOLIC PANEL 2022-09-02 Tracy Bailey ethodist 14:50:00 Hospital BILIRUBIN DIRECT 2022-09-02 Tracy Bailey 14:50:00 Hospital MAGNESIUM LEVEL 2022-09-02 Tracy Bailey 14:50:00 Hospital PROTHROMBIN TIME WITH INR 2022-09-02 Tracy Bailey dist 14:50:00 Hospital HEPATOCELLULAR CARCINOMA MARKER 2022-09-02 Tracy Bailey PANEL 14:50:00 Hospital CANCER ANTIGEN 19-9 2022-09-02 Tracy Bailey 14:50:00 Hospital ESTIMATED GFR 2022-09-02 Tracy Bailey 14:50:00 Hospital MRI ABDOMEN W WO CONTRAST 2022-06-03 Yoselyn Margaret Method ist 16:05:[address] CHEST WO CONTRAST 2022-06-03 Margaret Topete Islam 14:33:00 Hospital COMPREHENSIVE METABOLIC PANEL 2022-06-03 Margaret Topete Me thodist 13:37:00 Hospital BILIRUBIN DIRECT 2022-06-03 Yoselyn Margaret Islam 13:37:00 Hospital PROTHROMBIN TIME WITH INR 2022-06-03 Yoselyn Margaret Method ist 13:37:00 Hospital HEPATOCELLULAR CARCINOMA MARKER 2022-06-03 Yoselyn Margaret Islam PANEL 13:37:00 Hospital ALPHA FETOPROTEIN 2022-06-03 Karl Topeteha Islam 13:37:00 Hospital ESTIMATED GFR 2022-06-03 Yoselyn Margaret Islam 13:37:00 [facility] CBC WITH PLATELET AND 2022-05-01 Haider, Britney Islam DIFFERENTIAL 15:02:00 [facility] COMPREHENSIVE METABOLIC PANEL 2022-05-01 Britney Maloney Me thodist 15:02:00 [facility] HEMOGLOBIN A1C 2022-05-01 Haider, Britney Islam 15:02:00 [facility] VITAMIN D 25 HYDROXY LEVEL 2022-05-01 [facility], Britney Metho dist 15:02:00 [facility] MICROALBUMIN / CREATININE URINE 2022-05-01 Radha, Britney Islam RATIO 15:02:00 [facility] LIPID PANEL 2022-05-01 Radha, Britney Islam 15:02:00 [facility] T4, FREE 2022-05-01 Haider Britney Islam 15:02:00 [facility] THYROID STIMULATING HORMONE 2022-05-01 [facility], [facility] Meth odist 15:02:00 [facility] CBC WITH PLATELET AND 2022-05-01 Radhahu, Britney Islam DIFFERENTIAL 15:02:00 [facility] PATHOLOGY BIOPSY INTERPRETATION 2022-03-17 [facility] 22:20:00 [facility] NM BONE SCAN WHOLE BODY 2022-02-[address] 17:34:00 Hospital MRI ABDOMEN W WO CONTRAST 2022-02-25 Tracy Bailey Metho dist 16:05:00 Hospital COMPREHENSIVE METABOLIC PANEL 2022-02-25 Tracy Bailey ethodist 13:40:00 Hospital BILIRUBIN DIRECT 2022-02-25 Tracy Bailey 13:40:00 Hospital PROTHROMBIN TIME WITH INR 2022-02-25 Tracy Bailey [facility] 13:40:00 Hospital HEPATOCELLULAR CARCINOMA MARKER 2022-02-25 Tracy Bailey PANEL 13:40:00 Hospital ESTIMATED GFR 2022-02-25 Tracy Bailey 13:40:00 [facility] PATHOLOGY BIOPSY INTERPRETATION 2022-02-09 [facility] 16:10:00 [place] [facility] OR Y-90 PHASE 2 SPECT 2022-01-21 Tracy Bailey 20:43:00 [facility] NM Y90 THERASPHERES THERAPY 2022-01-21 Tracy Bailey [facility]odist 20:42:36 Hospital IR RADIOEMBOLIZATION 2022-01-21 Tracy Bailey 17:05:00 Hospital IR 3D RECON SLICES SNAPSHOTS 2022-01-21 Tracy Bailey Ia [facility] RDMPS 17:05:00 Hospital POC GLUCOSE 2022-01-21 Tracy Bailey 16:41:00 Hospital POC GLUCOSE 2022-01-21 Tracy Bailey 13:42:00 Hospital NM Y-90 PHASE 1 SPECT 2022-01-12 Tracy Bailey 18:51:26 Hospital IR 3D RECON SLICES SNAPSHOTS 2022-01-12 Tracy Bailey thodist RDMPS 18:07:38 Hospital IR RADIOEMBOLIZATION 2022-01-12 Tracy Bailey 18:04:00 Hospital POC GLUCOSE 2022-01-12 Tracy Bailey 13:28:00 Hospital MRI ABDOMEN W WO CONTRAST 2021-12-25 Wolfgang Ibarra ist 19:28:00 Hospital MRI PELVIS W WO CONTRAST 2021-12-[address] 19:02:00 Hospital CBC WITH PLATELET AND 2021-12-25 Tracy Bailey DIFFERENTIAL 16:50:00 Hospital COMPREHENSIVE METABOLIC PANEL 2021-12-25 Tracy Bailey [facility]ist 16:50:00 Hospital PROTHROMBIN TIME WITH INR 2021-12-25 Tracy Baileyo dist 16:50:00 Hospital ESTIMATED GFR 2021-12-25 Tracy Bailey 16:50:00 Hospital BILIRUBIN DIRECT 2021-12-25 Tracy Bailey 16:50:00 Hospital XR CHEST 1 VW 2021-11-26 Smooth Brasher Islam 16:18:00 Hospital SURGICAL PATHOLOGY REQUEST 2021-11-26 Tracy Bailey odist 16:13:[address] NEEDLE BIOPSY NO CONTRAST 2021-11-26 Tracy Bailey thodist 16:10:29 Hospital CYTOLOGY (NON-GYNECOLOGICAL) 2021-11-26 Tracy Bailey thodist REQUEST 15:15:00 Hospital POC GLUCOSE 2021-11-26 Tracy Bailey 13:52:00 [facility] COMPREHENSIVE METABOLIC PANEL 2021-11-18 [facility] 14:02:00 [facility] CBC WITH PLATELET AND 2021-11-18 Yash myers DIFFERENTIAL 14:02:00 [facility] FK506 TACROLIMUS LEVEL, RANDOM 2021[facility]-18 [facility]00 [facility] POC GLUCOSE 2021-11-15 Janet Zendejas 19:40:00 Hospital POC GLUCOSE 2021-11-15 Janet Zendejas 15:23:00 Hospital HC COMPLETE BLD COUNT W/AUTO DIFF 2021-11-15 Timoteo Blank 11:22:00 [facility] FK506 TACROLIMUS LEVEL, TROUGH 2021-11-15 Jodie Mike 11:22:00 [facility] ALPHA FETOPROTEIN 2021-11-15 Maria Fernanda Rose 11:22:00 Hospital CANCER ANTIGEN 19-9 2021-11-15 Maria Fernanda Rose 11:22:00 Hospital CARCINOEMBRYONIC ANTIGEN (CEA) 2021-11-15 Maria Fernanda Rose 11:22:00 Hospital BASIC METABOLIC PANEL 2021-11-15 Farhad Lowe 11:22:00 [facility] MAGNESIUM LEVEL 2021-11-15 Farhad Lowe 11:22:00 [facility] PHOSPHORUS LEVEL 2021-11-15 Farhad Lowe Islam 11:22:00 [facility] HEPATIC FUNCTION PANEL 2021-11-15 Maria Fernanda Rose Bhumireji t 11:22:00 Hospital ESTIMATED GFR 2021-11-15 Farhad Lowe Islam 11:22:00 [facility] POC GLUCOSE 2021-11-15 Posjose Janet Islam 03:41:00 Hospital POC GLUCOSE 2021-11-15 Posjose Janet Islam 00:09:00 Hospital POC GLUCOSE 2021-11-14 Posjose Janet Islam 19:06:00 Hospital POC GLUCOSE 2021-11-14 Posjose Janet Islam 13:46:00 Hospital BASIC METABOLIC PANEL 2021-11-14 India Blank Islam 11:36:00 [facility] HC COMPLETE BLD COUNT W/AUTO DIFF 2021-11-14 Timoteo Blank Islam 11:36:00 [facility] MAGNESIUM LEVEL 2021-11-14 India Blank Islam 11:36:00 [facility] PHOSPHORUS LEVEL 2021-11-14 Farhad Lowe Islam 11:36:00 [facility] ESTIMATED GFR 2021-11-14 India Blank Islam 11:36:00 [facility] FK506 TACROLIMUS LEVEL, RANDOM 2021-11-14 Janet Zendejas ethodist 11:36:00 [facility] POC GLUCOSE 2021-11-14 Rashaun Zendejasuna Islam 03:02:[address] ABDOMEN PELVIS W CONTRAST 2021-11-14 Geraldine Braun hodist 00:52:44 Hospital POC GLUCOSE 2021-11-14 Posjose Janet Islam 00:20:00 Hospital POC GLUCOSE 2021-11-13 Posjose Janet Islam 18:39:00 Hospital BASIC METABOLIC PANEL 2021-11-13 PosRashaun garciauna Islam 15:05:00 Hospital HC COMPLETE BLD COUNT W/AUTO DIFF 2021-11-13 Posjose Janet Islam 15:05:00 Hospital ESTIMATED GFR 2021-11-13 Posani Janet Islam 15:05:00 Hospital FK506 TACROLIMUS LEVEL, TROUGH 2021-11-13 Janet Zendejas ethodist 15:05:00 Hospital POC GLUCOSE 2021-11-13 Janet Zendejas Islam 13:49:00 Hospital URINE CULTURE 2021-11-13 Kade Imesteban Islam 06:58:00 Hospital URINALYSIS SCREEN AND MICROSCOPY, 2021-11-13 Kade Imesteban Islam WITH REFLEX TO CULTURE 06:58:00 Hospital POC GLUCOSE 2021-11-13 Sri Soha Patterson Islam 05:33:00 Hospital ECG 12-LEAD 2021-11-13 Kade Imad Islam 04:05:22 Hospital COVID-19 QUALITATIVE RT-PCR 2021-11-13 Kade, Imesteban Meth odist 03:56:00 Hospital HC COMPLETE BLD COUNT W/AUTO DIFF 2021-11-13 Kade Imad Islam 03:54:00 Hospital PROTHROMBIN TIME WITH INR 2021-11-13 Kade, Imad Method ist 03:54:00 Hospital PARTIAL THROMBOPLASTIN TIME (PTT) 2021-11-13 Kade Imad Islam 03:54:00 Hospital COMPREHENSIVE METABOLIC PANEL 2021-11-13 Kade Imesteban Me thodist 03:54:00 Hospital LDH 2021-11-13 Kade, Imad Islam 03:54:00 Hospital PHOSPHORUS LEVEL 2021-11-13 Kade, Imad Islam 03:54:00 Hospital B NATRIURETIC PEPTIDE 2021-11-13 Kade, Imad Islam 03:54:00 Hospital ESTIMATED GFR 2021-11-13 Kade Imad Islam 03:54:00 Hospital ECG 12-LEAD 2021-10-28 Vaibhav Faulkner 16:38:48 Hospital CV CARDIAC PET STRESS TEST 2021-10-24 Vaibhav Faulknero dist 17:56:03 Hospital CV CARDIAC PET MYOCARDIAL 2021-10-24 Vaibhav Faulkner ist PERFUSION IMAGING 17:56:[address] CHEST WO CONTRAST ABDOMEN WO 2021-10-24 Vaibhav Faulkner CONTRAST PELVIS WO CONTRAST 15:52:31 Hosp ital URINE CULTURE 2021-10-24 Vaibhav Faulkner 14:17:00 Hospital BASIC METABOLIC PANEL 2021-10-24 Vaibhav Faulkner 14:17:00 Hospital HC COMPLETE BLD COUNT W/AUTO DIFF 2021-10-24 Ebenezer, Vaibhav Ramirez 14:17:00 Hospital PHOSPHORUS LEVEL 2021-10-24 [facility], Vaibhav Ramirez 14:17:00 Hospital MAGNESIUM LEVEL 2021-10-24 [facility], Vaibhav Ramirez 14:17:00 Hospital HEPATIC FUNCTION PANEL 2021-10-24 Ebenezer, Vaibhav Ramirez 14:17:00 Hospital LIPID PANEL 2021-10-24 Ebenezer, Vaibhav Ramirez 14:17:00 Hospital HEMOGLOBIN A1C 2021-10-24 [facility], Vaibhav Ramirez 14:17:00 Hospital IONIZED CALCIUM 2021-10-24 [facility], Vaibhav Ramirez 14:17:00 Hospital PARATHYROID HORMONE 2021-10-24 [facility], Vaibhav Ramirez 14:17:00 Hospital T3 2021-10-24 Ebenezer, Vaibhav Ramirez 14:17:00 Hospital T4 2021-10-24 Ebenezer, Vaibhav Ramirez 14:17:00 Hospital THYROID STIMULATING HORMONE 2021-10-24 [facility], Vaibhav Singleton odist 14:17:00 Hospital URIC ACID LEVEL 2021-10-24 [facility], Vaibhav Ramirez 14:17:00 Hospital LDH 2021-10-24 Ebenezer, Vaibhav Ramirez 14:17:00 Hospital TROPONIN T 2021-10-24 [facility], Vaibhav Ramirez 14:17:00 Hospital URINALYSIS SCREEN AND MICROSCOPY, 2021-10-24 [facility], Vaibhav Ramirez WITH REFLEX TO CULTURE 14:17:00 Hospital B NATRIURETIC PEPTIDE 2021-10-24 [facility] 14:[facility] Hospital FK506 TACROLIMUS LEVEL, RANDOM 2021-10-24 [facility] ethodist 14:17:00 Hospital VITAMIN D 25 HYDROXY LEVEL 2021-10-24 Vaibhav Faulknero dist 14:17:00 Hospital PROSTATE SPECIFIC ANTIGEN 2021-10-24 [facility], Vaibhav Tripathi ist 14:17:00 Hospital TESTOSTERONE 2021-10-24 Ebenezer, Vaibhav Ramirez 14:17:00 Hospital HEPATITIS ACUTE PANEL 2021-10-24 [facility], Vaibhav Ramirez 14:17:00 Hospital CYTOMEGALOVIRUS BY PCR 2021-10-24 Vaibhav Faulkner 14:17:00 Hospital ALBUMIN WITH CREATININE AND 2021-10-24 Vaibhav Faulkner Meth odist RATIO, RANDOM URINE 14:17:00 Hospital PROTHROMBIN TIME WITH INR 2021-10-24 Vaibhav Faulkner ist 14:17:00 Hospital PROTEIN, URINE, RANDOM 2021-10-24 Vaibhav Faulknerist 14:17:00 Hospital CREATININE LEVEL, URINE, RANDOM 2021-10-24 Vaibhav Faulkner 14:17:00 Hospital ESTIMATED GFR 2021-10-24 Vaibhav Faulkner 14:17:00 Hospital DONOR SPECIFIC ANTIBODY 2021-10-24 Vaibhav Faulkneris t 14:17:00 Hospital SARS-COV-2 COVID-19 2021-06-23 Doctor Unassigned, Universit y of VACCINE,0.5ML,IM (MODERNA) 15:25:49 [place] [facility] Diagnostic Colonoscopy 2019-09-27 Hernandez Bishop etro 00:00:00 Urology Gi- Egd 2018-09-27 [place] [facility] 00:00:00 Urology CARDIO- Heart Transplant 2006-09-27 [place] [facility] 00:00:00 Urology CARDIO- Pacemaker Insertion 2000-09-27 Ari [facility] 00:00:00 [facility]- [facility]- [facility] Removal of Gallbladder [facility] etro Urology GI- Inguinal Hernia [place] [facility] Urology Cardio- Cabg [facility] Urology Plan of Care Planned Activity Planned Date Details Comments Source Future Scheduled 2023-02-27 SHINGLES VACCINES (1 Met [facility] Test 10:05:14 of 2) [code = SHINGLES VACCINES (1 of 2)] Future Scheduled 2023-02-[address] [facility] Test 10:05:14 (1 of 3 - Risk 3-dose series) [code = HEPATITIS B VACCINES (1 of 3 - Risk 3-dose series)] Future Scheduled 2023-02-27 COVID-19 VACCINE (6 - Me [facility] Test 10:05:14 Booster for Moderna series) [code = COVID-19 VACCINE (6 - Booster for Moderna series)] Future Scheduled 2023-02-27 65+ [facility]14 VACCINE (2 - PPSV23 if available, else PCV20) [code = 65+ PNEUMOCOCCAL VACCINE (2 - PPSV23 if available, else PCV20)] Future Scheduled 2023-02-27 INFLUENZA VACCINE Method [facility] Test 10:05:14 [code = INFLUENZA VACCINE] Future Scheduled 2023-02-27 DIABETIC FOOT EXAM [facility] Test 10:05:14 [code = DIABETIC FOOT EXAM] Future Scheduled 2023-02-27 DIABETES: RETINAL EYE [facility] Test 10:05:14 EXAM [code = DIABETES: RETINAL EYE EXAM] Future Scheduled 2023-02-19 COVID-19 Vaccination [facility] Test 05:10:51 (6 - Moderna series) MD Lavelle perez [facility] [code = COVID-19 Center Vaccination (6 - Moderna series)] Future Scheduled 2022-11-13 SHINGLES VACCINES (1 Met [facility] Test 08:38:21 of 2) [code = SHINGLES VACCINES (1 of 2)] Future Scheduled 2022-11-13 HEPATITIS B VACCINES Met [facility] Test 08:38:21 (1 of 3 - Risk 3-dose series) [code = HEPATITIS B VACCINES (1 of 3 - Risk 3-dose series)] Future Scheduled 2022-11-13 COVID-19 VACCINE (6 - [facility] Test 08:38:21 Booster for Moderna series) [code = COVID-19 VACCINE (6 - Booster for Moderna series)] Future Scheduled 2022-11-13 INFLUENZA VACCINE Method [facility] Test 08:38:21 [code = INFLUENZA VACCINE] Future Scheduled 2022-11-13 65+ [facility] 08:38[facility]21 VACCINE (2 - PPSV23 if available, else PCV20) [code = 65+ PNEUMOCOCCAL VACCINE (2 - PPSV23 if available, else PCV20)] Future Scheduled 2022-11-13 DIABETIC FOOT EXAM [facility] Test 08:38:21 [code = DIABETIC FOOT EXAM] Future Scheduled 2022-11-13 DIABETES: RETINAL EYE Me [facility] Test 08:38:21 EXAM [code = DIABETES: RETINAL EYE EXAM] Future Scheduled 2022-11-03 SHINGLES VACCINES (1 [facility] Test 19:29:15 of 2) [code = SHINGLES VACCINES (1 of 2)] Future Scheduled 2022-11-03 HEPATITIS B VACCINES Met [facility] Test 19:29:15 (1 of 3 - Risk 3-dose series) [code = HEPATITIS B VACCINES (1 of 3 - Risk 3-dose series)] Future Scheduled 2022-11-[address] [facility] Hospital Test 19:29:15 [code = DIABETIC FOOT EXAM] Future Scheduled 2022-11-03 COVID-19 VACCINE (6 - Me [facility] Test 19:29:15 Booster for Moderna series) [code = COVID-19 VACCINE (6 - Booster for Moderna series)] Future Scheduled 2022-11-03 INFLUENZA VACCINE Method is Hospital Test 19:29:15 [code = INFLUENZA VACCINE] Future Scheduled 2022-11-03 65+ [facility] 19:29:15 VACCINE (2 - PPSV23 if available, else PCV20) [code = 65+ PNEUMOCOCCAL VACCINE (2 - PPSV23 if available, else PCV20)] Future Scheduled 2022-11-03 DIABETES: RETINAL EYE [facility] Test 19:29:15 EXAM [code = DIABETES: RETINAL EYE EXAM] Future Scheduled 2022-09-20 SHINGLES VACCINES (1 Met [facility] Test 09:00:49 of 2) [code = SHINGLES VACCINES (1 of 2)] Future Scheduled 2022-09-20 HEPATITIS B VACCINES Met [facility] Test 09:00:49 (1 of 3 - Risk 3-dose series) [code = HEPATITIS B VACCINES (1 of 3 - Risk 3-dose series)] Future Scheduled 2022-09-[address] [facility] Hospital Test 09:00:49 [code = DIABETIC FOOT EXAM] Future Scheduled 2022-09-20 COVID-19 VACCINE (6 - [facility] Hospital Test 09:00:49 Booster for Moderna series) [code = COVID-19 VACCINE (6 - Booster for Moderna series)] Future Scheduled 2022-09-20 INFLUENZA VACCINE Method [facility] Test 09:00:49 [code = INFLUENZA VACCINE] Future Scheduled 2022-09-20 65+ P[facility]UMOCOCCAL [facility] Test 09:00:49 VACCINE (2 - PPSV23 if available, else PCV20) [code = 65+ PNEUMOCOCCAL VACCINE (2 - PPSV23 if available, else PCV20)] Future Scheduled 2022-09-20 DIABETES: RETINAL EYE Me [facility] Test 09:00:49 EXAM [code = DIABETES: RETINAL EYE EXAM] Diagnostic Test 2022-02-10 urinalysis, dipstick [place] Pending 00:00:00 [code = urinalysis, Urology dipstick] Encounters Start End Encounter Admission Attending Care Care Encounter Source Date/Time Date/Time Type Type Clinicians Facility Department ID 2022-12-14 Outpatient [facility] [id number] [place] 13:00:45 [id number] [facility] 2022-12-08 Outpatient [facility] [id number] [place] 09:08:52 [id number] [facility] 2022-12-07 Outpatient [facility] [id number] [place] 08:15:40 [id number] [facility] 2022-11-25 Outpatient [facility] [id number] [place] 16:24:47 [id number] [facility] 2022-11-13 Outpatient [facility] [id number] [place] 08:38:10 [id number] [facility] 2022-07-27 Outpatient [facility] [id number] [place] 18:36:09 [id number] [facility] 2022-01-19 Outpatient SYSTEM, DANIELLA BREWER [id number] 07:08:45 PROVIDER Fidencio huggins 2021-07-04 [id number] [place] 10:47:11 [facility] 2023-06-18 2023-06-18 [facility] [id number] [place] 10:00:00 10:00:00 [facility] 2023-02-26 2023-02-26 Office Shahla, 1.2.840.1 [id number] Methodi 11:15:00 13:02:32 Visit Laurent 89546.1.1 9[address] [facility] 3.430.2.7 Hospit a .3.599637 l .8 2023-02-26 2023-02-26 Travel 1.2.840.1 1.2.630.848 [id number] Methodi 00:00:00 00:00:[address] 3.430.2.7 0.2.7.3.698 spita .3.621069 084.8 l .8 2023-02-26 2023-02-26 [facility] [id number] [place] 00:00:00 00:00:00 LAURENT [address] 2023-02-25 2023-02-25 Documentat Top[place], 1.2.840.1 [id number] Methodi 00:00:00 00:00:00 ion Tracy 09018.1.[address] 3.430.2.7 Hospit a .3.275193 l .8 2023-02-25 2023-02-25 Telephone Olya, 1.2.840.1 [id number] Methodi 00:00:00 00:00:[address] 3.430.2.7 Hospit a .3.257567 l .8 2023-02-24 2023-02-24 Telephone Jeff, 1.2.840.1 [id number] Methodi 00:00:00 00:00:[address] 3.430.2.7 Hospit a .3.032864 l .8 2023-02-15 2023-02-23 Office RockTrevon 1.2.840.1 [id number] Methodi 10:30:00 14:18:50 Visit Manjeet Mishra 20455.1.[address] 3.430.2.7 Hospit a .3.367766 l .8 2023-02-23 2023-02-23 Orders Ebenezer, 1.2.840.1 [id number] Methodi 00:00:00 00:00:00 Only Vaibhav 95947.1.[address] 3.430.2.7 Hospit a .3.050253 l .8 2023-02-18 2023-02-18 Documentat Jessie, 1.2.840.1 [id number] Methodi 00:00:00 00:00:00 ion Tracy 85439.1.[address] 3.430.2.7 Hospit a .3.959755 l .8 2023-02-17 2023-02-17 Office Pablo, 1.2.840.1 [id number] 86136 Methodi 10:30:00 11:21:03 Visit Bob 38703.1.[address] Objuliette 3.430.2.7 Hospit a .3.213440 l .8 2023-02-17 2023-02-17 Outpatient PABLO [facility] [id number] [place] 00:00:00 00:00:00 BOB [address] 2023-02-15 2023-02-15 Travel 1.2.840.1 1.2.495.289 6113 [id number] Methodi 00:00:00 00:00:[address] 3.430.2.7 0.2.7.3.698 Ho spita .3.238814 084.8 l .8 2023-02-15 2023-02-15 Outpatient [facility] [id number] [place] 00:00:00 00:00:00 [facility] [address] 2023-02-15 2023-02-15 Outpatient [facility] [id number] [place] 00:00:00 00:00:00 [facility] [address] 2023-02-08 2023-02-08 Orders Serban, 1.2.840.1 [id number] Methodi 00:00:00 00:00:00 Only Ophelia 29093.1.[address] 3.430.2.7 Hospit a .3.566760 l .8 2023-02-02 2023-02-05 Hospital Dylan Carey 1.2.840.1 [id number] Methodi 14:20:00 17:32:00 Angel Luis Wills 41714.1.[address] [place], [place] 3.430.2.7 Hospita .3.461024 l .8 2023-02-052023-02-05 Surgery [facility], 1.2.840.1 [id number] Methodi 11:00:00 12:00:[address].1.[address] 3.430.2.7 Hospit a .3.926758 l .8 2023-02-05 2023-02-05 Anesthesia Mark Madsen 1.2.840.1 [id number] Methodi 11:18:00 11:41:00 Event Kala Fallon 98432.1.[address] 3.430.2.7 Hospit a .3.254951 l .8 2023-02-02 2023-02-05 Inpatient [place] [id number] [place] [address] 00:00:00 00:00:[address] S[address] 2023-02-04 2023-02-04 Refill Jackelyn Bernal 1.2.840.1 [id number] Methodi 00:00:00 00:00:[address] 3.430.2.7 Hospit a .3.640172 l .8 2023-02-02 2023-02-02 Travel 1.2.840.1 1.2.879.707 2622 [id number] Methodi 00:00:00 00:00:[address] 3.430.2.7 0.2.7.3.698 Ho spita .3.178178 084.8 l .8 2023-02-02 2023-02-02 Documentat [facility], 1.2.840.1 [id number] Methodi 00:00:00 00:00:00 ion Tracy 25661.1.[address] 3.430.2.7 Hospit a .3.661640 l .8 2023-01-28 2023-01-28 [facility] Tejinder Ryan 1.2.840.1 [id number] Methodi 13:00:37 14:53:15 Encounter Gideon Vance 92189.1.[address] Lesly Boo 3.430.2.7 Hospita .3.002582 l .8 2023-01-28 2023-01-28 Outpatient RYAN [facility] [id number] [place] 00:00:00 00:00:00 EDWARD [address] 2023-01-24 2023-01-27 Emergency Alexis Lowe 1.2.840.1 [id number] Methodi 15:52:00 12:10:00 Angel Luis Mejia 32390.1.[address] 3.430.2.7 Hospit a .3.044182 l .8 2023-01-27 2023-01-27 Documentat Chris Angela 1.2.840.1 [id number] Methodi 00:00:00 00:00:[address] 3.430.2.7 Hospit a .3.085606 l .8 2023-01-24 2023-01-27 Outpatient ANGEL LUIS MEJIA [facility] [id number] [place] 00:00:00 00:00:[address] 2023-01-26 2023-01-26 Travel 1.2.840.1 1.2.406.938 3020 [id number] Methodi 00:00:00 00:00:[address] 3.430.2.7 0.2.7.3.698 spita .3.923751 084.8 l .8 2023-01-25 2023-01-25 [facility] Connor 1.2.840.1 [id number] Methodi 01:00:00 14:38:52 Encounter Tejinder Child 63140.1.[address] 3.430.2.7 Hospit a .3.730916 l .8 2023-01-25 2023-01-25 Documentat Jessie 1.2.840.1 [id number] Methodi 00:00:00 00:00:00 ion Tracy 52405.1.[address] 3.430.2.7 Hospit a .3.418192 l .8 2023-01-25 2023-01-25 Outpatient CONNOR [facility] [id number] [place] 00:00:00 00:00:[address] EDWARD [address] 2023-01-24 2023-01-24 Travel 1.2.840.1 1.2.720.536 9715 [id number] Methodi 00:00:00 00:00:[address] 3.430.2.7 0.2.7.3.698 Ho spita .3.478423 084.8 l .8 2023-01-24 2023-01-24 Documentat Merhav, Nse 1.2.840.1 [id number] Methodi 00:00:00 00:00:[address] 3.430.2.7 Hospit a .3.824483 l .8 2023-01-22 2023-01-22 Hospital Ryan, 1.2.840.1 [id number] Methodi 10:17:30 23:59:00 Encounter Tejinder B. 31523.1.[address] 3.430.2.7 Hospit a .3.292915 l .8 2023-01-22 2023-01-22 Travel 1.2.840.1 1.2.259.326 7971 275259 Methodi 00:00:00 00:00:[address] 3.430.2.7 0.2.7.3.698 Ho spita .3.243148 084.8 l .8 2023-01-22 2023-01-22 Outpatient CONNOR [facility] [id number] [place] 00:00:00 00:00:00 EDWARD [address] 2023-01-13 2023-01-13 Telephone Shahla, 1.2.840.1 [id number] [id number] Methodi 00:00:00 00:00:[address] [place] 3.430.2.7 Hospit a .3.067767 l .8 2023-01-11 2023-01-11 Documentat [facility], 1.2.840.1 [id number] Methodi 00:00:00 00:00:00 ion Tracy 11270.1.[address] 3.430.2.7 Hospit a .3.028091 l .8 2022-12-25 2022-12-25 [facility], 1.2.840.1 [id number] 8989 Methodi 08:40:00 09:00:00 Visit Ashrith 73909.1.[address] 3.430.2.7 Hospit a .3.588002 l .8 2022-12-25 2022-12-25 Travel 1.2.840.1 1.2.980.228 6740 [id number] Methodi 00:00:00 00:00:[address] 3.430.2.7 0.2.7.3.698 Ho spita .3.468827 084.8 l .8 2022-12-25 2022-12-25 Outpatient [facility], [facility] [id number] [address] [place] [address] 00:00:00 00:00:00 [address]SHRITH [address] 2022-12-22 2022-12-22 [facility], 1.2.840.1 [id number] Methodi 10:00:00 23:59:00 Encounter Ashrith 05004.1.[address] 3.430.2.7 Hospit a .3.042600 l .8 2022-12-22 2022-12-22 [facility], 1.2.840.1 [id number] Methodi 09:00:00 09:59:00 Encounter Ashrith 69437.1.[address] 3.430.2.7 Hospit a .3.100613 l .8 2022-12-22 2022-12-22 [facility], 1.2.840.1 [id number] Methodi 06:39:18 08:59:00 Encounter Ashrith 85668.1.[address] 3.430.2.7 Hospit a .3.206550 l .8 2022-12-22 2022-12-22 Travel 1.2.840.1 1.2.708.244 7819 [id number] Methodi 00:00:00 00:00:[address] 3.430.2.7 0.2.7.3.698 Ho spita .3.574955 084.8 l .8 2022-12-22 2022-12-22 Outpatient [facility], [facility] [id number] [place] 00:00:00 00:00:00 ASHRITH [address] 2022-12-22 2022-12-22 Outpatient [facility] [id number] [address] [place] 00:00:00 00:00:[address] 2022-12-22 2022-12-22 Outpatient [facility] [id number] [place] 00:00:00 00:00:00 ASHRITH [address] 2022-12-22 2022-12-22 Outpatient [facility] [id number] [place] 00:00:00 00:00:00 ASHRITH [address] 2022-12-11 2022-12-11 Office [facility], [facility] 1.2.840.114 [id number] UT 09:45:00 10:02:56 Visit Benjamin MUELLER 350.1.13.58 H [facility] STATION 9.2.7.2.686 [facility] [id number] 7 2022-12-01 2022-12-01 Travel 1.2.840.1 1.2.373.686 6080 [id number] Methodi 00:00:00 00:00:[address] 3.430.2.7 0.2.7.3.698 Ho spita .3.031114 084.8 l .8 2022-11-30 2022-11-30 Documentat Jessie, 1.2.840.1 [id number] 085 [id number] Methodi 00:00:00 00:00:00 ion Tracy 23868.1.[address] 3.430.2.7 Hospit a .3.797648 l .8 2022-11-27 2022-11-27 Office [place], [facility] 1.2.840.114 [id number] UT 10:00:00 10:56:01 Visit Benjamin MUELLER 350.1.13.58 H [facility] STATION 9.2.7.2.686 [facility] [id number] 7 2022-11-18 2022-11-18 Refill Sadhu, 1.2.840.1 [id number] 8481 Methodi 00:00:00 00:00:[address] [place] 3.430.2.7 Hospit a .3.877564 l .8 2022-11-12 2022-11-12 Refill Sadhu, 1.2.840.1 [id number] 3297 Methodi 00:00:00 00:00:[address] [place] 3.430.2.7 Hospit a .3.284557 l .8 2022-11-12 2022-11-12 Refill Sadhu, 1.2.840.1 [id number] 5386 Methodi 00:00:00 00:00:[address] [place] 3.430.2.7 Hospit a .3.778011 l .8 2022-11-11 2022-11-11 Office Sadhu, 1.2.840.1 [id number] 1865 Methodi 13:00:00 15:53:11 Visit Britney 49562.1.[address] [place] 3.430.2.7 Hospit a .3.430981 l .8 2022-11-11 2022-11-11 Office Sadhu, 1.2.840.1 [id number] 8960 Methodi 13:00:00 15:53:11 Visit Britney 63658.1.[address] [place] 3.430.2.7 Hospit a .3.838467 l .8 2022-11-11 2022-11-11 Refill Sadhu, 1.2.840.1 [id number] 819497 8785 Methodi 00:00:00 00:00:[address] [place] 3.430.2.7 Hospit a .3.358445 l .8 2022-11-11 2022-11-11 Travel 1.2.840.1 1.2.722.085 9390 165288 Methodi 00:00:00 00:00:[address] 3.430.2.7 0.2.7.3.698 Ho spita .3.413524 084.8 l .8 2022-11-11 2022-11-11 Refill Sadhu, 1.2.840.1 [id number] 8200 Methodi 00:00:00 00:00:[address] [place] 3.430.2.7 Hospit a .3.730528 l .8 2022-11-11 2022-11-11 Travel 1.2.840.1 1.2.510.912 4453 144037 Methodi 00:00:00 00:00:[address] 3.430.2.7 0.2.7.3.698 Ho spita .3.668711 084.8 l .8 2022-11-10 2022-11-10 Refill Sadhu, 1.2.840.1 840465532 818298 3494 Methodi 00:00:00 00:00:[address] Leach 3.430.2.7 Hospit a .3.067410 l .8 2022-11-10 2022-11-10 Refill Ebenezer, 1.2.840.1 602237297 603182 9305 Methodi 00:00:00 00:00:[address] 3.430.2.7 Hospit a .3.561055 l .8 2022-11-10 2022-11-10 Orders Whaley, 1.2.840.1 182701424 015767 9515 Methodi 00:00:00 00:00:00 [address] Sapphire 65881.1.[address] 3.430.2.7 Hospit a .3.397713 l .8 2022-11-10 2022-11-10 Refill Sadhu, 1.2.840.1 271188618 714641 1578 Methodi 00:00:00 00:00:[address] [place]ach 3.430.2.7 Hospit a .3.907042 l .8 2022-11-10 2022-11-10 Refill Ebenezer, 1.2.840.1 031964833 992232 9761 Methodi 00:00:00 00:00:[address] 3.430.2.7 Hospit a .3.174042 l .8 2022-11-10 2022-11-10 Orders Whaley, 1.2.840.1 017221378 274865 5673 Methodi 00:00:00 00:00:00 Only Sapphire 58654.1.[address] 3.430.2.7 Hospit a .3.924392 l .8 2022-11-06 2022-11-06 Office Dmitri, 1.2.840.1 797649769 631371 4267 Methodi 11:20:00 12:18:57 Visit Stanley 17762.1.[address] 3.430.2.7 Hospit a .3.822606 l .8 2022-11-06 2022-11-06 Office Dmitri, 1.2.840.1 [id number] 575431 8124 Methodi 11:20:00 12:18:57 Visit Stanley 48116.1.[address] 3.430.2.7 Hospit a .3.193349 l .8 2022-11-06 2022-11-06 Refill Sadhu, 1.2.840.1 819088560 313787 2306 Methodi 00:00:00 00:00:[address] [place] 3.430.2.7 Hospit a .3.217423 l .8 2022-11-06 2022-11-06 Refill Rock, 1.2.840.1 968908879 989595 8297 Methodi 00:00:00 00:00:[address] 3.430.2.7 Hospit a .3.617979 l .8 2022-11-06 2022-11-06 Travel 1.2.840.1 1.2.657.778 1344 350458 Methodi 00:00:00 00:00:[address] 3.430.2.7 0.2.7.3.698 Ho spita .3.931241 084.8 l .8 2022-11-06 2022-11-06 Refill [facility], 1.2.840.1 [id number] 520239 8895 Methodi 00:00:00 00:00:[address] [place] 3.430.2.7 Hospit a .3.491154 l .8 2022-11-06 2022-11-06 Refill Rock, 1.2.840.1 285905856 708088 8577 Methodi 00:00:00 00:00:[facility] [address] 3.430.2.7 Hospit a .3.260840 l .8 2022-11-06 2022-11-06 Travel 1.2.840.1 1.2.360.024 4261 897635 Methodi 00:00:00 00:00:[address] 3.430.2.7 0.2.7.3.698 Ho spita .3.742270 084.8 l .8 2022-11-05 2022-11-05 Sammy Boo, 1.2.840.1 [id number] Methodi 00:00:00 00:00:00 Only Lesly 88593.1.[address] Kaela 3.430.2.7 Hospit a .3.699540 l .8 2022-11-05 2022-11-05 Sammy Boo, 1.2.840.1 752901457 2100 990315 Methodi 00:00:00 00:00:00 Only Lesly 47582.1.[address] Kaela 3.430.2.7 Hospit a .3.094244 l .8 2022-11-04 2022-11-04 Telephone Lafleur, 1.2.840.1 051684960 2100 065527 Methodi 00:00:00 00:00:[address] 3.430.2.7 Hospit a .3.270137 l .8 2022-11-04 2022-11-04 Telephone Miquel, 1.2.840.1 057884893 2100 678169 Methodi 00:00:00 00:00:[address] 3.430.2.7 Hospit a .3.502333 l .8 2022-11-02 2022-11-02 [facility] 1.2.840.1 812261213 21001 74148 Methodi 10:47:57 11:47:43 Encounter Tejinder ErwinAmari 54579.1.[address] 3.430.2.7 Hospit a .3.504151 l .8 2022-11-02 2022-11-02 Orders Provider, 1.2.840.1 [id number] 2099265 Methodi 00:00:00 00:00:00 Only Unknown 16307.1.[address] 3.430.2.7 Hospit a .3.163102 l .8 2022-11-02 2022-11-02 [facility] 1.2.840.1 776438997 21001 09969 [place] 00:00:00 00:00:00 Encounter EDCARMEN 00101.1.1 [address] .3.605046 .8 2022-11-02 2022-11-02 Orders Provider, 1.2.840.1 [id number] 2099 568472 Methodi 00:00:00 00:00:00 Only Unknown 24729.1.[address] 3.430.2.7 Hospit a .3.239851 l .8 2022-10-30 2022-10-30 [facility] Edward B. 1.2.840.1 05761 1011 [id number] Methodi 11:07:22 11:54:30 Encounter Kahlil Aranda 56270.1.[address] 3.430.2.7 Hospit a .3.172353 l .8 2022-10-30 2022-10-30 Orders Provider, 1.2.840.1 [id number] 2099 427953 Methodi 00:00:00 00:00:00 Only Unknown 81390.1.[address] 3.430.2.7 Hospit a .3.955612 l .8 2022-10-30 2022-10-30 [facility], 1.2.840.1 [id number] 05458 91999 [place] 00:00:00 00:00:00 Encounter EDCARMEN 86197.1.1 [address] .3.531211 .8 2022-10-30 2022-10-30 Orders Provider, 1.2.840.1 [id number] 2099 612856 Methodi 00:00:00 00:00:00 Only Unknown 60523.1.[address] 3.430.2.7 Hospit a .3.584844 l .8 2022-10-28 2022 [facility] 1.2.840.1 [id number] 47747 32245 Methodi 01:15:00 08:41:28 Encounter Danielcarmen Daneyll 14373.1.[address] 3.430.2.7 Hospit a .3.358490 l .8 2022-10-28 2022 [facility], 1.2.840.1 [id number] 32334 35069 [place] 00:00:00 00:00:00 Encounter EDCARMEN 41494.1.1 [address].7 [address] .3.625087 .8 2022-10-28 2022-10-28 [facility] Tejinder Ryan. 1.2.840.1 83580 1011 [id number] Methodi 10:59:22 11:47:02 Encounter Kahlil Aranda 72716.1.[address] 3.430.2.7 Hospit a .3.042823 l .8 2022-10-28 2022-10-28 Orders Provider, 1.2.840.1 [id number] 2099 424262 Methodi 00:00:00 00:00:00 Only Unknown 34419.1.[address] 3.430.2.7 Hospit a .3.214999 l .8 2022-10-28 2022-10-28 [facility] 1.2.840.1 022787172 54390 52907 [place] 00:00:00 00:00:00 Encounter TEJINDER 96749.1.1 [address] .3.811497 .8 2022-10-28 2022-10-28 Orders Provider, 1.2.840.1 [id number] 2099 188373 Methodi 00:00:00 00:00:00 Only Unknown 82143.1.[address] 3.430.2.7 Hospit a .3.976577 l .8 2022-10-26 2022-10-26 [facility] Tejinder Ryan 1.2.840.1 95566 1011 [id number] Methodi 11:57:19 16:17:18 Encounter Linda Lafleur 86893.1.[address] 3.430.2.7 Hospit a .3.728718 l .8 2022-10-26 2022-10-26 [facility] Ryan, 1.2.840.1 [id number] 40908 95811 Methodi 12:30:00 15:12:57 Encounter Tejinder Child 55767.1.[address] 3.430.2.7 Hospit a .3.894041 l .8 2022-10-26 [facility]22[facility]10-[facility] 1.2.840.1 [id number] 88737 69735 Methodi 11:05:07 11:52:01 Encounter Tejinder Child 28357.1.[address] 3.430.2.7 Hospit a .3.036899 l .8 2022-10-26 2022-10-26 Orders Provider, 1.2.840.1 [id number] 2100 504278 Methodi 00:00:00 00:00:00 Only Unknown 76343.1.[address] 3.430.2.7 Hospit a .3.807386 l .8 2022-10-26 2022-10-26 [facility], 1.2.840.1 [id number] 46789 55819 [place] 00:00:00 00:00:00 Encounter EDWARD 36902.1.[address] .3.284072 .8 2022-10-26 2022-10-26 [facility], 1.2.840.1 [id number] 21001 35470 [place] 00:00:00 00:00:00 Encounter EDWARD 46692.1.1 [address] .3.453824 .8 2022-10-26 2022-10-26 [facility], 1.2.840.1 [id number] 58078 23267 [place] 00:00:00 00:00:00 Encounter EDWARD 94867.1.1 [address] .3.221450 .8 2022-10-26 2022-10-26 Orders Provider, 1.2.840.1 [id number] 2100 405378 Methodi 00:00:00 00:00:00 Only Unknown 48956.1.[address] 3.430.2.7 Hospit a .3.110350 l .8 2022-10-23 2022-10-23 [facility] [id number] 017027 2438 Methodi 00:00:00 00:00:[address] [place] 3.430.2.7 Hospit a .3.720124 l .8 2022-10-23 2022-10-23 Refill Sadhu, 1.2.840.1 300300358 322652 1309 Methodi 00:00:00 00:00:[address] [place] 3.430.2.7 Hospit a .3.435930 l .8 2022-10-22 2022-10-22 [facility], 1.2.840.1 [id number] 48298 43083 Methodi 11:02:44 12:04:43 Encounter Edcarmen Hood. 78814.1.[address] 3.430.2.7 Hospit a .3.855278 l .8 2022-10-22 2022-10-22 Orders Provider, 1.2.840.1 [id number] 2099 794614 Methodi 00:00:00 00:00:00 Only Unknown 66355.1.[address] 3.430.2.7 Hospit a .3.094945 l .8 2022-10-22 2022-10-22 [facility], 1.2.840.1 [id number] 21001 80388 [place] 00:00:00 00:00:00 Encounter EDWARD 47507.1.1 [address] .3.331482 .8 2022-10-22 2022-10-22 Orders Provider, 1.2.840.1 [id number] 2099 311637 Methodi 00:00:00 00:00:00 Only Unknown 77794.1.[address] 3.430.2.7 Hospit a .3.818801 l .8 2022-10-21 2022-10-21 Travel 1.2.840.1 1.2.901.843 3921 562718 Methodi 00:00:00 00:00:[address] 3.430.2.7 0.2.7.3.698 Ho spita .3.918086 084.8 l .8 2022-10-21 2022-10-21 Refill Kade, 1.2.840.1 155568177 32424 12993 Methodi 00:00:00 00:00:[address] 3.430.2.7 Hospit a .3.066556 l .8 2022-10-21 2022-10-21 Refill Ebenezer, 1.2.840.1 174826840 770891 6025 Methodi 00:00:00 00:00:[address] 3.430.2.7 Hospit a .3.447662 l .8 2022-10-21 2022-10-21 Travel 1.2.840.1 1.2.260.088 5605 008083 Methodi 00:00:00 00:00:[address] 3.430.2.7 0.2.7.3.698 Ho spita .3.877573 084.8 l .8 2022-10-21 2022-10-21 Refill Kade, 1.2.840.1 [id number] 30523 09080 Methodi 00:00:00 00:00:[address] 3.430.2.7 Hospit a .3.938501 l .8 2022-10-21 2022-10-21 Refill Ebenezer, 1.2.840.1 093267243 717082 3954 Methodi 00:00:00 00:00:[address] 3.430.2.7 Hospit a .3.530306 l .8 2022-10-19 2022-10-19 Orders Topfer, 1.2.840.1 [id number] 100933 1270 Methodi 00:00:00 00:00:00 Only Tracy 92362.1.[address] 3.430.2.7 Hospit a .3.643593 l .8 2022-10-19 2022-10-19 Orders Topfer, 1.2.840.1 144719448 262508 8947 Methodi 00:00:00 00:00:00 Only Tracy 04280.1.[address] 3.430.2.7 Hospit a .3.718790 l .8 2022-10-15 2022-10-15 Travel 1.2.840.1 1.2.166.471 3346 714215 Methodi 00:00:00 00:00:[address] 3.430.2.7 0.2.7.3.698 Ho spita .3.575907 084.8 l .8 2022-10-15 2022-10-15 Travel 1.2.840.1 1.2.144.304 8785 979469 Methodi 00:00:00 00:00:[address] 3.430.2.7 0.2.7.3.698 Ho spita .3.619272 084.8 l .8 2022-10-14 2022-10-14 [facility] 1.2.840.1 [id number] 21001 35648 Methodi 12:32:27 15:21:[address] 3.430.2.7 Hospit a .3.572891 l .8 2022-10-14 2022-10-14 [facility] 1.2.840.1 [id number] 21001 38334 Methodi 10:30:00 14:47:23 Encounter Tejinder ErwinAmari 98503.1.[address] 3.430.2.7 Hospit a .3.462001 l .8 2022-10-14 2022-10-14 [facility] Tejinder Ryan 1.2.840.1 63282 1011 [id number] Methodi 08:21:21 09:10:52 Encounter Linda Lafleur 78054.1.[address] 3.430.2.7 Hospit a .3.724710 l .8 2022-10-14 2022-10-14 [facility] RYAN 1.2.840.1 [id number] 21001 06041 [place] 00:00:00 00:00:00 Encounter TEJINDER 64877.1.1 [address] .3.422819 .8 2022-10-14 2022-10-14 [facility] 1.2.840.1 [id number] 21001 05494 [place] 00:00:00 00:00:00 Encounter TEJINDER 57415.1.1 [address] .3.051031 .8 2022-10-14 2022-10-14 [facility] 1.2.840.1 [id number] 21001 28924 [place] 00:00:00 00:00:00 Encounter 32899.1.1 [address] .3.752046 .8 2022-10-12 2022-10-13 [facility] 1.2.840.1 [id number] 16212 11742 Methodi 14:38:13 09:34:13 Encounter Edcarmen B. 43032.1.[address] 3.430.2.7 Hospit a .3.250133 l .8 2022-10-12 2022-10-13 [facility] 1.2.840.1 [id number] 92263 [place] 00:00:00 00:00:00 Encounter EDCARMEN 78449.1.1 [address] .3.490091 .8 2022-10-12 2022-10-12 Travel 1.2.840.1 1.2.415.688 9861 249900 Methodi 00:00:00 00:00:[address] 3.430.2.7 0.2.7.3.698 Ho spita .3.134192 084.8 l .8 2022-10-12 2022-10-12 Telephone Wolfgang Ibarra 1.2.840.1 [id number] Methodi 00:00:00 00:00:[address] 3.430.2.7 Hospit a .3.373058 l .8 2022-10-12 2022-10-12 Travel 1.2.840.1 1.2.522.434 0271 584754 Methodi 00:00:00 00:00:[address] 3.430.2.7 0.2.7.3.698 Ho spita .3.622118 084.8 l .8 2022-10-12 2022-10-12 Telephone Wolfgang Ibarra 1.2.840.1 [id number] Methodi 00:00:00 00:00:[address] 3.430.2.7 Hospit a .3.997071 l .8 2022-10-09 2022-10-09 Orders Rideau, 1.2.840.1 [id number] 332839 3608 Methodi 00:00:00 00:00:00 Only Vero 62285.1.[address] 3.430.2.7 Hospit a .3.943489 l .8 2022-10-09 2022-10-09 Telephone Rideau, 1.2.840.1 [id number] 2100 373702 Methodi 00:00:00 00:00:[address] 3.430.2.7 Hospit a .3.625346 l .8 2022-10-09 2022-10-09 Orders Rideau, 1.2.840.1 684695517 647615 3825 Methodi 00:00:00 00:00:00 Only Vero 71479.1.[address] 3.430.2.7 Hospit a .3.068842 l .8 2022-10-09 2022-10-09 Telephone [place], 1.2.840.1 [id number] 2100 901547 Methodi 00:00:00 00:00:[address] 3.430.2.7 Hospit a .3.558518 l .8 2022-10-05 2022-10-07 Office Wolfgang Ibarra 1.2.840.1 [id number] 10178431 Methodi 16:30:00 10:55:[address] 3.430.2.7 Hospit a .3.665742 l .8 2022-10-05 2022-10-07 Office Wolfgang Ibarra 1.2.840.1 [id number] 15331845 Methodi 16:30:00 10:55:[address] 3.430.2.7 Hospit a .3.236684 l .8 2022-10-05 2022-10-05 Travel 1.2.840.1 1.2.783.472 7111 972388 Methodi 00:00:00 00:00:[address] 3.430.2.7 0.2.7.3.698 Ho spita .3.299036 084.8 l .8 2022-10-05 2022-10-05 Orders Topfer, 1.2.840.1 357273789 631861 5501 Methodi 00:00:00 00:00:00 Only Tracy 60513.1.[address] 3.430.2.7 Hospit a .3.339227 l .8 2022-10-05 2022-10-05 Travel 1.2.840.1 1.2.741.359 8333 067957 Methodi 00:00:00 00:00:[address] 3.430.2.7 0.2.7.3.698 Ho spita .3.136362 084.8 l .8 2022-10-05 2022-10-05 Orders Topfer, 1.2.840.1 839456594 017347 0620 Methodi 00:00:00 00:00:00 Only Tracy 02011.1.[address] 3.430.2.7 Hospit a .3.102100 l .8 2022-10-02 2022-10-02 Documentat Topfer, 1.2.840.1 [id number] 914 1302679 Methodi 00:00:00 00:00:00 ion Tracy 47054.1.[address] 3.430.2.7 Hospit a .3.160271 l .8 2022-10-02 2022-10-02 Documentat Topfer, 1.2.840.1 233041271 171 5620064 Methodi 00:00:00 00:00:00 ion Tracy 41122.1.[address] 3.430.2.7 Hospit a .3.874114 l .8 2022-10-02 2022-10-02 Documentat Topfer, 1.2.840.1 567344606 501 9186775 Methodi 00:00:00 00:00:00 ion Tracy 03803.1.[address] 3.430.2.7 Hospit a .3.495126 l .8 2022-10-02 2022-10-02 Documentat [facility], 1.2.840.1 338892704 091 7759023 Methodi 00:00:00 00:00:00 maria esther Stone 66101.1.[address] 3.430.2.7 Hospit a .3.029600 l .8 2022-10-01 2022-10-01 Telephone Serrano, 1.2.840.1 [id number] 05718022 Methodi 00:00:00 00:00:[address] 3.430.2.7 Hospit a .3.819308 l .8 2022-10-01 2022-10-01 [facility] [id number] [id number] Methodi 00:00:00 00:00:[address] 3.430.2.7 Hospit a .3.360748 l .8 2022-09-29 2022-09-29 [facility] [id number] 260 8738831 Methodi 00:00:00 00:00:00 maria esther Stone 29909.1.[address] 3.430.2.7 Hospit a .3.685323 l .8 2022-09-29 2022-09-29 [facility] 1.2.840.1 [id number] 288 6713872 Methodi 00:00:00 00:00:00 maria esther Stone 72816.1.[address] 3.430.2.7 Hospit a .3.218397 l .8 2022-09-20 2022-09-25 [facility], 1.2.840.1 [id number] 88031 64819 Methodi 23:12:00 16:16:00 Estefany Nuñez 84136.1.[address] 3.430.2.7 Hospit a .3.546442 l .8 2022-09-20 2022-09-25 [facility], 1.2.840.1 045768033 62597 94457 Methodi 23:12:00 16:16:00 Encounter Savannah 96264.1.[address] 3.430.2.7 Hospit a .3.971004 l .8 2022-02-25 2022-09-24 Office Tracy Bailey 1.2.840.1 9767717 33 [id number] Methodi 14:00:00 00:08:09 Visit Margaret Topete 58577.1.[address] 3.430.2.7 Hospit a .3.376597 l .8 2022-09-14 2022-09-14 Refill Ebenezer, 1.2.840.1 152865563 167512 0291 Methodi 00:00:00 00:00:[address] 3.430.2.7 Hospit a .3.395396 l .8 2022-09-14 2022-09-14 Refill Ebenezer, 1.2.840.1 041871150 656118 0126 Methodi 00:00:00 00:00:[address] 3.430.2.7 Hospit a .3.625567 l .8 2022-09-11 2022-09-11 Refill Bhimaraj, 1.2.840.1 393549062 2100 183646 Methodi 00:00:00 00:00:[address] 3.430.2.7 Hospit a .3.995321 l .8 2022-09-11 2022-09-11 Refill Bhimaraj, 1.2.840.1 575687615 2100 711490 Methodi 00:00:00 00:00:[address] 3.430.2.7 Hospit a .3.208717 l .8 2022-09-02 2022-09-08 Office Asked, No Pcp 1.2.840.1 [id number] [id number] Methodi 13:45:00 00:10:22 Visit Margaret Topete 65810.1.[address] 3.430.2.7 Hospit a .3.761379 l .8 2022-09-02 2022-09-08 Office Asked, No Pcp 1.2.840.1 [id number] [id number] Methodi 13:45:00 00:10:22 Visit Margaret Topete 38472.1.[address] 3.430.2.7 Hospit a .3.613905 l .8 2022-09-08 2022-09-08 Travel 1.2.840.1 1.2.856.439 7266 947468 Methodi 00:00:00 00:00:[address] 3.430.2.7 0.2.7.3.698 Ho spita .3.393835 084.8 l .8 2022-09-08 2022-09-08 Travel 1.2.840.1 1.2.909.584 6230 936030 Methodi 00:00:00 00:00:[address] 3.430.2.7 0.2.7.3.698 Ho spita .3.077386 084.8 l .8 2022-09-03 2022-09-03 Telephone Olya, 1.2.840.1 [id number] 2 [id number] Methodi 00:00:00 00:00:[address] 3.430.2.7 Hospit a .3.138035 l .8 2022-09-03 2022-09-03 Orders Olya 1.2.840.1 [id number] 598 9729949 Methodi 00:00:00 00:00:00 Only Romica 95317.1.[address] 3.430.2.7 Hospit a .3.575525 l .8 2022-09-03 2022-09-03 Chepe Dobson 1.2.840.1 [id number] 2 [id number] Methodi 00:00:00 00:00:[address] 3.430.2.7 Hospit a .3.021203 l .8 2022-09-03 2022-09-03 Orders Olya, 1.2.840.1 850759737 153 4080180 Methodi 00:00:00 00:00:00 Only Lefty 18758.1.[address] 3.430.2.7 Hospit a .3.775396 l .8 2022-09-02 2022-09-02 [facility], 1.2.840.1 [id number] 01892 Methodi 09:09:54 23:59:00 Encounter Tracy Gutierrez 43546.1.1 806 s t 3.430.2.7 Hospit a .3.245932 l .8 2022-09-02 2022-09-02 [facility] Leo, 1.2.840.1 [id number] 51852 Methodi 09:09:54 23:59:00 Encounter Tracy Gutierrez 59781.1.1 806 s t 3.430.2.7 Hospit a .3.373302 l .8 2022-09-02 2022-09-02 Travel 1.2.840.1 1.2.452.824 4076 023750 Methodi 00:00:00 00:00:[address] 3.430.2.7 0.2.7.3.698 Ho spita .3.620228 084.8 l .8 2022-09-02 2022-09-02 Outpatient [facility] [id number] [address] [place] 00:00:00 00:00:00 TRACY Katia Method i st 2022-09-02 2022-09-02 Travel 1.2.840.1 1.2.047.017 4092 149604 Methodi 00:00:00 00:00:[address] 3.430.2.7 0.2.7.3.698 Ho spita .3.826620 084.8 l .8 2022-07-09 2022-07-09 Office Dmitri, 1.2.840.1 [id number] 685671 8503 Methodi 13:20:00 13:40:00 Visit Stanley 01189.1.[address] 3.430.2.7 Hospit a .3.046975 l .8 2022-07-09 2022-07-09 Office Dmitri, 1.2.840.1 [id number] 550025 9490 Methodi 13:20:00 13:40:00 Visit Stanley 38792.1.[address] 3.430.2.7 Hospit a .3.635713 l .8 2022-07-09 2022-07-09 Travel 1.2.840.1 1.2.903.615 2708 918176 Methodi 00:00:00 00:00:[address] 3.430.2.7 0.2.7.3.698 Ho spita .3.767141 084.8 l .8 2022-07-09 2022-07-09 Travel 1.2.840.1 1.2.789.114 7080 119539 Methodi 00:00:00 00:00:[address] 3.430.2.7 0.2.7.3.698 Ho spita .3.076757 084.8 l .8 2022-07-06 2022-07-06 Travel 1.2.840.1 1.2.457.888 7437 013180 Methodi 00:00:00 00:00:[address] 3.430.2.7 0.2.7.3.698 Ho spita .3.349571 084.8 l .8 2022-07-06 2022-07-06 Travel 1.2.840.1 1.2.282.153 0530 058775 Methodi 00:00:00 00:00:[address] 3.430.2.7 0.2.7.3.698 Ho spita .3.162614 084.8 l .8 2022-07-02 2022-07-02 Refill Jose Luis, 1.2.840.1 [id number] 920170 3244 [employer] 00:00:00 00:00:00 Benjamin 38379.1.1 ity of 3.412.2.7 [place] .3.282942 MD Fitzpatrick8 [facility] 2022-07-02 2022-07-02 Refminerva Amaya, 1.2.840.1 [id number] 673528 4901 [employer] 00:00:00 00:00:00 Benjamin 11325.1.1 ity of 3.412.2.7 [place] .3.981982 .8 [facility] 2022-06-28 2022-06-28 Refminerva Maloney, 1.2.840.1 [id number] 963385 7147 Methodi 00:00:00 00:00:[address] [place] 3.430.2.7 Hospit a .3.725541 l .8 2022-06-28 2022-06-28 Refminerva Maloney, 1.2.840.1 [id number] 344031 0967 Methodi 00:00:00 00:00:[address] [place] 3.430.2.7 Hospit a .3.165376 l .8 2022-06-19 2022-06-19 Telephone Dmitri, 1.2.840.1 [id number] 2100 055744 Methodi 00:00:00 00:00:[address] 3.430.2.7 Hospit a .3.615542 l .8 2022-06-19 2022-06-19 Telephone Dmitri, 1.2.840.1 [id number] 2099 164886 Methodi 00:00:00 00:00:[address] 3.430.2.7 Hospit a .3.674473 l .8 2022-06-09 2022-06-09 Refill Minal, 1.2.840.1 [id number] 2100 505092 Methodi 00:00:00 00:00:[address] 3.430.2.7 Hospit a .3.619091 l .8 2022-06-09 2022-06-[address] [facility], 1.2.840.1 [id number] 2099 885651 Methodi 00:00:00 00:00:[address] 3.430.2.7 Hospit a .3.261987 l .8 2022-06-04 2022-06-[address] [facility], 1.2.840.1 [id number] 2100 495037 Methodi 00:00:00 00:00:[address] 3.430.2.7 Hospit a .3.839039 l .8 2022-06-04 2022-06-04 [facility], 1.2.840.1 [id number] 406 7349705 Methodi 00:00:00 00:00:00 Only Romica 82064.1.[address] 3.430.2.7 Hospit a .3.594225 l .8 2022-06-04 2022-06-04 [facility], 1.2.840.1 [id number] 2099 254444 Methodi 00:00:00 00:00:[address] 3.430.2.7 Hospit a .3.845939 l .8 2022-06-04 [facility]22[facility]-04 [facility].840[facility]1 [id number] 786 1549359 Methodi 00:00:00 00:00:00 Only Romica 68216.1.[address] 3.430.2.7 Hospit a .3.252546 l .8 2022-06-03 2022-06-03 [facility], 1.2.840.1 [id number] 69779 07792 Methodi :31:07 23:59:00 Encounter Margaret 42288.1.[address] 3.430.2.7 Hospit a .3.245483 l .8 2022-06-03 2022-06-03 [facility], 1.2.840.1 [id number] 84846 Methodi :31:07 23:59:00 Encounter Margaret 75129.1.[address] 3.430.2.7 Hospit a .3.871914 l .8 2022-06-03 2022-06-03 Office Karl Topeteha 1.2.840.1 [id number] Methodi 14:00:00 14:15:00 Visit Tracy Bailey Matt 07604.1.[address] 3.430.2.7 Hospit a .3.052891 l .8 2022-06-03 2022-06-03 [facility]1 [id number] Methodi 14:00:00 14:15:00 Visit Leo Tracy Gutierrez 29844.1.[address] 3.430.2.7 Hospit a .3.828793 l .8 2022-06-03 2022-06-03 [facility], 1.2.840.1 [id number] 59868 06109 Methodi 08:44:01 09:30:00 Encounter Margaret [address]232.1.[address] 3.430.2.7 Hospit a .3.654022 l .8 2022-06-03 2022-06-03 [facility], 1.2.840.1 [id number] 42433 93691 Methodi 08:44:01 09:30:00 Encounter Margaret 71106.1.[address] 3.430.2.7 Hospit a .3.046727 l .8 2022-06-03 2022-06-03 Travel 1.2.840.1 1.2.648.222 4958 680655 Methodi 00:00:00 00:00:[address] 3.430.2.7 0.2.7.3.698 spita .3.172825 084.8 l .8 2022-06-03 2022-06-03 Outpatient [facility] [id number] [address] [place] 00:00:00 00:00:[address]ARET [address] 2022-06-03 2022-06-03 Travel 1.2.840.1 1.2.561.143 8006 729924 Methodi 00:00:00 00:00:[address] 3.430.2.7 0.2.7.3.698 Ho spita .3.596096 084.8 l .8 2022-05-29 2022-05-29 [facility] Jose Luis [facility] 4 1.2.668.046 9421 30415 [place] 10:15:00 10:42:21 Visit Benjamin 350.1.13.58 He alth 9.2.7.2.686 900.6983670 1 2022-05-25 2022-05-25 Travel 1.2.840.1 1.2.589.724 0365 354341 Methodi 00:00:00 00:00:[address] 3.430.2.7 0.2.7.3.698 Ho spita .3.056817 084.8 l .8 2022-05-25 2022-05-25 Travel 1.2.840.1 1.2.178.146 4699 630844 Methodi 00:00:00 00:00:[address] 3.430.2.7 0.2.7.3.698 Ho spita .3.407185 084.8 l .8 2022-05-06 2022-05-06 [facility] 1.2.840.1 [id number] 068 2589111 Methodi 11:20:00 11:20:00 ne Britney 92434.1.[address] [place] 3.430.2.7 Hospit a .3.631463 l .8 2022-05-06 2022-05-06 [facility], 1.2.840.1 [id number] 657 6864784 Methodi 11:20:00 11:20:00 ne Britney 11532.1.[address] [place] 3.430.2.7 Hospit a .3.285639 l .8 2022-05-04 2022-05-04 Refill Minal, 1.2.840.1 [id number] 2100 076454 Methodi 00:00:00 00:00:[address] 3.430.2.7 Hospit a .3.003727 l .8 2022-05-04 2022-05-04 Refill Minal, 1.2.840.1 [id number] 2099 616983 Methodi 00:00:00 00:00:[address] 3.430.2.7 Hospit a .3.522671 l .8 2022-04-23 2022-04-23 Orders Whaley, 1.2.840.1 [id number] 976186 1856 Methodi 00:00:00 00:00:00 Only Sapphire 87529.1.[address] 3.430.2.7 Hospit a .3.419638 l .8 2022-04-23 2022-04-23 Orders Judd, 1.2.840.1 [id number] 043073 6191 Methodi 00:00:00 00:00:00 [address] Sapphire 03033.1.[address] 3.430.2.7 Hospit a .3.964981 l .8 2022-04-22 2022-04-22 Outpatient Lapin_S [facility] [id number] 00:00:00 00:00:00 570[address] [facility] 2022-04-03 2022-04-03 Orders Karl, 1.2.840.1 [id number] 735 [id number] Methodi 00:00:00 00:00:00 Only Rebecca 45317.1.[address] 3.430.2.7 Hospit a .3.771644 l .8 2022-04-03 2022-04-03 Orders Karl, 1.2.840.1 [id number] 526 [id number] Methodi 00:00:00 00:00:00 Only Rebecca 03220.1.[address] 3.430.2.7 Hospit a .3.881279 l .8 2022-03-29 2022-03-29 Refill Haider, 1.2.840.1 [id number] 394940 5005 Methodi 00:00:00 00:00:[address] [place] 3.430.2.7 Hospit a .3.699246 l .8 2022-03-29 2022-03-29 Refill Sadhu, 1.2.840.1 [id number] 331264 2329 Methodi 00:00:00 00:00:[address] [place] 3.430.2.7 Hospit a .3.003737 l .8 2022-03-26 2022-03-26 Refill Sadhu, 1.2.840.1 [id number] 794486 1341 Methodi 00:00:00 00:00:[address] [place] 3.430.2.7 Hospit a .3.988542 l .8 2022-03-26 2022-03-26 Refill Sadhu, 1.2.840.1 [id number] 201821 9334 Methodi 00:00:00 00:00:[address] [place] 3.430.2.7 Hospit a .3.359932 l .8 2022-03-20 2022-03-20 Travel 1.2.840.1 1.2.544.663 9596 838782 Methodi 00:00:00 00:00:[address] 3.430.2.7 0.2.7.3.698 Ho spita .3.140325 084.8 l .8 2022-03-20 2022-03-20 Travel 1.2.840.1 1.2.600.392 7144 465774 Methodi 00:00:00 00:00:[address] 3.430.2.7 0.2.7.3.698 Ho spita .3.420468 084.8 l .8 2022-03-17 2022-03-17 Clinical Migden, 1.2.840.1 112985335 11932 16346 Univers 10:30:00 12:41:26 Support Benjamin 86960.1.1 ity of 3.412.2.7 [place] .3.204495 MD Hurtado [facility] 2022-03-17 2022-03-17 Clinical Jose Luis, 1.2.840.1 [id number] 38188 59405 Univers 10:30:00 12:41:26 Support Benjamin 10433.1.1 ity of 3.412.2.7 [place] .3.883845 MD Hurtado [facility] 2022-03-17 2022-03-17 Travel 1.2.840.1 1.2.479.449 9942 606933 Univers 00:00:00 00:00:00 27932.1.1 350.1.13.41 ity of 3.412.2.7 2.[place].7.3.698 [place] .3.719497 084.8 MD Hurtado [facility] 2022-03-17 2022-03-17 Sammy Gillespie, 1.2.840.1 [id number] 648271 6346 Univers 00:00:00 00:00:00 Only Uday 03793.1.1 ity of 3.412.2.7 [place] .3.805297 MD Hurtado [facility] 2022-03-17 2022-03-17 Travel 1.2.840.1 1.2.132.832 3513 103427 Univers 00:00:00 00:00:00 45967.1.1 350.1.13.41 ity of 3.412.2.7 2.[place].7.3.698 [place] .3.428942 084.8 MD Hurtado [facility] 2022-03-17 2022-03-17 Sammy Gillespie, 1.2.840.1 [id number] 921792 2674 Univers 00:00:00 00:00:00 Only Uday 32362.1.1 ity of 3.412.2.7 [place] .3.072597 MD Hurtado [facility] 2022-03-11 2022-03-11 Documentat Jessie, 1.2.840.1 [id number] 789 [id number] Methodi 00:00:00 00:00:00 ion Tracy 55877.1.[address] 3.430.2.7 Hospit a .3.842060 l .8 2022-03-11 2022-03-11 Documentat Jessie, 1.2.840.1 392931581 811 1863913 Methodi 00:00:00 00:00:00 ion Tracy 35865.1.[address] 3.430.2.7 Hospit a .3.418691 l .8 2022-02-26 2022-02-26 Orders Olya, 1.2.840.1 [id number] 253 6173554 Methodi 00:00:00 00:00:00 Only Lefty 32303.1.[address] 3.430.2.7 Hospit a .3.651172 l .8 2022-02-25 2022-02-25 [facility], 1.2.840.1 [id number] 57759 73524 Methodi 12:15:00 23:59:00 Encounter Tracy Gutierrez 46902.1.1 588 s t 3.430.2.7 Hospit a .3.874334 l .8 2022-02-25 2022-02-25 [facility], 1.2.840.1 [id number] 98094 62247 Methodi 09:12:37 12:14:00 Encounter Tracy Gutierrez 06986.1.1 001 s t 3.430.2.7 Hospit a .3.824726 l .8 2022-02-25 2022-02-25 [facility] Leo 1.2.840.1 [id number] 19551 99939 Methodi 08:39:58 09:11:00 Encounter Tracy Gutierrez 38981.1.1 586 s t 3.430.2.7 Hospit a .3.471380 l .8 2022-02-25 2022-02-25 [facility] [id number] 948 [place] 00:00:00 00:00:00 TRACY [address]rique Method i st 2022-02-25 2022-02-25 Jenna Parikh, 1.2.840.1 [id number] 580514 8949 Methodi 00:00:00 00:00:[address] 3.430.2.7 Hospit a .3.600526 l .8 2022-02-25 2022-02-25 Travel 1.2.840.1 1.2.434.352 4195 918399 Methodi 00:00:00 00:00:[address] 3.430.2.7 0.2.7.3.698 Ho spita .3.517058 084.8 l .8 2022-02-24 2022-02-24 Procedure Jose Luis, 1.2.840.1 [id number] 1093 617860 Univers 11:30:00 14:37:09 visit Benjamin 71445.1.1 ity of 3.412.2.7 [place] .3.695673 MD Fitzpatrick8 [facility] 2022-02-24 2022-02-24 Travel 1.2.840.1 1.2.616.800 3665 039616 Univers 00:00:00 00:00:00 76990.1.1 350.1.13.41 ity of 3.412.2.7 2.[place].7.3.698 [place] .3.676067 084.8 MD Fitzpatrick8 [facility] 2022-02-20 2022-02-20 Telephone Zarco-Thomas 1.2.840.1 [id number] [facility] 00:00:00 00:00:00 conchis 52870.1.1 ity of [place] 3.412.2.7 [place] .3.365104 MD Fitzpatrick8 [facility] 2022-02-17 2022-02-17 Telemedici Pablo 1.2.840.1 [id number] 21 [id number] Methodi 15:00:00 15:23:17 vip[address] Rojas 93557.1.[address] [place] 3.430.2.7 Hospit a .3.125393 l .8 2022-02-17 2022-02-17 Telephone Sri 1.2.840.1 [id number] 1093 824675 Univers 00:00:00 00:00:00 Albin 00324.1.1 it y of 3.412.2.7 [place] .3.402973 MD Fitzpatrick8 [facility] 2022-02-17 2022-02-17 Travel 1.2.840.1 1.2.144.079 6453 316957 Methodi 00:00:00 00:00:[address] 3.430.2.7 0.2.7.3.698 Ho spita .3.628197 084.8 l .8 2022-02-16 2022-02-16 Outpatient Lapin_S [facility] 626496- [place] 01:27:00 01:27:00 [facility] 2022-02-16 2022-02-16 Outpatient Lapin_S [facility] 772107- [place] 01:27:00 01:27:00 31406 [facility] 2022-02-16 2022-02-16 Outpatient Lapin_S [facility] 999754- 202 [place] 01:27:00 01:27:00 14163 [facility] 2022-02-16 2022-02-16 Sammy Gaffney, 1.2.840.1 [id number] 182649 9523 Univers 00:00:00 00:00:00 Only Nicole Gosia 80549.1.1 i ty of 3.412.2.7 [place] .3.264993 MD Fitzpatrick8 [facility] 2022-02-16 2022-02-16 Travel 1.2.840.1 1.2.661.978 2307 633950 Methodi 00:00:00 00:00:[address] 3.430.2.7 0.2.7.3.698 Ho spita .3.786000 084.8 l .8 2022-02-12 2022-02-12 Jenna Shah, 1.2.840.1 [id number] 98396 49694 Methodi 00:00:00 00:00:[address] [place] 3.430.2.7 Hospit a .3.263182 l .8 2022-02-12 2022-02-12 Refill Minal, 1.2.840.1 025616373 2100 971906 Methodi 00:00:00 00:00:[address] 3.430.2.7 Hospit a .3.992707 l .8 2022-02-12 2022-02-12 Refill Pablo, 1.2.840.1 284665134 34432 21307 Methodi 00:00:00 00:00:[address] [place]ad[place] 3.430.2.7 Hospit a .3.129032 l .8 2022-02-11 2022-02-11 Documentat Jeremías, 1.2.840.1 [id number] 2 [id number] Methodi 00:00:00 00:00:00 ion [address] 41969.1.[address] 3.430.2.7 Hospit a .3.256183 l .8 2022-02-11 2022-02-11 Sammy Veronica, 1.2.840.1 105012026 2100 215010 Methodi 00:00:00 00:00:00 Only Lucero 64927.1.[address] 3.430.2.7 Hospit a .3.044513 l .8 2022-02-10 2022-02-10 Outpatient Lapin_S [facility] 821493- 202 [place] 04:26:00 04:26:00 [facility] 2022-02-10 2022-02-10 Outpatient Lapin, U [facility] [id number] c-d 00:00:00 00:00:00 Jaime 620-11ec-a Audrey [id number] 1abd40 2022-02-10 2022-02-10 Jaime [facility] - [id number] librado 00:00:00 00:00:00 Audrey Sun MD: [facility] [address] [address], [place] [address] , Ph. 2022-02-10 2022-02-10 Refill Jackelyn Bernal 1.2.840.1 [id number] 21 [id number] Methodi 00:00:00 00:00:[address] 3.430.2.7 Hospit a .3.783514 l .8 2022-02-10 2022-02-10 Refill Haider, 1.2.840.1 466259522 031118 9199 Methodi 00:00:00 00:00:[address] [place] 3.430.2.7 Hospit a .3.964313 l .8 2022-02-09 2022-02-09 Procedure Migden, 1.2.840.1 832073041 1092 883332 [facility] 19:30:00 19:30:00 visit Benjamin 73338.1.1 ity of 3.412.2.7 [place] .3.830690 MD Hurtado [facility] 2022-02-09 2022-02-09 Procedure Migden, 1.2.840.1 [id number] 1092 732593 [facility] 11:30:00 15:23:15 visit Benjamin Mckeon.1.1 ity of 3.412.2.7 [place] .3.204579 MD Hurtado [facility] 2022-02-09 2022-02-09 Travel 1.2.840.1 1.2.519.859 0502 891974 [facility] 00:00:00 00:00:00 79476.1.1 350.1.13.41 ity of 3.412.2.7 2.[place].7.3.698 [place] .3.146072 084.8 MD Hurtado [facility] 2022-02-05 2022-02-05 Outpatient Lapin_S U [facility] 061097- 202 [place] 02:58:00 02:58:00 [facility] 2022-02-05 2022-02-05 Refminerva Maloney 1.2.840.1 [id number] 357194 6358 Methodi 00:00:00 00:00:[address] [place] 3.430.2.7 Hospit a .3.641595 l .8 2022-02-05 2022-02-05 Orders Topfer, 1.2.840.1 408423415 719314 0305 Methodi 00:00:00 00:00:00 Only Tracy 69590.1.[address] 3.430.2.7 Hospit a .3.699942 l .8 2022-02-04 2022-02-04 Travel 1.2.840.1 1.2.037.776 4298 288437 Methodi 00:00:00 00:00:[address] 3.430.2.7 0.2.7.3.698 Ho spita .3.924702 084.8 l .8 2022-02-03 2022-02-03 Outpatient Lapin_S [facility] 127952- 202 [place] 03:07:00 03:07:00 [facility] 2022-02-03 2022-02-03 Orders Kwasi, 1.2.840.1 [id number] 379 [id number] [facility] 00:00:00 00:00:00 Only Paty 57736.1.1 ity of [place] 3.412.2.7 [place] .3.321363 MD Fitzpatrick8 [facility] 2022-02-02 2022-02-02 Outpatient Lapin_S [facility] 757104- 202 [place] 03:21:00 03:21:00 [facility] 2022-02-02 2022-02-02 Telephone Kwasi, 1.2.840.1 [id number] 1 [id number] [facility] 00:00:00 00:00:00 Paty 31519.1.1 ity of [place] 3.412.2.7 [place] .3.913415 MD Fitzpatrick8 [facility] 2022-01-29 2022-01-29 Telephone Olya 1.2.840.1 [id number] 2 [id number] Methodi 00:00:00 00:00:[address] 3.430.2.7 Hospit a .3.360088 l .8 2022-01-29 2022-01-29 Orders Olya, 1.2.840.1 [id number] 649 2076106 Methodi 00:00:00 00:00:00 Only Lefty 52720.1.[address] 3.430.2.7 Hospit a .3.749684 l .8 2022-01-28 2022-01-28 Orders Gillespie, 1.2.840.1 [id number] 652046 0457 Univers 00:00:00 00:00:00 Only Uday 66782.1.1 ity of 3.412.2.7 [place] .3.329048 MD .8 [facility] 2022-01-26 2022-01-26 Jenna Gallo, 1.2.840.1 [id number] 301 3049895 Methodi 00:00:00 00:00:[address] 3.430.2.7 Hospit a .3.593210 l .8 2022-01-22 2022-01-22 Telephone Jason, 1.2.840.1 [id number] 2099 052479 Methodi 00:00:00 00:00:[address] 3.430.2.7 Hospit a .3.490340 l .8 2022-01-21 2022-01-21 [facility] Leo, 1.2.840.1 [id number] 87 Methodi 13:00:00 23:59:00 Encounter Tracy Mustafa50.1.1 702 s t 3.430.2.7 Hospit a .3.262625 l .8 2022-01-21 2022-01-21 [facility] Leo, 1.2.840.1 213870446 Methodi 09:00:00 12:59:00 Encounter Tracy Gutierrez 15687.1.1 461 s t 3.430.2.7 Hospit a .3.949422 l .8 2022-01-21 2022-01-21 [facility], 1.2.840.1 [id number] 32668 90063 Methodi 07:53:09 08:59:00 Encounter Tracy Mustafa50.1.1 857 s t 3.430.2.7 Hospit a .3.979616 l .8 2022-01-21 2022-01-21 Telephone Sai, 1.2.840.1 [id number] 21 [id number] Methodi 00:00:00 00:00:[address] 3.430.2.7 Hospit a .3.676079 l .8 2022-01-20 2022-01-20 Travel 1.2.840.1 1.2.258.368 4570 036657 Methodi 00:00:00 00:00:[address]430[address] [facility] [facility] [address] [facility]84[facility]8 l .8 2021-12-17 2022-01-19 Office Leo, 1.2.840.1 [id number] 272172 0533 Methodi 14:30:00 00:19:06 Visit Tracy Mustafa50.1.[address] 3.430.2.7 Hospit a .3.030178 l .8 2022-01-16 2022-01-16 Telephone ALDO Amaya [facility] [place] 1.2.840.114 13 [id number] [place] 00:00:00 00:00:00 Benjamin 350.1.13.58 He alth 9.2.7.2.686 042.0904098 1 2022-01-15 2022-01-15 Refill Sabino, 1.2.840.1 [id number] 590 3403896 Methodi 00:00:00 00:00:[address] 3.430.2.7 Hospit a .3.912401 l .8 2022-01-12 2022-01-12 Hospital [facility], 1.2.840.1 302011305 49501 34223 Methodi 10:05:48 23:59:00 Encounter Tracy Mckeon.1.1 077 s t 3.430.2.7 Hospit a .3.898853 l .8 2022-01-12 2022-01-12 [facility], 1.2.840.1 [id number] 45147 Methodi 09:00:00 10:04:00 Encounter Tracy Gutierrez 48772.1.1 927 s t 3.430.2.7 Hospit a .3.559690 l .8 2022-01-12 2022-01-12 [facility], 1.2.840.1 791273458 94 Methodi 07:38:37 08:59:00 Encounter Tracy Mustafa50.1.1 633 s t 3.430.2.7 Hospit a .3.652002 l .8 2022-01-12 2022-01-12 [facility], 1.2.840.1 [id number] 639592 4672 Methodi 00:00:00 00:00:00 Only Tracy 76407.1.[address] 3.430.2.7 Hospit a .3.454638 l .8 2022-01-12 2022-01-12 Travel 1.2.840.1 1.2.276.935 0774 786527 Methodi 00:00:00 00:00:[address] 3.430.2.7 0.2.7.3.698 spita .3.356447 084.8 l .8 2022-01-02 2022-01-02 Office [facility] 4 1.2.021.512 6731 05828 HI 09:30:00 10:27:45 Visit Benjamin 350.1.13.58 He alth 9.2.7.2.686 089.5512886 1 2022-01-01 2022-01-01 Refill Minal, 1.2.840.1 [id number] 2100 002330 Methodi 00:00:00 00:00:[address] 3.430.2.7 Hospit a .3.876496 l .8 2022-01-012022-01-01 Telephone Greco, 1.2.840.1 [id number] 2 [id number] Methodi 00:00:00 00:00:[address] 3.430.2.7 Hospit a .3.772754 l .8 2021-12-30 2021-12-30 Telephone [place], 1.2.840.1 [id number] 2099 735595 Methodi 00:00:00 00:00:[address] 3.430.2.7 Hospit a .3.597913 l .8 2021-12-29 2021-12-29 Orders Rideau, 1.2.840.1 [id number] 769410 7154 Methodi 00:00:00 00:00:00 Only Vero 81017.1.[address] 3.430.2.7 Hospit a .3.211281 l .8 2021-12-28 2021-12-28 Refill Minal, 1.2.840.1 745720771 2099 952346 Methodi 00:00:00 00:00:[address] 3.430.2.7 Hospit a .3.357962 l .8 2021-12-25 2021-12-25 [facility].2.840.1 [id number] 2 [id number] Methodi 12:10:59 23:59:[address] 3.430.2.7 Hospit a .3.061277 l .8 2021-12-25 2021-12-25 [facility] 1.2.840.1 [id number] 2 [id number] Methodi 12:10:42 23:59:[address] 3.430.2.7 Hospit a .3.923373 l .8 2021-12-25 2021-12-25 [facility] [id number] 834 [place] 00:00:00 00:00:[address] TRACY [address] 2021-12-25 2021-12-25 Travel 1.2.840.1 1.2.299.825 4645 765852 Methodi 00:00:00 00:00:[address] 3.430.2.7 0.2.7.3.698 Ho spita .3.842420 084.8 l .8 2021-12-19 2021-12-19 Telephone Olya, 1.2.840.1 [id number] 2 [id number] Methodi 00:00:00 00:00:[address] 3.430.2.7 Hospit a .3.037187 l .8 2021-12-19 2021-12-19 Orders Olya, 1.2.840.1 [id number] 929 5636203 Methodi 00:00:00 00:00:00 Only Romica 68677.1.[address] 3.430.2.7 Hospit a .3.233980 l .8 2021-12-19 2021-12-19 Orders Olya, 1.2.840.1 753683207 267 1480217 Methodi 00:00:00 00:00:00 Only Romica 05811.1.[address] 3.430.2.7 Hospit a .3.587095 l .8 2021-12-18 2021-12-18 Travel 1.2.840.1 1.2.596.156 1408 763912 Methodi 00:00:00 00:00:[address] 3.430.2.7 0.2.7.3.698 Ho spita .3.490057 084.8 l .8 2021-12-18 2021-12-18 Orders [place], 1.2.840.1 [id number] 910207 6986 Methodi 00:00:00 00:00:00 Only Vero 04914.1.[address] 3.430.2.7 Hospit a .3.141379 l .8 2021-12-17 2021-12-17 Travel 1.2.840.1 1.2.491.608 0393 393604 Methodi 00:00:00 00:00:[address] 3.430.2.7 0.2.7.3.698 Ho spita .3.870983 084.8 l .8 2021-12-10 2021-12-10 Telemedici Wolfgang Ibarra 1.2.840.1 [id number] Methodi 16:00:00 16:30:[address] 3.430.2.7 Hospit a .3.132024 l .8 2021-12-10 2021-12-10 Documentat Jessie, 1.2.840.1 [id number] 811 3384380 Methodi 00:00:00 00:00:00 maria esther Stone 87056.1.[address] 3.430.2.7 Hospit a .3.815640 l .8 2021-12-09 2021-12-09 Telephone Wolfgang Ibarra 1.2.840.1 [id number] Methodi 00:00:00 00:00:[address] 3.430.2.7 Hospit a .3.341158 l .8 2021-12-08 2021-12-08 Telephone Aniceto, 1.2.840.1 [id number] 2100 809050 Methodi 00:00:00 00:00:[address] 3.430.2.7 Hospit a .3.750506 l .8 2021-12-08 2021-12-08 Refill Minal, 1.2.840.1 808072203 2099 787229 Methodi 00:00:00 00:00:[address] 3.430.2.7 Hospit a .3.863227 l .8 2021-11-19 2021-12-05 Office Yariel Bettencourt 1.2.840.1 104 225224 6143759634 Methodi 14:00:00 00:46:29 Visit Tracy Bailey 65159.1.[address] 3.430.2.7 Hospit a .3.101758 l .8 2021-12-05 2021-12-05 Telephone Olya, 1.2.840.1 [id number] 2 [id number] Methodi 00:00:00 00:00:[address] 3.430.2.7 Hospit a .3.341568 l .8 2021-12-02 2021-12-02 Telephone Olya, 1.2.840.1 [id number] 2 [id number] Methodi 00:00:00 00:00:[address] 3.430.2.7 Hospit a .3.583276 l .8 2021-11-26 2021-11-26 [facility], 1.2.840.1 [id number] Methodi 10:04:00 23:59:00 Encounter Smooth 93345.1.[address] 3.430.2.7 Hospit a .3.773589 l .8 2021-11-26 2021-11-26 Hospital [facility], 1.2.840.1 [id number] Methodi 08:00:00 10:03:00 Encounter Tracy Gutierrez 01719.1.1 161 s t 3.430.2.7 Hospit a .3.503492 l .8 2021-11-26 2021-11-26 Travel 1.2.840.1 1.2.711.629 6443 162306 Methodi 00:00:00 00:00:[address] 3.430.2.7 0.2.7.3.698 Ho spita .3.529471 084.8 l .8 2021-11-21 2021-11-21 Telephone Olya, 1.2.840.1 [id number] 2 [id number] Methodi 00:00:00 00:00:[address] 3.430.2.7 Hospit a .3.191442 l .8 2021-11-21 2021-11-21 Travel 1.2.840.1 1.2.369.468 6867 909604 Methodi 00:00:00 00:00:[address] 3.430.2.7 0.2.7.3.698 Ho spita .3.056396 084.8 l .8 2021-11-21 2021-11-21 Telephone Delos 1.2.840.1 [id number] 2100 347392 Methodi 00:00:00 00:00:00 Addison, 23973.1.[address] [place] 3.430.2.7 Hospit a .3.007241 l .8 2021-11-20 2021-11-20 Telephone [place], 1.2.840.1 [id number] 2[address]2631 Methodi 00:00:00 00:00:[address] 3.430.2.7 Hospit a .3.835522 l .8 2021-11-20 2021-11-20 Orders [place], 1.2.840.1 [id number] 355491 1727 Methodi 00:00:00 00:00:00 Only Vero 42016.1.[address] 3.430.2.7 Hospit a .3.877125 l .8 2021-11-19 2021-11-19 Travel 1.2.840.1 1.2.254.251 4242 917181 Methodi 00:00:00 00:00:[address] 3.430.2.7 0.2.7.3.698 Ho spita .3.026028 084.8 l .8 2021-11-19 2021-11-19 Orders Olya, 1.2.840.1 [id number] 565 [id number] Methodi 00:00:00 00:00:00 Only Romica 18238.1.[address] 3.430.2.7 Hospit a .3.790563 l .8 2021-11-17 2021-11-17 [facility], 1.2.840.1 [id number] 508 2684345 Methodi 00:00:00 00:00:00 ion Tracy 83436.1.[address] 3.430.2.7 Hospit a .3.590979 l .8 2021-11-16 2021-11-16 Refill Erickrhonda, 1.2.840.1 [id number] 278044 9026 Methodi 00:00:00 00:00:[address] 3.430.2.7 Hospit a .3.046212 l .8 2021-11-12 2021-11-15 [facility] Soah Duran 1.2.840.1 [id number] Methodi 19:41:00 16:44:00 Encounter India Blank 06161.1.[address] [facility], [facility] 3.430.2.7 Hospita Janet Zendejas .3.542351 l .8 2021-11-12 2021-11-12 Travel 1.2.840.1 1.2.134.852 7677 501063 Methodi 00:00:00 00:00:[address] 3.430.2.7 0.2.7.3.698 Ho spita .3.214921 084.8 l .8 2021-11-08 2021-11-08 Refill Minal, 1.2.840.1 [id number] 2099 978214 Methodi 00:00:00 00:00:[address] 3.430.2.7 Hospit a .3.134411 l .8 2021-10-30 2021-10-30 Documentat Nahum, 1.2.840.1 [id number] 047 2454033 Methodi 00:00:00 00:00:00 ion Rob 79930.1.[address] Nate 3.430.2.7 Hospit a .3.587460 l .8 2021-10-30 2021-10-30 Telephone Pops, 1.2.840.1 [id number] 2099 456207 Methodi 00:00:00 00:00:[address] 3.430.2.7 Hospit a .3.776753 l .8 2021-10-28 2021-10-28 Office Vaibhav Faulkner 1.2.840.1 [id number] Methodi 09:15:00 09:30:00 Visit Geraldine Braun 75643.1.[address] 3.430.2.7 Hospit a .3.283753 l .8 2021-10-28 2021-10-28 Travel 1.2.840.1 1.2.466.183 4012 705631 Methodi 00:00:00 00:00:[address] 3.430.2.7 0.2.7.3.698 Ho spita .3.840278 084.8 l .8 2021-10-27 2021-10-27 Refill [facility], 1.2.840.1 [id number] 511412 4395 Methodi 00:00:00 00:00:[address] [place] 3.430.2.7 Hospit a .3.931202 l .8 2021-10-27 2021-10-[address] [facility], 1.2.840.1 [id number] 2100 860718 Methodi 00:00:00 00:00:[address] 3.430.2.7 Hospit a .3.322264 l .8 2021-10-24 2021-10-24 [facility], 1.2.840.1 [id number] 01264 54010 Methodi 09:51:52 23:59:00 Encounter Vaibhav 10474.1.[address] 3.430.2.7 Hospit a .3.200491 l .8 2021-10-24 2021-10-24 [facility], 1.2.840.1 [id number] 77416 13229 Methodi 08:31:47 09:50:00 Encounter Ashriderrek 46852.1.[address] 3.430.2.7 Hospit a .3.162305 l .8 2021-10-24 2021-10-24 Outpatient FRANCES, [facility] [id number] 129 [place] 00:00:00 00:00:[address] YOJANAMED [address] 2021-10-24 2021-10-24 Travel 1.2.840.1 1.2.659.608 7381 151832 Methodi 00:00:00 00:00:[address] 3.430.2.7 0.2.7.3.698 Ho spita .3.099345 084.8 l .8 2021-10-23 2021-10-23 Refill Minal, 1.2.840.1 [id number] 2099 743424 Methodi 00:00:00 00:00:[address] 3.430.2.7 Hospit a .3.312956 l .8 2021-10-22 2021-10-22 Travel 1.2.840.1 1.2.964.341 8899 727315 Methodi 00:00:00 00:00:[address] 3.430.2.7 0.2.7.3.698 Ho spita .3.988029 084.8 l .8 2021-10-22 2021-10-22 Refill Haider, 1.2.840.1 [id number] 521070 1181 Methodi 00:00:00 00:00:[address] [place] 3.430.2.7 Hospit a .3.263610 l .8 2021-10-16 2021-10-16 Refill Sabino, 1.2.840.1 [id number] 825 3938113 Methodi 00:00:00 00:00:[address] 3.430.2.7 Hospit a .3.039511 l .8 2021-10-13 2021-10-13 Sammy Roman, 1.2.840.1 [id number] 354601 5415 Methodi 00:00:00 00:00:00 Only Tracy 08424.1.[address] 3.430.2.7 Hospit a .3.318312 l .8 2021-10-09 2021-10-09 Travel 1.2.840.1 1.2.854.092 5196 166779 Methodi 00:00:00 00:00:[address] 3.430.2.7 0.2.7.3.698 Ho spita .3.212602 084.8 l .8 2021-10-08 2021-10-08 Documentat [facility], 1.2.840.1 [id number] 865 5791730 Methodi 00:00:00 00:00:00 ion Tracy 24503.1.[address] 3.430.2.7 Hospit a .3.288356 l .8 2021-10-05 2021-10-05 Refill Pablo, 1.2.840.1 [id number] 42154 53194 Methodi 00:00:00 00:00:[address] [place] 3.430.2.7 Hospit a .3.039600 l .8 2021-09-05 2021-09-12 Inpatient [facility] 060 938427 8020 [place] 00:00:00 00:00:00 MAYURI [address] 2021-08-25 2021-08-25 Outpatient [facility] [id number] 395 [place] 00:00:00 00:00:00 VAIBHAV [address] 2021-08-25 2021-08-25 Outpatient [facility] 62291 59777 [place] 00:00:00 00:00:00 YASH [address] 2021-07-04 2021-07-04 Office Jose Luis [facility] 4 1.2.358.898 8290 07280 [place] 09:30:00 10:47:19 Visit Benjamin 350.1.13.58 He alth 9.2.7.2.686 848.2642328 1 2021-06-232021-06-23 Outpatient Zev BOOGIE [facility] [id number] Univers 10:40:00 10:40:00 RIGOBERTO garner [facility] 2021-06-23 2021-06-23 Imm/Inj Nurse, Adc Pob Immunization [facility] 1.2.840.114 [id number] Univers 10:23:00 10:23:14 Visit Rigoberto Boogie 350.1.13 .10 pascual [facility] 4.2.7.2.686 Fermín Short 049.0473242 [address] 2021-05-13 2021-05-13 Outpatient MAGNUS RUFF [facility] [id number] [place] 00:00:00 00:00:00 868 Method i 2021-04-03 2021-04-03 Outpatient PABLO [facility] [id number] 0263 [place] 00:00:00 00:00:00 MOHAMMAD 798 [address] 2021-03-27 2021-03-27 Outpatient PABLO [facility] [id number] 6262 [place] 00:00:00 00:00:00 MOHAMMAD [address] 2021-03-07 2021-03-07 [place] [facility] [place] 1.2.854.107 2928 41032 09:32:28 10:24:45 Visit Benjamin 350.1.13.58 9.2.7.2.686 517.0810600 1 2021-03-07 2021-03-07 Office [place] [facility] [place] 1.2.690.274 1246 23345 [place] 09:32:28 10:24:45 Visit Benjamin 350.1.13.58 He alth 9.2.7.2.686 321.2403155 1 2021-03-04 2021-03-04 Outpatient EBENEZER[facility] [facility] [id number] [place] 00:00:00 00:00:00 VAIBHAV 858 Method i 2021-02-28 2021-02-28 Outpatient SPARKLE, [facility] [id number] [place] 00:00:00 00:00:00 RAYYONAS 422 Method i 2021-02-20 2021-02-20 Outpatient ROCK, [facility] [id number] [place] 00:00:00 00:00:00 MAHWASH [address] 2021-02-20 2021-02-20 Outpatient NAKAWAH, [facility] [id number] [place] 00:00:00 00:00:00 MOHAMMAD [address] 2021-02-20 2021-02-20 Outpatient ROCK, [facility] [id number] [place] 00:00:00 00:00:00 MAHWASH [address] 2021-02-20 2021-02-20 Outpatient ROCK, [facility] [id number] [place] 00:00:00 00:00:00 MAHWASH [address] 2021-02-20 2021-02-20 Outpatient BHIMARAJ, [facility] [id number] [place] 00:00:00 00:00:00 YASH [address] 2021-02-20 2021-02-20 Outpatient ROCK, [facility] [id number] [place] 00:00:00 00:00:00 MAHWASH [address] 2021-02-20 2021-02-20 Outpatient ROCK, [facility] [id number] [place] 00:00:00 00:00:00 MAHWASH [address] 2021-02-19 2021-02-19 Outpatient NAKESTELAH, [facility] [id number] [place] 00:00:00 00:00:00 MOHAMMAD [address] 2020-10-31 2020-10-31 Outpatient [facility] [id number] [place] 00:00:00 00:00:[address] 2020-10-03 2020-10-03 Outpatient NOEMIH, [facility] [id number] [place] 00:00:00 00:00:00 MOHAMMAD [address] 2020-10-03 2020-10-03 Outpatient MURCIA, [facility] [id number] [place] 00:00:00 00:00:00 RAKAN [address] 2020-09-06 2020-09-06 Outpatient NOLEN, [facility] [id number] [place] 00:00:00 00:00:00 FAMILIA [address] 2020-08-07 2020-08-07 Orders Doctor JUSTEN [id number] 00:00:00 00:00:00 Only Unassigned, ZEESHAN [id number] [place] [facility] [id number] [id number] 2020-07-18 2020-07-18 Outpatient [facility], [facility] [id number] [place] 00:00:00 00:00:00 MOHAMMAD [address] 2020-07-18 2020-07-18 Outpatient [facility] [id number] [place] 00:00:00 00:00:[address] 2020-07-18 2020-07-18 [facility] [id number] [place] 00:00:00 00:00:00 MOHAMMAD [address] 2020-07-09 2020-07-09 Outpatient [facility], [facility] [id number] [place] 00:00:00 00:00:00 YASH [address] 2020-07-09 2020-07-09 Outpatient [facility], [facility] [id number] [place] 00:00:00 00:00:00 YASH [address] 2020-05-30 2020-05-30 [facility] [id number] [place] 00:00:00 00:00:00 MOHAMMAD [address] 2020-05-13 2020-05-13 Outpatient [facility], [facility] [id number] [place] 00:00:00 00:00:00 YASH [address] 2020-05-07 2020-05-07 Outpatient [facility], [facility] [id number] [place] 00:00:00 00:00:00 BRITNEY [address] 2020-02-28 2020-02-28 Outpatient GEOVANNI, [facility] [id number] [place] 00:00:00 00:00:00 YAZ [address] 2020-02-26 2020-02-26 [facility] [id number] [place] 00:00:00 00:00:00 MOHAMMAD [address] 2020-02-21 2020-02-21 Outpatient GEOVANNI, [facility] [id number] [place] 00:00:00 00:00:00 YAZ 991 Method i 2020-02-08 2020-02-08 Outpatient GEOVANNI, [facility] [id number] [place] 00:00:00 00:00:00 YAZ 400 Method i 2019-12-06 2019-12-06 Outpatient AHMAD, [facility] [id number] [place] 00:00:00 00:00:00 PORTILLO 003 [address] 2019-11-07 2019-11-07 Outpatient EBENEZER, [facility] [id number] [place] 00:00:00 00:00:00 ASHRITH 730 Method i 2019-11-07 2019-11-07 Outpatient EBENEZER, [facility] [id number] [place] 00:00:00 00:00:00 ASHRITH 056 Method i 2019-11-02 2019-11-02 Outpatient EBENEZER, [facility] [id number] [place] 00:00:00 00:00:00 ASHRITH 744 Method i 2019-11-02 2019-11-02 Outpatient EBENEZER, [facility] [id number] [place] 00:00:00 00:00:00 ASHRITH 621 Method i 2019-11-02 2019-11-02 Outpatient EBENEZER, [facility] [id number] [place] 00:00:00 00:00:00 ASHRITH 598 Method i 2019-11-02 2019-11-02 Outpatient EBENEZER, [facility] [id number] [place] 00:00:00 00:00:00 ASHRITH 830 Method i 2019-10-24 2019-10-24 Hospital Radiology [facility] [id number] 11:09:00 23:59:00 Encounter [place] [id number] [place] 4.2.7.2.686 [place] [id number] 2019-10-24 2019-10-24 Orders Doctor JUSTEN [id number] 00:00:00 00:00:00 Only Unassigned, ZEESHAN 350.1.13.10 [place] [facility] 4.2.7.2.686 [id number] [id number] 2018-04-08 2018-04-19 Inpatient [facility] [id number] [place] 04:09:00 00:45:00 r Sae 67 [facility] 2018-04-08 2018-04-19 Inpatient [facility] [id number] [place] 04:09:00 00:45:00 r Sae Fuentes [facility] 2018-04-07 2018-04-18 Outpatient Wally [facility] [id number] 23:09:00 19:45:00 Viri Landeros 2018-04-07 2018-04-18 [id number] 23:09:00 19:45:00 Viri Gina Landeros 2016-08-06 2016-08-11 Outpatient YOSSI AMAYA [facility] [id number] 714 08:47:07 15:20:31 BENJAMIN huggins Results Test Description Test Time Test Comments Results Result Comments Source Comprehensive metabolic panel 2023-02-24 18:57:00 Test Item Value Reference Range Interpretation Comme nts Glucose (test code = 93 mg/dL 65-99 Fastin g reference 2345-7) interval BUN (test code = 3094-0) 35 mg/dL 7-25 H Creatinine (test code = 1.89 mg/dL 0.70-1.28 H 2160-0) eGFR (test code = 67245-5) 36 See_Comment L T he eGFR is based on the CKD-EPI 202 1 equation. To ca lculate the new eGFR fr om a previous Creati nine or Cystatin Cresul t, go to https://www.kid michael.org /professionals/ kdoqi/g fr%5Fcalculator [Automated mess age] The system [facility] generated this result transmitted ref erence range: > OR = 6 0 mL/min/1.73m2. The reference range was not used to int erpret this result as normal/abnormal . BUN/creatinine ratio (test 19 See_Comment [Automated message] code = 3097-3) The system [facility] generated this result transmitted ref erence range: 6 - 22 ( calc). The reference r renu was not used to interpret this result as normal/abnor mal. Sodium (test code = 146 mmol/L 001-081 0965-2) Potassium (test code = 3.5 mmol/L 3.5-5.3 2823-3) Chloride (test code = 104 mmol/L 98-110 2075-0) CO2 (test code = 8-9) 36 mmol/L 20-32 H Calcium (test code = 9.1 mg/dL 8.6-10.3 33955-7) Protein (test code = 6.5 g/dL 6.1-8.1 2885-2) Albumin, S (test code = 3.9 g/dL 3.6-5.1 1751-7) Globulin, total (test code 2.6 See_Comment [Automated message] = 01764-6) The system [employer] generated this result transmitted ref erence range: 1.9 - 3. 7 g/dL (calc). The ref erence range was not u sed to interpret this result as normal/abnor mal. Albumin/globulin ratio 1.5 See_Comment [Aut omated message] (test code = 1759-0) The sys tem which generated this result transmitted ref erence range: 1.0 - 2. 5 (calc). The ref erence range was not u sed to interpret this result as normal/abnor mal. Total bilirubin (test code 0.7 mg/dL 0.2-1.2 = 1974-) Alkaline phosphatase (test 100 U/L 35-144 code = 6768-6) AST (test code = 1920-8) 18 U/L 10-35 ALT (test code = 1742-6) 13 U/L 9-46 HOWARD (test code = HOWARD) FASTING:YES FASTING: YES RAC (test code = RAC) Performing Organization Information: Site ID: [facility] Name: [facility] Address: [address] [place] [phone] Director: Rakan Aguirre Lab Interpretation (test Abnormal code = 30707-0) [facility]2023-05-31 18:57:00 Test Item Value Reference Range Interpretation Comments Magnesium (test code 2.0 mg/dL 1.5-2.5 = 60490-7) HOWARD (test code = HOWARD) FASTING:YES FASTING: YES RAC (test code = RAC) Performing Organization Information: Site ID: [facility] Name: [facility] Address: [address] [place] [phone] Director: Rakan Aguirre [facility] with platelet and [id number] 18:57:00 Test Item Value Reference Interpretation Comments Range WBC (test code = 5.6 See_Comment [Automated message] 6690-2) The system [employer] generated this result transmit karla reference range : 3.8 - 10.8 Thousand /uL. The reference r renu was not used to interpret this result as normal/abnormal . RBC (test code = 3.94 See_Comment L [Automated message] 789-8) The system [employer] generated this result transmit karla reference range : 4.20 - 5.80 Million/uL. The reference range was not used to interpret this result as normal/abnormal . HGB (test code = 12.6 g/dL 13.2-17.1 L 718-7) HCT (test code = 37.0 % 38.5-50.0 L 4544-3) MCV (test code = 93.9 fL 80.0-100.0 787-2) MCH (test code = 32.0 pg 27.0-33.0 785-6) MCHC (test code = 34.1 g/dL 32.0-36.0 786-4) RDW (test code = 12.9 % 11.0-15.0 788-0) Platelet count 122 See_Comment L [Automated m essage] (test code = 777-3) The syst em which generated this result transmit karla reference range : 140 - 400 Thousand/ uL. The reference r renu was not used to interpret this result as normal/abnormal . MPV (test code = 10.8 fL 7.5-12.5 776-5) Neutrophils, 4402 See_Comment [Automated mes cresencio] absolute (test code The syst em which = 751-8) generated this result transmit karla reference range : 1,500 - 7,800 cells/uL. The reference range was not used to interpret this result as normal/abnormal . Lymphocytes, 571 See_Comment L [Automated mes cresencio] absolute (test code The syst em which = 731-0) generated this result transmit karla reference range : 850 - 3,900 cells/u L. The reference r renu was not used to interpret this result as normal/abnormal . Monocytes, absolute 521 See_Comment [Automa karla message] (test code = 742-7) The syst em which generated this result transmit karla reference range : 200 - 950 cells/uL. The reference range was not used to interpret this result as normal/abnormal . Eosinophils, 78 See_Comment [Automated mes cresencio] absolute (test code The syst em which = 711-2) generated this result transmit karla reference range : 15 - 500 cells/uL. The reference range was not used to interpret this result as normal/abnormal . Basophils, absolute 28 See_Comment [Automa karla message] (test code = 704-7) The syst em which generated this result transmit karla reference range : 0 - 200 cells/uL. T he reference range was not used to interpret this result as normal/abnormal . Neutrophils (test 78.6 % code = 770-8) Lymphocytes (test 10.2 % code = 736-9) Monocytes (test 9.3 % code = 5905-5) Eosinophils (test 1.4 % code = 713-8) Basophils + RC 0.5 % (test code = 706-2) Nucleated RBC (test Review o f the code = 8251-1) peripheral sm ear revealsdecrease d numbers of platelets. Platelet estimate DECREASED ADEQUATE A (test code = 9317-9) HOWARD (test code = FASTING:YES HOWARD) FASTING: YES RAC (test code = Performing RAC) Organization Information: Site ID: [facility] Name: [facility] Lab Address: [address] [place] [phone] Director: Rakan Aguirre Lab Interpretation Abnormal (test code = 56517-6) [facility] CenterProthrombin time with [id number] 18:57:00 Test Item Value Reference Range Interpretation Comments INR (test code = 1.1 Reference R renu 6301-6) 0.9-1.1Moderate -i ntensity Warfar in Therapy 2.0-3.0Higher-i nt ensity Warfarin Therapy 3.0-4.0 Prothrombin time 11.5 See_Comment For additio nal (test code = information, 5902-2) please refer tohttp://educat io n.Aileron Therapeuticsdiagnost [place]/faq/FAQ10 4( This link is being provided for informational/e du cational purpos es only.) [Automat ed message] The system which generated this result transmitted reference range : 9.0 - 11.5 sec. The reference range was not used to interpr et this result as normal/abnormal . HOWARD (test code = FASTING:YES HOWARD) FASTING: YES RAC (test code = Performing RAC) Organization Information: Site ID: [facility] Name: [facility] Address: [address] [place] [address] Director: Rakan Aguirre [facility] CenterFK506 Tacrolimus level, [id number] 18:57:00 Test Item Value Reference Interpretation Comments Range Tacrolimus, highly 3.5 mcg/L L No defini tive sensitive, LC/MS/MS therapeu tic or toxic (test code = ranges have 03412-5) beenestablished . Optimal blood d rug levels are influencedby ty pe of transplant, pat ient response, time post-transplant , co-administrati on of other drugs, an d drug formulatio n. The following t rough range is a sugg ested guideline: 5.0- 20.0 mcg/L. This adamaris t was developed and i ts analytical performance characteristics have been determined by [employer]. It has not been cleared or appr alon by theFDA. This assay has been validated pursu ant to the CLIA regulations and is used for clinic al purposes. HOWARD (test code = FASTING:YES HOWARD) FASTING: YES RAC (test code = Performing RAC) Organization Information: Site ID: [facility] Name: Medical Referral Source-[facility] Lab Address: [address] [place] [address] Director: Dr. Rakan Aguirre Lab Interpretation Abnormal (test code = 73406-7) [facility] 12 [id number] 15:07:17 Test Item Value Reference Range Interpretation Comments Ventricular rate 79 (test code = 253) Atrial rate (test 308 code = 255) QRSD interval (test 80 code = 260) QT interval (test 406 code = 264) QTC interval (test 465 code = 265) P axis 1 (test code = 75 267) QRS axis 1 (test code 48 = 268) T wave axis (test 80 code = 270) EKG impression (test ^^^ Poor data quality, code = 273) interpretation may be adversely affected-Probable Normal sinus rhythm-Possible Anterior infarct (cited on or before 21-SEP-2022)-Abnormal ECG-In automated comparison with ECG of 02-FEB-2023 14:21,-Atrial flutter has replaced Sinus rhythm- [facility] [id number] 17:03:38 Test Item Value Reference Range Interpretation Comments Case number (test [id number] code = 4761873) Surgical pathology See link below for PDF report (test code = Lab Report 2255) Result status (test This is Supplemental code = 0732152) Report for [id number] [facility] [id number] 17:52:00 Test Item Value Reference Range Interpretation Comments POC glucose (test code = 151 mg/dL 65-99 H Ope rator Name: [id number]) Ruth Holloway ice ID: [id number] able: [facility] Notified technical services librarian Interpretation (test Abnormal code = 28393-8) [facility] CenterUrine [id number] 01:22:00 Test Item Value Reference Range Interpretation Comments Urine culture (test SEE COMMENT Bacteriu sarah screen code = 8875621) negative. [facility] CenterCv stress [id number] 19:28:12 Test Item Value Reference Range Interpretation Comments Resting HR (test code 80 = 2203680918) Resting BP (test code 167&77 = 5750297655) Peak MET Achieved 1.0 (test code = 1585166957) Protocol Name (test Lexiscan code = 9108551969) Time in Exercise 00:01:00 Phase (test code = 3137483688) Max Systolic BP (test 167 code = 0960772149) Max Diastolic BP 77 (test code = 9766204593) Max Heart Rate (test 82 code = 1109863644) Max Predicted Heart 141 Rate (test code = 7849664468) Target HR Formula (220 - Age)*100% (test code = 9714568120) Test Indication (test S/P Heart Transplant code = 5830307979) Arrhy During Ex (test code = 2423883438) ECG Interp Before EX (test code = 0397755820) ECG Interp During Ex (test code = 4163121175) Ex Summary Comment (test code = 7417067171) Overall HR Response to Exercise (test code = 7401389040) Overall BP Response To Exercise (test code = 2490026161) Reason for Protocol Complete Termination (test code = 7191213317) Stress Test -Waveform interpreted in Impression (test code report associated with = 2699856195) image study. No interpretation is provided as part of this Stress ECG report.-Electronically Signed By Willard Justice MD ([id number]), production editor Allison Prasad ([id number]) on 12/22/2022 2:28:11 PM [facility] metabolic [id number] 01:29:00 Test Item Value Reference Range Interpretation Comments Glucose (test code = 79 mg/dL 65-99 Fastin g 2345-7) reference interval BUN (test code = 35 mg/dL 7-25 H 3094-0) Creatinine (test 2.01 mg/dL 0.70-1.28 H code = 2160-0) eGFR (test code = 33 See_Comment L The eGFR i s based 49743-2) on the CKD-EPI 2020 equation. To calculate the n ew eGFR from a previous Creatinine or Cystatin Cresul t, go to https://www.kid ne y.org/professio na abby/kdoqi/gfr%5F ca lculator [Automated message] The system which generated this result transmitted reference range : > OR = 60 mL/min/1.73m2. The reference range was not used to interpr et this result as normal/abnormal . BUN/creatinine ratio 17 See_Comment [Autom ated (test code = 3097-3) message ] The system which generated this result transmitted reference range : 6 - 22 (calc). The reference range was not used to interpr et this result as normal/abnormal . Sodium (test code = 142 mmol/L 004-702 1936-2) Potassium (test code 4.0 mmol/L 3.5-5.3 = 2823-3) Chloride (test code 102 mmol/L 98-110 = 2075-0) CO2 (test code = 35 mmol/L 20-32 H 2027-) Calcium (test code = 9.3 mg/dL 8.6-10.3 91160-4) Protein (test code = 6.4 g/dL 6.1-8.1 2885-2) Albumin, S (test 3.8 g/dL 3.6-5.1 code = 1751-7) Globulin, total 2.6 See_Comment [Automated (test code = message] The 40240-9) system which generated this result transmitted reference range : 1.9 - 3.7 g/dL (calc). The reference range was not used to interpret this result as normal/abnormal . Albumin/globulin 1.5 See_Comment [Automated ratio (test code = message] The 0) system which generated this result transmitted reference range : 1.0 - 2.5 (calc ). The reference range was not used to interpr et this result as normal/abnormal . Total bilirubin 0.7 mg/dL 0.2-1.2 (test code = 1974-2) Alkaline phosphatase 101 U/L 35-144 (test code = 6768-6) AST (test code = 29 U/L 10-35 0-8) ALT (test code = 39 U/L 9-46 1741-6) HOWARD (test code = FASTING:YES HOWARD) FASTING: YES RAC (test code = Performing RAC) Organization Information: Site ID: [facility] Name: [facility]Re[facility] Lab Address: [address] [place] [phone] Director: Rakan Aguirre Lab Interpretation Abnormal (test code = 55151-7) [facility] CenterLipid [id number] 01:29:00 Test Item Value Reference Range Interpretation Comments Cholesterol, total 147 mg/dL <=200 (test code = 2093-3) HDL cholesterol 61 mg/dL See_Comment [Automated (test code = 2084-9) message ] The system which generated this result transmitted reference range : > OR = 40. The reference range was not used to interpret this result as normal/abnormal . Triglycerides (test 85 mg/dL <=150 code = 2571-8) LDL cholesterol 69 mg/dL (calc) Reference ra nge: calculated (test <100 Desira ble code = 11452-9) range <100 m g/dL for primary prevention; <70 mg/dL for patients with C HD or diabetic patients with > or = 2 CHD risk factors. LDL-C is now calculated using the Paula calculation, which is a validated novel method providin g better accuracy than the Friedewald equation in the estimation of LDL-C. Pan S S et al. MARKO. 2013;310(19): 1280-2654 (http://educati on .Bux180 .com/faq/RRD990 ) Cholesterol/HDL 2.4 See_Comment [Automated ratio (test code = message] The [employer] system which generated this result transmitted reference range : <5.0 (calc). Th e reference range was not used to interpret this result as normal/abnormal . Non-HDL cholesterol 86 See_Comment For christi ents with (test code = diabetes plus 1 26842-0) major ASCVD ris k factor, treatin g [...] RAC) Organization Information: Site ID: [facility] Name: Medical Referral SourceMasha joseluis Lab Address: [address] [place] [phone] Director: Rakan Aguirre [facility] CenterHemoglobin [id number] 01:29:00 Test Item Value Reference Interpretation Comments Range Hemoglobin A1C 6.1 See_Comment H For someone w ithout (test code = known diabetes, a 4548-4) hemoglobin A1c value between 5.7% an d 6.4% is consist ent withprediabetes and should be confi rmed with a follow-u p test. For someo ne with known diab etes, a value <7%indicates that their diabetes is well controlled . S0ljoupace shou ld be individualized based on duration [...] RAC) Organization Information: Site ID: [facility] Name: [facility] Address: [address] [place] [address] Director: Rakan Aguirre Lab Interpretation Abnormal (test code = 36925-1) [facility] CenterT4, [id number] 01:29:00 Test Item Value Reference Range Interpretation Comments T4, free (test code 1.0 ng/dL 0.8-1.8 = 3024-7) HOWARD (test code = FASTING:YES FASTING: YES HOWARD) RAC (test code = Performing Organization RAC) Information: Site ID: [facility] Name: [facility] Address: [address] [place] [address] Director: Rakan MuirOhioHealth Hardin Memorial HospitalThyroid stimulating [id number] 01:29:00 Test Item Value Reference Range Interpretation Comments [...] code = RAC) Organization Information: Site ID: [facility] Name: Medical Referral [facility]Lo[facility] Address: [address] [place] [address] Director: Rakan Aguirre [facility] CenterCB with platelet and [id number] 01:29:00 Test Item Value Reference Range Interpretation Comments WBC (test code = 4.5 See_Comment [Automated 6290-2) message] The system which generated this result transmitted reference range : 3.8 - 10.8 Thousand/uL. Th e reference range was not used to interpret this result as normal/abnormal . RBC (test code = 3.54 See_Comment L [Automated 429-8) message] The system which generated this result transmitted reference range : 4.20 - 5.80 Million/uL. The reference range was not used to interpret this result as normal/abnormal . HGB (test code = 11.5 g/dL 13.2-17.1 L 718-7) HCT (test code = 34.3 % 38.5-50.0 L 4544-3) MCV (test code = 96.9 fL 80.0-100.0 787-2) MCH (test code = 32.5 pg 27.0-33.0 785-6) MCHC (test code = 33.5 g/dL 32.0-36.0 786-4) RDW (test code = 13.8 % 11.0-15.0 788-0) Platelet count (test 116 See_Comment L [Autom ated code = 777-3) message] The system which generated this result transmitted reference range : 140 - 400 Thousand/uL. Th e reference range was not used to interpret this result as normal/abnormal . MPV (test code = 11.2 fL 7.5-12.5 776-5) Neutrophils, 3452 See_Comment [Automated absolute (test code message] The = 751-8) system which generated this result transmitted reference range : 1,500 - 7,800 cells/uL. The reference range was not used to interpret this result as normal/abnormal . Lymphocytes, 365 See_Comment L [Automated absolute (test code message] The = 731-0) system which generated this result transmitted reference range : 850 - 3,900 cells/uL. The reference range was not used to interpret this result as normal/abnormal . Monocytes, absolute 626 See_Comment [Automa karla (test code = 742-7) message] The system which generated this result transmitted reference range : 200 - 950 cells/uL. The reference range was not used to interpret this result as normal/abnormal . Eosinophils, 50 See_Comment [Automated absolute (test code message] The = 711-2) system which generated this result transmitted reference range : 15 - 500 cells/uL. The reference range was not used to interpret this result as normal/abnormal . Basophils, absolute 9 See_Comment [Automa karla (test code = 704-7) message] The system which generated this result transmitted reference range : 0 - 200 cells/u L. The reference range was not used to interpr et this result as normal/abnormal . Neutrophils (test 76.7 % code = 770-8) Lymphocytes (test 8.1 % code = 736-9) Monocytes (test code 13.9 % = 5905-5) Eosinophils (test 1.1 % code = 713-8) Basophils + RC (test 0.2 % code = 706-2) HOWARD (test code = FASTING:YES HOWARD) FASTING: YES RAC (test code = Performing RAC) Organization Information: Site ID: A Name[facility] Address: [address] [place] [phone] Director: Rakan Aguirre Lab Interpretation Abnormal (test code = 21290-8) [facility] CenterVitamin D 25 hydroxy [id number] 01:29:00 Test Item Value Reference Range Interpretation Comments Vitamin D, 39 ng/mL 30-100 Vitamin D Statu s 25-hydroxy [...] please refer to http://educatio n.Q uestDiagnostics .co m/faq/HAY001 (T his link is being provided for informational/e deric ational purpose s only.) HOWARD (test code = FASTING:YES FASTING: HOWARD) YES RAC (test code = Performing RAC) Organization Information: Site ID: [facility] Name: [facility] Address: [address] [place] [phone] Director: Rakan Aguirre [facility] CenterAlbumin with creatinine and ratio, random [id number] 01:29:00 Test Item Value Reference Interpretation Comments Range Creatinine, urine 107 mg/dL 20-320 (mg/dL) (test code = 2161-8) Microalbumin, urine 65.8 mg/dL See Note: Referenc e Range: (test code = Reference Range Not 11373-8) established Res ults verified by rep eat analysis on dilution. Microalbumin/creati 615 See_Comment H The ADA defines nine ratio [...] RAC) Organization Information: Site ID: RGA [facility] Address: [address] [place] [address] Director: Rakan Aguirre Lab Interpretation Abnormal (test code = 36600-5) [place] [address], [id number] 01:29:00 Test Item Value Reference Range Interpretation Comments T4, free (test code 1.0 ng/dL 0.8-1.8 = 3024-7) HOWARD (test code = FASTING:YES FASTING: YES HOWARD) RAC (test code = Performing Organization RAC) Information: Site ID: RGA Name[facility] Address: [address] [place] [address] Director: Rakan Aguirre [facility] ONC COURSE [id number] 21:58:37 Test Item Value Reference Range Interpretation Comments Course ID (test code = C1 5706) Course Start Date (test 2022-10-20 @10:26 code = 5707) Treatment Elapsed Days 11 (test code = 5709) Course Intent (test code Unknown = 5686) Treatment Dates (test Course End Date: code = 5685) 2022-11-02 @15:57First Treatment Date: 2022-10-22 @11:55Last Treatment Date: 2022-11-02 @11:39 Reference Point ID (test Liver code = 5710) Dosage Given to Date in 40 Gy (test code = 5711) Plan ID (test code = Liver 5713) Plan Name (test code = Liver 5714) Fractions Treated to 5 of 5 Date (test code = 5715) Prescribed Dose Per 8 Fraction in Gy (test code = 5716) Prescription Dose in cGy 4000 (test code = 5717) [facility] ONC COURSE [id number] 21:58:37 Test Item Value Reference Range Interpretation Comments Course ID (test code = C1 5706) Course Start Date (test 2022-10-20 @10:26 code = 5707) Treatment Elapsed Days 11 (test code = 5709) Course Intent (test code Unknown = 5686) Treatment Dates (test Course End Date: code = 5685) 2022-11-02 @15:57First Treatment Date: 2022-10-22 @11:55Last Treatment Date: 2022-11-02 @11:39 Reference Point ID (test Liver code = 5710) Dosage Given to Date in 40 Gy (test code = 5711) Plan ID (test code = Liver 5713) Plan Name (test code = Liver 5714) Fractions Treated to 5 of 5 Date (test code = 5715) Prescribed Dose Per 8 Fraction in Gy (test code = 5716) Prescription Dose in cGy 4000 (test code = 5717) [facility] ONC COURSE [id number] 21:58:37 Test Item Value Reference Range Interpretation Comments Course ID (test code = C1 5706) Course Start Date (test 2022-10-20 @10:26 code = 5707) Treatment Elapsed Days 11 (test code = 5709) Course Intent (test code Unknown = 5686) Treatment Dates (test Course End Date: code = 5685) 2022-11-02 @15:57First Treatment Date: 2022-10-22 @11:55Last Treatment Date: 2022-11-02 @11:39 Reference Point ID (test Liver code = 5710) Dosage Given to Date in 40 Gy (test code = 5711) Plan ID (test code = Liver 5713) Plan Name (test code = Liver 5714) Fractions Treated to 5 of 5 Date (test code = 5715) Prescribed Dose Per 8 Fraction in Gy (test code = 5716) Prescription Dose in cGy 4000 (test code = 5717) [facility] DAILY [id number] 17:47:44 Test Item Value Reference Range Interpretation [...] in cGy 4000 (test code = 5717) [facility] DAILY [id number] 17:47:44 Test Item Value Reference Range Interpretation [...] in cGy 4000 (test code = 5717) [facility] DAILY [id number] 17:47:44 Test Item Value Reference Range Interpretation [...] in cGy 4000 (test code = 5717) [facility] DAILY [id number] 17:54:31 Test Item Value Reference Range Interpretation [...] in cGy 4000 (test code = 5717) [facility] DAILY [id number] 17:54:31 Test Item Value Reference Range Interpretation [...] in cGy 4000 (test code = 5717) [facility] DAILY [id number] 17:54:31 Test Item Value Reference Range Interpretation [...] in cGy 4000 (test code = 5717) [facility] DAILY [id number] 17:47:03 Test Item Value Reference Range Interpretation [...] in cGy 4000 (test code = 5717) [facility] ONC DAILY [id number] 17:47:03 Test Item Value Reference Range Interpretation [...] in cGy 4000 (test code = 5717) [facility] ONC DAILY [id number] 17:47:03 Test Item Value Reference Range Interpretation [...] in cGy 4000 (test code = 5717) [facility] ONC DAILY [id number] 17:52:02 Test Item Value Reference Range Interpretation [...] in cGy 4000 (test code = 5717) [facility] DAILY [id number] 17:52:02 Test Item Value Reference Range Interpretation [...] in cGy 4000 (test code = 5717) [facility] DAILY [id number] 17:52:02 Test Item Value Reference Range Interpretation [...] in cGy 4000 (test code = 5717) [facility] DAILY [id number] 18:04:45 Test Item Value Reference Range Interpretation [...] in cGy 4000 (test code = 5717) [facility] DAILY [id number] 18:04:45 Test Item Value Reference Range Interpretation [...] in cGy 4000 (test code = 5717) [facility] DAILY [id number] 18:04:45 Test Item Value Reference Range Interpretation [...] in cGy 4000 (test code = 5717) [facility] specific [id number] 11:44:45 Test Item Value Reference Range Interpretation Comments DSA serum ID (test code [id number] = 5858) DSA serum collection D&T 09/23/2022 [...] = 5861) Case number (test code = [id number]) Donor specific antibody See link below for (test code = 1080) PDF Lab Report [facility] specific [id number] 11:44:45 Test Item Value Reference Range Interpretation Comments DSA serum ID (test code [id number] = 5858) DSA serum collection D&T 09/23/2022 [...] = 5861) Case number (test code = [id number]) Donor specific antibody See link below for (test code = 1080) PDF Lab Report [facility] [id number] 16:51:00 Test Item Value Reference Range Interpretation Comments POC glucose (test code = 146 mg/dL 65-99 H Ope rator Name: [id number]) Chilo newby ID: [id number] able: [facility]LY [facility] Notified technical services librarian Interpretation (test Abnormal code = 03446-9) [facility] [id number] 16:51:00 Test Item Value Reference Range Interpretation Comments POC glucose (test code = 146 mg/dL 65-99 H Ope rator Name: [id number]) Chilo newby ID: [id number] able: [facility] Notified technical services librarian Interpretation (test Abnormal code = 40909-0) [place] [address] [id number] 21:25:37 Test Item Value Reference Range Interpretation Comments SUPPLIER NAME (test [facility] [place] code = 6415) SUPPLIER PHONE (test code = 6416) ORDER STATUS (test code Delivery Successful = 6417) DELIVERY NOTE (test code = 6419) REQUESTED DELIVEY DATE 09/24/2022 (test code = 6420) ITEM DESCRIPTION (test O2 Humidifier Bottle, Qty: 1 code = 6423) Standard Liter Flow EXPECTED DELIVERY DATE 09/24/2022 (test code = 6421) ACTUAL DELIVERY DATE 09/24/2022 (test code = 6422) [facility] O2 [id number] 21:25:37 Test Item Value Reference Range Interpretation Comments SUPPLIER NAME (test [facility] [place] code = 6415) SUPPLIER PHONE (test code = 6416) ORDER STATUS (test code Delivery Successful = 6417) DELIVERY NOTE (test code = 6419) REQUESTED DELIVEY DATE 09/24/2022 (test code = 6420) ITEM DESCRIPTION (test O2 Humidifier Bottle, Qty: 1 code = 6423) Standard Liter Flow EXPECTED DELIVERY DATE 09/24/2022 (test code = 6421) ACTUAL DELIVERY DATE 09/24/2022 (test code = 6422) [facility] O2 [id number] 21:25:37 Test Item Value Reference Range Interpretation Comments SUPPLIER NAME (test [facility] code = 6415) SUPPLIER PHONE (test code = 6416) ORDER STATUS (test code Delivery Successful = 6417) DELIVERY NOTE (test code = 6419) REQUESTED DELIVEY DATE 09/24/2022 (test code = 6420) ITEM DESCRIPTION (test O2 Humidifier Bottle, Qty: 1 code = 6423) Standard Liter Flow EXPECTED DELIVERY DATE 09/24/2022 (test code = 6421) ACTUAL DELIVERY DATE 09/24/2022 (test code = 6422) [address]2022-12-28 00:25:08 Test Item Value Reference Range Interpretation Comments Ventricular rate (test 89 code = 253) Atrial rate (test code = 89 255) ID interval (test code = 140 266) QRSD [...] infarct (cited on or before 21-SEP-2022)-Abnormal ECG- [address]2022-12-28 00:25:08 Test Item Value Reference Range Interpretation Comments Ventricular rate (test 89 code = 253) Atrial rate (test code = 89 255) ID interval (test code = 140 266) QRSD [...] infarct (cited on or before 21-SEP-2022)-Abnormal ECG- [facility] CenterVitamin D 25 hydroxy [id number] 23:09:00 Test Item Value Reference Range Interpretation Comments Vitamin D, 47 ng/mL 30-100 Vitamin D Statu s 25-hydroxy (test 25-OH Vitam in D: code = 1988-11) Deficiency: < 20 ng/mLInsufficie ncy : 20 [...] please refer to http://educatio n.Q uestDiagnostics .co m/faq/AQY640 (T his link is being provided for informational/e deric ational purpose s only.) HOWARD (test code = FASTING:YES FASTING: HOWARD) YES RAC (test code = Performing RAC) Organization Information: Site ID: RGA Name: [facility] Lab Address: [address] [place] [phone] Director: Rakan Aguirre [facility] CenterMicroalbumin / creatinine urine [id number] 23:09:00 Test Item Value Reference Interpretation Comments Range Creatinine, urine 156 mg/dL 20-320 (mg/dL) (test code = 2161-8) Microalbumin, urine 120.6 mg/dL See Note: Referenc e Range: (test code = Reference Range Not 30606-6) established Res ults verified by rep eat [...] RAC) Organization Information: Site ID: RGA Name: [facility] Address: [address] [place] [phone] Director: Rakan Aguirre Lab Interpretation Abnormal (test code = 34112-4) [facility] CenterLipid [id number] 23:09:00 Test Item Value Reference Range Interpretation Comments Cholesterol, total 151 mg/dL <=200 (test code = 2093-3) HDL cholesterol 58 mg/dL See_Comment [Automated (test code = 5-9) message ] The system which generated this result transmitted reference range : > OR = 40. The reference range was not used to interpret this result as normal/abnormal . Triglycerides (test 101 mg/dL <=150 code = 2571-8) LDL cholesterol 75 mg/dL (calc) Reference ra nge: calculated (test <100 Desira ble code = 41871-4) range <100 m g/dL for primary prevention; <70 mg/dL for patients with C HD or diabetic patients with > or = 2 CHD risk factors. LDL-C is now calculated using the Pan-Verenice calculation, which is a validated novel method clark g better accuracy than the Friedewald equation in the estimation of LDL-C. Pan Palacios S et al. MARKO. 2013;310(19): 7952-0557 (http://educati on .Doremir Music ResearchDiagnosti Gamestaq .com/faq/ODZ244 ) Cholesterol/HDL 2.6 See_Comment [Automated ratio (test code = message] The 9830-1) system which generated this result transmitted reference range : <5.0 (calc). Th e reference range was not used to interpret this result as normal/abnormal . Non-HDL cholesterol 93 See_Comment For chirsti ents with (test code = diabetes plus 1 40070-5) major ASCVD ris k factor, treatin g [...] = Performing RAC) Organization Information: Site ID: [facility] Name: [facility] Address: [address] [place] [phone] Director: Rakan Aguirre [facility] CenterHemoglobin [id number] 23:09:00 Test Item Value Reference Interpretation Comments Range Hemoglobin A1C 6.0 See_Comment H For someone w ayo (test code = known diabetes, a 4548-4) hemoglobin A1c value between 5.7% an d 6.4% is consist ent withprediabetes and should be confi rmed with a follow-u p test. For someo ne with known diab etes, a value <7%indicates that their diabetes is well controlled . Q8ccnernas shou ld be individualized based on duration ofdiabetes, age , comorbid condit ions, and otherconsiderat ions. This assay resu lt is consistent with an increased risko f diabetes. Amie ntly, no consensus ex ists regarding use [...] = Performing RAC) Organization Information: Site ID: [facility] Name: [facility] Address: [address] [place] [address] Director: Rakan Aguirre Lab Interpretation Abnormal (test code = 78360-1) [facility] CenterT4, [id number] 23:09:00 Test Item Value Reference Range Interpretation Comments T4, free (test code 1.0 ng/dL 0.8-1.8 = 3024-7) HOWARD (test code = FASTING:YES FASTING: YES HOWARD) RAC (test code = Performing Organization RAC) Information: Site ID: [facility] Name: [facility] Address: [address] [place] [phone] Director: [facility] [id number] 23:09:00 Test Item Value Reference Range Interpretation Comments TSH (test 3.80 See_Comment [Automated mes cresencio] code = The system whic h 3016-3) generated this result transmit karla reference range : 0.40 - 4.50 mIU /L. The reference r renu was not used to interpret this result as normal/abnormal . HOWARD (test FASTING:YES FASTING: code = HOWARD) YES RAC (test Performing code = RAC) Organization Information: Site ID: [facility] Name: [facility] Address: [address] [place] [phone] Director: [facility] HospitalVitamin D 25 hydroxy [id number] 23:09:00 Test Item Value Reference Range Interpretation Comments Vitamin D, 47 ng/mL 30-100 Vitamin D Statu s 25-hydroxy (test 25-OH Vitam in D: code = 1988-3) Deficiency: < 20 ng/mLInsufficie ncy : 20 [...] please refer to http://educatio n.Q uestDiagnostics .co m/faq/JEP484 (T his link is being provided for informational/e deric ational purpose s only.) HOWARD (test code = FASTING:YES FASTING: HOWARD) YES RAC (test code = Performing RAC) Organization Information: Site ID: [facility] Name: [facility] Address: [address] [place] [phone] Director: [facility] HospitalMicroalbumin / creatinine urine [id number] 23:09:00 Test Item Value Reference Interpretation Comments Range Creatinine, urine 156 mg/dL 20-320 (mg/dL) (test code = 2161-8) Microalbumin, urine 120.6 mg/dL See Note: Referenc e Range: (test code = Reference Range Not 93753-5) established Res ults verified by rep eat analysis on dilution. Microalbumin/creati 773 See_Comment H The ADA defines nine ratio (test abnormaliti es in code = 9318-7) albuminexcret ion as follows: Albumi anthony Category Resul t (mcg/mg creatin ine) Normal to Mildl y [...] RAC) Organization Information: Site ID: RGA Name: [facility] Address: [address] [place] [phone] Director: Rakan Aguirre Lab Interpretation Abnormal (test code = 53097-3) [facility] CenterMicroalbumin / creatinine urine [id number] 23:09:00 Test Item Value Reference Interpretation Comments Range Creatinine, urine 156 mg/dL 20-320 (mg/dL) (test code = 2161-8) Microalbumin, urine 120.6 mg/dL See Note: Referenc e Range: (test code = Reference Range Not 97056-2) established Res ults verified by rep eat analysis on dilution. Microalbumin/creati 773 See_Comment H The ADA defines nine ratio (test abnormaliti es in code = 9318-7) albuminexcret ion as follows: Albumi anthony Category Resul t (mcg/mg creatin ine) Normal to Mildl y [...] RAC) Organization Information: Site ID: RGA Name: [facility] Lab Address: [address] [place] [phone] Director: Rakan Aguirre Lab Interpretation Abnormal (test code = 46814-1) [facility] CenterLipid [id number] 23:09:00 Test Item Value Reference Range Interpretation [...] calculated (test <100 Desira ble code = 56832-5) range <100 m g/dL for primary prevention; <70 mg/dL for patients with C HD or diabetic patients with > or = 2 CHD risk factors. LDL-C is now calculated using the Pan-Verenice calculation, which is a validated novel method providin g better accuracy than the Friedewald equation in the estimation of LDL-C. Pan S S et al. MARKO. 2013;310(19): 6767-8245 (http://educati on .Doremir Music ResearchDiagnostHooptap .com/faq/RUA670 ) Cholesterol/HDL See_Comment [Automated ratio (test code = message] The 9830-1) system which generated this result transmitted reference range : <5.0 (calc). Th e reference range was not used to interpret this result as normal/abnormal . Non-HDL cholesterol See_Comment For christi ents with (test code = diabetes plus 1 97134-3) major ASCVD ris k factor, treatin g [...] RAC) Organization Information: Site ID: RGA Name: [facility] Address: [address] [place] [address] Director: Rakan Aguirre [facility] CenterHemoglobin [id number] 23:09:00 Test Item Value Reference Interpretation Comments Range Hemoglobin A1C See_Comment H For someone w maggyout (test code = known diabetes, a 4548-4) hemoglobin A1c value between 5.7% an d 6.4% is consist ent withprediabetes and should be confi rmed with a follow-u p test. For someo ne with known diab etes, a value <7%indicates that their diabetes is well controlled . Q5qmcovven shou ld be individualized based on duration [...] RAC) Organization Information: Site ID: RGA Name: [facility] Address: [address] [place] [phone] Director: Rakan Aguirre Lab Interpretation Abnormal (test code = 07652-8) [facility] CenterT4, [id number] 23:09:00 Test Item Value Reference Range Interpretation Comments T4, free (test code 1.0 ng/dL 0.8-1.8 = 3024-7) HOWARD (test code = FASTING:YES FASTING: YES HOWARD) RAC (test code = Performing Organization RAC) Information: Site ID: [facility] Name: [facility] Lab Address: [address] [place] [address] Director: [facility] HospitalThyroid stimulating [id number] 23:09:00 Test Item Value Reference Range Interpretation Comments TSH (test See_Comment [Automated mes cresencio] code = The system whic h 3016-3) generated this result transmit karla reference range : 0.40 - 4.50 mIU /L. The reference r renu was not used to interpret this result as normal/abnormal . HOWARD (test FASTING:YES FASTING: code = HOWARD) YES RAC (test Performing code = RAC) Organization Information: Site ID: [facility] Name: [facility] Lab Address: [address] [place] [address] Director: [facility] HospitalMicroalbumin / creatinine urine [id number] 23:09:00 Test Item Value Reference Interpretation Comments Range Creatinine, urine 156 mg/dL 20-320 (mg/dL) (test code = 2161-8) Microalbumin, urine 120.6 mg/dL See Note: Referenc e Range: (test code = Reference Range Not 24616-3) established Res ults verified by rep eat [...] RAC) Organization Information: Site ID: [facility] Name[facility] Address: [address] [place] [phone] Director: Rakan Aguirre Lab Interpretation Abnormal (test code = 28289-7) [facility] Biopsy [id number] 18:28:33 Test Item Value Reference Range Interpretation Comments Submitted Clinical History w9funNIuPWUgyKE6VDJ (test code = 23984) wUUDix3spm8PlfDPztD RcCHaevNUdbjCyxw77q WV7fR70OD4yQNYoNiB6 SICkmjV9Lay3BQLkTTS pzEBaU636q7llm9tbzz RyjYY9uZtcOMAkazuuK dU5KLkgMZBlbcdcTWk2 GCqhZCEwrFB9PNFnyNZ iR4PdVZYkEX9nizo0ZX U1PRapKHWkCjU0ENGxu KKqPAVicYdvCDqyv550 OKZ7LfMuPZXpjbOobZi piL2jAtQyCVAUGyIZP0 OjinrjFQbtxbE9z3Gfa mUstaEnbb65LS8dPsqd wQI7DQZrcy8= Diagnosis (test code = 34) i0ohhNPgUIYzdDP8CSO nNLOge4hqa8ThlRHxyK ZdNZdcpBVuoiPtoj44v MA1zK32BW9zCCZcGpV5 WMEfrzI3Uqy7UABqIEC yoQDeD091l5mqv7tqfr JlbJV5GZDzJPDlJ1IuG N4cFZAdqKExG07nkRFu AMM9ZKMaFVAgbDBhEKX rKCS1VPScxTKmY3gfFF IoAP5cpsylTIhlHXbcU BQjxPT1HGRxnTFxA1Bs NTExZZqhNIQqabn7GaH lOy4fqXIhqFlaFBxgVS JkXHBsYWluXGZzMjBcY 8YwMUW4PFSqkF1fOYMs O5s4HEIyFRX4zsartSc dqdKysXEskimuw9ldof Q4QTXvnlepiIygTLeet C62EsHaF0WoITe6rBHx qOvpl1NrXmNmK4Kdaak mUVmpoxL6m3XvufG5jP NyBYXusaM4RNvaBTl5B S6mrR7wYIZhSRXoa6Qp hRS1KTButEHhwMUdTcS hdHVyZXMsIHByZXNlbn QgYXQgcGVyaXBoZXJhb GJviaHzKr2eUPxjrFAc ACTlMNKwe5G6QBTuVKi jkk9asKSbVJZizq8qaF DvzDCjo8ZjkmTkycMyJ g5npAuriMprlFjaZael YXJ9 Gross Description (test j0zzbDSkLBPiiIPLLKs code = [id number]) wMVxhbnNpXHNwbHRwZ3 SzfqzbUVziMI2dOU4rq DlhjXMhaQNiAN7ADJLe ZmYxXHBhcGVydzEyMjQ jZRIflJQgfFX9BKMzUR 1hcmdsMTgwMFxtYXJnc hF1SCGmxKFkS5NqEQSt YP0lfgizIHZ8TQnrjX0 ipwLWYnfuIk9lqQXpvP tcZjFcZmNoYXJzZXQwX SFdgLavUULvGRx4oN5Q MycpC79yb2W3Moh9UJU pLSLnI6DuQM6qFPSheJ UrF96NRcafTUZ5JROAJ swgVOInGT5Hh1cuXRIg sSByHNT7VFrqbCTsGDI eWXCcFHd5YLMeWJcjlV QmDN7gpBryZxipqPmed 2VjdCBcXGlkIDUxMDAy CGddNDIuWB1QQdNgSKD eQmQ5GJVfDIh4QTn5HW 7FHyHsCDCeNQSrLvX4J XGeIAo7AOhvWN6XPMEa NzEzNzAwOTEgNTUyNDk wDMu1VZUqYDtcNNMsoK FsIFxcZnMgMTAgXFxmY iLfCNVrFPmhctF7UDYi YWluXGJcZnMyMCBBOlx jZZAmCWfnrRprmP4hSV YaN90xm3TNf8FcHO0MS Bo6smTzxoozlY8tQNGg pxMwJOpshTQtF6bnVfv gGtKcTiPeKZSju9xchv wgcmlnaHQgcHJlYXVya PZ6rYEkLYAbWYUnCtjs MFxjZjAgIFxjZjEgVHd mFZBzGZNhj2PeeKezfH 2kHMJeWRUillGko3mhL UIgEHIqdYI2NBSxREKc JuM9GPWkGwH5SKGhVBM xvKRxwgPfTG29JChbKC 9mJDwtDC4bKXCyJWWcJ FxiMFxjZjAgLCBlbnRp xwLboDIujCEpgIL9ZMM caB6lBJQfVPVtuTGaaH JgpPyuBrdweJO6WSieK dzkrM1ngWEUVIKCYtpV OohpesBhUW8LFO5MVxQ FVZ74UhKnIXK4HAzHE4 SRdGQ7Fgi4NXi6hKwoE yjwuvMvkROoRqOJgP4X LHecLbpwwLA8IMqsCic wkU1uaURSUSPAFbaAWq zgmyDuPV1CZK7MPM8Ha MZxFVS4pTH4YNTPKred mON0xNM4kP51XIMoILG hpJMhIJsyL091ZFKqJG abUYu5gbVvCFNxHeTaU KwfSLTdP20ou8QLm9En LWErp7thsHuvr4YkbPR uZFxwYXJccGFyZFxzbC 4kVbOum1rnoHr8GYgbg yJ0ZSPmyo4rxTdhnZ3p DMtjf9xyHHN8UUVcsPT orHPhGQjzeZztyS4eOn XrJnq3CGakEIBmJ8YzZ 9PmxfM1SBDjNUzhYNRx MTYgDQp9 Disclaimer (test code = v4ydeUXgKVDsoWFjFkN 9844) jKZOvTJHvk2tpILJixZ FuZzEwMzNcZnRuYmpcd AQpGVNdAmOxw2wdf116 zKIsx0fkOEXlJvY5yME hUUAjiEOqO876WTOqMD tvw0uii5FaDBGezZAdn 2E6QKVEaaojzLv6hCgy J09lt8P9EbvpL2ddKLX cEWTeV3LkAG5rVZOoHd b6BIC1APK7MWFaEUUaK 1UaTN5qAKTrjLEkEFn6 d9zwtQowDKJjBYC7a7v wNSjdeoVtRI7tua7akX z8z9cjjbOwOVGyAEAgh APQBGTvE4KhiKxfZw2z fHh5nZlhUdyzBDA4Ucx 0QP7skc73dyd4dSbdEG EkrpwqDuW8FJlxZNEik uowJGd2HPooFSThnTY0 ZQSfySLjO3UwILZtOD6 zluc6TNJ7GWfbXQChGu O4QBTezYEaRSUifZziH Dcsa396OEA7UiVwWG0c N7Rzo2I1eH0lhXFkAJW ywXTsEfZaGVZogf3gsA EdHEjcu6OqJEK3bqU8m KXpsXSxVRTiDA99Dyll t8JbFoyjZXP6OTGgtgC ha0Syo5bmHbYwpcInT3 vyT5CxSRPnASUqBHWaI gSthnJhi4Gwa1EzuKKp tTf3s5ebJHKoHTSljPo yg6ifAAV8LKHkS9A2pU Aet7hoOPtxERGpnSQ4f fH2LJFylBOjK1PaeV4o MDKpWP4hcyj7e9rrTSJ 1VIdgDFYpBwI2mbU2AK BcaGVhZGVyeTcyMFxmb 281LPN8PpKdCJQon0Wh X8KnoUqeR99qrErjS87 xHBZlhQdqbX4wfGczmL 5cZjBcZnMyNFxxbFxwb DZxqrxcZMtsdpD2DNke mohbHGTvADvaS4yvOoY eNJVvvBbyWReey4XoXG EpUGPgAcsfwzF3SMHRb 11fKYZpf2EtQTOikG5o yAOcMSrkxtDquPO2GVb hdmUgYmVlbiBkZXZlbG 8iLXIkYB9mGIMschZef l4jbbHaMMTcXJMhD7Pa cmlzdGljcyBkZXRlcm1 ywvNqPFO7REHTXE8YVF EeSZSzv74fHXQfzWcbl T7ccYJzohCjPHRhp7Xb fI3gqDMUUFErL2ztAH1 eGSulw4NtvAKcgPIabL L1BEWkf6ClUzTzesFts KCazWZqA4HjiHmiI4zl CUHeSIGvxeEfkYPmd9K sATLboTN8uLIxJU3FSc CEp40dPZSdXVTEpxVxL QGooSlgcDW0ggQ9rN7i LiBJZiBhcHBsaWNhYmx oZKFwr832mh8lziH8JZ UqUJGpvheah4SaGFWjW YQjtP42QSWaLYGwqo2p cqpisVYzpvKiV2Wipqy 0jP5xITYiTDkfQSQpXJ ZzMjJcbGFuZzEwMzNca GljaFxmMVxkYmNoXGYx AMjkN1zfYiZxGfTmQil wYXJ9 [facility] Interpretation 2022-03-19 18:28:33 Test Item Value Reference Range Interpretation Comments Submitted Clinical History l4sxlTIdOVHizHZ1LOX (test code = 57416) eBAJxl4vnh7FrbLQebZ UuLNormRVgqhHgsy04i UF0hK12XN1yLNIjRhO6 RDAchjF7Znd3BQQbKEL qfVIoQ872g2xpk0pcsg OldKE2cNviILElhgrmX bK7JRopULCwtrmgZHr1 MQlqXWCzbVG7ZFHuoMG aS2MrVZDwZG0liqz7PL Z7EKlcHAZhVhW0NABxk GDfDYShsMdzMItwe573 OXN6KiUnXDDidwLooQs zdR1nYsZxJCVWQzQLB5 DthpnpODbysnV1d4Zqy dIuxeQurl38AZ1fFuru wOV9AOOdga6= Diagnosis (test code = 34) u9ybcIVwLFOulBB0OIU jOEWcc6ddl0ZnzPXtlE GiEPyqrAKulkDycg07n UJ5iN63CN6hXUDqNwX9 UKGimiS7Bte8EKJzEOC vrUSuV216f6vjh3mskh BtgVI3EAPiVYClY7PoR W9xVDJaxTItO68pnHLj DAC2XPCiRGFyjBLdNBM pFKH0SBFwkFHjU3xbKZ BqUJ4bcoyvZBefEJohR HGugOB3BRVacHZuB8It AIGtATqgKTFyfnr8ToE xTb2woJIguAphESfoZU JkXHBsYWluXGZzMjBcY 3KhMTF2OSWnuA3tAYTp V1d5RADvURJ0kdeczQm oobAyaMEmzogbb8krft M5FIQqwdeefUiwOBwyp E56YpIoJ4BiNFa0bZNy hWyfo0BzKfInL3Czmzg uIBxobmC5g0FqwvS3nX InJIJjczR4MCfrXFl5R N5znN6nDTCtCIVfr1Pe jGP4XLGqlAZzhRYcGnV hdHVyZXMsIHByZXNlbn QgYXQgcGVyaXBoZXJhb XUmnhJlJd4nXJwfwMDp IGTgERMoe5I2YAMzXEx yam0imEFsVCSagk9elC NuuZWwp7KbbyWhljEaF f5nlEldkSpysChjXskw YXJ9 Gross Description (test y2noxINmFUYidETVFCx code = [id number]) wMVxhbnNpXHNwbHRwZ3 CeaytsBDxrOR6zFF9rt OmklMPkmSPwBB3RAJEq ZmYxXHBhcGVydzEyMjQ zTTIznEYpiYW3QCZdVG 1hcmdsMTgwMFxtYXJnc jI4SRUlxPQcR8BwNAUa JY5wcalbFZT5DIicfN6 hhdMKMliyUc7cqWLwuL tcZjFcZmNoYXJzZXQwX KHhsHunQUImHQp0uV9N BdayE01gz4F3Bdh5YOP eEVQdC0IjMK3kQMAsbH NiX52ZYzssSSB0EXYRG eiqIKHnWJ4Gg1rpTZYj rYUpKBG0TIxfvCLhYLW dSXSlNTj1TRFqACdomE AkOR0zlUimAxsiiYspf 2VjdCBcXGlkIDUxMDAy BAepDVDtCH8HWlCgDOB jQuU2YHBeVNz0QVu5EI 9DWhXlTWJeEDBvJaF4D FJzXUi2JYbmGE1IMIDi NzEzNzAwOTEgNTUyNDk nNPv0RPSkPFiaZTKlhX FsIFxcZnMgMTAgXFxmY uZbDMFxXXpvbzA1EZGz YWluXGJcZnMyMCBBOlx wJUDrTIroxNpnfN6vLT KyM65fs0WUn5JnVP6OZ Ef7tjPibldvxB3xHAWf xvUeDJwkpXFtA3muLhd sYmXzAtEnQLQpz2zqwk wgcmlnaHQgcHJlYXVya GM5uQRlIALnANHkElzg MFxjZjAgIFxjZjEgVHd gPLBaRGOfd1UvzJdqbL 7iIFYnPPIowlIoj4bkW DQyRXVxzMX2MXPeXDZh FjJ0IRWzUhP4JARgBRQ inMTmvjEqOA24JPfjKL 3tZUyuTR4uALZoKJMpT FxiMFxjZjAgLCBlbnRp avMdoLUiqMPgnSW3CLE aqC3xUMVuVXDsdIRgrF PixNzcBkfgxFS9PPahI vlqiS8mdKQYEIZLPpkD HeeoelCpPH9RLT1ULcQ ZIQ45NiYhQPF3LAuSB4 QVpKC0Fuv5FFr2pVfmF svvbpDbxMVwYbJSoJ7T XZcuJnsncFH8FAhjIqi csR3bkLUPBDPFWtzRMg bnjkVoRO7CJQ4VBI2Tv KQhKUN2sUJ7QKQNLrnp hIX0wQR0rG42DWZgLEN rvTRwXYfiF547DJJhPT kpMCr3ifNzORZuKsTmV KuaWCQtI70vj6ZYm9Mz MCWdp7mflUmku4PohHV uZFxwYXJccGFyZFxzbC 9iIjHel5jgnQw3VBfgy vT6KAYvjo7tiOzuaA0g IEknu2ukINS5ZMKoqCE tuPNzTPotqLteeU6cJf WiIfq3QUquQGDxU6UfC 8YhtwS0FNTrRAulMKUh MTYgDQp9 Disclaimer (test code = u5oceOZdEGInzPWiRpQ 9844) hCWMyMHPdf5mrWVGhdC FuZzEwMzNcZnRuYmpcd ZEiMTCvNdKto0mqf576 nDVwq2fySDJvCyA2xFN kWJUzkDInP185TGLiCA ker2nxq5AyFZKnwZGtg 7H4BSYDanlqfTz9iGtp N05eo6O3YmoxH9rkHXL iMLJqQ1IgTB8iUZNzEi t0BJB0UEF2VZDrUSBlV 2ZzLQ7vCHWpfMZzNXv7 d4cirEmpHAPqOAY8n6p wOAkhjgOaIA7ubn2wsV a6l6exedYzTSTdRYSgg WHOQSCsP8GrkQuyNi8e uOl4wDwpCvnwDDU3Wct 5XM7bfi94euc3uUwxKI BnpootJxX8SCvlXSCqi rkmBRq7MFwmSFNvvEH1 UDTnbCQpQ5JfSHHfTG5 djsy9OMG8TRroJMIkMn F7KYOpqTSjSTSjfFzuQ Cllr078TEH2XwAlWV7i H3Ptz3C7jF5sgAIvKEA zoKAiLfRtFSXtft8urL FfPZvdp9JqTRB1agU6s WLhhLJdGROjMG18Vuon k1PoXfgzGJV5ATWwenG lg1Gdt3fiQtBvplSfR1 msK8ZjFXYjADJaWAIjM qRgiqWkc9Eck2MtnKEi mEx7k6ksFCClNPTlkFo qv1ewCPR1RNMhJ1C6jM Vbs5gyEQmyLCWmlIS9p yO7FHNefXJrR6RskZ1h LTKjBO4yozy3s8gyVZK 5HFcuAUCwFwI6shH7WT BcaGVhZGVyeTcyMFxmb 824RXY1KvWbHWLtk9Wv Q7VllQozC53fsIlzQ95 fBIAaoItwrE8kvXdltG 5cZjBcZnMyNFxxbFxwb SIbuuoyAEcaugW6GIfx jedlOYRaONuqP1gmOhB qYXJqcDsuXXsln3CcVV GkVTSqQmfyslJ8ZZGQp 39eXTPzs2LuTUHxsL2t dNWdCDyersUquSR6CEu hdmUgYmVlbiBkZXZlbG 4eNFPkDK4vZDJobzBzw v8xeoCvHMTsFXZvX2Zm cmlzdGljcyBkZXRlcm1 otoOjVEQ0PEYQDJ3XTY YxETSmd54mOQTpbQlbw O7ctVCuynNhPGFrr0Ag qO6uuNHDWYYxH4ksKH5 rVNlub3LpdXGbxRXbuD K4FVEif7XdDcFnsxGed AGzwHBvS2DhnUvgN2aj WQOoCSIremSlgTZnj5T aELVvcDF0iHLaCU6XEu VRc45lXPJoCGIPzrYnI JSbwUumxEZ9ngV1iS4q LiBJZiBhcHBsaWNhYmx bFFOxz651yi3hccM0BS OoTPLvayfbc1EkXSYgW MCknL35PZYxHVRxwl9o eyibdSHrbpYhG4Blipb 2rS9uZWUbACnbNQGbQW ZzMjJcbGFuZzEwMzNca GljaFxmMVxkYmNoXGYx JGgoN1zxGoIdKtSoLws wYXJ9 [facility] Interpretation 2022-03-19 18:28:33 Test Item Value Reference Range Interpretation Comments Submitted Clinical History y7tpaLHhSWKqzDB4CXY (test code = 21658) eUKZxr3rlm5ZmpFTaeR UdIUjpdAMvuaQjrt96t DN8sH05NF6fLWIuFdK4 THCpyyI4Msj5IOYlYKK rkANkS028o4cug1znkx AbcAX3tZgvRVEvdqspU aZ4FKqzDGSgsqooWVz1 OHodRDZvgUF7KOMimWH qZ7CmCOIkVO8uiim1RN I7SOxvBCFpGjU1CQNkr NWaHAQtyKmsCImua869 HPY0LnSfZCUydyFlqOw urI5tLrBzPPHIDzEVJ2 EnvlkgFAoepmX4x5Vcs cOtznYlqo37WB0wCplg tZC5ZVXytc1= Diagnosis (test code = 34) t6zxnCNlSNWzpWU1EQA oRABwx8oqc8KvzMFzoB JvFFansEFgciHudy06r QS3tY59CG5qGOSeQdP4 HNQariN3Dhf3TFXoGIP oeOVtC467i9rec2iega FsqUU2NZQcGDQhL3DuO M5lRCNqtPWaR08jeWSe MQF0MHGsBQMehEMpWYC sYAG6EOEvgBQcK7jwJH LePJ7eugpnMSgcKFetB TCmkFU5LHQueXZpB3Tn YMZkHYeiDQDjstn8NbC jHx5kvPMlgDqhJDbzZP JkXHBsYWluXGZzMjBcY 0WcMYH5ICKojA9mEKYk I2b2YRUbILR9qfdpqZo bgtRhpBIdbzazw0nirc U8MLVlwtvdsXdfQAqeh O55SdJlD3CeAIi9zSUi yVnsz5AaZyXdB1Qbiqi oHAseozB7m9MxisO1aC QjKTJajkI2LOwdREv2I W6gdX2lYOFtOZRlt5Ox nLK3BUJcuKHiuZSrWtZ hdHVyZXMsIHByZXNlbn QgYXQgcGVyaXBoZXJhb PUioeHxRk5zOOpkcZKk DEQzJTQmo5A9SIGhFNw pay2bzJSoONRugj7jzT FzgEWrx7IzrnFwmlZhL d1viRqmkNkocMcwYnhk YXJ9 Gross Description (test o1mzwUBvJUBhnVFNKSr code = [id number]) wMVxhbnNpXHNwbHRwZ3 KcyucsBBfgQO5jQP6ns WdkzKVxyJIdSJ9ZWFBg ZmYxXHBhcGVydzEyMjQ eVKGihINkdNW7YIBkGX 1hcmdsMTgwMFxtYXJnc tQ1QLZlqHPkD3EdAAQv SG5mndchQSD9JQunhS5 dtoUGDfmxTa0boZRtcW tcZjFcZmNoYXJzZXQwX RKjpBqxERIqSBg0sS8S TodsE29ia5Q1Uiv3WQB vRYLgG6VzSL4nHYJgaX ZcK76IRfduYWI8WYFWL bnpTMNhKG8Rf2tuZLGk iNPtPAW1IEvckLLcBYH hZJEwKKh8LUCgOJlspX LtNR2hbOkzJryjaSrlj 2VjdCBcXGlkIDUxMDAy XYsbENQdQX5DMyTwPRD sXxM9OIMkLPy7UEo5ZC 7SAjYmSAUyQZIfHuA8W YChEXl0GOiiBP1YYOJi NzEzNzAwOTEgNTUyNDk pENj7UDXhXFakKVBlgN FsIFxcZnMgMTAgXFxmY hXeRRBcIXfhldK5KFTp YWluXGJcZnMyMCBBOlx sTKUqIVebeLsoaA7pPQ LhW65nh0SEi3TpWN2QH Aw4zcAswmvchF2zAFKo ogFpHAvzqQAuI4ntTzt zHdYcJrNjIYCjo9tsuc wgcmlnaHQgcHJlYXVya VF3iRPnPQAbOSBwXima MFxjZjAgIFxjZjEgVHd eTEKlHVCic8RcdPdoyH 2iFYTlYVRvbxGla7hlS QFrHJBrxRE2MWSxXCVp QmU4AMRhVxQ5IERlTIC saRVfqxOcZS86UTtaRQ 3jTUzcEM7aYVNgWXCfT FxiMFxjZjAgLCBlbnRp urJvyMOerDWgePB4ICY bgS2mEXLdXGGjsWGzhH DskTxlLkwgnPS7OMbsA skufE9fhPBJXJYWDypR RodpasJzLS4OOU8VAcG SPM88LuHnRUM1VYaKK2 WKeHA2Xnv8KTs0dBjhV vzcunNkcXZkRuABoR0R RDkpQidxfMQ1ZMfrIuq uiK8kxMTKNFVBNvmFFk pzvkMtPW1EJO4SAP6Wk TLwQMZ1cED4YNCSHkzz aBA0rBZ9hC11RUAkFJI jeAAjHNduS702WFFgEO mjWDy4tcVxABPaDrHfC IqdLUAbF64dr6CVp4Rw CQHeq8ijuEawu2NgwHE uZFxwYXJccGFyZFxzbC 1sBfSyb1gbhGb8JStfv xT0JFQqyx6qlBwrvQ8b ZKmzz2ckGRT3FTXxqQB onVDjRJsgmOyyfI0sOq HyByc3RFttIHLnT5HaE 2AgdcF3KMGtJDqaTJOe MTYgDQp9 Disclaimer (test code = m6mmuGPqZBZcsEPhGjU 9844) jHBKfWAEjf9emTKBqwV FuZzEwMzNcZnRuYmpcd UGgJMRlSaHts2qnh702 cNFst3zhNLAvNuG0gBM sNLBnkVQeB996RZAqIQ eru9dfd2ScCHDenPZfk 6T6YSHNrkerhVr8uPht I51ef7B9LjfkD3ijJCM cTDIgZ3ViMG0iJARoYa n1ODX8MGA2CRDoBKBbO 8NfWI7bZPKuyTVeEAe1 g4qleJjmHPLkZCG8i3c eIWregmUpRF9yok4ruD i9l2mhofYvTOCmRGFiv FXACTGxL2JldYsdTb2a rMg3zQasVflgGIY6Ihs 3EA5wkm40rii7aVlnIA QqjoslLwY5OYquYIFzx iahKFf3BCweIAGbmND2 EQDwkCHtQ9GzTRQdTF4 paie5VOC0KDroQHZiZx A1ZCHxsXSxFEIhqVwzW Fcwc800TJW9KtCzDY6z J7Oam3A3gL6lkUJpCQR ezWFdXlMmBRRghr0gbS VoCCfkc3QmNBB7jjB2z XDvuZWsSJIqLW25Rlmf h9EcIyndOVP7QWFgnvX xt8Nnt9fsEgAsuvAkB3 auQ3SyEHKzUHVxOCCrY iAfxiHvm1Xzx9DkfAFq pSg6q9aaFPOiRYQvmQs ct5nnIPQ7XAQmR5D3hB Gmv0yoVAzrAQZxxZU5c jW8HDHrcJZqU9KeqD3t YFGaRO8rskq1b9mcTEN 1TQjvZPJqNiW7omQ5GS BcaGVhZGVyeTcyMFxmb 458NCI6QuHsRGXrj6Km Z2LskQfsS41lpTxaG24 xPHUjcRbjqT8wgPrtsM 5cZjBcZnMyNFxxbFxwb ZRurzbbCRbjgkP9FEan cxbcKYHqWYqgH7loAlW nUSTycEcfVSjgo3XiDA KkPTVmLlulotX6GFFXx 14yJFVut6VyMHGwpD3t nBXaIZyfkiOnxUH0HIx hdmUgYmVlbiBkZXZlbG 2yMUSySJ4bJYVnokZrt x6bodUsEBLxQUTlO2Yc cmlzdGljcyBkZXRlcm1 xtzVeHGM2LIZIJQ1CZC IzNJSfb89fJDQekWmtx E7vlHFbjwPfZHFrw2Co mW0qfMEXDIAwX4knAM6 vNYfkn0LrsCMdjHNcfF P2KLLko6BnHfQotdJku GDtqUQqE9HriGfmU7ks SMVyZJWsqzTtsDKoj0H pJIMuzSS8tOSuLF1JSi GVb34dFVQwFQUXvhRiM WGrmDwtpKJ7nbK4wZ9z LiBJZiBhcHBsaWNhYmx xLVTzg960ek7fdtC2ST MnDLChhbfbo8HcQJKnO UPzwM54HQHlZGUxyo7b rgherTGvuvIdL9Wbppi 0kQ4fSXAlYDeaSAXtLO ZzMjJcbGFuZzEwMzNca GljaFxmMVxkYmNoXGYx UXacI6vpEoTsQgAdXmm wYXJ9 [facility] Bi[facility] Interpretation 2022-03-19 18:28:33 Test Item Value Reference Range Interpretation Comments Submitted Clinical History e0oufJLjCGTplHS5POG (test code = 67199) eFQTam8rbh6KbiOEtiC ZnKMdfdHRqmdEqda89d OR8bX31NZ5oDMDyKnM3 MQThwcT8Dms9GJZyPTV tfYIbU891e0gxl8wepg GwgWL5kEwyLXJovskuD bH9WSrmJLMcbsmuJKz3 EOjqQEIcvEX3QSChxBB yH1YpSVDeAS7uyro8KY G2NYhuBVLuNzW7NVSju IDmUCFdsOdnJPuhp268 ILA8JgVkFLSfqwKerQu gcU9tOgWzIBBZNhJMH8 RjezhbYJzdzkH0c1Ivw bAusbYioc00VD0iGjae dWD4SCBybd6= Diagnosis (test code = 34) z0qfoSNuTYPvtOD3ZYM mNBHcw5ujh8CwkXOgoV HnXHxqcNQljtCyuh43j KK5sT24OA5lCCFvVyU2 QTLnymP6Msd1ERZeRAR ovWGrI240c9sov2lzad TbrYJ6MCSsBGEgA0BfV M7hSYXiuMOhF59jqRIb ROM0HZRqAEAafORtPVI eGZW8LKZfmTYqY8kyFM KaQK4frbqjVRaaEWvkD OHjjIB2XSIqqOZiW5Ep XVRcXCkxRPZfoky2HaF kFt1udNKypTutIBmcJZ JkXHBsYWluXGZzMjBcY 5FiKUX4NHBcoB3hYVUv M1z7ZILhPSS6umksxJx rziBsoWPvmppbd7uyek Q2CBJyzzhigOllFTcal A41MbNpK7BkGMi4hTAd aGcaf5VvYwVuB7Qauga sZWshirS8i3HoyaL2uT GmKLNgwnR3ANxtWDi5W M5txZ4yYUDbSQRpk0Wr zBY7PEBwzRSaaZJaMkY hdHVyZXMsIHByZXNlbn QgYXQgcGVyaXBoZXJhb UYhszGtNc4gVYaclFCi MWLySPTan7P3GCAbKDz bmy0qeESsLGBpyh6vcQ DalKNcs1NxshVcyrBqM q4sdHyhbCvyjFtkRhab YXJ9 Gross Description (test t0chyEGxECEgnTMMLQu code = [id number]) wMVxhbnNpXHNwbHRwZ3 DmfrobONhfBE3mQT9ax BawoJPmdGHiHB2AYCVg ZmYxXHBhcGVydzEyMjQ nNOOfcXSyhGB6MEIwFI 1hcmdsMTgwMFxtYXJnc bG2DAQcuOHyJ7DuPTKb WO0rclkzHQI6QIjbpT7 sxbTJSfcrDl7ygIStyD tcZjFcZmNoYXJzZXQwX MWosZwhMGSsNFb9xI9P JxxhX71tn6Q6Seh4BWV kGXZmD7IbKQ7nLKQyxM TdC10CUtdcCFU3HJGEH mwmRHZaHP0Dv7rzLDGy rPNkUVI7GUpvySTjCQF bKHXlAXt9NWUdTOxgwJ WtIW3kpYzxEdfawHfdv 2VjdCBcXGlkIDUxMDAy VOdkCYWoKH4IZjTqXRN qAsA3NAEeLMl6ZVl8BP 0SZgUpJJVfOQFmArP5W POwBUu8UUiyVZ9QJKEl NzEzNzAwOTEgNTUyNDk oGBm3ICRsLSfkCFXwyA FsIFxcZnMgMTAgXFxmY dPwWTWlJWwegwL0AHEa YWluXGJcZnMyMCBBOlx zMOZwEMwyzEzgrQ1xLX UzA42sb7BHk4SxUW0OB Fs3keYgsnkdxE0pEXYq okStRBhnzXDdA0riAzd eXcRvNxGyNAYtw5nkoq wgcmlnaHQgcHJlYXVya SH6cFScXIFwWLMrWwuc MFxjZjAgIFxjZjEgVHd jASJyZDWco4YalTohwT 8uQKMiLAWzevFjr9ivP EMmGJUljSF9GLGpUKUw QkJ4ZNKqWoH3TOWzGLO qpQLuriKvCM70FOyyHC 9vOFjtCW7xXNXpSMIiO FxiMFxjZjAgLCBlbnRp dqWrqDJpsWHeaTG0ZNU qyY7pIFHrSCPnyEAqpX YaeDlsLgtjmBO2FCnmJ yplrT6jsYQRDHEYGwfD PdxuluBgXG7FGH7LPiG TZM96YjUjPYS8DAvKE1 NSpFJ9Mtp5MYg4mHidI emcofPttJGlYkPDmH6X DLtwYzymnNH2BQuyHgw juR3zpFAADOLORwyKIn ptsuYrXK8TCR3WET8Qv EWfYXR3sZQ1QRWWNmyu hWZ6mFE3eY40ZWXnCRN hqABvQCggL643NUQfBM wjLLd4qdVfLPXkYqJeK CxeITWzG87is5ZCr2Jo SCOhi2fgnGgfj7OxcFR uZFxwYXJccGFyZFxzbC 1lDaJie2dyxLh7UInoa aI6JCJdyv8yoVyyaX3p LXgma7zzTUZ1VLAuvYW ycSAlGViliDibpU6wOs XcCsl9KKdfHJUlG7MtN 4HdwkB8LRFmMPvnCFZo MTYgDQp9 Disclaimer (test code = g0iieJGkAJIlbDUnCfQ 9844) wPSFtYGDvi8mnFYXnpT FuZzEwMzNcZnRuYmpcd ELxRXEyPaIwh7lpj933 wHZzj0rvBXHfDwF5cIC yEWLcxCJkZ029GPXtWI kku5bxa1UwTQKqsISgh 2K4MOFLthmiwFz9cEak W58zi9F5EzxaF7gkFZZ rJWCxY5DdRX7dDKLiFb o6XHN3FFW0OBOfAXDoA 4QkIO8iPDHenEAhWEw9 f8iepBklXSKdZAV9p2q jTCrbndNfQG8jnc9tgM d7r4rknlCuJFFnJMMwl IYYZYVeE6ItaVaqQr0p qYy3fZnmGbvjGEZ4Tum 2KN7meo97ibu0wSxbVP KyfqefKmB4LXfpCFMom hbdIWl3LYwjQQTskLY5 VMCinGMxJ0MwJYQiYS1 ysvb1SMQ2HEaoOIOzCy B5LZQadFEoVRBaoFdlG Hotw172EGX6VcRcRA3a B6Kws1S5pR1byPVkJUM ifFDyDsRwAPBouh1oyN SyBWqyr7DiIAH8znX9s AAjuNZgQQEmFD89Aurs s2DqFdvgNNH1NAMzvuJ fm8Lqz8nmDkRvhoVpH3 mtF8KgUIJlHTLlBRNpG gSbrhNtc9Znc6WexYBk sPi4z9pcSHThCCPxuTo jx1wcTCP6DUJnF3G7iQ Hdx0ssEJpyCFAuxLA2w dD9FUHbpMReL9DpoF2u RLQaNA9ujja4k4juPNS 7NXihYMLiDzF0apM4CF BcaGVhZGVyeTcyMFxmb 923BAK3AyVcOPMnn3Fa L4RylYfhK61jyWvdJ72 lYIOodIdnxT0duMvzuI 5cZjBcZnMyNFxxbFxwb VHpkeehPAricuP8ZYvs ejxzTNUfYFbmL9ntZrI zZEAbbOviOIobw7KvOS ZyVLZsYvenrbC0SESIv 70xLJYik7ZyFKWtlF4y yIPzOArkjdWacWO6JWj hdmUgYmVlbiBkZXZlbG 1qRWXiNQ2zRXHmhmOrg h4qftMsBSKeIKAeJ2Fq cmlzdGljcyBkZXRlcm1 btjHmAMN4AJQTUA6UXA VsONYvw74yLUZcoXrdt K8zpADgtqNbFNLle3Yf qL2ftVLMGRYlR6ekSG4 sJSjwe4HbsEVvxNSkqL D5EGJvu5UtNfFblyAey ZZdbMOrB2HmwJlcM2ln RZBmMOChxbTsoHStl3F uFITspTX3xUFdMK0RTw QBj04wUNKlRRFRkzBzM EQuuShftNP1zmK8eM4z LiBJZiBhcHBsaWNhYmx aXLHvc907up3dftD7HD IrEPIdwojdy7GdDZOeL MHqoL33BGAlIVTdlj0o jvaweYDpvjHpE6Wbcuv 4mN3wJSMmIXlbHAOoDI ZzMjJcbGFuZzEwMzNca GljaFxmMVxkYmNoXGYx VNcpD7kjRhBfCnSaNek wYXJ9 [facility] Bi[facility] Interpretation 2022-03-19 18:28:33 Test Item Value Reference Range Interpretation Comments Submitted Clinical History n9otpOVyLXYrhMN2AJH (test code = 62451) rQZEta5snp8RqsHRxbB QhRLpcpEYarqMzow32h CB0uM90TC6xJKClLvD2 TSHqdyF2Gfs3WTXyMSH ptWKkV167j1sdc7suib KlpEE9iFluIHQcvnrjO oK7QXrmDNTdemqzMXl5 UItpEKUueDA4UAKylDZ iY7SpUSXoYE5wtkk6AT D8EZzyZMCtQtG6GIZsq PInIRGasTyhXOitu910 TBD3MaQiEAVsqbYgaFn ngK9kObCgVEFMUuEDM2 GmvkeuFRwxqzW8w2Iwx cHzetZeco04TO3sRzey wAR0MBOdgv0= Diagnosis (test code = 34) f0kguAOvZNPsaLE0JHV bJUIra4fke7RifQJwfF DcUKtxoYHhrnXphi03e QY8rY10JT4pINKkTjT6 NPQljqQ5Hmb7HNBeBRS wiAYxQ029h1dlj8rrsq ApgQQ4XYErKCZtR7AeV H4kBUDchUErS56aqDGq ILA6ETTvRATawZRwTCO vGYT0SHFuwOKgY7ebCT ZpZH5zoinaZQylLTykF MDstHP8OROezFAoW5Cj CJMeEBpyBCJdisx0UbZ gFo2nmKMijZffBMxuAU JkXHBsYWluXGZzMjBcY 2XzQLD8OMZjlT4iYNUn P3n6BJKeALX0dtfblCm ofwHykZHlqbmjz5bdau Q0ZQQebxntbGcsBQlje U08WqAsY5FtCXl5dUMl hIxdh0OtAzGcP8Tdhmc gDSboelP1j7KldhG5aJ LrVHPiouE1UMrbCZj9M C0dzA3oSUPhFFPhg2Cq bUD6MAWbzPRqhAJeKvF hdHVyZXMsIHByZXNlbn QgYXQgcGVyaXBoZXJhb HQgjiMkFd0gHAyecQUl XVZjZMBwb5T3QJPxLQh jrv6wmULoHAIehg9blI WobKLeh1SbqrDybfSxQ n1ovVkurIusfHxgAvof YXJ9 Gross Description (test m0hioMJnLIVueDPOMBu code = [id number]) wMVxhbnNpXHNwbHRwZ3 UuhyyqEPaeST7gNB4ax NwxkGCcuQLePF8IZUKx ZmYxXHBhcGVydzEyMjQ gUDMiuQDvqAM2ENLlGU 1hcmdsMTgwMFxtYXJnc zY7OPSylGKaJ8JdYZAb WZ3xdzsrAXN0CBpwzR1 hnvUZFnzuOq5pqWLmcB tcZjFcZmNoYXJzZXQwX RQfgHceEZLwYFv3nN6J FaimT25iy2V1Wjl1CKQ jNHRbV6JlUU2lBVTvvI UyH37CMraxORI6ZQNVF dshHKVtPN6Cw5jcLFBw bFTbRRC5MDnldTOeSJY cQYIgZRa3CCThCSqjdR EuER2scVnlEwexuGowm 2VjdCBcXGlkIDUxMDAy KYccTQDlGR4TWkIjQHS cDxP6ANQbIFx8PUj8EW 6SDyAfERAtJRMpWqT8W GEoRYc9NPcqCR5MCZUk NzEzNzAwOTEgNTUyNDk kYZp7BKWzIYdlCQDlqD FsIFxcZnMgMTAgXFxmY eJpSHVoDNlpmiW1JXGp YWluXGJcZnMyMCBBOlx xYLBgNSqkbSrxeU5aAM GkY31ve4DUz0FjYH7RC Kx5ekOiqzwzcI3nHVLn ckMnVZtphUDoB4hiMfy hGaWgTsZmKRJch0ljxm wgcmlnaHQgcHJlYXVya VT7uSNbVYXcCVWcXswx MFxjZjAgIFxjZjEgVHd iMQEiIWMlb6CkxEfybD 5gYZJmNLOazwGuq6hzF GArXNEfsVT9GBTtPEBy MaK4WHDhYoH1PONiMVO otIEyqjQkCL90YVgnOL 6fTLcuMJ7wNMQsYFQbU FxiMFxjZjAgLCBlbnRp phEccJOfaNPyfNO7BAN vmU4kRBFqWFDcyMEdhC HbhWxxQhffqHB1ESxmV pdhbB5hiETHFWHSZpjG PpzcauTtHM0FNG2PLzO LWP31LgHkADW8OAdXV8 MXjIJ9Txp9USr9gKudS fwmeuZysVGrEkBYpO3U UUzhLoxfeUJ7RQstNsf itW9etVTQZELIRtoFDf hbqkLvVT4LVV6GGR0Rw QMpSNW9xRS2XSPDSjkx hPG6uQU1bY65AYDiVXT igJGnPFymM199FYOxNF wgAHt9bkTiNXKyDrCfD BdhDLJqI72wa3XTq5Hi KGAsf9iqjFgxu6VsdEE uZFxwYXJccGFyZFxzbC 2fFtNry6vppTq3SKoqp kZ7NQOwgn3ecIeuvU4k NMhln0amSUF8MJBbhPN knCMoGCbrpRugeB0hYw HbIek3HZdpELOxT9BrV 7DmzbQ9NSArIMfhJDOp MTYgDQp9 Disclaimer (test code = m0vxnAAbHYBztTKdNnP 9844) uLBQoVMPtt7pnWZGsxL FuZzEwMzNcZnRuYmpcd AZcXOGzUrKoo9vsv710 yKRpr4clKHWvRoM5gBS lSXHxhVUsW255CGAhCR gzd9fhu6JnPQAcuXYta 0O7UBQAgxbjjLf1wBqy T85lp8B9WvhrA0nyHLS lWZQdX7TaFM3wIBFhJy x7SVI2EWI7SOMuXXIaU 8PsTC1mWFYdrVYpKPz2 i3lpzKocPZBsGYX9w1s yUAhrbaUnGT9hqk9azD h3r5epenWxBWVbEYEdy TDVYIUoF3WsrXihKh8r bEs5xQloVubyOWY2Wwe 7MK0qvu00fln3hMnuRM CiwcudWzU5XHjdDQUtl hawXAy7BOaoSRKwuTI0 FZYpgOLxC6YxEMRpTZ0 lpid6GPT0IQxtAZYlCj H5ERPziEMvJXPtyQjxE Svvc508YAA0TzKaTM4r V1Hnl8T6eS4zgQMqDBH rvTWrKzZeBRTeyu5kmA FuUPdfy1GzNLZ4njH9j NDicGBkDKYoIF93Jywu c7MyTwaiSVN1DGPwlfY mv8Nvs6kwLzQvdtLtF7 jkQ3QgEHPiTZQjHQBjQ rDphzNgv5Qtz7LgnNNu yAf7b2lmVOBhGKYnoTz ig7mbZYM4JDNtG3W8hU Via7lfIZamPICquJQ0e gD5IINkoVAmB8MxcR6w KKKhXH7fdkj5w5laLCC 6APaeUAMyGqQ6cgE5MC BcaGVhZGVyeTcyMFxmb 224TFR6YoBeRJOmg4Dq R1QjwVhoJ59qmVdjY04 aTZBfuMimqX3czKkhcW 5cZjBcZnMyNFxxbFxwb IBepdlwSBlwycC6CIng ybadESSkXPxeF4ohKyV gNNYjiUcfKFrix0MzOA VcNDUpOhztrmU0KLZTo 25hJOUkk3CyWWOhtC1e dIXjQRjzmfNgcSQ6XWq hdmUgYmVlbiBkZXZlbG 1gJUMnLM7aSUOsctZub x6kygHiPQHuNYWuD6Wh cmlzdGljcyBkZXRlcm1 pvpAfVTI1BDAXAC3DQY JqADIcr97lSYWepTzos B7zdEJkgvAjAAKqj4Xn eT7wvNSSQDYaS5jwDF1 lTZfzg3HojGNqbGPtpK F0WKTxs4YaYmStcgWba EPwkLTzV7UqqWpzI2wm LLKsLDNskkOamVMwq6S zIXIroDO6iEUtXN9OGc VKt65dQYEqDOIJdlFtS VZpgYomkIF6awA8uX9e LiBJZiBhcHBsaWNhYmx sZOZfx333ar7zmsK6RI YkXYXyatcsn2WuGZPcH CThxU31KUKgSSJwbk9u fpsfkTTbesXfD9Uktrn 7qI6pUPUbZEgeJWBtFK ZzMjJcbGFuZzEwMzNca GljaFxmMVxkYmNoXGYx BKxoD5wlCvAmMtWnNos wYXJ9 [facility] Bi[facility] Interpretation 2022-02-17 17:05:35 Test Item Value Reference Range Interpretation Comments Submitted Clinical History i5hczNWjLHShtOA2NZX (test code = 01239) tERTom9vim4UmuSAmsQ IlXZwpwCTkhbBpyy14r GM8wL28WZ5nTGZqXiV9 ITHrzqI8Ndn9KOZyPTN weDKjB242g0hup0rxif OmqUQ1iUmtLHXhpoheK xX9YMemIYAcedrfMBg3 WIwcCSTjaXP8QXWmyZW tM3GnRAVgCV2jhfb3RA I1OEdaOZKqJsA4BQErw TMyFTZuvKofKJeph837 BYM9GpMoWJJhmxUajTx vjW0oJwKnZOPOdCBroB 91cyBjZWxsIGNhcmNpb n7sOUEuQvNrz1GfXYiK DzUfPF6lqNPaAIU1PTw QBoH2osSEX1DkFAThrr 0= Diagnosis (test code = 34) c0yooHJgSTFidZM5ZJX sPGJlp6itf6PmbJMtrX PdXPexuXBjefCeia85f GZ5mG08BS0wQNWeTmW3 KSUccgY7Iuc5DQCrEVG utCJbU633q1grc8seqk MakVO3AVNbAGFqA1UcG H8kEAIvhMYmM56ihMYh BCL8HPIgBPXsdAAzPYI mGTN1XCNtrSDmS5vjXQ FkDF5siuvgEKwoUCogF JFdiAO1RVKwxCMfL8Rk GEJnCNbuSCXiowe7QtF zZn5qbZHouKviKIsyYN JkXHBsYWluXGZzMjBcY 7PjSXQ9APCbK9s4YBx7 P38pCRygt6rqvePkyPQ 2ZTpccGFyXGxpNzIwXG tokmqwCOcyJtDiOr4SK SogJ5GKWW0TCNJgP7HF KILKGUBXDA3JDXByEOB ED5gUVeDFKsGRBYIOJ4 sXNp1RAtXfN2PwZCrQR VJQTEFTVElDIEFDVElO SVUjE5KVCUOUA2xBJTN TXRVCICDVKInXB5YTRZ EzEA7UH8aTZG1RXzZwY FBSRVNFTlQgQVQgVElT Q8KSHBUJH7KQSjmcISZ iXx2wrIxgeUzpnDqpGK MbCPRktXYaq7TpBYeiA xZcKKN3wm3dxUwyqSWm hP2sgJZkpOT7d3H3WUp mXjlgyYZylMLbl3p6lK WpA3O9fMXgMSToX2Ybc Y0wl3IglVu3DYZmAHB1 OUCnJY2jQLAyhlrdIAV cbGkwXGxpbjAgVGhpcy BjYXNlIHdhcyBzdHVka WVkIGFuZCBkaXNjdXNz ZWQgYXQgdGhlIGRlcm1 sbN4oSVKvo6zhO7cnRk ItmCr4wTQyo44tPIMqe mNlLiAgXHBhclxsaTcy WAtvvO70VsDlrOGemO= = Comment (test code = 9835) v5kdiGLhMZVbxAE7RGW iLXDdd3goz9MwbUDcqT PkQFidgFOjxpWbhf19e RW1aR18JQ0cTTAfVtH5 FPQbkrU3Qke8VYKlZXQ ozFGfK094x5vsz8osdj LyjFN8hTysVQVvqgeaR iR5WBirQGJzqorsGDe0 UQprOPJzzYM3FWZfcWK yG0SnOIZmOO9bjuv5ZR H6IDdkDJTkJpR6VNJlr YJjHZSohIvxVIlem428 NIW6HvTrTLLfkzAbhCy jjA0sTnUlFQFRdvLldM 86vm0xhEP8s6UcGF3zK 9LyXYC5sJG6XZwfijHi ENLun7VyZIMauTPwbtc hyPXcFJ6wgLHvr99jHQ KqH2g9ZDdbVVfqwEBrS NnqQ6vxiGonhVQwt3Ay iUOjyxIrTCw2zeA3iW0 qFXdotFUqYL4pD1r2UI O0UI7jOM1tcNVdn0P7r PwvDOglt1xreuNvmdJf ZGVudGlmaWVkLiBTcGV fvQUkSZP7YZfekoZdK7 IEZYvbA05OQTR9DSFqX GUzzmJrvc5tLAfdB5Ip bO2bi3EmoGo3BEQqVPV 7FOGfBUBdczIzh7RfRJ T8qUTjoF0xbAogQZU9o fS2yN3dE60lwqY1qCgx Av2wpPlupQgfzjSbbfE 2udVuVgLfyT5qGB0yMO Pxklttt5ylgPZ2qYKyQ zXsU7H3ySJyKFCjUBa8 vQSuk7TzfjBzGDzvMSQ 3xiKwjkClt0LhxsZegu NrgIXcmBXkZWMmrm4yl F1bSXSrpkpxSBJ0 Gross Description (test e2ukrOJwTHPtyMGYDDc code = 2166921881) wMVxhbnNpXHNwbHRwZ3 BboeznFTxmJG0xWB1cy QasyGIluGNjJM2HDYAg ZmYxXHBhcGVydzEyMjQ dXZDwwNPhiXI4HNBdUF 1hcmdsMTgwMFxtYXJnc vA7FEEsaGNpH1TvJBPb PX8trhwlIRA5PJnijM8 zsqIYOaqyZm8msVBktQ tcZjFcZmNoYXJzZXQwX KBpuTjtCULsLLh7nU8J WotaI78ov3T6Arg5HIV gPNWkU4SfNM9tDHGhyA MwX86GNdjkBRN6CLNNO cinPYSiFE0Tf2vbEOEq mAYpNEA9YNqsxLFrCPX mMXHtBBu3YLMfJNlwpR BuSG4waKoeFgjkrAwbl 2VjdCBcXGlkIDUxMDAy MMbxXFKwSM6HRiRsCXU oGNC9ABYvGNt7CWy6CD 1WEuJoNDXvOIW0XzA2R dQzVSf6BFvjBS8KNPIf QHLzBSG3RJgcNFYyXOJ fTRp6USLeYJzyMSVhvV FsIFxcZnMgMTAgXFxmY qZvZWGwQFhopoJ1FUZv YWluXGJcZnMyMCBBOlx mWHYvHAftjFuxpW1jFQ RdC09vb1EVq9YgKP8DT Uo5agXyneyalY2tMXSv qnUoXHpexWYdH2pyFej pDwKwQpNwOCSZi4gsLH PxkAcrlBL7yJpzjBE2S GIwXGNmMCAgQSAwLjcg zWQqYiDbgGByBkOxB15 jVUPxrhFko8qwHTSdPQ ZlLiAgVGhlIHNwZWNpb UGoTJzrJPnlc8ZmHZQm fLDxY9UcNTaeQU32hWC zrGten4AcxUi4bLMzXC uxUBCxTiDuGVYvr9XlG 0S5EOErTPtze2daMRJa LCtez0CiMHhPRYSVZI4 TPP4isLN7UXxNC1RXU7 iWuSRhJRI1aRQ7ZHOUF emeeRX6kEE0dD95CDIk ETIzfBDbIMwlB525CEX 7AIAsHPryn5nyLVWjUB gtn6XwOPtYHQHIUX6OY K2vkCW5YFlPZ7EHGGpj ARPtHhjdnMBERAQ3NXh fuVneaFk0s2ariIRyl6 c9WOntRPV6zPplmZAni ktyfUKbtJwlzbAhZV0X RTAatNOSCJW6LJ8zTEz 5TXdrQXHlJ9AxP5Tbzu XhtFSdLBYhkmAyd1ihF TQ1QECzmQGsxPKnVnQp VbelRIX5SZAdJDljDH9 VWXHbICB6MGsmvL25uL BzCO5DWGIpPPycHCHzY LSyoiZ3HLEzrZQcCVF2 MG4kmQhdfVQmfodxmbT 1FX9GqZ== Ice Cream Dipper(s) (test code = v0sckIBnQHPxaOH9CTP 9885) jGXYky6jyt1CisMKpfE AtZMrxhJZyczXewx32d JT7pB04SQ7yKWAmNoA2 GOBgzsU3Wwc8JUSvACT inAWrM111e9tlc4nvzv EnpES5aMujQLXvxurwP cI3YAycUTImxpxvMQq6 JZdvPJQozCA4KMGekQO mR7KlABVeRQ9dvrf0IG K0MMsaSCGyYwU3PRVdr SUpBADuaOwxZZpjw383 RNJ9MvMjNXGavzDjnEj afE3sXmTvBBTTF1FtJE nUNvpfZ6ZIBHVGWyhqV XJ9 Disclaimer (test code = k3eurVAmPBVmaTQaAlP 9844) iPSOlYHMhk2unSLLxmQ FuZzEwMzNcZnRuYmpcd YRfHGLlThKfn7sbf131 mUKtd8ofUUPgKgV7dOI jLTNikIIrX952WPLlLR cub7hva3GaWUGyqTLlu 1A9OYXGkashlQa1cZzh G07bk0B1NxnbG6avLGK jARRkR1XqHK5cQRAoEo f0HQG3VBL7CPSsTPDhA 3LyKT0mKHIpqBOrJKv2 x9wgmRysWOLtTEG5s9y cTUvhpvHuPR7ajc5nlF w1b9dfvlFiMXImUMRoe RGXWLCsU3MmeYwwWo2z hHj1cMhiKucaXQF5Ceg 6KL7isp30hwl7mChiTT InotfjQnX6XGwwNIOli nvkBLi6VCkhUKQueRB6 HGTazHFdF2StWBObKM4 omki9GSK9MTkkIVUnBz J4JEGxfBIlPMGhqJzjY Tprp308PGZ8SgHjYS0z S7Kvm3O9jZ4jaUQqRDQ owBNeVfStJCZojs2jxZ RjCXayy3OxZTZ7llY4i TLgwKJjGXFrLJ49Ydad s1AvEklaLLT0CGDpkzX ku2Rkz1qgDvEeesJkH3 yeD6UmEPBlVFLaNCTdF xIhcqFxr2Rfg3QjmHFn jHz0p1dzKWQuYKCtgNv dh0pfBVH6NUNqI3J0aW Ixm8doKLcmPWAriEP0n cQ5YHBswSSbD6QhwR0h ZVYjUJ6asdy3f1xgEBL 0GHrkLMAmEvE1jnT2EP BcaGVhZGVyeTcyMFxmb 488JKV5IsNzYGHlq2Lh W8FhgUbmS79ilYwiN64 aTQIrfAxkdB6thJmmxE 5cZjBcZnMyNFxxbFxwb LBdspqmLSobknP3ANph eookYGYhEWcpL5kbKcM aEJMyoWpuAGqme6TtNJ CvPAHxFfduddW1VVAYc 79nOAAnn3EtZZEddJ0i iFAvWQnjbtJdgYM9ZUk hdmUgYmVlbiBkZXZlbG 5aGGYhLF4jQZDnhwOfj q5gadJhXYMvIKLbM4Lj cmlzdGljcyBkZXRlcm1 mcbSqKZW9SAUYHJ0UWR BhGEJox30rXUQviRkpd E9zsEJpduFrMBJyj8Su nI5kcIPIAVKeT5mcWN2 jUEasj5VyoYHplXCuwE O2UQDax0AvQwUqahJja TYopRWgS2VttAqxD5bg EZXrUFZeupFfoOUcw2Z jDEKmbWI5xOFnPL9KCc IUx46cPMApSWTRiuBqP OZitDvdgOS6bpH3tL8n LiBJZiBhcHBsaWNhYmx aLDOuj053bg3pinU1OF SeNNVhegjsy2LlUNAmF NSvjN79ZWJyGDLlqc2y fldovLJtzyCwB8Xgzyu 9vW5mDRTzKXtdCKJePP ZzMjJcbGFuZzEwMzNca GljaFxmMVxkYmNoXGYx YAuaK5orSkLiYsBwEuw wYXJ9 [facility] [facility] [id number] 16:43:00 Test Item Value Reference Range Interpretation Comments POC glucose (test code 128 mg/dL 65-99 H Opera tor Name: Sommer = [id number]) WarrenDevice ID : [id number] able: [facility] Notified technical services librarian Interpretation Abnormal (test code = 08774-0) [facility] [id number] 23:59:05 Test Item Value Reference Range Interpretation Comments Case number (test code = [id number]) Cytology See link below for (non-gynecological) PDF Lab Report report (test code = 1178) Result status (test code This is Final Report = [id number]) for [id number] [facility] [id number] 23:59:05 Test Item Value Reference Range Interpretation Comments Case number (test code = [id number]) Cytology See link below for (non-gynecological) PDF Lab Report report (test code = 1178) Result status (test code This is Final Report = [id number]) for [id number] [facility] [id number] 23:59:05 Test Item Value Reference Range Interpretation Comments Case number (test code = [id number]) Cytology See link below for (non-gynecological) PDF Lab Report report (test code = 1178) Result status (test code This is Final Report = [id number]) for [id number] [facility] [id number] 20:28:42 Test Item Value Reference Range Interpretation Comments Case number (test code = [id number]) Surgical pathology See link below for report (test code = PDF Lab Report 2255) Result status (test code This is Final Report = [id number]) for [id number] [facility] [id number] 20:28:42 Test Item Value Reference Range Interpretation Comments Case number (test code = [id number]) Surgical pathology See link below for report (test code = PDF Lab Report 2255) Result status (test code This is Final Report = [id number]) for [id number] [facility] [id number] 20:28:42 Test Item Value Reference Range Interpretation Comments Case number (test code = [id number]) Surgical pathology See link below for report (test code = PDF Lab Report 2255) Result status (test code This is Final Report = [id number]) for [id number] [facility] 12 [id number] 20:54:28 Test Item Value Reference Range Interpretation Comments Ventricular rate (test code = 253) Atrial rate (test code = 255) ID interval (test code = 266) QRSD interval [...] 10-28-2021-Electronic lly Signed By Graciela BLANK, Chad ([id number]) on 11/13/2021 2:54:26 PM [facility] [id number] 10:12:45 Test Item Value Reference Range Interpretation Comments Urine culture (test SEE COMMENT Bacteriu sarah screen code = 7307253) negative. [facility] RNA [Presence] in Respiratory specimen by FREDDIE with probe [id number] 01:00:09 Test Item Value Reference Range Interpretation Comments SARS-CoV-2 (COVID-19) RNA Not detected Not-Detected [Presence] in Respiratory specimen by FREDDIE with probe detection (test code = 91290-6) 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 employed in a healthcare setting (test code = 35199-9) Whether the patient has symptoms related to condition of interest (test code = 23817-4) Patient was hospitalized because of this condition (test code = 63841-1) Whether the patient was admitted to intensive care unit (ICU) for condition of interest (test code = 91834-7) Whether patient resides in a congregate care setting (test code = 78376-7) [facility] stress [id number] 11:08:51 Test Item Value Reference Range Interpretation Comments Resting HR (test code = 5218868763) Resting BP (test code = 2567380696) Peak MET Achieved (test code = 1063804496) Protocol Name (test Lexiscan code = 3328566245) Time in Exercise 00:01:00 Phase (test code = 5480307456) Max Systolic BP (test code = 0461709336) Max Diastolic BP (test code = 1108639572) Max Heart Rate (test code = 1480722919) Max Predicted Heart Rate (test code = 5958156796) Target HR Formula (220 - Age)*100% (test code = 6490693766) Test Indication (test S/P Heart Transplant code = 7196945514) Arrhy During Ex (test code = 6389731644) ECG Interp Before EX (test code = 1099364527) ECG Interp During Ex (test code = 4800789691) Ex Summary Comment (test code = 7265790477) Overall HR Response to Exercise (test code = 9051785077) Overall BP Response To Exercise (test code = 7211563678) Reason for Protocol Complete Termination (test code = 1225086180) Stress Test Waveform interpreted in Impression (test code report associated with = 8315863963) image study. No interpretation is provided as part of this Stress ECG report.-Electronically Signed By Lola BLANK, Justen Matias ([id number]), production editor Allison Prasad ([id number]) on 10/25/2021 5:08:48 AM [facility]CoV-[facility] (COVID-19) RNA [Presence] in Respiratory specimen by FREDDIE with probe [id number] 21:45:46 Test Item Value Reference Range Interpretation Comments SARS-CoV-2 (COVID-19) RNA Not detected Not-Detected [Presence] in Respiratory specimen by FREDDIE with probe detection (test code = 31086-2) 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 employed in a healthcare setting (test code = 75094-8) Whether the patient has symptoms related to condition of interest (test code = 49426-7) Patient was hospitalized because of this condition (test code = 99069-0) Whether the patient was admitted to intensive care unit (ICU) for condition of interest (test code = 51093-2) Whether patient resides in a congregate care setting (test code = 57924-5) JAJA COLLINS IN OR/30 MINUTE [id number] 14:21:00 Reason for exam:->bilateral C3,C4,C5 medical branch raiofrequency ablation FINAL REPORT Fluoroscopy 3 views intraoperative 10/21/2018 1:28 PM CLINICAL HISTORY: Instrument localization COMPARISON: None available IMPRESSION: Please correlate imaging report findings with the procedure note prepared by Dr. Mcmullen, as an intra-procedure imaging consultation was not requested. Reported fluoroscopy time: 44.5 seconds. Signed: Munir Grady Verified Date/Time: 10/21/2018 14:21:41 Reading Location: [facility] Radiology Reading Room POCT-GLUCOSE [id number] 14:02:00 Test Item Value Reference Range Interpretation Comments POC-GLUCOSE METER 160 mg/dL 70-110 H TESTED AT [place] [address] ([place]) (test code = [facility] 1538) [address] POCT-GLUCOSE [id number] 12:28:00 Test Item Value Reference Range Interpretation Comments POC-GLUCOSE METER 158 mg/dL 70-110 H TESTED AT [place] [address] ([place]) (test code = [facility] 1538) [address] [place], ARCHITECTURE CONSULTANT IN OR/30 MINUTE [id number] 13:42:00Reason for exam:- >bilateral C3-C5 Medial Branch BlockFINAL REPORT Fluoroscopy 4 views intraoperative 09/16/2018 1:37 PM CLINICAL HISTORY: Instrument localization COMPARISON: None available IMPRESSION: Please correlate imaging report findings with the procedure note prepared by Dr. Mcmullen, as an intra-procedure imaging consultation wasnot requested. Reported fluoroscopy time: 35.8 seconds. Signed: Munir Grady Verified Date/Time: 09/16/2018 13:42:50 Reading Location: [facility] Radiology Reading Room POCT- GLUCOSE [id number] 12:18:00 Test Item Value Reference Range Interpretation Comments POC-GLUCOSE METER 154 mg/dL 70-110 H TESTED AT [place] [address] ([place]) (test code = [facility] 1538) [address] [id number] 10:58:00 Test Item Value Reference Range Interpretation Comments Tacrolimus Lvl (test code = Tacrolimus 3.3 5.0-15.0 Lvl) [place] [id number] 10:58:00 Test Item Value Reference Range Interpretation Comments Tacrolimus Lvl (test code = Tacrolimus 3.3 5.0-15.0 Lvl) [place] [id number] 10:58:00 Test Item Value Reference Range Interpretation Comments Tacrolimus Lvl (test code = Tacrolimus 3.3 5.0-15.0 Lvl) [id number] 10:58:00 Test Item Value Reference Range Interpretation Comments Tacrolimus Lvl (test code = Tacrolimus 3.3 5.0-15.0 Lvl) [place] [id number] 10:58:00 Test Item Value Reference Range Interpretation Comments Tacrolimus Lvl (test code = Tacrolimus 3.3 5.0-15.0 Lvl) [place] [id number] 10:58:00 Test Item Value Reference Range Interpretation Comments Tacrolimus Lvl (test code = Tacrolimus 3.3 5.0-15.0 Lvl) [place] [id number] 10:58:00 Test Item Value Reference Range Interpretation Comments Tacrolimus Lvl (test code = Tacrolimus 3.3 5.0-15.0 Lvl) [place] [id number] 10:58:00 Test Item Value Reference Range Interpretation Comments Tacrolimus Lvl (test code = Tacrolimus 3.3 5.0-15.0 Lvl) [place] [id number] 10:58:00 Test Item Value Reference Range Interpretation Comments Tacrolimus Lvl (test code = Tacrolimus 3.3 5.0-15.0 Lvl) [place] [id number] 10:58:00 Test Item Value Reference Range Interpretation Comments Tacrolimus Lvl (test code = Tacrolimus 3.3 5.0-15.0 Lvl) [place] [id number] 10:58:00 Test Item Value Reference Range Interpretation Comments Tacrolimus Lvl (test code = Tacrolimus 3.3 5.0-15.0 Lvl) [facility]2018-07-22 05:30:00 Test Item Value Reference Range Interpretation Comments Creatinine Lvl (test code = Creatinine 1.61 0.50-1.40 Lvl) [facility] [id number] 05:30:00 Test Item Value Reference Range Interpretation Comments eGFR (test code = eGFR) 42 [facility]2018-07-22 05:30:00 Test Item Value Reference Range Interpretation Comments BUN (test code = BUN) 53 7-22 [facility]2018-07-22 05:30:00 Test Item Value Reference Range Interpretation Comments Glucose Lvl (test code = Glucose Lvl) 146 70-99 [facility]2018-07-22 05:30:00 Test Item Value Reference Range Interpretation Comments Sodium Lvl (test code = Sodium Lvl) 134 135-145 [facility]2018-07-22 05:30:00 Test Item Value Reference Range Interpretation Comments Potassium Lvl (test code = Potassium 4.9 3.5-5.1 Lvl) [facility]2018-07-22 05:30:00 Test Item Value Reference Range Interpretation Comments Chloride Lvl (test code = Chloride Lvl) 99 95-109 [facility]2018-07-22 05:30:00 Test Item Value Reference Range Interpretation Comments CO2 (test code = CO2) 25 24-32 [facility]2018-07-22 05:30:00 Test Item Value Reference Range Interpretation Comments Calcium Lvl (test code = Calcium Lvl) 8.6 8.5-10.5 [facility]2018-07-22 05:30:00 Test Item Value Reference Range Interpretation Comments AGAP (test code = AGAP) 14.9 10.0-20.0 [facility]2018-07-22 05:30:00 Test Item Value Reference Range Interpretation Comments Creatinine Lvl (test code = Creatinine 1.61 0.50-1.40 Lvl) [facility]2018-07-22 05:30:00 Test Item Value Reference Range Interpretation Comments eGFR (test code = eGFR) 42 [facility]2018-07-22 05:30:00 Test Item Value Reference Range Interpretation Comments Creatinine Lvl (test code = Creatinine 1.61 0.50-1.40 Lvl) [facility]2018-07-22 05:30:00 Test Item Value Reference Range Interpretation Comments eGFR (test code = eGFR) 42 [facility]2018-07-22 05:30:00 Test Item Value Reference Range Interpretation Comments BUN (test code = BUN) 53 7-22 [facility]2018-07-22 05:30:00 Test Item Value Reference Range Interpretation Comments Glucose Lvl (test code = Glucose Lvl) 146 70-99 [facility]2018-07-22 05:30:00 Test Item Value Reference Range Interpretation Comments Sodium Lvl (test code = Sodium Lvl) 134 135-145 [facility]2018-07-22 05:30:00 Test Item Value Reference Range Interpretation Comments Potassium Lvl (test code = Potassium 4.9 3.5-5.1 Lvl) [facility]2018-07-22 05:30:00 Test Item Value Reference Range Interpretation Comments BUN (test code = BUN) 53 - [facility]2018-07-22 05:30:00 Test Item Value Reference Range Interpretation Comments Chloride Lvl (test code = Chloride Lvl) 99 95-109 [facility]2018-07-22 05:30:00 Test Item Value Reference Range Interpretation Comments CO2 (test code = CO2) 25 24-32 [facility]2018-07-22 05:30:00 Test Item Value Reference Range Interpretation Comments Calcium Lvl (test code = Calcium Lvl) 8.6 8.5-10.5 [facility]2018-07-22 05:30:00 Test Item Value Reference Range Interpretation Comments AGAP (test code = AGAP) 14.9 10.0-20.0 [facility]2018-07-22 05:30:00 Test Item Value Reference Range Interpretation Comments Glucose Lvl (test code = Glucose Lvl) 146 70-99 [facility]2018-07-22 05:30:00 Test Item Value Reference Range Interpretation Comments Sodium Lvl (test code = Sodium Lvl) 134 135-145 [facility]2018-07-22 05:30:00 Test Item Value Reference Range Interpretation Comments Potassium Lvl (test code = Potassium 4.9 3.5-5.1 Lvl) [facility]2018-07-22 05:30:00 Test Item Value Reference Range Interpretation Comments Chloride Lvl (test code = Chloride Lvl) 99 95-109 [facility]2018-07-22 05:30:00 Test Item Value Reference Range Interpretation Comments CO2 (test code = CO2) 25 24-32 [facility]2018-07-22 05:30:00 Test Item Value Reference Range Interpretation Comments Calcium Lvl (test code = Calcium Lvl) 8.6 8.5-10.5 [facility]2018-07-22 05:30:00 Test Item Value Reference Range Interpretation Comments AGAP (test code = AGAP) 14.9 10.0-20.0 [facility]2018-07-22 05:30:00 Test Item Value Reference Range Interpretation Comments Creatinine Lvl (test code = Creatinine 1.61 0.50-1.40 Lvl) [facility]2018-07-22 05:30:00 Test Item Value Reference Range Interpretation Comments eGFR (test code = eGFR) 42 [facility]2018-07-22 05:30:00 Test Item Value Reference Range Interpretation Comments BUN (test code = BUN) 53 7-22 [facility]2018-07-22 05:30:00 Test Item Value Reference Range Interpretation Comments Glucose Lvl (test code = Glucose Lvl) 146 70-99 [facility]2018-07-22 05:30:00 Test Item Value Reference Range Interpretation Comments Sodium Lvl (test code = Sodium Lvl) 134 135-145 [facility]2018-07-22 05:30:00 Test Item Value Reference Range Interpretation Comments Potassium Lvl (test code = Potassium 4.9 3.5-5.1 Lvl) [facility]2018-07-22 05:30:00 Test Item Value Reference Range Interpretation Comments Chloride Lvl (test code = Chloride Lvl) 99 95-109 [facility]2018-07-22 05:30:00 Test Item Value Reference Range Interpretation Comments CO2 (test code = CO2) 25 24-32 [facility]2018-07-22 05:30:00 Test Item Value Reference Range Interpretation Comments Calcium Lvl (test code = Calcium Lvl) 8.6 8.5-10.5 [facility]2018-07-22 05:30:00 Test Item Value Reference Range Interpretation Comments AGAP (test code = AGAP) 14.9 10.0-20.0 [facility]2018-07-22 05:30:00 Test Item Value Reference Range Interpretation Comments Creatinine Lvl (test code = Creatinine 1.61 0.50-1.40 Lvl) [facility]2018-07-22 05:30:00 Test Item Value Reference Range Interpretation Comments eGFR (test code = eGFR) 42 [facility]2018-07-22 05:30:00 Test Item Value Reference Range Interpretation Comments BUN (test code = BUN) 53 7-22 [facility]2018-07-22 05:30:00 Test Item Value Reference Range Interpretation Comments Glucose Lvl (test code = Glucose Lvl) 146 70-99 [facility]2018-07-22 05:30:00 Test Item Value Reference Range Interpretation Comments Sodium Lvl (test code = Sodium Lvl) 134 135-145 [facility]2018-07-22 05:30:00 Test Item Value Reference Range Interpretation Comments Potassium Lvl (test code = Potassium 4.9 3.5-5.1 Lvl) [facility]2018-07-22 05:30:00 Test Item Value Reference Range Interpretation Comments Chloride Lvl (test code = Chloride Lvl) 99 95-109 [facility]2018-07-22 05:30:00 Test Item Value Reference Range Interpretation Comments CO2 (test code = CO2) 25 24-32 [facility]2018-07-22 05:30:00 Test Item Value Reference Range Interpretation Comments Calcium Lvl (test code = Calcium Lvl) 8.6 8.5-10.5 [facility]2018-07-22 05:30:00 Test Item Value Reference Range Interpretation Comments AGAP (test code = AGAP) 14.9 10.0-20.0 [facility]2018-07-22 05:30:00 Test Item Value Reference Range Interpretation Comments Creatinine Lvl (test code = Creatinine 1.61 0.50-1.40 Lvl) [facility]2018-07-22 05:30:00 Test Item Value Reference Range Interpretation Comments eGFR (test code = eGFR) 42 [facility]2018-07-22 05:30:00 Test Item Value Reference Range Interpretation Comments BUN (test code = BUN) 53 7-22 [facility]2018-07-22 05:30:00 Test Item Value Reference Range Interpretation Comments Glucose Lvl (test code = Glucose Lvl) 146 70-99 [facility]2018-07-22 05:30:00 Test Item Value Reference Range Interpretation Comments Sodium Lvl (test code = Sodium Lvl) 134 135-145 [facility]2018-07-22 05:30:00 Test Item Value Reference Range Interpretation Comments Potassium Lvl (test code = Potassium 4.9 3.5-5.1 Lvl) [facility]2018-07-22 05:30:00 Test Item Value Reference Range Interpretation Comments Chloride Lvl (test code = Chloride Lvl) 99 95-109 [facility]2018-07-22 05:30:00 Test Item Value Reference Range Interpretation Comments CO2 (test code = CO2) 25 24-32 [facility]2018-07-22 05:30:00 Test Item Value Reference Range Interpretation Comments Calcium Lvl (test code = Calcium Lvl) 8.6 8.5-10.5 [facility]2018-07-22 05:30:00 Test Item Value Reference Range Interpretation Comments AGAP (test code = AGAP) 14.9 10.0-20.0 [facility]2018-07-22 05:30:00 Test Item Value Reference Range Interpretation Comments Creatinine Lvl (test code = Creatinine 1.61 0.50-1.40 Lvl) [facility]2018-07-22 05:30:00 Test Item Value Reference Range Interpretation Comments eGFR (test code = eGFR) 42 [facility]2018-07-22 05:30:00 Test Item Value Reference Range Interpretation Comments BUN (test code = BUN) 53 7-22 [facility]2018-07-22 05:30:00 Test Item Value Reference Range Interpretation Comments Glucose Lvl (test code = Glucose Lvl) 146 70-99 [facility]2018-07-22 05:30:00 Test Item Value Reference Range Interpretation Comments Sodium Lvl (test code = Sodium Lvl) 134 135-145 [facility]2018-07-22 05:30:00 Test Item Value Reference Range Interpretation Comments Potassium Lvl (test code = Potassium 4.9 3.5-5.1 Lvl) [facility]2018-07-22 05:30:00 Test Item Value Reference Range Interpretation Comments Chloride Lvl (test code = Chloride Lvl) 99 95-109 [facility]2018-07-22 05:30:00 Test Item Value Reference Range Interpretation Comments CO2 (test code = CO2) -32 [facility]2018-07-22 05:30:00 Test Item Value Reference Range Interpretation Comments Calcium Lvl (test code = Calcium Lvl) 8.6 8.5-10.5 [facility]2018-07-22 05:30:00 Test Item Value Reference Range Interpretation Comments AGAP (test code = AGAP) 14.9 10.0-20.0 [facility]2018-07-22 05:30:00 Test Item Value Reference Range Interpretation Comments Creatinine Lvl (test code = Creatinine 1.61 0.50-1.40 Lvl) [facility]2018-07-22 05:30:00 Test Item Value Reference Range Interpretation Comments eGFR (test code = eGFR) 42 [facility]2018-07-22 05:30:00 Test Item Value Reference Range Interpretation Comments BUN (test code = BUN) 53 7-22 [facility]2018-07-22 05:30:00 Test Item Value Reference Range Interpretation Comments Glucose Lvl (test code = Glucose Lvl) 146 70-99 [facility]2018-07-22 05:30:00 Test Item Value Reference Range Interpretation Comments Sodium Lvl (test code = Sodium Lvl) 134 135-145 [facility]2018-07-22 05:30:00 Test Item Value Reference Range Interpretation Comments Potassium Lvl (test code = Potassium 4.9 3.5-5.1 Lvl) [facility]2018-07-22 05:30:00 Test Item Value Reference Range Interpretation Comments Chloride Lvl (test code = Chloride Lvl) 99 95-109 [facility]2018-07-22 05:30:00 Test Item Value Reference Range Interpretation Comments CO2 (test code = CO2) 25 -32 [facility]2018-07-22 05:30:00 Test Item Value Reference Range Interpretation Comments Calcium Lvl (test code = Calcium Lvl) 8.6 8.5-10.5 [facility]2018-07-22 05:30:00 Test Item Value Reference Range Interpretation Comments AGAP (test code = AGAP) 14.9 10.0-20.0 [facility]2018-07-22 05:30:00 Test Item Value Reference Range Interpretation Comments Creatinine Lvl (test code = Creatinine 1.61 0.50-1.40 Lvl) [facility]2018-07-22 05:30:00 Test Item Value Reference Range Interpretation Comments eGFR (test code = eGFR) 42 [facility]2018-07-22 05:30:00 Test Item Value Reference Range Interpretation Comments BUN (test code = BUN) 53 7-22 [facility]2018-07-22 05:30:00 Test Item Value Reference Range Interpretation Comments Glucose Lvl (test code = Glucose Lvl) 146 70-99 [facility]2018-07-22 05:30:00 Test Item Value Reference Range Interpretation Comments Sodium Lvl (test code = Sodium Lvl) 134 135-145 [facility]2018-07-22 05:30:00 Test Item Value Reference Range Interpretation Comments Potassium Lvl (test code = Potassium 4.9 3.5-5.1 Lvl) [facility]2018-07-22 05:30:00 Test Item Value Reference Range Interpretation Comments Chloride Lvl (test code = Chloride Lvl) 99 95-109 [facility]2018-07-22 05:30:00 Test Item Value Reference Range Interpretation Comments CO2 (test code = CO2) 25 24-32 [facility]2018-07-22 05:30:00 Test Item Value Reference Range Interpretation Comments Calcium Lvl (test code = Calcium Lvl) 8.6 8.5-10.5 [facility]2018-07-22 05:30:00 Test Item Value Reference Range Interpretation Comments AGAP (test code = AGAP) 14.9 10.0-20.0 [facility]2018-07-22 05:30:00 Test Item Value Reference Range Interpretation Comments Creatinine Lvl (test code = Creatinine 1.61 0.50-1.40 Lvl) [facility]2018-07-22 05:30:00 Test Item Value Reference Range Interpretation Comments eGFR (test code = eGFR) 42 [facility]2018-07-22 05:30:00 Test Item Value Reference Range Interpretation Comments BUN (test code = BUN) 53 7-22 [facility]2018-07-22 05:30:00 Test Item Value Reference Range Interpretation Comments Glucose Lvl (test code = Glucose Lvl) 146 70-99 [facility]2018-07-22 05:30:00 Test Item Value Reference Range Interpretation Comments Sodium Lvl (test code = Sodium Lvl) 134 135-145 [facility]2018-07-22 05:30:00 Test Item Value Reference Range Interpretation Comments Potassium Lvl (test code = Potassium 4.9 3.5-5.1 Lvl) [facility]2018-07-22 05:30:00 Test Item Value Reference Range Interpretation Comments Chloride Lvl (test code = Chloride Lvl) 99 95-109 [facility]2018-07-22 05:30:00 Test Item Value Reference Range Interpretation Comments CO2 (test code = CO2) 25 24-32 [facility]2018-07-22 05:30:00 Test Item Value Reference Range Interpretation Comments Calcium Lvl (test code = Calcium Lvl) 8.6 8.5-10.5 [facility]2018-07-22 05:30:00 Test Item Value Reference Range Interpretation Comments AGAP (test code = AGAP) 14.9 10.0-20.0 [facility]2018-07-22 05:30:00 Test Item Value Reference Range Interpretation Comments Creatinine Lvl (test code = Creatinine 1.61 0.50-1.40 Lvl) [facility]2018-07-22 05:30:00 Test Item Value Reference Range Interpretation Comments eGFR (test code = eGFR) 42 [facility]2018-07-22 05:30:00 Test Item Value Reference Range Interpretation Comments BUN (test code = BUN) 53 7-22 [facility]2018-07-22 05:30:00 Test Item Value Reference Range Interpretation Comments Glucose Lvl (test code = Glucose Lvl) 146 70-99 [facility]2018-07-22 05:30:00 Test Item Value Reference Range Interpretation Comments Sodium Lvl (test code = Sodium Lvl) 134 135-145 [facility]2018-07-22 05:30:00 Test Item Value Reference Range Interpretation Comments Potassium Lvl (test code = Potassium 4.9 3.5-5.1 Lvl) [facility]2018-07-22 05:30:00 Test Item Value Reference Range Interpretation Comments Chloride Lvl (test code = Chloride Lvl) 99 95-109 [facility]2018-07-22 05:30:00 Test Item Value Reference Range Interpretation Comments CO2 (test code = CO2) 25 24-32 [facility]2018-07-22 05:30:00 Test Item Value Reference Range Interpretation Comments Calcium Lvl (test code = Calcium Lvl) 8.6 8.5-10.5 [facility]2018-07-22 05:30:00 Test Item Value Reference Range Interpretation Comments AGAP (test code = AGAP) 14.9 10.0-20.0 [place] [id number] 13:46:00 Test Item Value Reference Range Interpretation Comments Tacrolimus Lvl (test code = Tacrolimus no gt 5.0-15.0 Lvl) [place] [id number] 13:46:00 Test Item Value Reference Range Interpretation Comments Tacrolimus Lvl (test code = Tacrolimus no gt 5.0-15.0 Lvl) [place] [id number] 13:46:00 Test Item Value Reference Range Interpretation Comments Tacrolimus Lvl (test code = Tacrolimus no gt 5.0-15.0 Lvl) [place] [id number] 13:46:00 Test Item Value Reference Range Interpretation Comments Tacrolimus Lvl (test code = Tacrolimus no gt 5.0-15.0 Lvl) [place] [id number] 13:46:00 Test Item Value Reference Range Interpretation Comments Tacrolimus Lvl (test code = Tacrolimus no gt 5.0-15.0 Lvl) [place] [id number] 13:46:00 Test Item Value Reference Range Interpretation Comments Tacrolimus Lvl (test code = Tacrolimus no gt 5.0-15.0 Lvl) [place] [id number] 13:46:00 Test Item Value Reference Range Interpretation Comments Tacrolimus Lvl (test code = Tacrolimus no gt 5.0-15.0 Lvl) [place] [id number] 13:46:00 Test Item Value Reference Range Interpretation Comments Tacrolimus Lvl (test code = Tacrolimus no gt 5.0-15.0 Lvl) [place] [id number] 13:46:00 Test Item Value Reference Range Interpretation Comments Tacrolimus Lvl (test code = Tacrolimus no gt 5.0-15.0 Lvl) [place] [id number] 13:46:00 Test Item Value Reference Range Interpretation Comments Tacrolimus Lvl (test code = Tacrolimus no gt 5.0-15.0 Lvl) [place] [id number] 13:46:00 Test Item Value Reference Range Interpretation Comments Tacrolimus Lvl (test code = Tacrolimus no gt 5.0-15.0 Lvl) [facility]2018-07-21 05:38:00 Test Item Value Reference Range Interpretation Comments Glucose Lvl (test code = Glucose Lvl) 125 70-99 [facility]2018-07-21 05:38:00 Test Item Value Reference Range Interpretation Comments Creatinine Lvl (test code = Creatinine 1.65 0.50-1.40 Lvl) [facility]2018-07-21 05:38:00 Test Item Value Reference Range Interpretation Comments BUN (test code = BUN) 51 7-22 [facility]2018-07-21 05:38:00 Test Item Value Reference Range Interpretation Comments Chloride Lvl (test code = Chloride Lvl) 100 95-109 [facility]2018-07-21 05:38:00 Test Item Value Reference Range Interpretation Comments Sodium Lvl (test code = Sodium Lvl) 136 135-145 [facility]2018-07-21 05:38:00 Test Item Value Reference Range Interpretation Comments CO2 (test code = CO2) 27 24-32 [facility]2018-07-21 05:38:00 Test Item Value Reference Range Interpretation Comments Potassium Lvl (test code = Potassium 5.2 3.5-5.1 Lvl) [facility]2018-07-21 05:38:00 Test Item Value Reference Range Interpretation Comments eGFR (test code = eGFR) 40 [facility]2018-07-21 05:38:00 Test Item Value Reference Range Interpretation Comments AGAP (test code = AGAP) 14.2 10.0-20.0 [facility]2018-07-21 05:38:00 Test Item Value Reference Range Interpretation Comments Calcium Lvl (test code = Calcium Lvl) 8.4 8.5-10.5 [facility]2018-07-21 05:38:00 Test Item Value Reference Range Interpretation Comments Glucose Lvl (test code = Glucose Lvl) 125 70-99 [facility]2018-07-21 05:38:00 Test Item Value Reference Range Interpretation Comments Creatinine Lvl (test code = Creatinine 1.65 0.50-1.40 Lvl) [facility]2018-07-21 05:38:00 Test Item Value Reference Range Interpretation Comments BUN (test code = BUN) 51 7-22 [facility]2018-07-21 05:38:00 Test Item Value Reference Range Interpretation Comments Chloride Lvl (test code = Chloride Lvl) 100 95-109 [facility]2018-07-21 05:38:00 Test Item Value Reference Range Interpretation Comments Sodium Lvl (test code = Sodium Lvl) 136 135-145 [facility]2018-07-21 05:38:00 Test Item Value Reference Range Interpretation Comments CO2 (test code = CO2) 27 24-32 [facility]2018-07-21 05:38:00 Test Item Value Reference Range Interpretation Comments Potassium Lvl (test code = Potassium 5.2 3.5-5.1 Lvl) [facility]2018-07-21 05:38:00 Test Item Value Reference Range Interpretation Comments eGFR (test code = eGFR) 40 [facility]2018-07-21 05:38:00 Test Item Value Reference Range Interpretation Comments AGAP (test code = AGAP) 14.2 10.0-20.0 [facility]2018-07-21 05:38:00 Test Item Value Reference Range Interpretation Comments Calcium Lvl (test code = Calcium Lvl) 8.4 8.5-10.5 [facility]2018-07-21 05:38:00 Test Item Value Reference Range Interpretation Comments Glucose Lvl (test code = Glucose Lvl) 125 70-99 [facility]2018-07-21 05:38:00 Test Item Value Reference Range Interpretation Comments Creatinine Lvl (test code = Creatinine 1.65 0.50-1.40 Lvl) [facility]2018-07-21 05:38:00 Test Item Value Reference Range Interpretation Comments BUN (test code = BUN) 51 7-22 [facility]2018-07-21 05:38:00 Test Item Value Reference Range Interpretation Comments Chloride Lvl (test code = Chloride Lvl) 100 95-109 [facility]2018-07-21 05:38:00 Test Item Value Reference Range Interpretation Comments Sodium Lvl (test code = Sodium Lvl) 136 135-145 [facility]2018-07-21 05:38:00 Test Item Value Reference Range Interpretation Comments CO2 (test code = CO2) 27 24-32 [facility]2018-07-21 05:38:00 Test Item Value Reference Range Interpretation Comments Potassium Lvl (test code = Potassium 5.2 3.5-5.1 Lvl) [facility]2018-07-21 05:38:00 Test Item Value Reference Range Interpretation Comments eGFR (test code = eGFR) 40 [facility]2018-07-21 05:38:00 Test Item Value Reference Range Interpretation Comments AGAP (test code = AGAP) 14.2 10.0-20.0 [facility]2018-07-21 05:38:00 Test Item Value Reference Range Interpretation Comments Calcium Lvl (test code = Calcium Lvl) 8.4 8.5-10.5 [facility]2018-07-21 05:38:00 Test Item Value Reference Range Interpretation Comments Glucose Lvl (test code = Glucose Lvl) 125 70-99 [facility]2018-07-21 05:38:00 Test Item Value Reference Range Interpretation Comments Creatinine Lvl (test code = Creatinine 1.65 0.50-1.40 Lvl) [facility]2018-07-21 05:38:00 Test Item Value Reference Range Interpretation Comments BUN (test code = BUN) 51 7-22 [facility]2018-07-21 05:38:00 Test Item Value Reference Range Interpretation Comments Chloride Lvl (test code = Chloride Lvl) 100 95-109 [facility]2018-07-21 05:38:00 Test Item Value Reference Range Interpretation Comments Sodium Lvl (test code = Sodium Lvl) 136 135-145 [facility]2018-07-21 05:38:00 Test Item Value Reference Range Interpretation Comments CO2 (test code = CO2) - [facility]2018-07-21 05:38:00 Test Item Value Reference Range Interpretation Comments Potassium Lvl (test code = Potassium 5.2 3.5-5.1 Lvl) [facility]2018-07-21 05:38:00 Test Item Value Reference Range Interpretation Comments eGFR (test code = eGFR) 40 [facility]2018-07-21 05:38:00 Test Item Value Reference Range Interpretation Comments AGAP (test code = AGAP) 14.2 10.0-20.0 [facility]2018-07-21 05:38:00 Test Item Value Reference Range Interpretation Comments Calcium Lvl (test code = Calcium Lvl) 8.4 8.5-10.5 [facility]2018-07-21 05:38:00 Test Item Value Reference Range Interpretation Comments Glucose Lvl (test code = Glucose Lvl) 125 70-99 [facility]2018-07-21 05:38:00 Test Item Value Reference Range Interpretation Comments Creatinine Lvl (test code = Creatinine 1.65 0.50-1.40 Lvl) [facility]2018-07-21 05:38:00 Test Item Value Reference Range Interpretation Comments BUN (test code = BUN) 51 7-22 [facility]2018-07-21 05:38:00 Test Item Value Reference Range Interpretation Comments Chloride Lvl (test code = Chloride Lvl) 100 95-109 [facility]2018-07-21 05:38:00 Test Item Value Reference Range Interpretation Comments Sodium Lvl (test code = Sodium Lvl) 136 135-145 [facility]2018-07-21 05:38:00 Test Item Value Reference Range Interpretation Comments CO2 (test code = CO2) 24-32 [facility]2018-07-21 05:38:00 Test Item Value Reference Range Interpretation Comments Potassium Lvl (test code = Potassium 5.2 3.5-5.1 Lvl) [facility]2018-07-21 05:38:00 Test Item Value Reference Range Interpretation Comments eGFR (test code = eGFR) 40 [facility]2018-07-21 05:38:00 Test Item Value Reference Range Interpretation Comments AGAP (test code = AGAP) 14.2 10.0-20.0 [facility]2018-07-21 05:38:00 Test Item Value Reference Range Interpretation Comments Calcium Lvl (test code = Calcium Lvl) 8.4 8.5-10.5 [facility]2018-07-21 05:38:00 Test Item Value Reference Range Interpretation Comments Glucose Lvl (test code = Glucose Lvl) 125 70-99 [facility]2018-07-21 05:38:00 Test Item Value Reference Range Interpretation Comments Creatinine Lvl (test code = Creatinine 1.65 0.50-1.40 Lvl) [facility]2018-07-21 05:38:00 Test Item Value Reference Range Interpretation Comments BUN (test code = BUN) 51 7-22 [facility]2018-07-21 05:38:00 Test Item Value Reference Range Interpretation Comments Chloride Lvl (test code = Chloride Lvl) 100 95-109 [facility]2018-07-21 05:38:00 Test Item Value Reference Range Interpretation Comments Sodium Lvl (test code = Sodium Lvl) 136 135-145 [facility]2018-07-21 05:38:00 Test Item Value Reference Range Interpretation Comments CO2 (test code = CO2) 27 24-32 [facility]2018-07-21 05:38:00 Test Item Value Reference Range Interpretation Comments Potassium Lvl (test code = Potassium 5.2 3.5-5.1 Lvl) [facility]2018-07-21 05:38:00 Test Item Value Reference Range Interpretation Comments eGFR (test code = eGFR) 40 [facility]2018-07-21 05:38:00 Test Item Value Reference Range Interpretation Comments AGAP (test code = AGAP) 14.2 10.0-20.0 [facility]2018-07-21 05:38:00 Test Item Value Reference Range Interpretation Comments Calcium Lvl (test code = Calcium Lvl) 8.4 8.5-10.5 [facility]2018-07-21 05:38:00 Test Item Value Reference Range Interpretation Comments Glucose Lvl (test code = Glucose Lvl) 125 70-99 [facility]2018-07-21 05:38:00 Test Item Value Reference Range Interpretation Comments Creatinine Lvl (test code = Creatinine 1.65 0.50-1.40 Lvl) [facility]2018-07-21 05:38:00 Test Item Value Reference Range Interpretation Comments BUN (test code = BUN) 51 7-22 [facility]2018-07-21 05:38:00 Test Item Value Reference Range Interpretation Comments Chloride Lvl (test code = Chloride Lvl) 100 95-109 [facility]2018-07-21 05:38:00 Test Item Value Reference Range Interpretation Comments Sodium Lvl (test code = Sodium Lvl) 136 135-145 [facility]2018-07-21 05:38:00 Test Item Value Reference Range Interpretation Comments CO2 (test code = CO2) 27 24-32 [facility]2018-07-21 05:38:00 Test Item Value Reference Range Interpretation Comments Potassium Lvl (test code = Potassium 5.2 3.5-5.1 Lvl) [facility]2018-07-21 05:38:00 Test Item Value Reference Range Interpretation Comments eGFR (test code = eGFR) 40 [facility]2018-07-21 05:38:00 Test Item Value Reference Range Interpretation Comments AGAP (test code = AGAP) 14.2 10.0-20.0 [facility]2018-07-21 05:38:00 Test Item Value Reference Range Interpretation Comments Calcium Lvl (test code = Calcium Lvl) 8.4 8.5-10.5 [facility]2018-07-21 05:38:00 Test Item Value Reference Range Interpretation Comments Glucose Lvl (test code = Glucose Lvl) 125 70-99 [facility]2018-07-21 05:38:00 Test Item Value Reference Range Interpretation Comments Creatinine Lvl (test code = Creatinine 1.65 0.50-1.40 Lvl) [facility]2018-07-21 05:38:00 Test Item Value Reference Range Interpretation Comments BUN (test code = BUN) 51 7-22 [facility]2018-07-21 05:38:00 Test Item Value Reference Range Interpretation Comments Chloride Lvl (test code = Chloride Lvl) 100 95-109 [facility]2018-07-21 05:38:00 Test Item Value Reference Range Interpretation Comments Sodium Lvl (test code = Sodium Lvl) 136 135-145 [facility]2018-07-21 05:38:00 Test Item Value Reference Range Interpretation Comments CO2 (test code = CO2) 27 24-32 [facility]2018-07-21 05:38:00 Test Item Value Reference Range Interpretation Comments Potassium Lvl (test code = Potassium 5.2 3.5-5.1 Lvl) [facility]2018-07-21 05:38:00 Test Item Value Reference Range Interpretation Comments eGFR (test code = eGFR) 40 [facility]2018-07-21 05:38:00 Test Item Value Reference Range Interpretation Comments AGAP (test code = AGAP) 14.2 10.0-20.0 [facility]2018-07-21 05:38:00 Test Item Value Reference Range Interpretation Comments Calcium Lvl (test code = Calcium Lvl) 8.4 8.5-10.5 [facility]2018-07-21 05:38:00 Test Item Value Reference Range Interpretation Comments Glucose Lvl (test code = Glucose Lvl) 125 70-99 [facility]2018-07-21 05:38:00 Test Item Value Reference Range Interpretation Comments Creatinine Lvl (test code = Creatinine 1.65 0.50-1.40 Lvl) [facility]2018-07-21 05:38:00 Test Item Value Reference Range Interpretation Comments BUN (test code = BUN) 51 7-22 [facility]2018-07-21 05:38:00 Test Item Value Reference Range Interpretation Comments Chloride Lvl (test code = Chloride Lvl) 100 95-109 [facility]2018-07-21 05:38:00 Test Item Value Reference Range Interpretation Comments Sodium Lvl (test code = Sodium Lvl) 136 135-145 [facility]2018-07-21 05:38:00 Test Item Value Reference Range Interpretation Comments CO2 (test code = CO2) 27 24-32 [facility]2018-07-21 05:38:00 Test Item Value Reference Range Interpretation Comments Potassium Lvl (test code = Potassium 5.2 3.5-5.1 Lvl) [facility]2018-07-21 05:38:00 Test Item Value Reference Range Interpretation Comments eGFR (test code = eGFR) 40 [facility]2018-07-21 05:38:00 Test Item Value Reference Range Interpretation Comments AGAP (test code = AGAP) 14.2 10.0-20.0 [facility]2018-07-21 05:38:00 Test Item Value Reference Range Interpretation Comments Calcium Lvl (test code = Calcium Lvl) 8.4 8.5-10.5 [facility]2018-07-21 05:38:00 Test Item Value Reference Range Interpretation Comments Glucose Lvl (test code = Glucose Lvl) 125 70-99 [facility]2018-07-21 05:38:00 Test Item Value Reference Range Interpretation Comments Creatinine Lvl (test code = Creatinine 1.65 0.50-1.40 Lvl) [facility]2018-07-21 05:38:00 Test Item Value Reference Range Interpretation Comments BUN (test code = BUN) 51 7-22 [facility]2018-07-21 05:38:00 Test Item Value Reference Range Interpretation Comments Chloride Lvl (test code = Chloride Lvl) 100 95-109 [facility]2018-07-21 05:38:00 Test Item Value Reference Range Interpretation Comments Sodium Lvl (test code = Sodium Lvl) 136 135-145 [facility]2018-07-21 05:38:00 Test Item Value Reference Range Interpretation Comments CO2 (test code = CO2) 27 24-32 [facility]2018-07-21 05:38:00 Test Item Value Reference Range Interpretation Comments Potassium Lvl (test code = Potassium 5.2 3.5-5.1 Lvl) [facility]2018-07-21 05:38:00 Test Item Value Reference Range Interpretation Comments eGFR (test code = eGFR) 40 [facility]2018-07-21 05:38:00 Test Item Value Reference Range Interpretation Comments AGAP (test code = AGAP) 14.2 10.0-20.0 [facility]2018-07-21 05:38:00 Test Item Value Reference Range Interpretation Comments Calcium Lvl (test code = Calcium Lvl) 8.4 8.5-10.5 [facility]2018-07-21 05:38:00 Test Item Value Reference Range Interpretation Comments Glucose Lvl (test code = Glucose Lvl) 125 70-99 [facility]2018-07-21 05:38:00 Test Item Value Reference Range Interpretation Comments Creatinine Lvl (test code = Creatinine 1.65 0.50-1.40 Lvl) [facility]2018-07-21 05:38:00 Test Item Value Reference Range Interpretation Comments BUN (test code = BUN) 51 7-22 [facility]2018-07-21 05:38:00 Test Item Value Reference Range Interpretation Comments Chloride Lvl (test code = Chloride Lvl) 100 95-109 [facility]2018-07-21 05:38:00 Test Item Value Reference Range Interpretation Comments Sodium Lvl (test code = Sodium Lvl) 136 135-145 [facility]2018-07-21 05:38:00 Test Item Value Reference Range Interpretation Comments CO2 (test code = CO2) 27 24-32 [facility]2018-07-21 05:38:00 Test Item Value Reference Range Interpretation Comments Potassium Lvl (test code = Potassium 5.2 3.5-5.1 Lvl) [facility]2018-07-21 05:38:00 Test Item Value Reference Range Interpretation Comments eGFR (test code = eGFR) 40 [facility]2018-07-21 05:38:00 Test Item Value Reference Range Interpretation Comments AGAP (test code = AGAP) 14.2 10.0-20.0 [facility]2018-07-21 05:38:00 Test Item Value Reference Range Interpretation Comments Calcium Lvl (test code = Calcium Lvl) 8.4 8.5-10.5 [facility]2018-07-20 05:13:00 Test Item Value Reference Range Interpretation Comments eGFR (test code = eGFR) 37 [facility]2018-07-20 05:13:00 Test Item Value Reference Range Interpretation Comments Potassium Lvl (test code = Potassium 5.6 3.5-5.1 Lvl) [facility]2018-07-20 05:13:00 Test Item Value Reference Range Interpretation Comments Chloride Lvl (test code = Chloride Lvl) 99 95-109 [facility]2018-07-20 05:13:00 Test Item Value Reference Range Interpretation Comments CO2 (test code = CO2) 29 -32 [facility]2018-07-20 05:13:00 Test Item Value Reference Range Interpretation Comments Calcium Lvl (test code = Calcium Lvl) 8.9 8.5-10.5 [facility]2018-07-20 05:13:00 Test Item Value Reference Range Interpretation Comments AGAP (test code = AGAP) 14.6 10.0-20.0 [facility]2018-07-20 05:13:00 Test Item Value Reference Range Interpretation Comments BUN (test code = BUN) 56 7-22 [facility]2018-07-20 05:13:00 Test Item Value Reference Range Interpretation Comments Glucose Lvl (test code = Glucose Lvl) 153 70-99 [facility]2018-07-20 05:13:00 Test Item Value Reference Range Interpretation Comments Sodium Lvl (test code = Sodium Lvl) 137 135-145 [facility]2018-07-20 05:13:00 Test Item Value Reference Range Interpretation Comments Creatinine Lvl (test code = Creatinine 1.77 0.50-1.40 Lvl) [facility]2018-07-20 05:13:00 Test Item Value Reference Range Interpretation Comments eGFR (test code = eGFR) 37 [facility]2018-07-20 05:13:00 Test Item Value Reference Range Interpretation Comments Potassium Lvl (test code = Potassium 5.6 3.5-5.1 Lvl) [facility]2018-07-20 05:13:00 Test Item Value Reference Range Interpretation Comments Chloride Lvl (test code = Chloride Lvl) 99 95-109 [facility]2018-07-20 05:13:00 Test Item Value Reference Range Interpretation Comments CO2 (test code = CO2) 29 24-32 [facility]2018-07-20 05:13:00 Test Item Value Reference Range Interpretation Comments Calcium Lvl (test code = Calcium Lvl) 8.9 8.5-10.5 [facility]2018-07-20 05:13:00 Test Item Value Reference Range Interpretation Comments AGAP (test code = AGAP) 14.6 10.0-20.0 [facility]2018-07-20 05:13:00 Test Item Value Reference Range Interpretation Comments BUN (test code = BUN) 56 7-22 [facility]2018-07-20 05:13:00 Test Item Value Reference Range Interpretation Comments Glucose Lvl (test code = Glucose Lvl) 153 70-99 [facility]2018-07-20 05:13:00 Test Item Value Reference Range Interpretation Comments Sodium Lvl (test code = Sodium Lvl) 137 135-145 [facility]2018-07-20 05:13:00 Test Item Value Reference Range Interpretation Comments Creatinine Lvl (test code = Creatinine 1.77 0.50-1.40 Lvl) [facility]2018-07-20 05:13:00 Test Item Value Reference Range Interpretation Comments eGFR (test code = eGFR) 37 [facility]2018-07-20 05:13:00 Test Item Value Reference Range Interpretation Comments Potassium Lvl (test code = Potassium 5.6 3.5-5.1 Lvl) [facility]2018-07-20 05:13:00 Test Item Value Reference Range Interpretation Comments Chloride Lvl (test code = Chloride Lvl) 99 95-109 [facility]2018-07-20 05:13:00 Test Item Value Reference Range Interpretation Comments CO2 (test code = CO2) 29 24-32 [facility]2018-07-20 05:13:00 Test Item Value Reference Range Interpretation Comments Calcium Lvl (test code = Calcium Lvl) 8.9 8.5-10.5 [facility]2018-07-20 05:13:00 Test Item Value Reference Range Interpretation Comments AGAP (test code = AGAP) 14.6 10.0-20.0 [facility]2018-07-20 05:13:00 Test Item Value Reference Range Interpretation Comments BUN (test code = BUN) 56 7-22 [facility]2018-07-20 05:13:00 Test Item Value Reference Range Interpretation Comments Glucose Lvl (test code = Glucose Lvl) 153 70-99 [facility]2018-07-20 05:13:00 Test Item Value Reference Range Interpretation Comments Sodium Lvl (test code = Sodium Lvl) 137 135-145 [facility]2018-07-20 05:13:00 Test Item Value Reference Range Interpretation Comments Creatinine Lvl (test code = Creatinine 1.77 0.50-1.40 Lvl) [facility]2018-07-20 05:13:00 Test Item Value Reference Range Interpretation Comments eGFR (test code = eGFR) 37 [facility]2018-07-20 05:13:00 Test Item Value Reference Range Interpretation Comments Potassium Lvl (test code = Potassium 5.6 3.5-5.1 Lvl) [facility]2018-07-20 05:13:00 Test Item Value Reference Range Interpretation Comments Chloride Lvl (test code = Chloride Lvl) 99 95-109 [facility]2018-07-20 05:13:00 Test Item Value Reference Range Interpretation Comments CO2 (test code = CO2) 29 24-32 [facility]2018-07-20 05:13:00 Test Item Value Reference Range Interpretation Comments Calcium Lvl (test code = Calcium Lvl) 8.9 8.5-10.5 [facility]2018-07-20 05:13:00 Test Item Value Reference Range Interpretation Comments AGAP (test code = AGAP) 14.6 10.0-20.0 [facility]2018-07-20 05:13:00 Test Item Value Reference Range Interpretation Comments BUN (test code = BUN) 56 7-22 [facility]2018-07-20 05:13:00 Test Item Value Reference Range Interpretation Comments Glucose Lvl (test code = Glucose Lvl) 153 70-99 [facility]2018-07-20 05:13:00 Test Item Value Reference Range Interpretation Comments Sodium Lvl (test code = Sodium Lvl) 137 135-145 [facility]2018-07-20 05:13:00 Test Item Value Reference Range Interpretation Comments Creatinine Lvl (test code = Creatinine 1.77 0.50-1.40 Lvl) [facility]2018-07-20 05:13:00 Test Item Value Reference Range Interpretation Comments eGFR (test code = eGFR) 37 [facility]2018-07-20 05:13:00 Test Item Value Reference Range Interpretation Comments Potassium Lvl (test code = Potassium 5.6 3.5-5.1 Lvl) [facility]2018-07-20 05:13:00 Test Item Value Reference Range Interpretation Comments Chloride Lvl (test code = Chloride Lvl) 99 95-109 [facility]2018-07-20 05:13:00 Test Item Value Reference Range Interpretation Comments CO2 (test code = CO2) 29 24-32 [facility]2018-07-20 05:13:00 Test Item Value Reference Range Interpretation Comments Calcium Lvl (test code = Calcium Lvl) 8.9 8.5-10.5 [facility]2018-07-20 05:13:00 Test Item Value Reference Range Interpretation Comments AGAP (test code = AGAP) 14.6 10.0-20.0 [facility]2018-07-20 05:13:00 Test Item Value Reference Range Interpretation Comments BUN (test code = BUN) 56 7-22 [facility]2018-07-20 05:13:00 Test Item Value Reference Range Interpretation Comments Glucose Lvl (test code = Glucose Lvl) 153 70-99 [facility]2018-07-20 05:13:00 Test Item Value Reference Range Interpretation Comments Sodium Lvl (test code = Sodium Lvl) 137 135-145 [facility]2018-07-20 05:13:00 Test Item Value Reference Range Interpretation Comments Creatinine Lvl (test code = Creatinine 1.77 0.50-1.40 Lvl) [facility]2018-07-20 05:13:00 Test Item Value Reference Range Interpretation Comments eGFR (test code = eGFR) 37 [facility]2018-07-20 05:13:00 Test Item Value Reference Range Interpretation Comments Potassium Lvl (test code = Potassium 5.6 3.5-5.1 Lvl) [facility]2018-07-20 05:13:00 Test Item Value Reference Range Interpretation Comments Chloride Lvl (test code = Chloride Lvl) 99 95-109 [facility]2018-07-20 05:13:00 Test Item Value Reference Range Interpretation Comments CO2 (test code = CO2) 29 24-32 [facility]2018-07-20 05:13:00 Test Item Value Reference Range Interpretation Comments Calcium Lvl (test code = Calcium Lvl) 8.9 8.5-10.5 [facility]2018-07-20 05:13:00 Test Item Value Reference Range Interpretation Comments AGAP (test code = AGAP) 14.6 10.0-20.0 [facility]2018-07-20 05:13:00 Test Item Value Reference Range Interpretation Comments BUN (test code = BUN) 56 7-22 [facility]2018-07-20 05:13:00 Test Item Value Reference Range Interpretation Comments Glucose Lvl (test code = Glucose Lvl) 153 70-99 [facility]2018-07-20 05:13:00 Test Item Value Reference Range Interpretation Comments Sodium Lvl (test code = Sodium Lvl) 137 135-145 [facility]2018-07-20 05:13:00 Test Item Value Reference Range Interpretation Comments Creatinine Lvl (test code = Creatinine 1.77 0.50-1.40 Lvl) [facility]2018-07-20 05:13:00 Test Item Value Reference Range Interpretation Comments eGFR (test code = eGFR) 37 [facility]2018-07-20 05:13:00 Test Item Value Reference Range Interpretation Comments Potassium Lvl (test code = Potassium 5.6 3.5-5.1 Lvl) [facility]2018-07-20 05:13:00 Test Item Value Reference Range Interpretation Comments Chloride Lvl (test code = Chloride Lvl) 99 95-109 [facility]2018-07-20 05:13:00 Test Item Value Reference Range Interpretation Comments CO2 (test code = CO2) 29 24-32 [facility]2018-07-20 05:13:00 Test Item Value Reference Range Interpretation Comments Calcium Lvl (test code = Calcium Lvl) 8.9 8.5-10.5 [facility]2018-07-20 05:13:00 Test Item Value Reference Range Interpretation Comments AGAP (test code = AGAP) 14.6 10.0-20.0 [facility]2018-07-20 05:13:00 Test Item Value Reference Range Interpretation Comments BUN (test code = BUN) 56 7-22 [facility]2018-07-20 05:13:00 Test Item Value Reference Range Interpretation Comments Glucose Lvl (test code = Glucose Lvl) 153 70-99 [facility]2018-07-20 05:13:00 Test Item Value Reference Range Interpretation Comments Sodium Lvl (test code = Sodium Lvl) 137 135-145 [facility]2018-07-20 05:13:00 Test Item Value Reference Range Interpretation Comments Creatinine Lvl (test code = Creatinine 1.77 0.50-1.40 Lvl) [facility]2018-07-20 05:13:00 Test Item Value Reference Range Interpretation Comments eGFR (test code = eGFR) 37 [facility]2018-07-20 05:13:00 Test Item Value Reference Range Interpretation Comments Potassium Lvl (test code = Potassium 5.6 3.5-5.1 Lvl) [facility]2018-07-20 05:13:00 Test Item Value Reference Range Interpretation Comments Chloride Lvl (test code = Chloride Lvl) 99 95-109 [facility]2018-07-20 05:13:00 Test Item Value Reference Range Interpretation Comments CO2 (test code = CO2) 29 24-32 [facility]2018-07-20 05:13:00 Test Item Value Reference Range Interpretation Comments Calcium Lvl (test code = Calcium Lvl) 8.9 8.5-10.5 [facility]2018-07-20 05:13:00 Test Item Value Reference Range Interpretation Comments AGAP (test code = AGAP) 14.6 10.0-20.0 [facility]2018-07-20 05:13:00 Test Item Value Reference Range Interpretation Comments BUN (test code = BUN) 56 7-22 [facility]2018-07-20 05:13:00 Test Item Value Reference Range Interpretation Comments Glucose Lvl (test code = Glucose Lvl) 153 70-99 [facility]2018-07-20 05:13:00 Test Item Value Reference Range Interpretation Comments Sodium Lvl (test code = Sodium Lvl) 137 135-145 [facility]2018-07-20 05:13:00 Test Item Value Reference Range Interpretation Comments Creatinine Lvl (test code = Creatinine 1.77 0.50-1.40 Lvl) [facility]2018-07-20 05:13:00 Test Item Value Reference Range Interpretation Comments eGFR (test code = eGFR) 37 [facility]2018-07-20 05:13:00 Test Item Value Reference Range Interpretation Comments Potassium Lvl (test code = Potassium 5.6 3.5-5.1 Lvl) [facility]2018-07-20 05:13:00 Test Item Value Reference Range Interpretation Comments Chloride Lvl (test code = Chloride Lvl) 99 95-109 [facility]2018-07-20 05:13:00 Test Item Value Reference Range Interpretation Comments CO2 (test code = CO2) 29 24-32 [facility]2018-07-20 05:13:00 Test Item Value Reference Range Interpretation Comments Calcium Lvl (test code = Calcium Lvl) 8.9 8.5-10.5 [facility]2018-07-20 05:13:00 Test Item Value Reference Range Interpretation Comments AGAP (test code = AGAP) 14.6 10.0-20.0 [facility]2018-07-20 05:13:00 Test Item Value Reference Range Interpretation Comments BUN (test code = BUN) 56 7-22 [facility]2018-07-20 05:13:00 Test Item Value Reference Range Interpretation Comments Glucose Lvl (test code = Glucose Lvl) 153 70-99 [facility]2018-07-20 05:13:00 Test Item Value Reference Range Interpretation Comments Sodium Lvl (test code = Sodium Lvl) 137 135-145 [facility]2018-07-20 05:13:00 Test Item Value Reference Range Interpretation Comments Creatinine Lvl (test code = Creatinine 1.77 0.50-1.40 Lvl) [facility]2018-07-20 05:13:00 Test Item Value Reference Range Interpretation Comments eGFR (test code = eGFR) 37 [facility]2018-07-20 05:13:00 Test Item Value Reference Range Interpretation Comments Potassium Lvl (test code = Potassium 5.6 3.5-5.1 Lvl) [facility]2018-07-20 05:13:00 Test Item Value Reference Range Interpretation Comments Chloride Lvl (test code = Chloride Lvl) 99 95-109 [facility]2018-07-20 05:13:00 Test Item Value Reference Range Interpretation Comments CO2 (test code = CO2) 29 -32 [facility]2018-07-20 05:13:00 Test Item Value Reference Range Interpretation Comments Calcium Lvl (test code = Calcium Lvl) 8.9 8.5-10.5 [facility]2018-07-20 05:13:00 Test Item Value Reference Range Interpretation Comments AGAP (test code = AGAP) 14.6 10.0-20.0 [facility]2018-07-20 05:13:00 Test Item Value Reference Range Interpretation Comments BUN (test code = BUN) 56 7-22 [facility]2018-07-20 05:13:00 Test Item Value Reference Range Interpretation Comments Glucose Lvl (test code = Glucose Lvl) 153 70-99 [facility]2018-07-20 05:13:00 Test Item Value Reference Range Interpretation Comments Sodium Lvl (test code = Sodium Lvl) 137 135-145 [facility]2018-07-20 05:13:00 Test Item Value Reference Range Interpretation Comments Creatinine Lvl (test code = Creatinine 1.77 0.50-1.40 Lvl) [facility]2018-07-20 05:13:00 Test Item Value Reference Range Interpretation Comments eGFR (test code = eGFR) 37 [facility]2018-07-20 05:13:00 Test Item Value Reference Range Interpretation Comments Potassium Lvl (test code = Potassium 5.6 3.5-5.1 Lvl) [facility]2018-07-20 05:13:00 Test Item Value Reference Range Interpretation Comments Chloride Lvl (test code = Chloride Lvl) 99 95-109 [facility]2018-07-20 05:13:00 Test Item Value Reference Range Interpretation Comments CO2 (test code = CO2) 29 24-32 [facility]2018-07-20 05:13:00 Test Item Value Reference Range Interpretation Comments Calcium Lvl (test code = Calcium Lvl) 8.9 8.5-10.5 [facility]2018-07-20 05:13:00 Test Item Value Reference Range Interpretation Comments AGAP (test code = AGAP) 14.6 10.0-20.0 [facility]2018-07-20 05:13:00 Test Item Value Reference Range Interpretation Comments BUN (test code = BUN) 56 7-22 [facility]2018-07-20 05:13:00 Test Item Value Reference Range Interpretation Comments Glucose Lvl (test code = Glucose Lvl) 153 70-99 [facility]2018-07-20 05:13:00 Test Item Value Reference Range Interpretation Comments Sodium Lvl (test code = Sodium Lvl) 137 135-145 [facility]2018-07-20 05:13:00 Test Item Value Reference Range Interpretation Comments Creatinine Lvl (test code = Creatinine 1.77 0.50-1.40 Lvl) [facility]855[facility] 05:43:00 Test Item Value Reference Range Interpretation Comments Lymphocytes (test code = Lymphocytes) 7.0 20.0-40.0 [facility] HospitalRvazvgzAQVRIBUYWQ1817-79-83 05:43:00 Test Item Value Reference Range Interpretation Comments Monocytes (test code = Monocytes) 6.0 2.0-12.0 [facility] HospitalVvzuzvjIFSTZRFPEN3840-50-03 05:43:00 Test Item Value Reference Range Interpretation Comments Lymphocytes # (test code = Lymphocytes 0.6 1.0-5.5 #) [facility]KcsdmvqWDLSIJKLIR1129-73-27 05:43:00 Test Item Value Reference Range Interpretation Comments Monocytes # (test code 0.4 See_Comment [Aut omated message] The = Monocytes #) system which generated this result tra nsmitted reference range : <=0.8. The reference r renu was not used to int erpret this result as normal/abnormal . [facility] HospitalEkbiqxeUTKOYIKQES4360-53-04 05:43:00 Test Item Value Reference Range Interpretation Comments MCH (test code = MCH) 32.6 pg 27.0-31.0 [facility] HospitalDkqwyqnGXXXCZMRXO2631-34-94 05:43:00 Test Item Value Reference Range Interpretation Comments MCHC (test code = MCHC) 33.9 32.0-36.0 [facility] HospitalNhmzbsuMRJYVIQWID4344-94-76 05:43:00 Test Item Value Reference Range Interpretation Comments RDW (test code = RDW) 15.3 11.5-14.5 [facility] HospitalSifnceeOSGLHDCHGX1951-58-22 05:43:00 Test Item Value Reference Range Interpretation Comments Platelet (test code = Platelet) 136 133-450 [facility] HospitalXbkpstsVDKONYWYIW5347-50-50 05:43:00 Test Item Value Reference Range Interpretation Comments MPV (test code = MPV) 9.6 7.4-10.4 [facility] HospitalBpspvooZLKSZAUZRT0521-74-02 05:43:00 Test Item Value Reference Range Interpretation Comments WBC X 10x3 (test code = WBC X 10x3) 7.6 3.7-10.4 [facility] HospitalCychvcyOSGAEUEGDV7918-21-96 05:43:00 Test Item Value Reference Range Interpretation Comments Hct (test code = Hct) 31.0 42.0-54.0 [facility] HospitalNwslvkrFRTLHXDOSU6015-65-44 05:43:00 Test Item Value Reference Range Interpretation Comments MCV (test code = MCV) 96.1 80.0-94.0 [facility] HospitalGujaqyrVBXQTGSDFQ1666-18-66 05:43:00 Test Item Value Reference Range Interpretation Comments RBC X 10x6 (test code = RBC X 10x6) 3.22 4.70-6.10 [facility] HospitalHzsylttWIWKJLAWLN4424-47-22 05:43:00 Test Item Value Reference Range Interpretation Comments Hgb (test code = Hgb) 10.5 14.0-18.0 [facility]2018-07-18 05:43:00 Test Item Value Reference Range Interpretation Comments Phosphorus (test code = Phosphorus) 4.1 2.5-4.5 [facility]2018-07-18 05:43:00 Test Item Value Reference Range Interpretation Comments Magnesium Lvl (test code = Magnesium 2.8 1.8-2.4 Lvl) [facility] HospitalTgbgjlyZEZJVOKDQJ0901-20-86 05:43:00 Test Item Value Reference Range Interpretation Comments Segs (test code = Segs) 87.0 45.0-75.0 [facility] HospitalOkpzjraRFOLYXVORA8705-30-62 05:43:00 Test Item Value Reference Range Interpretation Comments Neutrophils # (test code = Neutrophils 6.6 1.5-8.1 #) [facility] HospitalEgyppdmQDJWCIUSKJ6205-38-00 05:43:00 Test Item Value Reference Range Interpretation Comments Lymphocytes (test code = Lymphocytes) 7.0 20.0-40.0 [facility] HospitalEvvkyzbAXUPZHKUOV0679-28-33 05:43:00 Test Item Value Reference Range Interpretation Comments Monocytes (test code = Monocytes) 6.0 2.0-12.0 [facility] HospitalTuufdkzXJOCERVUFT7011-24-29 05:43:00 Test Item Value Reference Range Interpretation Comments Lymphocytes # (test code = Lymphocytes 0.6 1.0-5.5 #) [facility] HospitalOgnvisiSRJMHJLZRE8167-49-83 05:43:00 Test Item Value Reference Range Interpretation Comments Monocytes # (test code 0.4 See_Comment [Aut omated message] The = Monocytes #) system which generated this result tra nsmitted reference range : <=0.8. The reference r renu was not used to int erpret this result as normal/abnormal . [facility] HospitalCgcmnfjVAHOPPPBZL6881-75-13 05:43:00 Test Item Value Reference Range Interpretation Comments MCH (test code = MCH) 32.6 pg 27.0-31.0 [facility] HospitalApimuwzZEVCEDQSXD0137-48-70 05:43:00 Test Item Value Reference Range Interpretation Comments MCHC (test code = MCHC) 33.9 32.0-36.0 [facility] HospitalHjmrlpzBPQCIOMVYR7484-36-81 05:43:00 Test Item Value Reference Range Interpretation Comments RDW (test code = RDW) 15.3 11.5-14.5 [facility] HospitalAodbjgdITSYLOMKFZ2988-29-31 05:43:00 Test Item Value Reference Range Interpretation Comments Platelet (test code = Platelet) 136 133-450 [facility] HospitalZiigsvzYMMUHTQMRL7412-48-93 05:43:00 Test Item Value Reference Range Interpretation Comments MPV (test code = MPV) 9.6 7.4-10.4 [facility] HospitalElliqrgJQALQRTVWM7214-21-54 05:43:00 Test Item Value Reference Range Interpretation Comments WBC X 10x3 (test code = WBC X 10x3) 7.6 3.7-10.4 [facility] HospitalMfyyelnKLOTBGHDVL0374-48-47 05:43:00 Test Item Value Reference Range Interpretation Comments Hct (test code = Hct) 31.0 42.0-54.0 [facility] HospitalTfbykbpUNEGZCSCQK4880-07-15 05:43:00 Test Item Value Reference Range Interpretation Comments MCV (test code = MCV) 96.1 80.0-94.0 [facility] HospitalBwprzqiXJKGWYQLJB2009-03-54 05:43:00 Test Item Value Reference Range Interpretation Comments RBC X 10x6 (test code = RBC X 10x6) 3.22 4.70-6.10 [facility] HospitalAlerodhSFFCLMSWJZ4141-90-14 05:43:00 Test Item Value Reference Range Interpretation Comments Hgb (test code = Hgb) 10.5 14.0-18.0 [facility]2018-07-18 05:43:00 Test Item Value Reference Range Interpretation Comments Phosphorus (test code = Phosphorus) 4.1 2.5-4.5 [facility]2018-07-18 05:43:00 Test Item Value Reference Range Interpretation Comments Magnesium Lvl (test code = Magnesium 2.8 1.8-2.4 Lvl) [facility] HospitalOkweweqYOWBJALZCP1190-26-47 05:43:00 Test Item Value Reference Range Interpretation Comments Segs (test code = Segs) 87.0 45.0-75.0 [facility] HospitalAvnuvhlGEIHPZHUNN5451-25-96 05:43:00 Test Item Value Reference Range Interpretation Comments Neutrophils # (test code = Neutrophils 6.6 1.5-8.1 #) [facility] HospitalDfrrdfmLZWWULIKPA6598-77-38 05:43:00 Test Item Value Reference Range Interpretation Comments Lymphocytes (test code = Lymphocytes) 7.0 20.0-40.0 [facility] HospitalVzagjatBTJRKZAJIM3974-96-81 05:43:00 Test Item Value Reference Range Interpretation Comments Monocytes (test code = Monocytes) 6.0 2.0-12.0 [facility] HospitalJsviycoPRQHZJFXOD1995-20-41 05:43:00 Test Item Value Reference Range Interpretation Comments Lymphocytes # (test code = Lymphocytes 0.6 1.0-5.5 #) [facility] HospitalSqfcyqgOZMQHTTJKI4987-97-92 05:43:00 Test Item Value Reference Range Interpretation Comments Monocytes # (test code 0.4 See_Comment [Aut omated message] The = Monocytes #) system which generated this result tra nsmitted reference range : <=0.8. The reference r renu was not used to int erpret this result as normal/abnormal . [facility] HospitalGafazegSPEMBBVVVJ0157-03-14 05:43:00 Test Item Value Reference Range Interpretation Comments MCH (test code = MCH) 32.6 pg 27.0-31.0 [facility] HospitalVrfxojnEGILELTFZR1549-63-62 05:43:00 Test Item Value Reference Range Interpretation Comments MCHC (test code = MCHC) 33.9 32.0-36.0 [facility] HospitalLeyguqkMHOCTCKTJR7583-64-75 05:43:00 Test Item Value Reference Range Interpretation Comments RDW (test code = RDW) 15.3 11.5-14.5 [facility] HospitalPtahhzbKLSTAHPCNH3867-60-05 05:43:00 Test Item Value Reference Range Interpretation Comments Platelet (test code = Platelet) 136 133-450 [facility] HospitalEkctktaWYPRUVFLPP5949-13-77 05:43:00 Test Item Value Reference Range Interpretation Comments MPV (test code = MPV) 9.6 7.4-10.4 [facility] HospitalAalsvxtDVHGPCCUAX4751-59-05 05:43:00 Test Item Value Reference Range Interpretation Comments WBC X 10x3 (test code = WBC X 10x3) 7.6 3.7-10.4 [facility] HospitalJrzdrvuQGEYLKNKVS2731-83-03 05:43:00 Test Item Value Reference Range Interpretation Comments Hct (test code = Hct) 31.0 42.0-54.0 [facility] HospitalBodemvmNHCPUAIPCL0939-34-69 05:43:00 Test Item Value Reference Range Interpretation Comments MCV (test code = MCV) 96.1 80.0-94.0 [facility] HospitalRpedioiALLQDGGTTF5030-78-10 05:43:00 Test Item Value Reference Range Interpretation Comments RBC X 10x6 (test code = RBC X 10x6) 3.22 4.70-6.10 [facility] HospitalEsylijjKZDKAFKLSS6657-34-36 05:43:00 Test Item Value Reference Range Interpretation Comments Hgb (test code = Hgb) 10.5 14.0-18.0 [facility]2018-07-18 05:43:00 Test Item Value Reference Range Interpretation Comments Phosphorus (test code = Phosphorus) 4.1 2.5-4.5 [facility]2018-07-18 05:43:00 Test Item Value Reference Range Interpretation Comments Magnesium Lvl (test code = Magnesium 2.8 1.8-2.4 Lvl) [facility] HospitalVmxbarmPFLNAYMZZH1604-45-17 05:43:00 Test Item Value Reference Range Interpretation Comments Segs (test code = Segs) 87.0 45.0-75.0 [facility] HospitalSgbytldVNFBYWDHCL8222-80-26 05:43:00 Test Item Value Reference Range Interpretation Comments Neutrophils # (test code = Neutrophils 6.6 1.5-8.1 #) [facility] HospitalRkqhuetACOATQZZNA3473-35-22 05:43:00 Test Item Value Reference Range Interpretation Comments Lymphocytes (test code = Lymphocytes) 7.0 20.0-40.0 [facility] HospitalFytxsmkNBDYEOZVUA1031-11-94 05:43:00 Test Item Value Reference Range Interpretation Comments Monocytes (test code = Monocytes) 6.0 2.0-12.0 [facility] HospitalAscxaksASJEOVKGFM2840-40-89 05:43:00 Test Item Value Reference Range Interpretation Comments Lymphocytes # (test code = Lymphocytes 0.6 1.0-5.5 #) [facility] HospitalAwyauilXZTMXGMUON3991-15-02 05:43:00 Test Item Value Reference Range Interpretation Comments Monocytes # (test code 0.4 See_Comment [Aut omated message] The = Monocytes #) system which generated this result tra nsmitted reference range : <=0.8. The reference r renu was not used to int erpret this result as normal/abnormal . [facility] HospitalSskavrcWJYZXOOWNR9140-44-21 05:43:00 Test Item Value Reference Range Interpretation Comments MCH (test code = MCH) 32.6 pg 27.0-31.0 [facility] HospitalDpqkssnEOOHMCAWWC8013-17-81 05:43:00 Test Item Value Reference Range Interpretation Comments MCHC (test code = MCHC) 33.9 32.0-36.0 [facility] HospitalQwmwhleCELGAQQAXD9435-66-29 05:43:00 Test Item Value Reference Range Interpretation Comments RDW (test code = RDW) 15.3 11.5-14.5 [facility] HospitalXnxxaqjAVIHHHMIAG4730-28-13 05:43:00 Test Item Value Reference Range Interpretation Comments Platelet (test code = Platelet) 136 133-450 [facility] HospitalQcxtwvbOSBRSXBLTO1659-04-66 05:43:00 Test Item Value Reference Range Interpretation Comments MPV (test code = MPV) 9.6 7.4-10.4 [facility] HospitalBjueywmYARJSNVHHG7634-83-43 05:43:00 Test Item Value Reference Range Interpretation Comments WBC X 10x3 (test code = WBC X 10x3) 7.6 3.7-10.4 [facility] HospitalFucgoefWNKGSQTWCY2665-70-98 05:43:00 Test Item Value Reference Range Interpretation Comments Hct (test code = Hct) 31.0 42.0-54.0 [facility] HospitalIfeiowlAZWGOZUTYM2931-31-55 05:43:00 Test Item Value Reference Range Interpretation Comments MCV (test code = MCV) 96.1 80.0-94.0 [facility] [facility]G7705-43-81 05:43:00 Test Item Value Reference Range Interpretation Comments RBC X 10x6 (test code = RBC X 10x6) 3.22 4.70-6.10 [facility]QkpudiyKWRNSSLFCQ7839-36-80 05:43:00 Test Item Value Reference Range Interpretation Comments Hgb (test code = Hgb) 10.5 14.0-18.0 [facility]2018-07-18 05:43:00 Test Item Value Reference Range Interpretation Comments Phosphorus (test code = Phosphorus) 4.1 2.5-4.5 [facility] DJVDQ6103-88-06 05:43:00 Test Item Value Reference Range Interpretation Comments Magnesium Lvl (test code = Magnesium 2.8 1.8-2.4 Lvl) [facility] HospitalCzfybegWEAIHEPQBI3889-37-97 05:43:00 Test Item Value Reference Range Interpretation Comments Segs (test code = Segs) 87.0 45.0-75.0 [facility] HospitalPeyndqkWRRWHOYNWX3201-89-13 05:43:00 Test Item Value Reference Range Interpretation Comments Neutrophils # (test code = Neutrophils 6.6 1.5-8.1 #) [facility] HospitalUmqcgwlJPCAACRZOZ7077-62-87 05:43:00 Test Item Value Reference Range Interpretation Comments Lymphocytes (test code = Lymphocytes) 7.0 20.0-40.0 [facility] HospitalQkesoalSAQMZFGUYT6763-14-11 05:43:00 Test Item Value Reference Range Interpretation Comments Monocytes (test code = Monocytes) 6.0 2.0-12.0 [facility] HospitalWrlgkbaVDJBKKNGRF2790-67-76 05:43:00 Test Item Value Reference Range Interpretation Comments Lymphocytes # (test code = Lymphocytes 0.6 1.0-5.5 #) [facility] HospitalGwsnravFXCUPSLOEM4626-08-77 05:43:00 Test Item Value Reference Range Interpretation Comments Monocytes # (test code 0.4 See_Comment [Aut omated message] The = Monocytes #) system which generated this result tra nsmitted reference range : <=0.8. The reference r renu was not used to int erpret this result as normal/abnormal . [facility] HospitalOwwzmeuKZKKILFHPC7510-38-39 05:43:00 Test Item Value Reference Range Interpretation Comments MCH (test code = MCH) 32.6 pg 27.0-31.0 [facility] HospitalTlwrscfWVWDLKIEVE9243-26-06 05:43:00 Test Item Value Reference Range Interpretation Comments MCHC (test code = MCHC) 33.9 32.0-36.0 [facility] HospitalYyufypyRCIHYPUHFM3515-28-39 05:43:00 Test Item Value Reference Range Interpretation Comments RDW (test code = RDW) 15.3 11.5-14.5 [facility] HospitalBglfgbaQHDDKQALIV1632-87-84 05:43:00 Test Item Value Reference Range Interpretation Comments Platelet (test code = Platelet) 136 133-450 [facility] HospitalXdaipbmVKFRNAHBGI1181-00-20 05:43:00 Test Item Value Reference Range Interpretation Comments MPV (test code = MPV) 9.6 7.4-10.4 [facility] HospitalZuelwntCOGCKMNJNY2917-28-00 05:43:00 Test Item Value Reference Range Interpretation Comments WBC X 10x3 (test code = WBC X 10x3) 7.6 3.7-10.4 [facility] HospitalAsjmcvxQZAVGYFFEL5744-51-54 05:43:00 Test Item Value Reference Range Interpretation Comments Hct (test code = Hct) 31.0 42.0-54.0 [facility] HospitalYljikzaDINIXXHSMR8830-34-53 05:43:00 Test Item Value Reference Range Interpretation Comments MCV (test code = MCV) 96.1 80.0-94.0 [facility] HospitalYdmsfkqLXMMYMPPAI9096-36-83 05:43:00 Test Item Value Reference Range Interpretation Comments RBC X 10x6 (test code = RBC X 10x6) 3.22 4.70-6.10 [facility] HospitalKqxwuiuZMEUSSIBCB6459-73-73 05:43:00 Test Item Value Reference Range Interpretation Comments Hgb (test code = Hgb) 10.5 14.0-18.0 [facility]2018-07-18 05:43:00 Test Item Value Reference Range Interpretation Comments Phosphorus (test code = Phosphorus) 4.1 2.5-4.5 [facility]2018-07-18 05:43:00 Test Item Value Reference Range Interpretation Comments Magnesium Lvl (test code = Magnesium 2.8 1.8-2.4 Lvl) [facility] HospitalIcqxumoPBTUFDOOUC6791-60-30 05:43:00 Test Item Value Reference Range Interpretation Comments Segs (test code = Segs) 87.0 45.0-75.0 [facility] HospitalCcvxhasCYVEHSPBTC4320-64-76 05:43:00 Test Item Value Reference Range Interpretation Comments Neutrophils # (test code = Neutrophils 6.6 1.5-8.1 #) [facility] HospitalWaaecxtKQPJQHPFSE5485-40-75 05:43:00 Test Item Value Reference Range Interpretation Comments Lymphocytes (test code = Lymphocytes) 7.0 20.0-40.0 [facility] HospitalQombmfzKXIOQPITXJ1378-32-01 05:43:00 Test Item Value Reference Range Interpretation Comments Monocytes (test code = Monocytes) 6.0 2.0-12.0 [facility] HospitalTqvcjerCPCNHPQTLA5729-92-95 05:43:00 Test Item Value Reference Range Interpretation Comments Lymphocytes # (test code = Lymphocytes 0.6 1.0-5.5 #) [facility] HospitalAcdwxioYBMBMLHNSV6186-34-45 05:43:00 Test Item Value Reference Range Interpretation Comments Monocytes # (test code 0.4 See_Comment [Aut omated message] The = Monocytes #) system which generated this result tra nsmitted reference range : <=0.8. The reference r renu was not used to int erpret this result as normal/abnormal . [facility] HospitalOmcrhcxBPGRBHYFBH8344-95-63 05:43:00 Test Item Value Reference Range Interpretation Comments MCH (test code = MCH) 32.6 pg 27.0-31.0 [facility] HospitalMfilppiRADROTFMMH1690-78-43 05:43:00 Test Item Value Reference Range Interpretation Comments MCHC (test code = MCHC) 33.9 32.0-36.0 [facility] HospitalDswyaovUOPEYDYBJF1548-51-50 05:43:00 Test Item Value Reference Range Interpretation Comments RDW (test code = RDW) 15.3 11.5-14.5 [facility] HospitalNznmahwWFTQIKNWZK3274-66-88 05:43:00 Test Item Value Reference Range Interpretation Comments Platelet (test code = Platelet) 136 133-450 [facility] HospitalSzfgkwmQVQKSZSMLI8671-62-52 05:43:00 Test Item Value Reference Range Interpretation Comments MPV (test code = MPV) 9.6 7.4-10.4 [facility] HospitalCobkcoyPFNXEVBVWT6159-38-48 05:43:00 Test Item Value Reference Range Interpretation Comments WBC X 10x3 (test code = WBC X 10x3) 7.6 3.7-10.4 [facility] HospitalLpptmziGFHRWWLXJT7924-46-61 05:43:00 Test Item Value Reference Range Interpretation Comments Hct (test code = Hct) 31.0 42.0-54.0 [facility] HospitalFowsnnoCJYWWHMNMG2269-23-61 05:43:00 Test Item Value Reference Range Interpretation Comments MCV (test code = MCV) 96.1 80.0-94.0 [facility] HospitalPfitdtxKUDOMKKEUY3840-46-62 05:43:00 Test Item Value Reference Range Interpretation Comments RBC X 10x6 (test code = RBC X 10x6) 3.22 4.70-6.10 [facility] HospitalQhabzchDNUORPMRTB7553-73-62 05:43:00 Test Item Value Reference Range Interpretation Comments Hgb (test code = Hgb) 10.5 14.0-18.0 [facility] CALDK2437-71-71 05:43:00 Test Item Value Reference Range Interpretation Comments Phosphorus (test code = Phosphorus) 4.1 2.5-4.5 [facility] YUDZZ7085-03-99 05:43:00 Test Item Value Reference Range Interpretation Comments Magnesium Lvl (test code = Magnesium 2.8 1.8-2.4 Lvl) [facility] HospitalZcqaethMERUBMUOGT0954-78-62 05:43:00 Test Item Value Reference Range Interpretation Comments Segs (test code = Segs) 87.0 45.0-75.0 [facility] HospitalUnlgaigUQCTIYNURW8399-78-34 05:43:00 Test Item Value Reference Range Interpretation Comments Neutrophils # (test code = Neutrophils 6.6 1.5-8.1 #) [facility] HospitalIdtvyeiDDIKBAWCIW0790-48-19 05:43:00 Test Item Value Reference Range Interpretation Comments Lymphocytes (test code = Lymphocytes) 7.0 20.0-40.0 [facility] HospitalAvwkrnvGGTJCCSWYS0740-87-59 05:43:00 Test Item Value Reference Range Interpretation Comments Monocytes (test code = Monocytes) 6.0 2.0-12.0 [facility] HospitalOqoyxmvVMQDNRTJOI0784-27-81 05:43:00 Test Item Value Reference Range Interpretation Comments Lymphocytes # (test code = Lymphocytes 0.6 1.0-5.5 #) [facility] HospitalVmzltjvUAQCRISIIA2336-47-96 05:43:00 Test Item Value Reference Range Interpretation Comments Monocytes # (test code 0.4 See_Comment [Aut omated message] The = Monocytes #) system which generated this result tra nsmitted reference range : <=0.8. The reference r renu was not used to int erpret this result as normal/abnormal . [facility] HospitalBdhvjhrCXCMFEWNWO1791-87-32 05:43:00 Test Item Value Reference Range Interpretation Comments MCH (test code = MCH) 32.6 pg 27.0-31.0 [facility] HospitalSodasdbYDKPCYUMUG5695-44-24 05:43:00 Test Item Value Reference Range Interpretation Comments MCHC (test code = MCHC) 33.9 32.0-36.0 [facility] HospitalHfhyxjcSQQFJKZMIV9474-29-28 05:43:00 Test Item Value Reference Range Interpretation Comments RDW (test code = RDW) 15.3 11.5-14.5 [facility] HospitalAykhckpJXKWWKPUYE4997-20-24 05:43:00 Test Item Value Reference Range Interpretation Comments Platelet (test code = Platelet) 136 133-450 [facility] HospitalRhlmszfSGQZICOOWX7569-86-08 05:43:00 Test Item Value Reference Range Interpretation Comments MPV (test code = MPV) 9.6 7.4-10.4 [facility] HospitalIhocvuxSMKNVCBYJD2615-00-53 05:43:00 Test Item Value Reference Range Interpretation Comments WBC X 10x3 (test code = WBC X 10x3) 7.6 3.7-10.4 [facility] HospitalUfynfpzMKFIFCELQL8831-02-48 05:43:00 Test Item Value Reference Range Interpretation Comments Hct (test code = Hct) 31.0 42.0-54.0 [facility] HospitalSaibgyoGHMBAUQCDY5639-41-50 05:43:00 Test Item Value Reference Range Interpretation Comments MCV (test code = MCV) 96.1 80.0-94.0 [facility] HospitalJjcdvvwLIHHERERHL9262-50-91 05:43:00 Test Item Value Reference Range Interpretation Comments RBC X 10x6 (test code = RBC X 10x6) 3.22 4.70-6.10 [facility] HospitalPqvtpevGIUDMTQJMY6558-03-91 05:43:00 Test Item Value Reference Range Interpretation Comments Hgb (test code = Hgb) 10.5 14.0-18.0 [facility]2018-07-18 05:43:00 Test Item Value Reference Range Interpretation Comments Phosphorus (test code = Phosphorus) 4.1 2.5-4.5 [facility]2018-07-18 05:43:00 Test Item Value Reference Range Interpretation Comments Magnesium Lvl (test code = Magnesium 2.8 1.8-2.4 Lvl) [facility] HospitalXpwnulhJVQWOJRTDR0337-53-42 05:43:00 Test Item Value Reference Range Interpretation Comments Segs (test code = Segs) 87.0 45.0-75.0 [facility] HospitalSrdafjhVLOBTNELKX5849-61-72 05:43:00 Test Item Value Reference Range Interpretation Comments Neutrophils # (test code = Neutrophils 6.6 1.5-8.1 #) [facility] HospitalUjliczmNYEALIDUMF8723-13-07 05:43:00 Test Item Value Reference Range Interpretation Comments Lymphocytes (test code = Lymphocytes) 7.0 20.0-40.0 [facility] HospitalObyrztnHZIGGWTSKF1055-96-07 05:43:00 Test Item Value Reference Range Interpretation Comments Monocytes (test code = Monocytes) 6.0 2.0-12.0 [facility] HospitalTixahtdJPXESITSKI0652-50-07 05:43:00 Test Item Value Reference Range Interpretation Comments Lymphocytes # (test code = Lymphocytes 0.6 1.0-5.5 #) [facility] HospitalPulwsyhYCSQVTYJKF5460-35-53 05:43:00 Test Item Value Reference Range Interpretation Comments Monocytes # (test code 0.4 See_Comment [Aut omated message] The = Monocytes #) system which generated this result tra nsmitted reference range : <=0.8. The reference r renu was not used to int erpret this result as normal/abnormal . [facility] HospitalFjsagnwTMMZDAPGKP7977-76-92 05:43:00 Test Item Value Reference Range Interpretation Comments MCH (test code = MCH) 32.6 pg 27.0-31.0 [facility] HospitalKidiasoFCSMLKBSPW7214-32-96 05:43:00 Test Item Value Reference Range Interpretation Comments MCHC (test code = MCHC) 33.9 32.0-36.0 [facility] HospitalMksgvtcGUIGRZBPIT3651-72-31 05:43:00 Test Item Value Reference Range Interpretation Comments RDW (test code = RDW) 15.3 11.5-14.5 [facility] HospitalAtyhgtlKABRXJLVRN5464-69-58 05:43:00 Test Item Value Reference Range Interpretation Comments Platelet (test code = Platelet) 136 133-450 [facility] HospitalFfgyytlTCPQFZIEYB2910-43-88 05:43:00 Test Item Value Reference Range Interpretation Comments MPV (test code = MPV) 9.6 7.4-10.4 [facility] HospitalDvrqrctCPXKMBXSJS0318-20-23 05:43:00 Test Item Value Reference Range Interpretation Comments WBC X 10x3 (test code = WBC X 10x3) 7.6 3.7-10.4 [facility] HospitalCzobmxhZAPSDEDOKN9138-16-38 05:43:00 Test Item Value Reference Range Interpretation Comments Hct (test code = Hct) 31.0 42.0-54.0 [facility] HospitalUksjrcmSCKOGHIXPO8583-42-39 05:43:00 Test Item Value Reference Range Interpretation Comments MCV (test code = MCV) 96.1 80.0-94.0 [facility] HospitalFjuzbzxFSHDLXXUYZ6793-15-78 05:43:00 Test Item Value Reference Range Interpretation Comments RBC X 10x6 (test code = RBC X 10x6) 3.22 4.70-6.10 [facility] HospitalYtwwkjfCNFZAGJRQY9945-98-02 05:43:00 Test Item Value Reference Range Interpretation Comments Hgb (test code = Hgb) 10.5 14.0-18.0 [facility]2018-07-18 05:43:00 Test Item Value Reference Range Interpretation Comments Phosphorus (test code = Phosphorus) 4.1 2.5-4.5 [facility] CLIHP0353-73-53 05:43:00 Test Item Value Reference Range Interpretation Comments Magnesium Lvl (test code = Magnesium 2.8 1.8-2.4 Lvl) [facility] HospitalQzdfnqoMVZTDBUZDZ7285-55-35 05:43:00 Test Item Value Reference Range Interpretation Comments Segs (test code = Segs) 87.0 45.0-75.0 [facility] HospitalYvtmiilTMLIXBNYFP5915-20-60 05:43:00 Test Item Value Reference Range Interpretation Comments Neutrophils # (test code = Neutrophils 6.6 1.5-8.1 #) [facility] HospitalClmlkuyKKZFELVYWN2037-05-64 05:43:00 Test Item Value Reference Range Interpretation Comments Lymphocytes (test code = Lymphocytes) 7.0 20.0-40.0 [facility] HospitalYswnpxwTZAEONTSDN8402-21-10 05:43:00 Test Item Value Reference Range Interpretation Comments Monocytes (test code = Monocytes) 6.0 2.0-12.0 [facility] HospitalWrvkrypDJAGQWGCOO3140-14-16 05:43:00 Test Item Value Reference Range Interpretation Comments Lymphocytes # (test code = Lymphocytes 0.6 1.0-5.5 #) [facility] HospitalTicbrjfCKQZUPZUMS9577-99-36 05:43:00 Test Item Value Reference Range Interpretation Comments Monocytes # (test code 0.4 See_Comment [Aut omated message] The = Monocytes #) system which generated this result tra nsmitted reference range : <=0.8. The reference r renu was not used to int erpret this result as normal/abnormal . [facility] HospitalLnbbtezGJAAMQOFGR0139-10-08 05:43:00 Test Item Value Reference Range Interpretation Comments MCH (test code = MCH) 32.6 pg 27.0-31.0 [facility] HospitalFloyidtPKRTZQUXEG9185-68-34 05:43:00 Test Item Value Reference Range Interpretation Comments MCHC (test code = MCHC) 33.9 32.0-36.0 [facility] HospitalXcwgttsDHUTWHLRGV0095-55-56 05:43:00 Test Item Value Reference Range Interpretation Comments RDW (test code = RDW) 15.3 11.5-14.5 [facility] HospitalRriuwstVCSPECHCKH0040-01-93 05:43:00 Test Item Value Reference Range Interpretation Comments Platelet (test code = Platelet) 136 133-450 [facility] HospitalHezrxcyAQHDEQJBBN5735-93-81 05:43:00 Test Item Value Reference Range Interpretation Comments MPV (test code = MPV) 9.6 7.4-10.4 [facility] HospitalQkaxwgvHWVXVQZUFR8022-75-90 05:43:00 Test Item Value Reference Range Interpretation Comments WBC X 10x3 (test code = WBC X 10x3) 7.6 3.7-10.4 [facility] HospitalCyzudejLMOXFHROFU2605-74-85 05:43:00 Test Item Value Reference Range Interpretation Comments Hct (test code = Hct) 31.0 42.0-54.0 [facility] HospitalRccdyrxUPJQZPMULO8773-89-86 05:43:00 Test Item Value Reference Range Interpretation Comments MCV (test code = MCV) 96.1 80.0-94.0 [facility] HospitalTsaantkVOHOBJWUIV2534-13-80 05:43:00 Test Item Value Reference Range Interpretation Comments RBC X 10x6 (test code = RBC X 10x6) 3.22 4.70-6.10 [facility] HospitalUypngodHPSUCXRAFI6824-25-01 05:43:00 Test Item Value Reference Range Interpretation Comments Hgb (test code = Hgb) 10.5 14.0-18.0 [facility]2018-07-18 05:43:00 Test Item Value Reference Range Interpretation Comments Phosphorus (test code = Phosphorus) 4.1 2.5-4.5 [facility]2018-07-18 05:43:00 Test Item Value Reference Range Interpretation Comments Magnesium Lvl (test code = Magnesium 2.8 1.8-2.4 Lvl) [facility] HospitalBafimqxPODQWNYAGX5587-65-74 05:43:00 Test Item Value Reference Range Interpretation Comments Segs (test code = Segs) 87.0 45.0-75.0 [facility] HospitalLgxeaohMOTXCPTXEW4798-53-25 05:43:00 Test Item Value Reference Range Interpretation Comments Neutrophils # (test code = Neutrophils 6.6 1.5-8.1 #) [facility] HospitalGtygkrvARLNBCTJMN5648-07-21 05:43:00 Test Item Value Reference Range Interpretation Comments Lymphocytes (test code = Lymphocytes) 7.0 20.0-40.0 [facility] HospitalPqhnpaoVGVQYYYMLV9420-59-97 05:43:00 Test Item Value Reference Range Interpretation Comments Monocytes (test code = Monocytes) 6.0 2.0-12.0 [facility] HospitalFxzxpffDDDEJJOPXB9585-54-28 05:43:00 Test Item Value Reference Range Interpretation Comments Lymphocytes # (test code = Lymphocytes 0.6 1.0-5.5 #) [facility] HospitalHtoausoZLJAVNNJLF1534-57-35 05:43:00 Test Item Value Reference Range Interpretation Comments Monocytes # (test code 0.4 See_Comment [Aut omated message] The = Monocytes #) system which generated this result tra nsmitted reference range : <=0.8. The reference r renu was not used to int erpret this result as normal/abnormal . [facility] HospitalPzjonxgZYJPURVQQA2333-56-73 05:43:00 Test Item Value Reference Range Interpretation Comments MCH (test code = MCH) 32.6 pg 27.0-31.0 [facility] HospitalGxevathJQSODMRMUO9196-52-18 05:43:00 Test Item Value Reference Range Interpretation Comments MCHC (test code = MCHC) 33.9 32.0-36.0 [facility] HospitalQslsmbnTDAGTPYCFD9810-90-77 05:43:00 Test Item Value Reference Range Interpretation Comments RDW (test code = RDW) 15.3 11.5-14.5 [facility] HospitalHhppxqmPTCFVSZHYT0672-46-14 05:43:00 Test Item Value Reference Range Interpretation Comments Platelet (test code = Platelet) 136 133-450 [facility] HospitalRdgrojlSQGGGZEOKW8975-11-15 05:43:00 Test Item Value Reference Range Interpretation Comments MPV (test code = MPV) 9.6 7.4-10.4 [facility] HospitalLiefiylOORMDMYSSA1950-80-95 05:43:00 Test Item Value Reference Range Interpretation Comments WBC X 10x3 (test code = WBC X 10x3) 7.6 3.7-10.4 [facility] HospitalTktheumSXNKKWEREN1142-77-95 05:43:00 Test Item Value Reference Range Interpretation Comments Hct (test code = Hct) 31.0 42.0-54.0 [facility] HospitalUqcmcyuCKQDAYNFVX5895-27-72 05:43:00 Test Item Value Reference Range Interpretation Comments MCV (test code = MCV) 96.1 80.0-94.0 [facility] HospitalZkgkebaKSPFICMAYH8839-41-05 05:43:00 Test Item Value Reference Range Interpretation Comments RBC X 10x6 (test code = RBC X 10x6) 3.22 4.70-6.10 [facility] HospitalLzbimnwDVBCVTARRW8922-02-78 05:43:00 Test Item Value Reference Range Interpretation Comments Hgb (test code = Hgb) 10.5 14.0-18.0 [facility]2018-07-18 05:43:00 Test Item Value Reference Range Interpretation Comments Phosphorus (test code = Phosphorus) 4.1 2.5-4.5 [facility]2018-07-18 05:43:00 Test Item Value Reference Range Interpretation Comments Magnesium Lvl (test code = Magnesium 2.8 1.8-2.4 Lvl) [facility] HospitalEsdmvcvUKCMUOBPGH4501-94-87 05:43:00 Test Item Value Reference Range Interpretation Comments Segs (test code = Segs) 87.0 45.0-75.0 [facility] HospitalKncynjiSVPVEHOMGW1833-51-60 05:43:00 Test Item Value Reference Range Interpretation Comments Neutrophils # (test code = Neutrophils 6.6 1.5-8.1 #) [facility] HospitalWndnkaaQDYAONXRML4486-23-45 05:43:00 Test Item Value Reference Range Interpretation Comments Lymphocytes (test code = Lymphocytes) 7.0 20.0-40.0 [facility] HospitalRyyfyptZPYUFPYQQL0306-54-88 05:43:00 Test Item Value Reference Range Interpretation Comments Monocytes (test code = Monocytes) 6.0 2.0-12.0 [facility] HospitalSewuedpWZXTJOMDRS7711-40-84 05:43:00 Test Item Value Reference Range Interpretation Comments Lymphocytes # (test code = Lymphocytes 0.6 1.0-5.5 #) [facility] HospitalMiolxcjETWXCHVWQK1602-68-03 05:43:00 Test Item Value Reference Range Interpretation Comments Monocytes # (test code 0.4 See_Comment [Aut omated message] The = Monocytes #) system which generated this result tra nsmitted reference range : <=0.8. The reference r renu was not used to int erpret this result as normal/abnormal . [facility] HospitalUuknnylBEDALFHYDX5879-15-26 05:43:00 Test Item Value Reference Range Interpretation Comments MCH (test code = MCH) 32.6 pg 27.0-31.0 [facility] HospitalBsgknbfVWBFHKWOGE2074-55-30 05:43:00 Test Item Value Reference Range Interpretation Comments MCHC (test code = MCHC) 33.9 32.0-36.0 [facility] HospitalAmodqrmQOLFOBWSJP5424-42-03 05:43:00 Test Item Value Reference Range Interpretation Comments RDW (test code = RDW) 15.3 11.5-14.5 [facility] HospitalUynommhOGDAVLUUMK4308-39-02 05:43:00 Test Item Value Reference Range Interpretation Comments Platelet (test code = Platelet) 136 133-450 [facility] HospitalLafxrbzGUZMELHQMH0222-53-85 05:43:00 Test Item Value Reference Range Interpretation Comments MPV (test code = MPV) 9.6 7.4-10.4 [facility] HospitalYxolpiwXDDJQHDNGI8645-09-27 05:43:00 Test Item Value Reference Range Interpretation Comments WBC X 10x3 (test code = WBC X 10x3) 7.6 3.7-10.4 [facility]YiumaaoDOVTXQWUIU1509-23-58 05:43:00 Test Item Value Reference Range Interpretation Comments Hct (test code = Hct) 31.0 42.0-54.0 [facility] HospitalFauhpicHECNXYVLND0446-09-28 05:43:00 Test Item Value Reference Range Interpretation Comments MCV (test code = MCV) 96.1 80.0-94.0 [facility] HospitalCuqublqAFNCHTPBRZ9184-21-64 05:43:00 Test Item Value Reference Range Interpretation Comments RBC X 10x6 (test code = RBC X 10x6) 3.22 4.70-6.10 [facility] HospitalJtrzxheOHNXZCXTVA1617-00-52 05:43:00 Test Item Value Reference Range Interpretation Comments Hgb (test code = Hgb) 10.5 14.0-18.0 [facility] CZTPK7952-12-41 05:43:00 Test Item Value Reference Range Interpretation Comments Phosphorus (test code = Phosphorus) 4.1 2.5-4.5 [facility] UPSET4490-93-82 05:43:00 Test Item Value Reference Range Interpretation Comments Magnesium Lvl (test code = Magnesium 2.8 1.8-2.4 Lvl) [facility] HospitalMionmadCJTTPUCBEA4759-67-08 05:43:00 Test Item Value Reference Range Interpretation Comments Segs (test code = Segs) 87.0 45.0-75.0 [facility] HospitalQpovmyeZMTWWDZKMJ7194-66-23 05:43:00 Test Item Value Reference Range Interpretation Comments Neutrophils # (test code = Neutrophils 6.6 1.5-8.1 #) [facility] HospitalOyeexkjOSAMSGKISL2460-94-55 05:57:00 Test Item Value Reference Range Interpretation Comments Hgb (test code = Hgb) 10.6 14.0-18.0 [facility] HospitalAqqowwyZPSQFOVUMU1685-96-74 05:57:00 Test Item Value Reference Range Interpretation Comments RBC (test code = RBC) 3.32 4.70-6.10 [facility] HospitalFnwtoylHBEFJQQSCE3588-81-38 05:57:00 Test Item Value Reference Range Interpretation Comments MCHC (test code = MCHC) 32.8 32.0-36.0 [facility] HospitalVekmjcxFZOCRKQPLW7870-58-19 05:57:00 Test Item Value Reference Range Interpretation Comments Hct (test code = Hct) 32.2 42.0-54.0 [facility] HospitalItnoqiaRPYKGPUSYH5863-52-31 05:57:00 Test Item Value Reference Range Interpretation Comments MPV (test code = MPV) 9.7 7.4-10.4 [facility] HospitalHijnszsEKLLRFIMNS2465-12-89 05:57:00 Test Item Value Reference Range Interpretation Comments WBC (test code = WBC) 10.9 3.7-10.4 [facility]2018-07-17 05:57:00 Test Item Value Reference Range Interpretation Comments Phosphorus (test code = Phosphorus) 3.6 2.5-4.5 [facility]2018-07-17 05:57:00 Test Item Value Reference Range Interpretation Comments Magnesium Lvl (test code = Magnesium 2.4 1.8-2.4 Lvl) [facility] HospitalRpldejiXIHTTHHDXW7839-81-36 05:57:00 Test Item Value Reference Range Interpretation Comments Segs (test code = Segs) 84.1 45.0-75.0 [facility] HospitalEiyyptyCVSNVSDJYG4393-66-82 05:57:00 Test Item Value Reference Range Interpretation Comments Lymphocytes # (test code = Lymphocytes 0.9 1.0-5.5 #) [facility] HospitalTcdvtetHCLWVWDVPT8356-49-77 05:57:00 Test Item Value Reference Range Interpretation Comments Basophils (test code = 0.2 See_Comment [Aut omated message] The Basophils) system which ge nerated this result tra nsmitted reference range : <=1.0. The reference r renu was not used to int erpret this result as normal/abnormal . [facility] HospitalBhejktiIFDNSWKIVX8796-60-65 05:57:00 Test Item Value Reference Range Interpretation Comments Eosinophils (test code = 0.4 See_Comment [A utomated message] The Eosinophils) system which ge nerated this result tra nsmitted reference range : <=4.0. The reference r renu was not used to int erpret this result as normal/abnormal . [facility] HospitalLkovwmyXREZZNXABJ2684-99-88 05:57:00 Test Item Value Reference Range Interpretation Comments Neutrophils # (test code = Neutrophils 9.2 1.5-8.1 #) [facility] HospitalFbbbstpOHZWBCVCPF7676-86-34 05:57:00 Test Item Value Reference Range Interpretation Comments Monocytes (test code = Monocytes) 6.7 2.0-12.0 [facility] HospitalTtfdtxsXRYPWABVIJ2803-36-59 05:57:00 Test Item Value Reference Range Interpretation Comments Lymphocytes (test code = Lymphocytes) 8.6 20.0-40.0 [facility] HospitalBozjfbjMMIZXBAWYD0415-44-86 05:57:00 Test Item Value Reference Range Interpretation Comments Monocytes # (test code 0.7 See_Comment [Aut omated message] The = Monocytes #) system which generated this result tra nsmitted reference range : <=0.8. The reference r renu was not used to int erpret this result as normal/abnormal . [facility] HospitalPxpbdfxELVJXKXPOF5420-42-92 05:57:00 Test Item Value Reference Range Interpretation Comments Platelet (test code = Platelet) 116 133-450 [facility] HospitalNhexfvjCMZAHXZCOB5161-52-27 05:57:00 Test Item Value Reference Range Interpretation Comments RDW (test code = RDW) 15.3 11.5-14.5 [facility] HospitalLqstnamBKZAUOTOUW5809-55-75 05:57:00 Test Item Value Reference Range Interpretation Comments MCV (test code = MCV) 96.8 80.0-94.0 [facility] HospitalMlbrjomTMCPYUVOJH6786-72-35 05:57:00 Test Item Value Reference Range Interpretation Comments MCH (test code = MCH) 31.8 pg 27.0-31.0 [facility] HospitalBauavjoPEPTNBHZVQ2778-87-84 05:57:00 Test Item Value Reference Range Interpretation Comments Hgb (test code = Hgb) 10.6 14.0-18.0 [facility] HospitalBsijkfnKKMCYIGPTB0572-49-75 05:57:00 Test Item Value Reference Range Interpretation Comments RBC (test code = RBC) 3.32 4.70-6.10 [facility] HospitalXsjuqeoQVKFOXDLJC9660-88-72 05:57:00 Test Item Value Reference Range Interpretation Comments MCHC (test code = MCHC) 32.8 32.0-36.0 [facility] HospitalStjustyOFJFHLQGPQ3319-98-33 05:57:00 Test Item Value Reference Range Interpretation Comments Hct (test code = Hct) 32.2 42.0-54.0 [facility] HospitalHcxeopqUYGDUTRBHR6150-87-84 05:57:00 Test Item Value Reference Range Interpretation Comments MPV (test code = MPV) 9.7 7.4-10.4 [facility] HospitalHpcseqqZTJKFQKIFF3222-77-55 05:57:00 Test Item Value Reference Range Interpretation Comments WBC (test code = WBC) 10.9 3.7-10.4 [facility]2018-07-17 05:57:00 Test Item Value Reference Range Interpretation Comments Phosphorus (test code = Phosphorus) 3.6 2.5-4.5 [facility]2018-07-17 05:57:00 Test Item Value Reference Range Interpretation Comments Magnesium Lvl (test code = Magnesium 2.4 1.8-2.4 Lvl) [facility] HospitalIyjfvcpCTSIUTLITZ6185-04-90 05:57:00 Test Item Value Reference Range Interpretation Comments Segs (test code = Segs) 84.1 45.0-75.0 [facility] HospitalPqkxjciDMGURFULGB9421-21-21 05:57:00 Test Item Value Reference Range Interpretation Comments Lymphocytes # (test code = Lymphocytes 0.9 1.0-5.5 #) [facility] HospitalYzoodjwZICSOYFWDX9122-27-33 05:57:00 Test Item Value Reference Range Interpretation Comments Basophils (test code = 0.2 See_Comment [Aut omated message] The Basophils) system which ge nerated this result tra nsmitted reference range : <=1.0. The reference r renu was not used to int erpret this result as normal/abnormal . [facility] HospitalWjsothbLMMBSCZGVA5408-08-37 05:57:00 Test Item Value Reference Range Interpretation Comments Eosinophils (test code = 0.4 See_Comment [A utomated message] The Eosinophils) system which ge nerated this result tra nsmitted reference range : <=4.0. The reference r renu was not used to int erpret this result as normal/abnormal . [facility] HospitalZyzlvthMWGVJMGLER6852-30-26 05:57:00 Test Item Value Reference Range Interpretation Comments Neutrophils # (test code = Neutrophils 9.2 1.5-8.1 #) [facility] HospitalZlunfyjBUQBJGYPHQ5325-34-72 05:57:00 Test Item Value Reference Range Interpretation Comments Monocytes (test code = Monocytes) 6.7 2.0-12.0 [facility] HospitalJdtxkomQHBIKFYTVL1988-37-47 05:57:00 Test Item Value Reference Range Interpretation Comments Lymphocytes (test code = Lymphocytes) 8.6 20.0-40.0 [place] 411608-07-17 05:57:00 Test Item Value Reference Range Interpretation Comments Monocytes # (test code 0.7 See_Comment [Aut omated message] The = Monocytes #) system which generated this result tra nsmitted reference range : <=0.8. The reference r renu was not used to int erpret this result as normal/abnormal . [facility] HospitalJfpqcblJDJQCZPTFD2030-70-87 05:57:00 Test Item Value Reference Range Interpretation Comments Platelet (test code = Platelet) 116 133-450 [facility] HospitalCepcsduPSGJZCDPPA1817-15-22 05:57:00 Test Item Value Reference Range Interpretation Comments RDW (test code = RDW) 15.3 11.5-14.5 [facility] HospitalUvxezufJUGHIGVOVF7703-16-85 05:57:00 Test Item Value Reference Range Interpretation Comments MCV (test code = MCV) 96.8 80.0-94.0 [facility] HospitalGmaymtzORIZHOZXTN4777-93-12 05:57:00 Test Item Value Reference Range Interpretation Comments MCH (test code = MCH) 31.8 pg 27.0-31.0 [facility] HospitalKfxvjpjEFBYIMBQAL3984-46-57 05:57:00 Test Item Value Reference Range Interpretation Comments Hgb (test code = Hgb) 10.6 14.0-18.0 [facility] HospitalJywderkLUBJVHOLSA6706-78-32 05:57:00 Test Item Value Reference Range Interpretation Comments RBC (test code = RBC) 3.32 4.70-6.10 [facility] HospitalYfwuqcgRHPVCQBORQ7421-84-63 05:57:00 Test Item Value Reference Range Interpretation Comments MCHC (test code = MCHC) 32.8 32.0-36.0 [facility] HospitalSpevffeKQYVKUQVJN2012-84-37 05:57:00 Test Item Value Reference Range Interpretation Comments Hct (test code = Hct) 32.2 42.0-54.0 [facility] HospitalGklmnwvPSTRXZMNKN2316-80-21 05:57:00 Test Item Value Reference Range Interpretation Comments MPV (test code = MPV) 9.7 7.4-10.4 [facility] HospitalCfahkmbIPJFGSXYGD3206-46-19 05:57:00 Test Item Value Reference Range Interpretation Comments WBC (test code = WBC) 10.9 3.7-10.4 [facility]2018-07-17 05:57:00 Test Item Value Reference Range Interpretation Comments Phosphorus (test code = Phosphorus) 3.6 2.5-4.5 [facility]2018-07-17 05:57:00 Test Item Value Reference Range Interpretation Comments Magnesium Lvl (test code = Magnesium 2.4 1.8-2.4 Lvl) [facility] HospitalGgoasouLMHRTJYQKH7446-11-16 05:57:00 Test Item Value Reference Range Interpretation Comments Segs (test code = Segs) 84.1 45.0-75.0 [facility] HospitalLssrehkDUFHDOPVAM7061-67-26 05:57:00 Test Item Value Reference Range Interpretation Comments Lymphocytes # (test code = Lymphocytes 0.9 1.0-5.5 #) [facility] HospitalTniozpyVHWUJFCRKM8822-92-99 05:57:00 Test Item Value Reference Range Interpretation Comments Basophils (test code = 0.2 See_Comment [Aut omated message] The Basophils) system which ge nerated this result tra nsmitted reference range : <=1.0. The reference r renu was not used to int erpret this result as normal/abnormal . [facility] HospitalNtkboovOIYFIPHOQA2712-48-63 05:57:00 Test Item Value Reference Range Interpretation Comments Eosinophils (test code = 0.4 See_Comment [A utomated message] The Eosinophils) system which ge nerated this result tra nsmitted reference range : <=4.0. The reference r renu was not used to int erpret this result as normal/abnormal . [facility] HospitalKauacvaIBPCZBWLHQ0653-33-94 05:57:00 Test Item Value Reference Range Interpretation Comments Neutrophils # (test code = Neutrophils 9.2 1.5-8.1 #) [facility] HospitalYntppuuXQPPMMCYOG5444-92-81 05:57:00 Test Item Value Reference Range Interpretation Comments Monocytes (test code = Monocytes) 6.7 2.0-12.0 [facility] HospitalKmecldkBXOXKNPRNK6405-18-20 05:57:00 Test Item Value Reference Range Interpretation Comments Lymphocytes (test code = Lymphocytes) 8.6 20.0-40.0 [facility] HospitalFblkludDWNEVHBQAG6486-51-51 05:57:00 Test Item Value Reference Range Interpretation Comments Monocytes # (test code 0.7 See_Comment [Aut omated message] The = Monocytes #) system which generated this result tra nsmitted reference range : <=0.8. The reference r renu was not used to int erpret this result as normal/abnormal . [facility] HospitalWuyhbizUJQZJYBJUM5619-56-54 05:57:00 Test Item Value Reference Range Interpretation Comments Platelet (test code = Platelet) 116 133-450 [facility] HospitalXcvuqehWYZEAVRAKS8043-94-64 05:57:00 Test Item Value Reference Range Interpretation Comments RDW (test code = RDW) 15.3 11.5-14.5 [facility] HospitalCvawgkpPNJZWPDYSW2945-26-67 05:57:00 Test Item Value Reference Range Interpretation Comments MCV (test code = MCV) 96.8 80.0-94.0 [facility] HospitalWuuohdnBXYIDTWBQX7666-87-42 05:57:00 Test Item Value Reference Range Interpretation Comments MCH (test code = MCH) 31.8 pg 27.0-31.0 [facility] HospitalOtxbtykHYKHSZERYE8832-82-70 05:57:00 Test Item Value Reference Range Interpretation Comments Hgb (test code = Hgb) 10.6 14.0-18.0 [facility] HospitalAokqngiPHIGIPEKQE1642-85-84 05:57:00 Test Item Value Reference Range Interpretation Comments RBC (test code = RBC) 3.32 4.70-6.10 [facility] HospitalHxvyntsGHAZNTRJIL5500-42-76 05:57:00 Test Item Value Reference Range Interpretation Comments MCHC (test code = MCHC) 32.8 32.0-36.0 [facility] HospitalDmzzekqHHLROJSDCA7927-58-08 05:57:00 Test Item Value Reference Range Interpretation Comments Hct (test code = Hct) 32.2 42.0-54.0 [facility] HospitalYtnhfrcGHTKTCLLVA9825-54-51 05:57:00 Test Item Value Reference Range Interpretation Comments MPV (test code = MPV) 9.7 7.4-10.4 [facility]JssngmaWGEATDPLEH6742-25-10 05:57:00 Test Item Value Reference Range Interpretation Comments WBC (test code = WBC) 10.9 3.7-10.4 [facility] GCCFD9424-88-25 05:57:00 Test Item Value Reference Range Interpretation Comments Phosphorus (test code = Phosphorus) 3.6 2.5-4.5 [facility] VZMFP6183-79-41 05:57:00 Test Item Value Reference Range Interpretation Comments Magnesium Lvl (test code = Magnesium 2.4 1.8-2.4 Lvl) [facility] HospitalStfmlflCVCMYKYEXU0669-60-48 05:57:00 Test Item Value Reference Range Interpretation Comments Segs (test code = Segs) 84.1 45.0-75.0 [facility] HospitalYevxosmIVUDYMHRFT6910-97-77 05:57:00 Test Item Value Reference Range Interpretation Comments Lymphocytes # (test code = Lymphocytes 0.9 1.0-5.5 #) [facility] HospitalPbjvtthBRKHQCJFCH0250-04-11 05:57:00 Test Item Value Reference Range Interpretation Comments Basophils (test code = 0.2 See_Comment [Aut omated message] The Basophils) system which ge nerated this result tra nsmitted reference range : <=1.0. The reference r renu was not used to int erpret this result as normal/abnormal . [facility] HospitalTdnadrtZUKLZHRWIH9720-98-01 05:57:00 Test Item Value Reference Range Interpretation Comments Eosinophils (test code = 0.4 See_Comment [A utomated message] The Eosinophils) system which ge nerated this result tra nsmitted reference range : <=4.0. The reference r renu was not used to int erpret this result as normal/abnormal . [facility] HospitalYpblqdnIGGZLNZIDO8163-40-93 05:57:00 Test Item Value Reference Range Interpretation Comments Neutrophils # (test code = Neutrophils 9.2 1.5-8.1 #) [facility] HospitalQkqxpheURGJCRWXNC7573-54-16 05:57:00 Test Item Value Reference Range Interpretation Comments Monocytes (test code = Monocytes) 6.7 2.0-12.0 [facility] HospitalZajpqqbEWUHNUDVSZ6546-61-34 05:57:00 Test Item Value Reference Range Interpretation Comments Lymphocytes (test code = Lymphocytes) 8.6 20.0-40.0 [facility] HospitalDrthgjbXIMVWWYWFF5153-52-86 05:57:00 Test Item Value Reference Range Interpretation Comments Monocytes # (test code 0.7 See_Comment [Aut omated message] The = Monocytes #) system which generated this result tra nsmitted reference range : <=0.8. The reference r renu was not used to int erpret this result as normal/abnormal . [facility] HospitalWphnhkwEOQMVVYBXH2666-99-96 05:57:00 Test Item Value Reference Range Interpretation Comments Platelet (test code = Platelet) 116 133-450 [facility] HospitalBtjtswoXLTKFLGXIO7744-58-53 05:57:00 Test Item Value Reference Range Interpretation Comments RDW (test code = RDW) 15.3 11.5-14.5 [facility] HospitalEziwozhNWSAWDEGLJ0911-72-39 05:57:00 Test Item Value Reference Range Interpretation Comments MCV (test code = MCV) 96.8 80.0-94.0 [facility] HospitalTlhvcbeVTDYVVLWMX2809-26-54 05:57:00 Test Item Value Reference Range Interpretation Comments MCH (test code = MCH) 31.8 pg 27.0-31.0 [facility] HospitalFodasryAPJCLQUFWD2804-47-69 05:57:00 Test Item Value Reference Range Interpretation Comments Hgb (test code = Hgb) 10.6 14.0-18.0 [facility] HospitalRxjzjhyIAUSSBKMAH3120-52-36 05:57:00 Test Item Value Reference Range Interpretation Comments RBC (test code = RBC) 3.32 4.70-6.10 [facility] HospitalVtwcfuiLPPPYEAQIX8585-28-07 05:57:00 Test Item Value Reference Range Interpretation Comments MCHC (test code = MCHC) 32.8 32.0-36.0 [facility] HospitalKjaxovhMUDJJPDZSW2089-55-27 05:57:00 Test Item Value Reference Range Interpretation Comments Hct (test code = Hct) 32.2 42.0-54.0 [facility] HospitalKqqzdykZPZRQSRIRF4760-90-85 05:57:00 Test Item Value Reference Range Interpretation Comments MPV (test code = MPV) 9.7 7.4-10.4 [facility] HospitalZdexmyyYTSSHEQJST5020-14-91 05:57:00 Test Item Value Reference Range Interpretation Comments WBC (test code = WBC) 10.9 3.7-10.4 [facility]2018-07-17 05:57:00 Test Item Value Reference Range Interpretation Comments Phosphorus (test code = Phosphorus) 3.6 2.5-4.5 [facility] XFVYP4765-77-75 05:57:00 Test Item Value Reference Range Interpretation Comments Magnesium Lvl (test code = Magnesium 2.4 1.8-2.4 Lvl) [facility] HospitalWhhvcatZOYENDNNIN7159-13-87 05:57:00 Test Item Value Reference Range Interpretation Comments Segs (test code = Segs) 84.1 45.0-75.0 [facility] HospitalWmvszzlPQQAHGPJXS8826-80-97 05:57:00 Test Item Value Reference Range Interpretation Comments Lymphocytes # (test code = Lymphocytes 0.9 1.0-5.5 #) [facility] HospitalFsibvhoDLMAXWHNNY5236-42-92 05:57:00 Test Item Value Reference Range Interpretation Comments Basophils (test code = 0.2 See_Comment [Aut omated message] The Basophils) system which ge nerated this result tra nsmitted reference range : <=1.0. The reference r renu was not used to int erpret this result as normal/abnormal . [facility] HospitalWxyebikDOBXLKGBWB0740-76-07 05:57:00 Test Item Value Reference Range Interpretation Comments Eosinophils (test code = 0.4 See_Comment [A utomated message] The Eosinophils) system which ge nerated this result tra nsmitted reference range : <=4.0. The reference r renu was not used to int erpret this result as normal/abnormal . [facility] HospitalJblpoanCHOCXGWXLI1807-07-11 05:57:00 Test Item Value Reference Range Interpretation Comments Neutrophils # (test code = Neutrophils 9.2 1.5-8.1 #) [facility] HospitalQhyfykiDWWKDUKBFX5464-40-22 05:57:00 Test Item Value Reference Range Interpretation Comments Monocytes (test code = Monocytes) 6.7 2.0-12.0 [facility] HospitalOdmxrtpWELEOMZXJR8741-95-01 05:57:00 Test Item Value Reference Range Interpretation Comments Lymphocytes (test code = Lymphocytes) 8.6 20.0-40.0 [facility] HospitalRsrjdlyLOVYHTATKV0481-64-57 05:57:00 Test Item Value Reference Range Interpretation Comments Monocytes # (test code 0.7 See_Comment [Aut omated message] The = Monocytes #) system which generated this result tra nsmitted reference range : <=0.8. The reference r renu was not used to int erpret this result as normal/abnormal . [facility] HospitalAdodsgaSMPTNQFLXA8116-20-47 05:57:00 Test Item Value Reference Range Interpretation Comments Platelet (test code = Platelet) 116 133-450 [facility] HospitalWlwcxzoTQMLCTVMWY4388-80-81 05:57:00 Test Item Value Reference Range Interpretation Comments RDW (test code = RDW) 15.3 11.5-14.5 [facility] HospitalPtljyqfCHPLJVUGJM0287-34-62 05:57:00 Test Item Value Reference Range Interpretation Comments MCV (test code = MCV) 96.8 80.0-94.0 [facility] HospitalJfogtyoZQZAUDBCGM2951-33-38 05:57:00 Test Item Value Reference Range Interpretation Comments MCH (test code = MCH) 31.8 pg 27.0-31.0 [facility] HospitalKluqnliGTONLGPJRK7877-02-96 05:57:00 Test Item Value Reference Range Interpretation Comments Hgb (test code = Hgb) 10.6 14.0-18.0 [facility] HospitalGscutcxOHEPVGEFVK5594-26-32 05:57:00 Test Item Value Reference Range Interpretation Comments RBC (test code = RBC) 3.32 4.70-6.10 [facility] HospitalDgaujuwHCORBNHRGV8837-04-63 05:57:00 Test Item Value Reference Range Interpretation Comments MCHC (test code = MCHC) 32.8 32.0-36.0 [facility] HospitalQilaqhaVCGLYEOKHE9417-33-95 05:57:00 Test Item Value Reference Range Interpretation Comments Hct (test code = Hct) 32.2 42.0-54.0 [facility] HospitalIxyfbncVBPBEXVKUD4735-33-11 05:57:00 Test Item Value Reference Range Interpretation Comments MPV (test code = MPV) 9.7 7.4-10.4 [facility] HospitalCwltlvaYLLKPAICKN9976-12-42 05:57:00 Test Item Value Reference Range Interpretation Comments WBC (test code = WBC) 10.9 3.7-10.4 [facility] ZVQLO9491-47-21 05:57:00 Test Item Value Reference Range Interpretation Comments Phosphorus (test code = Phosphorus) 3.6 2.5-4.5 [facility] WNIVV9601-03-50 05:57:00 Test Item Value Reference Range Interpretation Comments Magnesium Lvl (test code = Magnesium 2.4 1.8-2.4 Lvl) [facility] HospitalYubcnykABZFTJUJEK3755-55-07 05:57:00 Test Item Value Reference Range Interpretation Comments Segs (test code = Segs) 84.1 45.0-75.0 [facility] HospitalRjvjmaaUPIYNHWRGQ2611-00-36 05:57:00 Test Item Value Reference Range Interpretation Comments Lymphocytes # (test code = Lymphocytes 0.9 1.0-5.5 #) [facility] HospitalPozpythKRYYXCHKAO9237-85-37 05:57:00 Test Item Value Reference Range Interpretation Comments Basophils (test code = 0.2 See_Comment [Aut omated message] The Basophils) system which ge nerated this result tra nsmitted reference range : <=1.0. The reference r renu was not used to int erpret this result as normal/abnormal . [facility] HospitalLhmidjkXXUZUGPLOR6639-64-93 05:57:00 Test Item Value Reference Range Interpretation Comments Eosinophils (test code = 0.4 See_Comment [A utomated message] The Eosinophils) system which ge nerated this result tra nsmitted reference range : <=4.0. The reference r renu was not used to int erpret this result as normal/abnormal . [facility] HospitalGpxoprwNCCJKGUNXG8717-31-80 05:57:00 Test Item Value Reference Range Interpretation Comments Neutrophils # (test code = Neutrophils 9.2 1.5-8.1 #) [facility] HospitalUrpwwfqHPKFQHVIFS0538-42-91 05:57:00 Test Item Value Reference Range Interpretation Comments Monocytes (test code = Monocytes) 6.7 2.0-12.0 [facility] HospitalDxbbpqnLXAFHGYQUH9745-43-28 05:57:00 Test Item Value Reference Range Interpretation Comments Lymphocytes (test code = Lymphocytes) 8.6 20.0-40.0 [facility] HospitalBbgxpzoTXENJFLPOU3206-14-96 05:57:00 Test Item Value Reference Range Interpretation Comments Monocytes # (test code 0.7 See_Comment [Aut omated message] The = Monocytes #) system which generated this result tra nsmitted reference range : <=0.8. The reference r renu was not used to int erpret this result as normal/abnormal . [facility] HospitalUexvvqiSITPRZITDL2940-57-62 05:57:00 Test Item Value Reference Range Interpretation Comments Platelet (test code = Platelet) 116 133-450 [facility] HospitalMustskqINEVRBUMWQ5708-80-90 05:57:00 Test Item Value Reference Range Interpretation Comments RDW (test code = RDW) 15.3 11.5-14.5 [facility] HospitalRkptrsdUILMMRZZVW7145-05-04 05:57:00 Test Item Value Reference Range Interpretation Comments MCV (test code = MCV) 96.8 80.0-94.0 [facility] HospitalKpwswloNHFMMGURGZ9839-79-69 05:57:00 Test Item Value Reference Range Interpretation Comments MCH (test code = MCH) 31.8 pg 27.0-31.0 [facility] HospitalAdvnbtiURNIAVLNMG7360-60-49 05:57:00 Test Item Value Reference Range Interpretation Comments Hgb (test code = Hgb) 10.6 14.0-18.0 [facility] HospitalSjjyoysCITUKBICKS7753-07-46 05:57:00 Test Item Value Reference Range Interpretation Comments RBC (test code = RBC) 3.32 4.70-6.10 [facility] HospitalXhpyuxvBUEFMQPHXO8590-16-12 05:57:00 Test Item Value Reference Range Interpretation Comments MCHC (test code = MCHC) 32.8 32.0-36.0 [facility] HospitalMnyjnozXRUWFERELN6886-39-10 05:57:00 Test Item Value Reference Range Interpretation Comments Hct (test code = Hct) 32.2 42.0-54.0 [facility] HospitalXhqmlijYANFHJNTLK0581-46-64 05:57:00 Test Item Value Reference Range Interpretation Comments MPV (test code = MPV) 9.7 7.4-10.4 [facility] HospitalNrrobsaEZMBKKQDRO5392-13-40 05:57:00 Test Item Value Reference Range Interpretation Comments WBC (test code = WBC) 10.9 3.7-10.4 [facility]2018-07-17 05:57:00 Test Item Value Reference Range Interpretation Comments Phosphorus (test code = Phosphorus) 3.6 2.5-4.5 [facility] OOWMY4175-33-61 05:57:00 Test Item Value Reference Range Interpretation Comments Magnesium Lvl (test code = Magnesium 2.4 1.8-2.4 Lvl) [facility] HospitalZbovojaIQSJNGUENA2408-45-92 05:57:00 Test Item Value Reference Range Interpretation Comments Segs (test code = Segs) 84.1 45.0-75.0 [facility] HospitalLwkspmbSDFRGOMEJL5527-57-79 05:57:00 Test Item Value Reference Range Interpretation Comments Lymphocytes # (test code = Lymphocytes 0.9 1.0-5.5 #) [facility] HospitalNzvrufxLPHRXSWBUM4094-61-93 05:57:00 Test Item Value Reference Range Interpretation Comments Basophils (test code = 0.2 See_Comment [Aut omated message] The Basophils) system which ge nerated this result tra nsmitted reference range : <=1.0. The reference r renu was not used to int erpret this result as normal/abnormal . [facility] HospitalJgtkydmDJCACZPMQD4721-48-96 05:57:00 Test Item Value Reference Range Interpretation Comments Eosinophils (test code = 0.4 See_Comment [A utomated message] The Eosinophils) system which ge nerated this result tra nsmitted reference range : <=4.0. The reference r renu was not used to int erpret this result as normal/abnormal . [facility] HospitalAldhcprZAWOSANJSW4599-20-26 05:57:00 Test Item Value Reference Range Interpretation Comments Neutrophils # (test code = Neutrophils 9.2 1.5-8.1 #) [facility] HospitalAshfuwzWXBMJNKELZ0436-78-14 05:57:00 Test Item Value Reference Range Interpretation Comments Monocytes (test code = Monocytes) 6.7 2.0-12.0 [facility] HospitalIldfbkpRDPXAHKWAS6758-76-59 05:57:00 Test Item Value Reference Range Interpretation Comments Lymphocytes (test code = Lymphocytes) 8.6 20.0-40.0 [facility]FhtiybzSXKOZGPTYF1903-08-36 05:57:00 Test Item Value Reference Range Interpretation Comments Monocytes # (test code 0.7 See_Comment [Aut omated message] The = Monocytes #) system which generated this result tra nsmitted reference range : <=0.8. The reference r renu was not used to int erpret this result as normal/abnormal . [facility] HospitalZgohryyKKSUTBSNKZ1258-09-49 05:57:00 Test Item Value Reference Range Interpretation Comments Platelet (test code = Platelet) 116 133-450 [facility] HospitalXzturmrCZBXBZUUFB8184-53-06 05:57:00 Test Item Value Reference Range Interpretation Comments RDW (test code = RDW) 15.3 11.5-14.5 [facility] HospitalAkaxplkZLBWJVHNMK2388-99-64 05:57:00 Test Item Value Reference Range Interpretation Comments MCV (test code = MCV) 96.8 80.0-94.0 [facility] HospitalAcyfvstNGDCKMKGTK2901-11-39 05:57:00 Test Item Value Reference Range Interpretation Comments MCH (test code = MCH) 31.8 pg 27.0-31.0 [facility] HospitalPsywlqvWMDBBUYSFP5352-74-19 05:57:00 Test Item Value Reference Range Interpretation Comments Hgb (test code = Hgb) 10.6 14.0-18.0 [facility] HospitalTiqvokfTRJNQWORDO2358-24-82 05:57:00 Test Item Value Reference Range Interpretation Comments RBC (test code = RBC) 3.32 4.70-6.10 [facility] HospitalMhxbigfPOAUILMLVH2403-55-16 05:57:00 Test Item Value Reference Range Interpretation Comments MCHC (test code = MCHC) 32.8 32.0-36.0 [facility] HospitalGeegcgeEMRXMEGTUW9542-36-92 05:57:00 Test Item Value Reference Range Interpretation Comments Hct (test code = Hct) 32.2 42.0-54.0 [facility] HospitalBosmfeaWXVJWWKIAZ8455-70-33 05:57:00 Test Item Value Reference Range Interpretation Comments MPV (test code = MPV) 9.7 7.4-10.4 [facility] HospitalLrsuzgkYEMFZAQGXC8147-97-76 05:57:00 Test Item Value Reference Range Interpretation Comments WBC (test code = WBC) 10.9 3.7-10.4 [facility]2018-07-17 05:57:00 Test Item Value Reference Range Interpretation Comments Phosphorus (test code = Phosphorus) 3.6 2.5-4.5 [facility]2018-07-17 05:57:00 Test Item Value Reference Range Interpretation Comments Magnesium Lvl (test code = Magnesium 2.4 1.8-2.4 Lvl) [facility] HospitalYlqufqbQXBTATGCTY5863-15-71 05:57:00 Test Item Value Reference Range Interpretation Comments Segs (test code = Segs) 84.1 45.0-75.0 [facility] HospitalYexloaaCLCFTAPINO2089-76-87 05:57:00 Test Item Value Reference Range Interpretation Comments Lymphocytes # (test code = Lymphocytes 0.9 1.0-5.5 #) [facility] HospitalTunjikmPOLVIUQVZU9877-92-26 05:57:00 Test Item Value Reference Range Interpretation Comments Basophils (test code = 0.2 See_Comment [Aut omated message] The Basophils) system which ge nerated this result tra nsmitted reference range : <=1.0. The reference r renu was not used to int erpret this result as normal/abnormal . [facility] HospitalOhxlbumBRROXHEZFK5188-18-14 05:57:00 Test Item Value Reference Range Interpretation Comments Eosinophils (test code = 0.4 See_Comment [A utomated message] The Eosinophils) system which ge nerated this result tra nsmitted reference range : <=4.0. The reference r renu was not used to int erpret this result as normal/abnormal . [place]608-07-17 05:57:00 Test Item Value Reference Range Interpretation Comments Neutrophils # (test code = Neutrophils 9.2 1.5-8.1 #) [facility] HospitalBwbfuoxUYCPZRYZXP6932-06-21 05:57:00 Test Item Value Reference Range Interpretation Comments Monocytes (test code = Monocytes) 6.7 2.0-12.0 [facility] HospitalRcbjyskBNJXNZACON3337-76-77 05:57:00 Test Item Value Reference Range Interpretation Comments Lymphocytes (test code = Lymphocytes) 8.6 20.0-40.0 [facility] HospitalFnbfagnVVJYARWDTR2965-07-41 05:57:00 Test Item Value Reference Range Interpretation Comments Monocytes # (test code 0.7 See_Comment [Aut omated message] The = Monocytes #) system which generated this result tra nsmitted reference range : <=0.8. The reference r renu was not used to int erpret this result as normal/abnormal . [place]608-07-17 05:57:00 Test Item Value Reference Range Interpretation Comments Platelet (test code = Platelet) 116 133-450 [facility] HospitalLbvskfhGTQHEAOZCZ6756-73-36 05:57:00 Test Item Value Reference Range Interpretation Comments RDW (test code = RDW) 15.3 11.5-14.5 [facility] HospitalZmmzbovFKPLMGCIGU3440-73-62 05:57:00 Test Item Value Reference Range Interpretation Comments MCV (test code = MCV) 96.8 80.0-94.0 [facility] HospitalMjtwjcuGQOVOWNKRV1858-09-91 05:57:00 Test Item Value Reference Range Interpretation Comments MCH (test code = MCH) 31.8 pg 27.0-31.0 [facility] HospitalLovtrbsGHKRAVQLXB7955-03-70 05:57:00 Test Item Value Reference Range Interpretation Comments Hgb (test code = Hgb) 10.6 14.0-18.0 [facility] HospitalZfutdliHYZVQVRTIZ1641-19-34 05:57:00 Test Item Value Reference Range Interpretation Comments RBC (test code = RBC) 3.32 4.70-6.10 [facility] HospitalOckyfsfPDUBBBNQCN8874-53-33 05:57:00 Test Item Value Reference Range Interpretation Comments MCHC (test code = MCHC) 32.8 32.0-36.0 [facility] HospitalMzbwoypYNWEDSDAWQ3494-83-70 05:57:00 Test Item Value Reference Range Interpretation Comments Hct (test code = Hct) 32.2 42.0-54.0 [facility] HospitalClnmkwmAMQBJICVRZ5266-16-75 05:57:00 Test Item Value Reference Range Interpretation Comments MPV (test code = MPV) 9.7 7.4-10.4 [facility] HospitalQjlsmmcCWAIKNVISK7286-01-71 05:57:00 Test Item Value Reference Range Interpretation Comments WBC (test code = WBC) 10.9 3.7-10.4 [facility]2018-07-17 05:57:00 Test Item Value Reference Range Interpretation Comments Phosphorus (test code = Phosphorus) 3.6 2.5-4.5 [facility] NZLPF8820-44-21 05:57:00 Test Item Value Reference Range Interpretation Comments Magnesium Lvl (test code = Magnesium 2.4 1.8-2.4 Lvl) [facility] HospitalAobtmouZDZAWGBNRW9943-52-98 05:57:00 Test Item Value Reference Range Interpretation Comments Segs (test code = Segs) 84.1 45.0-75.0 [facility] HospitalPmobspsUSJTXGYBVY6803-99-98 05:57:00 Test Item Value Reference Range Interpretation Comments Lymphocytes # (test code = Lymphocytes 0.9 1.0-5.5 #) [facility] HospitalWmpbjppZKTGKIXDQP8212-29-87 05:57:00 Test Item Value Reference Range Interpretation Comments Basophils (test code = 0.2 See_Comment [Aut omated message] The Basophils) system which ge nerated this result tra nsmitted reference range : <=1.0. The reference r renu was not used to int erpret this result as normal/abnormal . [facility] HospitalEejgingOHQZWKTBRM9225-14-98 05:57:00 Test Item Value Reference Range Interpretation Comments Eosinophils (test code = 0.4 See_Comment [A utomated message] The Eosinophils) system which ge nerated this result tra nsmitted reference range : <=4.0. The reference r renu was not used to int erpret this result as normal/abnormal . [facility] HospitalShmruhmNWGESDEAJG3473-88-03 05:57:00 Test Item Value Reference Range Interpretation Comments Neutrophils # (test code = Neutrophils 9.2 1.5-8.1 #) [facility] HospitalKeynlclONOPHUXDYY2320-09-30 05:57:00 Test Item Value Reference Range Interpretation Comments Monocytes (test code = Monocytes) 6.7 2.0-12.0 [facility] HospitalBqoagluJIVCUHSXJI8359-53-46 05:57:00 Test Item Value Reference Range Interpretation Comments Lymphocytes (test code = Lymphocytes) 8.6 20.0-40.0 [facility] HospitalYafzrjkWPHRMHILLL3984-05-77 05:57:00 Test Item Value Reference Range Interpretation Comments Monocytes # (test code 0.7 See_Comment [Aut omated message] The = Monocytes #) system which generated this result tra nsmitted reference range : <=0.8. The reference r renu was not used to int erpret this result as normal/abnormal . [facility] HospitalCdupifjLGSKUJFWHX3414-84-50 05:57:00 Test Item Value Reference Range Interpretation Comments Platelet (test code = Platelet) 116 133-450 [facility] HospitalVlanoenVXUXGJKMEN0571-22-05 05:57:00 Test Item Value Reference Range Interpretation Comments RDW (test code = RDW) 15.3 11.5-14.5 [facility] HospitalUggnwqyKOSRNOEZIA6681-92-70 05:57:00 Test Item Value Reference Range Interpretation Comments MCV (test code = MCV) 96.8 80.0-94.0 [facility] HospitalHuagcbiUNGAQEIDCA2592-03-89 05:57:00 Test Item Value Reference Range Interpretation Comments MCH (test code = MCH) 31.8 pg 27.0-31.0 [facility] HospitalKisxrisGHCABPGSBJ9689-76-07 05:57:00 Test Item Value Reference Range Interpretation Comments Hgb (test code = Hgb) 10.6 14.0-18.0 [facility] HospitalDlifvcnAYWICUJMAF0745-71-53 05:57:00 Test Item Value Reference Range Interpretation Comments RBC (test code = RBC) 3.32 4.70-6.10 [facility] HospitalNrijeiiISGTZOPXZC0592-17-88 05:57:00 Test Item Value Reference Range Interpretation Comments MCHC (test code = MCHC) 32.8 32.0-36.0 [facility] HospitalOkshanyBIWJZNWRRZ7273-20-42 05:57:00 Test Item Value Reference Range Interpretation Comments Hct (test code = Hct) 32.2 42.0-54.0 [facility] HospitalNkgukqmAMVIEMHZCX9265-46-47 05:57:00 Test Item Value Reference Range Interpretation Comments MPV (test code = MPV) 9.7 7.4-10.4 [facility] HospitalDqfzyvkSKWGUCNTGX3265-10-08 05:57:00 Test Item Value Reference Range Interpretation Comments WBC (test code = WBC) 10.9 3.7-10.4 [facility]2018-07-17 05:57:00 Test Item Value Reference Range Interpretation Comments Phosphorus (test code = Phosphorus) 3.6 2.5-4.5 [facility]2018-07-17 05:57:00 Test Item Value Reference Range Interpretation Comments Magnesium Lvl (test code = Magnesium 2.4 1.8-2.4 Lvl) [facility] HospitalNzlzzgkYDLWFGDWIL3847-74-76 05:57:00 Test Item Value Reference Range Interpretation Comments Segs (test code = Segs) 84.1 45.0-75.0 [facility] HospitalCskinwePFFCWWUSUO4196-11-61 05:57:00 Test Item Value Reference Range Interpretation Comments Lymphocytes # (test code = Lymphocytes 0.9 1.0-5.5 #) [facility] HospitalWbzrlhqMYGZSVOOON2304-19-66 05:57:00 Test Item Value Reference Range Interpretation Comments Basophils (test code = 0.2 See_Comment [Aut omated message] The Basophils) system which ge nerated this result tra nsmitted reference range : <=1.0. The reference r renu was not used to int erpret this result as normal/abnormal . [facility] HospitalPbcnhwfHEKMCZRKCE4240-99-31 05:57:00 Test Item Value Reference Range Interpretation Comments Eosinophils (test code = 0.4 See_Comment [A utomated message] The Eosinophils) system which ge nerated this result tra nsmitted reference range : <=4.0. The reference r renu was not used to int erpret this result as normal/abnormal . [facility] HospitalItmjlqhAPEWOTPXNU3615-53-98 05:57:00 Test Item Value Reference Range Interpretation Comments Neutrophils # (test code = Neutrophils 9.2 1.5-8.1 #) [facility] HospitalSezgoppJITVAFGZOY4331-49-91 05:57:00 Test Item Value Reference Range Interpretation Comments Monocytes (test code = Monocytes) 6.7 2.0-12.0 [facility] HospitalYxxsnetDOHTSVFXOR3697-49-52 05:57:00 Test Item Value Reference Range Interpretation Comments Lymphocytes (test code = Lymphocytes) 8.6 20.0-40.0 [facility] HospitalOqpnczcFGBVDKQDUZ0925-37-69 05:57:00 Test Item Value Reference Range Interpretation Comments Monocytes # (test code 0.7 See_Comment [Aut omated message] The = Monocytes #) system which generated this result tra nsmitted reference range : <=0.8. The reference r renu was not used to int erpret this result as normal/abnormal . [facility] HospitalPlpcjqvXKBYJEIJAL1593-69-12 05:57:00 Test Item Value Reference Range Interpretation Comments Platelet (test code = Platelet) 116 133-450 [facility] HospitalWqgizxiVNHUYTTCCI6591-99-84 05:57:00 Test Item Value Reference Range Interpretation Comments RDW (test code = RDW) 15.3 11.5-14.5 [facility] HospitalSoxenxvFROIAIGPDA1925-22-59 05:57:00 Test Item Value Reference Range Interpretation Comments MCV (test code = MCV) 96.8 80.0-94.0 [facility] HospitalJhsrlweRCCZXHXLBB4273-21-34 05:57:00 Test Item Value Reference Range Interpretation Comments MCH (test code = MCH) 31.8 pg 27.0-31.0 [facility] CUTCG5465-55-90 05:57:00 Test Item Value Reference Range Interpretation Comments Phosphorus (test code = Phosphorus) 3.6 2.5-4.5 [facility] HLSQA5481-30-80 05:57:00 Test Item Value Reference Range Interpretation Comments Magnesium Lvl (test code = Magnesium 2.4 1.8-2.4 Lvl) [facility] HospitalQxhmlisLOMIYNJNIO3311-46-38 05:57:00 Test Item Value Reference Range Interpretation Comments Segs (test code = Segs) 84.1 45.0-75.0 [facility] HospitalAlsdhvzOQEDXLXHVC1045-03-95 05:57:00 Test Item Value Reference Range Interpretation Comments Lymphocytes # (test code = Lymphocytes 0.9 1.0-5.5 #) [facility] HospitalLgyqmhiSBERJEUWXQ5808-07-90 05:57:00 Test Item Value Reference Range Interpretation Comments Basophils (test code = 0.2 See_Comment [Aut omated message] The Basophils) system which ge nerated this result tra nsmitted reference range : <=1.0. The reference r renu was not used to int erpret this result as normal/abnormal . [facility] HospitalTvssjajOGMQKKCTCE7646-26-19 05:57:00 Test Item Value Reference Range Interpretation Comments Eosinophils (test code = 0.4 See_Comment [A utomated message] The Eosinophils) system which ge nerated this result tra nsmitted reference range : <=4.0. The reference r renu was not used to int erpret this result as normal/abnormal . [facility] HospitalRaaebjkRQKPGJUBMA8873-47-71 05:57:00 Test Item Value Reference Range Interpretation Comments Neutrophils # (test code = Neutrophils 9.2 1.5-8.1 #) [facility] HospitalLasngmvOEYDCHJMKE8405-85-40 05:57:00 Test Item Value Reference Range Interpretation Comments Monocytes (test code = Monocytes) 6.7 2.0-12.0 [facility] HospitalCqeujzaSFQNOGYJUD5405-95-82 05:57:00 Test Item Value Reference Range Interpretation Comments Lymphocytes (test code = Lymphocytes) 8.6 20.0-40.0 [facility] HospitalUrloeunPIYITQIXUT2180-34-33 05:57:00 Test Item Value Reference Range Interpretation Comments Monocytes # (test code 0.7 See_Comment [Aut omated message] The = Monocytes #) system which generated this result tra nsmitted reference range : <=0.8. The reference r renu was not used to int erpret this result as normal/abnormal . [facility] HospitalYmqakycUGFLAGMHBK9411-08-99 05:57:00 Test Item Value Reference Range Interpretation Comments Platelet (test code = Platelet) 116 133-450 [facility] HospitalMuejnedYOFIHIIHDJ8829-91-50 05:57:00 Test Item Value Reference Range Interpretation Comments RDW (test code = RDW) 15.3 11.5-14.5 [facility] HospitalLybzdrhCPVHRCATSE4940-61-20 05:57:00 Test Item Value Reference Range Interpretation Comments MCV (test code = MCV) 96.8 80.0-94.0 [facility] HospitalQpdodyrIAQMIZZWTB9021-75-01 05:57:00 Test Item Value Reference Range Interpretation Comments MCH (test code = MCH) 31.8 pg 27.0-31.0 [facility] HospitalPgfgszhKURLLORNFY6561-39-41 05:57:00 Test Item Value Reference Range Interpretation Comments Hgb (test code = Hgb) 10.6 14.0-18.0 [facility] HospitalQlrrbdfSQAOPSDBRW7175-60-94 05:57:00 Test Item Value Reference Range Interpretation Comments RBC (test code = RBC) 3.32 4.70-6.10 [facility] HospitalVepqysoNBDZOPYGYI2851-34-93 05:57:00 Test Item Value Reference Range Interpretation Comments MCHC (test code = MCHC) 32.8 32.0-36.0 [facility] HospitalFuyybreRTFNKDYEXY7644-40-96 05:57:00 Test Item Value Reference Range Interpretation Comments Hct (test code = Hct) 32.2 42.0-54.0 [facility] HospitalZvnnpaqGKCPMJFXYM7056-56-07 05:57:00 Test Item Value Reference Range Interpretation Comments MPV (test code = MPV) 9.7 7.4-10.4 [facility] HospitalQgkpyqqYSXGKQYADP7859-17-26 05:57:00 Test Item Value Reference Range Interpretation Comments WBC (test code = WBC) 10.9 3.7-10.4 [place] 32533018-07-16 12:36:00 Test Item Value Reference Range Interpretation Comments Tacrolimus Lvl (test code = Tacrolimus 4.3 5.0-15.0 Lvl) [facility]ZQLOZXTF4720[facility] 12:36:00 Test Item Value Reference Range Interpretation Comments Tacrolimus Lvl (test code = Tacrolimus 4.3 5.0-15.0 Lvl) [facility]IimtwuuDBIUIEXAIR6243-08-25 12:36:00 Test Item Value Reference Range Interpretation Comments Tacrolimus Lvl (test code = Tacrolimus 4.3 5.0-15.0 Lvl) [facility] CenterRvmumbeOLVWDNMPJN9219-62-97 12:36:00 Test Item Value Reference Range Interpretation Comments Tacrolimus Lvl (test code = Tacrolimus 4.3 5.0-15.0 Lvl) [facility] CenterWxbiqtiAMQENLBRNI2056-79-19 12:36:00 Test Item Value Reference Range Interpretation Comments Tacrolimus Lvl (test code = Tacrolimus 4.3 5.0-15.0 Lvl) [facility] CenterQoddgrnHXKZWUYOOO6094-01-03 12:36:00 Test Item Value Reference Range Interpretation Comments Tacrolimus Lvl (test code = Tacrolimus 4.3 5.0-15.0 Lvl) [facility] CenterJuevzpaWENMWJHMMW4570-42-29 12:36:00 Test Item Value Reference Range Interpretation Comments Tacrolimus Lvl (test code = Tacrolimus 4.3 5.0-15.0 Lvl) [place] 32533018-07-16 12:36:00 Test Item Value Reference Range Interpretation Comments Tacrolimus Lvl (test code = Tacrolimus 4.3 5.0-15.0 Lvl) [place] 32533018-07-16 12:36:00 Test Item Value Reference Range Interpretation Comments Tacrolimus Lvl (test code = Tacrolimus 4.3 5.0-15.0 Lvl) [place] 32533018-07-16 12:36:00 Test Item Value Reference Range Interpretation Comments Tacrolimus Lvl (test code = Tacrolimus 4.3 5.0-15.0 Lvl) [place] 32533018-07-16 12:36:00 Test Item Value Reference Range Interpretation Comments Tacrolimus Lvl (test code = Tacrolimus 4.3 5.0-15.0 Lvl) [facility] HospitalEzciujoWIZKERKXMZ1830-47-26 05:53:00 Test Item Value Reference Range Interpretation Comments Lymphocytes (test code = Lymphocytes) 7.8 20.0-40.0 [facility] HospitalRdlpjwvIJLXTMMRJF2836-72-96 05:53:00 Test Item Value Reference Range Interpretation Comments Monocytes (test code = Monocytes) 7.6 2.0-12.0 [facility] HospitalYwrfxgtIPEDXHXINW3569-02-25 05:53:00 Test Item Value Reference Range Interpretation Comments Eosinophils (test code = 0.6 See_Comment [A utomated message] The Eosinophils) system which ge nerated this result tra nsmitted reference range : <=4.0. The reference r renu was not used to int erpret this result as normal/abnormal . [facility] HospitalAnpofroSRODUBZHZV2400-87-11 05:53:00 Test Item Value Reference Range Interpretation Comments Neutrophils # (test code = Neutrophils 9.1 1.5-8.1 #) [facility] HospitalIqszqduTSGJQTHXUQ1841-44-50 05:53:00 Test Item Value Reference Range Interpretation Comments Basophils (test code = 0.2 See_Comment [Aut omated message] The Basophils) system which ge nerated this result tra nsmitted reference range : <=1.0. The reference r renu was not used to int erpret this result as normal/abnormal . [facility] HospitalVykdienJQIGWOZQKU9222-62-84 05:53:00 Test Item Value Reference Range Interpretation Comments Lymphocytes # (test code = Lymphocytes 0.8 1.0-5.5 #) [facility] HospitalAymdcigNMNHBKFQEO7098-53-87 05:53:00 Test Item Value Reference Range Interpretation Comments Monocytes # (test code 0.8 See_Comment [Aut omated message] The = Monocytes #) system which generated this result tra nsmitted reference range : <=0.8. The reference r renu was not used to int erpret this result as normal/abnormal . [facility] HospitalLtggnrpLVQBTKYEJF6044-93-27 05:53:00 Test Item Value Reference Range Interpretation Comments Eosinophils # (test code 0.1 See_Comment [A utomated message] The = Eosinophils #) system whic h generated this result tra nsmitted reference range : <=0.5. The reference r renu was not used to int erpret this result as normal/abnormal . [facility] HospitalRohyfhyESDNAHGXKZ6196-47-78 05:53:00 Test Item Value Reference Range Interpretation Comments Segs (test code = Segs) 83.8 45.0-75.0 [facility] HospitalJqxeqyvFGRTRLILXZ3951-29-29 05:53:00 Test Item Value Reference Range Interpretation Comments RBC (test code = RBC) 3.33 4.70-6.10 [facility] HospitalHizbkpoIGYVFPITZH8067-21-25 05:53:00 Test Item Value Reference Range Interpretation Comments WBC (test code = WBC) 10.8 3.7-10.4 [facility] HospitalOapelcaCTSPOMXGLZ6241-16-52 05:53:00 Test Item Value Reference Range Interpretation Comments RDW (test code = RDW) 15.2 11.5-14.5 [facility] HospitalBtdvsslQMQLYSGNBX9335-43-69 05:53:00 Test Item Value Reference Range Interpretation Comments Platelet (test code = Platelet) 118 133-450 [facility] HospitalPdtwrjoSCSGRTPZOW3419-59-45 05:53:00 Test Item Value Reference Range Interpretation Comments MPV (test code = MPV) 9.6 7.4-10.4 [facility] HospitalHilvxwbDVBDJSNJHQ2101-47-12 05:53:00 Test Item Value Reference Range Interpretation Comments MCHC (test code = MCHC) 33.5 32.0-36.0 [facility] HospitalBpwgtytFVRICDQLEO7623-44-62 05:53:00 Test Item Value Reference Range Interpretation Comments MCH (test code = MCH) 32.3 pg 27.0-31.0 [facility] HospitalDuwyrenSNDZUBEOBE9069-65-87 05:53:00 Test Item Value Reference Range Interpretation Comments Hct (test code = Hct) 32.1 42.0-54.0 [facility] HospitalViwlkuwIBEYXZUSGK7038-10-70 05:53:00 Test Item Value Reference Range Interpretation Comments MCV (test code = MCV) 96.2 80.0-94.0 [facility] HospitalZmzspqoTEUWRQGAYF6284-30-40 05:53:00 Test Item Value Reference Range Interpretation Comments Hgb (test code = Hgb) 10.8 14.0-18.0 [facility] HospitalXlmkgcrSCDCEMNYJA1742-31-03 05:53:00 Test Item Value Reference Range Interpretation Comments Lymphocytes (test code = Lymphocytes) 7.8 20.0-40.0 [facility] HospitalLlcpalxOIWVADGUKJ6558-86-02 05:53:00 Test Item Value Reference Range Interpretation Comments Monocytes (test code = Monocytes) 7.6 2.0-12.0 [facility] HospitalPiuyfjnVLJZNHUUZB5254-33-40 05:53:00 Test Item Value Reference Range Interpretation Comments Eosinophils (test code = 0.6 See_Comment [A utomated message] The Eosinophils) system which ge nerated this result tra nsmitted reference range : <=4.0. The reference r renu was not used to int erpret this result as normal/abnormal . [facility] HospitalAxdsvdgSTFXRNICNC3231-81-30 05:53:00 Test Item Value Reference Range Interpretation Comments Neutrophils # (test code = Neutrophils 9.1 1.5-8.1 #) [facility] HospitalKmktjtzQUGPERCIXB9157-71-14 05:53:00 Test Item Value Reference Range Interpretation Comments Basophils (test code = 0.2 See_Comment [Aut omated message] The Basophils) system which ge nerated this result tra nsmitted reference range : <=1.0. The reference r renu was not used to int erpret this result as normal/abnormal . [facility] HospitalLkaovhsXANOFQYLBU5781-24-40 05:53:00 Test Item Value Reference Range Interpretation Comments Lymphocytes # (test code = Lymphocytes 0.8 1.0-5.5 #) [facility] HospitalGouhesaPYMWIQVJMF7677-73-95 05:53:00 Test Item Value Reference Range Interpretation Comments Monocytes # (test code 0.8 See_Comment [Aut omated message] The = Monocytes #) system which generated this result tra nsmitted reference range : <=0.8. The reference r renu was not used to int erpret this result as normal/abnormal . [facility] HospitalIhohuktVDBLGIBOKH0823-93-56 05:53:00 Test Item Value Reference Range Interpretation Comments Eosinophils # (test code 0.1 See_Comment [A utomated message] The = Eosinophils #) system whic h generated this result tra nsmitted reference range : <=0.5. The reference r renu was not used to int erpret this result as normal/abnormal . [facility] HospitalMwmelccVSEKIEAMMW7953-35-03 05:53:00 Test Item Value Reference Range Interpretation Comments Segs (test code = Segs) 83.8 45.0-75.0 [facility] HospitalMaarbtyGHLEAYVUWX8880-54-94 05:53:00 Test Item Value Reference Range Interpretation Comments RBC (test code = RBC) 3.33 4.70-6.10 [facility] HospitalHhfupgbJVMFKTMDNK9101-11-72 05:53:00 Test Item Value Reference Range Interpretation Comments WBC (test code = WBC) 10.8 3.7-10.4 [facility] HospitalPusxnmfAMBQVOUQDR3912-95-09 05:53:00 Test Item Value Reference Range Interpretation Comments RDW (test code = RDW) 15.2 11.5-14.5 [facility] HospitalRqpdycsGHJTKIEGQZ6213-77-13 05:53:00 Test Item Value Reference Range Interpretation Comments Platelet (test code = Platelet) 118 133-450 [facility] HospitalVyxneusFJIIIBXORQ9901-18-58 05:53:00 Test Item Value Reference Range Interpretation Comments MPV (test code = MPV) 9.6 7.4-10.4 [facility] HospitalMejizgqTRIIISBBOY8934-83-06 05:53:00 Test Item Value Reference Range Interpretation Comments MCHC (test code = MCHC) 33.5 32.0-36.0 [facility] HospitalJyizyzwWBPRYAFVBF2893-64-39 05:53:00 Test Item Value Reference Range Interpretation Comments MCH (test code = MCH) 32.3 pg 27.0-31.0 [facility] HospitalQcrlvacHNSSQQURZZ3445-62-80 05:53:00 Test Item Value Reference Range Interpretation Comments Hct (test code = Hct) 32.1 42.0-54.0 [facility] HospitalReqxkpmJBAGBGSTDI3230-19-18 05:53:00 Test Item Value Reference Range Interpretation Comments MCV (test code = MCV) 96.2 80.0-94.0 [facility] HospitalEvfxazeLAMDJOYKXH6983-33-92 05:53:00 Test Item Value Reference Range Interpretation Comments Hgb (test code = Hgb) 10.8 14.0-18.0 [facility] HospitalYdhwqblOUZMJXTLEL5074-06-22 05:53:00 Test Item Value Reference Range Interpretation Comments Lymphocytes (test code = Lymphocytes) 7.8 20.0-40.0 [facility] HospitalNmomfdrHAHWBVKWME8233-17-05 05:53:00 Test Item Value Reference Range Interpretation Comments Monocytes (test code = Monocytes) 7.6 2.0-12.0 [facility] HospitalYhufahkENROSRHOYE3849-19-69 05:53:00 Test Item Value Reference Range Interpretation Comments Eosinophils (test code = 0.6 See_Comment [A utomated message] The Eosinophils) system which ge nerated this result tra nsmitted reference range : <=4.0. The reference r renu was not used to int erpret this result as normal/abnormal . [facility] HospitalSyilvauPPJHIJXCFO8224-00-78 05:53:00 Test Item Value Reference Range Interpretation Comments Neutrophils # (test code = Neutrophils 9.1 1.5-8.1 #) [facility] HospitalHatkomePGDFAUCVRL1080-21-78 05:53:00 Test Item Value Reference Range Interpretation Comments Basophils (test code = 0.2 See_Comment [Aut omated message] The Basophils) system which ge nerated this result tra nsmitted reference range : <=1.0. The reference r renu was not used to int erpret this result as normal/abnormal . [facility] HospitalKocqlqcMUIHBIJHER8052-12-43 05:53:00 Test Item Value Reference Range Interpretation Comments Lymphocytes # (test code = Lymphocytes 0.8 1.0-5.5 #) [facility] HospitalJmtvxyfKVECKYEVZN1157-52-80 05:53:00 Test Item Value Reference Range Interpretation Comments Monocytes # (test code 0.8 See_Comment [Aut omated message] The = Monocytes #) system which generated this result tra nsmitted reference range : <=0.8. The reference r renu was not used to int erpret this result as normal/abnormal . [facility] HospitalDwaodzvCJQZKZUSBB0386-36-94 05:53:00 Test Item Value Reference Range Interpretation Comments Eosinophils # (test code 0.1 See_Comment [A utomated message] The = Eosinophils #) system whic h generated this result tra nsmitted reference range : <=0.5. The reference r renu was not used to int erpret this result as normal/abnormal . [facility] HospitalHxurwakNYQOBBOOTC8548-69-08 05:53:00 Test Item Value Reference Range Interpretation Comments Segs (test code = Segs) 83.8 45.0-75.0 [facility] HospitalDxswxcmVPHWZPLUTV4392-97-66 05:53:00 Test Item Value Reference Range Interpretation Comments RBC (test code = RBC) 3.33 4.70-6.10 [facility] HospitalWesxzkyWFMZKPONWX2290-27-00 05:53:00 Test Item Value Reference Range Interpretation Comments WBC (test code = WBC) 10.8 3.7-10.4 [facility] HospitalOmfaxwyYBFETFFEUC1312-72-64 05:53:00 Test Item Value Reference Range Interpretation Comments RDW (test code = RDW) 15.2 11.5-14.5 [facility] HospitalRbjveduHOQDEGDUSO9525-64-07 05:53:00 Test Item Value Reference Range Interpretation Comments Platelet (test code = Platelet) 118 133-450 [facility] HospitalTmqhuehIDMWUDEJKD0284-16-48 05:53:00 Test Item Value Reference Range Interpretation Comments MPV (test code = MPV) 9.6 7.4-10.4 [facility] HospitalYqhqjqfCYOVOFRPAO2020-22-75 05:53:00 Test Item Value Reference Range Interpretation Comments MCHC (test code = MCHC) 33.5 32.0-36.0 [facility] HospitalPrqpwjkFFAPPUHTHT3261-74-57 05:53:00 Test Item Value Reference Range Interpretation Comments MCH (test code = MCH) 32.3 pg 27.0-31.0 [facility] HospitalNwkuekdXEJZDTRURM2037-18-57 05:53:00 Test Item Value Reference Range Interpretation Comments Hct (test code = Hct) 32.1 42.0-54.0 [facility] HospitalUpaohbbAGDECEDVKK4804-26-54 05:53:00 Test Item Value Reference Range Interpretation Comments MCV (test code = MCV) 96.2 80.0-94.0 [facility] HospitalFccgtwvFXJMLHTKRQ0207-72-12 05:53:00 Test Item Value Reference Range Interpretation Comments Hgb (test code = Hgb) 10.8 14.0-18.0 [facility] HospitalKewkdkhVXDISBRLVE0096-16-23 05:53:00 Test Item Value Reference Range Interpretation Comments Lymphocytes (test code = Lymphocytes) 7.8 20.0-40.0 [facility] HospitalUvlidfsWCFDPLUOIP4622-48-65 05:53:00 Test Item Value Reference Range Interpretation Comments Monocytes (test code = Monocytes) 7.6 2.0-12.0 [facility] HospitalXvqmftqYPIUEKKANS2960-23-45 05:53:00 Test Item Value Reference Range Interpretation Comments Eosinophils (test code = 0.6 See_Comment [A utomated message] The Eosinophils) system which ge nerated this result tra nsmitted reference range : <=4.0. The reference r renu was not used to int erpret this result as normal/abnormal . [facility] HospitalHmghznjUDQKMKXNQN6833-91-43 05:53:00 Test Item Value Reference Range Interpretation Comments Neutrophils # (test code = Neutrophils 9.1 1.5-8.1 #) [facility] HospitalVfgthbzLFSGGLNROG2956-73-28 05:53:00 Test Item Value Reference Range Interpretation Comments Basophils (test code = 0.2 See_Comment [Aut omated message] The Basophils) system which ge nerated this result tra nsmitted reference range : <=1.0. The reference r renu was not used to int erpret this result as normal/abnormal . [facility] HospitalGosvajbKAQTZGRTXC1664-69-67 05:53:00 Test Item Value Reference Range Interpretation Comments Lymphocytes # (test code = Lymphocytes 0.8 1.0-5.5 #) [facility] HospitalCogqnhuFBLGGKBJZH7302-02-02 05:53:00 Test Item Value Reference Range Interpretation Comments Monocytes # (test code 0.8 See_Comment [Aut omated message] The = Monocytes #) system which generated this result tra nsmitted reference range : <=0.8. The reference r renu was not used to int erpret this result as normal/abnormal . [facility] HospitalDnwnckuVSIMOPKLLB0562-89-44 05:53:00 Test Item Value Reference Range Interpretation Comments Eosinophils # (test code 0.1 See_Comment [A utomated message] The = Eosinophils #) system whic h generated this result tra nsmitted reference range : <=0.5. The reference r renu was not used to int erpret this result as normal/abnormal . [facility] HospitalLuliukhDTGGLKEXSC3013-33-54 05:53:00 Test Item Value Reference Range Interpretation Comments Segs (test code = Segs) 83.8 45.0-75.0 [facility] HospitalQogkbqjSVZQMMDLGK0369-61-73 05:53:00 Test Item Value Reference Range Interpretation Comments RBC (test code = RBC) 3.33 4.70-6.10 [facility] HospitalNjrxvmaSJBEWHMPZI3472-51-90 05:53:00 Test Item Value Reference Range Interpretation Comments WBC (test code = WBC) 10.8 3.7-10.4 [facility] HospitalQoumerqMDBHVIUTTX7784-85-65 05:53:00 Test Item Value Reference Range Interpretation Comments RDW (test code = RDW) 15.2 11.5-14.5 [facility] HospitalWjzbmmoXCJRXMMHLB4190-56-54 05:53:00 Test Item Value Reference Range Interpretation Comments Platelet (test code = Platelet) 118 133-450 [facility] HospitalPdvqgahCZXZQGGZRF5146-26-07 05:53:00 Test Item Value Reference Range Interpretation Comments MPV (test code = MPV) 9.6 7.4-10.4 [facility] HospitalYnbfodsMLBXSRNUFX0028-12-75 05:53:00 Test Item Value Reference Range Interpretation Comments MCHC (test code = MCHC) 33.5 32.0-36.0 [facility] HospitalEifvgdeLPRLRAESPB8855-81-24 05:53:00 Test Item Value Reference Range Interpretation Comments MCH (test code = MCH) 32.3 pg 27.0-31.0 [facility] HospitalJpigcmaMOBZZLQGBE9390-83-86 05:53:00 Test Item Value Reference Range Interpretation Comments Hct (test code = Hct) 32.1 42.0-54.0 [facility] HospitalItcddouPWTQJGEUYV8368-76-84 05:53:00 Test Item Value Reference Range Interpretation Comments MCV (test code = MCV) 96.2 80.0-94.0 [facility] HospitalOfaxzlyPNILVYPHYF0425-14-78 05:53:00 Test Item Value Reference Range Interpretation Comments Hgb (test code = Hgb) 10.8 14.0-18.0 [facility] HospitalPydroajVICZESXMUN3379-99-38 05:53:00 Test Item Value Reference Range Interpretation Comments Lymphocytes (test code = Lymphocytes) 7.8 20.0-40.0 [facility] HospitalUaxrwknPMUORYHNHF1229-98-63 05:53:00 Test Item Value Reference Range Interpretation Comments Monocytes (test code = Monocytes) 7.6 2.0-12.0 [facility] HospitalVfnpkriCNHUUECCBP3901-21-15 05:53:00 Test Item Value Reference Range Interpretation Comments Eosinophils (test code = 0.6 See_Comment [A utomated message] The Eosinophils) system which ge nerated this result tra nsmitted reference range : <=4.0. The reference r renu was not used to int erpret this result as normal/abnormal . [facility] HospitalUzrvsadXTBGEHMZVZ1147-29-66 05:53:00 Test Item Value Reference Range Interpretation Comments Neutrophils # (test code = Neutrophils 9.1 1.5-8.1 #) [facility] HospitalHihanltUHISUAKNBD7019-52-04 05:53:00 Test Item Value Reference Range Interpretation Comments Basophils (test code = 0.2 See_Comment [Aut omated message] The Basophils) system which ge nerated this result tra nsmitted reference range : <=1.0. The reference r renu was not used to int erpret this result as normal/abnormal . [facility] HospitalCbzcubzSXQFWDKHZY5098-26-77 05:53:00 Test Item Value Reference Range Interpretation Comments Lymphocytes # (test code = Lymphocytes 0.8 1.0-5.5 #) [facility] HospitalRrqigcvPBBXJZPNMH3688-35-08 05:53:00 Test Item Value Reference Range Interpretation Comments Monocytes # (test code 0.8 See_Comment [Aut omated message] The = Monocytes #) system which generated this result tra nsmitted reference range : <=0.8. The reference r renu was not used to int erpret this result as normal/abnormal . [facility] HospitalGgsyipvCMKHNRQLIR5333-54-38 05:53:00 Test Item Value Reference Range Interpretation Comments Eosinophils # (test code 0.1 See_Comment [A utomated message] The = Eosinophils #) system whic h generated this result tra nsmitted reference range : <=0.5. The reference r renu was not used to int erpret this result as normal/abnormal . [facility] HospitalJrumaruXTGVXSLUFC1532-23-47 05:53:00 Test Item Value Reference Range Interpretation Comments Segs (test code = Segs) 83.8 45.0-75.0 [facility] HospitalCbubldvWDXPEJDXCM3384-75-90 05:53:00 Test Item Value Reference Range Interpretation Comments RBC (test code = RBC) 3.33 4.70-6.10 [facility] HospitalTwxrykdUNARNGEHUG7500-68-56 05:53:00 Test Item Value Reference Range Interpretation Comments WBC (test code = WBC) 10.8 3.7-10.4 [facility] HospitalSgaaynjESWIFKNWJU0344-48-42 05:53:00 Test Item Value Reference Range Interpretation Comments RDW (test code = RDW) 15.2 11.5-14.5 [facility] HospitalFptqsntJBDDXBGKVL5950-14-46 05:53:00 Test Item Value Reference Range Interpretation Comments Platelet (test code = Platelet) 118 133-450 [facility] HospitalMyyftjkMUQQXSOQJC6043-04-88 05:53:00 Test Item Value Reference Range Interpretation Comments MPV (test code = MPV) 9.6 7.4-10.4 [facility] HospitalOggxqqeSIUBBTNGQW0797-36-56 05:53:00 Test Item Value Reference Range Interpretation Comments MCHC (test code = MCHC) 33.5 32.0-36.0 [facility] HospitalBetxwmrPSOXANHIUU2725-21-30 05:53:00 Test Item Value Reference Range Interpretation Comments MCH (test code = MCH) 32.3 pg 27.0-31.0 [facility] HospitalXuklonmLQEJKKBCOF1442-65-08 05:53:00 Test Item Value Reference Range Interpretation Comments Hct (test code = Hct) 32.1 42.0-54.0 [facility] HospitalHddwwxlIICBIEOMYZ8460-92-20 05:53:00 Test Item Value Reference Range Interpretation Comments MCV (test code = MCV) 96.2 80.0-94.0 [facility] HospitalQywsnqvJEYHCOUGGS7850-89-45 05:53:00 Test Item Value Reference Range Interpretation Comments Hgb (test code = Hgb) 10.8 14.0-18.0 [facility] HospitalCwnnbuwVGSYZFIOWN5394-02-89 05:53:00 Test Item Value Reference Range Interpretation Comments Lymphocytes (test code = Lymphocytes) 7.8 20.0-40.0 [facility] HospitalKqphcpwNXAIXUBCQH6608-24-17 05:53:00 Test Item Value Reference Range Interpretation Comments Monocytes (test code = Monocytes) 7.6 2.0-12.0 [facility] HospitalNlnerbbLIBSLLTTOW2985-23-86 05:53:00 Test Item Value Reference Range Interpretation Comments Eosinophils (test code = 0.6 See_Comment [A utomated message] The Eosinophils) system which ge nerated this result tra nsmitted reference range : <=4.0. The reference r renu was not used to int erpret this result as normal/abnormal . [facility] HospitalFbztrvcNWWIZLRQNK8761-91-65 05:53:00 Test Item Value Reference Range Interpretation Comments Neutrophils # (test code = Neutrophils 9.1 1.5-8.1 #) [facility] HospitalZgcxlvzBLPLXCVNLX7656-54-00 05:53:00 Test Item Value Reference Range Interpretation Comments Basophils (test code = 0.2 See_Comment [Aut omated message] The Basophils) system which ge nerated this result tra nsmitted reference range : <=1.0. The reference r renu was not used to int erpret this result as normal/abnormal . [facility] HospitalQagfgshLTAWEPKLBR6417-12-23 05:53:00 Test Item Value Reference Range Interpretation Comments Lymphocytes # (test code = Lymphocytes 0.8 1.0-5.5 #) [facility] HospitalTjnimqlYYJDYWYMTN5383-46-69 05:53:00 Test Item Value Reference Range Interpretation Comments Monocytes # (test code 0.8 See_Comment [Aut omated message] The = Monocytes #) system which generated this result tra nsmitted reference range : <=0.8. The reference r renu was not used to int erpret this result as normal/abnormal . [facility] HospitalCtbkycfFBCIHHMCVM5009-53-30 05:53:00 Test Item Value Reference Range Interpretation Comments Eosinophils # (test code 0.1 See_Comment [A utomated message] The = Eosinophils #) system whic h generated this result tra nsmitted reference range : <=0.5. The reference r renu was not used to int erpret this result as normal/abnormal . [facility] HospitalGskgqkxOUEGWSIONY4359-19-53 05:53:00 Test Item Value Reference Range Interpretation Comments Segs (test code = Segs) 83.8 45.0-75.0 [facility] HospitalEtcbrqaBPIBXDQUUG0269-81-04 05:53:00 Test Item Value Reference Range Interpretation Comments RBC (test code = RBC) 3.33 4.70-6.10 [facility] HospitalSzeqbisEDTOFEZCRJ6832-34-59 05:53:00 Test Item Value Reference Range Interpretation Comments WBC (test code = WBC) 10.8 3.7-10.4 [facility] HospitalJupkgxzHIXMRKJLVR9230-79-99 05:53:00 Test Item Value Reference Range Interpretation Comments RDW (test code = RDW) 15.2 11.5-14.5 [facility] HospitalRwmfjrtOZQFFJJTNX4593-98-40 05:53:00 Test Item Value Reference Range Interpretation Comments Platelet (test code = Platelet) 118 133-450 [facility] HospitalMwzpsamZRKVOLJKCD5175-05-47 05:53:00 Test Item Value Reference Range Interpretation Comments MPV (test code = MPV) 9.6 7.4-10.4 [facility] HospitalGdehpzrOVHFBBMQME2914-67-96 05:53:00 Test Item Value Reference Range Interpretation Comments MCHC (test code = MCHC) 33.5 32.0-36.0 [facility] HospitalJrucmyyXRGIKXUAPH6320-32-25 05:53:00 Test Item Value Reference Range Interpretation Comments MCH (test code = MCH) 32.3 pg 27.0-31.0 [facility] HospitalJgvsvnrTQITSDTQLM2527-93-00 05:53:00 Test Item Value Reference Range Interpretation Comments Hct (test code = Hct) 32.1 42.0-54.0 [facility] HospitalOvkacsjKMLSNHSFSL6083-89-71 05:53:00 Test Item Value Reference Range Interpretation Comments MCV (test code = MCV) 96.2 80.0-94.0 [facility] HospitalSxupefcUHDQMQKECA0689-89-63 05:53:00 Test Item Value Reference Range Interpretation Comments Hgb (test code = Hgb) 10.8 14.0-18.0 [facility] HospitalZlvyjynYBXJRHHZNP5970-95-56 05:53:00 Test Item Value Reference Range Interpretation Comments Lymphocytes (test code = Lymphocytes) 7.8 20.0-40.0 [facility] HospitalUjsxfvvYPBPTFRWEP1411-19-41 05:53:00 Test Item Value Reference Range Interpretation Comments Monocytes (test code = Monocytes) 7.6 2.0-12.0 [facility] HospitalOcegtyzIFGSMZVXEZ2485-54-46 05:53:00 Test Item Value Reference Range Interpretation Comments Eosinophils (test code = 0.6 See_Comment [A utomated message] The Eosinophils) system which ge nerated this result tra nsmitted reference range : <=4.0. The reference r renu was not used to int erpret this result as normal/abnormal . [facility] HospitalRstflyxDVLHEELRBI0534-82-17 05:53:00 Test Item Value Reference Range Interpretation Comments Neutrophils # (test code = Neutrophils 9.1 1.5-8.1 #) [facility] HospitalEbsdbhfDGSHWDJALI9385-46-63 05:53:00 Test Item Value Reference Range Interpretation Comments Basophils (test code = 0.2 See_Comment [Aut omated message] The Basophils) system which ge nerated this result tra nsmitted reference range : <=1.0. The reference r renu was not used to int erpret this result as normal/abnormal . [facility] HospitalBwhpnnjXMKNQVAROH1429-84-75 05:53:00 Test Item Value Reference Range Interpretation Comments Lymphocytes # (test code = Lymphocytes 0.8 1.0-5.5 #) [facility] HospitalXhamiifXCBQXGFFBC2820-60-94 05:53:00 Test Item Value Reference Range Interpretation Comments Monocytes # (test code 0.8 See_Comment [Aut omated message] The = Monocytes #) system which generated this result tra nsmitted reference range : <=0.8. The reference r renu was not used to int erpret this result as normal/abnormal . [facility] HospitalYgxtlrkHCOJIFVJWQ3205-24-03 05:53:00 Test Item Value Reference Range Interpretation Comments Eosinophils # (test code 0.1 See_Comment [A utomated message] The = Eosinophils #) system whic h generated this result tra nsmitted reference range : <=0.5. The reference r renu was not used to int erpret this result as normal/abnormal . [facility] HospitalEyooqxsLVOAWLLLWJ4783-36-13 05:53:00 Test Item Value Reference Range Interpretation Comments Segs (test code = Segs) 83.8 45.0-75.0 [facility] HospitalNqfnwpsQQUUUAJLOQ5299-95-53 05:53:00 Test Item Value Reference Range Interpretation Comments RBC (test code = RBC) 3.33 4.70-6.10 [facility] HospitalSxrldkyJBCWSRFRND1951-90-39 05:53:00 Test Item Value Reference Range Interpretation Comments WBC (test code = WBC) 10.8 3.7-10.4 [facility] HospitalPriddvqHZWGHLCQXY4428-86-85 05:53:00 Test Item Value Reference Range Interpretation Comments RDW (test code = RDW) 15.2 11.5-14.5 [facility] HospitalChckzaiPYYURWALNE0709-28-71 05:53:00 Test Item Value Reference Range Interpretation Comments Platelet (test code = Platelet) 118 133-450 [place] 411608-07-16 05:53:00 Test Item Value Reference Range Interpretation Comments MPV (test code = MPV) 9.6 7.4-10.4 [facility] HospitalXdylwamRWDRRUMIFA0435-07-10 05:53:00 Test Item Value Reference Range Interpretation Comments MCHC (test code = MCHC) 33.5 32.0-36.0 [facility] HospitalQcktvamUQGMVEMLWH6894-07-47 05:53:00 Test Item Value Reference Range Interpretation Comments MCH (test code = MCH) 32.3 pg 27.0-31.0 [facility] HospitalPrbddfjKCYZDRUHMB5896-75-46 05:53:00 Test Item Value Reference Range Interpretation Comments Hct (test code = Hct) 32.1 42.0-54.0 [facility] HospitalYivuicwMCHNDUXSBM9203-29-71 05:53:00 Test Item Value Reference Range Interpretation Comments MCV (test code = MCV) 96.2 80.0-94.0 [facility] HospitalCbxdppsURQBMVXYTG6282-92-41 05:53:00 Test Item Value Reference Range Interpretation Comments Hgb (test code = Hgb) 10.8 14.0-18.0 [facility] HospitalUuvifwjYCISMAPZPY3288-36-95 05:53:00 Test Item Value Reference Range Interpretation Comments Lymphocytes (test code = Lymphocytes) 7.8 20.0-40.0 [facility] HospitalLzjponaSGCVQISDHM9886-18-69 05:53:00 Test Item Value Reference Range Interpretation Comments Monocytes (test code = Monocytes) 7.6 2.0-12.0 [facility] HospitalBgbazdhMREYULHXMA7389-43-14 05:53:00 Test Item Value Reference Range Interpretation Comments Eosinophils (test code = 0.6 See_Comment [A utomated message] The Eosinophils) system which ge nerated this result tra nsmitted reference range : <=4.0. The reference r renu was not used to int erpret this result as normal/abnormal . [facility] HospitalLoxssriRFJEVTRRNC2061-06-85 05:53:00 Test Item Value Reference Range Interpretation Comments Neutrophils # (test code = Neutrophils 9.1 1.5-8.1 #) [facility] HospitalFuwjscjOUVVZGUGJT6850-57-39 05:53:00 Test Item Value Reference Range Interpretation Comments Basophils (test code = 0.2 See_Comment [Aut omated message] The Basophils) system which ge nerated this result tra nsmitted reference range : <=1.0. The reference r renu was not used to int erpret this result as normal/abnormal . [facility] HospitalGsqypczZXQCTHJRHM0968-04-77 05:53:00 Test Item Value Reference Range Interpretation Comments Lymphocytes # (test code = Lymphocytes 0.8 1.0-5.5 #) [facility] HospitalYtnoojyGYUDUSKGDF8687-00-52 05:53:00 Test Item Value Reference Range Interpretation Comments Monocytes # (test code 0.8 See_Comment [Aut omated message] The = Monocytes #) system which generated this result tra nsmitted reference range : <=0.8. The reference r renu was not used to int erpret this result as normal/abnormal . [facility] HospitalAtobiexUCWMSWANHL3158-87-19 05:53:00 Test Item Value Reference Range Interpretation Comments Eosinophils # (test code 0.1 See_Comment [A utomated message] The = Eosinophils #) system whic h generated this result tra nsmitted reference range : <=0.5. The reference r renu was not used to int erpret this result as normal/abnormal . [facility] HospitalQzjwhuiIXGTFXLZRA0660-60-53 05:53:00 Test Item Value Reference Range Interpretation Comments Segs (test code = Segs) 83.8 45.0-75.0 [facility] HospitalUzmnictIXLKEZVXXY2108-98-70 05:53:00 Test Item Value Reference Range Interpretation Comments RBC (test code = RBC) 3.33 4.70-6.10 [facility] HospitalHaxvbauNFAJMWRFEX6714-93-06 05:53:00 Test Item Value Reference Range Interpretation Comments WBC (test code = WBC) 10.8 3.7-10.4 [facility] HospitalBmztlchSTCVHPGZUN7767-33-68 05:53:00 Test Item Value Reference Range Interpretation Comments RDW (test code = RDW) 15.2 11.5-14.5 [facility] HospitalRfmwdnvOUNHUEYFAN5141-05-54 05:53:00 Test Item Value Reference Range Interpretation Comments Platelet (test code = Platelet) 118 133-450 [facility] HospitalRrwwcwiRWGJAAXOIU9490-04-85 05:53:00 Test Item Value Reference Range Interpretation Comments MPV (test code = MPV) 9.6 7.4-10.4 [facility] HospitalEzrfbpyQEQYAFUGVG5832-37-18 05:53:00 Test Item Value Reference Range Interpretation Comments MCHC (test code = MCHC) 33.5 32.0-36.0 [facility] HospitalFqanvkqORLQRYJKXV2124-85-02 05:53:00 Test Item Value Reference Range Interpretation Comments MCH (test code = MCH) 32.3 pg 27.0-31.0 [facility] HospitalKybdjskQHZJAVGERE5630-20-59 05:53:00 Test Item Value Reference Range Interpretation Comments Hct (test code = Hct) 32.1 42.0-54.0 [facility]VyaojciVXGWPCTMJC1650-76-97 05:53:00 Test Item Value Reference Range Interpretation Comments MCV (test code = MCV) 96.2 80.0-94.0 [facility] HospitalArswjmtPKYYNVKJDG6536-67-50 05:53:00 Test Item Value Reference Range Interpretation Comments Hgb (test code = Hgb) 10.8 14.0-18.0 [facility] HospitalCdjteezDEOUUTKQWD6937-15-56 05:53:00 Test Item Value Reference Range Interpretation Comments Lymphocytes (test code = Lymphocytes) 7.8 20.0-40.0 [facility] HospitalCxbmdgkIMNJRZWHQE9746-07-07 05:53:00 Test Item Value Reference Range Interpretation Comments Monocytes (test code = Monocytes) 7.6 2.0-12.0 [facility] HospitalGgectzpALLFHNFYNK9059-43-17 05:53:00 Test Item Value Reference Range Interpretation Comments Eosinophils (test code = 0.6 See_Comment [A utomated message] The Eosinophils) system which ge nerated this result tra nsmitted reference range : <=4.0. The reference r renu was not used to int erpret this result as normal/abnormal . [facility] HospitalWevtckxYZIFJMYSEB7982-61-54 05:53:00 Test Item Value Reference Range Interpretation Comments Neutrophils # (test code = Neutrophils 9.1 1.5-8.1 #) [facility] HospitalMguzbtbYXGHQCMDYY0936-40-58 05:53:00 Test Item Value Reference Range Interpretation Comments Basophils (test code = 0.2 See_Comment [Aut omated message] The Basophils) system which ge nerated this result tra nsmitted reference range : <=1.0. The reference r renu was not used to int erpret this result as normal/abnormal . [facility] HospitalSsezdiqLEAHCPPAQS3958-56-35 05:53:00 Test Item Value Reference Range Interpretation Comments Lymphocytes # (test code = Lymphocytes 0.8 1.0-5.5 #) [facility] HospitalKhouwrtOEHERVGWDU1129-59-86 05:53:00 Test Item Value Reference Range Interpretation Comments Monocytes # (test code 0.8 See_Comment [Aut omated message] The = Monocytes #) system which generated this result tra nsmitted reference range : <=0.8. The reference r renu was not used to int erpret this result as normal/abnormal . [facility] HospitalIiphjshQLWCCRYMLS4701-29-33 05:53:00 Test Item Value Reference Range Interpretation Comments Eosinophils # (test code 0.1 See_Comment [A utomated message] The = Eosinophils #) system whic h generated this result tra nsmitted reference range : <=0.5. The reference r renu was not used to int erpret this result as normal/abnormal . [facility] HospitalSjrjrltLBNAJMFKPJ9864-28-22 05:53:00 Test Item Value Reference Range Interpretation Comments Segs (test code = Segs) 83.8 45.0-75.0 [facility] HospitalDuqjrubPUGXXJZHIW7963-99-08 05:53:00 Test Item Value Reference Range Interpretation Comments RBC (test code = RBC) 3.33 4.70-6.10 [facility] HospitalYggmgerIGIZNSADKQ5059-85-37 05:53:00 Test Item Value Reference Range Interpretation Comments WBC (test code = WBC) 10.8 3.7-10.4 [facility] HospitalPqtnaofUFSNFQPPAC5549-60-30 05:53:00 Test Item Value Reference Range Interpretation Comments RDW (test code = RDW) 15.2 11.5-14.5 [facility] HospitalNkjxvcgEYYPHRCGGK0137-88-09 05:53:00 Test Item Value Reference Range Interpretation Comments Platelet (test code = Platelet) 118 133-450 [facility] HospitalBsvlhafZXULPTBUTK2803-00-52 05:53:00 Test Item Value Reference Range Interpretation Comments MPV (test code = MPV) 9.6 7.4-10.4 [facility] HospitalZnmxvzqZJMGGSXWCL5001-97-92 05:53:00 Test Item Value Reference Range Interpretation Comments MCHC (test code = MCHC) 33.5 32.0-36.0 [facility] HospitalNvbjrchCGETZDBGTV2763-25-21 05:53:00 Test Item Value Reference Range Interpretation Comments MCH (test code = MCH) 32.3 pg 27.0-31.0 [facility] HospitalCtczakkAXNZHOUPHX1448-81-74 05:53:00 Test Item Value Reference Range Interpretation Comments Hct (test code = Hct) 32.1 42.0-54.0 [facility] HospitalShfzjxcNRRTDRVIKH9638-85-83 05:53:00 Test Item Value Reference Range Interpretation Comments MCV (test code = MCV) 96.2 80.0-94.0 [facility] HospitalWtnmnldKZGVTYKIHG2956-56-90 05:53:00 Test Item Value Reference Range Interpretation Comments Hgb (test code = Hgb) 10.8 14.0-18.0 [facility] HospitalPnclmsmNUOIOMNLTL5960-01-25 05:53:00 Test Item Value Reference Range Interpretation Comments Lymphocytes (test code = Lymphocytes) 7.8 20.0-40.0 [facility] HospitalAeiuuxjTTYYPCZKYD6804-40-07 05:53:00 Test Item Value Reference Range Interpretation Comments Monocytes (test code = Monocytes) 7.6 2.0-12.0 [facility] HospitalGpikvxtHXKAWOMUTV5932-67-11 05:53:00 Test Item Value Reference Range Interpretation Comments Eosinophils (test code = 0.6 See_Comment [A utomated message] The Eosinophils) system which ge nerated this result tra nsmitted reference range : <=4.0. The reference r renu was not used to int erpret this result as normal/abnormal . [facility] HospitalJyiunssWPORIZICVC9393-58-34 05:53:00 Test Item Value Reference Range Interpretation Comments Neutrophils # (test code = Neutrophils 9.1 1.5-8.1 #) [facility] HospitalXqaxsrvDXIZYNZBRZ6596-37-61 05:53:00 Test Item Value Reference Range Interpretation Comments Basophils (test code = 0.2 See_Comment [Aut omated message] The Basophils) system which ge nerated this result tra nsmitted reference range : <=1.0. The reference r renu was not used to int erpret this result as normal/abnormal . [facility] HospitalSioklptTESQZTJGQZ4847-05-30 05:53:00 Test Item Value Reference Range Interpretation Comments Lymphocytes # (test code = Lymphocytes 0.8 1.0-5.5 #) [facility] HospitalCpttjzeARKTSAZSRW9870-34-52 05:53:00 Test Item Value Reference Range Interpretation Comments Monocytes # (test code 0.8 See_Comment [Aut omated message] The = Monocytes #) system which generated this result tra nsmitted reference range : <=0.8. The reference r renu was not used to int erpret this result as normal/abnormal . [facility] HospitalIsnsukbVCYPNFKXFF2932-00-46 05:53:00 Test Item Value Reference Range Interpretation Comments Eosinophils # (test code 0.1 See_Comment [A utomated message] The = Eosinophils #) system whic h generated this result tra nsmitted reference range : <=0.5. The reference r renu was not used to int erpret this result as normal/abnormal . [facility] HospitalHzddmdjLNUFZHDYME1034-18-69 05:53:00 Test Item Value Reference Range Interpretation Comments Segs (test code = Segs) 83.8 45.0-75.0 [facility] HospitalPaqseebFFNOPQYEGG9231-75-43 05:53:00 Test Item Value Reference Range Interpretation Comments RBC (test code = RBC) 3.33 4.70-6.10 [facility] HospitalXajigscAWHEDFRFUA2109-90-41 05:53:00 Test Item Value Reference Range Interpretation Comments WBC (test code = WBC) 10.8 3.7-10.4 [facility] HospitalWbxgnzpYXULLWRPKJ2581-22-24 05:53:00 Test Item Value Reference Range Interpretation Comments RDW (test code = RDW) 15.2 11.5-14.5 [facility] HospitalEtrgheeTHTMTPTFCC0479-11-81 05:53:00 Test Item Value Reference Range Interpretation Comments Platelet (test code = Platelet) 118 133-450 [facility] HospitalRauuajxAWZYSCQSYO5691-69-68 05:53:00 Test Item Value Reference Range Interpretation Comments MPV (test code = MPV) 9.6 7.4-10.4 [facility] HospitalSxgdzlgVAOWTZFWUE5976-60-12 05:53:00 Test Item Value Reference Range Interpretation Comments MCHC (test code = MCHC) 33.5 32.0-36.0 [facility] HospitalBwxgvqdERDEYPMYCO2616-39-08 05:53:00 Test Item Value Reference Range Interpretation Comments MCH (test code = MCH) 32.3 pg 27.0-31.0 [facility] HospitalAurxlhaYFOKNHGVUJ4791-80-56 05:53:00 Test Item Value Reference Range Interpretation Comments Hct (test code = Hct) 32.1 42.0-54.0 [facility] HospitalAjbozrtFUUUCWDYGP7328-22-15 05:53:00 Test Item Value Reference Range Interpretation Comments MCV (test code = MCV) 96.2 80.0-94.0 [facility] HospitalRznhynmPFUCKLYFMG9152-29-25 05:53:00 Test Item Value Reference Range Interpretation Comments Hgb (test code = Hgb) 10.8 14.0-18.0 [facility] HospitalTvhfkzqNHSRAQEGGZ9044-78-67 05:53:00 Test Item Value Reference Range Interpretation Comments Lymphocytes (test code = Lymphocytes) 7.8 20.0-40.0 [facility] HospitalPcaavvoOLBBJXJWCB3486-46-30 05:53:00 Test Item Value Reference Range Interpretation Comments Monocytes (test code = Monocytes) 7.6 2.0-12.0 [facility] HospitalBreyznmXSMUAGNJOS1156-43-90 05:53:00 Test Item Value Reference Range Interpretation Comments Eosinophils (test code = 0.6 See_Comment [A utomated message] The Eosinophils) system which ge nerated this result tra nsmitted reference range : <=4.0. The reference r renu was not used to int erpret this result as normal/abnormal . [facility] HospitalNquxizaHGILYSKNBX0316-90-74 05:53:00 Test Item Value Reference Range Interpretation Comments Neutrophils # (test code = Neutrophils 9.1 1.5-8.1 #) [facility] HospitalIytahlnHGRIFSXJTN2821-92-14 05:53:00 Test Item Value Reference Range Interpretation Comments Basophils (test code = 0.2 See_Comment [Aut omated message] The Basophils) system which ge nerated this result tra nsmitted reference range : <=1.0. The reference r renu was not used to int erpret this result as normal/abnormal . [facility] HospitalEpkxwuxUXZZPAGFTT1501-50-62 05:53:00 Test Item Value Reference Range Interpretation Comments Lymphocytes # (test code = Lymphocytes 0.8 1.0-5.5 #) [facility] HospitalLvtiqfnSVSSOJUNJQ1810-95-89 05:53:00 Test Item Value Reference Range Interpretation Comments Monocytes # (test code 0.8 See_Comment [Aut omated message] The = Monocytes #) system which generated this result tra nsmitted reference range : <=0.8. The reference r renu was not used to int erpret this result as normal/abnormal . [facility] HospitalAdxdazgIOSKJMVRSH2857-76-75 05:53:00 Test Item Value Reference Range Interpretation Comments Eosinophils # (test code 0.1 See_Comment [A utomated message] The = Eosinophils #) system whic h generated this result tra nsmitted reference range : <=0.5. The reference r renu was not used to int erpret this result as normal/abnormal . [facility] HospitalJkkwsrkNUGBPEPEHY5510-06-97 05:53:00 Test Item Value Reference Range Interpretation Comments Segs (test code = Segs) 83.8 45.0-75.0 [facility] HospitalFgkhzubKDHMAIRLPR9164-53-02 05:53:00 Test Item Value Reference Range Interpretation Comments RBC (test code = RBC) 3.33 4.70-6.10 [facility] HospitalZxaveaoNGERIESYVB0889-56-58 05:53:00 Test Item Value Reference Range Interpretation Comments WBC (test code = WBC) 10.8 3.7-10.4 [facility] HospitalGeuajqtFNKSGZEDZV0313-43-70 05:53:00 Test Item Value Reference Range Interpretation Comments RDW (test code = RDW) 15.2 11.5-14.5 [facility] HospitalPccdtzcJKJWYANKUO6189-53-30 05:53:00 Test Item Value Reference Range Interpretation Comments Platelet (test code = Platelet) 118 133-450 [facility] HospitalItckgdmCXKUCDLXUO6559-33-92 05:53:00 Test Item Value Reference Range Interpretation Comments MPV (test code = MPV) 9.6 7.4-10.4 [facility] HospitalShmvfwpTYPBGTIEOO3702-83-51 05:53:00 Test Item Value Reference Range Interpretation Comments MCHC (test code = MCHC) 33.5 32.0-36.0 [facility] HospitalAbjrqutXNRPSOLAYJ2562-71-24 05:53:00 Test Item Value Reference Range Interpretation Comments MCH (test code = MCH) 32.3 pg 27.0-31.0 [facility] HospitalPpehxkiGUITSBARAT9440-10-71 05:53:00 Test Item Value Reference Range Interpretation Comments Hct (test code = Hct) 32.1 42.0-54.0 [facility] HospitalWctkaruZZRQRTGAOZ0225-44-93 05:53:00 Test Item Value Reference Range Interpretation Comments MCV (test code = MCV) 96.2 80.0-94.0 [facility] HospitalUzrqsokEKRGDONBIH1327-32-58 05:53:00 Test Item Value Reference Range Interpretation Comments Hgb (test code = Hgb) 10.8 14.0-18.0 [facility] HeightsGENTAMICIN:SUSC:PT:ISOLATE:ORDQN:[id number] 19:19:00 Test Item Value Reference Range Interpretation [...] Phone Report Made To: Crisfrancheskajosie Thomas at [address] At: 04/13/2018 08:13 Called By: Read Back [facility] JanesTAMICIN:SUSC:PT:ISOLATE:ORDQN:[id number] 19:19:00 Test Item Value Reference Range Interpretation Comments Escherichia coli (test code Escherichia coli = Escherichia coli) [facility] ClareDAWNMICIN:SUSC:PT:ISOLATE:ORDQN:[id number] 19:19:00 Test Item Value Reference Range Interpretation [...] Phone Report Made To: Ivania Thomas at [facility] At: 04/13/2018 08:13 Called By: Read Back [facility] JanesTAMICIN:SUSC:PT:ISOLATE:ORDQN:[id number] 19:19:00 Test Item Value Reference Range Interpretation Comments Escherichia coli (test code Escherichia coli = Escherichia coli) [facility] ClareDAWNMICIN:SUSC:PT:ISOLATE:ORDQN:[id number] 19:19:00 Test Item Value Reference Range Interpretation [...] Phone Report Made To: Crisfrancheskajosie Thomas at [address] At: 04/13/2018 08:13 Called By: Read Back [facility]:SUSC:PT:ISOLATE:ORDQN:[id number] 19:19:00 Test Item Value Reference Range Interpretation Comments Escherichia coli (test code Escherichia coli = Escherichia coli) [facility]:SUSC:PT:ISOLATE:ORDQN:[id number] 19:19:00 Test Item Value Reference Range Interpretation [...] Phone Report Made To: Ivania Thomas at [address] At: 04/13/2018 08:13 Called By: Read Back [facility]:SUSC:PT:ISOLATE:ORDQN:[id number] 19:19:00 Test Item Value Reference Range Interpretation Comments Escherichia coli (test code Escherichia coli = Escherichia coli) [facility]:SUSC:PT:ISOLATE:ORDQN:[id number] 19:19:00 Test Item Value Reference Range Interpretation [...] Phone Report Made To: Crisfrancheskajosie Thomas at [address] At: 04/13/2018 08:13 Called By: Read Back [facility]:SUSC:PT:ISOLATE:ORDQN:[id number] 19:19:00 Test Item Value Reference Range Interpretation Comments Escherichia coli (test code Escherichia coli = Escherichia coli) [facility]:SUSC:PT:ISOLATE:ORDQN:[id number] 19:19:00 Test Item Value Reference Range Interpretation [...] Phone Report Made To: Ivania Guzman at [address] At: 04/13/2018 08:13 Called By: Read Back [facility]:SUSC:PT:ISOLATE:ORDQN:[id number] 19:19:00 Test Item Value Reference Range Interpretation Comments Escherichia coli (test code Escherichia coli = Escherichia coli) [facility]:SUSC:PT:ISOLATE:ORDQN:[id number] 19:19:00 Test Item Value Reference Range Interpretation [...] Phone Report Made To: Ivania Guzman at [facility] At: 04/13/2018 08:13 Called By: Read Back [facility]DelmiWAL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 Corrected Report Is: >100,000 CFU/mL Escherichia coli . Upon Supplemental Testing, This Organism Was Not Found To Produce An Extended Spectrum Beta Lactamase (ESBL). Phone Report Made To: Ivania Brockadebayo at [address] At: 04/13/2018 08:13 Called By: Read Back [facility]:SUSC:PT:ISOLATE:ORDQN:[id number] 19:19:00 Test Item Value Reference Range Interpretation Comments Escherichia coli (test code Escherichia coli = Escherichia coli) [facility]:SUSC:PT:ISOLATE:ORDQN:[id number] 19:19:00 Test Item Value Reference Range Interpretation [...] Phone Report Made To: Crisfrancheskajosie Thomas at [address] At: 04/13/2018 08:13 Called By: Read Back [facility]:SUSC:PT:ISOLATE:ORDQN:[id number] 19:19:00 Test Item Value Reference Range Interpretation Comments Escherichia coli (test code Escherichia coli = Escherichia coli) [facility]:SUSC:PT:ISOLATE:ORDQN:[id number] 19:19:00 Test Item Value Reference Range Interpretation [...] Phone Report Made To: Mariloujosie Thomas at [address] At: 04/13/2018 08:13 Called By: Read Back [facility]:SUSC:PT:ISOLATE:ORDQN:[id number] 19:19:00 Test Item Value Reference Range Interpretation Comments Escherichia coli (test code Escherichia coli = Escherichia coli) [facility] StoneIN:SUSC:PT:ISOLATE:ORDQN:[id number] 19:19:00 Test Item Value Reference Range Interpretation [...] Phone Report Made To: Ivania Guzman at [facility] 8JNP At: 04/13/2018 08:13 Called By: Read Back Ok [facility]:SUSC:PT:ISOLATE:ORDQN:[id number] 19:19:00 Test Item Value Reference Range Interpretation Comments Escherichia coli (test code Escherichia coli = Escherichia coli) [facility] [id number] 18:42:00 Test Item Value Reference Range Interpretation Comments U Amph Scr (test code Negative *NA*(04/09/18 = U Amph Scr) 1:42 PM) [facility] [id number] 18:42:00 Test Item Value Reference Range Interpretation Comments U Cannab Scr (test Negative *NA*(04/09/18 code = U Cannab Scr) 1:42 PM) [facility] [id number] 18:42:00 Test Item Value Reference Range Interpretation Comments U Phencyclidine Scr (test Negative code = U Phencyclidine *NA*(04/09/18 1:42 Scr) PM) [facility] [id number] 18:42:00 Test Item Value Reference Range Interpretation Comments U Opiate Scr (test Positive *ABN*(04/09/18 code = U Opiate Scr) 1:42 PM) [facility] [id number] 18:42:00 Test Item Value Reference Range Interpretation Comments UDS Note (test code = See Note (04/09/18 1:42 UDS Note) PM) [facility] [id number] 18:42:00 Test Item Value Reference Range Interpretation Comments U Maureen Scr (test code Negative *NA*(04/09/18 = U Maureen Scr) 1:42 PM) [facility] [id number] 18:42:00 Test Item Value Reference Range Interpretation Comments U Cocaine Scr (test Negative *NA*(04/09/18 code = U Cocaine Scr) 1:42 PM) [facility] [id number] 18:42:00 Test Item Value Reference Range Interpretation Comments U Benzodiaz Scr (test Negative *NA*(04/09/18 code = U Benzodiaz Scr) 1:42 PM) [facility] [id number] 18:42:00 Test Item Value Reference Range Interpretation Comments UA Urobilinogen (test code = UA <=1.0 mg/dL 0.1-1.0 Urobilinogen) [facility] [id number] 18:42:00 Test Item Value Reference Range Interpretation Comments UA Sq Epi (test code = UA Sq Epi) None Seen [facility] [id number] 18:42:00 Test Item Value Reference Range Interpretation Comments UA Blood (test code = Large *ABN*(04/09/18 UA Blood) 1:42 PM) [facility] [id number] 18:42:00 Test Item Value Reference Range Interpretation Comments UA Nitrite (test code Negative (04/09/18 1:42 = UA Nitrite) PM) [facility] [id number] 18:42:00 Test Item Value Reference Range Interpretation Comments UA Leuk Est (test code Large *ABN*(04/09/18 = UA Leuk Est) 1:42 PM) [facility] [id number] 18:42:00 Test Item Value Reference Range Interpretation Comments UA WBC (test code = no gt See_Comment [Automa karla message] The UA WBC) system which ge nerated this result transmit karla reference range : <=5. The reference range was not used to interpr et this result as parul l/abnormal. [facility] [id number] 18:42:00 Test Item Value Reference Range Interpretation Comments UA RBC (test code = 125 See_Comment [Automa karla message] The UA RBC) system which ge nerated this result transmit karla reference range : <=2. The reference range was not used to interpr et this result as parul l/abnormal. [facility] [id number] 18:42:00 Test Item Value Reference Range Interpretation Comments UA Glucose (test code = UA Negative mg/dL Glucose) [facility] [id number] 18:42:00 Test Item Value Reference Range Interpretation Comments UA Ketones (test code = UA Negative mg/dL Ketones) [facility] [id number] 18:42:00 Test Item Value Reference Range Interpretation Comments UA Bili (test code = Negative *NA*(04/09/18 UA Bili) 1:42 PM) [facility] [id number] 18:42:00 Test Item Value Reference Range Interpretation Comments UA Bacteria (test code = UA Occasional /HPF Bacteria) [facility] [id number] 18:42:00 Test Item Value Reference Range Interpretation Comments UA Color (test code = Yellow *NA*(04/09/18 UA Color) 1:42 PM) [facility] [id number] 18:42:00 Test Item Value Reference Range Interpretation Comments UA Turbidity (test code Marked *ABN*(04/09/18 = UA Turbidity) 1:42 PM) [facility] [id number] 18:42:00 Test Item Value Reference Range Interpretation Comments UA Spec Grav (test code = UA Spec 1.013 1 Grav) [facility] [id number] 18:42:00 Test Item Value Reference Range Interpretation Comments UA pH (test code = UA pH) 5.5 1 5.0-8.0 [facility] [id number] 18:42:00 Test Item Value Reference Range Interpretation Comments UA Protein (test code = UA Protein) 100 mg/dL [facility] [id number] 18:42:00 Test Item Value Reference Range Interpretation Comments U Amph Scr (test code Negative *NA*(04/09/18 = U Amph Scr) 1:42 PM) [facility] [id number] 18:42:00 Test Item Value Reference Range Interpretation Comments U Cannab Scr (test Negative *NA*(04/09/18 code = U Cannab Scr) 1:42 PM) [facility] [id number] 18:42:00 Test Item Value Reference Range Interpretation Comments U Phencyclidine Scr (test Negative code = U Phencyclidine *NA*(04/09/18 1:42 Scr) PM) [facility] [id number] 18:42:00 Test Item Value Reference Range Interpretation Comments U Opiate Scr (test Positive *ABN*(04/09/18 code = U Opiate Scr) 1:42 PM) [facility] [id number] 18:42:00 Test Item Value Reference Range Interpretation Comments UDS Note (test code = See Note (04/09/18 1:42 UDS Note) PM) [facility] [id number] 18:42:00 Test Item Value Reference Range Interpretation Comments U Maureen Scr (test code Negative *NA*(04/09/18 = U Maureen Scr) 1:42 PM) [facility] [id number] 18:42:00 Test Item Value Reference Range Interpretation Comments U Cocaine Scr (test Negative *NA*(04/09/18 code = U Cocaine Scr) 1:42 PM) [facility] [id number] 18:42:00 Test Item Value Reference Range Interpretation Comments U Benzodiaz Scr (test Negative *NA*(04/09/18 code = U Benzodiaz Scr) 1:42 PM) [facility] [id number] 18:42:00 Test Item Value Reference Range Interpretation Comments UA Urobilinogen (test code = UA <=1.0 mg/dL 0.1-1.0 Urobilinogen) [facility] [id number] 18:42:00 Test Item Value Reference Range Interpretation Comments UA Sq Epi (test code = UA Sq Epi) None [facility]en [facility] [id number] 18:42:00 Test Item Value Reference Range Interpretation Comments UA Blood (test code = Large *ABN*(04/09/18 UA Blood) 1:42 PM) [facility] [id number] 18:42:00 Test Item Value Reference Range Interpretation Comments UA Nitrite (test code Negative (04/09/18 1:42 = UA Nitrite) PM) [facility] [id number] 18:42:00 Test Item Value Reference Range Interpretation Comments UA Leuk Est (test code Large *ABN*(04/09/18 = UA Leuk Est) 1:42 PM) [facility] AND [id number] 18:42:00 Test Item Value Reference Range Interpretation Comments UA WBC (test code = no gt See_Comment [Automa karla message] The UA WBC) system which ge nerated this result transmit karla reference range : <=5. The reference range was not used to interpr et this result as parul l/abnormal. [facility] AND [id number] 18:42:00 Test Item Value Reference Range Interpretation Comments UA RBC (test code = 125 See_Comment [Automa karla message] The UA RBC) system which ge nerated this result transmit karla reference range : <=2. The reference range was not used to interpr et this result as parul l/abnormal. [facility] AND [id number] 18:42:00 Test Item Value Reference Range Interpretation Comments UA Glucose (test code = UA Negative mg/dL Glucose) [facility] AND [id number] 18:42:00 Test Item Value Reference Range Interpretation Comments UA Ketones (test code = UA Negative mg/dL Ketones) [facility] AND [id number] 18:42:00 Test Item Value Reference Range Interpretation Comments UA Bili (test code = Negative *NA*(04/09/18 UA Bili) 1:42 PM) [facility] AND [id number] 18:42:00 Test Item Value Reference Range Interpretation Comments UA Bacteria (test code = UA Occasional /HPF Bacteria) [facility] AND [id number] 18:42:00 Test Item Value Reference Range Interpretation Comments UA Color (test code = Yellow *NA*(04/09/18 UA Color) 1:42 PM) [facility] AND [id number] 18:42:00 Test Item Value Reference Range Interpretation Comments UA Turbidity (test code Marked *ABN*(04/09/18 = UA Turbidity) 1:42 PM) [facility] AND [id number] 18:42:00 Test Item Value Reference Range Interpretation Comments UA Spec Grav (test code = UA Spec 1.013 1 Grav) [facility] [id number] 18:42:00 Test Item Value Reference Range Interpretation Comments UA pH (test code = UA pH) 5.5 1 5.0-8.0 [facility] [id number] 18:42:00 Test Item Value Reference Range Interpretation Comments UA Protein (test code = UA Protein) 100 mg/dL [facility] [id number] 18:42:00 Test Item Value Reference Range Interpretation Comments U Amph Scr (test code Negative *NA*(04/09/18 = U Amph Scr) 1:42 PM) [facility] [id number] 18:42:00 Test Item Value Reference Range Interpretation Comments U Cannab Scr (test Negative *NA*(04/09/18 code = U Cannab Scr) 1:42 PM) [facility] [id number] 18:42:00 Test Item Value Reference Range Interpretation Comments U Phencyclidine Scr (test Negative code = U Phencyclidine *NA*(04/09/18 1:42 Scr) PM) [facility] [id number] 18:42:00 Test Item Value Reference Range Interpretation Comments U Opiate Scr (test Positive *ABN*(04/09/18 code = U Opiate Scr) 1:42 PM) [facility] [id number] 18:42:00 Test Item Value Reference Range Interpretation Comments UDS Note (test code = See Note (04/09/18 1:42 UDS Note) PM) [facility] [id number] 18:42:00 Test Item Value Reference Range Interpretation Comments U Maureen Scr (test code Negative *NA*(04/09/18 = U Maureen Scr) 1:42 PM) [facility] [id number] 18:42:00 Test Item Value Reference Range Interpretation Comments U Cocaine Scr (test Negative *NA*(04/09/18 code = U Cocaine Scr) 1:42 PM) [facility] [id number] 18:42:00 Test Item Value Reference Range Interpretation Comments U Benzodiaz Scr (test Negative *NA*(04/09/18 code = U Benzodiaz Scr) 1:42 PM) [facility] [id number] 18:42:00 Test Item Value Reference Range Interpretation Comments UA Urobilinogen (test code = UA <=1.0 mg/dL 0.1-1.0 Urobilinogen) [facility] AND [id number] 18:42:00 Test Item Value Reference Range Interpretation Comments UA Sq Epi (test code = UA Sq Epi) None Seen [facility] AND [id number] 18:42:00 Test Item Value Reference Range Interpretation Comments UA Blood (test code = Large *ABN*(04/09/18 UA Blood) 1:42 PM) [facility] AND [id number] 18:42:00 Test Item Value Reference Range Interpretation Comments UA Nitrite (test code Negative (04/09/18 1:42 = UA Nitrite) PM) [facility] AND [id number] 18:42:00 Test Item Value Reference Range Interpretation Comments UA Leuk Est (test code Large *ABN*(04/09/18 = UA Leuk Est) 1:42 PM) [facility] AND [id number] 18:42:00 Test Item Value Reference Range Interpretation Comments UA WBC (test code = no gt See_Comment [Automa karla message] The UA WBC) system which ge nerated this result transmit karla reference range : <=5. The reference range was not used to interpr et this result as parul l/abnormal. [facility] AND [id number] 18:42:00 Test Item Value Reference Range Interpretation Comments UA RBC (test code = 125 See_Comment [Automa karla message] The UA RBC) system which ge nerated this result transmit karla reference range : <=2. The reference range was not used to interpr et this result as parul l/abnormal. [facility] AND [id number] 18:42:00 Test Item Value Reference Range Interpretation Comments UA Glucose (test code = UA Negative mg/dL Glucose) [facility] AND [id number] 18:42:00 Test Item Value Reference Range Interpretation Comments UA Ketones (test code = UA Negative mg/dL Ketones) [facility] AND [id number] 18:42:00 Test Item Value Reference Range Interpretation Comments UA Bili (test code = Negative *NA*(04/09/18 UA Bili) 1:42 PM) [facility] AND [id number] 18:42:00 Test Item Value Reference Range Interpretation Comments UA Bacteria (test code = UA Occasional /HPF Bacteria) [facility] [id number] 18:42:00 Test Item Value Reference Range Interpretation Comments UA Color (test code = Yellow *NA*(04/09/18 UA Color) 1:42 PM) [facility] [id number] 18:42:00 Test Item Value Reference Range Interpretation Comments UA Turbidity (test code Marked *ABN*(04/09/18 = UA Turbidity) 1:42 PM) [facility] [id number] 18:42:00 Test Item Value Reference Range Interpretation Comments UA Spec Grav (test code = UA Spec 1.013 1 Grav) [facility] [id number] 18:42:00 Test Item Value Reference Range Interpretation Comments UA pH (test code = UA pH) 5.5 1 5.0-8.0 [facility] [id number] 18:42:00 Test Item Value Reference Range Interpretation Comments UA Protein (test code = UA Protein) 100 mg/dL [facility] [id number] 18:42:00 Test Item Value Reference Range Interpretation Comments U Amph Scr (test code Negative *NA*(04/09/18 = U Amph Scr) 1:42 PM) [facility] [id number] 18:42:00 Test Item Value Reference Range Interpretation Comments U Cannab Scr (test Negative *NA*(04/09/18 code = U Cannab Scr) 1:42 PM) [facility] [id number] 18:42:00 Test Item Value Reference Range Interpretation Comments U Phencyclidine Scr (test Negative code = U Phencyclidine *NA*(04/09/18 1:42 Scr) PM) [facility] [id number] 18:42:00 Test Item Value Reference Range Interpretation Comments U Opiate Scr (test Positive *ABN*(04/09/18 code = U Opiate Scr) 1:42 PM) [facility] [id number] 18:42:00 Test Item Value Reference Range Interpretation Comments UDS Note (test code = See Note (04/09/18 1:42 UDS Note) PM) [facility] [id number] 18:42:00 Test Item Value Reference Range Interpretation Comments U Maureen Scr (test code Negative *NA*(04/09/18 = U Maureen Scr) 1:42 PM) [facility] [id number] 18:42:00 Test Item Value Reference Range Interpretation Comments U Cocaine Scr (test Negative *NA*(04/09/18 code = U Cocaine Scr) 1:42 PM) [facility] [id number] 18:42:00 Test Item Value Reference Range Interpretation Comments U Benzodiaz Scr (test Negative *NA*(04/09/18 code = U Benzodiaz Scr) 1:42 PM) [facility] [id number] 18:42:00 Test Item Value Reference Range Interpretation Comments UA Urobilinogen (test code = UA <=1.0 mg/dL 0.1-1.0 Urobilinogen) [facility] [id number] 18:42:00 Test Item Value Reference Range Interpretation Comments UA Sq Epi (test code = UA Sq Epi) None [facility]en [facility] [id number] 18:42:00 Test Item Value Reference Range Interpretation Comments UA Blood (test code = Large *ABN*(04/09/18 UA Blood) 1:42 PM) [facility] [id number] 18:42:00 Test Item Value Reference Range Interpretation Comments UA Nitrite (test code Negative (04/09/18 1:42 = UA Nitrite) PM) [facility] [id number] 18:42:00 Test Item Value Reference Range Interpretation Comments UA Leuk Est (test code Large *ABN*(04/09/18 = UA Leuk Est) 1:42 PM) [facility] [id number] 18:42:00 Test Item Value Reference Range Interpretation Comments UA WBC (test code = no gt See_Comment [Automa karla message] The UA WBC) system which ge nerated this result transmit karla reference range : <=5. The reference range was not used to interpr et this result as parul l/abnormal. [facility] [id number] 18:42:00 Test Item Value Reference Range Interpretation Comments UA RBC (test code = 125 See_Comment [Automa karla message] The UA RBC) system which ge nerated this result transmit karla reference range : <=2. The reference range was not used to interpr et this result as parul l/abnormal. [facility] [id number] 18:42:00 Test Item Value Reference Range Interpretation Comments UA Glucose (test code = UA Negative mg/dL Glucose) [facility] [id number] 18:42:00 Test Item Value Reference Range Interpretation Comments UA Ketones (test code = UA Negative mg/dL Ketones) [facility] [id number] 18:42:00 Test Item Value Reference Range Interpretation Comments UA Bili (test code = Negative *NA*(04/09/18 UA Bili) 1:42 PM) [facility] [id number] 18:42:00 Test Item Value Reference Range Interpretation Comments UA Bacteria (test code = UA Occasional /HPF Bacteria) [facility] [id number] 18:42:00 Test Item Value Reference Range Interpretation Comments UA Color (test code = Yellow *NA*(04/09/18 UA Color) 1:42 PM) [facility] [id number] 18:42:00 Test Item Value Reference Range Interpretation Comments UA Turbidity (test code Marked *ABN*(04/09/18 = UA Turbidity) 1:42 PM) [facility] [id number] 18:42:00 Test Item Value Reference Range Interpretation Comments UA Spec Grav (test code = UA Spec 1.013 1 Grav) [facility] [id number] 18:42:00 Test Item Value Reference Range Interpretation Comments UA pH (test code = UA pH) 5.5 1 5.0-8.0 [facility] [id number] 18:42:00 Test Item Value Reference Range Interpretation Comments UA Protein (test code = UA Protein) 100 mg/dL [facility] [id number] 18:42:00 Test Item Value Reference Range Interpretation Comments U Amph Scr (test code Negative *NA*(04/09/18 = U Amph Scr) 1:42 PM) [facility] [id number] 18:42:00 Test Item Value Reference Range Interpretation Comments U Cannab Scr (test Negative *NA*(04/09/18 code = U Cannab Scr) 1:42 PM) [facility] [id number] 18:42:00 Test Item Value Reference Range Interpretation Comments U Phencyclidine Scr (test Negative code = U Phencyclidine *NA*(04/09/18 1:42 Scr) PM) [facility] [id number] 18:42:00 Test Item Value Reference Range Interpretation Comments U Opiate Scr (test Positive *ABN*(04/09/18 code = U Opiate Scr) 1:42 PM) [facility] [id number] 18:42:00 Test Item Value Reference Range Interpretation Comments UDS Note (test code = See Note (04/09/18 1:42 UDS Note) PM) [facility] [id number] 18:42:00 Test Item Value Reference Range Interpretation Comments U Maureen Scr (test code Negative *NA*(04/09/18 = U Maureen Scr) 1:42 PM) [facility] [id number] 18:42:00 Test Item Value Reference Range Interpretation Comments U Cocaine Scr (test Negative *NA*(04/09/18 code = U Cocaine Scr) 1:42 PM) [facility] [id number] 18:42:00 Test Item Value Reference Range Interpretation Comments U Benzodiaz Scr (test Negative *NA*(04/09/18 code = U Benzodiaz Scr) 1:42 PM) [facility] [id number] 18:42:00 Test Item Value Reference Range Interpretation Comments UA Urobilinogen (test code = UA <=1.0 mg/dL 0.1-1.0 Urobilinogen) [facility] [id number] 18:42:00 Test Item Value Reference Range Interpretation Comments UA Sq Epi (test code = UA Sq Epi) None [facility]en [facility] [id number] 18:42:00 Test Item Value Reference Range Interpretation Comments UA Blood (test code = Large *ABN*(04/09/18 UA Blood) 1:42 PM) [facility] [id number] 18:42:00 Test Item Value Reference Range Interpretation Comments UA Nitrite (test code Negative (04/09/18 1:42 = UA Nitrite) PM) [facility] [id number] 18:42:00 Test Item Value Reference Range Interpretation Comments UA Leuk Est (test code Large *ABN*(04/09/18 = UA Leuk Est) 1:42 PM) [facility] AND [id number] 18:42:00 Test Item Value Reference Range Interpretation Comments UA WBC (test code = no gt See_Comment [Automa karla message] The UA WBC) system which ge nerated this result transmit karla reference range : <=5. The reference range was not used to interpr et this result as parul l/abnormal. [facility] AND [id number] 18:42:00 Test Item Value Reference Range Interpretation Comments UA RBC (test code = 125 See_Comment [Automa karla message] The UA RBC) system which ge nerated this result transmit karla reference range : <=2. The reference range was not used to interpr et this result as parul l/abnormal. [facility] AND [id number] 18:42:00 Test Item Value Reference Range Interpretation Comments UA Glucose (test code = UA Negative mg/dL Glucose) [facility] AND [id number] 18:42:00 Test Item Value Reference Range Interpretation Comments UA Ketones (test code = UA Negative mg/dL Ketones) [facility] AND [id number] 18:42:00 Test Item Value Reference Range Interpretation Comments UA Bili (test code = Negative *NA*(04/09/18 UA Bili) 1:42 PM) [facility] AND [id number] 18:42:00 Test Item Value Reference Range Interpretation Comments UA Bacteria (test code = UA Occasional /HPF Bacteria) [facility] AND [id number] 18:42:00 Test Item Value Reference Range Interpretation Comments UA Color (test code = Yellow *NA*(04/09/18 UA Color) 1:42 PM) [facility] AND [id number] 18:42:00 Test Item Value Reference Range Interpretation Comments UA Turbidity (test code Marked *ABN*(04/09/18 = UA Turbidity) 1:42 PM) [facility] AND [id number] 18:42:00 Test Item Value Reference Range Interpretation Comments UA Spec Grav (test code = UA Spec 1.013 1 Grav) [facility] AND [id number] 18:42:00 Test Item Value Reference Range Interpretation Comments UA pH (test code = UA pH) 5.5 1 5.0-8.0 [facility] [id number] 18:42:00 Test Item Value Reference Range Interpretation Comments UA Protein (test code = UA Protein) 100 mg/dL [facility] [id number] 18:42:00 Test Item Value Reference Range Interpretation Comments U Amph Scr (test code Negative *NA*(04/09/18 = U Amph Scr) 1:42 PM) [facility] [id number] 18:42:00 Test Item Value Reference Range Interpretation Comments U Cannab Scr (test Negative *NA*(04/09/18 code = U Cannab Scr) 1:42 PM) [facility] [id number] 18:42:00 Test Item Value Reference Range Interpretation Comments U Phencyclidine Scr (test Negative code = U Phencyclidine *NA*(04/09/18 1:42 Scr) PM) [facility] [id number] 18:42:00 Test Item Value Reference Range Interpretation Comments U Opiate Scr (test Positive *ABN*(04/09/18 code = U Opiate Scr) 1:42 PM) [facility] [id number] 18:42:00 Test Item Value Reference Range Interpretation Comments UDS Note (test code = See Note (04/09/18 1:42 UDS Note) PM) [facility] [id number] 18:42:00 Test Item Value Reference Range Interpretation Comments U Maureen Scr (test code Negative *NA*(04/09/18 = U Maureen Scr) 1:42 PM) [facility] [id number] 18:42:00 Test Item Value Reference Range Interpretation Comments U Cocaine Scr (test Negative *NA*(04/09/18 code = U Cocaine Scr) 1:42 PM) [facility] [id number] 18:42:00 Test Item Value Reference Range Interpretation Comments U Benzodiaz Scr (test Negative *NA*(04/09/18 code = U Benzodiaz Scr) 1:42 PM) [facility] [id number] 18:42:00 Test Item Value Reference Range Interpretation Comments UA Urobilinogen (test code = UA <=1.0 mg/dL 0.1-1.0 Urobilinogen) [facility] AND [id number] 18:42:00 Test Item Value Reference Range Interpretation Comments UA Sq Epi (test code = UA Sq Epi) None Seen [facility] AND [id number] 18:42:00 Test Item Value Reference Range Interpretation Comments UA Blood (test code = Large *ABN*(04/09/18 UA Blood) 1:42 PM) [facility] AND [id number] 18:42:00 Test Item Value Reference Range Interpretation Comments UA Nitrite (test code Negative (04/09/18 1:42 = UA Nitrite) PM) [facility] AND [id number] 18:42:00 Test Item Value Reference Range Interpretation Comments UA Leuk Est (test code Large *ABN*(04/09/18 = UA Leuk Est) 1:42 PM) [facility] AND [id number] 18:42:00 Test Item Value Reference Range Interpretation Comments UA WBC (test code = no gt See_Comment [Automa karla message] The UA WBC) system which ge nerated this result transmit karla reference range : <=5. The reference range was not used to interpr et this result as parul l/abnormal. [facility] AND [id number] 18:42:00 Test Item Value Reference Range Interpretation Comments UA RBC (test code = 125 See_Comment [Automa karla message] The UA RBC) system which ge nerated this result transmit karla reference range : <=2. The reference range was not used to interpr et this result as parul l/abnormal. [facility] AND [id number] 18:42:00 Test Item Value Reference Range Interpretation Comments UA Glucose (test code = UA Negative mg/dL Glucose) [facility] AND [id number] 18:42:00 Test Item Value Reference Range Interpretation Comments UA Ketones (test code = UA Negative mg/dL Ketones) [facility] AND [id number] 18:42:00 Test Item Value Reference Range Interpretation Comments UA Bili (test code = Negative *NA*(04/09/18 UA Bili) 1:42 PM) [facility] [id number] 18:42:00 Test Item Value Reference Range Interpretation Comments UA Bacteria (test code = UA Occasional /HPF Bacteria) [facility] [id number] 18:42:00 Test Item Value Reference Range Interpretation Comments UA Color (test code = Yellow *NA*(04/09/18 UA Color) 1:42 PM) [facility] [id number] 18:42:00 Test Item Value Reference Range Interpretation Comments UA Turbidity (test code Marked *ABN*(04/09/18 = UA Turbidity) 1:42 PM) [facility] [id number] 18:42:00 Test Item Value Reference Range Interpretation Comments UA Spec Grav (test code = UA Spec 1.013 1 Grav) [facility] [id number] 18:42:00 Test Item Value Reference Range Interpretation Comments UA pH (test code = UA pH) 5.5 1 5.0-8.0 [facility] [id number] 18:42:00 Test Item Value Reference Range Interpretation Comments UA Protein (test code = UA Protein) 100 mg/dL [facility] [id number] 18:42:00 Test Item Value Reference Range Interpretation Comments U Amph Scr (test code Negative *NA*(04/09/18 = U Amph Scr) 1:42 PM) [facility] [id number] 18:42:00 Test Item Value Reference Range Interpretation Comments U Cannab Scr (test Negative *NA*(04/09/18 code = U Cannab Scr) 1:42 PM) [facility] [id number] 18:42:00 Test Item Value Reference Range Interpretation Comments U Phencyclidine Scr (test Negative code = U Phencyclidine *NA*(04/09/18 1:42 Scr) PM) [facility] [id number] 18:42:00 Test Item Value Reference Range Interpretation Comments U Opiate Scr (test Positive *ABN*(04/09/18 code = U Opiate Scr) 1:42 PM) [facility] [id number] 18:42:00 Test Item Value Reference Range Interpretation Comments UDS Note (test code = See Note (04/09/18 1:42 UDS Note) PM) [facility] [id number] 18:42:00 Test Item Value Reference Range Interpretation Comments U Maureen Scr (test code Negative *NA*(04/09/18 = U Maureen Scr) 1:42 PM) [facility] [id number] 18:42:00 Test Item Value Reference Range Interpretation Comments U Cocaine Scr (test Negative *NA*(04/09/18 code = U Cocaine Scr) 1:42 PM) [facility] [id number] 18:42:00 Test Item Value Reference Range Interpretation Comments U Benzodiaz Scr (test Negative *NA*(04/09/18 code = U Benzodiaz Scr) 1:42 PM) [facility] [id number] 18:42:00 Test Item Value Reference Range Interpretation Comments UA Urobilinogen (test code = UA <=1.0 mg/dL 0.1-1.0 Urobilinogen) [facility] [id number] 18:42:00 Test Item Value Reference Range Interpretation Comments UA Sq Epi (test code = UA Sq Epi) None [facility]en [facility] [id number] 18:42:00 Test Item Value Reference Range Interpretation Comments UA Blood (test code = Large *ABN*(04/09/18 UA Blood) 1:42 PM) [facility] [id number] 18:42:00 Test Item Value Reference Range Interpretation Comments UA Nitrite (test code Negative (04/09/18 1:42 = UA Nitrite) PM) [facility] [id number] 18:42:00 Test Item Value Reference Range Interpretation Comments UA Leuk Est (test code Large *ABN*(04/09/18 = UA Leuk Est) 1:42 PM) [facility] [id number] 18:42:00 Test Item Value Reference Range Interpretation Comments UA WBC (test code = no gt See_Comment [Automa karla message] The UA WBC) system which ge nerated this result transmit karla reference range : <=5. The reference range was not used to interpr et this result as parul l/abnormal. [facility] [id number] 18:42:00 Test Item Value Reference Range Interpretation Comments UA RBC (test code = 125 See_Comment [Automa karla message] The UA RBC) system which ge nerated this result transmit karla reference range : <=2. The reference range was not used to interpr et this result as parul l/abnormal. [facility] [id number] 18:42:00 Test Item Value Reference Range Interpretation Comments UA Glucose (test code = UA Negative mg/dL Glucose) [facility] [id number] 18:42:00 Test Item Value Reference Range Interpretation Comments UA Ketones (test code = UA Negative mg/dL Ketones) [facility] [id number] 18:42:00 Test Item Value Reference Range Interpretation Comments UA Bili (test code = Negative *NA*(04/09/18 UA Bili) 1:42 PM) [facility] [id number] 18:42:00 Test Item Value Reference Range Interpretation Comments UA Bacteria (test code = UA Occasional /HPF Bacteria) [facility] [id number] 18:42:00 Test Item Value Reference Range Interpretation Comments UA Color (test code = Yellow *NA*(04/09/18 UA Color) 1:42 PM) [facility] [id number] 18:42:00 Test Item Value Reference Range Interpretation Comments UA Turbidity (test code Marked *ABN*(04/09/18 = UA Turbidity) 1:42 PM) [facility] [id number] 18:42:00 Test Item Value Reference Range Interpretation Comments UA Spec Grav (test code = UA Spec 1.013 1 Grav) [facility] [id number] 18:42:00 Test Item Value Reference Range Interpretation Comments UA pH (test code = UA pH) 5.5 1 5.0-8.0 [facility] [id number] 18:42:00 Test Item Value Reference Range Interpretation Comments UA Protein (test code = UA Protein) 100 mg/dL [facility] [id number] 18:42:00 Test Item Value Reference Range Interpretation Comments U Amph Scr (test code Negative *NA*(04/09/18 = U Amph Scr) 1:42 PM) [facility] [id number] 18:42:00 Test Item Value Reference Range Interpretation Comments U Cannab Scr (test Negative *NA*(04/09/18 code = U Cannab Scr) 1:42 PM) [facility] [facility] [id number] 18:42:00 Test Item Value Reference Range Interpretation Comments U Phencyclidine Scr (test Negative code = U Phencyclidine *NA*(04/09/18 1:42 Scr) PM) [facility] [id number] 18:42:00 Test Item Value Reference Range Interpretation Comments U Opiate Scr (test Positive *ABN*(04/09/18 code = U Opiate Scr) 1:42 PM) [facility] [id number] 18:42:00 Test Item Value Reference Range Interpretation Comments UDS Note (test code = See Note (04/09/18 1:42 UDS Note) PM) [facility] [id number] 18:42:00 Test Item Value Reference Range Interpretation Comments U Maureen Scr (test code Negative *NA*(04/09/18 = U Maureen Scr) 1:42 PM) [facility] [id number] 18:42:00 Test Item Value Reference Range Interpretation Comments U Cocaine Scr (test Negative *NA*(04/09/18 code = U Cocaine Scr) 1:42 PM) [facility] [id number] 18:42:00 Test Item Value Reference Range Interpretation Comments U Benzodiaz Scr (test Negative *NA*(04/09/18 code = U Benzodiaz Scr) 1:42 PM) [facility] [id number] 18:42:00 Test Item Value Reference Range Interpretation Comments UA Urobilinogen (test code = UA <=1.0 mg/dL 0.1-1.0 Urobilinogen) [facility] [id number] 18:42:00 Test Item Value Reference Range Interpretation Comments UA Sq Epi (test code = UA Sq Epi) None [facility]en [facility] [id number] 18:42:00 Test Item Value Reference Range Interpretation Comments UA Blood (test code = Large *ABN*(04/09/18 UA Blood) 1:42 PM) [facility] [id number] 18:42:00 Test Item Value Reference Range Interpretation Comments UA Nitrite (test code Negative (04/09/18 1:42 = UA Nitrite) PM) [facility] [id number] 18:42:00 Test Item Value Reference Range Interpretation Comments UA Leuk Est (test code Large *ABN*(04/09/18 = UA Leuk Est) 1:42 PM) [facility] AND [id number] 18:42:00 Test Item Value Reference Range Interpretation Comments UA WBC (test code = no gt See_Comment [Automa karla message] The UA WBC) system which ge nerated this result transmit karla reference range : <=5. The reference range was not used to interpr et this result as parul l/abnormal. [facility] AND [id number] 18:42:00 Test Item Value Reference Range Interpretation Comments UA RBC (test code = 125 See_Comment [Automa karla message] The UA RBC) system which ge nerated this result transmit karla reference range : <=2. The reference range was not used to interpr et this result as parul l/abnormal. [facility] AND [id number] 18:42:00 Test Item Value Reference Range Interpretation Comments UA Glucose (test code = UA Negative mg/dL Glucose) [facility] AND [id number] 18:42:00 Test Item Value Reference Range Interpretation Comments UA Ketones (test code = UA Negative mg/dL Ketones) [facility] AND [id number] 18:42:00 Test Item Value Reference Range Interpretation Comments UA Bili (test code = Negative *NA*(04/09/18 UA Bili) 1:42 PM) [facility] AND [id number] 18:42:00 Test Item Value Reference Range Interpretation Comments UA Bacteria (test code = UA Occasional /HPF Bacteria) [facility] AND [id number] 18:42:00 Test Item Value Reference Range Interpretation Comments UA Color (test code = Yellow *NA*(04/09/18 UA Color) 1:42 PM) [facility] AND [id number] 18:42:00 Test Item Value Reference Range Interpretation Comments UA Turbidity (test code Marked *ABN*(04/09/18 = UA Turbidity) 1:42 PM) [facility] AND [id number] 18:42:00 Test Item Value Reference Range Interpretation Comments UA Spec Grav (test code = UA Spec 1.013 1 Grav) [facility] [id number] 18:42:00 Test Item Value Reference Range Interpretation Comments UA pH (test code = UA pH) 5.5 1 5.0-8.0 [facility] [id number] 18:42:00 Test Item Value Reference Range Interpretation Comments UA Protein (test code = UA Protein) 100 mg/dL [facility] [id number] 18:42:00 Test Item Value Reference Range Interpretation Comments U Amph Scr (test code Negative *NA*(04/09/18 = U Amph Scr) 1:42 PM) [facility] [id number] 18:42:00 Test Item Value Reference Range Interpretation Comments U Cannab Scr (test Negative *NA*(04/09/18 code = U Cannab Scr) 1:42 PM) [facility] [id number] 18:42:00 Test Item Value Reference Range Interpretation Comments U Phencyclidine Scr (test Negative code = U Phencyclidine *NA*(04/09/18 1:42 Scr) PM) [facility] [id number] 18:42:00 Test Item Value Reference Range Interpretation Comments U Opiate Scr (test Positive *ABN*(04/09/18 code = U Opiate Scr) 1:42 PM) [facility] [id number] 18:42:00 Test Item Value Reference Range Interpretation Comments UDS Note (test code = See Note (04/09/18 1:42 UDS Note) PM) [facility] [id number] 18:42:00 Test Item Value Reference Range Interpretation Comments U Maureen Scr (test code Negative *NA*(04/09/18 = U Maureen Scr) 1:42 PM) [facility] [id number] 18:42:00 Test Item Value Reference Range Interpretation Comments U Cocaine Scr (test Negative *NA*(04/09/18 code = U Cocaine Scr) 1:42 PM) [facility] [id number] 18:42:00 Test Item Value Reference Range Interpretation Comments U Benzodiaz Scr (test Negative *NA*(04/09/18 code = U Benzodiaz Scr) 1:42 PM) [facility] [id number] 18:42:00 Test Item Value Reference Range Interpretation Comments UA Urobilinogen (test code = UA <=1.0 mg/dL 0.1-1.0 Urobilinogen) [facility] AND [id number] 18:42:00 Test Item Value Reference Range Interpretation Comments UA Sq Epi (test code = UA Sq Epi) None Seen [facility] AND [id number] 18:42:00 Test Item Value Reference Range Interpretation Comments UA Blood (test code = Large *ABN*(04/09/18 UA Blood) 1:42 PM) [facility] AND [id number] 18:42:00 Test Item Value Reference Range Interpretation Comments UA Nitrite (test code Negative (04/09/18 1:42 = UA Nitrite) PM) [facility] AND [id number] 18:42:00 Test Item Value Reference Range Interpretation Comments UA Leuk Est (test code Large *ABN*(04/09/18 = UA Leuk Est) 1:42 PM) [facility] AND [id number] 18:42:00 Test Item Value Reference Range Interpretation Comments UA WBC (test code = no gt See_Comment [Automa karla message] The UA WBC) system which ge nerated this result transmit karla reference range : <=5. The reference range was not used to interpr et this result as parul l/abnormal. [facility] AND [id number] 18:42:00 Test Item Value Reference Range Interpretation Comments UA RBC (test code = 125 See_Comment [Automa karla message] The UA RBC) system which ge nerated this result transmit karla reference range : <=2. The reference range was not used to interpr et this result as parul l/abnormal. [facility] AND [id number] 18:42:00 Test Item Value Reference Range Interpretation Comments UA Glucose (test code = UA Negative mg/dL Glucose) [facility] AND [id number] 18:42:00 Test Item Value Reference Range Interpretation Comments UA Ketones (test code = UA Negative mg/dL Ketones) [facility] AND [id number] 18:42:00 Test Item Value Reference Range Interpretation Comments UA Bili (test code = Negative *NA*(04/09/18 UA Bili) 1:42 PM) [facility] [id number] 18:42:00 Test Item Value Reference Range Interpretation Comments UA Bacteria (test code = UA Occasional /HPF Bacteria) [facility] [id number] 18:42:00 Test Item Value Reference Range Interpretation Comments UA Color (test code = Yellow *NA*(04/09/18 UA Color) 1:42 PM) [facility] [id number] 18:42:00 Test Item Value Reference Range Interpretation Comments UA Turbidity (test code Marked *ABN*(04/09/18 = UA Turbidity) 1:42 PM) [facility] [id number] 18:42:00 Test Item Value Reference Range Interpretation Comments UA Spec Grav (test code = UA Spec 1.013 1 Grav) [facility] [id number] 18:42:00 Test Item Value Reference Range Interpretation Comments UA pH (test code = UA pH) 5.5 1 5.0-8.0 [facility] [id number] 18:42:00 Test Item Value Reference Range Interpretation Comments UA Protein (test code = UA Protein) 100 mg/dL [facility] [id number] 18:42:00 Test Item Value Reference Range Interpretation Comments U Amph Scr (test code Negative *NA*(04/09/18 = U Amph Scr) 1:42 PM) [facility] [id number] 18:42:00 Test Item Value Reference Range Interpretation Comments U Cannab Scr (test Negative *NA*(04/09/18 code = U Cannab Scr) 1:42 PM) [facility] [id number] 18:42:00 Test Item Value Reference Range Interpretation Comments U Phencyclidine Scr (test Negative code = U Phencyclidine *NA*(04/09/18 1:42 Scr) PM) [facility] [id number] 18:42:00 Test Item Value Reference Range Interpretation Comments U Opiate Scr (test Positive *ABN*(04/09/18 code = U Opiate Scr) 1:42 PM) [facility] [id number] 18:42:00 Test Item Value Reference Range Interpretation Comments UDS Note (test code = See Note (7/14/18 1:42 UDS Note) PM) [facility] [id number] 18:42:00 Test Item Value Reference Range Interpretation Comments U Maureen Scr (test code Negative *NA*(04/09/18 = U Maureen Scr) 1:42 PM) [facility] [id number] 18:42:00 Test Item Value Reference Range Interpretation Comments U Cocaine Scr (test Negative *NA*(04/09/18 code = U Cocaine Scr) 1:42 PM) [facility] [id number] 18:42:00 Test Item Value Reference Range Interpretation Comments U Benzodiaz Scr (test Negative *NA*(04/09/18 code = U Benzodiaz Scr) 1:42 PM) [facility] [id number] 18:42:00 Test Item Value Reference Range Interpretation Comments UA Urobilinogen (test code = UA <=1.0 mg/dL 0.1-1.0 Urobilinogen) [facility] [id number] 18:42:00 Test Item Value Reference Range Interpretation Comments UA Sq Epi (test code = UA Sq Epi) None Seen [facility] [id number] 18:42:00 Test Item Value Reference Range Interpretation Comments UA Blood (test code = Large *ABN*(04/09/18 UA Blood) 1:42 PM) [facility] [id number] 18:42:00 Test Item Value Reference Range Interpretation Comments UA Nitrite (test code Negative (04/09/18 1:42 = UA Nitrite) PM) [facility] [id number] 18:42:00 Test Item Value Reference Range Interpretation Comments UA Leuk Est (test code Large *ABN*(04/09/18 = UA Leuk Est) 1:42 PM) [facility] [id number] 18:42:00 Test Item Value Reference Range Interpretation Comments UA WBC (test code = no gt See_Comment [Automa karla message] The UA WBC) system which ge nerated this result transmit karla reference range : <=5. The reference range was not used to interpr et this result as parul l/abnormal. [facility] [id number] 18:42:00 Test Item Value Reference Range Interpretation Comments UA RBC (test code = 125 See_Comment [Automa karla message] The UA RBC) system which ge nerated this result transmit karla reference range : <=2. The reference range was not used to interpr et this result as parul l/abnormal. [facility] [id number] 18:42:00 Test Item Value Reference Range Interpretation Comments UA Glucose (test code = UA Negative mg/dL Glucose) [facility] [id number] 18:42:00 Test Item Value Reference Range Interpretation Comments UA Ketones (test code = UA Negative mg/dL Ketones) [facility] [id number] 18:42:00 Test Item Value Reference Range Interpretation Comments UA Bili (test code = Negative *NA*(04/09/18 UA Bili) 1:42 PM) [facility] [id number] 18:42:00 Test Item Value Reference Range Interpretation Comments UA Bacteria (test code = UA Occasional /HPF Bacteria) [facility] [id number] 18:42:00 Test Item Value Reference Range Interpretation Comments UA Color (test code = Yellow *NA*(04/09/18 UA Color) 1:42 PM) [facility] [id number] 18:42:00 Test Item Value Reference Range Interpretation Comments UA Turbidity (test code Marked *ABN*(04/09/18 = UA Turbidity) 1:42 PM) [facility] [id number] 18:42:00 Test Item Value Reference Range Interpretation Comments UA Spec Grav (test code = UA Spec 1.013 1 Grav) [facility] [id number] 18:42:00 Test Item Value Reference Range Interpretation Comments UA pH (test code = UA pH) 5.5 1 5.0-8.0 [facility] [id number] 18:42:00 Test Item Value Reference Range Interpretation Comments UA Protein (test code = UA Protein) 100 mg/dL [facility] [id number] 18:42:00 Test Item Value Reference Range Interpretation Comments U Amph Scr (test code Negative *NA*(04/09/18 = U Amph Scr) 1:42 PM) [facility] [id number] 18:42:00 Test Item Value Reference Range Interpretation Comments U Cannab Scr (test Negative *NA*(04/09/18 code = U Cannab Scr) 1:42 PM) [facility] [id number] 18:42:00 Test Item Value Reference Range Interpretation Comments U Phencyclidine Scr (test Negative code = U Phencyclidine *NA*(04/09/18 1:42 Scr) PM) [facility] [id number] 18:42:00 Test Item Value Reference Range Interpretation Comments U Opiate Scr (test Positive *ABN*(04/09/18 code = U Opiate Scr) 1:42 PM) [facility] [id number] 18:42:00 Test Item Value Reference Range Interpretation Comments UDS Note (test code = See Note (04/09/18 1:42 UDS Note) PM) [facility] [id number] 18:42:00 Test Item Value Reference Range Interpretation Comments U Maureen Scr (test code Negative *NA*(04/09/18 = U Maureen Scr) 1:42 PM) [facility] [id number] 18:42:00 Test Item Value Reference Range Interpretation Comments U Cocaine Scr (test Negative *NA*(04/09/18 code = U Cocaine Scr) 1:42 PM) [facility] [id number] 18:42:00 Test Item Value Reference Range Interpretation Comments U Benzodiaz Scr (test Negative *NA*(04/09/18 code = U Benzodiaz Scr) 1:42 PM) [facility] [id number] 18:42:00 Test Item Value Reference Range Interpretation Comments UA Urobilinogen (test code = UA <=1.0 mg/dL 0.1-1.0 Urobilinogen) [facility] [id number] 18:42:00 Test Item Value Reference Range Interpretation Comments UA Sq Epi (test code = UA Sq Epi) None Seen [facility] [id number] 18:42:00 Test Item Value Reference Range Interpretation Comments UA Blood (test code = Large *ABN*(04/09/18 UA Blood) 1:42 PM) [facility] [id number] 18:42:00 Test Item Value Reference Range Interpretation Comments UA Nitrite (test code Negative (04/09/18 1:42 = UA Nitrite) PM) [facility] AND [id number] 18:42:00 Test Item Value Reference Range Interpretation Comments UA Leuk Est (test code Large *ABN*(04/09/18 = UA Leuk Est) 1:42 PM) [facility] AND [id number] 18:42:00 Test Item Value Reference Range Interpretation Comments UA WBC (test code = no gt See_Comment [Automa karla message] The UA WBC) system which ge nerated this result transmit karla reference range : <=5. The reference range was not used to interpr et this result as parul l/abnormal. [facility] AND [id number] 18:42:00 Test Item Value Reference Range Interpretation Comments UA RBC (test code = 125 See_Comment [Automa karla message] The UA RBC) system which ge nerated this result transmit karla reference range : <=2. The reference range was not used to interpr et this result as parul l/abnormal. [facility] AND [id number] 18:42:00 Test Item Value Reference Range Interpretation Comments UA Glucose (test code = UA Negative mg/dL Glucose) [facility] AND [id number] 18:42:00 Test Item Value Reference Range Interpretation Comments UA Ketones (test code = UA Negative mg/dL Ketones) [facility] AND [id number] 18:42:00 Test Item Value Reference Range Interpretation Comments UA Bili (test code = Negative *NA*(04/09/18 UA Bili) 1:42 PM) [facility] AND [id number] 18:42:00 Test Item Value Reference Range Interpretation Comments UA Bacteria (test code = UA Occasional /HPF Bacteria) [facility] AND [id number] 18:42:00 Test Item Value Reference Range Interpretation Comments UA Color (test code = Yellow *NA*(04/09/18 UA Color) 1:42 PM) [facility] AND [id number] 18:42:00 Test Item Value Reference Range Interpretation Comments UA Turbidity (test code Marked *ABN*(04/09/18 = UA Turbidity) 1:42 PM) [facility] AND [id number] 18:42:00 Test Item Value Reference Range Interpretation Comments UA Spec Grav (test code = UA Spec 1.013 1 Grav) [facility] AND [id number] 18:42:00 Test Item Value Reference Range Interpretation Comments UA pH (test code = UA pH) 5.5 1 5.0-8.0 [facility] AND [id number] 18:42:00 Test Item Value Reference Range Interpretation Comments UA Protein (test code = UA Protein) 100 mg/dL [id number] 10:37:00 Test Item Value Reference Range Interpretation Comments Basophils (test code = 0.2 See_Comment [Aut omated message] The Basophils) system which ge nerated this result tra nsmitted reference range : <=1.0. The reference r renu was not used to int erpret this result as normal/abnormal . [id number] 10:37:00 Test Item Value Reference Range Interpretation Comments Eosinophils (test code = 0.8 See_Comment [A utomated message] The Eosinophils) system which ge nerated this result tra nsmitted reference range : <=4.0. The reference r renu was not used to int erpret this result as normal/abnormal . [facility] [id number] 10:37:00 Test Item Value Reference Range Interpretation Comments Eosinophils # (test code 0.1 See_Comment [A utomated message] The = Eosinophils #) system whic h generated this result tra nsmitted reference range : <=0.5. The reference r renu was not used to int erpret this result as normal/abnormal . [facility] H[id number] 10:37:00 Test Item Value Reference Range Interpretation Comments Basophils (test code = 0.2 See_Comment [Aut omated message] The Basophils) system which ge nerated this result tra nsmitted reference range : <=1.0. The reference r renu was not used to int erpret this result as normal/abnormal . [facility] H[id number] 10:37:00 Test Item Value Reference Range Interpretation Comments Eosinophils (test code = 0.8 See_Comment [A utomated message] The Eosinophils) system which ge nerated this result tra nsmitted reference range : <=4.0. The reference r renu was not used to int erpret this result as normal/abnormal . [facility] H[id number] 10:37:00 Test Item Value Reference Range Interpretation Comments Eosinophils # (test code 0.1 See_Comment [A utomated message] The = Eosinophils #) system [facility] [employer] generated this result tra nsmitted reference range : <=0.5. The reference r renu was not used to int erpret this result as normal/abnormal . [facility] [id number] 10:37:00 Test Item Value Reference Range Interpretation Comments Basophils (test code = 0.2 See_Comment [Aut omated message] The Basophils) system which ge nerated this result tra nsmitted reference range : <=1.0. The reference r renu was not used to int erpret this result as normal/abnormal . [facility] H[id number] 10:37:00 Test Item Value Reference Range Interpretation Comments Eosinophils (test code = 0.8 See_Comment [A utomated message] The Eosinophils) system which ge nerated this result tra nsmitted reference range : <=4.0. The reference r renu was not used to int erpret this result as normal/abnormal . [facility] H[id number] 10:37:00 Test Item Value Reference Range Interpretation Comments Eosinophils # (test code 0.1 See_Comment [A utomated message] The = Eosinophils #) system [facility] [employer] generated this result tra nsmitted reference range : <=0.5. The reference r renu was not used to int erpret this result as normal/abnormal . [facility] H[id number] 10:37:00 Test Item Value Reference Range Interpretation Comments Basophils (test code = 0.2 See_Comment [Aut omated message] The Basophils) system which ge nerated this result tra nsmitted reference range : <=1.0. The reference r renu was not used to int erpret this result as normal/abnormal . [facility] H[id number] 10:37:00 Test Item Value Reference Range Interpretation Comments Eosinophils (test code = 0.8 See_Comment [A utomated message] The Eosinophils) system which ge nerated this result tra nsmitted reference range : <=4.0. The reference r renu was not used to int erpret this result as normal/abnormal . [facility] H[id number] 10:37:00 Test Item Value Reference Range Interpretation Comments Eosinophils # (test code 0.1 See_Comment [A utomated message] The = Eosinophils #) system [employer] generated this result tra nsmitted reference range : <=0.5. The reference r renu was not used to int erpret this result as normal/abnormal . [facility] Ho[id number] 10:37:00 Test Item Value Reference Range Interpretation Comments Basophils (test code = 0.2 See_Comment [Aut omated message] The Basophils) system which ge nerated this result tra nsmitted reference range : <=1.0. The reference r renu was not used to int erpret this result as normal/abnormal . [facility] Hos[id number] 10:37:00 Test Item Value Reference Range Interpretation Comments Eosinophils (test code = 0.8 See_Comment [A utomated message] The Eosinophils) system which ge nerated this result tra nsmitted reference range : <=4.0. The reference r renu was not used to int erpret this result as normal/abnormal . [facility] HospitalTkuszcgANQESZBJRV5351-03-05 10:37:00 Test Item Value Reference Range Interpretation Comments Eosinophils # (test code 0.1 See_Comment [A utomated message] The = Eosinophils #) system [employer] generated this result tra nsmitted reference range : <=0.5. The reference r renu was not used to int erpret this result as normal/abnormal . [facility] H[id number] 10:37:00 Test Item Value Reference Range Interpretation Comments Basophils (test code = 0.2 See_Comment [Aut omated message] The Basophils) system which ge nerated this result tra nsmitted reference range : <=1.0. The reference r renu was not used to int erpret this result as normal/abnormal . [facility] Hospit[id number] 10:37:00 Test Item Value Reference Range Interpretation Comments Eosinophils (test code = 0.8 See_Comment [A utomated message] The Eosinophils) system which ge nerated this result tra nsmitted reference range : <=4.0. The reference r renu was not used to int erpret this result as normal/abnormal . [facility] HospitalOdrnmtwZTRHLVWVVU1011-03-08 10:37:00 Test Item Value Reference Range Interpretation Comments Eosinophils # (test code 0.1 See_Comment [A utomated message] The = Eosinophils #) system [facility] [employer] generated this result tra nsmitted reference range : <=0.5. The reference r renu was not used to int erpret this result as normal/abnormal . [facility] Hos[id number] 10:37:00 Test Item Value Reference Range Interpretation Comments Basophils (test code = 0.2 See_Comment [Aut omated message] The Basophils) system which ge nerated this result tra nsmitted reference range : <=1.0. The reference r renu was not used to int erpret this result as normal/abnormal . [facility] Hospit[id number] 10:37:00 Test Item Value Reference Range Interpretation Comments Eosinophils (test code = 0.8 See_Comment [A utomated message] The Eosinophils) system which ge nerated this result tra nsmitted reference range : <=4.0. The reference r renu was not used to int erpret this result as normal/abnormal . [id number] 10:37:00 Test Item Value Reference Range Interpretation Comments Eosinophils # (test code 0.1 See_Comment [A utomated message] The = Eosinophils #) system [facility] [employer] generated this result tra nsmitted reference range : <=0.5. The reference r renu was not used to int erpret this result as normal/abnormal . [facility] H[id number] 10:37:00 Test Item Value Reference Range Interpretation Comments Basophils (test code = 0.2 See_Comment [Aut omated message] The Basophils) system which ge nerated this result tra nsmitted reference range : <=1.0. The reference r renu was not used to int erpret this result as normal/abnormal . [facility] Hospit[id number] 10:37:00 Test Item Value Reference Range Interpretation Comments Eosinophils (test code = 0.8 See_Comment [A utomated message] The Eosinophils) system which ge nerated this result tra nsmitted reference range : <=4.0. The reference r renu was not used to int erpret this result as normal/abnormal . [facility] H[id number] 10:37:00 Test Item Value Reference Range Interpretation Comments Eosinophils # (test code 0.1 See_Comment [A utomated message] The = Eosinophils #) system [employer] generated this result tra nsmitted reference range : <=0.5. The reference r renu was not used to int erpret this result as normal/abnormal . [facility] Hospit[id number] 10:37:00 Test Item Value Reference Range Interpretation Comments Basophils (test code = 0.2 See_Comment [Aut omated message] The Basophils) system which ge nerated this result tra nsmitted reference range : <=1.0. The reference r renu was not used to int erpret this result as normal/abnormal . [facility] Hospit[id number] 10:37:00 Test Item Value Reference Range Interpretation Comments Eosinophils (test code = 0.8 See_Comment [A utomated message] The Eosinophils) system which ge nerated this result tra nsmitted reference range : <=4.0. The reference r renu was not used to int erpret this result as normal/abnormal . [facility] Hospit[id number] 10:37:00 Test Item Value Reference Range Interpretation Comments Eosinophils # (test code 0.1 See_Comment [A utomated message] The = Eosinophils #) system [employer] generated this result tra nsmitted reference range : <=0.5. The reference r renu was not used to int erpret this result as normal/abnormal . [facility] H[id number] 10:37:00 Test Item Value Reference Range Interpretation Comments Basophils (test code = 0.2 See_Comment [Aut omated message] The Basophils) system which ge nerated this result tra nsmitted reference range : <=1.0. The reference r renu was not used to int erpret this result as normal/abnormal . [facility] HospitalEpmubpnYCYDKNNSDR1099-74-29 10:37:00 Test Item Value Reference Range Interpretation Comments Eosinophils (test code = 0.8 See_Comment [A utomated message] The Eosinophils) system which ge nerated this result tra nsmitted reference range : <=4.0. The reference r renu was not used to int erpret this result as normal/abnormal . [facility] H[id number] 10:37:00 Test Item Value Reference Range Interpretation Comments Eosinophils # (test code 0.1 See_Comment [A utomated message] The = Eosinophils #) system [employer] generated this result tra nsmitted reference range : <=0.5. The reference r renu was not used to int erpret this result as normal/abnormal . [facility] H[id number] 10:37:00 Test Item Value Reference Range Interpretation Comments Basophils (test code = 0.2 See_Comment [Aut omated message] The Basophils) system which ge nerated this result tra nsmitted reference range : <=1.0. The reference r renu was not used to int erpret this result as normal/abnormal . [facility] HospitalDbmxzkqHPPZAWLPSF7413-96-03 10:37:00 Test Item Value Reference Range Interpretation Comments Eosinophils (test code = 0.8 See_Comment [A utomated message] The Eosinophils) system which ge nerated this result tra nsmitted reference range : <=4.0. The reference r renu was not used to int erpret this result as normal/abnormal . [facility] Hos[id number] 10:37:00 Test Item Value Reference Range Interpretation Comments Eosinophils # (test code 0.1 See_Comment [A utomated message] The = Eosinophils #) system [employer] generated this result tra nsmitted reference range : <=0.5. The reference r renu was not used to int erpret this result as normal/abnormal . [facility] AND [id number] 05:20:00 Test Item Value Reference Range Interpretation Comments UA Hyal Cast 6-10 (04/08/18 See_Comment [Automated me ssage] (test code = UA 12:20 AM) The system w [facility] Hyal [employer]) generated this result transmitted ref erence range: <=2. The reference range was not used to int erpret this result as normal/abnormal . [facility] AND [id number] 05:20:00 Test Item Value Reference Range Interpretation Comments UA Coarse Gran (test code = UA 6-10 /LPF Coarse Gran) [facility] AND [id number] 05:20:00 Test Item Value Reference Range Interpretation Comments UA Color (test code = Yellow *NA*(04/08/18 UA Color) 12:20 AM) [facility] AND [id number] 05:20:00 Test Item Value Reference Range Interpretation Comments UA Glucose (test code Negative (04/08/18 12:20 = UA Glucose) AM) [facility] AND [id number] 05:20:00 Test Item Value Reference Range Interpretation Comments UA Protein (test code = UA Protein) 30 mg/dL [facility] AND [id number] 05:20:00 Test Item Value Reference Range Interpretation Comments UA pH (test code = UA pH) 5.5 1 5.0-8.0 [facility] AND [id number] 05:20:00 Test Item Value Reference Range Interpretation Comments UA Spec Grav (test code = UA Spec 1.025 1 Grav) [facility] AND [id number] 05:20:00 Test Item Value Reference Range Interpretation Comments UA Turbidity (test code Slight Cloudy = UA Turbidity) (04/08/18 12:20 AM) [facility] AND [id number] 05:20:00 Test Item Value Reference Range Interpretation Comments UA Nitrite (test code Negative (04/08/18 12:20 = UA Nitrite) AM) [facility] AND [id number] 05:20:00 Test Item Value Reference Range Interpretation Comments UA Urobilinogen (test code = UA 0.2 0.1-1.0 Urobilinogen) [facility] AND [id number] 05:20:00 Test Item Value Reference Range Interpretation Comments UA Blood (test code = Large *ABN*(04/08/18 UA Blood) 12:20 AM) [facility] AND [id number] 05:20:00 Test Item Value Reference Range Interpretation Comments UA Bili (test code = Negative *NA*(04/08/18 UA Bili) 12:20 AM) [facility] AND [id number] 05:20:00 Test Item Value Reference Range Interpretation Comments UA Ketones (test code Negative *NA*(04/08/18 = UA Ketones) 12:20 AM) [facility] AND [id number] 05:20:00 Test Item Value Reference Range Interpretation Comments UA Bacteria (test code = UA Few /HPF Bacteria) [facility] AND [id number] 05:20:00 Test Item Value Reference Range Interpretation Comments UA RBC (test code 21-50 /HPF See_Comment [Automate d message] The = UA RBC) system which ge nerated this result tra nsmitted reference range : <=2. The reference range was not used to interpr et this result as normal/abnormal . [facility] [id number] 05:20:00 Test Item Value Reference Range Interpretation Comments UA WBC (test code = UA WBC) 1-3 [facility] AND [id number] 05:20:00 Test Item Value Reference Range Interpretation Comments UA Sq Epi (test code = UA Sq Occasional /LPF Epi) [facility] AND [id number] 05:20:00 Test Item Value Reference Range Interpretation Comments UA Leuk Est (test Negative (04/08/18 12:20 code = UA Leuk Est) AM) [facility] AND [id number] 05:20:00 Test Item Value Reference Range Interpretation Comments UA Hyal Cast 6-10 (04/08/18 See_Comment [Automated me ssage] (test code = UA 12:20 AM) The system w [facility] [employer]) generated this result transmitted ref erence range: <=2. The reference range was not used to int erpret this result as normal/abnormal . [facility] AND [id number] 05:20:00 Test Item Value Reference Range Interpretation Comments UA Coarse Gran (test code = UA 6-10 /LPF Coarse Gran) [facility] AND [id number] 05:20:00 Test Item Value Reference Range Interpretation Comments UA Color (test code = Yellow *NA*(04/08/18 UA Color) 12:20 AM) [facility] AND [id number] 05:20:00 Test Item Value Reference Range Interpretation Comments UA Glucose (test code Negative (04/08/18 12:20 = UA Glucose) AM) [facility] AND [id number] 05:20:00 Test Item Value Reference Range Interpretation Comments UA Protein (test code = UA Protein) 30 mg/dL [facility] AND [id number] 05:20:00 Test Item Value Reference Range Interpretation Comments UA pH (test code = UA pH) 5.5 1 5.0-8.0 [facility] AND [id number] 05:20:00 Test Item Value Reference Range Interpretation Comments UA Spec Grav (test code = UA Spec 1.025 1 Grav) [facility] AND [id number] 05:20:00 Test Item Value Reference Range Interpretation Comments UA Turbidity (test code Slight Cloudy = UA Turbidity) (04/08/18 12:20 AM) [facility] AND [id number] 05:20:00 Test Item Value Reference Range Interpretation Comments UA Nitrite (test code Negative (04/08/18 12:20 = UA Nitrite) AM) [facility] AND [id number] 05:20:00 Test Item Value Reference Range Interpretation Comments UA Urobilinogen (test code = UA 0.2 0.1-1.0 Urobilinogen) [facility] AND [id number] 05:20:00 Test Item Value Reference Range Interpretation Comments UA Blood (test code = Large *ABN*(04/08/18 UA Blood) 12:20 AM) [facility] AND [id number] 05:20:00 Test Item Value Reference Range Interpretation Comments UA Bili (test code = Negative *NA*(04/08/18 UA Bili) 12:20 AM) [facility] AND [id number] 05:20:00 Test Item Value Reference Range Interpretation Comments UA Ketones (test code Negative *NA*(04/08/18 = UA Ketones) 12:20 AM) [facility] AND [id number] 05:20:00 Test Item Value Reference Range Interpretation Comments UA Bacteria (test code = UA Few /HPF Bacteria) [facility] AND [id number] 05:20:00 Test Item Value Reference Range Interpretation Comments UA RBC (test code 21-50 /HPF See_Comment [Automate d message] The = UA RBC) system which ge nerated this result tra nsmitted reference range : <=2. The reference range was not used to interpr et this result as normal/abnormal . [facility] AND [id number] 05:20:00 Test Item Value Reference Range Interpretation Comments UA WBC (test code = UA WBC) 1-3 [facility] AND [id number] 05:20:00 Test Item Value Reference Range Interpretation Comments UA Sq Epi (test code = UA Sq Occasional /LPF Epi) [facility] AND [id number] 05:20:00 Test Item Value Reference Range Interpretation Comments UA Leuk Est (test Negative (04/08/18 12:20 code = UA Leuk Est) AM) [facility] AND [id number] 05:20:00 Test Item Value Reference Range Interpretation Comments UA Hyal Cast 6-10 (04/08/18 See_Comment [Automated me ssage] (test code = UA 12:20 AM) The system w [facility] [employer]) generated this result transmitted ref erence range: <=2. The reference range was not used to int erpret this result as normal/abnormal . [facility] AND [id number] 05:20:00 Test Item Value Reference Range Interpretation Comments UA Coarse Gran (test code = UA 6-10 /LPF Coarse Gran) [facility] AND [id number] 05:20:00 Test Item Value Reference Range Interpretation Comments UA Color (test code = Yellow *NA*(04/08/18 UA Color) 12:20 AM) [facility] AND [id number] 05:20:00 Test Item Value Reference Range Interpretation Comments UA Glucose (test code Negative (04/08/18 12:20 = UA Glucose) AM) [facility] AND [id number] 05:20:00 Test Item Value Reference Range Interpretation Comments UA Protein (test code = UA Protein) 30 mg/dL [facility] AND [id number] 05:20:00 Test Item Value Reference Range Interpretation Comments UA pH (test code = UA pH) 5.5 1 5.0-8.0 [facility] AND [id number] 05:20:00 Test Item Value Reference Range Interpretation Comments UA Spec Grav (test code = UA Spec 1.025 1 Grav) [facility] AND [id number] 05:20:00 Test Item Value Reference Range Interpretation Comments UA Turbidity (test code Slight Cloudy = UA Turbidity) (04/08/18 12:20 AM) [facility] AND [id number] 05:20:00 Test Item Value Reference Range Interpretation Comments UA Nitrite (test code Negative (04/08/18 12:20 = UA Nitrite) AM) [facility] [id number] 05:20:00 Test Item Value Reference Range Interpretation Comments UA Urobilinogen (test code = UA 0.2 0.1-1.0 Urobilinogen) [facility] [id number] 05:20:00 Test Item Value Reference Range Interpretation Comments UA Blood (test code = Large *ABN*(04/08/18 UA Blood) 12:20 AM) [facility] [id number] 05:20:00 Test Item Value Reference Range Interpretation Comments UA Bili (test code = Negative *NA*(04/08/18 UA Bili) 12:20 AM) [facility] [id number] 05:20:00 Test Item Value Reference Range Interpretation Comments UA Ketones (test code Negative *NA*(04/08/18 = UA Ketones) 12:20 AM) [facility] [id number] 05:20:00 Test Item Value Reference Range Interpretation Comments UA Bacteria (test code = UA Few /HPF Bacteria) [facility] [id number] 05:20:00 Test Item Value Reference Range Interpretation Comments UA RBC (test code 21-50 /HPF See_Comment [Automate d message] The = UA RBC) system which ge nerated this result tra nsmitted reference range : <=2. The reference range was not used to interpr et this result as normal/abnormal . [facility] [id number] 05:20:00 Test Item Value Reference Range Interpretation Comments UA WBC (test code = UA WBC) 1-3 [facility] [id number] 05:20:00 Test Item Value Reference Range Interpretation Comments UA Sq Epi (test code = UA Sq Occasional /LPF Epi) [facility] [id number] 05:20:00 Test Item Value Reference Range Interpretation Comments UA Leuk Est (test Negative (04/08/18 12:20 code = UA Leuk Est) AM) [facility] [id number] 05:20:00 Test Item Value Reference Range Interpretation Comments UA Hyal Cast 6-10 (04/08/18 See_Comment [Automated me ssage] (test code = UA 12:20 AM) The system w hich [employer]) generated this result transmitted ref erence range: <=2. The reference range was not used to int erpret this result as normal/abnormal . [facility] AND [id number] 05:20:00 Test Item Value Reference Range Interpretation Comments UA Coarse Gran (test code = UA 6-10 /LPF Coarse Gran) [facility] AND [id number] 05:20:00 Test Item Value Reference Range Interpretation Comments UA Color (test code = Yellow *NA*(04/08/18 UA Color) 12:20 AM) [facility] AND [id number] 05:20:00 Test Item Value Reference Range Interpretation Comments UA Glucose (test code Negative (04/08/18 12:20 = UA Glucose) AM) [facility] AND [id number] 05:20:00 Test Item Value Reference Range Interpretation Comments UA Protein (test code = UA Protein) 30 mg/dL [facility] AND [id number] 05:20:00 Test Item Value Reference Range Interpretation Comments UA pH (test code = UA pH) 5.5 1 5.0-8.0 [facility] AND [id number] 05:20:00 Test Item Value Reference Range Interpretation Comments UA Spec Grav (test code = UA Spec 1.025 1 Grav) [facility] AND [id number] 05:20:00 Test Item Value Reference Range Interpretation Comments UA Turbidity (test code Slight Cloudy = UA Turbidity) (04/08/18 12:20 AM) [facility] AND [id number] 05:20:00 Test Item Value Reference Range Interpretation Comments UA Nitrite (test code Negative (04/08/18 12:20 = UA Nitrite) AM) [facility] AND [id number] 05:20:00 Test Item Value Reference Range Interpretation Comments UA Urobilinogen (test code = UA 0.2 0.1-1.0 Urobilinogen) [facility] AND [id number] 05:20:00 Test Item Value Reference Range Interpretation Comments UA Blood (test code = Large *ABN*(04/08/18 UA Blood) 12:20 AM) [facility] AND [id number] 05:20:00 Test Item Value Reference Range Interpretation Comments UA Bili (test code = Negative *NA*(04/08/18 UA Bili) 12:20 AM) [facility] AND [id number] 05:20:00 Test Item Value Reference Range Interpretation Comments UA Ketones (test code Negative *NA*(04/08/18 = UA Ketones) 12:20 AM) [facility] AND [id number] 05:20:00 Test Item Value Reference Range Interpretation Comments UA Bacteria (test code = UA Few /HPF Bacteria) [facility] AND [id number] 05:20:00 Test Item Value Reference Range Interpretation Comments UA RBC (test code 21-50 /HPF See_Comment [Automate d message] The = UA RBC) system which ge nerated this result tra nsmitted reference range : <=2. The reference range was not used to interpr et this result as normal/abnormal . [facility] AND [id number] 05:20:00 Test Item Value Reference Range Interpretation Comments UA WBC (test code = UA WBC) 1-3 [facility] AND [id number] 05:20:00 Test Item Value Reference Range Interpretation Comments UA Sq Epi (test code = UA Sq Occasional /LPF Epi) [facility] AND [id number] 05:20:00 Test Item Value Reference Range Interpretation Comments UA Leuk Est (test Negative (04/08/18 12:20 code = UA Leuk Est) AM) [facility] AND [id number] 05:20:00 Test Item Value Reference Range Interpretation Comments UA Hyal Cast 6-10 (04/08/18 See_Comment [Automated me ssage] (test code = UA 12:20 AM) The system w hich [employer]) generated this result transmitted ref erence range: <=2. The reference range was not used to int erpret this result as normal/abnormal . [facility] AND [id number] 05:20:00 Test Item Value Reference Range Interpretation Comments UA Coarse Gran (test code = UA 6-10 /LPF Coarse Gran) [facility] AND [id number] 05:20:00 Test Item Value Reference Range Interpretation Comments UA Color (test code = Yellow *NA*(7/13/18 UA Color) 12:20 AM) [facility] AND [id number] 05:20:00 Test Item Value Reference Range Interpretation Comments UA Glucose (test code Negative (04/08/18 12:20 = UA Glucose) AM) [facility] AND [id number] 05:20:00 Test Item Value Reference Range Interpretation Comments UA Protein (test code = UA Protein) 30 mg/dL [facility] AND [id number] 05:20:00 Test Item Value Reference Range Interpretation Comments UA pH (test code = UA pH) 5.5 1 5.0-8.0 [facility] AND [id number] 05:20:00 Test Item Value Reference Range Interpretation Comments UA Spec Grav (test code = UA Spec 1.025 1 Grav) [facility] AND [id number] 05:20:00 Test Item Value Reference Range Interpretation Comments UA Turbidity (test code Slight Cloudy = UA Turbidity) (04/08/18 12:20 AM) [facility] AND [id number] 05:20:00 Test Item Value Reference Range Interpretation Comments UA Nitrite (test code Negative (04/08/18 12:20 = UA Nitrite) AM) [facility] AND [id number] 05:20:00 Test Item Value Reference Range Interpretation Comments UA Urobilinogen (test code = UA 0.2 0.1-1.0 Urobilinogen) [facility] AND [id number] 05:20:00 Test Item Value Reference Range Interpretation Comments UA Blood (test code = Large *ABN*(04/08/18 UA Blood) 12:20 AM) [facility] AND [id number] 05:20:00 Test Item Value Reference Range Interpretation Comments UA Bili (test code = Negative *NA*(04/08/18 UA Bili) 12:20 AM) [facility] AND [id number] 05:20:00 Test Item Value Reference Range Interpretation Comments UA Ketones (test code Negative *NA*(04/08/18 = UA Ketones) 12:20 AM) [facility] AND [id number] 05:20:00 Test Item Value Reference Range Interpretation Comments UA Bacteria (test code = UA Few /HPF Bacteria) [facility] AND [id number] 05:20:00 Test Item Value Reference Range Interpretation Comments UA RBC (test code 21-50 /HPF See_Comment [Automate d message] The = UA RBC) system which ge nerated this result tra nsmitted reference range : <=2. The reference range was not used to interpr et this result as normal/abnormal . [facility] AND [id number] 05:20:00 Test Item Value Reference Range Interpretation Comments UA WBC (test code = UA WBC) 1-3 [facility] AND [id number] 05:20:00 Test Item Value Reference Range Interpretation Comments UA Sq Epi (test code = UA Sq Occasional /LPF Epi) [facility] AND [id number] 05:20:00 Test Item Value Reference Range Interpretation Comments UA Leuk Est (test Negative (04/08/18 12:20 code = UA Leuk Est) AM) [facility] AND [id number] 05:20:00 Test Item Value Reference Range Interpretation Comments UA Hyal Cast 6-10 (04/08/18 See_Comment [Automated me ssage] (test code = UA 12:20 AM) The system w hich [employer]) generated this result transmitted ref erence range: <=2. The reference range was not used to int erpret this result as normal/abnormal . [facility] AND [id number] 05:20:00 Test Item Value Reference Range Interpretation Comments UA Coarse Gran (test code = UA 6-10 /LPF Coarse Gran) [facility] AND [id number] 05:20:00 Test Item Value Reference Range Interpretation Comments UA Color (test code = Yellow *NA*(04/08/18 UA Color) 12:20 AM) [facility] AND [id number] 05:20:00 Test Item Value Reference Range Interpretation Comments UA Glucose (test code Negative (04/08/18 12:20 = UA Glucose) AM) [facility] AND [id number] 05:20:00 Test Item Value Reference Range Interpretation Comments UA Protein (test code = UA Protein) 30 mg/dL [facility] AND [id number] 05:20:00 Test Item Value Reference Range Interpretation Comments UA pH (test code = UA pH) 5.5 1 5.0-8.0 [facility] AND [id number] 05:20:00 Test Item Value Reference Range Interpretation Comments UA Spec Grav (test code = UA Spec 1.025 1 Grav) [facility] AND [id number] 05:20:00 Test Item Value Reference Range Interpretation Comments UA Turbidity (test code Slight Cloudy = UA Turbidity) (04/08/18 12:20 AM) [facility] AND [id number] 05:20:00 Test Item Value Reference Range Interpretation Comments UA Nitrite (test code Negative (04/08/18 12:20 = UA Nitrite) AM) [facility] AND [id number] 05:20:00 Test Item Value Reference Range Interpretation Comments UA Urobilinogen (test code = UA 0.2 0.1-1.0 Urobilinogen) [facility] AND [id number] 05:20:00 Test Item Value Reference Range Interpretation Comments UA Blood (test code = Large *ABN*(04/08/18 UA Blood) 12:20 AM) [facility] AND [id number] 05:20:00 Test Item Value Reference Range Interpretation Comments UA Bili (test code = Negative *NA*(04/08/18 UA Bili) 12:20 AM) [facility] AND [id number] 05:20:00 Test Item Value Reference Range Interpretation Comments UA Ketones (test code Negative *NA*(04/08/18 = UA Ketones) 12:20 AM) [facility] AND [id number] 05:20:00 Test Item Value Reference Range Interpretation Comments UA Bacteria (test code = UA Few /HPF Bacteria) [facility] AND [id number] 05:20:00 Test Item Value Reference Range Interpretation Comments UA RBC (test code 21-50 /HPF See_Comment [Automate d message] The = UA RBC) system which ge nerated this result tra nsmitted reference range : <=2. The reference range was not used to interpr et this result as normal/abnormal . [facility] AND [id number] 05:20:00 Test Item Value Reference Range Interpretation Comments UA WBC (test code = UA WBC) 1-3 [facility] AND [id number] 05:20:00 Test Item Value Reference Range Interpretation Comments UA Sq Epi (test code = UA Sq Occasional /LPF Epi) [facility] AND [id number] 05:20:00 Test Item Value Reference Range Interpretation Comments UA Leuk Est (test Negative (04/08/18 12:20 code = UA Leuk Est) AM) [facility] AND [id number] 05:20:00 Test Item Value Reference Range Interpretation Comments UA Hyal Cast 6-10 (04/08/18 See_Comment [Automated me ssage] (test code = UA 12:20 AM) The system w [employer]) generated this result transmitted ref erence range: <=2. The reference range was not used to int erpret this result as normal/abnormal . [facility] AND [id number] 05:20:00 Test Item Value Reference Range Interpretation Comments UA Coarse Gran (test code = UA 6-10 /LPF Coarse Gran) [facility] AND [id number] 05:20:00 Test Item Value Reference Range Interpretation Comments UA Color (test code = Yellow *NA*(04/08/18 UA Color) 12:20 AM) [facility] AND [id number] 05:20:00 Test Item Value Reference Range Interpretation Comments UA Glucose (test code Negative (04/08/18 12:20 = UA Glucose) AM) [facility] AND [id number] 05:20:00 Test Item Value Reference Range Interpretation Comments UA Protein (test code = UA Protein) 30 mg/dL [facility] AND [id number] 05:20:00 Test Item Value Reference Range Interpretation Comments UA pH (test code = UA pH) 5.5 1 5.0-8.0 [facility] AND [id number] 05:20:00 Test Item Value Reference Range Interpretation Comments UA Spec Grav (test code = UA Spec 1.025 1 Grav) [facility] AND [id number] 05:20:00 Test Item Value Reference Range Interpretation Comments UA Turbidity (test code Slight Cloudy = UA Turbidity) (04/08/18 12:20 AM) [facility] AND [id number] 05:20:00 Test Item Value Reference Range Interpretation Comments UA Nitrite (test code Negative (04/08/18 12:20 = UA Nitrite) AM) [facility] AND [id number] 05:20:00 Test Item Value Reference Range Interpretation Comments UA Urobilinogen (test code = UA 0.2 0.1-1.0 Urobilinogen) [facility] AND [id number] 05:20:00 Test Item Value Reference Range Interpretation Comments UA Blood (test code = Large *ABN*(04/08/18 UA Blood) 12:20 AM) [facility] AND [id number] 05:20:00 Test Item Value Reference Range Interpretation Comments UA Bili (test code = Negative *NA*(04/08/18 UA Bili) 12:20 AM) [facility] AND [id number] 05:20:00 Test Item Value Reference Range Interpretation Comments UA Ketones (test code Negative *NA*(04/08/18 = UA Ketones) 12:20 AM) [facility] AND [id number] 05:20:00 Test Item Value Reference Range Interpretation Comments UA Bacteria (test code = UA Few /HPF Bacteria) [facility] AND [id number] 05:20:00 Test Item Value Reference Range Interpretation Comments UA RBC (test code 21-50 /HPF See_Comment [Automate d message] The = UA RBC) system which ge nerated this result tra nsmitted reference range : <=2. The reference range was not used to interpr et this result as normal/abnormal . [facility] AND [id number] 05:20:00 Test Item Value Reference Range Interpretation Comments UA WBC (test code = UA WBC) 1-3 [facility] AND [id number] 05:20:00 Test Item Value Reference Range Interpretation Comments UA Sq Epi (test code = UA Sq Occasional /LPF Epi) [facility] AND [id number] 05:20:00 Test Item Value Reference Range Interpretation Comments UA Leuk Est (test Negative (04/08/18 12:20 code = UA Leuk Est) AM) [facility] AND [id number] 05:20:00 Test Item Value Reference Range Interpretation Comments UA Hyal Cast 6-10 (04/08/18 See_Comment [Automated me ssage] (test code = UA 12:20 AM) The system [employer]) generated this result transmitted ref erence range: <=2. The reference range was not used to int erpret this result as normal/abnormal . [facility] AND [id number] 05:20:00 Test Item Value Reference Range Interpretation Comments UA Coarse Gran (test code = UA 6-10 /LPF Coarse Gran) [facility] AND [id number] 05:20:00 Test Item Value Reference Range Interpretation Comments UA Color (test code = Yellow *NA*(04/08/18 UA Color) 12:20 AM) [facility] AND [id number] 05:20:00 Test Item Value Reference Range Interpretation Comments UA Glucose (test code Negative (04/08/18 12:20 = UA Glucose) AM) [facility] AND [id number] 05:20:00 Test Item Value Reference Range Interpretation Comments UA Protein (test code = UA Protein) 30 mg/dL [facility] AND [id number] 05:20:00 Test Item Value Reference Range Interpretation Comments UA pH (test code = UA pH) 5.5 1 5.0-8.0 [facility] AND [id number] 05:20:00 Test Item Value Reference Range Interpretation Comments UA Spec Grav (test code = UA Spec 1.025 1 Grav) [facility] AND [id number] 05:20:00 Test Item Value Reference Range Interpretation Comments UA Turbidity (test code Slight Cloudy = UA Turbidity) (04/08/18 12:20 AM) [facility] AND [id number] 05:20:00 Test Item Value Reference Range Interpretation Comments UA Nitrite (test code Negative (04/08/18 12:20 = UA Nitrite) AM) [facility] AND [id number] 05:20:00 Test Item Value Reference Range Interpretation Comments UA Urobilinogen (test code = UA 0.2 0.1-1.0 Urobilinogen) [facility] AND [id number] 05:20:00 Test Item Value Reference Range Interpretation Comments UA Blood (test code = Large *ABN*(04/08/18 UA Blood) 12:20 AM) [facility] AND [id number] 05:20:00 Test Item Value Reference Range Interpretation Comments UA Bili (test code = Negative *NA*(04/08/18 UA Bili) 12:20 AM) [facility] AND [id number] 05:20:00 Test Item Value Reference Range Interpretation Comments UA Ketones (test code Negative *NA*(04/08/18 = UA Ketones) 12:20 AM) [facility] AND [id number] 05:20:00 Test Item Value Reference Range Interpretation Comments UA Bacteria (test code = UA Few /HPF Bacteria) [facility] AND [id number] 05:20:00 Test Item Value Reference Range Interpretation Comments UA RBC (test code 21-50 /HPF See_Comment [Automate d message] The = UA RBC) system which ge nerated this result tra nsmitted reference range : <=2. The reference range was not used to interpr et this result as normal/abnormal . [facility] AND [id number] 05:20:00 Test Item Value Reference Range Interpretation Comments UA WBC (test code = UA WBC) 1-3 [facility] AND [id number] 05:20:00 Test Item Value Reference Range Interpretation Comments UA Sq Epi (test code = UA Sq Occasional /LPF Epi) [facility] AND [id number] 05:20:00 Test Item Value Reference Range Interpretation Comments UA Leuk Est (test Negative (04/08/18 12:20 code = UA Leuk Est) AM) [facility] AND [id number] 05:20:00 Test Item Value Reference Range Interpretation Comments UA Hyal Cast 6-10 (04/08/18 See_Comment [Automated me ssage] (test code = UA 12:20 AM) The system w hich [employer]) generated this result transmitted ref erence range: <=2. The reference range was not used to int erpret this result as normal/abnormal . [facility] AND [id number] 05:20:00 Test Item Value Reference Range Interpretation Comments UA Coarse Gran (test code = UA 6-10 /LPF Coarse Gran) [facility] AND [id number] 05:20:00 Test Item Value Reference Range Interpretation Comments UA Color (test code = Yellow *NA*(04/08/18 UA Color) 12:20 AM) [facility] AND [id number] 05:20:00 Test Item Value Reference Range Interpretation Comments UA Glucose (test code Negative (04/08/18 12:20 = UA Glucose) AM) [facility] AND [id number] 05:20:00 Test Item Value Reference Range Interpretation Comments UA Protein (test code = UA Protein) 30 mg/dL [facility] AND [id number] 05:20:00 Test Item Value Reference Range Interpretation Comments UA pH (test code = UA pH) 5.5 1 5.0-8.0 [facility] AND [id number] 05:20:00 Test Item Value Reference Range Interpretation Comments UA Spec Grav (test code = UA Spec 1.025 1 Grav) [facility] AND [id number] 05:20:00 Test Item Value Reference Range Interpretation Comments UA Turbidity (test code Slight Cloudy = UA Turbidity) (04/08/18 12:20 AM) [facility] AND [id number] 05:20:00 Test Item Value Reference Range Interpretation Comments UA Nitrite (test code Negative (04/08/18 12:20 = UA Nitrite) AM) [facility] AND [id number] 05:20:00 Test Item Value Reference Range Interpretation Comments UA Urobilinogen (test code = UA 0.2 0.1-1.0 Urobilinogen) [facility] AND [id number] 05:20:00 Test Item Value Reference Range Interpretation Comments UA Blood (test code = Large *ABN*(04/08/18 UA Blood) 12:20 AM) [facility] AND [id number] 05:20:00 Test Item Value Reference Range Interpretation Comments UA Bili (test code = Negative *NA*(04/08/18 UA Bili) 12:20 AM) [facility] AND [id number] 05:20:00 Test Item Value Reference Range Interpretation Comments UA Ketones (test code Negative *NA*(04/08/18 = UA Ketones) 12:20 AM) [facility] AND [id number] 05:20:00 Test Item Value Reference Range Interpretation Comments UA Bacteria (test code = UA Few /HPF Bacteria) [facility] AND [id number] 05:20:00 Test Item Value Reference Range Interpretation Comments UA RBC (test code 21-50 /HPF See_Comment [Automate d message] The = UA RBC) system which ge nerated this result tra nsmitted reference range : <=2. The reference range was not used to interpr et this result as normal/abnormal . [facility] AND [id number] 05:20:00 Test Item Value Reference Range Interpretation Comments UA WBC (test code = UA WBC) 1-3 [facility] AND [id number] 05:20:00 Test Item Value Reference Range Interpretation Comments UA Sq Epi (test code = UA Sq Occasional /LPF Epi) [facility] AND [id number] 05:20:00 Test Item Value Reference Range Interpretation Comments UA Leuk Est (test Negative (04/08/18 12:20 code = UA Leuk Est) AM) [facility] AND [id number] 05:20:00 Test Item Value Reference Range Interpretation Comments UA Hyal Cast 6-10 (04/08/18 See_Comment [Automated me ssage] (test code = UA 12:20 AM) The system w hich [employer]) generated this result transmitted ref erence range: <=2. The reference range was not used to int erpret this result as normal/abnormal . [facility] AND [id number] 05:20:00 Test Item Value Reference Range Interpretation Comments UA Coarse Gran (test code = UA 6-10 /LPF Coarse Gran) [facility] AND [id number] 05:20:00 Test Item Value Reference Range Interpretation Comments UA Color (test code = Yellow *NA*(04/08/18 UA Color) 12:20 AM) [facility] AND [id number] 05:20:00 Test Item Value Reference Range Interpretation Comments UA Glucose (test code Negative (04/08/18 12:20 = UA Glucose) AM) [facility] AND [id number] 05:20:00 Test Item Value Reference Range Interpretation Comments UA Protein (test code = UA Protein) 30 mg/dL [facility] AND [id number] 05:20:00 Test Item Value Reference Range Interpretation Comments UA pH (test code = UA pH) 5.5 1 5.0-8.0 [facility] AND [id number] 05:20:00 Test Item Value Reference Range Interpretation Comments UA Spec Grav (test code = UA Spec 1.025 1 Grav) [facility] AND [id number] 05:20:00 Test Item Value Reference Range Interpretation Comments UA Turbidity (test code Slight Cloudy = UA Turbidity) (04/08/18 12:20 AM) [facility] AND [id number] 05:20:00 Test Item Value Reference Range Interpretation Comments UA Nitrite (test code Negative (04/08/18 12:20 = UA Nitrite) AM) [facility] AND [id number] 05:20:00 Test Item Value Reference Range Interpretation Comments UA Urobilinogen (test code = UA 0.2 0.1-1.0 Urobilinogen) [facility] AND [id number] 05:20:00 Test Item Value Reference Range Interpretation Comments UA Blood (test code = Large *ABN*(04/08/18 UA Blood) 12:20 AM) [facility] AND [id number] 05:20:00 Test Item Value Reference Range Interpretation Comments UA Bili (test code = Negative *NA*(04/08/18 UA Bili) 12:20 AM) [facility] AND [id number] 05:20:00 Test Item Value Reference Range Interpretation Comments UA Ketones (test code Negative *NA*(04/08/18 = UA Ketones) 12:20 AM) [facility] AND [id number] 05:20:00 Test Item Value Reference Range Interpretation Comments UA Bacteria (test code = UA Few /HPF Bacteria) [facility] AND [id number] 05:20:00 Test Item Value Reference Range Interpretation Comments UA RBC (test code 21-50 /HPF See_Comment [Automate d message] The = UA RBC) system which ge nerated this result tra nsmitted reference range : <=2. The reference range was not used to interpr et this result as normal/abnormal . [facility] AND [id number] 05:20:00 Test Item Value Reference Range Interpretation Comments UA WBC (test code = UA WBC) 1-3 [facility] AND [id number] 05:20:00 Test Item Value Reference Range Interpretation Comments UA Sq Epi (test code = UA Sq Occasional /LPF Epi) [facility] AND [id number] 05:20:00 Test Item Value Reference Range Interpretation Comments UA Leuk Est (test Negative (04/08/18 12:20 code = UA Leuk Est) AM) [facility] AND [id number] 05:20:00 Test Item Value Reference Range Interpretation Comments UA Hyal Cast 6-10 (04/08/18 See_Comment [Automated me ssage] (test code = UA 12:20 AM) The system w [employer]) generated this result transmitted ref erence range: <=2. The reference range was not used to int erpret this result as normal/abnormal . [facility] AND [id number] 05:20:00 Test Item Value Reference Range Interpretation Comments UA Coarse Gran (test code = UA 6-10 /LPF Coarse Gran) [facility] AND [id number] 05:20:00 Test Item Value Reference Range Interpretation Comments UA Color (test code = Yellow *NA*(04/08/18 UA Color) 12:20 AM) [facility] AND [id number] 05:20:00 Test Item Value Reference Range Interpretation Comments UA Glucose (test code Negative (04/08/18 12:20 = UA Glucose) AM) [facility] AND [id number] 05:20:00 Test Item Value Reference Range Interpretation Comments UA Protein (test code = UA Protein) 30 mg/dL [facility] AND [id number] 05:20:00 Test Item Value Reference Range Interpretation Comments UA pH (test code = UA pH) 5.5 1 5.0-8.0 [facility] AND [id number] 05:20:00 Test Item Value Reference Range Interpretation Comments UA Spec Grav (test code = UA Spec 1.025 1 Grav) [facility] AND [id number] 05:20:00 Test Item Value Reference Range Interpretation Comments UA Turbidity (test code Slight Cloudy = UA Turbidity) (04/08/18 12:20 AM) [facility] AND [id number] 05:20:00 Test Item Value Reference Range Interpretation Comments UA Nitrite (test code Negative (04/08/18 12:20 = UA Nitrite) AM) [facility] AND [id number] 05:20:00 Test Item Value Reference Range Interpretation Comments UA Urobilinogen (test code = UA 0.2 0.1-1.0 Urobilinogen) [facility] AND [id number] 05:20:00 Test Item Value Reference Range Interpretation Comments UA Blood (test code = Large *ABN*(04/08/18 UA Blood) 12:20 AM) [facility] AND [id number] 05:20:00 Test Item Value Reference Range Interpretation Comments UA Bili (test code = Negative *NA*(04/08/18 UA Bili) 12:20 AM) [facility] AND [id number] 05:20:00 Test Item Value Reference Range Interpretation Comments UA Ketones (test code Negative *NA*(04/08/18 = UA Ketones) 12:20 AM) [facility] AND [id number] 05:20:00 Test Item Value Reference Range Interpretation Comments UA Bacteria (test code = UA Few /HPF Bacteria) [facility] AND [id number] 05:20:00 Test Item Value Reference Range Interpretation Comments UA RBC (test code 21-50 /HPF See_Comment [Automate d message] The = UA RBC) system which ge nerated this result tra nsmitted reference range : <=2. The reference range was not used to interpr et this result as normal/abnormal . [facility] AND [id number] 05:20:00 Test Item Value Reference Range Interpretation Comments UA WBC (test code = UA WBC) 1-3 [facility] AND [id number] 05:20:00 Test Item Value Reference Range Interpretation Comments UA Sq Epi (test code = UA Sq Occasional /LPF Epi) [facility] AND [id number] 05:20:00 Test Item Value Reference Range Interpretation Comments UA Leuk Est (test Negative (04/08/18 12:20 code = UA Leuk Est) AM) [facility] [id number] 04:50:00 Test Item Value Reference Range Interpretation Comments Antibody Scrn (test Negative (04/07/18 code = Antibody Scrn) 11:50 PM) [facility] [employer] [id number] 04:50:00 Test Item Value Reference Range Interpretation Comments ABO/Rh (test code = ABO/Rh) [facility] [id number] 04:50:00 Test Item Value Reference Range Interpretation Comments Antibody Scrn (test Negative (04/07/18 code = Antibody Scrn) 11:50 PM) [facility] [id number] 04:50:00 Test Item Value Reference Range Interpretation Comments ABO/Rh (test code = ABO/Rh) A [facility] [employer] [id number] 04:50:00 Test Item Value Reference Range Interpretation Comments Antibody Scrn (test Negative (04/07/18 code = Antibody Scrn) 11:50 PM) [facility] [id number] 04:50:00 Test Item Value Reference Range Interpretation Comments ABO/Rh (test code = ABO/Rh) A [facility] [employer] [id number] 04:50:00 Test Item Value Reference Range Interpretation Comments Antibody Scrn (test Negative (04/07/18 code = Antibody Scrn) 11:50 PM) [facility] [id number] 04:50:00 Test Item Value Reference Range Interpretation Comments ABO/Rh (test code = ABO/Rh) [facility] [id number] 04:50:00 Test Item Value Reference Range Interpretation Comments Antibody Scrn (test Negative (04/07/18 code = Antibody Scrn) 11:50 PM) [facility] [id number] 04:50:00 Test Item Value Reference Range Interpretation Comments ABO/Rh (test code = ABO/Rh) A [facility] [employer] [id number] 04:50:00 Test Item Value Reference Range Interpretation Comments Antibody Scrn (test Negative (04/07/18 code = Antibody Scrn) 11:50 PM) [facility] [id number] 04:50:00 Test Item Value Reference Range Interpretation Comments ABO/Rh (test code = ABO/Rh) A [facility] [employer] [id number] 04:50:00 Test Item Value Reference Range Interpretation Comments Antibody Scrn (test Negative (04/07/18 code = Antibody Scrn) 11:50 PM) [facility] [employer] [id number] 04:50:00 Test Item Value Reference Range Interpretation Comments ABO/Rh (test code = ABO/Rh) A [facility] [employer] [id number] 04:50:00 Test Item Value Reference Range Interpretation Comments Antibody Scrn (test Negative (04/07/18 code = Antibody Scrn) 11:50 PM) [facility] [employer] [id number] 04:50:00 Test Item Value Reference Range Interpretation Comments ABO/Rh (test code = ABO/Rh) A [facility] [employer] [id number] 04:50:00 Test Item Value Reference Range Interpretation Comments Antibody Scrn (test Negative (04/07/18 code = Antibody Scrn) 11:50 PM) [facility] [employer] [id number] 04:50:00 Test Item Value Reference Range Interpretation Comments ABO/Rh (test code = ABO/Rh) A [facility] [employer] [id number] 04:50:00 Test Item Value Reference Range Interpretation Comments Antibody Scrn (test Negative (04/07/18 code = Antibody Scrn) 11:50 PM) [facility] [employer] [id number] 04:50:00 Test Item Value Reference Range Interpretation Comments ABO/Rh (test code = ABO/Rh) A [facility] [employer] [id number] 04:50:00 Test Item Value Reference Range Interpretation Comments Antibody Scrn (test Negative (04/07/18 code = Antibody Scrn) 11:50 PM) [facility] [employer] [id number] 04:50:00 Test Item Value Reference Range Interpretation Comments ABO/Rh (test code = ABO/Rh) A [facility] [employer] [id number] 04:41:48 Test Item Value Reference Range Interpretation Comments Lactic Acid Lvl (test code = Lactic 0.8 0.5-2.2 Acid Lvl) [employer] [id number] 04:41:48 Test Item Value Reference Range Interpretation Comments Total Protein (test code = Total 7.0 6.4-8.4 Protein) [employer] [id number] 04:41:48 Test Item Value Reference Range Interpretation Comments Albumin Lvl (test code = Albumin Lvl) 3.7 3.5-5.0 [place] [id number] 04:41:48 Test Item Value Reference Range Interpretation Comments ALT (test code = ALT) 46 See_Comment [Auto mated message] The system which ge nerated this result transmit karla reference range : <=65. The reference range was not used to interpr et this result as parul l/abnormal. [place] [id number] 04:41:48 Test Item Value Reference Range Interpretation Comments AST (test code = AST) 60 See_Comment [Auto mated message] The system which ge nerated this result transmit karla reference range : <=37. The reference range was not used to interpr et this result as parul l/abnormal. [place] [id number] 04:41:48 Test Item Value Reference Range Interpretation Comments Alk Phos (test code = Alk Phos) 65 39-136 [place] [id number] 04:41:48 Test Item Value Reference Range Interpretation Comments Bili Total (test code = Bili Total) 0.7 0.2-1.3 [place] [id number] 04:41:48 Test Item Value Reference Range Interpretation Comments Bili Indirect (test 0.6 See_Comment [Automa karla message] The code = Bili Indirect) system which generated this result tra nsmitted reference range : <=1.0. The reference r renu was not used to int erpret this result as normal/abnormal . [place] [id number] 04:41:48 Test Item Value Reference Range Interpretation Comments Bili Direct (test code 0.1 See_Comment [Aut omated message] The = Bili Direct) system which generated this result tra nsmitted reference range : <=0.3. The reference r renu was not used to int erpret this result as parul l/abnormal. [place] 792678-07-13 04:41:48 Test Item Value Reference Range Interpretation Comments A/G Ratio (test code = A/G Ratio) 1.1 1 0.7-1.6 [place] 792678-07-13 04:41:48 Test Item Value Reference Range Interpretation Comments Globulin (test code = Globulin) 3.3 2.7-4.2 [id number] 04:41:48 Test Item Value Reference Range Interpretation Comments PTT (test code = PTT) 29.3 s 22.9-35.8 [id number] 04:41:48 Test Item Value Reference Range Interpretation Comments INR (test code = INR) 1.19 1 0.85-1.17 [facility] [id number] 04:41:48 Test Item Value Reference Range Interpretation Comments PT (test code = PT) 15.2 s 12.0-14.7 [facility] [id number] 04:41:48 Test Item Value Reference Range Interpretation Comments Estimated % Lysis Rapid 1.1 See_Comment [Au tomated message] The (test code = Estimated syste m which generated % Lysis Rapid) this result t ransmitted reference range : <=7.5. The reference r renu was not used to int erpret this result as normal/abnormal . [facility] H[id number] 04:41:48 Test Item Value Reference Range Interpretation Comments ACT (TEG) Rapid (test code = ACT (TEG) 97 s 86-118 Rapid) [facility] [id number] 04:41:48 Test Item Value Reference Range Interpretation Comments G-value Rapid (test code = G-value 8.1 5.0-11.6 Rapid) [facility] [id number] 04:41:48 Test Item Value Reference Range Interpretation Comments Split Point Rapid (test code = Split 0.4 min Point Rapid) [facility]GilmaygUUPDPDUBTE1073-89-64 04:41:48 Test Item Value Reference Range Interpretation Comments R-time Rapid (test code = R-time 0.5 min 0.4-0.7 Rapid) [facility] HospitalTgwkdlmXNOQZBQZNW9950-90-50 04:41:48 Test Item Value Reference Range Interpretation Comments Angle Rapid (test code = Angle 76 degrees 64-80 Rapid) [facility] HospitalRzzaddbTBTTIBKBGD4621-81-01 04:41:48 Test Item Value Reference Range Interpretation Comments Max Amplitude Rapid (test code = Max 62 mm 52-71 Amplitude Rapid) [facility] HospitalCfjncwxRNPUYTVJCU4222-16-57 04:41:48 Test Item Value Reference Range Interpretation Comments K-time Rapid (test code = K-time 1.2 min 0.6-2.3 Rapid) [place] [id number] 04:41:48 Test Item Value Reference Range Interpretation Comments Etoh (%) (test code = Etoh (%)) no gt [place] 735208-07-13 04:41:48 Test Item Value Reference Range Interpretation Comments Ethanol Lvl (test code = Ethanol Lvl) no gt [facility]2018-07-13 04:41:48 Test Item Value Reference Range Interpretation Comments Lactic Acid Lvl (test code = Lactic 0.8 0.5-2.2 Acid Lvl) [facility]2018-07-13 04:41:48 Test Item Value Reference Range Interpretation Comments Total Protein (test code = Total 7.0 6.4-8.4 Protein) [facility]2018-07-13 04:41:48 Test Item Value Reference Range Interpretation Comments Albumin Lvl (test code = Albumin Lvl) 3.7 3.5-5.0 [facility]2018-07-13 04:41:48 Test Item Value Reference Range Interpretation Comments ALT (test code = ALT) 46 See_Comment [Auto mated message] The system which ge nerated this result transmit karla reference range : <=65. The reference range was not used to interpr et this result as parul l/abnormal. [facility]2018-07-13 04:41:48 Test Item Value Reference Range Interpretation Comments AST (test code = AST) 60 See_Comment [Auto mated message] The system which ge nerated this result transmit karla reference range : <=37. The reference range was not used to interpr et this result as parul l/abnormal. [facility]2018-07-13 04:41:48 Test Item Value Reference Range Interpretation Comments Alk Phos (test code = Alk Phos) 65 39-136 [facility]2018-07-13 04:41:48 Test Item Value Reference Range Interpretation Comments Bili Total (test code = Bili Total) 0.7 0.2-1.3 [place] 792678-07-13 04:41:48 Test Item Value Reference Range Interpretation Comments Bili Indirect (test 0.6 See_Comment [Automa karla message] The code = Bili Indirect) system which generated this result tra nsmitted reference range : <=1.0. The reference r renu was not used to int erpret this result as normal/abnormal . [facility]2018-07-13 04:41:48 Test Item Value Reference Range Interpretation Comments Bili Direct (test code 0.1 See_Comment [Aut omated message] The = Bili Direct) system which generated this result tra nsmitted reference range : <=0.3. The reference r renu was not used to int erpret this result as parul l/abnormal. [facility]2018-07-13 04:41:48 Test Item Value Reference Range Interpretation Comments A/G Ratio (test code = A/G Ratio) 1.1 1 0.7-1.6 [facility]2018-07-13 04:41:48 Test Item Value Reference Range Interpretation Comments Globulin (test code = Globulin) 3.3 2.7-4.2 [facility] HospitalSukkoqfKKASWPZGSG2798-49-30 04:41:48 Test Item Value Reference Range Interpretation Comments PTT (test code = PTT) 29.3 s 22.9-35.8 [facility] HospitalTmgkkvzKKOEILNKQG8061-58-03 04:41:48 Test Item Value Reference Range Interpretation Comments INR (test code = INR) 1.19 1 0.85-1.17 [facility] HospitalVehpiqpCCILJYAMVK0321-87-92 04:41:48 Test Item Value Reference Range Interpretation Comments PT (test code = PT) 15.2 s 12.0-14.7 [facility] HospitalLtqvaqsUKHTGNJOJM3696-74-16 04:41:48 Test Item Value Reference Range Interpretation Comments Estimated % Lysis Rapid 1.1 See_Comment [Au tomated message] The (test code = Estimated syste m which generated % Lysis Rapid) this result t ransmitted reference range : <=7.5. The reference r renu was not used to int erpret this result as normal/abnormal . [facility] HospitalEsbujvbSCZZQEAZUF9958-36-68 04:41:48 Test Item Value Reference Range Interpretation Comments ACT (TEG) Rapid (test code = ACT (TEG) 97 s 86-118 Rapid) [facility] HospitalKgyvjgcLFDYWQPRDC3295-07-68 04:41:48 Test Item Value Reference Range Interpretation Comments G-value Rapid (test code = G-value 8.1 5.0-11.6 Rapid) [facility] HospitalMdrycddYQAXZJUFCB3973-39-50 04:41:48 Test Item Value Reference Range Interpretation Comments Split Point Rapid (test code = Split 0.4 min Point Rapid) [facility] HospitalFspysjlZUKRKEUHVK0791-06-73 04:41:48 Test Item Value Reference Range Interpretation Comments R-time Rapid (test code = R-time 0.5 min 0.4-0.7 Rapid) [facility] HospitalHdwwzwmAWONNNCPNL1769-69-02 04:41:48 Test Item Value Reference Range Interpretation Comments Angle Rapid (test code = Angle 76 degrees 64-80 Rapid) [facility] HospitalVgcgnycXTORTFKLIY9558-12-38 04:41:48 Test Item Value Reference Range Interpretation Comments Max Amplitude Rapid (test code = Max 62 mm 52-71 Amplitude Rapid) [facility] HospitalLavrrqoOZEORNJKJQ6748-56-82 04:41:48 Test Item Value Reference Range Interpretation Comments K-time Rapid (test code = K-time 1.2 min 0.6-2.3 Rapid) [place] [id number] 04:41:48 Test Item Value Reference Range Interpretation Comments Etoh (%) (test code = Etoh (%)) no gt [place] [id number] 04:41:48 Test Item Value Reference Range Interpretation Comments Ethanol Lvl (test code = Ethanol Lvl) no gt [facility]2018-07-13 04:41:48 Test Item Value Reference Range Interpretation Comments Lactic Acid Lvl (test code = Lactic 0.8 0.5-2.2 Acid Lvl) [facility]2018-07-13 04:41:48 Test Item Value Reference Range Interpretation Comments Total Protein (test code = Total 7.0 6.4-8.4 Protein) [facility]2018-07-13 04:41:48 Test Item Value Reference Range Interpretation Comments Albumin Lvl (test code = Albumin Lvl) 3.7 3.5-5.0 [facility]2018-07-13 04:41:48 Test Item Value Reference Range Interpretation Comments ALT (test code = ALT) 46 See_Comment [Auto mated message] The system which ge nerated this result transmit karla reference range : <=65. The reference range was not used to interpr et this result as parul l/abnormal. [facility]2018-07-13 04:41:48 Test Item Value Reference Range Interpretation Comments AST (test code = AST) 60 See_Comment [Auto mated message] The system which ge nerated this result transmit karla reference range : <=37. The reference range was not used to interpr et this result as parul l/abnormal. [facility]2018-07-13 04:41:48 Test Item Value Reference Range Interpretation Comments Alk Phos (test code = Alk Phos) 65 39-136 [facility]2018-07-13 04:41:48 Test Item Value Reference Range Interpretation Comments Bili Total (test code = Bili Total) 0.7 0.2-1.3 [place] 792678-07-13 04:41:48 Test Item Value Reference Range Interpretation Comments Bili Indirect (test 0.6 See_Comment [Automa karla message] The code = Bili Indirect) system which generated this result tra nsmitted reference range : <=1.0. The reference r renu was not used to int erpret this result as normal/abnormal . [facility]2018-07-13 04:41:48 Test Item Value Reference Range Interpretation Comments Bili Direct (test code 0.1 See_Comment [Aut omated message] The = Bili Direct) system which generated this result tra nsmitted reference range : <=0.3. The reference r renu was not used to int erpret this result as parul l/abnormal. [facility]2018-07-13 04:41:48 Test Item Value Reference Range Interpretation Comments A/G Ratio (test code = A/G Ratio) 1.1 1 0.7-1.6 [facility]2018-07-13 04:41:48 Test Item Value Reference Range Interpretation Comments Globulin (test code = Globulin) 3.3 2.7-4.2 [facility] HospitalFvvgnpsSNPVERCBCG7676-82-71 04:41:48 Test Item Value Reference Range Interpretation Comments PTT (test code = PTT) 29.3 s 22.9-35.8 [facility] HospitalDawjtvoLZWTJFJVQG0993-34-90 04:41:48 Test Item Value Reference Range Interpretation Comments INR (test code = INR) 1.19 1 0.85-1.17 [facility] HospitalApukynrJBLACEJVPO2744-72-18 04:41:48 Test Item Value Reference Range Interpretation Comments PT (test code = PT) 15.2 s 12.0-14.7 [facility] HospitalPjwxefkKSFZGZEOOF1430-42-49 04:41:48 Test Item Value Reference Range Interpretation Comments Estimated % Lysis Rapid 1.1 See_Comment [Au tomated message] The (test code = Estimated syste m which generated % Lysis Rapid) this result t ransmitted reference range : <=7.5. The reference r renu was not used to int erpret this result as normal/abnormal . [facility] HospitalXkxibgfAEZBMFTXZF9326-96-34 04:41:48 Test Item Value Reference Range Interpretation Comments ACT (TEG) Rapid (test code = ACT (TEG) 97 s 86-118 Rapid) [facility] HospitalBgshpgmCFQMDEMOWT7975-53-67 04:41:48 Test Item Value Reference Range Interpretation Comments G-value Rapid (test code = G-value 8.1 5.0-11.6 Rapid) [facility] HospitalCdnfeoqFTECMUVNYS9301-72-64 04:41:48 Test Item Value Reference Range Interpretation Comments Split Point Rapid (test code = Split 0.4 min Point Rapid) [facility] HospitalRhjnnyyXGMUBUJYGI8829-20-94 04:41:48 Test Item Value Reference Range Interpretation Comments R-time Rapid (test code = R-time 0.5 min 0.4-0.7 Rapid) [facility] HospitalCwmijlcRRSMNOCRSG2183-75-60 04:41:48 Test Item Value Reference Range Interpretation Comments Angle Rapid (test code = Angle 76 degrees 64-80 Rapid) [facility] HospitalYmcemtvKBZJLVTBBS2385-46-20 04:41:48 Test Item Value Reference Range Interpretation Comments Max Amplitude Rapid (test code = Max 62 mm 52-71 Amplitude Rapid) [facility] HospitalUwsrscjNLBWEHUZCU7574-85-07 04:41:48 Test Item Value Reference Range Interpretation Comments K-time Rapid (test code = K-time 1.2 min 0.6-2.3 Rapid) [place] 32533018-07-13 04:41:48 Test Item Value Reference Range Interpretation Comments Etoh (%) (test code = Etoh (%)) no gt [place] 32533018-07-13 04:41:48 Test Item Value Reference Range Interpretation Comments Ethanol Lvl (test code = Ethanol Lvl) no gt [facility]2018-07-13 04:41:48 Test Item Value Reference Range Interpretation Comments Lactic Acid Lvl (test code = Lactic 0.8 0.5-2.2 Acid Lvl) [facility]2018-07-13 04:41:48 Test Item Value Reference Range Interpretation Comments Total Protein (test code = Total 7.0 6.4-8.4 Protein) [place] 792678-07-13 04:41:48 Test Item Value Reference Range Interpretation Comments Albumin Lvl (test code = Albumin Lvl) 3.7 3.5-5.0 [facility]2018-07-13 04:41:48 Test Item Value Reference Range Interpretation Comments ALT (test code = ALT) 46 See_Comment [Auto mated message] The system which ge nerated this result transmit karla reference range : <=65. The reference range was not used to interpr et this result as parul l/abnormal. [facility]2018-07-13 04:41:48 Test Item Value Reference Range Interpretation Comments AST (test code = AST) 60 See_Comment [Auto mated message] The system which ge nerated this result transmit karla reference range : <=37. The reference range was not used to interpr et this result as parul l/abnormal. [place] 792678-07-13 04:41:48 Test Item Value Reference Range Interpretation Comments Alk Phos (test code = Alk Phos) 65 39-136 [facility]2018-07-13 04:41:48 Test Item Value Reference Range Interpretation Comments Bili Total (test code = Bili Total) 0.7 0.2-1.3 [place] 792678-07-13 04:41:48 Test Item Value Reference Range Interpretation Comments Bili Indirect (test 0.6 See_Comment [Automa karla message] The code = Bili Indirect) system which generated this result tra nsmitted reference range : <=1.0. The reference r renu was not used to int erpret this result as normal/abnormal . [facility]2018-07-13 04:41:48 Test Item Value Reference Range Interpretation Comments Bili Direct (test code 0.1 See_Comment [Aut omated message] The = Bili Direct) system which generated this result tra nsmitted reference range : <=0.3. The reference r renu was not used to int erpret this result as parul l/abnormal. [facility]2018-07-13 04:41:48 Test Item Value Reference Range Interpretation Comments A/G Ratio (test code = A/G Ratio) 1.1 1 0.7-1.6 [facility]2018-07-13 04:41:48 Test Item Value Reference Range Interpretation Comments Globulin (test code = Globulin) 3.3 2.7-4.2 [facility] HospitalHwsypgkJRRWYZJKTV8623-00-64 04:41:48 Test Item Value Reference Range Interpretation Comments PTT (test code = PTT) 29.3 s 22.9-35.8 [facility] HospitalLsskijnBVVTKFRQHX9060-86-88 04:41:48 Test Item Value Reference Range Interpretation Comments INR (test code = INR) 1.19 1 0.85-1.17 [facility] HospitalZydztwdCGYBHDKALZ5895-29-00 04:41:48 Test Item Value Reference Range Interpretation Comments PT (test code = PT) 15.2 s 12.0-14.7 [facility] HospitalDtazkhnGMNCNZKRNF3095-63-62 04:41:48 Test Item Value Reference Range Interpretation Comments Estimated % Lysis Rapid 1.1 See_Comment [Au tomated message] The (test code = Estimated syste m which generated % Lysis Rapid) this result t ransmitted reference range : <=7.5. The reference r renu was not used to int erpret this result as normal/abnormal . [facility] HospitalKeqnntfFCMBYMJNUO0464-92-53 04:41:48 Test Item Value Reference Range Interpretation Comments ACT (TEG) Rapid (test code = ACT (TEG) 97 s 86-118 Rapid) [facility] HospitalSzvpefqPJWNXVDAXZ6346-90-25 04:41:48 Test Item Value Reference Range Interpretation Comments G-value Rapid (test code = G-value 8.1 5.0-11.6 Rapid) [facility] HospitalRpilxoeNYPDMGFBQG6516-52-03 04:41:48 Test Item Value Reference Range Interpretation Comments Split Point Rapid (test code = Split 0.4 min Point Rapid) [facility] HospitalJabmzxkQZKPJDCSMW7386-13-81 04:41:48 Test Item Value Reference Range Interpretation Comments R-time Rapid (test code = R-time 0.5 min 0.4-0.7 Rapid) [facility] HospitalFyavcqzQHESGCTCNP4298-29-89 04:41:48 Test Item Value Reference Range Interpretation Comments Angle Rapid (test code = Angle 76 degrees 64-80 Rapid) [facility] HospitalGhjevwwMMPFYYHNTV6811-59-78 04:41:48 Test Item Value Reference Range Interpretation Comments Max Amplitude Rapid (test code = Max 62 mm 52-71 Amplitude Rapid) [facility] HospitalNyxwjkdGRZLGBDFOD3951-89-40 04:41:48 Test Item Value Reference Range Interpretation Comments K-time Rapid (test code = K-time 1.2 min 0.6-2.3 Rapid) [place] 735208-07-13 04:41:48 Test Item Value Reference Range Interpretation Comments Etoh (%) (test code = Etoh (%)) no gt [place] 32533018-07-13 04:41:48 Test Item Value Reference Range Interpretation Comments Ethanol Lvl (test code = Ethanol Lvl) no gt [facility]2018-07-13 04:41:48 Test Item Value Reference Range Interpretation Comments Lactic Acid Lvl (test code = Lactic 0.8 0.5-2.2 Acid Lvl) [facility]2018-07-13 04:41:48 Test Item Value Reference Range Interpretation Comments Total Protein (test code = Total 7.0 6.4-8.4 Protein) [facility]2018-07-13 04:41:48 Test Item Value Reference Range Interpretation Comments Albumin Lvl (test code = Albumin Lvl) 3.7 3.5-5.0 [facility]2018-07-13 04:41:48 Test Item Value Reference Range Interpretation Comments ALT (test code = ALT) 46 See_Comment [Auto mated message] The system which ge nerated this result transmit karla reference range : <=65. The reference range was not used to interpr et this result as parul l/abnormal. [facility]2018-07-13 04:41:48 Test Item Value Reference Range Interpretation Comments AST (test code = AST) 60 See_Comment [Auto mated message] The system which ge nerated this result transmit karla reference range : <=37. The reference range was not used to interpr et this result as parul l/abnormal. [place] 792678-07-13 04:41:48 Test Item Value Reference Range Interpretation Comments Alk Phos (test code = Alk Phos) 65 39-136 [facility]2018-07-13 04:41:48 Test Item Value Reference Range Interpretation Comments Bili Total (test code = Bili Total) 0.7 0.2-1.3 [place] 792678-07-13 04:41:48 Test Item Value Reference Range Interpretation Comments Bili Indirect (test 0.6 See_Comment [Automa karla message] The code = Bili Indirect) system which generated this result tra nsmitted reference range : <=1.0. The reference r renu was not used to int erpret this result as normal/abnormal . [place] 792678-07-13 04:41:48 Test Item Value Reference Range Interpretation Comments Bili Direct (test code 0.1 See_Comment [Aut omated message] The = Bili Direct) system which generated this result tra nsmitted reference range : <=0.3. The reference r renu was not used to int erpret this result as parul l/abnormal. [place] 792678-07-13 04:41:48 Test Item Value Reference Range Interpretation Comments A/G Ratio (test code = A/G Ratio) 1.1 1 0.7-1.6 [place] 792678-07-13 04:41:48 Test Item Value Reference Range Interpretation Comments Globulin (test code = Globulin) 3.3 2.7-4.2 [facility] HospitalStnjenjPHFMBZUHWZ1531-80-54 04:41:48 Test Item Value Reference Range Interpretation Comments PTT (test code = PTT) 29.3 s 22.9-35.8 [place] 411608-07-13 04:41:48 Test Item Value Reference Range Interpretation Comments INR (test code = INR) 1.19 1 0.85-1.17 [place] 411608-07-13 04:41:48 Test Item Value Reference Range Interpretation Comments PT (test code = PT) 15.2 s 12.0-14.7 [place] 411608-07-13 04:41:48 Test Item Value Reference Range Interpretation Comments Estimated % Lysis Rapid 1.1 See_Comment [Au tomated message] The (test code = Estimated syste m which generated % Lysis Rapid) this result t ransmitted reference range : <=7.5. The reference r renu was not used to int erpret this result as normal/abnormal . [facility] HospitalPamvbpwMKZDIVKLFR4665-35-59 04:41:48 Test Item Value Reference Range Interpretation Comments ACT (TEG) Rapid (test code = ACT (TEG) 97 s 86-118 Rapid) [facility] HospitalGimqonxBHBUZTOFVF8328-56-65 04:41:48 Test Item Value Reference Range Interpretation Comments G-value Rapid (test code = G-value 8.1 5.0-11.6 Rapid) [facility] HospitalEtlkrwsQHVNXVVTJT3151-67-49 04:41:48 Test Item Value Reference Range Interpretation Comments Split Point Rapid (test code = Split 0.4 min Point Rapid) [facility] HospitalCeohrexZBBUVVIVOX6149-00-87 04:41:48 Test Item Value Reference Range Interpretation Comments R-time Rapid (test code = R-time 0.5 min 0.4-0.7 Rapid) [facility] HospitalTwzxkybDZTOUCRPZT4978-01-92 04:41:48 Test Item Value Reference Range Interpretation Comments Angle Rapid (test code = Angle 76 degrees 64-80 Rapid) [facility] HospitalVsxicpyGRDOQNDZUW3486-84-60 04:41:48 Test Item Value Reference Range Interpretation Comments Max Amplitude Rapid (test code = Max 62 mm 52-71 Amplitude Rapid) [facility] HospitalXxzufozEDGZDHCBLS0090-63-18 04:41:48 Test Item Value Reference Range Interpretation Comments K-time Rapid (test code = K-time 1.2 min 0.6-2.3 Rapid) [facility]auytblERMKYJHOAD3049[facility]-33 04:41:48 Test Item Value Reference Range Interpretation Comments Etoh (%) (test code = Etoh (%)) no gt [facility]HsgqfigJJGAWQVMVR0667-81-26 04:41:48 Test Item Value Reference Range Interpretation Comments Ethanol Lvl (test code = Ethanol Lvl) no gt [facility]2018-07-13 04:41:48 Test Item Value Reference Range Interpretation Comments Lactic Acid Lvl (test code = Lactic 0.8 0.5-2.2 Acid Lvl) [facility]2018-07-13 04:41:48 Test Item Value Reference Range Interpretation Comments Total Protein (test code = Total 7.0 6.4-8.4 Protein) [place] 792678-07-13 04:41:48 Test Item Value Reference Range Interpretation Comments Albumin Lvl (test code = Albumin Lvl) 3.7 3.5-5.0 [place] 792678-07-13 04:41:48 Test Item Value Reference Range Interpretation Comments ALT (test code = ALT) 46 See_Comment [Auto mated message] The system which ge nerated this result transmit karla reference range : <=65. The reference range was not used to interpr et this result as parul l/abnormal. [place] 792678-07-13 04:41:48 Test Item Value Reference Range Interpretation Comments AST (test code = AST) 60 See_Comment [Auto mated message] The system which ge nerated this result transmit karla reference range : <=37. The reference range was not used to interpr et this result as parul l/abnormal. [place] 792678-07-13 04:41:48 Test Item Value Reference Range Interpretation Comments Alk Phos (test code = Alk Phos) 65 39-136 [facility]2018-07-13 04:41:48 Test Item Value Reference Range Interpretation Comments Bili Total (test code = Bili Total) 0.7 0.2-1.3 [place] 792678-07-13 04:41:48 Test Item Value Reference Range Interpretation Comments Bili Indirect (test 0.6 See_Comment [Automa karla message] The code = Bili Indirect) system which generated this result tra nsmitted reference range : <=1.0. The reference r renu was not used to int erpret this result as normal/abnormal . [place] 792678-07-13 04:41:48 Test Item Value Reference Range Interpretation Comments Bili Direct (test code 0.1 See_Comment [Aut omated message] The = Bili Direct) system which generated this result tra nsmitted reference range : <=0.3. The reference r renu was not used to int erpret this result as parul l/abnormal. [place] 792678-07-13 04:41:48 Test Item Value Reference Range Interpretation Comments A/G Ratio (test code = A/G Ratio) 1.1 1 0.7-1.6 [facility]2018-07-13 04:41:48 Test Item Value Reference Range Interpretation Comments Globulin (test code = Globulin) 3.3 2.7-4.2 [facility] HospitalItpqcjqHSTPVJTGUT5279-21-81 04:41:48 Test Item Value Reference Range Interpretation Comments PTT (test code = PTT) 29.3 s 22.9-35.8 [facility] HospitalJmzqeemVZFBPSHJSO9213-60-93 04:41:48 Test Item Value Reference Range Interpretation Comments INR (test code = INR) 1.19 1 0.85-1.17 [facility] HospitalNefqeuqXSXKBJIMNZ6227-22-48 04:41:48 Test Item Value Reference Range Interpretation Comments PT (test code = PT) 15.2 s 12.0-14.7 [facility] HospitalVfptblzIBKPCBRYQC7120-30-68 04:41:48 Test Item Value Reference Range Interpretation Comments Estimated % Lysis Rapid 1.1 See_Comment [Au tomated message] The (test code = Estimated syste m which generated % Lysis Rapid) this result t ransmitted reference range : <=7.5. The reference r renu was not used to int erpret this result as normal/abnormal . [facility] HospitalBdsuunjDYVCVPVXFZ0231-72-40 04:41:48 Test Item Value Reference Range Interpretation Comments ACT (TEG) Rapid (test code = ACT (TEG) 97 s 86-118 Rapid) [facility] HospitalLlnidupOQGVEHKUMR5558-67-34 04:41:48 Test Item Value Reference Range Interpretation Comments G-value Rapid (test code = G-value 8.1 5.0-11.6 Rapid) [facility] HospitalDxvwwbaTKKQXKMHAV0494-01-97 04:41:48 Test Item Value Reference Range Interpretation Comments Split Point Rapid (test code = Split 0.4 min Point Rapid) [facility] HospitalBlituknHGQZZFMVGZ6619-43-39 04:41:48 Test Item Value Reference Range Interpretation Comments R-time Rapid (test code = R-time 0.5 min 0.4-0.7 Rapid) [facility] HospitalUjwewlgLSQXNCKAQC4482-20-35 04:41:48 Test Item Value Reference Range Interpretation Comments Angle Rapid (test code = Angle 76 degrees 64-80 Rapid) [facility]RzszxnlHURSYAWWPO6170-87-97 04:41:48 Test Item Value Reference Range Interpretation Comments Max Amplitude Rapid (test code = Max 62 mm 52-71 Amplitude Rapid) [facility] HospitalLqselnqDOJOVZWSLK4444-88-80 04:41:48 Test Item Value Reference Range Interpretation Comments K-time Rapid (test code = K-time 1.2 min 0.6-2.3 Rapid) [place] [id number] 04:41:48 Test Item Value Reference Range Interpretation Comments Etoh (%) (test code = Etoh (%)) no gt [place] [id number] 04:41:48 Test Item Value Reference Range Interpretation Comments Ethanol Lvl (test code = Ethanol Lvl) no gt [facility]2018-07-13 04:41:48 Test Item Value Reference Range Interpretation Comments Lactic Acid Lvl (test code = Lactic 0.8 0.5-2.2 Acid Lvl) [facility]2018-07-13 04:41:48 Test Item Value Reference Range Interpretation Comments Total Protein (test code = Total 7.0 6.4-8.4 Protein) [facility]2018-07-13 04:41:48 Test Item Value Reference Range Interpretation Comments Albumin Lvl (test code = Albumin Lvl) 3.7 3.5-5.0 [facility]2018-07-13 04:41:48 Test Item Value Reference Range Interpretation Comments ALT (test code = ALT) 46 See_Comment [Auto mated message] The system which ge nerated this result transmit karla reference range : <=65. The reference range was not used to interpr et this result as parul l/abnormal. [facility]2018-07-13 04:41:48 Test Item Value Reference Range Interpretation Comments AST (test code = AST) 60 See_Comment [Auto mated message] The system which ge nerated this result transmit karla reference range : <=37. The reference range was not used to interpr et this result as parul l/abnormal. [facility]2018-07-13 04:41:48 Test Item Value Reference Range Interpretation Comments Alk Phos (test code = Alk Phos) 65 39-136 [facility]2018-07-13 04:41:48 Test Item Value Reference Range Interpretation Comments Bili Total (test code = Bili Total) 0.7 0.2-1.3 [place] 792678-07-13 04:41:48 Test Item Value Reference Range Interpretation Comments Bili Indirect (test 0.6 See_Comment [Automa karla message] The code = Bili Indirect) system which generated this result tra nsmitted reference range : <=1.0. The reference r renu was not used to int erpret this result as normal/abnormal . [place] 792678-07-13 04:41:48 Test Item Value Reference Range Interpretation Comments Bili Direct (test code 0.1 See_Comment [Aut omated message] The = Bili Direct) system which generated this result tra nsmitted reference range : <=0.3. The reference r renu was not used to int erpret this result as parul l/abnormal. [place] 792678-07-13 04:41:48 Test Item Value Reference Range Interpretation Comments A/G Ratio (test code = A/G Ratio) 1.1 1 0.7-1.6 [place] 792678-07-13 04:41:48 Test Item Value Reference Range Interpretation Comments Globulin (test code = Globulin) 3.3 2.7-4.2 [place] 411608-07-13 04:41:48 Test Item Value Reference Range Interpretation Comments PTT (test code = PTT) 29.3 s 22.9-35.8 [place] 411608-07-13 04:41:48 Test Item Value Reference Range Interpretation Comments INR (test code = INR) 1.19 1 0.85-1.17 [place] 411608-07-13 04:41:48 Test Item Value Reference Range Interpretation Comments PT (test code = PT) 15.2 s 12.0-14.7 [place] 8[address]-07-13 04:41:48 Test Item Value Reference Range Interpretation Comments Estimated % Lysis Rapid 1.1 See_Comment [Au tomated message] The (test code = Estimated syste m which generated % Lysis Rapid) this result t ransmitted reference range : <=7.5. The reference r renu was not used to int erpret this result as normal/abnormal . [place] 411608-07-13 04:41:48 Test Item Value Reference Range Interpretation Comments ACT (TEG) Rapid (test code = ACT (TEG) 97 s 86-118 Rapid) [facility]MgvzyvaITDMSCBVEU4242-89-83 04:41:48 Test Item Value Reference Range Interpretation Comments G-value Rapid (test code = G-value 8.1 5.0-11.6 Rapid) [facility] HospitalLmyxzdcDOCQVYGSKD5557-08-78 04:41:48 Test Item Value Reference Range Interpretation Comments Split Point Rapid (test code = Split 0.4 min Point Rapid) [facility] HospitalWeukxvmGTKOXSZBTR0812-81-05 04:41:48 Test Item Value Reference Range Interpretation Comments R-time Rapid (test code = R-time 0.5 min 0.4-0.7 Rapid) [facility] HospitalFrtbcgqIBXJQCEVLK9778-71-35 04:41:48 Test Item Value Reference Range Interpretation Comments Angle Rapid (test code = Angle 76 degrees 64-80 Rapid) [facility] HospitalVqifrbkYRQHQTVMDA4500-49-04 04:41:48 Test Item Value Reference Range Interpretation Comments Max Amplitude Rapid (test code = Max 62 mm 52-71 Amplitude Rapid) [facility] HospitalBkjarrhAAVWURPAEA5815-30-15 04:41:48 Test Item Value Reference Range Interpretation Comments K-time Rapid (test code = K-time 1.2 min 0.6-2.3 Rapid) [facility]SW[facility]FL8499[facility] 04:41:48 Test Item Value Reference Range Interpretation Comments Etoh (%) (test code = Etoh (%)) no gt [place] 32533018-07-13 04:41:48 Test Item Value Reference Range Interpretation Comments Ethanol Lvl (test code = Ethanol Lvl) no gt [facility]2018-07-13 04:41:48 Test Item Value Reference Range Interpretation Comments Lactic Acid Lvl (test code = Lactic 0.8 0.5-2.2 Acid Lvl) [facility]2018-07-13 04:41:48 Test Item Value Reference Range Interpretation Comments Total Protein (test code = Total 7.0 6.4-8.4 Protein) [facility]2018-07-13 04:41:48 Test Item Value Reference Range Interpretation Comments Albumin Lvl (test code = Albumin Lvl) 3.7 3.5-5.0 [facility]2018-07-13 04:41:48 Test Item Value Reference Range Interpretation Comments ALT (test code = ALT) 46 See_Comment [Auto mated message] The system which ge nerated this result transmit karla reference range : <=65. The reference range was not used to interpr et this result as parul l/abnormal. [facility]2018-07-13 04:41:48 Test Item Value Reference Range Interpretation Comments AST (test code = AST) 60 See_Comment [Auto mated message] The system which ge nerated this result transmit karla reference range : <=37. The reference range was not used to interpr et this result as parul l/abnormal. [facility]2018-07-13 04:41:48 Test Item Value Reference Range Interpretation Comments Alk Phos (test code = Alk Phos) 65 39-136 [facility]2018-07-13 04:41:48 Test Item Value Reference Range Interpretation Comments Bili Total (test code = Bili Total) 0.7 0.2-1.3 [facility]2018-07-13 04:41:48 Test Item Value Reference Range Interpretation Comments Bili Indirect (test 0.6 See_Comment [Automa karla message] The code = Bili Indirect) system which generated this result tra nsmitted reference range : <=1.0. The reference r renu was not used to int erpret this result as normal/abnormal . [facility]2018-07-13 04:41:48 Test Item Value Reference Range Interpretation Comments Bili Direct (test code 0.1 See_Comment [Aut omated message] The = Bili Direct) system which generated this result tra nsmitted reference range : <=0.3. The reference r renu was not used to int erpret this result as parul l/abnormal. [facility]2018-07-13 04:41:48 Test Item Value Reference Range Interpretation Comments A/G Ratio (test code = A/G Ratio) 1.1 1 0.7-1.6 [facility]2018-07-13 04:41:48 Test Item Value Reference Range Interpretation Comments Globulin (test code = Globulin) 3.3 2.7-4.2 [facility] HospitalFwysxtkGOTVLHDVKU8326-34-08 04:41:48 Test Item Value Reference Range Interpretation Comments PTT (test code = PTT) 29.3 s 22.9-35.8 [facility] HospitalGzhcvavJHXOMJFBFI6575-19-92 04:41:48 Test Item Value Reference Range Interpretation Comments INR (test code = INR) 1.19 1 0.85-1.17 [facility] HospitalTzajregFVDNVSTVMD3223-48-61 04:41:48 Test Item Value Reference Range Interpretation Comments PT (test code = PT) 15.2 s 12.0-14.7 [facility] HospitalEkwnlzjOISUOYSLIA9096-56-45 04:41:48 Test Item Value Reference Range Interpretation Comments Estimated % Lysis Rapid 1.1 See_Comment [Au tomated message] The (test code = Estimated syste m which generated % Lysis Rapid) this result t ransmitted reference range : <=7.5. The reference r renu was not used to int erpret this result as normal/abnormal . [facility] HospitalBeosnxxLFPRECXXZY3486-59-33 04:41:48 Test Item Value Reference Range Interpretation Comments ACT (TEG) Rapid (test code = ACT (TEG) 97 s 86-118 Rapid) [facility] HospitalZttjdxaVZXPNXRPSR6573-68-80 04:41:48 Test Item Value Reference Range Interpretation Comments G-value Rapid (test code = G-value 8.1 5.0-11.6 Rapid) [facility] HospitalVvuahkiYWLOLRPIPO2946-32-71 04:41:48 Test Item Value Reference Range Interpretation Comments Split Point Rapid (test code = Split 0.4 min Point Rapid) [facility] HospitalAfvlnoaJNPHJXDOCI8570-58-67 04:41:48 Test Item Value Reference Range Interpretation Comments R-time Rapid (test code = R-time 0.5 min 0.4-0.7 Rapid) [facility] HospitalMxrnclvNGUAVCJNWK1272-74-45 04:41:48 Test Item Value Reference Range Interpretation Comments Angle Rapid (test code = Angle 76 degrees 64-80 Rapid) [facility] HospitalRxrjyixXXSKPHEGHB2854-67-79 04:41:48 Test Item Value Reference Range Interpretation Comments Max Amplitude Rapid (test code = Max 62 mm 52-71 Amplitude Rapid) [facility] HospitalExkarqdRQWWTBKJYK7026-88-79 04:41:48 Test Item Value Reference Range Interpretation Comments K-time Rapid (test code = K-time 1.2 min 0.6-2.3 Rapid) [facility]BwdnkbiUFOGWXDSPL2492-82-76 04:41:48 Test Item Value Reference Range Interpretation Comments Etoh (%) (test code = Etoh (%)) no gt [facility] HeightsHhjctwmBHYCKCITFD7452-60-05 04:41:48 Test Item Value Reference Range Interpretation Comments Ethanol Lvl (test code = Ethanol Lvl) no gt [facility]2018-07-13 04:41:48 Test Item Value Reference Range Interpretation Comments Lactic Acid Lvl (test code = Lactic 0.8 0.5-2.2 Acid Lvl) [facility]2018-07-13 04:41:48 Test Item Value Reference Range Interpretation Comments Total Protein (test code = Total 7.0 6.4-8.4 Protein) [facility]2018-07-13 04:41:48 Test Item Value Reference Range Interpretation Comments Albumin Lvl (test code = Albumin Lvl) 3.7 3.5-5.0 [facility]2018-07-13 04:41:48 Test Item Value Reference Range Interpretation Comments ALT (test code = ALT) 46 See_Comment [Auto mated message] The system which ge nerated this result transmit karla reference range : <=65. The reference range was not used to interpr et this result as parul l/abnormal. [facility]2018-07-13 04:41:48 Test Item Value Reference Range Interpretation Comments AST (test code = AST) 60 See_Comment [Auto mated message] The system which ge nerated this result transmit karla reference range : <=37. The reference range was not used to interpr et this result as parul l/abnormal. [facility]2018-07-13 04:41:48 Test Item Value Reference Range Interpretation Comments Alk Phos (test code = Alk Phos) 65 39-136 [facility]2018-07-13 04:41:48 Test Item Value Reference Range Interpretation Comments Bili Total (test code = Bili Total) 0.7 0.2-1.3 [facility]2018-07-13 04:41:48 Test Item Value Reference Range Interpretation Comments Bili Indirect (test 0.6 See_Comment [Automa karla message] The code = Bili Indirect) system which generated this result tra nsmitted reference range : <=1.0. The reference r renu was not used to int erpret this result as normal/abnormal . [facility]2018-07-13 04:41:48 Test Item Value Reference Range Interpretation Comments Bili Direct (test code 0.1 See_Comment [Aut omated message] The = Bili Direct) system which generated this result tra nsmitted reference range : <=0.3. The reference r renu was not used to int erpret this result as parul l/abnormal. [facility]2018-07-13 04:41:48 Test Item Value Reference Range Interpretation Comments A/G Ratio (test code = A/G Ratio) 1.1 1 0.7-1.6 [facility]2018-07-13 04:41:48 Test Item Value Reference Range Interpretation Comments Globulin (test code = Globulin) 3.3 2.7-4.2 [place] 411608-07-13 04:41:48 Test Item Value Reference Range Interpretation Comments PTT (test code = PTT) 29.3 s 22.9-35.8 [facility] HospitalDccvjdgCZUIVNBHUS0119-10-41 04:41:48 Test Item Value Reference Range Interpretation Comments INR (test code = INR) 1.19 1 0.85-1.17 [facility] HospitalHxbgzroDIFVSFCCPZ4725-54-47 04:41:48 Test Item Value Reference Range Interpretation Comments PT (test code = PT) 15.2 s 12.0-14.7 [facility] HospitalTiawptvKIGBQSNVNI5961-78-85 04:41:48 Test Item Value Reference Range Interpretation Comments Estimated % Lysis Rapid 1.1 See_Comment [Au tomated message] The (test code = Estimated syste m which generated % Lysis Rapid) this result t ransmitted reference range : <=7.5. The reference r renu was not used to int erpret this result as normal/abnormal . [facility] HospitalOtqbwyvBGVTMQACZJ6780-03-06 04:41:48 Test Item Value Reference Range Interpretation Comments ACT (TEG) Rapid (test code = ACT (TEG) 97 s 86-118 Rapid) [facility] HospitalCamilvzOBLRIXOZEZ0664-25-98 04:41:48 Test Item Value Reference Range Interpretation Comments G-value Rapid (test code = G-value 8.1 5.0-11.6 Rapid) [facility] HospitalCnelqelITQECCAATW3649-42-48 04:41:48 Test Item Value Reference Range Interpretation Comments Split Point Rapid (test code = Split 0.4 min Point Rapid) [facility] HospitalZvakwkmUWFETYOFSD8899-92-16 04:41:48 Test Item Value Reference Range Interpretation Comments R-time Rapid (test code = R-time 0.5 min 0.4-0.7 Rapid) [facility] HospitalPsxkqgcYMTLLSVSNB0465-59-63 04:41:48 Test Item Value Reference Range Interpretation Comments Angle Rapid (test code = Angle 76 degrees 64-80 Rapid) [facility] HospitalFevjddeNIETEEFFML5265-32-06 04:41:48 Test Item Value Reference Range Interpretation Comments Max Amplitude Rapid (test code = Max 62 mm 52-71 Amplitude Rapid) [facility] HospitalRgehnigFHEVMCSOGJ1026-68-01 04:41:48 Test Item Value Reference Range Interpretation Comments K-time Rapid (test code = K-time 1.2 min 0.6-2.3 Rapid) [place] 32533018-07-13 04:41:48 Test Item Value Reference Range Interpretation Comments Etoh (%) (test code = Etoh (%)) no gt [place] 32533018-07-13 04:41:48 Test Item Value Reference Range Interpretation Comments Ethanol Lvl (test code = Ethanol Lvl) no gt [facility]2018-07-13 04:41:48 Test Item Value Reference Range Interpretation Comments Lactic Acid Lvl (test code = Lactic 0.8 0.5-2.2 Acid Lvl) [facility]2018-07-13 04:41:48 Test Item Value Reference Range Interpretation Comments Total Protein (test code = Total 7.0 6.4-8.4 Protein) [facility]2018-07-13 04:41:48 Test Item Value Reference Range Interpretation Comments Albumin Lvl (test code = Albumin Lvl) 3.7 3.5-5.0 [facility]2018-07-13 04:41:48 Test Item Value Reference Range Interpretation Comments ALT (test code = ALT) 46 See_Comment [Auto mated message] The system which ge nerated this result transmit karla reference range : <=65. The reference range was not used to interpr et this result as parul l/abnormal. [facility]2018-07-13 04:41:48 Test Item Value Reference Range Interpretation Comments AST (test code = AST) 60 See_Comment [Auto mated message] The system which ge nerated this result transmit karla reference range : <=37. The reference range was not used to interpr et this result as parul l/abnormal. [facility]2018-07-13 04:41:48 Test Item Value Reference Range Interpretation Comments Alk Phos (test code = Alk Phos) 65 39-136 [facility]2018-07-13 04:41:48 Test Item Value Reference Range Interpretation Comments Bili Total (test code = Bili Total) 0.7 0.2-1.3 [place] 792678-07-13 04:41:48 Test Item Value Reference Range Interpretation Comments Bili Indirect (test 0.6 See_Comment [Automa karla message] The code = Bili Indirect) system which generated this result tra nsmitted reference range : <=1.0. The reference r renu was not used to int erpret this result as normal/abnormal . [facility]2018-07-13 04:41:48 Test Item Value Reference Range Interpretation Comments Bili Direct (test code 0.1 See_Comment [Aut omated message] The = Bili Direct) system which generated this result tra nsmitted reference range : <=0.3. The reference r renu was not used to int erpret this result as parul l/abnormal. [facility]2018-07-13 04:41:48 Test Item Value Reference Range Interpretation Comments A/G Ratio (test code = A/G Ratio) 1.1 1 0.7-1.6 [facility]2018-07-13 04:41:48 Test Item Value Reference Range Interpretation Comments Globulin (test code = Globulin) 3.3 2.7-4.2 [facility] HospitalYtrbcejBFWUVHMJYA2194-39-07 04:41:48 Test Item Value Reference Range Interpretation Comments PTT (test code = PTT) 29.3 s 22.9-35.8 [facility] HospitalVzjfrahCUSKMOFHJX1113-26-47 04:41:48 Test Item Value Reference Range Interpretation Comments INR (test code = INR) 1.19 1 0.85-1.17 [place] 411608-07-13 04:41:48 Test Item Value Reference Range Interpretation Comments PT (test code = PT) 15.2 s 12.0-14.7 [facility] HospitalMjvwbksLEMDJCXHPH6989-10-06 04:41:48 Test Item Value Reference Range Interpretation Comments Estimated % Lysis Rapid 1.1 See_Comment [Au tomated message] The (test code = Estimated syste m which generated % Lysis Rapid) this result t ransmitted reference range : <=7.5. The reference r renu was not used to int erpret this result as normal/abnormal . [facility] HospitalDrknbsbRQNHJZFYSJ1550-76-19 04:41:48 Test Item Value Reference Range Interpretation Comments ACT (TEG) Rapid (test code = ACT (TEG) 97 s 86-118 Rapid) [facility] HospitalZmuliweKUANEQMFXF8386-54-73 04:41:48 Test Item Value Reference Range Interpretation Comments G-value Rapid (test code = G-value 8.1 5.0-11.6 Rapid) [facility] HospitalUbwvaqyVJAPQVMWGP1309-31-17 04:41:48 Test Item Value Reference Range Interpretation Comments Split Point Rapid (test code = Split 0.4 min Point Rapid) [facility] HospitalXgqyuumWNQPFHSYSU0938-46-71 04:41:48 Test Item Value Reference Range Interpretation Comments R-time Rapid (test code = R-time 0.5 min 0.4-0.7 Rapid) [facility] HospitalUootbhuWVSRTZVQTA4938-91-48 04:41:48 Test Item Value Reference Range Interpretation Comments Angle Rapid (test code = Angle 76 degrees 64-80 Rapid) [facility] HospitalYqrlfmfPSSTTVDPDD5154-49-87 04:41:48 Test Item Value Reference Range Interpretation Comments Max Amplitude Rapid (test code = Max 62 mm 52-71 Amplitude Rapid) [facility] HospitalAcqccdpKYZNXLCHGQ7847-49-23 04:41:48 Test Item Value Reference Range Interpretation Comments K-time Rapid (test code = K-time 1.2 min 0.6-2.3 Rapid) [facility]QtwegdwDRZVGYNBIF0329-85-99 04:41:48 Test Item Value Reference Range Interpretation Comments Etoh (%) (test code = Etoh (%)) no [facility]ccxgifYPBDKQKLSX5255-01-68 04:41:48 Test Item Value Reference Range Interpretation Comments Ethanol Lvl (test code = Ethanol Lvl) no gt [facility] HeightsCHEM NZYMP3490-91-75 04:41:48 Test Item Value Reference Range Interpretation Comments Lactic Acid Lvl (test code = Lactic 0.8 0.5-2.2 Acid Lvl) [place] 792678-07-13 04:41:48 Test Item Value Reference Range Interpretation Comments Total Protein (test code = Total 7.0 6.4-8.4 Protein) [place] 792678-07-13 04:41:48 Test Item Value Reference Range Interpretation Comments Albumin Lvl (test code = Albumin Lvl) 3.7 3.5-5.0 [place] 792678-07-13 04:41:48 Test Item Value Reference Range Interpretation Comments ALT (test code = ALT) 46 See_Comment [Auto mated message] The system which ge nerated this result transmit karla reference range : <=65. The reference range was not used to interpr et this result as parul l/abnormal. [place] 792678-07-13 04:41:48 Test Item Value Reference Range Interpretation Comments AST (test code = AST) 60 See_Comment [Auto mated message] The system which ge nerated this result transmit karla reference range : <=37. The reference range was not used to interpr et this result as parul l/abnormal. [facility]2018-07-13 04:41:48 Test Item Value Reference Range Interpretation Comments Alk Phos (test code = Alk Phos) 65 39-136 [facility]2018-07-13 04:41:48 Test Item Value Reference Range Interpretation Comments Bili Total (test code = Bili Total) 0.7 0.2-1.3 [place] 792678-07-13 04:41:48 Test Item Value Reference Range Interpretation Comments Bili Indirect (test 0.6 See_Comment [Automa karla message] The code = Bili Indirect) system which generated this result tra nsmitted reference range : <=1.0. The reference r renu was not used to int erpret this result as normal/abnormal . [place] 792678-07-13 04:41:48 Test Item Value Reference Range Interpretation Comments Bili Direct (test code 0.1 See_Comment [Aut omated message] The = Bili Direct) system which generated this result tra nsmitted reference range : <=0.3. The reference r renu was not used to int erpret this result as parul l/abnormal. [facility]2018-07-13 04:41:48 Test Item Value Reference Range Interpretation Comments A/G Ratio (test code = A/G Ratio) 1.1 1 0.7-1.6 [facility]2018-07-13 04:41:48 Test Item Value Reference Range Interpretation Comments Globulin (test code = Globulin) 3.3 2.7-4.2 [facility] HospitalOpudttgHZNLBAJAMV0789-19-63 04:41:48 Test Item Value Reference Range Interpretation Comments PTT (test code = PTT) 29.3 s 22.9-35.8 [facility] HospitalSepvuqqWOTWRWYMMM5126-24-63 04:41:48 Test Item Value Reference Range Interpretation Comments INR (test code = INR) 1.19 1 0.85-1.17 [facility] HospitalNisqnreAJXLJHJLOP2568-39-36 04:41:48 Test Item Value Reference Range Interpretation Comments PT (test code = PT) 15.2 s 12.0-14.7 [facility] HospitalZskprksTEAZHNBPVS0511-72-48 04:41:48 Test Item Value Reference Range Interpretation Comments Estimated % Lysis Rapid 1.1 See_Comment [Au tomated message] The (test code = Estimated syste m which generated % Lysis Rapid) this result t ransmitted reference range : <=7.5. The reference r renu was not used to int erpret this result as normal/abnormal . [facility] HospitalRdatyktAUSOJCOZHF9400-83-64 04:41:48 Test Item Value Reference Range Interpretation Comments ACT (TEG) Rapid (test code = ACT (TEG) 97 s 86-118 Rapid) [facility] HospitalKghmnxqZEUMZDTPXT6238-90-57 04:41:48 Test Item Value Reference Range Interpretation Comments G-value Rapid (test code = G-value 8.1 5.0-11.6 Rapid) [facility] HospitalIxgahxhYWVTQEPMYS6117-21-92 04:41:48 Test Item Value Reference Range Interpretation Comments Split Point Rapid (test code = Split 0.4 min Point Rapid) [facility] HospitalJpgmdjnFUUHYRLYHI5485-51-66 04:41:48 Test Item Value Reference Range Interpretation Comments R-time Rapid (test code = R-time 0.5 min 0.4-0.7 Rapid) [facility] HospitalRsmqvhmYBWBXCKUOH1098-22-85 04:41:48 Test Item Value Reference Range Interpretation Comments Angle Rapid (test code = Angle 76 degrees 64-80 Rapid) [facility] HospitalJourupfMKRXUUPKDA5431-68-86 04:41:48 Test Item Value Reference Range Interpretation Comments Max Amplitude Rapid (test code = Max 62 mm 52-71 Amplitude Rapid) [facility] HospitalKdphsieVZNPTKIKYG4038-86-42 04:41:48 Test Item Value Reference Range Interpretation Comments K-time Rapid (test code = K-time 1.2 min 0.6-2.3 Rapid) [facility] [id number] 04:41:48 Test Item Value Reference Range Interpretation Comments Etoh (%) (test code = Etoh (%)) no gt [id number] 04:41:48 Test Item Value Reference Range Interpretation Comments Ethanol Lvl (test code = Ethanol Lvl) no gt [facility]
--- NOTE | 2023-03-01 08:40 | RAD REPORT ---
EXAM DESCRIPTION: CT - Head C Spine Cap Antoine Villalobos - 03/01/2023 8:13 am CLINICAL HISTORY: Head and neck pain. Chest and abdominal pain. Dysuria. Tremors. Fever TECHNIQUE: Computed axial tomography of head, neck, chest, abdomen and pelvis obtained. IV and oral contrast not requested. Coronal and sagittal reconstruction performed. All CT scans are performed using dose optimization technique as appropriate and may include automated exposure control or mA/KV adjustment according to patient size. COMPARISON: 2021 FINDINGS: An intracranial bleed is not seen. 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 The ventricles are normal in caliber. An extra-axial fluid collection is not noted. . Fluid within the sinuses/mastoids is not seen. A cervical fracture is not seen. No dislocation is noted. 10 millimeter lucency within C2 unchanged. No high-grade stenosis seen The evaluation of mediastinum, richard, vessels, solid organs and bowel are limited secondary to the lac k of contrast administration. Mild left lower lobe atelectasis No mediastinal or hilar lymphadenopathy. Coronary arterial calcifications. No pleural effusion. No pericardial 4 centimeter hepatic cyst minimally enlarged. Cholecystectomy. There may be mild chronic liver diseas e Spleen, pancreas, adrenals and kidneys grossly normal. Filter within the IVC 3.5 centimeter right common iliac artery aneurysm AP diameter without significant change. No evidence of diverticulitis. Moderate right and small left inguinal hernias IMPRESSION: No acute intracranial abnormality is seen. A cervical fracture is not visualized. If the patient continues have symptoms to suggest intracrania l/spinal cord pathology MRI be recommended Stable 3.5 centimeter right common iliac artery aneurysm Moderate right inguinal hernia
[2023-03-01] MEDS ORDERED: ACETAMINOPHEN 500 MG TAB ONE (08:46)
--- NOTE | 2023-03-01 08:48 | RAD REPORT ---
EXAM DESCRIPTION: Bam Single View03/01/2023 8:25 am CLINICAL HISTORY: Cough COMPARISON: October 2022 FINDINGS: Mild left lower lobe atelectasis with elevation of the left hemidiaphragm. It is unchanged Right lung appears clear Cardiomegaly. Postsurgical changes involve chest
[2023-03-01] MEDS ORDERED: VANCOMYCIN 1 GM/VIAL ONE (09:20)
[2023-03-01] MEDS ORDERED: Levofloxacin500mg IV 500 MG/100 ML BAG IV ONE (09:21)
[2023-03-01 09:34] LABS: Albumin 3.1 g/dL (3.4-5.0); Bilirubin Direct 0.3 mg/dL (0-0.2); Bilirubin Indirect, Calculated 0.3 mg/dL (0.2-0.8); Bilirubin Total 0.6 mg/dL (0.2-1.0); Magnesium 1.7 mg/dL (1.6-2.4); Protein, Total 6.5 g/dL (6.4-8.2); Troponin High Sensitivity 26.3 pg/mL (<58.9)
--- NOTE | 2023-03-01 10:08 | RAD REPORT ---
EXAM DESCRIPTION: RAD - Foot Left 3 View - 03/01/2023 9:31 am CLINICAL HISTORY: Left Foot pain FINDINGS: No fracture or dislocation is seen. A radiopaque foreign body not noted
--- NOTE | 2023-03-01 10:11 | ER ---
Nurse's Notes [facility] Name: Octavio Bueno Age: 77 yrs Sex: Male : 1945 Arrival Date: 03/01/2023 Time: 07:52 Bed 20 Private MD: Diagnosis: Toxic effect of contact with other venomous marine animals, undetermined, initial encounter;Cellulitis and acute lymphangitis of other parts of limb-left foot;Fever, unspecified;Sepsis, unspecified organism;Heart transplant status;Hypokalemia;Acute kidney failure, unspecified-ACUTE ON CHRONIC;Hypotension, unspecified Presentation: 03/01 07:56 Chief complaint: EMS states: he was fishing in the [facility] yesterday when he got stung by ap3 something on his left foot. patient reports that this morning he started feeling cold, having tremors, and having fever. EMS reports patients temp was 103 in route. they initiated an 18g IV to the left forearm and started NS, and administered 4mg zofran IV. EMS states that pt reported painful urination, however it is also reported to be the patients normal. Coronavirus screen: At this time, the client does not indicate any symptoms associated with coronavirus-19. Ebola Screen: No symptoms or risks identified at this time. Initial Sepsis Screen: Does the patient meet any 2 criteria? Yes Does the patient have a suspected source of infection? Yes: If YES to both, name of provider notified: Steven Esquivel MD Risk Assessment: Do you want to hurt yourself or someone else? Patient reports no desire to harm self or others. Onset of symptoms was March 01, 2023. Care prior to arrival: Medication(s) given: Normal saline infusion, zofran 4 mg, IV initiated. 18 GA, in the left forearm. 07:56 Method Of Arrival: EMS: [place] ap3 07:56 Acuity: YAHIR 2 ap3 Triage Assessment: 08:03 General: Appears distressed, Behavior is cooperative. Pain: Complains of pain in left ap3 foot. Neuro: Level of Consciousness is awake, Oriented to person, place, time, situation. Cardiovascular: Patient's skin is warm and dry. Respiratory: Airway is patent Respiratory effort is even, Respiratory pattern is tachypnea. Derm:. Musculoskeletal: Reports sting to the left foot last night in [facility] while fishing. 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 [Active]; prednisone 5 mg Oral Tablet, Dose Pack 1 tab daily [Active]; Novolin 70/30 Innolet 8 Units Sub-Q 70-30 unit/mL twice a day [Active]; allopurinol 100 mg Oral tablet 2 times per day [Active]; alprazolam 0.5 mg Oral Tablet, Extended Release 24 hr daily [Active]; amlodipine 5 mg tablet daily [Active]; finasteride 5 mg oral tablet once [Active]; folic acid 1 mg Oral tablet daily [Active]; gabapentin 400 mg oral capsule 3 times per day [Active]; isosorbide mononitrate 30 mg Oral Tablet, Extended Release 24 hr daily [Active]; metolazone 2.5 mg oral tablet as needed [Active]; potassium chloride 10 mEq Oral Tablet, ER Particles/Crystals daily [Active]; prevastatin 80MG daily 80 mg daily [Active]; 16:48 sertraline 50 mg oral tablet daily [Active]; tamsulosin 0.4 mg oral capsule daily sg5 [Active]; torsemide 40 mg oral tablet daily [Active]; tramadol 50 mg Oral tablet as needed [Active]; - PMHx: 08:03 BILE DUCT CANCER; Chronic kidney disease stage V; Diabetes - IDDM; Gout; ap3 Hyperlipidemia; Hypertension; Migraines r/t head injury; Myocardial infarction; - PSHx: 08:03 Cholecystectomy; Heart transplant; hernia; ap3 - Immunization history:: Adult Immunizations up to date, Client reports receiving the 2nd dose of the Covid vaccine. - Social history:: Smoking status: Patient denies any tobacco usage or history of. - Family history:: not pertinent. Screenin:03 Abuse screen: Denies threats or abuse. Nutritional screening: No deficits noted. ap3 Tuberculosis screening: No symptoms or risk factors identified. 19:03 [facility] ED Fall Risk Assessment (Adult) History of falling in the last 3 months, sg5 including since admission No falls in past 3 months (0 pts). Assessment: 09:03 General: Appears distressed, uncomfortable, Behavior is restless, Reports chills for sg5 0-12 hours, fever for 0-12 hours, feeling ill for 0-12 hours. Pain: Complains of pain in left foot. Neuro: Level of Consciousness is awake, alert, obeys commands, Oriented to person, place, time, situation, Appropriate for age. Cardiovascular: Capillary refill < 3 seconds Patient's skin is warm and dry. Rhythm is sinus tachycardia. Respiratory: Airway is patent Trachea midline Respiratory pattern is hyperventilation diminished bases. GI: Abdomen is round non-distended. Derm: skin tears and bruising to arms and lower legs. 14:44 Reassessment: No changes from previously documented assessment. Patient and/or family sg5 updated on plan of care and expected duration. Pain level reassessed. Patient is alert, oriented x 3, equal unlabored respirations, skin warm/dry/pink. 18:05 Reassessment: Report called to nurse Velazquez at 1748. sg5 18:54 Reassessment: [place] [facility] loading patient for transport. sg5 Vital Signs: 07:56 BP 121 / 84; Pulse 147; Resp 27; Pulse Ox 85% on R/A; ap3 08:00 BP 137 / 70; Pulse 125; Resp 30; Temp 103; Pulse Ox 100% on 15 lpm Non-rebreather mask; sg5 Pain 9/10; 08:02 Pulse Ox 100% on Non-rebreather mask; ap3 08:14 Weight 83.19 kg; sg5 08:30 BP 136 / 67; Pulse 119; Resp 28; Pulse Ox 99% on 15 lpm Non-rebreather mask; Pain 9/10; sg5 09:00 BP 140 / 67; Pulse 117; Resp 26; Pulse Ox 100% on 15 lpm Non-rebreather mask; Pain 9/10;sg5 09:30 BP 129 / 64; Pulse 114; Resp 28; Temp 99; Pulse Ox 100% on 15 lpm Non-rebreather mask; sg5 Pain 8/10; 10:00 BP 140 / 70; Pulse 122; Resp 26; Pulse Ox 100% on 15 lpm Non-rebreather mask; Pain 8/10;sg5 10:30 BP 125 / 73; Pulse 119; Resp 28; Pulse Ox 100% on 15 lpm Non-rebreather mask; Pain 8/10;sg5 11:00 BP 111 / 77; Pulse 109; Resp 26; Pulse Ox 100% on 15 lpm Non-rebreather mask; Pain 9/10;sg5 11:30 BP 94 / 84; Pulse 107; Resp 24; Temp 98.4; Pulse Ox 96% on 3 lpm NC; Pain 7/10; sg5 12:00 BP 121 / 60; Pulse 106; Resp 24; Pulse Ox 94% on 3 lpm NC; Pain 7/10; sg5 12:30 BP 112 / 38; Pulse 105; Resp 26; Pulse Ox 94% on 3 lpm NC; Pain 6/10; sg5 13:00 BP 96 / 68; Pulse 102; Resp 24; Pulse Ox 92% on 3 lpm NC; Pain 6/10; sg5 13:30 BP 118 / 73; Pulse 101; Resp 24; Pulse Ox 94% on 3 lpm NC; Pain 5/10; sg5 14:00 BP 115 / 70; Pulse 103; Resp 24; Pulse Ox 96% on 3 lpm NC; Pain 6/10; sg5 14:30 BP 106 / 61; Pulse 102; Resp 24; Pulse Ox 94% on 3 lpm NC; Pain 6/10; sg5 15:00 BP 83 / 50; Pulse 102; Resp 22; Pulse Ox 92% on 3 lpm NC; Pain 8/10; sg5 15:30 BP 107 / 55; Pulse 105; Resp 24; Pulse Ox 95% on 3 lpm NC; Pain 6/10; sg5 16:00 BP 99 / 58; Pulse 103; Resp 18; Temp 98.9; Pulse Ox 92% on 3 lpm NC; Pain 7/10; sg5 16:30 BP 101 / 62; Pulse 102; Resp 18; Pulse Ox 94% on 3 lpm NC; Pain 7/10; sg5 17:00 BP 84 / 52; Pulse 101; Resp 20; Pulse Ox 92% on 3 lpm NC; Pain 6/10; sg5 17:30 BP 93 / 57; Pulse 102; Resp 20; Pulse Ox 95% on 3 lpm NC; Pain 7/10; sg5 18:00 BP 84 / 53; Pulse 100; Resp 18; Pulse Ox 92% on 3 lpm NC; Pain 8/10; sg5 18:24 BP 89 / 62; Pulse 101; Resp 22; Pulse Ox 92% on 3 lpm NC; Pain 8/10; sg5 08:00 Pain Scale: Adult sg5 08:30 Pain Scale: Adult sg5 09:00 Pain Scale: Adult sg5 09:30 Pain Scale: Adult sg5 10:00 Pain Scale: Adult sg5 10:30 Pain Scale: Adult sg5 11:00 Pain Scale: Adult sg5 11:30 Pain Scale: Adult sg5 12:00 Pain Scale: Adult sg5 12:30 Pain Scale: Adult sg5 13:00 Pain Scale: Adult sg5 13:30 Pain Scale: Adult sg5 14:00 Pain Scale: Adult sg5 14:30 Pain Scale: Adult sg5 15:00 Pain Scale: Adult sg5 15:30 Pain Scale: Adult sg5 16:00 Pain Scale: Adult sg5 16:30 Pain Scale: Adult sg5 17:00 Pain Scale: Adult sg5 17:30 Pain Scale: Adult sg5 18:00 Pain Scale: Adult sg5 18:24 Pain Scale: Adult sg5 ED Course: 07:54 Patient arrived in ED. sg5 07:58 Steven Esquivel MD is Attending Physician. [facility] 07:59 Triage completed. ap3 08:04 Arm band placed on right wrist. ap3 08:04 Patient has correct armband on for positive identification. Bed in low position. Call ap3 light in reach. Side rails up X2. Adult w/ patient. fundraising assistant on. Pulse ox on. NIBP on. 08:09 EKG done, by ED staff, reviewed by Steven Esquivel MD. em1 08:13 Rebecca Soliman, RN is Primary Nurse. sg5 08:15 CT Traumagram (Head C Spine CAP wo con) In Process Unspecified. EDMS 08:15 Inserted saline lock: 20 gauge in right wrist, using aseptic technique. Blood collected.sg5 08:15 Maintain EMS IV. Dressing intact. Site clean \T\ dry. Gauge \T\ site: 18 G Left forearm. sg 5 08:27 XRAY Chest (1 view) In Process Unspecified. EDMS 09:33 Foot Left 3 View XRAY In Process Unspecified. EDMS 09:45 initiated transfer to [facility]. bd 09:59 SARS RAPID Sent. em1 09:59 Flu Sent. em1 09:59 COVID swab sent to lab. Flu and/or RSV swab sent to lab. em1 13:05 US Extremity Venous W Compression Bharathi In Process Unspecified. EDMS 15:53 Villa cath inserted, using sterile technique, 16 Fr., by ms, balloon inflated, to sg5 gravity drainage. 16:41 pt denied at [facility] due to no beds at this time. bd 16:42 initiated transfer to [place], pt denied due to no beds, per daisy tatum. bd 16:43 initiated transfer to [facility]. bd 16:[address] [facility] due to no beds per [facility] [place]. bd 17:12 pt denied at [facility] due to no beds, per Qian. bd 17:22 pt accepted in transfer to [facility] by Dr Savannah Clements, admin approval given bd by Margret Tena. 19:01 No provider procedures requiring assistance completed. Patient transferred, IV remains sg5 in place. Administered Medications: 08:27 Drug: NS 0.9% IV (30 ml/kg) 30 ml/kg {Note: First Bolus 0828.} Route: IV; Rate: bolus; sg5 Site: right wrist; 08:28 Drug: Famotidine IVP 20 mg Route: IVP; Site: right wrist; sg5 08:40 Drug: Acetaminophen PO 1000 mg Route: PO; sg5 08:59 Drug: NS 0.9% IV (30 ml/kg) 30 ml/kg {Note: second liter to left forearm.} Route: IV; sg5 Rate: bolus; Site: left forearm; 08:59 Drug: Rocephin IV 1 grams Route: IV; Rate: per protocol; Site: left forearm; sg5 09:30 Follow up: IV Status: Completed infusion; IV Intake: 100ml sg5 09:22 Drug: NS 0.9% IV (30 ml/kg) 30 ml/kg {Note: 500ml right wrist 0923.} Route: IV; Rate: sg5 bolus; Site: right wrist; 09:22 Follow up: IV Intake: 1500ml sg5 09:22 Drug: vancoMYCIN IVPB 1 grams Route: IVPB; Infused Over: 2 hrs; Site: left forearm; sg5 11:08 Follow up: IV Status: Completed infusion sg5 09:30 Drug: levofloxacin IVPB 500 mg Volume: 100 ml; Route: IVPB; Infused Over: 60 mins; sg5 Site: left forearm; 11:08 Follow up: IV Status: Completed infusion sg5 11:47 Drug: NS 0.9% with KCl IV 20 mEq/L 1000 ml Route: IV; Rate: 125 ml/min; Site: right sg5 wrist; 11:47 Drug: Potassium PO Effervescent Tablet 25 mEq Route: PO; sg5 13:47 Drug: diphenhydrAMINE IVP 12.5 mg Route: IVP; Site: left forearm; sg5 13:48 Drug: fentaNYL (PF) IVP 25 mcg Route: IVP; Site: left forearm; sg5 13:48 Drug: Ondansetron IVP 4 mg Route: IVP; Site: left forearm; sg5 14:41 Drug: Doxycycline PO 100 mg Route: PO; sg5 14:41 Drug: cefTAZidime IVPB 2 grams Route: IVPB; Infused Over: 30 mins; Site: left forearm; sg5 15:14 Follow up: IV Status: Completed infusion; IV Intake: 100ml sg5 15:14 Drug: vibramycin - Doxycycline IVPB 100 mg Route: IVPB; Rate: 100 ml/hr; Site: left sg5 forearm; 15:55 Drug: NS 0.9% IV 1000 ml Route: IV; Rate: 1 bolus; Site: left forearm; sg5 16:59 Follow up: IV Status: Completed infusion; IV Intake: 1000ml sg5 15:57 Drug: Tetanus Toxoid,Adsorbed IM 0.5 ml {Track Layer Head: Riptide IO. Exp: 01/31/2024. sg5 Lot #: [id number]. } Route: IM; Site: right deltoid; 15:58 Drug: Acetaminophen PO 650 mg Route: PO; sg5 Medication: 13:49 Vaccine Information Statement (VIS) provided today. Questions and/or concerns sg5 addressed. VIS edition date: May 02, 2023. Intake: 09:22 IV: 1500ml; Total: 1500ml. sg5 09:30 IV: 100ml; Total: 1600ml. sg5 15:14 IV: 100ml; Total: 1700ml. sg5 16:59 IV: 1000ml; Total: 2700ml. sg5 Output: 16:35 Urine: 100ml (Villa); Total: 100ml. sg5 Outcome: 10:11 ER care complete, transfer ordered by . rob 19:01 Transferred by [facility]. Transfer form completed. sg5 19:01 Condition: stable 19:01 Discharge instructions given to patient, family, Instructed on the need for transfer. 19:03 Patient left the ED. sg5 Signatures: Dispatcher [employer] Hallie Gonzalez Corey, MD MD cha Martinez, Eric em1 Mariluz Arguello, RN RN ap3 Rebecca Soliman RN RN sg5
--- NOTE | 2023-03-01 10:11 | EDPHYS ---
Physician Documentation [facility] Name: Octavio Bueno Age: 77 yrs Sex: Male : 1945 Arrival Date: 03/01/2023 Time: 07:52 Bed 20 Private MD: MILADY Physician Steven Esquivel HPI: 03/01 09:59 This 77 yrs old Male presents to ER via EMS with complaints of fever , left rob foot envenomation. 09:59 The patient presents with decreased range of motion, an injury, pain, swelling, rob tenderness. The complaints affect the left lateral ankle, left medial ankle and medial aspect of left foot. Context: resulted from sting in water. Onset: The symptoms/episode began/occurred last night. Modifying factors: The symptoms are alleviated by elevating leg, remaining still, the symptoms are aggravated by movement. Associated signs and symptoms: Pertinent positives: fever, swelling, weakness, of the left medial ankle and medial aspect of left foot. The patient has shortness of breath with light activity. Duration: The symptoms are continuous, and are steadily getting worse. The patient's shortness of breath is aggravated by exertion, light activity, is alleviated by elevating head, rest, sitting up, application of supplemental oxygen. Associated signs and symptoms: Pertinent positives: non-productive cough, dizziness, fever. Severity of symptoms: At their worst the symptoms were moderate in the emergency department the symptoms are unchanged. Severity of symptoms: At their worst the symptoms were moderate, in the emergency department the symptoms are unchanged. Treatment prior to arrival includes: no previous treatment. 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 [Active]; prednisone 5 mg Oral Tablet, Dose Pack 1 tab daily [Active]; Novolin 70/30 Innolet 8 Units Sub-Q 70-30 unit/mL twice a day [Active]; allopurinol 100 mg Oral tablet 2 times per day [Active]; alprazolam 0.5 mg Oral Tablet, Extended Release 24 hr daily [Active]; amlodipine 5 mg tablet daily [Active]; finasteride 5 mg oral tablet once [Active]; folic acid 1 mg Oral tablet daily [Active]; gabapentin 400 mg oral capsule 3 times per day [Active]; isosorbide mononitrate 30 mg Oral Tablet, Extended Release 24 hr daily [Active]; metolazone 2.5 mg oral tablet as needed [Active]; potassium chloride 10 mEq Oral Tablet, ER Particles/Crystals daily [Active]; prevastatin 80MG daily 80 mg daily [Active]; 16:48 sertraline 50 mg oral tablet daily [Active]; tamsulosin 0.4 mg oral capsule daily sg5 [Active]; torsemide 40 mg oral tablet daily [Active]; tramadol 50 mg Oral tablet as needed [Active]; - PMHx: 08:03 BILE DUCT CANCER; Chronic kidney disease stage V; Diabetes - IDDM; Gout; ap3 Hyperlipidemia; Hypertension; Migraines r/t head injury; Myocardial infarction; - PSHx: 08:03 Cholecystectomy; Heart transplant; hernia; ap3 - Immunization history:: Adult Immunizations up to date, Client reports receiving the 2nd dose of the Covid vaccine. - Social history:: Smoking status: Patient denies any tobacco usage or history of. - Family history:: not pertinent. ROS: 09:59 Constitutional: Negative for fever, chills, and weight loss, Eyes: Negative for injury, rob pain, redness, and discharge, ENT: Negative for injury, pain, and discharge, Neck: Negative for injury, pain, and swelling, Cardiovascular: Negative for chest pain, palpitations, and edema, Abdomen/GI: Negative for abdominal pain, nausea, vomiting, diarrhea, and constipation, Back: Negative for injury and pain, : Negative for injury, bleeding, discharge, and swelling, Skin: Negative for injury, rash, and discoloration, Neuro: Negative for headache, weakness, numbness, tingling, and seizure, Psych: Negative for depression, anxiety, suicide ideation, homicidal ideation, and hallucinations, Allergy/Immunology: Negative for hives, rash, and allergies, Endocrine: Negative for neck swelling, polydipsia, polyuria, polyphagia, and marked weight changes, Hematologic/Lymphatic: Negative for swollen nodes, abnormal bleeding, and unusual bruising. 09:59 MS/extremity: Positive for decreased range of motion, erythema, pain, of the left leg. Exam: 09:59 Constitutional: This is a well developed, well nourished patient who is awake, alert, rob and in no acute distress. Head/Face: Normocephalic, atraumatic. Eyes: Pupils equal round and reactive to light, extra-ocular motions intact. Lids and lashes normal. Conjunctiva and sclera are non-icteric and not injected. Cornea within normal limits. Periorbital areas with no swelling, redness, or edema. ENT: Nares patent. No nasal discharge, no septal abnormalities noted. Tympanic membranes are normal and external auditory canals are clear. Oropharynx with no redness, swelling, or masses, exudates, or evidence of obstruction, uvula midline. Mucous membranes moist. Neck: Trachea midline, no thyromegaly or masses palpated, and no cervical lymphadenopathy. Supple, full range of motion without nuchal rigidity, or vertebral point tenderness. No Meningismus. Chest/axilla: Normal chest wall appearance and motion. Nontender with no deformity. No lesions are appreciated. Respiratory: Lungs have equal breath sounds bilaterally, clear to auscultation and percussion. No rales, rhonchi or wheezes noted. No increased work of breathing, no retractions or nasal flaring. Abdomen/GI: Soft, non-tender, with normal bowel sounds. No distension or tympany. No guarding or rebound. No evidence of tenderness throughout. Back: No spinal tenderness. No costovertebral tenderness. Full range of motion. Male : Normal genitalia with no discharge or lesions. Skin: Warm, dry with normal turgor. Normal color with no rashes, no lesions, and no evidence of cellulitis. Neuro: Awake and alert, GCS 15, oriented to person, place, time, and situation. Cranial nerves II-XII grossly intact. Motor strength 5/5 in all extremities. Sensory grossly intact. Cerebellar exam normal. Normal gait. Psych: Awake, alert, with orientation to person, place and time. Behavior, mood, and affect are within normal limits. 09:59 Cardiovascular: Rate: tachycardic, actual rate is 114 bpm, Rhythm: regular, Pulses: Pulses are 4+ in left leg and medial aspect of left foot and left medial ankle. 09:59 Musculoskeletal/extremity: ROM: limited active range of motion, limited passive range of motion, in the left leg, Circulation is intact in all extremities. Sensation intact. Compartment Syndrome exam of affected extremity: is normal. DVT Exam: negative Homans' sign noted on exam, no appreciated bluish discoloration, pain, swelling, tenderness, erythema, increased warmth, that is moderate, of the left leg, of the left medial ankle and medial aspect of left foot. 10:11 ECG was reviewed by the Attending Physician. rob 15:12 Musculoskeletal/extremity: no puncture wound noted on the foot, or the ankle, there was rob only a suspicion of a bite or marine envenomation because pt was standing in brackish water. Vital Signs: 07:56 BP 121 / 84; Pulse 147; Resp 27; Pulse Ox 85% on R/A; ap3 08:00 BP 137 / 70; Pulse 125; Resp 30; Temp 103; Pulse Ox 100% on 15 lpm Non-rebreather mask; sg5 Pain 9/10; 08:02 Pulse Ox 100% on Non-rebreather mask; ap3 08:14 Weight 83.19 kg; sg5 08:30 BP 136 / 67; Pulse 119; Resp 28; Pulse Ox 99% on 15 lpm Non-rebreather mask; Pain 9/10; sg5 09:00 BP 140 / 67; Pulse 117; Resp 26; Pulse Ox 100% on 15 lpm Non-rebreather mask; Pain 9/10;sg5 09:30 BP 129 / 64; Pulse 114; Resp 28; Temp 99; Pulse Ox 100% on 15 lpm Non-rebreather mask; sg5 Pain 8/10; 10:00 BP 140 / 70; Pulse 122; Resp 26; Pulse Ox 100% on 15 lpm Non-rebreather mask; Pain 8/10;sg5 10:30 BP 125 / 73; Pulse 119; Resp 28; Pulse Ox 100% on 15 lpm Non-rebreather mask; Pain 8/10;sg5 11:00 BP 111 / 77; Pulse 109; Resp 26; Pulse Ox 100% on 15 lpm Non-rebreather mask; Pain 9/10;sg5 11:30 BP 94 / 84; Pulse 107; Resp 24; Temp 98.4; Pulse Ox 96% on 3 lpm NC; Pain 7/10; sg5 12:00 BP 121 / 60; Pulse 106; Resp 24; Pulse Ox 94% on 3 lpm NC; Pain 7/10; sg5 12:30 BP 112 / 38; Pulse 105; Resp 26; Pulse Ox 94% on 3 lpm NC; Pain 6/10; sg5 13:00 BP 96 / 68; Pulse 102; Resp 24; Pulse Ox 92% on 3 lpm NC; Pain 6/10; sg5 13:30 BP 118 / 73; Pulse 101; Resp 24; Pulse Ox 94% on 3 lpm NC; Pain 5/10; sg5 14:00 BP 115 / 70; Pulse 103; Resp 24; Pulse Ox 96% on 3 lpm NC; Pain 6/10; sg5 14:30 BP 106 / 61; Pulse 102; Resp 24; Pulse Ox 94% on 3 lpm NC; Pain 6/10; sg5 15:00 BP 83 / 50; Pulse 102; Resp 22; Pulse Ox 92% on 3 lpm NC; Pain 8/10; sg5 15:30 BP 107 / 55; Pulse 105; Resp 24; Pulse Ox 95% on 3 lpm NC; Pain 6/10; sg5 16:00 BP 99 / 58; Pulse 103; Resp 18; Temp 98.9; Pulse Ox 92% on 3 lpm NC; Pain 7/10; sg5 16:30 BP 101 / 62; Pulse 102; Resp 18; Pulse Ox 94% on 3 lpm NC; Pain 7/10; sg5 17:00 BP 84 / 52; Pulse 101; Resp 20; Pulse Ox 92% on 3 lpm NC; Pain 6/10; sg5 17:30 BP 93 / 57; Pulse 102; Resp 20; Pulse Ox 95% on 3 lpm NC; Pain 7/10; sg5 18:00 BP 84 / 53; Pulse 100; Resp 18; Pulse Ox 92% on 3 lpm NC; Pain 8/10; sg5 18:24 BP 89 / 62; Pulse 101; Resp 22; Pulse Ox 92% on 3 lpm NC; Pain 8/10; sg5 08:00 Pain Scale: Adult sg5 08:30 Pain Scale: Adult sg5 09:00 Pain Scale: Adult sg5 09:30 Pain Scale: Adult sg5 10:00 Pain Scale: Adult sg5 10:30 Pain Scale: Adult sg5 11:00 Pain Scale: Adult sg5 11:30 Pain Scale: Adult sg5 12:00 Pain Scale: Adult sg5 12:30 Pain Scale: Adult sg5 13:00 Pain Scale: Adult sg5 13:30 Pain Scale: Adult sg5 14:00 Pain Scale: Adult sg5 14:30 Pain Scale: Adult sg5 15:00 Pain Scale: Adult sg5 15:30 Pain Scale: Adult sg5 16:00 Pain Scale: Adult sg5 16:30 Pain Scale: Adult sg5 17:00 Pain Scale: Adult sg5 17:30 Pain Scale: Adult sg5 18:00 Pain Scale: Adult sg5 18:24 Pain Scale: Adult sg5 MDM: 08:00 Patient medically screened. [facility] 10:05 Differential diagnosis: contusion, tendonitis, viral Infection, bacterial infection, rob URI, bronchitis, pneumonia UTI, gastroenteritis. Antibiotic administration: Levaquin given, rocephin and vanco, Differential Diagnosis: Obstructed Airway Bronchitis Influenza Pharyngitis Pneumonia. Immunization status: Pneumococcal vaccine: within last 5 years. Influenza vaccine: within last 5 years. Data reviewed: vital signs, nurses notes, EMS record, lab test result(s), EKG, radiologic studies, CT scan, plain films. Consideration of Admission/Observation Patient was admitted/placed on observation. Escalation of care including admission/observation considered. I considered the following discharge prescriptions or medication management in the emergency department Medications were administered in the Emergency Department. See MAR. Test considered but Not performed: MRI: no mri of foot and ankle. Historians other than the Patient: EMS: ems well informed. Spouse/Significant Other: well in formed. Care significantly affected by the following chronic conditions: Diabetes, Hypertension, Obesity, Chronic Kidney Disease, heart transplant, [facility] 10 yrs ago. Counseling: I had a detailed discussion with the patient and/or guardian regarding: the historical points, exam findings, and any diagnostic results supporting the discharge/admit diagnosis, lab results, radiology results, the need to transfer to another facility, for higher level of care, [facility] does not immediately have the required specialist. 03/01 07:59 Order name: Basic Metabolic Panel; Complete Time: 11:[address] [facility] 03/01 07:59 Order name: CBC with Diff; Complete Time: 11:[address] [facility] 03/01 07:59 Order name: LFT's; Complete Time: 11:[address] [facility] 03/01 07:59 Order name: Magnesium; Complete Time: 11:[address] [facility] 03/01 07:59 Order name: NT PRO-BNP; Complete Time: 11:[address] [facility] 03/01 07:59 Order name: PT-INR; Complete Time: 09:[address] [facility] 03/01 07:59 Order name: Troponin HS; Complete Time: 11:[address] [facility] 03/01 07:59 Order name: Lactate w/ 2H reflex if indic.; Complete Time: 09:[address] [facility] 03/01 07:59 Order name: Urinalysis w/ reflexes; Complete Time: 15:[address] [facility] 03/01 07:59 Order name: Blood Culture Adult (2) [facility] 03/01 07:59 Order name: Lipase; Complete Time: 11:[address] [facility] 03/01 09:50 Order name: Flu; Complete Time: 11:[address] [facility] 03/01 09:50 Order name: SARS RAPID; Complete Time: 11:[address] [facility] 03/01 10:48 Order name: CBC Smear Scan; Complete Time: 11:15 [facility] 03/01 07:59 Order name: XRAY Chest (1 view); Complete Time: 09:[address] [facility] 03/01 07:59 Order name: CT Traumagram (Head C Spine CAP wo con); Complete Time: 09:[address] [facility] 03/01 08:30 Order name: Foot Left 3 View XRAY; Complete Time: 11:[address] [facility] 03/01 12:25 Order name: US Extremity Venous W Compression Bharathi; Complete Time: 15:[address] [facility] 03/01 07:59 Order name: EKG; Complete Time: 08:[address] [facility] 03/01 07:59 Order name: Cardiac monitoring; Complete Time: 08:[address] [facility] 03/01 07:59 Order name: EKG - Nurse/Tech; Complete Time: 08:[address] [facility] 03/01 07:59 Order name: IV Saline Lock; Complete Time: 08:[address] [facility] 03/01 07:59 Order name: Labs collected and sent 03/01 07:59 Order name: O2 Per Protocol; Complete Time: 08:[address] [facility] 03/01 07:59 Order name: O2 Sat Monitoring; Complete Time: 08:[address] [facility] 03/01 08:02 Order name: IV Saline Lock - Large Bore; Complete Time: 08:[address] [facility] 03/01 11:18 Order name: Bladder Scanner: GET PVR , IF GREATER THAN 100 , PLACE JUDGE [facility] 03/01 15:59 Order name: Judge; Complete Time: 15:59 sg5 EC:11 Rate is 125 beats/min. Rhythm is regular. QRS Elizabeth is Normal. PA interval is normal. rob QRS interval is normal. QT interval is normal. No Q waves. T waves are Normal. No ST changes noted. Clinical impression: Sinus tachycardia. Interpreted by me. Reviewed by me. Administered Medications: 08:27 Drug: NS 0.9% IV (30 ml/kg) 30 ml/kg {Note: First Bolus 0828.} Route: IV; Rate: bolus; sg5 Site: right wrist; 08:28 Drug: Famotidine IVP 20 mg Route: IVP; Site: right wrist; sg5 08:40 Drug: Acetaminophen PO 1000 mg Route: PO; sg5 08:59 Drug: NS 0.9% IV (30 ml/kg) 30 ml/kg {Note: second liter to left forearm.} Route: IV; sg5 Rate: bolus; Site: left forearm; 08:59 Drug: Rocephin IV 1 grams Route: IV; Rate: per protocol; Site: left forearm; sg5 09:30 Follow up: IV Status: Completed infusion; IV Intake: 100ml sg5 09:22 Drug: NS 0.9% IV (30 ml/kg) 30 ml/kg {Note: 500ml right wrist 0923.} Route: IV; Rate: sg5 bolus; Site: right wrist; 09:22 Follow up: IV Intake: 1500ml sg5 09:22 Drug: vancoMYCIN IVPB 1 grams Route: IVPB; Infused Over: 2 hrs; Site: left forearm; sg5 11:08 Follow up: IV Status: Completed infusion sg5 09:30 Drug: levofloxacin IVPB 500 mg Volume: 100 ml; Route: IVPB; Infused Over: 60 mins; sg5 Site: left forearm; 11:08 Follow up: IV Status: Completed infusion sg5 11:47 Drug: NS 0.9% with KCl IV 20 mEq/L 1000 ml Route: IV; Rate: 125 ml/min; Site: right sg5 wrist; 11:47 Drug: Potassium PO Effervescent Tablet 25 mEq Route: PO; sg5 13:47 Drug: diphenhydrAMINE IVP 12.5 mg Route: IVP; Site: left forearm; sg5 13:48 Drug: fentaNYL (PF) IVP 25 mcg Route: IVP; Site: left forearm; sg5 13:48 Drug: Ondansetron IVP 4 mg Route: IVP; Site: left forearm; sg5 14:41 Drug: Doxycycline PO 100 mg Route: PO; sg5 14:41 Drug: cefTAZidime IVPB 2 grams Route: IVPB; Infused Over: 30 mins; Site: left forearm; sg5 15:14 Follow up: IV Status: Completed infusion; IV Intake: 100ml sg5 15:14 Drug: vibramycin - Doxycycline IVPB 100 mg Route: IVPB; Rate: 100 ml/hr; Site: left sg5 forearm; 15:55 Drug: NS 0.9% IV 1000 ml Route: IV; Rate: 1 bolus; Site: left forearm; sg5 16:59 Follow up: IV Status: Completed infusion; IV Intake: 1000ml sg5 15:57 Drug: Tetanus Toxoid,Adsorbed IM 0.5 ml {Paper Sample Clerk: [employer]. Exp: 01/31/2024. sg5 Lot #: [id number]. } Route: IM; Site: right deltoid; 15:58 Drug: Acetaminophen PO 650 mg Route: PO; sg5 Disposition Summary: 03/01/23 10:11 Transfer Ordered Reason: Higher level of care rob Condition: Fair rob Problem: new rob Symptoms: have improved rob Transfer Location: [facility](03/01/23 17:32) rob Accepting Physician: to [facility](03/01/23 19:03) sg5 Diagnosis - Toxic effect of contact with other venomous marine animals, undetermined, initial rob encounter - Cellulitis and acute lymphangitis of other parts of limb - left foot rob - Fever, unspecified rob - Sepsis, unspecified organism rob - Heart transplant status rob - Hypokalemia rob - Acute kidney failure, unspecified - ACUTE ON CHRONIC rob - Hypotension, unspecified rob Forms: - Medication Reconciliation Form rob - SBAR form rob Signatures: Dispatcher [employer] EDSte[employer] Bob MD MD cha Prokisch, Amanda RN RN ap3 Rebecca Soliman RN RN sg5 Corrections: (The following items were deleted from the chart) 11:16 10:11 to [facility] rob rob 16:17 10:11 [facility] rob rob 16:17 11:16 to [facility] rob rob 16:18 16:17 to yahaira rob rob 17:32 16:17 [facility] rob rob 17:32 16:18 to yahaira [facility] rob rob 18:19 17:32 to [facility] rob rob 19:03 18:19 to [facility] rob sg5
--- NOTE | 2023-03-01 10:14 | EKG ---
Test Date: 2023-03-01 Test Time: 08:05:20 Dinkey Brakeman: MARTY MEASUREMENT RESULTS: Intervals: Rate: 125 [place]: QRSD: 70 QT: 414 QTc: 597 [place]: P: [place]: QRS: 53 T: 90 INTERPRETIVE STATEMENTS: Accelerated Junctional rhythm with frequent premature ventricular complexes Possible Inferior infarct, age undetermined Anterior infarct, age undetermined Abnormal ECG Compared to ECG 11/04/2022 08:21:23 Accelerated junctional rhythm now present Ventricular premature complex(es) now present Myocardial infarct finding now present Sinus rhythm no longer present Electronically Signed On 03-01-23 10:13:28 CDT by Goyo Lugo
[2023-03-01 10:35] LABS: SARS-CoV-2 Antigen Rapid Res Negative (Negative)
[2023-03-01 10:48] LABS: Blood Morphology Comment NOT SEEN (NOT SEEN); Platelet Estimate ADEQ; White Blood Cell Scan OK (OK)
[2023-03-01] MEDS ORDERED: POTASSIUM 25 MEQ EFFERV TAB ONE (11:48)
[2023-03-01] MEDS ORDERED: NS KCL 20MEQ 1,000 ML IV ONE (11:55)
--- NOTE | 2023-03-01 13:26 | RAD REPORT ---
EXAM DESCRIPTION: US - Extrem Venous W Compress Bharathi - 03/01/2023 1:06 pm CLINICAL HISTORY: PAIN Bilateral leg edema and swelling. COMPARISON: Extremity Venous Uni Ltd dated 03/11/2022 TECHNIQUE: Real-time sonographic interrogation of the left and right lower extremity deep venous sys tems was performed. FINDINGS: Normal compressibility, flow augmentation, phasic flow and spontaneous flow is identified in both the left and right lower extremity deep venous systems. IMPRESSION: No sonographic evidence of left or right lower extremity deep venous thrombosis.
[2023-03-01] MEDS ORDERED: DIPHENHYDRAMINE 50 MG/ML VIAL ONE (13:39)
[2023-03-01] MEDS ORDERED: ONDANSETRON 4 MG/2 ML VIAL ONE (13:40)
[2023-03-01] MEDS ORDERED: TETANUS & DIPHTHERIA TOX,ADULT 0.5 ML VIAL ONE (13:40)
[2023-03-01] MEDS ORDERED: FENTANYL CITR 100 MCG/2 ML ONE (13:41)
[2023-03-01 14:04] LABS: Specific Gravity 1.011 (1.005-1.030); Urine Bacteria None Seen /HPF (<20); Urine Bilirubin NEGATIVE (Negative); Urine Blood Negative (Negative); Urine Clarity Clear (Clear); Urine Color Light-Yellow (Yellow); Urine Glucose NEGATIVE (Negative); Urine Protein 1+ (Negative); Urine RBC <5 /HPF (None Seen); Urine Urobilinogen Normal (Normal)
[2023-03-01] MEDS ORDERED: DOXYCYCLINE HYCLATE 100MG INJ ONE (14:25)
[2023-03-01] MEDS ORDERED: DOXYCYCLINE 100 MG CAP PO ONE (14:25)
[2023-03-01] MEDS ORDERED: CEFTAZIDIME 1 GM VIAL ONE (14:25)
[2023-03-01] MEDS ORDERED: NA CHLORIDE 0.9% 200 ML ONE (14:26)
[2023-03-01] MEDS ORDERED: ACETAMINOPHEN 325 MG TABLET ONE (15:44)
[2023-03-01] MEDS ORDERED: LIDOCAINE VISCOUS 2% SOLN 15 ML UDC ONE (15:45)
[2023-03-01] MEDS ORDERED: NA CHLORIDE 0.9% 1,000 ML ONE (15:45)
[2023-03-01 19:46] VITALS: TEMP 98.9
[2023-03-01 19:54] VITALS: O2SAT 92
[2023-03-01 19:56] VITALS: BP 89/62
== END 2023-03-01 19:03 | disposition short-term general hospital (02) ==
LOC: ER 07:52
DX: L03.116 Cellulitis of left lower limb (principal); A41.9 Sepsis, unspecified organism; L03.126 Acute lymphangitis of left lower limb; T63.691A Toxic effect of contact with other venomous marine animals, accidental (unintentional), initial encounter; E87.6 Hypokalemia; I95.9 Hypotension, unspecified; Z94.1 Heart transplant status; E11.22 Type 2 diabetes mellitus with diabetic chronic kidney disease; I12.0 Hypertensive chronic kidney disease with stage 5 chronic kidney disease or end stage renal disease; N18.5 Chronic kidney disease, stage 5; Z99.2 Dependence on renal dialysis; Z88.8 Allergy status to other drugs, medicaments and biological substances; Z20.822 Contact with and (suspected) exposure to COVID-19; Z23 Encounter for immunization
CPT/HCPCS: 93005; 87040 ×2; 85025; 81001; 80048; 36415; 83735; 87205 ×4; 85610; 80076; 83605; 84484; 83690; 83880; 87804 ×2; 70450; 71250; 72125; 71045; 73630; 90471; 93970; 90714; 51702; 99285; 87811; J1200; J3010; J2405; J0713; J7040 ×2; J7030 ×2; J0696; J3480

== ENCOUNTER 2023-05-24 11:28 | Emergency (ER) | payer OTHER ==
--- OUTSIDE RECORDS SUMMARY | 2023-05-24 11:31 | XMS REPORT | Clinical Summary ---
:1945 Author Organization [facility] MD [facility] Address [address] [place] [address] Care Team Providers Name Role Phone Kevin [...] by 0 Active 100 mg tablet mouth. amLODIPine (NORVASC) 5 Take 5 mg by 0 Active mg tablet mouth. labetalol (TRANDATE) TAKE 1 TABLET BY 3 06/25/2016 Active 300 mg tablet MOUTH EVERY 12 HOURS labetalol (TRANDATE) TAKE 2 TABLETS 3 04/30/2016 Active 200 mg tablet BY MOUTH TWICE A DAY esomeprazole (NexIUM) Take 40 mg by 0 Active 40 MG capsule mouth. gabapentin (NEURONTIN) Take 300 mg by 0 Active 300 mg capsule mouth. torsemide (DEMADEX) 20 TAKE 2 TABLETS 3 06/18/2016 Active mg tablet BY MOUTH ONCE DAILY potassium chloride TAKE ONE [...] MOUTH EVERY DAY mupirocin (BACTROBAN) Apply topically 22 g 0 02/09/2022 Active 2% to affected ointmentIndications: area(s) twice Squamous cell daily. carcinoma of nose OneTouch Verio test daily. 0 12/22/2021 Active strips strp cyclobenzaprine daily as needed. 0 03/09/2022 Active (FLEXERIL) 10 mg tablet amLODIPine (NORVASC) 5 Take 5 mg by 0 Active mg tablet mouth daily. docusate sodium daily. 0 04/18/2018 Act tricia (Colace) 100 mg capsule omega [id number] Take 2,000 mg by 0 Active oil 1,000 mg (120 mouth daily. mg-180 mg) cap predniSONE (DELTASONE) daily. 0 01/15/2022 Active 2.5 mg tablet sertraline (ZOLOFT) 50 daily. 0 02/17/2022 Active mg tablet sertraline (ZOLOFT) 50 daily. 0 Active mg tablet ALPRAZolam (XANAX) 0.5 4 (four) times a 0 Active mg tablet day. finasteride (PROSCAR) daily. 0 02/24/2022 Active 5 mg tablet calcium [id number] daily. 0 Active no.293 (Alive Calcium-Vitamin D3) 260 mg calcium- 25 mcg-50 mg chew cranberry 400 mg cap daily. 0 Active docusate sodium 100 daily. 0 04/18/2018 Active mg/5 mL enem ferrous sulfate 325 mg Take 325 mg by 0 02/05/2022 0 02/05/2023 (65 mg elemental iron mouth daily. 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 (Home) [place] [id number] Octavio Bueno Personal/Family Self 1945 [address]Home[address] [place] [phone] Octavio Bueno Personal/Family Self 1945 [address] [place] (Home) [place] [address] Care Teams Taxation Accountant Relationship Specialty Start Date End Date Kevin Amaya MD PCP - General 11/27/[address] [place] [id number] Alejo Saxena MD PCP - External Referring 02/12/[address] [place] [id number] Alejo Saxena MD PCP - External Follow Up A 02/12/[address] [place] [id number] Donald Epstein MD PCP - External Follow Up B 03/01/14 [address] [facility] [address] [place] [address] Kevin Amaya MD Physician 12/04/[address] [place] [id number]
[2023-05-24 12:46] LABS: Absolute Lymphocytes (CBC) 0.9 K/uL (0.7-4.9); Hematocrit 30.2 % (39.6-49.0); Lymphocytes % 16.9 % (15.3-44.8); MCV 88.9 fL (80-100); Platelets 131 thou/uL (152-406)
[2023-05-24 12:49] LABS: Protime INR 1.09
[2023-05-24 12:53] LABS: Albumin 2.9 g/dL (3.4-5.0); Bilirubin Total 0.5 mg/dL (0.2-1.0); Protein, Total 6.5 g/dL (6.4-8.2)
--- NOTE | 2023-05-24 12:53 | RAD REPORT ---
EXAM DESCRIPTION: US - Extremity Venous Uni Ltd - 05/24/2023 12:41 pm CLINICAL HISTORY: Pain;Swelling Leg swelling and edema. COMPARISON: Extrem Venous W Compress Bharathi dated 03/01/2023 FINDINGS: Left lower extremity venous system was interrogated with Doppler technique. Normal flow, c ompressibility and augmentation was noted. There is no DVT present. IMPRESSION: No evidence of left lower extremity deep venous thrombosis.
--- NOTE | 2023-05-24 13:16 | RAD REPORT ---
EXAM DESCRIPTION: RAD - Chest Single View - 05/24/2023 1:04 pm CLINICAL HISTORY: chills, DVT Chest pain. COMPARISON: Chest Single View dated 03/01/2023; Chest Single View dated 11/04/2022; Chest Single View da karla 09/20/2022; Chest Single View dated 09/05/2021 FINDINGS: Portable technique limits examination quality. Mild interstitial pulmonary edema seen. Chronic left pleural thickening. The heart is moderately enla rged. Sternotomy wires. IMPRESSION: Mild CHF.
--- NOTE | 2023-05-24 13:50 | ER ---
Nurse's Notes [facility] Name: Octavio Bueno Age: 77 yrs Sex: Male : 1945 Arrival Date: 05/24/2023 Time: 11:28 Bed 15 Private MD: Diagnosis: Edema, unspecified;Pain in left leg Presentation: 05/24 11:56 Chief complaint: Spouse and/or significant other states: left leg swelling X 2.5 iw months, he had a bacterial infection in his body in February, he was septic at that time, last night the leg was very painful and looked bad , swelling is up to his thigh . He was on IV abx and finished ot Wednesday. Coronavirus screen: At this time, the client does not indicate any symptoms associated with coronavirus-19. Ebola Screen: Patient negative for fever greater than or equal to 101.5 degrees Fahrenheit, and additional compatible Ebola Virus Disease symptoms Patient denies exposure to infectious person. Patient denies travel to an Ebola-affected area in the 21 days before illness onset. No symptoms or risks identified at this time. Initial Sepsis Screen: Does the patient meet any 2 criteria? No. Patient's initial sepsis screen is negative. Does the patient have a suspected source of infection? No. Patient's initial sepsis screen is negative. Risk Assessment: Do you want to hurt yourself or someone else? Patient reports no desire to harm self or others. Onset of symptoms was May 17, 2023. 11:56 Method Of Arrival: Ambulatory iw 11:56 Acuity: YAHIR 3 iw Historical: - Allergies: 11:58 Rapamune; iw - PMHx: 11:58 Hypertension; Hyperlipidemia; Myocardial infarction; Migraines r/t head injury; iw Diabetes - IDDM; Chronic kidney disease stage V; BILE DUCT CANCER; Gout; - PSHx: 11:58 Cholecystectomy; Heart transplant; hernia; iw - Immunization history:: Adult Immunizations. - Family history:: not pertinent. - Social history:: Smoking status: Patient/guardian denies using tobacco, but has a distant history of tobacco abuse. - Hospitalizations: : Patient was recently seen at. Screenin:20 [facility] ED Fall Risk Assessment (Adult) History of falling in the last 3 months, aa5 including since admission No falls in past 3 months (0 pts) Confusion or Disorientation No (0 pts) Intoxicated or Sedated No (0 pts) Impaired Gait Yes (1 pt) Mobility Assist Device Used Yes (1 pt) Altered Elimination No (0 pt) Score/Fall Risk Level 0 - 2 = Low Risk Oriented to surroundings, Maintained a safe environment, Educated pt \\T\\ family on fall prevention, incl call for assistance when getting out of bed. Abuse screen: Denies threats or abuse. Nutritional screening: No deficits noted. Tuberculosis screening: No symptoms or risk factors identified. Assessment: 12:20 General: Appears comfortable, Behavior is calm, cooperative. Pain: Complains of pain in aa5 left leg Pain currently is 5 out of 10 on a pain scale. Quality of pain is described as Pt states "It just hurts" Pain began 1 day ago. Is continuous. Neuro: Level of Consciousness is awake, alert, obeys commands, Oriented to person, place, time, situation. Cardiovascular: Heart tones S1 S2 present Rhythm is regular. Respiratory: Airway is patent Respiratory effort is even, unlabored, Respiratory pattern is regular, symmetrical. GI: Abdomen is round non-distended, Bowel sounds present X 4 quads. Abd is soft and non tender X 4 quads. : No signs and/or symptoms were reported regarding the genitourinary system. EENT: No signs and/or symptoms were reported regarding the EENT system. Derm: Skin is pink, warm \\T\\ dry. Redness noted to left upper and lower leg. Musculoskeletal: Swelling present in upper and lower left leg, right lower leg Ambulatory with walker. 12:23 Reassessment: Pt to US. aa5 13:05 Reassessment: Pt back from US. aa5 13:05 Reassessment: Patient is alert, oriented x 3, equal unlabored respirations, skin aa5 warm/dry/pink. Pt given pillow and blanket for comfort. . 13:35 Reassessment: Dr. Melvin at bedside. . aa5 14:35 Reassessment: Patient is alert, oriented x 3, equal unlabored respirations, skin aa5 warm/dry/pink. Vital Signs: 11:56 BP 139 / 74; Pulse 83; Resp 16; Temp 98.9; Pulse Ox 93% on R/A; Weight 81.65 kg; Height iw 5 ft. 9 in. ; 13:10 BP 148 / 74; Pulse 75; Resp 16 S; Pulse Ox 95% on R/A; aa5 14:14 BP 156 / 70; Pulse 77; Resp 17; Pulse Ox 95% on R/A; aa5 14:35 BP 140 / 79; Pulse 75; Resp 16 S; Temp 97.8(TE); Pulse Ox 96% on R/A; aa5 11:56 Body Mass Index 26.58 (81.65 kg, 175.26 cm) ED Course: 11:31 Patient arrived in ED. mg5 11:58 Triage completed. iw 11:59 Arm band placed on. iw 12:01 Raina Chase, RN is Primary Nurse. aa5 12:03 Mathew Melvin MD is Attending Physician. rn 12:20 Patient has correct armband on for positive identification. Placed in gown. Bed in low aa5 position. Call light in reach. Side rails up X2. Adult w/ patient. 12:23 Initial lab(s) drawn, by me, sent to lab. Inserted saline lock: 20 gauge in right aa5 antecubital area, using aseptic technique. Blood collected. 12:23 First set of blood cultures drawn by me. aa5 12:43 Extremity Venous Uni Ltd US In Process Unspecified. EDMS 13:06 Chest Single View XRAY In Process Unspecified. EDMS 13:13 Second set of blood cultures drawn by me. aa5 13:13 EKG done, by ED staff, reviewed by Mathew Melvin MD. aa5 14:35 IV discontinued, intact, bleeding controlled, No redness/swelling at site. Pressure aa5 dressing applied. 14:35 No provider procedures requiring assistance completed. aa5 Administered Medications: 14:19 Drug: Furosemide IVP 40 mg Route: IVP; Site: right antecubital; rs5 14:35 Follow up: Response: No adverse reaction aa5 Medication: 14:35 VIS not applicable for this client. aa5 Outcome: 13:50 Discharge ordered by . rn 14:35 Discharged to home ambulatory, with walker, accompanied by aa5 14:35 Condition: stable 14:35 Discharge instructions given to patient, family, Instructed on discharge instructions, follow up and referral plans. Demonstrated understanding of instructions, follow-up care. 14:38 Patient left the ED. aa5 Signatures: Dispatcher [employer] Roshni Alvarado, Mathew Gilbert RN, MD MD rn Calderon, Audri, RN RN aa5 Santos Swenson RN RN rs5 Monique Valverde mg5 Corrections: (The following items were deleted from the chart) 14:25 14:19 BP 118 / 55; Pulse 88bpm; Resp 18bpm; Pulse Ox 97% 2 lpm Nasal Cannula; rs5 rs5 16:17 12:20 Musculoskeletal: Swelling present in upper and lower left leg, right lower leg aa5aa5 16:17 12:20 [facility] ED Fall Risk Assessment (Adult) History of falling in the last 3 months, aa5 including since admission No falls in past 3 months (0 pts) Confusion or Disorientation No (0 pts) Intoxicated or Sedated No (0 pts) Impaired Gait No (0 pts) Mobility Assist Device Used No (0 pt) Altered Elimination No (0 pt) Score/Fall Risk Level 0 - 2 = Low Risk Oriented to surroundings, Maintained a safe environment, Educated pt \\T\\ family on fall prevention, incl call for assistance when getting out of bed, aa5
--- NOTE | 2023-05-24 13:50 | EDPHYS ---
Physician Documentation [facility] Name: Octavio Bueno Age: 77 yrs Sex: Male : 1945 Arrival Date: 05/24/2023 Time: : Bed 15 Private MD: ED Physician Mathew Melvin HPI: 05/24 13:45 This 77 yrs old Male presents to ER via Ambulatory with complaints of Leg Swelling, Leg rn Pain - left. 13:45 The patient presents with pain, swelling. The complaints affect the both legs, left rn worse than right. Onset: The symptoms/episode began/occurred 2 month(s) ago. Modifying factors: The symptoms are alleviated by nothing. the symptoms are aggravated by nothing. Severity of symptoms: At their worst the symptoms were moderate, in the emergency department the symptoms have improved. The patient has experienced similar episodes in the past. Family member reports increased swelling to legs, left more than right, has had 2 prolonged medical admission with IV abx for sepsis and bacteremia, was finally cleared and no longer on abx. No fever. NO trauma. Had more pain last night so brought him in. Has had hx of dvt, not on blood thinner, but has IVC filter. No abd pain. Also his doctors recently cut his diuretic in half. . Historical: - Allergies: 11:58 Rapamune; iw - PMHx: 11:58 Hypertension; Hyperlipidemia; Myocardial infarction; Migraines r/t head injury; iw Diabetes - IDDM; Chronic kidney disease stage V; BILE DUCT CANCER; Gout; - PSHx: 11:58 Cholecystectomy; Heart transplant; hernia; iw - Immunization history:: Adult Immunizations. - Family history:: not pertinent. - Social history:: Smoking status: Patient/guardian denies using tobacco, but has a distant history of tobacco abuse. - Hospitalizations: : Patient was recently seen at. ROS: 13:45 Constitutional: Negative for fever, chills, and weight loss, Cardiovascular: Negative rn for chest pain, palpitations Respiratory: Negative for shortness of breath, cough, wheezing, and pleuritic chest pain, Abdomen/GI: Negative for abdominal pain, nausea, vomiting, diarrhea, and constipation, MS/Extremity: + leg swelling and pain Neuro: Negative for headache, numbness, tingling, and seizure. Exam: 13:32 ECG was reviewed by the Attending Physician. rn 13:45 Constitutional: This is a well developed, well nourished patient who is awake, alert, rn and in no acute distress. Cardiovascular: Regular rate and rhythm. No pulse deficits. Respiratory: No increased work of breathing, no retractions or nasal flaring. Abdomen/GI: Soft, non-tender MS/ Extremity: Pulses equal, no cyanosis. + pitting edema bilateral lower extremities, with mild erythema LLE, no streaking, no fluctuance, no open wounds. Neuro: Awake and alert, GCS 15 Vital Signs: 11:56 BP 139 / 74; Pulse 83; Resp 16; Temp 98.9; Pulse Ox 93% on R/A; Weight 81.65 kg; Height iw 5 ft. 9 in. ; 13:10 BP 148 / 74; Pulse 75; Resp 16 S; Pulse Ox 95% on R/A; aa5 14:14 BP 156 / 70; Pulse 77; Resp 17; Pulse Ox 95% on R/A; aa5 14:35 BP 140 / 79; Pulse 75; Resp 16 S; Temp 97.8(TE); Pulse Ox 96% on R/A; aa5 11:56 Body Mass Index 26.58 (81.65 kg, 175.26 cm) iw MDM: 12:03 Patient medically screened. rn 13:45 Differential diagnosis: cellulitis, lymphedema, CHF, edema 2/2 decrease in medication. rn Data reviewed: vital signs, nurses notes, lab test result(s), radiologic studies, plain films, ultrasound, and as a result, I will discharge patient. Care significantly affected by the following chronic conditions: Congestive Heart Failure, Chronic Kidney Disease. Counseling: I had a detailed discussion with the patient and/or guardian regarding the historical points, exam findings, and any diagnostic results supporting the discharge/admit diagnosis, lab results, radiology results, the need for outpatient follow up, to return to the emergency department if symptoms worsen or persist or if there are any questions or concerns that arise at home. Special discussion: I discussed with the patient/guardian in detail that at this point there is no indication for admission to the hospital. It is understood, however, that if the symptoms persist or worsen the patient needs to return immediately for re-evaluation. Based on the history and exam findings, there is no indication for further emergent testing or inpatient evaluation. I discussed with the patient/guardian the need to see the primary care provider for further evaluation of the symptoms. ED course: No acute findings in workup, creatinine at baseline, u/s neg for DVT, normal WBC, afebrile, may be 2/2 recent decrease in diuretic, has appt with his director [employer] tomorrow to discuss further, no indication for emergent transfer at this time, will dc home with nephrology f/u tomorrow as planned and given return precautions. . 05/24 12:12 Order name: Blood Culture Adult (2) rn 05/24 12:12 Order name: CBC with Diff; Complete Time: 13: rn 05/24 12:12 Order name: CMP; Complete Time: 05/24 12:12 Order name: Lactate w/ 2H reflex if indic.; Complete Time: 05/24 12:12 Order name: Protime (+inr); Complete Time: : 05/24 12:12 Order name: Ptt, Activated; Complete Time: 05/24 12:12 Order name: Chest Single View XRAY; Complete Time: rn 05/24 12:12 Order name: Extremity Venous Uni Ltd US; Complete Time: : rn 05/24 12:12 Order name: EKG; Complete Time: 12: rn 05/24 12:12 Order name: Cardiac monitoring; Complete Time: rn 05/24 12:12 Order name: EKG - Nurse/Tech; Complete Time: 13:17 rn 05/24 12:12 Order name: IV Saline Lock - Large Bore; Complete Time: rn 05/24 12:12 Order name: Labs collected and sent; Complete Time: rn 05/24 12:12 Order name: O2 Per Protocol; Complete Time: rn 05/24 12:12 Order name: O2 Sat Monitoring; Complete Time: rn 05/24 12:12 Order name: Vital Signs; Complete Time: rn EC:32 Rate is 76 beats/min. Rhythm is regular. QRS [place] is Normal. WI interval is normal. QRS rn interval is normal. QT interval is normal. No Q waves. T waves are Normal. No ST changes noted. Clinical impression: NSR w/ Non-specific ST/T Changes. Interpreted by me. Reviewed by me. Administered Medications: 14:19 Drug: Furosemide IVP 40 mg Route: IVP; Site: right antecubital; rs5 14:35 Follow up: Response: No adverse reaction aa5 Disposition Summary: 05/24/23 13:50 Discharge Ordered Location: Home rn Problem: an ongoing problem rn Symptoms: are unchanged rn Condition: Stable rn Diagnosis - Edema, unspecified rn - Pain in left leg rn Followup: rn - With: Private Physician - When: Tomorrow - Reason: Recheck today's complaints, Re-evaluation by your physician Discharge Instructions: - Discharge Summary Sheet rn - Edema rn - Peripheral Edema rn Forms: - Medication Reconciliation Form rn - Thank You Letter rn - Antibiotic rn outpatient surgery - Prescription Opioid Use rn - Patient Portal Instructions rn - Leadership Thank You Letter rn Signatures: Dispatcher [employer] Roshni Alvarado, RN RN Mathew Cotton MD MD rn Calderon, Audri, RN RN aa5 Santos Swenson RN RN rs5 Corrections: (The following items were deleted from the chart) 13:17 12:12 Accucheck ordered. rn aa5
[2023-05-24] MEDS ORDERED: FUROSEMIDE 40 MG/4 ML VIAL ONE (14:25)
[2023-05-24 14:47] VITALS: TEMP 98.9
[2023-05-24 15:19] VITALS: BP 156/70; O2SAT 95
--- NOTE | 2023-05-25 16:31 | EKG ---
Test Date: 2023-05-24 Test Time: 13:10:58 Computer Instructor: CHARI MEASUREMENT RESULTS: Intervals: Rate: 76 DC: 136 QRSD: 80 QT: 392 QTc: 441 [place]: P: 27 DC: 136 QRS: 51 T: 60 INTERPRETIVE STATEMENTS: Normal sinus rhythm Cannot rule out Anterior infarct, age undetermined Abnormal ECG Compared to ECG 03/01/2023 08:05:20 Accelerated junctional rhythm no longer present Ventricular premature complex(es) no longer present Myocardial infarct finding still present Electronically Signed On 05-25-23 16:27:17 CDT by [facility]
== END 2023-05-24 14:38 | disposition home or self-care (01) ==
LOC: ER 11:28
DX: R60.9 Edema, unspecified (principal); M79.605 Pain in left leg; E11.22 Type 2 diabetes mellitus with diabetic chronic kidney disease; I12.0 Hypertensive chronic kidney disease with stage 5 chronic kidney disease or end stage renal disease; N18.5 Chronic kidney disease, stage 5; Z94.1 Heart transplant status; Z88.8 Allergy status to other drugs, medicaments and biological substances
CPT/HCPCS: 93005; 87040 ×2; 85025; 36415; 85610; 83605; 85730; 80053; 71045; 93971; 96374; 99284; J1940

== ENCOUNTER 2023-12-05 13:44 | Observation (INO) | payer OTHER ==
--- OUTSIDE RECORDS SUMMARY | 2023-12-05 13:47 | XMS REPORT | Clinical Summary ---
Author Name Unknown Organization [facility] [place] Address [address] [place] [address] Care Team Providers Care It Generalist Name Role Phone Kevin Amaya MD Primary Care Provider [phone] Alejo Saxena MD Unavailable [phone] Alejo Saxena MD Unavailable [phone] Donald Epstein MD Unavailable Kevin Amaya MD Unavailable [phone] Allergies Active Allergy Reactions Criticality Noted Date Comments Adhesive Tape-Silicones Other (See Comments) Low 09/14/2018 TEARS SKIN. OK WITH PAPER Sirolimus 08/06/2016 Medications Medication Sig Dispensed Refills Start Date End Date Status tacrolimus (PROGRAF) 0.5 mg capsule Take 0.5 mg by mouth. 0 Active mycophenolate (CELLCEPT) 500 mg tablet Take by mouth. 0 Active predniSONE (DELTASONE) 5 mg tablet Take 5 mg by mouth. 0 Active NOVOLIN 70/30 100 unit/mL (70-30) injection 0 08/01/2016 Active aspirin 81 mg EC tablet Take 81 mg by mouth. 0 Active calcium carbonate-vitamin D3 1,250 mg (500 mg as elemental)-200 units tablet Take 1 tablet by mouth. 0 Active multivitamin (THERAGRAN) tab tablet Take 1 tablet by mouth. 0 Active thiamine (VITAMIN B-1) 100 mg tablet Take 100 mg by mouth. 0 Active omega-3 acid ethyl esters (LOVAZA) 1 g capsule Take 1 g by mouth. 0 Active folic acid (FOLVITE) 1 mg tablet TAKE ONE TABLET BY MOUTH DAILY 3 06/18/2016 Active magnesium oxide (MAOX) 400 mg tablet Take 400 mg by mouth. 0 Active allopurinol (ZYLOPRIM) 100 mg tablet Take 100 mg by mouth. 0 Active amLODIPine (NORVASC) 5 mg tablet Take 5 mg by mouth. 0 Active labetalol (TRANDATE) 300 mg tablet TAKE 1 TABLET BY MOUTH EVERY 12 HOURS 3 06/25/2016 Active labetalol (TRANDATE) 200 mg tablet TAKE 2 TABLETS BY MOUTH TWICE A DAY 3 04/30/2016 Active esomeprazole (NexIUM) 40 MG capsule Take 40 mg by mouth. 0 Active gabapentin (NEURONTIN) 300 mg capsule Take 300 mg by mouth. 0 Active torsemide (DEMADEX) 20 mg tablet TAKE 2 TABLETS BY MOUTH ONCE DAILY 3 06/18/2016 Active potassium chloride (K-DUR,KLOR-CON M) 10 mEq tablet TAKE ONE TABLET BY MOUTH TWICE DAILY 3 06/25/2016 Active metOLazone (ZAROXOLYN) 2.5 mg tablet Take 2.5 mg by mouth. 0 Active isosorbide mononitrate (IMDUR) 30 mg 24 hr tablet Take 30 mg by mouth. 0 Active tamsulosin (FLOMAX) 0.4 mg 24 hr capsule TAKE ONE CAPSULE EVERY EVENING 3 05/21/2016 Active ALPRAZolam (XANAX) 0.25 mg tablet TAKE 1 TABLET BY MOUTH 4 TIMES A DAY FOR 30 DAYS 1 05/30/2016 Active SINGULAIR 10 mg tablet TAKE 1 TABLET BY MOUTH EVERY DAY 0 07/28/2016 Active mupirocin (BACTROBAN) 2% ointmentIndications: Squamous cell carcinoma of nose Apply topically to affected area(s) twice daily. 22 g 0 02/09/2022 Active OneTouch Verio test strips strp daily. 0 12/22/2021 Active cyclobenzaprine (FLEXERIL) 10 mg tablet daily as needed. 0 03/09/2022 Active amLODIPine (NORVASC) 5 mg tablet Take 5 mg by mouth daily. 0 Active docusate sodium (Colace) 100 mg capsule daily. 0 04/18/2018 Active omega 7-gcc-wfx-fish oil 1,000 mg (120 mg-180 mg) cap Take 2,000 mg by mouth daily. 0 Active predniSONE (DELTASONE) 2.5 mg tablet daily. 0 01/15/2022 Active sertraline (ZOLOFT) 50 mg tablet daily. 0 02/17/2022 Active sertraline (ZOLOFT) 50 mg tablet daily. 0 Active ALPRAZolam (XANAX) 0.5 mg tablet 4 (four) times a day. 0 Active finasteride (PROSCAR) 5 mg tablet daily. 0 02/24/2022 Active calcium [id number] no.293 (Alive Calcium-Vitamin D3) 260 mg calcium- 25 mcg-50 mg chew daily. 0 Active cranberry 400 mg cap daily. 0 Acti ve docusate sodium 100 mg/5 mL enem daily. 0 04/18/2018 Active ferrous sulfate 325 mg (65 mg elemental iron per tablet) tablet Take 325 mg by mouth daily. 0 02/05/2022 02/05/2023 Social History Tobacco Use Types Packs/Day Years Used Date Smoking Tobacco: Never Assessed Sex and Gender Information Value Date Recorded Sex Assigned at Not on file Gender Identity Not on file Sexual Orientation Not on file Job Start Date Occupation Industry Not on file Not on file Not on file Plan of Treatment Health Maintenance Due Date Last Done Comments COVID-19 Vaccination ( season) 2023 06/23/2021, 12/16/2020, 11/18/2020, Additional history exists Care Teams It Generalist Relationship Specialty Start Date End Date Kevin Amaya MD [address] [place] [address] PCP - General 11/27/15 Alejo Saxena MD [address] [place] [id number] PCP - External Referring 02/12/14 [place] [address] [place] [id number] PCP - External Follow Up A 02/12/14 Donald Epstein MD [address] [place] [address] [address] [place] [address] PCP - External Follow Up B 03/01/14 Kevin Amaya MD [address] [place] [id number] Physician 12/04/15
[2023-12-05] MEDS ORDERED: ASPIRIN 81 MG CHEWABLE TABLET ONE (14:12)
[2023-12-05 14:22] LABS: Protime INR 1.16
[2023-12-05 14:23] LABS: Absolute Lymphocytes (CBC) 0.7 K/uL (0.7-4.9); Basophils % 0.5 % (0-1.3); Hematocrit 29.5 % (39.6-49.0); Lymphocytes % 18.5 % (15.3-44.8); MCV 92.2 fL (80-100)
[2023-12-05 14:36] LABS: Albumin 3.1 g/dL (3.4-5.0); Albumin/Globulin Ratio 0.9 (1.1-1.8); Bilirubin Direct 0.2 mg/dL (0-0.2); Bilirubin Indirect, Calculated 0.3 mg/dL (0.2-0.8); Bilirubin Total 0.5 mg/dL (0.2-1.0); Magnesium 2.4 mg/dL (1.6-2.4); Protein, Total 6.5 g/dL (6.4-8.2); Troponin High Sensitivity 12.9 pg/mL (<58.9)
--- NOTE | 2023-12-05 14:48 | RAD REPORT ---
EXAM DESCRIPTION: Bam Single View12/05/2023 2:36 pm CLINICAL HISTORY: Chest pain COMPARISON: 2022 FINDINGS: The lungs appear clear of acute infiltrate. The heart is mildly enlarged. Mild chronic elevation left hemidiaphragm Postsurgical changes involve the chest. IMPRESSION: No acute abnormalities displayed
[2023-12-05 14:58] LABS: MPV 8.7 fL (7.6-11.3); Platelets 93 thou/uL (152-406)
--- NOTE | 2023-12-05 15:01 | ER ---
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 Coronavirus as6 screen: At this time, the client does not indicate any symptoms associated with coronavirus-19. Ebola Screen: No symptoms or risks identified at this time. Initial Sepsis Screen: Does the patient meet any 2 criteria? No. Patient's initial sepsis screen is negative. Does the patient have a suspected source of infection? No. Patient's initial sepsis screen is negative. Risk Assessment: Do you want to hurt yourself or someone else? Patient reports no desire to harm self or others. Onset of symptoms was December 05, 2023. 14:02 Acuity: YAHIR 2 as6 14:02 Method Of Arrival: Ambulatory as6 Triage Assessment: 14:01 General: Appears in no apparent distress. Behavior is calm, cooperative. Pain: as6 Complains of pain in chest. Cardiovascular: Chest pain is located in substernal area. Historical: - Allergies: 14:01 Rapamune; as6 - PMHx: 14:01 BILE DUCT CANCER; Gout; Hyperlipidemia; Hypertension; Myocardial infarction; Migraines as6 r/t head injury; Chronic kidney disease stage V; Diabetes - IDDM; - PSHx: 14:01 Cholecystectomy; Heart transplant; hernia; as6 - Immunization history:: Adult Immunizations up to date. - Social history:: Smoking status: Patient denies any tobacco usage or history of. Screenin:09 [facility] ED Fall Risk Assessment (Adult) History of falling in the last 3 months, cp4 including since admission No falls in past 3 months (0 pts) Confusion or Disorientation No (0 pts) Intoxicated or Sedated No (0 pts) Impaired Gait No (0 pts) Mobility Assist Device Used No (0 pt) Altered Elimination No (0 pt) Score/Fall Risk Level 0 - 2 = Low Risk Oriented to surroundings, Maintained a safe environment, Educated pt \T\ family on fall prevention, incl call for assistance when getting out of bed, Assessed \T\ reinforced patient's understanding of fall precautions, Hourly rounding (assess needs \T\ fall precautionary measures) done. Abuse screen: Denies threats or abuse. Nutritional screening: No deficits noted. Tuberculosis screening: No symptoms or risk factors identified. Assessment: 14:09 General: Appears in no apparent distress. Behavior is calm, cooperative, appropriate cp4 for age. Pain: Pain does not radiate. Pain began 1 hour ago. 14:09 Cardiovascular: Reports chest pain, Rhythm is sinus rhythm. cp4 18:23 Reassessment: Patient spoke with Dr. Madison and decided to leave AMA. AMA paper signed. cp4 Vital Signs: 14:00 BP 163 / 70; Pulse 66; Resp 13 S; Temp 97.5(TE); Pulse Ox 98% on R/A; Weight 77.11 kg as6 (R); Height 5 ft. 9 in. (R); Pain 8/10; 14:30 BP 149 / 71; Pulse 82; Resp 18; Pulse Ox 98% ; cp4 15:00 BP 146 / 64; Pulse 61; Resp 18; Pulse Ox 99% ; cp4 15:30 BP 136 / 62; Pulse 60; Resp 18; Pulse Ox 97% ; cp4 16:00 BP 147 / 69; Pulse 61; Resp 18; Pulse Ox 97% ; cp4 16:30 BP 144 / 93; Pulse 68; Resp 18; Pulse Ox 98% ; cp4 17:00 BP 159 / 73; Pulse 57; Resp 18; Pulse Ox 98% ; cp4 17:30 BP 157 / 77; Pulse 62; Resp 18; Pulse Ox 99% ; cp4 18:00 BP 157 / 73; Pulse 63; Resp 18; Pulse Ox 99% ; cp4 14:00 Body Mass Index 25.10 (77.11 kg, 175.26 cm) as6 14:00 Pain Scale: Adult as6 ED Course: 13:46 Patient arrived in ED. rg4 13:47 [facility] jh7 13:47 Steven Esquivel MD is Attending Physician. jh7 14:00 Arm band placed on. as6 14:02 Diane Vila is Primary Nurse. cp4 14:03 Triage completed. as6 14:03 EKG completed in triage. Results shown to MD. as6 14:09 Bed in low position. Call light in reach. Side rails up X 1. Client placed on cp4 continuous cardiac and pulse oximetry monitoring. NIBP monitoring applied. 14:09 No provider procedures requiring assistance completed. Inserted saline lock: 20 gauge cp4 in right antecubital area, using aseptic technique. Blood collected. Patient maintains SpO2 saturation greater than 95% on room air. 14:38 XRAY Chest (1 view) In Process Unspecified. EDMS 15:00 Mitchell Madison is Hospitalizing Provider. [facility] Administered Medications: 14:17 Drug: Aspirin PO Chewable Tablet 324 mg PO once; 81 mg tablets x 4 Route: PO; cp4 16:05 Follow up: Response: No adverse reaction cp4 Medication: 14:09 VIS not applicable for this client. cp4 Outcome: 15:00 Decision to Hospitalize by Provider. [facility] 18:27 Patient left the ED. 4 Signatures: Dispatcher [employer] EDMS Verenice Palomino rg4 Santiago Sanchez RN RN as6 Leslie Romero, CLEANER HOUSEKEEPING CLEANER HOUSEKEEPING 7 Diane Vila cp4
--- NOTE | 2023-12-05 15:01 | EDPHYS ---
Physician Documentation [facility] Name: Octavio Bueno Age: 78 yrs Sex: Male : 1945 Arrival Date: 12/05/2023 Time: 13:44 Bed 18 Private MD: MILADY Physician Steven Esquivel HPI: 12/04 14:01 This 78 yrs old Male presents to ER via Ambulatory with complaints of Chest Pain. jh7 14:01 Onset: The symptoms/episode began/occurred 1 hour(s) ago. Associated signs and jh7 symptoms: The patient has no apparent associated signs or symptoms. 78-year-old male with a past medical history of heart transplant in 2006, bile duct cancer, stage V CKD, hypertension, and diabetes presents to the ER complaining of chest pain for 1 hour. The patient describes the pain is nonreproducible and states that there are no aggravating or alleviating factors. Denies being on blood thinners. Currently taking blood pressure medicine and rejection medicine post heart transplant. 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 Historical: - Allergies: 14:01 Rapamune; as6 - PMHx: 14:01 BILE DUCT CANCER; Gout; Hyperlipidemia; Hypertension; Myocardial infarction; Migraines as6 r/t head injury; Chronic kidney disease stage V; Diabetes - IDDM; - PSHx: 14:01 Cholecystectomy; Heart transplant; hernia; as6 - Immunization history:: Adult Immunizations up to date. - Social history:: Smoking status: Patient denies any tobacco usage or history of. ROS: 14:01 Constitutional: Negative for fever, chills, and weight loss, Eyes: Negative for injury, jh7 pain, redness, and discharge, Neck: Negative for injury, pain, and swelling, Respiratory: Negative for shortness of breath, cough, wheezing, and pleuritic chest pain, Abdomen/GI: Negative for abdominal pain, nausea, vomiting, diarrhea, and constipation, Back: Negative for injury and pain, MS/Extremity: Negative for injury and deformity, Skin: Negative for injury, rash, and discoloration, Neuro: Negative for headache, weakness, numbness, tingling, and seizure, 14:01 Cardiovascular: Positive for chest pain, Negative for orthopnea, palpitations, 14:01 All other systems are negative, Exam: 14:01 Head/Face: Normocephalic, atraumatic. Eyes: Pupils equal round and reactive to light, jh7 extra-ocular motions intact. Lids and lashes normal. Conjunctiva and sclera are non-icteric and not injected. Cornea within normal limits. Periorbital areas with no swelling, redness, or edema. Neck: Trachea midline, no thyromegaly or masses palpated, and no cervical lymphadenopathy. Supple, full range of motion without nuchal rigidity, or vertebral point tenderness. No Meningismus. Cardiovascular: Regular rate and rhythm with a normal S1 and S2. No gallops, murmurs, or rubs. Normal PMI, no JVD. No pulse deficits. Respiratory: Lungs have equal breath sounds bilaterally, clear to auscultation and percussion. No rales, rhonchi or wheezes noted. No increased work of breathing, no retractions or nasal flaring. Abdomen/GI: Soft, non-tender, with normal bowel sounds. No distension or tympany. No guarding or rebound. No evidence of tenderness throughout. Back: No spinal tenderness. No costovertebral tenderness. Full range of motion. Skin: Warm, dry with normal turgor. Normal color with no rashes, no lesions, and no evidence of cellulitis. MS/ Extremity: Pulses equal, no cyanosis. Neurovascular intact. Full, normal range of motion. Neuro: Awake and alert, GCS 15, oriented to person, place, time, and situation. Motor strength 5/5 in all extremities. Sensory grossly intact. Normal gait. 14:01 Constitutional: The patient appears alert, awake, in obvious pain, Vital Signs: 14:00 BP 163 / 70; Pulse 66; Resp 13 S; Temp 97.5(TE); Pulse Ox 98% on R/A; Weight 77.11 kg as6 (R); Height 5 ft. 9 in. (R); Pain 8/10; 14:30 BP 149 / 71; Pulse 82; Resp 18; Pulse Ox 98% ; cp4 15:00 BP 146 / 64; Pulse 61; Resp 18; Pulse Ox 99% ; cp4 15:30 BP 136 / 62; Pulse 60; Resp 18; Pulse Ox 97% ; cp4 16:00 BP 147 / 69; Pulse 61; Resp 18; Pulse Ox 97% ; cp4 16:30 BP 144 / 93; Pulse 68; Resp 18; Pulse Ox 98% ; cp4 17:00 BP 159 / 73; Pulse 57; Resp 18; Pulse Ox 98% ; cp4 17:30 BP 157 / 77; Pulse 62; Resp 18; Pulse Ox 99% ; cp4 18:00 BP 157 / 73; Pulse 63; Resp 18; Pulse Ox 99% ; cp4 14:00 Body Mass Index 25.10 (77.11 kg, 175.26 cm) as6 14:00 Pain Scale: Adult as6 MDM: 13:47 Patient medically screened. 7 15:00 Differential diagnosis: AMI, NSTEMI, unstable angina, stable angina, pneumonia, jh7 costochondritis, pulmonary embolism, chest wall pain. Data reviewed: vital signs, nurses notes, lab test result(s), EKG, radiologic studies, plain films. Consideration of Admission/Observation Patient was admitted/placed on observation. Management of patient was discussed with the following: Hospitalist: Dr. Madison. Commercial Credit Head: Dr. Wood. I considered the following discharge prescriptions or medication management in the emergency department Medications were administered in the Emergency Department. See MAR. Independent interpretation of the following test(s) in the Emergency Department EKG: See my EKG interpretation above. Historians other than the Patient: Spouse/Significant Other: . Care significantly affected by the following chronic conditions: Diabetes, Hypertension, Cancer. Scoring Tools HEART Score: History: Age: Risk Factors: Total Score = 7. Counseling: I had a detailed discussion with the patient and/or guardian regarding the historical points, exam findings, and any diagnostic results supporting the discharge/admit diagnosis, the need for further work-up and treatment in the hospital. Response to treatment: the patient's symptoms have markedly improved after treatment. 12/04 13:56 Order name: Basic Metabolic Panel; Complete Time: 14:50 [facility] 12/04 13:56 Order name: CBC with Diff [facility] 12/04 13:56 Order name: LFT's; Complete Time: 14:50 [facility] 12/04 13:56 Order name: Magnesium; Complete Time: 14:50 [facility] 12/04 13:56 Order name: NT PRO-BNP; Complete Time: 14:50 [facility] 12/04 13:56 Order name: PT-INR; Complete Time: 14:32 [facility] 12/04 13:56 Order name: Troponin HS; Complete Time: 14:50 [facility] 12/04 15:49 Order name: Basic Metabolic Panel [facility] 12/04 15:49 Order name: CBC with Automated Diff [facility] 12/04 15:49 Order name: Lipid Profile [facility] 12/04 15:49 Order name: Lipid Profile [facility] 12/04 15:49 Order name: Troponin High Sensitivity [facility] 12/04 15:49 Order name: Troponin High Sensitivity [facility] 12/04 15:49 Order name: Troponin High Sensitivity [facility] 12/04 15:49 Order name: Troponin High Sensitivity [facility] 12/04 13:56 Order name: XRAY Chest (1 view); Complete Time: 14:50 [facility] 12/04 15:49 Order name: Echo with Doppler [facility] 12/04 13:56 Order name: EKG; Complete Time: 13:57 [facility] 12/04 15:49 Order name: CONS Physician Consult [facility] 12/04 13:56 Order name: Cardiac monitoring; Complete Time: 13:59 [facility] 12/04 13:56 Order name: EKG - Nurse/Tech; Complete Time: 13:59 [facility] 12/04 13:56 Order name: IV Saline Lock; Complete Time: 14:09 [facility] 12/04 13:56 Order name: Labs collected and sent; Complete Time: 14:09 [facility] 12/04 13:56 Order name: O2 Per Protocol; Complete Time: 13:59 [facility] 12/04 13:56 Order name: O2 Sat Monitoring; Complete Time: 14:00 [facility] EC:44 Rate is 66 beats/min. Rhythm is regular. QRS [place] is Normal. [place] interval is normal at [facility] 148 msec. QRS interval is normal at 82 msec. QT interval is normal at 406 msec. No Q waves. T waves are Normal. Clinical impression: Normal ECG and Normal Sinus Rhythm. Administered Medications: 14:17 Drug: Aspirin PO Chewable Tablet 324 mg PO once; 81 mg tablets x 4 Route: PO; cp4 16:05 Follow up: Response: No adverse reaction cp4 Disposition Summary: 12/05/23 15:00 Hospitalization Ordered Notes: Hospitalization Status: Observation [facility] Provider: Mitchell Madison [facility] Condition: Stable [facility] Problem: new [facility] Symptoms: have improved [facility] Bed/Room Type: Standard [facility] Location: [facility] [place] ER HOLD(12/05/23 17:45) Room Assignment: ERHOLD-(12/05/23 17:45) Diagnosis - Chest pain, unspecified [facility] Forms: - Medication Reconciliation Form [facility] - SBAR form [facility] - Leadership Thank You Letter [facility] Signatures: Dispatcher [employer] EDMS Ester Mills Ashby, MELINDA RN as6 Leslie Romero, COMMUNICATIONS TOWER CLIMBER COMMUNICATIONS TOWER CLIMBER 7 Diane Vila cp4 Corrections: (The following items were deleted from the chart) 17:45 15:00 Telemetry/MedSurg (observation) [facility] 17:45 15:00 [facility]
--- NOTE | 2023-12-05 15:32 | P.HP ---
Certification for Inpatient Patient admitted to: Observation With expected LOS: <2 Midnights Patient will require the following post-hospital care: None Practitioner: I am a practitioner with admitting privileges, knowledge of patient current condition, hospital course, and medical plan of care. 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 He reports his chest pain as non-reporducible. His last visit to the ED here at [facility] was 11/19 for chest pain as well. His is at the bedside and a good historian. She reports receiving a phone call from Octavio under distress d/t chest pain. She gave his gasx trying to help relieve the pain. His chest pain remained so she brought him into the ED. She has not contacted the heart transplant team, she believed we would have him transferred if it was needed. She plans to call the heart transplant team in the morning to update them. She will also bring his rejection medication for him to take during this admission. Of note, his development spec is Dr. Faulkner at [facility]. Initial vitals: BP 163 / 70; Pulse 66; Resp 13; Temp 97.5; Pulse Ox 98% on R/A. Laboratory evaluation White blood cells 4, H&H /, platelets 93, BUN/creatinine 73/3.17, GFR 19, troponin 12.9, BNP 4619. EKG Rate is 66 beats/min. Rhythm is regular. QRS [place] is Normal. [place] interval is normal at 148 msec. QRS interval is normal at 82 msec. QT interval is normal at 406 msec. No Q waves. T waves are Normal. Clinical impression: Normal ECG and Normal Sinus Rhythm Chest xray reports "The lungs appear clear of acute infiltrate. The heart is mildly enlarged. Mild chronic elevation left hemidiaphragm. Postsurgical changes involve the chest. IMPRESSION: No acute abnormalities displayed." Octavio will be admitted to hospitalist service for further evaluation of CP r/o ACS. Dr. Wood consulted. Allergies No Known Drug Allergies Allergy (Verified 05/01/15 22:32) Unknown NKA Allergy (Uncoded 02/24/18 15:18) Unknown No Known Allergies Allergy (Uncoded 08/01/17 14:49) Unknown Home Medications: ALPRAZolam [Xanax*] 0.5 mg PO BEDTIME 05/01/15 Allopurinol 100 mg PO BID 05/01/15 Aspirin [Aspirin EC 81 MG] 81 mg PO 30 MIN BEFORE HS 05/01/15 Calcium Carb/Vitamin D3/Vit K1 [Calcium + D Soft Chewable Tab] 600 mg PO BID 05/01/15 Docosahexanoic AC/Epa [Fish Oil 1,000 MG*] 1,000 mg PO BID 05/01/15 Esomeprazole Mag Trihydrate [Nexium] 20 mg PO BEDTIME 05/01/15 Esomeprazole Mag Trihydrate [Nexium] 40 mg PO [id number] 05/01/15 Folic Acid 1 mg PO DAILY 05/01/15 Gabapentin Enacarbil [Horizant] 300 mg PO TID 05/01/15 Insulin 70/30 NPH/Reg Human [Novolin 70/30*] 12 unit SQ BID 05/01/15 Magnesium Oxide [Mag 0X*] 400 mg PO BID 05/01/15 Potassium Chloride [Micro-K] 10 meq PO DAILY 05/01/15 Pravastatin [Pravachol*] 80 mg PO 30 MIN BEFORE HS 05/01/15 Tacrolimus [Prograf] 0.5 mg PO BID 05/01/15 Tamsulosin [Flomax*] 0.4 mg PO 30 MIN BEFORE HS 05/01/15 Thiamine HCl 100 mg PO DAILY 05/01/15 Torsemide [Demadex*] 40 mg PO DAILY 05/01/15 prednisoLONE [Millipred] 5 mg PO DAILY 05/01/15 Amlodipine [Norvasc*] 1 tab PO DAILY 12/27/18 Cranberry Conc/C/Bacill Coag [Cranberry Tablet] 4,200 mg PO BEDTIME 12/27/18 Docusate Sodium 1 cap PO BID 12/27/18 Ferrous Sulfate [Ferrous Sulfate*] 1 tab PO DAILY 12/27/18 Finasteride [Proscar*] 1 tab PO DAILY 12/27/18 Isosorbide Mononitrate [Isosorbide Mononitrate ER] 1 tab PO DAILY 12/27/18 Labetalol HCl [Trandate*] 100 mg PO BID 12/27/18 Trospium Chloride [Sanctura] 1 tab PO DAILY 12/27/18 metOLazone [Metolazone] 2.5 mg PO PRN PRN 12/27/18 Benzonatate [Tessalon Perle*] 100 mg PO Q6H PRN #30 cap 12/30/18 Cefuroxime [Ceftin*] 500 mg PO BID #20 tab 12/30/18 Doxycycline Hyclate 100 mg PO BID #10 tablet 12/30/18 Nitrofuran Macro [Macrodantin*] 50 mg PO BID #10 cap 12/30/18 - Past Medical/Surgical History Diabetic: Yes -: Urinary retention -: High cholesteral -: IDDM -: Gout -: GERD -: Neuropathy -: HTN -: Seasonal Allergies -: Heart transplant -: Sqamous carcinoma removal -: Angelika -: Cataracts -: Hernia repair - Social History Alcohol use: Yes CD- Drugs: No Caffeine use: Yes Review of Systems Cardiovascular: Chest Pain Physical Examination - Physical Exam General: Alert, In no apparent distress, Oriented x3 HEENT: Atraumatic, Normocephalic, PERRLA Neck: Supple, 2+ carotid pulse no bruit, JVD not distended Respiratory: Clear to auscultation bilaterally, Normal air movement Cardiovascular: No edema, Normal pulses, Regular rate/rhythm, Normal S1 S2 Capillary refill: <2 Seconds Gastrointestinal: Hypoactive, Soft and benign Musculoskeletal: No swelling, No contractures Integumentary: No breakdown, No significant lesion Neurological: Normal speech, Normal strength at 5/5 x4 extr, Normal tone - Studies Laboratory Data (last 24 hrs) 12/05/23 12/05/23 12/05/23 14:05 14:05 14:05 WBC 4.00 L Hgb 9.9 L Hct 29.5 L Plt Count 93 L PT 12.7 H INR 1.16 Sodium 144 Potassium 4.0 BUN 73 H Creatinine 3.17 H Glucose 106 Magnesium 2.4 Total Bilirubin 0.5 AST 30 ALT 12 L Alkaline Phosphatase 81 Assessment and Plan - Plan Assessment and Plan Chest pain r/o ACS in a patient with a heart transplant (2006) -Chest xray reports "The lungs appear clear of acute infiltrate. The heart is mildly enlarged. Mild chronic elevation left hemidiaphragm. Postsurgical changes -involve the chest. IMPRESSION: No acute abnormalities displayed." -Troponin 12.9, serial pending -EKG: No obvious ST segment changes -BNP 4619- Lasix x1 -Asa 325 given in the ED -Asa, statin daily -ECHO ordered -Cardiology consulted -Continuous telemetry -continue home rejection medications, will bring from home -his development spec is Dr. Faulkner at [facility]. Thrombocytopenia -Platlets 93 -Monitor in AM labs -Hold blood thinners for now Gout HLD/HTN -Restart home medications when available and appropriate -Monitor BP CKD stage V -BUN/creatinine 73/3.17, GFR 19 -Hold IVF for now Diabetes- IDDM -accucheck with SSI Bile duct cancer -supportive care DVT ppx SCD d/t thrombocytopenia Full code LOS 48 hours Discharge Plan: Home Plan to discharge in: 24 Hours - Advance Directives Does patient have a Living Will: No Does patient have a Durable POA for Healthcare: No Time Spent Managing Pts Care (In Minutes): 50
[2023-12-05] MEDS ORDERED: NITROGLYCERIN 0.4 MG/TAB SL PRN (15:43)
[2023-12-05] MEDS ORDERED: MORPHINE 4 MG/ML SYR IV PRN (15:43)
[2023-12-05] MEDS ORDERED: FUROSEMIDE 40 MG/4 ML VIAL IV ONE (16:02)
[2023-12-05 17:35] VITALS: BMI 24.9
[2023-12-05] MEDS ORDERED: INSULIN REGULAR (HUMAN) 100 UNIT/ML SQ SCH (18:00)
[2023-12-05 18:27] LABS: Blood Morphology Comment NOT SEEN (NOT SEEN); Platelet Estimate DECR; White Blood Cell Scan OK (OK)
[2023-12-05 18:39] VITALS: TEMP 97.5; O2SAT 99
[2023-12-05 19:07] VITALS: BP 157/73
[2023-12-05] MEDS ORDERED: TAMSULOSIN 0.4 MG SR CAP PO SCH (20:30)
[2023-12-05] MEDS ORDERED: ATORVASTATIN 10 MG TAB PO SCH (20:30)
[2023-12-05] MEDS ORDERED: ALPRAZOLAM 0.25 MG TABLET PO SCH (21:00)
[2023-12-05] MEDS ORDERED: MAGNESIUM OXIDE 400 MG TAB PO SCH (21:00)
[2023-12-05] MEDS ORDERED: GABAPENTIN 400 MG CAP PO SCH (21:00)
[2023-12-06] MEDS ORDERED: PANTOPRAZOLE 40MG TABLET PO SCH (07:30)
[2023-12-06] MEDS ORDERED: ASPIRIN EC 81 MG TAB PO SCH (09:00)
[2023-12-06] MEDS ORDERED: SERTRALINE HCL 50 MG TAB PO SCH (09:00)
[2023-12-06] MEDS ORDERED: MONTELUKAST 10 MG TAB PO SCH (09:00)
[2023-12-06] MEDS ORDERED: LOSARTAN POTASSIUM 50 MG TABLET PO SCH (09:00)
[2023-12-06] MEDS ORDERED: HOME MED 1 EA UNK (Tacrolimus [Prograf] 0.5 MG Capsule) PO SCH (09:00)
[2023-12-06] MEDS ORDERED: HOME MED 1 EA UNK (Galantamine Hbr [Galantamine Er] 8 MG Cap24h.Pel) PO SCH (09:00)
[2023-12-06] MEDS ORDERED: FINASTERIDE 5 MG TAB PO SCH (09:00)
[2023-12-06] MEDS ORDERED: THIAMINE HCL 100 MG TABLET PO SCH (09:00)
[2023-12-06] MEDS ORDERED: PREDNISOLONE 5 MG PO SCH (09:00)
[2023-12-06] MEDS ORDERED: FOLIC ACID 1 MG TABLET PO SCH (09:00)
[2023-12-06] MEDS ORDERED: FERROUS SULFATE 325 MG TAB PO SCH (09:00)
--- NOTE | 2023-12-06 15:33 | P.DS ---
Admission Date: 12/05/23 Discharge Date: 12/06/23 Disposition: AMA-LEFT AGAINST MEDICAL ADVIC Discharge Condition: FAIR Reason for Admission: chest pain r/o Brief History of Present Illness: Diagnosis Chest Pain r/o ACS HPI 12/05/23 Octavio Bueno is an 78 year old male with Pmhx BILE DUCT CANCER; Gout; Hyperlipidemia, Hypertension, [place] now s/p heart transplant 2006, Migraines r/t head injury, Chronic kidney disease stage V, and Diabetes - IDDM, who presented to the ED with c/o chest pain that started one hour [employer]. He reports his chest pain as non-reporducible. His last visit to the ED here at [facility] was 11/19 for chest pain as well. His is at the bedside and a good historian. She reports receiving a phone call from Octavio under distress d/t chest pain. She gave his gasx trying to help relieve the pain. His chest pain remained so she brought him into the ED. She has not contacted the heart transplant team, she believed we would have him transferred if it was needed. She plans to call the heart transplant team in the morning to update them. She will also bring his rejection medication for him to take during this admission. 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 Faulkner at [facility]. Initial vitals: BP 163 / 70; Pulse 66; Resp 13; Temp 97.5; Pulse Ox 98% on R/A. Laboratory evaluation White blood cells 4, H&H 9/29, platelets 93, BUN/creatinine 73/3.17, GFR 19, troponin 12.9, BNP 4619. EKG Rate is 66 beats/min. Rhythm is regular. QRS Lorraine is Normal. ME interval is normal at 148 msec. QRS interval is normal at 82 msec. QT interval is normal at 406 msec. No Q waves. T waves are Normal. Clinical impression: Normal ECG and Normal Sinus Rhythm Chest xray reports "The lungs appear clear of acute infiltrate. The heart is mildly enlarged. Mild chronic elevation left hemidiaphragm. Postsurgical changes involve the chest. IMPRESSION: No acute abnormalities displayed." Octavio will be admitted to hospitalist service for further evaluation of CP r/o ACS. Dr. Wood consulted. Hospital Course: Octavio Bueno is a pleasant 78 year old male with a past medical history significant for bile duct cancer, Gout, Hyperlipidemia, Hypertension, [place] now s/p heart transplant 2006, Migraines r/t head injury, Chronic kidney disease stage V, and Diabetes - IDDM who was admitted to the [facility] on 12/05/23 for Chest pain r/o ACS. Octavio presented to the ED with chief complaint of chest pain more severe than he experienced in the past since his multiple heart surgeries. He called his for help, when she has the phone he could not speak due to so much distress. She arrived home and decided to bring him to the ED based on his severe chest pain. Upon arrival to the ED, he continued to complain of chest pain and the decision was made for admission based on the severity of his chest pain and his complex cardiac history. The plan was to monitor his troponins throughout the night, perform an echo, and consult cardiology for additional recommendations. Octavio felt better and decided he wanted to go home. His was present the entire stay, and felt comfortable taking him home with the option of bringing him back to the ED if anything should arise. Octavio was informed that leaving the facility without having additional evaluations by cardiology is life threatening. The increased risk of was explained to him and his . He remained determined to go home despite this detailed discussion. On 12/05/23, Octavio refused to continue medical care and decided to sign the AMA form and left the facility. Vital Signs/Physical Exam: Temp Pulse Resp BP Pulse Ox 97.5 F 63 18 157/73 H 12/05/23 18:33 12/05/23 18:47 12/05/23 18:47 12/05/23 18:47 Laboratory Data at Discharge: WBC Cancelled 12/05/23 Unknown Hgb Cancelled 12/05/23 Unknown Hct Cancelled 12/05/23 Unknown Plt Count Cancelled 12/05/23 Unknown PT 12.7 SECONDS (9.5-12.5) H 12/05/23 14:05 INR 1.16 12/05/23 14:05 Sodium Cancelled 12/05/23 Unknown Potassium Cancelled 12/05/23 Unknown BUN Cancelled 12/05/23 Unknown Creatinine Cancelled 12/05/23 Unknown Glucose Cancelled 12/05/23 Unknown Magnesium 2.4 mg/dL (1.6-2.4) 12/05/23 14:05 Total Bilirubin 0.5 mg/dL (0.2-1.0) 12/05/23 14:05 AST 30 U/L (15-37) 12/05/23 14:05 ALT 12 U/L (16-61) L 12/05/23 14:05 Alkaline Phosphatase 81 U/L (45-117) 12/05/23 14:05 Triglycerides Cancelled 12/05/23 15:43 Cholesterol Cancelled 12/05/23 15:43 HDL Cholesterol Cancelled 12/05/23 15:43 Cholesterol/HDL Ratio Cancelled 12/05/23 15:43 Home Medications: ALPRAZolam [Xanax*] 0.5 mg PO BEDTIME 05/01/15 Aspirin [Aspirin EC 81 MG] 81 mg PO 30 MIN BEFORE HS 05/01/15 Calcium Carb/Vitamin D3/Vit K1 [Calcium + D Soft Chewable Tab] 600 mg PO BID 05/01/15 Folic Acid 1 mg PO DAILY 05/01/15 Gabapentin Enacarbil [Horizant] 400 mg PO TID 05/01/15 Insulin 70/30 NPH/Reg Human [Novolin 70/30*] 12 unit SQ BID 05/01/15 Magnesium Oxide [Mag 0X*] 400 mg PO BID 05/01/15 Potassium Chloride [Micro-K] 10 meq PO DAILY 05/01/15 Pravastatin [Pravachol*] 80 mg PO 30 MIN BEFORE HS 05/01/15 Tacrolimus [Prograf] 1 mg PO BID 05/01/15 Tamsulosin [Flomax*] 0.4 mg PO 30 MIN BEFORE HS 05/01/15 Thiamine HCl 100 mg PO DAILY 05/01/15 Torsemide [Demadex*] 40 mg PO DAILY 05/01/15 prednisoLONE [Millipred] 5 mg PO DAILY 05/01/15 Cranberry Conc/C/Bacill Coag [Cranberry Tablet] 4,200 mg PO BEDTIME 12/27/18 Ferrous Sulfate [Ferrous Sulfate*] 1 tab PO DAILY 12/27/18 Finasteride [Proscar*] 1 tab PO DAILY 12/27/18 metOLazone [Metolazone] 2.5 mg PO PRN PRN 12/27/18 Galantamine HBr [Galantamine ER] 8 mg PO DAILY 12/05/23 Hydrocodone/Acetaminophen [Hydrocodon-Acetaminophn 10-325] 1 each PO PRN 12/05/23 Losartan Potassium [Cozaar] 50 mg PO DAILY 12/05/23 Montelukast Sodium [Singulair] 10 mg PO DAILY 12/05/23 Pantoprazole [Protonix Tab] 40 mg PO DAILY 12/05/23 Sertraline [Zoloft] 50 mg PO DAILY 12/05/23 Tramadol HCl [Ultram] 50 mg PO PRN 12/05/23 Followup: Berenice Mancia MD [Primary Care Provider] -
== END 2023-12-05 18:29 | disposition left against medical advice (07) ==
LOC: ER 13:44 → ERHOLD 15:43
PROVIDERS: ADMIT Internal Medicine; ATTEND Internal Medicine
DX: R07.9 Chest pain, unspecified (principal); E11.22 Type 2 diabetes mellitus with diabetic chronic kidney disease; I12.9 Hypertensive chronic kidney disease with stage 1 through stage 4 chronic kidney disease, or unspecified chronic kidney disease; I25.2 Old myocardial infarction; E78.5 Hyperlipidemia, unspecified; M10.9 Gout, unspecified; G43.909 Migraine, unspecified, not intractable, without status migrainosus; D69.6 Thrombocytopenia, unspecified; N18.4 Chronic kidney disease, stage 4 (severe); Z85.09 Personal history of malignant neoplasm of other digestive organs
CPT/HCPCS: 36415; 71045; 80048; 80076; 83735; 83880; 84484; 85025; 85610; G0378